=== PATIENT | female | born 1950 | race Caucasian/White ===

== ENCOUNTER → 2023-04-28 12:41 | Outpatient (BNVA) | payer MEDICARE, SELFPAY | PROVIDERS: PCP Family Medicine; Referring Provider Family Medicine; Visit Provider Student in an Organized Health Care Education/Training Program | DX: G47.34 Idiopathic sleep related nonobstructive alveolar hypoventilation (principal); J44.9 Chronic obstructive pulmonary disease, unspecified; Z79.51 Long term (current) use of inhaled steroids; F17.210 Nicotine dependence, cigarettes, uncomplicated | CPT/HCPCS: 94618; 99204 ==

== ENCOUNTER → 2023-08-03 12:47 | Outpatient (BNVA) | payer OTHER, SELFPAY | PROVIDERS: PCP Family Medicine; Referring Provider Family Medicine; Visit Provider Physician Assistant Surgical | DX: J44.9 Chronic obstructive pulmonary disease, unspecified (principal); G47.34 Idiopathic sleep related nonobstructive alveolar hypoventilation; F17.210 Nicotine dependence, cigarettes, uncomplicated | CPT/HCPCS: 99214 ==

== ENCOUNTER 2024-06-22 02:25 | Outpatient (CLI) | payer MEDICARE, SELFPAY ==
--- NOTE | 2024-06-22 08:53 | DI.MAMMO_ITS ---
Exam(s) MAMMO SCREENING EXAM: MAMMO SCREENING CLINICAL HISTORY: screening,z12.39 TECHNIQUE: Mammograms were interpreted according to the usual protocol including computer analysis w [employer] CAD system, tomosynthesis and C-view imaging. COMPARISON: 2017 and 2022 FINDINGS: The breasts are composed of mainly fatty density , Breast Density category A. No suspicious masses or suspicious microcalcifications are seen. No skin thickening or abnormal axillary lymph nodes are seen. There has been no significant change from prior exams. IMPRESSION: BI-RADS Category 1, Negative mammogram Yearly screening mammography is recommended. Breast Density - Category A, fatty density. A negative radiographic report should not delay biopsy if a dominant or clinically suspicious mass is present. Up to ten percent of cancers are not identified on mammography. A negative report may reinforce clinical impression. Adenosis and dense breasts may obscure an underlying neoplasm. False positive reports average 6 to 10%. Patient will receive a letter notifying them of these results.
== END 2024-06-22 02:45 ==
LOC: DI 02:25
PROVIDERS: PCP Nurse Practitioner Family; Visit Provider Nurse Practitioner Family
DX: Z12.31 Encounter for screening mammogram for malignant neoplasm of breast (principal); G25.81 Restless legs syndrome; L60.0 Ingrowing nail; L60.2 Onychogryphosis; M79.675 Pain in left toe(s); E11.9 Type 2 diabetes mellitus without complications; B35.1 Tinea unguium; L60.8 Other nail disorders
CPT/HCPCS: 11750; 77063; 77067; 99214

== ENCOUNTER 2024-06-22 03:16 | Outpatient (CLI) | payer MEDICARE, SELFPAY ==
[2024-06-22 08:18] LABS: HCT 39.9 % (36.0-46.0); MCHC 32.6 % (32.0-36.0); MCV 89 fL (80-95); MPV 8.9 fL (8.0-11.0); Platelet Count 357 10^3/uL (130-400); RBC 4.49 10^6/uL (3.93-5.22); RDW 14.5 % (11.7-14.6); RDW-SD 46.4 fL; WBC 11.56 10^3/uL (4.4-10.8)
[2024-06-22 08:48] LABS: ALT 13 U/L (14-59); AST 14 U/L (15-37); Albumin 3.3 g/dL (3.4-5.0); Alkaline Phosphatase 106 U/L (46-116); Anion Gap 5.4 mmol/L (3-11); BUN 25 mg/dL (7-18); CO2 36.6 mmol/L (21.0-32.0); CREATININE 1.2 mg/dL (0.55-1.02); Calcium 9.9 mg/dL (8.5-10.1); Calculated LDL 99 mg/dL (<100); Chloride 95 mmol/L (98-107); Cholesterol 181 mg/dL (<200); Estimated GFR 48.09 (mL/min/1.73m2); Ferritin 47 ng/mL (8-252); Glucose 108 mg/dL (74-106); HDL Cholesterol 55 mg/dL (40-60); Potassium 3.1 mmol/L (3.5-5.1); Sodium 137 mmol/L (136-145); Total Protein 7.7 g/dL (6.4-8.2); Triglyceride 135 mg/dL (<150)
== END 2024-06-22 03:17 | disposition home or self-care (01) ==
LOC: LBO 03:16
PROVIDERS: PCP Nurse Practitioner Family; Visit Provider Nurse Practitioner Family
DX: E11.9 Type 2 diabetes mellitus without complications (principal); R79.0 Abnormal level of blood mineral; G25.81 Restless legs syndrome
CPT/HCPCS: 36415; 80053; 80061; 85027; 82728

== ENCOUNTER 2024-07-07 19:53 | Emergency (ER) | payer MEDICARE, SELFPAY ==
[2024-07-07] VITALS (19 sets, daily range): BP systolic 97–116; BP diastolic 53–92; PULSE 85–102; RESP 15–28; TEMP 36.3; O2SAT 80–94
--- NOTE | 2024-07-07 20:00 | DI.CT_ITS ---
Exam(s) CT ABDOMEN PELVIS W EXAM: CT ABDOMEN PELVIS W CLINICAL HISTORY: left sided abdominal pain TECHNIQUE: Imaging Protocol: Axial computed tomography images with coronal and sagittal reformatted images were created and reviewed. CONTRAST MATERIAL: Intravenous: Omnipaque 350 Contrast volume:75 mL Oral: No COMPARISON: CT CT ABD/PELVIS W/ CONTR NO PO from 05/24/2024 FINDINGS: ABDOMEN: Lung Bases: No acute abnormality. Liver: Normal density. No measurable mass. There is a stable tiny cyst in the right lobe of the liver . No follow-up is recommended. Portal, Superior Mesenteric, and Splenic Veins: Unremarkable. Gallbladder and Biliary Tract: No radiodense calculus or dilation. Pancreas: Normal density, no abnormal calcifications or inflammatory process. Spleen: Normal. Adrenals: No masses seen. Kidneys: Normal size, contour and axis. No radiodense stones or obstructive uropathy. No masses seen. Abdominal Aorta: Abdominal portion non-dilated. Atherosclerotic calcification is present. Bowel: There are diverticula seen in the colon without evidence of acute diverticulitis. There is a normal appendix. There is a left-sided spigelian hernia containing a short segment of small bowel. The small bowel proximally is dilated with air-fluid levels. The distal small bowel is of normal vania iber. The findings are consistent with obstruction. There is no evidence of pneumatosis. The stoma ch is distended. Postsurgical changes are again seen in the stomach. Appendix is unremarkable. Peritoneal Cavity: No ascites, collection or mesenteric inflammatory response. No free air. Lymph Nodes: Within normal limits. Bones: Within normal limits for the patient's age. There is again seen anterior subluxation of L4 on L5 and L5 on S1. Soft Tissues: There is a small fat containing left inguinal hernia and small fat containing umbilical hernia. PELVIS: Bladder: Symmetric distention, no gross wall thickening. Reproductive Organs: The uterus is absent. Lymph Nodes: Within normal limits. Bones: Within normal limits for the patient's age. IMPRESSION: Left-sided spigelian hernia with an incarcerated small bowel loop and proximal small bowel obstructio n. No evidence of pneumoperitoneum or pneumatosis. RADIATION DOSE DELIVERED: 451.61mGy.cm Total DLP DATA REPOSITORY: All CT scans at this facility are submitted to the National Radiology Data Registry (NRDR) Dose Index Registry (DIR) with the [employer] [place] [employer] ([employer]). RADIATION OPTIMIZATION: All CT scans at this facility use at least one of these dose optimization te chniques: automated exposure control; mA and/or kV adjustment per patient size (includes targeted exa ms where dose is matched to clinical indication); or iterative reconstruction.
--- OUTSIDE RECORDS SUMMARY | 2024-07-07 20:02 | XMS_ITS | Continuity of Care Document ---
Author Organization [facility] Address [address] [place] [address] Care Team Providers Care Finished Goods Planner Name Role Phone Dilan Hernandez Primary Care Physician Encounter [facility] Date(s): 09/28/23 - 09/28/23 [facility] [address] [place] [address] Discharge Disposition: Home Allergies, Adverse Reactions, Alerts No Known Medication Allergies Assessment and Plan Future Appointments Future Scheduled Tests Laboratory* Thyroid Stimulating Hormone 08/26/23 * Drug Screen Urine 09/28/23 Immunizations Given and Recorded Vaccine Date Status Refusal Reason influenza, unspecified formulation 02/16/23 Record ed influenza, unspecified formulation 1 04/09/20 Mika rded influenza, unspecified formulation 2 03/24/19 Mika rded influenza, unspecified formulation 3 05/09/16 Mika rded pneumococcal 23-polyvalent vaccine 5 05/15/22 Mika rded pneumococcal 23-polyvalent vaccine 08/14/08 Record ed SARS-COV-2 (COVID-19) vaccine, unspecifi 6 03/18/22 Recorded influenza virus vaccine, live 04/30/21 Recorded influenza virus vaccine, live 03/16/18 Recorded influenza virus vaccine, live 05/25/15 Recorded SARS-CoV-2 (COVID-19) mRNA-1273 vaccine 09/17/20 R ecorded SARS-CoV-2 (COVID-19) mRNA-1273 vaccine 08/21/20 R ecorded tetanus-diphth toxoids (Td) adult/adol 10/18/18 Re corded pneumococcal 13-valent conjugate vaccine 04/19/18 Recorded influenza virus vaccine, inactivated 05/03/17 Mika rded influenza virus vaccine, inactivated 04/26/14 Mika rded influenza virus vaccine, inactivated 03/10/13 Mika rded influenza virus vaccine, inactivated 03/25/12 Mika rded influenza virus vaccine, inactivated 03/19/10 Mika rded influenza virus vaccine, inactivated 03/08/10 Mika rded influenza virus vaccine, inactivated 05/21/09 Mika rded influenza virus vaccine, inactivated 05/16/09 Mika rded influenza virus vaccine, inactivated 03/16/08 Mika rded influenza virus vaccine, inactivated 03/17/07 Mika rded zoster vaccine live 10/06/12 Recorded rubella virus vaccine 06/08/00 Recorded hepatitis B adult vaccine 06/08/00 Recorded measles/mumps/rubella virus vaccine 06/08/00 Recor ded varicella virus vaccine 06/08/00 Recorded Not Given Vaccine Date Status Refusal Reason influenza, unspecified formulation 4 01/29/22 Not Given Patient Refuses 1Result Comment: influenza, high-dose, quadrivalent VIS given: 04-09-2020 VIS published date: Inactivated Influenza 01/20/2019 Administered by NOEMÍ HERNANDEZ, [employer] Section Supervisor 04-09-2020 2Result Comment: influenza, trivalent, adjuvanted VIS given: 03-24-2019 VIS published date: Inactivated Influenza 01/20/2019 Administered by SOWMYA MCMILLAN, [employer] Section Supervisor 03-24-2019 3Result Comment: influenza, high dose seasonal Administered by: SULTANA 4Result Comment: William 5Result Comment: Moderna bivalent, 6+ months, blue cap 6Result Comment: influenza, high-dose, quadrivalent Patient Declined Last Modified by SOWMYA MCMILLAN, [employer] Section Supervisor 06-21-2020, 11:26 Medications Albuterol (Eqv-ProAir HFA) 90 mcg/inh inhalation aerosol 2 puffs, Inhale, every 4 hr, # 8.5 g, 6 Refill(s), Pharmacy: [facility], 155, cm, 05/04/23 10:37:00 EST, Height, 81.6, kg, 07/01/23 15:10:00 EST, Weight Dosing Start Date: 07/01/23 Status: Ordered apixaban 5 mg oral tablet 5 mg = 1 tab, Oral, BID, # 60 tab, 3 Refill(s), Pharmacy: [id number], 155, cm, 05/04/23 10:37:00 EST, Height, 81.6, kg, 07/01/23 15:10:00 EST, Weight Dosing Start Date: 07/13/23 Status: Ordered Breztri Aerosphere 160 mcg-9 mcg-4.8 mcg/inh inhalation aerosol 2 puffs, Inhale, BID, rinse mouth and throat after use, # 5.9 g, 0 Refill(s) Start Date: 09/07/23 Status: Ordered COPD J44.1 COPD J44.1, Please include tubing and mouthpiece, Supply, See instructions, # 1 EA, 0 Refill(s) Start Date: 12/15/22 Status: Ordered escitalopram 10 mg oral tablet 10 mg = 1 tab, Oral, Daily, TAKE 1 TABLET BY MOUTH ONCE DAILY, # 90 tab, 3 Refill(s), Pharmacy: [facility]156, 155, cm, 05/04/23 10:37:00 EST, Height, 81.6, kg, 07/01/23 15:10:00 EST, Weight Dosing Start Date: 07/01/23 Status: Ordered ferrous sulfate 325 mg (65 mg elemental iron) oral delayed release tablet 325 mg = 1 tab, Oral, Daily, # 90 tab, 0 Refill(s), Pharmacy: [place] [id number], 156, cm, 03/27/22 9:33:00 EDT, Height/Length Dosing, 68.04, kg, 03/27/22 9:33:00 EDT, Weight Dosing Start Date: 08/15/22 Status: Ordered ibuprofen 200 mg =, Oral, PRN as needed for pain, 0 Refill(s) Start Date: 07/01/23 Status: Ordered ipratropium-albuterol 0.5 mg-2.5 mg/3 mL inhalation solution See Instructions, USE 1 AMPULE IN NEBULIZER EVERY 4 HOURS NEEDED FOR SHORTNESS OF BREATH FOR WHEEZING, # 90 mL, 4 Refill(s), Pharmacy: [facility] 4156, 155, cm, 05/04/23 10:37:00 EST, Height, 81.51, kg, 07/23/23 10:33:00 EST, Weight Dosing Start Date: 08/03/23 Status: Ordered Medrol Dosepak 4 mg oral tablet 1 packets, Oral, Daily, as directed on package labeling, # 21 tab, 0 Refill(s), Pharmacy: [place] [id number], 153.3, cm, 09/17/23 12:47:00 EDT, Height, 81.65, kg, 09/17/23 12:54:00 EDT, Weight Dosing Start Date: 09/28/23 Stop Date: 10/04/23 Status: Ordered omeprazole 40 mg oral delayed release capsule 40 mg = 1 cap, Oral, Daily, # 90 cap, 3 Refill(s), Pharmacy: [facility], 155, cm, 12/04/22 20:52:00 EDT, Height/Length Dosing, 69.4, kg, 12/04/22 20:52:00 EDT, Weight Dosing Start Date: 01/29/23 Status: Ordered Oxygen Therapy Supply, See instructions, # 1 EA, 0 Refill(s) Start Date: 11/19/22 Status: Ordered pramipexole 1 mg oral tablet See Instructions, Take 2 tablets by mouth twice daily, # 120 tab, 6 Refill(s), Pharmacy: [place] [id number], 155, cm, 05/04/23 10:37:00 EST, Height, 78.97, kg, 05/14/23 10:34:00 EST, Weight Dosing Start Date: 05/29/23 Status: Ordered torsemide 10 mg oral tablet 10 mg = 1 tab, Oral, Daily, # 30 tab, 0 Refill(s), Pharmacy: [place] [address], 153.3, cm, 09/17/23 12:47:00 EDT, Height, 81.65, kg, 09/17/23 12:54:00 EDT, Weight Dosing Start Date: 09/17/23 Status: Ordered traMADol 50 mg oral tablet 100 mg = 2 tab, Oral, every 8 hr, PRN as needed for pain, # 168 tab, 0 Refill(s), Pharmacy: [place] [address], 154, cm, 08/21/23 11:26:00 EDT, Height, 82.7, kg, 08/27/23 8:05:00 EDT, Weight Dosing Start Date: 08/31/23 Status: Ordered Vitamin C 500 mg oral tablet 500 mg = 1 tab, Oral, Daily, # 90 tab, 0 Refill(s), Pharmacy: [facility], 156, cm, 03/27/22 9:33:00 EDT, Height/Length Dosing, 68.04, kg, 03/27/22 9:33:00 EDT, Weight Dosing Start Date: 08/15/22 Status: Ordered Problem List Condition Confirmation Course Effective Dates Status H ealth Status Informant Anxiety disorder Confirmed Active Chronic obstructive lung disease Confirmed Active Chronic pain disorder Confirmed Active Claustrophobia Confirmed Active Excessive daytime sleepiness Confirmed Active Degeneration of lumbar intervertebral disc 1 Confirmed 08/23/20 Active Diarrhea Confirmed 09/06/18 Active SOB (shortness of breath) on exertion Confirmed Active Gastroesophageal reflux disease Confirmed Active Right hip pain Confirmed Active 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 Hyponatremia Confirmed Active Insomnia Confirmed Active Low back pain Confirmed 10/02/20 Active Lumbar spondylosis 2 Confirmed 10/02/20 Active Lumbosacral radiculopathy Confirmed Active Mixed urinary incontinence Confirmed Active Nicotine dependence Confirmed Active Overweight Confirmed Active Peptic ulcer Confirmed Active Pyloric stenosis Confirmed 01/19/19 Active Restless legs Confirmed 03/05/20 Active Hypoxemia associated with sleep Confirmed Active Tobacco user Confirmed Active 1Outside Source Comment: Overview: Added automatically from request for surgery [id number] 2Outside Source Comment: Overview: Added automatically from request for surgery [id number] Procedures Procedure Date Related Diagnosis Body Site Status Vaginal total hysterectomy, A&P repair, uterosacral vag-vault suspension, prolapse 1 04/20/21 Completed Laparoscopic bypass gastroje junostomy 2 02/29/20 Completed EGD - Esophagogastroduodenoscopy 3 08/08/19 Completed Colonoscopy 4 04/12/19 Completed Pyloroplasty 5 03/22/10 Completed Right-Oophorectomy 6 06/07/79 Comp leted Ectopic w/ left salpingectomy 7 Completed Tubal ligation Completed 1A&P repair, uterosacral vag-vault suspension, prolapse [facility] 3gastritis, 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 01/03/15 right sided diverticulosis, polyp; 05/17/2009, 5 year call-back 5[facility] 6right, d/t cyst [id number] with Left salpingectomy Social History Social History Type Response Smoking Status Smoking tobacco use: Current everyday tobacco user;Never; Number used per day: 1.5 PPD; entered on: 06/15/23 Sex Female History and physical note * Event Display: History and Physical Update Authored Date: [id number] Patient Care team information Care Team Personnel Name: Dilan Hernandez MD Position: Physician Member Role: Informed Provider Address: Address: [address] Care Team Related Persons Name: LIAM QUIGLEY Address: [address] [address] Address: Home [address] [place] [phone] Address: Mailing [address] [place] [address] [phone] Name: GRACIELA COUCH Address: Home [address] [place] [phone]
--- OUTSIDE RECORDS SUMMARY | 2024-07-07 20:02 | XMS_ITS | Continuity of Care Document ---
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 COPD exacerbat ion Comment: Diagnosis: Shortness of breath Comment: Future Appointments Future Scheduled Tests Laboratory* Basic Metabolic Panel 09/29/22 * Hemoglobin A1c 09/29/22 Functional Status 12/04/22 Other exposure to Infectious Disease Non e Immunizations Given and Recorded Vaccine Date Status Refusal Reason pneumococcal 23-polyvalent vaccine 1 05/15/22 Mika rded pneumococcal 23-polyvalent vaccine 08/14/08 Record ed influenza virus vaccine, live 04/30/21 Recorded influenza virus vaccine, live 03/16/18 Recorded influenza virus vaccine, live 05/25/15 Recorded SARS-CoV-2 (COVID-19) mRNA-1273 vaccine 09/17/20 R ecorded SARS-CoV-2 (COVID-19) mRNA-1273 vaccine 08/21/20 R ecorded influenza, unspecified formulation 2 04/09/20 Mika rded influenza, unspecified formulation 3 03/24/19 Mika rded influenza, unspecified formulation 4 05/09/16 Mika rded tetanus-diphth toxoids (Td) adult/adol 10/18/18 Re corded [...] Date Status Refusal Reason influenza, unspecified formulation 5 01/29/22 Not Given Patient Refuses 1Result Comment: William 2Result Comment: influenza, high-dose, quadrivalent VIS given: 04-09-2020 VIS published date: Inactivated Influenza 01/20/2019 Administered by NOEMÍ HERNANDEZ Grab Setter 04-09-2020 3Result Comment: influenza, trivalent, adjuvanted VIS given: 03-24-2019 VIS published date: Inactivated Influenza 01/20/2019 Administered by SOWMYA MCMILLAN Grab Setter 03-24-2019 4Result Comment: influenza, high dose seasonal Administered by: SULTANA 5Result Comment: influenza, high-dose, quadrivalent Patient Declined Last Modified by SOWMYA MCMILLAN Grab Setter 06-21-2020, 11:26 Medications Albuterol (Eqv-ProAir HFA) 90 mcg/inh inhalation aerosol 2 puffs, Inhale, every 4 hr, # 8.5 g, 6 Refill(s), Pharmacy: [facility], 156, cm, 03/27/22 9:33:00 EDT, Height/Length Dosing, 68.04, kg, 03/27/22 9:33:00 EDT, Weight Dosing Start Date: 09/29/22 Status: Ordered Ativan 0.5 mg oral tablet See Instructions, take 30-60 minutes prior to procedure., # 1 tab, 0 Refill(s), Pharmacy: [facility], 156, cm, 03/27/22 9:33:00 EDT, Height/Length Dosing, 68.04, kg, 03/27/22 9:33:00 EDT, Weight Dosing Start Date: 09/29/22 Status: Ordered diazePAM 2 mg oral tablet See Instructions, Take one tablet 1 hr prior to procedure and 1 tablet right before procedure., # 2tab, 0 Refill(s), Pharmacy: [place] [address], 156, cm, 03/27/22 9:33:00 EDT, Height/Length Dosing, 68.04, kg, 03/27/22 9:33:00 EDT, Weight Dosing Start Date: 10/10/22 Status: Ordered doxycycline hyclate 100 mg oral capsule 100 mg = 1 cap, Oral, BID, X 7 days, # 14 cap, 0 Refill(s), 12/11/22 22:46:00 EDT, Pharmacy: [facility], 155, cm, 12/04/22 20:52:00 EDT, Height/Length Dosing, 69.4, kg, 12/04/22 20:52:00 EDT, Weight Dosing Start Date: 12/04/22 Stop Date: 12/11/22 Status: Ordered escitalopram 10 mg oral tablet 10 mg = 1 tab, Oral, Daily, TAKE 1 TABLET BY MOUTH ONCE DAILY, # 90 tab, 3 Refill(s), Pharmacy: [facility], 156, cm, 03/27/22 9:33:00 EDT, Height/Length Dosing, 68.04, kg, 03/27/22 9:33:00EDT, Weight Dosing Start Date: 05/12/22 Status: Ordered ferrous sulfate 325 mg (65 mg elemental iron) oral delayed release tablet 325 mg = 1 tab, Oral, Daily, # 90 tab, 0 Refill(s), Pharmacy: [facility], 156, cm, 03/27/22 9:33:00 EDT, Height/Length Dosing, 68.04, kg, 03/27/22 9:33:00 EDT, Weight Dosing Start Date: 08/15/22 Status: Ordered nystatin 100,000 units/mL oral suspension 400,000 units = 4 mL, Oral, QID, # 120 mL, 0 Refill(s), Pharmacy: [facility], 156, cm, 03/27/22 9:33:00 EDT, Height/Length Dosing, 68.04, kg, 03/27/22 9:33:00 EDT, Weight Dosing Start Date: 09/29/22 Stop Date: 10/06/22 Status: Ordered omeprazole 40 mg oral delayed release capsule 40 mg = 1 cap, Oral, Daily, 0 Refill(s) Start Date: 11/11/21 Status: Ordered Oxygen Therapy Supply, See instructions, # 1 EA, 0 Refill(s) Start Date: 11/19/22 Status: Ordered pramipexole 3 mg oral tablet, extended release 180 EA, TAKE 1 TABLET BY MOUTH TWICE DAILY, 0 Refill(s) Start Date: 07/10/22 Status: Ordered predniSONE 20 mg oral tablet 40 mg = 2 tab, Oral, Daily, # 8 tab, 0 Refill(s), Pharmacy: [facility], 155, cm, 12/04/22 20:52:00 EDT, Height/Length Dosing, 69.4, kg, 12/04/22 20:52:00 EDT, Weight Dosing Start Date: 12/04/22 Status: Ordered pregabalin 50 mg oral capsule 50 mg = 1 cap, Oral, TID, # 90 cap, 0 Refill(s) Start Date: 09/29/22 Status: Ordered Tessalon Perles 100 mg oral capsule 100 mg = 1 cap, Oral, TID, PRN as needed for cough, # 21 cap, 0 Refill(s), Pharmacy: [facility], 156, cm, 03/27/22 9:33:00 EDT, Height/Length Dosing, 68.04, kg, 03/27/22 9:33:00 EDT, Weight Dosing Start Date: 11/07/22 Stop Date: 11/14/22 Status: Ordered Trelegy Ellipta 100 mcg-62.5 mcg-25 mcg/inh inhalation powder 1 puffs, Inhale, Daily, at the same time every day, # 60 EA, 4 Refill(s), Pharmacy: [facility], 156, cm, 03/27/22 9:33:00 EDT, Height/Length Dosing, 68.04, kg, 03/27/22 9:33:00 EDT, WeightDosing Start Date: 10/13/22 Status: Ordered Trelegy Ellipta 100 mcg-62.5 mcg-25 mcg/inh inhalation powder INHALE 1 PUFF ONCE DAILY AT THE SAME TIME EACH DAY Start Date: 10/27/22 Status: Ordered Trelegy Ellipta 100 mcg-62.5 mcg-25 mcg/inh inhalation powder See Instructions, INHALE 1 PUFF ONCE DAILY AT THE SAME TIME EACH DAY, # 1 EA, 12 Refill(s) Start Date: 10/28/22 Status: Ordered Vitamin C 500 mg oral tablet 500 mg = 1 tab, Oral, Daily, # 90 tab, 0 Refill(s), Pharmacy: [facility], 156, cm, 03/27/22 9:33:00 EDT, Height/Length Dosing, 68.04, kg, 03/27/22 9:33:00 EDT, Weight Dosing Start Date: 08/15/22 Status: Ordered Mental Status 12/04/22 Eye Opening Response [place] Spontaneous ly Best Verbal Response Whit Oriented Best Motor Response Whit Obeys comman ds [place] Coma Score 15 Problem List Condition Confirmation Course Effective Dates Status H ealth Status Informant Anxiety disorder Confirmed Active Chronic obstructive lung disease Confirmed Active Claustrophobia Confirmed Active Excessive daytime sleepiness Confirmed Active Diarrhea Confirmed 09/06/18 Active Gastroesophageal reflux disease Confirmed Active Right hip pain Confirmed Active 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 Insomnia Confirmed Active Lumbosacral radiculopathy Confirmed Active Mixed urinary incontinence Confirmed Active Nicotine dependence Confirmed Active Overweight Confirmed Active Pyloric stenosis Confirmed 01/19/19 Active Restless legs Confirmed 03/05/20 Active Procedures Procedure Date Related Diagnosis Body Site [...] 5 year call-back 5Sisson 6right, d/t cyst with Left salpingectomy Vital Signs Most recent to oldest [Reference Range]: 1 2 Temperature Temporal Artery [36-38 Deg C ] 35.7 Deg C *LOW* (12/04/22 8:48 PM) Peripheral Pulse Rate [60-100 bpm] 89 bp m (12/04/22 10:59 PM) 81 bpm (12/04/22 8:48 PM) Respiratory Rate [12-24 br/min] 22 br/mi n (12/04/22 8:48 PM) Blood Pressure [90-140/60-90 mmHg] 154/8 7mmHg *HI* (12/04/22 10:59 PM) 108/54mmHg (12/04/22 8:48 PM) Weight Dosing 69.40 kg (12/04/22 8:52 PM) Weight Estimated 69.40 kg (12/04/22 8:48 PM) Height/Length Dosing 155.000 cm (12/04/22 8:52 PM) Height/Length Estimated 155.000 cm (12/04/22 8:48 PM) Social History Social History Type Response Smoking Status Smoking tobacco use: Current everyday tobacco user;Never; Number used per day: 1.5 PPD; entered on: 03/27/22 Sex Female Hospital Discharge Instructions Patient Education 12/04/2022 21:45:43 Chronic Obstructive Pulmonary Disease Exacerbation, [id number] Chronic Obstructive Pulmonary Disease Exacerbation Chronic obstructive pulmonary disease (COPD) is a long-term (chronic) lung problem. In COPD, the flow of air from the lungs is limited. COPD exacerbations are times that breathing gets worse and you need more than your normal treatment. Without treatment, they can be life-threatening. If they happen often, your lungs can become more damaged. What are the causes? Having infections that affect your airways and lungs. ??? Being exposed to: ??? Smoke. ??? Air pollution. ??? Chemical fumes. ??? Dust. ??? Things that can cause an allergic reaction (allergens). ??? Not taking your usual COPD medicines as told. ??? Having medical problems already, such as heart failure or infections not involving the lungs. In many cases, the cause is not known. What increases the risk? Smoking. ??? Being an older adult. ??? Having frequent prior COPD exacerbations. What are the signs or symptoms? Increased coughing. ??? Increased mucus from your lungs. ??? Increased wheezing. ??? Increased shortness of breath. ??? Fast breathing and finding it hard to breathe. ??? Chest tightness. ??? Less energy than usual. ??? Sleep disruption from symptoms. ??? Confusion. ??? Increased sleepiness. Often, these symptoms happen or get worse even with the use of medicines. How is this treated? Treatment for this condition depends on how bad it is and the cause of the symptoms. You may need to stay in the hospital for treatment. Treatment may include: ??? Taking medicines. ??? Using oxygen. ??? Being treated with different ways to clear your airway, such as using a mask to deliver oxygen. Follow these instructions at home: Medicines ??? Take mujm-ezw-mvboobj and prescription medicines only as told by your doctor. ??? Use all inhaled medicines the correct way. ??? If you were prescribed an antibiotic or steroid medicine, take it as told by your doctor. Do not stop taking it even if you start to feel better. Lifestyle ??? Do not smoke or use any products that contain nicotine or tobacco. If you need help quitting, ask your doctor. ??? Eat healthy foods. ??? Exercise regularly. ??? Get enough sleep. Most adults need 7 or more hours per night. ??? Avoid tobacco smoke and other things that can bother your lungs. ??? Several times a day, wash your hands with soap and water for at least 20 seconds. If you cannotuse soap and water, use hand looping inspector. This may help keep you from getting an infection. ??? During flu season, avoid areas that are crowded with people. General instructions ??? Drink enough fluid to keep your pee (urine) pale yellow. Do not do this if your doctor has toldyou not to. ??? Use a cool mist machine (vaporizer). ??? If you use oxygen or a machine that turns medicine into a mist (nebulizer), continue to use it as told. ??? Keep all follow-up visits. How is this prevented? Keep up with shots (vaccinations) as told by your doctor. Be sure to get a yearly flu (influenza) shot. ??? If you smoke, quit smoking. Smoking makes the problem worse. ??? Follow all instructions for rehabilitation. These are steps you can take to make your body workbetter. ??? Work with your doctor to develop and follow an action plan. This tells you what steps to take when you experience certain symptoms. Contact a doctor if: ??? Your COPD symptoms get worse than normal. Get help right away if: ??? You are short of breath and it gets worse, even when you are resting. ??? You have trouble talking. ??? You have chest pain. ??? You cough up blood. ??? You have a fever. ??? You keep vomiting. ??? You feel weak or you pass out (faint). ??? You feel confused. ??? You are not able to sleep because of your symptoms. ??? You have trouble doing daily activities. These symptoms may be an emergency. Get help right away. Call your local emergency services (911 int [place] ??? Do not wait to see if the symptoms will go away. ??? Do not drive yourself to the hospital. Summary ??? COPD exacerbations are times that breathing gets worse and you need more treatment than normal. ??? COPD exacerbations can be very serious and may cause your lungs to become more damaged. ??? Do not smoke. If you need help quitting, ask your doctor. ??? Stay up to date on your shots. Get a flu shot every year. This information is not intended to replace advice given to you by your health care provider. Make sure you discuss any questions you have with your health care provider. Document Revised: 04/17/2021 Document Reviewed: 04/02/2021 Elsevier Patient Education ?? 2021 [employer] Follow Up Care 12/04/2022 20:48:27 With:Dilan Hernandez MD Address: [facility] [address] [address]- When:1 to 2 weeks only if needed Physician Emergency department Note * Miguel Arauz MD: PERFORM Event Display: ED Note Physician Authored Date: [id number] AUBREE COUCH :1950 Age:72 years Sex:Female Visit Date:12/04/2022 Primary Care Physician: Dilan Hernandez MD Basic Information Time Seen: Miguel Arauz MD / 12/04/2022 21:22 Chief Complaint patient has had shortness of breath since beginning of september when she was admitted to hospital in [place] for involuntary shaking. history of COPD. uses albuterol inhaler and trilogy. also uses oxygen at night. History Of Present Illness: Patient reports several months of worsening shortness of breath. ??She has not seen anyone yet. ??She does have inhalers. ??She continues to smoke. ??No fever. ??She does have a lot of postnasal dripand bringing up??fairly clear sputum. Review of Systems: Chest pain or fever. ??No vomiting or diarrhea. Physical Exam Vitals & Measurements T:??35.7?C ??(Temporal Artery)?? HR:??81??(Peripheral)?? RR:??22?? BP:??108/54?? SpO2:??92%?? HT:??155.000??cm?? WT:??69.40??kg??(Estimated)?? O2 Therapy:??Room air?? Alert pleasant cooperative in no distress. ??Occasional wet cough. ??HEENT normocephalic atraumatic. ??Extraocular movements are intact no conjunctivitis. ??Nose clear. ??Oropharynx is clear. ??Neck is supple without lymphadenopathy. ??Trachea midline. ??Lung sounds are severely diminished throughout.?? No tachypnea or??accessory muscles in use. ??Heart is regular rate and rhythm. ??Abdomen soft nontender nondistended. ??No lower extremity edema. ??Neurologic exam is nonfocal. ??Skin is??warm and dry??slightly cyanotic in the face??versus??predominance of veins. Medical Decision Making: Chest??2 view as read by me shows some??atelectasis or scarring in the bases but no infiltrate??effusion??cardiomegaly or pneumothorax ?? We will treat her with doxycycline and short course of prednisone and [facility] ??She already has inhalers. ??Encouraged her to quit smoking. Procedure No Qualifying Data Assessment/Plan 1.??COPD exacerbation??J44.1 Ordered: doxycycline hyclate 100 mg oral capsule, 100 mg = 1 cap, Oral, BID, X 7 days, # 14 cap, 0 Refill(s), 12/11/22 22:46:00 EDT, Pharmacy: [facility], 155, cm, 12/04/22 20:52:00 EDT, Height/Length Dosing, 69.4, kg, 12/04/22 20:52:00 EDT, Weight Dosing predniSONE 20 mg oral tablet, 40 mg = 2 tab, Oral, Daily, # 8 tab, 0 Refill(s), Pharmacy: [facility], 155, cm, 12/04/22 20:52:00 EDT, Height/Length Dosing, 69.4, kg, 12/04/22 20:52:00 EDT,Weight Dosing ?? Orders: doxycycline monohydrate, 100 mg = 1 cap, Oral, Cap, Once, Antibiotic Indication Other (specify in order comments), First Dose: 12/04/22 22:45:00 EDT, Stop Date: 12/04/22 22:45:00 EDT, Physician Stop,STAT predniSONE, 40 mg = 2 tab, Oral, Tab, Once, First Dose: 12/04/22 22:45:00 EDT, Stop Date: 12/04/22 22:45:00 EDT, Physician Stop, STAT Discharge Patient, 12/04/22 22:45:00 EDT, Home Independently, Constant Indicator XR Chest 2 Views, 12/04/22 21:26:00 EDT, Stat, Reason: dyspnea, Transport Mode: Stretcher, Exam to be performed outside organization? Patient Education Chronic Obstructive Pulmonary Disease Exacerbation, [id number] Follow Up With When Contact Information Dilan Hernandez MD Within 1 to 2 weeks, only if needed [place] [id number]- Additional Instructions: Medication Reconciliation New Prescription doxycycline (doxycycline hyclate 100 mg oral capsule)1 Capsules Oral (given by mouth) 2 times a dayfor 7 Days. Refills: 0. ?? predniSONE (predniSONE 20 mg oral tablet)2 tab Oral (given by mouth) every day. Refills: 0. ?? Unchanged albuterol (Albuterol (Eqv-ProAir HFA) 90 mcg/inh inhalation aerosol)2 Puffs Inhale (breathe in) every 4 hours. Refills: 6. ?? ascorbic acid (Vitamin C 500 mg oral tablet)1 tab Oral (given by mouth) every day. Refills: 0. ?? benzonatate (Tessalon Perles 100 mg oral capsule)1 Capsules Oral (given by mouth) 3 times a day as needed as needed for cough for 7 Days. Refills: 0. ?? diazePAM (diazePAM 2 mg oral tablet)Take one tablet 1 hr prior to procedure and 1 tablet right before procedure.. Refills: 0. ?? Durable Medical Equipment for Prescription (Oxygen Therapy)See instructions. ?? escitalopram (escitalopram 10 mg oral tablet)1 tab Oral (given by mouth) every day. TAKE 1 TABLET BY MOUTH ONCE DAILY. Refills: 3. ?? ferrous sulfate (ferrous sulfate 325 mg (65 mg elemental iron) oral delayed release tablet)1 tab Oral (given by mouth) every day. Refills: 0. ?? fluticasone/umeclidinium/vilanterol (Trelegy Ellipta 100 mcg-62.5 mcg-25 mcg/inh inhalation powder)1 Puffs Inhale (breathe in) every day. at the same time every day. Refills: 4. ?? fluticasone/umeclidinium/vilanterol (Trelegy Ellipta 100 mcg-62.5 mcg-25 mcg/inh inhalation powder)INHALE 1 PUFF ONCE DAILY AT THE SAME TIME EACH DAY. Refills: 12. ?? fluticasone/umeclidinium/vilanterol (Trelegy Ellipta 100 mcg-62.5 mcg-25 mcg/inh inhalation powder)INHALE 1 PUFF ONCE DAILY AT THE SAME TIME EACH DAY. ?? LORazepam (Ativan 0.5 mg oral tablet)take 30-60 minutes prior to procedure.. Refills: 0. ?? nystatin (nystatin 100,000 units/mL oral suspension)4 Milliliters Oral (given by mouth) 4 times a day for 7 Days. Refills: 0. ?? omeprazole (omeprazole 40 mg oral delayed release capsule)1 Capsules Oral (given by mouth) every day. ?? pramipexole (pramipexole 3 mg oral tablet, extended release)180 EA, TAKE 1 TABLET BY MOUTH TWICE DAILY. ?? pregabalin (pregabalin 50 mg oral capsule)1 Capsules Oral (given by mouth) 3 times a day. Problem List/Past Medical History Ongoing Anxiety disorder Chronic obstructive lung disease Claustrophobia Diarrhea Excessive daytime sleepiness Gastroesophageal reflux disease History of pyloric channel ulcer Insomnia Lumbosacral radiculopathy Mixed urinary incontinence Nicotine dependence Overweight Pyloric stenosis Restless legs Right hip pain Historical Procedure/Surgical History ? ?Vaginal total hysterectomy, A&P repair, uterosacral vag-vault suspension, prolapse (04/21/2021)???Laparoscopic bypass gastrojejunostomy (02/29/2020)???EGD - Esophagogastroduodenoscopy (08/09/2019)???Colonoscopy (04/13/2019)???Pyloroplasty (03/22/2010)???Right-Oophorectomy (06/08/1979)???Ectopic w/ left salpingectomy???Tubal ligation Allergies No Known Medication Allergies Social History Alcohol Current, Daily- Comments: 1 Kahlua and milk/day Electronic Cigarette/Vaping Electronic Cigarette Use: Former use, quit more than 90 days ago. 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 Home/Environment Lives with Spouse. Nutrition/Health Caffeine intake amount: rarely. Sexual Other contraceptive use: [id number]. Substance Use Never Tobacco Current everyday tobacco user Tobacco Use:. 1.5 PPD per day. Never Smokeless Tobacco use:. Family History CA - Cancer of colon: Mother. CA - Cancer of kidney: Sister. Diabetes mellitus: Sister. Heart disease: Mother. Lung cancer: Father. Family Member(s): ?? FATHER, at age: Unknown. Cause of : Family Member(s): ?? MOTHER, at age: Unknown. Cause of : Electronically Signed on 12/04/22 10:48 PM Miguel Arauz MD Emergency department Discharge instructions * Miguel Arauz MD: PERFORM Event Display: ED Discharge Information Authored Date: [id number] KHOA AUBREE Arian :1950 Age:72 years Sex:Female Visit Date:12/04/2022 Primary Care Physician: Dilan Hernandez MD Discharge Instructions We would like to thank you for allowing us to assist you with your healthcare needs. The following includes patient education materials and information regarding your injury/illness. Diagnosis from Today's Visit COPD exacerbation Discharge Vitals Temperature??(Temporal Artery) 96.3 ??F (35.7 ??C) Heart Rate??(Peripheral) 81 Respiratory Rate?? 22 Blood Pressure?? 108/54?? Height?? 61.02 in (155.000 cm) Weight??(Estimated) 153.03 lb (69.40 kg) Allergies No Known Medication Allergies What to Do Next You Need to Schedule the Following Appointments Follow Up with??Dilan Hernandez MD When:??Within 1 to 2 weeks, only if needed Where: [facility] [address] [address]- Upcoming Scheduled Appointments Thursday 8:40 AM EDT ?? Thursday 10:00 AM EDT ?? Thursday 9:00 AM EDT ?? Thursday Feb. 8, 2024 11:00 AM EST ?? You were treated today on an emergency basis; it may be oliva to contact your primary care provider to notify them of your visit today. You may have been referred to your regular doctor or a specialist, please follow up as instructed. If your condition worsens or you can't get in to see the doctor, contact the Emergency Department. Medications What How Much When Why Instructions Next Dose New doxycycline (doxycycline hyclate 100 mg oral capsule) 1 Capsules Oral (given by mouth) 2 times a day COPD exacerbation Duration: 7 Days Pickup at [facility] New predniSONE (predniSONE 20 mg oral tablet) 2 tab Oral (given by mouth) Every day COPD exacerbation Pickup at [facility] Unchanged albuterol (Albuterol (Eqv-ProAir HFA) 90 mcg/ inh inhalation aerosol) 2 Puffs Inhale (breathe in) Every 4 hours COPD mixed type Unchanged ascorbic acid (Vitamin C 500 mg oral tablet) 1 tab Oral (given by mouth) Every day Unchanged benzonatate (Tessalon Perles 100 mg oral capsule) 1 Capsules Oral (given by mouth) 3 times a day as needed for as needed for cough Cough Duration: 7 Days Unchanged diazePAM (diazePAM 2 mg oral tablet) See instructions Claustrophobia Take one tablet 1 hr prior to procedure and 1 tablet right before procedure. ?? Unchanged Durable Medical Equipment for Prescription (Oxygen Therapy) See instructions Unchanged escitalopram (escitalopram 10 mg oral tablet) 1 tab Oral (given by mouth) Every day TAKE 1 TABLET BY MOUTH ONCE DAILY ?? Unchanged ferrous sulfate (ferrous sulfate 325 mg (65 mg elemental iron) oral delayed release tablet) 1 tab Oral (given by mouth) Every day Unchanged fluticasone/ umeclidinium/ vilanterol (Trelegy Ellipta 100 mcg-62.5 mcg-25 mcg/ inh inhalation powder) 1 Puffs Inhale (breathe in) Every day COPD mixed type at the same time every day ?? Unchanged fluticasone/ umeclidinium/ vilanterol (Trelegy Ellipta 100 mcg-62.5 mcg-25 mcg/ inh inhalation powder) See instructions INHALE 1 PUFF ONCE DAILY AT THE SAME TIME EACH DAY ?? Unchanged fluticasone/ umeclidinium/ vilanterol (Trelegy Ellipta 100 mcg-62.5 mcg-25 mcg/ inh inhalation powder) INHALE 1 PUFF ONCE DAILY AT THE SAME TIME EACH DAY ?? Unchanged LORazepam (Ativan 0.5 mg oral tablet) See instructions take 30-60 minutes prior to procedure. ?? Unchanged nystatin (nystatin 100,000 units/ mL oral suspension) 4 Milliliters Oral (given by mouth) 4 times a day Duration: 7 Days Unchanged omeprazole (omeprazole 40 mg oral delayed release capsule) 1 Capsules Oral (given by mouth) Every day Unchanged pramipexole (pramipexole 3 mg oral tablet, extended release) 180 EA, TAKE 1 TABLET BY MOUTH TWICE DAILY ?? Unchanged pregabalin (pregabalin 50 mg oral capsule) 1 Capsules Oral (given by mouth) 3 times a day Pharmacy Information [facility]: [address] [phone] Education Materials Chronic Obstructive Pulmonary Disease Exacerbation Chronic obstructive pulmonary disease (COPD) is a long-term (chronic) lung problem. In COPD, the flow of air from the lungs is limited. COPD exacerbations are times that breathing gets worse and you need more than your normal treatment. Without treatment, they can be life-threatening. If they happen often, your lungs can become more damaged. What are the causes? Having infections that affect your airways and lungs. ? Being exposed to: ? Smoke. ? Air pollution. ? Chemical fumes. ? Dust. ? Things that can cause an allergic reaction (allergens). ? Not taking your usual COPD medicines as told. ? Having medical problems already, such as heart failure or infections not involving the lungs. In many cases, the cause is not known. What increases the risk? Smoking. ? Being an older adult. ? Having frequent prior COPD exacerbations. What are the signs or symptoms? Increased coughing. ? Increased mucus from your lungs. ? Increased wheezing. ? Increased shortness of breath. ? Fast breathing and finding it hard to breathe. ? Chest tightness. ? Less energy than usual. ? Sleep disruption from symptoms. ? Confusion. ? Increased sleepiness. Often, these symptoms happen or get worse even with the use of medicines. How is this treated? Treatment for this condition depends on how bad it is and the cause of the symptoms. You may need to stay in the hospital for treatment. Treatment may include: ? Taking medicines. ? Using oxygen. ? Being treated with different ways to clear your airway, such as using a mask to deliver oxygen. Follow these instructions at home: Medicines ? Take covz-vgv-cfbwdey and prescription medicines only as told by your doctor. ? Use all inhaled medicines the correct way. ? If you were prescribed an antibiotic or steroid medicine, take it as told by your doctor. Do not stop taking it even if you start to feel better. Lifestyle ? Do not smoke or use any products that contain nicotine or tobacco. If you need help quitting, ask your doctor. ? Eat healthy foods. ? Exercise regularly. ? Get enough sleep. Most adults need 7 or more hours per night. ? Avoid tobacco smoke and other things that can bother your lungs. ? Several times a day, wash your hands with soap and water for at least 20 seconds. If you cannot usesoap and water, use hand looping inspector. This may help keep you from getting an infection. ? During flu season, avoid areas that are crowded with people. General instructions ? Drink enough fluid to keep your pee (urine) pale yellow. Do not do this if your doctor has told younot to. ? Use a cool mist machine (vaporizer). ? If you use oxygen or a machine that turns medicine into a mist (nebulizer), continue to use it as told. ? Keep all follow-up visits. How is this prevented? Keep up with shots (vaccinations) as told by your doctor. Be sure to get a yearly flu (influenza) shot. ? If you smoke, quit smoking. Smoking makes the problem worse. ? Follow all instructions for rehabilitation. These are steps you can take to make your body work better. ? Work with your doctor to develop and follow an action plan. This tells you what steps to take when you experience certain symptoms. Contact a doctor if: ? Your COPD symptoms get worse than normal. Get help right away if: ? You are short of breath and it gets worse, even when you are resting. ? You have trouble talking. ? You have chest pain. ? You cough up blood. ? You have a fever. ? You keep vomiting. ? You feel weak or you pass out (faint). ? You feel confused. ? You are not able to sleep because of your symptoms. ? You have trouble doing daily activities. These symptoms may be an emergency. Get help right away. Call your local emergency services (911 int [place] ? Do not wait to see if the symptoms will go away. ? Do not drive yourself to the hospital. Summary ? COPD exacerbations are times that breathing gets worse and you need more treatment than normal. ? COPD exacerbations can be very serious and may cause your lungs to become more damaged. ? Do not smoke. If you need help quitting, ask your doctor. ? Stay up to date on your shots. Get a flu shot every year. This information is not intended to replace advice given to you by your health care provider. Make sure you discuss any questions you have with your health care provider. Document Revised: 04/17/2021 Document Reviewed: 04/02/2021 [employer] Patient Education ?? 2021 [employer] Patient/Advice Clerk Signature Patient Name:AUBREE COUCH I have received this information and my questions have been answered. Patient/Advice Clerk Name: Patient/Advice Clerk Signature: Relationship to Patient: Witness Name/Signature: Date: Electronically Signed on: 12/04/2022 22:48 EDTSigned by:PMN History and physical note * Event Display: History and Physical Update Authored Date: [id number] Discharge summary * Robert White: PERFORM Event Display: Discharge Note Authored Date: [id number] * Robert White: PERFORM Event Display: Discharge Note Authored Date: [id number] Diagnosis: 1. COPD exacerbation Comment: Diagnosis: Shortness of breath Comment: Electronically Signed on 12/04/22 10:58 PM Robert White Patient Care team information Care Team Personnel Name: Dilan Hernandez MD Position: Physician Member Role: Informed Provider Address: Address: [address] [address]- [place] Name: Natalie Radford RN Position: Nurse Member Role: ED Nurse Name: Miguel Arauz MD Position: Physician Member Role: Admitting Physician Address: Address: [id number] [place] [address] Care Team Related Persons Name: LIAM QUIGLEY Address: [address], [address] Address: [address] [phone] Name: SONIA QUIGLEY Name: GRACIELA COUCH Address: [address] [phone]
--- OUTSIDE RECORDS SUMMARY | 2024-07-07 20:02 | XMS_ITS | Continuity of Care Document ---
Author Organization [facility] Address [address] [place] [address] Care Team Providers Care Foam Cutting Supervisor Name Role Phone Dilan Hernandez Primary Care Physician [phone] Encounter [facility] Date(s): 01/25/24 - 04/18/[address] [address] Discharge Disposition: Home or Self Care Attending Physician: Jaimee Cerda NP Admitting Physician: Jaimee Cerda NP Referring Physician: Jaimee Cerda METAL MINER BLASTING Allergies, Adverse Reactions, Alerts No Known Medication Allergies Assessment and Plan Future Appointments Future Scheduled Tests Laboratory* Basic Metabolic Panel 02/11/24 * Basic Metabolic Panel 02/17/24 * CBC w/ Diff 02/17/24 * Drug Screen Urine 09/28/23 Immunizations Given and Recorded Vaccine Date Status Refusal Reason influenza virus vaccine, inactivated 1 03/15/24 Re corded influenza virus vaccine, inactivated 05/03/17 Mika rded [...] influenza virus vaccine, inactivated 03/17/07 Mika rded SARS-CoV-2 (COVID-19) Moderna (cvx 312) 2 03/15/24 Recorded influenza, unspecified formulation 02/16/23 Record ed influenza, unspecified formulation 3 04/09/20 Mika rded influenza, unspecified formulation 4 03/24/19 Mika rded influenza, unspecified formulation 5 05/09/16 Mika rded pneumococcal 23-polyvalent vaccine 7 05/15/22 Mika rded pneumococcal 23-polyvalent vaccine 08/14/08 Record ed SARS-COV-2 (COVID-19) vaccine, unspecifi 8 03/18/22 Recorded influenza virus vaccine, live 04/30/21 Recorded influenza virus vaccine, live 03/16/18 Recorded influenza virus vaccine, live 05/25/15 Recorded SARS-CoV-2 (COVID-19) mRNA-1273 vaccine 09/17/20 R ecorded SARS-CoV-2 (COVID-19) mRNA-1273 vaccine 08/21/20 R ecorded tetanus-diphth toxoids (Td) adult/adol 10/18/18 Re corded pneumococcal 13-valent conjugate vaccine 04/19/18 Recorded zoster vaccine live 10/06/12 Recorded rubella virus vaccine 06/08/00 Recorded hepatitis B adult vaccine 06/08/00 Recorded measles/mumps/rubella virus vaccine 06/08/00 Recor ded varicella virus vaccine 06/08/00 Recorded Not Given Vaccine Date Status Refusal Reason influenza, unspecified formulation 6 01/29/22 Not Given Patient Refuses 1Result Comment: right arm,exp 12/05/2024, lot [id number] at [facility] 2Result Comment: left arm, exp 10/28/2024, lot [id number] at [facility] 3Result Comment: influenza, high-dose, quadrivalent VIS given: 04-09-2020 VIS published date: Inactivated Influenza 01/20/2019 Administered by NOEMÍ HERNANDEZ, Salvage Winder And Inspector 04-09-2020 4Result Comment: influenza, trivalent, adjuvanted VIS given: 03-24-2019 VIS published date: Inactivated Influenza 01/20/2019 Administered by SOWMYA MCMILLAN, Salvage Winder And Inspector 03-24-2019 5Result Comment: influenza, high dose seasonal Administered by: SULTANA 6Result Comment: William 7Result Comment: Moderna bivalent, 6+ months, blue cap 8Result Comment: influenza, high-dose, quadrivalent Patient Declined Last Modified by SOWMYA MCMILLAN, Salvage Winder And Inspector 06-21-2020, 11:26 Medications Albuterol (Eqv-ProAir HFA) 90 mcg/inh inhalation aerosol 2 puffs, Inhale, every 4 hr, # 18 g, 6 Refill(s), Pharmacy: [facility], 153.3, cm, 09/17/23 12:47:00 EDT, Height, 80.25, kg, 02/17/24 13:55:00 EDT, Weight Dosing Start Date: 02/17/24 Status: Ordered Breztri Aerosphere 160 mcg-9 mcg-4.8 mcg/inh inhalation aerosol 2 puffs, Inhale, BID, rinse mouth and throat after use, # 5.9 g, 0 Refill(s) Start Date: 09/07/23 Status: Ordered Breztri Aerosphere 160 mcg-9 mcg-4.8 mcg/inh inhalation aerosol 2 puffs, Inhale, BID, rinse mouth and throat after use, # 10.7 g, 6 Refill(s), Pharmacy: [facility], 153.3, cm, 09/17/23 12:47:00 EDT, Height, 80.25, kg, 02/17/24 13:55:00 EDT, Weight Dosing Start Date: 02/17/24 Status: Ordered cephalexin 250 mg oral capsule See Instructions, TAKE 1 CAPSULE BY MOUTH ONCE DAILY, # 90 cap, 0 Refill(s), Pharmacy: [facility], 153.3, cm, 09/17/23 12:47:00 EDT, Height, 81.5, kg, 12/17/23 9:09:00 EDT, Weight Dosing Start Date: 01/29/24 Status: Ordered COPD J44.1 COPD J44.1, Please include tubing and mouthpiece, Supply, See instructions, # 1 EA, 0 Refill(s) Start Date: 12/15/22 Status: Ordered escitalopram 10 mg oral tablet 10 mg = 1 tab, Oral, Daily, TAKE 1 TABLET BY MOUTH ONCE DAILY, # 90 tab, 3 Refill(s), Pharmacy: [place] [address], 155, cm, 05/04/23 10:37:00 EST, Height, 81.6, kg, 07/01/23 15:10:00 EST, Weight Dosing Start Date: 07/01/23 Status: Ordered ferrous sulfate 325 mg (65 mg elemental iron) oral delayed release tablet 325 mg = 1 tab, Oral, Daily, # 90 tab, 0 Refill(s), Pharmacy: [place] [address], 156, cm, 03/27/22 9:33:00 EDT, Height/Length Dosing, 68.04, kg, 03/27/22 9:33:00 EDT, Weight Dosing Start Date: 08/15/22 Status: Ordered ipratropium-albuterol 0.5 mg-2.5 mg/3 mL inhalation solution See Instructions, USE 1 AMPULE IN NEBULIZER EVERY 4 HOURS NEEDED FOR SHORTNESS OF BREATH FOR WHEEZING, # 360 EA, 4 Refill(s), Pharmacy: [place] [address], 153.3, cm, 09/17/23 12:47:00 EDT, Height, 81.5, kg, 12/17/23 9:09:00 EDT, Weight Dosing Start Date: 12/17/23 Status: Ordered omeprazole 40 mg oral delayed release capsule 40 mg = 1 cap, Oral, Daily, # 90 cap, 3 Refill(s), Pharmacy: [place] [address], 155, cm, 12/04/22 20:52:00 EDT, Height/Length Dosing, 69.4, kg, 12/04/22 20:52:00 EDT, Weight Dosing Start Date: 01/29/23 Status: Ordered ondansetron 8 mg oral tablet See Instructions, PRN nausea, 1 tab Oral every 6 hours as needed for nausea, # 56 tab, 0 Refill(s),Pharmacy: [place] [address], 153.3, cm, 09/17/23 12:47:00 EDT, Height, 81.65, kg, 09/17/23 12:54:00 EDT, Weight Dosing Start Date: 10/14/23 Status: Ordered Oxygen Therapy Supply, See instructions, # 1 EA, 0 Refill(s) Start Date: 11/19/22 Status: Ordered Ozempic (1 mg dose) 4 mg/3 mL subcutaneous solution 1 mg =, Subcutaneous, every week, # 9 mL, 3 Refill(s), Pharmacy: [facility], 153.3, cm, 09/17/23 12:47:00 EDT, Height, 80.25, kg, 02/17/24 13:55:00 EDT, Weight Dosing Start Date: 03/23/24 Status: Ordered potassium bicarbonate 20 mEq oral tablet, effervescent 20 mEq = 1 tab, Oral, BID, dissolve in water or juice, # 60 tab, 1 Refill(s), Pharmacy: [facility], 153.3, cm, 09/17/23 12:47:00 EDT, Height, 80.25, kg, 02/17/24 13:55:00 EDT, Weight Dosing Start Date: 02/17/24 Status: Ordered potassium chloride 20 mEq oral tablet, extended release 40 mEq = 2 tab, Oral, Daily, # 180 tab, 0 Refill(s), Pharmacy: [place] [id number], 153.3, cm, 09/17/23 12:47:00 EDT, Height, 81.9, kg, 02/01/24 13:10:00 EDT, Weight Dosing Start Date: 02/11/24 Stop Date: 05/11/24 Status: Ordered pramipexole 1 mg oral tablet See Instructions, Take 1 tablets by mouth QAM and two tablets QPM, # 90 tab, 6 Refill(s), Pharmacy:[facility], 153.3, cm, 09/17/23 12:47:00 EDT, Height, 80.25, kg, 02/17/24 13:55:00 EDT, Weight Dosing Start Date: 02/24/24 Status: Ordered torsemide 20 mg oral tablet 20 mg = 1 tab, Oral, Daily, # 90 tab, 1 Refill(s), Pharmacy: [facility], 153.3, cm, 09/17/23 12:47:00 EDT, Height, 80.25, kg, 02/17/24 13:55:00 EDT, Weight Dosing Start Date: 03/23/24 Status: Ordered Vitamin C 500 mg oral tablet 500 mg = 1 tab, Oral, Daily, # 90 tab, 0 Refill(s), Pharmacy: [facility], 156, cm, 03/27/22 9:33:00 EDT, [...] lumbar intervertebral disc 1 Confirmed 08/23/20 Active Diabetes Confirmed Active Diarrhea Confirmed 09/06/18 Active SOB (shortness of breath) on exertion Confirmed Active Gastroesophageal reflux disease Confirmed Active Right hip pain Confirmed Active 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 Hypokalemia Confirmed Active Hyponatremia Confirmed Active Insomnia Confirmed Active Low back pain Confirmed 10/02/20 Active Lumbar spondylosis 2 Confirmed 10/02/20 Active Lumbosacral radiculopathy Confirmed Active Mixed urinary incontinence Confirmed Active Nicotine dependence Confirmed Active Overweight Confirmed Active Peptic ulcer Confirmed Active Prediabetes Confirmed Active Pyloric stenosis Confirmed 01/19/19 Active Restless legs Confirmed 03/05/20 Active Hypoxemia associated with sleep Confirmed Active Tobacco user Confirmed Active 1Outside Source Comment: Overview: Added automatically from request for surgery [id number] 2Outside Source Comment: Overview: Added automatically from request for surgery [id number] Procedures Procedure Date Related Diagnosis Body Site [...] 5 year call-back 5Sisson 6right, d/t cyst 9534702/1983 with Left salpingectomy Social History Social History Type Response Smoking Status Smoking tobacco use: Current everyday tobacco user;Never; Number used per day: 1.5 PPD; entered on: 06/15/23 Sex Female Sex Representation Female (finding) History and physical note * Event Display: History and Physical Update Authored Date: [id number] Patient Care team information Care Team Personnel Name: Dilan Hernandez MD Position: Physician Member Role: Informed Provider Address: [address] Care Team Related Persons Name: LIAM QUIGLEY Name: GRACIELA COUCH Insurance Providers Guarantor name: AUBREE COUCH Health Plan Information #: 1 Payer: [employer] PPO Member Number: [id number] Policy Number: NA Health Plan Information #: 2 Payer: [employer] PPO Member Number: [id number] Policy Number: NA
--- OUTSIDE RECORDS SUMMARY | 2024-07-07 20:02 | XMS_ITS | Continuity of Care Document ---
Author Organization [facility] Address [address] [place] [address] Care Team Providers Care Ladle Watcher Name Role Phone Dilan Hernandez Primary Care Physician [phone] Encounter [facility] Date(s): 06/29/23 - 06/29/23 [facility] [address] [place] [address] Allergies, Adverse Reactions, Alerts No Known Medication Allergies Assessment and Plan Future Appointments Future Scheduled Tests Laboratory* Basic Metabolic Panel 09/29/22 * Hemoglobin A1c 09/29/22 Radiology* NM Myocardial SPECT Drug Stress Multi 06/17/23 Immunizations Given and Recorded Vaccine Date Status [...] Inactivated Influenza 01/20/2019 Administered by NOEMÍ HERNANDEZ, Table Games Shift Manager 04-09-2020 2Result Comment: influenza, trivalent, adjuvanted VIS given: 03-24-2019 VIS published date: Inactivated Influenza 01/20/2019 Administered by SOWMYA MCMILLAN, Table Games Shift Manager 03-24-2019 3Result Comment: influenza, high dose seasonal Administered by: SULTANA 4Result Comment: William 5Result Comment: influenza, high-dose, quadrivalent Patient Declined Last Modified by SOWMYA MCMILLAN, Table Games Shift Manager 06-21-2020, 11:26 Medications Albuterol (Eqv-ProAir HFA) 90 mcg/inh inhalation aerosol 2 puffs, Inhale, every 4 hr, # 8.5 g, 6 Refill(s), Pharmacy: [facility], 156, cm, 03/27/22 9:33:00 EDT, Height/Length Dosing, 68.04, kg, 03/27/22 9:33:00 EDT, Weight Dosing Start Date: 09/29/22 Status: Ordered apixaban 5 mg oral tablet 5 mg = 1 tab, Oral, BID, # 60 tab, 3 Refill(s), Pharmacy: [facility], 155, cm, 05/04/23 10:37:00 EST, Height, 80, kg, 06/18/23 15:33:00 EST, Weight Dosing Start Date: 06/18/23 Status: Ordered COPD J44.1 COPD J44.1, Please include tubing and mouthpiece, Supply, See instructions, # 1 EA, 0 Refill(s) Start Date: 12/15/22 Status: Ordered escitalopram 10 mg oral tablet 10 mg = 1 tab, Oral, Daily, TAKE 1 TABLET BY MOUTH ONCE DAILY, # 90 tab, 3 Refill(s), Pharmacy: [facility], 156, cm, 03/27/22 9:33:00 EDT, Height/Length Dosing, 68.04, kg, 03/27/22 9:33:00EDT, Weight Dosing Start Date: 05/12/22 Status: Ordered ferrous sulfate 325 mg (65 mg elemental iron) oral delayed release tablet 325 mg = 1 tab, Oral, Daily, # 90 tab, 0 Refill(s), Pharmacy: [place] [address], 156, cm, 03/27/22 9:33:00 EDT, Height/Length Dosing, 68.04, kg, 03/27/22 9:33:00 EDT, Weight Dosing Start Date: 08/15/22 Status: Ordered ipratropium-albuterol 0.5 mg-2.5 mg/3 mL inhalation solution See Instructions, USE 1 AMPULE IN NEBULIZER EVERY 4 HOURS NEEDED FOR SHORTNESS OF BREATH OR WHEEZING, # 90 mL, 4 Refill(s), Pharmacy: [place] [address], 154, cm, 04/03/23 18:11:00 EDT, Height/Length Dosing, 76.6, kg, 04/15/23 11:00:00 EST, Weight Dosing Start Date: 04/15/23 Status: Ordered Lyrica 25 mg oral capsule 25 mg = 1 cap, Oral, TID, # 90 cap, 3 Refill(s), Pharmacy: [place] [address], 155, cm, 05/04/2310:37:00 EST, Height, 78.97, kg, 05/14/23 10:34:00 EST, Weight Dosing Start Date: 05/14/23 Status: Ordered omeprazole 40 mg oral delayed release capsule 40 mg = 1 cap, Oral, Daily, # 90 cap, 3 Refill(s), Pharmacy: [place] [address], 155, cm, 12/04/22 20:52:00 EDT, Height/Length Dosing, 69.4, kg, 12/04/22 20:52:00 EDT, Weight Dosing Start Date: 01/29/23 Status: Ordered Oxygen Therapy Supply, See instructions, # 1 EA, 0 Refill(s) Start Date: 11/19/22 Status: Ordered Ozempic 2 mg/3 mL (0.25 mg or 0.5 mg dose) subcutaneous solution 0.25 mg =, Subcutaneous, every week, rotate injection sites, # 1 EA, 0 Refill(s), Pharmacy: [place] [address], 154, cm, 04/03/23 18:11:00 EDT, Height/Length Dosing, 76.35, kg, 04/23/23 14:48:00 EST, Weight Dosing Start Date: 04/27/23 Status: Ordered pramipexole 1 mg oral tablet See Instructions, Take 2 tablets by mouth twice daily, # 120 tab, 6 Refill(s), Pharmacy: [place] [address], 155, cm, 05/04/23 10:37:00 EST, Height, 78.97, kg, 05/14/23 10:34:00 EST, Weight Dosing Start Date: 05/29/23 Status: Ordered pramipexole 1 mg oral tablet See Instructions, 0 Refill(s) Start Date: 04/15/23 Status: Ordered traMADol 50 mg oral tablet 50 mg = 1 tab, Oral, every 4 hr, PRN as needed for pain, # 28 tab, 0 Refill(s), Pharmacy: [place] [address], 155, cm, 05/04/23 10:37:00 EST, Height, 80, kg, 06/18/23 15:33:00 EST, Weight Dosing Start Date: 06/18/23 Status: Ordered Trelegy Ellipta 100 mcg-62.5 mcg-25 mcg/inh inhalation powder See Instructions, INHALE 1 PUFF ONCE DAILY AT THE SAME TIME EACH DAY, # 60 EA, 4 Refill(s), Pharmacy: [place] [address], 155, cm, 12/04/22 20:52:00 EDT, Height/Length Dosing, 69.4, kg, 12/04/22 20:52:00 EDT, Weight Dosing Start Date: 03/17/23 Status: Ordered Vitamin C 500 mg oral tablet 500 mg = 1 tab, Oral, Daily, # 90 tab, 0 Refill(s), Pharmacy: [facility], 156, cm, 03/27/22 [...] ulcer Confirmed 01/19/19 Active Insomnia Confirmed Active Low back pain [...] Overview: Added automatically from request for surgery [id number] 2Outside Source Comment: Overview: Added automatically from request for surgery [id number] Procedures Procedure Date Related Diagnosis Body Site [...] 5 year call-back 5Sisson 6right, d/t cyst [id number]/1983 with Left salpingectomy Social History Social History Type Response Smoking Status Smoking tobacco use: Current everyday tobacco user;Never; Number used per day: 1.5 PPD; entered on: 06/15/23 Sex Female History and physical note * Event Display: History and Physical Update Authored Date: [id number] Patient Care team information Care Team Personnel Name: Dilan Hernandez MD Position: Physician Member Role: Informed Provider Address: Address: [address] Care Team Related Persons Name: LIAM QUIGLEY Address: [address] [address] Address: Home [address] [place] [phone] Address: Mailing [address] [place] [id number] Name: GRACIELA COUCH Address: [address] [id number]
--- OUTSIDE RECORDS SUMMARY | 2024-07-07 20:02 | XMS_ITS | Continuity of Care Document ---
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 Name Role Phone Dilan Hernandez Primary Care Physician [phone] Encounter [facility], 1928–[facility] [id number] Date(s): 11/07/22 - 11/07/22 [facility] [address] [place] [address] Encounter Diagnosis Chronic obstructive lung disease(Discharge Diagnosis) - 11/07/22 Discharge Disposition: Home or Self Care Attending Physician: Ramos Rubio Admitting Physician: Ramos Rubio Referring Physician: Ramos Rubio Allergies, Adverse Reactions, Alerts No Known Medication Allergies Assessment and Plan Future Appointments Future Scheduled Tests Laboratory* Cortisol [facility] 11/11/21 * Basic Metabolic Panel 09/29/22 * Hemoglobin A1c 09/29/22 Immunizations Given and Recorded Vaccine Date Status [...] Inactivated Influenza 01/20/2019 Administered by NOEMÍ HERNANDEZ, Paid Search Manager 04-09-2020 3Result Comment: influenza, trivalent, adjuvanted VIS given: 03-24-2019 VIS published date: Inactivated Influenza 01/20/2019 Administered by SOWMYA MCMILLAN, Paid Search Manager 03-24-2019 4Result Comment: influenza, high dose seasonal Administered by: SULTANA 5Result Comment: influenza, high-dose, quadrivalent Patient Declined Last Modified by SOWMYA MCMILLAN Paid Search Manager 06-21-2020, 11:26 Medications Albuterol (Eqv-ProAir HFA) 90 mcg/inh inhalation aerosol 2 puffs, Inhale, every 4 hr, # 8.5 g, 6 Refill(s), Pharmacy: [id number], 156, cm, 03/27/22 9:33:00 EDT, Height/Length Dosing, 68.04, kg, 03/27/22 9:33:00 EDT, Weight Dosing Start Date: 09/29/22 Status: Ordered Ativan 0.5 mg oral tablet See Instructions, take 30-60 minutes prior to procedure., # 1 tab, 0 Refill(s), Pharmacy: [place] [id number], 156, cm, 03/27/22 9:33:00 EDT, Height/Length Dosing, 68.04, kg, 03/27/22 9:33:00 EDT, Weight Dosing Start Date: 09/29/22 Status: Ordered diazePAM 2 mg oral tablet See Instructions, Take one tablet 1 hr prior to procedure and 1 tablet right before procedure., # 2tab, 0 Refill(s), Pharmacy: [place] [id number], 156, cm, 03/27/22 9:33:00 EDT, Height/Length Dosing, 68.04, kg, 03/27/22 9:33:00 EDT, Weight Dosing Start Date: 10/10/22 Status: Ordered escitalopram 10 mg oral tablet 10 mg = 1 tab, Oral, Daily, TAKE 1 TABLET BY MOUTH ONCE DAILY, # 90 tab, 3 Refill(s), Pharmacy: [place] [id number], 156, cm, 03/27/22 9:33:00 EDT, Height/Length Dosing, 68.04, kg, 03/27/22 9:33:00EDT, Weight Dosing Start Date: 05/12/22 Status: Ordered ferrous sulfate 325 mg (65 mg elemental iron) oral delayed release tablet 325 mg = 1 tab, Oral, Daily, # 90 tab, 0 Refill(s), Pharmacy: [id number], 156, cm, 03/27/22 9:33:00 EDT, Height/Length Dosing, 68.04, kg, 03/27/22 9:33:00 EDT, Weight Dosing Start Date: 08/15/22 Status: Ordered nystatin 100,000 units/mL oral suspension 400,000 units = 4 mL, Oral, QID, # 120 mL, 0 Refill(s), 11/14/22 10:40:00 EDT, Pharmacy: [id number], 156, cm, 03/27/22 9:33:00 EDT, Height/Length Dosing, 68.04, kg, 03/27/22 9:33:00 EDT, Weight Dosing Start Date: 11/07/22 Stop Date: 11/14/22 Status: Ordered nystatin 100,000 units/mL oral suspension 400,000 units = 4 mL, Oral, QID, # 120 mL, 0 Refill(s), Pharmacy: [id number], 156, cm, 03/27/22 9:33:00 EDT, Height/Length Dosing, 68.04, kg, 03/27/22 9:33:00 EDT, Weight Dosing Start Date: 09/29/22 Stop Date: 10/06/22 Status: Ordered omeprazole 40 mg oral delayed release capsule 40 mg = 1 cap, Oral, Daily, 0 Refill(s) Start Date: 11/11/21 Status: Ordered pramipexole 3 mg oral tablet, extended release 180 EA, TAKE 1 TABLET BY MOUTH TWICE DAILY, 0 Refill(s) Start Date: 07/10/22 Status: Ordered pregabalin 50 mg oral capsule 50 mg = 1 cap, Oral, TID, # 90 cap, 0 Refill(s) Start Date: 09/29/22 Status: Ordered Tessalon Perles 100 mg oral capsule 100 mg = 1 cap, Oral, TID, PRN as needed for cough, # 21 cap, 0 Refill(s), Pharmacy: [id number], 156, cm, 03/27/22 9:33:00 EDT, Height/Length Dosing, 68.04, kg, 03/27/22 9:33:00 EDT, Weight Dosing Start Date: 11/07/22 Stop Date: 11/14/22 Status: Ordered Trelegy Ellipta 100 mcg-62.5 mcg-25 mcg/inh inhalation powder 1 puffs, Inhale, Daily, at the same time every day, # 60 EA, 4 Refill(s), Pharmacy: [id number], 156, cm, 03/27/22 9:33:00 [...] Daily, # 90 tab, 0 Refill(s), Pharmacy: [id number], 156, cm, 03/27/22 9:33:00 [...] 5 year call-back 5[facility] 6right, d/t cyst 66978/1982 with Left salpingectomy Social History Social History Type Response Smoking Status Smoking tobacco use: Current everyday tobacco user;Never; Number used per day: 1.5 PPD; entered on: 03/27/22 Sex Female History and physical note * Event Display: History and Physical Update Authored Date: Patient Care team information Care Team Personnel Name: Dilan Hernandez MD Position: Physician Member Role: Primary Care Physician Address: Address: [place] [address]- Care Team Related Persons Name: LIAM QUIGLEY Address: [address] [address] Address: [address] [phone] Name: GRACIELA OCUCH Address: [address] [phone]
--- OUTSIDE RECORDS SUMMARY | 2024-07-07 20:02 | XMS_ITS | Continuity of Care Document ---
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 An overnight oximetry on 2 lpm showed significant improvement with no time spent with oxygen saturation <88%. She continues to use nocturnal 02 at 2 lpm and tolerates this well. She is reminded not to ever smoke or have an open flame near the 02. Actions: COMPLETED - [id number] Office/Outpatient Visit - Established Patient, Level 4 (30-39 min)., 09/07/23 10:16:00 EDT, Hypoxemia associated with sleep Restless legs Right hip pain FUTURE - Ferritin, Blood, Routine, 09/07/23, Once, Lab Collect, Hypoxemia associated with sleep Restless legs Right hip pain, Order for future visit FUTURE - Follow-Up Appointment Request YESSENIA, *Est. 09/06/24 +/- 28 days, Future Order, In [facility], [facility] ?? 2.??Restless legs??G25.81 When I first met her she had symptoms of restless legs most nights and often throughout the day. She also had them when driving. She was taking escitalopram which may cause or worsen RLS.??She was??taking a very high dose of Mirapex ER at 3 mg BID (10 am, 10 pm) for a few years. The maximum recommended dose of Mirapex for treatment of RLS is 0.75 mg per day. Higher doses may lead to augmentation. She??was previously instructed that caffeine and chocolate may worsen RLS symptoms and they may be improved by exercise.??I decreased her??pramipexole to??2 mg BID and she was doing pretty well with this last visit having only occasional evening symptoms. She was to further lower AM dose to 1 mg. Mallorie has been taking 1 mg or pramipexole about 50% of mornings but often still takes 2 mg when legs are bad. I encouraged her to still try just 1 mg when the legs are bad and if needed she can always add the second 1 mg if no significant improvement.?? She takes tramadol most evenings for pain which can also help with RLS.?? I suggested she discuss with Dr Felton coming off the escitalopram which comonly causes and worsens RLS. She has been taking iron 2 tabs daily so I ordered an updated ferritin level today. She does not tolerate vit C. Will stop iron once ferritin >75. Overall her symptoms have improved since I initially saw her. I will see her back in one year. She is asked to call our office for any questions or concerns. I provided greater than 30 minutes in the care of this patient, more than half the time was spent in [id number] counseling. ? Actions: COMPLETED - [id number] Office/Outpatient Visit - Established Patient, Level 4 (30-39 min)., 09/07/23 10:16:00 EDT, Hypoxemia associated with sleep Restless legs Right hip pain FUTURE - Ferritin, Blood, Routine, 09/07/23, Once, Lab Collect, Hypoxemia associated with sleep Restless legs Right hip pain, Order for future visit FUTURE - Follow-Up Appointment Request NCTY, *Est. 09/06/24 +/- 28 days, Future Order, In Approximately, [facility] ?? 3.??Right hip pain??M25.551 Actions: COMPLETED - [id number] Office/Outpatient Visit - Established Patient, Level 4 (30-39 min)., 09/07/23 10:16:00 EDT, Hypoxemia associated with sleep Restless legs Right hip pain FUTURE - Ferritin, Blood, Routine, 09/07/23, Once, Lab Collect, Hypoxemia associated with sleep Restless legs Right hip pain, Order for future visit FUTURE - Follow-Up Appointment Request NCTY, *Est. 09/06/24 +/- 28 days, Future Order, In Approximately, [facility] ?? Addendum by Jaimee Cerda PALM GATHERER on September 07, 2023 13:17:13 EDT 09/07/2023 ferritin 39, since she can't tolerate vit C tabs I suggested she have a glass of OJ with her iron to help with absorption. Future Appointments Future Scheduled Tests Laboratory* Thyroid Stimulating Hormone 08/26/23 Immunizations Given and Recorded Vaccine Date Status [...] Inactivated Influenza 01/20/2019 Administered by NOEMÍ HERNANDEZ, Telecom Coordinator 04-09-2020 2Result Comment: influenza, trivalent, adjuvanted VIS given: 03-24-2019 VIS published date: Inactivated Influenza 01/20/2019 Administered by SOWMYA MCMILLAN, Telecom Coordinator 03-24-2019 3Result Comment: influenza, high dose seasonal Administered by: SULTANA 4Result Comment: William 5Result Comment: Moderna bivalent, 6+ months, blue cap 6Result Comment: influenza, high-dose, quadrivalent Patient Declined Last Modified by SOWMYA MCMILLAN, Telecom Coordinator 06-21-2020, 11:26 Medications Albuterol (Eqv-ProAir HFA) 90 mcg/inh inhalation aerosol 2 puffs, Inhale, every 4 hr, # 8.5 g, 6 Refill(s), Pharmacy: [facility], 155, cm, 05/04/23 10:37:00 EST, Height, 81.6, kg, 07/01/23 15:10:00 EST, Weight Dosing Start Date: 07/01/23 Status: Ordered apixaban 5 mg oral tablet 5 mg = 1 tab, Oral, BID, # 60 tab, 3 Refill(s), Pharmacy: [facility], 155, cm, 05/04/23 10:37:00 EST, Height, 81.6, kg, 07/01/23 15:10:00 EST, Weight Dosing Start Date: 07/13/23 Status: Ordered azithromycin 250 mg oral tablet See Instructions, Oral, Daily, Take 2 tabs on day 1 and 1 tab on day 2-5, # 6 tab, 0 Refill(s), Pharmacy: [facility], 154, cm, 08/21/23 11:26:00 EDT, Height, 82.7, kg, 08/27/23 8:05:00 EDT, Weight Dosing Start Date: 08/27/23 Status: Ordered Breztri Aerosphere 160 mcg-9 mcg-4.8 mcg/inh inhalation aerosol 2 puffs, Inhale, BID, rinse mouth and throat after use, # 5.9 g, 0 Refill(s) Start Date: 09/07/23 Status: Ordered Breztri Aerosphere 160 mcg-9 mcg-4.8 mcg/inh inhalation aerosol 2 puffs, Inhale, BID, rinse mouth and throat after use, # 5.9 g, 0 Refill(s) Start Date: 08/27/23 Status: Ordered COPD J44.1 COPD J44.1, Please include tubing and mouthpiece, Supply, See instructions, # 1 EA, 0 Refill(s) Start Date: 12/15/22 Status: Ordered escitalopram 10 mg oral tablet 10 mg = 1 tab, Oral, Daily, TAKE 1 TABLET BY MOUTH ONCE DAILY, # 90 tab, 3 Refill(s), Pharmacy: [facility] 4156, 155, cm, 05/04/23 10:37:00 EST, Height, 81.6, kg, 07/01/23 15:10:00 EST, Weight Dosing Start Date: 07/01/23 Status: Ordered ferrous sulfate 325 mg (65 mg elemental iron) oral delayed release tablet 325 mg = 1 tab, Oral, Daily, # 90 tab, 0 Refill(s), Pharmacy: [facility], 156, cm, 03/27/22 9:33:00 EDT, Height/Length Dosing, [...] WHEEZING, # 90 mL, 4 Refill(s), Pharmacy: [facility], 155, cm, 05/04/23 10:37:00 EST, Height, 81.51, kg, 07/23/23 10:33:00 EST, Weight Dosing Start Date: 08/03/23 Status: Ordered omeprazole 40 mg oral delayed release capsule 40 mg = 1 cap, Oral, Daily, # 90 cap, 3 Refill(s), Pharmacy: [facility], 155, cm, 12/04/22 20:52:00 EDT, Height/Length Dosing, 69.4, kg, 12/04/22 20:52:00 EDT, Weight Dosing Start Date: 01/29/23 Status: Ordered Oxygen Therapy Supply, See instructions, # 1 EA, 0 Refill(s) Start Date: 11/19/22 Status: Ordered pramipexole 1 mg oral tablet See Instructions, Take 2 tablets by mouth twice daily, # 120 tab, 6 Refill(s), Pharmacy: [facility], 155, cm, 05/04/23 10:37:00 EST, Height, 78.97, kg, 05/14/23 10:34:00 EST, Weight Dosing Start Date: 05/29/23 Status: Ordered predniSONE 10 mg oral tablet See Instruction, Oral, Daily, 4 tabs daily x3 days, 3 tabs daily x3 days, 2 tabs daily x3 days, 1 tab daily x3 days, # 30 tab, 0 Refill(s), Pharmacy: [facility], 154, cm, 08/21/23 11:26:00EDT, Height, 82.7, kg, 08/27/23 8:05:00 EDT, Weight Dosing Start Date: 08/27/23 Status: Ordered traMADol 50 mg oral tablet 100 mg = 2 tab, Oral, every 8 hr, PRN as needed for pain, # 168 tab, 0 Refill(s), Pharmacy: [facility], 154, cm, 08/21/23 11:26:00 EDT, Height, 82.7, kg, 08/27/23 8:05:00 EDT, Weight Dosing Start Date: 08/31/23 Status: Ordered Vitamin C 500 mg oral tablet 500 mg = 1 tab, Oral, Daily, # 90 tab, 0 Refill(s), Pharmacy: [facility], 156, cm, 03/27/22 9:33:00 [...] Overview: Added automatically from request for surgery [id number] 2Outside Source Comment: Overview: Added automatically from request for surgery [id number] Procedures Procedure Date Related Diagnosis Body Site [...] Most recent to oldest [Reference Range]: 1 Peripheral Pulse Rate [60-100 bpm] 88 bp m (09/07/23 10:21 AM) Blood Pressure [90-140/60-90 mmHg] 121/6 9mmHg (09/07/23 10:21 AM) Mean Arterial Pressure, Cuff [65-140 mmH g] 86 mmHg (09/07/23 10:21 AM) Weight 80.74 kg (09/07/23 10:21 AM) Weight Measured (lbs) 178.001 lb (09/07/23 10:21 AM) Weight Dosing 80.740 kg (09/07/23 10:21 AM) Height 154 cm (09/07/23 10:21 AM) Height/Length Measured (inches) 60.63 in ch (09/07/23 10:21 AM) BSA Measured 1.86 m2 (09/07/23 10:21 AM) Body Mass Index 34.04 kg/m2 (09/07/23 10:21 AM) Social History Social History Type Response Smoking Status Smoking tobacco use: Current everyday tobacco user;Never; Number used per day: 1.5 PPD; entered on: 06/15/23 Sex Female History and physical note * Event Display: History and Physical Update Authored Date: [id number] Physician Outpatient Note * Jaimee Cerda PALM GATHERER: PERFORM Event Display: Office Clinic Note Physician Authored Date: [id number] MALLORIE COUCH :1950 Age:73 years Sex:Female Visit Date:09/07/2023 Primary Care Physician: Dilan Hernandez MD History of Present Illness Mallorie Couch has?? visit for RLS and hypoxemia follow-up. ?? Mallorie?? was seen by me on 02/13/2023. She has a medical history to include anxiety, GERD, pyloric stenosis, COPD, lumbosacral radiculopathy, urinary incontinence and RLS. ?? She noted symptoms of RLS (QHS and many days), mild snoring, excessive daytime sleepiness (ESS 20), nocturia??and??difficulty returning to sleep taking 2-3 hours most nights. ??Ferritin level on 08/15/22 was only 23 and she was advised to take her iron regularly (which she was not doing). ?? Polysomnogram was completed on??10/23/2022 (BMI 30.87). Sleep efficiency was 87%, AHI 0.8/hr, RDI 0.9/hr, REM AHI 2.1/hr, REM RDI 2.1/hr, supine AHI 2/hr, right lateral AHI 1/hr, left lateral AHI 0/hr, sp02 miguel 76%,??420 minutes were spent at a saturation <88%, arousal index 6/hr, PLMi 17.7/hr,PLM arousal index 3.3/hr. EKG showed NSR. I??ordered 02 at 2 lpm with sleep and an overnight oximetry which was completed on 12/02/2022 and nosignificant hypoxemia noted (sp02 miguel 88%). ?? Last visit she was using the 02 QHS at 2 lpm and taking??taking pramipexole 2 mg QAM and 2 mg QHS with occasional evening symptoms relieved by walking. She was to further lower AM dose to 1 mg. 02/13/23 ferritin 35, she was advised to increase the iron and vitamin C to BID ?? Mallorie says that off and on she has been using only 1 mg QAM. When her legs are bad she automatically takes 2 mg QAM. She is taking 2 mg 3-4 times a week. She takes the secind 2 mg between 8-10 pm.Overall she feels her RLS are betterthan with I first saw her.? She is taking two iron tabs daily, she doesn't take vit C because it makes her mouth sore. She tolerates the iron well.? She still uses the nocturnal 02 at 2 lpm for sleep.?? Physical Exam Vitals & Measurements HR:??88??(Peripheral)?? BP:??121/69?? SpO2:??94%?? HT:??154??cm?? WT:??80.74??kg?? BMI:??34.04?? BSA:??1.86?? GENERAL: answers questions appropriately, well groomed, obese HEAD: normocephalic and atraumatic. EYES: non icteric LUNGS: crackles RUSTY. Good air movement throughout. CARDIO: RRR without murmur, gallop or thrill. NEURO: alert and oriented, normal gait. PYSCH: normal mood and affect. CUTANEOUS: no overt lesions or rashes.?? Clinic Assessment/Plan 1.??Hypoxemia associated with sleep??G47.36 PSG did not reveal any sleep disordered breathing but there was significant hypoxemia with 420 minutes spent with sp02 less than 88%. An overnight oximetry on 2 lpm showed significant improvement with no time spent with oxygen saturation <88%. She continues to use nocturnal 02 at 2 lpm and tolerates this well. She is reminded not to ever smoke or have an open flame near the 02. Actions: COMPLETED - [id number] Office/Outpatient Visit - Established Patient, Level 4 (30-39 min)., 09/07/23 10:16:00 EDT, Hypoxemia associated with sleep Restless legs Right hip pain FUTURE - Ferritin, Blood, Routine, 09/07/23, Once, Lab Collect, Hypoxemia associated with sleep Restless legs Right hip pain, Order for future visit FUTURE - Follow-Up Appointment Request NCTY, *Est. 09/06/24 +/- 28 days, Future Order, In [facility] ?? 2.??Restless legs??G25.81 When I first met her she had symptoms of restless legs most nights and often throughout the day. She also had them when driving. She was taking escitalopram which may cause or worsen RLS.??She was??taking a very high dose of Mirapex ER at 3 mg BID (10 am, 10 pm) for a few years. The maximum recommended dose of Mirapex for treatment of RLS is 0.75 mg per day. Higher doses may lead to augmentation. She??was previously instructed that caffeine and chocolate may worsen RLS symptoms and they may be improved by exercise.??I decreased her??pramipexole to??2 mg BID and she was doing pretty well with this last visit having only occasional evening symptoms. She was to further lower AM dose to 1 mg. Mallorie has been taking 1 mg or pramipexole about 50% of mornings but often still takes 2 mg when legsare bad. I encouraged her to still try just 1 mg when the legs are bad and if needed she can always add the second 1 mg if no significant improvement.?? She takes tramadol most evenings for pain which can also help with RLS.?? I suggested she discuss with Dr Felton coming off the escitalopram which comonly causes and worsens RLS. She has been taking iron 2 tabs daily so I ordered an updated ferritin level today. She does not tolerate vit C. Will stop iron once ferritin >75. Overall her symptoms have improved since I initially saw her. I will see her back in one year. She is asked to call our office for any questions or concerns. I provided greater than 30 minutes in the care of this patient, more than half the time was spent in [id number] counseling. Actions: COMPLETED - Office/Outpatient Visit - Established Patient, Level 4 (30-39 min)., 09/07/23 10:16:00 EDT, Hypoxemia associated with sleep Restless legs Right hip pain FUTURE - Ferritin, Blood, Routine, 09/07/23, Once, Lab Collect, Hypoxemia associated with sleep Restless legs Right hip pain, Order for future visit FUTURE - Follow-Up Appointment Request NCTY, *Est. 09/06/24 +/- 28 days, Future Order, In [facility], [facility] ?? 3.??Right hip pain??M25.551 Actions: COMPLETED Office/Outpatient Visit - Established Patient, Level 4 (30-39 min)., 09/07/23 10:16:00 EDT, Hypoxemia associated with sleep Restless legs Right hip pain FUTURE - Ferritin, Blood, Routine, 09/07/23, Once, Lab Collect, Hypoxemia associated with sleep Restless legs Right hip pain, Order for future visit FUTURE - Follow-Up Appointment Request CODYY, *Est. 09/06/24 +/- 28 days, Future Order, In [facility], [facility] ?? Problem List/Past Medical History Ongoing Anxiety disorder Chronic obstructive lung disease Chronic pain disorder Claustrophobia Degeneration of lumbar intervertebral disc Diarrhea Excessive daytime sleepiness Gastroesophageal reflux disease History of pyloric channel ulcer Hyponatremia Hypoxemia associated with sleep Insomnia Low back pain Lumbar spondylosis Lumbosacral radiculopathy Mixed urinary incontinence Nicotine dependence Overweight Peptic ulcer Pyloric stenosis Restless legs Right hip pain SOB (shortness of breath) on exertion Tobacco user Historical Procedure/Surgical History ? ?Vaginal total hysterectomy, A&P repair, uterosacral vag-vault suspension, prolapse (04/21/2021)???Laparoscopic bypass gastrojejunostomy (02/29/2020)???EGD - Esophagogastroduodenoscopy (08/09/2019)???Colonoscopy (04/13/2019)???Pyloroplasty (03/22/2010)???Right-Oophorectomy (06/08/1979)???Ectopic w/ left salpingectomy???Tubal ligation Medications What How Much When Why Instructions Unchanged albuterol (Albuterol (Eqv-ProAir HFA) 90 mcg/ inh inhalation aerosol) 2 Puffs Inhale (breathe in) Every 4 hours COPD mixed type Contact prescribing physician if questions or concerns ?? Unchanged apixaban (apixaban 5 mg oral tablet) 1 tab Oral (given by mouth) 2 times a day Right pulmonary embolus Contact prescribing physician if questions or concerns ?? Unchanged ascorbic acid (Vitamin C 500 mg oral tablet) 1 tab Oral (given by mouth) Every day Contact prescribing physician if questions or concerns ?? Unchanged azithromycin (azithromycin 250 mg oral tablet) See instructions COPD exacerbation Take 2 tabs on day 1 and 1 tab on day 2-5 Contact prescribing physician if questions or concerns ?? Unchanged budesonide/ glycopyrrolate/ formoterol (Breztri Aerosphere 160 mcg-9 mcg-4.8 mcg/ inh inhalation aerosol) 2 Puffs Inhale (breathe in) 2 times a day rinse mouth and throat after use Contact prescribing physician if questions or concerns ?? Unchanged budesonide/ glycopyrrolate/ formoterol (Breztri Aerosphere 160 mcg-9 mcg-4.8 mcg/ inh inhalation aerosol) 2 Puffs Inhale (breathe in) 2 times a day rinse mouth and throat after use Contact prescribing physician if questions or concerns ?? Unchanged Durable Medical Equipment for Prescription (COPD J44.1) See instructions COPD exacerbation Please include tubing and mouthpiece Contact prescribing physician if questions or concerns ?? Unchanged Durable Medical Equipment for Prescription (Oxygen Therapy) See instructions Contact prescribing physician if questions or concerns ?? Unchanged escitalopram (escitalopram 10 mg oral tablet) 1 tab Oral (given by mouth) Every day TAKE 1 TABLET BY MOUTH ONCE DAILY Contact prescribing physician if questions or concerns ?? Unchanged ferrous sulfate (ferrous sulfate 325 mg (65 mg elemental iron) oral delayed release tablet) 1 tab Oral (given by mouth) Every day Contact prescribing physician if questions or concerns ?? Unchanged ibuprofen 200 Milligrams Oral (given by mouth) As needed for as needed for pain Contact prescribing physician if questions or concerns ?? Unchanged ipratropium-albuterol (ipratropium-albuterol 0.5 mg-2.5 mg/ 3 mL inhalation solution) Seeinstructions USE 1 AMPULE IN NEBULIZER EVERY 4 HOURS NEEDED FOR SHORTNESS OF BREATH FOR WHEEZING Contact prescribing physician if questions or concerns ?? Unchanged omeprazole (omeprazole 40 mg oral delayed release capsule) 1 Capsules Oral (given by mouth) Every day Contact prescribing physician if questions or concerns ?? Unchanged pramipexole (pramipexole 1 mg oral tablet) See instructions Take 2 tablets by mouth twice daily Contact prescribing physician if questions or concerns ?? Unchanged predniSONE (predniSONE 10 mg oral tablet) See Instruction Oral (given by mouth) Every day COPD exacerbation 4 tabs daily x3 days, 3 tabs daily x3 days, 2 tabs daily x3 days, 1 tab daily x3 days Contact prescribing physician if questions or concerns ?? Unchanged traMADol (traMADol 50 mg oral tablet) 2 tab Oral (given by mouth) Every 8 hours as needed for as needed for pain Contact prescribing physician if questions or concerns ?? Allergies No Known Medication Allergies Social History Alcohol Current, Daily- Comments: 1 Kahlua and milk/day Electronic Cigarette/Vaping Electronic Cigarette Use: Former use, quit more than 90 days ago. 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 Home/Environment Lives with Spouse. Nutrition/Health Caffeine intake amount: rarely. Sexual Other contraceptive use: [id number]. Substance Use Never Tobacco Current everyday tobacco user Tobacco Use:. 1.5 PPD per day. Never Smokeless Tobacco use:. Family History CA - Cancer of colon: Mother. CA - Cancer of kidney: Sister. Diabetes mellitus: Sister. Heart disease: Mother. Lung cancer: Father. Family Member(s): ?? FATHER, at age: Unknown. Cause of : Family Member(s): ?? MOTHER, at age: Unknown. Cause of : Immunizations Vaccine Date Status influenza, unspecified formulation 02/16/2023 Recorded pneumococcal 23-polyvalent vaccine 05/15/2022 Recorded Comments : William SARS-COV-2 (COVID-19) vaccine, unspecifi 03/18/2022 Recorded Comments : Moderna bivalent, 6+ months, blue cap influenza, unspecified formulation - Not Given Comments : Patient Refuses influenza, high-dose, quadrivalent Patient Declined Last Modified by SOWMYA MCMILLAN Telecom Coordinator ??06-21-2020, 11:26 influenza virus vaccine, live 04/30/2021 Recorded SARS-CoV-2 (COVID-19) mRNA-1273 vaccine 09/17/2020 Recorded SARS-CoV-2 (COVID-19) mRNA-1273 vaccine 08/21/2020 Recorded influenza, unspecified formulation 04/09/2020 Recorded Comments : influenza, high-dose, quadrivalent VIS given: 04-09-2020 VIS published date: Inactivated Influenza 01/20/2019 Administered by [facility] ??04-09-2020 influenza, unspecified formulation 03/24/2019 Recorded Comments : influenza, trivalent, adjuvanted VIS given: 03-24-2019 VIS published date: Inactivated Influenza 01/20/2019 Administered by [facility]OMPK[facility] ??03-24-2019 tetanus-diphth toxoids (Td) adult/adol 10/18/2018 Recorded pneumococcal 13-valent conjugate vaccine 04/19/2018 Recorded influenza virus vaccine, live 03/16/2018 Recorded influenza virus vaccine, inactivated 05/03/2017 Recorded influenza, unspecified formulation 05/09/2016 Recorded Comments : influenza, high dose seasonal Administered by: SULTANA influenza virus vaccine, live 05/25/2015 Recorded influenza virus vaccine, inactivated 04/26/2014 Recorded influenza virus vaccine, inactivated 03/10/2013 Recorded zoster vaccine live 10/06/2012 Recorded influenza virus vaccine, inactivated 03/25/2012 Recorded influenza virus vaccine, inactivated 03/19/2010 Recorded influenza virus vaccine, inactivated 03/08/2010 Recorded influenza virus vaccine, inactivated 05/21/2009 Recorded influenza virus vaccine, inactivated 05/16/2009 Recorded pneumococcal 23-polyvalent vaccine 08/14/2008 Recorded influenza virus vaccine, inactivated 03/16/2008 Recorded influenza virus vaccine, inactivated 03/17/2007 Recorded rubella virus vaccine Recorded hepatitis B adult vaccine Recorded measles/mumps/rubella virus vaccine Recorded varicella virus vaccine Recorded Electronically Signed on 09/07/23 10:45 AM Jaimee Cerda PALM GATHERER * Jaimee Cerda PALM GATHERER: PERFORM Event Display: Office Clinic Note Physician Authored Date: [id number] 09/07/2023 ferritin 39, since she can't tolerate vit C tabs I suggested she have a glass of OJ with her iron to help with absorption. Electronically Signed on 09/07/23 01:17 PM Jaimee Cerda PALM GATHERER Patient Care team information Care Team Personnel Name: Dilan Hernandez MD Position: Physician Member Role: Informed Provider Address: Address: [address] [address]- Care Team Related Persons Name: LIAM QUIGLEY Address: [address], [address] Address: [address] [id number] Address: Mailing [address] [place] [phone] Name: GRACIELA COUCH Address: Home [address] [place] [address], [phone]
--- OUTSIDE RECORDS SUMMARY | 2024-07-07 20:02 | XMS_ITS | Continuity of Care Document ---
Author Organization [facility] Address [address] [place] [address] Care Team Providers Care Heel Cover Splitter Name Role Phone Dilan Hernandez Primary Care Physician [phone] Encounter [facility] Date(s): 02/04/24 - 02/04/[address] [address] Discharge Disposition: Home or Self Care Attending Physician: Dilan Hernandez MD Admitting Physician: Dilan Hernandez MD Referring Physician: Dilan Hernandez MD Allergies, Adverse Reactions, Alerts No Known Medication Allergies Assessment and Plan Future Appointments Future Scheduled Tests Laboratory* Drug Screen Urine 09/28/23 Immunizations Given and [...] Inactivated Influenza 01/20/2019 Administered by NOEMÍ HERNANDEZ, Mica Splitter 04-09-2020 2Result Comment: influenza, trivalent, adjuvanted VIS given: 03-24-2019 VIS published date: Inactivated Influenza 01/20/2019 Administered by SOWMYA MCMILLAN, Mica Splitter 03-24-2019 3Result Comment: influenza, high dose seasonal Administered by: SULTANA 4Result Comment: William 5Result Comment: Moderna bivalent, 6+ months, blue cap 6Result Comment: influenza, high-dose, quadrivalent Patient Declined Last Modified by SOWMYA MCMILLAN Mica Splitter 06-21-2020, 11:26 Medications Albuterol (Eqv-ProAir HFA) 90 mcg/inh inhalation aerosol 2 puffs, Inhale, every 4 hr, # 8.5 g, 6 Refill(s), Pharmacy: [facility], 155, cm, 05/04/23 10:37:00 EST, Height, 81.6, kg, 07/01/23 15:10:00 EST, Weight Dosing Start Date: 07/01/23 Status: Ordered Ativan 0.5 mg oral tablet See Instructions, Take one tablet 30-60 min prior to procedure. DO NOT DRIVE TO AND FROM APPT., # 1tab, 0 Refill(s), Pharmacy: [facility], 153.3, cm, 09/17/23 12:47:00 EDT, Height, 81.5, kg, 12/17/23 9:09:00 EDT, Weight Dosing Start Date: 12/25/23 Status: Ordered Breztri Aerosphere 160 mcg-9 mcg-4.8 mcg/inh inhalation aerosol 2 puffs, Inhale, BID, rinse mouth and throat after use, # 5.9 g, 0 Refill(s) Start Date: 09/07/23 Status: Ordered cephalexin 250 mg oral capsule See Instructions, TAKE 1 CAPSULE BY MOUTH ONCE DAILY, # 90 cap, 0 Refill(s), Pharmacy: [facility], 153.3, cm, 09/17/23 12:47:00 EDT, [...] DAILY, # 90 tab, 3 Refill(s), Pharmacy: [facility], 155, cm, 05/04/23 10:37:00 EST, Height, 81.6, kg, 07/01/23 15:10:00 EST, Weight Dosing Start Date: 07/01/23 Status: Ordered ferrous sulfate 325 mg (65 mg elemental iron) oral delayed release tablet 325 mg = 1 tab, Oral, Daily, # 90 tab, 0 Refill(s), Pharmacy: [facility], 156, cm, 03/27/22 9:33:00 [...] WHEEZING, # 360 EA, 4 Refill(s), Pharmacy: [facility], 153.3, cm, 09/17/23 12:47:00 EDT, Height, 81.5, kg, 12/17/23 9:09:00 EDT, Weight Dosing Start Date: 12/17/23 Status: Ordered omeprazole 40 mg oral delayed release capsule 40 mg = 1 cap, Oral, Daily, # 90 cap, 3 Refill(s), Pharmacy: [facility], 155, cm, 12/04/22 20:52:00 EDT, Height/Length Dosing, 69.4, kg, 12/04/22 20:52:00 EDT, Weight Dosing Start Date: 01/29/23 Status: Ordered ondansetron 8 mg oral tablet See Instructions, PRN nausea, 1 tab Oral every 6 hours as needed for nausea, # 56 tab, 0 Refill(s),Pharmacy: [facility], 153.3, cm, 09/17/23 12:47:00 EDT, Height, 81.65, kg, 09/17/23 12:54:00 EDT, Weight Dosing Start Date: 10/14/23 Status: Ordered Oxygen Therapy Supply, See instructions, # 1 EA, 0 Refill(s) Start Date: 11/19/22 Status: Ordered pramipexole 1 mg oral tablet See Instructions, Take 2 tablets by mouth twice daily, # 120 tab, 6 Refill(s), Pharmacy: [id number], 155, cm, 05/04/23 10:37:00 EST, Height, 78.97, kg, 05/14/23 10:34:00 EST, Weight Dosing Start Date: 05/29/23 Status: Ordered semaglutide 0.5 mg/0.5 mL (0.5 mg dose) subcutaneous solution 0.5 mg =, Subcutaneous, every week, in the abdomen, thigh, or upper arm, # 2 mL, 1 Refill(s), Pharmacy: [facility], 153.3, cm, 09/17/23 12:47:00 EDT, Height, 81.9, kg, 02/01/24 13:10:00 EDT, Weight Dosing Start Date: 02/04/24 Stop Date: 03/31/24 Status: Ordered torsemide 10 mg oral tablet 10 mg = 1 tab, Oral, Daily, # 30 tab, 0 Refill(s), Pharmacy: [facility], 153.3, cm, 09/17/23 12:47:00 EDT, Height, 81.5, kg, 12/17/23 9:09:00 EDT, Weight Dosing Start Date: 01/12/24 Status: Ordered traMADol 50 mg oral tablet 100 mg = 2 tab, Oral, every 8 hr, PRN as needed for pain, # 168 tab, 0 Refill(s), Pharmacy: [facility] [address], 154, cm, 08/21/23 11:26:00 EDT, Height, 82.7, kg, 08/27/23 8:05:00 EDT, Weight Dosing Start Date: 08/31/23 Status: Ordered Vitamin C 500 mg oral tablet 500 mg = 1 tab, Oral, Daily, # 90 tab, 0 Refill(s), Pharmacy: [facility], 156, cm, 03/27/22 9:33:00 [...] Overview: Added automatically from request for surgery [id number] 2Outside Source Comment: Overview: Added automatically from request for surgery [id number] Procedures Procedure Date Related Diagnosis Body Site [...] 5 year call-back 5[facility] 6right, d/t cyst [id number] with Left salpingectomy Results Laboratory List Name Date Basic Metabolic Panel (BMP) 02/04/24 Thyroid Stimulating Hormone (TSH) 4 Most recent to oldest [Reference Range]: 1 BUN [7-18 mg/dL] 25 mg/dL *HI* (02/04/24 3:13 PM) Glucose Level [74-106 mg/dL] 137 mg/dL *HI* (02/04/24 3:13 PM) Potassium Level [3.5-5.1 mmol/L] 3.2 mmo l/L *LOW* (02/04/24 3:13 PM) Sodium Level [136-145 mmol/L] 139 mmol/L (02/04/24 3:13 PM) Calcium Level [8.5-10.1 mg/dL] 9.2 mg/dL (02/04/24 3:13 PM) CO2 [21-32 mmol/L] 32 mmol/L (02/04/24 3:13 PM) TSH [0.358-3.740 mcIntlUnit/mL] 3.016 mc IntlUnit/mL (02/04/24 3:13 PM) eGFR Non-AA [>=60] 40 *LOW* (02/04/24 3:13 PM) eGFR AA [>=60] 40 *LOW* (02/04/24 3:13 PM) Chloride Level [98-107 mmol/L] 98 mmol/L (02/04/24 3:13 PM) Creatinine Level [0.55-1.02 mg/dL] 1.40 mg/dL *HI* (02/04/24 3:13 PM) Social History Social History Type Response Smoking Status Smoking tobacco use: Current everyday tobacco user;Never; Number used per day: 1.5 PPD; entered on: 06/15/23 Sex Female Sex Representation Female (finding) History and physical note * Event Display: History and Physical Update Authored Date: [id number] Patient Care team information Care Team Personnel Name: Dilan Hernandez MD Position: Physician Member Role: Informed Provider Address: [address] Care Team Related Persons Name: LIAM QUIGLEY Name: GRACIELA COUCH Insurance Providers Guarantor name: AUBREE COUCH Health Plan Information #: 1 Payer: [employer] PPO Member Number: [id number] Policy Number: NA Health Plan Information #: 2 Payer: [employer] PPO Member Number: [id number] Policy Number: NA
--- OUTSIDE RECORDS SUMMARY | 2024-07-07 20:02 | XMS_ITS | Continuity of Care Document ---
Author Organization [facility] Address [address] [place] [address] Care Team Providers Care Senior Care Provider Name Role Phone Mickie Suero Primary Care Physicia n Encounter [facility] Date(s): 07/04/24 - 07/04/[address] [address] Discharge Disposition: Home or Self Care Attending Physician: Zita De La O MD Admitting Physician: Zita De La O MD Referring Physician: Zita De La O MD Encounter Type: Outpatient Allergies, Adverse Reactions, Alerts No Known Medication Allergies Substance Criticality Severity Reaction Reaction Severity Status pregabalin High criticality Moderate Ac tive Bactrim DS High criticality Moderate Joint pain A ctive Assessment and Plan Future Appointments Future Scheduled Tests Laboratory* Basic Metabolic Panel 02/17/24 Immunizations Given and Recorded Vaccine Date Status [...] SARS-COV-2 (COVID-19) vaccine, unspecifi 8 03/18/22 Recorded SARS-CoV-2 (COVID-19) mRNA-1273 vaccine 05/13/21 R ecorded SARS-CoV-2 (COVID-19) mRNA-1273 vaccine 09/17/20 R ecorded SARS-CoV-2 (COVID-19) mRNA-1273 vaccine 08/21/20 R ecorded influenza virus vaccine, live 04/30/21 Recorded influenza virus vaccine, live 03/16/18 Recorded influenza virus vaccine, live 05/25/15 Recorded tetanus-diphth toxoids (Td) adult/adol 10/18/18 Re corded pneumococcal 13-valent conjugate vaccine 04/19/18 Recorded zoster vaccine live 10/06/12 Recorded tetanus/diphth/pertuss (Tdap) adult/adol 03/24/07 Recorded rubella virus vaccine 06/08/00 Recorded hepatitis B adult vaccine 06/08/00 Recorded measles/mumps/rubella virus vaccine 06/08/00 Recor ded varicella virus vaccine 06/08/00 Recorded Not Given Vaccine Date Status Refusal Reason influenza, unspecified formulation 6 01/29/22 Not Given Patient Refuses 1Result Comment: right arm,exp 12/05/2024, lot [id number] at [facility] 2Result Comment: left arm, exp 10/28/2024, lot [id number] at [facility] 3Result Comment: influenza, high-dose, quadrivalent VIS given: 04-09-2020 VIS published date: Inactivated Influenza 01/20/2019 Administered by NOEMÍ HERNANDEZ, Knitting Machine Operator Automatic 04-09-2020 4Result Comment: influenza, trivalent, adjuvanted VIS given: 03-24-2019 VIS published date: Inactivated Influenza 01/20/2019 Administered by SOWMYA MCMILLAN, Knitting Machine Operator Automatic 03-24-2019 5Result Comment: influenza, high dose seasonal Administered by: SULTANA 6Result Comment: William 7Result Comment: Moderna bivalent, 6+ months, blue cap 8Result Comment: influenza, high-dose, quadrivalent Patient Declined Last Modified by SOWMYA MCMILLAN, Knitting Machine Operator Automatic 06-21-2020, 11:26 Medications Albuterol (Eqv-ProAir HFA) 90 mcg/inh inhalation aerosol 2 puffs, Inhale, every 4 hr, # 18 g, 6 Refill(s), Pharmacy: [facility], 153.3, cm, 09/17/23 12:47:00 EDT, Height, 80.25, kg, 02/17/24 13:55:00 EDT, Weight Dosing Start Date: 02/17/24 Status: Ordered Quantity: 18.0 Unit: g Repeat number: 7 Indication: Chronic obstructive pulmonary disease, unspecified Breztri Aerosphere 160 mcg-9 mcg-4.8 mcg/inh inhalation aerosol 2 puffs, Inhale, BID, rinse mouth and throat after use, # 10.7 g, 6 Refill(s), Pharmacy: [facility], 153.3, cm, 09/17/23 12:47:00 EDT, Height, 80.25, kg, 02/17/24 13:55:00 EDT, Weight Dosing Start Date: 02/17/24 Status: Ordered Quantity: 10.7 Unit: g Repeat number: 7 COPD J44.1 COPD J44.1, Please include tubing and mouthpiece, Supply, See instructions, # 1 EA, 0 Refill(s) Start Date: 12/15/22 Status: Ordered Quantity: 1.0 Unit: EA Repeat number: 1 Indication: Chronic obstructive pulmonary disease with (acute) exacerbation Diurex Water Capsules 50 mg =, Oral, Daily, 0 Refill(s) Start Date: 05/24/24 Status: Ordered Repeat number: 1 escitalopram 10 mg oral tablet 10 mg = 1 tab, Oral, Daily, TAKE 1 TABLET BY MOUTH ONCE DAILY, # 90 tab, 3 Refill(s), Pharmacy: [facility], 155, cm, 05/04/23 10:37:00 EST, Height, 81.6, kg, 07/01/23 15:10:00 EST, Weight Dosing Start Date: 07/01/23 Status: Ordered Quantity: 90.0 Unit: tab Repeat number: 4 ferrous sulfate 325 mg (65 mg elemental iron) oral delayed release tablet 325 mg = 1 tab, Oral, Daily, # 90 tab, 0 Refill(s), Pharmacy: [facility] [address], 156, cm, 03/27/22 9:33:00 EDT, Height/Length Dosing, 68.04, kg, 03/27/22 9:33:00 EDT, Weight Dosing Start Date: 08/15/22 Status: Ordered Quantity: 90.0 Unit: tab Repeat number: 1 ibuprofen 200 mg oral tablet 400 mg = 2 tab, Oral, every 4 hr, PRN as needed for pain, # 120 tab, 0 Refill(s) Start Date: 05/24/24 Status: Ordered Quantity: 120.0 Unit: tab Repeat number: 1 ipratropium-albuterol 0.5 mg-2.5 mg/3 mL inhalation solution See Instructions, USE 1 AMPULE IN NEBULIZER EVERY 4 HOURS NEEDED FOR SHORTNESS OF BREATH FOR WHEEZING, # 360 EA, 4 Refill(s), Pharmacy: [facility] [address], 153.3, cm, 09/17/23 12:47:00 EDT, Height, 81.5, kg, 12/17/23 9:09:00 EDT, Weight Dosing Start Date: 12/17/23 Status: Ordered Quantity: 360.0 Unit: EA Repeat number: 5 levoFLOXacin 750 mg oral tablet 750 mg = 1 tab, Oral, every 24 hr, # 5 tab, 0 Refill(s), Pharmacy: [facility] [address], 155, cm, 05/24/24 22:30:00 EST, Height, 70.95, kg, 05/24/24 22:31:00 EST, Weight Dosing Start Date: 05/26/24 Stop Date: 05/31/24 Status: Ordered Quantity: 5.0 Unit: tab Repeat number: 1 nicotine 21 mg/24 hr transdermal film, extended release 1 patches, Transdermal, Daily, apply to skin, # 30 patches, 1 Refill(s), Pharmacy: [facility], 153.3, cm, 09/17/23 12:47:00 EDT, Height, 74, kg, 04/25/24 14:11:00 EST, Weight Dosing Start Date: 04/25/24 Status: Ordered Quantity: 30.0 Unit: patches Repeat number: 2 Indication: Nausea nicotine 4 mg oral transmucosal gum 4 mg = 1 EA, Chewed, every 2 hr, PRN as needed for smoking cessation, # 160 EA, 1 Refill(s), Pharmacy: [facility]156, 153.3, cm, 09/17/23 12:47:00 EDT, Height, 74, kg, 04/25/24 14:11:00 EST, Weight Dosing Start Date: 04/25/24 Status: Ordered Quantity: 160.0 Unit: EA Repeat number: 2 Indication: Nausea omeprazole 40 mg oral delayed release capsule 40 mg = 1 cap, Oral, Daily, # 90 cap, 3 Refill(s), Pharmacy: [facility]156, 155, cm, 05/24/24 22:30:00 EST, Height, 70.95, kg, 05/24/24 22:31:00 EST, Weight Dosing Start Date: 05/27/24 Status: Ordered Quantity: 90.0 Unit: cap Repeat number: 4 ondansetron 8 mg oral tablet See Instructions, PRN nausea, 1 tab Oral every 6 hours as needed for nausea, # 56 tab, 1 Refill(s),Pharmacy: [facility], 153.3, cm, 09/17/23 12:47:00 EDT, Height, 74, kg, 04/25/24 14:11:00 EST, Weight Dosing Start Date: 04/25/24 Status: Ordered Quantity: 56.0 Unit: tab Repeat number: 2 Indication: Nausea Oxygen Therapy Supply, See instructions, # 1 EA, 0 Refill(s) Start Date: 11/19/22 Status: Ordered Quantity: 1.0 Unit: EA Repeat number: 1 Ozempic (1 mg dose) 4 mg/3 mL subcutaneous solution 1 mg =, Subcutaneous, every week, # 9 mL, 3 Refill(s), Pharmacy: [facility], 153.3, cm, 09/17/23 12:47:00 EDT, Height, 80.25, kg, 02/17/24 13:55:00 EDT, Weight Dosing Start Date: 03/23/24 Status: Ordered Quantity: 9.0 Unit: mL Repeat number: 4 Indication: Type 2 diabetes mellitus without complications potassium bicarbonate 20 mEq oral tablet, effervescent 20 mEq = 1 tab, Oral, BID, dissolve in water or juice, # 60 tab, 1 Refill(s), Pharmacy: [facility], 153.3, cm, 09/17/23 12:47:00 EDT, Height, 80.25, kg, 02/17/24 13:55:00 EDT, Weight Dosing Start Date: 02/17/24 Status: Ordered Quantity: 60.0 Unit: tab Repeat number: 2 pramipexole 1 mg oral tablet See Instructions, Take 1 tablets by mouth QAM and two tablets QPM, # 90 tab, 6 Refill(s), Pharmacy:[facility] [address], 153.3, cm, 09/17/23 12:47:00 EDT, Height, 80.25, kg, 02/17/24 13:55:00 EDT, Weight Dosing Start Date: 02/24/24 Status: Ordered Quantity: 90.0 Unit: tab Repeat number: 7 spironolactone 25 mg oral tablet 12.5 mg =, Oral, Daily, # 30 tab, 0 Refill(s) Start Date: 05/24/24 Status: Ordered Quantity: 30.0 Unit: tab Repeat number: 1 torsemide 20 mg oral tablet 40 mg = 2 tab, Oral, Daily, # 60 tab, 1 Refill(s), Pharmacy: [facility], 153.3, cm, 09/17/23 12:47:00 EDT, Height, 74, kg, 04/25/24 14:11:00 EST, Weight Dosing Start Date: 05/17/24 Status: Ordered Quantity: 60.0 Unit: tab Repeat number: 2 Vitamin C 500 mg oral tablet 500 mg = 1 tab, Oral, Daily, # 90 tab, 0 Refill(s), Pharmacy: [facility], 156, cm, 03/27/22 9:33:00 EDT, Height/Length Dosing, 68.04, kg, 03/27/22 9:33:00 EDT, Weight Dosing Start Date: 08/15/22 Status: Ordered Quantity: 90.0 Unit: tab Repeat number: 1 Vitamin D3 50 mcg (2000 intl units) oral tablet, chewable 50 mcg = 1 tab, Oral, Daily, # 30 EA, 0 Refill(s) Start Date: 06/14/24 Status: Ordered Quantity: 30.0 Unit: EA Repeat number: 1 Problem List Condition Confirmation Course Effective Dates Status H ealth Status Informant Anxiety disorder Confirmed Active Choreiform movements Confirmed 09/08/22 Active Chronic obstructive lung disease Confirmed Active Chronic pain disorder Confirmed Active Chronic UTI Confirmed Active Claustrophobia Confirmed Active Excessive daytime sleepiness Confirmed Active Daytime somnolence Confirmed 01/28/24 Active Degeneration of lumbar intervertebral disc 1 Confirmed 08/23/20 Active Diabetes Confirmed Active Diarrhea Confirmed 09/06/18 Active SOB (shortness of breath) on exertion Confirmed Active Gastroesophageal reflux disease Confirmed Active Right hip pain Confirmed Active 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 Unilateral hydronephrosis 2 Confirmed 09/11/22 Active Hypokalemia Confirmed Active Hyponatremia Confirmed Active Insomnia Confirmed Active Low back pain Confirmed 10/02/20 Active Lumbar spondylosis 3 Confirmed 10/02/20 Active Lumbosacral radiculopathy Confirmed Active Mixed urinary incontinence Confirmed Active Nicotine dependence Confirmed Active Overweight Confirmed Active Peptic ulcer Confirmed Active Prediabetes Confirmed Active Pyloric stenosis Confirmed 01/19/19 Active Restless legs Confirmed 03/05/20 Active Hypoxemia associated with sleep Confirmed Active Tobacco user Confirmed Active 1Outside Source Comment: Overview: Added automatically from request for surgery [id number] 2Right hydronephrosis 3Outside Source Comment: Overview: Added automatically from request for surgery [id number] Procedures Procedure Date Related Diagnosis Body Site Status Colonoscopy, flexible, proxi mal to splenic flexure; with removal of tumor(s), polyp(s), or other lesion(s) by snare technique 02/16/24 Completed Pulmonary function test 02/17/23 C ompleted Computed tomography (CT) of neck, thorax, abdomen and pelvis with contrast 09/08/22 Completed Lumbar puncture 1 09/07/22 Complet ed Transthoracic echocardiography 09/07/22 Completed Vaginal total hysterectomy, A&P repair, uterosacral vag-vault suspension, prolapse 2 04/20/21 Completed Laparoscopic bypass gastroje junostomy 3 02/29/20 Completed EGD - Esophagogastroduodenoscopy 4 08/08/19 Completed Colonoscopy 5 04/12/19 Completed Pyloroplasty 6 03/22/10 Completed Right-Oophorectomy 7 06/07/79 Comp leted Ectopic w/ left salpingectomy 8 Completed Tubal ligation Completed 1Obtained CSF due to choreiform movements. 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 01/03/15 right sided diverticulosis, polyp; 05/17/2009, 5 year call-back 6[facility] 7right, d/t cyst 07777/1982 with Left salpingectomy Social History Social History Type Response Tobacco Current everyday tob acco user Tobacco Use:. 1.5 packs per day per day. Sex Female Sex Representation Female (finding) Pulmonary function study * Dolores Treviño: PERFORM Event Display: Pulmonary Function Studies Authored Date: * Event Display: Pulmonary Function Studies Please click on link to view image. * Sabrina Hua MD: PERFORM Event Display: Pulmonary Function Studies Authored Date: Good patient effort 2020 ATS/ERS interpretation guidelines used Spirometry: Shows mild obstructive airways disease, no bronchodilator testing was carried out Lung volumes: Not carried out Diffusion capacity: Normal Airways resistance: Not measured Impression: Mild obstructive airways disease, no bronchodilator testing was carried out, coca mitten restriction cannot be assessed without total lung capacity measurement Clinical correlation recommended Electronically Signed on 07/04/2024 16:22 EST Sabrina Hua MD History and physical note * Event Display: History and Physical Update Authored Date: [id number] Patient Care team information Care Team Personnel Name: Mickie Suero MD Position: Physician Member Role: Primary Care Physician Address: [place] [id number] Telecom: Name: Dilan Hernandez MD Position: Physician Member Role: Informed Provider Address: [place] [id number] Telecom: Care Team Related Persons Name: LIAM QUIGLEY Name: GRACIELA COUCH Insurance Providers Guarantor name: AUBREE COUCH Health Plan Information #: 1 Payer: [employer] PPO Member Number: [id number] Policy Number: NA Group Number: NA Health Plan Information #: 2 Payer: [employer] PPO Member Number: [id number] Policy Number: NA Group Number: NA
--- OUTSIDE RECORDS SUMMARY | 2024-07-07 20:02 | XMS_ITS | Continuity of Care Document ---
Author Organization [facility] Address [address] [place] [address] Care Team Providers Care Calibration Laboratory Technician Name Role Phone Dilan Hernandez Primary Care Physician Encounter [facility] [id number] Date(s): 06/23/23 - 06/23/23 [facility] [address] [place] [address] Encounter Diagnosis Abnormal radiologic findings on diagnostic imaging of renal pelvis, ureter, or bladder(Discharge Diagnosis) - 06/23/23 Recurrent urinary tract infection(Discharge Diagnosis) - 06/23/23 Discharge Disposition: Home or Self Care Attending Physician: Jalen Luong MD Admitting Physician: Jalen Luong MD Referring Physician: Jalen Luong MD Allergies, Adverse Reactions, Alerts No Known [...] Inactivated Influenza 01/20/2019 Administered by NOEMÍ HERNANDEZ Lift Supervisor 04-09-2020 2Result Comment: influenza, trivalent, adjuvanted VIS given: 03-24-2019 VIS published date: Inactivated Influenza 01/20/2019 Administered by SOWMYA MCMILLAN Lift Supervisor 03-24-2019 3Result Comment: influenza, high dose seasonal Administered by: SULTANA 4Result Comment: William 5Result Comment: influenza, high-dose, quadrivalent Patient Declined Last Modified by SOWMYA MCMILLAN Lift Supervisor 06-21-2020, 11:26 Medications Albuterol (Eqv-ProAir HFA) 90 mcg/inh inhalation aerosol 2 puffs, Inhale, every 4 hr, # 8.5 g, 6 Refill(s), Pharmacy: [id number], 156, cm, 03/27/22 9:33:00 EDT, Height/Length Dosing, 68.04, kg, 03/27/22 9:33:00 EDT, Weight Dosing Start Date: 09/29/22 Status: Ordered apixaban 5 mg oral tablet 5 mg = 1 tab, Oral, BID, # 60 tab, 3 Refill(s), Pharmacy: [facility], 155, cm, 05/04/23 10:37:00 EST, Height, 80, [...] DAILY, # 90 tab, 3 Refill(s), Pharmacy: [place] [address], 156, cm, 03/27/22 9:33:00 EDT, Height/Length Dosing, 68.04, kg, 03/27/22 9:33:00EDT, Weight Dosing Start Date: 05/12/22 Status: Ordered ferrous sulfate 325 mg (65 mg elemental iron) oral delayed release tablet 325 mg = 1 tab, Oral, Daily, # 90 tab, 0 Refill(s), Pharmacy: [place] [address], 156, cm, 03/27/22 9:33:00 EDT, Height/Length Dosing, 68.04, kg, 03/27/22 9:33:00 EDT, Weight Dosing Start Date: 08/15/22 Status: Ordered ipratropium-albuterol 0.5 mg-2.5 mg/3 mL inhalation solution See Instructions, USE 1 AMPULE IN NEBULIZER EVERY 4 HOURS NEEDED FOR SHORTNESS OF BREATH OR WHEEZING, # 90 mL, 4 Refill(s), Pharmacy: [facility], 154, cm, 04/03/23 18:11:00 EDT, Height/Length Dosing, 76.6, kg, 04/15/23 11:00:00 EST, Weight Dosing Start Date: 04/15/23 Status: Ordered Lyrica 25 mg oral capsule 25 mg = 1 cap, Oral, TID, # 90 cap, 3 Refill(s), Pharmacy: [facility], 155, cm, 05/04/2310:37:00 EST, Height, 78.97, kg, 05/14/23 10:34:00 EST, Weight Dosing Start Date: 05/14/23 Status: Ordered omeprazole 40 mg oral delayed release capsule 40 mg = 1 cap, Oral, Daily, # 90 cap, 3 Refill(s), Pharmacy: [place] [address], 155, cm, 12/04/22 20:52:00 EDT, Height/Length Dosing, 69.4, kg, 12/04/22 20:52:00 EDT, Weight Dosing Start Date: 01/29/23 Status: Ordered Oxygen Therapy Supply, See instructions, # 1 EA, 0 Refill(s) Start Date: 11/19/22 Status: Ordered Ozempic 2 mg/3 mL (0.25 mg or 0.5 mg dose) subcutaneous solution 0.25 mg =, Subcutaneous, every week, rotate injection sites, # 1 EA, 0 Refill(s), Pharmacy: [place] [id number], 154, cm, 04/03/23 18:11:00 EDT, Height/Length Dosing, 76.35, kg, 04/23/23 14:48:00 EST, Weight Dosing Start Date: 04/27/23 Status: Ordered pramipexole 1 mg oral tablet See Instructions, Take 2 tablets by mouth twice daily, # 120 tab, 6 Refill(s), Pharmacy: [facility], 155, cm, 05/04/23 10:37:00 EST, Height, 78.97, kg, 05/14/23 10:34:00 EST, Weight Dosing Start Date: 05/29/23 Status: Ordered pramipexole 1 mg oral tablet See Instructions, 0 Refill(s) Start Date: 04/15/23 Status: Ordered traMADol 50 mg oral tablet 50 mg = 1 tab, Oral, every 4 hr, PRN as needed for pain, # 28 tab, 0 Refill(s), Pharmacy: [place] [address], 155, cm, 05/04/23 10:37:00 EST, Height, 80, kg, 06/18/23 15:33:00 EST, Weight Dosing Start Date: 06/18/23 Status: Ordered Trelegy Ellipta 100 mcg-62.5 mcg-25 mcg/inh inhalation powder See Instructions, INHALE 1 PUFF ONCE DAILY AT THE SAME TIME EACH DAY, # 60 EA, 4 Refill(s), Pharmacy: [facility], 155, cm, 12/04/22 20:52:00 EDT, Height/Length Dosing, 69.4, kg, 12/04/22 20:52:00 EDT, Weight Dosing Start Date: 03/17/23 Status: Ordered Vitamin C 500 mg oral tablet 500 mg = 1 tab, Oral, Daily, # 90 tab, 0 Refill(s), Pharmacy: [facility], 156, cm, 03/27/22 [...] Overview: Added automatically from request for surgery [id number] 2Outside Source Comment: Overview: Added automatically from request for surgery [id number] Procedures Procedure Date Related Diagnosis Body Site [...] 5 year call-back 5Sisson 6right, d/t cyst [id number] with Left salpingectomy Social History Social History Type Response Smoking Status Smoking tobacco use: Current everyday tobacco user;Never; Number used per day: 1.5 PPD; entered on: 06/15/23 Sex Female History and physical note * Event Display: History and Physical Update Authored Date: [id number] Patient Care team information Care Team Personnel Name: Dilan Hernandez MD Position: Physician Member Role: Informed Provider Address: Address: [address] Care Team Related Persons Name: LIAM QUIGLEY Address: [address] [address] Address: Home [address] [place] [phone] Address: Mailing [address] [place] [phone] Name: GRACIELA COUCH Address: Home [address] [place] [phone]
--- OUTSIDE RECORDS SUMMARY | 2024-07-07 20:02 | XMS_ITS | Continuity of Care Document ---
Author Organization [facility] Address [address] [place] [address] Care Team Providers Care Barrel Inspector Tight Name Role Phone Dilan Hernandez Primary Care Physician Encounter [facility] [id number] Date(s): 06/24/24 - 06/24/[address] [address] Encounter Diagnosis Low O2 saturation(Discharge Diagnosis) - 06/24/24 COPD exacerbation(Discharge Diagnosis) - 06/24/24 Hypokalemia(Discharge Diagnosis) - 06/24/24 Discharge Disposition: Home or Self Care Attending Physician: Gold White MD Admitting Physician: Gold White MD Referring Physician: Gold White MD Encounter Type: Emergency Allergies, Adverse Reactions, Alerts No Known Medication Allergies Substance Criticality Severity Reaction Reaction Severity Status pregabalin High criticality Moderate Ac tive Bactrim DS High criticality Moderate Joint pain A ctive Assessment and Plan Extracted from: Title:ED Provider Note Author:Gold White MD Date:06/25/24 Assessment/Plan 1.??Low O2 saturation??R79.81 Ordered: predniSONE 20 mg oral tablet, 40 mg = 2 tab, Oral, Daily, X 5 days, # 10 tab, 0 Refill(s), 06/29/24 22:48:00 EST, Pharmacy: [facility], 155, cm, 05/24/24 22:30:00 EST, Height, 71, kg, 06/24/24 21:15:00 EST, Weight Dosing Discharge Patient, 06/24/24 22:48:00 EST, Home Independently, Constant Indicator ?? 2.??COPD exacerbation??J44.1 Ordered: predniSONE 20 mg oral tablet, 40 mg = 2 tab, Oral, Daily, X 5 days, # 10 tab, 0 Refill(s), 06/29/24 22:48:00 EST, Pharmacy: [facility], 155, cm, 05/24/24 22:30:00 EST, Height, 71, kg, 06/24/24 21:15:00 EST, Weight Dosing Discharge Patient, 06/24/24 22:48:00 EST, Home Independently, Constant Indicator ?? 3.??Hypokalemia??E87.6 Ordered: predniSONE 20 mg oral tablet, 40 mg = 2 tab, Oral, Daily, X 5 days, # 10 tab, 0 Refill(s), 06/29/24 22:48:00 EST, Pharmacy: [id number], 155, cm, 05/24/24 22:30:00 EST, Height, 71, kg, 06/24/24 21:15:00 EST, Weight Dosing Discharge Patient, 06/24/24 22:48:00 EST, Home Independently, Constant Indicator ?? Patient Education Hypokalemia Chronic Obstructive Pulmonary Disease, Ggig-oq-[id number] Follow Up With When Contact Information Dilan Hernandez MD Within 1 to [address] [place] [address]- ?? Additional Instructions: Future Appointments Future Scheduled Tests Laboratory* Basic [...] Refuses 1Result Comment: right arm,exp 12/05/2024, lot [id number] at [facility] 2Result Comment: left arm, exp 10/28/2024, lot [id number] at [facility] 3Result Comment: influenza, high-dose, quadrivalent VIS given: 04-09-2020 VIS published date: Inactivated Influenza 01/20/2019 Administered by NOEMÍ HERNANDEZ, [employer] 04-09-2020 4Result Comment: influenza, trivalent, adjuvanted VIS given: 03-24-2019 VIS published date: Inactivated Influenza 01/20/2019 Administered by SOWMYA MCMILLAN, [employer] 03-24-2019 5Result Comment: influenza, high dose seasonal Administered by: SULTANA 6Result Comment: William 7Result Comment: Moderna bivalent, 6+ months, blue cap 8Result Comment: influenza, high-dose, quadrivalent Patient Declined Last Modified by SOWMYA MCMILLAN [employer] 06-21-2020, 11:26 Problem List Condition Confirmation Course Effective Dates [...] Overview: Added automatically from request for surgery [id number] 2Right hydronephrosis 3Outside Source Comment: Overview: Added automatically from request for surgery [id number] Procedures Procedure Date Related Diagnosis Body Site [...] sided diverticulosis, polyp; 05/17/2009[facility] [address] with [facility] Results Laboratory List Name Date Blood Gas Venous 06/24/24 CBC w/ Diff 06/24/24 Comprehensive Metabolic Panel 06/24/24 NT- Pro BNP 06/24/24 Troponin-I 06/24/24 Automated Diff 06/24/24 Most recent to oldest [Reference Range]: 1 WBC [5.0-10.0 x10^3/mcL] 13.7 x10^3/mcL *HI* (06/24/24 9:40 PM) RBC [4.1-5.3 x10^6/mcL] 4.4 x10^6/mcL (06/24/24 9:40 PM) Neutro Auto [40.0-75.0 %] 69.3 % (06/24/24 9:40 PM) Lymph Auto [20.0-50.0 %] 23.3 % (06/24/24 9:40 PM) Sumner Auto [2.0-15.0 %] 5.5 % (06/24/24 9:40 PM) Basophil Auto [0.0-1.0 %] 0.3 % (06/24/24 9:40 PM) BUN [7-18 mg/dL] 22 mg/dL *HI* (06/24/24 9:40 PM) Glucose Level [74-106 mg/dL] 116 mg/dL *HI* (06/24/24 9:40 PM) Potassium Level [3.5-5.1 mmol/L] 2.9 mmo l/L *LOW* (06/24/24 9:40 PM) MCV [80.0-96.0 fL] 88.4 fL (06/24/24 9:40 PM) CO2 Total Venous 42 mmol/L *NA* (06/24/24 9:40 PM) HCO3 Venous [22-30 mmol/L] 40 mmol/L *HI* (06/24/24 9:40 PM) AST [15-37 unit/L] 19 unit/L (06/24/24 9:40 PM) ALT [14-59 unit/L] 20 unit/L (06/24/24 9:40 PM) MCHC [31.0-35.0 g/dL] 33.6 g/dL (06/24/24 9:40 PM) Troponin-I [0.0-51.4 pg/mL] <5.0 pg/mL (06/24/24 9:40 PM) Sodium Level [136-145 mmol/L] 137 mmol/L (06/24/24 9:40 PM) Hct [37.0-47.0 %] 39.0 % (06/24/24 9:40 PM) Calcium Level [8.5-10.1 mg/dL] 9.6 mg/dL (06/24/24 9:40 PM) Albumin Level [3.4-5.0 g/dL] 3.4 g/dL (06/24/24 9:40 PM) Protein Total [6.4-8.2 g/dL] 7.6 g/dL (06/24/24 9:40 PM) MCH [26.0-32.0 pg] 29.7 pg (06/24/24 9:40 PM) Neutro Absolute 9.5 x10^3/mcL *NA* (06/24/24 9:40 PM) Bilirubin Total [0.2-1.0 mg/dL] 0.2 mg/d L (06/24/24 9:40 PM) Hgb [12.0-16.0 g/dL] 13.1 g/dL (06/24/24 9:40 PM) Alk Phos [46-146 unit/L] 103 unit/L (06/24/24 9:40 PM) pCO2 Dick [33.0-47.0 mmHg] 56.1 mmHg *HI* (06/24/24 9:40 PM) Platelets [130-450 x10^3/mcL] 363 x10^3/ mcL (06/24/24 9:40 PM) CO2 [21-32 mmol/L] 37 mmol/L *HI* (06/24/24 9:40 PM) pO2 Dick 30.3 mmHg *NA* (06/24/24 9:40 PM) pH Dick [7.32-7.43 pH unit(s)] 7.46 pH un it(s) *HI* (06/24/24 9:40 PM) O2 Sat Dick 58 % *NA* (06/24/24 9:40 PM) eGFR Non-AA [>=60] 52 *LOW* (06/24/24 9:40 PM) eGFR AA [>=60] 52 *LOW* (06/24/24 9:40 PM) Base Excess Venous 13.6 mmol/L *NA* (06/24/24 9:40 PM) NT-proBNP [0-125 pg/mL] 69 pg/mL (06/24/24 9:40 PM) Chloride Level [98-107 mmol/L] 91 mmol/L *LOW* (06/24/24 9:40 PM) RDW-CV [11.5-14.5 %] 14.6 % *HI* (06/24/24 9:40 PM) Imm Gran Auto [0.0-0.9 %] 0.4 % (06/24/24 9:40 PM) Creatinine Level [0.55-1.02 mg/dL] 1.12 mg/dL *HI* (06/24/24 9:40 PM) Eos, Auto [1.0-6.0 %] 1.2 % (06/24/24 9:40 PM) Vital Signs Most recent to oldest [Reference Range]: 1 2 Temperature Temporal Artery [36-38 Deg C ] 36 Deg C (06/24/24 9:12 PM) Heart Rate Monitored [60-100 bpm] 100 bp m (06/24/24 9:58 PM) 99 bpm (06/24/24 9:12 PM) Respiratory Rate [12-24 br/min] 27 br/mi n *HI* (06/24/24 9:12 PM) Blood Pressure [90-120/60-80 mmHg] 115/7 1mmHg (06/24/24 9:12 PM) Mean Arterial Pressure, Cuff [65-140 mmH g] 86 mmHg (06/24/24 9:12 PM) Weight 71 kg (06/24/24 9:12 PM) Weight Dosing 71.000 kg (06/24/24 9:12 PM) Social History Social History Type Response Tobacco Current everyday tob acco user Tobacco Use:. 1.5 packs per day per day. Sex Female Sex Representation Female (finding) Hospital Discharge Instructions Patient Education 06/24/2024 21:48:01 Hypokalemia Hypokalemia Hypokalemia means that the amount of potassium in the blood is lower than normal. Potassium is a mineral (electrolyte) that helps regulate the amount of fluid in the body. It also stimulates muscle tightening (contraction) and helps nerves work properly. Normally, most of the body's potassium is inside cells, and only a very small amount is in the blood. Because the amount in the blood is so small, minor changes to potassium levels in the blood can be life-threatening. What are the causes? This condition may be caused by: ??? Antibiotic medicine. ??? Diarrhea or vomiting. Taking too much of a medicine that helps you have a bowel movement (laxative) can cause diarrhea and lead to hypokalemia. ??? Chronic kidney disease (CKD). ??? Medicines that help the body get rid of excess fluid (diuretics). ??? Eating disorders, such as anorexia or bulimia. ??? Low magnesium levels in the body. ??? Sweating a lot. What are the signs or symptoms? Symptoms of this condition include: ??? Weakness. ??? Constipation. ??? Fatigue. ??? Muscle cramps. ??? Mental confusion. ??? Skipped heartbeats or irregular heartbeat (palpitations). ??? Tingling or numbness. How is this diagnosed? This condition is diagnosed with a blood test. How is this treated? This condition may be treated by: ??? Taking potassium supplements. ??? Adjusting the medicines that you take. ??? Eating more foods that contain a lot of potassium. If your potassium level is very low, you may need to get potassium through an IV and be monitored in the hospital. Follow these instructions at home: Eating and drinking ??? Eat a healthy diet. A healthy diet includes fresh fruits and vegetables, whole grains, healthy fats, and lean proteins. ??? If told, eat more foods that contain a lot of potassium. These include: ??? Nuts, such as peanuts and pistachios. ??? Seeds, such as sunflower seeds and pumpkin seeds. ??? Peas, lentils, and amado beans. ??? Whole grain and bran cereals and breads. ??? Fresh fruits and vegetables, such as apricots, avocado, bananas, cantaloupe, kiwi, oranges, tomatoes, asparagus, and potatoes. ??? Juices, such as orange, tomato, and prune. ??? Lean meats, including fish. ??? Milk and milk products, such as yogurt. General instructions ??? Take hura-jbc-uscjlpj and prescription medicines only as told by your health care provider. This includes vitamins, natural food products, and supplements. ??? Keep all follow-up visits. This is important. Contact a health care provider if: ??? You have weakness that gets worse. ??? You feel your heart pounding or racing. ??? You vomit. ??? You have diarrhea. ??? You have diabetes and you have trouble keeping your blood sugar in your target range. Get help right away if: ??? You have chest pain. ??? You have shortness of breath. ??? You have vomiting or diarrhea that lasts for more than 2 days. ??? You faint. These symptoms may be an emergency. Get help right away. Call 911. ??? Do not wait to see if the symptoms will go away. ??? Do not drive yourself to the hospital. Summary ??? Hypokalemia means that the amount of potassium in the blood is lower than normal. ??? This condition is diagnosed with a blood test. ??? Hypokalemia may be treated by taking potassium supplements, adjusting the medicines that you take, or eating more foods that are high in potassium. ??? If your potassium level is very low, you may need to get potassium through an IV and be monitored in the hospital. This information is not intended to replace advice given to you by your health care provider. Make sure you discuss any questions you have with your health care provider. Document Revised: 02/06/2022 Document Reviewed: 02/06/2022 [employer] Patient Education ?? 2022 [employer]. 06/24/2024 21:47:58 Chronic Obstructive Pulmonary Disease, Crfe-uy-Fovy Chronic Obstructive Pulmonary Disease Chronic obstructive pulmonary disease (COPD) is a long-term (chronic) lung problem. When you have COPD, it is hard for air to get in and out of your lungs. Usually the condition gets worse over time, and your lungs will never return to normal. There are things you can do to keep yourself as healthy as possible. What are the causes? Smoking. This is the most common cause. ??? Certain genes passed from parent to child (inherited). What increases the risk? Being exposed to secondhand smoke from cigarettes, pipes, or cigars. ??? Being exposed to chemicals and other irritants, such as fumes and dust in the work environment. ??? Having chronic lung conditions or infections. What are the signs or symptoms? Shortness of breath, especially during physical activity. ??? A long-term cough with a large amount of thick mucus. Sometimes, the cough may not have any mucus (dry cough). ??? Wheezing. ??? Breathing quickly. ??? Skin that looks vargas or blue, especially in the fingers, toes, or lips. ??? Feeling tired (fatigue). ??? Weight loss. ??? Chest tightness. ??? Having infections often. ??? Episodes when breathing symptoms become much worse (exacerbations). At the later stages of this disease, you may have swelling in the ankles, feet, or legs. How is this treated? Taking medicines. ??? Quitting smoking, if you smoke. ??? Rehabilitation. This includes steps to make your body work better. It may involve a team of specialists. ??? Doing exercises. ??? Making changes to your diet. ??? Using oxygen. ??? Lung surgery. ??? Lung transplant. ??? Comfort measures (palliative care). Follow these instructions at home: Medicines ??? Take dkez-kgw-qqfyull and prescription medicines only as told by your doctor. ??? Talk to your doctor before taking any cough or allergy medicines. You may need to avoid medicines that cause your lungs to be dry. Lifestyle ??? If you smoke, stop smoking. Smoking makes the problem worse. ??? Do not smoke or use any products that contain nicotine or tobacco. If you need help quitting, ask your doctor. ??? Avoid being around things that make your breathing worse. This may include smoke, chemicals, and fumes. ??? Stay active, but remember to rest as well. ??? Learn and use tips on how to manage stress and control your breathing. ??? Make sure you get enough sleep. Most adults need at least 7 hours of sleep every night. ??? Eat healthy foods. Eat smaller meals more often. Rest before meals. Controlled breathing Learn and use tips on how to control your breathing as told by your doctor. Try: ??? Breathing in (inhaling) through your nose for 1 second. Then, pucker your lips and breath out (exhale) through your lips for 2 seconds. ??? Putting one hand on your belly (abdomen). Breathe in slowly through your nose for 1 second. Your hand on your belly should move out. Pucker your lips and breathe out slowly through your lips. Your hand on your belly should move in as you breathe out. Controlled coughing Learn and use controlled coughing to clear mucus from your lungs. Follow these steps: 1. Lean your head a little forward. 2. Breathe in deeply. 3. Try to hold your breath for 3 seconds. 4. Keep your mouth slightly open while coughing 2 times. 5. Spit any mucus out into a tissue. 6. Rest and do the steps again 1 or 2 times as needed. General instructions ??? Make sure you get all the shots (vaccines) that your doctor recommends. Ask your doctor about aflu shot and a pneumonia shot. ??? Use oxygen therapy and pulmonary rehabilitation if told by your doctor. If you need home oxygentherapy, ask your doctor if you should buy a tool to measure your oxygen level (oximeter). ??? Make a COPD action plan with your doctor. This helps you to know what to do if you feel worse than usual. ??? Manage any other conditions you have as told by your doctor. ??? Avoid going outside when it is very hot, cold, or humid. ??? Avoid people who have a sickness you can catch (contagious). ??? Keep all follow-up visits. Contact a doctor if: ??? You cough up more mucus than usual. ??? There is a change in the color or thickness of the mucus. ??? It is harder to breathe than usual. ??? Your breathing is faster than usual. ??? You have trouble sleeping. ??? You need to use your medicines more often than usual. ??? You have trouble doing your normal activities such as getting dressed or walking around the house. Get help right away if: ??? You have shortness of breath while resting. ??? You have shortness of breath that stops you from: ??? Being able to talk. ??? Doing normal activities. ??? Your chest hurts for longer than 5 minutes. ??? Your skin color is more blue than usual. ??? Your pulse oximeter shows that you have low oxygen for longer than 5 minutes. ??? You have a fever. ??? You feel too tired to breathe normally. These symptoms may represent a serious problem that is an emergency. Do not wait to see if the symptoms will go away. Get medical help right away. Call your local emergency services (911 in the [place] Do not drive yourself to the hospital. Summary ??? Chronic obstructive pulmonary disease (COPD) is a long-term lung problem. ??? The way your lungs work will never return to normal. Usually the condition gets worse over time. There are things you can do to keep yourself as healthy as possible. ??? Take ttyr-opg-bfagorx and prescription medicines only as told by your doctor. ??? If you smoke, stop. Smoking makes the problem worse. This information is not intended to replace advice given to you by your health care provider. Make sure you discuss any questions you have with your health care provider. Document Revised: 04/02/2021 Document Reviewed: 04/02/2021 [employer] Patient Education ?? 2022 [employer] Follow Up Care 06/24/2024 21:09:05 With:Dilan Hernandez MD Address: [address] [place] [address]- When:1 to 2 weeks Physician Emergency department Note * Gold White MD: PERFORM Event Display: ED Note Physician Authored Date: [id number] AUBREE COUCH :1950 Age:74 years Sex:Female Visit Date:06/24/2024 Primary Care Physician: Dilan Hernandez MD Basic Information Time Seen: Gold White MD / 06/24/2024 21:10 Chief Complaint pt to ED with c/o low O2 st on room air in triage pt 84% denies any fever states she is very fatigued ??pt has hx COPD History Of Present Illness: 74-year-old female with a history of COPD who has home oxygen who still smokes 1-1/2 pack a day??presents because her pulse oximeter today would read in the mid 80s.?? She is has not had any shortness of breath per se but she states that when her oxygen is low she gets headaches at times which she did have. ??She has felt fatigued also.?? She has used her nebulizer this morning. ??She usually wears her oxygen at night and in the day on a as needed basis. ??No chest pain or fever or chills or productive cough or URI symptoms. ??No abdominal pain vomiting or diarrhea and no??new leg swelling. Review of Systems: Per HPI Physical Exam Vitals & Measurements T:??36?C ??(Temporal Artery)?? HR:??100??(Monitored)?? RR:??27?? BP:??115/71?? SpO2:??94%?? WT:??71??kg?? O2 Flow Rate:??3?? O2 Therapy:??Nasal cannula?? General:??alert,??no acute distress.Here on her usual supplemental oxygen she was satting in the mid 90s.?? Normal mentation no respiratory distress does not look septic. Skin:??warm,??dry. Head:??no??trauma,??normocephalic. Neck:??trachea??midline,??no??adenopathy,??no??tenderness. Eye:??normal??conjunctiva, sclera??clear. Cardiovascular:??regular??rate and rhythm,??normal??peripheral perfusion. Respiratory: lungs??CTA, respirations??non-labored.?? Perhaps slightly decreased breath sounds but did not hear any wheeze rales crackles or rhonchi's. Chest wall:??no??deformity. Gastrointestinal:??soft,??non distended,??no??tenderness,??no??guarding. Extremities:??no??deformity,??no??trauma.?? No signs of DVT Neurological:?LOC??appropriate for age,?, speech??normal. Psychiatric:??cooperative,?? Medical Decision Making: Medical Decision-Making: Clinical lab tests: ordered and reviewed -??Yes Tests in the radiology section of CPT??: ordered and reviewed -??Yes ? Review and summarize past medical records -??Yes ?? Independent visualization of images, tracings, or specimens? Yes ?? Differential diagnosis includes viral URI, COPD exacerbation,??do not think it is acute coronary syndrome no signs of CHF.?? No signs of bacterial??pneumonia.?? Her potassium is on the low side at 2.9 which she states she has a supplement at home that she has not been taking. ?? Here the patient is stable. ??She continues to smoke.?? I related the low potassium and she states that she has a supplement at home that she has not been taking but she will take it.?? Suspect her symptoms are due to COPD so we will put her on a short burst of prednisone. ??She has a nebulizer at home.?? She has oxygen at home.?? Smoking cessation would be helpful. ??Discharged in stable ?? Last 24 Hours?? Chemistry ? Event Name?? Event Result?? Date/Time?? Sodium Level 137 mmol/L 06/24/24 21:40:00 Potassium Level 2.9 mmol/L??Low 06/24/24 21:40:00 Chloride Level 91 mmol/L??Low 06/24/24 21:40:00 CO2 37 mmol/L??High 06/24/24 21:40:00 Alk Phos 103 unit/L 06/24/24 21:40:00 AST 19 unit/L 06/24/24 21:40:00 ALT 20 unit/L 06/24/24 21:40:00 BUN 22 mg/dL??High 06/24/24 21:40:00 Glucose Level 116 mg/dL??High 06/24/24 21:40:00 Creatinine Level 1.12 mg/dL??High 06/24/24 21:40:00 eGFR AA 52??Low 06/24/24 21:40:00 eGFR Non-AA 52??Low 06/24/24 21:40:00 Calcium Level 9.6 mg/dL 06/24/24 21:40:00 Protein Total 7.6 g/dL 06/24/24 21:40:00 Albumin Level 3.4 g/dL 06/24/24 21:40:00 Bilirubin Total 0.2 mg/dL 06/24/24 21:40:00 Troponin-I <5.0 06/24/24 21:40:00 NT-proBNP 69 pg/mL 06/24/24 21:40:00 ? Hematology ? Event Name?? Event Result?? Date/Time?? WBC 13.7 x10^3/mcL??High 06/24/24 21:40:00 RBC 4.4 x10^6/mcL 06/24/24 21:40:00 Hgb 13.1 g/dL 06/24/24 21:40:00 Hct 39 % 06/24/24 21:40:00 MCV 88.4 fL 06/24/24 21:40:00 MCH 29.7 pg 06/24/24 21:40:00 MCHC 33.6 g/dL 06/24/24 21:40:00 RDW-CV 14.6 %??High 06/24/24 21:40:00 Platelets 363 x10^3/mcL 06/24/24 21:40:00 Neutro Auto 69.3 % 06/24/24 21:40:00 Lymph Auto 23.3 % 06/24/24 21:40:00 Sumner Auto 5.5 % 06/24/24 21:40:00 Eos, Auto 1.2 % 06/24/24 21:40:00 Basophil Auto 0.3 % 06/24/24 21:40:00 Imm Gran Auto 0.4 % 06/24/24 21:40:00 Neutro Absolute 9.5 x10^3/mcL 06/24/24 21:40:00 ? Blood Gases ? Event Name?? Event Result?? Date/Time?? pH Dick 7.46 pH unit(s)??High 06/24/24 21:40:00 pCO2 Dick 56.1 mmHg??High 06/24/24 21:40:00 pO2 Dick 30.3 mmHg 06/24/24 21:40:00 HCO3 Venous 40 mmol/L??High 06/24/24 21:40:00 O2 Sat Dick 58 % 06/24/24 21:40:00 CO2 Total Venous 42 mmol/L 06/24/24 21:40:00 Base Excess Venous 13.6 mmol/L 06/24/24 21:40:00 ? URL This document has an image ?? XR Chest 1 View PROCEDURE INFORMATION:?? Exam: XR Chest?? Exam date and time: 06/24/2024 9:44 PM?? Age: 74 years old?? Clinical indication: Dyspnea? TECHNIQUE:?? Imaging protocol: Radiologic exam of the chest.?? Views: 1 view.? COMPARISON:?? CR XR CHEST 1 VW 05/24/2024 9:39 PM? FINDINGS:?? Lungs: Lungs are hyperaerated. No consolidation. No vascular?? congestion.?? Pleural spaces: Unremarkable. No pleural effusion. No pneumothorax.?? Heart/Mediastinum: Unremarkable. No cardiomegaly.?? Bones/joints: Moderate scoliosis.?? Soft tissues: Bands of atelectasis or scar tissue are noted in the?? lung bases.? IMPRESSION:?? Chronic lung disease. No acute cardiopulmonary abnormality.? Report signed by: Aravind Holley On 06/24/2024 ??23:31:09 [1] Procedure No Qualifying Data Assessment/Plan 1.??Low O2 saturation??R79.81 Ordered: predniSONE 20 mg oral tablet, 40 mg = 2 tab, Oral, Daily, X 5 days, # 10 tab, 0 Refill(s), 06/29/2521:48:00 EST, Pharmacy: [id number], 155, cm, 05/24/24 22:30:00 EST, Height, 71, kg, 06/24/24 21:15:00 EST, Weight Dosing Discharge Patient, 06/24/24 22:48:00 EST, Home Independently, Constant Indicator ?? 2.??COPD exacerbation??J44.1 Ordered: predniSONE 20 mg oral tablet, 40 mg = 2 tab, Oral, Daily, X 5 days, # 10 tab, 0 Refill(s), 06/29/2521:48:00 EST, Pharmacy: [facility], 155, cm, 05/24/24 22:30:00 EST, Height, 71, kg, 06/24/24 21:15:00 EST, Weight Dosing Discharge Patient, 06/24/24 22:48:00 EST, Home Independently, Constant Indicator ?? 3.??Hypokalemia??E87.6 Ordered: predniSONE 20 mg oral tablet, 40 mg = 2 tab, Oral, Daily, X 5 days, # 10 tab, 0 Refill(s), 06/29/2521:48:00 EST, Pharmacy: [facility], 155, cm, 05/24/24 22:30:00 EST, Height, 71, kg, 06/24/24 21:15:00 EST, Weight Dosing Discharge Patient, 06/24/24 22:48:00 EST, Home Independently, Constant Indicator ?? Patient Education Hypokalemia Chronic Obstructive Pulmonary Disease, Bhvi-cm-Ketu Follow Up With When Contact Information Dilan Hernandez MD Within 1 to [address] [place] [address]- Additional Instructions: Medication Reconciliation New Prescription predniSONE (predniSONE 20 mg oral tablet)2 tab Oral (given by mouth) every day for 5 Days. Refills:0. ?? Unchanged albuterol (Albuterol (Eqv-ProAir HFA) 90 mcg/inh inhalation aerosol)2 Puffs Inhale (breathe in) every 4 hours. Refills: 6. ?? ascorbic acid (Vitamin C 500 mg oral tablet)1 tab Oral (given by mouth) every day. Refills: 0. ?? budesonide/glycopyrrolate/formoterol (Breztri Aerosphere 160 mcg-9 mcg-4.8 mcg/inh inhalation aerosol)2 Puffs Inhale (breathe in) 2 times a day. rinse mouth and throat after use. Refills: 6. ?? cholecalciferol (Vitamin D3 50 mcg (2000 intl units) oral tablet, chewable)1 tab Oral (given by mouth) every day. ?? Durable Medical Equipment for Prescription (COPD J44.1)Please include tubing and mouthpiece. Refills: 0. ?? Durable Medical Equipment for Prescription (Oxygen Therapy)See instructions. ?? escitalopram (escitalopram 10 mg oral tablet)1 tab Oral (given by mouth) every day. TAKE 1 TABLET BY MOUTH ONCE DAILY. Refills: 3. ?? ferrous sulfate (ferrous sulfate 325 mg (65 mg elemental iron) oral delayed release tablet)1 tab Oral (given by mouth) every day. Refills: 0. ?? ibuprofen (ibuprofen 200 mg oral tablet)2 tab Oral (given by mouth) every 4 hours as needed as needed for pain. ?? ipratropium-albuterol (ipratropium-albuterol 0.5 mg-2.5 mg/3 mL inhalation solution)USE 1 AMPULE INNEBULIZER EVERY 4 HOURS NEEDED FOR SHORTNESS OF BREATH FOR WHEEZING. Refills: 4. ?? levoFLOXacin (levoFLOXacin 750 mg oral tablet)1 tab Oral (given by mouth) every 24 hours for 5 Days. Refills: 0. ?? nicotine (nicotine 21 mg/24 hr transdermal film, extended release)1 patch(es) Transdermal (apply onthe skin) every day. apply to skin. Refills: 1. ?? nicotine (nicotine 4 mg oral transmucosal gum)1 Each Chewed every 2 hours as needed as needed for smoking cessation. Refills: 1. ?? omeprazole (omeprazole 40 mg oral delayed release capsule)1 Capsules Oral (given by mouth) every day. Refills: 3. ?? ondansetron (ondansetron 8 mg oral tablet)1 tab Oral every 6 hours as needed for nausea; as needed nausea. Refills: 1. ?? pamabrom (Diurex Water Capsules)50 Milligrams Oral (given by mouth) every day. ?? potassium bicarbonate (potassium bicarbonate 20 mEq oral tablet, effervescent)1 tab Oral (given by mouth) 2 times a day. dissolve in water or juice. Refills: 1. ?? pramipexole (pramipexole 1 mg oral tablet)Take 1 tablets by mouth QAM and two tablets QPM. Refills:6. ?? semaglutide (Ozempic (1 mg dose) 4 mg/3 mL subcutaneous solution)1 Milligrams Subcutaneous (under the skin) every week. Refills: 3. ?? spironolactone (spironolactone 25 mg oral tablet)12.5 Milligrams Oral (given by mouth) every day. ?? torsemide (torsemide 20 mg oral tablet)2 tab Oral (given by mouth) every day. Refills: 1. Problem List/Past Medical History Ongoing Anxiety disorder Choreiform movements Chronic obstructive lung disease Chronic pain disorder Chronic UTI Claustrophobia Daytime somnolence Degeneration of lumbar intervertebral disc Diabetes Diarrhea Excessive daytime sleepiness Gastroesophageal reflux disease History of pyloric channel ulcer Hypokalemia Hyponatremia Hypoxemia associated with sleep Insomnia Low back pain Lumbar spondylosis Lumbosacral radiculopathy Mixed urinary incontinence Nicotine dependence Overweight Peptic ulcer Prediabetes Pyloric stenosis Restless legs Right hip pain SOB (shortness of breath) on exertion Tobacco user Unilateral hydronephrosis Historical Procedure/Surgical History ???Colonoscopy, flexible, proximal to splenic flexure; with removal of tumor(s), polyp(s), or otherlesion(s) by snare technique (02/16/2024)???Pulmonary function test (02/18/2023)???Computed tomography (CT) of neck, thorax, abdomen and pelvis with contrast (09/09/2022)???Lumbar puncture (09/08/2022)? ?Transthoracic echocardiography (09/08/2022)? ?Vaginal total hysterectomy, A&P repair, uterosacral vag-vault suspension, prolapse (04/21/2021)???Laparoscopic bypass gastrojejunostomy (02/29/2020)???EGD - Esophagogastroduodenoscopy (08/09/2019)???Colonoscopy (04/13/2019)???Pyloroplasty (03/22/2010)???Right-Oophorectomy (06/08/1979)???Ectopic w/ left salpingectomy???Tubal ligation Medication Administration Given predniSONE, 40 mg, Oral Allergies Bactrim DS??(Joint pain) pregabalin No Known Medication Allergies Social History Alcohol Current, Beer- Comments: 1 Kahlua and milk/day Electronic Cigarette/Vaping Electronic Cigarette Use: Former use, quit more than 90 days ago. 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 Home/Environment Lives with Spouse. Nutrition/Health Caffeine intake amount: rarely. Sexual Sexual orientation: Straight or heterosexual. Other contraceptive use: [id number]. What is your current gender identity? (Check all that apply) Identifies as female. Substance Use Never Tobacco Current everyday tobacco user Tobacco Use:. 1.5 packs per day per day. Family History CA - Cancer of colon: Mother. CA - Cancer of kidney: Sister. Diabetes mellitus: Sister. Heart disease: Mother. Lung cancer: Father. Family Member(s): ?? FATHER, at age: Unknown. Cause of : Family Member(s): ?? MOTHER, at age: Unknown. Cause of : Diagnostic Results Diagnostic Study Interpretation: Chest x-ray shows no acute findings.?? Per radiologist??there is signs of chronic lung disease. Lab Results CBC and Differential?? LATEST RESULTS?? HISTORICAL RESULTS?? WBC?? 06/24/24 21:40?? 13.7 ??High?? 05/25/24?? 20.1 ??High?? RBC?? 06/24/24 21:40?? 4.4?? 05/25/24?? 4.2?? Hgb?? 06/24/24 21:40?? 13.1?? 05/25/24?? 12.2?? Hct?? 06/24/24 21:40?? 39.0?? 05/25/24?? 36.6 ??Low?? MCV?? 06/24/24 21:40?? 88.4?? 05/25/24?? 87.8?? MCH?? 06/24/24 21:40?? 29.7?? 05/25/24?? 29.3?? MCHC?? 06/24/24 21:40?? 33.6?? 05/25/24?? 33.3?? RDW-CV?? 06/24/24 21:40?? 14.6 ??High?? 05/25/24?? 14.4?? Platelets?? 06/24/24 21:40?? 363?? 05/25/24?? 345?? Neutro Auto?? 06/24/24 21:40?? 69.3?? 04/25/24?? 70.1?? Lymph Auto?? 06/24/24 21:40?? 23.3?? 04/25/24?? 22.6?? Sumner Auto?? 06/24/24 21:40?? 5.5?? 04/25/24?? 5.3?? Eos, Auto?? 06/24/24 21:40?? 1.2?? 04/25/24?? 1.2?? Basophil Auto?? 06/24/24 21:40?? 0.3?? 04/25/24?? 0.3?? Imm Gran Auto?? 06/24/24 21:40?? 0.4?? 04/25/24?? 0.5?? Neutro Absolute?? 06/24/24 21:40?? 9.5?? 04/25/24?? 10.2? Blood Gases?? LATEST RESULTS?? HISTORICAL RESULTS?? pH Dick?? 06/24/24 21:40?? 7.46 ??High?? 08/21/23?? 7.38?? pCO2 Dick?? 06/24/24 21:40?? 56.1 ??High?? 08/21/23?? 47?? pO2 Dick?? 06/24/24 21:40?? 30.3? HCO3 Venous?? 06/24/24 21:40?? 40 ??High?? 08/21/23?? 28?? O2 Sat Dick?? 06/24/24 21:40?? 58? CO2 Total Venous?? 06/24/24 21:40?? 42?? 08/21/23?? 38?? Base Excess Venous?? 06/24/24 21:40?? 13.6?? 08/21/23?? 1.9? Routine Chemistry?? LATEST RESULTS?? HISTORICAL RESULTS?? Sodium Level?? 06/24/24 21:40?? 137?? 05/25/24?? 133 ??Low?? Potassium Level?? 06/24/24 21:40?? 2.9 ??Low?? 05/25/24?? 3.4 ??Low?? Chloride Level?? 06/24/24 21:40?? 91 ??Low?? 05/25/24?? 96 ??Low?? CO2?? 06/24/24 21:40?? 37 ??High?? 05/25/24?? 31?? Alk Phos?? 06/24/24 21:40?? 103?? 05/24/24?? 114?? AST?? 06/24/24 21:40?? 19?? 05/24/24?? 18?? ALT?? 06/24/24 21:40?? 20?? 05/24/24?? 23?? BUN?? 06/24/24 21:40?? 22 ??High?? 05/25/24?? 16?? Glucose Level?? 06/24/24 21:40?? 116 ??High?? 05/25/24?? 112 ??High?? Creatinine Level?? 06/24/24 21:40?? 1.12 ??High?? 05/25/24?? 0.95?? eGFR AA?? 06/24/24 21:40?? 52 ??Low?? 05/25/24?? 64?? eGFR Non-AA?? 06/24/24 21:40?? 52 ??Low?? 05/25/24?? 64?? Calcium Level?? 06/24/24 21:40?? 9.6?? 05/25/24?? 8.7?? Protein Total?? 06/24/24 21:40?? 7.6?? 05/24/24?? 7.7?? Albumin Level?? 06/24/24 21:40?? 3.4?? 05/24/24?? 3.3 ??Low?? Bilirubin Total?? 06/24/24 21:40?? 0.2?? 05/24/24?? 0.4? Cardiac Isoenzymes?? LATEST RESULTS?? HISTORICAL RESULTS?? Troponin-I?? 06/24/24 21:40?? <5.0?? 01/03/24?? 8.2?? NT-proBNP?? 06/24/24 21:40?? 69?? 01/03/24?? 52? [1]??XR Chest 1 View; DomainUser, Generated 06/24/2024 21:44 EST Electronically Signed on 06/25/2024 01:04 EST Gold White MD Emergency department Discharge instructions * Gold White MD: PERFORM Event Display: ED Discharge Information Authored Date: [id number] AUBREE COUCH :1950 Age:74 years Sex:Female Visit Date:06/24/2024 Primary Care Physician: Dilan Hernandez MD Discharge Instructions We would like to thank you for allowing us to assist you with your healthcare needs. The following includes patient education materials and information regarding your injury/illness. Diagnosis from Today's Visit Low O2 saturation COPD exacerbation Hypokalemia Discharge Vitals Temperature??(Temporal Artery) 96.8 ??F (36 ??C) Heart Rate??(Monitored) 100 Respiratory Rate?? 27 Blood Pressure?? 115/71?? SpO2?? 94% Weight?? 156.56 lb (71 kg) Allergies Bactrim DS??(Joint pain) pregabalin No Known Medication Allergies What to Do Next Instructions from Your Care Team A prescription for prednisone was sent to your pharmacy. ??Make sure to take your potassium supplement as directed. ??Follow-up with your doctor in the next couple week for recheck on potassium You Need to Schedule the Following Appointments Follow Up with??Dilan Hernandez MD When:??Within 1 to 2 weeks Where: [address] [place] [address]- Upcoming Scheduled Appointments 2024 10:00 AM EST ?? With: Dilan Hernandez MD Where: [address] [address] Status: Confirmed Thursday 8:30 AM EDT ?? With: Jaimee Cerda NP Where: [facility] [address] [place] [address] Status: Confirmed 2024 1:00 PM EDT ?? With: Dilan Hernandez MD Where: [address] [address] Status: Confirmed You were treated today on an emergency [...] Much When Why Instructions Next Dose New predniSONE (predniSONE 20 mg oral tablet) 2 tab Oral (given by mouth) Every day Low O2 saturation COPD exacerbation Hypokalemia Duration: 5 Days Pickup at [id number] Unchanged albuterol (Albuterol (Eqv-ProAir HFA) 90 mcg/ inh inhalation aerosol) 2 Puffs Inhale (breathe in) Every 4 hours COPD mixed type Unchanged ascorbic acid (Vitamin C 500 mg oral tablet) 1 tab Oral (given by mouth) Every day Unchanged budesonide/ glycopyrrolate/ formoterol (Breztri Aerosphere 160 mcg-9 mcg-4.8 mcg/ inh inhalation aerosol) 2 Puffs Inhale (breathe in) 2 times a day rinse mouth and throat after use ?? Unchanged cholecalciferol (Vitamin D3 50 mcg (2000 intl units) oral tablet, chewable) 1 tab Oral (given by mouth) Every day Unchanged Durable Medical Equipment for Prescription (COPD J44.1) See instructions COPD exacerbation Please include tubing and mouthpiece ?? Unchanged Durable Medical Equipment for Prescription (Oxygen Therapy) See instructions Unchanged escitalopram (escitalopram 10 mg oral tablet) 1 tab Oral (given by mouth) Every day TAKE 1 TABLET BY MOUTH ONCE DAILY ?? Unchanged ferrous sulfate (ferrous sulfate 325 mg (65 mg elemental iron) oral delayed release tablet) 1 tab Oral (given by mouth) Every day Unchanged ibuprofen (ibuprofen 200 mg oral tablet) 2 tab Oral (given by mouth) Every 4 hours as needed for as needed for pain Unchanged ipratropium-albuterol (ipratropium-albuterol 0.5 mg-2.5 mg/ 3 mL inhalation solution) Seeinstructions USE 1 AMPULE IN NEBULIZER EVERY 4 HOURS NEEDED FOR SHORTNESS OF BREATH FOR WHEEZING ?? Unchanged levoFLOXacin (levoFLOXacin 750 mg oral tablet) 1 tab Oral (given by mouth) Every 24 hours Duration: 5 Days Unchanged nicotine (nicotine 21 mg/ 24 hr transdermal film, extended release) 1 patch(es) Transdermal (apply on the skin) Every day Nausea apply to skin ?? Unchanged nicotine (nicotine 4 mg oral transmucosal gum) 1 Each Chewed Every 2 hours as needed for as needed for smoking cessation Nausea Unchanged omeprazole (omeprazole 40 mg oral delayed release capsule) 1 Capsules Oral (given by mouth) Every day Unchanged ondansetron (ondansetron 8 mg oral tablet) See instructions Nausea 1 tab Oral every 6 hours as needed for nausea, As needed for nausea ?? Unchanged pamabrom (Diurex Water Capsules) 50 Milligrams Oral (given by mouth) Every day Unchanged potassium bicarbonate (potassium bicarbonate 20 mEq oral tablet, effervescent) 1 tab Oral (given by mouth) 2 times a day dissolve in water or juice ?? Unchanged pramipexole (pramipexole 1 mg oral tablet) See instructions Take 1 tablets by mouth QAM and two tablets QPM ?? Unchanged semaglutide (Ozempic (1 mg dose) 4 mg/ 3 mL subcutaneous solution) 1 Milligrams Subcutaneous (under the skin) Every week Diabetes Unchanged spironolactone (spironolactone 25 mg oral tablet) 12.5 Milligrams Oral (given by mouth) Every day Unchanged torsemide (torsemide 20 mg oral tablet) 2 tab Oral (given by mouth) Every day Pharmacy Information [id number]: [address] [place] [address] [phone] Education Materials Hypokalemia Hypokalemia means that the amount of potassium in the blood is lower than normal. Potassium is a mineral (electrolyte) that helps regulate the amount of fluid in the body. It also stimulates muscle tightening (contraction) and helps nerves work properly. Normally, most of the body's potassium is inside cells, and only a very small amount is in the blood. Because the amount in the blood is so small, minor changes to potassium levels in the blood can be life-threatening. What are the causes? This condition may be caused by: ? Antibiotic medicine. ? Diarrhea or vomiting. Taking too much of a medicine that helps you have a bowel movement (laxative)can cause diarrhea and lead to hypokalemia. ? Chronic kidney disease (CKD). ? Medicines that help the body get rid of excess fluid (diuretics). ? Eating disorders, such as anorexia or bulimia. ? Low magnesium levels in the body. ? Sweating a lot. What are the signs or symptoms? Symptoms of this condition include: ? Weakness. ? Constipation. ? Fatigue. ? Muscle cramps. ? Mental confusion. ? Skipped heartbeats or irregular heartbeat (palpitations). ? Tingling or numbness. How is this diagnosed? This condition is diagnosed with a blood test. How is this treated? This condition may be treated by: ? Taking potassium supplements. ? Adjusting the medicines that you take. ? Eating more foods that contain a lot of potassium. If your potassium level is very low, you may need to get potassium through an IV and be monitored in the hospital. Follow these instructions at home: Eating and drinking ? Eat a healthy diet. A healthy diet includes fresh fruits and vegetables, whole grains, healthy fats, and lean proteins. ? If told, eat more foods that contain a lot of potassium. These include: ? Nuts, such as peanuts and pistachios. ? Seeds, such as sunflower seeds and pumpkin seeds. ? Peas, lentils, and amado beans. ? Whole grain and bran cereals and breads. ? Fresh fruits and vegetables, such as apricots, avocado, bananas, cantaloupe, kiwi, oranges, tomatoes, asparagus, and potatoes. ? Juices, such as orange, tomato, and prune. ? Lean meats, including fish. ? Milk and milk products, such as yogurt. General instructions ? Take bcve-xlj-fluxqff and prescription medicines only as told by your health care provider. This includes vitamins, natural food products, and supplements. ? Keep all follow-up visits. This is important. Contact a health care provider if: ? You have weakness that gets worse. ? You feel your heart pounding or racing. ? You vomit. ? You have diarrhea. ? You have diabetes and you have trouble keeping your blood sugar in your target range. Get help right away if: ? You have chest pain. ? You have shortness of breath. ? You have vomiting or diarrhea that lasts for more than 2 days. ? You faint. These symptoms may be an emergency. Get help right away. Call 911. ? Do not wait to see if the symptoms will go away. ? Do not drive yourself to the hospital. Summary ? Hypokalemia means that the amount of potassium in the blood is lower than normal. ? This condition is diagnosed with a blood test. ? Hypokalemia may be treated by taking potassium supplements, adjusting the medicines that you take, or eating more foods that are high in potassium. ? If your potassium level is very low, you may need to get potassium through an IV and be monitored in the hospital. This information is not intended to replace advice given to you by your health care provider. Make sure you discuss any questions you have with your health care provider. Document Revised: 02/06/2022 Document Reviewed: 02/06/2022 [employer] Patient Education ?? 2022 [employer] Chronic Obstructive Pulmonary Disease Chronic obstructive pulmonary disease (COPD) is a long-term (chronic) lung problem. When you have COPD, it is hard for air to get in and out of your lungs. Usually the condition gets worse over time, and your lungs will never return to normal. There are things you can do to keep yourself as healthy as possible. What are the causes? Smoking. This is the most common cause. ? Certain genes passed from parent to child (inherited). What increases the risk? Being exposed to secondhand smoke from cigarettes, pipes, or cigars. ? Being exposed to chemicals and other irritants, such as fumes and dust in the work environment. ? Having chronic lung conditions or infections. What are the signs or symptoms? Shortness of breath, especially during physical activity. ? A long-term cough with a large amount of thick mucus. Sometimes, the cough may not have any mucus (dry cough). ? Wheezing. ? Breathing quickly. ? Skin that looks vargas or blue, especially in the fingers, toes, or lips. ? Feeling tired (fatigue). ? Weight loss. ? Chest tightness. ? Having infections often. ? Episodes when breathing symptoms become much worse (exacerbations). At the later stages of this disease, you may have swelling in the ankles, feet, or legs. How is this treated? Taking medicines. ? Quitting smoking, if you smoke. ? Rehabilitation. This includes steps to make your body work better. It may involve a team of specialists. ? Doing exercises. ? Making changes to your diet. ? Using oxygen. ? Lung surgery. ? Lung transplant. ? Comfort measures (palliative care). Follow these instructions at home: Medicines ? Take bsbq-bat-udqtbyy and prescription medicines only as told by your doctor. ? Talk to your doctor before taking any cough or allergy medicines. You may need to avoid medicines that cause your lungs to be dry. Lifestyle ? If you smoke, stop smoking. Smoking makes the problem worse. ? Do not smoke or use any products that contain nicotine or tobacco. If you need help quitting, ask your doctor. ? Avoid being around things that make your breathing worse. This may include smoke, chemicals, and fumes. ? Stay active, but remember to rest as well. ? Learn and use tips on how to manage stress and control your breathing. ? Make sure you get enough sleep. Most adults need at least 7 hours of sleep every night. ? Eat healthy foods. Eat smaller meals more often. Rest before meals. Controlled breathing Learn and use tips on how to control your breathing as told by your doctor. Try: ? Breathing in (inhaling) through your nose for 1 second. Then, pucker your lips and breath out (exhale) through your lips for 2 seconds. ? Putting one hand on your belly (abdomen). Breathe in slowly through your nose for 1 second. Your hand on your belly should move out. Pucker your lips and breathe out slowly through your lips. Your hand on your belly should move in as you breathe out. Controlled coughing Learn and use controlled coughing to clear mucus from your lungs. Follow these steps: 1.?? Lean your head a little forward. 2.?? Breathe in deeply. 3.?? Try to hold your breath for 3 seconds. 4.?? Keep your mouth slightly open while coughing 2 times. 5.?? Spit any mucus out into a tissue. 6.?? Rest and do the steps again 1 or 2 times as needed. General instructions ? Make sure you get all the shots (vaccines) that your doctor recommends. Ask your doctor about a flushot and a pneumonia shot. ? Use oxygen therapy and pulmonary rehabilitation if told by your doctor. If you need home oxygen therapy, ask your doctor if you should buy a tool to measure your oxygen level (oximeter). ? Make a COPD action plan with your doctor. This helps you to know what to do if you feel worse than usual. ? Manage any other conditions you have as told by your doctor. ? Avoid going outside when it is very hot, cold, or humid. ? Avoid people who have a sickness you can catch (contagious). ? Keep all follow-up visits. Contact a doctor if: ? You cough up more mucus than usual. ? There is a change in the color or thickness of the mucus. ? It is harder to breathe than usual. ? Your breathing is faster than usual. ? You have trouble sleeping. ? You need to use your medicines more often than usual. ? You have trouble doing your normal activities such as getting dressed or walking around the house. Get help right away if: ? You have shortness of breath while resting. ? You have shortness of breath that stops you from: ? Being able to talk. ? Doing normal activities. ? Your chest hurts for longer than 5 minutes. ? Your skin color is more blue than usual. ? Your pulse oximeter shows that you have low oxygen for longer than 5 minutes. ? You have a fever. ? You feel too tired to breathe normally. These symptoms may represent a serious problem that is an emergency. Do not wait to see if the symptoms will go away. Get medical help right away. Call your local emergency services (911 in the [place] Do not drive yourself to the hospital. Summary ? Chronic obstructive pulmonary disease (COPD) is a long-term lung problem. ? The way your lungs work will never return to normal. Usually the condition gets worse over time. There are things you can do to keep yourself as healthy as possible. ? Take jxuy-sil-pzgagmr and prescription medicines only as told by your doctor. ? If you smoke, stop. Smoking makes the problem worse. This information is not intended to replace advice given to you by your health care provider. Make sure you discuss any questions you have with your health care provider. Document Revised: 04/02/2021 Document Reviewed: 04/02/2021 [employer] Patient Education ?? 2022 [employer]. Tests Performed Lab Test Name Test Result Date/Time WBC 13.7 x10^3/mcL 06/24/2024 21:40 EST RBC 4.4 x10^6/mcL 06/24/2024 21:40 EST Hgb 13.1 g/dL 06/24/2024 21:40 EST Hct 39.0 % 06/24/2024 21:40 EST MCV 88.4 fL 06/24/2024 21:40 EST MCH 29.7 pg 06/24/2024 21:40 EST MCHC 33.6 g/dL 06/24/2024 21:40 EST RDW-CV 14.6 % 06/24/2024 21:40 EST Platelets 363 x10^3/mcL 06/24/2024 21:40 EST Neutro Auto 69.3 % 06/24/2024 21:40 EST Lymph Auto 23.3 % 06/24/2024 21:40 EST Sumner Auto 5.5 % 06/24/2024 21:40 EST Eos, Auto 1.2 % 06/24/2024 21:40 EST Basophil Auto 0.3 % 06/24/2024 21:40 EST Imm Gran Auto 0.4 % 06/24/2024 21:40 EST Neutro Absolute 9.5 x10^3/mcL 06/24/2024 21:40 EST pH Dick 7.46 pH unit(s) 06/24/2024 21:40 EST pCO2 Dick 56.1 mmHg 06/24/2024 21:40 EST pO2 Dick 30.3 mmHg 06/24/2024 21:40 EST HCO3 Venous 40 mmol/L 06/24/2024 21:40 EST O2 Sat Dick 58 % 06/24/2024 21:40 EST CO2 Total Venous 42 mmol/L 06/24/2024 21:40 EST Base Excess Venous 13.6 mmol/L 06/24/2024 21:40 EST Sodium Level 137 mmol/L 06/24/2024 21:40 EST Potassium Level 2.9 mmol/L 06/24/2024 21:40 EST Chloride Level 91 mmol/L 06/24/2024 21:40 EST CO2 37 mmol/L 06/24/2024 21:40 EST Alk Phos 103 unit/L 06/24/2024 21:40 EST AST 19 unit/L 06/24/2024 21:40 EST ALT 20 unit/L 06/24/2024 21:40 EST BUN 22 mg/dL 06/24/2024 21:40 EST Glucose Level 116 mg/dL 06/24/2024 21:40 EST Creatinine Level 1.12 mg/dL 06/24/2024 21:40 EST eGFR AA 52 06/24/2024 21:40 EST eGFR Non-AA 52 06/24/2024 21:40 EST Calcium Level 9.6 mg/dL 06/24/2024 21:40 EST Protein Total 7.6 g/dL 06/24/2024 21:40 EST Albumin Level 3.4 g/dL 06/24/2024 21:40 EST Bilirubin Total 0.2 mg/dL 06/24/2024 21:40 EST Troponin-I <5.0 pg/mL 06/24/2024 21:40 EST NT-proBNP 69 pg/mL 06/24/2024 21:40 EST Patient/Clinical Engineer Signature Patient Name:AUBREE COUCH I have received this information and my questions have been answered. Patient/Clinical Engineer Name: Patient/Clinical Engineer Signature: Relationship to Patient: Witness Name/Signature: Date: Electronically Signed on: 06/24/2024 22:49 ESTSigned by:MRB Emergency department Note * Yola Altman M: PERFORM Event Display: ED Notes Authored Date: [id number] History and physical note * Event Display: History and Physical Update Authored Date: [id number] Patient Care team information Care Team Personnel Name: Dilan Hernandez MD Position: Physician Member Role: Primary Care Physician Address: [address] [address] [address] [place] [employer]: Care Team Related Persons Name: LIAM QUIGLEY Name: GRACIELA COUCH Insurance Providers Guarantor name: AUBREE COUCH Health Plan Information #: 1 Payer: [employer] PPO Member Number: [id number] Policy Number: NA Group Number: NA Health Plan Information #: 2 Payer: [employer] [employer]ANT[employer] PPO Member Number: [id number] Policy Number: NA Group Number: NA Health Plan Information #: 3 Payer: [employer] RE[employer]VANTAGE PPO Member Number: NA Policy Number: NA Group Number: NA
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
--- OUTSIDE RECORDS SUMMARY | 2024-07-07 20:02 | XMS_ITS | Continuity of Care Document ---
Author Organization [facility] Address [address] [place] [address] Care Team Providers Care Rug Inspector Name Role Phone Dilan Hernandez Primary Care Physician Encounter [facility] [id number] Date(s): 10/22/22 - 10/22/22 [facility] [address] [place] [address] Encounter Diagnosis Neurogenic claudication(Discharge Diagnosis) - 10/22/22 Discharge Disposition: Home or Self Care Attending [...] Inactivated Influenza 01/20/2019 Administered by NOEMÍ HERNANDEZ, Roller Setter 04-09-2020 3Result Comment: influenza, trivalent, adjuvanted VIS given: 03-24-2019 VIS published date: Inactivated Influenza 01/20/2019 Administered by SOWMYA MCMILLAN, Roller Setter 03-24-2019 4Result Comment: influenza, high dose seasonal Administered by: SULTANA 5Result Comment: influenza, high-dose, quadrivalent Patient Declined Last Modified by SOWMYA MCMILLAN Roller Setter 06-21-2020, 11:26 Medications Albuterol (Eqv-ProAir HFA) 90 mcg/inh inhalation aerosol 2 puffs, Inhale, every 4 hr, # 8.5 g, 6 Refill(s), Pharmacy: [facility], 156, cm, 03/27/22 9:33:00 EDT, Height/Length Dosing, 68.04, kg, 03/27/22 9:33:00 EDT, Weight Dosing Start Date: 09/29/22 Status: Ordered Ativan 0.5 mg oral tablet See Instructions, take 30-60 minutes prior to procedure., # 1 tab, 0 Refill(s), Pharmacy: [facility], 156, cm, 03/27/22 9:33:00 EDT, Height/Length Dosing, 68.04, kg, 03/27/22 9:33:00 EDT, Weight Dosing Start Date: 09/29/22 Status: Ordered diazePAM 2 mg oral tablet See Instructions, Take one tablet 1 hr prior to procedure and 1 tablet right before procedure., # 2tab, 0 Refill(s), Pharmacy: [id number], 156, cm, 03/27/22 9:33:00 EDT, Height/Length Dosing, 68.04, kg, 03/27/22 9:33:00 EDT, Weight Dosing Start Date: 10/10/22 Status: Ordered escitalopram 10 mg oral tablet 10 mg = 1 tab, Oral, Daily, TAKE 1 TABLET BY MOUTH ONCE DAILY, # 90 tab, 3 Refill(s), Pharmacy: [facility] [address], 156, cm, 03/27/22 9:33:00 EDT, Height/Length Dosing, 68.04, kg, 03/27/22 9:33:00EDT, Weight Dosing Start Date: 05/12/22 Status: Ordered ferrous sulfate 325 mg (65 mg elemental iron) oral delayed release tablet 325 mg = 1 tab, Oral, Daily, # 90 tab, 0 Refill(s), Pharmacy: [id number], 156, cm, 03/27/22 9:33:00 EDT, Height/Length Dosing, 68.04, kg, 03/27/22 9:33:00 EDT, Weight Dosing Start Date: 08/15/22 Status: Ordered nystatin 100,000 units/mL oral suspension 400,000 units = 4 mL, Oral, QID, # 120 mL, 0 Refill(s), Pharmacy: [facility], 156, cm, 03/27/22 9:33:00 EDT, Height/Length [...] 0 Refill(s) Start Date: 09/29/22 Status: Ordered Trelegy Ellipta 100 mcg-62.5 mcg-25 mcg/inh inhalation powder 1 puffs, Inhale, Daily, at the same time every day, # 60 EA, 4 Refill(s), Pharmacy: [facility], 156, cm, 03/27/22 9:33:00 EDT, Height/Length Dosing, 68.04, kg, 03/27/22 9:33:00 EDT, WeightDosing Start Date: 10/13/22 Status: Ordered Vitamin C 500 mg oral tablet 500 mg = 1 tab, Oral, Daily, # 90 tab, 0 Refill(s), Pharmacy: [facility], 156, cm, 03/27/22 9:33:00 [...] 5 year call-back 5Sisson 6right, d/t cyst [id number]/1983 with Left salpingectomy Social History Social History Type Response Smoking Status Smoking tobacco use: Current everyday tobacco user;Never; Number used per day: 1.5 PPD; entered on: 03/27/22 Sex Female History and physical note * Event Display: History and Physical Update Authored Date: [id number] Patient Care team information Care Team Personnel Name: Dilan Hernandez MD Position: Physician Member Role: Primary Care Physician Address: Address: [address] Care Team Related Persons Name: LIAM QUIGLEY Address: [address] [address] Address: Home [address] [place] [phone] Name: GRACIELA COUCH Address: Home [address] [phone]
--- OUTSIDE RECORDS SUMMARY | 2024-07-07 20:02 | XMS_ITS | Continuity of Care Document ---
Author Organization [facility] Address [address] [place] [address] Care Team Providers Care Trapper Animal Name Role Phone Dilan Hernandez Primary Care Physician [phone] Encounter [facility] [id number] Date(s): 06/15/23 - 06/15/[address] [address] Encounter Diagnosis Right pulmonary embolus(Discharge Diagnosis) - 06/15/23 Discharge Disposition: Home or Self Care Attending Physician: Sabiha Hugo MD Admitting Physician: Sabiha Hugo MD Allergies, Adverse Reactions, Alerts No Known Medication Allergies Assessment and Plan Extracted from: Title:Clinical Document Author:Robert White Date:06/15/23 Diagnosis: 1. Right pulmonar y embolus Comment: Diagnosis: Shortness of breath Comment: Future Appointments Future Scheduled Tests Laboratory* Basic Metabolic Panel 09/29/22 * Hemoglobin A1c 09/29/22 Radiology* NM Myocardial Rest Stress 2 Day Protocol 06/05/23 * CT Urogram 05/14/23 Immunizations Given and Recorded Vaccine Date Status [...] Inactivated Influenza 01/20/2019 Administered by NOEMÍ HERNANDEZ, Cargo Mate 04-09-2020 2Result Comment: influenza, trivalent, adjuvanted VIS given: 03-24-2019 VIS published date: Inactivated Influenza 01/20/2019 Administered by SOWMYA MCMILLAN, Cargo Mate 03-24-2019 3Result Comment: influenza, high dose seasonal Administered by: SULTANA 4Result Comment: William 5Result Comment: influenza, high-dose, quadrivalent Patient Declined Last Modified by SOWMYA MCMILLAN Cargo Mate 06-21-2020, 11:26 Medications Albuterol (Eqv-ProAir HFA) 90 mcg/inh inhalation aerosol 2 puffs, Inhale, every 4 hr, # 8.5 g, 6 Refill(s), Pharmacy: [facility], 156, cm, 03/27/22 9:33:00 EDT, Height/Length Dosing, 68.04, kg, 03/27/22 9:33:00 EDT, Weight Dosing Start Date: 09/29/22 Status: Ordered apixaban 5 mg oral tablet See Instructions, Take 10mg by mouth twice daily for 7 days, then take 5mg by mouth twice daily, # 70 tab, 0 Refill(s), Pharmacy: [facility], 155, cm, 05/04/23 10:37:00 EST, Height, 78.97,kg, 05/14/23 10:34:00 EST, Weight Dosing Start Date: 06/15/23 Status: Ordered COPD J44.1 COPD J44.1, Please include tubing and mouthpiece, Supply, See instructions, # 1 EA, 0 Refill(s) Start Date: 12/15/22 Status: Ordered escitalopram 10 mg oral tablet 10 mg = 1 tab, Oral, Daily, TAKE 1 TABLET BY MOUTH ONCE DAILY, # 90 tab, 3 Refill(s), Pharmacy: [facility], 156, cm, 03/27/22 9:33:00 EDT, Height/Length Dosing, 68.04, kg, 03/27/22 9:33:00EDT, Weight Dosing Start Date: 05/12/22 Status: Ordered ferrous sulfate 325 mg (65 mg elemental iron) oral delayed release tablet 325 mg = 1 tab, Oral, Daily, # 90 tab, 0 Refill(s), Pharmacy: [facility], 156, cm, 03/27/22 9:33:00 EDT, Height/Length Dosing, 68.04, kg, 03/27/22 9:33:00 EDT, Weight Dosing Start Date: 08/15/22 Status: Ordered ipratropium-albuterol 0.5 mg-2.5 mg/3 mL inhalation solution See Instructions, USE 1 AMPULE IN NEBULIZER EVERY 4 HOURS NEEDED FOR SHORTNESS OF BREATH OR WHEEZING, # 90 mL, 4 Refill(s), Pharmacy: [facility], 154, cm, 04/03/23 18:11:00 EDT, Height/Length Dosing, 76.6, kg, 04/15/23 11:00:00 EST, Weight Dosing Start Date: 04/15/23 Status: Ordered Lyrica 25 mg oral capsule 25 mg = 1 cap, Oral, TID, # 90 cap, 3 Refill(s), Pharmacy: [place] [address], 155, cm, 05/04/2310:37:00 EST, Height, 78.97, kg, 05/14/23 10:34:00 EST, Weight Dosing Start Date: 05/14/23 Status: Ordered omeprazole 40 mg oral delayed release capsule 40 mg = 1 cap, Oral, Daily, # 90 cap, 3 Refill(s), Pharmacy: [place] [address], 155, cm, 12/04/22 20:52:00 EDT, Height/Length Dosing, 69.4, kg, 12/04/22 20:52:00 EDT, Weight Dosing Start Date: 01/29/23 Status: Ordered Oxygen Therapy Supply, See instructions, # 1 EA, 0 Refill(s) Start Date: 11/19/22 Status: Ordered Ozempic 2 mg/3 mL (0.25 mg or 0.5 mg dose) subcutaneous solution 0.25 mg =, Subcutaneous, every week, rotate injection sites, # 1 EA, 0 Refill(s), Pharmacy: [place] [address], 154, cm, 04/03/23 18:11:00 EDT, Height/Length Dosing, 76.35, kg, 04/23/23 14:48:00 EST, Weight Dosing Start Date: 04/27/23 Status: Ordered pramipexole 1 mg oral tablet See Instructions, Take 2 tablets by mouth twice daily, # 120 tab, 6 Refill(s), Pharmacy: [place] [id number], 155, cm, 05/04/23 10:37:00 EST, Height, 78.97, kg, 05/14/23 10:34:00 EST, Weight Dosing Start Date: 05/29/23 Status: Ordered pramipexole 1 mg oral tablet See Instructions, 0 Refill(s) Start Date: 04/15/23 Status: Ordered Trelegy Ellipta 100 mcg-62.5 mcg-25 mcg/inh inhalation powder See Instructions, INHALE 1 PUFF ONCE DAILY AT THE SAME TIME EACH DAY, # 60 EA, 4 Refill(s), Pharmacy: [facility], 155, cm, 12/04/22 20:52:00 EDT, Height/Length Dosing, 69.4, kg, 12/04/22 20:52:00 EDT, Weight Dosing Start Date: 03/17/23 Status: Ordered Vitamin C 500 mg oral tablet 500 mg = 1 tab, Oral, Daily, # 90 tab, 0 Refill(s), Pharmacy: [facility], 156, cm, 03/27/22 9:33:00 [...] Confirmed 08/23/20 Active Diarrhea Confirmed 09/06/18 Active Gastroesophageal reflux [...] Overview: Added automatically from request for surgery [id number] 2Outside Source Comment: Overview: Added automatically from request for surgery [id number] Procedures Procedure Date Related Diagnosis Body Site [...] 5Sisson 6right, d/t cyst with Left salpingectomy Results Laboratory List Name Date CBC w/ Diff 06/15/23 Comprehensive Metabolic Panel 06/15/23 NT- Pro BNP 06/15/23 Troponin-I 06/15/23 SARS-CoV-2 (COVID-19)/Flu/RSV (GeneXpert ) 06/15/23 Automated Diff 06/15/23 Most recent to oldest [Reference Range]: 1 WBC [5.0-10.0 x10^3/mcL] 10.4 x10^3/mcL *HI* (06/15/23 1:45 PM) RBC [4.1-5.3 x10^6/mcL] 4.4 x10^6/mcL (06/15/23 1:45 PM) Neutro Auto [40.0-75.0 %] 65.1 % (06/15/23 1:45 PM) Lymph Auto [20.0-50.0 %] 25.2 % (06/15/23 1:45 PM) Navarro Auto [2.0-15.0 %] 6.1 % (06/15/23 1:45 PM) Basophil Auto [0.0-1.0 %] 0.7 % (06/15/23 1:45 PM) BUN [7-18 mg/dL] 21 mg/dL *HI* (06/15/23 1:45 PM) Glucose Level [74-106 mg/dL] 112 mg/dL *HI* (06/15/23 1:45 PM) Potassium Level [3.5-5.1 mmol/L] 4.6 mmo l/L (06/15/23 1:45 PM) MCV [80.0-96.0 fL] 90.8 fL (06/15/23 1:45 PM) AST [15-37 unit/L] 29 unit/L (06/15/23 1:45 PM) ALT [14-59 unit/L] 30 unit/L (06/15/23 1:45 PM) MCHC [31.0-35.0 g/dL] 33.7 g/dL (06/15/23 1:45 PM) Troponin-I [0.0-51.4 pg/mL] 5.1 pg/mL (06/15/23 1:45 PM) Sodium Level [136-145 mmol/L] 134 mmol/L *LOW* (06/15/23 1:45 PM) Hct [37.0-47.0 %] 40.4 % (06/15/23 1:45 PM) Calcium Level [8.5-10.1 mg/dL] 9.5 mg/dL (06/15/23 1:45 PM) Albumin Level [3.4-5.0 g/dL] 3.5 g/dL (06/15/23 1:45 PM) Protein Total [6.4-8.2 g/dL] 7.1 g/dL (06/15/23 1:45 PM) MCH [26.0-32.0 pg] 30.6 pg (06/15/23 1:45 PM) Neutro Absolute 6.8 x10^3/mcL *NA* (06/15/23 1:45 PM) Bilirubin Total [0.2-1.0 mg/dL] 0.2 mg/d L (06/15/23 1:45 PM) Hgb [12.0-16.0 g/dL] 13.6 g/dL (06/15/23 1:45 PM) Alk Phos [46-146 unit/L] 94 unit/L (06/15/23 1:45 PM) Platelets [130-450 x10^3/mcL] 327 x10^3/ mcL (06/15/23 1:45 PM) CO2 [21-32 mmol/L] 29 mmol/L (06/15/23 1:45 PM) eGFR Non-AA [>=60] 79 (06/15/23 1:45 PM) eGFR AA [>=60] 79 (06/15/23 1:45 PM) NT-proBNP [0-125 pg/mL] 90 pg/mL (06/15/23 1:45 PM) Chloride Level [98-107 mmol/L] 98 mmol/L (06/15/23 1:45 PM) RDW-CV [11.5-14.5 %] 13.3 % (06/15/23 1:45 PM) Imm Gran Auto [0.0-0.9 %] 0.4 % (06/15/23 1:45 PM) Creatinine Level [0.55-1.02 mg/dL] 0.80 mg/dL (06/15/23 1:45 PM) Employed in healthcare? Unknown *NA* (06/15/23 1:42 PM) Symptomatic as defined by CDC? Unknown *NA* (06/15/23 1:42 PM) Hospitalized due to COVID-19? Unknown *NA* (06/15/23 1:42 PM) In ICU? Unknown *NA* (06/15/23 1:42 PM) Group care resident? Unknown *NA* (06/15/23 1:42 PM) status? Unknown *NA* (06/15/23 1:42 PM) SARS-CoV-2(Covid19)PCR(GXpert COVFLURSV) [Negative] Negative (06/15/23 1:42 PM) Flu A (GXpert COVFLURSV) [Negative] Nega tive (06/15/23 1:42 PM) RSV (GXpert COVFLURSV) [Negative] Negati ve (06/15/23 1:42 PM) Flu B (GXpert COVFLURSV) [Negative] Nega tive (06/15/23 1:42 PM) Eos, Auto [1.0-6.0 %] 2.5 % (06/15/23 1:45 PM) Vital Signs Most recent to oldest [Reference Range]: 1 2 3 Temperature Temporal Artery [36-38 Deg C] 36.2 Deg C (06/15/23 1:21 PM) 36.0 Deg C (06/15/23 11:51 AM) Peripheral Pulse Rate [60-100 bpm] 73 bpm (06/15/23 1:21 PM) 93 bpm (06/15/23 11:51 AM) Heart Rate Monitored [60-100 bpm] 77 bpm (06/15/23 3:16 PM) Respiratory Rate [12-24 br/min] 18 br/min (06/15/23 3:16 PM) 20 br/min (06/15/23 1:21 PM) 24 br/min (06/15/23 11:51 AM) Blood Pressure [90-140/60-90 mmHg] 131/73mmHg (06/15/23 1:21 PM) 123/75mmHg (06/15/23 11:51 AM) Mean Arterial Pressure, Cuff [70-110 mmHg] 91 mmHg (06/15/23 11:51 AM) Weight Estimated 76.20 kg (06/15/23 11:51 AM) Body Mass Index Estimated 31.74 kg/m2 (06/15/23 11:51 AM) Height/Length Estimated 154.94 cm (06/15/23 11:51 AM) Social History Social History Type Response Smoking Status Smoking tobacco use: Current everyday tobacco user;Never; Number used per day: 1.5 PPD; entered on: 06/15/23 Sex Female Hospital Discharge Instructions Patient Education 06/15/2023 15:30:34 Pulmonary Embolism Pulmonary Embolism A pulmonary embolism (PE) is a sudden blockage or decrease of blood flow in one or both lungs that happens when a clot travels into the arteries of the lung (pulmonary arteries). Most blockages come from a blood clot that forms in the vein of a leg or arm (deep vein thrombosis, DVT) and travels to the lungs. A clot is blood that has thickened into a gel or solid. PE is a dangerous and life-threatening condition that needs to be treated right away. What are the causes? This condition is usually caused by a blood clot that forms in a vein and moves to the lungs. In rare cases, it may be caused by air, fat, part of a tumor, or other tissue that moves through the veins and into the lungs. What increases the risk? The following factors may make you more likely to develop this condition: ??? Experiencing a traumatic injury, such as breaking a hip or leg. ??? Having: ??? A spinal cord injury. ??? Major surgery, especially hip or knee replacement, or surgery on parts of the nervous system oron the abdomen. ??? A stroke. ??? A blood-clotting disease. ??? Long-term (chronic) lung or heart disease. ??? Cancer, especially if you are being treated with chemotherapy. ??? A central venous catheter. ??? Taking medicines that contain estrogen. These include control pills and hormone replacement therapy. ??? Being: ??? . ??? In the period of time after your baby is delivered (). ??? Older than age 60. ??? Overweight. ??? A smoker, especially if you have other risks. ??? Not very active (sedentary), not being able to move at all, or spending long periods sitting, such as travel over 6 hours. You are also at a greater risk if you have a leg in a cast or splint. What are the signs or symptoms? Symptoms of this condition usually start suddenly and include: ??? Shortness of breath during activity or at rest. ??? Coughing, coughing up blood, or coughing up bloody mucus. ??? Chest pain, back pain, or shoulder blade pain that gets worse with deep breaths. ??? Rapid or irregular heartbeat. ??? Feeling light-headed or dizzy, or fainting. ??? Feeling anxious. ??? Pain and swelling in a leg. This is a symptom of DVT, which can lead to PE. How is this diagnosed? This condition may be diagnosed based on your medical history, a physical exam, and tests. Tests may include: ??? Blood tests. ??? An ECG (electrocardiogram) of the heart. ??? A CT pulmonary angiogram. This test checks blood flow in and around your lungs. ??? A ventilation???perfusion scan, also called a lung VQ scan. This test measures air flow and blood flow to the lungs. ??? An ultrasound to check for a DVT. How is this treated? Treatment for this condition depends on many factors, such as the cause of your PE, your risk for bleeding or developing more clots, and other medical conditions you may have. Treatment aims to stop blood clots from forming or growing larger. In some cases, treatment may be aimed at breaking apart or removing the blood clot. Treatment may include: ??? Medicines, such as: ??? Blood thinning medicines, also called anticoagulants, to stop clots from forming and growing. ??? Medicines that break apart clots (fibrinolytics). ??? Procedures, such as: ??? Using a flexible tube to remove a blood clot (embolectomy) or to deliver medicine to destroy it(catheter-directed thrombolysis). ??? Surgery to remove the clot (surgical embolectomy). This is rare. You may need a combination of immediate, long-term, and extended treatments. Your treatment may continue for several months (maintenance therapy) or longer depending on your medical conditions. You and your health care provider will work together to choose the treatment program that is best for you. Follow these instructions at home: Medicines ??? Take uctx-lqb-qubhjpc and prescription medicines only as told by your health care provider. ??? If you are taking blood thinners: ??? Talk with your health care provider before you take any medicines that contain aspirin or NSAIDs, such as ibuprofen. These medicines increase your risk for dangerous bleeding. ??? Take your medicine exactly as told, at the same time every day. ??? Avoid activities that could cause injury or bruising, and follow instructions about how to prevent falls. ??? Wear a medical alert bracelet or carry a card that lists what medicines you take. ??? Understand what foods and drugs interact with any medicines that you are taking. General instructions ??? Ask your health care provider when you may return to your normal activities. Avoid sitting or lying for a long time without moving. ??? Maintain a healthy weight. Ask your health care provider what weight is healthy for you. ??? Do not use any products that contain nicotine or tobacco. These products include cigarettes, chewing tobacco, and vaping devices, such as e-cigarettes. If you need help quitting, ask your health care provider. ??? Talk with your health care provider about any travel plans. It is important to make sure that you are still able to take your medicine while traveling. ??? Keep all follow-up visits. This is important. Where to find more information ??? [employer]: www.lung.org ??? Centers for Disease Control and Prevention: www.cdc.gov Contact a health care provider if: ??? You missed a dose of your blood thinner medicine. ??? You have a fever. Get help right away if: ??? You have: ??? New or increased pain, swelling, warmth, or redness in an arm or leg. ??? Shortness of breath that gets worse during activity or at rest. ??? Worsening chest pain. ??? A rapid or irregular heartbeat. ??? A severe headache. ??? Vision changes. ??? A serious fall or accident, or you hit your head. ??? Blood in your vomit, stool, or urine. ??? A cut that will not stop bleeding. ??? You cough up blood. ??? You feel light-headed or dizzy, and that feeling does not go away. ??? You cannot move your arms or legs. ??? You are confused or have memory loss. These symptoms may represent a serious problem that is an emergency. Do not wait to see if the symptoms will go away. Get medical help right away. Call your local emergency services (911 in the [place] Do not drive yourself to the hospital. Summary ??? A pulmonary embolism (PE) is a serious and potentially life-threatening condition. It happens when a blood clot from one part of the body travels to the arteries of the lung, causing a sudden blockage or decrease of blood flow to the lungs. This may result in shortness of breath, chest pain, dizziness, and fainting. ??? Treatments for this condition usually include medicines to thin your blood (anticoagulants) or medicines to break apart blood clots. ??? If you are given blood thinners, take your medicine exactly as told by your health care provider, at the same time every day. This is important. ??? Understand what foods and drugs interact with any medicines that you are taking. ??? If you have signs of PE or DVT, call your local emergency services (911 in the [place] This information is not intended to replace advice given to you by your health care provider. Make sure you discuss any questions you have with your health care provider. Document Revised: 04/26/2021 Document Reviewed: 04/26/2021 [facility] Patient Education ?? 2022 [employer] Follow Up Care 06/15/2023 11:51:51 With:Dilan Hernandez MD Address: [address] [address] When:1 week Emergency department Discharge instructions * Dawson Horner MD: PERFORM Event Display: ED Discharge Information Authored Date: [id number] AUBREE COUCH :1950 Age:73 years Sex:Female Visit Date:06/15/2023 Primary Care Physician: Dilan Hernandez MD Discharge Instructions We would like to thank you for allowing us to assist you with your healthcare needs. The following includes patient education materials and information regarding your injury/illness. Diagnosis from Today's Visit Right pulmonary embolus Discharge Vitals Temperature??(Temporal Artery) 97.2 ??F (36.2 ??C) Heart Rate??(Monitored) 77 Respiratory Rate?? 18 Blood Pressure?? 131/73?? Height?? 61.00 in (154.94 cm) Weight??(Estimated) 168.02 lb (76.20 kg) BMI?? 31.74 Allergies No Known Medication Allergies What to Do Next Instructions from Your Care Team The CT scan showed a small blood clot in your lungs on the right side which is likely at least to some degree contributing to your breathing issues. ??We are going to start you on a blood thinner called Eliquis/apixaban to treat this. ??We are also going to put in an echocardiogram to??evaluate your heart function and an ultrasound of your legs??to see if there is a blood clot here. ??These results will be sent to Dr. Hernandez and he can review them with you to determine if you need any furthertreatment and how long you will need to be on the blood thinner for.?? Please return to the emergency department if you have any new or concerning symptoms including any worsening trouble breathing, chest pain, any signs of bleeding including dark or tarry stools, or if you have any other concerns. You Need to Schedule the Following Appointments Follow Up with??Dilan Hernandez MD When:??Within 1 week Where: [facility] [address] [address] Upcoming Scheduled Appointments 2023 11:00 AM EST ?? With: Dilan Hernandez MD Where: [facility] [address] [address] Status: Confirmed Thursday 8:30 AM EST ?? With: Jaimee Cerda NP Where: [facility] [address] [place] [address] Status: Confirmed You were treated today [...] Much When Why Instructions Next Dose New apixaban (apixaban 5 mg oral tablet) See instructions Right pulmonary embolus Take 10mg by mouth twice daily for 7 days, then take 5mg by mouth twice daily ?? Pickup at [facility] Unchanged albuterol (Albuterol (Eqv-ProAir HFA) 90 mcg/ [...] THE SAME TIME EACH DAY ?? Unchanged ipratropium-albuterol (ipratropium-albuterol 0.5 mg-2.5 mg/ 3 mL inhalation solution) Seeinstructions USE 1 AMPULE IN NEBULIZER EVERY 4 HOURS NEEDED FOR SHORTNESS OF BREATH OR WHEEZING ?? Unchanged omeprazole (omeprazole 40 mg oral delayed release capsule) 1 Capsules Oral (given by mouth) Every day Unchanged pramipexole (pramipexole 1 mg oral tablet) See instructions Unchanged pramipexole (pramipexole 1 mg oral tablet) See instructions Take 2 tablets by mouth twice daily ?? Unchanged pregabalin (Lyrica 25 mg oral capsule) 1 Capsules Oral (given by mouth) 3 times a day Unchanged semaglutide (Ozempic 2 mg/ 3 mL (0.25 mg or 0.5 mg dose) subcutaneous solution) 0.25 Milligrams Subcutaneous (under the skin) Every week Obesity rotate injection sites ?? Pharmacy Information [facility] 4156: [address] [place] [address] [phone] Education Materials Pulmonary Embolism A pulmonary embolism (PE) is a sudden blockage or decrease of blood flow in one or both lungs that happens when a clot travels into the arteries of the lung (pulmonary arteries). Most blockages come from a blood clot that forms in the vein of a leg or arm (deep vein thrombosis, DVT) and travels to the lungs. A clot is blood that has thickened into a gel or solid. PE is a dangerous and life-threatening condition that needs to be treated right away. What are the causes? This condition is usually caused by a blood clot that forms in a vein and moves to the lungs. In rare cases, it may be caused by air, fat, part of a tumor, or other tissue that moves through the veins and into the lungs. What increases the risk? The following factors may make you more likely to develop this condition: ? Experiencing a traumatic injury, such as breaking a hip or leg. ? Having: ? A spinal cord injury. ? Major surgery, especially hip or knee replacement, or surgery on parts of the nervous system or on the abdomen. ? A stroke. ? A blood-clotting disease. ? Long-term (chronic) lung or heart disease. ? Cancer, especially if you are being treated with chemotherapy. ? A central venous catheter. ? Taking medicines that contain estrogen. These include control pills and hormone replacement therapy. ? Being: ? . ? In the period of time after your baby is delivered (). ? Older than age 60. ? Overweight. ? A smoker, especially if you have other risks. ? Not very active (sedentary), not being able to move at all, or spending long periods sitting, such as travel over 6 hours. You are also at a greater risk if you have a leg in a cast or splint. What are the signs or symptoms? Symptoms of this condition usually start suddenly and include: ? Shortness of breath during activity or at rest. ? Coughing, coughing up blood, or coughing up bloody mucus. ? Chest pain, back pain, or shoulder blade pain that gets worse with deep breaths. ? Rapid or irregular heartbeat. ? Feeling light-headed or dizzy, or fainting. ? Feeling anxious. ? Pain and swelling in a leg. This is a symptom of DVT, which can lead to PE. How is this diagnosed? This condition may be diagnosed based on your medical history, a physical exam, and tests. Tests may include: ? Blood tests. ? An ECG (electrocardiogram) of the heart. ? A CT pulmonary angiogram. This test checks blood flow in and around your lungs. ? A ventilation???perfusion scan, also called a lung VQ scan. This test measures air flow and blood flow to the lungs. ? An ultrasound to check for a DVT. How is this treated? Treatment for this condition depends on many factors, such as the cause of your PE, your risk for bleeding or developing more clots, and other medical conditions you may have. Treatment aims to stop blood clots from forming or growing larger. In some cases, treatment may be aimed at breaking apart or removing the blood clot. Treatment may include: ? Medicines, such as: ? Blood thinning medicines, also called anticoagulants, to stop clots from forming and growing. ? Medicines that break apart clots (fibrinolytics). ? Procedures, such as: ? Using a flexible tube to remove a blood clot (embolectomy) or to deliver medicine to destroy it (catheter-directed thrombolysis). ? Surgery to remove the clot (surgical embolectomy). This is rare. You may need a combination of immediate, long-term, and extended treatments. Your treatment may continue for several months (maintenance therapy) or longer depending on your medical conditions. You and your health care provider will work together to choose the treatment program that is best for you. Follow these instructions at home: Medicines ? Take exsc-god-kqmofkf and prescription medicines only as told by your health care provider. ? If you are taking blood thinners: ? Talk with your health care provider before you take any medicines that contain aspirin or NSAIDs, such as ibuprofen. These medicines increase your risk for dangerous bleeding. ? Take your medicine exactly as told, at the same time every day. ? Avoid activities that could cause injury or bruising, and follow instructions about how to prevent falls. ? Wear a medical alert bracelet or carry a card that lists what medicines you take. ? Understand what foods and drugs interact with any medicines that you are taking. General instructions ? Ask your health care provider when you may return to your normal activities. Avoid sitting or lyingfor a long time without moving. ? Maintain a healthy weight. Ask your health care provider what weight is healthy for you. ? Do not use any products that contain nicotine or tobacco. These products include cigarettes, chewing tobacco, and vaping devices, such as e-cigarettes. If you need help quitting, ask your health careprovider. ? Talk with your health care provider about any travel plans. It is important to make sure that you are still able to take your medicine while traveling. ? Keep all follow-up visits. This is important. Where to find more information ? [employer]: www.lung.org ? Centers for Disease Control and Prevention: www.cdc.gov Contact a health care provider if: ? You missed a dose of your blood thinner medicine. ? You have a fever. Get help right away if: ? You have: ? New or increased pain, swelling, warmth, or redness in an arm or leg. ? Shortness of breath that gets worse during activity or at rest. ? Worsening chest pain. ? A rapid or irregular heartbeat. ? A severe headache. ? Vision changes. ? A serious fall or accident, or you hit your head. ? Blood in your vomit, stool, or urine. ? A cut that will not stop bleeding. ? You cough up blood. ? You feel light-headed or dizzy, and that feeling does not go away. ? You cannot move your arms or legs. ? You are confused or have memory loss. These symptoms may represent a serious problem that is an emergency. Do not wait to see if the symptoms will go away. Get medical help right away. Call your local emergency services (911 in the [place] Do not drive yourself to the hospital. Summary ? A pulmonary embolism (PE) is a serious and potentially life-threatening condition. It happens when a blood clot from one part of the body travels to the arteries of the lung, causing a sudden blockage or decrease of blood flow to the lungs. This may result in shortness of breath, chest pain, dizziness, and fainting. ? Treatments for this condition usually include medicines to thin your blood (anticoagulants) or medicines to break apart blood clots. ? If you are given blood thinners, take your medicine exactly as told by your health care provider, at the same time every day. This is important. ? Understand what foods and drugs interact with any medicines that you are taking. ? If you have signs of PE or DVT, call your local emergency services (911 in the [place] This information is not intended to replace advice given to you by your health care provider. Make sure you discuss any questions you have with your health care provider. Document Revised: 04/26/2021 Document Reviewed: 04/26/2021 [employer] Patient Education ?? 2022 [employer] Tests Performed Medications and Immunizations Administered Given albuterol, 2.5 mg, Nebulized Inhalation ipratropium-albuterol 0.5 mg-2.5 mg/3 mL inhalation solution, 3 mL, Inhale Lab Test Name Test Result Date/Time WBC 10.4 x10^3/mcL 06/15/2023 13:45 EST RBC 4.4 x10^6/mcL 06/15/2023 13:45 EST Hgb 13.6 g/dL 06/15/2023 13:45 EST Hct 40.4 % 06/15/2023 13:45 EST MCV 90.8 fL 06/15/2023 13:45 EST MCH 30.6 pg 06/15/2023 13:45 EST MCHC 33.7 g/dL 06/15/2023 13:45 EST RDW-CV 13.3 % 06/15/2023 13:45 EST Platelets 327 x10^3/mcL 06/15/2023 13:45 EST Neutro Auto 65.1 % 06/15/2023 13:45 EST Lymph Auto 25.2 % 06/15/2023 13:45 EST Navarro Auto 6.1 % 06/15/2023 13:45 EST Eos, Auto 2.5 % 06/15/2023 13:45 EST Basophil Auto 0.7 % 06/15/2023 13:45 EST Imm Gran Auto 0.4 % 06/15/2023 13:45 EST Neutro Absolute 6.8 x10^3/mcL 06/15/2023 13:45 EST Sodium Level 134 mmol/L 06/15/2023 13:45 EST Potassium Level 4.6 mmol/L 06/15/2023 13:45 EST Chloride Level 98 mmol/L 06/15/2023 13:45 EST CO2 29 mmol/L 06/15/2023 13:45 EST Alk Phos 94 unit/L 06/15/2023 13:45 EST AST 29 unit/L 06/15/2023 13:45 EST ALT 30 unit/L 06/15/2023 13:45 EST BUN 21 mg/dL 06/15/2023 13:45 EST Glucose Level 112 mg/dL 06/15/2023 13:45 EST Creatinine Level 0.80 mg/dL 06/15/2023 13:45 EST eGFR AA 79 06/15/2023 13:45 EST eGFR Non-AA 79 06/15/2023 13:45 EST Calcium Level 9.5 mg/dL 06/15/2023 13:45 EST Protein Total 7.1 g/dL 06/15/2023 13:45 EST Albumin Level 3.5 g/dL 06/15/2023 13:45 EST Bilirubin Total 0.2 mg/dL 06/15/2023 13:45 EST Troponin-I 5.1 pg/mL 06/15/2023 13:45 EST NT-proBNP 90 pg/mL 06/15/2023 13:45 EST 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 Unknown 06/15/2023 13:42 EST Hospitalized due to COVID-19? Unknown 06/15/2023 13:42 EST In ICU? Unknown 06/15/2023 13:42 EST Group care resident? Unknown 06/15/2023 13:42 EST status? Unknown 06/15/2023 13:42 EST SARS-CoV-2(Covid19)PCR(GXpert COVFLURSV) NEGATIVE 06/15/2023 13:42 EST Flu A (GXpert COVFLURSV) NEGATIVE 06/15/2023 13:42 EST Flu B (GXpert COVFLURSV) Neg-GeneXPert 06/15/2023 13:42 EST RSV (GXpert COVFLURSV) Neg-GeneXPert 06/15/2023 13:42 EST Patient/Extracorporeal Circulation Specialist Signature Patient Name:AUBREE COUCH Arian I have received this information and my questions have been answered. Patient/Extracorporeal Circulation Specialist Name: Patient/Extracorporeal Circulation Specialist Signature: Relationship to Patient: Witness Name/Signature: Date: Electronically Signed on: 06/15/2023 16:52 ESTSigned by:ELLI Emergency department Note * Robert White: PERFORM Event Display: ED Notes Authored Date: * Robert White: PERFORM Event Display: ED Notes Authored Date: History and physical note * Event Display: History and Physical Update Authored Date: Discharge summary * Robert White: PERFORM Event Display: Discharge Note Authored Date: * Robert White: PERFORM Event Display: Discharge Note Authored Date: Diagnosis: 1. Right pulmonary embolus Comment: Diagnosis: Shortness of breath Comment: Electronically Signed on 06/15/23 05:36 PM Robert White Patient Care team information Care Team Personnel Name: Dilan Hernandez MD Position: Physician Member Role: Informed Provider Address: Address: [address] Name: Magalie Dyson Position: Nurse Member Role: ED Nurse Name: Dawson Horner MD Position: Physician Member Role: ED Physician Address: Address: [address] [place] [address] [place] [address] [place] Care Team Related Persons Name: LIAM QUIGLEY Address: Alternate [address] [place] [id number] Address: Home [address] [place] [phone] Address: Mailing [address] [place] [phone] Name: LIAM QUIGLEY Address: Alternate [address] [place] [phone] Address: Home [address] [facility] [place], [id number] Address: Mailing [address] [place] [phone] Name: GRACIELA COUCH Address: Home [address] [facility] [id number]
--- OUTSIDE RECORDS SUMMARY | 2024-07-07 20:03 | XMS_ITS | Continuity of Care Document ---
Author Organization [facility] Address [address] [place] [address] Care Team Providers Care Integration Architect Name Role Phone Dilan Hernandez Primary Care Physician Encounter [facility] [id number] Date(s): 03/31/23 - 03/31/23 [facility] [address] [place] [address] Encounter Diagnosis Chronic obstructive lung disease(Discharge Diagnosis) - 03/31/23 Discharge Disposition: Home or Self Care Attending [...] Inactivated Influenza 01/20/2019 Administered by NOEMÍ HERNANDEZ, Public Health Engineer 04-09-2020 2Result Comment: influenza, trivalent, adjuvanted VIS given: 03-24-2019 VIS published date: Inactivated Influenza 01/20/2019 Administered by SOWMYA MCMILLAN, Public Health Engineer 03-24-2019 3Result Comment: influenza, high dose seasonal Administered by: SULTANA 4Result Comment: William 5Result Comment: influenza, high-dose, quadrivalent Patient Declined Last Modified by SOWMYA MCMILLAN, Public Health Engineer 06-21-2020, 11:26 Medications Albuterol (Eqv-ProAir HFA) 90 mcg/inh inhalation aerosol 2 puffs, Inhale, every 4 hr, # 8.5 g, 6 Refill(s), Pharmacy: [facility], 156, cm, 03/27/22 9:33:00 EDT, Height/Length Dosing, 68.04, kg, 03/27/22 9:33:00 EDT, Weight Dosing Start Date: 09/29/22 Status: Ordered Ativan 0.5 mg oral tablet See Instructions, take 30-60 minutes prior to procedure., # 1 tab, 0 Refill(s), Pharmacy: [facility], 156, cm, 03/27/22 9:33:00 EDT, Height/Length Dosing, 68.04, kg, 03/27/22 9:33:00 EDT, Weight Dosing Start Date: 09/29/22 Status: Ordered COPD J44.1 COPD J44.1, Please include tubing and mouthpiece, Supply, See instructions, # 1 EA, 0 Refill(s) Start Date: 12/15/22 Status: Ordered diazePAM 2 mg oral tablet See Instructions, Take one tablet 1 hr prior to procedure and 1 tablet right before procedure., # 2tab, 0 Refill(s), Pharmacy: [facility]156, 156, cm, 03/27/22 9:33:00 EDT, Height/Length Dosing, 68.04, kg, 03/27/22 9:33:00 EDT, Weight Dosing Start Date: 10/10/22 Status: Ordered escitalopram 10 mg oral tablet 10 mg = 1 tab, Oral, Daily, TAKE 1 TABLET BY MOUTH ONCE DAILY, # 90 tab, 3 Refill(s), Pharmacy: [facility] 4156, 156, cm, 03/27/22 9:33:00 EDT, Height/Length Dosing, 68.04, kg, 03/27/22 9:33:00EDT, Weight Dosing Start Date: 05/12/22 Status: Ordered ferrous sulfate 325 mg (65 mg elemental iron) oral delayed release tablet 325 mg = 1 tab, Oral, Daily, # 90 tab, 0 Refill(s), Pharmacy: [facility], 156, cm, 03/27/22 9:33:00 EDT, Height/Length Dosing, 68.04, kg, 03/27/22 9:33:00 EDT, Weight Dosing Start Date: 08/15/22 Status: Ordered ipratropium-albuterol 0.5 mg-2.5 mg/3 mL inhalation solution 3 mL, NEB, every 4 hr, PRN as needed for shortness of breath or wheezing, COPD J44.1, # 180 mL, 3 Refill(s), Pharmacy: [facility], 155, cm, 12/04/22 20:52:00 EDT, Height/Length Dosing, 69.4, kg, 12/04/22 20:52:00 EDT, Weight Dosing Start Date: 03/05/23 Status: Ordered omeprazole 40 mg oral delayed release capsule 40 mg = 1 cap, Oral, Daily, # 90 cap, 3 Refill(s), Pharmacy: [facility], 155, cm, 12/04/22 20:52:00 EDT, Height/Length Dosing, 69.4, kg, 12/04/22 20:52:00 EDT, Weight Dosing Start Date: 01/29/23 Status: Ordered Oxygen Therapy Supply, See instructions, # 1 EA, 0 Refill(s) Start Date: 11/19/22 Status: Ordered pramipexole 3 mg oral tablet, extended release 180 EA, TAKE 1 TABLET BY MOUTH TWICE DAILY, 0 Refill(s) Start Date: 07/10/22 Status: Ordered predniSONE 10 mg oral tablet See Instructions, Tapered dose 31-20-21-20-00-27-28-79-38-20-10-10, # 42 EA, 0 Refill(s), Pharmacy:[facility], 155, cm, 12/04/22 20:52:00 EDT, Height/Length Dosing, 69.4, kg, 12/04/22 20:52:00 EDT, Weight Dosing Start Date: 01/12/23 Status: Ordered Trelegy Ellipta 100 mcg-62.5 mcg-25 mcg/inh inhalation powder See Instructions, INHALE 1 PUFF ONCE DAILY AT THE SAME TIME EACH DAY, # 60 EA, 4 Refill(s), Pharmacy: [facility], 155, cm, 12/04/22 20:52:00 EDT, Height/Length Dosing, 69.4, kg, 12/04/22 20:52:00 EDT, Weight Dosing Start Date: 03/17/23 Status: Ordered Vitamin C 500 mg oral tablet 500 mg = 1 tab, Oral, Daily, # 90 tab, 0 Refill(s), Pharmacy: [facility], 156, cm, 03/27/22 9:33:00 [...] Overview: Added automatically from request for surgery [id number] 2Outside Source Comment: Overview: Added automatically from request for surgery [id number] Procedures Procedure Date Related Diagnosis Body Site [...] 5 year call-back 5[facility] 6right, d/t cyst [id number]/1983 with Left salpingectomy Social History Social History Type Response Smoking Status Smoking tobacco use: Current everyday tobacco user;Never; Number used per day: 1.5 PPD; entered on: 03/27/22 Sex Female History and physical note * Event Display: History and Physical Update Authored Date: [id number] Patient Care team information Care Team Personnel Name: Dilan Hernandez MD Position: Physician Member Role: Informed Provider Address: Address: [id number] [place] [address] Care Team Related Persons Name: LIAM QUIGLEY Address: [address] [address] Address: [address] [phone] Name: LIAM QUIGLEY Address: [address] [phone] Name: GRACIELA COUCH Address: [address] [phone]
--- OUTSIDE RECORDS SUMMARY | 2024-07-07 20:03 | XMS_ITS | Continuity of Care Document ---
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 2.??COPD exacerbation??J44.1 Ordered: predniSONE 20 mg oral tablet, 40 mg = 2 tab, Oral, Daily, X 5 days, # 10 tab, 0 Refill(s), 06/29/24 22:48:00 EST, Pharmacy: [facility], 155, cm, 05/24/24 22:30:00 EST, Height, 71, kg, 06/24/24 21:15:00 EST, Weight Dosing Discharge Patient, 06/24/24 22:48:00 EST, Home Independently, Constant Indicator ?? 3.??Hypokalemia??E87.6 Ordered: predniSONE 20 mg oral tablet, 40 mg = 2 tab, Oral, Daily, X 5 days, # 10 tab, 0 Refill(s), 06/29/24 22:48:00 EST, Pharmacy: [facility], 155, cm, 05/24/24 22:30:00 EST, Height, 71, kg, 06/24/24 21:15:00 EST, Weight Dosing Discharge Patient, 06/24/24 22:48:00 EST, Home Independently, Constant Indicator ?? Patient Education Hypokalemia Chronic Obstructive Pulmonary Disease, Kazg-jp-Sfcc Follow Up With When Contact Information Dilan Hernandez MD Within 1 to [address] [place] [address]- ?? Additional Instructions: Future Appointments Future [...] Refuses 1Result Comment: right arm,exp 12/05/2024, lot [id number] at [facility] 2Result Comment: left arm, exp 10/28/2024, lot [id number] at [facility] 3Result Comment: influenza, high-dose, quadrivalent VIS given: 04-09-2020 VIS published date: Inactivated Influenza 01/20/2019 Administered by NOEMÍ HERNANDEZ, Drafter Marine 04-09-2020 4Result Comment: influenza, trivalent, adjuvanted VIS given: 03-24-2019 VIS published date: Inactivated Influenza 01/20/2019 Administered by SOWMYA MCMILLAN, Drafter Marine 03-24-2019 5Result Comment: influenza, high dose seasonal Administered by: SULTANA 6Result Comment: William 7Result Comment: Moderna bivalent, 6+ months, blue cap 8Result Comment: influenza, high-dose, quadrivalent Patient Declined Last Modified by SOWMYA MCMILLAN Drafter Marine 06-21-2020, 11:26 Problem List Condition Confirmation Course [...] Overview: Added automatically from request for surgery [id number] 2Right hydronephrosis 3Outside Source Comment: Overview: Added automatically from request for surgery [id number] Procedures Procedure Date Related Diagnosis Body Site [...] sided diverticulosis, polyp; 05/17/2009, [facility] 57[address]/1982 with Left salpingectomy Results Laboratory List Name [...] [20.0-50.0 %] 23.3 % (06/24/24 9:40 PM) Slope Auto [2.0-15.0 %] 5.5 % (06/24/24 9:40 [...] such as yogurt. General instructions ??? Take aiis-bxc-tprngfe and prescription medicines only as told by [...] provider. Document Revised: 02/06/2022 Document Reviewed: 02/06/2022 [employer] Patient Education ?? 2022 [employer]. 06/24/2024 21:47:58 Chronic Obstructive Pulmonary Disease, Hqgr-lg-Rcio Chronic Obstructive Pulmonary Disease Chronic obstructive pulmonary [...] these instructions at home: Medicines ??? Take wlhr-fcz-dzajgvx and prescription medicines only as told by [...] yourself as healthy as possible. ??? Take zhgg-tyo-qfiguex and prescription medicines only as told by your doctor. ??? If you smoke, stop. Smoking makes the problem worse. This information is not intended to replace advice given to you by your health care provider. Make sure you discuss any questions you have with your health care provider. Document Revised: 04/02/2021 Document Reviewed: 04/02/2021 Elsevier Patient Education ?? 2022 [employer] Follow Up Care 06/24/2024 21:09:05 With:Dilan Hernandez MD Address: [address] [place] [address]- When:1 to 2 weeks Physician Emergency department Note * Gold White MD: PERFORM Event Display: ED Note Physician Authored Date: [id number] AUBREE COUCH :1950 Age:74 years Sex:Female Visit [...] 21:40:00 Lymph Auto 23.3 % 06/24/24 21:40:00 Slope Auto 5.5 % 06/24/24 21:40:00 Eos, Auto [...] 10 tab, 0 Refill(s), 06/29/2521:48:00 EST, Pharmacy: [facility], 155, cm, 05/24/24 22:30:00 EST, Height, 71, kg, 06/24/24 21:15:00 EST, Weight Dosing Discharge Patient, 06/24/24 22:48:00 EST, Home Independently, Constant Indicator ?? 2.??COPD exacerbation??J44.1 Ordered: predniSONE 20 mg oral tablet, 40 mg = 2 tab, Oral, Daily, X 5 days, # 10 tab, 0 Refill(s), 06/29/2521:48:00 EST, Pharmacy: [facility], 155, cm, 05/24/24 22:30:00 EST, Height, 71, kg, 06/24/24 21:15:00 EST, Weight Dosing Discharge Patient, 06/24/24 22:48:00 EST, Home Independently, Constant Indicator ?? 3.??Hypokalemia??E87.6 Ordered: predniSONE 20 mg oral tablet, 40 mg = 2 tab, Oral, Daily, X 5 days, # 10 tab, 0 Refill(s), 06/29/2521:48:00 EST, Pharmacy: [facility], 155, cm, 05/24/24 22:30:00 EST, Height, 71, kg, 06/24/24 21:15:00 EST, Weight Dosing Discharge Patient, 06/24/24 22:48:00 EST, Home Independently, Constant Indicator ?? Patient Education Hypokalemia Chronic Obstructive Pulmonary Disease, Thux-us-Hgrw Follow Up With When Contact Information Dilan Hernandez MD Within 1 to [address] [place] [address]- Additional Instructions: Medication Reconciliation New Prescription [...] quit more than 90 days ago. 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 Home/Environment Lives with Spouse. Nutrition/Health Caffeine intake amount: rarely. Sexual Sexual orientation: Straight or heterosexual. Other contraceptive use: Wycepjcvpfyv-04-83-2012. What is your current gender identity? (Check [...] Lymph Auto?? 06/24/24 21:40?? 23.3?? 04/25/24?? 22.6?? Slope Auto?? 06/24/24 21:40?? 5.5?? 04/25/24?? 5.3?? Eos, [...] Event Display: ED Discharge Information Authored Date: [id number] AUBREE COUCH :1950 Age:74 years Sex:Female Visit [...] MD When:??Within 1 to 2 weeks Where: [address] [place] [address]- Upcoming Scheduled Appointments 2024 10:00 AM EST ?? With: Dilan Hernandez MD Where: [address] [address] Status: Confirmed Thursday 8:30 AM EDT ?? With: Jaimee Cerda NP Where: [facility] [address] [place] [address] Status: Confirmed 2024 1:00 PM EDT ?? With: Dilan Hernandez MD Where: [address] [address] Status: Confirmed You were treated [...] exacerbation Hypokalemia Duration: 5 Days Pickup at [facility] 8281 Unchanged albuterol (Albuterol (Eqv-ProAir HFA) 90 mcg/ [...] (given by mouth) Every day Pharmacy Information [facility] 4156: [address] [place] [address] [phone] Education Materials Hypokalemia Hypokalemia means that the [...] such as yogurt. General instructions ? Take eiqi-tlc-ojtdljk and prescription medicines only as told by [...] provider. Document Revised: 02/06/2022 Document Reviewed: 02/06/2022 [employer] Patient Education ?? 2022 [employer] Chronic Obstructive Pulmonary Disease Chronic obstructive [...] these instructions at home: Medicines ? Take yhbx-lxg-lnznxbq and prescription medicines only as told by [...] yourself as healthy as possible. ? Take swry-abj-ckrjobw and prescription medicines only as told by your doctor. ? If you smoke, stop. Smoking makes the problem worse. This information is not intended to replace advice given to you by your health care provider. Make sure you discuss any questions you have with your health care provider. Document Revised: 04/02/2021 Document Reviewed: 04/02/2021 Elsevier Patient Education ?? 2022 [employer]. Tests Performed Lab Test Name Test Result [...] Lymph Auto 23.3 % 06/24/2024 21:40 EST Slope Auto 5.5 % 06/24/2024 21:40 EST Eos, [...] EST NT-proBNP 69 pg/mL 06/24/2024 21:40 EST Patient/Pivot Maker Signature Patient Name:AUBREE COUCH I have received this information and my questions have been answered. Patient/Pivot Maker Name: Patient/Pivot Maker Signature: Relationship to Patient: Witness Name/Signature: Date: Electronically Signed on: 06/24/2024 22:49 ESTSigned by:MRB Emergency department Note * Yola Altman M: PERFORM Event Display: ED Notes Authored Date: [id number] History and physical note * Event Display: History and Physical Update Authored Date: [id number] Patient Care team information Care Team Personnel Name: Dilan Hernandez MD Position: Physician Member Role: Primary Care Physician Address: [address] [address]- [place] Telecom: Care Team Related Persons Name: LIAM QUIGLEY Name: GRACIELA COUCH Insurance Providers Guarantor name: AUBREE COUCH Health Plan Information #: 1 Payer: [employer] PPO Member Number: [id number] Policy Number: NA Group Number: NA Health Plan Information #: 2 Payer: [employer] PPO Member Number: [id number] Policy Number: NA Group Number: NA Health Plan Information #: 3 Payer: [employer]VANT[employer] PPO Member Number: NA Policy Number: NA Group Number: NA
--- OUTSIDE RECORDS SUMMARY | 2024-07-07 20:03 | XMS_ITS | Continuity of Care Document ---
Author Organization [facility] Address [address] [place] [address] Care Team Providers Care Blind Eyeletter Name Role Phone Dilan Hernandez Primary Care Physician Encounter [facility] Date(s): 08/07/22 - 08/07/22 [facility] [address] [place] [address] Encounter Diagnosis Screening due(Discharge Diagnosis) - 08/07/22 Discharge Disposition: Home or Self Care Attending Physician: Dilan Hernandez MD Admitting Physician: Dilan Hernandez MD Referring Physician: Dilan Hernandez MD Allergies, Adverse Reactions, Alerts No Known Medication Allergies Assessment and Plan Future Appointments Future Scheduled Tests Laboratory* Cortisol [facility] 11/11/21 Immunizations Given and Recorded Vaccine Date Status [...] Mika rded influenza virus vaccine, inactivated 03/25/12 Imka rded influenza virus vaccine, inactivated 03/19/10 Mika [...] Inactivated Influenza 01/20/2019 Administered by NOEMÍ HERNANDEZ, Drop Clipper 04-09-2020 3Result Comment: influenza, trivalent, adjuvanted VIS given: 03-24-2019 VIS published date: Inactivated Influenza 01/20/2019 Administered by SOWMYA MCMILLAN, Drop Clipper 03-24-2019 4Result Comment: influenza, high dose seasonal Administered by: SULTANA 5Result Comment: influenza, high-dose, quadrivalent Patient Declined Last Modified by SOWMYA MCMILLAN [facility] 06-21-2020, 11:26 Medications Albuterol (Eqv-ProAir HFA) 90 mcg/inh inhalation aerosol 2 puffs, Inhale, every 4 hr, # 8.5 g, 6 Refill(s), Pharmacy: [facility] Start Date: 03/26/22 Status: Ordered CeleBREX 200 mg oral capsule 200 mg = 1 cap, Oral, Daily, for pain, # 30 cap, 2 Refill(s), Pharmacy: [facility], 156,cm, 03/27/22 9:33:00 EDT, Height/Length Dosing, 68.04, kg, 03/27/22 9:33:00 EDT, Weight Dosing Start Date: 07/16/22 Status: Ordered Cepacol Extra Strength Sore Throat and Cough Mixed Hassan 7.5 mg-5 mg oral lozenge 1 lozenges, Oral, every 4 hr, PRN as needed for cough, # 18 EA, 0 Refill(s), Pharmacy: [facility], 156, cm, 03/27/22 9:33:00 EDT, Height/Length Dosing, 68.04, kg, 03/27/22 9:33:00 EDT, Weight Dosing Start Date: 04/08/22 Status: Ordered escitalopram 10 mg oral tablet 10 mg = 1 tab, Oral, Daily, TAKE 1 TABLET BY MOUTH ONCE DAILY, # 90 tab, 3 Refill(s), Pharmacy: [place] [address], 156, cm, 03/27/22 9:33:00 EDT, Height/Length Dosing, [...] hr, # 28 tab, 0 Refill(s), Pharmacy: [place] [address], 156, cm,03/27/22 9:33:00 EDT, Height/Length Dosing, 68.04, [...] day, # 60 EA, 6 Refill(s), Pharmacy: [facility] Start Date: 03/26/22 Status: Ordered Trelegy Ellipta 100 mcg-62.5 mcg-25 mcg/inh inhalation powder 1 puffs, Inhale, Daily, at the same time every day, 0 Refill(s) Start Date: 11/11/21 Status: Ordered Problem List Condition Confirmation Course Effective Dates Status H ealth Status Informant Anxiety disorder Confirmed Active Chronic obstructive lung disease Confirmed Active Diarrhea Confirmed 09/06/18 Active Gastroesophageal reflux disease Confirmed Active 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 Lumbosacral radiculopathy Confirmed Active Mixed urinary [...] 5 year call-back 5Sisson 6right, d/t cyst 1230002/1983 with Left salpingectomy Social History Social History Type Response Smoking Status Smoking tobacco use: Current everyday tobacco user;Never; Number used per day: 1.5 PPD; entered on: 03/27/22 Sex Female History and physical note * Event Display: History and Physical Update Authored Date: [id number] Patient Care team information Care Team Personnel Name: Graciela Yoon NP Position: Physician Member Role: Nurse Practitioner Address: Address: [address] [place] [phone] Name: Dilan Hernandez MD Position: Physician Member Role: Primary Care Physician Address: Address: [address] [address]- [place] Care Team Related Persons Name: LIAM QUIGLEY Address: [address], [address] Address: Home [address] [place] [phone] Name: GRACIELA COUCH Address: Home [address] [place] [phone]
--- OUTSIDE RECORDS SUMMARY | 2024-07-07 20:03 | XMS_ITS | Continuity of Care Document ---
Author Organization [facility] Address [address] [place] [address] Care Team Providers Care Buzzsaw Operator Helper Name Role Phone Dilan Hernandez Primary Care Physician Encounter [facility] Date(s): 12/28/23 - 12/28/[address] [address] Encounter Diagnosis Lumbosacral radiculopathy(Discharge Diagnosis) - 12/28/23 Discharge Disposition: Home or Self Care Attending [...] date: Inactivated Influenza 01/20/2019 Administered by NOEMÍ HERNNADEZ, Pusher Operator 04-09-2020 2Result Comment: influenza, trivalent, adjuvanted VIS given: 03-24-2019 VIS published date: Inactivated Influenza 01/20/2019 Administered by SOWMYA MCMILLAN, Pusher Operator 03-24-2019 3Result Comment: influenza, high dose seasonal Administered by: SULTANA 4Result Comment: William 5Result Comment: Moderna bivalent, 6+ months, blue cap 6Result Comment: influenza, high-dose, quadrivalent Patient Declined Last Modified by SOWMYA MCMILLAN Pusher Operator 06-21-2020, 11:26 Medications Albuterol (Eqv-ProAir HFA) 90 mcg/inh inhalation aerosol 2 puffs, Inhale, every 4 hr, # 8.5 g, 6 Refill(s), Pharmacy: [facility], 155, cm, 05/04/23 10:37:00 EST, Height, 81.6, kg, 07/01/23 15:10:00 EST, Weight Dosing Start Date: 07/01/23 Status: Ordered Ativan 0.5 mg oral tablet See Instructions, Take one tablet 30-60 min prior to procedure. DO NOT DRIVE TO AND FROM APPT., # 1tab, 0 Refill(s), Pharmacy: [facility], 153.3, cm, 09/17/23 12:47:00 [...] DAILY, # 90 tab, 3 Refill(s), Pharmacy: [facility], 155, cm, 05/04/23 10:37:00 EST, Height, 81.6, kg, 07/01/23 15:10:00 EST, Weight Dosing Start Date: 07/01/23 Status: Ordered ferrous sulfate 325 mg (65 mg elemental iron) oral delayed release tablet 325 mg = 1 tab, Oral, Daily, # 90 tab, 0 Refill(s), Pharmacy: [facility], 156, cm, 03/27/22 9:33:00 [...] WHEEZING, # 360 EA, 4 Refill(s), Pharmacy: [place] [address], 153.3, cm, 09/17/23 12:47:00 EDT, Height, 81.5, kg, 12/17/23 9:09:00 EDT, Weight Dosing Start Date: 12/17/23 Status: Ordered omeprazole 40 mg oral delayed release capsule 40 mg = 1 cap, Oral, Daily, # 90 cap, 3 Refill(s), Pharmacy: [place] [address], 155, cm, 12/04/22 20:52:00 EDT, Height/Length Dosing, 69.4, kg, 12/04/22 20:52:00 EDT, Weight Dosing Start Date: 01/29/23 Status: Ordered ondansetron 8 mg oral tablet See Instructions, PRN nausea, 1 tab Oral every 6 hours as needed for nausea, # 56 tab, 0 Refill(s),Pharmacy: [place] [address], 153.3, cm, 09/17/23 12:47:00 EDT, Height, 81.65, kg, 09/17/23 12:54:00 EDT, Weight Dosing Start Date: 10/14/23 Status: Ordered Oxygen Therapy Supply, See instructions, # 1 EA, 0 Refill(s) Start Date: 11/19/22 Status: Ordered pramipexole 1 mg oral tablet See Instructions, Take 2 tablets by mouth twice daily, # 120 tab, 6 Refill(s), Pharmacy: [place] [address], 155, cm, 05/04/23 10:37:00 EST, Height, 78.97, kg, 05/14/23 10:34:00 EST, Weight Dosing Start Date: 05/29/23 Status: Ordered predniSONE 10 mg oral tablet See Instructions, 4-7-3-0-0-0-3-3-2-2-1-1, # 42 tab, 0 Refill(s), Pharmacy: [place] [id number], 153.3, cm, 09/17/23 12:47:00 EDT, Height, 81.5, kg, 12/17/23 9:09:00 EDT, Weight Dosing Start Date: 12/17/23 Status: Ordered torsemide 10 mg oral tablet 10 mg = 1 tab, Oral, Daily, # 30 tab, 0 Refill(s), Pharmacy: [facility], 153.3, cm, 09/17/23 12:47:00 EDT, Height, 81.65, kg, 09/17/23 12:54:00 EDT, Weight Dosing Start Date: 09/17/23 Status: Ordered traMADol 50 mg oral tablet 100 mg = 2 tab, Oral, every 8 hr, PRN as needed for pain, # 168 tab, 0 Refill(s), Pharmacy: [facility], 154, cm, 08/21/23 11:26:00 EDT, Height, 82.7, kg, 08/27/23 8:05:00 EDT, Weight Dosing Start Date: 08/31/23 Status: Ordered Vitamin C 500 mg oral tablet 500 mg = 1 tab, Oral, Daily, # 90 tab, 0 Refill(s), Pharmacy: [facility], 156, cm, 03/27/22 9:33:00 EDT, Height/Length Dosing, 68.04, kg, 03/27/22 9:33:00 EDT, Weight Dosing Start Date: 08/15/22 Status: Ordered Wegovy (0.25 mg dose) subcutaneous solution 0.25 mg =, Subcutaneous, every week, in the abdomen, thigh, or upper arm, # 2 mL, 0 Refill(s), Pharmacy: [facility], 153.3, cm, 09/17/23 12:47:00 EDT, Height, 81.65, kg, 09/17/23 12:54:00 EDT, Weight Dosing Start Date: 11/09/23 Stop Date: 12/07/23 Status: Ordered Problem List Condition Confirmation Course [...] Overview: Added automatically from request for surgery [id number] 2Outside Source Comment: Overview: Added automatically from request for surgery [id number] Procedures Procedure Date Related Diagnosis Body Site [...] 5 year call-back 5Sisson 6right, d/t cyst 21464 with Left salpingectomy Social History Social History Type Response Smoking Status Smoking tobacco use: Current everyday tobacco user;Never; Number used per day: 1.5 PPD; entered on: 06/15/23 Sex Female History and physical note * Event Display: History and Physical Update Authored Date: [id number] Patient Care team information Care Team Personnel Name: Dilan Hernandez MD Position: Physician Member Role: Informed Provider Address: Address: [id number] [place] [address] Care Team Related Persons Name: LIAM QUIGLEY Address: [place] [phone] Address: Home [address] [place] [phone] Address: Mailing [address] [place] [phone] Name: GRACIELA COUCH Address: Home [address] [place] [phone]
--- OUTSIDE RECORDS SUMMARY | 2024-07-07 20:03 | XMS_ITS | Continuity of Care Document ---
Author Organization [facility] Address [address] [place] [address] Care Team Providers Care Data Entry Clerk Name Role Phone Dilan Hernandez Primary Care Physician Encounter [facility] [id number] Date(s): 01/03/24 - 01/03/24 [facility] [address] [place] [address] Encounter Diagnosis COPD exacerbation(Discharge Diagnosis) - 01/03/24 Discharge Disposition: Home or Self Care Attending Physician: Sabiha Hugo MD Admitting Physician: Sabiha Hugo MD Allergies, Adverse Reactions, Alerts No Known Medication Allergies Assessment and Plan Extracted from: Title:ED Provider Note Author:Teodoro Hugo MD Date:01/03/24 Assessment/Plan 1.??COPD exacerbation??J44.1 ??A DuoNeb and??Tessalon Perles 200 mg are given here in the emergency department. ??Chest x-ray here is reassuring no consolidation.?? Patient is already on a steroid??taper she would not like to add??any length to her steroid taper. ??Patient would like to continue with nebulizer treatments at home.?? A prescription for Tessalon Perles was sent to the pharmacy. ??If patient worsens will return to the emergency department or see primary care provider. Ordered: Tessalon Perles 100 mg oral capsule, 200 mg = 2 cap, Oral, TID, PRN as needed for cough, X 5 days, # 30 cap, 1 Refill(s), 01/13/24 10:31:00 EDT, Pharmacy: [id number], 153.3, cm, 09/17/23 12:47:00 EDT, Height, 81.5, kg, 12/17/23 9:09:00 EDT, Weight Dosing ?? Patient Education Chronic Obstructive Pulmonary Disease Follow Up With When Contact Information Follow up with primary care provider Within 1 to 2 weeks Additional Instructions: Future Appointments Future Scheduled Tests Laboratory* Thyroid [...] Inactivated Influenza 01/20/2019 Administered by NOEMÍ HERNANDEZ, Spreader Operator Automatic 04-09-2020 2Result Comment: influenza, trivalent, adjuvanted VIS given: 03-24-2019 VIS published date: Inactivated Influenza 01/20/2019 Administered by SOWMYA MCMILLAN, Spreader Operator [employer] 03-24-2019 3Result Comment: influenza, high dose seasonal Administered by: SULTANA 4Result Comment: William 5Result Comment: Moderna bivalent, 6+ months, blue cap 6Result Comment: influenza, high-dose, quadrivalent Patient Declined Last Modified by SOWMYA MCMILLAN, [facility] 06-21-2020, 11:26 Medications Albuterol (Eqv-ProAir HFA) 90 mcg/inh inhalation aerosol 2 puffs, Inhale, every 4 hr, # 8.5 g, 6 Refill(s), Pharmacy: [id number], 155, cm, 05/04/23 10:37:00 EST, Height, 81.6, kg, 07/01/23 15:10:00 EST, Weight Dosing Start Date: 07/01/23 Status: Ordered Ativan 0.5 mg oral tablet See Instructions, Take one tablet 30-60 min prior to procedure. DO NOT DRIVE TO AND FROM APPT., # 1tab, 0 Refill(s), Pharmacy: [facility], 153.3, cm, 09/17/23 12:47:00 [...] DAILY, # 90 tab, 3 Refill(s), Pharmacy: [place] [id number], 155, cm, 05/04/23 10:37:00 EST, Height, 81.6, kg, 07/01/23 15:10:00 EST, Weight Dosing Start Date: 07/01/23 Status: Ordered ferrous sulfate 325 mg (65 mg elemental iron) oral delayed release tablet 325 mg = 1 tab, Oral, Daily, # 90 tab, 0 Refill(s), Pharmacy: [place] [id number], 156, cm, 03/27/22 9:33:00 EDT, Height/Length Dosing, [...] WHEEZING, # 360 EA, 4 Refill(s), Pharmacy: [place] [id number], 153.3, cm, 09/17/23 12:47:00 EDT, Height, 81.5, kg, 12/17/23 9:09:00 EDT, Weight Dosing Start Date: 12/17/23 Status: Ordered omeprazole 40 mg oral delayed release capsule 40 mg = 1 cap, Oral, Daily, # 90 cap, 3 Refill(s), Pharmacy: [id number], 155, cm, 12/04/22 20:52:00 EDT, Height/Length Dosing, 69.4, kg, 12/04/22 20:52:00 EDT, Weight Dosing Start Date: 01/29/23 Status: Ordered ondansetron 8 mg oral tablet See Instructions, PRN nausea, 1 tab Oral every 6 hours as needed for nausea, # 56 tab, 0 Refill(s),Pharmacy: [place] [address], 153.3, cm, 09/17/23 12:47:00 EDT, Height, 81.65, kg, 09/17/23 12:54:00 EDT, Weight Dosing Start Date: 10/14/23 Status: Ordered Oxygen Therapy Supply, See instructions, # 1 EA, 0 Refill(s) Start Date: 11/19/22 Status: Ordered pramipexole 1 mg oral tablet See Instructions, Take 2 tablets by mouth twice daily, # 120 tab, 6 Refill(s), Pharmacy: [facility], 155, cm, 05/04/23 10:37:00 EST, Height, 78.97, kg, 05/14/23 10:34:00 EST, Weight Dosing Start Date: 05/29/23 Status: Ordered predniSONE 10 mg oral tablet See Instructions, 7-4-3-2-2-3-3-3-2-2-1-1, # 42 tab, 0 Refill(s), Pharmacy: [facility], 153.3, cm, 09/17/23 12:47:00 EDT, Height, 81.5, kg, 12/17/23 9:09:00 EDT, Weight Dosing Start Date: 12/17/23 Status: Ordered Tessalon Perles 100 mg oral capsule 200 mg = 2 cap, Oral, TID, PRN as needed for cough, X 5 days, # 30 cap, 1 Refill(s), 01/13/24 9:31:00AM CDT, Pharmacy: [facility], 153.3, cm, 09/17/23 12:47:00 EDT, Height, 81.5, kg, 12/17/23 9:09:00 EDT, Weight Dosing Start Date: 01/03/24 Stop Date: 01/13/24 Status: Ordered torsemide 10 mg oral tablet 10 mg = 1 tab, Oral, Daily, # 30 tab, 0 Refill(s), Pharmacy: [facility], 153.3, cm, 09/17/23 12:47:00 EDT, Height, 81.65, kg, 09/17/23 12:54:00 EDT, Weight Dosing Start Date: 09/17/23 Status: Ordered traMADol 50 mg oral tablet 100 mg = 2 tab, Oral, every 8 hr, PRN as needed for pain, # 168 tab, 0 Refill(s), Pharmacy: [facility], 154, cm, 08/21/23 11:26:00 EDT, Height, 82.7, kg, 08/27/23 8:05:00 EDT, Weight Dosing Start Date: 08/31/23 Status: Ordered Vitamin C 500 mg oral tablet 500 mg = 1 tab, Oral, Daily, # 90 tab, 0 Refill(s), Pharmacy: [facility], 156, cm, 03/27/22 9:33:00 EDT, Height/Length Dosing, 68.04, kg, 03/27/22 9:33:00 EDT, Weight Dosing Start Date: 08/15/22 Status: Ordered Wegovy (0.25 mg dose) subcutaneous solution 0.25 mg =, Subcutaneous, every week, in the abdomen, thigh, or upper arm, # 2 mL, 0 Refill(s), Pharmacy: [facility], 153.3, cm, 09/17/23 12:47:00 [...] Overview: Added automatically from request for surgery [id number] 2Outside Source Comment: Overview: Added automatically from request for surgery [id number] Procedures Procedure Date Related Diagnosis Body Site [...] Left salpingectomy Results Laboratory List Name Date Automated Diff 01/03/24 Basic Metabolic Panel (BMP) 01/03/24 CBC w/ Diff 01/03/24 NT- Pro BNP 01/03/24 SARS-CoV-2 (COVID-19)/Flu/RSV (GeneXpert ) 01/03/24 Strep A (ID NOW) 01/03/24 Troponin-I 01/03/24 Most recent to oldest [Reference Range]: 1 WBC [5.0-10.0 x10^3/mcL] 12.6 x10^3/mcL *HI* (01/03/24 9:00 AM) RBC [4.1-5.3 x10^6/mcL] 4.4 x10^6/mcL (01/03/24 9:00 AM) Neutro Auto [40.0-75.0 %] 66.7 % (01/03/24 9:00 AM) Lymph Auto [20.0-50.0 %] 25.3 % (01/03/24 9:00 AM) Sterling Auto [2.0-15.0 %] 5.4 % (01/03/24 9:00 AM) Basophil Auto [0.0-1.0 %] 0.3 % (01/03/24 9:00 AM) BUN [7-18 mg/dL] 22 mg/dL *HI* (01/03/24 9:00 AM) Glucose Level [74-106 mg/dL] 131 mg/dL *HI* (01/03/24:00 AM) Potassium Level [3.5-5.1 mmol/L] 3.9 mmo l/L (01/03/24 9:00 AM) MCV [80.0-96.0 fL] 89.2 fL (01/03/24:00 AM) MCHC [31.0-35.0 g/dL] 33.1 g/dL (01/03/24 9:00 AM) Troponin-I [0.0-51.4 pg/mL] 8.2 pg/mL (01/03/24:00 AM) Sodium Level [136-145 mmol/L] 138 mmol/L (01/03/24 9:00 AM) Hct [37.0-47.0 %] 39.6 % (01/03/24 9:00 AM) Calcium Level [8.5-10.1 mg/dL] 8.7 mg/dL (01/03/24 9:00 AM) MCH [26.0-32.0 pg] 29.5 pg (01/03/24 9:00 AM) Neutro Absolute 8.4 x10^3/mcL *NA* (01/03/24 9:00 AM) Hgb [12.0-16.0 g/dL] 13.1 g/dL (01/03/24 9:00 AM) Platelets [130-450 x10^3/mcL] 286 x10^3/ mcL (01/03/24 9:00 AM) CO2 [21-32 mmol/L] 29 mmol/L (01/03/24 9:00 AM) eGFR Non-AA [>=60] 65 (01/03/24 9:00 AM) eGFR AA [>=60] 65 (01/03/24 9:00 AM) NT-proBNP [0-125 pg/mL] 52 pg/mL (01/03/24 9:00 AM) Chloride Level [98-107 mmol/L] 100 mmol/ L (01/03/24 9:00 AM) RDW-CV [11.5-14.5 %] 15.9 % *HI* (01/03/24 9:00 AM) Imm Gran Auto [0.0-0.9 %] 0.9 % (01/03/24 9:00 AM) Slide Review Not Indicated (01/03/24 9:00 AM) Strep A -IDNOW [Not Detected] Not Detect ed (01/03/24 9:00 AM) Creatinine Level [0.55-1.02 mg/dL] 0.94 mg/dL (01/03/24 9:00 AM) Employed in healthcare? Unknown *NA* (01/03/24 9:00 AM) Symptomatic as defined by CDC? Unknown *NA* (01/03/24 9:00 AM) Hospitalized due to COVID-19? Unknown *NA* (01/03/24 9:00 AM) In ICU? Unknown *NA* (01/03/24 9:00 AM) Group care resident? Unknown *NA* (01/03/24 9:00 AM) status? Unknown *NA* (01/03/24 9:00 AM) SARS-CoV-2(Covid19)PCR(GXpert COVFLURSV) [Negative] Negative (01/03/24 9:00 AM) Flu A (GXpert COVFLURSV) [Negative] Nega tive (01/03/24 9:00 AM) RSV (GXpert COVFLURSV) [Negative] Negati ve (01/03/24 9:00 AM) Flu B (GXpert COVFLURSV) [Negative] Nega tive (01/03/24 9:00 AM) Eos, Auto [1.0-6.0 %] 1.4 % (01/03/24 9:00 AM) Vital Signs Most recent to oldest [Reference Range]: 1 2 Temperature Temporal Artery [36-38 Deg C ] 36.0 Deg C (01/03/24 8:46 AM) Heart Rate Monitored [60-100 bpm] 80 bpm (01/03/24 10:39 AM) 100 bpm (01/03/24 8:46 AM) Respiratory Rate [12-24 br/min] 22 br/mi n (01/03/24 10:39 AM) 25 br/min *HI* (01/03/24 8:46 AM) Blood Pressure [90-140/60-90 mmHg] 144/8 1mmHg *HI* (01/03/24 10:39 AM) 143/73mmHg *HI* (01/03/24 8:46 AM) Mean Arterial Pressure, Cuff [65-140 mmH g] 96 mmHg (01/03/24 8:46 AM) Weight Estimated 81.65 kg (01/03/24 8:46 AM) Body Mass Index Estimated 34.01 kg/m2 (01/03/24 8:46 AM) Height/Length Estimated 154.94 cm (01/03/24 8:46 AM) Social History Social History Type Response Smoking Status Smoking tobacco use: Current everyday tobacco user;Never; Number used per day: 1.5 PPD; entered on: 06/15/23 Sex Female Hospital Discharge Instructions Patient Education 01/03/2024 09:30:49 Chronic Obstructive Pulmonary Disease Chronic Obstructive Pulmonary Disease Chronic obstructive pulmonary disease (COPD) is a long-term (chronic) condition that affects the lungs. COPD is a general term that can be used to describe many different lung problems that cause lung inflammation and limit airflow, including chronic bronchitis and emphysema. If you have COPD, your lung function will probably never return to normal. In most cases, it gets worse over time. However, there are steps you can take to slow the progression of the disease and improve your quality of life. What are the causes? This condition may be caused by: ??? Smoking. This is the most common cause. ??? Certain genes passed down through families. What increases the risk? The following factors may make you more likely to develop this condition: ??? Being exposed to secondhand smoke from cigarettes, pipes, or cigars. ??? Being exposed to chemicals and other irritants, such as fumes and dust in the work environment. ??? Having chronic lung conditions or infections. What are the signs or symptoms? Symptoms of this condition include: ??? Shortness of breath, especially during physical activity. ??? Chronic cough with a large amount of thick mucus. Sometimes, the cough may not have any mucus (dry cough). ??? Wheezing and rapid breathing. ??? Cruz or bluish discoloration (cyanosis) of the skin, especially in the fingers, toes, or lips. ??? Feeling tired (fatigue). ??? Weight loss. ??? Chest tightness. ??? Frequent infections. ??? Episodes when breathing symptoms become much worse (exacerbations). At the later stages of this disease, you may have swelling in the ankles, feet, or legs. How is this diagnosed? This condition is diagnosed based on: ??? Your medical history. ??? A physical exam. You may also have tests, including: ??? Lung (pulmonary) function tests. This may include a spirometry test, which measures your ability to exhale properly. ??? Chest X-ray. ??? CT scan. ??? Blood tests. How is this treated? This condition may be treated with: ??? Medicines. These may include inhaled rescue medicines to treat acute exacerbations as well as medicines that you take long-term (maintenance medicines) to prevent flare-ups of COPD. ??? Bronchodilators help treat COPD by dilating the airways to allow increased airflow and make your breathing more comfortable. ??? Steroids can reduce airway inflammation and help prevent exacerbations. ??? Smoking cessation. If you smoke, your health care provider may ask you to quit, and may also recommend therapy or replacement products to help you quit. ??? Pulmonary rehabilitation. This may involve working with a team of health care providers and specialists, such as respiratory, occupational, and physical therapists. ??? Exercise and physical activity. These are beneficial for nearly all people with COPD. ??? Nutrition therapy to gain weight, if you are underweight. ??? Oxygen. Supplemental oxygen therapy is only helpful if you have a low oxygen level in your blood (hypoxemia). ??? Lung surgery or transplant. ??? Palliative care. This is to help people with COPD feel comfortable when treatment is no longer working. Follow these instructions at home: Medicines ??? Take jnhx-nal-iljxusi and prescription medicines only as told by your health care provider. This includes inhaled medicines and pills. ??? Talk to your health care provider before taking any cough or allergy medicines. You may need toavoid certain medicines that dry out your airways. Lifestyle ??? If you smoke, the most important thing that you can do is to stop smoking. Continuing to smoke will cause the disease to progress faster. ??? Do not use any products that contain nicotine or tobacco. These products include cigarettes, chewing tobacco, and vaping devices, such as e-cigarettes. If you need help quitting, ask your health care provider. ??? Avoid exposure to things that irritate your lungs, such as smoke, chemicals, and fumes. ??? Stay active, but balance activity with periods of rest. Exercise and physical activity will help you maintain your ability to do things you want to do. ??? Learn and use relaxation techniques to manage stress and to control your breathing. ??? Get the right amount of sleep and get quality sleep. Most adults need 7 or more hours per night. ??? Eat healthy foods. Eating smaller, more frequent meals and resting before meals may help you maintain your strength. Controlled breathing Learn and use controlled breathing techniques as directed by your health care provider. Controlled breathing techniques include: ??? Pursed lip breathing. Start by breathing in (inhaling) through your nose for 1 second. Then, purse your lips as if you were going to whistle and breathe out (exhale) through the pursed lips for 2seconds. ??? Diaphragmatic breathing. Start by putting one hand on your abdomen just above your waist. Inhale slowly through your nose. The hand on your abdomen should move out. Then purse your lips and exhale slowly. You should be able to feel the hand on your abdomen moving in as you exhale. Controlled coughing Learn and use controlled coughing to clear mucus from your lungs. Controlled coughing is a series of short, progressive coughs. The steps of controlled coughing are: 1. Lean your head slightly forward. 2. Breathe in deeply using diaphragmatic breathing. 3. Try to hold your breath for 3 seconds. 4. Keep your mouth slightly open while coughing twice. 5. Spit any mucus out into a tissue. 6. Rest and repeat the steps once or twice as needed. General instructions ??? Make sure you receive all the vaccines that your health care provider recommends, especially the pneumococcal and influenza vaccines. Preventing infection and hospitalization is very important when you have COPD. ??? Drink enough fluid to keep your urine pale yellow, unless you have a medical condition that requires fluid restriction. ??? Use oxygen therapy and pulmonary rehabilitation if told by your health care provider. If you require home oxygen therapy, ask your health care provider whether you should purchase a pulse oximeter to measure your oxygen level at home. ??? Work with your health care provider to develop a COPD action plan. This will help you know whatsteps to take if your condition gets worse. ??? Keep other chronic health conditions under control as told by your health care provider. ??? Avoid extreme temperature and humidity changes. ??? Avoid contact with people who have an illness that spreads from person to person (is contagious), such as viral infections or pneumonia. ??? Keep all follow-up visits. This is important. Contact a health care provider if: ??? You are coughing up more mucus than usual. ??? There is a change in the color or thickness of your mucus. ??? Your breathing is more labored than usual. ??? Your breathing is faster than usual. ??? You have difficulty sleeping. ??? You need to use your rescue medicines or inhalers more often than expected. ??? You have trouble doing routine activities such as getting dressed or walking around the house. Get help right away if: ??? You have shortness of breath while you are resting. ??? You have shortness of breath that prevents you from: ??? Being able to talk. ??? Performing your usual physical activities. ??? You have chest pain lasting longer than 5 minutes. ??? Your skin color is more blue (cyanotic) than usual. ??? You measure low oxygen saturations for longer than 5 minutes with a pulse oximeter. ??? You have a fever. ??? You [...] pulmonary disease (COPD) is a long-term (chronic) condition that affects the lungs. ??? Your lung function will probably never return to normal. In most cases, it gets worse over time. However, there are steps you can take to slow the progression of the disease and improve your quality of life. ??? Treatment for COPD may include taking medicines, quitting smoking, pulmonary rehabilitation, and changes to diet and exercise. As the disease progresses, you may need oxygen therapy, a lung transplant, or palliative care. ??? To help manage your condition, do not smoke, avoid exposure to things that irritate your lungs,stay up to date on all vaccines, and follow your health care provider's instructions for taking medicines. This information is not intended to replace advice given to you by your health care provider. Make sure you discuss any questions you have with your health care provider. Document Revised: 04/02/2021 Document Reviewed: 04/02/2021 [employer] Patient Education ?? 2022 [employer]. Follow Up Care 01/03/2024 08:45:09 With:Follow up with primary care provider Address: When:1 to 2 weeks Respiratory therapy Hospital Progress note * Kacie Dutta RCP: PERFORM Event Display: Respiratory Therapy Progress Note Authored Date: [id number] ??AUBREE COUCH 73 Years MEASURED Body Mass Index: 34.74 kg/m2 (09/17/23 12:47:00) BSA Measured: 1.86 m2 (09/17/23 12:47:00) Height: 153.3 cm (09/17/23 12:47:00) Weight: 81.5 kg (12/17/23 08:56:00) DOSING Height/Length Dosin cm (04/03/23 18:11:16) Weight Dosin.5 kg (12/17/23 08:56:00) Respiratory Shift Summary Breath Sounds: Diminished pre tx/end exp wheeze post tx Shift Treatments: Duoneb x1 Shift Events: Pt a/o comes to the ED today for SOB especially on exertion. Per pt she took her Breztri, Pro air, and half an albuterol tx this AM. Pt recently on prednisone and almost finished her taper. No fevers that she knows of and no other significant illness other than the last few days of increasing SOB. Duoneb administered w/ improvement in aeration. Exp wheezing noted post tx. WCTM. Electronically Signed on 01/03/2024 09:07 EDT Kacie Dutta [facility] Physician Emergency department Note * Sabiha Hugo MD: PERFORM Event Display: ED Note Physician Authored Date: [id number] AUBREE COUCH :1950 Age:73 years Sex:Female Visit Date:01/03/2024 Primary Care Physician: Dilan Hernandez MD Basic Information Time Seen: Sabiha Hugo MD / 01/03/2024 08:54 Chief Complaint pt states that she is hvaing a hard time breathing, SOB for a couple of days. sore throat, weakness, feeling unwell. ??no other cold like symptoms. has COPD, using nebs. History Of Present Illness: Patient reports??she has not felt well over the last few days??to try to get into her primary care office in a??told her they did not have a spot??to be able to see her. ??Patient has had a sore throat.?? Patient has had a cough??and shortness of breath??she coughs up some sputum but??swallows it does not know the color. ??Patient has COPD she usually is on 3 L??nasal cannula??at nighttime and asneeded.?? Patient smokes a pack and a half a day.?? No ear pain no nasal discharge??no chest pain no abdominal pain no nausea no vomiting no new??extremity??edema Review of Systems: see hpi for ros Physical Exam Vitals & Measurements T:??36.0?C ??(Temporal Artery)?? HR:??80??(Monitored)?? RR:??22?? BP:??144/81?? SpO2:??94%?? HT:??154.94??cm?? WT:??81.65??kg??(Estimated)?? BMI:??34.01?? O2 Flow Rate:??3?? O2 Therapy:??Room air?? General: Alert and oriented, well nourished,?No??acute distress Eye: PER?Normal??conjunctiva,??No??scleral icterus HENT: Normocephalic,??nontraumatic??Normal hearing??positive erythema posterior pharynx Lungs: Clear to auscultation after neb except upper lung goncalves slight expiratory wheeze,?Non-labored?? respiration Heart:?Normal?? rate,?Regular??rhythm,?No??murmur,?No??gallop,?No??edema Chest: wall excursion wnl no abnormal movements no obvious deformities Abdomen: Soft, non-tender, non-distended,?Normal?? bowel sounds,?No??masses Musculoskeletal:?Normal?? range of motion and strength,?No??tenderness,?No??swelling Skin: Skin is warm, dry and pink,?No??rashes,?No??lesions Neurologic: Awake, alert and oriented X4 Psychiatric: Cooperative, appropriate mood and affect Medical Decision Making: For MDM please see under assessment and plan Procedure No Qualifying Data Assessment/Plan 1.??COPD exacerbation??J44.1 ??A DuoNeb and??Tessalon Perles 200 mg are given here in the emergency department. ??Chest x-ray here is reassuring no consolidation.?? Patient is already on a steroid??taper she would not like to add??any length to her steroid taper. ??Patient would like to continue with nebulizer treatments at home.?? A prescription for Tessalon Perles was sent to the pharmacy. ??If patient worsens will return to the emergency department or see primary care provider. Ordered: Tessalon Perles 100 mg oral capsule, 200 mg = 2 cap, Oral, TID, PRN as needed for cough, X 5 days, # 30 cap, 1 Refill(s), 01/13/24 10:31:00 EDT, Pharmacy: [id number], 153.3, cm, 09/17/23 12:47:00 EDT, Height, 81.5, kg, 12/17/23 9:09:00 EDT, Weight Dosing ?? Patient Education Chronic Obstructive Pulmonary Disease Follow Up With When Contact Information Follow up with primary care provider Within 1 to 2 weeks Additional Instructions: Medication Reconciliation New Prescription benzonatate (Tessalon Perles 100 mg oral capsule)2 Capsules Oral (given by mouth) 3 times a day as needed as needed for cough for 5 Days. Refills: 1. ?? Unchanged albuterol (Albuterol (Eqv-ProAir HFA) 90 mcg/inh inhalation aerosol)2 Puffs Inhale (breathe in) every 4 hours. Refills: 6. ?? ascorbic acid (Vitamin C 500 mg oral tablet)1 tab Oral (given by mouth) every day. Refills: 0. ?? budesonide/glycopyrrolate/formoterol (Breztri Aerosphere 160 mcg-9 mcg-4.8 mcg/inh inhalation aerosol)2 Puffs Inhale (breathe in) 2 times a day. rinse mouth and throat after use. ?? Durable Medical Equipment for Prescription (COPD [...] by mouth) every day. Refills: 0. ?? [id number] Milligrams Oral (given by mouth) as needed as needed for pain. ?? ipratropium-albuterol (ipratropium-albuterol 0.5 mg-2.5 mg/3 mL inhalation solution)USE 1 AMPULE INNEBULIZER EVERY 4 HOURS NEEDED FOR SHORTNESS OF BREATH FOR WHEEZING. Refills: 4. ?? LORazepam (Ativan 0.5 mg oral tablet)Take one tablet 30-60 min prior to procedure. DO NOT DRIVE TO AND FROM APPT.. Refills: 0. ?? omeprazole (omeprazole 40 mg oral delayed release capsule)1 Capsules Oral (given by mouth) every day. Refills: 3. ?? ondansetron (ondansetron 8 mg oral tablet)1 tab Oral every 6 hours as needed for nausea; as needed nausea. Refills: 0. ?? pramipexole (pramipexole 1 mg oral tablet)Take 2 tablets by mouth twice daily. Refills: 6. ?? predniSONE (predniSONE 10 mg oral tablet)9-2-5-0-0-7-3-3-2-2-1-1. Refills: 0. ?? semaglutide (Wegovy (0.25 mg dose) subcutaneous solution)0.25 Milligrams Subcutaneous (under the skin) every week for 4 weeks. in the abdomen, thigh, or upper arm. Refills: 0. ?? torsemide (torsemide 10 mg oral tablet)1 tab Oral (given by mouth) every day. Refills: 0. ?? traMADol (traMADol 50 mg oral tablet)2 tab Oral (given by mouth) every 8 hours as needed as needed for pain. Refills: 0. Problem List/Past Medical History Ongoing Anxiety disorder [...] w/ left salpingectomy???Tubal ligation Medication Administration Given benzonatate, 200 mg, Oral. For: COPD exacerbation ipratropium-albuterol 0.5 mg-2.5 mg/3 mL inhalation solution, 3 mL, Inhale Allergies No Known Medication Allergies Social History Alcohol Current, Daily- Comments: 1 Kahlua and milk/day Electronic Cigarette/Vaping Electronic Cigarette Use: Former use, quit more than 90 days ago. 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 Home/Environment Lives with Spouse. Nutrition/Health Caffeine intake amount: rarely. Sexual Sexual orientation: Straight or heterosexual. Other contraceptive use: [id number]. What is your current gender identity? (Check [...] MOTHER, at age: Unknown. Cause of : Lab Results CBC and Differential?? LATEST RESULTS?? HISTORICAL RESULTS?? WBC?? 01/03/24 09:00?? 12.6 ??High?? 11/20/23?? 11.4 ??High?? RBC?? 01/03/24 09:00?? 4.4?? 11/20/23?? 4.2?? Hgb?? 01/03/24 09:00?? 13.1?? 11/20/23?? 12.3?? Hct?? 01/03/24 09:00?? 39.6?? 11/20/23?? 37.8?? MCV?? 01/03/24 09:00?? 89.2?? 11/20/23?? 90.6?? MCH?? 01/03/24 09:00?? 29.5?? 11/20/23?? 29.5?? MCHC?? 01/03/24 09:00?? 33.1?? 11/20/23?? 32.5?? RDW-CV?? 01/03/24 09:00?? 15.9 ??High?? 11/20/23?? 14.8 ??High?? Platelets?? 01/03/24 09:00?? 286?? 11/20/23?? 288?? Neutro Auto?? 01/03/24 09:00?? 66.7?? 11/20/23?? 68.2?? Lymph Auto?? 01/03/24 09:00?? 25.3?? 11/20/23?? 22.8?? Sterling Auto?? 01/03/24 09:00?? 5.4?? 11/20/23?? 5.9?? Eos, Auto?? 01/03/24 09:00?? 1.4?? 11/20/23?? 2.3?? Basophil Auto?? 01/03/24 09:00?? 0.3?? 11/20/23?? 0.4?? Imm Gran Auto?? 01/03/24 09:00?? 0.9?? 11/20/23?? 0.4?? Neutro Absolute?? 01/03/24 09:00?? 8.4?? 11/20/23?? 7.8?? Slide Review?? 01/03/24 09:00?? Not Indicated? Routine Chemistry?? LATEST RESULTS?? HISTORICAL RESULTS?? Sodium Level?? 01/03/24 09:00?? 138?? 11/20/23?? 140?? Potassium Level?? 01/03/24 09:00?? 3.9?? 11/20/23?? 4.2?? Chloride Level?? 01/03/24 09:00?? 100?? 11/20/23?? 102?? CO2?? 01/03/24 09:00?? 29?? 11/20/23?? 29?? BUN?? 01/03/24 09:00?? 22 ??High?? 11/20/23?? 18?? Glucose Level?? 01/03/24 09:00?? 131 ??High?? 11/20/23?? 131 ??High?? Creatinine Level?? 01/03/24 09:00?? 0.94?? 11/20/23?? 0.77?? eGFR AA?? 01/03/24 09:00?? 65?? 11/20/23?? 82?? eGFR Non-AA?? 01/03/24 09:00?? 65?? 11/20/23?? 82?? Calcium Level?? 01/03/24 09:00?? 8.7?? 06/14/24?? 9.4? Cardiac Isoenzymes?? LATEST RESULTS?? HISTORICAL RESULTS?? Troponin-I?? 01/03/24 09:00?? 8.2?? 11/20/23?? 6.2?? NT-proBNP?? 01/03/24 09:00?? 52?? 10/30/23?? 64? Infectious Disease?? LATEST RESULTS?? HISTORICAL RESULTS?? Strep A -IDNOW?? 01/03/24 09:00?? Not Detected? 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 01/03/24 09:00?? Unknown?? 08/21/23?? Unknown?? Symptomatic as defined by CDC??? 01/03/24 09:00?? Unknown?? 08/21/23?? Unknown?? Hospitalized due to COVID-19??? 01/03/24 09:00?? Unknown?? 08/21/23?? Unknown?? In ICU??? 01/03/24 09:00?? Unknown?? 08/21/23?? Unknown?? Group care resident??? 01/03/24 09:00?? Unknown?? 08/21/23?? Unknown?? status??? 01/03/24 09:00?? Unknown?? 08/21/23?? Unknown?? SARS-CoV-2(Covid19)PCR(GXpert COVFLURSV)?? 01/03/24 09:00?? Negative?? 08/21/23?? Negative?? Flu A (GXpert COVFLURSV)?? 01/03/24 09:00?? Negative?? 08/21/23?? Negative?? Flu B (GXpert COVFLURSV)?? 01/03/24 09:00?? Negative?? 08/21/23?? Negative?? RSV (GXpert COVFLURSV)?? 01/03/24 09:00?? Negative?? 08/21/23?? Negative? Electronically Signed on 01/03/2024 16:50 EDT Sabiha Hugo MD Emergency department Discharge instructions * Sabiha Hugo MD: PERFORM Event Display: ED Discharge Information Authored Date: [id number] UABREE COUCH :1950 Age:73 years Sex:Female Visit Date:01/03/2024 Primary Care Physician: Dilan Hernandez MD Discharge Instructions We would like to thank you for allowing us to assist you with your healthcare needs. The following includes patient education materials and information regarding your injury/illness. Diagnosis from Today's Visit COPD exacerbation Discharge Vitals Temperature??(Temporal Artery) 96.8 ??F (36.0 ??C) Heart Rate??(Monitored) 100 Respiratory Rate?? 25 Blood Pressure?? 143/73?? SpO2?? 93% Height?? 61.00 in (154.94 cm) Weight??(Estimated) 180.04 lb (81.65 kg) BMI?? 34.01 Allergies No Known Medication Allergies What to Do Next Instructions from Your Care Team Try Tessalon Perles (benzonatate) up to 200 mg 3 times a day??as needed for cough. ??Return to the emergency department if needed. ??Try nicotine gum. You Need to Schedule the Following Appointments Follow Up with??Follow up with primary care provider When:??Within 1 to 2 weeks Upcoming Scheduled Appointments 2023 10:40 AM EDT ?? With: Dilan Hernandez MD Where: [facility] [address] [address] Status: Confirmed Thursday 8:30 AM EDT ?? With: Jaimee Cerda CHIEF ADMINISTRATIVE OFFICER Where: [facility] [address] [place] [address] [place] [address] Status: Confirmed 2024 1:00 PM EDT ?? With: Dilan Hernandez MD Where: [address] [address] Status: Confirmed You were treated [...] Much When Why Instructions Next Dose New benzonatate (Tessalon Perles 100 mg oral capsule) 2 Capsules Oral (given by mouth) 3 times a day as needed for as needed for cough COPD exacerbation Duration: 5 Days Refills: 1 Pickup at [id number] Unchanged albuterol (Albuterol (Eqv-ProAir HFA) 90 mcg/ [...] mouth and throat after use ?? Unchanged Durable Medical Equipment for Prescription [...] (given by mouth) Every day Unchanged ibuprofen 200 Milligrams Oral (given by mouth) As needed for as needed for pain Unchanged ipratropium-albuterol (ipratropium-albuterol 0.5 mg-2.5 mg/ 3 mL inhalation solution) Seeinstructions USE 1 AMPULE IN NEBULIZER EVERY 4 HOURS NEEDED FOR SHORTNESS OF BREATH FOR WHEEZING ?? Unchanged LORazepam (Ativan 0.5 mg oral tablet) See instructions Claustrophobia Take one tablet 30-60 min prior to procedure. DO NOT DRIVE TO AND FROM APPT. ?? Unchanged omeprazole (omeprazole 40 mg oral delayed release capsule) 1 Capsules Oral (given by mouth) Every day Unchanged ondansetron (ondansetron 8 mg oral tablet) See instructions Nausea 1 tab Oral every 6 hours as needed for nausea, As needed for nausea ?? Unchanged pramipexole (pramipexole 1 mg oral tablet) See instructions Take 2 tablets by mouth twice daily ?? Unchanged predniSONE (predniSONE 10 mg oral tablet) See instructions 6-0-4-6-8-4-3-3-2-2-1-1 ?? Unchanged semaglutide (Wegovy (0.25 mg dose) subcutaneous solution) 0.25 Milligrams Subcutaneous (under the skin) Every week Prediabetes Overweight Duration: 4 weeks in the abdomen, thigh, or upper arm ?? Unchanged torsemide (torsemide 10 mg oral tablet) 1 tab Oral (given by mouth) Every day Unchanged traMADol (traMADol 50 mg oral tablet) 2 tab Oral (given by mouth) Every 8 hours as needed for as needed for pain Pharmacy Information [facility] 4156: [address] [phone] Education Materials Chronic Obstructive Pulmonary Disease Chronic obstructive pulmonary disease (COPD) is a long-term (chronic) condition that affects the lungs. COPD is a general term that can be used to describe many different lung problems that cause lung inflammation and limit airflow, including chronic bronchitis and emphysema. If you have COPD, your lung function will probably never return to normal. In most cases, it gets worse over time. However, there are steps you can take to slow the progression of the disease and improve your quality of life. What are the causes? This condition may be caused by: ? Smoking. This is the most common cause. ? Certain genes passed down through families. What increases the risk? The following factors may make you more likely to develop this condition: ? Being exposed to secondhand smoke from cigarettes, pipes, or cigars. ? Being exposed to chemicals and other irritants, such as fumes and dust in the work environment. ? Having chronic lung conditions or infections. What are the signs or symptoms? Symptoms of this condition include: ? Shortness of breath, especially during physical activity. ? Chronic cough with a large amount of thick mucus. Sometimes, the cough may not have any mucus (dry cough). ? Wheezing and rapid breathing. ? Cruz or bluish discoloration (cyanosis) of the skin, especially in the fingers, toes, or lips. ? Feeling tired (fatigue). ? Weight loss. ? Chest tightness. ? Frequent infections. ? Episodes when breathing symptoms become much worse (exacerbations). At the later stages of this disease, you may have swelling in the ankles, feet, or legs. How is this diagnosed? This condition is diagnosed based on: ? Your medical history. ? A physical exam. You may also have tests, including: ? Lung (pulmonary) function tests. This may include a spirometry test, which measures your ability toexhale properly. ? Chest X-ray. ? CT scan. ? Blood tests. How is this treated? This condition may be treated with: ? Medicines. These may include inhaled rescue medicines to treat acute exacerbations as well as medicines that you take long-term (maintenance medicines) to prevent flare-ups of COPD. ? Bronchodilators help treat COPD by dilating the airways to allow increased airflow and make your breathing more comfortable. ? Steroids can reduce airway inflammation and help prevent exacerbations. ? Smoking cessation. If you smoke, your health care provider may ask you to quit, and may also recommend therapy or replacement products to help you quit. ? Pulmonary rehabilitation. This may involve working with a team of health care providers and specialists, such as respiratory, occupational, and physical therapists. ? Exercise and physical activity. These are beneficial for nearly all people with COPD. ? Nutrition therapy to gain weight, if you are underweight. ? Oxygen. Supplemental oxygen therapy is only helpful if you have a low oxygen level in your blood (hypoxemia). ? Lung surgery or transplant. ? Palliative care. This is to help people with COPD feel comfortable when treatment is no longer working. Follow these instructions at home: Medicines ? Take dqss-oec-bdetldp and prescription medicines only as told by your health care provider. This includes inhaled medicines and pills. ? Talk to your health care provider before taking any cough or allergy medicines. You may need to avoid certain medicines that dry out your airways. Lifestyle ? If you smoke, the most important thing that you can do is to stop smoking. Continuing to smoke willcause the disease to progress faster. ? Do not use any products that contain nicotine or tobacco. These products include cigarettes, chewing tobacco, and vaping devices, such as e-cigarettes. If you need help quitting, ask your health careprovider. ? Avoid exposure to things that irritate your lungs, such as smoke, chemicals, and fumes. ? Stay active, but balance activity with periods of rest. Exercise and physical activity will help you maintain your ability to do things you want to do. ? Learn and use relaxation techniques to manage stress and to control your breathing. ? Get the right amount of sleep and get quality sleep. Most adults need 7 or more hours per night. ? Eat healthy foods. Eating smaller, more frequent meals and resting before meals may help you maintain your strength. Controlled breathing Learn and use controlled breathing techniques as directed by your health care provider. Controlled breathing techniques include: ? Pursed lip breathing. Start by breathing in (inhaling) through your nose for 1 second. Then, purse your lips as if you were going to whistle and breathe out (exhale) through the pursed lips for 2 seconds. ? Diaphragmatic breathing. Start by putting one hand on your abdomen just above your waist. Inhale slowly through your nose. The hand on your abdomen should move out. Then purse your lips and exhale slowly. You should be able to feel the hand on your abdomen moving in as you exhale. Controlled coughing Learn and use controlled coughing to clear mucus from your lungs. Controlled coughing is a series of short, progressive coughs. The steps of controlled coughing are: 1.?? Lean your head slightly forward. 2.?? Breathe in deeply using diaphragmatic breathing. 3.?? Try to hold your breath for 3 seconds. 4.?? Keep your mouth slightly open while coughing twice. 5.?? Spit any mucus out into a tissue. 6.?? Rest and repeat the steps once or twice as needed. General instructions ? Make sure you receive all the vaccines that your health care provider recommends, especially the pneumococcal and influenza vaccines. Preventing infection and hospitalization is very important when you have COPD. ? Drink enough fluid to keep your urine pale yellow, unless you have a medical condition that requires fluid restriction. ? Use oxygen therapy and pulmonary rehabilitation if told by your health care provider. If you require home oxygen therapy, ask your health care provider whether you should purchase a pulse oximeter tomeasure your oxygen level at home. ? Work with your health care provider to develop a COPD action plan. This will help you know what steps to take if your condition gets worse. ? Keep other chronic health conditions under control as told by your health care provider. ? Avoid extreme temperature and humidity changes. ? Avoid contact with people who have an illness that spreads from person to person (is contagious), such as viral infections or pneumonia. ? Keep all follow-up visits. This is important. Contact a health care provider if: ? You are coughing up more mucus than usual. ? There is a change in the color or thickness of your mucus. ? Your breathing is more labored than usual. ? Your breathing is faster than usual. ? You have difficulty sleeping. ? You need to use your rescue medicines or inhalers more often than expected. ? You have trouble doing routine activities such as getting dressed or walking around the house. Get help right away if: ? You have shortness of breath while you are resting. ? You have shortness of breath that prevents you from: ? Being able to talk. ? Performing your usual physical activities. ? You have chest pain lasting longer than 5 minutes. ? Your skin color is more blue (cyanotic) than usual. ? You measure low oxygen saturations for longer than 5 minutes with a pulse oximeter. ? You have a fever. ? You [...] pulmonary disease (COPD) is a long-term (chronic) condition that affects the lungs. ? Your lung function will probably never return to normal. In most cases, it gets worse over time. However, there are steps you can take to slow the progression of the disease and improve your quality of life. ? Treatment for COPD may include taking medicines, quitting smoking, pulmonary rehabilitation, and changes to diet and exercise. As the disease progresses, you may need oxygen therapy, a lung transplant, or palliative care. ? To help manage your condition, do not smoke, avoid exposure to things that irritate your lungs, stay up to date on all vaccines, and follow your health care provider's instructions for taking medicines. This information is not intended to replace advice given to you by your health care provider. Make sure you discuss any questions you have with your health care provider. Document Revised: 04/02/2021 Document Reviewed: 04/02/2021 [employer] Patient Education ?? 2022 [employer] Tests Performed Medications and Immunizations Administered Given ipratropium-albuterol 0.5 mg-2.5 mg/3 mL inhalation solution, 3 mL, Inhale Lab Test Name Test Result Date/Time WBC 12.6 x10^3/mcL 01/03/2024 09:00 EDT RBC 4.4 x10^6/mcL 01/03/2024 09:00 EDT Hgb 13.1 g/dL 01/03/2024 09:00 EDT Hct 39.6 % 01/03/2024 09:00 EDT MCV 89.2 fL 01/03/2024 09:00 EDT MCH 29.5 pg 01/03/2024 09:00 EDT MCHC 33.1 g/dL 01/03/2024 09:00 EDT RDW-CV 15.9 % 01/03/2024 09:00 EDT Platelets 286 x10^3/mcL 01/03/2024 09:00 EDT Neutro Auto 66.7 % 01/03/2024 09:00 EDT Lymph Auto 25.3 % 01/03/2024 09:00 EDT Sterling Auto 5.4 % 01/03/2024 09:00 EDT Eos, Auto 1.4 % 01/03/2024 09:00 EDT Basophil Auto 0.3 % 01/03/2024 09:00 EDT Imm Gran Auto 0.9 % 01/03/2024 09:00 EDT Neutro Absolute 8.4 x10^3/mcL 01/03/2024 09:00 EDT Slide Review Not Indicated 01/03/2024 09:00 EDT Sodium Level 138 mmol/L 01/03/2024 09:00 EDT Potassium Level 3.9 mmol/L 01/03/2024 09:00 EDT Chloride Level 100 mmol/L 01/03/2024 09:00 EDT CO2 29 mmol/L 01/03/2024 09:00 EDT BUN 22 mg/dL 01/03/2024 09:00 EDT Glucose Level 131 mg/dL 01/03/2024 09:00 EDT Creatinine Level 0.94 mg/dL 01/03/2024 09:00 EDT eGFR AA 65 01/03/2024 09:00 EDT eGFR Non-AA 65 01/03/2024 09:00 EDT Calcium Level 8.7 mg/dL 01/03/2024 09:00 EDT Troponin-I 8.2 pg/mL 01/03/2024 09:00 EDT NT-proBNP 52 pg/mL 01/03/2024 09:00 EDT Strep A -IDNOW Not Detected 01/03/2024 09:00 EDT Employed in healthcare? Unknown 01/03/2024 09:00 EDT Symptomatic as defined by CDC? Unknown 01/03/2024 09:00 EDT Hospitalized due to COVID-19? Unknown 01/03/2024 09:00 EDT In ICU? Unknown 01/03/2024 09:00 EDT Group care resident? Unknown 01/03/2024 09:00 EDT status? Unknown 01/03/2024 09:00 EDT SARS-CoV-2(Covid19)PCR(GXpert COVFLURSV) NEGATIVE 01/03/2024 09:00 EDT Flu A (GXpert COVFLURSV) NEGATIVE 01/03/2024 09:00 EDT Flu B (GXpert COVFLURSV) Neg-GeneXPert 01/03/2024 09:00 EDT RSV (GXpert COVFLURSV) Neg-GeneXPert 01/03/2024 09:00 EDT Patient/Salesperson Meats Signature Patient Name:AUBREE COUCH I have received this information and my questions have been answered. Patient/Salesperson Meats Name: Patient/Salesperson Meats Signature: Relationship to Patient: Witness Name/Signature: Date: Electronically Signed on: 01/03/2024 10:33 EDTSigned by:AMS History and physical note * Event Display: History and Physical Update Authored Date: [id number] Patient Care team information Care Team Personnel Name: Dilan Hernandez MD Position: Physician Member Role: Informed Provider Address: Address: [address] [address] Care Team Related Persons Name: LIAM QUIGLEY Name: GRACIELA COUCH Address: [address] [id number]
--- OUTSIDE RECORDS SUMMARY | 2024-07-07 20:03 | XMS_ITS | Continuity of Care Document ---
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 Allergies, Adverse Reactions, Alerts No Known Medication [...] Inactivated Influenza 01/20/2019 Administered by NOEMÍ HERNANDEZ, Er Physician 04-09-2020 3Result Comment: influenza, trivalent, adjuvanted VIS given: 03-24-2019 VIS published date: Inactivated Influenza 01/20/2019 Administered by SOWMYA MCMILLAN, [facility] 03-24-2019 4Result Comment: influenza, high dose seasonal Administered by: SULTANA 5Result Comment: influenza, high-dose, quadrivalent Patient Declined Last Modified by SOWMYA MCMILLAN [facility] 06-21-2020, 11:26 Medications Albuterol (Eqv-ProAir HFA) 90 mcg/inh inhalation aerosol 2 puffs, Inhale, every 4 hr, # 8.5 g, 6 Refill(s), Pharmacy: [id number] Start Date: 03/26/22 Status: Ordered CeleBREX 200 mg oral capsule 200 mg = 1 cap, Oral, Daily, for pain, # 30 cap, 2 Refill(s), Pharmacy: [id number], 156,cm, 03/27/22 9:33:00 EDT, Height/Length Dosing, 68.04, kg, 03/27/22 9:33:00 EDT, Weight Dosing Start Date: 07/16/22 Status: Ordered Cepacol Extra Strength Sore Throat and Cough Mixed Hassan 7.5 mg-5 mg oral lozenge 1 lozenges, Oral, every 4 hr, PRN as needed for cough, # 18 EA, 0 Refill(s), Pharmacy: [facility] [...] 0 Refill(s) Start Date: 11/11/21 Status: Ordered ferrous sulfate 325 mg (65 mg elemental iron) oral delayed release tablet 325 mg = 1 tab, Oral, Daily, # 90 tab, 0 Refill(s), Pharmacy: [facility], 156, cm, 03/27/22 9:33:00 EDT, Height/Length Dosing, 68.04, kg, 03/27/22 9:33:00 EDT, Weight Dosing Start Date: 08/15/22 Status: Ordered Mucinex 600 mg oral tablet, extended release 600 mg = 1 tab, Oral, every 12 hr, # 28 tab, 0 Refill(s), Pharmacy: [id number], 156, cm,03/27/22 9:33:00 EDT, Height/Length Dosing, 68.04, kg, 03/27/22 9:33:00 EDT, Weight Dosing Start Date: 04/08/22 Stop Date: 04/22/22 Status: Ordered omeprazole 40 mg oral delayed release capsule 40 mg = 1 cap, Oral, Daily, 0 Refill(s) Start Date: 11/11/21 Status: Ordered pramipexole 1 mg oral tablet See Instructions, 2 tab Oral BID, # 120 tab, 2 Refill(s), Pharmacy: [facility], 156, cm,03/27/22 9:33:00 EDT, Height/Length Dosing, [...] day, # 60 EA, 6 Refill(s), Pharmacy: [id number] Start Date: 03/26/22 Status: Ordered Trelegy Ellipta 100 mcg-62.5 mcg-25 mcg/inh inhalation powder 1 puffs, Inhale, Daily, at the same time every day, 0 Refill(s) Start Date: 11/11/21 Status: Ordered Vitamin C 500 mg oral [...] 5 year call-back 5Sisson 6right, d/t cyst [id number] with Left salpingectomy Results Laboratory List Name Date Ferritin 08/15/22 Most recent to oldest [Reference Range]: 1 Ferritin Level [8-252 ng/mL] 23 ng/mL (08/15/22 9:30 AM) Social History Social History Type Response Smoking Status Smoking tobacco use: Current everyday tobacco user;Never; Number used per day: 1.5 PPD; entered on: 03/27/22 Sex Female History and physical note * Event Display: History and Physical Update Authored Date: [id number] Patient Care team information Care Team Personnel Name: Dilan Hernandez MD Position: Physician Member Role: Primary Care Physician Address: Address: [address] [address]- Care Team Related Persons Name: LIAM QUIGLEY Address: [address] [address] Address: Home [address] [place] [phone] Name: GRACIELA COUCH Address: Home [address] [facility] [id number]
--- OUTSIDE RECORDS SUMMARY | 2024-07-07 20:03 | XMS_ITS | Continuity of Care Document ---
Author Organization [facility] Address [address] [place] [address] Care Team Providers Care Starch Cooker Name Role Phone Dilan Hernandez Primary Care Physician [phone] [facility]counter [facility] Date(s): 07/24/23 - 07/24/23 [facility] [address] [place] [address] Discharge Disposition: Home Allergies, Adverse Reactions, Alerts No Known Medication Allergies Assessment and Plan Future Appointments Future Scheduled Tests Laboratory* Basic Metabolic Panel 09/29/22 Radiology* CT Abdomen and Pelvis w/ Contrast 07/24/23 Immunizations Given and Recorded Vaccine Date Status [...] Inactivated Influenza 01/20/2019 Administered by NOEMÍ HERNANDEZ, Shop Service Technician 04-09-2020 2Result Comment: influenza, trivalent, adjuvanted VIS given: 03-24-2019 VIS published date: Inactivated Influenza 01/20/2019 Administered by SOWMYA MCMILLAN, Shop Service Technician 03-24-2019 3Result Comment: influenza, high dose seasonal Administered by: SULTANA 4Result Comment: William 5Result Comment: Moderna bivalent, 6+ months, blue cap 6Result Comment: influenza, high-dose, quadrivalent Patient Declined Last Modified by SOWMYA MCMILLAN Shop Service Technician 06-21-2020, 11:26 Medications Albuterol (Eqv-ProAir HFA) 90 mcg/inh inhalation aerosol 2 puffs, Inhale, every 4 hr, # 8.5 g, 6 Refill(s), Pharmacy: [facility], 155, cm, 05/04/23 10:37:00 EST, Height, 81.6, kg, 07/01/23 15:10:00 EST, Weight Dosing Start Date: 07/01/23 Status: Ordered amoxicillin 500 mg oral capsule 500 mg = 1 cap, Oral, TID, # 21 cap, 0 Refill(s), Pharmacy: [place] [facility] [address], 155, cm, 05/04/23 10:37:00 EST, Height, 81.51, kg, 07/23/23 10:33:00 EST, Weight Dosing Start Date: 07/23/23 Stop Date: 07/30/23 Status: Ordered apixaban 5 mg oral tablet 5 mg = 1 tab, Oral, BID, # 60 tab, 3 Refill(s), Pharmacy: [facility] [address], 155, cm, 05/04/23 10:37:00 EST, Height, 81.6, kg, 07/01/23 15:10:00 EST, Weight Dosing Start Date: 07/13/23 Status: Ordered cephalexin 250 mg oral capsule 250 mg = 1 cap, Oral, Daily, 0 Refill(s) Start Date: 07/01/23 Status: Ordered COPD J44.1 COPD J44.1, Please include tubing and mouthpiece, Supply, See instructions, # 1 EA, 0 Refill(s) Start Date: 12/15/22 Status: Ordered escitalopram 10 mg oral tablet 10 mg = 1 tab, Oral, Daily, TAKE 1 TABLET BY MOUTH ONCE DAILY, # 90 tab, 3 Refill(s), Pharmacy: [facility] [address], 155, cm, 05/04/23 10:37:00 EST, Height, 81.6, kg, 07/01/23 15:10:00 EST, Weight Dosing Start Date: 07/01/23 Status: Ordered ferrous sulfate 325 mg (65 mg elemental iron) oral delayed release tablet 325 mg = 1 tab, Oral, Daily, # 90 tab, 0 Refill(s), Pharmacy: [id number], 156, cm, 03/27/22 9:33:00 EDT, Height/Length Dosing, [...] WHEEZING, # 90 mL, 4 Refill(s), Pharmacy: [facility] [address], 154, cm, 04/03/23 18:11:00 EDT, Height/Length Dosing, 76.6, kg, 04/15/23 11:00:00 EST, Weight Dosing Start Date: 04/15/23 Status: Ordered omeprazole 40 mg oral delayed release capsule 40 mg = 1 cap, Oral, Daily, # 90 cap, 3 Refill(s), Pharmacy: [facility] [address], 155, cm, 12/04/22 20:52:00 EDT, Height/Length Dosing, 69.4, kg, 12/04/22 20:52:00 EDT, Weight Dosing Start Date: 01/29/23 Status: Ordered Oxygen Therapy Supply, See instructions, # 1 EA, 0 Refill(s) Start Date: 11/19/22 Status: Ordered pramipexole 1 mg oral tablet See Instructions, Take 2 tablets by mouth twice daily, # 120 tab, 6 Refill(s), Pharmacy: [facility] [address], 155, cm, 05/04/23 10:37:00 EST, Height, 78.97, kg, 05/14/23 10:34:00 EST, Weight Dosing Start Date: 05/29/23 Status: Ordered traMADol 50 mg oral tablet 50 mg = 1 tab, Oral, every 4 hr, PRN as needed for pain, # 28 tab, 0 Refill(s), Pharmacy: [facility] [address], 155, cm, 05/04/23 10:37:00 EST, Height, 81.6, kg, 07/01/23 15:10:00 EST, Weight Dosing Start Date: 07/13/23 Status: Ordered Trelegy Ellipta 100 mcg-62.5 mcg-25 mcg/inh inhalation powder See Instructions, INHALE 1 PUFF ONCE DAILY AT THE SAME TIME EACH DAY, # 60 EA, 4 Refill(s), Pharmacy: [facility] [address], 155, cm, 12/04/22 20:52:00 EDT, Height/Length Dosing, 69.4, kg, 12/04/22 20:52:00 EDT, Weight Dosing Start Date: 03/17/23 Status: Ordered Vitamin C 500 mg oral tablet 500 mg = 1 tab, Oral, Daily, # 90 tab, 0 Refill(s), Pharmacy: [facility], 156, cm, 03/27/22 9:33:00 EDT, [...] Overview: Added automatically from request for surgery [id number] 2Outside Source Comment: Overview: Added automatically from request for surgery [id number] Procedures Procedure Date Related Diagnosis Body Site [...] 5 year call-back 5Sisson 6right, d/t cyst [id number]/1983 with Left salpingectomy Social History Social History Type Response Smoking Status Smoking tobacco use: Current everyday tobacco user;Never; Number used per day: 1.5 PPD; entered on: 06/15/23 Sex Female History and physical note * Event Display: History and Physical Update Authored Date: [id number] Patient Care team information Care Team Personnel Name: Dilan Hernandez MD Position: Physician Member Role: Informed Provider Address: Address: [place] [address]- Care Team Related Persons Name: LIAM QUIGLEY Address: [address] [address] Address: Home [address] [place] [phone] Address: Mailing [address] [place] [phone] Name: GRACIELA COUCH Address: Home [address] [place] [address] [phone]
--- OUTSIDE RECORDS SUMMARY | 2024-07-07 20:03 | XMS_ITS | Continuity of Care Document ---
Author Organization [facility] Address [address] [place] [address] Care Team Providers Care Nat Instructor Name Role Phone Dilan Hernandez Primary Care Physician [phone] Encounter [facility] [id number] Date(s): 08/24/23 - 08/24/23 [facility] [address] [place] [address] Discharge Disposition: Home or Self Care Attending Physician: Shannon Adkins MD Admitting Physician: Shannon Adkins MD Referring Physician: Shannon Adkins MD Allergies, Adverse Reactions, Alerts No Known Medication Allergies Assessment and Plan Future Appointments Immunizations Given and Recorded Vaccine Date Status [...] Inactivated Influenza 01/20/2019 Administered by NOEMÍ HERNANDEZ, Manual Lathe Machinist 04-09-2020 2Result Comment: influenza, trivalent, adjuvanted VIS given: 03-24-2019 VIS published date: Inactivated Influenza 01/20/2019 Administered by SOWMYA MCMILLAN, Manual Lathe Machinist 03-24-2019 3Result Comment: influenza, high dose seasonal Administered by: SULTANA 4Result Comment: William 5Result Comment: Moderna bivalent, 6+ months, blue cap 6Result Comment: influenza, high-dose, quadrivalent Patient Declined Last Modified by SOWMYA MCMILLAN, Manual Lathe Machinist 06-21-2020, 11:26 Medications Albuterol (Eqv-ProAir HFA) 90 mcg/inh inhalation aerosol 2 puffs, Inhale, every 4 hr, # 8.5 g, 6 Refill(s), Pharmacy: [facility], 155, cm, 05/04/23 10:37:00 EST, Height, 81.6, kg, 07/01/23 15:10:00 EST, Weight Dosing Start Date: 07/01/23 Status: Ordered amoxicillin 500 mg oral capsule 500 mg = 1 cap, Oral, TID, # 21 cap, 0 Refill(s), Pharmacy: [facility], 155, cm, 05/04/23 10:37:00 EST, Height, 81.51, kg, 07/23/23 10:33:00 EST, Weight Dosing Start Date: 07/23/23 Stop Date: 07/30/23 Status: Ordered apixaban 5 mg oral tablet 5 mg = 1 tab, Oral, BID, # 60 tab, 3 Refill(s), Pharmacy: [facility] [id number], 155, cm, 05/04/23 10:37:00 EST, Height, 81.6, kg, 07/01/23 15:10:00 EST, Weight Dosing Start Date: 07/13/23 Status: Ordered cephalexin 250 mg oral capsule 250 mg = 1 cap, Oral, Daily, 0 Refill(s) Start Date: 07/01/23 Status: Ordered COPD J44.1 COPD J44.1, Please include tubing and mouthpiece, Supply, See instructions, # 1 EA, 0 Refill(s) Start Date: 12/15/22 Status: Ordered doxycycline hyclate 100 mg oral capsule 100 mg = 1 cap, Oral, BID, X 7 days, # 14 cap, 0 Refill(s), 08/28/23 2:07:00 PM CDT, Pharmacy: [facility] [address], 154, cm, 08/21/23 11:26:00 EDT, Height, 81.51, kg, 07/23/23 10:33:00 EST, Weight Dosing Start Date: 08/21/23 Stop Date: 08/28/23 Status: Ordered escitalopram 10 mg oral tablet 10 mg = 1 tab, Oral, Daily, TAKE 1 TABLET BY MOUTH ONCE DAILY, # 90 tab, 3 Refill(s), Pharmacy: [facility]156, 155, cm, 05/04/23 10:37:00 EST, Height, 81.6, kg, 07/01/23 15:10:00 EST, Weight Dosing Start Date: 07/01/23 Status: Ordered ferrous sulfate 325 mg (65 mg elemental iron) oral delayed release tablet 325 mg = 1 tab, Oral, Daily, # 90 tab, 0 Refill(s), Pharmacy: [facility], 156, cm, 03/27/22 9:33:00 EDT, Height/Length [...] WHEEZING, # 90 mL, 4 Refill(s), Pharmacy: [facility], 155, cm, 05/04/23 10:37:00 EST, Height, 81.51, kg, 07/23/23 10:33:00 EST, Weight Dosing Start Date: 08/03/23 Status: Ordered ipratropium-albuterol 0.5 mg-2.5 mg/3 mL inhalation solution 3 mL, Nebulized Inhalation, QID, # 60 EA, 0 Refill(s), 09/01/23 2:08:00 PM CDT, Pharmacy: [facility], 154, cm, 08/21/23 11:26:00 EDT, Height, 81.51, kg, 07/23/23 10:33:00 EST, Weight Dosing Start Date: 08/21/23 Stop Date: 09/01/23 Status: Ordered omeprazole 40 mg oral delayed release capsule 40 mg = 1 cap, Oral, Daily, # 90 cap, 3 Refill(s), Pharmacy: [facility], 155, cm, 12/04/22 20:52:00 EDT, Height/Length Dosing, 69.4, kg, 12/04/22 20:52:00 EDT, Weight Dosing Start Date: 01/29/23 Status: Ordered Oxygen Therapy Supply, See instructions, # 1 EA, 0 Refill(s) Start Date: 11/19/22 Status: Ordered pramipexole 1 mg oral tablet See Instructions, Take 2 tablets by mouth twice daily, # 120 tab, 6 Refill(s), Pharmacy: [facility], 155, cm, 05/04/23 10:37:00 EST, Height, 78.97, kg, 05/14/23 10:34:00 EST, Weight Dosing Start Date: 05/29/23 Status: Ordered predniSONE 20 mg oral tablet 40 mg = 2 tab, Oral, Daily, X 5 days, # 10 tab, 0 Refill(s), 08/26/23 2:08:00 PM CDT, Pharmacy: [facility], 154, cm, 08/21/23 11:26:00 EDT, Height, 81.51, kg, 07/23/23 10:33:00 EST, Weight Dosing Start Date: 08/21/23 Stop Date: 08/26/23 Status: Ordered traMADol 50 mg oral tablet 50 mg = 1 tab, Oral, every 4 hr, PRN as needed for pain, # 28 tab, 0 Refill(s), Pharmacy: [facility], 155, cm, 05/04/23 10:37:00 EST, Height, 81.6, kg, 07/01/23 15:10:00 EST, Weight Dosing Start Date: 07/13/23 Status: Ordered Trelegy Ellipta 100 mcg-62.5 mcg-25 mcg/inh inhalation powder See Instructions, INHALE 1 PUFF ONCE DAILY AT THE SAME TIME EACH DAY, # 60 EA, 4 Refill(s), Pharmacy: [facility], 155, cm, 12/04/22 20:52:00 EDT, Height/Length Dosing, 69.4, kg, 12/04/22 20:52:00 EDT, Weight Dosing Start Date: 03/17/23 Status: Ordered Vitamin C 500 mg oral tablet 500 mg = 1 tab, Oral, Daily, # 90 tab, 0 Refill(s), Pharmacy: [facility], 156, cm, 03/27/22 9:33:00 EDT, Height/Length Dosing, [...] Overview: Added automatically from request for surgery [id number] 2Outside Source Comment: Overview: Added automatically from request for surgery [id number] Procedures Procedure Date Related Diagnosis Body Site [...] 5 year call-back 5Sisson 6right, d/t cyst [id number]/1983 with Left salpingectomy Results Laboratory List Name Date Basic Metabolic Panel (BMP) 08/24/23 Most recent to oldest [Reference Range]: 1 BUN [7-18 mg/dL] 16 mg/dL (08/24/23 9:57 AM) Glucose Level [74-106 mg/dL] 120 mg/dL *HI* (08/24/23 9:57 AM) Potassium Level [3.5-5.1 mmol/L] 3.9 mmo l/L (08/24/23 9:57 AM) Sodium Level [136-145 mmol/L] 135 mmol/L *LOW* (08/24/23 9:57 AM) Calcium Level [8.5-10.1 mg/dL] 8.9 mg/dL (08/24/23 9:57 AM) CO2 [21-32 mmol/L] 28 mmol/L (08/24/23 9:57 AM) eGFR Non-AA [>=60] 73 (08/24/23 9:57 AM) eGFR AA [>=60] 73 (08/24/23 9:57 AM) Chloride Level [98-107 mmol/L] 99 mmol/L (08/24/23 9:57 AM) Creatinine Level [0.55-1.02 mg/dL] 0.85 mg/dL (08/24/23 9:57 AM) Social History Social History Type Response Smoking Status Smoking tobacco use: Current everyday tobacco user;Never; Number used per day: 1.5 PPD; entered on: 06/15/23 Sex Female History and physical note * Event Display: History and Physical Update Authored Date: [id number] Patient Care team information Care Team Personnel Name: Dilan Hernandez MD Position: Physician Member Role: Informed Provider Address: Address: [address] Care Team Related Persons Name: LIAM QUIGLEY Address: [address] [address] Address: Home [address] [place] [phone] Address: Mailing [address] [place] [phone] Name: GRACIELA COUCH Address: Home [address] [place] [address] [phone]
--- OUTSIDE RECORDS SUMMARY | 2024-07-07 20:03 | XMS_ITS | Continuity of Care Document ---
Author Organization [facility] Address [address] [place] [address] Care Team Providers Care Operating Room Tech Name Role Phone Dilan Hernandez Primary Care Physician [facility]counter [facility] Date(s): 07/23/23 - 07/23/23 [facility] [address] [place] [address] Discharge Disposition: Home Allergies, Adverse Reactions, Alerts No Known Medication Allergies Assessment and Plan Future Appointments Future Scheduled Tests Laboratory* HCV RNA Detect Quant [facility] 07/23/23 * Basic Metabolic Panel 09/29/22 * CBC w/ Diff 07/23/23 * Comprehensive Metabolic Panel 07/23/23 * Thyroid Stimulating Hormone 07/23/23 * Hemoglobin A1c 09/29/22 Radiology* CT Abdomen and Pelvis w/ [...] Inactivated Influenza 01/20/2019 Administered by NOEMÍ HERNANDEZ, Circuit Design Engineer 04-09-2020 2Result Comment: influenza, trivalent, adjuvanted VIS given: 03-24-2019 VIS published date: Inactivated Influenza 01/20/2019 Administered by SOWMYA MCMILLAN, Circuit Design Engineer 03-24-2019 3Result Comment: influenza, high dose seasonal Administered by: SULTANA 4Result Comment: William 5Result Comment: Moderna bivalent, 6+ months, blue cap 6Result Comment: influenza, high-dose, quadrivalent Patient Declined Last Modified by SOWMYA MCMILLAN Circuit Design Engineer 06-21-2020, 11:26 Medications Albuterol (Eqv-ProAir HFA) 90 mcg/inh inhalation aerosol 2 puffs, Inhale, every 4 hr, # 8.5 g, 6 Refill(s), Pharmacy: [facility], 155, cm, 05/04/23 10:37:00 EST, Height, 81.6, kg, 07/01/23 15:10:00 EST, Weight Dosing Start Date: 07/01/23 Status: Ordered amoxicillin 500 mg oral capsule 500 mg = 1 cap, Oral, TID, # 21 cap, 0 Refill(s), Pharmacy: [facility], 155, cm, 05/04/23 10:37:00 EST, Height, 81.51, kg, 07/23/23 10:33:00 EST, Weight Dosing Start Date: 07/23/23 Stop Date: 07/30/23 Status: Ordered apixaban 5 mg oral tablet 5 mg = 1 tab, Oral, BID, # 60 tab, 3 Refill(s), Pharmacy: [facility]156, 155, cm, 05/04/23 10:37:00 EST, Height, [...] tab, 3 Refill(s), Pharmacy: [facility]156, 155, cm, 05/04/23 10:37:00 EST, Height, 81.6, kg, 07/01/23 15:10:00 EST, Weight Dosing Start Date: 07/01/23 Status: Ordered ferrous sulfate 325 mg (65 mg elemental iron) oral delayed release tablet 325 mg = 1 tab, Oral, Daily, # 90 tab, 0 Refill(s), Pharmacy: [facility], 156, cm, 03/27/22 9:33:00 EDT, [...] WHEEZING, # 90 mL, 4 Refill(s), Pharmacy: [facility] [address], 154, cm, 04/03/23 18:11:00 EDT, Height/Length Dosing, 76.6, kg, 04/15/23 11:00:00 EST, Weight Dosing Start Date: 04/15/23 Status: Ordered omeprazole 40 mg oral delayed release capsule 40 mg = 1 cap, Oral, Daily, # 90 cap, 3 Refill(s), Pharmacy: [facility] [place] [address], 155, cm, 12/04/22 20:52:00 EDT, Height/Length Dosing, 69.4, kg, 12/04/22 20:52:00 EDT, Weight Dosing Start Date: 01/29/23 Status: Ordered Oxygen Therapy Supply, See instructions, # 1 EA, 0 Refill(s) Start Date: 11/19/22 Status: Ordered pramipexole 1 mg oral tablet See Instructions, Take 2 tablets by mouth twice daily, # 120 tab, 6 Refill(s), Pharmacy: [facility] [address], 155, cm, 05/04/23 10:37:00 EST, Height, 78.97, kg, 05/14/23 10:34:00 EST, Weight Dosing Start Date: 05/29/23 Status: Ordered traMADol 50 mg oral tablet 50 mg = 1 tab, Oral, every 4 hr, PRN as needed for pain, # 28 tab, 0 Refill(s), Pharmacy: [facility] [address], 155, cm, 05/04/23 10:37:00 EST, Height, 81.6, kg, 07/01/23 15:10:00 EST, Weight Dosing Start Date: 07/13/23 Status: Ordered Trelegy Ellipta 100 mcg-62.5 mcg-25 mcg/inh inhalation powder See Instructions, INHALE 1 PUFF ONCE DAILY AT THE SAME TIME EACH DAY, # 60 EA, 4 Refill(s), Pharmacy: [facility] [address], 155, cm, 12/04/22 20:52:00 EDT, Height/Length Dosing, 69.4, kg, 12/04/22 20:52:00 EDT, Weight Dosing Start Date: 03/17/23 Status: Ordered Vitamin C 500 mg oral tablet 500 mg = 1 tab, Oral, Daily, # 90 tab, 0 Refill(s), Pharmacy: [facility], 156, cm, 03/27/22 9:33:00 EDT, [...] Overview: Added automatically from request for surgery [id number] 2Outside Source Comment: Overview: Added automatically from request for surgery [id number] Procedures Procedure Date Related Diagnosis Body Site [...] 5 year call-back 5Sisson 6right, d/t cyst 05342/1982 with Left salpingectomy Social History Social History Type Response Smoking Status Smoking tobacco use: Current everyday tobacco user;Never; Number used per day: 1.5 PPD; entered on: 06/15/23 Sex Female History and physical note * Event Display: History and Physical Update Authored Date: [id number] Patient Care team information Care Team Personnel Name: Dilan Hernandez MD Position: Physician Member Role: Informed Provider Address: Address: [address] Care Team Related Persons Name: LIAM QUIGLEY Address: [address] [address] Address: Home [address] [place] [phone] Address: Mailing [address] [place] [address] [phone] Name: GRACIELA COUCH Address: [address] [phone]
--- OUTSIDE RECORDS SUMMARY | 2024-07-07 20:03 | XMS_ITS | Continuity of Care Document ---
Author Organization [facility] Address [address] [place] [address] Care Team Providers Care Research Lab Assistant Name Role Phone Dilan Hernandez Primary Care Physician [phone] Encounter [facility] Date(s): 07/14/22 - 07/14/22 [facility] [address] [place] [address] Discharge Disposition: Home or Self Care Attending Physician: Dilan Hernanedz MD Admitting Physician: Dilan Hernandez MD Referring Physician: Dilan Hernandez MD Allergies, Adverse Reactions, Alerts No Known Medication Allergies Assessment and Plan Future Appointments Future Scheduled Tests Laboratory* Cortisol [facility] 11/11/21 Radiology* MG Mammo Screening Bilateral w/ Dav 07/14/22 Immunizations Given and Recorded Vaccine Date Status [...] Inactivated Influenza 01/20/2019 Administered by NOEMÍ HERNANDEZ, Prop And Effects Designer 04-09-2020 3Result Comment: influenza, trivalent, adjuvanted VIS given: 03-24-2019 VIS published date: Inactivated Influenza 01/20/2019 Administered by SOWMYA MCMILLAN, Prop And Effects Designer 03-24-2019 4Result Comment: influenza, high dose seasonal Administered by: SULTANA 5Result Comment: influenza, high-dose, quadrivalent Patient Declined Last Modified by SOWMYA MCMILLAN Prop And Effects Designer 06-21-2020, 11:26 Medications Albuterol (Eqv-ProAir HFA) 90 mcg/inh inhalation aerosol 2 puffs, Inhale, every 4 hr, # 8.5 g, 6 Refill(s), Pharmacy: [facility] Start Date: 03/26/22 Status: Ordered CeleBREX 200 mg oral capsule 200 mg = 1 cap, Oral, Daily, for pain, # 30 cap, 1 Refill(s), Pharmacy: [facility], 156,cm, 03/27/22 9:33:00 EDT, Height/Length Dosing, 68.04, kg, 03/27/22 9:33:00 EDT, Weight Dosing Start Date: 04/09/22 Status: Ordered Cepacol Extra Strength Sore Throat and Cough Mixed Hassan 7.5 mg-5 mg oral lozenge 1 lozenges, Oral, every 4 hr, PRN as needed for cough, # 18 EA, 0 Refill(s), Pharmacy: [facility], 156, cm, 03/27/22 9:33:00 EDT, Height/Length Dosing, 68.04, kg, 03/27/22 9:33:00 EDT, Weight Dosing Start Date: 04/08/22 Status: Ordered escitalopram 10 mg oral tablet 10 mg = 1 tab, Oral, Daily, TAKE 1 TABLET BY MOUTH ONCE DAILY, # 90 tab, 3 Refill(s), Pharmacy: [facility] [address], 156, cm, 03/27/22 9:33:00 EDT, Height/Length Dosing, [...] hr, # 28 tab, 0 Refill(s), Pharmacy: [facility] [address], 156, cm,03/27/22 9:33:00 EDT, Height/Length Dosing, 68.04, [...] day, # 60 EA, 6 Refill(s), Pharmacy: [facility] [address] Start Date: 03/26/22 Status: Ordered Trelegy Ellipta [...] 5 year call-back 5Sisson 6right, d/t cyst [id number]/1983 with Left salpingectomy Results Laboratory List Name Date Lipid Panel 07/14/22 Most recent to oldest [Reference Range]: 1 Cholesterol Total [50-200 mg/dL] 163 mg/ dL (07/14/22 11:21 AM) LDL [0-130 mg/dL] 78 mg/dL (07/14/22 11:21 AM) HDL [40-60 mg/dL] 76 mg/dL *HI* (07/14/22 11:21 AM) Triglycerides [0-150 mg/dL] 43 mg/dL (07/14/22 11:21 AM) Social History Social History Type Response Smoking Status Smoking tobacco use: Current everyday tobacco user;Never; Number used per day: 1.5 PPD; entered on: 03/27/22 Sex Female Patient Care team information Personnel Name: Dilan Hernandez MD Address: Address: [address]
--- OUTSIDE RECORDS SUMMARY | 2024-07-07 20:03 | XMS_ITS | Continuity of Care Document ---
Author Organization [facility] Address [address] [place] [address] Care Team Providers Care Clam Shucker Name Role Phone Dilan Hernandez Primary Care Physician Encounter [facility] Date(s): 05/14/23 - 05/14/23 [facility] [address] [place] [address] Discharge Disposition: Home Allergies, Adverse Reactions, Alerts No Known Medication Allergies Assessment and Plan Future Appointments Future Scheduled Tests Laboratory* Basic Metabolic Panel 09/29/22 * Hemoglobin A1c 09/29/22 Radiology* CT Urogram 05/14/23 Immunizations Given and Recorded [...] Inactivated Influenza 01/20/2019 Administered by NOEMÍ HERNANDEZ, Trim Attacher 04-09-2020 2Result Comment: influenza, trivalent, adjuvanted VIS given: 03-24-2019 VIS published date: Inactivated Influenza 01/20/2019 Administered by SOWMYA MCMILLAN, Trim Attacher 03-24-2019 3Result Comment: influenza, high dose seasonal Administered by: SULTANA 4Result Comment: William 5Result Comment: influenza, high-dose, quadrivalent Patient Declined Last Modified by SOWMYA MCMILLAN, [facility] 06-21-2020, 11:26 Medications Albuterol (Eqv-ProAir HFA) 90 mcg/inh inhalation aerosol 2 puffs, Inhale, every 4 hr, # 8.5 g, 6 Refill(s), Pharmacy: [id number], 156, cm, 03/27/22 9:33:00 [...] DAILY, # 90 tab, 3 Refill(s), Pharmacy: [place] [address], 156, cm, 03/27/22 9:33:00 EDT, Height/Length Dosing, 68.04, kg, 03/27/22 9:33:00EDT, Weight Dosing Start Date: 05/12/22 Status: Ordered ferrous sulfate 325 mg (65 mg elemental iron) oral delayed release tablet 325 mg = 1 tab, Oral, Daily, # 90 tab, 0 Refill(s), Pharmacy: [place] [address], 156, cm, 03/27/22 9:33:00 EDT, Height/Length Dosing, 68.04, kg, 03/27/22 9:33:00 EDT, Weight Dosing Start Date: 08/15/22 Status: Ordered ipratropium-albuterol 0.5 mg-2.5 mg/3 mL inhalation solution See Instructions, USE 1 AMPULE IN NEBULIZER EVERY 4 HOURS NEEDED FOR SHORTNESS OF BREATH OR WHEEZING, # 90 mL, 4 Refill(s), Pharmacy: [place] [address], 154, cm, 04/03/23 18:11:00 EDT, Height/Length Dosing, 76.6, kg, 04/15/23 11:00:00 EST, Weight Dosing Start Date: 04/15/23 Status: Ordered Lyrica 25 mg oral capsule 25 mg = 1 cap, Oral, TID, # 90 cap, 3 Refill(s), Pharmacy: [place] [address], 155, cm, 05/04/2310:37:00 EST, Height, 78.97, kg, 05/14/23 10:34:00 EST, Weight Dosing Start Date: 05/14/23 Status: Ordered omeprazole 40 mg oral delayed release capsule 40 mg = 1 cap, Oral, Daily, # 90 cap, 3 Refill(s), Pharmacy: [place] [address], 155, cm, 12/04/22 20:52:00 EDT, Height/Length Dosing, 69.4, kg, 12/04/22 20:52:00 EDT, Weight Dosing Start Date: 01/29/23 Status: Ordered Oxygen Therapy Supply, See instructions, # 1 EA, 0 Refill(s) Start Date: 11/19/22 Status: Ordered Ozempic 2 mg/3 mL (0.25 mg or 0.5 mg dose) subcutaneous solution 0.25 mg =, Subcutaneous, every week, rotate injection sites, # 1 EA, 0 Refill(s), Pharmacy: [place] [id number], 154, cm, 04/03/23 18:11:00 EDT, Height/Length Dosing, 76.35, kg, 04/23/23 14:48:00 EST, Weight Dosing Start Date: 04/27/23 Status: Ordered pramipexole 1 mg oral tablet See Instructions, 0 Refill(s) Start Date: 04/15/23 Status: Ordered pramipexole 1 mg oral tablet See Instructions, Take 2 tablets by mouth twice daily, # 120 tab, 0 Refill(s), Pharmacy: [facility], 154, cm, 04/03/23 18:11:00 EDT, Height/Length Dosing, 76.35, kg, 04/23/23 14:48:00 EST,Weight Dosing Start Date: 04/27/23 Status: Ordered Trelegy Ellipta 100 mcg-62.5 mcg-25 mcg/inh inhalation powder See Instructions, INHALE 1 PUFF ONCE DAILY AT THE SAME TIME EACH DAY, # 60 EA, 4 Refill(s), Pharmacy: [facility], 155, cm, 12/04/22 20:52:00 EDT, Height/Length Dosing, 69.4, kg, 12/04/22 20:52:00 EDT, Weight Dosing Start Date: 03/17/23 Status: Ordered Vitamin C 500 mg oral tablet 500 mg = 1 tab, Oral, Daily, # 90 tab, 0 Refill(s), Pharmacy: [facility], 156, cm, 03/27/22 9:33:00 [...] Overview: Added automatically from request for surgery [id number] 2Outside Source Comment: Overview: Added automatically from request for surgery [id number] Procedures Procedure Date Related Diagnosis Body Site [...] 5 year call-back 5Sisson 6right, d/t cyst [id number] with Left salpingectomy Social History Social History Type Response Smoking Status Smoking tobacco use: Current everyday tobacco user;Never; Number used per day: 1.5 PPD; entered on: 04/02/23 Sex Female History and physical note * Event Display: History and Physical Update Authored Date: [id number] Patient Care team information Care Team Personnel Name: Dilan Hernandez MD Position: Physician Member Role: Informed Provider Address: Address: [address] [address]- Care Team Related Persons Name: LIAM QUIGLEY Address: [address], [address] Address: Home [address] [place] [phone] Name: LIAM QUIGLEY Address: Home [address] [place] [phone] Name: GRACIELA COUCH Address: Home [address] [place] [phone]
--- OUTSIDE RECORDS SUMMARY | 2024-07-07 20:03 | XMS_ITS | Continuity of Care Document ---
Author Organization [facility] Address [address] [place] [address] Care Team Providers Care Brick Shader Name Role Phone Dilan Hernandez Primary Care Physician Encounter [facility] Date(s): 06/16/23 - 06/16/23 [facility] [address] [place] [address] Discharge Disposition: Home Allergies, Adverse Reactions, Alerts [...] Inactivated Influenza 01/20/2019 Administered by NOEMÍ HERNANDEZ, Keyseating Machine Set Up Operator 04-09-2020 2Result Comment: influenza, trivalent, adjuvanted VIS given: 03-24-2019 VIS published date: Inactivated Influenza 01/20/2019 Administered by SOWMYA MCMILLAN, [facility] 03-24-2019 3Result Comment: influenza, high dose seasonal Administered by: SULTANA 4Result Comment: William 5Result Comment: influenza, high-dose, quadrivalent Patient Declined Last Modified by SOWMYA MCMILLAN [facility] 06-21-2020, 11:26 Medications Albuterol (Eqv-ProAir [...] daily, # 70 tab, 0 Refill(s), Pharmacy: [facility], 155, cm, 05/04/23 10:37:00 EST, Height, 78.97,kg, [...] 90 tab, 3 Refill(s), Pharmacy: [place] [address], 156, cm, 03/27/22 9:33:00 EDT, Height/Length Dosing, 68.04, kg, 03/27/22 9:33:00EDT, Weight Dosing Start Date: 05/12/22 Status: Ordered ferrous sulfate 325 mg (65 mg elemental iron) oral delayed release tablet 325 mg = 1 tab, Oral, Daily, # 90 tab, 0 Refill(s), Pharmacy: [place] [address], 156, cm, 03/27/22 9:33:00 EDT, Height/Length Dosing, 68.04, kg, 03/27/22 9:33:00 EDT, Weight Dosing Start Date: 08/15/22 Status: Ordered ipratropium-albuterol 0.5 mg-2.5 mg/3 mL inhalation solution See Instructions, USE 1 AMPULE IN NEBULIZER EVERY 4 HOURS NEEDED FOR SHORTNESS OF BREATH OR WHEEZING, # 90 mL, 4 Refill(s), Pharmacy: [facility], 154, cm, 04/03/23 18:11:00 EDT, Height/Length Dosing, 76.6, kg, 04/15/23 11:00:00 EST, Weight Dosing Start Date: 04/15/23 Status: Ordered Lyrica 25 mg oral capsule 25 mg = 1 cap, Oral, TID, # 90 cap, 3 Refill(s), Pharmacy: [facility]156, 155, cm, 05/04/2310:37:00 EST, Height, 78.97, [...] 1 EA, 0 Refill(s), Pharmacy: [place] [address], 154, cm, 04/03/23 18:11:00 EDT, Height/Length Dosing, 76.35, kg, 04/23/23 14:48:00 EST, Weight Dosing Start Date: 04/27/23 Status: Ordered pramipexole 1 mg oral tablet See Instructions, Take 2 tablets by mouth twice daily, # 120 tab, 6 Refill(s), Pharmacy: [place] [address], 155, cm, 05/04/23 10:37:00 EST, Height, 78.97, [...] Overview: Added automatically from request for surgery [id number] 2Outside Source Comment: Overview: Added automatically from request for surgery [id number] Procedures Procedure Date Related Diagnosis Body Site [...] 5 year call-back 5Sisson 6right, d/t cyst 31499 with Left salpingectomy Social History Social History Type Response Smoking Status Smoking tobacco use: Current everyday tobacco user;Never; Number used per day: 1.5 PPD; entered on: 06/15/23 Sex Female History and physical note * Event Display: History and Physical Update Authored Date: [id number] Patient Care team information Care Team Personnel Name: Dilan Hernandez MD Position: Physician Member Role: Informed Provider Address: Address: [address] Care Team Related Persons Name: LIAM QUIGLEY Address: [address] [address] Address: Home [address] [place] [phone] Address: Mailing [address] [place] [phone] Name: GRACIELA COUCH Address: [address] [phone]
--- OUTSIDE RECORDS SUMMARY | 2024-07-07 20:03 | XMS_ITS | Continuity of Care Document ---
Author Organization [facility] Address [address] [place] [address] Care Team Providers Care Title Closer Name Role Phone Dilan Hernandez Primary Care Physician [phone] Encounter [facility] [id number] Date(s): 10/30/23 - 10/30/23 [facility] [address] [place] [address] Encounter Diagnosis COPD with exacerbation(Discharge Diagnosis) - 10/30/23 Hypoxia(Discharge Diagnosis) - 10/30/23 Thrush(Discharge Diagnosis) - 10/30/23 Discharge Disposition: Home or Self Care Attending Physician: Yumiko Ghosh MD Admitting Physician: Yumiko Ghosh MD Allergies, Adverse Reactions, Alerts No Known Medication Allergies Assessment and Plan Extracted from: Title:Clinical Document Author:Cheryl Patel te:10/30/23 Diagnosis: 1. COPD with exac erbation Comment: Diagnosis: 2. Hypoxia Comment: Diagnosis: 3. Thrush Comment: Diagnosis: SOB - Shortness of breath Comment: Extracted from: Title:ED Provider Note Author:Teodoro Hugo MD Date:10/30/23 Assessment/Plan 1.??COPD with exacerbation??J44.1 ??Will try the prednisone taper for??6 tabs 4 tabs 3 tabs 2 tabs??each for 3 days.?? As patient without any??fever or chills and this may be more environmental would not start her on antibiotics at this point. ??Patient is aware if she worsens to return to the emergency department or see primary care provider. Ordered: predniSONE 10 mg oral tablet, See Instruction, Oral, Daily, 6 tabs daily x3 days, 4 tabs daily x3 days, 3 tabs daily x3 days, 2 tab daily x3 days, # 45 tab, 0 Refill(s), Pharmacy: [facility], 153.3, cm, 09/17/23 12:47:00 EDT, Height, 81.65, kg, 09/17/23 12:54:00 EDT, We... Discharge Patient, 10/30/23 12:33:00 EDT, Home Independently, Constant Indicator ?? 2.??Hypoxia??R09.02 ??Respiratory therapy did a walk test and found that patient needed 3 L??at rest as well as 3 L at sleep.?? Will try to arrange for her to have this. Ordered: predniSONE 10 mg oral tablet, See Instruction, Oral, Daily, 6 tabs daily x3 days, 4 tabs daily x3 days, 3 tabs daily x3 days, 2 tab daily x3 days, # 45 tab, 0 Refill(s), Pharmacy: [facility], 153.3, cm, 09/17/23 12:47:00 EDT, Height, 81.65, kg, 09/17/23 12:54:00 EDT, We... Discharge Patient, 10/30/23 12:33:00 EDT, Home Independently, Constant Indicator ?? 3.??Thrush??B37.0 ??Patient with erythema posterior pharynx consistent with slight thrush we will place patient on nystatin swish and swallow or swish and spit??4 times a day for the next 7 days.?? Prescription is sent to the pharmacy. ?? Orders: nystatin 100,000 units/mL oral suspension, 500,000 units = 5 mL, Oral, QID, X 7 days, # 140 mL, 0 Refill(s), 11/06/23 10:47:00 EDT, Pharmacy: [facility], 153.3, cm, 09/17/23 12:47:00 EDT, Height, 81.65, kg, 09/17/23 12:54:00 EDT, Weight Dosing CV EKG ED, 10/30/23 10:45:00 EDT, Stat, Reason: Chest Pain, Stop date and time 10/30/23 10:45:00 EDT, ORD_SET_REQ_DT_RANGE, [facility] Internal Person Id Patient Education Chronic Obstructive Pulmonary Disease Exacerbation Follow Up With When Contact Information Follow up with primary care provider Within 1 to 2 weeks Additional Instructions: Future Appointments Future Scheduled Tests Laboratory* Thyroid Stimulating Hormone 08/26/23 * Drug Screen Urine 09/28/23 Functional Status 10/30/23 Other exposure to Infectious Disease Non e [...] Mika rded influenza virus vaccine, inactivated 03/08/10 Miak rded influenza virus vaccine, inactivated 05/21/09 Mika [...] Inactivated Influenza 01/20/2019 Administered by NOEMÍ HERNANDEZ, Feeder Switchboard Operator 04-09-2020 2Result Comment: influenza, trivalent, adjuvanted VIS given: 03-24-2019 VIS published date: Inactivated Influenza 01/20/2019 Administered by SOWMYA MCMILLAN, Feeder Switchboard Operator 03-24-2019 3Result Comment: influenza, high dose seasonal Administered by: SULTANA 4Result Comment: William 5Result Comment: Moderna bivalent, 6+ months, blue cap 6Result Comment: influenza, high-dose, quadrivalent Patient Declined Last Modified by SOWMYA MCMILLAN, Feeder Switchboard Operator 06-21-2020, 11:26 Medications Albuterol (Eqv-ProAir HFA) 90 mcg/inh inhalation aerosol 2 puffs, Inhale, every 4 hr, # 8.5 g, 6 Refill(s), Pharmacy: [facility], 155, cm, 05/04/23 10:37:00 EST, Height, 81.6, kg, 07/01/23 15:10:00 EST, Weight Dosing Start Date: 07/01/23 Status: Ordered apixaban 5 mg oral tablet 5 mg = 1 tab, Oral, BID, # 60 tab, 3 Refill(s), Pharmacy: [facility], 155, cm, 05/04/23 10:37:00 [...] DAILY, # 90 tab, 3 Refill(s), Pharmacy: [place] [address], 155, cm, 05/04/23 10:37:00 EST, Height, 81.6, kg, 07/01/23 15:10:00 EST, Weight Dosing Start Date: 07/01/23 Status: Ordered ferrous sulfate 325 mg (65 mg elemental iron) oral delayed release tablet 325 mg = 1 tab, Oral, Daily, # 90 tab, 0 Refill(s), Pharmacy: [place] [address], 156, cm, 03/27/22 9:33:00 EDT, Height/Length Dosing, [...] WHEEZING, # 90 mL, 4 Refill(s), Pharmacy: [place] [address], 155, cm, 05/04/23 10:37:00 EST, Height, 81.51, kg, 07/23/23 10:33:00 EST, Weight Dosing Start Date: 08/03/23 Status: Ordered Medrol Dosepak 4 mg oral tablet 1 packets, Oral, Daily, as directed on package labeling, # 21 tab, 0 Refill(s), Pharmacy: [place] [address], 153.3, cm, 09/17/23 12:47:00 EDT, Height, 81.65, kg, 09/17/23 12:54:00 EDT, Weight Dosing Start Date: 09/28/23 Stop Date: 10/04/23 Status: Ordered nystatin 100,000 units/mL oral suspension 500,000 units = 5 mL, Oral, QID, X 7 days, # 140 mL, 0 Refill(s), 11/06/23 9:47:00 AM CDT, Pharmacy:[facility], 153.3, cm, 09/17/23 12:47:00 EDT, Height, 81.65, kg, 09/17/23 12:54:00 EDT, Weight Dosing Start Date: 10/30/23 Stop Date: 11/06/23 Status: Ordered omeprazole 40 mg oral delayed release capsule 40 mg = 1 cap, Oral, Daily, # 90 cap, 3 Refill(s), Pharmacy: [facility], 155, cm, 12/04/22 20:52:00 EDT, Height/Length Dosing, 69.4, kg, 12/04/22 20:52:00 EDT, Weight Dosing Start Date: 01/29/23 Status: Ordered ondansetron 8 mg oral tablet See Instructions, PRN nausea, 1 tab Oral every 6 hours as needed for nausea, # 56 tab, 0 Refill(s),Pharmacy: [facility], 153.3, cm, 09/17/23 12:47:00 EDT, Height, 81.65, kg, 09/17/23 12:54:00 EDT, Weight Dosing Start Date: 10/14/23 Status: Ordered Oxygen Therapy Supply, See instructions, # 1 EA, 0 Refill(s) Start Date: 11/19/22 Status: Ordered Ozempic 2 mg/3 mL (0.25 mg or 0.5 mg dose) subcutaneous solution 0.25 mg =, Subcutaneous, every week, rotate injection sites, # 3 mL, 0 Refill(s), Pharmacy: [place] [address], 153.3, cm, 09/17/23 12:47:00 EDT, Height, 81.65, kg, 09/17/23 12:54:00 EDT, Weight Dosing Start Date: 10/21/23 Status: Ordered pramipexole 1 mg oral tablet See Instructions, Take 2 tablets by mouth twice daily, # 120 tab, 6 Refill(s), Pharmacy: [facility], 155, cm, 05/04/23 10:37:00 EST, Height, 78.97, kg, 05/14/23 10:34:00 EST, Weight Dosing Start Date: 05/29/23 Status: Ordered predniSONE 10 mg oral tablet See Instruction, Oral, Daily, 6 tabs daily x3 days, 4 tabs daily x3 days, 3 tabs daily x3 days, 2 tab daily x3 days, # 45 tab, 0 Refill(s), Pharmacy: [facility], 153.3, cm, 09/17/23 12:47:00 EDT, Height, 81.65, kg, 09/17/23 12:54:00 EDT, Weight Dosing Start Date: 10/30/23 Status: Ordered torsemide 10 mg oral tablet 10 mg = 1 tab, Oral, Daily, # 30 tab, 0 Refill(s), Pharmacy: [facility], 153.3, cm, 09/17/23 12:47:00 EDT, Height, 81.65, kg, 09/17/23 12:54:00 EDT, Weight Dosing Start Date: 09/17/23 Status: Ordered traMADol 50 mg oral tablet 100 mg = 2 tab, Oral, every 8 hr, PRN as needed for pain, # 168 tab, 0 Refill(s), Pharmacy: [place] [address], 154, cm, 08/21/23 11:26:00 EDT, Height, 82.7, kg, 08/27/23 8:05:00 EDT, Weight Dosing Start Date: 08/31/23 Status: Ordered Vitamin C 500 mg oral tablet 500 mg = 1 tab, Oral, Daily, # 90 tab, 0 Refill(s), Pharmacy: [facility], 156, cm, 03/27/22 [...] Overview: Added automatically from request for surgery [id number] 2Outside Source Comment: Overview: Added automatically from request for surgery [id number] Procedures Procedure Date Related Diagnosis Body Site [...] 5 year call-back 5Sisson 6right, d/t cyst [id number] with Left salpingectomy Results Laboratory List Name Date CBC w/ Diff 10/30/23 Comprehensive Metabolic Panel (CMP) 10/29 NT- Pro BNP 10/30/23 Troponin-I 10/30/23 Automated Diff 10/30/23 Most recent to oldest [Reference Range]: 1 WBC [5.0-10.0 x10^3/mcL] 9.1 x10^3/mcL (10/30/23 10:53 AM) RBC [4.1-5.3 x10^6/mcL] 4.2 x10^6/mcL (10/30/23 10:53 AM) Neutro Auto [40.0-75.0 %] 74.4 % (10/30/23 10:53 AM) Lymph Auto [20.0-50.0 %] 17.5 % *LOW* (10/30/23 10:53 AM) [place] Auto [2.0-15.0 %] 5.0 % (10/30/23 10:53 AM) Basophil Auto [0.0-1.0 %] 0.2 % (10/30/23 10:53 AM) BUN [7-18 mg/dL] 15 mg/dL (10/30/23 10:53 AM) Glucose Level [74-106 mg/dL] 121 mg/dL *HI* (10/30/23 10:53 AM) Potassium Level [3.5-5.1 mmol/L] 4.0 mmo l/L (10/30/23 10:53 AM) MCV [80.0-96.0 fL] 92.0 fL (10/30/23 10:53 AM) AST [15-37 unit/L] 21 unit/L (10/30/23 10:53 AM) ALT [14-59 unit/L] 31 unit/L (10/30/23 10:53 AM) MCHC [31.0-35.0 g/dL] 32.3 g/dL (10/30/23 10:53 AM) Troponin-I [0.0-51.4 pg/mL] <5.0 pg/mL (10/30/23 10:53 AM) Sodium Level [136-145 mmol/L] 138 mmol/L (10/30/23 10:53 AM) Hct [37.0-47.0 %] 39.0 % (10/30/23 10:53 AM) Calcium Level [8.5-10.1 mg/dL] 8.9 mg/dL (10/30/23 10:53 AM) Albumin Level [3.4-5.0 g/dL] 3.2 g/dL *LOW* (10/30/23 10:53 AM) Protein Total [6.4-8.2 g/dL] 6.9 g/dL (10/30/23 10:53 AM) MCH [26.0-32.0 pg] 29.7 pg (10/30/23 10:53 AM) Neutro Absolute 6.8 x10^3/mcL *NA* (10/30/23 10:53 AM) Bilirubin Total [0.2-1.0 mg/dL] 0.3 mg/d L (10/30/23 10:53 AM) Hgb [12.0-16.0 g/dL] 12.6 g/dL (10/30/23 10:53 AM) Alk Phos [46-146 unit/L] 112 unit/L (10/30/23 10:53 AM) Platelets [130-450 x10^3/mcL] 327 x10^3/ mcL (10/30/23 10:53 AM) CO2 [21-32 mmol/L] 28 mmol/L (10/30/23 10:53 AM) eGFR Non-AA [>=60] 72 (10/30/23 10:53 AM) eGFR AA [>=60] 72 (10/30/23 10:53 AM) NT-proBNP [0-125 pg/mL] 64 pg/mL (10/30/23 10:53 AM) Chloride Level [98-107 mmol/L] 104 mmol/ L (10/30/23 10:53 AM) RDW-CV [11.5-14.5 %] 14.8 % *HI* (10/30/23 10:53 AM) Imm Gran Auto [0.0-0.9 %] 0.3 % (10/30/23 10:53 AM) Creatinine Level [0.55-1.02 mg/dL] 0.86 mg/dL (10/30/23 10:53 AM) Eos, Auto [1.0-6.0 %] 2.6 % (10/30/23 10:53 AM) Vital Signs Most recent to oldest [Reference Range]: 1 2 Temperature Temporal Artery [36-38 Deg C ] 35.8 Deg C *LOW* (10/30/23 9:56 AM) Peripheral Pulse Rate [60-100 bpm] 82 bp m (10/30/23 12:47 PM) Heart Rate Monitored [60-100 bpm] 83 bpm (10/30/23 9:56 AM) Respiratory Rate [12-24 br/min] 20 br/mi n (10/30/23 12:47 PM) 16 br/min (10/30/23 9:56 AM) Blood Pressure [90-140/60-90 mmHg] 125/6 8mmHg (10/30/23 9:56 AM) Mean Arterial Pressure, Cuff [65-140 mmH g] 87 mmHg (10/30/23 9:56 AM) Weight Estimated 80.29 kg (10/30/23 9:56 AM) Body Mass Index Estimated 34.16 kg/m2 (10/30/23 9:56 AM) Height/Length Estimated 153.3 cm (10/30/23 9:56 AM) Social History Social History Type Response Smoking Status Smoking tobacco use: Current everyday tobacco user;Never; Number used per day: 1.5 PPD; entered on: 06/15/23 Sex Female Hospital Discharge Instructions Patient Education 10/30/2023 11:35:09 Chronic Obstructive Pulmonary Disease Exacerbation Chronic Obstructive Pulmonary Disease Exacerbation Chronic obstructive pulmonary disease (COPD) is a long-term (chronic) condition that affects the lungs. COPD is a general term that can be used to describe many different lung problems that cause lung inflammation and limit airflow, including chronic bronchitis and emphysema. COPD exacerbations areepisodes when breathing symptoms flare up, become much worse, and require extra treatment. COPD exacerbations are usually caused by infections. Without treatment, COPD exacerbations can be severe and even life threatening. Frequent COPD exacerbations can cause further damage to the lungs. What are the causes? This condition may be caused by: ??? Respiratory infections, including viral and bacterial infections. ??? Exposure to smoke. ??? Exposure to air pollution, chemical fumes, or dust. ??? Things that can cause an allergic reaction (allergens). ??? Not taking your usual COPD medicines as directed. ??? Underlying medical problems, such as congestive heart failure or infections not involving the lungs. In many cases, the cause of this condition is not known. What increases the risk? The following factors may make you more likely to develop this condition: ??? Smoking cigarettes. ??? Being an older adult. ??? Having frequent prior COPD exacerbations. What are the signs or symptoms? Symptoms of this condition include: ??? Increased coughing. ??? Increased production of mucus from your lungs. ??? Increased wheezing and shortness of breath. ??? Rapid or labored breathing. ??? Chest tightness. ??? Less energy than usual. ??? Sleep disruption from symptoms. ??? Confusion ??? Increased sleepiness. Often, these symptoms happen or get worse even with the use of medicines. How is this diagnosed? This condition is diagnosed based on: ??? Your medical history. ??? A physical exam. You may also have tests, including: ??? A chest X-ray. ??? Blood tests. ??? Lung (pulmonary) function tests. How is this treated? Treatment for this condition depends on the severity and cause of the symptoms. You may need to be admitted to a hospital for treatment. Some of the treatments commonly used to treat COPD exacerbations are: ??? Antibiotic medicines. These may be used for severe exacerbations caused by a lung infection, such as pneumonia. ??? Bronchodilators. These are inhaled medicines that expand the air passages and allow increased airflow. They may make your breathing more comfortable. ??? Steroid medicines. These act to reduce inflammation in the airways. They may be given with an inhaler, taken by mouth, or given through an IV tube inserted into one of your veins. ??? Supplemental oxygen therapy. ??? Airway clearing techniques, such as noninvasive ventilation (NIV) and positive expiratory pressure (PEP). These provide respiratory support through a mask or other noninvasive device. An example of this would be using a continuous positive airway pressure (CPAP) machine to improve delivery of oxygen into your lungs. Follow these instructions at home: Medicines ??? Take [id number] and prescription medicines only as told by your health care provider. ??? It is important to use correct technique with inhaled medicines. ??? If you were prescribed an antibiotic medicine or oral steroid, take it as told by your health care provider. Do not stop taking the medicine even if you start to feel better. Lifestyle ??? Do not use any products that contain nicotine or tobacco. These products include cigarettes, chewing tobacco, and vaping devices, such as e-cigarettes. If you need help quitting, ask your health care provider. ??? Eat a healthy diet. ??? Exercise regularly. ??? Get enough sleep. Most adults need 7 or more hours per night. ??? Avoid exposure to all substances that irritate the airway, especially tobacco smoke. ??? Regularly wash your hands with soap and water for at least 20 seconds. If soap and water are not available, use hand table saw operator. This may help prevent you from getting infections. ??? During flu season, avoid enclosed spaces that are crowded with people. General instructions ??? Drink enough fluid to keep your urine pale yellow, unless you have a medical condition that requires fluid restriction. ??? Use a cool mist vaporizer. This humidifies the air and makes it easier for you to clear your chest when you cough. ??? If you have a home nebulizer and oxygen, continue to use them as told by your health care provider. ??? Keep all follow-up visits. This is important. How is this prevented? Stay up-to-date on pneumococcal and flu (influenza) vaccines. A flu shot is recommended every year to help prevent exacerbations. ??? Quitting smoking is very important in preventing COPD from getting worse and in preventing exacerbations from happening as often. ??? Follow all instructions for pulmonary rehabilitation after a recent exacerbation. This can helpprevent future exacerbations. ??? Work with your health care provider to develop and follow an action plan. This tells you what steps to take when you experience certain symptoms. Contact a health care provider if: ??? You have a worsening of your regular COPD symptoms. Get help right away if: ??? You have worsening shortness of breath, even when resting. ??? You have trouble talking. ??? You have severe chest pain. ??? You cough up blood. ??? You have a fever. ??? You have weakness, vomit repeatedly, or faint. ??? You feel confused. ??? You are not able to sleep because of your symptoms. ??? You have trouble doing daily activities. These symptoms may represent a serious problem that is an emergency. Do not wait to see if the symptoms will go away. Get medical help right away. Call your local emergency services (911 in the [place] Do not drive yourself to the hospital. Summary ??? COPD exacerbations are episodes when breathing symptoms become much worse and require extra treatment above your normal treatment. ??? Exacerbations can be severe and even life threatening. Frequent COPD exacerbations can cause further damage to your lungs. ??? COPD exacerbations are usually triggered by infections such as the flu, colds, and even pneumonia. ??? Treatment for this condition depends on the severity and cause of the symptoms. You may need debbie admitted to a hospital for treatment. ??? Quitting smoking is very important to prevent COPD from getting worse and to prevent exacerbations from happening as often. This information is not intended to replace advice given to you by your health care provider. Make sure you discuss any questions you have with your health care provider. Document Revised: 04/02/2021 Document Reviewed: 04/02/2021 [employer] Patient Education ?? 2022 [email or web address]. Follow Up Care 10/30/2023 09:50:34 With:Follow up with primary care provider Address: When:1 to 2 weeks manager resource Note * Miladys Nguyễn: PERFORM Event Display: Case Management Note Authored Date: [id number] Pt sent in from PCP office for a walk test for 02. She has a concentrator at home for qhs. Walk test completed. New order for 3L continuous given to pt. Portable 02 tank provided by [employer]. [employer] are d/c home with tank. RX and walk test sent to [employer] via [facility]. Teaching of new tank provided to pt by myself. Pt confirms she understands and was d/c home. She isaware if there is any copay that [employer] will contact her. Physician Emergency department Note * Sabiha Hugo MD: PERFORM Event Display: ED Note Physician Authored Date: [id number] AUBREE COUCH :1950 Age:73 years Sex:Female Visit Date:10/30/2023 Primary Care Physician: Dilan Hernandez MD Basic Information Time Seen: Sabiha Hugo MD / 10/30/2023 10:29 Chief Complaint pt states that since this morning has been SOB, has COPD. pt states that her pulse ox stated 78 this morning, SOB with any excertion. no CP. History Of Present Illness: Patient reports that she has been short of breath??over the last 3 weeks that has come and gone??she says it has been??slightly worse over the last 3 days.?? Patient has COPD she smokes she has no interest in quitting smoking she??states she plans to cut back.?? No ear nose or throat pain. ??Patient reports she supposed to wear her oxygen at nighttime??she has home oxygen for this she did not have her home oxygen on this morning??when she checked her O2??and it was said 78%.?? Patient reports??she does not have sleep apnea but cannot say what it is that she has that makes her oxygen go down at night??she stated she was tired??when I walked in the exam room??O2 sat was 87% and quickly recover ed??when she??woke.?? No fevers no chills no ear nose or throat pain??patient reports that her throat does get sore when she does not??rinse well??after??her inhaler??patient denies any chest pain she does state that she has some swelling of her ankles??and usually has some sock line edema however no socks on??currently.?? Patient reports her lungs??are not good she sees a mortgage consultant in [facility]??she wants to be as active as she can. ??Patient reports her primary care office is arranging for a walk test??to see if she can qualify for a more portable oxygen source??when she is walking around. Review of Systems: see hpi for ros Physical Exam Vitals & Measurements T:??35.8?C ??(Temporal Artery)?? HR:??83??(Monitored)?? RR:??16?? BP:??125/68?? SpO2:??93%?? HT:??153.3??cm?? WT:??80.29??kg??(Estimated)?? BMI:??34.16?? O2 Flow Rate:??3?? O2 Therapy:??Nasal cannula?? General: Alert and oriented, well nourished,?No??acute distress Eye: PER?Normal??conjunctiva,??No??scleral icterus HENT: Normocephalic,??nontraumatic??Normal hearing??positive erythema slight posterior pharynx??appears like slight yeast??type??infection??nose swollen??erythematous turbinates??consistent with smoking Lungs: Clear to auscultation??except for??wheezing right base,?Non-labored?? respiration Heart:?Normal?? rate,?Regular??rhythm,?No??murmur,?No??gallop,?No??edema Chest: wall excursion wnl no abnormal movements no obvious deformities Musculoskeletal:?Normal?? range of motion and strength,?No??tenderness,??positive??trace??swelling Skin: Skin is warm, dry and pink,?No??rashes,?No??lesions Neurologic: Awake, alert and oriented X4 Psychiatric: Cooperative, appropriate mood and affect Medical Decision Making: For MDM please see under assessment and plan Procedure No Qualifying Data Assessment/Plan 1.??COPD with exacerbation??J44.1 ??Will try the prednisone taper for??6 tabs 4 tabs 3 tabs 2 tabs??each for 3 days.?? As patient without any??fever or chills and this may be more environmental would not start her on antibiotics at this point. ??Patient is aware if she worsens to return to the emergency department or see primary care provider. Ordered: predniSONE 10 mg oral tablet, See Instruction, Oral, Daily, 6 tabs daily x3 days, 4 tabs daily x3 days, 3 tabs daily x3 days, 2 tab daily x3 days, # 45 tab, 0 Refill(s), Pharmacy: [facility], 153.3, cm, 09/17/23 12:47:00 EDT, Height, 81.65, kg, 09/17/23 12:54:00 EDT, We... Discharge Patient, 10/30/23 12:33:00 EDT, Home Independently, Constant Indicator ?? 2.??Hypoxia??R09.02 ??Respiratory therapy did a walk test and found that patient needed 3 L??at rest as well as 3 L at sleep.?? Will try to arrange for her to have this. Ordered: predniSONE 10 mg oral tablet, See Instruction, Oral, Daily, 6 tabs daily x3 days, 4 tabs daily x3 days, 3 tabs daily x3 days, 2 tab daily x3 days, # 45 tab, 0 Refill(s), Pharmacy: [facility], 153.3, cm, 09/17/23 12:47:00 EDT, Height, 81.65, kg, 09/17/23 12:54:00 EDT, We... Discharge Patient, 10/30/23 12:33:00 EDT, Home Independently, Constant Indicator ?? 3.??Thrush??B37.0 ??Patient with erythema posterior pharynx consistent with slight thrush we will place patient on nystatin swish and swallow or swish and spit??4 times a day for the next 7 days.?? Prescription is sent to the pharmacy. ?? Orders: nystatin 100,000 units/mL oral suspension, 500,000 units = 5 mL, Oral, QID, X 7 days, # 140 mL, 0 Refill(s), 11/06/23 10:47:00 EDT, Pharmacy: [facility], 153.3, cm, 09/17/23 12:47:00 EDT, Height, 81.65, kg, 09/17/23 12:54:00 EDT, Weight Dosing CV EKG ED, 10/30/23 10:45:00 EDT, Stat, Reason: Chest Pain, Stop date and time 10/30/23 10:45:00 EDT, ORD_SET_REQ_DT_RANGE, [facility] Internal Person Id Patient Education Chronic Obstructive Pulmonary Disease Exacerbation Follow Up With When Contact Information Follow up with primary care provider Within 1 to 2 weeks Additional Instructions: Medication Reconciliation New Prescription nystatin (nystatin 100,000 units/mL oral suspension)5 Milliliters Oral (given by mouth) 4 times a day for 7 Days. Refills: 0. ?? predniSONE (predniSONE 10 mg oral tablet)See Instruction Oral (given by mouth) every day. 6 tabs daily x3 days, 4 tabs daily x3 days, 3 tabs daily x3 days, 2 tab daily x3 days. Refills: 0. ?? Unchanged albuterol (Albuterol (Eqv-ProAir HFA) 90 mcg/inh inhalation aerosol)2 Puffs Inhale (breathe in) every 4 hours. Refills: 6. ?? apixaban (apixaban 5 mg oral tablet)1 tab Oral (given by mouth) 2 times a day. Refills: 3. ?? ascorbic acid (Vitamin C 500 mg [...] by mouth) every day. Refills: 0. ?? [id number] Milligrams Oral (given by mouth) as needed as needed for pain. ?? ipratropium-albuterol (ipratropium-albuterol 0.5 mg-2.5 mg/3 mL inhalation solution)USE 1 AMPULE INNEBULIZER EVERY 4 HOURS NEEDED FOR SHORTNESS OF BREATH FOR WHEEZING. Refills: 4. ?? methylPREDNISolone (Medrol Dosepak 4 mg oral tablet)1 packets Oral (given by mouth) every day for 6Days. as directed on package labeling. Refills: 0. ?? omeprazole (omeprazole 40 mg oral delayed release capsule)1 Capsules Oral (given by mouth) every day. Refills: 3. ?? ondansetron (ondansetron 8 mg oral tablet)1 tab Oral every 6 hours as needed for nausea; as needed nausea. Refills: 0. ?? pramipexole (pramipexole 1 mg oral tablet)Take 2 tablets by mouth twice daily. Refills: 6. ?? semaglutide (Ozempic 2 mg/3 mL (0.25 mg or 0.5 mg dose) subcutaneous solution)0.25 Milligrams Subcutaneous (under the skin) every week. rotate injection sites. Refills: 0. ?? torsemide (torsemide 10 mg [...] quit more than 90 days ago. 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 Home/Environment Lives with Spouse. Nutrition/Health Caffeine intake amount: rarely. Sexual Other contraceptive use: [id number]. Substance Use Never Tobacco Current everyday tobacco [...] and Differential?? LATEST RESULTS?? HISTORICAL RESULTS?? WBC?? 10/30/23 10:53?? 9.1?? 08/21/23?? 11.0 ??High?? RBC?? 10/30/23 10:53?? 4.2?? 08/21/23?? 4.2?? Hgb?? 10/30/23 10:53?? 12.6?? 08/21/23?? 12.6?? Hct?? 10/30/23 10:53?? 39.0?? 08/21/23?? 37.6?? MCV?? 10/30/23 10:53?? 92.0?? 08/21/23?? 90.0?? MCH?? 10/30/23 10:53?? 29.7?? 08/21/23?? 30.1?? MCHC?? 10/30/23 10:53?? 32.3?? 08/21/23?? 33.5?? RDW-CV?? 10/30/23 10:53?? 14.8 ??High?? 08/21/23?? 13.3?? Platelets?? 10/30/23 10:53?? 327?? 08/21/23?? 372?? Neutro Auto?? 10/30/23 10:53?? 74.4?? 08/21/23?? 66.3?? Lymph Auto?? 10/30/23 10:53?? 17.5 ??Low?? 08/21/23?? 24.4?? [place] Auto?? 10/30/23 10:53?? 5.0?? 08/21/23?? 5.9?? Eos, Auto?? 10/30/23 10:53?? 2.6?? 08/21/23?? 2.2?? Basophil Auto?? 10/30/23 10:53?? 0.2?? 08/21/23?? 0.5?? Imm Gran Auto?? 10/30/23 10:53?? 0.3?? 08/21/23?? 0.7?? Neutro Absolute?? 10/30/23 10:53?? 6.8?? 08/21/23?? 7.3? Routine Chemistry?? LATEST RESULTS?? HISTORICAL RESULTS?? Sodium Level?? 10/30/23 10:53?? 138?? 09/07/23?? 136?? Potassium Level?? 10/30/23 10:53?? 4.0?? 09/07/23?? 4.1?? Chloride Level?? 10/30/23 10:53?? 104?? 09/07/23?? 98?? CO2?? 10/30/23 10:53?? 28?? 09/07/23?? 30?? Alk Phos?? 10/30/23 10:53?? 112?? 08/21/23?? 111?? AST?? 10/30/23 10:53?? 21?? 08/21/23?? 18?? ALT?? 10/30/23 10:53?? 31?? 08/21/23?? 26?? BUN?? 10/30/23 10:53?? 15?? 09/07/23?? 21 ??High?? Glucose Level?? 10/30/23 10:53?? 121 ??High?? 09/07/23?? 115 ??High?? Creatinine Level?? 10/30/23 10:53?? 0.86?? 09/07/23?? 0.71?? eGFR AA?? 10/30/23 10:53?? 72?? 09/07/23?? 91?? eGFR Non-AA?? 10/30/23 10:53?? 72?? 09/07/23?? 91?? Calcium Level?? 10/30/23 10:53?? 8.9?? 09/07/23?? 8.9?? Protein Total?? 10/30/23 10:53?? 6.9?? 08/21/23?? 7.2?? Albumin Level?? 10/30/23 10:53?? 3.2 ??Low?? 08/21/23?? 3.5?? Bilirubin Total?? 10/30/23 10:53?? 0.3?? 08/21/23?? 0.2? Cardiac Isoenzymes?? LATEST RESULTS?? HISTORICAL RESULTS?? Troponin-I?? 10/30/23 10:53?? <5.0?? 08/21/23?? <5.0?? NT-proBNP?? 10/30/23 10:53?? 64?? 08/21/23?? 83? Electronically Signed on 10/30/2023 12:38 EDT Sabiha Hugo MD Emergency department Discharge instructions * Sabiha Hugo MD: PERFORM Event Display: ED Discharge Information Authored Date: [id number] AUBREE COUCH :1950 Age:73 years Sex:Female Visit Date:10/30/2023 Primary Care Physician: Dilan Hernandez MD Discharge Instructions We would like to thank you for allowing us to assist you with your healthcare needs. The following includes patient education materials and information regarding your injury/illness. Diagnosis from Today's Visit COPD with exacerbation Hypoxia Thrush Discharge Vitals Temperature??(Temporal Artery) 96.4 ??F (35.8 ??C) Heart Rate??(Monitored) 83 Respiratory Rate?? 16 Blood Pressure?? 125/68?? SpO2?? 93% Height?? 60.35 in (153.3 cm) Weight??(Estimated) 177.04 lb (80.29 kg) BMI?? 34.16 Allergies No Known Medication Allergies What to Do Next Instructions from Your Care Team Take prednisone??60 mg for 3 days followed by 40 mg for 3 days followed by 30 mg for 3 days followed by 20 mg for 3 days.?? If you worsen return to the emergency department.?? Wear your oxygen all the time except if you are smoking.?? Try the nystatin swish and swallow or swish and spit??4 times a day for the next week and see if this will help make your mouth feel better. You Need to Schedule the Following Appointments Follow Up with??Follow up with primary care provider When:??Within 1 to 2 weeks Upcoming Scheduled Appointments Thursday 8:30 AM EDT ?? Where: [address] [address] Status: Confirmed 2023 9:20 AM EDT ?? With: Dilan Hernandez MD Where: [facility] [address] [address] Status: Confirmed Thursday 8:30 AM EDT ?? With: Jaimee Cerda MISSION ASSESSMENT SPECIALIST Where: [facility] [address] [place] [address] [place] [address] Status: Confirmed 2024 1:00 PM EDT ?? With: Dilan Hernandez MD Where: [facility] [address] [address] Status: Confirmed You were treated [...] Much When Why Instructions Next Dose New nystatin (nystatin 100,000 units/ mL oral suspension) 5 Milliliters Oral (given by mouth) 4 times a day Duration: 7 Days Pickup at [facility] 1728 New predniSONE (predniSONE 10 mg oral tablet) See Instruction Oral (given by mouth) Every day COPD with exacerbation Hypoxia 6 tabs daily x3 days, 4 tabs daily x3 days, 3 tabs daily x3 days, 2 tab daily x3 days ?? Pickup at [facility] 415 Unchanged albuterol (Albuterol (Eqv-ProAir HFA) 90 mcg/ inh inhalation aerosol) 2 Puffs Inhale (breathe in) Every 4 hours COPD mixed type Unchanged apixaban (apixaban 5 mg oral tablet) 1 tab Oral (given by mouth) 2 times a day Right pulmonary embolus Unchanged ascorbic acid (Vitamin C 500 mg [...] SHORTNESS OF BREATH FOR WHEEZING ?? Unchanged methylPREDNISolone (Medrol Dosepak 4 mg oral tablet) 1 packets Oral (given by mouth) Every day Chronic obstructive lung disease Duration: 6 Days as directed on package labeling ?? Unchanged omeprazole (omeprazole 40 mg oral delayed release capsule) 1 Capsules Oral (given by mouth) Every day Unchanged ondansetron (ondansetron 8 mg oral tablet) See instructions Nausea 1 tab Oral every 6 hours as needed for nausea, As needed for nausea ?? Unchanged pramipexole (pramipexole 1 mg oral tablet) See instructions Take 2 tablets by mouth twice daily ?? Unchanged semaglutide (Ozempic 2 mg/ 3 mL (0.25 mg or 0.5 mg dose) subcutaneous solution) 0.25 Milligrams Subcutaneous (under the skin) Every week Prediabetes rotate injection sites ?? Unchanged torsemide (torsemide 10 mg oral tablet) 1 tab Oral (given by mouth) Every day Unchanged traMADol (traMADol 50 mg oral tablet) 2 tab Oral (given by mouth) Every 8 hours as needed for as needed for pain Pharmacy Information [facility]: [address] [place] [address] [phone] Education Materials Chronic Obstructive Pulmonary Disease Exacerbation Chronic obstructive pulmonary disease (COPD) is a long-term (chronic) condition that affects the lungs. COPD is a general term that can be used to describe many different lung problems that cause lung inflammation and limit airflow, including chronic bronchitis and emphysema. COPD exacerbations areepisodes when breathing symptoms flare up, become much worse, and require extra treatment. COPD exacerbations are usually caused by infections. Without treatment, COPD exacerbations can be severe and even life threatening. Frequent COPD exacerbations can cause further damage to the lungs. What are the causes? This condition may be caused by: ? Respiratory infections, including viral and bacterial infections. ? Exposure to smoke. ? Exposure to air pollution, chemical fumes, or dust. ? Things that can cause an allergic reaction (allergens). ? Not taking your usual COPD medicines as directed. ? Underlying medical problems, such as congestive heart failure or infections not involving the lungs. In many cases, the cause of this condition is not known. What increases the risk? The following factors may make you more likely to develop this condition: ? Smoking cigarettes. ? Being an older adult. ? Having frequent prior COPD exacerbations. What are the signs or symptoms? Symptoms of this condition include: ? Increased coughing. ? Increased production of mucus from your lungs. ? Increased wheezing and shortness of breath. ? Rapid or labored breathing. ? Chest tightness. ? Less energy than usual. ? Sleep disruption from symptoms. ? Confusion ? Increased sleepiness. Often, these symptoms happen or get worse even with the use of medicines. How is this diagnosed? This condition is diagnosed based on: ? Your medical history. ? A physical exam. You may also have tests, including: ? A chest X-ray. ? Blood tests. ? Lung (pulmonary) function tests. How is this treated? Treatment for this condition depends on the severity and cause of the symptoms. You may need to be admitted to a hospital for treatment. Some of the treatments commonly used to treat COPD exacerbations are: ? Antibiotic medicines. These may be used for severe exacerbations caused by a lung infection, such as pneumonia. ? Bronchodilators. These are inhaled medicines that expand the air passages and allow increased airflow. They may make your breathing more comfortable. ? Steroid medicines. These act to reduce inflammation in the airways. They may be given with an inhaler, taken by mouth, or given through an IV tube inserted into one of your veins. ? Supplemental oxygen therapy. ? Airway clearing techniques, such as noninvasive ventilation (NIV) and positive expiratory pressure (PEP). These provide respiratory support through a mask or other noninvasive device. An example of this would be using a continuous positive airway pressure (CPAP) machine to improve delivery of oxygen into your lungs. Follow these instructions at home: Medicines ? Take [id number] and prescription medicines only as told by your health care provider. ? It is important to use correct technique with inhaled medicines. ? If you were prescribed an antibiotic medicine or oral steroid, take it as told by your health care provider. Do not stop taking the medicine even if you start to feel better. Lifestyle ? Do not use any products that contain nicotine or tobacco. These products include cigarettes, chewing tobacco, and vaping devices, such as e-cigarettes. If you need help quitting, ask your health careprovider. ? Eat a healthy diet. ? Exercise regularly. ? Get enough sleep. Most adults need 7 or more hours per night. ? Avoid exposure to all substances that irritate the airway, especially tobacco smoke. ? Regularly wash your hands with soap and water for at least 20 seconds. If soap and water are not available, use hand table saw operator. This may help prevent you from getting infections. ? During flu season, avoid enclosed spaces that are crowded with people. General instructions ? Drink enough fluid to keep your urine pale yellow, unless you have a medical condition that requires fluid restriction. ? Use a cool mist vaporizer. This humidifies the air and makes it easier for you to clear your chest when you cough. ? If you have a home nebulizer and oxygen, continue to use them as told by your health care provider. ? Keep all follow-up visits. This is important. How is this prevented? Stay up-to-date on pneumococcal and flu (influenza) vaccines. A flu shot is recommended every year to help prevent exacerbations. ? Quitting smoking is very important in preventing COPD from getting worse and in preventing exacerbations from happening as often. ? Follow all instructions for pulmonary rehabilitation after a recent exacerbation. This can help prevent future exacerbations. ? Work with your health care provider to develop and follow an action plan. This tells you what stepsto take when you experience certain symptoms. Contact a health care provider if: ? You have a worsening of your regular COPD symptoms. Get help right away if: ? You have worsening shortness of breath, even when resting. ? You have trouble talking. ? You have severe chest pain. ? You cough up blood. ? You have a fever. ? You have weakness, vomit repeatedly, or faint. ? You feel confused. ? You are not able to sleep because of your symptoms. ? You have trouble doing daily activities. These symptoms may represent a serious problem that is an emergency. Do not wait to see if the symptoms will go away. Get medical help right away. Call your local emergency services (911 in the [place] Do not drive yourself to the hospital. Summary ? COPD exacerbations are episodes when breathing symptoms become much worse and require extra treatment above your normal treatment. ? Exacerbations can be severe and even life threatening. Frequent COPD exacerbations can cause further damage to your lungs. ? COPD exacerbations are usually triggered by infections such as the flu, colds, and even pneumonia. ? Treatment for this condition depends on the severity and cause of the symptoms. You may need to be admitted to a hospital for treatment. ? Quitting smoking is very important to prevent COPD from getting worse and to prevent exacerbations from happening as often. This information is not intended to replace advice given to you by your health care provider. Make sure you discuss any questions you have with your health care provider. Document Revised: 04/02/2021 Document Reviewed: 04/02/2021 [employer] Patient Education ?? 2022 [employer] Tests Performed Lab Test Name Test Result Date/Time WBC 9.1 x10^3/mcL 10/30/2023 10:53 EDT RBC 4.2 x10^6/mcL 10/30/2023 10:53 EDT Hgb 12.6 g/dL 10/30/2023 10:53 EDT Hct 39.0 % 10/30/2023 10:53 EDT MCV 92.0 fL 10/30/2023 10:53 EDT MCH 29.7 pg 10/30/2023 10:53 EDT MCHC 32.3 g/dL 10/30/2023 10:53 EDT RDW-CV 14.8 % 10/30/2023 10:53 EDT Platelets 327 x10^3/mcL 10/30/2023 10:53 EDT Neutro Auto 74.4 % 10/30/2023 10:53 EDT Lymph Auto 17.5 % 10/30/2023 10:53 EDT [place]ach Auto 5.0 % 10/30/2023 10:53 EDT Eos, Auto 2.6 % 10/30/2023 10:53 EDT Basophil Auto 0.2 % 10/30/2023 10:53 EDT Imm Gran Auto 0.3 % 10/30/2023 10:53 EDT Neutro Absolute 6.8 x10^3/mcL 10/30/2023 10:53 EDT Sodium Level 138 mmol/L 10/30/2023 10:53 EDT Potassium Level 4.0 mmol/L 10/30/2023 10:53 EDT Chloride Level 104 mmol/L 10/30/2023 10:53 EDT CO2 28 mmol/L 10/30/2023 10:53 EDT Alk Phos 112 unit/L 10/30/2023 10:53 EDT AST 21 unit/L 10/30/2023 10:53 EDT ALT 31 unit/L 10/30/2023 10:53 EDT BUN 15 mg/dL 10/30/2023 10:53 EDT Glucose Level 121 mg/dL 10/30/2023 10:53 EDT Creatinine Level 0.86 mg/dL 10/30/2023 10:53 EDT eGFR AA 72 10/30/2023 10:53 EDT eGFR Non-AA 72 10/30/2023 10:53 EDT Calcium Level 8.9 mg/dL 10/30/2023 10:53 EDT Protein Total 6.9 g/dL 10/30/2023 10:53 EDT Albumin Level 3.2 g/dL 10/30/2023 10:53 EDT Bilirubin Total 0.3 mg/dL 10/30/2023 10:53 EDT Troponin-I <5.0 pg/mL 10/30/2023 10:53 EDT NT-proBNP 64 pg/mL 10/30/2023 10:53 EDT Patient/Postal Delivery Officer Signature Patient Name:AUBREE COUCH I have received this information and my questions have been answered. Patient/Postal Delivery Officer Name: Patient/Postal Delivery Officer Signature: Relationship to Patient: Witness Name/Signature: Date: Electronically Signed on: 10/30/2023 12:36 EDTSigned by:[facility] Emergency department Note * Cheryl Patel: PERFORM Event Display: ED Notes Authored Date: [id number] History and physical note * Event Display: History and Physical Update Authored Date: [id number] Discharge summary * Cheryl Patel: PERFORM Event Display: Discharge Note Authored Date: * Cheryl Patel: PERFORM Event Display: Discharge Note Authored Date: Diagnosis: 1. COPD with exacerbation Comment: Diagnosis: 2. Hypoxia Comment: Diagnosis: 3. Thrush Comment: Diagnosis: SOB - Shortness of breath Comment: Electronically Signed on 10/30/2023 12:53 EDT Cheryl Patel Patient Care team information Care Team Personnel Name: Dilan Hernandez MD Position: Physician Member Role: Informed Provider Address: Address: [id number] [place] [address] Care Team Related Persons Name: LIAM QUIGLEY Address: [address] [address] Address: Home [address] [place] [phone] Address: Mailing [address] [place] [phone] Name: GRACIELA COUCH Address: [address] [phone]
--- OUTSIDE RECORDS SUMMARY | 2024-07-07 20:03 | XMS_ITS | Continuity of Care Document ---
Author Organization [facility] Address [address] [place] [address] Care Team Providers Care Motor Vehicle Or Caravan Salesperson Name Role Phone Dilan Hernandez Primary Care Physician [phone] Encounter [facility] [id number] Date(s): 07/31/23 - 07/31/23 [facility] [address] [place] [address] Encounter Diagnosis Chronic pain disorder(Discharge Diagnosis) - 07/31/23 Chronic obstructive lung disease(Discharge Diagnosis) - 07/31/23 Abdominal swelling(Discharge Diagnosis) - 07/31/23 Discharge Disposition: Home or Self Care Attending Physician: Dilan Hernandez MD Admitting Physician: Dilan Hernandez MD Referring Physician: Dilan Hernandez MD Allergies, Adverse Reactions, Alerts No Known Medication Allergies Assessment and Plan Future Appointments Future Scheduled Tests Laboratory* Basic Metabolic Panel 09/29/22 Immunizations Given and Recorded Vaccine Date [...] Inactivated Influenza 01/20/2019 Administered by NOEMÍ HERNANDEZ, Legal Librarian 04-09-2020 2Result Comment: influenza, trivalent, adjuvanted VIS given: 03-24-2019 VIS published date: Inactivated Influenza 01/20/2019 Administered by SOWMYA MCMILLAN, Legal Librarian 03-24-2019 3Result Comment: influenza, high dose seasonal Administered by: SULTANA 4Result Comment: [place] 5Result Comment: Moderna bivalent, 6+ months, blue cap 6Result Comment: influenza, high-dose, quadrivalent Patient Declined Last Modified by SOWMYA MCMILLAN Legal Librarian 06-21-2020, 11:26 Medications Albuterol (Eqv-ProAir HFA) 90 mcg/inh inhalation aerosol 2 puffs, Inhale, every 4 hr, # 8.5 g, 6 Refill(s), Pharmacy: [facility], 155, cm, 05/04/23 10:37:00 EST, Height, 81.6, kg, 07/01/23 15:10:00 EST, Weight Dosing Start Date: 07/01/23 Status: Ordered amoxicillin 500 mg oral capsule 500 mg = 1 cap, Oral, TID, # 21 cap, 0 Refill(s), Pharmacy: [place] [address], 155, cm, 05/04/23 10:37:00 EST, Height, 81.51, kg, 07/23/23 10:33:00 EST, Weight Dosing Start Date: 07/23/23 Stop Date: 07/30/23 Status: Ordered apixaban 5 mg oral tablet 5 mg = 1 tab, Oral, BID, # 60 tab, 3 Refill(s), Pharmacy: [place] [address], 155, cm, 05/04/23 10:37:00 EST, Height, 81.6, [...] DAILY, # 90 tab, 3 Refill(s), Pharmacy: [place] [address], 155, cm, 05/04/23 10:37:00 EST, Height, 81.6, kg, 07/01/23 15:10:00 EST, Weight Dosing Start Date: 07/01/23 Status: Ordered ferrous sulfate 325 mg (65 mg elemental iron) oral delayed release tablet 325 mg = 1 tab, Oral, Daily, # 90 tab, 0 Refill(s), Pharmacy: [place] [address], 156, cm, 03/27/22 9:33:00 EDT, Height/Length Dosing, [...] WHEEZING, # 90 mL, 4 Refill(s), Pharmacy: [place] [address], 154, cm, 04/03/23 18:11:00 EDT, Height/Length Dosing, 76.6, kg, 04/15/23 11:00:00 EST, Weight Dosing Start Date: 04/15/23 Status: Ordered omeprazole 40 mg oral delayed release capsule 40 mg = 1 cap, Oral, Daily, # 90 cap, 3 Refill(s), Pharmacy: [place] [facility] [address], 155, cm, 12/04/22 20:52:00 EDT, Height/Length Dosing, 69.4, kg, 12/04/22 20:52:00 EDT, Weight Dosing Start Date: 01/29/23 Status: Ordered Oxygen Therapy Supply, See instructions, # 1 EA, 0 Refill(s) Start Date: 11/19/22 Status: Ordered pramipexole 1 mg oral tablet See Instructions, Take 2 tablets by mouth twice daily, # 120 tab, 6 Refill(s), Pharmacy: [place] [address], 155, cm, 05/04/23 10:37:00 EST, Height, 78.97, kg, 05/14/23 10:34:00 EST, Weight Dosing Start Date: 05/29/23 Status: Ordered traMADol 50 mg oral tablet 50 mg = 1 tab, Oral, every 4 hr, PRN as needed for pain, # 28 tab, 0 Refill(s), Pharmacy: [place] [address], 155, cm, 05/04/23 10:37:00 EST, Height, 81.6, kg, 07/01/23 15:10:00 EST, Weight Dosing Start Date: 07/13/23 Status: Ordered Trelegy Ellipta 100 mcg-62.5 mcg-25 mcg/inh inhalation powder See Instructions, INHALE 1 PUFF ONCE DAILY AT THE SAME TIME EACH DAY, # 60 EA, 4 Refill(s), Pharmacy: [place] [address], 155, cm, 12/04/22 20:52:00 EDT, Height/Length Dosing, 69.4, kg, 12/04/22 20:52:00 EDT, Weight Dosing Start Date: 03/17/23 Status: Ordered Vitamin C 500 mg oral tablet 500 mg = 1 tab, Oral, Daily, # 90 tab, 0 Refill(s), Pharmacy: [facility], 156, cm, 03/27/22 9:33:00 [...] Overview: Added automatically from request for surgery [id number] 2Outside Source Comment: Overview: Added automatically from request for surgery [id number] Procedures Procedure Date Related Diagnosis Body Site [...] 5 year call-back 5Sisson 6right, d/t cyst [id number] with Left salpingectomy Social History Social History Type Response Smoking Status Smoking tobacco use: Current everyday tobacco user;Never; Number used per day: 1.5 PPD; entered on: 06/15/23 Sex Female History and physical note * Event Display: History and Physical Update Authored Date: [id number] Patient Care team information Care Team Personnel Name: Dilan Hernandez MD Position: Physician Member Role: Informed Provider Address: Address: [id number] [place] [address] Care Team Related Persons Name: LIAM QUIGLEY Address: [address] [address] Address: Home [address] [place] [phone] Address: Mailing [address] [place] [phone] Name: GRACIELA COUCH Address: Home [address] [place] [phone]
--- OUTSIDE RECORDS SUMMARY | 2024-07-07 20:03 | XMS_ITS | Continuity of Care Document ---
Author Organization [facility] Address [address] [place] [address] Care Team Providers Care Public Accountant Name Role Phone Dilan Hernandez Primary Care Physician [phone] Encounter [facility]3] [id number] Date(s): 02/13/23 - 02/13/23 [facility] [address] [place] [address] Encounter Diagnosis Restless legs(Discharge Diagnosis) - 02/11/23 Hypoxemia associated with sleep(Discharge Diagnosis) - 02/11/23 Right knee pain(Discharge Diagnosis) - 02/13/23 Discharge Disposition: Home or Self Care Attending Physician: Jaimee Cerda UNDERWATER TRAPPER Allergies, Adverse Reactions, Alerts No Known Medication [...] Inactivated Influenza 01/20/2019 Administered by NOEMÍ HERNANDEZ, Recovery Auditor 04-09-2020 3Result Comment: influenza, trivalent, adjuvanted VIS given: 03-24-2019 VIS published date: Inactivated Influenza 01/20/2019 Administered by SOWMYA MCMILLAN, Recovery Auditor 03-24-2019 4Result Comment: influenza, high dose seasonal Administered by: SULTANA 5Result Comment: influenza, high-dose, quadrivalent Patient Declined Last Modified by SOWMYA MCMILLAN Recovery Auditor 06-21-2020, 11:26 Medications Albuterol (Eqv-ProAir HFA) 90 mcg/inh inhalation aerosol 2 puffs, Inhale, every 4 hr, # 8.5 g, 6 Refill(s), Pharmacy: [facility], 156, cm, 03/27/22 9:33:00 EDT, Height/Length Dosing, 68.04, kg, 03/27/22 9:33:00 EDT, Weight Dosing Start Date: 09/29/22 Status: Ordered Ativan 0.5 mg oral tablet See Instructions, take 30-60 minutes prior to procedure., # 1 tab, 0 Refill(s), Pharmacy: [facility], 156, cm, 03/27/22 9:33:00 [...] before procedure., # 2tab, 0 Refill(s), Pharmacy: [facility], 156, cm, 03/27/22 9:33:00 EDT, Height/Length Dosing, 68.04, kg, 03/27/22 9:33:00 EDT, Weight Dosing Start Date: 10/10/22 Status: Ordered escitalopram 10 mg oral tablet 10 mg = 1 tab, Oral, Daily, TAKE 1 TABLET BY MOUTH ONCE DAILY, # 90 tab, 3 Refill(s), Pharmacy: [facility], 156, cm, 03/27/22 9:33:00 EDT, Height/Length Dosing, 68.04, kg, 03/27/22 9:33:00EDT, Weight Dosing Start Date: 05/12/22 Status: Ordered ferrous sulfate 325 mg (65 mg elemental iron) oral delayed release tablet 325 mg = 1 tab, Oral, Daily, # 90 tab, 0 Refill(s), Pharmacy: [facility], 156, cm, 03/27/22 9:33:00 EDT, Height/Length Dosing, 68.04, kg, 03/27/22 9:33:00 EDT, Weight Dosing Start Date: 08/15/22 Status: Ordered ipratropium-albuterol 0.5 mg-2.5 mg/3 mL inhalation solution 3 mL, NEB, every 4 hr, PRN as needed for shortness of breath or wheezing, COPD J44.1, # 90 mL, 3 Refill(s), Pharmacy: [facility], 155, cm, 12/04/22 20:52:00 EDT, Height/Length Dosing, 69.4, kg, 12/04/22 20:52:00 EDT, Weight Dosing Start Date: 12/15/22 Status: Ordered omeprazole 40 mg oral delayed release capsule 40 mg = 1 cap, Oral, Daily, # 90 cap, 3 Refill(s), Pharmacy: [facility], 155, cm, 12/04/22 20:52:00 [...] mg oral tablet See Instructions, Tapered dose 31-16-07-69-35-79-51-84-09-20-10-10, # 42 EA, 0 Refill(s), Pharmacy:[facility], 155, cm, 12/04/22 20:52:00 [...] # 90 tab, 0 Refill(s), Pharmacy: [facility], 156, cm, 03/27/22 9:33:00 [...] Overview: Added automatically from request for surgery [id number] 2Outside Source Comment: Overview: Added automatically from request for surgery [id number] Procedures Procedure Date Related Diagnosis Body Site [...] Range]: 1 Peripheral Pulse Rate [60-100 bpm] 72 bp m (02/13/23 8:42 AM) Blood Pressure [90-140/60-90 mmHg] 133/6 6mmHg (02/13/23 8:42 AM) Weight 71.67 kg (02/13/23 8:42 AM) Weight Measured (lbs) 158.005 lb (02/13/23 8:42 AM) Height 154 cm (02/13/23 8:42 AM) Height/Length Measured (inches) 60.63 in ch (02/13/23 8:42 AM) BSA Measured 1.75 m2 (02/13/23 8:42 AM) Body Mass Index 30.22 kg/m2 (02/13/23 8:42 AM) Social History Social History Type Response Smoking Status Smoking tobacco use: Current everyday tobacco user;Never; Number used per day: 1.5 PPD; entered on: 03/27/22 Sex Female History and physical note * Event Display: History and Physical Update Authored Date: [id number] Physician Outpatient Note * Jaimee Cerda UNDERWATER TRAPPER: PERFORM, MODIFY Event Display: Office Clinic Note Physician Authored Date: [id number] KHOAMALLORIE :1950 Age:72 years Sex:Female Visit Date:02/13/2023 Primary Care Physician: Dilan Hernandez MD History of Present Illness Mallorie Couch has?? visit for RLS and hypoxemia follow-up. ?? Mallorie?? was seen by me on 11/07/2022. She has a medical history to include anxiety, GERD, pyloric stenosis, COPD, lumbosacral radiculopathy, urinary incontinence and RLS. ?? She noted symptoms of RLS (QHS and many days), mild snoring, excessive daytime sleepiness (ESS 20),nocturia??and??difficulty returning to sleep taking 2-3 hours most nights. She was changed from Mirapex ER 3mg to pramipexole 1 mg take 2 tabs BID with plan to decrease dose over time and add gabapentin if needed. Ferritin level on 08/15/22 was only 23 and she was advised totake her iron regularly (which she was not doing). ?? Polysomnogram was completed on??10/23/2022 (BMI 30.87) and I reviewed the results with??her in detail today. Sleep efficiency was 87%, AHI 0.8/hr, RDI 0.9/hr, REM AHI 2.1/hr, REM RDI 2.1/hr, supine AHI 2/hr, right lateral AHI 1/hr, left lateral AHI 0/hr, sp02 miguel 76%,??420 minutes were spent at a saturation <88%, arousal index 6/hr, PLMi 17.7/hr, PLM arousal index 3.3/hr. EKG showed NSR. ?? Last visit she had cut back to taking the Mirapex ER 3 mg only once a day and was planning to pick up driver the pramipexole 2mg tablets when she ran out so she could wean down. I ordered 02 at 2 lpm with sleep and an overnight oximetry which was completed on 12/02/2022 and no significant hypoxemia noted (sp02 miguel 88%). ?? Mallorie tells me that she has PFT's scheduled next week but no appointment yet with pulmonology. She leaves in a week for a month long RV trip. She is using the 02 QHS at 2 lpm. She is tolerating this well. She says she still has fragmented sleep but she did feel that she was sleeping deeper whenshe first started using it. She is taking pramipexole 2 mg QAM and 2 mg QHS. She says that things are pretty good. She tends tohave symptoms that start in the early evening but not every night. They tend to get better when shemoves around and after she takes the medication. She is not aware of leg movements waking her up but rarely it will prevent her from falling asleep easily. Physical Exam Vitals & Measurements HR:??72??(Peripheral)?? BP:??133/66?? SpO2:??96%?? HT:??154??cm?? WT:??71.67??kg?? BMI:??30.22?? BSA:??1.75?? GENERAL: answers questions appropriately, well groomed, over weight. HEAD: normocephalic and atraumatic. EYES: non icteric LUNGS: rhonchi deni lower lobes. Good air movement throughout. Cough CARDIO: RRR without murmur, gallop or thrill. NEURO: alert and oriented, normal gait. PYSCH: normal mood and affect. CUTANEOUS: no overt lesions or rashes.?? Clinic Assessment/Plan 1.??Restless legs??G25.81 She has symptoms of restless legs most nights and often throughout the day. She also has them when driving. She is taking escitalopram which may cause or worsen RLS.??Last visit she was??taking a very high dose of Mirapex ER at 3 mg BID (10 am, 10 pm) for a few years. The maximum recommended dose of Mirapex for treatment of RLS is 0.75 mg per day. Higher doses may lead to augmentation. She had symptoms every night and all day long some days. This is consistent with augmentation as they have gotten worse over time. She??was previously instructed that caffeine and chocolate may worsen RLS symptoms and they may be improved by exercise.??Last visit I changed her from Mirapex ER 3 mg to pramipexole??2 mg BID with the plan??I will slowly try to wean down on this. She has been taking 2 m gBID and overall feels her symptoms have improved. She now only has symptoms in the evenings and not every night. They get better with walking around and after she takes her PM dose of pramipexole. I have instructed her to takeonly 1 mg of pramipexole QAM and continue with 2 mg in the evening. Her ferritin level on 08/15/2022 was only 23 and she has been taking her iron daily. She is tolerating this well and taking it with vitamin C. I have ordered an updated ferritin level today with plan to stop is >75. I will see her back in six months. She is asked to call our office for any sleep related questions or concerns. I provided greater than 30 minutes in the care of this patient, more than half the time was spent in [id number] counseling. ?? ADDENDUM 02/13/23 ferritin 35, she was advised to increase the iron and vitamin C to BID Actions: COMPLETED - 06382 Office/Outpatient Visit - Established Patient, Level 4 (30-39 min)., 02/13/23 8:39:00 EDT, Restless legs Hypoxemia associated with sleep Right knee pain FUTURE - Ferritin, Blood, Routine, 02/13/23, Once, Lab Collect, Restless legs Hypoxemia associated with sleep Right knee pain, Order for future visit FUTURE - Follow-Up Appointment Request [facility], *Est. 08/14/23 +/- 28 days, Future Order, In [facility] [place] [facility] ?? 2.??Hypoxemia associated with sleep??G47.36 PSG did not reveal any sleep disordered breathing but there was significant hypoxemia with 420 minutes spent with sp02 less than 88%.??Last visit??I??ordered 02 at 2 lpm with sleep and??an overnight oximetry on 2 lpm. The follow-up oximetry showed significant improvement with no time spent with oxygen saturation <88%. She has been using this QHS and tolerates it well. She initially felt she slept more deeply with 02 but still has some fragmented sleep. She will be going on a month long RV trip and is taking the 02 with her. She has an appointment pending with pulmonology. Actions: COMPLETED - [id number] Office/Outpatient Visit - Established Patient, Level 4 (30-39 min)., 02/13/23 8:39:00 EDT, Restless legs Hypoxemia associated with sleep Right knee pain FUTURE - Ferritin, Blood, Routine, 02/13/23, Once, Lab Collect, Restless legs Hypoxemia associated with sleep Right knee pain, Order for future visit FUTURE - Follow-Up Appointment Request [facility], *Est. 08/14/23 +/- 28 days, Future Order, In [facility] ?? 3.??Right knee pain??M25.561 Actions: COMPLETED - [id number] Office/Outpatient Visit - Established Patient, Level 4 (30-39 min)., 02/13/23 8:39:00 EDT, Restless legs Hypoxemia associated with sleep Right knee pain FUTURE - Ferritin, Blood, Routine, 02/13/23, Once, Lab Collect, Restless legs Hypoxemia associated with sleep Right knee pain, Order for future visit FUTURE - Follow-Up Appointment Request [facility], *Est. 08/14/23 +/- 28 days, Future Order, In [facility] ?? Problem List/Past Medical History Ongoing Anxiety disorder Chronic obstructive lung disease Claustrophobia Degeneration of lumbar intervertebral disc Diarrhea Excessive daytime sleepiness Gastroesophageal reflux disease History of pyloric channel ulcer Hypoxemia associated with sleep Insomnia Low back pain Lumbar spondylosis Lumbosacral radiculopathy Mixed urinary incontinence Nicotine dependence Overweight Peptic ulcer Pyloric stenosis Restless legs Right hip pain Tobacco user Historical Procedure/Surgical History ? ?Vaginal [...] physician if questions or concerns ?? Unchanged diazePAM (diazePAM 2 mg oral tablet) See instructions Claustrophobia Take one tablet 1 hr prior to procedure and 1 tablet right before procedure. Contact prescribing physician if questions or concerns [...] physician if questions or concerns ?? Unchanged fluticasone/ umeclidinium/ vilanterol (Trelegy Ellipta 100 mcg-62.5 mcg-25 mcg/ inh inhalation powder) See instructions INHALE 1 PUFF ONCE DAILY AT THE SAME TIME EACH DAY Contact prescribing physician if questions or concerns ?? Unchanged ipratropium-albuterol (ipratropium-albuterol 0.5 mg-2.5 mg/ 3 mL inhalation solution) 3 Milliliters Nebulized inhalation (inhale using nebulizer) Every 4 hours as needed for as needed for shortness of breath or wheezing COPD exacerbation COPD J44.1 Contact prescribing physician if questions or concerns ?? Unchanged LORazepam (Ativan 0.5 mg oral tablet) See instructions take 30-60 minutes prior to procedure. Contact prescribing physician if questions or concerns ?? Unchanged omeprazole (omeprazole 40 mg oral delayed release capsule) 1 Capsules Oral (given by mouth) Every day Contact prescribing physician if questions or concerns ?? Unchanged pramipexole (pramipexole 3 mg oral tablet, extended release) 180 EA, TAKE 1 TABLET BY MOUTH TWICE DAILY Contact prescribing physician if questions or concerns ?? Unchanged predniSONE (predniSONE 10 mg oral tablet) See instructions Chronic obstructive lung disease Tapered dose 00-64-23-64-52-32-69-56-36-20-10-10 Contact prescribing physician if questions or concerns ?? Allergies No Known Medication Allergies Social History Alcohol Current, Daily- Comments: 1 Kahlua and milk/day Electronic Cigarette/Vaping Electronic Cigarette Use: Former use, quit more than 90 days ago. 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 Home/Environment Lives with Spouse. Nutrition/Health Caffeine intake amount: rarely. Sexual Other contraceptive use: [id number]. Substance Use Never Tobacco Current everyday tobacco [...] Patient Declined Last Modified by SOWMYA MCMILLAN, Recovery Auditor ??06-21-2020, 11:26 influenza virus vaccine, live 04/30/2021 Recorded SARS-CoV-2 (COVID-19) mRNA-1273 vaccine 09/17/2020 Recorded SARS-CoV-2 (COVID-19) mRNA-1273 vaccine 08/21/2020 Recorded influenza, unspecified formulation 04/09/2020 Recorded Comments : influenza, high-dose, quadrivalent VIS given: 04-09-2020 VIS published date: Inactivated Influenza 01/20/2019 Administered by NOEMÍ HERNANDEZ, Recovery Auditor ??04-09-2020 influenza, unspecified formulation 03/24/2019 Recorded Comments : influenza, trivalent, adjuvanted VIS given: 03-24-2019 VIS published date: Inactivated Influenza 01/20/2019 Administered by SOWMYA MCMILLAN, Recovery Auditor ??03-24-2019 tetanus-diphth toxoids (Td) adult/adol 10/18/2018 Recorded [...] varicella virus vaccine Recorded Electronically Signed on 02/13/23 09:05 AM Jaimee Cerda UNDERWATER TRAPPER Electronically Signed on 02/13/23 10:40 AM Jaimee Cerda UNDERWATER TRAPPER Patient Care team information Care Team Personnel Name: Dilan Hernandez MD Position: Physician Member Role: Informed Provider Address: Address: [address] [address] Care Team Related Persons Name: LIAM QUIGLEY Address: [address], [address] Address: Home [address] [place] [phone] Name: LIAM QUIGLEY Address: [address] [phone] Name: GRACIELA COUCH Address: Home [address] [place] [phone]
--- OUTSIDE RECORDS SUMMARY | 2024-07-07 20:03 | XMS_ITS | Continuity of Care Document ---
Author Organization [facility] Address [address] [place] [address] Care Team Providers Care .Net Programmer Name Role Phone Dilan Hernandez Primary Care Physician [facility] [id number] Date(s): 07/06/23 - 07/06/[address] [address] Encounter Diagnosis SOB (shortness of breath) on exertion(Discharge Diagnosis) - 07/06/23 Discharge Disposition: Home or Self Care Attending [...] published date: Inactivated Influenza 01/20/2019 Administered by ONEMÍ HERNANDEZ, Animal Tech 04-09-2020 2Result Comment: influenza, trivalent, adjuvanted VIS given: 03-24-2019 VIS published date: Inactivated Influenza 01/20/2019 Administered by SOWMYA MCMILLAN, Animal Tech 03-24-2019 3Result Comment: influenza, high dose seasonal Administered by: SULTANA 4Result Comment: William 5Result Comment: influenza, high-dose, quadrivalent Patient Declined Last Modified by SOWMYA MCMILLAN Animal Tech 06-21-2020, 11:26 Medications Albuterol (Eqv-ProAir HFA) 90 mcg/inh inhalation aerosol 2 puffs, Inhale, every 4 hr, # 8.5 g, 6 Refill(s), Pharmacy: [facility], 155, cm, 05/04/23 10:37:00 EST, Height, 81.6, kg, 07/01/23 15:10:00 EST, Weight Dosing Start Date: 07/01/23 Status: Ordered apixaban 5 mg oral tablet 5 mg = 1 tab, Oral, BID, # 60 tab, 3 Refill(s), Pharmacy: [facility], 155, cm, 05/04/23 10:37:00 EST, Height, 80, kg, 06/18/23 15:33:00 EST, Weight Dosing Start Date: 06/18/23 Status: Ordered cephalexin 250 mg oral capsule [...] DAILY, # 90 tab, 3 Refill(s), Pharmacy: [facility], 155, cm, 05/04/23 10:37:00 EST, Height, 81.6, kg, 07/01/23 15:10:00 EST, Weight Dosing Start Date: 07/01/23 Status: Ordered ferrous sulfate 325 mg (65 mg elemental iron) oral delayed release tablet 325 mg = 1 tab, Oral, Daily, # 90 tab, 0 Refill(s), Pharmacy: [facility], 156, cm, 03/27/22 9:33:00 [...] WHEEZING, # 90 mL, 4 Refill(s), Pharmacy: [facility], 154, cm, 04/03/23 18:11:00 EDT, Height/Length Dosing, 76.6, kg, 04/15/23 11:00:00 EST, Weight Dosing Start Date: 04/15/23 Status: Ordered Lyrica 25 mg oral capsule 25 mg = 1 cap, Oral, TID, # 90 cap, 3 Refill(s), Pharmacy: [place] [address], 155, cm, 05/04/2310:37:00 EST, Height, 78.97, kg, 05/14/23 10:34:00 EST, Weight Dosing Start Date: 05/14/23 Status: Ordered omeprazole 40 mg oral delayed release capsule 40 mg = 1 cap, Oral, Daily, # 90 cap, 3 Refill(s), Pharmacy: [place] [address], 155, cm, 12/04/22 20:52:00 EDT, Height/Length Dosing, 69.4, kg, 12/04/22 20:52:00 EDT, Weight Dosing Start Date: 01/29/23 Status: Ordered Oxygen Therapy Supply, See instructions, # 1 EA, 0 Refill(s) Start Date: 11/19/22 Status: Ordered Ozempic 2 mg/3 mL (0.25 mg or 0.5 mg dose) subcutaneous solution 0.25 mg =, Subcutaneous, every week, rotate injection sites, # 1 EA, 0 Refill(s), Pharmacy: [place] [address], 154, cm, 04/03/23 18:11:00 EDT, Height/Length Dosing, 76.35, kg, 04/23/23 14:48:00 EST, Weight Dosing Start Date: 04/27/23 Status: Ordered pramipexole 1 mg oral tablet See Instructions, Take 2 tablets by mouth twice daily, # 120 tab, 6 Refill(s), Pharmacy: [place] [address], 155, cm, 05/04/23 10:37:00 EST, Height, 78.97, kg, 05/14/23 10:34:00 EST, Weight Dosing Start Date: 05/29/23 Status: Ordered pramipexole 1 mg oral tablet See Instructions, 0 Refill(s) Start Date: 04/15/23 Status: Ordered traMADol 50 mg oral tablet 50 mg = 1 tab, Oral, every 4 hr, PRN as needed for pain, # 28 tab, 0 Refill(s), Pharmacy: [place] [address], 155, cm, 05/04/23 10:37:00 EST, Height, 80, kg, 06/18/23 15:33:00 EST, Weight Dosing Start Date: 06/18/23 Status: Ordered Trelegy Ellipta 100 mcg-62.5 mcg-25 mcg/inh inhalation powder See Instructions, INHALE 1 PUFF ONCE DAILY AT THE SAME TIME EACH DAY, # 60 EA, 4 Refill(s), Pharmacy: [facility], 155, cm, 12/04/22 20:52:00 EDT, Height/Length Dosing, 69.4, kg, 12/04/22 20:52:00 EDT, Weight Dosing Start Date: 03/17/23 Status: Ordered Vitamin C 500 mg oral tablet 500 mg = 1 tab, Oral, Daily, # 90 tab, 0 Refill(s), Pharmacy: [facility], 156, cm, 03/27/22 9:33:00 EDT, [...] Overview: Added automatically from request for surgery [id number] 2Outside Source Comment: Overview: Added automatically from request for surgery [id number] Procedures Procedure Date Related Diagnosis Body Site [...] 5 year call-back 5Sisson 6right, d/t cyst [id number] with Left salpingectomy Social History Social History Type Response Smoking Status Smoking tobacco use: Current everyday tobacco user;Never; Number used per day: 1.5 PPD; entered on: 06/15/23 Sex Female History and physical note * Event Display: History and Physical Update Authored Date: [id number] Patient Care team information Care Team Personnel Name: Dilan Hernandez MD Position: Physician Member Role: Informed Provider Address: Address: [address] Care Team Related Persons Name: LIAM QUIGLEY Address: [address] [address] Address: Home [address] [place] [phone] Address: Mailing [address] [place] [phone] Name: GRACIELA COUCH Address: Home [address] [place] [phone]
--- OUTSIDE RECORDS SUMMARY | 2024-07-07 20:03 | XMS_ITS | Continuity of Care Document ---
Author Organization [facility] Address [address] [place] [address] Care Team Providers Care Furniture Sales Associate Name Role Phone Dilan Hernandez Primary Care Physician Encounter [facility] Date(s): 02/10/24 - 02/10/[address] [address] Discharge Disposition: Home or Self Care Attending [...] Inactivated Influenza 01/20/2019 Administered by NOEMÍ HERNANDEZ, [employer] 04-09-2020 2Result Comment: influenza, trivalent, adjuvanted VIS given: 03-24-2019 VIS published date: Inactivated Influenza 01/20/2019 Administered by SOWMYA MCMILLAN, [employer] 03-24-2019 3Result Comment: influenza, high dose seasonal Administered by: SULTANA 4Result Comment: William 5Result Comment: Moderna bivalent, 6+ months, blue cap 6Result Comment: influenza, high-dose, quadrivalent Patient Declined Last Modified by SOWMYA MCMILLAN [employer] 06-21-2020, 11:26 Medications Albuterol (Eqv-ProAir HFA) 90 mcg/inh inhalation aerosol 2 puffs, Inhale, every 4 hr, # 8.5 g, 6 Refill(s), Pharmacy: [facility], 155, cm, 05/04/23 10:37:00 EST, Height, 81.6, kg, 07/01/23 15:10:00 EST, Weight Dosing Start Date: 07/01/23 Status: Ordered Ativan 0.5 mg oral tablet See Instructions, Take one tablet 30-60 min prior to procedure. DO NOT DRIVE TO AND FROM APPT., # 1tab, 0 Refill(s), Pharmacy: [facility], 153.3, cm, 09/17/23 12:47:00 EDT, [...] DAILY, # 90 cap, 0 Refill(s), Pharmacy: [facility], 153.3, cm, 09/17/23 12:47:00 EDT, [...] DAILY, # 90 tab, 3 Refill(s), Pharmacy: [facility], 155, cm, 05/04/23 10:37:00 EST, Height, 81.6, kg, 07/01/23 15:10:00 EST, Weight Dosing Start Date: 07/01/23 Status: Ordered ferrous sulfate 325 mg (65 mg elemental iron) oral delayed release tablet 325 mg = 1 tab, Oral, Daily, # 90 tab, 0 Refill(s), Pharmacy: [facility], 156, cm, 03/27/22 9:33:00 EDT, [...] WHEEZING, # 360 EA, 4 Refill(s), Pharmacy: [facility], 153.3, cm, 09/17/23 12:47:00 EDT, Height, 81.5, kg, 12/17/23 9:09:00 EDT, Weight Dosing Start Date: 12/17/23 Status: Ordered omeprazole 40 mg oral delayed release capsule 40 mg = 1 cap, Oral, Daily, # 90 cap, 3 Refill(s), Pharmacy: [facility], 155, cm, 12/04/22 20:52:00 EDT, Height/Length Dosing, 69.4, kg, 12/04/22 20:52:00 EDT, Weight Dosing Start Date: 01/29/23 Status: Ordered ondansetron 8 mg oral tablet See Instructions, PRN nausea, 1 tab Oral every 6 hours as needed for nausea, # 56 tab, 0 Refill(s),Pharmacy: [facility], 153.3, cm, 09/17/23 12:47:00 EDT, Height, 81.65, kg, 09/17/23 12:54:00 EDT, Weight Dosing Start Date: 10/14/23 Status: Ordered Oxygen Therapy Supply, See instructions, # 1 EA, 0 Refill(s) Start Date: 11/19/22 Status: Ordered Ozempic 2 mg/3 mL (0.25 mg or 0.5 mg dose) subcutaneous solution 0.5 mg =, Subcutaneous, every week, rotate injection sites, # 1 EA, 2 Refill(s), Pharmacy: [facility], 153.3, cm, 09/17/23 12:47:00 EDT, Height, 81.9, kg, 02/01/24 13:10:00 EDT, Weight Dosing Start Date: 02/10/24 Status: Ordered potassium chloride 20 mEq oral tablet, extended release 20 mEq = 1 tab, Oral, Daily, # 30 tab, 0 Refill(s), Pharmacy: [facility] 4156, 153.3, cm, 09/17/23 12:47:00 EDT, Height, 81.9, kg, 02/01/24 13:10:00 EDT, Weight Dosing Start Date: 02/05/24 Status: Ordered pramipexole 1 mg oral tablet See Instructions, Take 2 tablets by mouth twice daily, # 120 tab, 6 Refill(s), Pharmacy: [place] [address], 155, cm, 05/04/23 10:37:00 EST, Height, 78.97, kg, 05/14/23 10:34:00 EST, Weight Dosing Start Date: 05/29/23 Status: Ordered semaglutide 0.5 mg/0.5 mL (0.5 mg dose) subcutaneous solution 0.5 mg =, Subcutaneous, every week, in the abdomen, thigh, or upper arm, # 2 mL, 1 Refill(s), Pharmacy: [place] [address], 153.3, cm, 09/17/23 12:47:00 EDT, Height, 81.9, kg, 02/01/24 13:10:00 EDT, Weight Dosing Start Date: 02/04/24 Stop Date: 03/31/24 Status: Ordered torsemide 10 mg oral tablet 10 mg = 1 tab, Oral, Daily, # 30 tab, 0 Refill(s), Pharmacy: [facility], 153.3, cm, 09/17/23 12:47:00 EDT, Height, 81.5, kg, 12/17/23 9:09:00 EDT, Weight Dosing Start Date: 01/12/24 Status: Ordered traMADol 50 mg oral tablet 100 mg = 2 tab, Oral, every 8 hr, PRN as needed for pain, # 168 tab, 0 Refill(s), Pharmacy: [place] [address], 154, cm, 08/21/23 11:26:00 EDT, Height, 82.7, kg, 08/27/23 8:05:00 EDT, Weight Dosing Start Date: 08/31/23 Status: Ordered Vitamin C 500 mg oral tablet 500 mg = 1 tab, Oral, Daily, # 90 tab, 0 Refill(s), Pharmacy: [facility], 156, cm, 03/27/22 9:33:00 EDT, [...] Overview: Added automatically from request for surgery [id number] 2Outside Source Comment: Overview: Added automatically from request for surgery [id number] Procedures Procedure Date Related Diagnosis Body Site [...] 5 year call-back 5[place] 6right, d/t cyst [id number] with Left salpingectomy Results Laboratory List Name Date Basic Metabolic Panel (BMP) 02/10/24 Most recent to oldest [Reference Range]: 1 BUN [7-18 mg/dL] 22 mg/dL *HI* (02/10/24 9:23 AM) Glucose Level [74-106 mg/dL] 122 mg/dL *HI* (02/10/24 9:23 AM) Potassium Level [3.5-5.1 mmol/L] 3.1 mmo l/L *LOW* (02/10/24 9:23 AM) Sodium Level [136-145 mmol/L] 140 mmol/L (02/10/24 9:23 AM) Calcium Level [8.5-10.1 mg/dL] 9.3 mg/dL (02/10/24 9:23 AM) CO2 [21-32 mmol/L] 34 mmol/L *HI* (02/10/24 9:23 AM) eGFR Non-AA [>=60] 54 *LOW* (02/10/24 9:23 AM) eGFR AA [>=60] 54 *LOW* (02/10/24 9:23 AM) Chloride Level [98-107 mmol/L] 99 mmol/L (02/10/24 9:23 AM) Creatinine Level [0.55-1.02 mg/dL] 1.09 mg/dL *HI* (02/10/24 9:23 AM) Social History Social History Type Response Smoking Status Smoking tobacco use: Current everyday tobacco user;Never; Number used per day: 1.5 PPD; entered on: 06/15/23 Sex Female Sex Representation Female (finding) History and physical note * Event Display: History and Physical Update Authored Date: [id number] Patient Care team information Care Team Personnel Name: Dilan Hernandez MD Position: Physician Member Role: Informed Provider Address: [address] [address]- Care Team Related Persons Name: LIAM QUIGLEY Name: GRACIELA COUCH Insurance Providers Guarantor name: AUBREE COUCH Health Plan Information #: 1 Payer: [employer] PPO Member Number: [id number] Policy Number: NA Health Plan Information #: 2 Payer: [employer] PPO Member Number: [id number] Policy Number: NA
--- OUTSIDE RECORDS SUMMARY | 2024-07-07 20:04 | XMS_ITS | Continuity of Care Document ---
Author Organization [facility] Address [address] [place] [address] Care Team Providers Care Paramedical Aide Name Role Phone Mickie Suero Primary Care Physicia n Encounter [facility] [id number] Date(s): 07/06/24 - 07/06/[address] [address] Discharge Disposition: Home or Self Care Attending Physician: Mickie Suero MD Admitting Physician: Mickie Suero MD Referring Physician: Mickie Suero MD Encounter Type: Outpatient Allergies, Adverse Reactions, Alerts No Known Medication Allergies Substance Criticality Severity Reaction Reaction Severity Status pregabalin High criticality Moderate Ac tive Bactrim DS High criticality Moderate Joint pain A ctive Assessment and Plan Future Appointments Future Scheduled Tests Laboratory* Thyroid Stimulating Hormone 07/06/24 * Urinalysis with Micro if Indicated and Culture if Indicated 07/06/24 Immunizations Given and Recorded Vaccine Date Status Refusal Reason RSV vaccine preF3, recombinant 07/04/24 Recorded influenza virus vaccine, inactivated 1 03/15/24 Re [...] Refuses 1Result Comment: right arm,exp 12/05/2024, lot [id number] at [facility] 2Result Comment: left arm, exp 10/28/2024, lot [id number] at [facility] 3Result Comment: influenza, high-dose, quadrivalent VIS given: 04-09-2020 VIS published date: Inactivated Influenza 01/20/2019 Administered by NOEMÍ HERNANDEZ, [place] 04-09-2020 4Result Comment: influenza, trivalent, adjuvanted VIS given: 03-24-2019 VIS published date: Inactivated Influenza 01/20/2019 Administered by SOWMYA MCMILLAN, [place] 03-24-2019 5Result Comment: influenza, high dose seasonal Administered by: SULTANA 6Result Comment: William 7Result Comment: Moderna bivalent, 6+ months, blue cap 8Result Comment: influenza, high-dose, quadrivalent Patient Declined Last Modified by SOWMYA MCMILLAN, [facility] 06-21-2020, 11:26 Medications Albuterol (Eqv-ProAir HFA) 90 mcg/inh inhalation aerosol 2 puffs, Inhale, every 4 hr, # 18 g, 6 Refill(s), Pharmacy: [facility], 153.3, cm, 09/17/23 12:47:00 EDT, Height, 80.25, kg, 02/17/24 13:55:00 EDT, Weight Dosing Start Date: 02/17/24 Status: Ordered Quantity: 18.0 Unit: g Repeat number: 7 Indication: Chronic obstructive pulmonary disease, unspecified Breztri Aerosphere 160 mcg-9 mcg-4.8 mcg/inh inhalation aerosol 2 puffs, Inhale, BID, rinse mouth and throat after use, # 10.7 g, 6 Refill(s), Pharmacy: [facility], 153.3, cm, 09/17/23 [...] DAILY, # 90 tab, 3 Refill(s), Pharmacy: [facility], 155, cm, 05/04/23 10:37:00 EST, Height, 81.6, kg, 07/01/23 15:10:00 EST, Weight Dosing Start Date: 07/01/23 Status: Ordered Quantity: 90.0 Unit: tab Repeat number: 4 ferrous sulfate 325 mg (65 mg elemental iron) oral delayed release tablet 325 mg = 1 tab, Oral, Daily, # 90 tab, 0 Refill(s), Pharmacy: [facility], 156, cm, 03/27/22 [...] WHEEZING, # 360 EA, 4 Refill(s), Pharmacy: [facility], 153.3, cm, 09/17/23 12:47:00 EDT, Height, 81.5, kg, 12/17/23 9:09:00 EDT, Weight Dosing Start Date: 12/17/23 Status: Ordered Quantity: 360.0 Unit: EA Repeat number: 5 nicotine 21 mg/24 hr transdermal film, extended release 1 patches, Transdermal, Daily, apply to skin, # 30 patches, 1 Refill(s), Pharmacy: [id number], 153.3, cm, 09/17/23 12:47:00 EDT, Height, 74, kg, 04/25/24 14:11:00 EST, Weight Dosing Start Date: 04/25/24 Status: Ordered Quantity: 30.0 Unit: patches Repeat number: 2 Indication: Nausea nicotine 4 mg oral transmucosal gum 4 mg = 1 EA, Chewed, every 2 hr, PRN as needed for smoking cessation, # 160 EA, 1 Refill(s), Pharmacy: [facility], 153.3, cm, 09/17/23 12:47:00 EDT, Height, 74, kg, 04/25/24 14:11:00 EST, Weight Dosing Start Date: 04/25/24 Status: Ordered Quantity: 160.0 Unit: EA Repeat number: 2 Indication: Nausea omeprazole 40 mg oral delayed release capsule 40 mg = 1 cap, Oral, Daily, # 90 cap, 3 Refill(s), Pharmacy: [place] [address], 155, cm, 05/24/24 22:30:00 EST, Height, 70.95, kg, 05/24/24 22:31:00 EST, Weight Dosing Start Date: 05/27/24 Status: Ordered Quantity: 90.0 Unit: cap Repeat number: 4 ondansetron 8 mg oral tablet See Instructions, PRN nausea, 1 tab Oral every 6 hours as needed for nausea, # 56 tab, 1 Refill(s),Pharmacy: [facility], 153.3, cm, 09/17/23 12:47:00 EDT, Height, 74, kg, 04/25/24 14:11:00 EST, Weight Dosing Start Date: 04/25/24 Status: Ordered Quantity: 56.0 Unit: tab Repeat number: 2 Indication: Nausea Oxygen Therapy Supply, See instructions, # 1 EA, 0 Refill(s) Start Date: 11/19/22 Status: Ordered Quantity: 1.0 Unit: EA Repeat number: 1 potassium bicarbonate 20 mEq oral tablet, effervescent 20 mEq = 1 tab, Oral, BID, dissolve in water or juice, # 60 tab, 1 Refill(s), Pharmacy: [facility], 153.3, cm, 09/17/23 12:47:00 EDT, Height, 80.25, kg, 02/17/24 13:55:00 EDT, Weight Dosing Start Date: 02/17/24 Status: Ordered Quantity: 60.0 Unit: tab Repeat number: 2 pramipexole 1 mg oral tablet See Instructions, Take 1 tablets by mouth QAM and two tablets QPM, # 90 tab, 6 Refill(s), Pharmacy:[facility], 153.3, cm, 09/17/23 12:47:00 EDT, Height, 80.25, kg, 02/17/24 13:55:00 EDT, Weight Dosing Start Date: 02/24/24 Status: Ordered Quantity: 90.0 Unit: tab Repeat number: 7 semaglutide 1.7 mg/0.75 mL (1.7 mg dose) subcutaneous solution 1.7 mg =, Subcutaneous, every week, in the abdomen, thigh, or upper arm, # 3 mL, 0 Refill(s), Pharmacy: [facility], 148.6, cm, 07/06/24 8:16:00 EST, Height, 67.75, kg, 07/06/24 8:27:00 EST, Weight Dosing Start Date: 07/06/24 Stop Date: 08/03/24 Status: Ordered Quantity: 3.0 Unit: mL Repeat number: 1 spironolactone 25 mg oral tablet 25 mg = 1 tab, Oral, Daily, # 90 tab, 0 Refill(s), Pharmacy: [place] [address], 148.6, cm, 07/06/24 8:16:00 EST, Height, 67.75, kg, 07/06/24 8:27:00 EST, Weight Dosing Start Date: 07/06/24 Stop Date: 10/04/24 Status: Ordered Quantity: 90.0 Unit: tab Repeat number: 1 torsemide 20 mg oral tablet 40 mg = 2 tab, Oral, Daily, # 60 tab, 1 Refill(s), Pharmacy: [facility], 153.3, cm, 09/17/23 12:47:00 EDT, Height, 74, kg, 04/25/24 14:11:00 EST, Weight Dosing Start Date: 05/17/24 Status: Ordered Quantity: 60.0 Unit: tab Repeat number: 2 Vitamin C 500 mg oral tablet 500 mg = 1 tab, Oral, Daily, # 90 tab, 0 Refill(s), Pharmacy: [facility], 156, cm, 03/27/22 9:33:00 EDT, Height/Length [...] Confirmed Active Gastroesophageal reflux disease Confirmed Active (HFpEF) heart failure with preserved ejection fraction Confirmed Active Right hip pain Confirmed Active 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 Unilateral hydronephrosis 2 Confirmed 09/11/22 Active Hypokalemia Confirmed Active Hyponatremia Confirmed Active Insomnia Confirmed Active Low back pain Confirmed 10/02/20 Active Lumbar spondylosis 3 Confirmed 10/02/20 Active Lumbosacral radiculopathy Confirmed Active Mixed urinary incontinence Confirmed Active Nicotine dependence Confirmed Active Class 1 obesity Confirmed Active Peptic ulcer Confirmed Active Prediabetes Confirmed Active Pyloric stenosis Confirmed 01/19/19 Active Recurrent UTI (urinary tract infection) Confirmed Active Restless legs Confirmed 03/05/20 Active Hypoxemia associated with sleep Confirmed Active Tobacco user Confirmed Active 1Outside Source Comment: Overview: Added automatically from request for surgery [id number] 2Right hydronephrosis 3Outside Source Comment: Overview: Added automatically from request for surgery [id number] Procedures Procedure Date Related Diagnosis Body Site [...] sided diverticulosis, polyp; 05/17/2009, 5 year call-back 6[place] 7right, d/t cyst [id number] with Left salpingectomy Results Laboratory List Name Date Basic Metabolic Panel (BMP) 07/06/24 Most recent to oldest [Reference Range]: 1 BUN [7-18 mg/dL] 19 mg/dL *HI* (07/06/24 9:02 AM) Glucose Level [74-106 mg/dL] 118 mg/dL *HI* (07/06/24 9:02 AM) Potassium Level [3.5-5.1 mmol/L] 3.5 mmo l/L (07/06/24 9:02 AM) Sodium Level [136-145 mmol/L] 135 mmol/L *LOW* (07/06/24 9:02 AM) Calcium Level [8.5-10.1 mg/dL] 9.5 mg/dL (07/06/24 9:02 AM) CO2 [21-32 mmol/L] 38 mmol/L *HI* (07/06/24 9:02 AM) eGFR Non-AA [>=60] 52 *LOW* (07/06/24 9:02 AM) eGFR AA [>=60] 52 *LOW* (07/06/24 9:02 AM) Chloride Level [98-107 mmol/L] 95 mmol/L *LOW* (07/06/24 9:02 AM) Creatinine Level [0.55-1.02 mg/dL] 1.12 mg/dL *HI* (07/06/24 9:02 AM) Social History Social History Type Response Tobacco Current everyday tob acco user Tobacco Use:. 1.5 packs per day per day. Sex Female Sex Representation Female (finding) History and physical note * Event Display: History and Physical Update Authored Date: [id number] Patient Care team information Care Team Personnel Name: Mickie Suero MD Position: Physician Member Role: Informed Provider Address: [address] [place] [address]- [place] Telecom: Care Team Related Persons Name: LIAM QUIGLEY Name: GRACIELA COUCH Insurance Providers Guarantor name: AUBREE COUCH Health Plan Information #: 1 Payer: [employer] PPO Member Number: [id number] Policy Number: NA Group Number: NA Health Plan Information #: 2 Payer: [employer] PPO Member Number: [id number] Policy Number: NA Group Number: NA
--- OUTSIDE RECORDS SUMMARY | 2024-07-07 20:04 | XMS_ITS | Continuity of Care Document ---
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 Role Phone Dilan Hernandez Primary Care Physician [phone] Encounter [facility] [id number] Date(s): 03/27/22 - 03/27/[address] [address] Encounter Diagnosis Bronchitis(Discharge Diagnosis) - 03/27/22 Bronchitis, not specified as acute or chronic(Final) - Discharge Disposition: Home or Self Care Attending Physician: Panda Waldron MD Admitting Physician: Panda Waldron MD Allergies, Adverse Reactions, Alerts No Known Medication Allergies Assessment and Plan Future Appointments Future Scheduled Tests Laboratory* Cortisol [facility] 11/11/21 Functional Status 03/27/22 Family Member Travel History No recent t ravel Recent Travel History No recent travel Other exposure to Infectious Disease Non e Immunizations Given and Recorded Vaccine Date Status Refusal Reason influenza virus vaccine, live 04/30/21 Recorded influenza virus vaccine, live 03/16/18 Recorded influenza virus vaccine, live 05/25/15 Recorded SARS-CoV-2 (COVID-19) mRNA-1273 vaccine 09/17/20 R ecorded SARS-CoV-2 (COVID-19) mRNA-1273 vaccine 08/21/20 R ecorded influenza, unspecified formulation 1 04/09/20 Mika rded influenza, unspecified formulation 2 03/24/19 Mika rded influenza, unspecified formulation 3 05/09/16 Mika rded tetanus-diphth toxoids (Td) adult/adol [...] Mika rded zoster vaccine live 10/06/12 Recorded pneumococcal 23-polyvalent vaccine 08/14/08 Record ed rubella virus vaccine 06/08/00 Recorded hepatitis B adult vaccine 06/08/00 Recorded measles/mumps/rubella virus vaccine 06/08/00 Recor ded varicella virus vaccine 06/08/00 Recorded Not Given Vaccine Date Status Refusal Reason influenza, unspecified formulation 4 01/29/22 Not Given Patient Refuses 1Result Comment: influenza, high-dose, quadrivalent VIS given: 04-09-2020 VIS published date: Inactivated Influenza 01/20/2019 Administered by NOEMÍ HERNANDEZ, Case Preparer And Liner 04-09-2020 2Result Comment: influenza, trivalent, adjuvanted VIS given: 03-24-2019 VIS published date: Inactivated Influenza 01/20/2019 Administered by SOWMYA MCMILLAN, Case Preparer And Liner 03-24-2019 3Result Comment: influenza, high dose seasonal Administered by: SULTANA 4Result Comment: influenza, high-dose, quadrivalent Patient Declined Last Modified by SOWMYA MCMILLAN Case Preparer And Liner 06-21-2020, 11:26 Medications Albuterol (Eqv-ProAir HFA) 90 mcg/inh inhalation aerosol 2 puffs, Inhale, every 4 hr, # 8.5 g, 6 Refill(s), Pharmacy: [id number] Start Date: 03/26/22 Status: Ordered Albuterol (Eqv-ProAir HFA) 90 mcg/inh inhalation aerosol 2 puffs, Inhale, every 4 hr, PRN other (see comment), NEEDED Start Date: 11/11/21 Status: Ordered azithromycin 250 mg oral tablet See Instruction, Oral, Daily, take 2 tabs on day 1 and 1 tabs on day 2-5, # 6 tab, 0 Refill(s), Pharmacy: [id number], 156, cm, 03/27/22 9:33:00 EDT, Height/Length Dosing, 68.04, kg, 03/27/22 9:33:00 EDT, Weight Dosing Start Date: 03/27/22 Status: Ordered ferrous gluconate 324 mg (38 mg elemental iron) oral tablet 324 mg = 1 tab, Oral, Daily, 0 Refill(s) Start Date: 11/11/21 Status: Ordered omeprazole 40 mg oral delayed release capsule 40 mg = 1 cap, Oral, Daily, 0 Refill(s) Start Date: 11/11/21 Status: Ordered Trelegy Ellipta 100 mcg-62.5 mcg-25 mcg/inh inhalation powder 1 puffs, Inhale, Daily, at the same time every day, # 60 EA, 6 Refill(s), Pharmacy: [id number] Start Date: 03/26/22 Status: [...] 5 year call-back 5Sisson 6right, d/t cyst 71996/1982 with Left salpingectomy Vital Signs Most recent to oldest [Reference Range]: 1 2 Temperature Temporal Artery [36-38 Deg C ] 35.8 Deg C *LOW* (03/27/22 9:31 AM) Peripheral Pulse Rate [60-100 bpm] 73 bp m (03/27/22 10:30 AM) 76 bpm (03/27/22 9:31 AM) Respiratory Rate [12-24 br/min] 22 br/mi n (03/27/22 10:30 AM) 20 br/min (03/27/22 9:31 AM) Blood Pressure [90-140/60-90 mmHg] 121/6 1mmHg (03/27/22 10:30 AM) 107/64mmHg (03/27/22 9:31 AM) Mean Arterial Pressure, Cuff [65-140 mmH g] 81 mmHg (03/27/22 10:30 AM) Weight Dosing 68.04 kg (03/27/22 9:33 AM) Weight Estimated 68.04 kg (03/27/22 9:31 AM) Height/Length Dosing 156.000 cm (03/27/22 9:33 AM) Height/Length Estimated 156.000 cm (03/27/22 9:31 AM) Social History Social History Type Response Smoking Status Smoking tobacco use: Current everyday tobacco user;Never; Number used per day: 1.5 PPD; entered on: 03/27/22 Sex Female Hospital Discharge Instructions Patient Education 03/27/2022 09:51:05 Acute Bronchitis, Adult Acute Bronchitis, Adult Acute bronchitis is sudden or acute swelling of the air tubes (bronchi) in the lungs. Acute bronchitis causes these tubes to fill with mucus, which can make it hard to breathe. It can also cause coughing or wheezing. In adults, acute bronchitis usually goes away within 2 weeks. A cough caused by bronchitis may lastup to 3 weeks. Smoking, allergies, and asthma can make the condition worse. What are the causes? This condition can be caused by germs and by substances that irritate the lungs, including: ??? Cold and flu viruses. The most common cause of this condition is the virus that causes the common cold. ??? Bacteria. ??? Substances that irritate the lungs, including: ??? Smoke from cigarettes and other forms of tobacco. ??? Dust and pollen. ??? Fumes from chemical products, gases, or burned fuel. ??? Other materials that pollute indoor or outdoor air. ??? Close contact with someone who has acute bronchitis. What increases the risk? The following factors may make you more likely to develop this condition: ??? A weak body's defense system, also called the immune system. ??? A condition that affects your lungs and breathing, such as asthma. What are the signs or symptoms? Common symptoms of this condition include: ??? Lung and breathing problems, such as: ??? Coughing. This may bring up clear, yellow, or green mucus from your lungs (sputum). ??? Wheezing. ??? Having too much mucus in your lungs (chest congestion). ??? Having shortness of breath. ??? A fever. ??? Chills. ??? Aches and pains, including: ??? Tightness in your chest and other body aches. ??? A sore throat. How is this diagnosed? This condition is usually diagnosed based on: ??? Your symptoms and medical history. ??? A physical exam. You may also have other tests, including tests to rule out other conditions, such as pneumonia. These tests include: ??? A test of lung function. ??? Test of a mucus sample to look for the presence of bacteria. ??? Tests to check the oxygen level in your blood. ??? Blood tests. ??? Chest X-ray. How is this treated? Most cases of acute bronchitis clear up over time without treatment. Your health care provider may recommend: ??? Drinking more fluids. This can thin your mucus, which may improve your breathing. ??? Using a device that gets medicine into your lungs (inhaler) to help improve breathing and control coughing. ??? Using a vaporizer or a humidifier. These are machines that add water to the air to help you breathe better. ??? Taking a medicine for a fever. ??? Taking a medicine that thins mucus and clears congestion (expectorant). ??? Taking a medicine that prevents or stops coughing (cough suppressant). Follow these instructions at home: Activity ??? Get plenty of rest. ??? Return to your normal activities as told by your health care provider. Ask your health care provider what activities are safe for you. Lifestyle ??? Drink enough fluid to keep your urine pale yellow. ??? Do not drink alcohol. ??? Do not use any products that contain nicotine or tobacco, such as cigarettes, e-cigarettes, andchewing tobacco. If you need help quitting, ask your health care provider. Be aware that: ??? Your bronchitis will get worse if you smoke or breathe in other people's smoke (secondhand smoke). ??? Your lungs will heal faster if you quit smoking. General instructions ??? Take lroj-nvl-jvklnwf and prescription medicines only as told by your health care provider. ??? Use an inhaler, vaporizer, or humidifier as told by your health care provider. ??? If you have a sore throat, gargle with a salt-water mixture 3???4 times a day or as needed. To make a salt-water mixture, completely dissolve ?1 tsp (3???6 g) of salt in 1 cup (237 mL) of warm water. ??? Take two teaspoons of honey at bedtime to lessen coughing at night. ??? Keep all follow-up visits as told by your health care provider. This is important. How is this prevented? To lower your risk of getting this condition again: ??? Wash your hands often with soap and water. If soap and water are not available, use hand rn cvicu. ??? Avoid contact with people who have cold symptoms. ??? Try not to touch your mouth, nose, or eyes with your hands. ??? Avoid places where there are fumes from chemicals. Breathing these fumes will make your condition worse. ??? Get the flu shot every year. Contact a health care provider if: ??? Your symptoms do not improve after 2 weeks of treatment. ??? You vomit more than once or twice. ??? You have symptoms of dehydration such as: ??? Dark urine. ??? Dry skin or eyes. ??? Increased thirst. ??? Headaches. ??? Confusion. ??? Muscle cramps. Get help right away if you: ??? Cough up blood. ??? Feel pain in your chest. ??? Have severe shortness of breath. ??? Faint or keep feeling like you are going to faint. ??? Have a severe headache. ??? Have fever or chills that get worse. These symptoms may represent a serious problem that is an emergency. Do not wait to see if the symptoms will go away. Get medical help right away. Call your local emergency services (911 in the [place] Do not drive yourself to the hospital. Summary ??? Acute bronchitis is sudden (acute) inflammation of the air tubes (bronchi) between the windpipeand the lungs. In adults, acute bronchitis usually goes away within 2 weeks, although coughing may last 3 weeks or longer. ??? Take mdpl-dvu-rauukcj and prescription medicines only as told by your health care provider. ??? Drink enough fluid to keep your urine pale yellow. ??? Contact a health care provider if your symptoms do not improve after 2 weeks of treatment. ??? Get help right away if you cough up blood, faint, or have chest pain or shortness of breath. This information is not intended to replace advice given to you by your health care provider. Make sure you discuss any questions you have with your health care provider. Document Revised: 04/24/2021 Document Reviewed: 12/16/2019 [employer] Patient Education ?? 2021 [employer]. Follow Up Care 03/27/2022 09:31:49 With:Follow up with primary care provider Address: When:1 to 2 days Comments:You been seen in the emergency department and no emergent medical condition has been identified. ??It is recommended that you follow-up with your primary care provider within the next??48 hours. ??Ifyour condition worsens or you are unable to??arrange for appropriate follow-up please??reach out tothe emergency department by phone or return to the emergency department for repeat evaluation. Patient Care team information Personnel Name: Dilan Hernandez MD Address: Address: [address] [address]- [place]
--- OUTSIDE RECORDS SUMMARY | 2024-07-07 20:04 | XMS_ITS | Continuity of Care Document ---
Author Organization [facility] Address [address] [place] [address] Care Team Providers Care Pega Developer Name Role Phone Dilan Hernandez Primary Care Physician [phone] Encounter [facility] Date(s): 04/02/23 - 04/02/[address] [address] Encounter Diagnosis Pyelonephritis(Discharge Diagnosis) - 04/02/23 Discharge Disposition: Home or Self Care Attending Physician: Yumiko Ghosh MD Admitting Physician: Yumiko Ghosh MD Allergies, Adverse Reactions, Alerts No Known Medication Allergies Assessment and Plan Future Appointments Diagnostic Tests Pending * Blood Culture 04/02/23 * Blood Culture 04/02/23 * Urine Culture 04/02/23 Future Scheduled Tests Laboratory* Basic Metabolic Panel 09/29/22 * Hemoglobin A1c 09/29/22 Functional Status 04/02/23 Family Member Travel History No recent t [...] Inactivated Influenza 01/20/2019 Administered by NOEMÍ HERNANDEZ Thread Inspector 04-09-2020 2Result Comment: influenza, trivalent, adjuvanted VIS given: 03-24-2019 VIS published date: Inactivated Influenza 01/20/2019 Administered by SOWMYA MCMILLAN Thread Inspector 03-24-2019 3Result Comment: influenza, high dose seasonal Administered by: SULTANA 4Result Comment: William 5Result Comment: influenza, high-dose, quadrivalent Patient Declined Last Modified by SOWMYA MCMILLAN Thread Inspector 06-21-2020, 11:26 Medications Albuterol (Eqv-ProAir HFA) 90 mcg/inh inhalation aerosol 2 puffs, Inhale, every 4 hr, # 8.5 g, 6 Refill(s), Pharmacy: [facility], 156, cm, 03/27/22 9:33:00 EDT, Height/Length Dosing, 68.04, kg, 03/27/22 9:33:00 EDT, Weight Dosing Start Date: 09/29/22 Status: Ordered Ativan 0.5 mg oral tablet See Instructions, take 30-60 minutes prior to procedure., # 1 tab, 0 Refill(s), Pharmacy: [facility], 156, cm, 03/27/22 9:33:00 EDT, Height/Length Dosing, 68.04, kg, 03/27/22 9:33:00 EDT, Weight Dosing Start Date: 09/29/22 Status: Ordered Cipro 500 mg oral tablet 500 mg = 1 tab, Oral, every 12 hr, X 7 days, # 14 tab, 0 Refill(s), 04/09/23 12:51:00 PM CDT, Pharmacy: [facility], 152, cm, 04/02/23 10:46:00 EDT, Height/Length Dosing, 72.57, kg, 04/02/2310:46:00 EDT, Weight Dosing Start Date: 04/02/23 Stop Date: 04/09/23 Status: Ordered COPD J44.1 COPD J44.1, Please include tubing and mouthpiece, Supply, See instructions, # 1 EA, 0 Refill(s) Start Date: 12/15/22 Status: Ordered escitalopram 10 mg oral tablet 10 mg = 1 tab, Oral, Daily, TAKE 1 TABLET BY MOUTH ONCE DAILY, # 90 tab, 3 Refill(s), Pharmacy: [facility], 156, cm, 03/27/22 9:33:00 EDT, Height/Length Dosing, 68.04, kg, 03/27/22 9:33:00EDT, Weight Dosing Start Date: 05/12/22 Status: Ordered ferrous sulfate 325 mg (65 mg elemental iron) oral delayed release tablet 325 mg = 1 tab, Oral, Daily, # 90 tab, 0 Refill(s), Pharmacy: [facility], 156, cm, 03/27/22 9:33:00 EDT, Height/Length Dosing, 68.04, kg, 03/27/22 9:33:00 EDT, Weight Dosing Start Date: 08/15/22 Status: Ordered ipratropium-albuterol 0.5 mg-2.5 mg/3 mL inhalation solution 3 mL, NEB, every 4 hr, PRN as needed for shortness of breath or wheezing, COPD J44.1, # 180 mL, 3 Refill(s), Pharmacy: [facility], 155, cm, 12/04/22 20:52:00 EDT, Height/Length Dosing, 69.4, kg, 12/04/22 20:52:00 EDT, Weight Dosing Start Date: 03/05/23 Status: Ordered omeprazole 40 mg oral delayed release capsule 40 mg = 1 cap, Oral, Daily, # 90 cap, 3 Refill(s), Pharmacy: [facility], 155, cm, 12/04/22 20:52:00 [...] DAY, # 60 EA, 4 Refill(s), Pharmacy: [facility], 155, cm, 12/04/22 20:52:00 EDT, Height/Length Dosing, 69.4, kg, 12/04/22 20:52:00 EDT, Weight Dosing Start Date: 03/17/23 Status: Ordered Vitamin C 500 mg oral tablet 500 mg = 1 tab, Oral, Daily, # 90 tab, 0 Refill(s), Pharmacy: [facility], 156, cm, 03/27/22 9:33:00 [...] Overview: Added automatically from request for surgery [id number] 2Outside Source Comment: Overview: Added automatically from request for surgery [id number] Procedures Procedure Date Related Diagnosis Body Site [...] 5 year call-back 5Sisson 6right, d/t cyst [id number] with Left salpingectomy Results Laboratory List Name Date Urinalysis Microscopic 04/02/23 Urinalysis with Micro if Indicated and C ulture if Indicated 04/02/23 CBC w/ Diff 04/02/23 Comprehensive Metabolic Panel (CMP) 03/09 11/28 Procalcitonin 04/02/23 SARS-CoV-2 (COVID-19)/Flu/RSV ([facility] ) (COVID-19/Flu/RSV ([facility]Xpert)) 04/02/23 Automated Diff 04/02/23 Most recent to oldest [Reference Range]: 1 WBC [5.0-10.0 x10^3/mcL] 13.5 x10^3/mcL *HI* (04/02/23 11:31 AM) RBC [4.1-5.3 x10^6/mcL] 4.0 x10^6/mcL *LOW* (04/02/23 11:31 AM) Neutro Auto [40.0-75.0 %] 68.3 % (04/02/23 11: AM) Lymph Auto [20.0-50.0 %] 20.5 % (04/02/23 11: AM) [place] Auto [2.0-15.0 %] 9.2 % (04/02/23 11: AM) Basophil Auto [0.0-1.0 %] 0.4 % (04/02/23 11:31 AM) BUN [7-18 mg/dL] 19 mg/dL *HI* (04/02/23 11:31 AM) UA Color Yellow (04/02/23 12:19 PM) UA WBC [0-3] 10-25 *ABN* (04/02/23 12:19 PM) Glucose Level [74-106 mg/dL] 119 mg/dL *HI* (04/02/23 11:31 AM) Potassium Level [3.5-5.1 mmol/L] 3.6 mmo l/L (04/02/23 11:31 AM) MCV [80.0-96.0 fL] 91.3 fL (04/02/23 11:31 AM) UA Urobilinogen Normal (04/02/23 12:19 PM) UA Bili [Negative] Negative (04/02/23 12: PM) UA Ketones Negative (04/02/23 12:19 PM) AST [15-37 unit/L] 20 unit/L (04/02/23 11:31 AM) ALT [14-59 unit/L] 29 unit/L (04/02/23 11:31 AM) MCHC [31.0-35.0 g/dL] 34.3 g/dL (04/02/23 11: AM) Sodium Level [136-145 mmol/L] 132 mmol/L *LOW* (04/02/23 AM) UA RBC [0-2] 3-5 (04/02/23: PM) UA Leuk Est 1+ *ABN* (04/02/23 PM) UA Nitrite Positive *ABN* (04/02/23 PM) UA Glucose [Negative] Negative (04/02/23 PM) Hct [37.0-47.0 %] 36.7 % *LOW* (04/02/23 AM) UA Bacteria Moderate /HPF *ABN* (04/02/23 PM) Calcium Level [8.5-10.1 mg/dL] 8.9 mg/dL (04/02/23 AM) Albumin Level [3.4-5.0 g/dL] 3.2 g/dL *LOW* (04/02/23 AM) Protein Total [6.4-8.2 g/dL] 6.7 g/dL (04/02/23: AM) UA Protein 2+ *ABN* (04/02/23: PM) MCH [26.0-32.0 pg] 31.3 pg (04/02/23 AM) Neutro Absolute 9.2 x10^3/mcL *NA* (04/02/23: AM) Bilirubin Total [0.2-1.0 mg/dL] 0.3 mg/d L (04/02/23: AM) Hgb [12.0-16.0 g/dL] 12.6 g/dL (04/02/23: AM) Alk Phos [46-146 unit/L] 82 unit/L (04/02/23 AM) UA Blood 2+ *ABN* (04/02/23 PM) UA Mucous None Seen /HPF (04/02/23 12: PM) UA Spec Grav 1.020 *NA* (04/02/23: PM) Platelets [130-450 x10^3/mcL] 279 x10^3/ mcL (04/02/23 11:31 AM) CO2 [21-32 mmol/L] 26 mmol/L (04/02/23 11:31 AM) UA Squam Epithelial [None Seen] Few *ABN* (04/02/23 12:19 PM) UA pH 5.5 *NA* (04/02/23 12:19 PM) eGFR Non-AA [>=60] 69 (04/02/23 11:31 AM) eGFR AA [>=60] 69 (04/02/23 11:31 AM) UA Appear Cloudy *ABN* (04/02/23 12:19 PM) Chloride Level [98-107 mmol/L] 98 mmol/L (04/02/23 11:31 AM) Procalcitonin [0.00-0.50 ng/mL] 0.81 ng/ mL *HI* (04/02/23 11:31 AM) RDW-CV [11.5-14.5 %] 13.3 % (04/02/23 11: AM) Imm Gran Auto [0.0-0.9 %] 0.6 % (04/02/23 11:31 AM) UA Culture Ind?. Indicated (04/02/23 12:19 PM) Creatinine Level [0.55-1.02 mg/dL] 0.89 mg/dL (04/02/23 11:31 AM) SARS-CoV-2(Covid19)PCR([facility] COVFLURSV) [Negative] Negative (04/02/23 11:31 AM) Flu A ([facility] COVFLURSV) [Negative] Nega tive (04/02/23 11:31 AM) RSV ([facility] COVFLURSV) [Negative] Negati ve (04/02/23 11:31 AM) Flu B ([facility]pert COVFLURSV) [Negative] Nega tive (04/02/23 11:31 AM) Eos, Auto [1.0-6.0 %] 1.0 % (04/02/23 11:31 AM) Vital Signs Most recent to oldest [Reference Range]: 1 2 3 Temperature Temporal Artery [36-38 Deg C] 36.3 Deg C (04/02/23 10:41 AM) Peripheral Pulse Rate [60-100 bpm] 71 bpm (04/02/23 1:50 PM) 91 bpm (04/02/23 1:34 PM) 67 bpm (04/02/23 1:02 PM) Heart Rate Monitored [60-100 bpm] 86 bpm (04/02/23 12:50 PM) Respiratory Rate [12-24 br/min] 22 br/min (04/02/23 1:50 PM) 21 br/min (04/02/23 1:34 PM) 22 br/min (04/02/23 1:02 PM) Blood Pressure [90-140/60-90 mmHg] 143/60mmHg *HI* (04/02/23 1:50 PM) 127/80mmHg (04/02/23 1:34 PM) 125/57mmHg (04/02/23 1:02 PM) Mean Arterial Pressure, Cuff [65-140 mmHg] 80 mmHg (04/02/23 1:02 PM) 80 mmHg (04/02/23 11:42 AM) 74 mmHg (04/02/23 10:41 AM) Weight Dosing 72.57 kg (04/02/23 10:46 AM) Weight Estimated 72.57 kg (04/02/23 10:41 AM) Height/Length Dosing 152.000 cm (04/02/23 10:46 AM) Height/Length Estimated 152.000 cm (04/02/23 10:41 AM) Social History Social History Type Response Smoking Status Smoking tobacco use: Current everyday tobacco user;Never; Number used per day: 1.5 PPD; entered on: 04/02/23 Sex Female Hospital Discharge Instructions Patient Education 04/02/2023 12:48:00 Pyelonephritis, Adult Pyelonephritis, Adult Pyelonephritis is an infection that occurs in the kidney. The kidneys are the organs that filter a person's blood and move waste out of the bloodstream and into the urine. Urine passes from the kidneys, through tubes called ureters, and into the bladder. There are two main types of pyelonephritis: ??? Infections that come on quickly without any warning (acute pyelonephritis). ??? Infections that last for a long period of time (chronic pyelonephritis). In most cases, the infection clears up with treatment and does not cause further problems. More severe infections or chronic infections can sometimes spread to the bloodstream or lead to other problems with the kidneys. What are the causes? This condition is usually caused by: ??? Bacteria traveling from the bladder up to the kidney. This may occur after having a bladder infection (cystitis) or urinary tract infection (UTI). ??? Bladder infections caused from bacteria traveling from the bloodstream to the kidney. What increases the risk? This condition is more likely to develop in: ??? women. ??? Older people. ??? People who have any of these conditions: ??? Diabetes. ??? Inflammation of the prostate gland (prostatitis), in males. ??? Kidney stones or bladder stones. ??? Other abnormalities of the kidney or ureter. ??? Cancer. ??? People who have a catheter placed in the bladder. ??? People who are sexually active. ??? Women who use spermicides. ??? People who have had a prior UTI. What are the signs or symptoms? Symptoms of this condition include: ??? Frequent urination. ??? Strong or persistent urge to urinate. ??? Burning or stinging when urinating. ??? Abdominal pain. ??? Back pain. ??? Pain in the side or flank area. ??? Fever or chills. ??? Blood in the urine, or dark urine. ??? Nausea or vomiting. How is this diagnosed? This condition may be diagnosed based on: ??? Your medical history and a physical exam. ??? Urine tests. ??? Blood tests. You may also have imaging tests of the kidneys, such as an ultrasound or CT scan. How is this treated? Treatment for this condition may depend on the severity of the infection. ??? If the infection is mild and is found early, you may be treated with antibiotic medicines takenby mouth (orally). You will need to drink fluids to remain hydrated. ??? If the infection is more severe, you may need to stay in the hospital and receive antibiotics given directly into a vein through an IV. You may also need to receive fluids through an IV if you are not able to remain hydrated. After your hospital stay, you may need to take oral antibiotics for aperiod of time. Other treatments may be required, depending on the cause of the infection. Follow these instructions at home: Medicines ??? Take your antibiotic medicine as told by your health care provider. Do not stop taking the antibiotic even if you start to feel better. ??? Take ilmt-zry-yhbsant and prescription medicines only as told by your health care provider. General instructions ??? Drink enough fluid to keep your urine pale yellow. ??? Avoid caffeine, tea, and carbonated beverages. They tend to irritate the bladder. ??? Urinate often. Avoid holding in urine for long periods of time. ??? Urinate before and after sex. ??? After a bowel movement, women should cleanse from front to back. Use each tissue only once. ??? Keep all follow-up visits as told by your health care provider. This is important. Contact a health care provider if: ??? Your symptoms do not get better after 2 days of treatment. ??? Your symptoms get worse. ??? You have a fever. Get help right away if you: ??? Are unable to take your antibiotics or fluids. ??? Have shaking chills. ??? Vomit. ??? Have severe flank or back pain. ??? Have extreme weakness or fainting. Summary ??? Pyelonephritis is a urinary tract infection (UTI) that occurs in the kidney. ??? Treatment for this condition may depend on the severity of the infection. ??? Take your antibiotic medicine as told by your health care provider. Do not stop taking the antibiotic even if you start to feel better. ??? Drink enough fluid to keep your urine pale yellow. ??? Keep all follow-up visits as told by your health care provider. This is important. This information is not intended to replace advice given to you by your health care provider. Make sure you discuss any questions you have with your health care provider. Document Revised: 01/02/2022 Document Reviewed: 01/02/2022 [employer] Patient Education ?? 2022 [employer]. Follow Up Care 04/02/2023 10:41:33 With:Primary Care Physician Address: When:1 to 2 weeks only if needed Physician Emergency department Note * Yumiko Ghosh MD: PERFORM Event Display: ED Note Physician Authored Date: [id number] AUBREE COUCH :1950 Age:73 years Sex:Female Visit Date:04/02/2023 Primary Care Physician: Dilan Hernandez MD Basic Information Time Seen: Yumiko Ghosh MD / 04/02/2023 10:55 Chief Complaint I had a spell last night where I was really cold for about an hour, and SOB my pulse ox was 79%. Iwas shaking so bad. PT states I was in the ICU the first week of september but I don't know why. PT denies CP , but states SOB. COVID - this week History Of Present Illness: Patient w/ h/o copd, anxiety, gerd, insomnia, peptic ulcer, tobacco dependence,??presents to the EDafter an episode of chills yesterday. Pt reports several months of stable shortness of breath sincejerrell was d/gaudencio from a hospital in [facility] 6 months ago (says spent 4 days in the ICU, not sure of the diagnosis, went home with new medication Lyrica that she is not taking). She does have inhalers. ??She continues to smoke.??She says yesterday around 4:30pm she had some chills and shaking for about an hour. This has resolved but this morning she??noted her saturation was 79%. ??No fever.?Cough is at baseline. No n/v/c/d. Pt is here because she says in September when she went to the hospital her initial symptoms were also chills. Physical Exam Vitals & Measurements T:??36.3?C ??(Temporal Artery)?? HR:??71??(Peripheral)?? RR:??22?? BP:??143/60?? SpO2:??94%?? HT:??152.000??cm?? WT:??72.57??kg??(Estimated)?? O2 Therapy:??Room air?? General: A&Ox3, Calm, no apparent distress, well developed, pleasant and cooperative ?? HEENT: Head ATNC. Eyes: MELISSA. Extraocular Mobility: intact and symmetrical. Conjunctiva: non-injected, anicteric, no discharge. Oral Cavity: moist. Neck: no masses, no crepitus. Lymph Nodes: no cervical lymphadenopathy? Respiratory: CTA bilaterally, no wheezing, no rales/crackles? CV: RRR, normal S1, normal S2, no murmurs, rubs or gallops ?? Abdomen : soft, non-tender, non-distended, no rebound or guarding, no hepatosplenomegaly ?? Extremities: no le swelling, warm and well-perfused, no cyanosis, capillary refill <2 seconds? Skin: no rash, no lesions, no bruising? Neuro: normal tone, normal strength in all 4 extremities, sensation intact?? Medical Decision Making: Patient w/ h/o copd, anxiety, gerd, insomnia, peptic ulcer, tobacco dependence,??presents to the EDafter an episode of chills yesterday, resolved, but noted saturation of 79% at home this morning. Patient is well nontoxic-appearing with reassuring vital signs,??she is??speaking in full sentences,??alert and oriented x3, currently satting 93% on room air.?? Her blood pressure is soft??but she is afebrile??with no immediate concern for sepsis clinically. Her blood pressure during her last ED visit on 12/04 was similarly low at 104/55. Chart review shows admission at [facility] in the setting of fever and severe choreiformmovements. Pt initially given Haldol, Ativan, and placed on Precedex for these movements, CT and LPunremarkable. ID recommended discontinuing Abx which had been started. CT showed mottled enhancement of the left mid to upper kidney w/ edema or partial infarct. Cultures negative. Pt seen by urologyand cleared for d/c. Placed on Lyrica for possible neuropathy. ?? She does not have any choreiform movements at this time. She is afebrile. She is satting 93% on ra.There is mild wheezing heard on lung exam. ?? Plan: labs, UA, CXR, nebs, monitor and r/a Labs with mild leukocytosis,??mild hyponatremia.?? Renal function is at baseline.?? Chest x-ray with no acute findings, changes??consistent with chronic bronchitis. UA??with evident infection In light of leukocytosis,??infected urine??and reported chills yesterday, this is concerning for pyelonephritis The patient's respiratory status was monitored throughout??and there is no??clear evidence of COPD exacerbation??or pneumonia today She was given??1 g of ceftriaxone IV??and will go home??with a 7-day course of Cipro Discharge instructions and return precautions discussed, all questions answered. Procedure No Qualifying Data Assessment/Plan 1.??Pyelonephritis??N12 Ordered: Cipro 500 mg oral tablet, 500 mg = 1 tab, Oral, every 12 hr, X 7 days, # 14 tab, 0 Refill(s), 04/09/23 13:51:00 EDT, Pharmacy: [id number], 152, cm, 04/02/23 10:46:00 EDT, Height/Length Dosing, 72.57, kg, 04/02/23 10:46:00 EDT, Weight Dosing Discharge Patient, 04/02/23 13:51:00 EDT, Constant Indicator ?? Orders: Blood Culture, Blood, Stat collect, ST - Stat, 04/02/23 12:50:00 EDT, Once, Nurse collect, Print Label Blood Culture, Blood, Stat collect, ST - Stat, 04/02/23 12:50:00 EDT, Once, Nurse collect, Print Label Urine Culture, Urine, Stat collect, ST - Stat, 04/02/23 12:19:00 EDT, Once, Nurse collect, Collected, 04/02/23 12:19:00 EDT, Print Label, [id number] Patient Education Pyelonephritis, Adult Follow Up With When Contact Information Primary Care Physician Within 1 to 2 weeks, only if needed Additional Instructions: Medication Reconciliation New Prescription ciprofloxacin (Cipro 500 mg oral tablet)1 tab Oral (given by mouth) every 12 hours for 7 Days. Refills: 0. ?? Unchanged albuterol (Albuterol (Eqv-ProAir HFA) 90 mcg/inh inhalation aerosol)2 Puffs Inhale (breathe in) every 4 hours. Refills: 6. ?? ascorbic acid (Vitamin C 500 mg oral tablet)1 tab Oral (given by mouth) every day. Refills: 0. ?? Durable Medical Equipment for Prescription (COPD [...] AT THE SAME TIME EACH DAY. Refills: 4. ?? ipratropium-albuterol (ipratropium-albuterol 0.5 mg-2.5 mg/3 mL inhalation solution)3 [place] Nebulized inhalation (inhale using nebulizer) every 4 hours as needed as needed for shortness of breath or wheezing. COPD J44.1. Refills: 3. ?? LORazepam (Ativan 0.5 mg oral tablet)take 30-60 minutes prior to procedure.. Refills: 0. ?? omeprazole (omeprazole 40 mg oral delayed release capsule)1 Capsules Oral (given by mouth) every day. Refills: 3. ?? pramipexole (pramipexole 3 mg oral tablet, extended release)180 EA, TAKE 1 TABLET BY MOUTH TWICE DAILY. Problem List/Past Medical History Ongoing Anxiety disorder [...] w/ left salpingectomy???Tubal ligation Medication Administration Given cefTRIAXone, IV Piggyback ipratropium-albuterol 0.5 mg-2.5 mg/3 mL inhalation solution, 1 mL, Inhale Allergies No Known Medication Allergies Social History Alcohol Current, Daily- Comments: 1 Kahlua and milk/day Electronic Cigarette/Vaping Electronic Cigarette Use: Former use, quit more than 90 days ago. 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 Home/Environment Lives with Spouse. Nutrition/Health Caffeine intake amount: rarely. Sexual Other contraceptive use: [id number]. Substance Use Never Tobacco Current everyday tobacco [...] Lab Results CBC and Differential?? LATEST RESULTS?? WBC?? 04/02/23 11:31?? 13.5 ??High?? RBC?? 04/02/23 11:31?? 4.0 ??Low?? Hgb?? 04/02/23 11:31?? 12.6?? Hct?? 04/02/23 11:31?? 36.7 ??Low?? MCV?? 04/02/23 11:31?? 91.3?? MCH?? 04/02/23 11:31?? 31.3?? MCHC?? 04/02/23 11:31?? 34.3?? RDW-CV?? 04/02/23 11:31?? 13.3?? Platelets?? 04/02/23 11:31?? 279?? Neutro Auto?? 04/02/23 11:31?? 68.3?? Lymph Auto?? 04/02/23 11:31?? 20.5?? [place] Auto?? 04/02/23 11:31?? 9.2?? Eos, Auto?? 04/02/23 11:31?? 1.0?? Basophil Auto?? 04/02/23 11:31?? 0.4?? Imm Gran Auto?? 04/02/23 11:31?? 0.6?? Neutro Absolute?? 04/02/23 11:31?? 9.2? Routine Chemistry?? LATEST RESULTS?? Sodium Level?? 04/02/23 11:31?? 132 ??Low?? Potassium Level?? 04/02/23 11:31?? 3.6?? Chloride Level?? 04/02/23 11:31?? 98?? CO2?? 04/02/23 11:31?? 26?? Alk Phos?? 04/02/23 11:31?? 82?? AST?? 04/02/23 11:31?? 20?? ALT?? 04/02/23 11:31?? 29?? BUN?? 04/02/23 11:31?? 19 ??High?? Glucose Level?? 04/02/23 11:31?? 119 ??High?? Creatinine Level?? 04/02/23 11:31?? 0.89?? eGFR AA?? 04/02/23 11:31?? 69?? eGFR Non-AA?? 04/02/23 11:31?? 69?? Calcium Level?? 04/02/23 11:31?? 8.9?? Protein Total?? 04/02/23 11:31?? 6.7?? Albumin Level?? 04/02/23 11:31?? 3.2 ??Low?? Bilirubin Total?? 04/02/23 11:31?? 0.3? Endocrinology?? LATEST RESULTS?? Procalcitonin?? 04/02/23 11:31?? 0.81 ??High? UA Macroscopic?? LATEST RESULTS?? UA Color?? 04/02/23 12:19?? Yellow?? UA Appear?? 04/02/23 12:19?? Cloudy Abnormal?? UA Glucose?? 04/02/23 12:19?? Negative?? UA Bili?? 04/02/23 12:19?? Negative?? UA Ketones?? 04/02/23 12:19?? Negative?? UA Spec Grav?? 04/02/23 12:19?? 1.020?? UA Blood?? 04/02/23 12:19?? 2+ Abnormal?? UA pH?? 04/02/23 12:19?? 5.5?? UA Protein?? 04/02/23 12:19?? 2+ Abnormal?? UA Urobilinogen?? 04/02/23 12:19?? Normal?? UA Nitrite?? 04/02/23 12:19?? Positive Abnormal?? UA Leuk Est?? 04/02/23 12:19?? 1+ Abnormal?? UA Culture Ind?.?? 04/02/23 12:19?? Indicated? UA Microscopic?? LATEST RESULTS?? UA WBC?? 04/02/23 12:19?? 10-25 Abnormal?? UA RBC?? 04/02/23 12:19?? 3-5?? UA Squam Epithelial?? 04/02/23 12:19?? Few Abnormal?? UA Mucous?? 04/02/23 12:19?? None Seen?? UA Bacteria?? 04/02/23 12:19?? Moderate Abnormal? Infectious Disease?? LATEST RESULTS?? SARS-CoV-2(Covid19)PCR([facility] COVFLURSV)?? 04/02/23 11:31?? Negative?? Flu A ([facility] COVFLURSV)?? 04/02/23 11:31?? Negative?? Flu B ([facility] COVFLURSV)?? 04/02/23 11:31?? Negative?? RSV ([facility] COVFLURSV)?? 04/02/23 11:31?? Negative? Electronically Signed on 04/02/23 01:59 PM Yumiko Ghosh MD Emergency department Discharge instructions * Yumiko Ghosh MD: PERFORM Event Display: ED Discharge Information Authored Date: [id number] AUBREE COUCH :1950 Age:73 years Sex:Female Visit Date:04/02/2023 Primary Care Physician: Dilan Hernandez MD Discharge Instructions We would like to thank you for allowing us to assist you with your healthcare needs. The following includes patient education materials and information regarding your injury/illness. Diagnosis from Today's Visit Pyelonephritis Discharge Vitals Temperature??(Temporal Artery) 97.3 ??F (36.3 ??C) Heart Rate??(Peripheral) 71 Respiratory Rate?? 22 Blood Pressure?? 143/60?? Height?? 59.84 in (152.000 cm) Weight??(Estimated) 160.02 lb (72.57 kg) Allergies No Known Medication Allergies What to Do Next Instructions from Your Care Team Please take ciprofloxacin antibiotics twice a day for the next 7 days.?? Drink plenty of fluids.?? Take Tylenol for fevers, aches or pains or if you develop chills??without fever.?? The correct dosage for Tylenol??is 650 mg every 8 hours.?? If you continue to have chills, please take ibuprofen 400 mg every 8 hours in addition.?? Use your COPD medications as prescribed??including your inhalers??several times a day. ??If your symptoms persist??without any improvement??or if you develop worsening symptoms??in the next 24 hours, please return to the emergency department.?? Otherwise follow-up with your primary care doctor for reevaluation in 1 to 2 weeks as needed. You Need to Schedule the Following Appointments Follow Up with??Primary Care Physician When:??Within 1 to 2 weeks, only if needed Upcoming Scheduled Appointments 2022 10:20 AM EST ?? With: Dilan Hernandez MD Where: [facility] [address] [address] Status: Confirmed 2023 11:00 AM EST ?? With: Dilan Hernandez MD Where: [facility] [address] [address] Status: Confirmed Thursday 8:30 AM EST ?? With: Jaimee Cerda CIPHER EXPERT Where: [facility] [address] [place] [address] Status: Confirmed You were treated today [...] Much When Why Instructions Next Dose New ciprofloxacin (Cipro 500 mg oral tablet) 1 tab Oral (given by mouth) Every 12 hours Pyelonephritis Duration: 7 Days Pickup at [facility]100 Unchanged albuterol (Albuterol (Eqv-ProAir HFA) 90 mcg/ [...] breath or wheezing COPD exacerbation COPD J44.1 ?? Unchanged LORazepam (Ativan 0.5 mg oral tablet) See instructions take 30-60 minutes prior to procedure. ?? Unchanged omeprazole (omeprazole 40 mg oral delayed release capsule) 1 Capsules Oral (given by mouth) Every day Unchanged pramipexole (pramipexole 3 mg oral tablet, extended release) 180 EA, TAKE 1 TABLET BY MOUTH TWICE DAILY ?? Pharmacy Information [facility] 4156: [address] [place] [address] [phone] Education Materials Pyelonephritis, Adult Pyelonephritis is an infection that occurs in the kidney. The kidneys are the organs that filter a person's blood and move waste out of the bloodstream and into the urine. Urine passes from the kidneys, through tubes called ureters, and into the bladder. There are two main types of pyelonephritis: ? Infections that come on quickly without any warning (acute pyelonephritis). ? Infections that last for a long period of time (chronic pyelonephritis). In most cases, the infection clears up with treatment and does not cause further problems. More severe infections or chronic infections can sometimes spread to the bloodstream or lead to other problems with the kidneys. What are the causes? This condition is usually caused by: ? Bacteria traveling from the bladder up to the kidney. This may occur after having a bladder infection (cystitis) or urinary tract infection (UTI). ? Bladder infections caused from bacteria traveling from the bloodstream to the kidney. What increases the risk? This condition is more likely to develop in: ? women. ? Older people. ? People who have any of these conditions: ? Diabetes. ? Inflammation of the prostate gland (prostatitis), in males. ? Kidney stones or bladder stones. ? Other abnormalities of the kidney or ureter. ? Cancer. ? People who have a catheter placed in the bladder. ? People who are sexually active. ? Women who use spermicides. ? People who have had a prior UTI. What are the signs or symptoms? Symptoms of this condition include: ? Frequent urination. ? Strong or persistent urge to urinate. ? Burning or stinging when urinating. ? Abdominal pain. ? Back pain. ? Pain in the side or flank area. ? Fever or chills. ? Blood in the urine, or dark urine. ? Nausea or vomiting. How is this diagnosed? This condition may be diagnosed based on: ? Your medical history and a physical exam. ? Urine tests. ? Blood tests. You may also have imaging tests of the kidneys, such as an ultrasound or CT scan. How is this treated? Treatment for this condition may depend on the severity of the infection. ? If the infection is mild and is found early, you may be treated with antibiotic medicines taken by mouth (orally). You will need to drink fluids to remain hydrated. ? If the infection is more severe, you may need to stay in the hospital and receive antibiotics givendirectly into a vein through an IV. You may also need to receive fluids through an IV if you are not able to remain hydrated. After your hospital stay, you may need to take oral antibiotics for a period of time. Other treatments may be required, depending on the cause of the infection. Follow these instructions at home: Medicines ? Take your antibiotic medicine as told by your health care provider. Do not stop taking the antibiotic even if you start to feel better. ? Take [id number] and prescription medicines only as told by your health care provider. General instructions ? Drink enough fluid to keep your urine pale yellow. ? Avoid caffeine, tea, and carbonated beverages. They tend to irritate the bladder. ? Urinate often. Avoid holding in urine for long periods of time. ? Urinate before and after sex. ? After a bowel movement, women should cleanse from front to back. Use each tissue only once. ? Keep all follow-up visits as told by your health care provider. This is important. Contact a health care provider if: ? Your symptoms do not get better after 2 days of treatment. ? Your symptoms get worse. ? You have a fever. Get help right away if you: ? Are unable to take your antibiotics or fluids. ? Have shaking chills. ? Vomit. ? Have severe flank or back pain. ? Have extreme weakness or fainting. Summary ? Pyelonephritis is a urinary tract infection (UTI) that occurs in the kidney. ? Treatment for this condition may depend on the severity of the infection. ? Take your antibiotic medicine as told by your health care provider. Do not stop taking the antibiotic even if you start to feel better. ? Drink enough fluid to keep your urine pale yellow. ? Keep all follow-up visits as told by your health care provider. This is important. This information is not intended to replace advice given to you by your health care provider. Make sure you discuss any questions you have with your health care provider. Document Revised: 01/02/2022 Document Reviewed: 01/02/2022 Elsevier Patient Education ?? 2022 [employer] Tests Performed Medications and Immunizations Administered Given cefTRIAXone, IV Piggyback ipratropium-albuterol 0.5 mg-2.5 mg/3 mL inhalation solution, 1 mL, Inhale Lab Test Name Test Result Date/Time WBC 13.5 x10^3/mcL 04/02/2023 11:31 EDT RBC 4.0 x10^6/mcL 04/02/2023 11:31 EDT Hgb 12.6 g/dL 04/02/2023 11:31 EDT Hct 36.7 % 04/02/2023 11:31 EDT MCV 91.3 fL 04/02/2023 11:31 EDT MCH 31.3 pg 04/02/2023 11:31 EDT MCHC 34.3 g/dL 04/02/2023 11:31 EDT RDW-CV 13.3 % 04/02/2023 11:31 EDT Platelets 279 x10^3/mcL 04/02/2023 11:31 EDT Neutro Auto 68.3 % 04/02/2023 11:31 EDT Lymph Auto 20.5 % 04/02/2023 11:31 EDT [place] Auto 9.2 % 04/02/2023 11:31 EDT Eos, Auto 1.0 % 04/02/2023 11:31 EDT Basophil Auto 0.4 % 04/02/2023 11:31 EDT Imm Gran Auto 0.6 % 04/02/2023 11:31 EDT Neutro Absolute 9.2 x10^3/mcL 04/02/2023 11:31 EDT Sodium Level 132 mmol/L 04/02/2023 11:31 EDT Potassium Level 3.6 mmol/L 04/02/2023 11:31 EDT Chloride Level 98 mmol/L 04/02/2023 11:31 EDT CO2 26 mmol/L 04/02/2023 11:31 EDT Alk Phos 82 unit/L 04/02/2023 11:31 EDT AST 20 unit/L 04/02/2023 11:31 EDT ALT 29 unit/L 04/02/2023 11:31 EDT BUN 19 mg/dL 04/02/2023 11:31 EDT Glucose Level 119 mg/dL 04/02/2023 11:31 EDT Creatinine Level 0.89 mg/dL 04/02/2023 11:31 EDT eGFR AA 69 04/02/2023 11:31 EDT eGFR Non-AA 69 04/02/2023 11:31 EDT Calcium Level 8.9 mg/dL 04/02/2023 11:31 EDT Protein Total 6.7 g/dL 04/02/2023 11:31 EDT Albumin Level 3.2 g/dL 04/02/2023 11:31 EDT Bilirubin Total 0.3 mg/dL 04/02/2023 11:31 EDT Procalcitonin 0.81 ng/mL 04/02/2023 11:31 EDT UA Color YELLOW. 04/02/2023 12:19 EDT UA Appear CLOUDY. 04/02/2023 12:19 EDT UA Glucose NEGATIVE 04/02/2023 12:19 EDT UA Bili NEGATIVE 04/02/2023 12:19 EDT UA Ketones NEGATIVE 04/02/2023 12:19 EDT UA Spec Grav 1.020 04/02/2023 12:19 EDT UA Blood 2+ 04/02/2023 12:19 EDT UA pH 5.5 04/02/2023 12:19 EDT UA Protein 2+ 04/02/2023 12:19 EDT UA Urobilinogen 0.2 Uro 04/02/2023 12:19 EDT UA Nitrite POSITIVE 04/02/2023 12:19 EDT UA Leuk Est 1+ 04/02/2023 12:19 EDT UA Culture Ind?. Indicated 04/02/2023 12:19 EDT UA WBC 10-25 04/02/2023 12:19 EDT UA RBC 3-5 04/02/2023 12:19 EDT UA Squam Epithelial Few 04/02/2023 12:19 EDT UA Mucous None Seen 04/02/2023 12:19 EDT UA Bacteria Moderate 04/02/2023 12:19 EDT SARS-CoV-2(Covid19)PCR(GXpert COVFLURSV) NEGATIVE 04/02/2023 11:31 EDT Flu A (GXpert COVFLURSV) NEGATIVE 04/02/2023 11:31 EDT Flu B (GXpert COVFLURSV) Neg-GeneXPert 04/02/2023 11:31 EDT RSV (GXpert COVFLURSV) Neg-GeneXPert 04/02/2023 11:31 EDT Patient/Hand Tile Maker Signature Patient Name:AUBREE COUCH I have received this information and my questions have been answered. Patient/Hand Tile Maker Name: Patient/Hand Tile Maker Signature: Relationship to Patient: Witness Name/Signature: Date: Electronically Signed on: 04/02/2023 13:54 EDTSigned by:DINO Emergency department Note * Yola Altman: PERFORM Event Display: ED Notes Authored Date: [id number] History and physical note * Event Display: History and Physical Update Authored Date: [id number] Patient Care team information Care Team Personnel Name: Dilan Hernandez MD Position: Physician Member Role: Informed Provider Address: Address: [facility] [address] Name: Yumiko Ghosh MD Position: Physician Member Role: Admitting Physician Address: Address: [address] [place] [address] Name: Raquel Jones RN Position: Nurse Member Role: ED Nurse Care Team Related Persons Name: LIAM QUIGLEY Address: [address] [address] Address: Home [address] [place] [phone] Name: LIAM QUIGLEY Address: Home [address] [place] [address] [phone] Name: GRACIELA COUCH Address: [address] [phone]
--- OUTSIDE RECORDS SUMMARY | 2024-07-07 20:04 | XMS_ITS | Continuity of Care Document ---
Author Organization [facility] Address [address] [place] [address] Care Team Providers Care Fluorescent Lighting Model Maker Name Role Phone Dilan Hernandez Primary Care Physician Encounter [facility] Date(s): 07/24/23 - 07/24/[address] [address] Discharge Disposition: Home or Self Care Attending Physician: Dilan Hernandez MD Admitting Physician: Dilan Hernandez MD Referring Physician: Dilan Hernandez MD Allergies, Adverse Reactions, Alerts No Known Medication Allergies Assessment and Plan Future Appointments Diagnostic Tests Pending * HCV RNA Detect Quant [facility] 07/24/23 Future Scheduled Tests Laboratory* Basic Metabolic Panel [...] Inactivated Influenza 01/20/2019 Administered by NOEMÍ HERNANDEZ, Paper And Pulp Mill Operator 04-09-2020 2Result Comment: influenza, trivalent, adjuvanted VIS given: 03-24-2019 VIS published date: Inactivated Influenza 01/20/2019 Administered by SOWMYA MCMILLAN, [employer] Pul[employer] Mill Operator 03-24-2019 3Result Comment: influenza, high dose seasonal Administered by: SULTANA 4Result Comment: William 5Result Comment: Moderna bivalent, 6+ months, blue cap 6Result Comment: influenza, high-dose, quadrivalent Patient Declined Last Modified by SOWMYA MCMILLAN [employer] Pul[employer] Mill Operator 06-21-2020, 11:26 Medications Albuterol (Eqv-ProAir HFA) 90 mcg/inh inhalation aerosol 2 puffs, Inhale, every 4 hr, # 8.5 g, 6 Refill(s), Pharmacy: [facility], 155, cm, 05/04/23 10:37:00 EST, Height, 81.6, kg, 07/01/23 15:10:00 EST, Weight Dosing Start Date: 07/01/23 Status: Ordered amoxicillin 500 mg oral capsule 500 mg = 1 cap, Oral, TID, # 21 cap, 0 Refill(s), Pharmacy: [place] [id number], 155, cm, 05/04/23 10:37:00 EST, Height, 81.51, kg, 07/23/23 10:33:00 EST, Weight Dosing Start Date: 07/23/23 Stop Date: 07/30/23 Status: Ordered apixaban 5 mg oral tablet 5 mg = 1 tab, Oral, BID, # 60 tab, 3 Refill(s), Pharmacy: [place] [address], 155, cm, 05/04/23 10:37:00 EST, Height, 81.6, [...] DAILY, # 90 tab, 3 Refill(s), Pharmacy: [place] [facility] [address], 155, cm, 05/04/23 10:37:00 EST, Height, 81.6, kg, 07/01/23 15:10:00 EST, Weight Dosing Start Date: 07/01/23 Status: Ordered ferrous sulfate 325 mg (65 mg elemental iron) oral delayed release tablet 325 mg = 1 tab, Oral, Daily, # 90 tab, 0 Refill(s), Pharmacy: [place] [address], 156, cm, 03/27/22 9:33:00 EDT, Height/Length Dosing, [...] WHEEZING, # 90 mL, 4 Refill(s), Pharmacy: [place] [facility] [address], 154, cm, 04/03/23 18:11:00 EDT, Height/Length Dosing, 76.6, kg, 04/15/23 11:00:00 EST, Weight Dosing Start Date: 04/15/23 Status: Ordered omeprazole 40 mg oral delayed release capsule 40 mg = 1 cap, Oral, Daily, # 90 cap, 3 Refill(s), Pharmacy: [place] [address], 155, cm, 12/04/22 20:52:00 EDT, Height/Length Dosing, 69.4, kg, 12/04/22 20:52:00 EDT, Weight Dosing Start Date: 01/29/23 Status: Ordered Oxygen Therapy Supply, See instructions, # 1 EA, 0 Refill(s) Start Date: 11/19/22 Status: Ordered pramipexole 1 mg oral tablet See Instructions, Take 2 tablets by mouth twice daily, # 120 tab, 6 Refill(s), Pharmacy: [place] [facility] [address], 155, cm, 05/04/23 10:37:00 EST, Height, 78.97, kg, 05/14/23 10:34:00 EST, Weight Dosing Start Date: 05/29/23 Status: Ordered traMADol 50 mg oral tablet 50 mg = 1 tab, Oral, every 4 hr, PRN as needed for pain, # 28 tab, 0 Refill(s), Pharmacy: [place] [facility] [address], 155, cm, 05/04/23 10:37:00 EST, Height, 81.6, kg, 07/01/23 15:10:00 EST, Weight Dosing Start Date: 07/13/23 Status: Ordered Trelegy Ellipta 100 mcg-62.5 mcg-25 mcg/inh inhalation powder See Instructions, INHALE 1 PUFF ONCE DAILY AT THE SAME TIME EACH DAY, # 60 EA, 4 Refill(s), Pharmacy: [place] [facility] [address], 155, cm, 12/04/22 20:52:00 EDT, Height/Length Dosing, 69.4, kg, 12/04/22 20:52:00 EDT, Weight Dosing Start Date: 03/17/23 Status: Ordered Vitamin C 500 mg oral tablet 500 mg = 1 tab, Oral, Daily, # 90 tab, 0 Refill(s), Pharmacy: [facility], 156, cm, 03/27/22 9:33:00 [...] Overview: Added automatically from request for surgery [id number] 2Outside Source Comment: Overview: Added automatically from request for surgery [id number] Procedures Procedure Date Related Diagnosis Body Site [...] 5 year call-back 5Sisson 6right, d/t cyst 48661/1982 with Left salpingectomy Results Laboratory List Name Date Automated Diff 07/24/23 CBC w/ Diff 07/24/23 Comprehensive Metabolic Panel (CMP) 07/24 Hemoglobin A1c 07/24/23 Thyroid Stimulating Hormone (TSH) 4 Most recent to oldest [Reference Range]: 1 WBC [5.0-10.0 x10^3/mcL] 7.1 x10^3/mcL (07/24/23 1:25 PM) RBC [4.1-5.3 x10^6/mcL] 4.2 x10^6/mcL (07/24/23 1:25 PM) Neutro Auto [40.0-75.0 %] 55.3 % (07/24/23 1:25 PM) Lymph Auto [20.0-50.0 %] 31.5 % (07/24/23 1:25 PM) [place] Auto [2.0-15.0 %] 9.1 % (07/24/23 1:25 PM) Basophil Auto [0.0-1.0 %] 0.6 % (07/24/23 1:25 PM) BUN [7-18 mg/dL] 14 mg/dL (07/24/23 1:25 PM) Glucose Level [74-106 mg/dL] 119 mg/dL *HI* (07/24/23 1:25 PM) Potassium Level [3.5-5.1 mmol/L] 3.8 mmo l/L (07/24/23 1:25 PM) MCV [80.0-96.0 fL] 91.0 fL (07/24/23 1:25 PM) AST [15-37 unit/L] 17 unit/L (07/24/23 1:25 PM) ALT [14-59 unit/L] 24 unit/L (07/24/23 1:25 PM) MCHC [31.0-35.0 g/dL] 33.4 g/dL (07/24/23 1:25 PM) Sodium Level [136-145 mmol/L] 136 mmol/L (07/24/23 1:25 PM) Hct [37.0-47.0 %] 38.3 % (07/24/23 1:25 PM) Calcium Level [8.5-10.1 mg/dL] 9.2 mg/dL (07/24/23 1:25 PM) Albumin Level [3.4-5.0 g/dL] 3.5 g/dL (07/24/23 1:25 PM) Protein Total [6.4-8.2 g/dL] 7.2 g/dL (07/24/23 1:25 PM) MCH [26.0-32.0 pg] 30.4 pg (07/24/23 1:25 PM) Neutro Absolute 4.0 x10^3/mcL *NA* (07/24/23 1:25 PM) Bilirubin Total [0.2-1.0 mg/dL] 0.2 mg/d L (07/24/23 1:25 PM) Hgb [12.0-16.0 g/dL] 12.8 g/dL (07/24/23 1:25 PM) Alk Phos [46-146 unit/L] 110 unit/L (07/24/23 1:25 PM) Platelets [130-450 x10^3/mcL] 324 x10^3/ mcL (07/24/23 1:25 PM) CO2 [21-32 mmol/L] 32 mmol/L (07/24/23 1:25 PM) TSH [0.358-3.740 mcIntlUnit/mL] 1.779 mc IntlUnit/mL (07/24/23 1:25 PM) eGFR Non-AA [>=60] 79 (07/24/23 1:25 PM) eGFR AA [>=60] 79 (07/24/23 1:25 PM) Hemoglobin A1c [4.0-5.6 %] 6.2 % 1 *HI* (07/24/23 1:25 PM) Chloride Level [98-107 mmol/L] 99 mmol/L (07/24/23 1:25 PM) RDW-CV [11.5-14.5 %] 13.7 % (07/24/23 1:25 PM) Imm Gran Auto [0.0-0.9 %] 0.3 % (07/24/23 1:25 PM) Creatinine Level [0.55-1.02 mg/dL] 0.80 mg/dL (07/24/23 1:25 PM) Eos, Auto [1.0-6.0 %] 3.2 % (07/24/23 1:25 PM) 1Interpretive Data: New test method effective 07-07-23. Establishment of new HA1c baseline is recommended. The following A1c interpretive data reflect the 2017 [place] Diabetes Association (ADA) guidelinesand will be reported with each A1c result: Normal: <5.7% Prediabetes: 5.7 - 6.4% Diagnostic for diabetes (if confirmed): ???6.5% Social History Social History Type Response Smoking Status Smoking tobacco use: Current everyday tobacco user;Never; Number used per day: 1.5 PPD; entered on: 06/15/23 Sex Female History and physical note * Event Display: History and Physical Update Authored Date: [id number] Patient Care team information Care Team Personnel Name: Dilan Hernandez MD Position: Physician Member Role: Informed Provider Address: Address: [id number] [place] [address] Care Team Related Persons Name: LIAM QUIGLEY Address: [address] [address] Address: Home [address] [place] [phone] Address: Mailing [address] [place] [phone] Name: GRACIELA COUCH Address: Home [address] [place] [phone]
--- OUTSIDE RECORDS SUMMARY | 2024-07-07 20:04 | XMS_ITS | Continuity of Care Document ---
Author Organization [facility] Address [address] [place] [address] Care Team Providers Care Pot Annealer Name Role Phone Dilan Hernandez Primary Care Physician Encounter [facility] [id number] Date(s): 06/18/23 - 06/18/23 [facility] [address] [place] [address] Discharge Disposition: Home Allergies, Adverse Reactions, Alerts No Known Medication Allergies Assessment and Plan Future Appointments Future Scheduled Tests Laboratory* Basic Metabolic Panel 09/29/22 * Hemoglobin A1c 09/29/22 Radiology* NM Myocardial SPECT Drug Stress Multi 06/17/23 * CT Urogram 05/14/23 Immunizations Given and [...] Inactivated Influenza 01/20/2019 Administered by NOEMÍ HERNANDEZ, Head Swamper 04-09-2020 2Result Comment: influenza, trivalent, adjuvanted VIS given: 03-24-2019 VIS published date: Inactivated Influenza 01/20/2019 Administered by SOWMYA MCMILLAN, Head Swamper 03-24-2019 3Result Comment: influenza, high dose seasonal Administered by: SULTANA 4Result Comment: William 5Result Comment: influenza, high-dose, quadrivalent Patient Declined Last Modified by SOWMYA MCMILLAN, [facility] 06-21-2020, 11:26 Medications Albuterol (Eqv-ProAir HFA) 90 mcg/inh inhalation aerosol 2 puffs, Inhale, every 4 hr, # 8.5 g, 6 Refill(s), Pharmacy: [facility], 156, cm, 03/27/22 9:33:00 EDT, Height/Length Dosing, 68.04, kg, 03/27/22 9:33:00 EDT, Weight Dosing Start Date: 09/29/22 Status: Ordered apixaban 5 mg oral tablet 5 mg = 1 tab, Oral, BID, # 60 tab, 3 Refill(s), Pharmacy: [facility], 155, cm, 05/04/23 [...] DAILY, # 90 tab, 3 Refill(s), Pharmacy: [facility], 156, cm, 03/27/22 9:33:00 EDT, Height/Length Dosing, 68.04, kg, 03/27/22 9:33:00EDT, Weight Dosing Start Date: 05/12/22 Status: Ordered ferrous sulfate 325 mg (65 mg elemental iron) oral delayed release tablet 325 mg = 1 tab, Oral, Daily, # 90 tab, 0 Refill(s), Pharmacy: [facility], 156, cm, 03/27/22 9:33:00 EDT, Height/Length Dosing, 68.04, kg, 03/27/22 9:33:00 EDT, Weight Dosing Start Date: 08/15/22 Status: Ordered ipratropium-albuterol 0.5 mg-2.5 mg/3 mL inhalation solution See Instructions, USE 1 AMPULE IN NEBULIZER EVERY 4 HOURS NEEDED FOR SHORTNESS OF BREATH OR WHEEZING, # 90 mL, 4 Refill(s), Pharmacy: [facility], 154, cm, 04/03/23 18:11:00 EDT, Height/Length Dosing, 76.6, kg, 04/15/23 11:00:00 EST, Weight Dosing Start Date: 04/15/23 Status: Ordered Lyrica 25 mg oral capsule 25 mg = 1 cap, Oral, TID, # 90 cap, 3 Refill(s), Pharmacy: [facility], 155, cm, 05/04/2310:37:00 EST, Height, 78.97, kg, 05/14/23 10:34:00 EST, Weight Dosing Start Date: 05/14/23 Status: Ordered omeprazole 40 mg oral delayed release capsule 40 mg = 1 cap, Oral, Daily, # 90 cap, 3 Refill(s), Pharmacy: [facility], 155, cm, 12/04/22 [...] sites, # 1 EA, 0 Refill(s), Pharmacy: [place] [address], 154, cm, 04/03/23 18:11:00 EDT, Height/Length Dosing, 76.35, kg, 04/23/23 14:48:00 EST, Weight Dosing Start Date: 04/27/23 Status: Ordered pramipexole 1 mg oral tablet See Instructions, Take 2 tablets by mouth twice daily, # 120 tab, 6 Refill(s), Pharmacy: [place] [address], 155, cm, 05/04/23 10:37:00 EST, Height, 78.97, kg, 05/14/23 10:34:00 EST, Weight Dosing Start Date: 05/29/23 Status: Ordered pramipexole 1 mg oral tablet See Instructions, 0 Refill(s) Start Date: 04/15/23 Status: Ordered traMADol 50 mg oral tablet 50 mg = 1 tab, Oral, every 4 hr, PRN as needed for pain, # 28 tab, 0 Refill(s), Pharmacy: [facility] [id number], 155, cm, 05/04/23 10:37:00 EST, Height, 80, kg, 06/18/23 15:33:00 EST, Weight Dosing Start Date: 06/18/23 Status: Ordered Trelegy Ellipta 100 mcg-62.5 mcg-25 mcg/inh inhalation powder See Instructions, INHALE 1 PUFF ONCE DAILY AT THE SAME TIME EACH DAY, # 60 EA, 4 Refill(s), Pharmacy: [facility], 155, cm, 12/04/22 20:52:00 EDT, Height/Length Dosing, 69.4, kg, 12/04/22 20:52:00 EDT, Weight Dosing Start Date: 03/17/23 Status: Ordered Vitamin C 500 mg oral tablet 500 mg = 1 tab, Oral, Daily, # 90 tab, 0 Refill(s), Pharmacy: [facility], 156, cm, 03/27/22 [...] Overview: Added automatically from request for surgery [id number] 2Outside Source Comment: Overview: Added automatically from request for surgery [id number] Procedures Procedure Date Related Diagnosis Body Site [...] 5 year call-back 5Sisson 6right, d/t cyst 25514/1982 with Left salpingectomy Social History Social History Type Response Smoking Status Smoking tobacco use: Current everyday tobacco user;Never; Number used per day: 1.5 PPD; entered on: 06/15/23 Sex Female History and physical note * Event Display: History and Physical Update Authored Date: [id number] Patient Care team information Care Team Personnel Name: Dilan Hernandez MD Position: Physician Member Role: Informed Provider Address: Address: [address] Care Team Related Persons Name: LIAM QUIGLEY Address: [address] [address] Address: Home [address] [place] [phone] Address: Mailing [address] [place] [phone] Name: GRACIELA COUCH Address: [address] [phone]
--- OUTSIDE RECORDS SUMMARY | 2024-07-07 20:04 | XMS_ITS | Continuity of Care Document ---
Author Organization [facility] Address [address] [place] [address] Care Team Providers Care Development Administrator Name Role Phone Dilan Hernandez Primary Care Physician Encounter [facility] [id number] Date(s): 06/30/23 - 06/30/[address] [address] Discharge Disposition: Home or Self Care Attending Physician: Sabiha Hugo MD Admitting Physician: Sabiha Hugo MD Referring Physician: Sabiha Hugo MD Allergies, Adverse Reactions, [...] Inactivated Influenza 01/20/2019 Administered by NOEMÍ HERNANDEZ, Field Application Engineer 04-09-2020 2Result Comment: influenza, trivalent, adjuvanted VIS given: 03-24-2019 VIS published date: Inactivated Influenza 01/20/2019 Administered by SOWMYA MCMILLAN, Field Application Engineer 03-24-2019 3Result Comment: influenza, high dose seasonal Administered by: SULTANA 4Result Comment: William 5Result Comment: influenza, high-dose, quadrivalent Patient Declined Last Modified by SOWMYA MCMILLAN, Field Application Engineer 06-21-2020, 11:26 Medications Albuterol (Eqv-ProAir HFA) 90 mcg/inh inhalation aerosol 2 puffs, Inhale, every 4 hr, # 8.5 g, 6 Refill(s), Pharmacy: [facility], 156, cm, 03/27/22 9:33:00 EDT, Height/Length Dosing, 68.04, kg, 03/27/22 9:33:00 EDT, Weight Dosing Start Date: 09/29/22 Status: Ordered apixaban 5 mg oral tablet 5 mg = 1 tab, Oral, BID, # 60 tab, 3 Refill(s), Pharmacy: [facility] 415, 155, cm, 05/04/23 10:37:00 [...] DAILY, # 90 tab, 3 Refill(s), Pharmacy: [place] [address], 156, cm, 03/27/22 9:33:00 EDT, Height/Length Dosing, 68.04, kg, 03/27/22 9:33:00EDT, Weight Dosing Start Date: 05/12/22 Status: Ordered ferrous sulfate 325 mg (65 mg elemental iron) oral delayed release tablet 325 mg = 1 tab, Oral, Daily, # 90 tab, 0 Refill(s), Pharmacy: [place] [address], 156, cm, 03/27/22 9:33:00 EDT, Height/Length Dosing, 68.04, kg, 03/27/22 9:33:00 EDT, Weight Dosing Start Date: 08/15/22 Status: Ordered ipratropium-albuterol 0.5 mg-2.5 mg/3 mL inhalation solution See Instructions, USE 1 AMPULE IN NEBULIZER EVERY 4 HOURS NEEDED FOR SHORTNESS OF BREATH OR WHEEZING, # 90 mL, 4 Refill(s), Pharmacy: [facility], 154, cm, 04/03/23 18:11:00 EDT, Height/Length Dosing, 76.6, kg, 04/15/23 11:00:00 EST, Weight Dosing Start Date: 04/15/23 Status: Ordered Lyrica 25 mg oral capsule 25 mg = 1 cap, Oral, TID, # 90 cap, 3 Refill(s), Pharmacy: [facility]156, 155, cm, 05/04/2310:37:00 EST, Height, 78.97, kg, 05/14/23 10:34:00 EST, Weight Dosing Start Date: 05/14/23 Status: Ordered omeprazole 40 mg oral delayed release capsule 40 mg = 1 cap, Oral, Daily, # 90 cap, 3 Refill(s), Pharmacy: [facility], 155, cm, 12/04/22 20:52:00 [...] sites, # 1 EA, 0 Refill(s), Pharmacy: [place] [address], 154, cm, 04/03/23 18:11:00 EDT, Height/Length Dosing, 76.35, kg, 04/23/23 14:48:00 EST, Weight Dosing Start Date: 04/27/23 Status: Ordered pramipexole 1 mg oral tablet See Instructions, Take 2 tablets by mouth twice daily, # 120 tab, 6 Refill(s), Pharmacy: [facility], 155, cm, 05/04/23 10:37:00 EST, Height, 78.97, kg, 05/14/23 10:34:00 EST, Weight Dosing Start Date: 05/29/23 Status: Ordered pramipexole 1 mg oral tablet See Instructions, 0 Refill(s) Start Date: 04/15/23 Status: Ordered traMADol 50 mg oral tablet 50 mg = 1 tab, Oral, every 4 hr, PRN as needed for pain, # 28 tab, 0 Refill(s), Pharmacy: [facility]156, 155, cm, 05/04/23 10:37:00 EST, Height, 80, kg, 06/18/23 15:33:00 EST, Weight Dosing Start Date: 06/18/23 Status: Ordered Trelegy Ellipta 100 mcg-62.5 mcg-25 mcg/inh inhalation powder See Instructions, INHALE 1 PUFF ONCE DAILY AT THE SAME TIME EACH DAY, # 60 EA, 4 Refill(s), Pharmacy: [facility]156, 155, cm, 12/04/22 20:52:00 EDT, Height/Length Dosing, 69.4, kg, 12/04/22 20:52:00 EDT, Weight Dosing Start Date: 03/17/23 Status: Ordered Vitamin C 500 mg oral tablet 500 mg = 1 tab, Oral, Daily, # 90 tab, 0 Refill(s), Pharmacy: [facility], 156, cm, 03/27/22 [...] Overview: Added automatically from request for surgery [id number] 2Outside Source Comment: Overview: Added automatically from request for surgery [id number] Procedures Procedure Date Related Diagnosis Body Site [...] 5 year call-back 5Sisson 6right, d/t cyst [id number] with Left salpingectomy Social History Social History Type Response Smoking Status Smoking tobacco use: Current everyday tobacco user;Never; Number used per day: 1.5 PPD; entered on: 06/15/23 Sex Female History and physical note * Event Display: History and Physical Update Authored Date: [id number] Patient Care team information Care Team Personnel Name: Dilan Hernandez MD Position: Physician Member Role: Informed Provider Address: Address: [address] Care Team Related Persons Name: LIAM QUIGLEY Address: [address] [address] Address: Home [address] [place] [id number] Address: Mailing [address] [place] [phone] Name: GRACIELA COUCH Address: [address] [phone]
--- OUTSIDE RECORDS SUMMARY | 2024-07-07 20:04 | XMS_ITS | Continuity of Care Document ---
Author Organization [facility] Address [address] [place] [address] Care Team Providers Care Dried Yeast Supervisor Name Role Phone Dilan Hernandez Primary Care Physician [phone] Encounter [facility] Date(s): 10/26/23 - 12/03/[address] [address] Discharge Disposition: Home or Self Care Attending Physician: Dilan Hernandez MD Admitting Physician: Dilan Hernandez MD Referring Physician: Dilan Hernandez MD Allergies, Adverse Reactions, Alerts No Known Medication Allergies Assessment and Plan Future Appointments Future Scheduled Tests Laboratory* Thyroid Stimulating Hormone 08/26/23 * Drug Screen Urine 09/28/23 Radiology* MRI Spine Lumbar w/o Contrast 11/23/23 Immunizations Given and Recorded Vaccine Date Status [...] Inactivated Influenza 01/20/2019 Administered by NOEMÍ HERNANDEZ, Terrazzo Mechanic Helper 04-09-2020 2Result Comment: influenza, trivalent, adjuvanted VIS given: 03-24-2019 VIS published date: Inactivated Influenza 01/20/2019 Administered by SOWMYA MCMILLAN, Terrazzo Mechanic Helper 03-24-2019 3Result Comment: influenza, high dose seasonal Administered by: SULTANA 4Result Comment: William 5Result Comment: Moderna bivalent, 6+ months, blue cap 6Result Comment: influenza, high-dose, quadrivalent Patient Declined Last Modified by SOWMYA MCMILLAN, Terrazzo Mechanic Helper 06-21-2020, 11:26 Medications Albuterol (Eqv-ProAir HFA) 90 mcg/inh inhalation aerosol 2 puffs, Inhale, every 4 hr, # 8.5 g, 6 Refill(s), Pharmacy: [facility]156, 155, cm, 05/04/23 10:37:00 EST, Height, 81.6, kg, 07/01/23 15:10:00 EST, Weight Dosing Start Date: 07/01/23 Status: Ordered apixaban 5 mg oral tablet 5 mg = 1 tab, Oral, BID, # 60 tab, 3 Refill(s), Pharmacy: [facility] 4156, 155, cm, 05/04/23 10:37:00 EST, [...] DAILY, # 90 tab, 3 Refill(s), Pharmacy: [place] [address], 155, cm, 05/04/23 10:37:00 EST, Height, 81.6, kg, 07/01/23 15:10:00 EST, Weight Dosing Start Date: 07/01/23 Status: Ordered ferrous sulfate 325 mg (65 mg elemental iron) oral delayed release tablet 325 mg = 1 tab, Oral, Daily, # 90 tab, 0 Refill(s), Pharmacy: [facility], 156, cm, 03/27/22 9:33:00 EDT, [...] WHEEZING, # 90 mL, 4 Refill(s), Pharmacy: [facility] 415, 153.3, cm, 09/17/23 12:47:00 EDT, Height, 81.65, kg, 09/17/23 12:54:00 EDT, Weight Dosing Start Date: 12/02/23 Status: Ordered Medrol Dosepak 4 mg oral tablet 1 packets, Oral, Daily, as directed on package labeling, # 21 tab, 0 Refill(s), Pharmacy: [facility]156, 153.3, cm, 09/17/23 12:47:00 EDT, Height, 81.65, kg, 09/17/23 12:54:00 EDT, Weight Dosing Start Date: 09/28/23 Stop Date: 10/04/23 Status: Ordered omeprazole 40 mg oral delayed release capsule 40 mg = 1 cap, Oral, Daily, # 90 cap, 3 Refill(s), Pharmacy: [facility] 415, 155, cm, 12/04/22 20:52:00 EDT, Height/Length Dosing, 69.4, kg, 12/04/22 20:52:00 EDT, Weight Dosing Start Date: 01/29/23 Status: Ordered ondansetron 8 mg oral tablet See Instructions, PRN nausea, 1 tab Oral every 6 hours as needed for nausea, # 56 tab, 0 Refill(s),Pharmacy: [facility] 4156, 153.3, cm, 09/17/23 12:47:00 EDT, Height, 81.65, kg, 09/17/23 12:54:00 EDT, Weight Dosing Start Date: 10/14/23 Status: Ordered Oxygen Therapy Supply, See instructions, # 1 EA, 0 Refill(s) Start Date: 11/19/22 Status: Ordered pramipexole 1 mg oral tablet See Instructions, Take 2 tablets by mouth twice daily, # 120 tab, 6 Refill(s), Pharmacy: [facility]156, 155, cm, 05/04/23 10:37:00 EST, Height, 78.97, kg, 05/14/23 10:34:00 EST, Weight Dosing Start Date: 05/29/23 Status: Ordered predniSONE 10 mg oral tablet See Instruction, Oral, Daily, 6 tabs daily x3 days, 4 tabs daily x3 days, 3 tabs daily x3 days, 2 tab daily x3 days, # 45 tab, 0 Refill(s), Pharmacy: [facility] 4156, 153.3, cm, 09/17/23 12:47:00 EDT, Height, 81.65, kg, 09/17/23 12:54:00 EDT, Weight Dosing Start Date: 10/30/23 Status: Ordered torsemide 10 mg oral tablet 10 mg = 1 tab, Oral, Daily, # 30 tab, 0 Refill(s), Pharmacy: [facility] 4156, 153.3, cm, 09/17/23 12:47:00 EDT, Height, 81.65, kg, 09/17/23 12:54:00 EDT, Weight Dosing Start Date: 09/17/23 Status: Ordered traMADol 50 mg oral tablet 100 mg = 2 tab, Oral, every 8 hr, PRN as needed for pain, # 168 tab, 0 Refill(s), Pharmacy: [place] [address], 154, cm, 08/21/23 11:26:00 EDT, Height, 82.7, kg, 08/27/23 8:05:00 EDT, Weight Dosing Start Date: 08/31/23 Status: Ordered Vitamin C 500 mg oral tablet 500 mg = 1 tab, Oral, Daily, # 90 tab, 0 Refill(s), Pharmacy: [place] [facility]146, 156, cm, 03/27/22 9:33:00 EDT, Height/Length Dosing, 68.04, kg, 03/27/22 9:33:00 EDT, Weight Dosing Start Date: 08/15/22 Status: Ordered Wegovy (0.25 mg dose) subcutaneous solution 0.25 mg =, Subcutaneous, every week, in the abdomen, thigh, or upper arm, # 2 mL, 0 Refill(s), Pharmacy: [facility]156, 153.3, cm, 09/17/23 [...] Overview: Added automatically from request for surgery [id number] 2Outside Source Comment: Overview: Added automatically from request for surgery [id number] Procedures Procedure Date Related Diagnosis Body Site [...] 5 year call-back 5Sisson 6right, d/t cyst 43169 with Left salpingectomy Social History Social History Type Response Smoking Status Smoking tobacco use: Current everyday tobacco user;Never; Number used per day: 1.5 PPD; entered on: 1/8/24 Sex Female History and physical note * Event Display: History and Physical Update Authored Date: [id number] Patient Care team information Care Team Personnel Name: Dilan Hernandez MD Position: Physician Member Role: Informed Provider Address: Address: [id number] [place] [address] Care Team Related Persons Name: LIAM QUIGLEY Address: [address] [address] Address: [address] [phone] Address: Mailing [address] [place] [phone] Name: GRACIELA COUCH Address: [address] [phone]
--- OUTSIDE RECORDS SUMMARY | 2024-07-07 20:04 | XMS_ITS | Continuity of Care Document ---
Author Organization [facility] Address [address] [place] [address] Care Team Providers Care Yeast Culture Developer Name Role Phone Dilan Hernandez Primary Care Physician [phone] Encounter [facility] [id number] Date(s): 05/20/23 - 05/20/23 [facility] [address] [place] [address] Discharge Disposition: Home or Self Care Attending [...] Inactivated Influenza 01/20/2019 Administered by NOEMÍ HERNANDEZ, Transit Operator 04-09-2020 2Result Comment: influenza, trivalent, adjuvanted VIS given: 03-24-2019 VIS published date: Inactivated Influenza 01/20/2019 Administered by SOWMYA MCMILLAN, Transit Operator 03-24-2019 3Result Comment: influenza, high dose seasonal Administered by: SULTANA 4Result Comment: William 5Result Comment: influenza, high-dose, quadrivalent Patient Declined Last Modified by SOWMYA MCMILLAN Transit Operator 06-21-2020, 11:26 Medications Albuterol (Eqv-ProAir HFA) 90 mcg/inh inhalation aerosol 2 puffs, Inhale, every 4 hr, # 8.5 g, 6 Refill(s), Pharmacy: [facility]156, 156, cm, 03/27/22 [...] DAILY, # 90 tab, 3 Refill(s), Pharmacy: [facility] 415, 156, cm, 03/27/22 9:33:00 EDT, Height/Length Dosing, 68.04, kg, 03/27/22 9:33:00EDT, Weight Dosing Start Date: 05/12/22 Status: Ordered ferrous sulfate 325 mg (65 mg elemental iron) oral delayed release tablet 325 mg = 1 tab, Oral, Daily, # 90 tab, 0 Refill(s), Pharmacy: [place] [address], 156, cm, 03/27/22 9:33:00 EDT, Height/Length Dosing, 68.04, kg, 03/27/22 9:33:00 EDT, Weight Dosing Start Date: 08/15/22 Status: Ordered ipratropium-albuterol 0.5 mg-2.5 mg/3 mL inhalation solution See Instructions, USE 1 AMPULE IN NEBULIZER EVERY 4 HOURS NEEDED FOR SHORTNESS OF BREATH OR WHEEZING, # 90 mL, 4 Refill(s), Pharmacy: [place] [address], 154, cm, 04/03/23 18:11:00 EDT, Height/Length Dosing, 76.6, kg, 04/15/23 11:00:00 EST, Weight Dosing Start Date: 04/15/23 Status: Ordered Lyrica 25 mg oral capsule 25 mg = 1 cap, Oral, TID, # 90 cap, 3 Refill(s), Pharmacy: [facility], 155, cm, 05/04/2310:37:00 EST, Height, 78.97, kg, 05/14/23 10:34:00 EST, Weight Dosing Start Date: 05/14/23 Status: Ordered omeprazole 40 mg oral delayed release capsule 40 mg = 1 cap, Oral, Daily, # 90 cap, 3 Refill(s), Pharmacy: [facility], 155, cm, 12/04/22 20:52:00 EDT, Height/Length Dosing, 69.4, kg, 12/04/22 20:52:00 EDT, Weight Dosing Start Date: 01/29/23 Status: Ordered Oxygen Therapy Supply, See instructions, # 1 EA, 0 Refill(s) Start Date: 11/19/22 Status: Ordered Ozempic 2 mg/3 mL (0.25 mg or 0.5 mg dose) subcutaneous solution 0.25 mg =, Subcutaneous, every week, rotate injection sites, # 1 EA, 0 Refill(s), Pharmacy: [place] [address], 154, cm, 04/03/23 18:11:00 EDT, Height/Length Dosing, 76.35, kg, 04/23/23 14:48:00 EST, Weight Dosing Start Date: 04/27/23 Status: Ordered pramipexole 1 mg oral tablet See Instructions, 0 Refill(s) Start Date: 04/15/23 Status: Ordered pramipexole 1 mg oral tablet See Instructions, Take 2 tablets by mouth twice daily, # 120 tab, 0 Refill(s), Pharmacy: [place] [address], 154, cm, 04/03/23 18:11:00 EDT, Height/Length Dosing, 76.35, kg, 04/23/23 14:48:00 EST,Weight Dosing Start Date: 04/27/23 Status: Ordered Trelegy Ellipta 100 mcg-62.5 mcg-25 mcg/inh inhalation powder See Instructions, INHALE 1 PUFF ONCE DAILY AT THE SAME TIME EACH DAY, # 60 EA, 4 Refill(s), Pharmacy: [place] [address], 155, cm, 12/04/22 20:52:00 EDT, Height/Length Dosing, 69.4, kg, 12/04/22 20:52:00 EDT, Weight Dosing Start Date: 03/17/23 Status: Ordered Vitamin C 500 mg oral tablet 500 mg = 1 tab, Oral, Daily, # 90 tab, 0 Refill(s), Pharmacy: [facility] 415, 156, cm, 03/27/22 [...] Overview: Added automatically from request for surgery [id number] 2Outside Source Comment: Overview: Added automatically from request for surgery [id number] Procedures Procedure Date Related Diagnosis Body Site [...] 5 year call-back 5Sisson 6right, d/t cyst [id number]/1983 with Left salpingectomy Social History Social History Type Response Smoking Status Smoking tobacco use: Current everyday tobacco user;Never; Number used per day: 1.5 PPD; entered on: 04/02/23 Sex Female History and physical note * Event Display: History and Physical Update Authored Date: [id number] Patient Care team information Care Team Personnel Name: Dilan Hernandez MD Position: Physician Member Role: Informed Provider Address: Address: [address] [address] Care Team Related Persons Name: LIAM QUIGLEY Address: Alternate [address] [place] [address], [address] Address: Home [address] [place], [place] [phone] Address: Mailing [address] [place] [phone] Name: LIAM QUIGLEY Address: Alternate [address] [place] [address], [address] Address: Home [address] [place] [phone] Address: Mailing [address] [place] [phone] Name: GRACIELA COUCH Address: Home [address] [place] [phone]
--- OUTSIDE RECORDS SUMMARY | 2024-07-07 20:04 | XMS_ITS | Continuity of Care Document ---
Author Organization [facility] Address [address] [place] [address] Care Team Providers Care Tetryl Wringer Operator Name Role Phone Dilan Hernandez Primary Care Physician [facility] 09/28[facility]23 - 09/28/23 [facility] [address] [place] [address] Discharge Disposition: Home Allergies, Adverse Reactions, Alerts [...] Inactivated Influenza 01/20/2019 Administered by NOEMÍ HERNANDEZ, Container Coordinator 04-09-2020 2Result Comment: influenza, trivalent, adjuvanted VIS given: 03-24-2019 VIS published date: Inactivated Influenza 01/20/2019 Administered by SOWMYA MCMILLAN, Container Coordinator 03-24-2019 3Result Comment: influenza, high dose seasonal Administered by: SULTANA 4Result Comment: William 5Result Comment: Moderna bivalent, 6+ months, blue cap 6Result Comment: influenza, high-dose, quadrivalent Patient Declined Last Modified by SOWMYA MCMILLAN, Container Coordinator 06-21-2020, 11:26 Medications Albuterol (Eqv-ProAir HFA) 90 mcg/inh inhalation aerosol 2 puffs, Inhale, every 4 hr, # 8.5 g, 6 Refill(s), Pharmacy: [facility], 155, cm, 05/04/23 10:37:00 EST, Height, 81.6, kg, 07/01/23 15:10:00 EST, Weight Dosing Start Date: 07/01/23 Status: Ordered apixaban 5 mg oral tablet 5 mg = 1 tab, Oral, BID, # 60 tab, 3 Refill(s), Pharmacy: [facility] 4156, 155, cm, 05/04/23 [...] DAILY, # 90 tab, 3 Refill(s), Pharmacy: [facility] 4156, 155, cm, 05/04/23 10:37:00 EST, Height, 81.6, kg, 07/01/23 15:10:00 EST, Weight Dosing Start Date: 07/01/23 Status: Ordered ferrous sulfate 325 mg (65 mg elemental iron) oral delayed release tablet 325 mg = 1 tab, Oral, Daily, # 90 tab, 0 Refill(s), Pharmacy: [place] [address], 156, cm, 03/27/22 9:33:00 EDT, Height/Length Dosing, [...] WHEEZING, # 90 mL, 4 Refill(s), Pharmacy: [facility] 4156, 155, cm, 05/04/23 10:37:00 EST, Height, 81.51, kg, 07/23/23 10:33:00 EST, Weight Dosing Start Date: 08/03/23 Status: Ordered Medrol Dosepak 4 mg oral tablet 1 packets, Oral, Daily, as directed on package labeling, # 21 tab, 0 Refill(s), Pharmacy: [place] [address], 153.3, cm, 09/17/23 12:47:00 EDT, Height, 81.65, kg, 09/17/23 12:54:00 EDT, Weight Dosing Start Date: 09/28/23 Stop Date: 10/04/23 Status: Ordered omeprazole 40 mg oral delayed release capsule 40 mg = 1 cap, Oral, Daily, # 90 cap, 3 Refill(s), Pharmacy: [facility], 155, cm, 12/04/22 20:52:00 EDT, Height/Length Dosing, 69.4, kg, 12/04/22 20:52:00 EDT, Weight Dosing Start Date: 01/29/23 Status: Ordered Oxygen Therapy Supply, See instructions, # 1 EA, 0 Refill(s) Start Date: 11/19/22 Status: Ordered pramipexole 1 mg oral tablet See Instructions, Take 2 tablets by mouth twice daily, # 120 tab, 6 Refill(s), Pharmacy: [place] [address], 155, cm, 05/04/23 10:37:00 EST, Height, 78.97, kg, 05/14/23 10:34:00 EST, Weight Dosing Start Date: 05/29/23 Status: Ordered torsemide 10 mg oral tablet 10 mg = 1 tab, Oral, Daily, # 30 tab, 0 Refill(s), Pharmacy: [place] [address], 153.3, cm, 09/17/23 12:47:00 EDT, Height, 81.65, kg, 09/17/23 12:54:00 EDT, Weight Dosing Start Date: 09/17/23 Status: Ordered traMADol 50 mg oral tablet 100 mg = 2 tab, Oral, every 8 hr, PRN as needed for pain, # 168 tab, 0 Refill(s), Pharmacy: [place] [address], 154, cm, 08/21/23 11:26:00 EDT, Height, 82.7, kg, 08/27/23 8:05:00 EDT, Weight Dosing Start Date: 08/31/23 Status: Ordered Vitamin C 500 mg oral tablet 500 mg = 1 tab, Oral, Daily, # 90 tab, 0 Refill(s), Pharmacy: [facility], 156, cm, 03/27/22 [...] Overview: Added automatically from request for surgery [id number] 2Outside Source Comment: Overview: Added automatically from request for surgery [id number] Procedures Procedure Date Related Diagnosis Body Site [...] 5 year call-back 5Sisson 6right, d/t cyst [id number]/1983 with Left salpingectomy Social History Social History Type Response Smoking Status Smoking tobacco use: Current everyday tobacco user;Never; Number used per day: 1.5 PPD; entered on: 06/15/23 Sex Female History and physical note * Event Display: History and Physical Update Authored Date: [id number] Patient Care team information Care Team Personnel Name: Dilan Hernandez MD Position: Physician Member Role: Informed Provider Address: Address: [address] Care Team Related Persons Name: LIAM QUIGLEY Address: [address] [address] Address: Home [address] [place] [phone] Address: Mailing [address] [place] [phone] Name: GRACIELA COUCH Address: Home [address] [place] [phone]
--- OUTSIDE RECORDS SUMMARY | 2024-07-07 20:04 | XMS_ITS | Continuity of Care Document ---
Author Organization [facility] Address [address] [place] [address] Care Team Providers Care Mining Technician Name Role Phone Dilan Hernandez Primary Care Physician [phone] Encounter [facility] Date(s): 05/24/24 - 05/25/[address] [id number] Encounter Diagnosis Left lower quadrant pain(Final) - Constipation, unspecified(Final) - Urinary tract infection, site not specified(Final) - Elevated white blood cell count, unspecified(Final) - Anxiety disorder, unspecified(Final) - Type 2 diabetes mellitus without complications(Final) - Low back pain, unspecified(Final) - Nicotine dependence, unspecified, uncomplicated(Final) - UTI (urinary tract infection)(Discharge Diagnosis) - 05/24/24 Leukocytosis(Discharge Diagnosis) - 05/24/24 Abdominal pain(Discharge Diagnosis) - 05/24/24 Anxiety disorder(Discharge Diagnosis) - 05/25/24 Chronic obstructive lung disease(Discharge Diagnosis) - 05/25/24 Degeneration of lumbar intervertebral disc(Discharge Diagnosis) - 05/25/24 Diabetes(Discharge Diagnosis) - 05/25/24 Low back pain(Discharge Diagnosis) - 05/25/24 Tobacco user(Discharge Diagnosis) - 05/25/24 Nicotine dependence(Discharge Diagnosis) - 05/25/24 Chronic obstructive pulmonary disease, unspecified(Final) - Discharge Disposition: Home or Self Care Attending Physician: Wilfredo Chavez DO Admitting Physician: Sandra Hung Referring Physician: Martin Chan MD Encounter Type: Observation Allergies, Adverse Reactions, Alerts No Known Medication Allergies Assessment and Plan Extracted from: Title:Discharge Note Author:Wilfredo Chavez Gracie s DO Date:05/25/24 Discharge Plan 1.??UTI (urinary tract infection)??N39.0 2.??Leukocytosis??D72.829 3.??Abdominal pain??R10.9 5.??Anxiety disorder??F41.9 6.??Chronic obstructive lung disease??J44.9 7.??Degeneration of lumbar intervertebral disc??M51.360 8.??Diabetes??E11.9 9.??Low back pain??M54.50 10.??Tobacco user??Z72.0 11.??Nicotine dependence??F17.200 Orders: Albuterol (Eqv-ProAir HFA) 90 mcg/inh inhalation aerosol, 2 inh, Inhale, Aerosol, every 4 hr RT, PRN shortness of breath, First Dose: 05/25/24 12:46:00 EST albuterol, 2.5 mg = 3 mL, Inhale, Soln, every 4 hr RT, PRN wheezing, First Dose: 05/25/24 7:12:00 EST levoFLOXacin, 750 mg = 150 mL, IV Piggyback, Soln-IV, every 24 hr, Antibiotic Indication Pneumonia, Administer over: 1.5 hr, First Dose: 05/25/24 13:00:00 EST, Routine, 100 mL/hr levoFLOXacin 750 mg oral tablet, 750 mg = 1 tab, Oral, every 24 hr, # 5 tab, 0 Refill(s), Pharmacy: [facility], 155, cm, 05/24/24 22:30:00 EST, Height, 70.95, kg, 05/24/24 22:31:00 EST, Weight Dosing Follow Up With When Contact Information Dilan Hernandez MD Within [address] [place] [address]- Additional Instructions: Extracted from: Title:H & P Author:Sandra Hung D ate:05/24/24 1.??UTI (urinary tract infec tion)??N39.0 Urine + blood + nitrites CT suggesting there is air in the bladder wall? Treated with Zosyn - will continue BC pending UC pending ? Ordered: PSO Place in Observation, Observation, Observation, Scott Wilfredo Sonny DO, 05/24/24 21:52:00 EST, 05/24/24 21:52:00 EST, 05/24/24 21:52:00 EST, 1 midnight or less ?? 2.??Leukocytosis??D72.829 Zosyn started in ED will continue?? Trend BC pending Oral fluids ? Ordered: PSO Place in Observation, Observation, Observation, Wilfredo Chavez DO, 05/24/24 21:52:00 EST, 05/24/24 21:52:00 EST, 05/24/24 21:52:00 EST, 1 midnight or less ?? 3.??Abdominal pain??R10.9 Resolved at time of admission Tylenol for pain/fever?? Patient reports no pain during admission interview.? Ordered: PSO Place in Observation, Observation, Observation, Wilfredo Chavez DO, 05/24/24 21:52:00 EST, 05/24/24 21:52:00 EST, 05/24/24 21:52:00 EST, 1 midnight or less ?? 5.??Anxiety disorder??F41.9 ??Chronic Continue home meds ?? 6.??Chronic obstructive lung disease??J44.9 Chronic Continue home meds and??home O2? 7.??Degeneration of lumbar intervertebral disc??M51.360 assess for pain. tylenol??prn ?? 8.??Diabetes??E11.9 Hold metformin SS insulin? 9.??Low back pain??M54.50 Chronic - usually takes ibuprofen - offered Aleve ? 10.??Tobacco user??Z72.0 ?? 11.??Nicotine dependence??F17.200 Patch ?? Orders: acetaminophen, 650 mg = 2 tab, Oral, Tab, every 6 hr, PRN pain, mild, First Dose: 05/24/24 22:11:00 EST, Routine bisacodyl, 10 mg = 1 supp, Rectal, Supp, Daily, PRN constipation, First Dose: 05/24/24 22:11:00 EST, Routine escitalopram, 10 mg = 1 tab, Oral, Tab, Daily, First Dose: 05/25/24 9:00:00 EST, Routine ferrous sulfate, 325 mg = 1 tab, Oral, Tab, Daily, First Dose: 05/25/24 9:00:00 EST, Routine GlucaGen, 1 mg = 1 EA, Intramuscular, Kit, As Directed, PRN low blood sugar, First Dose: 05/24/24 22:11:00 EST, Routine Dextrose 50% intravenous solution, 12.5 g 25 mL, IV Push, Soln-IV, As Directed, PRN low blood sugar, First Dose: 05/24/24 22:11:00 EST, Routine glucose 40% oral gel, 30 g = 75 mL, Oral, Gel, As Directed, PRN low blood sugar, First Dose: 05/24/24 22:11:00 EST, Routine glucose 40% oral gel, 15 g = 37.5 mL, Oral, Gel, As Directed, PRN low blood sugar, First Dose: 05/24/24 22:11:00 EST, Routine Dextrose 50% intravenous solution, 25 g 50 mL, IV Push, Soln-IV, As Directed, PRN low blood sugar, First Dose: 05/24/24 22:11:00 EST, Routine insulin lispro (HumaLog) correction- sensitive, Sensitive Scale, Subcutaneous, Soln, QID(ACHS), First Dose: 05/25/24 7:30:00 EST, Routine lidocaine 1% injectable solution, 1 mg 0.1 mL, Intradermal, Soln, As Directed, PRN other (see comment), First Dose: 05/24/24 22:11:00 EST, Routine morphine, 2 mg = 1 mL, IV Push, Soln-IV, every 2 hr, PRN pain, severe, First Dose: 05/24/24 22:11:00 EST, Routine Narcan, 0.4 mg = 1 mL, IV Push, Soln, Once, PRN Opioid Overdose, First Dose: 05/24/24 22:11:00 EST, Physician Stop, Routine nicotine 21 mg/24 hr Transderm ER Film, 21 mg 1 patches, Transdermal, Film, every 24 hr, First Dose: 05/25/24 1:21:00 EST, Routine Nicotine Patch Removal, 1 EA, Transdermal, Misc, every 24 hr, First Dose: 05/26/24 1:21:00 EST, Routine ondansetron, 4 mg = 2 mL, IV Push, Soln, every 6 hr, PRN nausea/vomiting, First Dose: 05/24/24 22:11:00 EST, Routine pantoprazole, 40 mg = 1 EA, IV Push, Powder-Inj, Daily, First Dose: 05/25/24 6:00:00 EST, Routine piperacillin-tazobactam + Sodium Chloride 0.9% 100 mL, 3.375 g = 1 EA, IV Piggyback, Powder-Inj, every 8 hr, Antibiotic Indication Abdominal, other, Administer over: 4 hr, First Dose: 05/25/24 5:00:00 EST, Routine, 25 mL/hr polyethylene glycol 3350, 17 g = 1 packets, Oral, Powder-Recon, BID, First Dose: 05/25/24 9:00:00 EST, Routine pramipexole, 2 mg = 2 tab, Oral, Tab, every night at bedtime, First Dose: 05/25/24 1:30:00 EST pramipexole, 1 mg = 1 tab, Oral, Tab, every morning, First Dose: 05/25/24 8:00:00 EST senna, 17.2 mg = 2 tab, Oral, Tab, BID, First Dose: 05/25/24 9:00:00 EST, Routine Normal Saline Flush, 10 mL, IV Push, Soln, every 12 hr (bhupinder), First Dose: 05/25/24 9:00:00 EST, Routine Sodium Chloride 0.9% 1,000 mL, Total Volume (mL): 1,000, 1,000 mL, Soln-IV, IV, 30 mL/hr, Start Date: 05/24/24 22:11:00 EST, 74 kg, Populate Charting Weight From Order spironolactone, 12.5 mg = 0.5 tab, Oral, Tab, Daily, First Dose: 05/25/24 9:00:00 EST, Routine torsemide, 40 mg = 2 tab, Oral, Tab, Daily, First Dose: 05/25/24 1:25:00 EST, Routine traMADol, 50 mg = 1 tab, Oral, Tab, every 4 hr, PRN pain, moderate, First Dose: 05/24/24 22:11:00 EST, Routine Ambulate as Tolerated, 05/24/24 22:11:00 EST, PRN Basic Metabolic Panel, Blood, Routine, 05/24/24 22:11:00 EST, every morning, for 3 days, Lab Collect CBC w/ Diff, Blood, Routine, 05/24/24 22:11:00 EST, every morning, for 3 days, Lab Collect Consult to Pharmacy, 05/24/24 22:11:00 EST, Medication History Consult, PCU General Admission Orders NCTY Diet Order, 05/24/24 22:11:00 EST, Clear Liquids Intake and Output, 05/24/24 22:11:00 EST, Constant Indicator, every 8 hrs, 05/24/24 22:11:00 EST Magnesium Level, Blood, Routine, 05/24/24 22:11:00 EST, every morning, for 3 days, Lab Collect Notify Provider of Vital Signs, 05/24/24 22:11:00 EST, SpO2 < 92% on 2L O2 NC, T > 101.5, HR > 100, HR < 50, SBP greater than 160, SBP less than 90, DBP greater than 90, DBP less than 50, Resp Rate greater than 30, Resp Rate less than 8, Constant Indicator Nursing Task, 05/24/24 22:11:00 EST, Constant order Nursing Task, 05/24/24 22:11:00 EST, Constant order Oxygen Therapy, SpO2 goal 90% or greater, PRN, Sandra Hung Resuscitation Status, 05/24/24 22:11:00 EST, Full Code Urine Culture, Urine, Clean Catch, Routine collect, RT - Routine, 05/25/24 1:05:00 EST, Once, Nurse collect Vital Signs, 05/24/24 22:11:00 EST, Constant order, every 4 hrs Weight, 05/24/24 22:11:00 EST, every morning Extracted from: Title:Clinical Document Author:Miguel Arauz MD Date:05/24/24 I took over care of the enedina ent around 9 PM waiting for the results of the CT scan. The scan came back and the radiologist call me to discuss. He sees air that may be inside the bladder and inside or adjacent to the bladder wall. They thought perhaps a pneumocystitis may be present. Patient's white count is elevated and she came with abdominal pain. However her urinalysis looks fairly benign so seems less likely however with the free air were does not belong will treat her with Zosyn and admit her for IV antibiotics and repeat evaluation. She may need repeat imaging and may need to discuss this with urology at a tertiary care center or one of her surgeons in the morning. Diagnosis: Free air in the abdomen, abdominal pain, leukocytosis Plan admit for IV antibiotics. 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, Health and wellness, Hobbies/Play/Sports, Home management, Housework, Laundry, Meal preparation, Personal ADL Current Home Treatments Nebulizer treatm ents, Oxygen therapy Home Equipment Powered mobility dev ice, Shower chair Special Services and Community Resources None Number of Stairs Outside 4 05/24/24 Family Member Travel History No recent t [...] 02/16/23 Record ed influenza, unspecified formulation 3 11/2/20 Mika rded influenza, unspecified formulation 4 03/24/19 [...] Refuses 1Result Comment: right arm,exp 12/05/2024, lot [id number] at [facility] 2Result Comment: left arm, exp 10/28/2024, lot [id number] at [facility] 3Result Comment: influenza, high-dose, quadrivalent VIS given: 04-09-2020 VIS published date: Inactivated Influenza 01/20/2019 Administered by NOEMÍ HERNANDEZ, Pharmaceutical Service Representative 04-09-2020 4Result Comment: influenza, trivalent, adjuvanted VIS given: 03-24-2019 VIS published date: Inactivated Influenza 01/20/2019 Administered by SOWMYA MCMILLAN, Pharmaceutical Service Representative 03-24-2019 5Result Comment: influenza, high dose seasonal Administered by: SULTANA 6Result Comment: William 7Result Comment: Moderna bivalent, 6+ months, blue cap 8Result Comment: influenza, high-dose, quadrivalent Patient Declined Last Modified by SOWMYA MCMILLAN, Pharmaceutical Service Representative 06-21-2020, 11:26 Medications Albuterol (Eqv-ProAir HFA) 90 mcg/inh inhalation aerosol 2 puffs, Inhale, every 4 hr, # 18 g, 6 Refill(s), Pharmacy: [facility], 153.3, cm, 09/17/23 12:47:00 EDT, Height, 80.25, kg, 02/17/24 13:55:00 EDT, Weight Dosing Start Date: 02/17/24 Status: Ordered Quantity: 18.0 Unit: g Repeat number: 7 Indication: Chronic obstructive pulmonary disease, unspecified Breztri Aerosphere 160 mcg-9 mcg-4.8 mcg/inh inhalation aerosol 2 puffs, Inhale, BID, rinse mouth and throat after use, # 10.7 g, 6 Refill(s), Pharmacy: [facility], 153.3, cm, 09/17/23 12:47:00 EDT, Height, 80.25, kg, 02/17/24 13:55:00 EDT, Weight Dosing Start Date: 02/17/24 Status: Ordered Quantity: 10.7 Unit: g Repeat number: 7 cephalexin 250 mg oral capsule See Instructions, TAKE 1 CAPSULE BY MOUTH ONCE DAILY, # 90 cap, 0 Refill(s), Pharmacy: [facility], 153.3, cm, 09/17/23 12:47:00 EDT, Height, 74, kg, 04/25/24 14:11:00 EST, Weight Dosing Start Date: 05/17/24 Status: Ordered Quantity: 90.0 Unit: cap Repeat number: 1 COPD J44.1 COPD J44.1, Please include tubing [...] # 90 tab, 3 Refill(s), Pharmacy: [facility], 155, cm, 05/04/23 10:37:00 EST, Height, 81.6, kg, 07/01/23 15:10:00 EST, Weight Dosing Start Date: 07/01/23 Status: Ordered Quantity: 90.0 Unit: tab Repeat number: 4 ferrous sulfate 325 mg (65 mg elemental iron) oral delayed release tablet 325 mg = 1 tab, Oral, Daily, # 90 tab, 0 Refill(s), Pharmacy: [facility], 156, cm, 03/27/22 [...] WHEEZING, # 360 EA, 4 Refill(s), Pharmacy: [facility], 153.3, cm, 09/17/23 12:47:00 EDT, Height, 81.5, kg, 12/17/23 9:09:00 EDT, Weight Dosing Start Date: 12/17/23 Status: Ordered Quantity: 360.0 Unit: EA Repeat number: 5 levoFLOXacin 750 mg oral tablet 750 mg = 1 tab, Oral, every 24 hr, # 5 tab, 0 Refill(s), Pharmacy: [facility], 155, cm, 05/24/24 22:30:00 EST, Height, 70.95, kg, 05/24/24 22:31:00 EST, Weight Dosing Start Date: 05/26/24 Stop Date: 05/31/24 Status: Ordered Quantity: 5.0 Unit: tab Repeat number: 1 nicotine 21 mg/24 hr transdermal film, extended release 1 patches, Transdermal, Daily, apply to skin, # 30 patches, 1 Refill(s), Pharmacy: [id number], 153.3, cm, 09/17/23 12:47:00 EDT, Height, 74, kg, 04/25/24 14:11:00 EST, Weight Dosing Start Date: 04/25/24 Status: Ordered Quantity: 30.0 Unit: patches Repeat number: 2 Indication: Nausea nicotine 4 mg oral transmucosal gum 4 mg = 1 EA, Chewed, every 2 hr, PRN as needed for smoking cessation, # 160 EA, 1 Refill(s), Pharmacy: [facility], 153.3, cm, 09/17/23 12:47:00 EDT, Height, 74, kg, 04/25/24 14:11:00 EST, Weight Dosing Start Date: 04/25/24 Status: Ordered Quantity: 160.0 Unit: EA Repeat number: 2 Indication: Nausea omeprazole 40 mg oral delayed release capsule 40 mg = 1 cap, Oral, Daily, # 90 cap, 3 Refill(s), Pharmacy: [facility], 155, cm, 12/04/22 20:52:00 EDT, Height/Length Dosing, 69.4, kg, 12/04/22 20:52:00 EDT, Weight Dosing Start Date: 01/29/23 Status: Ordered Quantity: 90.0 Unit: cap Repeat number: 4 ondansetron 8 mg oral tablet See Instructions, PRN nausea, 1 tab Oral every 6 hours as needed for nausea, # 56 tab, 1 Refill(s),Pharmacy: [facility], 153.3, cm, 09/17/23 12:47:00 [...] week, # 9 mL, 3 Refill(s), Pharmacy: [facility], 153.3, cm, 09/17/23 12:47:00 EDT, Height, 80.25, kg, 02/17/24 13:55:00 EDT, Weight Dosing Start Date: 03/23/24 Status: Ordered Quantity: 9.0 Unit: mL Repeat number: 4 Indication: Type 2 diabetes mellitus without complications potassium bicarbonate 20 mEq oral tablet, effervescent 20 mEq = 1 tab, Oral, BID, dissolve in water or juice, # 60 tab, 1 Refill(s), Pharmacy: [id number], 153.3, cm, 09/17/23 12:47:00 EDT, Height, 80.25, kg, 02/17/24 13:55:00 EDT, Weight Dosing Start Date: 02/17/24 Status: Ordered Quantity: 60.0 Unit: tab Repeat number: 2 pramipexole 1 mg oral tablet See Instructions, Take 1 tablets by mouth QAM and two tablets QPM, # 90 tab, 6 Refill(s), Pharmacy:[id number], 153.3, cm, 09/17/23 12:47:00 EDT, Height, 80.25, [...] Daily, # 60 tab, 1 Refill(s), Pharmacy: [facility], 153.3, cm, 09/17/23 12:47:00 EDT, Height, 74, kg, 04/25/24 14:11:00 EST, Weight Dosing Start Date: 05/17/24 Status: Ordered Quantity: 60.0 Unit: tab Repeat number: 2 Vitamin C 500 mg oral tablet 500 mg = 1 tab, Oral, Daily, # 90 tab, 0 Refill(s), Pharmacy: [facility] [address], 156, cm, 03/27/22 9:33:00 EDT, Height/Length Dosing, 68.04, kg, 03/27/22 9:33:00 EDT, Weight Dosing Start Date: 08/15/22 Status: Ordered Quantity: 90.0 Unit: tab Repeat number: 1 Mental Status 05/24/24 Eye Opening Response Whit Spontaneous ly Best Verbal Response [place] Oriented Best Motor Response Whit Obeys comman ds Whit Coma Score 15 Problem List Condition Confirmation [...] Overview: Added automatically from request for surgery [id number] 2Outside Source Comment: Overview: Added automatically from request for surgery [id number] Procedures Procedure Date Related Diagnosis Body Site [...] 5 year call-back 5Sisson 6right, d/t cyst [id number] with Left salpingectomy Results Laboratory List Name Date Glucose POCT 05/25/24 Glucose POCT 05/25/24 .Manual Differential (NCTY) 05/25/24 Basic Metabolic Panel 05/25/24 C-Reactive Protein (CRP) 05/25/24 CBC w/ Diff 05/25/24 Magnesium Level 05/25/24 Lactic Acid 05/24/24 SARS-CoV-2 (COVID-19) RNA (ID Now) 05/24 Urinalysis Microscopic 05/24/24 Urinalysis with Micro if Indicated and C ulture if Indicated 05/24/24 CBC w/ Diff 05/24/24 Comprehensive Metabolic Panel (CMP) 05/08 12/29 Lipase Level 05/24/24 .Manual Differential (NCTY) 05/24/24 Most recent to oldest [Reference Range]: 1 2 Estimated Creatinine Clearance 59.95 mL/ min 1 (05/25/24 7:28 AM) 55.84 mL/min 2 (05/24/24 10:31 PM) WBC [5.0-10.0 x10^3/mcL] 20.1 x10^3/mcL *HI* (05/25/24 6:50 AM) 22.1 x10^3/mcL *HI* (05/24/24 6:00 PM) RBC [4.1-5.3 x10^6/mcL] 4.2 x10^6/mcL (05/25/24 6:50 AM) 4.4 x10^6/mcL (05/24/24 6:00 PM) Segs Man [40-75 %] 72 % (05/25/24 6:50 AM) 82 % *HI* (05/24/24 6:00 PM) Lymph Man [20-50 %] 15 % *LOW* (05/25/24 6:50 AM) 10 % *LOW* (05/24/24 6:00 PM) [place] Man [2-15 %] 7 % (05/25/24 6:50 AM) 7 % (05/24/24 6:00 PM) Eos Man [1-6 %] 2 % (05/25/24 6:50 AM) 1 % (05/24/24 6:00 PM) BUN [7-18 mg/dL] 16 mg/dL (05/25/24 6:50 AM) 16 mg/dL (05/24/24 6:00 PM) Glucose POC [74-106 mg/dL] 101 mg/dL (05/25/24 11:25 AM) 155 mg/dL *HI* (05/25/24 8:21 AM) UA Color Yellow (05/24/24 8:00 PM) UA WBC [0-3] 3-5 (05/24/24 8:00 PM) Glucose Level [74-106 mg/dL] 112 mg/dL *HI* (05/25/24 6:50 AM) 111 mg/dL *HI* (05/24/24 6:00 PM) Lymph, Atyp Man 4 % *NA* (05/25/24 6:50 AM) Potassium Level [3.5-5.1 mmol/L] 3.4 mmo l/L *LOW* (05/25/24 6:50 AM) 3.2 mmol/L *LOW* (05/24/24 6:00 PM) MCV [80.0-96.0 fL] 87.8 fL (05/25/24 6:50 AM) 86.3 fL (05/24/24 6:00 PM) UA Urobilinogen Normal (05/24/24 8:00 PM) RBC Morph Normal (05/25/24 6:50 AM) Normal (05/24/24 6:00 PM) UA Bili [Negative] Negative (05/24/24 8:00 PM) CRP [<=10.0 mg/L] 178.3 mg/L *HI* (05/25/24 6:50 AM) UA Ketones Negative (05/24/24 8:00 PM) AST [15-37 unit/L] 18 unit/L (05/24/24 6:00 PM) ALT [14-59 unit/L] 23 unit/L (05/24/24 6:00 PM) MCHC [31.0-35.0 g/dL] 33.3 g/dL (05/25/24 6:50 AM) 33.8 g/dL (05/24/24 6:00 PM) Sodium Level [136-145 mmol/L] 133 mmol/L *LOW* (05/25/24 6:50 AM) 134 mmol/L *LOW* (05/24/24 6:00 PM) UA RBC [0-2] 0-2 (05/24/24 8:00 PM) UA Leuk Est Negative (05/24/24 8:00 PM) UA Nitrite Positive *ABN* (05/24/24 8:00 PM) UA Glucose [Negative] Negative (05/24/24 8:00 PM) Hct [37.0-47.0 %] 36.6 % *LOW* (05/25/24 6:50 AM) 37.9 % (05/24/24 6:00 PM) UA Bacteria Rare /HPF (05/24/24 8:00 PM) Lipase Level [16-77 unit/L] 15 unit/L 3 *LOW* (05/24/24 6:00 PM) Calcium Level [8.5-10.1 mg/dL] 8.7 mg/dL (05/25/24 6:50 AM) 9.2 mg/dL (05/24/24 6:00 PM) Albumin Level [3.4-5.0 g/dL] 3.3 g/dL *LOW* (05/24/24 6:00 PM) Protein Total [6.4-8.2 g/dL] 7.7 g/dL (05/24/24 6:00 PM) UA Protein Negative (05/24/24 8:00 PM) MCH [26.0-32.0 pg] 29.3 pg (05/25/24 6:50 AM) 29.2 pg (05/24/24 6:00 PM) Magnesium Level [1.8-2.4 mg/dL] 2.1 mg/d L (05/25/24 6:50 AM) Bilirubin Total [0.2-1.0 mg/dL] 0.4 mg/d L (05/24/24 6:00 PM) Hgb [12.0-16.0 g/dL] 12.2 g/dL (05/25/24 6:50 AM) 12.8 g/dL (05/24/24 6:00 PM) Alk Phos [46-146 unit/L] 114 unit/L (05/24/24 6:00 PM) UA Blood Trace *ABN* (05/24/24 8:00 PM) UA Mucous None Seen /HPF (05/24/24 8:00 PM) Band Man [0-5 %] 0 % (05/25/24 6:50 AM) 0 % (05/24/24 6:00 PM) UA Spec Grav <=1.005 *NA* (05/24/24 8:00 PM) Platelets [130-450 x10^3/mcL] 345 x10^3/ mcL (05/25/24 6:50 AM) 376 x10^3/mcL (05/24/24 6:00 PM) CO2 [21-32 mmol/L] 31 mmol/L (05/25/24 6:50 AM) 34 mmol/L *HI* (05/24/24 6:00 PM) Lactic Acid Lvl [0.7-2.0 mmol/L] <0.8 mm ol/L *LOW* (05/24/24 9:34 PM) UA Squam Epithelial [None Seen] Rare (05/24/24 8:00 PM) UA pH 7.5 *NA* (05/24/24 8:00 PM) eGFR Non-AA [>=60] 64 (05/25/24 6:50 AM) 58 *LOW* (05/24/24 6:00 PM) eGFR AA [>=60] 64 (05/25/24 6:50 AM) 58 *LOW* (05/24/24 6:00 PM) UA Appear Clear (05/24/24 8:00 PM) Chloride Level [98-107 mmol/L] 96 mmol/L *LOW* (05/25/24 6:50 AM) 94 mmol/L *LOW* (05/24/24 6:00 PM) RDW-CV [11.5-14.5 %] 14.4 % (05/25/24 6:50 AM) 14.3 % (05/24/24 6:00 PM) Plt Giant Rare (05/25/24 6:50 AM) Slide Review Man Diff (05/25/24 6:50 AM) Man Diff (05/24/24 6:00 PM) UA Culture Ind?. Not Indicated (05/24/24 8:00 PM) Abs Neut Man 14.5 x10^3/mcL *NA* (05/25/24 6:50 AM) 18.1 x10^3/mcL *NA* (05/24/24 6:00 PM) Creatinine Level [0.55-1.02 mg/dL] 0.95 mg/dL (05/25/24 6:50 AM) 1.02 mg/dL (05/24/24 6:00 PM) SARS-CoV-2 (COVID-19) RNA (I D Now) [Not Detected] Not Detected (05/24/24 9:14 PM) Plt Estimation [Adequate] Adequate (05/25/24 6:50 AM) Adequate (05/24/24 6:00 PM) Baso Man [0-1 %] 0 % (05/25/24 6:50 AM) 0 % (05/24/24 6:00 PM) 1Result Comment: Calculated using method: Cockroft-Gault (Actual Weight) 2Result Comment: Calculated using method: Cockroft-Gault (Actual Weight) 3Interpretive Data: Effective 03/27/22, [facility] has switched to a revised Lipase test.Note new ReferenceRange. Orders for Microbiology Reports Name Date Urine Culture 05/24/24 Microbiology Reports TEST:Urine Culture STATUS:Order in Progress BODY SITE: SOURCE:Urine, Catheterized COLLECTED DATE/TIME:05/24/24 8:00 PM PRELIMINARY REPORT >100,000 cfu/ml Klebsiella (Enterobacter) aerogenes Susceptibility to follow. Vital Signs Most recent to oldest [Reference Range]: 1 2 3 Temperature Temporal Artery [36-38 Deg C] 36.4 Deg C (05/25/24 11:28 AM) 36.2 Deg C (05/25/24 3:53 AM) 36.5 Deg C (05/24/24 11:46 PM) Peripheral Pulse Rate [60-100 bpm] 74 bpm (05/25/24 11:28 AM) 66 bpm (05/25/24 3:53 AM) 88 bpm (05/25/24 12:00 AM) Heart Rate Monitored [60-100 bpm] 74 bpm (05/25/24 12:43 PM) 76 bpm (05/25/24 7:17 AM) Respiratory Rate [12-24 br/min] 18 br/min (05/25/24 12:43 PM) 18 br/min (05/25/24 11:28 AM) 20 br/min (05/25/24 7:24 AM) Blood Pressure [90-120/60-80 mmHg] 94/71mmHg (05/25/24 11:28 AM) 110/63mmHg (05/25/24 3:53 AM) 113/65mmHg (05/24/24 11:46 PM) Mean Arterial Pressure, Cuff [65-140 mmHg] 88 mmHg (05/24/24 3:03 PM) Mean Arterial Pressure Cuff 79 mmHg (05/25/24 11:28 AM) 78 mmHg (05/25/24 3:53 AM) 80 mmHg (05/24/24 11:46 PM) Weight 71 kg (05/25/24 7:24 AM) 70.95 kg (05/24/24 10:30 PM) Weight Dosing 70.950 kg (05/24/24 10:30 PM) Weight Estimated 71.21 kg (05/24/24 3:03 PM) Height 155 cm (05/24/24 10:30 PM) BSA Measured 1.75 m2 (05/24/24 10:30 PM) BSA Estimated 0 m2 (05/24/24 10:30 PM) Body Mass Index 29.53 kg/m2 (05/24/24 10:30 PM) Body Mass Index Estimated 28.55 kg/m2 (05/24/24 3:03 PM) Height/Length Estimated 157.94 cm (05/24/24 3:03 PM) Social History Social History Type Response Smoking Status Smoking tobacco use: Current everyday tobacco user;Never; Number used per day: 1.5 PPD; entered on: 06/15/23 Sex Female Sex Representation Female (finding) Hospital Discharge Instructions Patient Education 05/25/2024 11:38:45 Antibiotic Medicine, Adult Antibiotic Medicine, Adult Antibiotic medicines are used to treat infections caused by bacteria. These medicines do not work for illnesses caused by viruses. Antibiotics work by killing the bacteria that are making you sick, but they can also have serious side effects. Antibiotics must be used safely and only when needed. When do I need to take antibiotics? You may need antibiotics for: ??? A urinary tract infection (UTI). ??? Strep throat. ??? Bacterial sinus infection. ??? Meningitis. ??? Serious lung infections. Your health care provider may start you on antibiotics while you are waiting for test results. Tests may include a culture of the throat, urine, blood, or mucus. Your health care provider may change or stop your antibiotic depending on your test results. When are antibiotics not needed? You do not need antibiotics for most common illnesses. These illnesses may be caused by a virus, not by bacteria. You do not need antibiotics for: ??? The common cold. ??? The flu (influenza). ??? Sore throat. ??? Discolored mucus. ??? Bronchitis. Antibiotics are not always needed for all infections caused by bacteria. Many of these infections clear up on their own. Do not take antibiotics when they are not needed. How long should I take my antibiotic? You must take the entire amount prescribed to you. Take your antibiotics as told by your health care provider. Do not stop taking your antibiotics even if you start to feel better. If you stop takingthem too soon: ??? You may feel sick again. ??? Your infection may get harder to treat. Each course of antibiotics needs a different length of time to work. The length of time may vary from a few days to a few weeks. What if I miss a dose? Try not to miss any doses of medicine. If you miss a dose, call your health care provider or pharmacist for help. Sometimes, it is okay to take the missed dose as soon as possible. Do not take doubleor extra doses. What are the risks of taking antibiotics? Antibiotics can cause: ??? Allergic reactions. ??? Nausea. ??? Yeast infections. ??? Liver problems. Antibiotics can also cause an infection called Clostridioides difficile (C. difficile or C. diff), which causes severe diarrhea. This infection happens when the antibiotics kill the healthy bacteria in your intestines. This allows C. diff to grow. C. diff needs to be treated right away. Let your health care provider know if: ??? You have diarrhea while taking an antibiotic. ??? You have diarrhea after you stop taking an antibiotic. C. diff infection can start weeks after stopping the antibiotic. Taking an antibiotic also puts you at risk for getting sick in the future with bacteria that do notrespond to medicine (antibiotic-resistant infection). Antibiotics can cause bacteria to change so that if the antibiotic is taken again, the medicine cannot kill the bacteria. These infections can bemore serious because they are hard, or sometimes impossible, to treat. Do antibiotics affect control? control pills may not work while you are taking antibiotics. If you are taking control pills: ??? Keep taking them as usual. ??? Use a second form of control, such as a condom, to avoid unwanted . Do this for as long as told by your health care provider. What else should I know about taking antibiotics? Take antibiotics exactly as told. ??? Take the correct amount of medicine at the same time each day. ??? Ask your health care provider: ??? How long to wait between doses. ??? If you should take your antibiotic with food or water. ??? If you should avoid certain foods, drinks, or medicines while taking your antibiotics. ??? If you need to watch for any side effects. ??? Use only the antibiotics prescribed to you by your health care provider. Do not use antibioticsprescribed for someone else. ??? Drink a large glass of water when taking your antibiotics unless told otherwise. Drink enough fluid to keep your urine pale yellow. ??? Ask your pharmacist for a dosage syringe, cup, or spoon that correctly measures your antibiotics. ??? Ask your pharmacist or health care provider how to safely get rid of leftover medicine. Follow these instructions at home: ??? Take your antibiotics as told by your health care provider. Do not stop taking your antibioticseven if you start to feel better. ??? Return to your normal activities as told by your health care provider. Ask your health care provider what activities are safe for you. Contact a health care provider if: ??? Your symptoms get worse. ??? You have new joint pain or muscle aches that begin after starting your antibiotic. ??? You have side effects from your antibiotic, such as: ??? Stomach pain. ??? Diarrhea. ??? Nausea. ??? White patches in your mouth or throat. Get help right away if: ??? You have signs of a severe allergic reaction to antibiotics. If you have any of these signs, stop taking the antibiotic right away. Signs may include: ??? Raised, itchy, red bumps on your skin (hives). ??? Skin rash. ??? Trouble breathing. ??? High-pitched whistling sounds when you breathe, most often when you breathe out (wheezing). ??? Swelling anywhere on your body. ??? Feeling dizzy. ??? Vomiting. ??? You have signs of liver problems, such as: ??? Dark or blood-colored urine. ??? Yellow color to your skin. ??? Bruising or bleeding easily. ??? You have severe diarrhea, bloody diarrhea, or stomach cramps. ??? You have a severe headache. These symptoms may be an emergency. Get help right away. Call 911. ??? Do not wait to see if the symptoms will go away. ??? Do not drive yourself to the hospital. This information is not intended to replace advice given to you by your health care provider. Make sure you discuss any questions you have with your health care provider. Document Revised: 12/23/2022 Document Reviewed: 12/23/2022 [employer] Patient Education ?? 2022 [employer] Follow Up Care 05/24/2024 15:00:00 With:Dilan Hernandez MD Address: [address] [place] [address]- When:1 month Pharmacology Note * Dwayne Richard: PERFORM Event Display: Pharmacy Note Authored Date: [id number] TelePharmacy Home Medication List Update for Medication Reconciliation ??? Person Interviewed: patient ??? Quality of Interview/accuracy of medication list: good ??? Sources used to compile medication list: ???[facility] medication list ???SureScripts ?? PCP/Specialist list ?? Retail pharmacy ?? Patient list ?? MAR ?? Other ??? Changes made to home medication list: o Additions: ??? Ibuprofen ??? Diurex OTC ??? Spironolactone o Deletions: ??? Nicotine gum and patch ??? Duplicate Breztri ??? Vit C o Changes: ??? Click or tap here to enter text. ??? Additional Notes: o Recently filled Azithromycin and Metformin are not being taken. Metformin pt reports she should be on but is having insurance issues. o Pt has not have evening medications yet today ??? Recommended changes: o Click or tap here to enter text. The home medication list is now updated to the best of my knowledge and is ready to be reconciled by the provider. Please contact the TelePharmacy Medication Reconciliation Pharmacist at for any questions. Discharge instructions * Bel Davis RN: PERFORM Event Display: Discharge Instructions Authored Date: [id number] AUBREE COUCH :1950 Age:74 years Sex:Female Visit Date:05/24/2024 Primary Care Physician: Dilan Hernandez MD Hospital Discharge Instructions We would like to thank you for allowing us to assist you with your healthcare needs. The following includes patient education materials and information regarding your injury/illness. Your Next Steps Discharge Orders Discharge Activity Restrictions, No Restrictions Discharge Diet Instruction, Regular home diet Scheduled Future Appointments Thursday 1:20 PM EST ?? With: Dilan Hernandez MD Where: [address] [address] Status: Confirmed The Following Equipment Has Been Ordered for You Home Equipment, Anticipated - Nebulizer, Oxygen, Pulse oximeter Medications What How Much When Why Instructions Next Dose New levoFLOXacin (levoFLOXacin 750 mg oral tablet) 1 tab Oral (given by mouth) Every 24 hours Duration: 5 Days Pickup at [facility] [id number] 05/26 2pm Changed budesonide/ glycopyrrolate/ formoterol (Breztri Aerosphere 160 mcg-9 mcg-4.8 mcg/ inh inhalation aerosol) 2 Puffs Inhale (breathe in) 2 times a day rinse mouth and throat after use ?? resume Unchanged albuterol (Albuterol (Eqv-ProAir HFA) 90 mcg/ inh inhalation aerosol) 2 Puffs Inhale (breathe in) Every 4 hours COPD mixed type resume Unchanged ascorbic acid (Vitamin C 500 mg oral tablet) 1 tab Oral (given by mouth) Every day resume Unchanged cephalexin (cephalexin 250 mg oral capsule) See instructions TAKE 1 CAPSULE BY MOUTH ONCE DAILY ?? resume Unchanged escitalopram (escitalopram 10 mg oral tablet) 1 tab Oral (given by mouth) Every day TAKE 1 TABLET BY MOUTH ONCE DAILY ?? 05/26 AM Unchanged ferrous sulfate (ferrous sulfate 325 mg (65 mg elemental iron) oral delayed release tablet) 1 tab Oral (given by mouth) Every day 05/26 AM Unchanged ibuprofen (ibuprofen 200 mg oral tablet) 2 tab Oral (given by mouth) Every 4 hours as needed for as needed for pain resume Unchanged ipratropium-albuterol (ipratropium-albuterol 0.5 mg-2.5 mg/ 3 mL inhalation solution) Seeinstructions USE 1 AMPULE IN NEBULIZER EVERY 4 HOURS NEEDED FOR SHORTNESS OF BREATH FOR WHEEZING ?? resume Unchanged nicotine (nicotine 21 mg/ 24 hr transdermal film, extended release) 1 patch(es) Transdermal (apply on the skin) Every day Nausea apply to skin ?? 05/26 AM Unchanged nicotine (nicotine 4 mg oral transmucosal gum) 1 Each Chewed Every 2 hours as needed for as needed for smoking cessation Nausea resume Unchanged omeprazole (omeprazole 40 mg oral delayed release capsule) 1 Capsules Oral (given by mouth) Every day 05/26 AM Unchanged ondansetron (ondansetron 8 mg oral tablet) See instructions Nausea 1 tab Oral every 6 hours as needed for nausea, As needed for nausea ?? resume Unchanged pamabrom (Diurex Water Capsules) 50 Milligrams Oral (given by mouth) Every day resume Unchanged potassium bicarbonate (potassium bicarbonate 20 mEq oral tablet, effervescent) 1 tab Oral (given by mouth) 2 times a day dissolve in water or juice ?? resume Unchanged pramipexole (pramipexole 1 mg oral tablet) See instructions Take 1 tablets by mouth QAM and two tablets QPM ?? 05/25 PM Unchanged semaglutide (Ozempic (1 mg dose) 4 mg/ 3 mL subcutaneous solution) 1 Milligrams Subcutaneous (under the skin) Every week Diabetes resume Unchanged spironolactone (spironolactone 25 mg oral tablet) 12.5 Milligrams Oral (given by mouth) Every day 05/26 AM Unchanged torsemide (torsemide 20 mg oral tablet) 2 tab Oral (given by mouth) Every day 05/26 AM Pharmacy Information [id number]: [address] [place] [address] [phone] Your Summary Your Care Team Admitting Physician - Sandra Hung Attending Physician - Wilfredo Chavez DO Primary Care Physician - Dilan Hernandez MD Referring Physician - Martin Chan MD Your Diagnosis UTI (urinary tract infection) Leukocytosis Abdominal pain Anxiety disorder Chronic obstructive lung disease Degeneration of lumbar intervertebral disc Diabetes Low back pain Tobacco user Nicotine dependence Discharge Vitals Temperature??(Temporal Artery) 97.5 ??F (36.4 ??C) Heart Rate??(Monitored) 74 Respiratory Rate?? 18 Blood Pressure?? 94/71?? SpO2?? 93% Height?? 61.02 in (155 cm) Weight?? 156.56 lb (71 kg) BMI?? 29.53 Allergies No Known Medication Allergies Patient/Academic Dean Signature Patient Name:AUBREE COUCH I have received this information and my questions have been answered. Patient/Academic Dean Name: Patient/Academic Dean Signature: Relationship to Patient: Witness Name/Signature: Date: Electronically Signed on: 05/25/2024 13:53 ESTSigned by:DANILO ict project manager Note * Bel Davis RN: PERFORM Event Display: Case Management Note Authored Date: [id number] Discharge instructions given to patient. Patient verbalized understanding. 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 Information sheet given on new medication to include indications for use and potential side effects. Patient aware of next doses for all home medications. Written and verbal educated given on antibiotic use. Patient educated on signs and symptoms to report to health care provider and those requiring immediate medical attention. Patient aware of scheduled followup appt with PCP. All questions answered. Patient transported to waiting vehicle via w/c. All belongings sent home with patient. Respiratory therapy Hospital Progress note * Ananya ColmenaresP: PERFORM Event Display: Respiratory Therapy Progress Note Authored Date: [id number] ??AUBREE COUCH A74 year old MEASURED Body Mass Index: 29.53 kg/m2 (05/24/24 22:30:00) BSA Measured: 1.75 m2 (05/24/24 22:30:00) Height: 155 cm (05/24/24 22:30:00) Weight: 70.95 kg (05/24/24 22:30:00) DOSING Height/Length Dosin cm (04/03/23 18:11:16) Weight Dosin.95 kg (05/24/24 22:30:00) Respiratory Shift Summary Breath Sounds: Diminished, Expiratory wheezes with fine crackles at the bases L>R. Shift Treatments: Albuterol Neb Q4 PRN Shift Events: Patient's room smelled like cigarettes. When staff asked her if she was smoking, she said I was smoking in the bathroom, I haven't smoked since 8:30 this morning, I just took a couple of drags. RN took her pack of cigarettes and brought it in the med room. Also patient requested to be on Oxygen at 3 lpm nc 98%. She said she uses 3 lpm at nocturnal at home. Patient went back to sleep with no signs of acute distress or SOB. Will continue to monitor. Respiratory Goals/Plan of Care: ABG???s: Inital _??Settings: End of Shift _Settings: Respirtory Treatment or Medication Changes: Respiratory Protocol??Aerosol Therapy Assessment and Scoring Home Medication Routine: Lung History (2) Current smoker greater than 1 pack/day with greater than 15 pack year history and/or diagnosed lung disease Breath Sounds (2) Intermittent wheezes or moderately diminished or crackles greater than 1/3 up back Respiratory Rate (0) Less than or equal to 18 Modified Julee Scale or Observed Dyspnea (0) None Oxygen Therapy (2) 3-6 L/m or equivalent Home Respiratory Medications (1) Rescue MDI less than or equal to 1 time per day Inhaler Use Assessment ? Clinically Stable? Yes? Can take a slow deep breath on command? Yes? Can perform a 3 second breath hold? Yes Respiratory total Score: 7 Respiratory Guidelines 5-9 pts - QID scheduled??and Q4 PRN for SOB Electronically Signed on 05/25/2024 00:32 EST Ananya Colmenares RCP Physician Emergency department Note * Harpal LEMUS, Miguel Gaston MD: PERFORM Event Display: ED Note Physician Authored Date: [id number] I took over care of the patient around 9 PM waiting for the results of the CT scan. The scan came back and the radiologist call me to discuss. He sees air that may be inside the bladder and inside oradjacent to the bladder wall. They thought perhaps a pneumocystitis may be present. Patient's whitecount is elevated and she came with abdominal pain. However her urinalysis looks fairly benign so seems less likely however with the free air were does not belong will treat her with Zosyn and admit her for IV antibiotics and repeat evaluation. She may need repeat imaging and may need to discuss this with urology at a tertiary care center or one of her surgeons in the morning. Diagnosis: Free air in the abdomen, abdominal pain, leukocytosis Plan admit for IV antibiotics. Electronically Signed on 05/24/2024 22:08 EST Harpal OKMiguel Poole MD History and physical note * Eleazar [facility]: PERFORM, MODIFY Event Display: History and Physical Authored Date: [id number] AUBREE COUCH :1950 Age:74 years Sex:Female Visit Date:05/24/2024 Primary Care Physician: Dilan Hernandez MD Chief Complaint complicated UTI History of Present Illness The patient is a 74 -year-old female who presented to the [facility] ED for evaluation of??left lower abdominal pain and significant constipation, reporting no bowel movement for five days despite attempting azuh-xwx-[id number] remedies. She denies fever, chills, or vomiting but notes a single episode of nausea.?? Patient reports 5 days with no BM.?? She states she has taken bowel meds, including oral, rectal and an enema and feels she does not have relief.? A CT scan was obtained, and the radiologist reported concerning findings of air within or adjacent to the bladder wall, raising suspicion for emphysematous cystitis or another source of intra-abdominal free air. The patient???s white blood cell count was elevated, consistent with an inflammatory orinfectious process. However, her urinalysis appeared unremarkable, making a urinary tract source less likely. ?? Labs in the ED:??WBC 22.1,??segs 82,??sodium 04/27/1934, potassium 3.2, chloride 94,??CO2 34, alk phos 114,??glucose 111, creatinine 1.02,??calcium 9.2??albumin 3.3,??hemoglobin A1c??6.3 on April 25, 2024, lipase 15, lactic??acid less than 0.8, urine??trace blood??positive nitrites otherwise??normal.?? BC and UC pending. ?? Given the concerning finding of free air, she was started on empiric IV antibiotics (piperacillin-tazobactam) and placed on observation status on the medical floor??for further evaluation and management. The plan includes serial imaging, possible urology consultation for suspected bladder involvement, and consideration of surgical evaluation, particularly if the patient???s condition deterioratesor further diagnostics suggest a perforated viscus. ?? Patient is a full code.?? Review of Systems Constitutional:?No??fevers,?No??chills,?No??sweats Eye:?No??recent visual problems ENT:?No??ear pain,?No??nasal congestion,?No??sore throat Respiratory:?No??shortness of breath,?No??cough; uses oxygen prn, mostly at night Cardiovascular:?No??Chest pain,?No??palpitations,?No??syncope Gastrointestinal:?Positive fornausea,?No??vomiting,?No??diarrhea; reports constipation for5 d.?? Genitourinary:?No??hematuria?? Adolph/Lymph:?No??bruising tendency,?No??swollen lymph glands Endocrine:?No??excessive thirst,??No??excessive hunger Musculoskeletal:??Positive for??back pain,??No??neck pain,??No??joint pain,??No??muscle pain,??No??decreased range of motion Integumentary:?No??rash,?No??pruritus,?No??abrasions Neurologic:??Alert & oriented X 4 Psychiatric:?Positive for??anxiety,?No??depression Physical Exam Vitals & Measurements T:??36.5?C ??(Temporal Artery)?? TMIN:??36.3?C ??(Temporal Artery)?? TMAX:??36.7?C ??(Temporal Artery)?? HR:??88??(Peripheral)?? RR:??18?? BP:??113/65?? SpO2:??98%?? HT:??155??cm?? WT:??70.95??kg?? BMI:??29.53?? Pain Score:??3?? O2 Flow Rate:??3?? O2 Therapy:??Nasal cannula?? BSA:??1.75?? Vital signs and nursing notes reviewed ?? CONSTITUTIONAL: _well appearing, older than stated age,??in no acute distress, nasal cannula in place SKIN: _Warm, dry, and intact without rash EYES: _extraocular movements are grossly intact, clear conjunctiva HENT: _Normocephalic, atraumatic, moist mucus membranes NECK: _no obvious swelling, normal range of motion PULMONARY: _normal chest rise and fall, no respiratory distress or stridor, no wheezes, lungs clear CARDIOVASCULAR: _regular rate, distal extremities are warm and well perfused GASTROINTESTINAL: _nondistended, soft, bowel sounds present x 4 GENITOURINARY: _deferred NEUROLOGIC: _normal speech, moves all extremities with equal strength and coordination MUSCULOSKELETAL: _no gross deformities, atraumatic PSYCHIATRIC: _normal mood and affect ? Assessment/Plan 1.??UTI (urinary tract infection)??N39.0 Urine + blood + nitrites CT suggesting there is air in the bladder wall? Treated with Zosyn - will continue BC pending UC pending ?? Ordered: PSO Place in Observation, Observation, Observation, Wilfredo Chavez DO, 05/24/24 21:52:00 EST, 05/24/24 21:52:00 EST, 05/24/24 21:52:00 EST, 1 midnight or less ?? 2.??Leukocytosis??D72.829 Zosyn started in ED will continue?? Trend BC pending Oral fluids Ordered: PSO Place in Observation, Observation, Observation, Wilfredo Chavez DO, 05/24/24 21:52:00 EST, 05/24/24 21:52:00 EST, 05/24/24 21:52:00 EST, 1 midnight or less ?? 3.??Abdominal pain??R10.9 Resolved at time of admission Tylenol for pain/fever?? Patient reports no pain during admission interview.?? Ordered: PSO Place in Observation, Observation, Observation, ScottWilfredo DO, 05/24/24 21:52:00 EST, 05/24/24 21:52:00 EST, 05/24/24 21:52:00 EST, 1 midnight or less ?? 5.??Anxiety disorder??F41.9 ??Chronic Continue home meds ?? 6.??Chronic obstructive lung disease??J44.9 Chronic Continue home meds and??home O2? 7.??Degeneration of lumbar intervertebral disc??M51.360 assess for pain. tylenol??prn ?? 8.??Diabetes??E11.9 Hold metformin SS insulin? 9.??Low back pain??M54.50 Chronic - usually takes ibuprofen - offered Aleve ? 10.??Tobacco user??Z72.0 ?? 11.??Nicotine dependence??F17.200 Patch ?? Orders: acetaminophen, 650 mg = 2 tab, Oral, Tab, every 6 hr, PRN pain, mild, First Dose: 05/24/24 22:11:00EST, Routine bisacodyl, 10 mg = 1 supp, Rectal, Supp, Daily, PRN constipation, First Dose: 05/24/24 22:11:00 EST, Routine escitalopram, 10 mg = 1 tab, Oral, Tab, Daily, First Dose: 05/25/24 9:00:00 EST, Routine ferrous sulfate, 325 mg = 1 tab, Oral, Tab, Daily, First Dose: 05/25/24 9:00:00 EST, Routine GlucaGen, 1 mg = 1 EA, Intramuscular, Kit, As Directed, PRN low blood sugar, First Dose: 05/24/24 22:11:00 EST, Routine Dextrose 50% intravenous solution, 12.5 g 25 mL, IV Push, Soln-IV, As Directed, PRN low blood sugar, First Dose: 05/24/24 22:11:00 EST, Routine glucose 40% oral gel, 30 g = 75 mL, Oral, Gel, As Directed, PRN low blood sugar, First Dose: 05/24/24 22:11:00 EST, Routine glucose 40% oral gel, 15 g = 37.5 mL, Oral, Gel, As Directed, PRN low blood sugar, First Dose: 05/24/24 22:11:00 EST, Routine Dextrose 50% intravenous solution, 25 g 50 mL, IV Push, Soln-IV, As Directed, PRN low blood sugar, First Dose: 05/24/24 22:11:00 EST, Routine insulin lispro (HumaLog) correction- sensitive, Sensitive Scale, Subcutaneous, Soln, QID(ACHS), First Dose: 05/25/24 7:30:00 EST, Routine lidocaine 1% injectable solution, 1 mg 0.1 mL, Intradermal, Soln, As Directed, PRN other (see comment), First Dose: 05/24/24 22:11:00 EST, Routine morphine, 2 mg = 1 mL, IV Push, Soln-IV, every 2 hr, PRN pain, severe, First Dose: 05/24/24 22:11:00 EST, Routine Narcan, 0.4 mg = 1 mL, IV Push, Soln, Once, PRN Opioid Overdose, First Dose: 05/24/24 22:11:00 EST,Physician Stop, Routine nicotine 21 mg/24 hr Transderm ER Film, 21 mg 1 patches, Transdermal, Film, every 24 hr, First Dose: 05/25/24 1:21:00 EST, Routine Nicotine Patch Removal, 1 EA, Transdermal, Misc, every 24 hr, First Dose: 05/26/24 1:21:00 EST, Routine ondansetron, 4 mg = 2 mL, IV Push, Soln, every 6 hr, PRN nausea/vomiting, First Dose: 05/24/24 22:11:00 EST, Routine pantoprazole, 40 mg = 1 EA, IV Push, Powder-Inj, Daily, First Dose: 05/25/24 6:00:00 EST, Routine piperacillin-tazobactam + Sodium Chloride 0.9% 100 mL, 3.375 g = 1 EA, IV Piggyback, Powder-Inj, every 8 hr, Antibiotic Indication Abdominal, other, Administer over: 4 hr, First Dose: 05/25/24 5:00:00 EST, Routine, 25 mL/hr polyethylene glycol 3350, 17 g = 1 packets, Oral, Powder-Recon, BID, First Dose: 05/25/24 9:00:00 EST, Routine pramipexole, 2 mg = 2 tab, Oral, Tab, every night at bedtime, First Dose: 05/25/24 1:30:00 EST pramipexole, 1 mg = 1 tab, Oral, Tab, every morning, First Dose: 05/25/24 8:00:00 EST senna, 17.2 mg = 2 tab, Oral, Tab, BID, First Dose: 05/25/24 9:00:00 EST, Routine Normal Saline Flush, 10 mL, IV Push, Soln, every 12 hr (bhupinder), First Dose: 05/25/24 9:00:00 EST, Routine Sodium Chloride 0.9% 1,000 mL, Total Volume (mL): 1,000, 1,000 mL, Soln-IV, IV, 30 mL/hr, Start Date: 05/24/24 22:11:00 EST, 74 kg, Populate Charting Weight From Order spironolactone, 12.5 mg = 0.5 tab, Oral, Tab, Daily, First Dose: 05/25/24 9:00:00 EST, Routine torsemide, 40 mg = 2 tab, Oral, Tab, Daily, First Dose: 05/25/24 1:25:00 EST, Routine traMADol, 50 mg = 1 tab, Oral, Tab, every 4 hr, PRN pain, moderate, First Dose: 05/24/24 22:11:00 EST, Routine Ambulate as Tolerated, 05/24/24 22:11:00 EST, PRN Basic Metabolic Panel, Blood, Routine, 05/24/24 22:11:00 EST, every morning, for 3 days, Lab Collect CBC w/ Diff, Blood, Routine, 05/24/24 22:11:00 EST, every morning, for 3 days, Lab Collect Consult to Pharmacy, 05/24/24 22:11:00 EST, Medication History Consult, PCU General Admission Orders [facility] Diet Order, 05/24/24 22:11:00 EST, Clear Liquids Intake and Output, 05/24/24 22:11:00 EST, Constant Indicator, every 8 hrs, 05/24/24 22:11:00 EST Magnesium Level, Blood, Routine, 05/24/24 22:11:00 EST, every morning, for 3 days, Lab Collect Notify Provider of Vital Signs, 05/24/24 22:11:00 EST, SpO2 < 92% on 2L O2 NC, T > 101.5, HR > 100, HR < 50, SBP greater than 160, SBP less than 90, DBP greater than 90, DBP less than 50,Resp Rate greater than 30, Resp Rate less than 8, Constant Indicator Nursing Task, 05/24/24 22:11:00 EST, Constant order Nursing Task, 05/24/24 22:11:00 EST, Constant order Oxygen Therapy, SpO2 goal 90% or greater, PRN, Eleazar ALVAREZSandraP-C Resuscitation Status, 05/24/24 22:11:00 EST, Full Code Urine Culture, Urine, Clean Catch, Routine collect, RT - Routine, 05/25/24 1:05:00 EST, Once, Nursecollect Vital Signs, 05/24/24 22:11:00 EST, Constant order, every 4 hrs Weight, 05/24/24 22:11:00 EST, every morning Problem List/Past Medical History Ongoing Anxiety disorder Chronic obstructive lung disease Chronic pain disorder Claustrophobia Degeneration of lumbar intervertebral disc Diabetes Diarrhea [...] (03/22/2010)???Right-Oophorectomy (06/08/1979)???Ectopic w/ left salpingectomy???Tubal ligation Medications Inpatient acetaminophen, 650 mg= 2 tab, Oral, every 6 hr, PRN bisacodyl, 10 mg= 1 supp, Rectal, Daily, PRN Dextrose 50% intravenous solution, 12.5 g= 25 mL, IV Push, As Directed, PRN Dextrose 50% intravenous solution, 25 g= 50 mL, IV Push, As Directed, PRN escitalopram, 10 mg= 1 tab, Oral, Daily ferrous sulfate, 325 mg= 1 tab, Oral, Daily GlucaGen, 1 mg= 1 EA, Intramuscular, As Directed, PRN glucose 40% oral gel, 15 g= 37.5 mL, Oral, As Directed, PRN glucose 40% oral gel, 30 g= 75 mL, Oral, As Directed, PRN insulin lispro (HumaLog) correction- sensitive, Sensitive Scale, Subcutaneous, QID(ACHS) lidocaine 1% injectable solution, 1 mg= 0.1 mL, Intradermal, As Directed, PRN morphine, 2 mg= 1 mL, IV Push, every 2 hr, PRN Narcan, 0.4 mg= 1 mL, IV Push, Once, PRN nicotine 21 mg/24 hr Transderm ER Film, 21 mg= 1 patches, Transdermal, every 24 hr Nicotine Patch Removal, 1 EA, Transdermal, every 24 hr Normal Saline Flush, 10 mL, IV Push, every 12 hr (bhupinder) ondansetron, 4 mg= 2 mL, IV Push, every 6 hr, PRN pantoprazole, 40 mg= 1 EA, IV Push, Daily piperacillin-tazobactam + Sodium Chloride 0.9% 100 mL polyethylene glycol 3350, 17 g= 1 packets, Oral, BID pramipexole, 1 mg= 1 tab, Oral, every morning pramipexole, 2 mg= 2 tab, Oral, every night at bedtime senna, 17.2 mg= 2 tab, Oral, BID Sodium Chloride 0.9% 1,000 mL, 1000 mL, IV spironolactone, 12.5 mg= 0.5 tab, Oral, Daily torsemide, 40 mg= 2 tab, Oral, Daily traMADol, 50 mg= 1 tab, Oral, every 4 hr, PRN Home Albuterol (Eqv-ProAir HFA) 90 mcg/inh inhalation aerosol, 2 puffs, Inhale, every 4 hr, 6 refills Breztri Aerosphere 160 mcg-9 mcg-4.8 mcg/inh inhalation aerosol, 2 puffs, Inhale, BID, 6 refills cephalexin 250 mg oral capsule, See Instructions COPD J44.1, See instructions Diurex Water Capsules, 50 mg, Oral, Daily escitalopram 10 mg oral tablet, 10 mg= 1 tab, Oral, Daily, 3 refills ferrous sulfate 325 mg (65 mg elemental iron) oral delayed release tablet, 325 mg= 1 tab, Oral, Daily ibuprofen 200 mg oral tablet, 400 mg= 2 tab, Oral, every 4 hr, PRN ipratropium-albuterol 0.5 mg-2.5 mg/3 mL inhalation solution, See Instructions, 4 refills nicotine 21 mg/24 hr transdermal film, extended release, 1 patches, Transdermal, Daily, 1 refills nicotine 4 mg oral transmucosal gum, 4 mg= 1 EA, Chewed, every 2 hr, PRN, 1 refills omeprazole 40 mg oral delayed release capsule, 40 mg= 1 cap, Oral, Daily, 3 refills ondansetron 8 mg oral tablet, See Instructions, PRN, 1 refills Oxygen Therapy, See instructions Ozempic (1 mg dose) 4 mg/3 mL subcutaneous solution, 1 mg, Subcutaneous, every week, 3 refills potassium bicarbonate 20 mEq oral tablet, effervescent, 20 mEq= 1 tab, Oral, BID, 1 refills pramipexole 1 mg oral tablet, See Instructions, 6 refills spironolactone 25 mg oral tablet, 12.5 mg, Oral, Daily torsemide 20 mg oral tablet, 40 mg= 2 tab, Oral, Daily, 1 refills Vitamin C 500 mg oral tablet, 500 mg= 1 tab, Oral, Daily Allergies No Known Medication Allergies Social History Alcohol Current, Daily- Comments: 1 Kahlua and milk/day Electronic Cigarette/Vaping Electronic Cigarette Use: Former use, quit more than 90 days ago. 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 Home/Environment Lives with Spouse. Nutrition/Health Caffeine intake amount: rarely. Sexual Sexual orientation: Straight or heterosexual. Other contraceptive use: [id number]. What is your current gender identity? (Check [...] Cause of : Immunizations Vaccine Date Status influenza virus vaccine, inactivated 03/15/2024 Recorded Comments : right arm,exp 12/05/2024, lot [id number] at [facility] SARS-CoV-2 (COVID-19) Moderna (cvx 312) 03/15/2024 Recorded Comments : left arm, exp 10/28/2024, lot [id number] ??at [facility] influenza, unspecified formulation 02/16/2023 Recorded pneumococcal 23-polyvalent vaccine 05/15/2022 Recorded Comments : [facility] SARS-COV-2 (COVID-19) vaccine, unspecifi 03/18/2022 Recorded Comments : Moderna bivalent, 6+ months, blue cap influenza, unspecified formulation - Not Given Comments : Patient Refuses influenza, high-dose, quadrivalent Patient Declined Last Modified by SOWMYA MCMILLAN, Pharmaceutical Service Representative ??06-21-2020, 11:26 influenza virus vaccine, live 04/30/2021 Recorded SARS-CoV-2 (COVID-19) mRNA-1273 vaccine 09/17/2020 Recorded SARS-CoV-2 (COVID-19) mRNA-1273 vaccine 08/21/2020 Recorded influenza, unspecified formulation 04/09/2020 Recorded Comments : influenza, high-dose, quadrivalent VIS given: 04-09-2020 VIS published date: Inactivated Influenza 01/20/2019 Administered by NOEMÍ HERNANDEZ Pharmaceutical Service Representative ??04-09-2020 influenza, unspecified formulation 03/24/2019 Recorded Comments : influenza, trivalent, adjuvanted VIS given: 03-24-2019 VIS published date: Inactivated Influenza 01/20/2019 Administered by SOWMYA MCMILLAN Pharmaceutical Service Representative ??03-24-2019 tetanus-diphth toxoids (Td) adult/adol 10/18/2018 Recorded [...] virus vaccine Recorded varicella virus vaccine Recorded Lab Results Test Name Test Result Date/Time WBC 22.1 x10^3/mcL 05/24/2024 18:00 EST RBC 4.4 x10^6/mcL 05/24/2024 18:00 EST Hgb 12.8 g/dL 05/24/2024 18:00 EST Hct 37.9 % 05/24/2024 18:00 EST MCV 86.3 fL 05/24/2024 18:00 EST MCH 29.2 pg 05/24/2024 18:00 EST MCHC 33.8 g/dL 05/24/2024 18:00 EST RDW-CV 14.3 % 05/24/2024 18:00 EST Platelets 376 x10^3/mcL 05/24/2024 18:00 EST Segs Man 82 % 05/24/2024 18:00 EST Lymph Man 10 % 05/24/2024 18:00 EST [place] Man 7 % 05/24/2024 18:00 EST Eos Man 1 % 05/24/2024 18:00 EST Baso Man 0 % 05/24/2024 18:00 EST Band Man 0 % 05/24/2024 18:00 EST Abs Neut Man 18.1 x10^3/mcL 05/24/2024 18:00 EST RBC Morph Normal 05/24/2024 18:00 EST Plt Estimation Adequate 05/24/2024 18:00 EST Slide Review Man Diff 05/24/2024 18:00 EST Sodium Level 134 mmol/L 05/24/2024 18:00 EST Potassium Level 3.2 mmol/L 05/24/2024 18:00 EST Chloride Level 94 mmol/L 05/24/2024 18:00 EST CO2 34 mmol/L 05/24/2024 18:00 EST Alk Phos 114 unit/L 05/24/2024 18:00 EST AST 18 unit/L 05/24/2024 18:00 EST ALT 23 unit/L 05/24/2024 18:00 EST BUN 16 mg/dL 05/24/2024 18:00 EST Glucose Level 111 mg/dL 05/24/2024 18:00 EST Creatinine Level 1.02 mg/dL 05/24/2024 18:00 EST eGFR AA 58 05/24/2024 18:00 EST eGFR Non-AA 58 05/24/2024 18:00 EST Calcium Level 9.2 mg/dL 05/24/2024 18:00 EST Protein Total 7.7 g/dL 05/24/2024 18:00 EST Albumin Level 3.3 g/dL 05/24/2024 18:00 EST Bilirubin Total 0.4 mg/dL 05/24/2024 18:00 EST Lactic Acid Lvl <0.8 mmol/L 05/24/2024 21:34 EST Lipase Level 15 unit/L 05/24/2024 18:00 EST Estimated Creatinine Clearance 55.84 mL/min 05/24/2024 22:31 EST UA Color YELLOW. 05/24/2024 20:00 EST UA Appear CLEAR. 05/24/2024 20:00 EST UA Glucose NEGATIVE 05/24/2024 20:00 EST UA Bili NEGATIVE 05/24/2024 20:00 EST UA Ketones NEGATIVE 05/24/2024 20:00 EST UA Spec Grav <=1.005 05/24/2024 20:00 EST UA Blood TRACE. 05/24/2024 20:00 EST UA pH 7.5 05/24/2024 20:00 EST UA Protein NEGATIVE 05/24/2024 20:00 EST UA Urobilinogen 0.2 Uro 05/24/2024 20:00 EST UA Nitrite POSITIVE 05/24/2024 20:00 EST UA Leuk Est NEGATIVE 05/24/2024 20:00 EST UA Culture Ind?. Not Indicated 05/24/2024 20:00 EST UA WBC 3-5 05/24/2024 20:00 EST UA RBC 0-2 05/24/2024 20:00 EST UA Squam Epithelial Rare 05/24/2024 20:00 EST UA Mucous None Seen 05/24/2024 20:00 EST UA Bacteria Rare 05/24/2024 20:00 EST SARS-CoV-2 (COVID-19) RNA (ID Now) Not Detected 05/24/2024 21:14 EST Diagnostic Results ?? XR Chest 1 View PROCEDURE INFORMATION:?? Exam: XR Chest?? Exam date and time: 05/24/2024 9:39 PM?? Age: 74 years old?? Clinical indication: Dyspnea? TECHNIQUE:?? Imaging protocol: Radiologic exam of the chest.?? Views: 1 view.? COMPARISON:?? CR XR CHEST 2VW (D) 01/03/2024 10:03 AM, concurrent CT examination of?? abdomen and pelvis? FINDINGS:?? Lungs: Focal parenchymal infiltrate and atelectasis in lower left?? lung.?? Pleural spaces: Unremarkable. No pleural effusion. No pneumothorax.?? Heart/Mediastinum: Unremarkable. No cardiomegaly.?? Bones/joints: Degenerative changes.? IMPRESSION:?? Focal parenchymal infiltrate and atelectasis in lower left lung.?? Report signed by: Sonny Pringle On 05/24/2024 ??22:22:37 ?? CT Abdomen and Pelvis w/ Contrast No PO PROCEDURE INFORMATION:?? Exam: CT Abdomen And Pelvis With Contrast?? Exam date and time: 05/24/2024 7:04 PM?? Age: 74 years old?? Clinical indication: Lower abdominal pain constipation? TECHNIQUE:?? Imaging protocol: Computed tomography of the abdomen and pelvis with?? contrast.?? Radiation optimization: All CT scans at this facility use at least?? one of these dose optimization techniques: automated exposure?? control; mA and/or kV adjustment per patient size (includes targeted?? exams where dose is matched to clinical indication); or iterative?? reconstruction.?? Contrast material: OMNI 350; Contrast volume: 90 ml; Contrast route:?? INTRAVENOUS (IV); ? COMPARISON:?? CT ABD/PELVIS W/ CONTRAST 07/31/2023 10:55 AM? FINDINGS:?? Lungs: New focal parenchymal consolidation and subsegmental?? atelectasis in left lung base.? Liver: Liver normal in size. Too small to characterize hypoenhancing?? area or lesion in right hepatic lobe.?? Gallbladder and biliary ducts: Gallbladder is minimally distended?? without wall thickening or calcified gallstones. No biliary ductal?? dilatation.?? Pancreas: Pancreas appears normal. No ductal dilatation.?? Spleen: No splenomegaly.?? Adrenal glands: Normal adrenal glands.?? Kidneys and ureters: Normal. No hydronephrosis.?? Stomach and bowel: Stomach incompletely distended, limiting?? evaluation. Prior gastrojejunostomy. No dilated segments of small?? bowel or colonic dilatation. There are a few colonic diverticula.?? Appendix: Normal appendix.? Intraperitoneal space: No ascites. Minute gas bubble is demonstrated?? in right hemipelvis, .?? Vasculature: Unremarkable. No abdominal aortic aneurysm.?? Lymph nodes: Unremarkable. No enlarged lymph nodes.?? Urinary bladder: There are multiple minute gas bubbles peripherally?? within lumen or in bladder wall?? Reproductive: Prior hysterectomy.?? Bones/joints: The spine demonstrates mild degenerative changes at?? multiple levels. L4 is anteriorly subluxed approximately 5 and L5,?? anteriorly subluxed approximately 6 mm with respect to vertebral body?? below, appearance unchanged.?? Soft tissues: There is an uncomplicated fat-containing umbilical?? hernia. Small fat containing left inguinal and spigelian hernias.? IMPRESSION:?? 1. ?? Multiple minute gas bubbles peripherally within lumen or in?? urinary bladder wall. If within the wall, findings are consistent?? with the presence of emphysematous cystitis.?? 2. ?? Minute gas bubble along right pelvic sidewall appears to be?? adjacent to but not within bladder lumen or wall, possibly due to?? micro perforation through bladder wall.?? 3. ?? New focal parenchymal consolidation and subsegmental atelectasis?? in left lung base.?? 4. ?? Colonic diverticula.?? 5. ?? The gallbladder is distended but otherwise normal. Gallbladder?? distention is a nonspecific finding and can be related to patient?? fasting state. Correlate clinically.? THIS REPORT CONTAINS FINDINGS THAT MAY BE CRITICAL TO PATIENT CARE.?? The findings were verbally communicated via telephone conference with?? Dr. Rowan, 05/24/2024 9:01 PM EST.?? The findings were acknowledged and understood. ??Reportedly, there is?? a history of Diabetes. ??Patient has an elevated white blood cell?? count. ?? Report signed by: Sonny Pringle On 05/24/2024 ??21:04:26 ?? Electronically Signed on 05/25/2024 02:39 EST Eleazar NCSandra Poole MULTI CARE TECHNICIAN-C Electronically Signed on 05/25/2024 07:05 EST Eleazar Sandra LEMUS-C Reviewed by: Wilfredo Chavez DO * Event Display: History and Physical Update Authored Date: [id number] Discharge summary * Wilfredo Chavez DO: PERFORM Event Display: Discharge Summary Authored Date: [id number] AUBREE COUCH :1950 Age:74 years Sex:Female Visit Date:05/24/2024 Primary Care Physician: Dilan Hernandez MD Hospital Course Discharge Summary ?? Date of admission:??05/24/2024 ?? Date of discharge:??05/25/2024 ?? Discharge diagnoses:??Possible urinary tract??infection with??cystitis; possible pneumonia ?? Consultations:??None ?? Operations/procedures:CT abdomen pelvis with IV contrast on 05/24/2024 which revealed multiple minute gas bubbles peripherally within the lumen or in the urinary bladder wall, minute gas bubble alongthe right pelvic sidewall possibly indicating microperforation, new focal parenchymal consolidationand segmental atelectasis in the right left lung, ?? Microbiology: ?? Code Status: ?? Summary of presentation and course: ?? 74-year-old woman with COPD, ongoing smoking??of 1 pack/day,??diabetes type 2, nocturnal and as needed supplemental oxygen use, fluctuating dyspnea, low back pain, chronic constipation (for which shehas seen gastroenterology), recurrent UTIs for which she takes??prophylactic??cephalexin,??pyloric stenosis,??kidney stone,HFpEF,depression, and??GERD who presented with complaints of constipation. ?? She does have a history of this and has been seen by gastroenterology at [facility]. ?? CT scan was done in the emergency department and raised the possibility of emphysematous cystitis with possible microperforation. Base of left lung appears to demonstrate??infection as well. ?? Urinalysis did not show clear evidence of infection although it was nitrite positive.?? Culture wasordered and is pending.? She does have??an elevated white cell count??although this has been somewhat chronically elevated, likely as a result of her smoking.?? It has come down from 22,000?? to 20,000 this morning.?? Again,??she may have a pneumonia??and/or??a urinary tract infection. ?? She was started on Zosyn in the emergency department and this was continued. ?? This morning she is feeling much better.?? She was found smoking in the hospital room bathroom.?? In a likely related decision, she is unwilling to stay here for another night. ?? We have not identified a bacterium but as she is feeling better and is unwilling to stay, we will send her home after a dose of levofloxacin. ?? She has been on cephalexin and so we will transition to levofloxacin with the idea that she may have developed a bacterium resistant to first generation cephalosporins. ?? Otherwise her clinical picture did not reveal change.?? She does use oxygen as needed and at night. ?? She does continue to smoke and has been followed by pulmonology. ?? I did review the CT scan this morning with Dr. Lopez who notes the most common cause of this emphysematous cystitis would be infection, though there are cryptogenic causes.?? Her last CT scan did not reveal an abnormal bladder. ?? She reports that she has seen urology in the past for a similar event in which [facility]. It sounds like this was related to a kidney abnormality.?? Her bladder has something of an unusual appearance with a forward projection over the pelvis in addition to the wall emphysema. ?? As she is having no abdominal pain any longer, and is unwilling to stay, we will send her home to complete an antibiotic course. ?? I will follow-up on the urine culture and let her know if a change needs to be made. ?? She sees Dr. Hernandez in the clinic and will follow-up with him to determine whether her urology appointment would be indicated if the culture does not reveal the cause of her cystitis. ?? For her constipation,she is encouraged to be more aggressive with??MiraLAX which she can get??[id number].?? CT scan did not reveal??substantial constipation but there is??stool throughout the colon.?? She is not having an urge to defecate??as she did when she came in. ?? Disposition: Discharged to home today under her own recognizance.?? I would have preferred her to stay another night but she is unwilling, and as she is here under observation status, we will discharge her to complete an antibiotic course. ?? Greater than 30 minutes was spent on the day of discharge in coordinating care and arranging outpatient follow-up.?? Physical Exam Vitals & Measurements T:??36.4?C ??(Temporal Artery)?? TMIN:??36.2?C ??(Temporal Artery)?? TMAX:??36.7?C ??(Temporal Artery)?? HR:??74??(Monitored)?? RR:??18?? BP:??94/71?? SpO2:??93%?? HT:??155??cm?? WT:??71??kg?? BMI:??29.53?? Pain Score:??0?? O2 Flow Rate:??3?? O2 Therapy:??Room air?? BSA:??1.75?? Procedure/Surgical History ? ?Vaginal total hysterectomy, A&P repair, uterosacral vag-vault suspension, prolapse (04/21/2021)???Laparoscopic bypass gastrojejunostomy (02/29/2020)???EGD - Esophagogastroduodenoscopy (08/09/2019)???Colonoscopy (04/13/2019)???Pyloroplasty (03/22/2010)???Right-Oophorectomy (06/08/1979)???Ectopic w/ left salpingectomy???Tubal ligation Social History Alcohol Current, Daily- Comments: 1 Kahlua and milk/day Electronic Cigarette/Vaping Electronic Cigarette Use: Former use, quit more than 90 days ago. 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 Home/Environment Lives with Spouse. Nutrition/Health Caffeine intake amount: rarely. Sexual Sexual orientation: Straight or heterosexual. Other contraceptive use: [id number]. What is your current gender identity? (Check all that apply) Identifies as female. Substance Use Never Tobacco Current everyday tobacco user Tobacco Use:. 1.5 PPD per day. Never Smokeless Tobacco use:. Discharge Plan 1.??UTI (urinary tract infection)??N39.0 2.??Leukocytosis??D72.829 3.??Abdominal pain??R10.9 5.??Anxiety disorder??F41.9 6.??Chronic obstructive lung disease??J44.9 7.??Degeneration of lumbar intervertebral disc??M51.360 8.??Diabetes??E11.9 9.??Low back pain??M54.50 10.??Tobacco user??Z72.0 11.??Nicotine dependence??F17.200 Orders: Albuterol (Eqv-ProAir HFA) 90 mcg/inh inhalation aerosol, 2 inh, Inhale, Aerosol, every 4 hr RT, PRN shortness of breath, First Dose: 05/25/24 12:46:00 EST albuterol, 2.5 mg = 3 mL, Inhale, Soln, every 4 hr RT, PRN wheezing, First Dose: 05/25/24 7:12:00 EST levoFLOXacin, 750 mg = 150 mL, IV Piggyback, Soln-IV, every 24 hr, Antibiotic Indication Pneumonia,Administer over: 1.5 hr, First Dose: 05/25/24 13:00:00 EST, Routine, 100 mL/hr levoFLOXacin 750 mg oral tablet, 750 mg = 1 tab, Oral, every 24 hr, # 5 tab, 0 Refill(s), Pharmacy:[id number], 155, cm, 05/24/24 22:30:00 EST, Height, 70.95, kg, 05/24/24 22:31:00 EST, Weight Dosing All Diagnoses This Visit UTI (urinary tract infection) Leukocytosis Abdominal pain Anxiety disorder Chronic obstructive lung disease Degeneration of lumbar intervertebral disc Diabetes Low back pain Tobacco user Nicotine dependence Patient Education Antibiotic Medicine, Adult Follow Up With When Contact Information Dilan Hernandez MD Within [address] [place] [address]- Additional Instructions: Medication Reconciliation New Prescription levoFLOXacin (levoFLOXacin 750 mg oral tablet)1 tab Oral (given by mouth) every 24 hours for 5 Days. Refills: 0. ?? Changed budesonide/glycopyrrolate/formoterol (Breztri Aerosphere 160 mcg-9 mcg-4.8 mcg/inh inhalation aerosol)2 Puffs Inhale (breathe in) 2 times a day. rinse mouth and throat after use. Refills: 6. ?? Unchanged albuterol (Albuterol (Eqv-ProAir HFA) 90 mcg/inh inhalation aerosol)2 Puffs Inhale (breathe in) every 4 hours. Refills: 6. ?? ascorbic acid (Vitamin C 500 mg oral tablet)1 tab Oral (given by mouth) every day. Refills: 0. ?? cephalexin (cephalexin 250 mg oral capsule)TAKE 1 CAPSULE BY MOUTH ONCE DAILY. Refills: 0. ?? Durable Medical Equipment for [...] OF BREATH FOR WHEEZING. Refills: 4. ?? nicotine (nicotine 21 mg/24 hr transdermal [...] (given by mouth) every day. Refills: 1. Electronically Signed on 05/25/2024 12:50 EST Wilfredo Chavez DO Patient Care team information Care Team Personnel Name: Dilan Hernandez MD Position: Physician Member Role: Informed Provider Address: [address] [place] [address]- Telecom: Care Team Related Persons Name: LIAM QUIGLEY Name: GRACIELA COUCH Insurance Providers Guarantor name: AUBREE COUCH Health Plan Information #: 1 Payer: [employer] PPO Member Number: [id number] Policy Number: NA Group Number: NA Health Plan Information #: 2 Payer: [employer] PPO Member Number: [id number] Policy Number: NA Group Number: NA
--- OUTSIDE RECORDS SUMMARY | 2024-07-07 20:04 | XMS_ITS | Continuity of Care Document ---
Author Organization [facility] Address [address] [place] [address] Care Team Providers Care Plasma Processing Centrifuge Operator Name Role Phone Dilan Hernandez Primary Care Physician Encounter [facility] Date(s): 09/07/23 - 09/07/23 [facility] [address] [place] [address] Discharge Disposition: Home or Self Care Attending Physician: Jaimee Cerda NP Admitting Physician: Jaimee Cerda NP Referring Physician: Dilan Hernandez MD Allergies, Adverse [...] Inactivated Influenza 01/20/2019 Administered by NOEMÍ HERNANDEZ, Casing Running Machine Tender 04-09-2020 2Result Comment: influenza, trivalent, adjuvanted VIS given: 03-24-2019 VIS published date: Inactivated Influenza 01/20/2019 Administered by SOWMYA MCMILLAN, Casing Running Machine Tender 03-24-2019 3Result Comment: influenza, high dose seasonal Administered by: SULTANA 4Result Comment: William 5Result Comment: Moderna bivalent, 6+ months, blue cap 6Result Comment: influenza, high-dose, quadrivalent Patient Declined Last Modified by SOWMYA MCMILLAN, Casing Running Machine Tender 06-21-2020, 11:26 Medications Albuterol (Eqv-ProAir HFA) 90 mcg/inh inhalation aerosol 2 puffs, Inhale, every 4 hr, # 8.5 g, 6 Refill(s), Pharmacy: [facility], 155, cm, 05/04/23 10:37:00 EST, Height, 81.6, kg, 07/01/23 15:10:00 EST, Weight Dosing Start Date: 07/01/23 Status: Ordered apixaban 5 mg oral tablet 5 mg = 1 tab, Oral, BID, # 60 tab, 3 Refill(s), Pharmacy: [facility], 155, cm, 05/04/23 10:37:00 EST, Height, 81.6, kg, 07/01/23 15:10:00 EST, Weight Dosing Start Date: 07/13/23 Status: Ordered azithromycin 250 mg oral tablet See Instructions, Oral, Daily, Take 2 tabs on day 1 and 1 tab on day 2-5, # 6 tab, 0 Refill(s), Pharmacy: [facility], 154, cm, 08/21/23 11:26:00 EDT, [...] DAILY, # 90 tab, 3 Refill(s), Pharmacy: [facility], 155, cm, 05/04/23 10:37:00 EST, Height, 81.6, kg, 07/01/23 15:10:00 EST, Weight Dosing Start Date: 07/01/23 Status: Ordered ferrous sulfate 325 mg (65 mg elemental iron) oral delayed release tablet 325 mg = 1 tab, Oral, Daily, # 90 tab, 0 Refill(s), Pharmacy: [facility], 156, cm, 03/27/22 [...] WHEEZING, # 90 mL, 4 Refill(s), Pharmacy: [facility], 155, cm, 05/04/23 10:37:00 EST, Height, 81.51, kg, 07/23/23 10:33:00 EST, Weight Dosing Start Date: 08/03/23 Status: Ordered omeprazole 40 mg oral delayed release capsule 40 mg = 1 cap, Oral, Daily, # 90 cap, 3 Refill(s), Pharmacy: [facility], 155, cm, 12/04/22 20:52:00 EDT, Height/Length Dosing, 69.4, kg, 12/04/22 20:52:00 EDT, Weight Dosing Start Date: 01/29/23 Status: Ordered Oxygen Therapy Supply, See instructions, # 1 EA, 0 Refill(s) Start Date: 11/19/22 Status: Ordered pramipexole 1 mg oral tablet See Instructions, Take 2 tablets by mouth twice daily, # 120 tab, 6 Refill(s), Pharmacy: [facility], 155, cm, 05/04/23 10:37:00 EST, Height, 78.97, kg, 05/14/23 10:34:00 EST, Weight Dosing Start Date: 05/29/23 Status: Ordered predniSONE 10 mg oral tablet See Instruction, Oral, Daily, 4 tabs daily x3 days, 3 tabs daily x3 days, 2 tabs daily x3 days, 1 tab daily x3 days, # 30 tab, 0 Refill(s), Pharmacy: [facility], 154, cm, 08/21/23 11:26:00EDT, Height, 82.7, kg, 08/27/23 8:05:00 EDT, Weight Dosing Start Date: 08/27/23 Status: Ordered traMADol 50 mg oral tablet 100 mg = 2 tab, Oral, every 8 hr, PRN as needed for pain, # 168 tab, 0 Refill(s), Pharmacy: [facility]156, 154, cm, 08/21/23 11:26:00 EDT, Height, 82.7, kg, 08/27/23 8:05:00 EDT, Weight Dosing Start Date: 08/31/23 Status: Ordered Vitamin C 500 mg oral tablet 500 mg = 1 tab, Oral, Daily, # 90 tab, 0 Refill(s), Pharmacy: [facility], 156, cm, 03/27/22 [...] Overview: Added automatically from request for surgery [id number] 2Outside Source Comment: Overview: Added automatically from request for surgery [id number] Procedures Procedure Date Related Diagnosis Body Site [...] 5 year call-back 5Sisson 6right, d/t cyst [id number] with Left salpingectomy Results Laboratory List Name Date Sodium Level Urine 09/07/23 Basic Metabolic Panel (BMP) 09/07/23 Ferritin 09/07/23 TSH w/ Rflx to Free T4 09/07/23 Most recent to oldest [Reference Range]: 1 BUN [7-18 mg/dL] 21 mg/dL *HI* (09/07/23 10:53 AM) Glucose Level [74-106 mg/dL] 115 mg/dL *HI* (09/07/23 10:53 AM) Potassium Level [3.5-5.1 mmol/L] 4.1 mmo l/L (09/07/23 10:53 AM) Sodium Level [136-145 mmol/L] 136 mmol/L (09/07/23 10:53 AM) Calcium Level [8.5-10.1 mg/dL] 8.9 mg/dL (09/07/23 10:53 AM) Ferritin Level [8-252 ng/mL] 39 ng/mL (09/07/23 10:53 AM) CO2 [21-32 mmol/L] 30 mmol/L (09/07/23 10:53 AM) TSH [0.358-3.740 mcIntlUnit/mL] 1.511 mc IntlUnit/mL (09/07/23 10:53 AM) eGFR Non-AA [>=60] 91 (09/07/23 10:53 AM) eGFR AA [>=60] 91 (09/07/23 10:53 AM) Chloride Level [98-107 mmol/L] 98 mmol/L (09/07/23 10:53 AM) Creatinine Level [0.55-1.02 mg/dL] 0.71 mg/dL (09/07/23 10:53 AM) U Sodium 122 mmol/L *NA* (09/07/23 12:00 PM) Social History Social History Type Response Smoking Status Smoking tobacco use: Current everyday tobacco user;Never; Number used per day: 1.5 PPD; entered on: 06/15/23 Sex Female History and physical note * Event Display: History and Physical Update Authored Date: [id number] Patient Care team information Care Team Personnel Name: Dilan Hernandez MD Position: Physician Member Role: Informed Provider Address: Address: [id number] [place] [address] Care Team Related Persons Name: LIAM QUIGLEY Address: [address] [address] Address: Home [address] [place] [phone] Address: Mailing [address] [place] [phone] Name: GRACIELA COUCH Address: Home [address] [place] [phone]
--- OUTSIDE RECORDS SUMMARY | 2024-07-07 20:04 | XMS_ITS | Continuity of Care Document ---
Author Organization [facility] Address [address] [place] [address] Care Team Providers Care Enterprise Engineer Name Role Phone Dilan Hernandez Primary Care Physician Encounter [facility] [id number] Date(s): 08/12/23 - 08/12/23 [facility] [address] [place] [address] Discharge Disposition: Home Allergies, Adverse Reactions, Alerts [...] Inactivated Influenza 01/20/2019 Administered by NOEMÍ HERNANDEZ, Supervisor Wool Shearing 04-09-2020 2Result Comment: influenza, trivalent, adjuvanted VIS given: 03-24-2019 VIS published date: Inactivated Influenza 01/20/2019 Administered by SOWMYA MCMILLAN, Supervisor Wool Shearing 03-24-2019 3Result Comment: influenza, high dose seasonal Administered by: SULTANA 4Result Comment: William 5Result Comment: Moderna bivalent, 6+ months, blue cap 6Result Comment: influenza, high-dose, quadrivalent Patient Declined Last Modified by SOWMYA MCMILLAN, [facility] 06-21-2020, 11:26 Medications Albuterol (Eqv-ProAir HFA) 90 mcg/inh inhalation aerosol 2 puffs, Inhale, every 4 hr, # 8.5 g, 6 Refill(s), Pharmacy: [facility], 155, cm, 05/04/23 10:37:00 EST, Height, 81.6, kg, 07/01/23 15:10:00 EST, Weight Dosing Start Date: 07/01/23 Status: Ordered amoxicillin 500 mg oral capsule 500 mg = 1 cap, Oral, TID, # 21 cap, 0 Refill(s), Pharmacy: [facility], 155, cm, 05/04/23 10:37:00 EST, Height, 81.51, kg, 07/23/23 10:33:00 EST, Weight Dosing Start Date: 07/23/23 Stop Date: 07/30/23 Status: Ordered apixaban 5 mg oral tablet 5 mg = 1 tab, Oral, BID, # 60 tab, 3 Refill(s), Pharmacy: [facility] 4156, 155, cm, 05/04/23 10:37:00 EST, [...] DAILY, # 90 tab, 3 Refill(s), Pharmacy: [facility] 4156, 155, cm, 05/04/23 10:37:00 EST, Height, 81.6, kg, 07/01/23 15:10:00 EST, Weight Dosing Start Date: 07/01/23 Status: Ordered ferrous sulfate 325 mg (65 mg elemental iron) oral delayed release tablet 325 mg = 1 tab, Oral, Daily, # 90 tab, 0 Refill(s), Pharmacy: [facility], 156, cm, 03/27/22 9:33:00 EDT, Height/Length [...] 90 mL, 4 Refill(s), Pharmacy: [facility] [facility] [id number], 155, cm, 05/04/23 10:37:00 EST, Height, 81.51, kg, 07/23/23 10:33:00 EST, Weight Dosing Start Date: 08/03/23 Status: Ordered omeprazole 40 mg oral delayed release capsule 40 mg = 1 cap, Oral, Daily, # 90 cap, 3 Refill(s), Pharmacy: [facility] [address], 155, cm, 12/04/22 20:52:00 EDT, Height/Length Dosing, 69.4, kg, 12/04/22 20:52:00 EDT, Weight Dosing Start Date: 01/29/23 Status: Ordered Oxygen Therapy Supply, See instructions, # 1 EA, 0 Refill(s) Start Date: 11/19/22 Status: Ordered pramipexole 1 mg oral tablet See Instructions, Take 2 tablets by mouth twice daily, # 120 tab, 6 Refill(s), Pharmacy: [facility] [address], 155, cm, 05/04/23 10:37:00 EST, Height, 78.97, kg, 05/14/23 10:34:00 EST, Weight Dosing Start Date: 05/29/23 Status: Ordered traMADol 50 mg oral tablet 50 mg = 1 tab, Oral, every 4 hr, PRN as needed for pain, # 28 tab, 0 Refill(s), Pharmacy: [facility] [address], 155, cm, 05/04/23 10:37:00 EST, Height, 81.6, kg, 07/01/23 15:10:00 EST, Weight Dosing Start Date: 07/13/23 Status: Ordered Trelegy Ellipta 100 mcg-62.5 mcg-25 mcg/inh inhalation powder See Instructions, INHALE 1 PUFF ONCE DAILY AT THE SAME TIME EACH DAY, # 60 EA, 4 Refill(s), Pharmacy: [facility] [address], 155, cm, 12/04/22 20:52:00 EDT, Height/Length Dosing, 69.4, kg, 12/04/22 20:52:00 EDT, Weight Dosing Start Date: 03/17/23 Status: Ordered Vitamin C 500 mg oral tablet 500 mg = 1 tab, Oral, Daily, # 90 tab, 0 Refill(s), Pharmacy: [facility], 156, cm, 03/27/22 9:33:00 EDT, [...] Overview: Added automatically from request for surgery [id number] 2Outside Source Comment: Overview: Added automatically from request for surgery [id number] Procedures Procedure Date Related Diagnosis Body Site [...] 5 year call-back 5Sisson 6right, d/t cyst 76788/1982 with Left salpingectomy Social History Social History Type Response Smoking Status Smoking tobacco use: Current everyday tobacco user;Never; Number used per day: 1.5 PPD; entered on: 06/15/23 Sex Female History and physical note * Event Display: History and Physical Update Authored Date: [id number] Patient Care team information Care Team Personnel Name: Dilan Hernandez MD Position: Physician Member Role: Informed Provider Address: Address: [address] Care Team Related Persons Name: LIAM QUIGLEY Address: [address] [address] Address: [address] [id number] Address: Mailing [address] [place] [phone] Name: GRACIELA COUCH Address: [address] [phone]
--- OUTSIDE RECORDS SUMMARY | 2024-07-07 20:04 | XMS_ITS | Continuity of Care Document ---
Author Organization [facility] Address [address] [place] [address] Care Team Providers Care Administrative Assistant Office Manager Name Role Phone Dilan Hernandez Primary Care Physician [phone] Encounter [facility] Date(s): 06/05/23 - 06/05/23 [facility] [address] [place] [address] Discharge Disposition: Home Allergies, Adverse Reactions, Alerts [...] Inactivated Influenza 01/20/2019 Administered by NOEMÍ HERNANDEZ, Banking Manager 04-09-2020 2Result Comment: influenza, trivalent, adjuvanted VIS given: 03-24-2019 VIS published date: Inactivated Influenza 01/20/2019 Administered by SOWMYA MCMILLAN, Banking Manager 03-24-2019 3Result Comment: influenza, high dose seasonal Administered by: SULTANA 4Result Comment: William 5Result Comment: influenza, high-dose, quadrivalent Patient Declined Last Modified by SOWMYA MCMILLAN, [facility] 06-21-2020, 11:26 Medications Albuterol (Eqv-ProAir HFA) 90 mcg/inh inhalation aerosol 2 puffs, Inhale, every 4 hr, # 8.5 g, 6 Refill(s), Pharmacy: [facility], 156, cm, 03/27/22 [...] DAILY, # 90 tab, 3 Refill(s), Pharmacy: [facility] [facility] [address], 156, cm, 03/27/22 9:33:00 EDT, Height/Length Dosing, 68.04, kg, 03/27/22 9:33:00EDT, Weight Dosing Start Date: 05/12/22 Status: Ordered ferrous sulfate 325 mg (65 mg elemental iron) oral delayed release tablet 325 mg = 1 tab, Oral, Daily, # 90 tab, 0 Refill(s), Pharmacy: [facility] [facility] [address], 156, cm, 03/27/22 9:33:00 EDT, Height/Length Dosing, 68.04, kg, 03/27/22 9:33:00 EDT, Weight Dosing Start Date: 08/15/22 Status: Ordered ipratropium-albuterol 0.5 mg-2.5 mg/3 mL inhalation solution See Instructions, USE 1 AMPULE IN NEBULIZER EVERY 4 HOURS NEEDED FOR SHORTNESS OF BREATH OR WHEEZING, # 90 mL, 4 Refill(s), Pharmacy: [facility] [facility] [address], 154, cm, 04/03/23 18:11:00 EDT, Height/Length Dosing, 76.6, kg, 04/15/23 11:00:00 EST, Weight Dosing Start Date: 04/15/23 Status: Ordered Lyrica 25 mg oral capsule 25 mg = 1 cap, Oral, TID, # 90 cap, 3 Refill(s), Pharmacy: [facility] [address], 155, cm, 05/04/2310:37:00 EST, Height, 78.97, kg, 05/14/23 10:34:00 EST, Weight Dosing Start Date: 05/14/23 Status: Ordered omeprazole 40 mg oral delayed release capsule 40 mg = 1 cap, Oral, Daily, # 90 cap, 3 Refill(s), Pharmacy: [facility] [id number], 155, cm, 12/04/22 20:52:00 EDT, Height/Length Dosing, 69.4, kg, 12/04/22 20:52:00 EDT, Weight Dosing Start Date: 01/29/23 Status: Ordered Oxygen Therapy Supply, See instructions, # 1 EA, 0 Refill(s) Start Date: 11/19/22 Status: Ordered Ozempic 2 mg/3 mL (0.25 mg or 0.5 mg dose) subcutaneous solution 0.25 mg =, Subcutaneous, every week, rotate injection sites, # 1 EA, 0 Refill(s), Pharmacy: [facility] [address], 154, cm, 04/03/23 18:11:00 EDT, Height/Length Dosing, 76.35, kg, 04/23/23 14:48:00 EST, Weight Dosing Start Date: 04/27/23 Status: Ordered pramipexole 1 mg oral tablet See Instructions, Take 2 tablets by mouth twice daily, # 120 tab, 6 Refill(s), Pharmacy: [facility] [address], 155, cm, 05/04/23 10:37:00 EST, Height, 78.97, kg, 05/14/23 10:34:00 EST, Weight Dosing Start Date: 05/29/23 Status: Ordered pramipexole 1 mg oral tablet See Instructions, 0 Refill(s) Start Date: 04/15/23 Status: Ordered Trelegy Ellipta 100 mcg-62.5 mcg-25 mcg/inh inhalation powder See Instructions, INHALE 1 PUFF ONCE DAILY AT THE SAME TIME EACH DAY, # 60 EA, 4 Refill(s), Pharmacy: [facility] [facility] [address], 155, cm, 12/04/22 20:52:00 EDT, Height/Length Dosing, 69.4, kg, 12/04/22 20:52:00 EDT, Weight Dosing Start Date: 03/17/23 Status: Ordered Vitamin C 500 mg oral tablet 500 mg = 1 tab, Oral, Daily, # 90 tab, 0 Refill(s), Pharmacy: [facility], 156, [...] Overview: Added automatically from request for surgery [id number] 2Outside Source Comment: Overview: Added automatically from request for surgery [id number] Procedures Procedure Date Related Diagnosis Body Site [...] 5 year call-back 5Sisson 6right, d/t cyst [id number]/1983 with Left salpingectomy Social History Social History Type Response Smoking Status Smoking tobacco use: Current everyday tobacco user;Never; Number used per day: 1.5 PPD; entered on: 04/02/23 Sex Female History and physical note * Event Display: History and Physical Update Authored Date: [id number] Patient Care team information Care Team Personnel Name: Lippmann, Juan MD Position: Physician Member Role: Informed Provider Address: Address: [address] [address]- Care Team Related Persons Name: LIAM QUIGLEY Address: [address], [address] Address: Home [address] [place] [phone] Address: Mailing [address] [place] [phone] Name: GRACIELA COUCH Address: Home [address] [place] [phone]
--- OUTSIDE RECORDS SUMMARY | 2024-07-07 20:05 | XMS_ITS | Continuity of Care Document ---
Author Organization [facility] Address [address] [place] [address] Care Team Providers Care Mercerizer Name Role Phone Dilan Hernandez Primary Care Physician [phone] [facility]13[facility] [address] [place] [address] Discharge Disposition: Home or Self Care Attending Physician: Jaimee Cerda NP Admitting Physician: Jaimee Cerda NP Referring Physician: Jaimee Cerda CARDIOVASCULAR SURGEON Allergies, Adverse Reactions, Alerts No Known Medication [...] Inactivated Influenza 01/20/2019 Administered by NOEMÍ HERNANDEZ, Staff Educator 04-09-2020 3Result Comment: influenza, trivalent, adjuvanted VIS given: 03-24-2019 VIS published date: Inactivated Influenza 01/20/2019 Administered by SOWMYA MCMILLAN, [facility] 03-24-2019 4Result Comment: influenza, high dose seasonal Administered by: SULTANA 5Result Comment: influenza, high-dose, quadrivalent Patient Declined Last Modified by SOWMYA MCMILLAN [facility] 06-21-2020, 11:26 Medications Albuterol (Eqv-ProAir HFA) 90 mcg/inh inhalation aerosol 2 puffs, Inhale, every 4 hr, # 8.5 g, 6 Refill(s), Pharmacy: [facility], 156, cm, 03/27/22 9:33:00 EDT, Height/Length Dosing, 68.04, kg, 03/27/22 9:33:00 EDT, Weight Dosing Start Date: 09/29/22 Status: Ordered Ativan 0.5 mg oral tablet See Instructions, take 30-60 minutes prior to procedure., # 1 tab, 0 Refill(s), Pharmacy: [facility], 156, cm, 10/20/22 9:33:00 EDT, Height/Length Dosing, 68.04, kg, 03/27/22 [...] before procedure., # 2tab, 0 Refill(s), Pharmacy: [facility], 156, cm, 03/27/22 9:33:00 EDT, Height/Length Dosing, 68.04, kg, 03/27/22 9:33:00 EDT, Weight Dosing Start Date: 10/10/22 Status: Ordered escitalopram 10 mg oral tablet 10 mg = 1 tab, Oral, Daily, TAKE 1 TABLET BY MOUTH ONCE DAILY, # 90 tab, 3 Refill(s), Pharmacy: [facility], 156, cm, 03/27/22 9:33:00 EDT, Height/Length Dosing, 68.04, kg, 03/27/22 9:33:00EDT, Weight Dosing Start Date: 05/12/22 Status: Ordered ferrous sulfate 325 mg (65 mg elemental iron) oral delayed release tablet 325 mg = 1 tab, Oral, Daily, # 90 tab, 0 Refill(s), Pharmacy: [facility], 156, cm, 03/27/22 9:33:00 EDT, Height/Length Dosing, 68.04, kg, 03/27/22 9:33:00 EDT, Weight Dosing Start Date: 08/15/22 Status: Ordered ipratropium-albuterol 0.5 mg-2.5 mg/3 mL inhalation solution 3 mL, NEB, every 4 hr, PRN as needed for shortness of breath or wheezing, COPD J44.1, # 90 mL, 3 Refill(s), Pharmacy: [facility], 155, cm, 12/04/22 20:52:00 EDT, Height/Length Dosing, 69.4, kg, 12/04/22 20:52:00 EDT, Weight Dosing Start Date: 12/15/22 Status: Ordered omeprazole 40 mg oral delayed release capsule 40 mg = 1 cap, Oral, Daily, # 90 cap, 3 Refill(s), Pharmacy: [facility], 155, cm, 12/04/22 20:52:00 [...] mg oral tablet See Instructions, Tapered dose 62-80-86-65-03-98-29-55-02-20-10-10, # 42 EA, 0 Refill(s), Pharmacy:[facility], 155, cm, 12/04/22 20:52:00 [...] Daily, # 90 tab, 0 Refill(s), Pharmacy: [facility], 156, cm, 03/27/22 9:33:00 [...] Overview: Added automatically from request for surgery [id number] 2Outside Source Comment: Overview: Added automatically from request for surgery [id number] Procedures Procedure Date Related Diagnosis Body Site [...] salpingectomy Results Laboratory List Name Date Ferritin 02/13/23 Most recent to oldest [Reference Range]: 1 Ferritin Level [8-252 ng/mL] 35 ng/mL (02/13/23 9:09 AM) Social History Social History Type Response Smoking Status Smoking tobacco use: Current everyday tobacco user;Never; Number used per day: 1.5 PPD; entered on: 03/27/22 Sex Female History and physical note * Event Display: History and Physical Update Authored Date: [id number] Patient Care team information Care Team Personnel Name: Dilan Hernandez MD Position: Physician Member Role: Informed Provider Address: Address: [address] [address] Care Team Related Persons Name: LIAM QUIGLEY Address: [address], [address] Address: [address] [phone] Name: LIAM QUIGLEY Address: [address] [phone] Name: GRACIELA COUCH Address: Home [address] [facility] [phone]
--- OUTSIDE RECORDS SUMMARY | 2024-07-07 20:05 | XMS_ITS | Continuity of Care Document ---
Author Organization [facility] Address [address] [place] [address] Care Team Providers Care Paid Search Specialist Name Role Phone Dilan Hernandez Primary Care Physician Encounter [facility] Date(s): 04/03/23 - 04/03/23 [facility] [address] [place] [address] Discharge Disposition: Left Without Being Seen Attending Physician: Yumiko Ghosh MD Admitting Physician: Yumiko Ghosh MD Allergies, Adverse Reactions, Alerts No Known Medication Allergies Assessment and Plan Future Appointments Future Scheduled Tests Laboratory* Basic Metabolic Panel 09/29/22 * Hemoglobin A1c 09/29/22 Functional Status 04/03/23 Family Member Travel History No recent t [...] Inactivated Influenza 01/20/2019 Administered by NOEMÍ HERNANDEZ, Governor Assembler Hydraulic 04-09-2020 2Result Comment: influenza, trivalent, adjuvanted VIS given: 03-24-2019 VIS published date: Inactivated Influenza 01/20/2019 Administered by SOWMYA MCMILLAN, Governor Assembler Hydraulic 03-24-2019 3Result Comment: influenza, high dose seasonal Administered by: SULTANA 4Result Comment: William 5Result Comment: influenza, high-dose, quadrivalent Patient Declined Last Modified by SOWMYA MCMILLAN Governor Assembler Hydraulic 06-21-2020, 11:26 Medications Albuterol (Eqv-ProAir HFA) 90 mcg/inh inhalation aerosol 2 puffs, Inhale, every 4 hr, # 8.5 g, 6 Refill(s), Pharmacy: [facility], 156, cm, 03/27/22 9:33:00 EDT, Height/Length Dosing, 68.04, kg, 03/27/22 9:33:00 EDT, Weight Dosing Start Date: 09/29/22 Status: Ordered Ativan 0.5 mg oral tablet See Instructions, take 30-60 minutes prior to procedure., # 1 tab, 0 Refill(s), Pharmacy: [facility], 156, cm, 03/27/22 9:33:00 EDT, Height/Length Dosing, 68.04, kg, 03/27/22 9:33:00 EDT, Weight Dosing Start Date: 09/29/22 Status: Ordered Cipro 500 mg oral tablet 500 mg = 1 tab, Oral, every 12 hr, X 7 days, # 14 tab, 0 Refill(s), 04/09/23 12:51:00 PM CDT, Pharmacy: [facility], 152, cm, 04/02/23 10:46:00 [...] # 90 tab, 3 Refill(s), Pharmacy: [facility], 156, cm, 03/27/22 9:33:00 EDT, Height/Length Dosing, 68.04, kg, 03/27/22 9:33:00EDT, Weight Dosing Start Date: 05/12/22 Status: Ordered ferrous sulfate 325 mg (65 mg elemental iron) oral delayed release tablet 325 mg = 1 tab, Oral, Daily, # 90 tab, 0 Refill(s), Pharmacy: [facility], 156, cm, 03/27/22 9:33:00 EDT, Height/Length Dosing, 68.04, kg, 03/27/22 9:33:00 EDT, Weight Dosing Start Date: 08/15/22 Status: Ordered ipratropium-albuterol 0.5 mg-2.5 mg/3 mL inhalation solution 3 mL, NEB, every 4 hr, PRN as needed for shortness of breath or wheezing, COPD J44.1, # 180 mL, 3 Refill(s), Pharmacy: [facility], 155, cm, 12/04/22 20:52:00 EDT, Height/Length Dosing, 69.4, kg, 12/04/22 20:52:00 EDT, Weight Dosing Start Date: 03/05/23 Status: Ordered omeprazole 40 mg oral delayed release capsule 40 mg = 1 cap, Oral, Daily, # 90 cap, 3 Refill(s), Pharmacy: [facility], 155, cm, 12/04/22 20:52:00 [...] DAY, # 60 EA, 4 Refill(s), Pharmacy: [facility], 155, cm, 12/04/22 20:52:00 EDT, Height/Length Dosing, 69.4, kg, 12/04/22 20:52:00 EDT, Weight Dosing Start Date: 03/17/23 Status: Ordered Vitamin C 500 mg oral tablet 500 mg = 1 tab, Oral, Daily, # 90 tab, 0 Refill(s), Pharmacy: [facility], 156, cm, 03/27/22 9:33:00 [...] Overview: Added automatically from request for surgery [id number] 2Outside Source Comment: Overview: Added automatically from request for surgery [id number] Procedures Procedure Date Related Diagnosis Body Site [...] Most recent to oldest [Reference Range]: 1 Temperature Temporal Artery [36-38 Deg C ] 36.7 Deg C (04/03/23 2:50 PM) Peripheral Pulse Rate [60-100 bpm] 108 b pm *HI* (04/03/23 2:50 PM) Blood Pressure [90-140/60-90 mmHg] 122/7 5mmHg (04/03/23 2:50 PM) Mean Arterial Pressure, Cuff [65-140 mmH g] 91 mmHg (04/03/23 2:50 PM) Weight Dosing 72.57 kg (04/03/23 2:59 PM) Weight Estimated 72.57 kg (04/03/23 2:50 PM) Height/Length Dosing 152.000 cm (04/03/23 2:59 PM) Height/Length Estimated 152.000 cm (04/03/23 2:50 PM) Social History Social History Type Response Smoking Status Smoking tobacco use: Current everyday tobacco user;Never; Number used per day: 1.5 PPD; entered on: 04/02/23 Sex Female History and physical note * Event Display: History and Physical Update Authored Date: [id number] Patient Care team information Care Team Personnel Name: Dilan Hernandez MD Position: Physician Member Role: Informed Provider Address: Address: [address] Care Team Related Persons Name: LIAM QUIGLEY Address: [address] [address] Address: Home [address] [place] [id number] Name: LIAM QUIGLEY Address: [address] [phone] Name: GRACIELA COUCH Address: [address] [phone]
--- OUTSIDE RECORDS SUMMARY | 2024-07-07 20:05 | XMS_ITS | Continuity of Care Document ---
Author Organization [facility] Address [address] [place] [address] Care Team Providers Care Manager Unit Name Role Phone Dilan Hernandez Primary Care Physician Encounter [facility] [id number] Date(s): 10/23/22 - 10/23/[address] [address] Discharge Disposition: Home or Self Care Attending Physician: Jaimee Cerda NP Admitting Physician: Jaimee Cerda NP Referring Physician: Jaimee Cerda CASING WRINGER OPERATOR Allergies, Adverse Reactions, Alerts No Known [...] Inactivated Influenza 01/20/2019 Administered by NOEMÍ HERNANDEZ, Sketch Artist 04-09-2020 3Result Comment: influenza, trivalent, adjuvanted VIS given: 03-24-2019 VIS published date: Inactivated Influenza 01/20/2019 Administered by SOWMYA MCMILLAN, Sketch Artist 03-24-2019 4Result Comment: influenza, high dose seasonal Administered by: SULTANA 5Result Comment: influenza, high-dose, quadrivalent Patient Declined Last Modified by SOWMYA MCMILLAN Sketch Artist 06-21-2020, 11:26 Medications Albuterol (Eqv-ProAir HFA) 90 mcg/inh inhalation aerosol 2 puffs, Inhale, every 4 hr, # 8.5 g, 6 Refill(s), Pharmacy: [facility], 156, cm, 03/27/22 9:33:00 EDT, Height/Length Dosing, 68.04, kg, 03/27/22 9:33:00 EDT, Weight Dosing Start Date: 09/29/22 Status: Ordered Ativan 0.5 mg oral tablet See Instructions, take 30-60 minutes prior to procedure., # 1 tab, 0 Refill(s), Pharmacy: [facility], 156, cm, 03/27/22 9:33:00 EDT, Height/Length Dosing, 68.04, kg, 03/27/22 9:33:00 EDT, Weight Dosing Start Date: 09/29/22 Status: Ordered diazePAM 2 mg oral tablet See Instructions, Take one tablet 1 hr prior to procedure and 1 tablet right before procedure., # 2tab, 0 Refill(s), Pharmacy: [id number], 156, cm, 03/27/22 9:33:00 EDT, Height/Length Dosing, 68.04, kg, 03/27/22 9:33:00 EDT, Weight Dosing Start Date: 10/10/22 Status: Ordered escitalopram 10 mg oral tablet 10 mg = 1 tab, Oral, Daily, TAKE 1 TABLET BY MOUTH ONCE DAILY, # 90 tab, 3 Refill(s), Pharmacy: [facility] [address], 156, cm, 03/27/22 9:33:00 EDT, Height/Length Dosing, 68.04, kg, 03/27/22 9:33:00EDT, Weight Dosing Start Date: 05/12/22 Status: Ordered ferrous sulfate 325 mg (65 mg elemental iron) oral delayed release tablet 325 mg = 1 tab, Oral, Daily, # 90 tab, 0 Refill(s), Pharmacy: [facility] 254456, 156, cm, 03/27/22 9:33:00 EDT, Height/Length Dosing, 68.04, kg, 03/27/22 9:33:00 EDT, Weight Dosing Start Date: 08/15/22 Status: Ordered nystatin 100,000 units/mL oral suspension 400,000 units = 4 mL, Oral, QID, # 120 mL, 0 Refill(s), Pharmacy: [facility]156, 156, cm, 03/27/22 9:33:00 EDT, Height/Length [...] day, # 60 EA, 4 Refill(s), Pharmacy: [facility], 156, cm, 03/27/22 9:33:00 EDT, Height/Length Dosing, 68.04, kg, 03/27/22 9:33:00 EDT, WeightDosing Start Date: 10/13/22 Status: Ordered Vitamin C 500 mg oral tablet 500 mg = 1 tab, Oral, Daily, # 90 tab, 0 Refill(s), Pharmacy: [facility], 156, cm, 03/27/22 [...] 5 year call-back 5Sisson 6right, d/t cyst [id number] with Left salpingectomy Social History Social History Type Response Smoking Status Smoking tobacco use: Current everyday tobacco user;Never; Number used per day: 1.5 PPD; entered on: 03/27/22 Sex Female History and physical note * Event Display: History and Physical Update Authored Date: [id number] Patient Care team information Care Team Personnel Name: Dilan Hernandez MD Position: Physician Member Role: Primary Care Physician Address: Address: [address] [address]- Care Team Related Persons Name: LIAM QUIGLEY Address: Alternate [address] [place] [id number] Address: Home [address] [place] [phone] Name: GRACIELA COUCH Address: Home [address] [place] [phone]
--- OUTSIDE RECORDS SUMMARY | 2024-07-07 20:05 | XMS_ITS | Continuity of Care Document ---
Author Organization [facility] Address [address] [place] [address] Care Team Providers Care Crop Duster Name Role Phone Dilan Hernandez Primary Care Physician [phone] Encounter [facility] Date(s): 04/25/24 - 04/25/[address] [address] Discharge Disposition: Home or Self Care Attending Physician: Dilan Hernandez MD Admitting Physician: Dilan Henrandez MD Referring Physician: Dilan Hernandez MD Allergies, Adverse Reactions, Alerts No Known Medication Allergies Assessment and Plan Future Appointments Future Scheduled Tests Laboratory* Basic Metabolic Panel 02/11/24 * Basic Metabolic Panel 02/17/24 * Drug Screen Urine 09/28/23 Immunizations [...] Refuses 1Result Comment: right arm,exp 12/05/2024, lot [id number] at [facility] 2Result Comment: left arm, exp 10/28/2024, lot [id number] at [facility] 3Result Comment: influenza, high-dose, quadrivalent VIS given: 04-09-2020 VIS published date: Inactivated Influenza 01/20/2019 Administered by NOEMÍ HERNANDEZ, Supervisor Soakers 04-09-2020 4Result Comment: influenza, trivalent, adjuvanted VIS given: 03-24-2019 VIS published date: Inactivated Influenza 01/20/2019 Administered by SOWMYA MCMILLAN, Supervisor Soakers 03-24-2019 5Result Comment: influenza, high dose seasonal Administered by: SULTANA 6Result Comment: William 7Result Comment: Moderna bivalent, 6+ months, blue cap 8Result Comment: influenza, high-dose, quadrivalent Patient Declined Last Modified by SOWMYA MCMILLAN, Supervisor Soakers 06-21-2020, 11:26 Medications Albuterol (Eqv-ProAir HFA) 90 mcg/inh inhalation aerosol 2 puffs, Inhale, every 4 hr, # 18 g, 6 Refill(s), Pharmacy: [facility], 153.3, cm, 09/17/23 [...] use, # 10.7 g, 6 Refill(s), Pharmacy: [facility], 153.3, cm, 09/17/23 12:47:00 EDT, Height, 80.25, kg, 02/17/24 13:55:00 EDT, Weight Dosing Start Date: 02/17/24 Status: Ordered cephalexin 250 mg oral capsule See Instructions, TAKE 1 CAPSULE BY MOUTH ONCE DAILY, # 90 cap, 0 Refill(s), Pharmacy: [facility], 153.3, cm, 09/17/23 [...] WHEEZING, # 360 EA, 4 Refill(s), Pharmacy: [facility], 153.3, cm, 09/17/23 12:47:00 EDT, Height, 81.5, kg, 12/17/23 9:09:00 EDT, Weight Dosing Start Date: 12/17/23 Status: Ordered nicotine 21 mg/24 hr transdermal film, extended release 1 patches, Transdermal, Daily, apply to skin, # 30 patches, 1 Refill(s), Pharmacy: [facility], 153.3, cm, 09/17/23 12:47:00 EDT, Height, 74, kg, 04/25/24 14:11:00 EST, Weight Dosing Start Date: 04/25/24 Status: Ordered nicotine 4 mg oral transmucosal gum 4 mg = 1 EA, Chewed, every 2 hr, PRN as needed for smoking cessation, # 160 EA, 1 Refill(s), Pharmacy: [facility], 153.3, cm, 09/17/23 12:47:00 EDT, Height, 74, kg, 04/25/24 14:11:00 EST, Weight Dosing Start Date: 04/25/24 Status: Ordered omeprazole 40 mg oral delayed release capsule 40 mg = 1 cap, Oral, Daily, # 90 cap, 3 Refill(s), Pharmacy: [facility], 155, cm, 12/04/22 20:52:00 EDT, Height/Length Dosing, 69.4, kg, 12/04/22 20:52:00 EDT, Weight Dosing Start Date: 01/29/23 Status: Ordered ondansetron 8 mg oral tablet See Instructions, PRN nausea, 1 tab Oral every 6 hours as needed for nausea, # 56 tab, 1 Refill(s),Pharmacy: [facility], 153.3, cm, 09/17/23 12:47:00 EDT, Height, 74, kg, 04/25/24 14:11:00 EST, Weight Dosing Start Date: 04/25/24 Status: Ordered Oxygen Therapy Supply, See instructions, # 1 EA, 0 Refill(s) Start Date: 11/19/22 Status: Ordered Ozempic (1 mg dose) 4 mg/3 mL subcutaneous solution 1 mg =, Subcutaneous, every week, # 9 mL, 3 Refill(s), Pharmacy: [facility], 153.3, cm, 09/17/23 12:47:00 EDT, Height, 80.25, kg, 02/17/24 13:55:00 EDT, Weight Dosing Start Date: 03/23/24 Status: Ordered potassium bicarbonate 20 mEq oral tablet, effervescent 20 mEq = 1 tab, Oral, BID, dissolve in water or juice, # 60 tab, 1 Refill(s), Pharmacy: [facility] [address], 153.3, cm, 09/17/23 12:47:00 EDT, Height, 80.25, kg, 02/17/24 13:55:00 EDT, Weight Dosing Start Date: 02/17/24 Status: Ordered pramipexole 1 mg oral tablet See Instructions, Take 1 tablets by mouth QAM and two tablets QPM, # 90 tab, 6 Refill(s), Pharmacy:[facility]156, 153.3, cm, 09/17/23 12:47:00 EDT, Height, 80.25, kg, 02/17/24 13:55:00 EDT, Weight Dosing Start Date: 02/24/24 Status: Ordered torsemide 20 mg oral tablet 20 mg = 1 tab, Oral, Daily, # 90 tab, 1 Refill(s), Pharmacy: [facility], 153.3, cm, 09/17/23 12:47:00 EDT, [...] Overview: Added automatically from request for surgery [id number] 2Outside Source Comment: Overview: Added automatically from request for surgery [id number] Procedures Procedure Date Related Diagnosis Body Site [...] 5 year call-back 5Sisson 6right, d/t cyst [id number]/1983 with Left salpingectomy Results Laboratory List Name Date Automated Diff 04/25/24 Basic Metabolic Panel (BMP) 04/25/24 CBC w/ Diff 04/25/24 Hemoglobin A1c 04/25/24 Most recent to oldest [Reference Range]: 1 WBC [5.0-10.0 x10^3/mcL] 14.6 x10^3/mcL *HI* (04/25/24 3:14 PM) RBC [4.1-5.3 x10^6/mcL] 4.6 x10^6/mcL (04/25/24 3:14 PM) Neutro Auto [40.0-75.0 %] 70.1 % (04/25/24 3:14 PM) Lymph Auto [20.0-50.0 %] 22.6 % (04/25/24 3:14 PM) Elliott Auto [2.0-15.0 %] 5.3 % (04/25/24 3:14 PM) Basophil Auto [0.0-1.0 %] 0.3 % (04/25/24 3:14 PM) BUN [7-18 mg/dL] 19 mg/dL *HI* (04/25/24 3:14 PM) Glucose Level [74-106 mg/dL] 121 mg/dL *HI* (04/25/24 3:14 PM) Potassium Level [3.5-5.1 mmol/L] 3.4 mmo l/L *LOW* (04/25/24 3:14 PM) MCV [80.0-96.0 fL] 89.0 fL (04/25/24 3:14 PM) MCHC [31.0-35.0 g/dL] 32.3 g/dL (04/25/24 3:14 PM) Sodium Level [136-145 mmol/L] 138 mmol/L (04/25/24 3:14 PM) Hct [37.0-47.0 %] 40.6 % (04/25/24 3:14 PM) Calcium Level [8.5-10.1 mg/dL] 8.9 mg/dL (04/25/24 3:14 PM) MCH [26.0-32.0 pg] 28.7 pg (04/25/24 3:14 PM) Neutro Absolute 10.2 x10^3/mcL *NA* (04/25/24 3:14 PM) Hgb [12.0-16.0 g/dL] 13.1 g/dL (04/25/24 3:14 PM) Platelets [130-450 x10^3/mcL] 428 x10^3/ mcL (04/25/24 3:14 PM) CO2 [21-32 mmol/L] 32 mmol/L (04/25/24 3:14 PM) eGFR Non-AA [>=60] 43 *LOW* (04/25/24 3:14 PM) eGFR AA [>=60] 43 *LOW* (04/25/24 3:14 PM) Hemoglobin A1c [4.0-5.6 %] 6.3 % 1 *HI* (04/25/24 3:14 PM) Chloride Level [98-107 mmol/L] 97 mmol/L *LOW* (04/25/24 3:14 PM) RDW-CV [11.5-14.5 %] 15.3 % *HI* (04/25/24 3:14 PM) Imm Gran Auto [0.0-0.9 %] 0.5 % (04/25/24 3:14 PM) Slide Review Not Indicated (04/25/24 3:14 PM) Creatinine Level [0.55-1.02 mg/dL] 1.33 mg/dL *HI* (04/25/24 3:14 PM) Eos, Auto [1.0-6.0 %] 1.2 % (04/25/24 3:14 PM) 1Interpretive Data: New test method effective 07-07-23. Establishment of new HA1c baseline is recommended. The following A1c interpretive data reflect the 2017 [place] [employer] (ADA) guidelinesand will be reported [...] Display: History and Physical Update Authored Date: [id number] Patient Care team information Care Team Personnel Name: Dilan Hernandez MD Position: Physician Member Role: Informed Provider Address: [address] Care Team Related Persons Name: LIAM QUIGLEY Name: GRACIELA COUCH Insurance Providers Guarantor name: AUBREE COUCH Health Plan Information #: 1 Payer: [employer] PPO Member Number: [id number] Policy Number: NA Health Plan Information #: 2 Payer: [employer] PPO Member Number: [id number] Policy Number: NA
--- OUTSIDE RECORDS SUMMARY | 2024-07-07 20:05 | XMS_ITS | Continuity of Care Document ---
Author Organization [facility] Address [address] [place] [address] Care Team Providers Care Nursing Unit Manager Name Role Phone Dilan Hernandez Primary Care Physician Encounter [facility] [id number] Date(s): 11/07/22 - 11/07/22 [facility] [address] [place] [address] Encounter Diagnosis Chronic obstructive lung disease(Discharge Diagnosis) - 11/06/22 Restless legs(Discharge Diagnosis) - 11/06/22 Discharge Disposition: Home or Self Care Attending Physician: Jaimee Cerda SUPERVISOR [employer] Allergies, Adverse Reactions, Alerts No Known Medication Allergies Assessment and Plan Future Appointments Future Scheduled Tests Laboratory* Cortisol [facility] 11/11/21 * Basic Metabolic Panel 09/29/22 * Hemoglobin A1c 09/29/22 Functional Status 11/07/22 Other exposure to Infectious Disease Non e [...] Inactivated Influenza 01/20/2019 Administered by NOEMÍ HERNANDEZ, Insemination Worker 04-09-2020 3Result Comment: influenza, trivalent, adjuvanted VIS given: 03-24-2019 VIS published date: Inactivated Influenza 01/20/2019 Administered by SOWMYA MCMILLAN, Insemination Worker 03-24-2019 4Result Comment: influenza, high dose seasonal Administered by: SULTANA 5Result Comment: influenza, high-dose, quadrivalent Patient Declined Last Modified by SOWMYA MCMILLAN Insemination Worker 06-21-2020, 11:26 Medications Albuterol (Eqv-ProAir HFA) 90 mcg/inh inhalation aerosol 2 puffs, Inhale, every 4 hr, # 8.5 g, 6 Refill(s), Pharmacy: [id number], 156, cm, 03/27/22 9:33:00 EDT, Height/Length Dosing, 68.04, kg, 03/27/22 9:33:00 EDT, Weight Dosing Start Date: 09/29/22 Status: Ordered Ativan 0.5 mg oral tablet See Instructions, take 30-60 minutes prior to procedure., # 1 tab, 0 Refill(s), Pharmacy: [place] [id number], 156, cm, 03/27/22 9:33:00 EDT, Height/Length Dosing, 68.04, kg, 03/27/22 9:33:00 EDT, Weight Dosing Start Date: 09/29/22 Status: Ordered diazePAM 2 mg oral tablet See Instructions, Take one tablet 1 hr prior to procedure and 1 tablet right before procedure., # 2tab, 0 Refill(s), Pharmacy: [place] [address], 156, cm, 03/27/22 9:33:00 EDT, Height/Length Dosing, 68.04, kg, 03/27/22 9:33:00 EDT, Weight Dosing Start Date: 10/10/22 Status: Ordered escitalopram 10 mg oral tablet 10 mg = 1 tab, Oral, Daily, TAKE 1 TABLET BY MOUTH ONCE DAILY, # 90 tab, 3 Refill(s), Pharmacy: [place] [facility] [address], 156, cm, 03/27/22 9:33:00 EDT, Height/Length Dosing, 68.04, kg, 03/27/22 9:33:00EDT, Weight Dosing Start Date: 05/12/22 Status: Ordered ferrous sulfate 325 mg (65 mg elemental iron) oral delayed release tablet 325 mg = 1 tab, Oral, Daily, # 90 tab, 0 Refill(s), Pharmacy: [id number], 156, cm, 03/27/22 9:33:00 EDT, Height/Length Dosing, 68.04, kg, 03/27/22 9:33:00 EDT, Weight Dosing Start Date: 08/15/22 Status: Ordered nystatin 100,000 units/mL oral suspension 400,000 units = 4 mL, Oral, QID, # 120 mL, 0 Refill(s), 11/14/22 10:40:00 EDT, Pharmacy: [facility], 156, cm, 03/27/22 9:33:00 EDT, Height/Length Dosing, 68.04, kg, 03/27/22 9:33:00 EDT, Weight Dosing Start Date: 11/07/22 Stop Date: 11/14/22 Status: Ordered nystatin 100,000 units/mL oral suspension 400,000 units = 4 mL, Oral, QID, # 120 mL, 0 Refill(s), Pharmacy: [id number], 156, cm, 03/27/22 9:33:00 EDT, [...] cough, # 21 cap, 0 Refill(s), Pharmacy: [facility], 156, cm, 03/27/22 9:33:00 EDT, Height/Length Dosing, 68.04, kg, 03/27/22 9:33:00 EDT, Weight Dosing Start Date: 11/07/22 Stop Date: 11/14/22 Status: Ordered Trelegy Ellipta 100 mcg-62.5 mcg-25 mcg/inh inhalation powder 1 puffs, Inhale, Daily, at the same time every day, # 60 EA, 4 Refill(s), Pharmacy: [facility], 156, cm, 03/27/22 9:33:00 EDT, [...] Daily, # 90 tab, 0 Refill(s), Pharmacy: [facility], 156, cm, 03/27/22 9:33:00 EDT, [...] 5 year call-back 5Sisson 6right, d/t cyst 59635/1982 with Left salpingectomy Vital Signs Most recent to oldest [Reference Range]: 1 Peripheral Pulse Rate [60-100 bpm] 68 bp m (11/07/22 9:00 AM) Blood Pressure [90-140/60-90 mmHg] 116/6 4mmHg (11/07/22 9:00 AM) Weight 69.85 kg (11/07/22 9:00 AM) Weight Measured (lbs) 153.993 lb (11/07/22 9:00 AM) Height 154.94 cm (11/07/22 9:00 AM) Height/Length Measured (inches) 61 inch (11/07/22 9:00 AM) BSA Measured 1.73 m2 (11/07/22 9:00 AM) Body Mass Index 29.1 kg/m2 (11/07/22 9:00 AM) Social History Social History Type Response Smoking Status Smoking tobacco use: Current everyday tobacco user;Never; Number used per day: 1.5 PPD; entered on: 03/27/22 Sex Female History and physical note * Event Display: History and Physical Update Authored Date: [id number] Physician Outpatient Note * Jaimee Cerda [employer]: PERFORM Event Display: Office Clinic Note Physician Authored Date: [id number] KHOAMALLORIE :1950 Age:72 years Sex:Female Visit Date:11/07/2022 Primary Care Physician: Dilan Hernandez MD History of Present Illness Mallorie Couch has?? visit for RLS follow-up and PSG results. ?? Mallorie?? was seen by me on 08/08/2022. She has a medical history to include anxiety, GERD, pyloric stenosis, COPD, lumbosacral radiculopathy, urinary incontinence and RLS. ?? She noted symptoms of RLS (QHS and many days), mild snoring, excessive daytime sleepiness (ESS 20), nocturia??and??difficulty returning to sleep taking 23 hours most nights. She was changed from [...] arousal index 3.3/hr. EKG showed NSR. ?? She says that she is still taking the Mirapex ER 3 mg but has cut back to only once a day. She takes this around mid morning to late afternoon. She feels it sometimes makes them worse so she has to get up ans move around. She is now taking the iron regularly. ?? She says things went well the night of the study and she liked our techs. Her sleep was not much different than a typical night at home. ?? She is scheduled to see her PCP today. She was hospitalized in early September in [place] with full body involuntary movements. She had to be sedated to have a spinal tap. She says for three days she doesn't remember anything even though she was reportedly alert and talking to people. They reportedly never came up with a diagnosis despite having multiple different tests and scans. Since that time she has been feeling more short of breath on exertion but this is not persistent it comes and goes. Physical Exam Vitals & Measurements HR:??68??(Peripheral)?? BP:??116/64?? SpO2:??93%?? HT:??154.94??cm?? WT:??69.85??kg?? BMI:??29.1?? BSA:??1.73?? GENERAL: answers questions appropriately, well groomed, over weight. HEAD: normocephalic and atraumatic. EYES: non icteric LUNGS: scattered expiratory wheezes. Diminished air movement throughout. CARDIO: RRR without murmur, gallop or thrill. NEURO: alert and oriented, normal gait. PYSCH: normal mood and affect. CUTANEOUS: no overt lesions or rashes.?? Clinic Assessment/Plan 1.??Chronic obstructive lung disease??J44.9 Recent PSG did not reveal any sleep disordered breathing but there was significant hypoxemia with 420 minutes spent with sp02 less than 88%. I am ordering 02 at 2 lpm with sleep. I have requested an overnight oximetry on 2 lpm. She is made aware that the 02 is flammable and never to smoke or have an open flame near the oxygen. I also suggested she has a pulmonary consultation given her worsening CROWLEY and she is agreeable and wants to be referred to [facility]. I provided greater than 30 minutes in the care of this patient, more than half the time was spent in [id number] counseling. 2.??Restless legs??G25.81 She has symptoms of restless legs [...] they have gotten worse over time. She??was instructed that caffeine and chocolate may worsen RLS symptoms and they may be improved byexercise.??Last visit I changed her from Mirapex ER 3 mg to pramipexole 2 mg BID with the plan??I will slowly try to wean down on this. Her ferritin level on 08/15/2022 was only 23 and she was encouraged to take her iron daily which shehad not been doing. She says that she is still taking the Mirapex ER 3 mg but has cut back to only once a day. She takes this around mid morning to late afternoon. She feels it sometimes makes them worse so she has to get up ans move around. She is now taking the iron regularly. 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 She will have a three month follow-up/ CC: Neurosurgery at [facility] Problem List/Past Medical History Ongoing Anxiety disorder [...] Oral (given by mouth) Every day Unchanged diazePAM (diazePAM 2 mg oral tablet) See instructions Claustrophobia Take one tablet 1 hr prior to procedure and 1 tablet right before procedure. ?? Unchanged escitalopram (escitalopram 10 mg oral [...] (given by mouth) 3 times a day Allergies No Known Medication Allergies Social History Alcohol Current, Daily- Comments: 1 Kahlua and milk/day Electronic Cigarette/Vaping Electronic Cigarette Use: Former use, quit more than 90 days ago. 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 Home/Environment Lives with Spouse. Nutrition/Health Caffeine intake amount: rarely. Sexual Other contraceptive use: [id number]. Substance Use Never Tobacco Current everyday tobacco [...] Patient Declined Last Modified by SOWMYA MCMILLAN Insemination Worker ??06-21-2020, 11:26 influenza virus vaccine, live 04/30/2021 Recorded SARS-CoV-2 (COVID-19) mRNA-1273 vaccine 09/17/2020 Recorded SARS-CoV-2 (COVID-19) mRNA-1273 vaccine 08/21/2020 Recorded influenza, unspecified formulation 04/09/2020 Recorded Comments : influenza, high-dose, quadrivalent VIS given: 04-09-2020 VIS published date: Inactivated Influenza 01/20/2019 Administered by NOEMÍ HERNANDEZ, Insemination Worker ??04-09-2020 influenza, unspecified formulation 03/24/2019 Recorded Comments : influenza, trivalent, adjuvanted VIS given: 03-24-2019 VIS published date: Inactivated Influenza 01/20/2019 Administered by SOWMYA MCMILLAN, Insemination Worker ??03-24-2019 tetanus-diphth toxoids (Td) adult/adol 10/18/2018 Recorded [...] varicella virus vaccine Recorded Electronically Signed on 11/07/22 09:29 AM Jaimee Cerda NP Patient Care team information Care Team Personnel Name: Dilan Hernandez MD Position: Physician Member Role: Primary Care Physician Address: Address: [address] [address]- Care Team Related Persons Name: LIAM QUIGLEY Address: [address], [address] Address: [address] [phone] Name: GRACIELA COUCH Address: [address] [phone]
--- OUTSIDE RECORDS SUMMARY | 2024-07-07 20:05 | XMS_ITS | Continuity of Care Document ---
Author Organization [facility] Address [address] [place] [address] Care Team Providers Care Special Police Name Role Phone Dilan Hernandez Primary Care Physician Encounter [facility] [id number] Date(s): 03/12/22 - 03/12/22 [facility] [address] [place] [address] Encounter Diagnosis Knee pain, right(Discharge Diagnosis) - 03/12/22 Discharge Disposition: Home or Self Care Attending Physician: Prashanth Hernandez ADMIRALTY LAWYER Admitting Physician: Prashanth Hernandez NP Referring Physician: Prashanth Hernandez ADMIRALTY LAWYER Allergies, Adverse Reactions, Alerts No Known Medication [...] Inactivated Influenza 01/20/2019 Administered by NOEMÍ HERNANDEZ, Devops Consultant 04-09-2020 2Result Comment: influenza, trivalent, adjuvanted VIS given: 03-24-2019 VIS published date: Inactivated Influenza 01/20/2019 Administered by SOWMYA MCMILLAN, Devops Consultant 03-24-2019 3Result Comment: influenza, high dose seasonal Administered by: SULTANA 4Result Comment: influenza, high-dose, quadrivalent Patient Declined Last Modified by SOWMYA MCMILLAN, [facility] 06-21-2020, 11:26 Medications Albuterol (Eqv-ProAir HFA) 90 mcg/inh inhalation aerosol 2 puffs, Inhale, every 4 hr, PRN other (see comment), NEEDED Start Date: 11/11/21 Status: Ordered ferrous gluconate 324 mg (38 [...] 5 year call-back 5Sisson 6right, d/t cyst 86014 with Left salpingectomy Social History Social History Type Response Smoking Status Smoking tobacco use: Current everyday tobacco user;Never; Number used per day: 1 PPD; entered on: 11/11/21 Sex Female Patient Care team information Personnel Name: Dilan Hernandez MD Address: Address: [place] [id number]
--- OUTSIDE RECORDS SUMMARY | 2024-07-07 20:05 | XMS_ITS | Continuity of Care Document ---
Author Organization [facility] Address [address] [place] [address] Care Team Providers Care Instructional Designer Name Role Phone Dilan Hernandez Primary Care Physician Encounter [facility] Date(s): 04/03/23 - 04/03/23 [facility] [address] [place] [address] Discharge Disposition: Left Without Being Seen Allergies, Adverse Reactions, Alerts No Known Medication [...] Inactivated Influenza 01/20/2019 Administered by NOEMÍ HERNANDEZ, Ocean Export Coordinator 04-09-2020 2Result Comment: influenza, trivalent, adjuvanted VIS given: 03-24-2019 VIS published date: Inactivated Influenza 01/20/2019 Administered by SOWMYA MCMILLAN, Ocean Export Coordinator 03-24-2019 3Result Comment: influenza, high dose seasonal Administered by: SULTANA 4Result Comment: William 5Result Comment: influenza, high-dose, quadrivalent Patient Declined Last Modified by SOWMYA MCMILLAN Ocean Export Coordinator 06-21-2020, 11:26 Medications Albuterol (Eqv-ProAir HFA) [...] procedure., # 1 tab, 0 Refill(s), Pharmacy: [facility], 156, cm, 03/27/22 9:33:00 EDT, Height/Length Dosing, 68.04, kg, 03/27/22 9:33:00 EDT, Weight Dosing Start Date: 09/29/22 Status: Ordered Cipro 500 mg oral tablet 500 mg = 1 tab, Oral, every 12 hr, X 7 days, # 14 tab, 0 Refill(s), 04/09/23 12:51:00 PM CDT, Pharmacy: [facility], 152, cm, 04/02/23 10:46:00 EDT, Height/Length [...] # 90 tab, 3 Refill(s), Pharmacy: [facility], 156, cm, 03/27/22 9:33:00 EDT, [...] J44.1, # 180 mL, 3 Refill(s), Pharmacy: [facility], 155, cm, 12/04/22 20:52:00 EDT, Height/Length Dosing, 69.4, kg, 12/04/22 20:52:00 EDT, Weight Dosing Start Date: 03/05/23 Status: Ordered omeprazole 40 mg oral delayed release capsule 40 mg = 1 cap, Oral, Daily, # 90 cap, 3 Refill(s), Pharmacy: [facility], 155, cm, 12/04/22 20:52:00 [...] DAY, # 60 EA, 4 Refill(s), Pharmacy: [facility], 155, cm, 12/04/22 20:52:00 [...] Overview: Added automatically from request for surgery [id number] 2Outside Source Comment: Overview: Added automatically from request for surgery [id number] Procedures Procedure Date Related Diagnosis Body Site [...] 5 year call-back 5Sisson 6right, d/t cyst [id number] with Left salpingectomy Vital Signs Most recent to oldest [Reference Range]: 1 Temperature Temporal Artery [36-38 Deg C ] 35.2 Deg C *LOW* (04/03/23 6:00 PM) Peripheral Pulse Rate [60-100 bpm] 96 bp m (04/03/23 6:00 PM) Respiratory Rate [12-24 br/min] 18 br/mi n (04/03/23 6:00 PM) Blood Pressure [90-140/60-90 mmHg] 103/6 5mmHg (04/03/23 6:00 PM) Mean Arterial Pressure, Cuff [65-140 mmH g] 78 mmHg (10/27/23 6:00 PM) Weight Dosing 71.67 kg (04/03/23 6:11 PM) Weight Estimated 71.67 kg (04/03/23 6:00 PM) Height/Length Dosing 154.000 cm (04/03/23 6:11 PM) Height/Length Estimated 154.000 cm (04/03/23 6:00 PM) Social History Social History Type Response Smoking Status Smoking tobacco use: Current everyday tobacco user;Never; Number used per day: 1.5 PPD; entered on: 04/02/23 Sex Female History and physical note * Event Display: History and Physical Update Authored Date: Patient Care team information Care Team Personnel Name: Dilan Hernandez MD Position: Physician Member Role: Informed Provider Address: Address: [address] Care Team Related Persons Name: LIAM QUIGLEY Address: [address] [address] Address: Home [address] [place] [phone] Name: LIAM QUIGLEY Address: Home [address] [place] [phone] Name: GRACIELA COUCH Address: [address] [phone]
--- OUTSIDE RECORDS SUMMARY | 2024-07-07 20:05 | XMS_ITS | Continuity of Care Document ---
Author Organization [facility] Address [address] [place] [address] Care Team Providers Care Pump Servicer Name Role Phone Dilan Hernandez Primary Care Physician [phone] Encounter [facility] Date(s): 06/13/24 - 06/13/[address] [address] Discharge Disposition: Home or Self Care Attending Physician: Dilan Hernandez MD Admitting Physician: Dilan Hernandez MD Referring Physician: Dilan Hernandez MD Encounter Type: Outpatient Allergies, Adverse Reactions, [...] Refuses 1Result Comment: right arm,exp 12/05/2024, lot [id number] at [facility] 2Result Comment: left arm, exp 10/28/2024, lot [id number] at [facility] 3Result Comment: influenza, high-dose, quadrivalent VIS given: 04-09-2020 VIS published date: Inactivated Influenza 01/20/2019 Administered by NOEMÍ HERNANDEZ, Legal Officer 04-09-2020 4Result Comment: influenza, trivalent, adjuvanted VIS given: 03-24-2019 VIS published date: Inactivated Influenza 01/20/2019 Administered by SOWMYA MCMILLAN, Legal Officer 03-24-2019 5Result Comment: influenza, high dose seasonal Administered by: SULTANA 6Result Comment: William 7Result Comment: Moderna bivalent, 6+ months, blue cap 8Result Comment: influenza, high-dose, quadrivalent Patient Declined Last Modified by SOWMYA MCMILLAN, Legal Officer 06-21-2020, 11:26 Medications Albuterol (Eqv-ProAir HFA) 90 mcg/inh inhalation aerosol 2 puffs, Inhale, every 4 hr, # 18 g, 6 Refill(s), Pharmacy: [facility], 153.3, cm, 09/17/23 12:47:00 EDT, Height, 80.25, kg, 02/17/24 13:55:00 EDT, Weight Dosing Start Date: 02/17/24 Status: Ordered Quantity: 18.0 Unit: g Repeat number: 7 Indication: Chronic obstructive pulmonary disease, unspecified Bactrim 400 mg-80 mg oral tablet 0.5 tab, Oral, Daily, # 45 tab, 1 Refill(s), Pharmacy: [facility], 155, cm, 05/24/24 22:30:00 EST, Height, 70.95, kg, 05/24/24 22:31:00 EST, Weight Dosing Start Date: 05/27/24 Stop Date: 11/23/24 Status: Ordered Quantity: 45.0 Unit: tab Repeat number: 2 Indication: Urinary tract infection, site not specified Bactrim DS 800 mg-160 mg oral tablet 1 tab, Oral, every 12 hr, # 14 tab, 0 Refill(s), Pharmacy: [facility], 155, cm, 05/24/2422:30:00 EST, Height, 70.95, kg, 05/24/24 22:31:00 EST, Weight Dosing Start Date: 05/28/24 Stop Date: 06/04/24 Status: Ordered Quantity: 14.0 Unit: tab Repeat number: 1 Breztri Aerosphere 160 mcg-9 mcg-4.8 mcg/inh inhalation aerosol 2 puffs, Inhale, BID, rinse mouth and throat after use, # 10.7 g, 6 Refill(s), Pharmacy: [facility], 153.3, cm, 09/17/23 12:47:00 [...] 90 tab, 3 Refill(s), Pharmacy: [facility], 155, cm, 05/04/23 10:37:00 EST, Height, 81.6, kg, 07/01/23 15:10:00 EST, Weight Dosing Start Date: 07/01/23 Status: Ordered Quantity: 90.0 Unit: tab Repeat number: 4 ferrous sulfate 325 mg (65 mg elemental iron) oral delayed release tablet 325 mg = 1 tab, Oral, Daily, # 90 tab, 0 Refill(s), Pharmacy: [facility], 156, cm, 03/27/22 9:33:00 [...] WHEEZING, # 360 EA, 4 Refill(s), Pharmacy: [facility], 153.3, cm, 09/17/23 12:47:00 EDT, Height, 81.5, kg, 12/17/23 9:09:00 EDT, Weight Dosing Start Date: 12/17/23 Status: Ordered Quantity: 360.0 Unit: EA Repeat number: 5 levoFLOXacin 750 mg oral tablet 750 mg = 1 tab, Oral, every 24 hr, # 5 tab, 0 Refill(s), Pharmacy: [facility], 155, cm, 05/24/24 22:30:00 EST, Height, 70.95, kg, 05/24/24 22:31:00 EST, Weight Dosing Start Date: 05/26/24 Stop Date: 05/31/24 Status: Ordered Quantity: 5.0 Unit: tab Repeat number: 1 nicotine 21 mg/24 hr transdermal film, extended release 1 patches, Transdermal, Daily, apply to skin, # 30 patches, 1 Refill(s), Pharmacy: [facility], 153.3, cm, 09/17/23 12:47:00 EDT, Height, 74, kg, 04/25/24 14:11:00 EST, Weight Dosing Start Date: 04/25/24 Status: Ordered Quantity: 30.0 Unit: patches Repeat number: 2 Indication: Nausea nicotine 4 mg oral transmucosal gum 4 mg = 1 EA, Chewed, every 2 hr, PRN as needed for smoking cessation, # 160 EA, 1 Refill(s), Pharmacy: [facility], 153.3, cm, 09/17/23 12:47:00 EDT, Height, 74, kg, 04/25/24 14:11:00 EST, Weight Dosing Start Date: 04/25/24 Status: Ordered Quantity: 160.0 Unit: EA Repeat number: 2 Indication: Nausea omeprazole 40 mg oral delayed release capsule 40 mg = 1 cap, Oral, Daily, # 90 cap, 3 Refill(s), Pharmacy: [facility], 155, cm, 05/24/24 22:30:00 EST, Height, 70.95, kg, 05/24/24 22:31:00 EST, Weight Dosing Start Date: 05/27/24 Status: Ordered Quantity: 90.0 Unit: cap Repeat number: 4 ondansetron 8 mg oral tablet See Instructions, PRN nausea, 1 tab Oral every 6 hours as needed for nausea, # 56 tab, 1 Refill(s),Pharmacy: [facility], 153.3, cm, 09/17/23 12:47:00 EDT, [...] week, # 9 mL, 3 Refill(s), Pharmacy: [facility], 153.3, cm, 09/17/23 12:47:00 EDT, Height, 80.25, kg, 02/17/24 13:55:00 EDT, Weight Dosing Start Date: 03/23/24 Status: Ordered Quantity: 9.0 Unit: mL Repeat number: 4 Indication: Type 2 diabetes mellitus without complications potassium bicarbonate 20 mEq oral tablet, effervescent 20 mEq = 1 tab, Oral, BID, dissolve in water or juice, # 60 tab, 1 Refill(s), Pharmacy: [id number], 153.3, cm, 09/17/23 12:47:00 EDT, Height, 80.25, kg, 02/17/24 13:55:00 EDT, Weight Dosing Start Date: 02/17/24 Status: Ordered Quantity: 60.0 Unit: tab Repeat number: 2 pramipexole 1 mg oral tablet See Instructions, Take 1 tablets by mouth QAM and two tablets QPM, # 90 tab, 6 Refill(s), Pharmacy:[id number], 153.3, cm, 09/17/23 12:47:00 EDT, Height, 80.25, [...] Daily, # 60 tab, 1 Refill(s), Pharmacy: [facility], 153.3, cm, 09/17/23 12:47:00 EDT, Height, 74, kg, 04/25/24 14:11:00 EST, Weight Dosing Start Date: 05/17/24 Status: Ordered Quantity: 60.0 Unit: tab Repeat number: 2 Vitamin C 500 mg oral tablet 500 mg = 1 tab, Oral, Daily, # 90 tab, 0 Refill(s), Pharmacy: [facility], 156, cm, 03/27/22 9:33:00 EDT, Height/Length Dosing, 68.04, kg, 03/27/22 9:33:00 EDT, Weight Dosing Start Date: 08/15/22 Status: Ordered Quantity: 90.0 Unit: tab Repeat number: 1 Problem List Condition Confirmation [...] Overview: Added automatically from request for surgery [id number] 2Outside Source Comment: Overview: Added automatically from request for surgery [id number] Procedures Procedure Date Related Diagnosis Body Site Status Vaginal total hysterectomy, A&P repair, uterosacral vag-vault suspension, prolapse 1 04/20/21 Completed Laparoscopic bypass gastroje junostomy 2 02/29/20 Completed EGD - Esophagogastroduodenoscopy 3 08/08/19 Completed Colonoscopy 4 11/5/19 Completed Pyloroplasty 5 03/22/10 Completed Right-Oophorectomy 6 [...] Left salpingectomy Results Laboratory List Name Date Drug Screen Urine 06/13/24 Urinalysis Microscopic 06/13/24 Most recent to oldest [Reference Range]: 1 U Amph Scrn [Negative] Negative 1 (06/13/24 11:31 AM) UA WBC [0-3] 0-3 (06/13/24 11:31 AM) U Benzodia Scrn [Negative] Negative (06/13/24 11:31 AM) UA RBC [0-2] 0-2 (06/13/24 11:31 AM) UA Bacteria None Seen /HPF (06/13/24 11:31 AM) U Cocaine Scrn [Negative] Negative (06/13/24 11:31 AM) UA Mucous None Seen /HPF (06/13/24 11:31 AM) U Martha Scrn [Negative] Negative (06/13/24 11:31 AM) UA Squam Epithelial [None Seen] Few *ABN* (06/13/24 11:31 AM) U Opiate Scrn [Negative] Negative (06/13/24 11:31 AM) U Oxy Scrn [Negative] Negative (06/13/24 11:31 AM) U PCP Scrn [Negative] Negative (06/13/24 11:31 AM) U THC Scr [Negative] Negative (06/13/24 11:31 AM) U Methadone Scr [Negative] Negative (06/13/24 11:31 AM) UA Culture Ind?. Not Applicable (06/13/24 11:31 AM) U Buprenorph Scr [Negative] Negative (06/13/24 11:31 AM) U mAMP Scr [Negative] Negative (06/13/24 11:31 AM) U TCA Scr [Negative] Negative (06/13/24 11:31 AM) 1Interpretive Data: These are unconfirmed screening results, to be used only for medical (i.e. treatment) purposes. These screening results must not be used for non-medical purposes (e.g. employment or legal testing). New method started 12/12/10 Test Name Reference Range (Cut-off) THC Neg (50 ng/mL) PCP Neg (25 ng/mL) CYNTHIA Neg (150 ng/mL) MET Neg (500 ng/mL OPI Neg (100 ng/mL) AMP Neg (500 ng/mL BZO Neg (150 ng/mL) TCA Neg (300 ng/mL) MTD Neg (200 ng/mL) BAR Neg (200 ng/mL) OXY Neg (100 ng/mL) PPX Neg (300 ng/mL) BUP Neg (10 ng/mL) Social History Social History Type Response Smoking Status Smoking tobacco use: Current everyday tobacco user;Never; Number used per day: 1.5 PPD; entered on: 06/15/23 Sex Female Sex Representation Female (finding) History and physical note * Event Display: History and Physical Update Authored Date: Patient Care team information Care Team Personnel Name: Dilan Hernandez MD Position: Physician Member Role: Informed Provider Address: [address] Telecom: Care Team Related Persons Name: LIAM QUIGLEY Name: GRACIELA COUCH Insurance Providers Guarantor name: AUBREE COUCH Health Plan Information #: 1 Payer: [employer] PPO Member Number: [id number] Policy Number: NA Group Number: NA Health Plan Information #: 2 Payer: [employer] PPO Member Number: [id number] Policy Number: NA Group Number: NA
--- OUTSIDE RECORDS SUMMARY | 2024-07-07 20:05 | XMS_ITS | Continuity of Care Document ---
Author Organization [facility] Address [address] [place] [address] Care Team Providers Care Round Kiln Drawer Name Role Phone Dilan Hernandez Primary Care Physician [phone] Encounter [facility] [id number] Date(s): 01/07/24 - 01/07/[address] [address] Discharge Disposition: Home or Self Care Attending Physician: Diaen Flor PA-C Admitting Physician: Diane Flor PA-C Referring Physician: Diane Flor PA-C Allergies, Adverse Reactions, Alerts No Known Medication [...] 09/17/20 R ecorded SARS-CoV-2 (COVID-19) mRNA-1273 vaccine 3/16/21 R ecorded tetanus-diphth toxoids (Td) adult/adol 10/18/18 [...] Inactivated Influenza 01/20/2019 Administered by NOEMÍ HERNANDEZ, Inhalation Therapy Aides Teacher 04-09-2020 2Result Comment: influenza, trivalent, adjuvanted VIS given: 03-24-2019 VIS published date: Inactivated Influenza 01/20/2019 Administered by SOWMYA MCMILLAN, Inhalation Therapy Aides Teacher 03-24-2019 3Result Comment: influenza, high dose seasonal Administered by: SULTANA 4Result Comment: William 5Result Comment: Moderna bivalent, 6+ months, blue cap 6Result Comment: influenza, high-dose, quadrivalent Patient Declined Last Modified by SOWMYA MCMILLAN, Inhalation Therapy Aides Teacher 06-21-2020, 11:26 Medications Albuterol (Eqv-ProAir HFA) 90 mcg/inh inhalation aerosol 2 puffs, Inhale, every 4 hr, # 8.5 g, 6 Refill(s), Pharmacy: [facility], 155, cm, 05/04/23 10:37:00 EST, Height, 81.6, kg, 07/01/23 15:10:00 EST, Weight Dosing Start Date: 07/01/23 Status: Ordered Ativan 0.5 mg oral tablet See Instructions, Take one tablet 30-60 min prior to procedure. DO NOT DRIVE TO AND FROM APPT., # 1tab, 0 Refill(s), Pharmacy: [facility], 153.3, cm, 09/17/23 [...] DAILY, # 90 tab, 3 Refill(s), Pharmacy: [facility], 155, cm, 05/04/23 10:37:00 EST, Height, 81.6, kg, 07/01/23 15:10:00 EST, Weight Dosing Start Date: 07/01/23 Status: Ordered ferrous sulfate 325 mg (65 mg elemental iron) oral delayed release tablet 325 mg = 1 tab, Oral, Daily, # 90 tab, 0 Refill(s), Pharmacy: [facility], 156, cm, 03/27/22 [...] WHEEZING, # 360 EA, 4 Refill(s), Pharmacy: [facility], 153.3, cm, 09/17/23 12:47:00 EDT, Height, 81.5, kg, 12/17/23 9:09:00 EDT, Weight Dosing Start Date: 12/17/23 Status: Ordered omeprazole 40 mg oral delayed release capsule 40 mg = 1 cap, Oral, Daily, # 90 cap, 3 Refill(s), Pharmacy: [facility] [address], 155, cm, 12/04/22 20:52:00 EDT, Height/Length Dosing, 69.4, kg, 12/04/22 20:52:00 EDT, Weight Dosing Start Date: 01/29/23 Status: Ordered ondansetron 8 mg oral tablet See Instructions, PRN nausea, 1 tab Oral every 6 hours as needed for nausea, # 56 tab, 0 Refill(s),Pharmacy: [facility] [address], 153.3, cm, 09/17/23 12:47:00 EDT, Height, 81.65, kg, 09/17/23 12:54:00 EDT, Weight Dosing Start Date: 10/14/23 Status: Ordered Oxygen Therapy Supply, See instructions, # 1 EA, 0 Refill(s) Start Date: 11/19/22 Status: Ordered pramipexole 1 mg oral tablet See Instructions, Take 2 tablets by mouth twice daily, # 120 tab, 6 Refill(s), Pharmacy: [facility] [address], 155, cm, 05/04/23 10:37:00 EST, Height, 78.97, kg, 05/14/23 10:34:00 EST, Weight Dosing Start Date: 05/29/23 Status: Ordered predniSONE 10 mg oral tablet See Instructions, 9-1-1-1-9-6-3-3-2-2-1-1, # 42 tab, 0 Refill(s), Pharmacy: [id number], 153.3, cm, 09/17/23 12:47:00 EDT, Height, 81.5, kg, 12/17/23 9:09:00 EDT, Weight Dosing Start Date: 12/17/23 Status: Ordered Tessalon Perles 100 mg oral capsule 200 mg = 2 cap, Oral, TID, PRN as needed for cough, X 5 days, # 30 cap, 1 Refill(s), 01/13/24 9:31:00AM CDT, Pharmacy: [facility], 153.3, cm, 09/17/23 12:47:00 EDT, Height, 81.5, kg, 12/17/23 9:09:00 EDT, Weight Dosing Start Date: 01/03/24 Stop Date: 01/13/24 Status: Ordered torsemide 10 mg oral tablet 10 mg = 1 tab, Oral, Daily, # 30 tab, 0 Refill(s), Pharmacy: [facility], 153.3, cm, 09/17/23 12:47:00 EDT, Height, 81.65, kg, 09/17/23 12:54:00 EDT, Weight Dosing Start Date: 09/17/23 Status: Ordered traMADol 50 mg oral tablet 100 mg = 2 tab, Oral, every 8 hr, PRN as needed for pain, # 168 tab, 0 Refill(s), Pharmacy: [facility] [address], 154, cm, 08/21/23 11:26:00 EDT, Height, 82.7, kg, 08/27/23 8:05:00 EDT, Weight Dosing Start Date: 08/31/23 Status: Ordered Vitamin C 500 mg oral tablet 500 mg = 1 tab, Oral, Daily, # 90 tab, 0 Refill(s), Pharmacy: [facility] [address], 156, cm, 03/27/22 9:33:00 EDT, Height/Length Dosing, 68.04, kg, 03/27/22 9:33:00 EDT, Weight Dosing Start Date: 08/15/22 Status: Ordered Wegovy (0.25 mg dose) subcutaneous solution 0.25 mg =, Subcutaneous, every week, in the abdomen, thigh, or upper arm, # 2 mL, 0 Refill(s), Pharmacy: [facility] 4156, 153.3, cm, 09/17/23 12:47:00 EDT, Height, [...] Overview: Added automatically from request for surgery [id number] 2Outside Source Comment: Overview: Added automatically from request for surgery [id number] Procedures Procedure Date Related Diagnosis Body Site [...] 5 year call-back 5Sisson 6right, d/t cyst [id number] with Left salpingectomy Results Orders for Microbiology Reports Name Date Throat Culture 01/07/24 Microbiology Reports TEST:Throat Culture STATUS:Order in Progress BODY SITE: SOURCE:Throat COLLECTED DATE/TIME:01/07/24 3:30 PM PRELIMINARY REPORT Normal Linda at 24 hours Social History Social History Type Response Smoking Status Smoking tobacco use: Current everyday tobacco user;Never; Number used per day: 1.5 PPD; entered on: 06/15/23 Sex Female History and physical note * Event Display: History and Physical Update Authored Date: [id number] Patient Care team information Care Team Personnel Name: Dilan Hernandez MD Position: Physician Member Role: Informed Provider Address: Address: [address] Care Team Related Persons Name: LIAM QUIGLEY Name: GRACIELA COUCH Address: Home [address] [place] [phone]
--- OUTSIDE RECORDS SUMMARY | 2024-07-07 20:05 | XMS_ITS | Continuity of Care Document ---
Author Organization [facility] Address [address] [place] [address] Care Team Providers Care Economic Analyst Name Role Phone Dilan Hernandez Primary Care Physician Encounter [facility] [id number] Date(s): 08/21/23 - 08/21/23 [facility] [address] [place] [address] Encounter Diagnosis COPD exacerbation(Discharge Diagnosis) - 08/21/23 Discharge Disposition: Home or Self Care Attending Physician: Sabiha Hugo MD Admitting Physician: Sabiha Hugo MD Allergies, Adverse Reactions, Alerts No Known Medication Allergies Assessment and Plan Extracted from: Title:Clinical Document Author:Cheryl Patel te:08/21/23 Diagnosis: 1. COPD exacerbat ion Comment: Diagnosis: SOB - Shortness of breath Comment: Extracted from: Title:ED Provider Note Author:Martin Chan MD Date:08/21/23 Assessment/Plan 1.??COPD exacerbation??J44.1 Ordered: doxycycline hyclate 100 mg oral capsule, 100 mg = 1 cap, Oral, BID, X 7 days, # 14 cap, 0 Refill(s), 08/28/23 15:07:00 EDT, Pharmacy: [facility], 154, cm, 08/21/23 11:26:00 EDT, Height, 81.51, kg, 07/23/23 10:33:00 EST, Weight Dosing ipratropium-albuterol 0.5 mg-2.5 mg/3 mL inhalation solution, 3 mL, Nebulized Inhalation, QID, # 60 EA, 0 Refill(s), 09/01/23 15:08:00 EDT, Pharmacy: [facility], 154, cm, 08/21/23 11:26:00 EDT, Height, 81.51, kg, 07/23/23 10:33:00 EST, Weight Dosing predniSONE 20 mg oral tablet, 40 mg = 2 tab, Oral, Daily, X 5 days, # 10 tab, 0 Refill(s), 08/26/23 15:08:00 EDT, Pharmacy: [facility], 154, cm, 08/21/23 11:26:00 EDT, Height, 81.51, kg, 07/23/23 10:33:00 EST, Weight Dosing Discharge Patient, 08/21/23 15:07:00 EDT, Home Independently, Constant Indicator ED Visit Follow Up [facility], Orders for future visit, 08/21/23 15:09:00 EDT 1 week follow-up for dyspnea, COPD, COPD exacerbation ?? Patient Education Chronic Obstructive Pulmonary Disease Exacerbation Follow Up With When Contact Information Dilan Hernandez MD Within [address] [address]- ?? Additional Instructions: Future Appointments Future [...] Inactivated Influenza 01/20/2019 Administered by NOEMÍ HERNANDEZ, Lens Hardener 04-09-2020 2Result Comment: influenza, trivalent, adjuvanted VIS given: 03-24-2019 VIS published date: Inactivated Influenza 01/20/2019 Administered by SOWMYA MCMILLAN, Lens Hardener 03-24-2019 3Result Comment: influenza, high dose seasonal Administered by: SULTANA 4Result Comment: William 5Result Comment: Moderna bivalent, 6+ months, blue cap 6Result Comment: influenza, high-dose, quadrivalent Patient Declined Last Modified by SOWMYA MCMILLAN, Lens Hardener 06-21-2020, 11:26 Medications Albuterol (Eqv-ProAir HFA) 90 mcg/inh inhalation aerosol 2 puffs, Inhale, every 4 hr, # 8.5 g, 6 Refill(s), Pharmacy: [facility], 155, cm, 05/04/23 10:37:00 EST, Height, 81.6, kg, 07/01/23 15:10:00 EST, Weight Dosing Start Date: 07/01/23 Status: Ordered amoxicillin 500 mg oral capsule 500 mg = 1 cap, Oral, TID, # 21 cap, 0 Refill(s), Pharmacy: [facility], 155, cm, 05/04/23 10:37:00 EST, Height, 81.51, kg, 07/23/23 10:33:00 EST, Weight Dosing Start Date: 07/23/23 Stop Date: 07/30/23 Status: Ordered apixaban 5 mg oral tablet 5 mg = 1 tab, Oral, BID, # 60 tab, 3 Refill(s), Pharmacy: [facility], 155, cm, 05/04/23 10:37:00 EST, [...] 0 Refill(s), 08/28/23 2:07:00 PM CDT, Pharmacy: [facility], 154, cm, 08/21/23 11:26:00 EDT, Height, 81.51, kg, 07/23/23 10:33:00 EST, Weight Dosing Start Date: 08/21/23 Stop Date: 08/28/23 Status: Ordered escitalopram 10 mg oral tablet 10 mg = 1 tab, Oral, Daily, TAKE 1 TABLET BY MOUTH ONCE DAILY, # 90 tab, 3 Refill(s), Pharmacy: [facility], 155, cm, 05/04/23 10:37:00 EST, Height, 81.6, kg, 07/01/23 15:10:00 EST, Weight Dosing Start Date: 07/01/23 Status: Ordered ferrous sulfate 325 mg (65 mg elemental iron) oral delayed release tablet 325 mg = 1 tab, Oral, Daily, # 90 tab, 0 Refill(s), Pharmacy: [facility], 156, cm, 03/27/22 9:33:00 EDT, [...] WHEEZING, # 90 mL, 4 Refill(s), Pharmacy: [place] [address], 155, cm, 05/04/23 10:37:00 EST, Height, 81.51, kg, 07/23/23 10:33:00 EST, Weight Dosing Start Date: 08/03/23 Status: Ordered ipratropium-albuterol 0.5 mg-2.5 mg/3 mL inhalation solution 3 mL, Nebulized Inhalation, QID, # 60 EA, 0 Refill(s), 09/01/23 2:08:00 PM CDT, Pharmacy: [place] [address], 154, cm, 08/21/23 11:26:00 EDT, Height, 81.51, kg, 07/23/23 10:33:00 EST, Weight Dosing Start Date: 08/21/23 Stop Date: 09/01/23 Status: Ordered omeprazole 40 mg oral delayed release capsule 40 mg = 1 cap, Oral, Daily, # 90 cap, 3 Refill(s), Pharmacy: [facility], 155, cm, 12/04/22 20:52:00 EDT, Height/Length Dosing, 69.4, kg, 12/04/22 20:52:00 EDT, Weight Dosing Start Date: 01/29/23 Status: Ordered Oxygen Therapy Supply, See instructions, # 1 EA, 0 Refill(s) Start Date: 11/19/22 Status: Ordered pramipexole 1 mg oral tablet See Instructions, Take 2 tablets by mouth twice daily, # 120 tab, 6 Refill(s), Pharmacy: [place] [id number], 155, cm, 05/04/23 10:37:00 EST, Height, 78.97, kg, 05/14/23 10:34:00 EST, Weight Dosing Start Date: 05/29/23 Status: Ordered predniSONE 20 mg oral tablet 40 mg = 2 tab, Oral, Daily, X 5 days, # 10 tab, 0 Refill(s), 08/26/23 2:08:00 PM CDT, Pharmacy: [facility], 154, cm, 08/21/23 11:26:00 EDT, Height, 81.51, kg, 07/23/23 10:33:00 EST, Weight Dosing Start Date: 08/21/23 Stop Date: 08/26/23 Status: Ordered traMADol 50 mg oral tablet 50 mg = 1 tab, Oral, every 4 hr, PRN as needed for pain, # 28 tab, 0 Refill(s), Pharmacy: [facility], 155, cm, 05/04/23 10:37:00 EST, Height, 81.6, kg, 07/01/23 15:10:00 EST, Weight Dosing Start Date: 07/13/23 Status: Ordered Trelegy Ellipta 100 mcg-62.5 mcg-25 mcg/inh inhalation powder See Instructions, INHALE 1 PUFF ONCE DAILY AT THE SAME TIME EACH DAY, # 60 EA, 4 Refill(s), Pharmacy: [facility], 155, cm, 12/04/22 20:52:00 EDT, Height/Length Dosing, 69.4, kg, 12/04/22 20:52:00 EDT, Weight Dosing Start Date: 03/17/23 Status: Ordered Vitamin C 500 mg oral tablet 500 mg = 1 tab, Oral, Daily, # 90 tab, 0 Refill(s), Pharmacy: [facility], 156, cm, 03/27/22 [...] Overview: Added automatically from request for surgery [id number] 2Outside Source Comment: Overview: Added automatically from request for surgery [id number] Procedures Procedure Date Related Diagnosis Body Site [...] 5 year call-back 5Sisson 6right, d/t cyst [id number] with Left salpingectomy Results Laboratory List Name Date Blood Gas Venous 08/21/23 NT- Pro BNP 08/21/23 Troponin-I 08/21/23 CBC w/ Diff 08/21/23 Comprehensive Metabolic Panel (CMP) 08/20 SARS-CoV-2 (COVID-19)/Flu/RSV (GeneXpert ) (COVID-19/Flu/RSV (GeneXpert)) 08/21/23 Urinalysis Microscopic 08/21/23 Urinalysis with Micro if Indicated and C ulture if Indicated 08/21/23 Automated Diff 08/21/23 Most recent to oldest [Reference Range]: 1 WBC [5.0-10.0 x10^3/mcL] 11.0 x10^3/mcL *HI* (08/21/23 1:18 PM) RBC [4.1-5.3 x10^6/mcL] 4.2 x10^6/mcL (08/21/23 1:18 PM) Neutro Auto [40.0-75.0 %] 66.3 % (08/21/23 1:18 PM) Lymph Auto [20.0-50.0 %] 24.4 % (08/21/23 1:18 PM) Wirt Auto [2.0-15.0 %] 5.9 % (08/21/23 1:18 PM) Basophil Auto [0.0-1.0 %] 0.5 % (08/21/23 1:18 PM) BUN [7-18 mg/dL] 13 mg/dL (08/21/23 1:18 PM) UA Color Yellow (08/21/23 12:56 PM) UA WBC [0-3] 0-3 (08/21/23 12:56 PM) Glucose Level [74-106 mg/dL] 108 mg/dL *HI* (08/21/23 1:18 PM) Potassium Level [3.5-5.1 mmol/L] 3.9 mmo l/L (08/21/23 1:18 PM) MCV [80.0-96.0 fL] 90.0 fL (08/21/23 1:18 PM) UA Urobilinogen Normal (08/21/23 12:56 PM) UA Bili [Negative] Negative (08/21/23 12:56 PM) CO2 Total Venous 38 mmol/L *NA* (08/21/23 1:22 PM) UA Ketones Negative (08/21/23 12:56 PM) HCO3 Venous [22-30 mmol/L] 28 mmol/L (08/21/23 1:22 PM) AST [15-37 unit/L] 18 unit/L (08/21/23 1:18 PM) ALT [14-59 unit/L] 26 unit/L (08/21/23 1:18 PM) MCHC [31.0-35.0 g/dL] 33.5 g/dL (08/21/23 1:18 PM) Troponin-I [0.0-51.4 pg/mL] <5.0 pg/mL (08/21/23 1:22 PM) Sodium Level [136-145 mmol/L] 135 mmol/L *LOW* (08/21/23 1:18 PM) UA RBC [0-2] 3-5 (08/21/23 12:56 PM) UA Leuk Est Negative (08/21/23 12:56 PM) UA Nitrite Negative (08/21/23 12:56 PM) UA Glucose [Negative] Negative (08/21/23 12:56 PM) Hct [37.0-47.0 %] 37.6 % (08/21/23 1:18 PM) UA Bacteria Rare /HPF (08/21/23 12:56 PM) Calcium Level [8.5-10.1 mg/dL] 9.1 mg/dL (08/21/23 1:18 PM) Albumin Level [3.4-5.0 g/dL] 3.5 g/dL (08/21/23 1:18 PM) Protein Total [6.4-8.2 g/dL] 7.2 g/dL (08/21/23 1:18 PM) UA Protein Negative (08/21/23 12:56 PM) MCH [26.0-32.0 pg] 30.1 pg (08/21/23 1:18 PM) Neutro Absolute 7.3 x10^3/mcL *NA* (08/21/23 1:18 PM) Bilirubin Total [0.2-1.0 mg/dL] 0.2 mg/d L (08/21/23 1:18 PM) Hgb [12.0-16.0 g/dL] 12.6 g/dL (08/21/23 1:18 PM) Alk Phos [46-146 unit/L] 111 unit/L (08/21/23 1:18 PM) UA Blood Trace *ABN* (08/21/23 12:56 PM) pCO2 Dick [33-47 mmHg] 47 mmHg (08/21/23 1:22 PM) UA Mucous Rare /HPF *ABN* (08/21/23 12:56 PM) UA Spec Grav 1.020 *NA* (08/21/23 12:56 PM) Platelets [130-450 x10^3/mcL] 372 x10^3/ mcL (08/21/23 1:18 PM) CO2 [21-32 mmol/L] 27 mmol/L (08/21/23 1:18 PM) UA Squam Epithelial [None Seen] Few *ABN* (08/21/23 12:56 PM) UA pH 6.0 *NA* (08/21/23 12:56 PM) pH Dick [7.32-7.43 pH unit(s)] 7.38 pH un it(s) (08/21/23 1:22 PM) eGFR Non-AA [>=60] 74 (08/21/23 1:18 PM) eGFR AA [>=60] 74 (08/21/23 1:18 PM) Base Excess Venous 1.9 mmol/L *NA* (08/21/23 1:22 PM) UA Appear Clear (08/21/23 12:56 PM) NT-proBNP [0-125 pg/mL] 83 pg/mL (08/21/23 1:22 PM) Chloride Level [98-107 mmol/L] 100 mmol/ L (08/21/23 1:18 PM) RDW-CV [11.5-14.5 %] 13.3 % (08/21/23 1:18 PM) Imm Gran Auto [0.0-0.9 %] 0.7 % (08/21/23 1:18 PM) NRBC Auto 0.0 % *NA* (08/21/23 1:18 PM) UA Culture Ind?. Not Indicated (08/21/23 12:56 PM) Creatinine Level [0.55-1.02 mg/dL] 0.84 mg/dL (08/21/23 1:18 PM) Employed in healthcare? Unknown *NA* (08/21/23 12:56 PM) Symptomatic as defined by CDC? Unknown *NA* (08/21/23 12:56 PM) Hospitalized due to COVID-19? Unknown *NA* (08/21/23 12:56 PM) In ICU? Unknown *NA* (08/21/23 12:56 PM) Group care resident? Unknown *NA* (08/21/23 12:56 PM) status? Unknown *NA* (08/21/23 12:56 PM) SARS-CoV-2(Covid19)PCR(GXpert COVFLURSV) [Negative] Negative (08/21/23 12:56 PM) Flu A ([facility]Xpert COVFLURSV) [Negative] Nega tive (08/21/23 12:56 PM) RSV (GXpert COVFLURSV) [Negative] Negati ve (08/21/23 12:56 PM) Flu B (GXpert COVFLURSV) [Negative] Nega tive (08/21/23 12:56 PM) Eos, Auto [1.0-6.0 %] 2.2 % (08/21/23 1:18 PM) Vital Signs Most recent to oldest [Reference Range]: 1 2 3 Temperature Temporal Artery [36-38 Deg C] 36.4 Deg C (08/21/23 11:25 AM) Heart Rate Monitored [60-100 bpm] 82 bpm (08/21/23 2:38 PM) 78 bpm (08/21/23 1:20 PM) 76 bpm (08/21/23 11:25 AM) Respiratory Rate [12-24 br/min] 20 br/min (08/21/23 2:38 PM) 22 br/min (08/21/23 1:20 PM) 24 br/min (08/21/23 11:25 AM) Blood Pressure [90-140/60-90 mmHg] 124/69mmHg (08/21/23 2:38 PM) 124/72mmHg (08/21/23 1:20 PM) 124/64mmHg (08/21/23 11:25 AM) Mean Arterial Pressure, Cuff [65-140 mmHg] 87 mmHg (08/21/23 2:38 PM) 89 mmHg (08/21/23 1:20 PM) 84 mmHg (08/21/23 11:25 AM) Weight Estimated 81 kg (08/21/23 11:25 AM) Height 154 cm (08/21/23 11:25 AM) Social History Social History Type Response Smoking Status Smoking tobacco use: Current everyday tobacco user;Never; Number used per day: 1.5 PPD; entered on: 06/15/23 Sex Female Hospital Discharge Instructions Patient Education 08/21/2023 14:10:21 Chronic Obstructive Pulmonary Disease Exacerbation Chronic Obstructive [...] these instructions at home: Medicines ??? Take [id number] and prescription medicines only as told by [...] and water are not available, use hand public records officer. This may help prevent you from getting [...] Reviewed: 04/02/2021 Elsevier Patient Education ?? 2022 [employer] Follow Up Care 08/21/2023 11:25:09 With:Dilan Hernandez MD Address: [place] [id number]- When:1 week Physician Emergency department Note * Martin Chan MD: PERFORM Event Display: ED Note Physician Authored Date: [id number] AUBREE COUCH :1950 Age:73 years Sex:Female Visit Date:08/21/2023 Primary Care Physician: Dilan Hernandez MD Basic Information Time Seen: Martin Chan MD / 08/21/2023 12:18 Chief Complaint hx of copd. ??sob x 2-3 weeks. ??c/o cold symptoms. ??productive cough, nasal drainage used inhalers and nebs ??this morning gets temporary relief History Of Present Illness: 73-year-old female past medical history COPD, chronic pain,??restless legs, reflux presents with??shortness of breath. ??Has been gradually worsening over the last 1 to 2 weeks along with sputum production and a cough. ??She is here with??a friend and she states that she has been a bit more confused recently and her overall energy reserves are on the lower side. ??She has been treated??for a blood clot recently and has been on Eliquis for 3 1 send compliant. ??No new leg swelling above her baseline leg swelling,??no chest pain,??no recent congestion or fevers??or abdominal pain or vomiting. Review of Systems: Dyspnea Physical Exam Vitals & Measurements T:??36.4?C ??(Temporal Artery)?? HR:??82??(Monitored)?? RR:??20?? BP:??124/69?? SpO2:??96%?? HT:??154??cm?? WT:??81??kg??(Estimated)?? Pain Score:??0?? O2 Therapy:??Room air?? General: Alert and oriented, well nourished,?No??acute distress Eye: PERRL, EOMI,?Normal?conjunctiva HENT: Normocephalic Lungs: Clear to auscultation and percussion,?Non-labored?? respiration Heart:?Normal? rate,?Regular??rhythm Abdomen: Soft, non-tender, non-distended Psychiatric: Cooperative, appropriate mood and affect Medical Decision Makin-year-old female medical history as above presents with dyspnea. ??36.4, 124/64, 76, 24, 96% on room air. ??Clear to auscultation bilaterally no acute respiratory distress.?? Her EKG shows a sinus rhythm rate 71 normal axis and intervals no ST segment elevations or depressions.?? No leukocytosis.?? Other labs unremarkable including troponin and BNP.?? UA unremarkable,??this was checked based off of??patient request as she states she has frequent UTIs and gets sick from them quite readily.?? Flu COVID RSV negative. ??Chest x-ray unremarkable.?? She declined any DuoNebs here in the ED. ??She was given Solu- Medrol.?? Overall clinical presentation is mostly consistent with COPD exacerbation with dyspnea and sputum production. ??She was given DuoNeb refills for home, doxycycline, and prednisone.?? 1 week follow-up with primary care. ??Discharged home condition return precautions ED. Procedure No Qualifying Data Assessment/Plan 1.??COPD exacerbation??J44.1 Ordered: doxycycline hyclate 100 mg oral capsule, 100 mg = 1 cap, Oral, BID, X 7 days, # 14 cap, 0 Refill(s), 08/28/23 15:07:00 EDT, Pharmacy: [facility], 154, cm, 08/21/23 11:26:00 EDT, Height, 81.51, kg, 07/23/23 10:33:00 EST, Weight Dosing ipratropium-albuterol 0.5 mg-2.5 mg/3 mL inhalation solution, 3 mL, Nebulized Inhalation, QID, # 60EA, 0 Refill(s), 09/01/23 15:08:00 EDT, Pharmacy: [facility], 154, cm, 08/21/23 11:26:00EDT, Height, 81.51, kg, 07/23/23 10:33:00 EST, Weight Dosing predniSONE 20 mg oral tablet, 40 mg = 2 tab, Oral, Daily, X 5 days, # 10 tab, 0 Refill(s), 08/25/2414:08:00 EDT, Pharmacy: [facility], 154, cm, 08/21/23 11:26:00 EDT, Height, 81.51, kg, 07/23/23 10:33:00 EST, Weight Dosing Discharge Patient, 08/21/23 15:07:00 EDT, Home Independently, Constant Indicator ED Visit Follow Up [place] [facility], Orders for future visit, 08/21/23 15:09:00 EDT 1 week follow-up for dyspnea, COPD, COPD exacerbation ?? Patient Education Chronic Obstructive Pulmonary Disease Exacerbation Follow Up With When Contact Information Dilan Hernandez MD Within 1 week [place] [id number]- Additional Instructions: Medication Reconciliation New Prescription doxycycline (doxycycline hyclate 100 mg oral capsule)1 Capsules Oral (given by mouth) 2 times a dayfor 7 Days. Refills: 0. ?? predniSONE (predniSONE 20 mg oral tablet)2 tab Oral (given by mouth) every day for 5 Days. Refills:0. ?? Changed ipratropium-albuterol (ipratropium-albuterol 0.5 mg-2.5 mg/3 mL inhalation solution)3 Milliliters Nebulized inhalation (inhale using nebulizer) 4 times a day. Refills: 0. ?? ipratropium-albuterol (ipratropium-albuterol 0.5 mg-2.5 mg/3 mL inhalation solution)USE 1 AMPULE INNEBULIZER EVERY 4 HOURS NEEDED FOR SHORTNESS OF BREATH FOR WHEEZING. Refills: 4. ?? Unchanged albuterol (Albuterol (Eqv-ProAir HFA) 90 mcg/inh inhalation aerosol)2 Puffs Inhale (breathe in) every 4 hours. Refills: 6. ?? amoxicillin (amoxicillin 500 mg oral capsule)1 Capsules Oral (given by mouth) 3 times a day for 7 Days. Refills: 0. ?? apixaban (apixaban 5 mg oral tablet)1 tab Oral (given by mouth) 2 times a day. Refills: 3. ?? ascorbic acid (Vitamin C 500 mg oral tablet)1 tab Oral (given by mouth) every day. Refills: 0. ?? cephalexin (cephalexin 250 mg oral capsule)1 Capsules Oral (given by mouth) every [...] SAME TIME EACH DAY. Refills: 4. ?? [id number] Milligrams Oral (given by mouth) as needed as needed for pain. ?? omeprazole (omeprazole 40 mg oral delayed release capsule)1 Capsules Oral (given by mouth) every day. Refills: 3. ?? pramipexole (pramipexole 1 mg oral tablet)Take 2 tablets by mouth twice daily. Refills: 6. ?? traMADol (traMADol 50 mg oral tablet)1 tab Oral (given by mouth) every 4 [...] w/ left salpingectomy???Tubal ligation Medication Administration Given methylPREDNISolone, 125 mg, IV Push Allergies No Known Medication Allergies Social History Alcohol Current, Daily- Comments: 1 Kahlua and milk/day Electronic Cigarette/Vaping Electronic Cigarette Use: Former use, quit more than 90 days ago. 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 Home/Environment Lives with Spouse. Nutrition/Health Caffeine intake amount: rarely. Sexual Other contraceptive use: [id number]. Substance Use Never Tobacco Current everyday tobacco user Tobacco Use:. 1.5 PPD per day. Never Smokeless Tobacco use:. Family History CA - Cancer of colon: Mother. CA - Cancer of kidney: Sister. Diabetes mellitus: Sister. Heart disease: Mother. Lung cancer: Father. Family Member(s): ?? FATHER, at age: Unknown. Cause of : Family Member(s): ?? MOTHER, at age: Unknown. Cause of : Referral Orders ED Visit Follow Up [facility], Orders for future visit, 08/21/23 15:09:00 EDT 1 week follow-up for dyspnea, COPD, COPD exacerbation Lab Results CBC and Differential?? LATEST RESULTS?? HISTORICAL RESULTS?? WBC?? 08/21/23 13:18?? 11.0 ??High?? 07/24/23?? 7.1?? RBC?? 08/21/23 13:18?? 4.2?? 07/24/23?? 4.2?? Hgb?? 08/21/23 13:18?? 12.6?? 07/24/23?? 12.8?? Hct?? 08/21/23 13:18?? 37.6?? 07/24/23?? 38.3?? MCV?? 08/21/23 13:18?? 90.0?? 07/24/23?? 91.0?? MCH?? 08/21/23 13:18?? 30.1?? 07/24/23?? 30.4?? MCHC?? 08/21/23 13:18?? 33.5?? 07/24/23?? 33.4?? RDW-CV?? 08/21/23 13:18?? 13.3?? 07/24/23?? 13.7?? Platelets?? 08/21/23 13:18?? 372?? 07/24/23?? 324?? Neutro Auto?? 08/21/23 13:18?? 66.3?? 07/24/23?? 55.3?? Lymph Auto?? 08/21/23 13:18?? 24.4?? 07/24/23?? 31.5?? Wirt Auto?? 08/21/23 13:18?? 5.9?? 07/24/23?? 9.1?? Eos, Auto?? 08/21/23 13:18?? 2.2?? 07/24/23?? 3.2?? Basophil Auto?? 08/21/23 13:18?? 0.5?? 07/24/23?? 0.6?? Imm Gran Auto?? 08/21/23 13:18?? 0.7?? 07/24/23?? 0.3?? NRBC Auto?? 08/21/23 13:18?? 0.0? Neutro Absolute?? 08/21/23 13:18?? 7.3?? 07/24/23?? 4.0? Blood Gases?? LATEST RESULTS?? pH Dick?? 08/21/23 13:22?? 7.38?? pCO2 Dick?? 08/21/23 13:22?? 47?? HCO3 Venous?? 08/21/23 13:22?? 28?? CO2 Total Venous?? 08/21/23 13:22?? 38?? Base Excess Venous?? 08/21/23 13:22?? 1.9? Routine Chemistry?? LATEST RESULTS?? HISTORICAL RESULTS?? Sodium Level?? 08/21/23 13:18?? 135 ??Low?? 07/24/23?? 136?? Potassium Level?? 08/21/23 13:18?? 3.9?? 07/24/23?? 3.8?? Chloride Level?? 08/21/23 13:18?? 100?? 07/24/23?? 99?? CO2?? 08/21/23 13:18?? 27?? 07/24/23?? 32?? Alk Phos?? 08/21/23 13:18?? 111?? 07/24/23?? 110?? AST?? 08/21/23 13:18?? 18?? 07/24/23?? 17?? ALT?? 08/21/23 13:18?? 26?? 07/24/23?? 24?? BUN?? 08/21/23 13:18?? 13?? 07/24/23?? 14?? Glucose Level?? 08/21/23 13:18?? 108 ??High?? 07/24/23?? 119 ??High?? Creatinine Level?? 08/21/23 13:18?? 0.84?? 07/24/23?? 0.80?? eGFR AA?? 08/21/23 13:18?? 74?? 07/24/23?? 79?? eGFR Non-AA?? 08/21/23 13:18?? 74?? 07/24/23?? 79?? Calcium Level?? 08/21/23 13:18?? 9.1?? 07/24/23?? 9.2?? Protein Total?? 08/21/23 13:18?? 7.2?? 07/24/23?? 7.2?? Albumin Level?? 08/21/23 13:18?? 3.5?? 07/24/23?? 3.5?? Bilirubin Total?? 08/21/23 13:18?? 0.2?? 07/24/23?? 0.2? Cardiac Isoenzymes?? LATEST RESULTS?? HISTORICAL RESULTS?? Troponin-I?? 08/21/23 13:22?? <5.0?? 06/15/23?? 5.1?? NT-proBNP?? 08/21/23 13:22?? 83?? 06/15/23?? 90? UA Macroscopic?? LATEST RESULTS?? HISTORICAL RESULTS?? UA Color?? 08/21/23 12:56?? Yellow?? 04/02/23?? Yellow?? UA Appear?? 08/21/23 12:56?? Clear?? 04/02/23?? Cloudy Abnormal?? UA Glucose?? 08/21/23 12:56?? Negative?? 04/02/23?? Negative?? UA Bili?? 08/21/23 12:56?? Negative?? 04/02/23?? Negative?? UA Ketones?? 08/21/23 12:56?? Negative?? 04/02/23?? Negative?? UA Spec Grav?? 08/21/23 12:56?? 1.020?? 04/02/23?? 1.020?? UA Blood?? 08/21/23 12:56?? Trace Abnormal?? 04/02/23?? 2+ Abnormal?? UA pH?? 08/21/23 12:56?? 6.0?? 04/02/23?? 5.5?? UA Protein?? 08/21/23 12:56?? Negative?? 04/02/23?? 2+ Abnormal?? UA Urobilinogen?? 08/21/23 12:56?? Normal?? 04/02/23?? Normal?? UA Nitrite?? 08/21/23 12:56?? Negative?? 04/02/23?? Positive Abnormal?? UA Leuk Est?? 08/21/23 12:56?? Negative?? 04/02/23?? 1+ Abnormal?? UA Culture Ind?.?? 08/21/23 12:56?? Not Indicated?? 04/02/23?? Indicated? UA Microscopic?? LATEST RESULTS?? HISTORICAL RESULTS?? UA WBC?? 08/21/23 12:56?? 0-3?? 04/02/23?? 10-25 Abnormal?? UA RBC?? 08/21/23 12:56?? 3-5?? 04/02/23?? 3-5?? UA Squam Epithelial?? 08/21/23 12:56?? Few Abnormal?? 04/02/23?? Few Abnormal?? UA Mucous?? 08/21/23 12:56?? Rare Abnormal?? 04/02/23?? None Seen?? UA Bacteria?? 08/21/23 12:56?? Rare?? 04/02/23?? Moderate Abnormal? Infectious Disease?? LATEST RESULTS?? HISTORICAL RESULTS?? 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 08/21/23 12:56?? Unknown?? 06/15/23?? Unknown?? Symptomatic as defined by CDC??? 08/21/23 12:56?? Unknown?? 06/15/23?? Unknown?? Hospitalized due to COVID-19??? 08/21/23 12:56?? Unknown?? 06/15/23?? Unknown?? In ICU??? 08/21/23 12:56?? Unknown?? 06/15/23?? Unknown?? Group care resident??? 08/21/23 12:56?? Unknown?? 06/15/23?? Unknown?? status??? 08/21/23 12:56?? Unknown?? 06/15/23?? Unknown?? SARS-CoV-2(Covid19)PCR([facility])?? 08/21/23 12:56?? Negative?? 06/15/23?? Negative?? Flu A ([facility])?? 08/21/23 12:56?? Negative?? 06/15/23?? Negative?? Flu B ([facility])?? 08/21/23 12:56?? Negative?? 06/15/23?? Negative?? RSV ([facility])?? 08/21/23 12:56?? Negative?? 06/15/23?? Negative? Electronically Signed on 08/21/23 03:10 PM Martin Chan MD Emergency department Discharge instructions * Martin Chan MD: PERFORM Event Display: ED Discharge Information Authored Date: [id number] AUBREE COUCH :1950 Age:73 years Sex:Female Visit Date:08/21/2023 Primary Care Physician: Dilan Hernandez MD Discharge Instructions We would like to thank you for allowing us to assist you with your healthcare needs. The following includes patient education materials and information regarding your injury/illness. Diagnosis from Today's Visit COPD exacerbation Discharge Vitals Temperature??(Temporal Artery) 97.5 ??F (36.4 ??C) Heart Rate??(Monitored) 82 Respiratory Rate?? 20 Blood Pressure?? 124/69?? SpO2?? 96% Height?? 60.63 in (154 cm) Weight??(Estimated) 178.61 lb (81 kg) Allergies No Known Medication Allergies What to Do Next Instructions from Your Care Team You are seen in the emergency department today for shortness of breath. ??Your cardiac testing and EKG??were normal. ??Your labs are reassuring. ??Your chest x-ray was normal.?? You may be experiencing a COPD exacerbation.?? Please come back to the ER with any worsening symptoms, otherwise you can take your prescription for??DuoNebs, prednisone, and doxycycline and??pick them up at [facility]. ??Youcan follow-up with your primary care physician within 1 week. You Need to Schedule the Following Appointments Follow Up with??Dilan Hernandez MD When:??Within 1 week Where: [facility] [address] [address] Upcoming Scheduled Appointments Thursday 10:30 AM EDT ?? With: Jaimee Cerda PAPER CONE MAKER Where: [facility] [address] [place] [address] Status: Confirmed 2023 12:40 PM EDT ?? With: Dilan Hernandez MD Where: [facility] [address] [address] Status: Confirmed You were treated [...] COPD exacerbation Duration: 7 Days Pickup at [place] [address] New predniSONE (predniSONE 20 mg oral tablet) 2 tab Oral (given by mouth) Every day COPD exacerbation Duration: 5 Days Pickup at [place] [address] Changed ipratropium-albuterol (ipratropium-albuterol 0.5 mg-2.5 mg/ 3 mL inhalation solution) 3 Milliliters Nebulized inhalation (inhale using nebulizer) 4 times a day COPD exacerbation Pickup at [place] [address] Changed ipratropium-albuterol (ipratropium-albuterol 0.5 mg-2.5 mg/ 3 mL inhalation solution) See instructions USE 1 AMPULE IN NEBULIZER EVERY 4 HOURS NEEDED FOR SHORTNESS OF BREATH FOR WHEEZING ?? Unchanged albuterol (Albuterol (Eqv-ProAir HFA) 90 mcg/ inh inhalation aerosol) 2 Puffs Inhale (breathe in) Every 4 hours COPD mixed type Unchanged amoxicillin (amoxicillin 500 mg oral capsule) 1 Capsules Oral (given by mouth) 3 times a day Chronic obstructive lung disease Chronic pain disorder Abdominal swelling Duration: 7 Days Unchanged apixaban (apixaban 5 mg oral tablet) 1 tab Oral (given by mouth) 2 times a day Right pulmonary embolus Unchanged ascorbic acid (Vitamin C 500 mg oral tablet) 1 tab Oral (given by mouth) Every day Unchanged cephalexin (cephalexin 250 mg oral capsule) 1 Capsules Oral (given [...] THE SAME TIME EACH DAY ?? Unchanged ibuprofen 200 Milligrams Oral (given by mouth) As needed for as needed for pain Unchanged omeprazole (omeprazole 40 mg oral delayed release capsule) 1 Capsules Oral (given by mouth) Every day Unchanged pramipexole (pramipexole 1 mg oral tablet) See instructions Take 2 tablets by mouth twice daily ?? Unchanged traMADol (traMADol 50 mg oral tablet) 1 tab Oral (given by mouth) Every 4 hours as needed for as needed for pain Pharmacy Information [facility]: [address] [place] [address] [phone] Education Materials Chronic Obstructive Pulmonary Disease Exacerbation [...] these instructions at home: Medicines ? Take awrx-ibl-ywywsys and prescription medicines only as told by [...] and water are not available, use hand public records officer. This may help prevent you from getting [...] Reviewed: 04/02/2021 Elsevier Patient Education ?? 2022 [employer] Tests Performed Medications and Immunizations Administered Given methylPREDNISolone, 125 mg, IV Push Lab Test Name Test Result Date/Time WBC 11.0 x10^3/mcL 08/21/2023 13:18 EDT RBC 4.2 x10^6/mcL 08/21/2023 13:18 EDT Hgb 12.6 g/dL 08/21/2023 13:18 EDT Hct 37.6 % 08/21/2023 13:18 EDT MCV 90.0 fL 08/21/2023 13:18 EDT MCH 30.1 pg 08/21/2023 13:18 EDT MCHC 33.5 g/dL 08/21/2023 13:18 EDT RDW-CV 13.3 % 08/21/2023 13:18 EDT Platelets 372 x10^3/mcL 08/21/2023 13:18 EDT Neutro Auto 66.3 % 08/21/2023 13:18 EDT Lymph Auto 24.4 % 08/21/2023 13:18 EDT Wirt Auto 5.9 % 08/21/2023 13:18 EDT Eos, Auto 2.2 % 08/21/2023 13:18 EDT Basophil Auto 0.5 % 08/21/2023 13:18 EDT Imm Gran Auto 0.7 % 08/21/2023 13:18 EDT NRBC Auto 0.0 % 08/21/2023 13:18 EDT Neutro Absolute 7.3 x10^3/mcL 08/21/2023 13:18 EDT pH Dick 7.38 pH unit(s) 08/21/2023 13:22 EDT pCO2 Dick 47 mmHg 08/21/2023 13:22 EDT HCO3 Venous 28 mmol/L 08/21/2023 13:22 EDT CO2 Total Venous 38 mmol/L 08/21/2023 13:22 EDT Base Excess Venous 1.9 mmol/L 08/21/2023 13:22 EDT Sodium Level 135 mmol/L 08/21/2023 13:18 EDT Potassium Level 3.9 mmol/L 08/21/2023 13:18 EDT Chloride Level 100 mmol/L 08/21/2023 13:18 EDT CO2 27 mmol/L 08/21/2023 13:18 EDT Alk Phos 111 unit/L 08/21/2023 13:18 EDT AST 18 unit/L 08/21/2023 13:18 EDT ALT 26 unit/L 08/21/2023 13:18 EDT BUN 13 mg/dL 08/21/2023 13:18 EDT Glucose Level 108 mg/dL 08/21/2023 13:18 EDT Creatinine Level 0.84 mg/dL 08/21/2023 13:18 EDT eGFR AA 74 08/21/2023 13:18 EDT eGFR Non-AA 74 08/21/2023 13:18 EDT Calcium Level 9.1 mg/dL 08/21/2023 13:18 EDT Protein Total 7.2 g/dL 08/21/2023 13:18 EDT Albumin Level 3.5 g/dL 08/21/2023 13:18 EDT Bilirubin Total 0.2 mg/dL 08/21/2023 13:18 EDT Troponin-I <5.0 pg/mL 08/21/2023 13:22 EDT NT-proBNP 83 pg/mL 08/21/2023 13:22 EDT UA Color YELLOW. 08/21/2023 12:56 EDT UA Appear CLEAR. 08/21/2023 12:56 EDT UA Glucose NEGATIVE 08/21/2023 12:56 EDT UA Bili NEGATIVE 08/21/2023 12:56 EDT UA Ketones NEGATIVE 08/21/2023 12:56 EDT UA Spec Grav 1.020 08/21/2023 12:56 EDT UA Blood TRACE. 08/21/2023 12:56 EDT UA pH 6.0 08/21/2023 12:56 EDT UA Protein NEGATIVE 08/21/2023 12:56 EDT UA Urobilinogen 0.2 Uro 08/21/2023 12:56 EDT UA Nitrite NEGATIVE 08/21/2023 12:56 EDT UA Leuk Est NEGATIVE 08/21/2023 12:56 EDT UA Culture Ind?. Not Indicated 08/21/2023 12:56 EDT UA WBC 0-3 08/21/2023 12:56 EDT UA RBC 3-5 08/21/2023 12:56 EDT UA Squam Epithelial Few 08/21/2023 12:56 EDT UA Mucous Rare 08/21/2023 12:56 EDT UA Bacteria Rare 08/21/2023 12:56 EDT Employed in healthcare? Unknown 08/21/2023 12:56 EDT Symptomatic as defined by CDC? Unknown 08/21/2023 12:56 EDT Hospitalized due to COVID-19? Unknown 08/21/2023 12:56 EDT In ICU? Unknown 08/21/2023 12:56 EDT Group care resident? Unknown 08/21/2023 12:56 EDT status? Unknown 08/21/2023 12:56 EDT SARS-CoV-2(Covid19)PCR(GXpert COVFLURSV) NEGATIVE 08/21/2023 12:56 EDT Flu A (GXpert COVFLURSV) NEGATIVE 08/21/2023 12:56 EDT Flu B (GXpert COVFLURSV) Neg-GeneXPert 08/21/2023 12:56 EDT RSV (GXpert COVFLURSV) Neg-GeneXPert 08/21/2023 12:56 EDT Patient/Lacquer Spray Booth Operator Signature Patient Name:AUBREE COUCH I have received this information and my questions have been answered. Patient/Lacquer Spray Booth Operator Name: Patient/Lacquer Spray Booth Operator Signature: Relationship to Patient: Witness Name/Signature: Date: Electronically Signed on: 08/21/2023 15:10 EDTSigned by:[facility] History and physical note * Event Display: History and Physical Update Authored Date: [id number] Discharge summary * Cheryl Patel: PERFORM Event Display: Discharge Note Authored Date: [id number] * Cheryl Patel: PERFORM Event Display: Discharge Note Authored Date: [id number] Diagnosis: 1. COPD exacerbation Comment: Diagnosis: SOB - Shortness of breath Comment: Electronically Signed on 08/21/23 03:22 PM Cheryl Patel Patient Care team information Care Team Personnel Name: Dilan Hernandez MD Position: Physician Member Role: Informed Provider Address: Address: [address] [address] Care Team Related Persons Name: LIAM QUIGLEY Address: [address], [address] Address: Home [address] [place] [address], [place] [id number] Address: Mailing [address] [place] [phone] Name: GRACIELA COUCH Address: Home [address] [place] [phone]
--- OUTSIDE RECORDS SUMMARY | 2024-07-07 20:05 | XMS_ITS | Continuity of Care Document ---
Author Organization [facility] Address [address] [place] [address] Care Team Providers Care Surveyor Chain Helper Name Role Phone Dilan Hernandez Primary Care Physician Encounter [facility] [id number] Date(s): 05/04/23 - 05/04/23 [facility] [address] [place] [address] Discharge Disposition: Home or Self Care Attending Physician: Jalen Luong MD Admitting Physician: Jalen Luong MD Referring Physician: Jalen Luong MD Allergies, Adverse Reactions, Alerts No Known Medication Allergies Assessment and Plan Future Appointments Diagnostic Tests Pending * Urine Culture 05/04/23 Future Scheduled Tests Laboratory* Basic Metabolic Panel [...] Inactivated Influenza 01/20/2019 Administered by NOEMÍ HERNANDEZ, Diversity Specialist 04-09-2020 2Result Comment: influenza, trivalent, adjuvanted VIS given: 03-24-2019 VIS published date: Inactivated Influenza 01/20/2019 Administered by SOWMYA MCMILLAN, Diversity Specialist 03-24-2019 3Result Comment: influenza, high dose seasonal Administered by: SULTANA 4Result Comment: William 5Result Comment: influenza, high-dose, quadrivalent Patient Declined Last Modified by SOWMYA MCMILLAN Diversity Specialist 06-21-2020, 11:26 Medications Albuterol (Eqv-ProAir HFA) 90 mcg/inh inhalation aerosol 2 puffs, Inhale, every 4 hr, # 8.5 g, 6 Refill(s), Pharmacy: [facility], 156, cm, 03/27/22 9:33:00 EDT, Height/Length Dosing, 68.04, kg, 03/27/22 9:33:00 EDT, Weight Dosing Start Date: 09/29/22 Status: Ordered cephalexin 250 mg oral capsule 250 mg = 1 cap, Oral, Daily, # 90 cap, 1 Refill(s), Pharmacy: [place] [address], 155, cm, 05/04/23 10:37:00 EST, Height, 78.74, kg, 05/04/23 10:38:00 EST, Weight Dosing Start Date: 05/04/23 Stop Date: 10/31/23 Status: Ordered clotrimazole 1% topical cream 1 juanjo, Topical, BID, # 24 g, 0 Refill(s), Pharmacy: [place] [address], 154, cm, 04/03/23 18:11:00 EDT, Height/Length Dosing, 76.6, kg, 04/15/23 11:00:00 EST, Weight Dosing Start Date: 04/15/23 Status: Ordered COPD J44.1 COPD J44.1, Please include tubing and mouthpiece, Supply, See instructions, # 1 EA, 0 Refill(s) Start Date: 12/15/22 Status: Ordered escitalopram 10 mg oral tablet 10 mg = 1 tab, Oral, Daily, TAKE 1 TABLET BY MOUTH ONCE DAILY, # 90 tab, 3 Refill(s), Pharmacy: [place] [address], 156, cm, 03/27/22 9:33:00 EDT, Height/Length Dosing, 68.04, kg, 03/27/22 9:33:00EDT, Weight Dosing Start Date: 05/12/22 Status: Ordered ferrous sulfate 325 mg (65 mg elemental iron) oral delayed release tablet 325 mg = 1 tab, Oral, Daily, # 90 tab, 0 Refill(s), Pharmacy: [place] [address], 156, cm, 03/27/22 9:33:00 EDT, Height/Length Dosing, 68.04, kg, 03/27/22 9:33:00 EDT, Weight Dosing Start Date: 08/15/22 Status: Ordered ipratropium-albuterol 0.5 mg-2.5 mg/3 mL inhalation solution See Instructions, USE 1 AMPULE IN NEBULIZER EVERY 4 HOURS NEEDED FOR SHORTNESS OF BREATH OR WHEEZING, # 90 mL, 4 Refill(s), Pharmacy: [place] [id number], 154, cm, 04/03/23 18:11:00 EDT, Height/Length Dosing, 76.6, kg, 04/15/23 11:00:00 EST, Weight Dosing Start Date: 04/15/23 Status: Ordered omeprazole 40 mg oral delayed release capsule 40 mg = 1 cap, Oral, Daily, # 90 cap, 3 Refill(s), Pharmacy: [facility], 155, cm, 12/04/22 20:52:00 [...] sites, # 1 EA, 0 Refill(s), Pharmacy: [place] [address], 154, cm, 04/03/23 18:11:00 EDT, Height/Length Dosing, 76.35, kg, 04/23/23 14:48:00 EST, Weight Dosing Start Date: 04/27/23 Status: Ordered pramipexole 1 mg oral tablet See Instructions, 0 Refill(s) Start Date: 04/15/23 Status: Ordered pramipexole 1 mg oral tablet See Instructions, Take 2 tablets by mouth twice daily, # 120 tab, 0 Refill(s), Pharmacy: [facility], 154, cm, 04/03/23 18:11:00 EDT, Height/Length Dosing, 76.35, kg, 04/23/23 14:48:00 EST,Weight Dosing Start Date: 04/27/23 Status: Ordered Trelegy Ellipta 100 mcg-62.5 mcg-25 mcg/inh inhalation powder See Instructions, INHALE 1 PUFF ONCE DAILY AT THE SAME TIME EACH DAY, # 60 EA, 4 Refill(s), Pharmacy: [facility], 155, cm, 12/04/22 20:52:00 EDT, Height/Length Dosing, 69.4, kg, 12/04/22 20:52:00 EDT, Weight Dosing Start Date: 03/17/23 Status: Ordered triamcinolone 0.1% topical cream 1 juanjo, Topical, BID, # 60 g, 0 Refill(s), Pharmacy: [facility], 154, cm, 04/03/23 18:11:00 EDT, Height/Length Dosing, 76.6, kg, 04/15/23 11:00:00 EST, Weight Dosing Start Date: 04/15/23 Stop Date: 04/22/23 Status: Ordered Vitamin C 500 mg oral tablet 500 mg = 1 tab, Oral, Daily, # 90 tab, 0 Refill(s), Pharmacy: [facility], 156, cm, 03/27/22 9:33:00 [...] Overview: Added automatically from request for surgery [id number] 2Outside Source Comment: Overview: Added automatically from request for surgery [id number] Procedures Procedure Date Related Diagnosis Body Site [...] 5 year call-back 5Sisson 6right, d/t cyst 2515702/1983 with Left salpingectomy Social History Social History Type Response Smoking Status Smoking tobacco use: Current everyday tobacco user;Never; Number used per day: 1.5 PPD; entered on: 04/02/23 Sex Female History and physical note * Event Display: History and Physical Update Authored Date: [id number] Patient Care team information Care Team Personnel Name: Dilan Hernandez MD Position: Physician Member Role: Informed Provider Address: Address: [address] Care Team Related Persons Name: LIAM QUIGLEY Address: Alternate [address] [place] [id number] Address: Home [address] [place] [phone] Name: LIAM QUIGLEY Address: Home [address] [place] [phone] Name: GRACIELA COUCH Address: [address] [phone]
--- OUTSIDE RECORDS SUMMARY | 2024-07-07 20:05 | XMS_ITS | Continuity of Care Document ---
Author Organization [facility] Address [address] [place] [address] Care Team Providers Care Routing Clerk Name Role Phone Dilan Hernandez Primary Care Physician [phone] [facility]counter [facility] Date(s): 06/19/23 - 06/19/[address] [facility] [address] [place] [address] Discharge Disposition: Home or Self Care Attending [...] Inactivated Influenza 01/20/2019 Administered by NOEMÍ HERNANDEZ, Sales Hunter 04-09-2020 2Result Comment: influenza, trivalent, adjuvanted VIS given: 03-24-2019 VIS published date: Inactivated Influenza 01/20/2019 Administered by SOWMYA MCMILLAN, Sales Hunter 03-24-2019 3Result Comment: influenza, high dose seasonal Administered by: SULTANA 4Result Comment: William 5Result Comment: influenza, high-dose, quadrivalent Patient Declined Last Modified by SOWMYA MCMILLAN Sales Hunter 06-21-2020, 11:26 Medications Albuterol (Eqv-ProAir HFA) 90 mcg/inh inhalation aerosol 2 puffs, Inhale, every 4 hr, # 8.5 g, 6 Refill(s), Pharmacy: [facility], 156, cm, 03/27/22 9:33:00 EDT, Height/Length Dosing, 68.04, kg, 03/27/22 9:33:00 EDT, Weight Dosing Start Date: 09/29/22 Status: Ordered apixaban 5 mg oral tablet 5 mg = 1 tab, Oral, BID, # 60 tab, 3 Refill(s), Pharmacy: [facility], 155, cm, 05/04/23 [...] 90 tab, 3 Refill(s), Pharmacy: [place] [address], 156, cm, 03/27/22 9:33:00 EDT, Height/Length Dosing, 68.04, kg, 03/27/22 9:33:00EDT, Weight Dosing Start Date: 05/12/22 Status: Ordered ferrous sulfate 325 mg (65 mg elemental iron) oral delayed release tablet 325 mg = 1 tab, Oral, Daily, # 90 tab, 0 Refill(s), Pharmacy: [facility], 156, cm, 03/27/22 9:33:00 EDT, Height/Length Dosing, 68.04, kg, 03/27/22 9:33:00 EDT, Weight Dosing Start Date: 08/15/22 Status: Ordered ipratropium-albuterol 0.5 mg-2.5 mg/3 mL inhalation solution See Instructions, USE 1 AMPULE IN NEBULIZER EVERY 4 HOURS NEEDED FOR SHORTNESS OF BREATH OR WHEEZING, # 90 mL, 4 Refill(s), Pharmacy: [facility], 154, cm, 04/03/23 18:11:00 EDT, Height/Length Dosing, 76.6, kg, 04/15/23 11:00:00 EST, Weight Dosing Start Date: 04/15/23 Status: Ordered Lyrica 25 mg oral capsule 25 mg = 1 cap, Oral, TID, # 90 cap, 3 Refill(s), Pharmacy: [facility], 155, cm, 05/04/2310:37:00 EST, Height, 78.97, kg, 05/14/23 10:34:00 EST, Weight Dosing Start Date: 05/14/23 Status: Ordered omeprazole 40 mg oral delayed release capsule 40 mg = 1 cap, Oral, Daily, # 90 cap, 3 Refill(s), Pharmacy: [facility], 155, cm, 12/04/22 [...] sites, # 1 EA, 0 Refill(s), Pharmacy: [place] [address], 154, cm, 04/03/23 18:11:00 EDT, Height/Length Dosing, 76.35, kg, 04/23/23 14:48:00 EST, Weight Dosing Start Date: 04/27/23 Status: Ordered pramipexole 1 mg oral tablet See Instructions, Take 2 tablets by mouth twice daily, # 120 tab, 6 Refill(s), Pharmacy: [facility], 155, cm, 05/04/23 10:37:00 EST, Height, 78.97, kg, 05/14/23 10:34:00 EST, Weight Dosing Start Date: 05/29/23 Status: Ordered pramipexole 1 mg oral tablet See Instructions, 0 Refill(s) Start Date: 04/15/23 Status: Ordered traMADol 50 mg oral tablet 50 mg = 1 tab, Oral, every 4 hr, PRN as needed for pain, # 28 tab, 0 Refill(s), Pharmacy: [facility], 155, cm, 05/04/23 10:37:00 EST, Height, 80, kg, 06/18/23 15:33:00 EST, Weight Dosing Start Date: 06/18/23 Status: Ordered Trelegy Ellipta 100 mcg-62.5 mcg-25 mcg/inh inhalation powder See Instructions, INHALE 1 PUFF ONCE DAILY AT THE SAME TIME EACH DAY, # 60 EA, 4 Refill(s), Pharmacy: [facility], 155, cm, 12/04/22 20:52:00 EDT, Height/Length Dosing, 69.4, kg, 12/04/22 20:52:00 EDT, Weight Dosing Start Date: 03/17/23 Status: Ordered Vitamin C 500 mg oral tablet 500 mg = 1 tab, Oral, Daily, # 90 tab, 0 Refill(s), Pharmacy: [facility], 156, cm, 03/27/22 [...] Overview: Added automatically from request for surgery [id number] 2Outside Source Comment: Overview: Added automatically from request for surgery [id number] Procedures Procedure Date Related Diagnosis Body Site [...] 5 year call-back 5Sisson 6right, d/t cyst [id number]/1983 with Left salpingectomy Results Laboratory List Name Date Drug Screen Urine (Drug Screen Urine w/ Opiate Conf) 06/19/23 Most recent to oldest [Reference Range]: 1 U Amph Scrn [Negative] Negative 1 (06/19/23 10:46 AM) U Benzodia Scrn [Negative] Negative (06/19/23 10:46 AM) U Cocaine Scrn [Negative] Negative (06/19/23 10:46 AM) U Martha Scrn [Negative] Negative (06/19/23 10:46 AM) U Opiate Scrn [Negative] Negative (06/19/23 10:46 AM) U Oxy Scrn [Negative] Negative (06/19/23 10:46 AM) U PCP Scrn [Negative] Negative (06/19/23 10:46 AM) U THC Scr [Negative] Negative (06/19/23 10:46 AM) U Methadone Scr [Negative] Negative (06/19/23 10:46 AM) U Buprenorph Scr [Negative] Negative (06/19/23 10:46 AM) U mAMP Scr [Negative] Negative (06/19/23 10:46 AM) U TCA Scr [Negative] Negative (06/19/23 10:46 AM) 1Interpretive Data: These are unconfirmed screening [...] Display: History and Physical Update Authored Date: [id number] Patient Care team information Care Team Personnel Name: Dilan Hernandez MD Position: Physician Member Role: Informed Provider Address: Address: [address] Care Team Related Persons Name: LIAM QUIGLEY Address: [address] [address] Address: Home [address] [place] [phone] Address: Mailing [address] [place] [phone] Name: GRACIELA COUCH Address: Home [address] [place] [phone]
--- OUTSIDE RECORDS SUMMARY | 2024-07-07 20:05 | XMS_ITS | Continuity of Care Document ---
Author Organization [facility] Address [address] [place] [address] Care Team Providers Care Court Bailiff Name Role Phone Dilan Hernandez Primary Care Physician Encounter [facility] Date(s): 07/01/23 - 07/01/23 [facility] [address] [place] [address] Discharge Disposition: Home Allergies, Adverse Reactions, Alerts [...] Influenza 01/20/2019 Administered by NOEMÍ HERNANDEZ, Oil Dispatcher 04-09-2020 2Result Comment: influenza, trivalent, adjuvanted VIS given: 03-24-2019 VIS published date: Inactivated Influenza 01/20/2019 Administered by SOWMYA MCMILLAN, Oil Dispatcher 03-24-2019 3Result Comment: influenza, high dose seasonal Administered by: SULTANA 4Result Comment: William 5Result Comment: influenza, high-dose, quadrivalent Patient Declined Last Modified by SOWMYA MCMILLAN, Oil Dispatcher 06-21-2020, 11:26 Medications Albuterol (Eqv-ProAir HFA) 90 mcg/inh inhalation aerosol 2 puffs, Inhale, every 4 hr, # 8.5 g, 6 Refill(s), Pharmacy: [facility], 155, cm, 05/04/23 10:37:00 EST, Height, 81.6, kg, 07/01/23 15:10:00 EST, Weight Dosing Start Date: 07/01/23 Status: Ordered apixaban 5 mg oral tablet 5 mg = 1 tab, Oral, BID, # 60 tab, 3 Refill(s), Pharmacy: [facility], 155, cm, 05/04/23 10:37:00 EST, [...] # 90 tab, 3 Refill(s), Pharmacy: [facility], 155, cm, 05/04/23 10:37:00 EST, Height, 81.6, kg, 07/01/23 15:10:00 EST, Weight Dosing Start Date: 07/01/23 Status: Ordered ferrous sulfate 325 mg (65 mg elemental iron) oral delayed release tablet 325 mg = 1 tab, Oral, Daily, # 90 tab, 0 Refill(s), Pharmacy: [facility], 156, cm, 03/27/22 9:33:00 [...] WHEEZING, # 90 mL, 4 Refill(s), Pharmacy: [facility], 154, cm, 04/03/23 18:11:00 EDT, Height/Length Dosing, 76.6, kg, 04/15/23 11:00:00 EST, Weight Dosing Start Date: 04/15/23 Status: Ordered Lyrica 25 mg oral capsule 25 mg = 1 cap, Oral, TID, # 90 cap, 3 Refill(s), Pharmacy: [facility], 155, cm, 05/04/2310:37:00 EST, Height, 78.97, kg, 05/14/23 10:34:00 EST, Weight Dosing Start Date: 05/14/23 Status: Ordered omeprazole 40 mg oral delayed release capsule 40 mg = 1 cap, Oral, Daily, # 90 cap, 3 Refill(s), Pharmacy: [facility], 155, cm, 12/04/22 20:52:00 [...] sites, # 1 EA, 0 Refill(s), Pharmacy: [place] [address], 154, cm, 04/03/23 18:11:00 EDT, Height/Length Dosing, 76.35, kg, 04/23/23 14:48:00 EST, Weight Dosing Start Date: 04/27/23 Status: Ordered pramipexole 1 mg oral tablet See Instructions, Take 2 tablets by mouth twice daily, # 120 tab, 6 Refill(s), Pharmacy: [facility], 155, cm, 05/04/23 10:37:00 EST, Height, 78.97, kg, 05/14/23 10:34:00 EST, Weight Dosing Start Date: 05/29/23 Status: Ordered pramipexole 1 mg oral tablet See Instructions, 0 Refill(s) Start Date: 04/15/23 Status: Ordered traMADol 50 mg oral tablet 50 mg = 1 tab, Oral, every 4 hr, PRN as needed for pain, # 28 tab, 0 Refill(s), Pharmacy: [place] [address], 155, cm, 05/04/23 10:37:00 EST, Height, 80, kg, 06/18/23 15:33:00 EST, Weight Dosing Start Date: 06/18/23 Status: Ordered Trelegy Ellipta 100 mcg-62.5 mcg-25 mcg/inh inhalation powder See Instructions, INHALE 1 PUFF ONCE DAILY AT THE SAME TIME EACH DAY, # 60 EA, 4 Refill(s), Pharmacy: [facility], 155, cm, 12/04/22 20:52:00 EDT, Height/Length Dosing, 69.4, kg, 12/04/22 20:52:00 EDT, Weight Dosing Start Date: 03/17/23 Status: Ordered Vitamin C 500 mg oral tablet 500 mg = 1 tab, Oral, Daily, # 90 tab, 0 Refill(s), Pharmacy: [facility], 156, cm, 03/27/22 9:33:00 EDT, [...] Overview: Added automatically from request for surgery [id number] 2Outside Source Comment: Overview: Added automatically from request for surgery [id number] Procedures Procedure Date Related Diagnosis Body Site [...] 5Sisson 6right, d/t cyst with Left salpingectomy Social History Social History Type Response Smoking Status Smoking tobacco use: Current everyday tobacco user;Never; Number used per day: 1.5 PPD; entered on: 06/15/23 Sex Female History and physical note * Event Display: History and Physical Update Authored Date: [id number] Patient Care team information Care Team Personnel Name: Dilan Hernandez MD Position: Physician Member Role: Informed Provider Address: Address: [address] Care Team Related Persons Name: LIAM QUIGLEY Address: [address] [address] Address: Home [address] [place] [phone] Address: Mailing [address] [place] [phone] Name: GRACIELA COUCH Address[address] [phone]
--- OUTSIDE RECORDS SUMMARY | 2024-07-07 20:05 | XMS_ITS | Continuity of Care Document ---
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 Estate Associate Attorney Name Role Phone Dilan Hernandez Primary Care Physician Encounter [facility] Date(s): 06/16/23 - 06/16/23 [facility] [address] [place] [address] Discharge Disposition: Home or Self Care Attending Physician: Dawson Horner MD Admitting Physician: Dawson Horner MD Referring Physician: Dawson Horner MD Allergies, Adverse Reactions, Alerts No Known [...] Inactivated Influenza 01/20/2019 Administered by NOEMÍ HERNANDEZ, Medical Billing Manager 04-09-2020 2Result Comment: influenza, trivalent, adjuvanted VIS given: 03-24-2019 VIS published date: Inactivated Influenza 01/20/2019 Administered by SOWMYA MCMILLAN, Medical Billing Manager 03-24-2019 3Result Comment: influenza, high dose seasonal Administered by: SULTANA 4Result Comment: William 5Result Comment: influenza, high-dose, quadrivalent Patient Declined Last Modified by SOWMYA MCMILLAN, Medical Billing Manager 06-21-2020, 11:26 Medications Albuterol (Eqv-ProAir HFA) 90 mcg/inh inhalation aerosol 2 puffs, Inhale, every 4 hr, # 8.5 g, 6 Refill(s), Pharmacy: [id number], 156, cm, 03/27/22 9:33:00 EDT, Height/Length Dosing, 68.04, kg, 03/27/22 9:33:00 EDT, Weight Dosing Start Date: 09/29/22 Status: Ordered apixaban 5 mg oral tablet See Instructions, Take 10mg by mouth twice daily for 7 days, then take 5mg by mouth twice daily, # 70 tab, 0 Refill(s), Pharmacy: [place] [id number], 155, cm, 05/04/23 10:37:00 EST, Height, 78.97,kg, [...] DAILY, # 90 tab, 3 Refill(s), Pharmacy: [place] [facility] [id number], 156, cm, 03/27/22 9:33:00 EDT, Height/Length Dosing, 68.04, kg, 03/27/22 9:33:00EDT, Weight Dosing Start Date: 05/12/22 Status: Ordered ferrous sulfate 325 mg (65 mg elemental iron) oral delayed release tablet 325 mg = 1 tab, Oral, Daily, # 90 tab, 0 Refill(s), Pharmacy: [place] [address], 156, cm, 03/27/22 9:33:00 EDT, Height/Length Dosing, 68.04, kg, 03/27/22 9:33:00 EDT, Weight Dosing Start Date: 08/15/22 Status: Ordered ipratropium-albuterol 0.5 mg-2.5 mg/3 mL inhalation solution See Instructions, USE 1 AMPULE IN NEBULIZER EVERY 4 HOURS NEEDED FOR SHORTNESS OF BREATH OR WHEEZING, # 90 mL, 4 Refill(s), Pharmacy: [facility], 154, cm, 04/03/23 18:11:00 EDT, Height/Length Dosing, 76.6, kg, 04/15/23 11:00:00 EST, Weight Dosing Start Date: 04/15/23 Status: Ordered Lyrica 25 mg oral capsule 25 mg = 1 cap, Oral, TID, # 90 cap, 3 Refill(s), Pharmacy: [place] [id number], 155, cm, 05/04/2310:37:00 EST, Height, 78.97, kg, 05/14/23 10:34:00 EST, Weight Dosing Start Date: 05/14/23 Status: Ordered omeprazole 40 mg oral delayed release capsule 40 mg = 1 cap, Oral, Daily, # 90 cap, 3 Refill(s), Pharmacy: [id number], 155, cm, 12/04/22 20:52:00 EDT, Height/Length Dosing, 69.4, kg, 12/04/22 20:52:00 EDT, Weight Dosing Start Date: 01/29/23 Status: Ordered Oxygen Therapy Supply, See instructions, # 1 EA, 0 Refill(s) Start Date: 11/19/22 Status: Ordered Ozempic 2 mg/3 mL (0.25 mg or 0.5 mg dose) subcutaneous solution 0.25 mg =, Subcutaneous, every week, rotate injection sites, # 1 EA, 0 Refill(s), Pharmacy: [place] [id number], 154, cm, 04/03/23 18:11:00 EDT, Height/Length Dosing, 76.35, kg, 04/23/23 14:48:00 EST, Weight Dosing Start Date: 04/27/23 Status: Ordered pramipexole 1 mg oral tablet See Instructions, Take 2 tablets by mouth twice daily, # 120 tab, 6 Refill(s), Pharmacy: [facility], 155, cm, 05/04/23 10:37:00 EST, Height, 78.97, kg, 05/14/23 10:34:00 EST, Weight Dosing Start Date: 05/29/23 Status: Ordered pramipexole 1 mg oral tablet See Instructions, 0 Refill(s) Start Date: 04/15/23 Status: Ordered Trelegy Ellipta 100 mcg-62.5 mcg-25 mcg/inh inhalation powder See Instructions, INHALE 1 PUFF ONCE DAILY AT THE SAME TIME EACH DAY, # 60 EA, 4 Refill(s), Pharmacy: [facility], 155, cm, 12/04/22 20:52:00 EDT, Height/Length Dosing, 69.4, kg, 12/04/22 20:52:00 EDT, Weight Dosing Start Date: 03/17/23 Status: Ordered Vitamin C 500 mg oral tablet 500 mg = 1 tab, Oral, Daily, # 90 tab, 0 Refill(s), Pharmacy: [id number], 156, cm, 03/27/22 [...] Overview: Added automatically from request for surgery [id number] 2Outside Source Comment: Overview: Added automatically from request for surgery [id number] Procedures Procedure Date Related Diagnosis Body Site [...] 5 year call-back 5Sisson 6right, d/t cyst [id number] with Left salpingectomy Social History Social History Type Response Smoking Status Smoking tobacco use: Current everyday tobacco user;Never; Number used per day: 1.5 PPD; entered on: 06/15/23 Sex Female History and physical note * Event Display: History and Physical Update Authored Date: [id number] Patient Care team information Care Team Personnel Name: Dilan Hernandez MD Position: Physician Member Role: Informed Provider Address: Address: [address] Care Team Related Persons Name: LIAM QUIGLEY Address: [address] [address] Address: Home [address] [place] [phone] Address: Mailing [address] [place] [phone] Name: GRACIELA COUCH Address: [address] [phone]
--- OUTSIDE RECORDS SUMMARY | 2024-07-07 20:05 | XMS_ITS | Continuity of Care Document ---
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 Name Role Phone Dilan Hernandez Primary Care Physician Encounter [facility] [id number] Date(s): 11/20/23 - 11/21/23 [facility] [address] [place] [address] Discharge Disposition: Home or Self Care Attending Physician: Jalen Quijano MD Admitting Physician: Jalen Quijano MD Allergies, Adverse Reactions, Alerts No Known [...] Inactivated Influenza 01/20/2019 Administered by NOEMÍ HERNANDEZ, Wool Batting Worker 04-09-2020 2Result Comment: influenza, trivalent, adjuvanted VIS given: 03-24-2019 VIS published date: Inactivated Influenza 01/20/2019 Administered by SOWMYA MCMILLAN, Wool Batting Worker 03-24-2019 3Result Comment: influenza, high dose seasonal Administered by: SULTANA 4Result Comment: William 5Result Comment: Moderna bivalent, 6+ months, blue cap 6Result Comment: influenza, high-dose, quadrivalent Patient Declined Last Modified by SOWMYA MCMILLAN, Wool Batting Worker 06-21-2020, 11:26 Medications Albuterol (Eqv-ProAir HFA) 90 mcg/inh inhalation aerosol 2 puffs, Inhale, every 4 hr, # 8.5 g, 6 Refill(s), Pharmacy: [facility] [id number], 155, cm, 05/04/23 10:37:00 EST, Height, 81.6, kg, 07/01/23 15:10:00 EST, Weight Dosing Start Date: 07/01/23 Status: Ordered apixaban 5 mg oral tablet 5 mg = 1 tab, Oral, BID, # 60 tab, 3 Refill(s), Pharmacy: [facility] 4156, 155, cm, 05/04/23 10:37:00 EST, Height, 81.6, kg, 07/01/23 15:10:00 EST, Weight Dosing Start Date: 07/13/23 Status: Ordered azithromycin 250 mg oral tablet 250 mg = 1 tab, Oral, Daily, X 4 days, # 4 tab, 0 Refill(s), 11/24/23 11:00:00 PM CDT, Pharmacy: [facility] 415, 153.3, cm, 09/17/23 12:47:00 EDT, Height, 81.65, kg, 09/17/23 12:54:00 EDT, Weight Dosing Start Date: 11/21/23 Stop Date: 11/25/23 Status: Ordered Breztri Aerosphere 160 mcg-9 mcg-4.8 [...] DAILY, # 90 tab, 3 Refill(s), Pharmacy: [facility] 4156, 155, cm, 05/04/23 10:37:00 EST, Height, 81.6, kg, 07/01/23 15:10:00 EST, Weight Dosing Start Date: 07/01/23 Status: Ordered ferrous sulfate 325 mg (65 mg elemental iron) oral delayed release tablet 325 mg = 1 tab, Oral, Daily, # 90 tab, 0 Refill(s), Pharmacy: [facility] 4156, 156, cm, 03/27/22 9:33:00 [...] WHEEZING, # 90 mL, 4 Refill(s), Pharmacy: [place] [id number], 155, cm, 05/04/23 10:37:00 EST, Height, 81.51, kg, 07/23/23 10:33:00 EST, Weight Dosing Start Date: 08/03/23 Status: Ordered Medrol Dosepak 4 mg oral tablet 1 packets, Oral, Daily, as directed on package labeling, # 21 tab, 0 Refill(s), Pharmacy: [place] [id number], 153.3, cm, 09/17/23 12:47:00 EDT, Height, 81.65, kg, 09/17/23 12:54:00 EDT, Weight Dosing Start Date: 09/28/23 Stop Date: 10/04/23 Status: Ordered omeprazole 40 mg oral delayed release capsule 40 mg = 1 cap, Oral, Daily, # 90 cap, 3 Refill(s), Pharmacy: [place] [id number], 155, cm, 12/04/22 20:52:00 EDT, Height/Length Dosing, 69.4, kg, 12/04/22 20:52:00 EDT, Weight Dosing Start Date: 01/29/23 Status: Ordered ondansetron 8 mg oral tablet See Instructions, PRN nausea, 1 tab Oral every 6 hours as needed for nausea, # 56 tab, 0 Refill(s),Pharmacy: [place] [id number], 153.3, cm, 09/17/23 12:47:00 EDT, Height, 81.65, kg, 09/17/23 12:54:00 EDT, Weight Dosing Start Date: 10/14/23 Status: Ordered Oxygen Therapy Supply, See instructions, # 1 EA, 0 Refill(s) Start Date: 11/19/22 Status: Ordered pramipexole 1 mg oral tablet See Instructions, Take 2 tablets by mouth twice daily, # 120 tab, 6 Refill(s), Pharmacy: [place] [id number], 155, cm, 05/04/23 10:37:00 EST, Height, 78.97, kg, 05/14/23 10:34:00 EST, Weight Dosing Start Date: 05/29/23 Status: Ordered predniSONE 10 mg oral tablet See Instruction, Oral, Daily, 6 tabs daily x3 days, 4 tabs daily x3 days, 3 tabs daily x3 days, 2 tab daily x3 days, # 45 tab, 0 Refill(s), Pharmacy: [facility]156, 153.3, cm, 09/17/23 12:47:00 EDT, Height, 81.65, kg, 09/17/23 12:54:00 EDT, Weight Dosing Start Date: 10/30/23 Status: Ordered predniSONE 20 mg oral tablet 40 mg = 2 tab, Oral, Daily, X 4 days, # 8 tab, 0 Refill(s), 11/24/23 11:00:00 PM CDT, Pharmacy: [facility], 153.3, cm, 09/17/23 12:47:00 EDT, Height, 81.65, kg, 09/17/23 12:54:00 EDT, Weight Dosing Start Date: 11/21/23 Stop Date: 11/25/23 Status: Ordered torsemide 10 mg oral tablet 10 mg = 1 tab, Oral, Daily, # 30 tab, 0 Refill(s), Pharmacy: [facility] 415, 153.3, cm, 09/17/23 12:47:00 EDT, Height, 81.65, kg, 09/17/23 12:54:00 EDT, Weight Dosing Start Date: 09/17/23 Status: Ordered traMADol 50 mg oral tablet 100 mg = 2 tab, Oral, every 8 hr, PRN as needed for pain, # 168 tab, 0 Refill(s), [facility], 154, cm, 08/21/23 11:26:00 EDT, Height, 82.7, kg, 08/27/23 8:05:00 EDT, Weight Dosing Start Date: 08/31/23 Status: Ordered Vitamin C 500 mg oral tablet 500 mg = 1 tab, Oral, Daily, # 90 tab, 0 Refill(s), Pharmacy: [facility] 4156, 156, cm, 03/27/22 9:33:00 EDT, Height/Length Dosing, 68.04, kg, 03/27/22 9:33:00 EDT, Weight Dosing Start Date: 08/15/22 Status: Ordered Wegovy (0.25 mg dose) subcutaneous solution 0.25 mg =, Subcutaneous, every week, in the abdomen, thigh, or upper arm, # 2 mL, 0 Refill(s), Pharmacy: [facility]156, 153.3, cm, 09/17/23 12:47:00 [...] Overview: Added automatically from request for surgery [id number] 2Outside Source Comment: Overview: Added automatically from request for surgery [id number] Procedures Procedure Date Related Diagnosis Body Site [...] 5 year call-back 5Sisson 6right, d/t cyst [id number] with Left salpingectomy Results Laboratory List Name Date Basic Metabolic Panel (BMP) 11/20/23 CBC w/ Diff 11/20/23 Troponin-I 11/20/23 Automated Diff 11/20/23 Most recent to oldest [Reference Range]: 1 WBC [5.0-10.0 x10^3/mcL] 11.4 x10^3/mcL *HI* (11/20/23 11:16 PM) RBC [4.1-5.3 x10^6/mcL] 4.2 x10^6/mcL (11/20/23 11:16 PM) Neutro Auto [40.0-75.0 %] 68.2 % (11/20/23 11:16 PM) Lymph Auto [20.0-50.0 %] 22.8 % (11/20/23 11:16 PM) Carter Auto [2.0-15.0 %] 5.9 % (11/20/23 11:16 PM) Basophil Auto [0.0-1.0 %] 0.4 % (11/20/23 11:16 PM) BUN [7-18 mg/dL] 18 mg/dL (11/20/23 11:16 PM) Glucose Level [74-106 mg/dL] 131 mg/dL *HI* (11/20/23 11:16 PM) Potassium Level [3.5-5.1 mmol/L] 4.2 mmo l/L (11/20/23 11:16 PM) MCV [80.0-96.0 fL] 90.6 fL (11/20/23 11:16 PM) MCHC [31.0-35.0 g/dL] 32.5 g/dL (11/20/23 11:16 PM) Troponin-I [0.0-51.4 pg/mL] 6.2 pg/mL (11/20/23 11:16 PM) Sodium Level [136-145 mmol/L] 140 mmol/L (11/20/23 11:16 PM) Hct [37.0-47.0 %] 37.8 % (11/20/23:16 PM) Calcium Level [8.5-10.1 mg/dL] 9.4 mg/dL (11/20/23 11:16 PM) MCH [26.0-32.0 pg] 29.5 pg (11/20/23:16 PM) Neutro Absolute 7.8 x10^3/mcL *NA* (11/20/23:16 PM) Hgb [12.0-16.0 g/dL] 12.3 g/dL (11/20/23:16 PM) Platelets [130-450 x10^3/mcL] 288 x10^3/ mcL (11/20/23 11:16 PM) CO2 [21-32 mmol/L] 29 mmol/L (11/20/23:16 PM) eGFR Non-AA [>=60] 82 (11/20/23 11:16 PM) eGFR AA [>=60] 82 (11/20/23 11:16 PM) Chloride Level [98-107 mmol/L] 102 mmol/ L (11/20/23:16 PM) RDW-CV [11.5-14.5 %] 14.8 % *HI* (11/20/23 11:16 PM) Imm Gran Auto [0.0-0.9 %] 0.4 % (11/20/23 11:16 PM) Creatinine Level [0.55-1.02 mg/dL] 0.77 mg/dL (11/20/23 11:16 PM) Eos, Auto [1.0-6.0 %] 2.3 % (11/20/23 11:16 PM) Vital Signs Most recent to oldest [Reference Range]: 1 2 3 Temperature Temporal Artery [36-38 Deg C] 35.8 Deg C *LOW* (11/20/23 10:36 PM) Peripheral Pulse Rate [60-100 bpm] 101 bpm *HI* (11/20/23 11:43 PM) 89 bpm (11/20/23 11:39 PM) 92 bpm (11/20/23 10:36 PM) Respiratory Rate [12-24 br/min] 22 br/min (11/20/23 11:39 PM) 26 br/min *HI* (11/20/23 10:36 PM) Blood Pressure [90-140/60-90 mmHg] 122/73mmHg (11/20/23 11:43 PM) 152/78mmHg *HI* (11/20/23 10:36 PM) Mean Arterial Pressure, Cuff [65-140 mmHg] 89 mmHg (11/20/23 11:43 PM) 103 mmHg (11/20/23 10:36 PM) Weight Estimated 75.75 kg (11/20/23 10:36 PM) Body Mass Index Estimated 31.53 kg/m2 (11/20/23 10:36 PM) Height/Length Estimated 155 cm (11/20/23 10:36 PM) Social History Social History Type Response Smoking Status Smoking tobacco use: Current everyday tobacco user;Never; Number used per day: 1.5 PPD; entered on: 06/15/23 Sex Female Physician Emergency department Note * Jalen Quijano MD: PERFORM Event Display: ED Note Physician Authored Date: [id number] AUBREE COUCH :1950 Age:73 years Sex:Female Visit Date:11/20/2023 Primary Care Physician: Dilan Hernandez MD HPI 73-year-old female with history of COPD, anxiety disorder, chronic pain, claustrophobia, nicotine dependence, obesity, and possible prior PE presents for evaluation of 2-3 days of shortness of breathrefractory to her nebulizer and inhaler. No recent fever, significant productive cough, or other discernible relevant abnormalities. Patient reports that she uses the diuretic intermittently as it interferes with her daily life. ?? M/S/F/SocHx notable for: please see HPI; remainder reviewed with patient and in chart.? ROS: Negative constitutional, eye, cardiovascular, pulmonary, GI, , MSK, skin, neurologic, psychiatric, endocrine unless noted in the HPI. ?? Exam HR 92, RR 26, BP 152/78, T 35.8??C, SaO2 90% on room air. Gen: Pleasant, non-toxic appearing, not in extremis. HEENT: NC, AT, PEERL, EOMI, trachea midline. Resp: Diffuse expiratory wheezing throughout all lung goncalves, minimal increased work of breathing. Card: RRR with no M/R/G, no crackles in lung bases, no pedal edema, no JVD appreciated.?? GI: Non-tender to palpation throughout all quadrants, no rebound or guarding. Vascular: both cans of equal size nontender to palpation bilaterally. MSK: No chest wall TTP. No visible deformities, strength and tone WNL. Skin: Normal color with no visible lesions. Neuro:??alert and oriented?3, no facial asymmetry, vision and hearing WNL. Psych: mild to moderately anxious mood and affect, otherwise appropriate.? Labs?? WBC 11.4, Hb 12.3, sodium 140, potassium 4.2, troponin 6.2? Imaging EKG: SR at 76 bpm, no VA segment depressions, no new ST segment changes, new LBBB, or T-wave changes that would suggest acute ischemia.? CXR:?? 1.??Mild left basilar scarring.?? 2.??No infiltrates or edema.?? 3.??No pleural effusion.?? 4.??Normal heart size.?? 5.??Degenerative thoracic spine ?? MDM Previous chart, nursing note, and vitals reviewed.?? A:??73-year-old female with history of COPD, anxiety disorder, chronic pain, claustrophobia, nicotine dependence, obesity, and possible prior PE presents for evaluation of 2-3 days of shortness of breath refractory to her nebulizer and inhaler. ?? DDx: COPD exacerbation, pneumonia, bronchitis, pneumothorax, anxiety, PE, CHF exacerbation, pleuraleffusion, pericardial effusion, ACS. ?? Evaluation:?? * COPD exacerbation - known history along with today's presentation (increased WOB with wheezing throughout all lung goncalves) most consistent with COPD exacerbation. * Pneumonia - as the CXR is without focal infiltrate and the patient is afebrile and without significant sputum production, doubt pneumonia. * Bronchitis - doubt given the lack of productive cough or systemic symptoms. * Pneumothorax - no evidence by CXR. * Anxiety - patient clinically without evidence of appreciable anxiety on exam. * PE - low clinical suspicion given history and alternate diagnosis, further risk stratification (e.g.) Well's not indicated. * CHF - no evidence by CXR, auscultation, or physical exam. * Pleural effusion - CXR without evidence of effusions. * Pericardial effusion - doubt pericardial effusion given an alternate diagnosis, the lack of cardiomegaly on CXR and normal heart sounds. * ACS - doubt ACS given a non-ischemic EKG and a negative troponin greater than six hours from maximal symptom onset. ?? ED Course: Given 1 DuoNeb and 10 mg dexamethasone. Patient leukocytosis, 500 mg azithromycin given an abundance of caution. ?? Disposition: discharge with PCP follow-up recommended. Patient prescribed 40 mg prednisone QD for 4days and 250 mg azithromycin QD for 4 days. ?? Impression: COPD exacerbation. Electronically Signed on 11/20/2023 23:59 EDT Jalen Quijano MD Emergency department Discharge instructions * Jalen Quijano MD: PERFORM Event Display: ED Discharge Information Authored Date: [id number] AUBREE COUCH :1950 Age:73 years Sex:Female Visit Date:11/20/2023 Primary Care Physician: Dilan Hernandez MD Discharge Instructions We would like to thank you for allowing us to assist you with your healthcare needs. The following includes patient education materials and information regarding your injury/illness. ?? You were seen at the [facility] Emergency Department for evaluation of??a COPD exacerbation.??Please read and follow all of the instructions below. ?? Please follow up with your primary care physician??within 24 to 48 hours for repeat evaluation and further care. When calling for follow-up care, please make the office aware that this follow-up is from your recent emergency room visit.? Your care today was limited to identifying and treating emergent medical problems only. Many peoplehave subtle differences in their test results that require follow up with their outpatient physician(s) to correctly determine if this represents a normal variation or concerning abnormality with respect to your specific health.??The care given to you today was limited to identifying and treating emergent medical problems - you need to request a copy of all of your medical records from today's visit and follow up with your outpatient physician(s) to review both today's visit and your overall health. If you have any new symptoms or if you are at all concerned about your health please return immediately to the emergency department. ?? Prescriptions: If you are uninsured or have financial difficulties with filling your prescription(s), you may consider using a free pharmacy discount service such as [employer] ([employer]) or [employer] ([employer]). These services allow you to search for a medication on your phone (or computer) and obtain a coupon that usually has a significant discount from the list lopez at a pharmacy. Your physician does not have a financial relationship with either of these services. You may also wish to speak with your physician to determine if lower cost prescriptions are possible. ?? COPD exacerbation.?? COPD exacerbations occur when a virus, bacteria, or pollution worsens your underlying chronic obstructive pulmonary disease. This is treated with anti- inflammatories (prednisone), bronchodilators (albuterol), and antibiotics.?Take the medications as prescribed. ?Please return to the emergency department if you develop worsening shortness of breath, fevers,chills, chest pain, or are otherwise concerned about your health. ?If you have diabetes will need to check your blood glucose more frequently because the steroidswill increase your blood sugar. ?Please read the drug information below regarding the medications were prescribed. ?? To reduce the recurrence of COPD exacerbations you should do the following: * If you are smoker, stop smoking.?? * You should also receive a yearly influenza vaccine and a pneumococcal pneumonia vaccine every 5 years. ? Azithromycin: This is an antibiotic that will help reduce the amount of bacteria in your lungs, it will also reduce the amount of inflammation in your lungs. ?? AZITHROMYCIN SIDE EFFECTS: ?Stomach upset, diarrhea/loose stools, nausea, vomiting, or abdominal pain may occur. If any of these effects persist or worsen, tell your doctor or pharmacist promptly. ?Tell your doctor right away if any of these unlikely but serious side effects occur: hearing changes (such as decreased hearing, deafness), eye problems (such as drooping eyelids, blurred vision), difficulty speaking/swallowing, muscle weakness, signs of liver problems (such as unusual tiredness, persistent nausea/vomiting, severe stomach/abdominal pain, yellowing eyes/skin, dark urine). ?Get medical help right away if any of these rare but serious side effects occur: fast/irregularheartbeat, severe dizziness, fainting. ?This medication may rarely cause a severe intestinal condition (Clostridium difficile-associated diarrhea) due to a resistant bacteria. This condition may occur during treatment or weeks to months after treatment has stopped. Do not use anti-diarrhea products or narcotic pain medications if youhave any of the following symptoms because these products may make them worse. Tell your doctor right away if you develop: persistent diarrhea, abdominal or stomach pain/cramping, blood/mucus in yourstool. ?Use of this medication for prolonged or repeated periods may result in oral thrush or a new yeast infection. Contact your doctor if you notice white patches in your mouth, a change in vaginal discharge, or other new symptoms. ?A very serious allergic reaction to this drug is rare. However, get medical help right away if you notice any symptoms of a serious allergic reaction, including: rash, itching/swelling (especially of the face/tongue/throat), severe dizziness, trouble breathing. ?An allergic reaction to this medication may return even if you stop the drug. If you have an allergic reaction, continue to watch for any of the above symptoms for several days after your last dose. ?This is not a complete list of possible side effects. If you notice other effects not listed above, contact your doctor or pharmacist. ?Azithromycin may cause a condition that affects the heart rhythm (QT prolongation). QT prolongation can rarely cause serious (rarely fatal) fast/irregular heartbeat and other symptoms (such as severe dizziness, fainting) that need medical attention right away. ?The risk of QT prolongation may be increased if you have certain medical conditions or are taking other drugs that may cause QT prolongation. Before using azithromycin, tell your doctor or pharmacist of all the drugs you take and if you have any of the following conditions: certain heart problems (heart failure, slow heartbeat, QT prolongation in the EKG), family history of certain heart problems (QT prolongation in the EKG, sudden cardiac ). ?Low levels of potassium or magnesium in the blood may also increase your risk of QT prolongation. This risk may increase if you use certain drugs (such as diuretics/water pills) or if you have conditions such as severe sweating, diarrhea, or vomiting. Talk to your doctor about using azithromycin safely. ?Many drugs besides azithromycin may affect the heart rhythm (QT prolongation), including amiodarone, disopyramide, dofetilide, dronedarone, ibutilide, pimozide, procainamide, quinidine, sotalol, among others. ?This drug passes into breast milk. Consult your doctor before breast-feeding. ?Although most antibiotics are unlikely to affect hormonal control such as pills, patch, or ring, a few antibiotics (such as rifampin, rifabutin) can decrease their effectiveness. This couldresult in . If you use hormonal control, ask your doctor or pharmacist for more details. ?? Prednisone: ?Many people experience no side effects, while others may experience nausea, loss of appetite, or difficulty sleeping. ?If you have diabetes, check your blood glucose more frequently as this will likely increase your blood glucose. ?Take this medication by mouth, with food or milk to prevent stomach upset, as directed by your doctor. You may mix the medication in juice or applesauce before taking it. If you are prescribed only one dose per day, take it in the morning before 9 A.M. ?? PREDNISONE SIDE EFFECTS: ?Nausea, vomiting, loss of appetite, heartburn, trouble sleeping, increased sweating, or acne may occur. If any of these effects persist or worsen, tell your doctor or pharmacist promptly. ?Tell your doctor right away if any of these unlikely but serious side effects occur: muscle pain/cramps, irregular heartbeat, weakness, swelling hands/ankles/feet, unusual weight gain, signs of infection (such as fever, persistent sore throat), vision problems (such as blurred vision), vomit that looks like coffee grounds, black/bloody stools, severe stomach/abdominal pain, mental/mood changes (such as depression, mood swings, agitation), slow wound healing, thinning skin, bone pain, menstrual period changes, puffy face, seizures, easy bruising/bleeding. ?This medication may rarely make your blood sugar level rise, which can cause or worsen diabetes. Tell your doctor right away if you develop symptoms of high blood sugar, such as increased thirst and urination. If you already have diabetes, be sure to check your blood sugars regularly. Your doctor may need to adjust your diabetes medication, exercise program, or diet. ?A very serious allergic reaction to this product is rare. However, get medical help right away if you notice any symptoms of a serious allergic reaction, including: rash, itching/swelling (especially of the face/tongue/throat), severe dizziness, trouble breathing. ?This is not a complete list of possible side effects. If you notice other effects not listed above, contact your doctor or pharmacist. ?Before using this medication, tell your doctor or pharmacist your medical history, especially of: current/past infections (such as fungal infections, tuberculosis, herpes), heart problems (such as heart failure, recent heart attack), high blood pressure, thyroid problems, kidney disease, liver disease, stomach/intestinal problems (such as ulcer, diverticulitis), bone loss (osteoporosis), mental/mood disorders (such as psychosis, anxiety, depression), eye diseases (such as cataracts, glaucoma), diabetes, mineral imbalance (such as low level of potassium/calcium in the blood), seizures, blood clots, bleeding problems. ?This medicine may cause stomach bleeding. Daily use of alcohol while using this medicine may increase your risk for stomach bleeding. Limit alcoholic beverages. Consult your doctor or pharmacist for more information. ?During , this medication should be used only when clearly needed. It may rarely harm an unborn baby. Discuss the risks and benefits with your doctor. Infants born to mothers who have been using this medication for an extended period of time may have hormone problems. Tell your doctor right away if you notice symptoms such as persistent nausea/vomiting, severe diarrhea, or weakness inyour . ?This medication passes into breast milk but is unlikely to harm a nursing . Consult your doctor before breast-feeding. ?? Albuterol (Brand Name: Salbutamol) ?This drug is used to open the airways in lung diseases where spasm may cause breathing problems. ?Please use this medication as prescribed. Please call your doctor if you are needing to use if more frequently than prescribed. ?Use your inhaler with a spacer every time. ?This medication may make you feel jittery and have a faster heart rate.?If you have diabetes, please check your blood glucose more frequently as it may be higher.? ALBUTEROL WARNING/CAUTION: Even though it may be rare, some people may have very bad and sometimes deadly side effects when taking a drug. Tell your doctor or get medical help right away if you have any of the following signs or symptoms that may be related to a very bad side effect: ?Signs of an allergic reaction, like rash; hives; itching; red, swollen, blistered, or peeling skin with or without fever; wheezing; tightness in the chest or throat; trouble breathing or talking;unusual hoarseness; or swelling of the mouth, face, lips, tongue, or throat. ?Signs of low potassium levels like muscle pain or weakness, muscle cramps, or a heartbeat that does not feel normal. ?If you are not able to get the breathing attack under control. Get help right away. ?Chest pain or pressure or a fast heartbeat. ?Very nervous and excitable. ?Very bad headache. ?Very bad dizziness or passing out. ?This drug may sometimes cause very bad breathing problems. This may be life- threatening. When this happens with a puffer (inhaler) or with liquid for breathing in, most of the time it happens right after a dose and after the first use of a new canister or vial of this drug. If you have trouble breathing, breathing that is worse, wheezing, or coughing, get medical help right away. ?? ALBUTEROL WARNING/CAUTION: Even though it may be rare, some people may have very bad and sometimes deadly side effects when taking a drug. Tell your doctor or get medical help right away if you have any of the following signs or symptoms that may be related to a very bad side effect: ?Signs of an allergic reaction, like rash; hives; itching; red, swollen, blistered, or peeling skin with or without fever; wheezing; tightness in the chest or throat; trouble breathing or talking;unusual hoarseness; or swelling of the mouth, face, lips, tongue, or throat. ?Signs of low potassium levels like muscle pain or weakness, muscle cramps, or a heartbeat that does not feel normal. ?If you are not able to get the breathing attack under control. Get help right away. ?Chest pain or pressure or a fast heartbeat. ?This drug may sometimes cause very bad breathing problems. This may be life- threatening. When this happens with a puffer (inhaler) or with liquid for breathing in, most of the time it happens right after a dose and after the first use of a new canister or vial of this drug. If you have trouble breathing, breathing that is worse, wheezing, or coughing, get medical help right away. ?Pain when passing urine. ?Trouble passing urine. A very bad skin reaction (Dillon-Shun syndrome/toxic epidermal necrolysis) may happen. It can cause very bad health problems that may not go away, and sometimes . Get medical help right awayif you have signs like red, swollen, blistered, or peeling skin (with or without fever); red or irritated eyes; or sores in your mouth, throat, nose, or eyes. ?? Discharge Vitals Temperature??(Temporal Artery) 96.4 ??F (35.8 ??C) Heart Rate??(Peripheral) 101 Respiratory Rate?? 22 Blood Pressure?? 122/73?? SpO2?? 92% Height?? 61.02 in (155 cm) Weight??(Estimated) 167.03 lb (75.75 kg) BMI?? 31.53 Allergies No Known Medication Allergies What to Do Next Upcoming Scheduled Appointments 2023 9:20 AM EDT ?? With: Dilan Hernandez MD Where: [address] [address] Status: Confirmed Thursday 8:30 AM EDT ?? With: Jaimee Cerda NP Where: [facility] [address] [place] [address] Status: Confirmed 2024 1:00 PM EDT ?? With: Dilan Hernandez MD Where: [facility] [address] [address] Status: Confirmed You were treated [...] How Much When Why Instructions Next Dose Unchanged albuterol (Albuterol (Eqv-ProAir HFA) 90 mcg/ [...] days, 2 tab daily x3 days ?? Unchanged semaglutide (Wegovy (0.25 mg dose) [...] as needed for as needed for pain Tests Performed Medications and Immunizations Administered Given dexamethasone, 10 mg, Oral DuoNeb, 3 mL, Inhale Lab Test Name Test Result Date/Time WBC 11.4 x10^3/mcL 11/20/2023 23:16 EDT RBC 4.2 x10^6/mcL 11/20/2023 23:16 EDT Hgb 12.3 g/dL 11/20/2023 23:16 EDT Hct 37.8 % 11/20/2023 23:16 EDT MCV 90.6 fL 11/20/2023 23:16 EDT MCH 29.5 pg 11/20/2023 23:16 EDT MCHC 32.5 g/dL 11/20/2023 23:16 EDT RDW-CV 14.8 % 11/20/2023 23:16 EDT Platelets 288 x10^3/mcL 11/20/2023 23:16 EDT Neutro Auto 68.2 % 11/20/2023 23:16 EDT Lymph Auto 22.8 % 11/20/2023 23:16 EDT Carter Auto 5.9 % 11/20/2023 23:16 EDT Eos, Auto 2.3 % 11/20/2023 23:16 EDT Basophil Auto 0.4 % 11/20/2023 23:16 EDT Imm Gran Auto 0.4 % 11/20/2023 23:16 EDT Neutro Absolute 7.8 x10^3/mcL 11/20/2023 23:16 EDT Sodium Level 140 mmol/L 11/20/2023 23:16 EDT Potassium Level 4.2 mmol/L 11/20/2023 23:16 EDT Chloride Level 102 mmol/L 11/20/2023 23:16 EDT CO2 29 mmol/L 11/20/2023 23:16 EDT BUN 18 mg/dL 11/20/2023 23:16 EDT Glucose Level 131 mg/dL 11/20/2023 23:16 EDT Creatinine Level 0.77 mg/dL 11/20/2023 23:16 EDT eGFR AA 82 11/20/2023 23:16 EDT eGFR Non-AA 82 11/20/2023 23:16 EDT Calcium Level 9.4 mg/dL 11/20/2023 23:16 EDT Troponin-I 6.2 pg/mL 11/20/2023 23:16 EDT Patient/Steel Grinder Signature Patient Name:AUBREE COUCH I have received this information and my questions have been answered. Patient/Steel Grinder Name: Patient/Steel Grinder Signature: Relationship to Patient: Witness Name/Signature: Date: Electronically Signed on: 11/21/2023 00:00 EDTSigned by:GINNA History and physical note * Event Display: History and Physical Update Authored Date: [id number] Patient Care team information Care Team Personnel Name: Dilan Hernandez MD Position: Physician Member Role: Informed Provider Address: Address: [address] [address]- Care Team Related Persons Name: LIAM QUIGLEY Address: [address], [address] Address: Home [address] [place], [place] [id number] Address: Mailing [address] [place] [phone] Name: GRACIELA COUCH Address: Home [address] [place] [phone]
--- OUTSIDE RECORDS SUMMARY | 2024-07-07 20:06 | XMS_ITS | Encounter Summary ---
Author Organization [facility] [place] [address] Care Team Providers Care Fleece Tier Name Role Phone Dilan Hernandez MD Primary Care Provider Reason for Visit * Auth/Cert (Routine) Specialty Diagnoses / Procedures Referred By Albert castaneda Referred To Contact Diagnoses Bloating Encounter for colorectal cancer screening EGD: bloating [place]: colorectal screening Procedures PRO UPPER GI ENDOSCOPY, DIAGNOSTIC PRO COLONOSCOPY, DIAGNOSTIC PRO UPPER GI ENDOSCOPY, BIOPSY PRO UP GI ENDOSCOPY, REMV TUMOR, SNARE PRO COLONOSCOPY, BIOPSY PRO COLONOSCOPY, REMV LESN, SNARE PRO ANES, COMBINED UPPER OR LOWER ENDOSCOPY EGD, UPPER GI ENDOSCOPY (WRVU 2.09) COLONOSCOPY, DIAGNOSTIC (WRVU 3.26) Sai Grimaldo MD [facility] [place] [address] [facility] Referral ID Status Reason Start Date Expiration Date Visits Re quested Visits Authorized [id number] 1 1 Encounter Details Date Type Department Care Team (Late st Contact Info) Description 02/16/2024 7:40 AM EDT Anesthesia [place] [id number] Gary Johnston MD [facility] ANESTHESIOLOGY DEPT [place], [place] [id number] Anesthesia Record Procedure Summary Procedure Name Responsible Anesthesiologist Anesthesia Start Time Anesthesia Stop Time EGD, UPPER GI ENDOSCOPY (WRVU 2.09) (Trunk) Gary Johnston MD 02/16/24 0740 02/16/24 0847 Events Date Time Event Comment 02/16/2024 0734 0740 AN Verify 0740 Start 0740 An Start Data 0745 An Induction 0746 Anesthesia Ready 0843 an stop data 0847 Recovery or ICU Handoff Siobhan ent care was transferred to the destination unit staff after review of the patient's medical history, current anesthetic/surgical status and plan, according to the Provider Handoff Checklist. 0847 Stop Meds Name Total lidocaine IV 60 mg propofoL 490 mg dexmedeTOMIDine 4 mcg/mL 12 mcg lactated ringers infusion 500 mL * Agents Name O2 Auxiliary Flowmeter 1 * Blood No blood administrations on file. Lines, Drains, and Airways Type Details Placement Removal PIV 02/16/24; 07; 20 g auge; median cubital vein (antecubital fossa), right; Sally GOODE; tolerated well; 02/16/24; 0902/16/24 07 by Twyla Carrasco RN 02/16/24918 by Michel Horner RN documented in this encounter Social History Tobacco Use Types Packs/Day Years Used Date Smoking Tobacco: Every Day Cigarettes Smokeless Tobacco: Never Alcohol Use Standard Drinks/Week Comments Yes 7 (1 standard drink = 0.6 oz pur e alcohol) 1 drink a day DH IPV Inpatient Questions Answer Date Recorded Does Anyone Try to Keep You From Having Contact with Others or Doing Things Outside Your Home? no 02/08/2024 Feels Threatened by Someone no 07/2023 Feels Unsafe at Home or Work/School no 02/08/2024 Physical Signs of Abuse Present no 02/08/2024 Sex and Gender Information Value Date Recorded Sex Assigned at Not on file Gender Identity Not on file Sexual Orientation Straight 09/21/2020 3: 34 PM EDT documented as of this encounter OR Notes * Anesthesia Postprocedure Evaluation - Gary Johnston MD - 02/16/2024 9:21 AM EDT Department of Anesthesiology Post-procedure Note Patient: Mallorie Burgess Procedure Summary Date: 02/16/24 Room / Location: [facility] 5 / [facility] Anesthesia Start: 739 Anesthesia Stop: 846 Procedures: EGD, UPPER GI ENDOSCOPY (WRVU 2.09) (Trunk) COLONOSCOPY, POLYPECTOMY, REMOVAL LESION BY SNARE (WRVU 4.57) (Trunk) Diagnosis: Bloating Encounter for colorectal cancer screening (EGD: bloating [place]: colorectal screening) Surgeons: Sai Grimaldo MD Responsible Provider: Gary Johnston MD Anesthesia Type: MAC ASA Status: 3 All Anesthesia Providers: Anesthesiologist: Gary Johnston MD FUEL CELL BATTERY TECHNICIAN: Merritt Lozoya CRNA Vitals Value Taken Time BP 112/86 02/16/24 0912 Temp Pulse Resp 14 02/16/24 0900 SpO2 96 % 02/16/24 0916 Pain Level 0 02/16/24 09 Vitals shown include unfiled device data. Patient Location: PACU/[facility] Level of Consciousness: Awake and Alert Pain Management: Satisfactory Analgesia PONV: None Cardiovascular Status: Hemodynamically Stable and At Baseline Respiratory Status: Supplemental O2 (NC or FM) and At Baseline Postoperative Fluid Status: Intravascular EUvolemia Possible Anesthetic Complications: NONE apparent at time of evaluation Final Primary Anesthesia Type: MAC (The anesthetic type performed was the same as planned.) Comments: * Anesthesia Preprocedure Evaluation - Gary Johnston MD - 02/16/2024 7:32 AM EDT Pre-Anesthesia Evaluation for: Mallorie Burgess a 73 y.o. female. Procedure(s): EGD, UPPER GI ENDOSCOPY (WRVU 2.09) COLONOSCOPY, DIAGNOSTIC (WRVU 3.26) Patient Active Problem List Diagnosis Date Noted ??? Anxiety disorder 01/28/2024 ??? Chronic pain disorder 01/28/2024 ??? Claustrophobia 01/28/2024 ??? Excessive daytime sleepiness 01/28/2024 ??? Hyponatremia 01/28/2024 ??? Hypoxemia associated with sleep 01/28/2024 ??? Insomnia 01/28/2024 ??? Lumbosacral radiculopathy 01/28/2024 ??? Overweight 01/28/2024 ??? Peptic ulcer disease 01/28/2024 ??? Right hip pain 01/28/2024 ??? SOB (shortness of breath) on exertion 01/28/2024 ??? Tobacco abuse 01/28/2024 ??? COPD (chronic obstructive pulmonary disease) 12/07/2023 ??? Gastroesophageal reflux disease 12/07/2023 ??? Mixed stress and urge urinary incontinence 12/07/2023 ??? Nicotine dependence 12/07/2023 ??? Prediabetes 12/07/2023 ??? Low back pain, non-specific 10/02/2020 ??? Spondylosis of lumbar region without myelopathy or radiculopathy 10/02/2020 ??? DDD (degenerative disc disease), lumbar 08/23/2020 ??? Restless legs 03/05/2020 ??? Gastric outlet obstruction 07/28/2019 ??? History of pyloric channel ulcer 01/19/2019 ??? Pyloric stenosis 01/19/2019 ??? Diarrhea 09/06/2018 Past Medical History: Diagnosis Date ??? COPD (chronic obstructive pulmonary disease) ??? Pre-diabetes Past Surgical History: Procedure Laterality Date ??? COLON SURGERY bladder and colon ??? ECTOPIC SURGERY ??? OVARIAN CYST SURGERY ??? TUBAL LIGATION Social History Tobacco Use ??? Smoking status: Every Day Current packs/day: 1.50 Types: Cigarettes ??? Smokeless tobacco: Never Substance Use Topics ??? Alcohol use: Yes Alcohol/week: 7.0 standard drinks of alcohol Types: 7 Shots of liquor per week Comment: 1 drink a day Social History Substance and Sexual Activity Drug Use Not Currently No Known Allergies Medications: MAR and/or home medications have been reviewed. Physical Exam: Preprocedure Vitals Current as of 02/16/24 0732 BP: 107/69 Pulse: 83 Resp: 16 SpO2: 96 Temp: 36.6 ??C (97.8 ??F) Height: 154.9 cm (5' 1) (02/16/24) Weight: 80.5 kg (177 lb 6.4 oz) (02/16/24) BMI: 33.52 IBW: 47.8 kg (105 lb 4.8 oz) Last edited 02/16/24 0719 by EP Currently displaying vitals information from multiple entries within 180 minutes of most recent vitals. Airway Assessment: Mallampati: II TM distance: >3 FB Neck ROM: full Cardiovascular Assessment: Rate: normal Pulmonary Assessment: unlabored breathing Dental Assessment: (+) edentulous Misc Assessment: IV access: Peripheral line Last Filed Perioperative Cognitive Screening Value Time User 4AT TOTAL Score: 0 02/08/2024 8:10 PM Marge Phipps RN Anesthesia Plan: ASA 3 MAC, with a(n) intravenous induction 73 y/o woman with a PMH of COPD on 3 lpm NC, CHF, DM2, obesity here for EGD colo. S/p gastric bypass for GOO. On ozempi. NPO with no solids for >36 hours. Plan for MAC. Discussed possibility of aspiration given ozempic and gastric surgery. Patient electsto proceed. Region - Other Informed Consent: Anesthetic plan and risks discussed with patient and spouse. Plan discussed with FUEL CELL BATTERY TECHNICIAN and attending. Anesthesia Screening documented in this encounter Plan of Treatment Upcoming Encounters Date Type Department Care Team (Late st Contact Info) Description 07/12/2024 8:00 AM [facility] Hospital Encounter XRay at [address] [place] [address] [place] [address] Scheduled Procedures Name Priority Associated Diagnoses Date/Ti me INJECTION, FACET JOINT, W\FLUORO, LUMBAR, 2ND LEVEL (WRVU 1) Spondylosis of lumbar region without myelopathy or radiculopathy INJECTION, FACET JOINT, W\FLUORO, LUMBAR, SINGLE (WRVU 1.52) Spondylosis of lumbar region without myelopathy or radiculopathy documented as of this encounter Visit Diagnoses Not on filedocumented in this encounter Administered Medications Inactive Administered Medications - up to 3 most recent administrations Medication Order MAR Action Action Date Dose Rate Site dexmedeTOMIDine (Precedex) (4 mcg/mL) bolus injection (Anesthsia) Intravenous, PRN, Starting on Thu02/16/24 at 0745, Until Thu02/16/24 at 0851, Anesthesia Intra-op, Routine Given 02/16/2024 7:45 AM EDT 12 mcg lactated ringers infusion 100 mL/hr, Intravenous, CONTINUOUS, Starting on Thu02/16/24 at 0730, Until Thu02/16/24 at 0920, Endoscopy (Day of Procedure) Restarted 02/16/2024 7:40 AM EDT New Bag 02/16/2024 7:26 AM EDT 100 mL/hr 100 mL/hr lidocaine (pf) (Xylocaine) (20 mg/mL) 2% injection syringe Intravenous, PRN, Starting on Thu02/16/24 at 0746, Until Thu02/16/24 at 0851, Anesthesia Intra-op, Routine Given 02/16/2024 7:46 AM EDT 60 mg propofoL (Diprivan) 10 mg/mL bolus injection (Anesthesia) Intravenous, PRN, Starting on Thu02/16/24 at 0746, Until Thu02/16/24 at 0851, Anesthesia Intra-op Given 02/16/2024 8:31 AM EDT 50 mg Given 02/16/2024 8:24 AM EDT 50 mg Given 02/16/2024 8:17 AM EDT 50 mg documented in this encounter Care Teams Fleece Tier Relationship Specialty Start Date End Date Dilan Hernandez MD [address] [place] [address] [place] [address] PCP - General 04/30/10 documented as of this encounter
--- OUTSIDE RECORDS SUMMARY | 2024-07-07 20:06 | XMS_ITS | Encounter Summary ---
Author [facility] [place] [address] Care Team Providers Care Gas Specialist Name Role Phone Dilan Hernandez MD Primary Care Provider [phone] Reason for Visit * Reason Onset Date Comments Pre Procedure Call 06/27/2024 Encounter Details Date Type Department Care Team (Late st Contact Info) Description 06/27/2024 Telephone [facility] [place] [phone] Lelia Corona, RN Pre Procedure Call Social History Tobacco Use Types Packs/Day Years Used Date Smoking Tobacco: Every Day Cigarettes Smokeless Tobacco: Never Alcohol Use Standard Drinks/Week Comments Yes 7 (1 standard drink = 0.6 oz pur e alcohol) 1 drink a day [facility] Inpatient Questions Answer Date Recorded Does Anyone [...] PM EDT documented as of this encounter Miscellaneous Notes * Telephone Encounter - Lelia Corona, RN - 06/27/2024 12:27 PM ESTSummary: needs clearance letter from PCP Outgoing call to Mallorie to confirm that she needs to have a clearance letter sent by prescriber of recent antibiotics for UTI in order for us to proceed with scheduling. Informed patient that we require at least 14 days free from infection or from taking antibiotics before procedure. Patient statesjerrell is no longer taking other antibiotics (other than her usual maintenance ones for chronic UTI). Patient states she does not have any symptoms at this time, and recent urinalysis labwork sent by PCP from 06/14/24 shows negative results (see media). Patient verbalized understanding. Fax number given for clearance letter via [facility]. documented in this encounter Plan of Treatment Upcoming Encounters Date Type Department Care Team (Late st Contact Info) Description 07/12/2024 8:00 AM EST Hospital Encounter XRay at [address] [place] [address] [place] [address] Scheduled Procedures Name Priority Associated Diagnoses Date/Ti me INJECTION, FACET JOINT, W\FLUORO, LUMBAR, 2ND LEVEL (WRVU 1) Spondylosis of lumbar region without myelopathy or radiculopathy INJECTION, FACET JOINT, W\FLUORO, LUMBAR, SINGLE (WRVU 1.52) Spondylosis of lumbar region without myelopathy or radiculopathy documented as of this encounter Visit Diagnoses Not on filedocumented in this encounter Care Teams Gas Specialist Relationship Specialty Start Date End Date Dilan Hernandez MD [address] [place] [address] [place] [phone] PCP - General 04/30/10 documented as of this encounter
--- OUTSIDE RECORDS SUMMARY | 2024-07-07 20:06 | XMS_ITS | Encounter Summary ---
Author Organization [facility] Address [facility] [place] [address] Care Team Providers Care General Farmworker Name Role Phone Dilan Hernandez MD Primary Care Provider [phone] Encounter Details Date Type Department Care Team (Latest Contact Info) Description 03/28/2024 Travel Social History Tobacco Use Types Packs/Day Years Used Date Smoking Tobacco: Every Day Cigarettes Smokeless Tobacco: Never Alcohol Use Standard Drinks/Week Comments Yes 7 (1 standard drink = 0.6 oz pur e alcohol) 1 drink a day IPV Inpatient Questions Answer Date Recorded Does [...] PM EDT documented as of this encounter Plan of Treatment Upcoming Encounters Date Type Department Care Team (Late st Contact Info) Description 07/12/2024 8:00 AM [facility] Hospital Encounter XRay at [address] [place] [address] Eliane Peterson APRN [facility] [place] [address] Scheduled Procedures Name Priority Associated Diagnoses Date/Ti me INJECTION, FACET JOINT, W\FLUORO, LUMBAR, 2ND LEVEL (WRVU 1) Spondylosis of lumbar region without myelopathy or radiculopathy INJECTION, FACET JOINT, W\FLUORO, LUMBAR, SINGLE (WRVU 1.52) Spondylosis of lumbar region without myelopathy or radiculopathy documented as of this encounter Visit Diagnoses Not on filedocumented in this encounter Care Teams General Farmworker Relationship Specialty Start Date End Date Dilan Hernandez MD [address] [place] [address] [place] [phone] PCP - General 04/30/10 documented as of this encounter
--- OUTSIDE RECORDS SUMMARY | 2024-07-07 20:06 | XMS_ITS | Encounter Summary ---
[place] [address] Care Team Providers Care Commission Associate Name Role Phone Dilan Hernandez MD Primary Care Provider [phone] Reason for Referral * Consultation (Urgent) - Closed Specialty Diagnoses / Procedures Referred By Contrao t Referred To Contact Pulmonology Diagnoses Chronic obstructive pulmonary disease, unspecified COPD type Dilan Hernandez MD [address] [place] [address] [place] [address] [facility] Pulmonology [address] [place] [phone] Referral ID Status Reason Start Date Expiration Date V isits Requested Visits Authorized [id number] Closed Consult, Test & Treat PCP Updated and/or Approved 10/16/2023 04/15/2024 6 6 Encounter Details Date Type Department Care Team (Latest Contact Info) Description 03/07/2024 Transcribe Orders eDH Incoming Referrals [phone] Dilan Hernandez MD [address] [place] [address] [place] [phone] Chronic obstructive pulmonary disease, unspecified COPD type Social History Tobacco Use Types Packs/Day Years [...] Contact Info) Description 07/12/2024 8:00 AM [facility] Hospital Encounter XRay at [address] [place] [address] [place] [address] Scheduled Procedures Name Priority Associated Diagnoses Date/Ti me INJECTION, FACET JOINT, W\FLUORO, LUMBAR, 2ND LEVEL (WRVU 1) Spondylosis of lumbar region without myelopathy or radiculopathy INJECTION, FACET JOINT, W\FLUORO, LUMBAR, SINGLE (WRVU 1.52) Spondylosis of lumbar region without myelopathy or radiculopathy Scheduled Referrals Name Type Priority Associated Diagnoses Orde r Schedule Referral to Pulmonology Outpatient Referral Urgent Chronic obstructive pulmonary disease, unspecified COPD type Ordered: 03/07/2024 documented as of this encounter Visit Diagnoses Diagnosis Chronic obstructive pulmonary disease, unspecified COPD type documented in this encounter Care Teams Commission Associate Relationship Specialty Start Date End Date Dilan Hernandez MD [address] [place] [address] [place] [phone] PCP - General 04/30/10 documented as of this encounter
--- OUTSIDE RECORDS SUMMARY | 2024-07-07 20:06 | XMS_ITS | Encounter Summary ---
Author Organization [facility] [place] [address] Care Team Providers Care Sales Operations Coordinator Name Role Phone Dilan Hernandez MD Primary Care Provider [phone] Reason for Visit * Auth/Cert (Routine) Specialty Diagnoses / Procedures Referred By Albert castaneda Referred To Contact Diagnoses Bloating Encounter for colorectal cancer screening EGD: bloating [place]: colorectal screening Procedures PRO UPPER GI ENDOSCOPY, DIAGNOSTIC PRO COLONOSCOPY, DIAGNOSTIC PRO UPPER GI ENDOSCOPY, BIOPSY PRO UP GI ENDOSCOPY, REMV TUMOR, SNARE PRO COLONOSCOPY, BIOPSY PRO COLONOSCOPY, REMV LESN, SNARE PRO ANES, COMBINED UPPER OR LOWER ENDOSCOPY EGD, UPPER GI ENDOSCOPY (WRVU 2.09) COLONOSCOPY, DIAGNOSTIC (WRVU 3.26) Sai Grimaldo MD [facility] [place] [address] [place] Referral ID Status Reason Start Date Expiration Date Visits Re quested Visits Authorized [id number] 1 1 Encounter Details Date Type Department Care Team (Late st Contact Info) Description 02/16/2024 6:31 AM EDT - 02/16/2024 9:26 AM EDT Hospital En[place] [address] Sai Grimaldo MD [facility] [place] [address] Encounter for colorectal cancer screening Discharge Disposition: Home Social History Tobacco Use Types Packs/Day Years [...] PM EDT documented as of this encounter Last Filed Vital Signs Vital Sign Reading Time Taken Comments Blood Pressure 107/69 02/16/2024 7:19 AM EDT Pulse 83 02/16/2024 7:15 AM EDT Temperature 36.6 ??C (97.8 ??F) 02/16/2024 7:15 AM ED T Respiratory Rate 14 02/16/2024 9:00 AM EDT Oxygen Saturation 96% 02/16/2024 7:15 AM EDT Inhaled Oxygen Concentration - - Weight 80.5 kg (177 lb 6.4 oz) 02/16/2024 7:15 A M EDT Height 154.9 cm (5' 1) 02/16/2024 7:15 AM EDT Body Mass Index 33.52 02/16/2024 7:15 AM EDT documented in this encounter Discharge Instructions * Discharge Instructions* Michel Horner RN - 02/16/2024 8:50 AM EDT Upper GI Endoscopy: What to Expect at Home Your Recovery You will be able to go home after your doctor or nurse checks to make sure you are not having any problems. You may have to stay overnight if you had treatment during the test. You may have a sore throat fora day or two after the test. This care sheet gives you a general idea about what to expect after the test. How can you care for yourself at home? Activity Rest when you feel tired. You can do your normal activities when it feels okay to do so. Diet Follow your doctor's directions for eating. Unless your doctor has told you not to, drink plenty of fluids. This helps to replace the fluids that were lost during the prep. Do not drink alcohol. Medicines Your doctor will tell you if and when you can restart your medicines. He or she will also give you instructions about taking any new medicines. If you take blood thinners, such as warfarin (Coumadin), clopidogrel (Plavix), or aspirin, be sure to talk to your doctor. He or she will tell you if and when to start taking those medicines again. Make sure that you understand exactly what your doctor wants you to do. If polyps were removed or a biopsy was done during the test, your doctor may tell you not to take aspirin or other anti-inflammatory medicines for a few days. These include ibuprofen (Advil, Motrin) and naproxen (Aleve). If you have a sore throat the day after the procedure, use an xtov-tvh-ikourao spray to numb your throat. Sucking on throat lozenges and gargling with warm salt water may also help relieve your symptoms. Other instructions For your safety, do not drive or operate machinery until the medicine wears off and you can think clearly. Your doctor may tell you not to drive or operate machinery until the day after your test. Do not sign legal documents or make major decisions until the medicine wears off and you can think clearly. The anesthesia can make it hard for you to fully understand what you are agreeing to. Additional Information for Sedation Patients For patients who received sedation: You may have received medications before and/or during your procedure which effects your judgement and reaction time. Do not drive, operate machinery, drink alcoholic beverages or make important decisions for 24 hours. Be careful on stairs as you may be unsteady on your feet. You may eat a regular diet as tolerated. Do not smoke if you are alone. IV site: Slight redness or tenderness is normal, you can use a warm compress if you would like. If tenderness and/or redness increase or if foul drainage occurs, please contact your Doctor. Please call [phone] before 8pm Mon-Fri with problems, questions or concerns. If you call after 8pm or on weekends, call the Hospital at [phone] and ask to speak to the Geriatrics Physician television news photographer and the motor vehicle operator road supervisor will contact that person for you. When should you call for help? Call 911 anytime you think you may need emergency care. For example, call if: You passed out (lost consciousness). You pass maroon or bloody stools. You have trouble breathing. Call your doctor now or seek immediate medical care if: You have pain that does not get better after you take pain medicine. You are sick to your stomach or cannot drink fluids. You have new or worse belly pain. You have blood in your stools. You have a fever. You cannot pass stools or gas. Watch closely for changes in your health, and be sure to contact your doctor if you have any problems. Where can you learn more? [facility] View your After Visit Summary and more online at [email or web address] If you would like to provide feedback about your hospital experience, please call the Office of Patient and Family Relations at . If you have received this After Visit Summary in error, please immediately return it in person to the department, or notify the [facility] Privacy Office by calling toll free at between the hours of 8AM and 5PM to arrange for our retrieval of the documents at no cost to you. Content Version: 12.2 ?? 2333-4516 [employer]. Care instructions adapted under license by [email or web address]. If you have questions about a medical condition or this instruction, always ask your healthcare professional. [employer] disclaims any warranty or liability for your use of this information. Colonoscopy: What to Expect at Home Your Recovery Your doctor will talk to you about when you will need your next colonoscopy. Your doctor can help you decide how often you need to be checked. This will depend on the results of your test and your risk for colorectal cancer. After the test, you may be bloated or have gas pains. You may need to pass gas. If a biopsy was done or a polyp was removed, you may have streaks of blood in your stool (feces) for a few days. Problems such as heavy rectal bleeding may not occur until several weeks after the test. This isn't common. But it can happen after polyps are removed. This care sheet gives you a general idea about how long it will take for you to recover. But each person recovers at a different pace. Follow the steps below to get better as quickly as possible. How can you care for yourself at home? Activity Rest when you feel tired. You can do your normal activities when it feels okay to do so. Diet Follow your doctor's directions for eating. Unless your doctor has told you not to, drink plenty of fluids. This helps to replace the fluids that were lost during the colon prep. Do not drink alcohol. Medicines Your doctor will tell you if and when you can restart your medicines. He or she will also give you instructions about taking any new medicines. If you take blood thinners, such as warfarin (Coumadin), clopidogrel (Plavix), or aspirin, be sure to talk to your doctor. He or she will tell you if and when to start taking those medicines again. Make sure that you understand exactly what your doctor wants you to do. If polyps were removed or a biopsy was done during the test, your doctor may tell you not to take aspirin or other anti-inflammatory medicines for a few days. These include ibuprofen (Advil, Motrin) and naproxen (Aleve). Other instructions For your safety, do not drive or operate machinery until the medicine wears off and you can think clearly. Your doctor may tell you not to drive or operate machinery until the day after your test. Do not sign legal documents or make major decisions until the medicine wears off and you can think clearly. The anesthesia can make it hard for you to fully understand what you are agreeing to. Additional Information for Sedation Patients For patients who received sedation: You may have received medications before and/or during your procedure which effects your judgement and reaction time. Do not drive, operate machinery, drink alcoholic beverages or make important decisions for 24 hours. Be careful on stairs as you may be unsteady on your feet. You may eat a regular diet as tolerated. Do not smoke if you are alone. IV site: Slight redness or tenderness is normal, you can use a warm compress if you would like. If tenderness and/or redness increase or if foul drainage occurs, please contact your Doctor. Please call [phone] before 8pm Mon-Fri with problems, questions or concerns. If you call after 8pm or on weekends, call the Hospital at [phone] and ask to speak to the Geriatrics Physician television news photographer and the motor vehicle operator road supervisor will contact that person for you. When should you call for help? Call 911 anytime you think you may need emergency care. For example, call if: You passed out (lost consciousness). You pass maroon or bloody stools. You have trouble breathing. Call your doctor now or seek immediate medical care if: You have pain that does not get better after you take pain medicine. You are sick to your stomach or cannot drink fluids. You have new or worse belly pain. You have blood in your stools. You have a fever. You cannot pass stools or gas. Watch closely for changes in your health, and be sure to contact your doctor if you have any problems. Where can you learn more? [facility] View your After Visit Summary and more online at [email or web address] If you would like to provide feedback about your hospital experience, please call the Office of Patient and Family Relations at . If you have received this After Visit Summary in error, please immediately return it in person to the department, or notify the [facility] Privacy Office by calling toll free at between the hours of 8AM and 5PM to arrange for our retrieval of the documents at no cost to you. Content Version: 12.2 ?? [phone] [employer]. Care instructions adapted under license by [facility]. If you have questions about a medical condition or this instruction, always ask your healthcare professional. [employer] disclaims any warranty or liability for your use of this information. documented in this encounter Medications at Time of Discharge Medication Sig Dispensed Refills Start Date End Date metFORMIN (Glucophage) 500 mg tablet Take 500 mg by mouth 2 times daily (with meals). 01/19/2024 spironolactone (Aldactone) 25 mg tablet Take 0.5 tablets by mouth daily. 01/19/2024 Ozempic 0.25 mg or 0.5 mg (2 mg/3 mL) Pen Injector Inject 0.25 mg subcutaneously once a week. Now 1.0 mg 04/27/2023 budesonide-glycopyrro late-formoterol (Breztri Aerosphere) 160-9-4.8 mcg/actuation inhaler (HFA) 2 puffs, Inhale, BID, rinse mouth and throat after use, # 5.9 g, 0 Refill(s) 09/07/2023 cephALEXin (Keflex) 250 mg capsule Take 1 capsule by mouth Daily at Noon. 09/19/2023 ferrous sulfate 324 mg (65 mg iron) Tablet, Delayed Release (E.C.) Take 324 mg by mouth every other day. escitalopram (Lexapro) 10 mg Tablet Take 10 mg by mouth daily. PROAIR HFA 90 mcg/actuation HFA Aerosol Inhaler INHALE TWO PUFFS BY MOUTH EVERY 4 HOURS NEEDED 04/02/2019 pramipexole (MIRAPEX) 1 mg Tablet Take 1.5 mg by mouth 2 times daily. 2 mg in morning and two at night per patient traMADoL (Ultram) 50 mg tablet Take 50 mg by mouth every 6 hours as needed for Pain. Takes once a day 04/07/2024 celecoxib (CeleBREX) 200 mg Capsule daily. 09/25/2020 04/07/2024 UNABLE TO FIND 3 times daily. Med Name: *Restivin for Restless Leg Syndrome* 04/07/2024 MAGNESIUM ORAL Take by mouth daily. *[place] Liquid form* 04/07/2024 omeprazole (PriLOSEC) 20 mg Capsule, Delayed Release(E.C.) Take 40 mg by mouth daily. 03/30/2024 documented as of this encounter Progress Notes * Mekhi Joseph RN - 02/02/2024 10:59 AM EDT Unable to contact patient to discuss her upcoming EGD and colonoscopy scheduled for 02/16/2024. Leftmessage asking her to contact the General Ambulatory RN. Past Medical History: Cardiac History Diabetic History No QUINCY COPD/severe asthma Yes Any concerns with the ability to lie flat with or without breathing difficulty Home Oxygen Psychological Co-morbidities COPD, GERD, Hypoxia w/sleep, DDD lumbar Current height and weight 5' 1 180 lbs. BMI > 40 [] IV Drug Abuse Alcohol drinks/week: Recommend IVCS or Anesthesia: Anesthesia Review med instructions for procedure Anesthesia education If the patient is unable to self-consent, plan of action: Name of the person who can consent Phone number if person not present on the day of the procedure documented in this encounter H&P Notes * Sai Grimaldo MD - 02/16/2024 7:28 AM EDT Patient Name: Mallorie Burgess Patient Age: 73 y.o. Birthdate: 1950 Admit date: 02/16/2024 Attending Physician: Sai Grimaldo MD Gastroenterology & Hepatology Pre-Procedure History and Physical Planned Procedure: EGD: Colonoscopy: Indication: bloating, abdominal pain Screening colonoscopy Patient Active Problem List Diagnosis Code DDD (degenerative disc disease), lumbar M51.36 Low back pain, non-specific M54.50 Spondylosis of lumbar region without myelopathy or radiculopathy M47.816 COPD (chronic obstructive pulmonary disease) J44.9 Gastric outlet obstruction K31.1 Gastroesophageal reflux disease K21.9 Mixed stress and urge urinary incontinence N39.46 Nicotine dependence F17.200 Prediabetes R73.03 Anxiety disorder F41.9 Chronic pain disorder G89.4 Claustrophobia F40.240 Diarrhea R19.7 Excessive daytime sleepiness G47.19 History of pyloric channel ulcer Z87.19 Hyponatremia E87.1 Hypoxemia associated with sleep G47.36 Insomnia G47.00 Lumbosacral radiculopathy M54.17 Overweight E66.3 Peptic ulcer disease K27.9 Pyloric stenosis K31.1 Restless legs G25.81 Right hip pain M25.551 SOB (shortness of breath) on exertion R06.02 Tobacco abuse Z72.0 Medications: Reviewed in EDH No Known Allergies Social History/Family History: Reviewed in EDH. No changes Exam: Patient Vitals for the past 24 hrs: Temp Pulse Resp BP SpO2 O2 Flow Rate (L/min) O2 Device 02/16/24 0715 36.6 ??C (97.8 ??F) 83 16 -- 96 % 3 L/min NC 02/16/2419 -- -- -- 107/69 -- -- -- GEN: NAD, AAOX3 HEENT: NC/AT dryMM, anicteric Chest: CTAB Heart: RRR, nl s1, s2 Abdomen: normal bowel sounds, soft, non tender Assessment and Plan: Proceed with EGD: Colonoscopy: ASA Grade: ASA 3 - Patient with moderate systemic disease with functional limitations Mallampati: II (soft palate, uvula, fauces visible) Sedation plan: MAC Risks and benefits of the procedure were discussed with the patient. Risks discussed including bleeding, infection, reaction to anesthesia, perforation or other intraabdominal trauma, pancreatitis (if applicable), missing a cancer (if applicable) and/or other unforseen complication. Informed Consent signed by patient (or title insurance sales representative). documented in this encounter Plan of Treatment Upcoming Encounters Date Type Department Care Team (Late st Contact Info) Description 07/12/2024 8:00 AM [facility] Hospital Encounter XRay at [address] [place] [address] Eliane Peterson APRN [facility] [place] [address] Scheduled Procedures Name Priority Associated Diagnoses Date/Ti me INJECTION, FACET JOINT, W\FLUORO, LUMBAR, 2ND LEVEL (WRVU 1) Spondylosis of lumbar region without myelopathy or radiculopathy INJECTION, FACET JOINT, W\FLUORO, LUMBAR, SINGLE (WRVU 1.52) Spondylosis of lumbar region without myelopathy or radiculopathy documented as of this encounter Procedures Procedure Name Priority Date/Time Associated Diagnosis Comments SURGICAL PATHOLOGY Routine 02/16/2024 8: 20 AM EDT Encounter for colorectal cancer screening Colonoscopy, Remv Lesn, Snare ([id number]) 02/16/2024 7:40 AM EDT Bloating Encounter for colorectal cancer screening Upper GI Endoscopy, Diagnostic ([id number]) 02/16/2024 7:40 AM EDT Bloating Encounter for colorectal cancer screening UPPER GI ENDOSCOPY Routine 02/16/2024 7: 22 AM EDT COLONOSCOPY Routine 02/16/2024 7:21 AM EDT documented in this encounter Results * Surgical Pathology (02/16/2024 8:20 AM EDT) Case Report Surgical Pathology Report ? Case: [id number] ? Authorizing Provider: ??Sai Girmaldo MD ?? Collected: ? 02/16/2024 0820 ? Ordering [place]: ? [place] [facility] [place]: ?02/16/2024 1020 ? Pathologist: ? Kaushal Gonzalez MD ? Specimens: ?? A) - Colon, Ascending, polyps ascending colon < 5 mm, 10 mm ? B) - Colon, Rectum, polyps rectum x 2 ? C) - Colon, Sigmoid, polyps sigmoid colon x 2 ? 02/19/2024 1:03 PM EDT [facility] Final Diagnosis A. Colon, Ascending, polyps ascending colon < 5 mm, 10 mm Polypectomy/Polype ctomies: Tubular adenoma(s) (multiple fragments). B. Colon, Rectum, polyps rectum x 2 Polypectomy/Polype ctomies: Hyperplastic polyps. C. Colon, Sigmoid, polyps sigmoid colon x 2 Polypectomy/Polype ctomies: Hyperplastic polyps. CR-PX 02/19/2024 1:03 PM EDT [facility] Clinical Information A. Colon, Ascending, polyps ascending colon < 5 mm, 10 mm Polyp Encounter for colorectal cancer screening [Z12.11, Z12.12] B. Colon, Rectum, polyps rectum x 2 Polyp Encounter for colorectal cancer screening [Z12.11, Z12.12] C. Colon, Sigmoid, polyps sigmoid colon x 2 Polyp Encounter for colorectal cancer screening [Z12.11, Z12.12] 02/19/2024 1:03 PM EDT [facility] Gross Description A. Colon, Ascending, polyps ascending colon < 5 mm, 10 mm. A - Labeled/Fixative: Colon, ascending, polyps, formalin. Quantity/Size: Multiple, ranging from 0.4 to 1.2 cm greatest dimension. Tissue Description: Soft, katz-pink, fragmented tissues. Sections/Processin g: Submitted in toto in 7 cassettes as follows: A1-A2: 1 polyp, inked and serially sectioned A3: 2 polyps, differentially inked; 1 trisected, the other bisected A4: 1 polyp, inked black and serially sectioned A5: 2 polyps, differentially inked; 1 quadrisected the other intact A6: Differentially inked and kept intact A7: Remaining fragments B. Colon, Rectum, polyps rectum x 2. B - Labeled/Fixative: Colon, rectum, polyps x 2, formalin. Quantity/Size: Three, ranging from 0.3 to 0.9 cm. Tissue Description: Soft, katz tissues. Sections/Processin g: Entirely submitted in 2 cassettes as follows: B1: 1 polyp, inked blue and serially sectioned B2: 2 polyps, differentially inked; 1 inked blue and bisected, the other inked black and Intact cmk C. Colon, Sigmoid, polyps sigmoid colon x 2. C - Labeled/Fixative: Polyp sigmoid colon x 2, formalin. Quantity/Size: Two, 0.9 x 0.6 x 0.5 cm and 0.6 x 0.4 x 0.4 cm. Tissue Description: Soft, katz-pink polypoid tissues. Sections/Processin g: Entirely submitted in 2 cassettes as follows: C1: 1 polyp, inked and quadrisected C2: 1 polyp, inked and bisected cmk 02/19/2024 1:03 PM EDT [facility] Result Note Routine 02/19/2024 1:03 PM EDT [facility] Tissue ASCENDING COLON STRUCTURE / Unknown 02/16/2024 8:20 AM EDT 02/16/2024 10:20 AM EDT Comment:Pre-op diagnosis: EGD: bloating [place]: colorectal screening Tissue specimen (specimen) COLON AND RECTUM, CS / Unknown 02/16/2024 8:37 AM EDT 02/16/2024 10:21 AM EDT Comment:Pre-op diagnosis: EGD: bloating [place]: colorectal screening Tissue specimen (specimen) SIGMOID COLON STRUCTURE / Unknown 02/16/2024 8:41 AM EDT 02/16/2024 10:21 AM EDT Comment:Pre-op diagnosis: EGD: bloating [place]: colorectal screening Sai Grimaldo MD PATHOLOGY/CYTOLOG Y ORDERABLES [facility] [place] [address] * UPPER GI ENDOSCOPY (02/16/2024 7:22 AM EDT) UPPER GI ENDOSCOPY [facility] Endoscopy Procedure Date: 02/16/2024 7:22 AM ? Patient Name: Mallorie Burgess ? N: [id number] ? Date of : 1950 ? Age: 73 ? Order #: [id number] ? Instrument Name: [id number] ? Procedure: ? Upper GI endoscopy Indications: ? Abdominal bloating Providers: ? Sai Grimaldo MD, [place] R. ? RUPA Wade, Gavi Pang MD: ?Dilan Hernandez MD Requesting Provider: ?? Eliane Peterson Medicines: ? Monitored Anesthesia Care Complications: ? No immediate complications. Procedure: ? Pre-Anesthesia Assessment: ? - Prior to the procedure, a History ? and Physical was performed, and ? patient medications and allergies ? were reviewed. The patient's ? tolerance of previous anesthesia ? was also reviewed. The risks and ? benefits of the procedure and the ? sedation options and risks were ? discussed with the patient. All ? questions were answered, and ? informed consent was obtained. ? Prior Anticoagulants: The patient ? has taken no anticoagulant or ? antiplatelet agents. ASA Grade ? Assessment: III - A patient with ? severe systemic disease. After ? reviewing the risks and benefits, ? the patient was deemed in ? satisfactory condition to undergo ? the procedure. ? The procedure, indications, ? benefits, risks and alternatives ? were explained to the patient. ? Specifically discussed were ? potential complications including, ? but not limited to, bleeding, ? perforation, infection, missing a ? cancer, and adverse medication ? reactions. The Endoscope was ? introduced through the mouth, and ? advanced to the afferent and ? efferent jejunal loops The upper GI ? endoscopy was accomplished without ? difficulty. The patient tolerated ? the procedure well. ? Findings: ? The examined esophagus was normal. ? The Z-line was regular and was found 36 cm from the ? incisors. ? A small (2cm) sliding hiatal hernia was found. The ? hiatal narrowing was 38 cm from the incisors. ? Evidence of a patent Billroth II gastrojejunostomy ? was found. The distal stomach/antrum and pylorus ? remains. The pyloric channel is severely stenosed and ? cannot be traversed. ? The gastrojejunal anastomosis was characterized by ? healthy appearing mucosa. This was traversed. The ? efferent limb was examined. The afferent limb was ? examined. The duodenal bulb and pylorus were ? visualized retrograde. ? Moderate Sedation: ? See Anesthesia Documentation Impression: ?- Normal esophagus. ? - Z-line regular, 36 cm from the ? incisors. ? - Small sliding hiatal hernia. ? - Patent Billroth II ? gastrojejunostomy was found, ? characterized by healthy appearing ? mucosa. ? - The distal stomach/antrum and ? pylorus remains. The pyloric ? channel is severely stenosed and ? cannot be traversed. ? - No specimens collected. Recommendation: ?- Follow an antireflux regimen. ? - Recommend small meals and ? avoiding eating before lying down. ? Attending Participation: ? I personally performed the entire procedure. ? Dr. Eldon Grimaldo _ Sai Grimaldo MD 02/16/2024 8:50:36 AM Number of Addenda: 0 Note Initiated On: 02/16/2024 7:22 AM PROVATION 02/16/2024 7:22 AM EDT Dilan Hernandez MD GENERAL SURGICAL ORD ERABLES PROVATION * COLONOSCOPY (02/16/2024 7:21 AM EDT) COLONOSCOPY [facility] Endoscopy Procedure Date: 02/16/2024 7:21 AM ? Patient Name: Mallorie Burgess ? Date of : 1950 ? Age: 73 ? Order #: [id number] ? Instrument Name: [id number] ? Procedure: ? Colonoscopy Indications: ? Screening for colorectal malignant ? neoplasm Patient Profile: ? This is a 73 year old female. Providers: ? Sai Grimaldo MD, Indio Garcia ? RUPA Wade, Gavi Phan Referring MD: ?Dilan Hernandez MD Requesting Provider: ?? Eliane Peterson Medicines: ? Monitored Anesthesia Care Complications: ? No immediate complications. Procedure: ? Pre-Anesthesia Assessment: ? - Prior to the procedure, a History ? and Physical was performed, and ? patient medications and allergies ? were reviewed. The patient's ? tolerance of previous anesthesia ? was also reviewed. The risks and ? benefits of the procedure and the ? sedation options and risks were ? discussed with the patient. All ? questions were answered, and ? informed consent was obtained. ? Prior Anticoagulants: The patient ? has taken no anticoagulant or ? antiplatelet agents. ASA Grade ? Assessment: III - A patient with ? severe systemic disease. After ? reviewing the risks and benefits, ? the patient was deemed in ? satisfactory condition to undergo ? the procedure. ? The procedure, indications, ? benefits, risks and alternatives ? were explained to the patient. ? Specifically discussed were ? potential complications including, ? but not limited to, bleeding, ? perforation, infection, missing a ? cancer, and adverse medication ? reactions. The patient was placed ? in the left lateral decubitus ? position, and a digital rectal exam ? was performed. The Colonoscope was ? inserted in the anus and under ? direct visualization, advanced to ? the terminal ileum, with ? identification of the appendiceal ? orifice and IC valve. Careful ? inspection was made as the ? colonoscope was withdrawn. The ? colonoscopy was performed without ? difficulty. The patient tolerated ? the procedure well. The quality of ? the bowel preparation was evaluated ? using the BBPS (Cloud Direct Bowel ? Preparation Scale) with scores of: ? Right Colon = 2 (minor amount of ? residual staining, small fragments ? of stool and/or opaque liquid, but ? mucosa seen well), Transverse Colon ? = 3 (entire mucosa seen well with ? no residual staining, small ? fragments of stool or opaque ? liquid) and Left Colon = 2 (minor ? amount of residual staining, small ? fragments of stool and/or opaque ? liquid, but mucosa seen well). The ? total BBPS score equals 7. The ? quality of the bowel preparation ? was excellent. The terminal ileum, ? ileocecal valve, appendiceal ? orifice, and rectum were ? photographed. Scope withdrawal time ? was 14 minutes. ? Findings: ? Hemorrhoids were found on perianal exam and ? retroflexion. ? Scattered diverticula were found in the sigmoid ? colon, descending colon and ascending colon. ? The terminal ileum appeared normal. ? A 3 mm polyp was found in the ascending colon. The ? polyp was sessile. The polyp was removed with a cold ? snare. Resection and retrieval were complete. ? A 14 mm polyp was found in the ascending colon. The ? polyp was sessile. The polyp was removed with a cold ? snare. Resection and retrieval were complete. ? A 9 mm polyp was found in the sigmoid colon. The ? polyp was sessile. The polyp was removed with a cold ? snare. Resection and retrieval were complete. ? A 5 mm polyp was found in the sigmoid colon. The ? polyp was semi-sessile. The polyp was removed with a ? cold snare. Resection and retrieval were complete. ? Two sessile polyps were found in the rectum. The ? polyps were 4 to 5 mm in size. These polyps were ? removed with a cold snare. Resection and retrieval ? were complete. ? No additional abnormalities were found on ? retroflexion. ? Moderate Sedation: ? See Anesthesia Documentation Impression: ?- Hemorrhoids found on perianal ? exam. ? - Diverticulosis in the sigmoid ? colon, in the descending colon and ? in the ascending colon. ? - The examined portion of the ileum ? was normal. ? - One 3 mm polyp in the ascending ? colon, removed with a cold snare. ? Resected and retrieved. ? - One 14 mm polyp in the ascending ? colon, removed with a cold snare. ? Resected and retrieved. ? - One 9 mm polyp in the sigmoid ? colon, removed with a cold snare. ? Resected and retrieved. ? - One 5 mm polyp in the sigmoid ? colon, removed with a cold snare. ? Resected and retrieved. ? - Two 4 to 5 mm polyps in the ? rectum, removed with a cold snare. ? Resected and retrieved. Recommendation: ?- Consider a repeat colonoscopy in ? 3 years for surveillance. ? Attending Participation: ? I personally performed the entire procedure. ? Dr. Eldon Grimaldo ___ Sai Grimaldo MD 02/16/2024 8:46:03 AM Number of Addenda: 0 Note Initiated On: 02/16/2024 7:21 AM PROVATION 02/16/2024 7:21 AM EDT Dilan Hernandez MD GENERAL SURGICAL ORD ERABLES PROVATION documented in this encounter Visit Diagnoses Diagnosis Encounter for colorectal cancer screening Special screening for malignant neoplasms, colon documented in this encounter Administered Medications Inactive Administered Medications - up to 3 most recent administrations Medication Order MAR Action Action Date Dose Rate Site lactated ringers infusion 100 mL/hr, Intravenous, CONTINUOUS, Starting on Thu02/16/24 at 0730, Until Thu02/16/24 at 0920, Endoscopy (Day of Procedure) Restarted 02/16/2024 7:40 AM EDT New Bag 02/16/2024 7:26 AM EDT 100 mL/hr 100 mL/hr documented in this encounter Active and Recently Administered Medications Times are shown in EDT. Continuous Medication Order 02/14/2024 02/15/2024 02/16/2024 lactated ringers infusion (CANCELED) 100 mL/hr, Intravenous, CONTINUOUS, Starting on Thu02/16/24 at 0730, Until Thu02/16/24 at 0920, Endoscopy (Day of Procedure) 0726 (New Bag - Prov ider: Twyla Carrasco RN)0739 (Paused - Provider: Merritt Lozoya CRNA - Comment: Switch to gravity)0740 (Restarted - Provider: Merritt Lozoya CRNA)0839 (Stopped - Provider: Merritt Lozoya CRNA) documented in this encounter Care Teams Sales Operations Coordinator Relationship Specialty Start Date End Date Dilan Hernandez MD [address] [place] [address] [place] [phone] PCP - General 04/30/10 documented as of this encounter
--- OUTSIDE RECORDS SUMMARY | 2024-07-07 20:06 | XMS_ITS | Encounter Summary ---
Author Organization Formerly [facility], [facility]–1983 Address [facility] [place] [address] Care Team Providers Care Leave Specialist Name Role Phone Dilan Hernandez MD Primary Care Provider [phone] Encounter Details Date Type Department Care Team (Latest Contact Info) Description 03/30/2024 Travel Social History Tobacco Use Types Packs/Day [...] st Contact Info) Description 07/12/2024 8:00 AM [facility] Hospital Encounter XRay at [address] [place] [address] Eliane Peterson APRN [facility] [place] [address] Scheduled Procedures Name Priority Associated Diagnoses Date/Ti me INJECTION, FACET JOINT, W\FLUORO, LUMBAR, 2ND LEVEL (WRVU 1) Spondylosis of lumbar region without myelopathy or radiculopathy INJECTION, FACET JOINT, W\FLUORO, LUMBAR, SINGLE (WRVU 1.52) Spondylosis of lumbar region without myelopathy or radiculopathy documented as of this encounter Visit Diagnoses Not on filedocumented in this encounter Care Teams Leave Specialist Relationship Specialty Start Date End Date Dilan Hernandez MD [address] [place] [address] [place] [phone] PCP - General 04/30/10 documented as of this encounter
--- OUTSIDE RECORDS SUMMARY | 2024-07-07 20:06 | XMS_ITS | Encounter Summary ---
Author Organization [facility] [place] [address] Care Team Providers Care Flash Designer Name Role Phone Dilan Hernandez MD Primary Care Provider [phone] Reason for Referral * Consultation (Routine) - Closed Specialty Diagnoses / Procedures Referred By Contac t Referred To Contact Cardiology Diagnoses Heart failure, unspecified HF chronicity, unspecified heart failure type S/P D/C - HFpEF EF 65%. PMH COPD, active tobacco use, GERD, anxiety, hyponatremia, pud. Dilan Hernandez MD [address] [place] [address] [place] [address] [facility] [address] [place] [phone] Referral ID Status Reason Start Date Expiration Date V isits Requested Visits Authorized [id number] Closed Consult, Test & Treat 02/15/2024 02/14/2025 1 1 Encounter Details Date Type Department Care Team (Latest Contact Info) Description 02/15/2024 Transcribe Orders eDH Incoming Referrals [phone] Dilan Hernandez MD [address] [place] [address] [place] [address] Heart failure, unspecified HF chronicity, unspecified heart failure type Social History Tobacco Use Types Packs/Day Years Used Date Smoking Tobacco: Every Day Cigarettes Smokeless Tobacco: Never Alcohol Use Standard Drinks/Week Comments Yes 1 (1 standard drink = 0.6 oz pur e alcohol) 1 drink a day [facility] Inpatient Questions Answer Date Recorded Does Anyone [...] st Contact Info) Description 07/12/2024 8:00 AM [facility] Hospital Encounter XRay at [address] [place] [address] [place] [address] Scheduled Procedures Name Priority Associated Diagnoses Date/Ti me INJECTION, FACET JOINT, W\FLUORO, LUMBAR, 2ND LEVEL (WRVU 1) Spondylosis of lumbar region without myelopathy or radiculopathy INJECTION, FACET JOINT, W\FLUORO, LUMBAR, SINGLE (WRVU 1.52) Spondylosis of lumbar region without myelopathy or radiculopathy Scheduled Referrals Name Type Priority Associated Diagnoses Orde r Schedule Referral to Cardiology Outpatient Referral Routine Heart failure, unspecified HF chronicity, unspecified heart failure type Ordered: 02/15/2024 documented as of this encounter Visit Diagnoses Diagnosis Heart failure, unspecified HF chronicity, unspecified heart failure type documented in this encounter Care Teams Flash Designer Relationship Specialty Start Date End Date Dilan Hernandez MD [address] [place] [address] [place] [address] PCP - General 04/30/10 documented as of this encounter
--- OUTSIDE RECORDS SUMMARY | 2024-07-07 20:06 | XMS_ITS | Encounter Summary ---
Author Organization Formerly [facility] [place] [address] Care Team Providers Care Farm Appraiser Name Role Phone Dilan Hernandez MD Primary Care Provider [phone] Reason for Visit * Consultation (Urgent) - Closed Specialty Diagnoses / Procedures Referred By Albert castaneda Referred To Contact Pulmonology Diagnoses Chronic obstructive pulmonary disease, unspecified COPD type Dilan Hernandez MD [address] [place] [phone] [facility] [address] [place] [phone] Referral ID Status Reason Start Date Expiration Date V isits Requested Visits Authorized [id number] Closed Consult, Test & Treat PCP Updated and/or Approved 10/16/2023 04/15/2024 6 6 Encounter Details Date Type Department Care Team (Late st Contact Info) Description 03/30/2024 10:00 AM EDT Office [place] [address] Zita He MD [facility] [place] [address] Chronic obstructive pulmonary disease, unspecified COPD type; Supplemental oxygen dependent; Cigarette nicotine dependence without complication Social History Tobacco Use Types Packs/Day Years Used Date Smoking Tobacco: Every Day Cigarettes Smokeless Tobacco: Never Alcohol Use Standard Drinks/Week Comments Yes 7 (1 standard drink = 0.6 oz pur e alcohol) 1 drink a day [facility] Inpatient Questions Answer Date Recorded [...] Sign Reading Time Taken Comments Blood Pressure 109/68 03/30/2024 10:16 AM EDT Pulse 85 03/30/2024 10:16 AM EDT Temperature 36.1 ??C (96.9 ??F) 03/30/2024 10:16 AM E DT Respiratory Rate 16 03/30/2024 10:16 AM EDT Oxygen Saturation 91% 03/30/2024 10:16 AM EDT Inhaled Oxygen Concentration - - Weight 76 kg (167 lb 8.8 oz) 03/30/2024 10:16 AM EDT Height 148.3 cm (4' 10.39) 03/30/2024 10:16 AM EDT Body Mass Index 34.56 03/30/2024 10:16 AM EDT documented in this encounter Patient Instructions * Patient Instructions* Zita He MD - 03/30/2024 10:00 AM EDT Start the azithromycin pill - take it on Thursday, Thursday and Thursday. Over the next few months think about whether this decreases the amount of mucous in your lungs, your cough or wheezing or shortness of breath. Continue your breztri inhaler. Continue the prednisone every day. We need to check your heart rhythm with an EKG in a few weeks. I am ordering this to be scheduled on Apr 13 when you are back at [facility]. documented in this encounter Progress Notes * Zita He MD - 03/30/2024 10:00 AM EDT Images from the original note were not included. [facility] Section of Pulmonary and Critical Care Medicine Outpatient Consultation Date of Encounter: 03/30/2024 Reason for Evaluation: Ms. Mallorie Burgess returns to the pulmonary clinic for follow-up of COPD. I independently interviewed the patient, have examined the patient and have reviewed available records. Dear Dilan Hernandez MD, As you know, Mallorie Burgess is a 74 y.o. female with COPD, tobacco use, previously evaluated in pulmonary clinic by my colleague in December 2023. At that time she was on breztri inhaler, albuterol PRN, and on supplemental oxygen at night and as-needed during the day, and she was started on chronic prednisone at [address] mg daily. OSH chest CT imaging was requested (not previously available), and PFTs were planned with f/u visit. Ms. Burgess reports that she has been dealing with fluctuating dyspnea for the past 1.5 years, and isreally hoping this can get better. She notes that some days she has only a little shortness of breath described as getting winded with significant exertion (like moving furniture.) On a worse day shegets winded walking down a hallway in her house and has to stop activity and use supplemental oxygen for dyspnea, has very limited activity those days. She measures her oxygen sometimes when short ofbreath and the lowest she has measured is 88% on room air even when short of breath, more commonly she's 92- 96. She uses [place] O2 3-4L during the day when short of breath, and 3L consistently at night when sleeping. She notes chest congestion and sputum production got better after initiation of diuresis for volumeoverload. She still has some sputum production, described as clear, small volume, never hemoptysis.She uses a flutter valve daily to help clear the sputum. She has wheezing sometimes, more often when she feels mucous in her chest, or when smoking cigarettes. She denies chest pain other than when she has heartburn (and that responds to tums.) She denies cough other than when clearing sputum. She feels the breztri is very helpful, has significantly reduced her wheezing and improved her shortness of breath. Takes consistently, no side effects if she rinses afterwards. Using albuterol 2-4 times most days, and it does help. She uses duonebs also 3-4 times some days. She is still taking prednisone 10 mg every day, not sure if it's helped to be on it chronically. Has needed prednisone burst dosing twice in past 4 months after starting the prednisone daily. She was hospitalized for volume overload and orthopnea in January, discharged on torsemide which ivan is still helping. She is working with her PCP on additional titration. Spring/fall allergies can trigger more wheezing and cough. She is using nicotine patches now and finds they are helpful, she is smoking less than before, still around a pack a day. She is using the 14 mcg patches. She has a dog. No bird exposure. She denies any additional inhalational exposures. She previously worked at [employer], and in [employer]. Now retired. Her mom had COPD, and her dad had lung cancer (diagnosed around age 81; former smoker, had occupational risk for lung cancer.) Current Medications at Start of Encounter: Outpatient Medications Prior to Visit Medication Sig Dispense Refill torsemide (Demadex) 20 mg tablet daily. metFORMIN (Glucophage) 500 mg tablet Take 500 mg by mouth 2 times daily (with meals). spironolactone (Aldactone) 25 mg tablet Take 0.5 tablets by mouth Daily at Noon. Ozempic 0.25 mg or 0.5 mg (2 mg/3 mL) Pen Injector Inject 0.25 mg subcutaneously. ofxbsuxond-glkfyjgexpmafp-bwrvjwukgz (Breztri Aerosphere) 160-9-4.8 mcg/actuation inhaler (HFA) 2 puffs, Inhale, BID, rinse mouth and throat after use, # 5.9 g, 0 Refill(s) traMADoL (Ultram) 50 mg tablet Take 50 mg by mouth every 6 hours as needed for Pain. Takes once a day cephALEXin (Keflex) 250 mg capsule Take 1 capsule by mouth Daily at Noon. celecoxib (CeleBREX) 200 mg Capsule daily. UNABLE TO FIND 3 times daily. Med Name: *Restivin for Restless Leg Syndrome* MAGNESIUM ORAL Take by mouth daily. *[place] Liquid form* omeprazole (PriLOSEC) 20 mg Capsule, Delayed Release(E.C.) Take 40 mg by mouth daily. ferrous sulfate 324 mg (65 mg iron) Tablet, Delayed Release (E.C.) Take 324 mg by mouth every otherday. escitalopram (Lexapro) 10 mg Tablet Take 10 mg by mouth Daily. PROAIR HFA 90 mcg/actuation HFA Aerosol Inhaler INHALE TWO PUFFS BY MOUTH EVERY 4 HOURS NEEDED pramipexole (MIRAPEX) 1 mg Tablet Take 1.5 mg by mouth 2 times daily. No facility-administered medications prior to visit. Review of Systems: A focused ROS was completed and was positive as noted in HPI, and otherwise negative. Physical Examination: BP 109/68 Pulse 85 Temp 36.1 ??C (96.9 ??F) (Temporal) Resp 16 Ht 148.3 cm (4' 10.39) Wt76 kg (167 lb 8.8 oz) SpO2 91% BMI 34.56 kg/m?? NAD, alert, conversational and comfortable, MMM, neck supple, RRR without murmur, normal WOB, breath sounds a little diminished but no focal crackles or wheezing, no significant edema, easily ambulatory Pulmonary Function Test Results: Date FVC FEV1 Ratio TLC RV RV/TLC ERV DLCO 6MWT 03/30/2024 1.66 L (73% pred) 0.95 L (54% pred) 57 50% pred I personally reviewed flow-volume loops and other tests. Results are most consistent with moderately severe airflow obstruction, moderately impaired diffusing capacity. Labs, Microbiology and Imaging: I personally reviewed relevant laboratory, microbiologic and radiology results which were significant for: CXR 02/08/2024: hyperexpanded, elevated left hemidiaphragm CTA chest 01/27/2024: negative for PE; there is emphysema Immunization History: Flu: COVID-19: has had primary series and some boosters Pneumonia: Impression and Recommendations: Mallorie Burgess is a 74 y/o woman with COPD, ongoing tobacco use, nocturnal supplemental oxygen requirement, with fluctuating dyspnea, multiple recent acute respiratory flares requiring prednisone anddaily chest congestion consistent with GOLD stage C COPD. She is currently on chronic low dose prednisone, unclear how much benefit she is deriving from this, though bronchodilators have provided significant benefit. For uncontrolled COPD I recommend a trial of chronic azithromycin for anti- inflammatory effect. We will try this now, with Qtc check in a few weeks. If she has a significant improvement with azithromycin we will likely try stopping the prednisone as she has not perceived significant benefit from this therapy. We discussed the extent to which ongoing cigarette smoking may be contributing to her respiratory symptoms, and I counseled her on additional medication management for cessation. She is considering cutting down further, and should use a higher intensity patch (the 21 mcg patch) to help with this. She I currently using supplemental oxygen at night (as prescribed) and PRN during the day for dyspnea. We can reassess need for oxygen in the future after we optimize her respiratory status. Summary Recommendations: - continue breztri 2 puffs twice daily - start trial of chronic azithromycin 500 mg three times weekly --- EKG ordered to be done in a couple weeks to f/u Qtc on azithromycin - continue prednisone 10 mg daily while assessing impact of azithromycin - continue albuterol MDI PRN, duonebs PRN - continue nocturnal oxygen at this time, on 3LPM, will plan to reassess once optimized - ashley/DLCO with next visit Follow-up with in-office visit in 3 months Thank you for involving me in Ms. Burgess's care. Please feel free to contact me with any further questions or concerns. I personally spent 30 minutes of this encounter with the patient discussing their pulmonary diseaseand treatment recommendations as outlined in my assessment and plan above. This visit involved a total of 40 minutes of clinical time on day of visit. I provided medical care services that are part of ongoing care for the patient's serious/complex condition. Zita He MD [facility] [phone] Dept: [phone] Loc: [phone] documented in this encounter Plan of Treatment Upcoming Encounters Date Type Department Care Team (Late st Contact Info) Description 07/12/2024 8:00 AM EST Hospital Encounter XRay at [address] [place] [phone] [place] [address] Scheduled Orders Name Type Priority Associated Diagnoses Orde r Schedule EKG 12 Lead ECG Routine Chronic obstructive pulmonary disease, unspecified COPD type Expected: 04/13/2024, Expires: 10/13/2024 Common Pulmonary Function Test PFT Routine Chronic obstructive pulmonary disease, unspecified COPD type Expected: 06/30/2024, Expires: 12/30/2024 Scheduled Procedures Name Priority Associated Diagnoses Date/Ti me INJECTION, FACET JOINT, W\FLUORO, LUMBAR, 2ND LEVEL (WRVU 1) Spondylosis of lumbar region without myelopathy or radiculopathy INJECTION, FACET JOINT, W\FLUORO, LUMBAR, SINGLE (WRVU 1.52) Spondylosis of lumbar region without myelopathy or radiculopathy documented as of this encounter Visit Diagnoses Diagnosis Chronic obstructive pulmonary disease, unspecified COPD type Supplemental oxygen dependent Dependence on supplemental oxygen Cigarette nicotine dependence without complication Tobacco use disorder documented in this encounter Care Teams Farm Appraiser Relationship Specialty Start Date End Date Dilan Hernandez MD [address] [place] [address] [place] [address] PCP - General 04/30/10 documented as of this encounter
--- OUTSIDE RECORDS SUMMARY | 2024-07-07 20:06 | XMS_ITS | Encounter Summary ---
Author Organization [facility] [place] [address] Care Team Providers Care Cook Helper Juice Name Role Phone Dilan Hernandez MD Primary Care Provider [phone] Reason for Referral * Consultation (Routine) - Closed Specialty Diagnoses / Procedures Referred By Contac t Referred To Contact [facility] Sp[facility] Center Diagnoses Spinal stenosis of lumbar region with neurogenic claudication Empowered Relief - Tabatha Ruelas KILN DRAWER [facility] [place] [address] [facility] [place] [address] Referral ID Status Reason Start Date Expiration Date V isits Requested Visits Authorized [id number] Closed Consult, Test & Treat 02/19/2024 02/18/2025 1 1 * Physical Therapy (Routine) - Authorized Specialty Diagnoses / Procedures Referred By Contac t Referred To Contact Physical Therapy Diagnoses Spinal stenosis of lumbar region with neurogenic claudication Tabatha Fernández APRN [facility] [place] [address] Unknown None Referral ID Status Reason Start Date Expiration Date Visits Requested Visits Authorized [id number] Authorized Evaluate and Treat Non [facility] 02/19/2024 08/17/2024 12 12 Reason for Visit * Reason Comments Follow-up Center lower back pa in * Consultation (Routine) - Authorized Specialty Diagnoses / Procedures Referred By Albert castaneda Referred To Contact Pain and Spine Center Diagnoses Low back pain, unspecified back pain laterality, unspecified chronicity, unspecified whether sciatica present lumbar stenosis/ [place] hip pain/ MRI 12/28/23 in [employer] [employer] Dilan Hernandez MD [address] [place] [address] [place] [address] [facility] [place] [address] Referral ID Status Reason Start Date Expiration Date Visits Requested Visits Authorized [id number] Authorized Consult, Test & Treat PCP Updated and/or Approved 10/16/2023 10/15/2024 6 6 Encounter Details Date Type Department Care Team (Late st Contact Info) Description 02/19/2024 1:00 PM EDT Office Visit [facility] [place] [phone] Tabatha Fernández APRN [facility] [place] [address] Spinal stenosis of lumbar region with neurogenic claudication (Primary Dx) Social History Tobacco Use Types Packs/Day Years Used Date Smoking Tobacco: Every Day Cigarettes Smokeless Tobacco: Never Alcohol Use Standard Drinks/Week Comments Yes 7 (1 standard drink = 0.6 oz pur e alcohol) 1 drink a day [facility] Inpatient Questions Answer Date [...] Sign Reading Time Taken Comments Blood Pressure 124/70 02/19/2024 12:52 PM EDT Pulse 89 02/19/2024 12:52 PM EDT Temperature - - Respiratory Rate - - Oxygen Saturation 93% 02/19/2024 12:52 PM EDT Inhaled Oxygen Concentration - - Weight 79.4 kg (175 lb) 02/19/2024 12:52 PM EDT Height 154.9 cm (5' 1) 02/19/2024 12:52 PM EDT Body Mass Index 33.07 02/19/2024 12:52 PM EDT documented in this encounter Patient Instructions * Patient Instructions* Tabatha Fernández, KILN DRAWER - 02/19/2024 1:00 PM EDT I have ordered the following injection plan for you: [x] Lumbar Epidural Steroid Injection - Interlaminar L5-S1 Can I eat and/or drink prior to my procedure? You are not required to fast for this procedure. Labwork [x] You do not require any lab work for your procedure. As a reminder, you will need to hold the following medications: No Multi-vitamins and all other supplements - hold for 7 days prior to your injection Scheduling: Our scheduling team will work on prior authorization from your insurance provider and will call youfor scheduling. If you have questions about scheduling your injection, please call the scheduling team at . Please call the office [phone] and ask to speak with a nurse if any of the following occurs within 14 days prior to your injection/procedure: [x]You have begun taking steroids or antibiotics [x]You have had any changes in your health status or medications [x]You have started taking a blood thinner Referring Mallorie to Empowered Relief Because Mallorie is experiencing pain that negatively impacts the quality of Their life, Empowered Relief is a 2.5 hour single-session evidence and skill-based class developed to help equip patients with the tools they need to help reduce pain. It is likely that Mallorie would benefit from this intervention. Empowered Relief is intended to increase Mallorie's ability to manage pain, decrease emotional distress, and complement response to medical procedures. Symptom management can be enhanced through mindfulness and relaxation training. Participation in the program will provide them with better strategiesfor coping with any remaining pain through a self-management approach. Overall, this active treatment approach should help Mallorie resume valued activities, better manage pain, and improve quality of life. During the class, Mallorie will learn the following skills: 1. How pain is processed in the brain and how to best manage it. 2. How to use a guided relaxation exercise to reduce the pain and stress response. Mallorie came awayfrom the class with a binaural audiofile with a guided relaxation exercise on it. Mallorie was encouraged to practice this relaxation exercise daily for at least 2 months (can taper to less frequently afterwards). 3. How to counteract their unhelpful pain thoughts, which can worsen pain, by practicing positive or neutral thought reframing. 4. How to develop and utilize a list of self-soothing actions which can be used to interrupt negative pain thoughts and the pain response. documented in this encounter Progress Notes * Tabatha Fernández APRN - 02/19/2024 1:00 PM EDT Images from the original note were not included. [facility] [place] [address] Phone: PAIN MANAGEMENT FOLLOW UP NOTE DATE OF VISIT 02/19/2024 Patient Mallorie Burgess 1950 REFERRING PROVIDER Dilan Hernandez MD [address] [place] [address] [place] [address] PRIMARY CARE PROVIDER Dilan Hernandez MD CHIEF COMPLAINT: Mallorie Burgess is a 73 y.o.female with Back pain, who is seen in consultation at the request of Dilan Hernandez MD [address] [place] [address] [place] [address]. for evaluation, recommendations, and management.The history is obtained from the patient, and I have reviewed medical records provided by the referring physician and located in the electronic medical record to fill in gaps in the patient's recollection of events, treatments and outcomes. Goal of visit: to discuss ? 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 She was in her usual state of health until February 29, 2020 when she had gastric surgery for about 45 minutes to an hour. Since then she has had increasing back pain. She has a history of herniated disc several years ago that responded well to a cervical epidural steroid injection. Since the she has noticed that the pain is in the center of her back and radiates out to either side the bad ache without sharp pains better if she keeps moving worse as it stops. She has been seeing her chiropractor but it has not really been helpful. She had an x-ray which she wants to review today. She has some numbness in the anterior posterior thighs. She also notices that sometimeswhen she is up walking she feels as if her legs are weak and will give out. She is hoping to have asteroid injection which she was found helpful in the past. The patient also notices that she laterally shifts to the right without thinking about it. Interval history updated 10/02/2020: The patient is here for follow-up. She schedule a [id number] follow-up visit we needed to do a physical exam. She previously has had back and upper thigh pain. She had an epidural steroid injectionwhich helped her back pain for about 2 days plus the evening of the procedure and while her thigh pain remains somewhat improved, her back pain is increasing again. She would like to be able to be very physically active she works and helps her daughter with some cleaning and would like to maintain her ability to do this. She has seen Ms. Barba for some exercises and has gotten some of those exercises but has been advised to keep as active as possible and walk despite the fact that she may havepain although she has not yet done this she does agree with the sentiment. She is here today to seeif there is anything else we might offer her. We are also going to review her MRI [id number] although we did look at it together online Updated interval history 12/13/2020: The patient is doing a telehealth visit with me. There is no physical exam associated with this and the patient understands this is a billable visit. She discusses that she had about 30 to 40% relief relief of her symptoms following the last injection and no more than that. She did have the radiofrequency lesioning procedures. She previously has had an epidural steroid injection but it was midline and not in the foramen. She is having mostly back pain but alsoreports significant anterior thigh pain with ambulation alleviated by sitting. She is wondering if she should see a surgeon. We discussed whether her back pain is the worst to her legs. She says the back pain is the worst but she feels that they are all tied together as she does not experience themseparately. Updated interval history 02/19/24: Mallorie Burgess presents today for follow up. She has back pain along with pain in her buttocks. She has not done PT. This pain has been present for 6-7 years. She is not aware of any inciting factors. 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 Since then, she has not had any recent interventions aside from her lumbar MBB from 11/2020 and anESI in 2020. Pain level is 8-9/10 with standing and walking, 2/10 with sitting. She notes some heaviness in her legs, and she generally is able to walk about a few yards. With this distance, she starts to develop lower back pain. She rests for about 2-3 minutes with relief, and she is more or less able to walk that distance again. Pain is worse with lifting. She has not taken any medications for other than cephalexin 250 mg daily for her chronic recurrent UTI. She took a course of oral prednisone for the past 4 days. Mallorie visited with an orthopedics surgeon in [place] who was not comfortable with proceeding with surgical intervention. 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 Re-staining and redoing kitchen, redid hardwood floors - CURRENT THERAPIES: PT exercises chiropractor Ibuprofen occasional , not supposed to PAST THERAPIES: tylenol PT HNP, had injections, helpful REVIEW OF SYSTEMS: Constitutional: denies fever, chills, cough, signs of infection,+ weight gain, nofatigue HEENT: Denies headaches, blurry/limited vision, photophobia, difficulty hearing, Cardiac:denies chest pain or pressure, lower extremity edema Lungs:SOB on exertion related to COPD GI: denies constipation or diarrhea, black tarry stool, loss of control; : denies frequency, urgency, hesitation, or incontinence Neuro: denies dizziness, numbness, seizures, tremors Muscle skeletal: denies use of ambulatory aide, falls, legs feels weak when walking, tends to lean to the right Skin: denies open sores or rashes Psychological/Mood: Ok Sleep: interrupted RELEVANT SOCIAL HISTORY: Lives with: Smokin.5ppd for 50 years Alcohol: present and past: no Illegal/prescription drug misuse past/present:no MEDICATIONS [facility] Prescription Monitoring Program was checked and no concerns were identified. Medications 02/19/24 1256 Medication Sig Taking? torsemide (Demadex) 20 mg tablet daily. Yes metFORMIN (Glucophage) 500 mg tablet Take 500 mg by mouth 2 times daily (with meals). Yes spironolactone (Aldactone) 25 mg tablet Take 0.5 tablets by mouth Daily at Noon. Yes Ozempic 0.25 mg or 0.5 mg (2 mg/3 mL) Pen Injector Inject 0.25 mg subcutaneously. Yes wcaiuovavh-vcqbqlnnokptxe-ibbwfdogzu (Breztri Aerosphere) 160-9-4.8 mcg/actuation inhaler (HFA) 2 puffs, Inhale, BID, rinse mouth and throat after use, # 5.9 g, 0 Refill(s) Yes cephALEXin (Keflex) 250 mg capsule Take 1 capsule by mouth Daily at Noon. Yes omeprazole (PriLOSEC) 20 mg Capsule, Delayed Release(E.C.) Take 40 mg by mouth daily. Yes ferrous sulfate 324 mg (65 mg iron) Tablet, Delayed Release (E.C.) Take 324 mg by mouth every otherday. Yes escitalopram (Lexapro) 10 mg Tablet Take 10 mg by mouth Daily. Yes PROAIR HFA 90 mcg/actuation HFA Aerosol Inhaler INHALE TWO PUFFS BY MOUTH EVERY 4 HOURS NEEDED Yes pramipexole (MIRAPEX) 1 mg Tablet Take 1.5 mg by mouth 2 times daily. Yes traMADoL (Ultram) 50 mg tablet Take 50 mg by mouth every 6 hours as needed for Pain. Takes once a day celecoxib (CeleBREX) 200 mg Capsule daily. UNABLE TO FIND 3 times daily. Med Name: *Restivin for Restless Leg Syndrome* MAGNESIUM ORAL Take by mouth daily. *Pachuta Liquid form* ADVERSE DRUG REACTIONS Allergies as of 02/19/2024 (No Known Allergies) MEDICAL HISTORY Past Medical History: Diagnosis Date COPD (chronic obstructive pulmonary disease) Pre-diabetes SURGICAL HISTORY Past Surgical History: Procedure Laterality Date COLON SURGERY bladder and colon ECTOPIC SURGERY OVARIAN CYST SURGERY PRO COLONOSCOPY, REMV LESN, SNARE N/A 02/16/2024 COLONOSCOPY, POLYPECTOMY, REMOVAL LESION BY SNARE (WRVU 4.57) [facility] END[facility] PRO UPPER GI ENDOSCOPY, DIAGNOSTIC N/A 02/16/2024 EGD, UPPER GI ENDOSCOPY (WRVU 2.09) performed by Sai Grimaldo MD at [facility] ENDOSCOPY TUBAL LIGATION FAMILY HISTORY No family history on file. Comments about ORT in relation to this patient: Opioid Risk Category: low risk 0-3 PHYSICAL EXAMINATION Wt & BMI By Encounter Date Flowsheet Row Office Visit from 02/19/2024 in [facility] at [facility] Admission (Discharged) from 02/16/2024 in Gastroenterology at [facility] Weight 79.4 kg (175 lb) 1 02/19/2024 1252 80.5 kg (177 lb 6.4 oz) 1 02/16/2024 0715 BMI 33.06 1 02/19/2024 1252 33.52 1 02/16/2024 0715 The patient walks with a and can walk on heels and toes. She has normal strength and sensation and reflexes. She has a positive Kemps maneuver bilaterally. Appearance/ Behavior Well groomed, good eye contact, relaxed, cooperative, normal speech, no acute distress, no involuntary movements Lungs Respirations unlabored Cardiovascular Bilateral lower extremities warm and dry Skin No rash, asymmetric hair loss, bruises, scars, swelling Musculoskeletal Inspection/Palpation/ Range of Motion/Facet Loading maneuvers Gait: Stooped posture; nonantalgic gait; No assistive device Heel: intact Toe: intact Tandem: intact Inspection: good alignment, no excessive curvature, shoulder and hip levels equal bilaterally; no skin breakdown ROM: intact Palpation: Lumbar spine, facet tenderness IG bursa: nontender GT bursa: nontender SI Joints: SIJ provocative tests: negative Kemps maneuver: negative SLR: negative Neuro Motor Strength Segment Muscle Action Bilateral Results C5 Detoid Shoulder abduction 5/5 C5 Biceps Elbow flexion 5/5 C6 Extensor carpi radialis Wrist extension 5/5 C7 Triceps Elbow extension 5/5 C8, T1 Hand intrinsics Grasp 5/5 L2-5, S 1 Gluteus medius Hip Adduction 5/5 L4-5, S1 Gluteus medius Hip Abduction 5/5 L2 Iliopsoas Hip flexion 5/5 L3 Quadriceps Knee extension 5/5 L4 Tibialis anterior Ankle Dorsiflexion 5/5 L5 Extensor hallucis Great toe extension 5/5 S1 Gastrocnemius Ankle Plantar flexion 5/5 Reflexes: Segment Tendon Bilateral C5 Biceps 2+ C6 Brachioradialis 2+ C7 Triceps 2+ Upper Coombs Neg L3-4 Patella 2+ S1 Ankle Absent Lower Babinski Down going Clonus Neg Sensory Exam: No sensory deficits noted in cervical, thoracic, lumbar dermatomes ASSESSMENT Mallorie Burgess is a 73 y.o. female who presents today for follow up for lumbar spinal stenosis. 1. Spinal stenosis of lumbar region with neurogenic claudication Referral to Physical Therapy SURGICAL CASE REQUEST: INJECTION, EPIDURAL, LUMBAR OR SACRAL (CAUDAL), [facility] Referral to Active Pain Care Services Plan: Plan/Recommendations: We reviewed etiology, predisposing factor(s), natural course, imaging results as well as treatment options including medications, physical therapy/exercise, therapeutic injections, and surgery. The risks, consequences, alternatives, and benefits of various treatment options were discussed with the patient in great detail. We have discussed and recommended the following: - Medications: No new prescription at this time. Patient will continue current medications. - Imaging: No new imaging is indicated at this time. - Physical therapy/modalities/DME: Patient would benefit from Physical Therapy and a referral was provided for the patient. Referral sent for aquatic therapy - Interventional/Surgical procedures: Patient will return to the clinic for Midline Lumbar Epidural Steroid Injection - Interlaminar L5-S1. Risks and benefits were discussed. The patient is willing to proceed. JUSTIFICATION OF MEDICAL NECESSITY Patient's pain has been present for >3 months and is an average of >6/10 on 0-10 scale and/orpain interferes with ADLs, sleep, mobility and function. Conservative management includes: - Physical Therapy: No PT recently; referred to physical therapy - Continues clinician directed home exercise program including exercises learned in PT. - Previous diagnostic LESI at L5-S1 on 11/21/2020 with minimal response - Referrals: No additional referrals at this time. - Pain psychologist: Schedule appointment with Pain Psychologist/APCS to address issues of relaxation, behavioral change, coping style, and other factors important to improvement, and consideration of biofeedback, CBT, and coping strategies. Referral placed for Empowered Relief Program. When the psychologist arrives. - Activity: Continue activity as tolerated. - Education: Cauda equina and associated symptoms, including motor weakness, bowel/bladder dysfunction, and perineal numbness were discussed. The patient was instructed to report to the Emergency department, if these symptoms occur. - Follow-up: Telehealth vs. In office pending degree of improvement s/p PER Mallorie Don Jenifer had the opportunity to ask questions and indicated that all questions were answered to her satisfaction. Tabatha Fernández MS DEPUTY SHERIFF CUSTODY-BC, JEFF Nurse Practitioner [facility] Catrina Corea, have performed the documentation for this encounter in the presence ofand acting as a scribe for Tabatha Fernández APRN. documented in this encounter Plan of Treatment Upcoming Encounters Date Type Department Care Team (Late st Contact Info) Description 07/12/2024 8:00 AM EST Hospital Encounter XRay at [address] [place] [address] Eliane Peterson APRN [facility] [place] [id number] Scheduled Procedures Name Priority Associated Diagnoses Date/Ti me INJECTION, FACET JOINT, W\FLUORO, LUMBAR, 2ND LEVEL (WRVU 1) Spondylosis of lumbar region without myelopathy or radiculopathy INJECTION, FACET JOINT, W\FLUORO, LUMBAR, SINGLE (WRVU 1.52) Spondylosis of lumbar region without myelopathy or radiculopathy Scheduled Referrals Name Type Priority Associated Diagnoses Orde r Schedule Referral to Physical Therapy Outpatient Referral Routine Spinal stenosis of lumbar region with neurogenic claudication Ordered: 02/19/2024 Amb Referral to Active Pain Care Services Outpatient Referral Routine Spinal stenosis of lumbar region with neurogenic claudication Ordered: 02/19/2024 documented as of this encounter Visit Diagnoses Diagnosis Spinal stenosis of lumbar region with neurogenic claudication- Primary Spinal stenosis, lumbar region, with neurogenic claudication documented in this encounter Care Teams Cook Helper Juice Relationship Specialty Start Date End Date Dilan Hernandez MD [address] [place] [address] [place] [phone] PCP - General 04/30/10 documented as of this encounter
--- OUTSIDE RECORDS SUMMARY | 2024-07-07 20:06 | XMS_ITS | Encounter Summary ---
Author Organization [facility] [place] [address] Care Team Providers Care Tug Captain Name Role Phone Dilan Hernandez MD Primary Care Provider [phone] Encounter Details Date Type Department Care Team (Late st Contact Info) Description 02/22/2024 Telephone Pain and Spine Center at [facility] [place] [address] Gary Swift Social History Tobacco Use Types Packs/Day Years Used Date Smoking Tobacco: Every Day Cigarettes Smokeless Tobacco: Never Alcohol Use Standard Drinks/Week Comments Yes 7 (1 standard drink = 0.6 oz pur e alcohol) 1 drink a day [facility] Inpatient Questions Answer Date Recorded Does [...] 8:00 AM EST Hospital Encounter XRay at [address] [place] [address] [place] [address] Scheduled Procedures Name Priority Associated Diagnoses Date/Ti me INJECTION, FACET JOINT, W\FLUORO, LUMBAR, 2ND LEVEL (WRVU 1) Spondylosis of lumbar region without myelopathy or radiculopathy INJECTION, FACET JOINT, W\FLUORO, LUMBAR, SINGLE (WRVU 1.52) Spondylosis of lumbar region without myelopathy or radiculopathy documented as of this encounter Visit Diagnoses Not on filedocumented in this encounter Care Teams Tug Captain Relationship Specialty Start Date End Date Dilan Hernandez MD [address] [place] [address] [place] [phone] PCP - General 04/30/10 documented as of this encounter
--- OUTSIDE RECORDS SUMMARY | 2024-07-07 20:06 | XMS_ITS | Encounter Summary ---
Author Organization [facility] [place] [address] Care Team Providers Care Learning And Development Assistant Name Role Phone Dilan Hernandez MD Primary Care Provider [phone] Reason for Visit * Auth/Cert (Routine) Specialty Diagnoses / Procedures Referred By Albert castaneda Referred To Contact Diagnoses Bloating Encounter for colorectal cancer screening EGD: bloating [place]: colorectal screening Procedures PRO UPPER GI ENDOSCOPY, DIAGNOSTIC PRO COLONOSCOPY, DIAGNOSTIC PRO UPPER GI ENDOSCOPY, BIOPSY PRO UP GI ENDOSCOPY, REMV TUMOR, SNARE PRO COLONOSCOPY, BIOPSY PRO COLONOSCOPY, REMV LESN, SNARE PRO ANES, COMBINED UPPER OR LOWER ENDOSCOPY EGD, UPPER GI ENDOSCOPY (WRVU 2.09) COLONOSCOPY, DIAGNOSTIC (WRVU 3.26) Sai Grimaldo MD [facility] [place] [address] [facility] Referral ID Status Reason Start Date Expiration Date Visits Re quested Visits Authorized [id number] 1 1 Encounter Details Date Type Department Care Team (Late st Contact Info) Description 02/16/2024 7:30 AM EDT - 02/16/2024 8:30 AM EDT [place] [address] Sai Grimaldo MD [facility] [place] [address] EGD, [facility] Social History Tobacco Use Types Packs/Day Years [...] 02/16/2024 7:15 AM ED T Respiratory Rate 16 02/16/2024 7:15 AM EDT Oxygen Saturation 96% 02/16/2024 7:15 [...] the day after the procedure, use an kzus-btt-ymdofbm spray to numb your throat. Sucking on [...] occurs, please contact your Doctor. Please call [phone] before 8pm Mon-Fri with problems, questions or concerns. If you call after 8pm or on weekends, call the Hospital at [phone] and ask to speak to the Surveillance Officer rn interventional and the portable feed mill operator will contact that person for you. When [...] any problems. Where can you learn more? [facility] View your After Visit Summary and more online at [email or web address] If you would like to provide feedback about your hospital experience, please call the Office of Patient and Family Relations at . If you have received this After Visit Summary in error, please immediately return it in person to the department, or notify the [facility] Privacy Office by calling toll free at between the hours of 8AM and 5PM to arrange for our retrieval of the documents at no cost to you. Content Version: 12.2 ?? [id number] [employer]. Care instructions adapted under license by [facility]. If you have questions about a medical condition or this instruction, always ask your healthcare professional. [employer] disclaims any warranty or liability for your [...] occurs, please contact your Doctor. Please call [phone] before 8pm Mon-Fri with problems, questions or concerns. If you call after 8pm or on weekends, call the Hospital at [phone] and ask to speak to the Surveillance Officer rn interventional and the portable feed mill operator will contact that person for you. When [...] any problems. Where can you learn more? [facility] View your After Visit Summary and more online at [email or web address] If you would like to provide feedback about your hospital experience, please call the Office of Patient and Family Relations at . If you have received this After Visit Summary in error, please immediately return it in person to the department, or notify the [facility] Privacy Office by calling toll free at between the hours of 8AM and 5PM to arrange for our retrieval of the documents at no cost to you. Content Version: 12.2 ?? [id number] [employer]. Care instructions adapted under license by [facility]. If you have questions about a medical condition or this instruction, always ask your healthcare professional. [employer] disclaims any warranty or liability for your [...] 04/07/2024 MAGNESIUM ORAL Take by mouth daily. *[place] Liquid form* 04/07/2024 omeprazole (PriLOSEC) 20 mg [...] 16 -- 96 % 3 L/min NC 02/16/24 0719 -- -- -- 107/69 -- -- -- [...] complication. Informed Consent signed by patient (or sales representative metals). documented in this encounter Plan of Treatment Upcoming Encounters Date Type Department Care Team (Late st Contact Info) Description 07/12/2024 8:00 AM [facility] Hospital Encounter XRay at [address] [place] [address] [place] [address] Scheduled Procedures Name Priority Associated Diagnoses Date/Ti [...] colorectal cancer screening Colonoscopy, Remv Lesn, Snare ([id number]) 02/16/2024 7:40 AM EDT Bloating Encounter for colorectal cancer screening Upper GI Endoscopy, Diagnostic ([id number]) 02/16/2024 7:40 AM EDT Bloating Encounter for colorectal cancer screening UPPER GI ENDOSCOPY Routine 02/16/2024 7: 22 AM EDT COLONOSCOPY Routine 02/16/2024 7:21 AM EDT documented in this encounter Results * Surgical Pathology (02/16/2024 8:20 AM EDT) Case Report Surgical Pathology Report ? Case: [id number] ? Authorizing Provider: ??Sai Grimaldo MD ?? Collected: ? 02/16/2024 0820 ? Ordering Location: ? Gastroenterology at [facility] ?? Received: ?02/16/2024 1020 ? Pathologist: ? Kaushal Gonzalez MD ? Specimens: ?? A) - Colon, Ascending, polyps ascending colon < 5 mm, 10 mm ? B) - Colon, Rectum, polyps rectum x 2 ? C) - Colon, Sigmoid, polyps sigmoid colon x 2 ? 02/19/2024 1:03 PM EDT [facility] Final Diagnosis A. Colon, Ascending, polyps ascending colon < 5 mm, 10 mm Polypectomy/Polype ctomies: Tubular adenoma(s) (multiple fragments). B. Colon, Rectum, polyps rectum x 2 Polypectomy/Polype ctomies: Hyperplastic polyps. C. Colon, Sigmoid, polyps sigmoid colon x 2 Polypectomy/Polype ctomies: Hyperplastic polyps. CR-PX 02/19/2024 1:03 PM EDT [facility] Clinical Information A. Colon, Ascending, polyps ascending colon < 5 mm, 10 mm Polyp Encounter for colorectal cancer screening [Z12.11, Z12.12] B. Colon, Rectum, polyps rectum x 2 Polyp Encounter for colorectal cancer screening [Z12.11, Z12.12] C. Colon, Sigmoid, polyps sigmoid colon x 2 Polyp Encounter for colorectal cancer screening [Z12.11, Z12.12] 02/19/2024 1:03 PM EDT [facility] Gross Description A. Colon, [...] and bisected cmk 02/19/2024 1:03 PM EDT [facility] Result Note Routine 02/19/2024 1:03 PM EDT [facility] Tissue ASCENDING COLON STRUCTURE / Unknown 02/16/2024 8:20 AM EDT 02/16/2024 10:20 AM EDT Comment:Pre-op diagnosis: EGD: bloating [place]: colorectal screening Tissue specimen (specimen) COLON AND RECTUM, CS / Unknown 02/16/2024 8:37 AM EDT 02/16/2024 10:21 AM EDT Comment:Pre-op diagnosis: EGD: bloating [place]: colorectal screening Tissue specimen (specimen) SIGMOID COLON STRUCTURE / Unknown 02/16/2024 8:41 AM EDT 02/16/2024 10:21 AM EDT Comment:Pre-op diagnosis: EGD: bloating [place]: colorectal screening Sai Grimaldo MD PATHOLOGY/CYTOLOG Y ORDERABLES [facility] [place] [address] * UPPER GI ENDOSCOPY (02/16/2024 7:22 AM EDT) UPPER GI ENDOSCOPY [facility] Endoscopy Procedure Date: 02/16/2024 7:22 AM ? Patient Name: Mallorie Burgess ? N: [id number] ? Date of : 1950 ? Age: 73 ? Order #: [id number] ? Instrument Name: [id number] ? Procedure: ? Upper GI endoscopy Indications: [...] * COLONOSCOPY (02/16/2024 7:21 AM EDT) COLONOSCOPY [facility] Endoscopy Procedure Date: 02/16/2024 7:21 AM ? Patient Name: Mallorie Burgess ? Date of : 1950 ? Age: 73 ? Order #: [id number] ? Instrument Name: [id number] ? Procedure: ? Colonoscopy Indications: ? Screening for colorectal malignant ? neoplasm Patient Profile: ? This is a 73 year old female. Providers: ? Sai Grimaldo MD, [place] R. ? RUPA Wade, Gavi Phan Referring MD: [...] preparation was evaluated ? using the BBPS ([place] Bowel ? Preparation Scale) with scores of: [...] screening Special screening for malignant neoplasms, colon Bloating Flatulence, eructation, and gas pain Encounter for colorectal cancer screening Special screening [...] CRNA) documented in this encounter Care Teams Learning And Development Assistant Relationship Specialty Start Date End Date Dilan Hernandez MD [address] [place] [address] [place] [phone] PCP - General 04/30/10 documented as of this encounter
--- OUTSIDE RECORDS SUMMARY | 2024-07-07 20:06 | XMS_ITS | Encounter Summary ---
Author Organization [facility] Address [facility] [place] [address] Care Team Providers Care Cook Fast Food Name Role Phone Dilan Hernandez MD Primary Care Provider [phone] Encounter Details Date Type Department Care Team (Latest Contact Info) Description 02/19/2024 Travel Social History Tobacco Use Types Packs/Day [...] st Contact Info) Description 07/12/2024 8:00 AM [facility] Hospital Encounter XRay at [address] [place] [address] Eliane Peterson APRN [facility] [place] [address] Scheduled Procedures Name Priority Associated Diagnoses Date/Ti me INJECTION, FACET JOINT, W\FLUORO, LUMBAR, 2ND LEVEL (WRVU 1) Spondylosis of lumbar region without myelopathy or radiculopathy INJECTION, FACET JOINT, W\FLUORO, LUMBAR, SINGLE (WRVU 1.52) Spondylosis of lumbar region without myelopathy or radiculopathy documented as of this encounter Visit Diagnoses Not on filedocumented in this encounter Care Teams Cook Fast Food Relationship Specialty Start Date End Date Dilan Hernandez MD [address] [place] [address] [place] [phone] PCP - General 04/30/10 documented as of this encounter
--- OUTSIDE RECORDS SUMMARY | 2024-07-07 20:06 | XMS_ITS | Encounter Summary ---
Author Organization [facility] Address [facility] [place] [address] Care Team Providers Care Unpaid Intern Name Role Phone Dilan Hernandez MD Primary Care Provider [phone] Encounter Details Date Type Department Care Team (Latest Contact Info) Description 05/09/2024 Travel Social History Tobacco Use Types Packs/Day [...] st Contact Info) Description 07/12/2024 8:00 AM [facility] Hospital Encounter XRay at [address] [place] [address] Eliane Peterson APRN [facility] [place] [address] Scheduled Procedures Name Priority Associated Diagnoses Date/Ti me INJECTION, FACET JOINT, W\FLUORO, LUMBAR, 2ND LEVEL (WRVU 1) Spondylosis of lumbar region without myelopathy or radiculopathy INJECTION, FACET JOINT, W\FLUORO, LUMBAR, SINGLE (WRVU 1.52) Spondylosis of lumbar region without myelopathy or radiculopathy documented as of this encounter Visit Diagnoses Not on filedocumented in this encounter Care Teams Unpaid Intern Relationship Specialty Start Date End Date Dilan Hernandez MD [address] [place] [address] [place] [phone] PCP - General 04/30/10 documented as of this encounter
--- OUTSIDE RECORDS SUMMARY | 2024-07-07 20:06 | XMS_ITS | Encounter Summary ---
Author Organization [facility] [place] [address] Care Team Providers Care Land Planner Name Role Phone Dilan Hernandez MD Primary Care Provider [phone] Reason for Visit * Auth/Cert (Routine) Specialty Diagnoses / Procedures Referred By Contac t Referred To Contact Diagnoses Spinal stenosis of lumbar region with neurogenic claudication lumbar stenosis Procedures PRO INJECTION DX/THER SBST INTRLMNR LMBR/SAC W/IMG GDN INJECTION, EPIDURAL, LUMBAR OR SACRAL (CAUDAL), WITH IMAGING GUIDANCE (WRVU 1.8) Danyel Rodriguez MD [facility] [place] [address] [facility] Referral ID Status Reason Start Date Expiration Date Visits Re quested Visits Authorized [id number] 1 1 Encounter Details Date Type Department Care Team (Late st Contact Info) Description 04/11/2024 4:00 PM EST Ancillary [place] [address] Danyel Rodriguez MD [facility] [place] [address] Social History Tobacco Use Types Packs/Day Years [...] 8:00 AM EST Hospital Encounter XRay at [address] [place] [address] [place] [address] Scheduled Procedures Name Priority Associated Diagnoses Date/Ti me INJECTION, FACET JOINT, W\FLUORO, LUMBAR, 2ND LEVEL (WRVU 1) Spondylosis of lumbar region without myelopathy or radiculopathy INJECTION, FACET JOINT, W\FLUORO, LUMBAR, SINGLE (WRVU 1.52) Spondylosis of lumbar region without myelopathy or radiculopathy documented as of this encounter Procedures Procedure Name Priority Date/Time Associated Diagnosis Comments FILM LIBRARY STORAGE ONLY PAIN CLINIC C ARM Routine 04/11/2024 3:57 PM EST documented in this encounter Results * Film Library- Storage Only pain Clinic C-Arm (04/11/2024 3:57 PM EST) Narrative [facility] - 04/11/2024 3:57 PM EST See PACS for result report. Danyel Rodriguez MD IMG FILM LIBRARY ORD ERABLES [facility] [place] documented in this encounter Visit Diagnoses Not on filedocumented in this encounter Care Teams Land Planner Relationship Specialty Start Date End Date Dilan Hernandez MD [address] [place] [address] [place] [phone] PCP - General 04/30/10 documented as of this encounter
--- OUTSIDE RECORDS SUMMARY | 2024-07-07 20:06 | XMS_ITS | Encounter Summary ---
Author Organization [facility] Address [facility] [place] [address] Care Team Providers Care System Support Administrator Name Role Phone Dilan Hernandez MD Primary Care Provider [phone] Encounter Details Date Type Department Care Team (Latest Contact Info) Description 06/27/2024 2:01 PM EST - 06/27/2024 11:59 PM EST Hospital [place] [address] Chronic obstructive pulmonary disease, unspecified COPD type Discharge Disposition: Home Social History Tobacco Use Types Packs/Day Years Used Date Smoking Tobacco: Every Day Cigarettes Smokeless Tobacco: Never Alcohol Use Standard Drinks/Week Comments Yes 7 (1 standard drink = 0.6 oz pur e alcohol) 1 drink a day [facility] Inpatient Questions Answer Date Recorded Does Anyone [...] PM EDT documented as of this encounter Medications at Time of Discharge Medication Sig Dispensed Refills Start Date End Date ondansetron (Zofran) 8 mg tablet Take 8 mg by mouth every 6 hours as needed for Nausea. ibuprofen (Advil) 200 mg tablet Take 400 mg by mouth. 05/24/2024 nicotine (Nicoderm CQ) 21 mg/24 hr Patch 24 hrIndications:Cigarett e nicotine dependence without complication Change 1 patch on the skin daily. 28 patch 11 06/27/2024 ipratropium-albuteroL (Duoneb) 0.5 mg-3 mg(2.5 mg base)/3 mL Solution for Nebulization USE 1 AMPULE IN NEBULIZER EVERY 4 HOURS NEEDED FOR SHORTNESS OF BREATH FOR WHEEZING omeprazole (PriLOSEC) [address] capsule Take 40 mg by mouth daily. torsemide (Demadex) 10 mg tablet Take 2 tablets by mouth daily. 03/01/2024 metFORMIN (Glucophage) 500 mg tablet Take 500 mg by mouth 2 times daily (with meals). 01/19/2024 spironolactone (Aldactone) 25 mg tablet Take 0.5 tablets by mouth daily. 01/19/2024 Ozempic 0.25 mg or 0.5 mg (2 mg/3 mL) Pen Injector Inject 0.25 mg subcutaneously once a week. Now 1.0 mg 04/27/2023 budesonide-glycopyrrol ate-formoterol (Breztri Aerosphere) 160-9-4.8 mcg/actuation inhaler (HFA) 2 [...] morning and two at night per patient documented as of this encounter Progress Notes * Yamile Hackett, RT - 06/27/2024 2:55 PM EST Mallorie Burgess noted ED visit at [facility] on 06/24/24 for AE COPD and hypokalemia. She is currently on Prednisone 40 mg per day ( day 3 of 5) and has resume her K+ supplement. She notes increased productive cough She denies fever, chills. SPo2 on room air at rest: 95%. She is utilizing O2 at 3 -3 1/2 lpm prn during the day when she is short of breath and at night forsleep. she continues to smoke 1 1/[address] He, plan to hold spirometry and DLCO today secondary to Mallorie not at baseline respiratory status. documented in this encounter Plan of Treatment Upcoming Encounters Date Type Department Care Team (Late st Contact Info) Description 07/12/2024 8:00 AM EST Hospital Encounter XRay at [address] [place] [address] Eliane Peterson, [place] [address] Scheduled Orders Name Type Priority Associated Diagnoses Orde r Schedule Common Pulmonary Function Test PFT Routine Chronic obstructive pulmonary disease, unspecified COPD type 1 Occurrences starting 06/27/2024 until 06/27/2024 Scheduled Procedures Name Priority Associated Diagnoses Date/Ti me INJECTION, FACET JOINT, W\FLUORO, LUMBAR, 2ND LEVEL (WRVU 1) Spondylosis of lumbar region without myelopathy or radiculopathy INJECTION, FACET JOINT, W\FLUORO, LUMBAR, SINGLE (WRVU 1.52) Spondylosis of lumbar region without myelopathy or radiculopathy documented as of this encounter Visit Diagnoses Diagnosis Chronic obstructive pulmonary disease, unspecified COPD type documented in this encounter Care Teams System Support Administrator Relationship Specialty Start Date End Date Dilan Hernandez MD [address] [place] [address] BR[place] Beltran [phone] PCP - General 04/30/10 documented as of this encounter
--- OUTSIDE RECORDS SUMMARY | 2024-07-07 20:06 | XMS_ITS | Encounter Summary ---
Author Organization [facility] Address [facility] [place] [address] Care Team Providers Care Biofuels Production Manager Name Role Phone Dilan Hernandez MD Primary Care Provider [phone] Reason for Visit * Reason Comments Medication Refill Encounter Details Date Type Department Care Team (Late st Contact Info) Description 03/31/2024 Refill [place] [address] Jessica Brito MD [facility] [place] [address] Social History Tobacco Use Types Packs/Day Years Used Date Smoking Tobacco: Every Day Cigarettes Smokeless Tobacco: Never Alcohol Use Standard Drinks/Week Comments Yes 7 (1 standard drink = 0.6 oz pur e alcohol) 1 drink a day [facility] Inpatient Questions Answer Date Recorded Does [...] encounter Miscellaneous Notes * Telephone Encounter - Christina Jeffries CCMA - 03/31/2024 11:50 AM EDT Prescription Renewal Request Name: Mallorie Burgess : 1950 Prescription(s) Requested: Requested Prescriptions Refused Prescriptions Disp Refills metFORMIN (Glucophage) 500 mg tablet [Pharmacy Med Name: metFORMIN HCl 500 MG Oral Tablet] 60 tablet 0 Sig: TAKE 1 TABLET BY MOUTH TWICE DAILY WITH MEALS Refused By: CHRISTINA JEFFRIES Reason for Refusal: Refill not appropriate Status of request: Refused No Known Allergies AUTUMN Aleman 03/31/24 11:51 AM documented in this encounter Plan of Treatment Upcoming Encounters Date Type Department Care Team (Late st Contact Info) Description 07/12/2024 8:00 AM [facility] Encounter XRay at [address] [place] [address] [place] [address] Scheduled Procedures Name Priority Associated Diagnoses Date/Ti me INJECTION, FACET JOINT, W\FLUORO, LUMBAR, 2ND LEVEL (WRVU 1) Spondylosis of lumbar region without myelopathy or radiculopathy INJECTION, FACET JOINT, W\FLUORO, LUMBAR, SINGLE (WRVU 1.52) Spondylosis of lumbar region without myelopathy or radiculopathy documented as of this encounter Visit Diagnoses Not on filedocumented in this encounter Care Teams Biofuels Production Manager Relationship Specialty Start Date End Date Dilan Hernandez MD [address] [place] [address] [place] [address] PCP - General 04/30/10 documented as of this encounter
--- OUTSIDE RECORDS SUMMARY | 2024-07-07 20:06 | XMS_ITS | Encounter Summary ---
Author Organization [facility] [place] [address] Care Team Providers Care Frit Maker Name Role Phone Dilan Hernandez MD Primary Care Provider Reason for Visit * Reason Onset Date Comments Pre Procedure Call 07/06/2024 Encounter Details Date Type Department Care Team (Late st Contact Info) Description 07/06/2024 Telephone [facility] [place] [phone] Lelia Corona, RN Pre Procedure Call Social History Tobacco Use Types Packs/Day Years Used Date Smoking Tobacco: Every Day Cigarettes Smokeless Tobacco: Never Alcohol Use Standard Drinks/Week Comments Yes 7 (1 standard drink = 0.6 oz pur e alcohol) 1 drink a day [facility] Inpatient Questions Answer Date Recorded [...] Miscellaneous Notes * Telephone Encounter - Lelia Corona RN - 07/06/2024 9:01 AM ESTSummary: request for clearance letter from PCP Reached out to patient's PCP office to request a clearance letter be sent for pain clinic to proceed with scheduling LMBB after recent bout of UTI and antibiotics. This caller stated we received recent lab results by fax on 06/14/24 with negative results but that we need a statement in writing that the patient is healthy to go ahead with procedure at this time. Implementation Advisor verbalized understanding, relaying message to PCP. Gave pain clinic fax number and direct line for call back. documented in this encounter Plan of Treatment Upcoming Encounters Date Type Department Care Team (Late st Contact Info) Description 07/12/2024 8:00 AM EST Hospital Encounter XRay at [address] [place] [address] [place] [address] Scheduled Procedures Name Priority Associated Diagnoses Date/Ti me INJECTION, FACET JOINT, W\FLUORO, LUMBAR, 2ND LEVEL (WRVU 1) Spondylosis of lumbar region without myelopathy or radiculopathy INJECTION, FACET JOINT, W\FLUORO, LUMBAR, SINGLE (WRVU 1.52) Spondylosis of lumbar region without myelopathy or radiculopathy documented as of this encounter Visit Diagnoses Not on filedocumented in this encounter Care Teams Frit Maker Relationship Specialty Start Date End Date Dilan Hernandez MD [address] [place] [address] [place] [phone] PCP - General 04/30/10 documented as of this encounter
--- OUTSIDE RECORDS SUMMARY | 2024-07-07 20:06 | XMS_ITS | Encounter Summary ---
Author Organization [facility] [place] [address] Care Team Providers Care Director Sterile Processing Name Role Phone Dilan Hernandez MD Primary Care Provider [phone] Reason for Visit * Auth/Cert (Routine) Specialty Diagnoses / Procedures Referred By Contac t Referred To Contact Diagnoses Spinal stenosis of lumbar region with neurogenic claudication lumbar stenosis Procedures PRO INJECTION DX/THER SBST INTRLMNR LMBR/SAC W/IMG GDN INJECTION, EPIDURAL, LUMBAR OR SACRAL (CAUDAL), WITH IMAGING GUIDANCE (WRVU 1.8) Danyel Rodriguez MD [facility] [place] [address] [facility] Referral ID Status Reason Start Date Expiration Date Visits Re quested Visits Authorized [id number] 1 1 Encounter Details Date Type Department Care Team (Late st Contact Info) Description 04/11/2024 4:00 PM EST - 04/11/2024 4:30 PM [place] [id number] Danyel Rodriguez MD [facility] [place] [address] INJECTION, EPIDURAL, LUMBAR OR SACRAL (CAUDAL), WITH IMAGING GUIDANCE (WRVU 1.8) Social History Tobacco Use Types Packs/Day Years [...] Sign Reading Time Taken Comments Blood Pressure 110/64 04/11/2024 3:21 PM EST Pulse 92 04/11/2024 3:21 PM EST Temperature - - Respiratory Rate - - Oxygen Saturation 97% 04/11/2024 3:40 PM EST Inhaled Oxygen Concentration - - Weight - - Height - - Body Mass Index - - documented in this encounter Medications at Time of Discharge Medication Sig Dispensed Refills Start Date End Date ipratropium-albuteroL (Duoneb) 0.5 mg-3 mg(2.5 mg base)/3 [...] morning and two at night per patient azithromycin (Zithromax) 500 mg tabletIndications:Chr onic obstructive pulmonary disease, unspecified COPD type Take 1 tablet by mouth three times a week (Mon, Weds, Fri). 39 tablet 1 03/30/2024 05/10/2024 documented as of this encounter H&P Notes * Berna Slaughter DO - 04/08/2024 9:44 AM EDT Patient Name: Mallorie Burgess Patient Age: 74 y.o. Birthdate: 1950 Admit date: 04/11/2024 Attending Physician: Danyel Rodriguez MD [facility] PREPROCEDURE HISTORY AND PHYSICAL HPI: Mallorie Burgess is a 74 y.o. female who presents today for: Procedure: Midline Lumbar Epidural Steroid Injection - Interlaminar L5-S1 The history is obtained from the patient, and I have reviewed medical records provided by the referring physician, located in the electronic medical record to fill in gaps in the patient's recollection of events, treatments and outcomes. ROS: Patient denies recent fever, chills, infection, wounds, hospitalizations, ED visits, use of antibiotics. Pertinent positives and negatives otherwise noted in the HPI. I have reviewed the patient's past medical history, past surgical history, list of medications, allergies, family history and social history as documented in the electronic medical record. Physical Examination: BP 110/64 (Patient Position: Sitting) Pulse 92 SpO2 92% Pain Ratin/10 Please see previous evaluation performed on 02/19/2024, by Tabatha Fernández APRN No pertinent changes are noted from previous assessment. Pulmonary/Chest: Effort normal. Skin: Skin is warm and dry. No rash noted. Not diaphoretic. Radiologic Data: Relevant imaging was reviewed today. New Imaging: None Labs: No labs required Assessment and Plan: Present on Admission: Spondylosis of lumbar region without myelopathy or radiculopathy Please see previous evaluation performed on 02/19/2024, by Tabatha Fernández APRN, for justification ofmedical necessity for planned Midline Lumbar Epidural Steroid Injection - Interlaminar L5-S1. Addressed all questions and concerns. Nursing intake/checklist reviewed. Medications holds confirmed. Risks and benefits discussed with patient. No contraindications to the procedure at this time, will proceed. Berna Slaughter DO Fellow [facility]ician [facility] [place] [address] / documented in this encounter Miscellaneous Notes * Op Note - Danyel Rodriguez MD - 04/11/2024 3:37 PM EST Pain Management Operative Note Patient Name: Mallorie Burgess : [id number] MR#: [id number] Case Date: 04/11/2024 Surgeon: Surgeons and Role: * Danyel Rodriguez MD - Primary * Mekhi Martin MD - Resident - Assisting Present on Admission: Spondylosis of lumbar region without myelopathy or radiculopathy Postoperative diagnosis: Same Procedure(s) (LRB): INJECTION, EPIDURAL, LUMBAR OR SACRAL (CAUDAL), WITH IMAGING GUIDANCE (WRVU 1.8) (Midline) LUMBAR INTERLAMINAR EPIDURAL STERIOID INJECTION PROCEDURE NOTE - L5-S1 Ms. Mallorie Burgess has been referred to the Pain Management Center for a lumbar epidural steroid injection by No referring provider defined for this encounter.. The patient complains of low back pain with pain radiating down the bilateral leg. Ms. Burgess was greeted by the nurse who verified patients name and . The patient was then taken to the fluoroscopy suite. Ms. Burgess was interviewed and the medical record reviewed. There were no medical, pharmacologic, radiographic, or other structural contraindications to attempting fluoroscopically guided lumbar epidural steroid injection. Risks and potential side effects, as well as potential benefits of the procedure were reviewed with Ms. Burgess. Her voiced concerns were addressed. After I was assured that informed consent was obtained, the patient consent form was signed. Standard time-out procedure was performed. Ms. Burgess was placed in the prone position on the fluoroscopy table and automated blood pressure cuff and pulse oximeter applied. The skin entry point for entering/approaching the L5-S1 epidural space for the lumbar epidural steroid injection was marked. Following thorough chlorhexidine preparationof the skin and draping and 1% lidocaine infiltration of the skin entry point and subcutaneous tissues, an 18 gauge Touhy needle was placed and advanced under fluoroscopic guidance and with loss of resistance technique into the L5-S1 epidural space. Needle tip placement and depth were aided and confirmed by fluoroscopy. There was no paresthesia or return of blood or CSF through the needle. 1 cc'sof Omnipaque 240 was injected with clear epidural spread confirmed with fluoroscopy. Methylprednisolone 80 mg (1 ml) with Lidocaine 1% (2 ml) was injected slowly. This was followed by 1 cc of Lidocaine to flush the steroid out of the needle. There was not any unusual discomfort expressed by Ms. Burgess. Ms. Burgess's vital signs were stable throughout the procedure and were as recorded in nursing records. PLAN: Follow up with Ms. Tabatha Fernández APRN in 3-4 weeks. Post procedure instruction was given as documented in nursing documentation and having met discharge criteria, she was discharged from the Pain Management Center. The procedure was performed by Dr. Martin under my supervision. I was the attending physician supervising the fellow in the above care and I was present with the fellow for the entire procedure. Danyel Rodriguez MD Attending Physician [facility] [place] [address] / CC: Dilan Hernandez MD [address] [place] [address] [place] [address] documented in this encounter Plan of Treatment Upcoming Encounters Date Type Department Care Team (Late st Contact Info) Description 07/12/2024 8:00 AM EST Hospital Encounter XRay at [address] [place] [address] Eliane Peterson APRN [facility] [place] [address] Scheduled Procedures Name Priority Associated Diagnoses Date/Ti me INJECTION, FACET JOINT, W\FLUORO, LUMBAR, 2ND LEVEL (WRVU 1) Spondylosis of lumbar region without myelopathy or radiculopathy INJECTION, FACET JOINT, W\FLUORO, LUMBAR, SINGLE (WRVU 1.52) Spondylosis of lumbar region without myelopathy or radiculopathy documented as of this encounter Procedures Procedure Name Priority Date/Time Associated Diagnosis Comments Injection Dx/Ther Sbst Intrlmnr Lmbr/Sac W/Img Gdn ([id number]) 04/11/2024 3:31 PM EST Spinal stenosis of lumbar region with neurogenic claudication INJECTION, EPIDURAL, LUMBAR OR SACRAL (CAUDAL), WITH IMAGING GUIDANCE Routine 04/11/2024 3:10 PM EST Spinal stenosis of lumbar region with neurogenic claudication documented in this encounter Visit Diagnoses Diagnosis Spondylosis of lumbar region without myelopathy or radiculopathy- Primary Lumbosacral spondylosis without myelopathy Spinal stenosis of lumbar region with neurogenic claudication Spinal stenosis, lumbar region, with neurogenic claudication Spinal stenosis of lumbar region with neurogenic claudication Spinal stenosis, lumbar region, with neurogenic claudication documented in this encounter Administered Medications Inactive Administered Medications - up to 3 most recent administrations Medication Order MAR Action Action Date Dose Rate Site iohexoL (Omnipaque) (240 mg/mL) solution PRN, Starting on Thu04/11/24 at 1517, Until Thu04/11/24 at 1757, Intra-Operative (Intra-Procedure), Routine Given 04/11/2024 3:17 PM EST 1 mL methylPREDNISolone acetate (DEPO-Medrol) (80 mg/mL) injection PRN, Starting on Thu04/11/24 at 1517, Until Thu04/11/24 at 1757, Intra-Operative (Intra-Procedure), Routine Given 04/11/2024 3:17 PM EST 80 mg documented in this encounter Active and Recently Administered Medications Due to Daylight Saving Time, this section may contain times in both EDT and EST. PRN Medication Order 04/09/2024 04/10/2024 04/11/2024 iohexoL (Omnipaque) (240 mg/mL) solution (CANCELED) PRN, Starting on Thu04/11/24 at 1517, Until Thu04/11/24 at 1757, Intra-Operative (Intra-Procedure), Routine 1517 (Given - Provid er: Mekhi Martin MD) methylPREDNISolone acetate (DEPO-Medrol) (80 mg/mL) injection (CANCELED) PRN, Starting on Thu04/11/24 at 1517, Until Thu04/11/24 at 1757, Intra-Operative (Intra-Procedure), Routine 1517 (Given - Provid er: Mekhi Martin MD) documented in this encounter Care Teams Director Sterile Processing Relationship Specialty Start Date End Date Dilan Hernandez MD [address] [place] [address] [place] [id number] PCP - General 04/30/10 documented as of this encounter
--- OUTSIDE RECORDS SUMMARY | 2024-07-07 20:06 | XMS_ITS | Encounter Summary ---
Author Organization [facility] Address [facility] [place] [address] Care Team Providers Care Toll Transmission Worker Name Role Phone Dilan Hernandez MD Primary Care Provider [phone] Encounter Details Date Type Department Care Team (Latest Contact Info) Description 02/12/2024 Travel Social History Tobacco Use Types Packs/Day [...] st Contact Info) Description 07/12/2024 8:00 AM [facility] Hospital Encounter XRay at [address] [place] [address] Eliane Peterson APRN [facility] [place] [address] Scheduled Procedures Name Priority Associated Diagnoses Date/Ti me INJECTION, FACET JOINT, W\FLUORO, LUMBAR, 2ND LEVEL (WRVU 1) Spondylosis of lumbar region without myelopathy or radiculopathy INJECTION, FACET JOINT, W\FLUORO, LUMBAR, SINGLE (WRVU 1.52) Spondylosis of lumbar region without myelopathy or radiculopathy documented as of this encounter Visit Diagnoses Not on filedocumented in this encounter Care Teams Toll Transmission Worker Relationship Specialty Start Date End Date Dilan Hernandez MD [address] [place] [address] [place] [phone] PCP - General 04/30/10 documented as of this encounter
--- OUTSIDE RECORDS SUMMARY | 2024-07-07 20:06 | XMS_ITS | Clinical Summary ---
Author Organization [facility] Address [facility] [place] [address] Care Team Providers Care On Site Property Manager Name Role Phone Dilan Hernandez MD Primary Care Provider [phone] Allergies Active Allergy Reactions Criticality Noted Date Comments Pregabalin High 06/27/2024 Sulfamethoxazole-Trimethopr im High 06/27/2024 Other Reaction(s): Joint pain Medications Medication Sig Dispensed Refills Start Date End Date Status pramipexole (MIRAPEX) 1 mg Tablet Take 1.5 mg by mouth 2 times daily. 2 mg in morning and two at night per patient Active PROAIR HFA 90 mcg/actuation HFA Aerosol Inhaler INHALE TWO PUFFS BY MOUTH EVERY 4 HOURS NEEDED 04/02/2019 Active ferrous sulfate 324 mg (65 mg iron) Tablet, Delayed Release (E.C.) Take 324 mg by mouth every other day. Active escitalopram (Lexapro) 10 mg Tablet Take 10 mg by mouth daily. Active budesonide-glycopyr rolate-formoterol (Breztri Aerosphere) 160-9-4.8 mcg/actuation inhaler (HFA) 2 puffs, Inhale, BID, rinse mouth and throat after use, # 5.9 g, 0 Refill(s) 09/07/2023 Active cephALEXin (Keflex) 250 mg capsule Take 1 capsule by mouth Daily at Noon. 09/19/2023 Active Ozempic 0.25 mg or 0.5 mg (2 mg/3 mL) Pen Injector Inject 0.25 mg subcutaneously once a week. Now 1.0 mg 04/27/2023 Active metFORMIN (Glucophage) 500 mg tablet Take 500 mg by mouth 2 times daily (with meals). 01/19/2024 Active spironolactone (Aldactone) 25 mg tablet Take 0.5 tablets by mouth daily. 01/19/2024 Active ipratropium-albuter oL (Duoneb) 0.5 mg-3 mg(2.5 mg base)/3 mL Solution for Nebulization USE 1 AMPULE IN NEBULIZER EVERY 4 HOURS NEEDED FOR SHORTNESS OF BREATH FOR WHEEZING Active omeprazole (PriLOSEC) [address] capsule Take 40 mg by mouth daily. Active torsemide (Demadex) 10 mg tablet Take 2 tablets by mouth daily. 03/01/2024 Active ondansetron (Zofran) 8 mg tablet Take 8 mg by mouth every 6 hours as needed for Nausea. Active ibuprofen (Advil) 200 mg tablet Take 400 mg by mouth. 05/24/2024 Active nicotine (Nicoderm CQ) 21 mg/24 hr Patch 24 hrIndications:Cigar ette nicotine dependence without complication Change 1 patch on the skin daily. 28 patch 11 06/27/2024 Active Active Problems Problem Noted Date Diagnosed Date Anxiety disorder 01/28/2024 Chronic pain disorder 01/28/2024 Claustrophobia 01/28/2024 Excessive daytime sleepiness 01/28/2024 Hyponatremia 01/28/2024 Hypoxemia associated with sleep 01/28/2024 Insomnia 01/28/2024 Lumbosacral radiculopathy 01/28/2024 Overweight 01/28/2024 Peptic ulcer disease 01/28/2024 Right hip pain 01/28/2024 SOB (shortness of breath) on exertion 01/28/2024 Tobacco abuse 01/28/2024 COPD (chronic obstructive pulmonary disease) 06/2023 Gastroesophageal reflux disease 12/07/2023 Mixed stress and urge urinary incontinence 12/06 Nicotine dependence 12/07/2023 Prediabetes 12/07/2023 Low back pain, non-specific 10/02/2020 Spondylosis of lumbar region without myelopathy or radiculopathy 10/02/2020 Overview (10/02/2020): Added automatically from request for surgery [id number] DDD (degenerative disc disease), lumbar 08/24/19 21 Overview (08/23/2020): Added automatically from request for surgery [id number] Restless legs 03/05/2020 Gastric outlet obstruction 07/28/2019 Overview (12/07/2023): Documented by EGD 12/2014 for [facility]. History of pyloric channel ulcer 01/19/2019 Pyloric stenosis 01/19/2019 Diarrhea 09/06/2018 Encounters Date Type Department Care Team Description 07/06/2024 Telephone [facility] [place] [phone] Lelia Corona, RN Pre Procedure Call 06/29/2024 [place] [address] Steff Castro 06/27/2024 3:00 PM EST Office [place] [address] Zita He MD Chronic obstructive pulmonary disease, unspecified COPD type; Cigarette nicotine dependence without complication; Supplemental oxygen dependent 06/27/2024 2:01 PM EST - 06/27/2024 11:59 PM EST Hospital En[place] [address] Chronic obstructive pulmonary disease, unspecified COPD type Discharge Disposition: Home 06/27/2024 Travel 06/27/2024 Telephone [facility] [place] [address] Lelia Corona, RUPA Pre Procedure Call 06/10/2024 Telephone [facility] [place] [address] Tania Flores, AUTUMN 05/10/2024 8:30 AM EST TH Visit (TeleHealth) [facility] [place] [phone] Tabatha Fernández, JEFF Spondylosis of lumbar region without myelopathy or radiculopathy (Primary Dx) 05/09/2024 Travel 04/11/2024 4:00 PM EST Ancillary Procedure [place] [address] Danyel Rodriguez MD 04/11/2024 4:00 PM EST - 04/11/2024 4:30 PM EST Surgery [place] [phone] Danyel Rodriguez MD INJECTION, EPIDURAL, LUMBAR OR SACRAL (CAUDAL), WITH IMAGING GUIDANCE (WRVU 1.8) 04/11/2024 3:07 PM EST - 04/11/2024 3:56 PM EST Hospital Encounter Pain [place] [address] Danyel Rodriguez MD Spinal stenosis of lumbar region with neurogenic claudication Discharge Disposition: Home 04/11/2024 Travel from Last 3 Months Social History Tobacco Use Types Packs/Day Years Used Date Smoking Tobacco: Every Day Cigarettes Smokeless Tobacco: Never Tobacco Cessation:Ready to Q uit: Not Asked; Counseling Given: Not Answered Alcohol Use Standard Drinks/Week Comments Yes 7 [...] Orientation Straight 09/21/2020 3: 34 PM EDT Last Filed Vital Signs Vital Sign Reading Time Taken Comments Blood Pressure 108/72 06/27/2024 2:52 PM EST Pulse 75 06/27/2024 2:52 PM EST Temperature 35.9 ??C (96.7 ??F) 06/27/2024 2:52 PM ES T Respiratory Rate 16 06/27/2024 2:52 PM EST Oxygen Saturation 92% 06/27/2024 2:52 PM EST Inhaled Oxygen Concentration - - Weight 56.2 kg (123 lb 14.4 oz) 06/27/2024 2:52 PM EST Height 148.6 cm (4' 10.5) 06/27/2024 2:52 PM ES T Body Mass Index 25.45 06/27/2024 2:52 PM EST Plan of Treatment Upcoming Encounters Date Type Department Care Team (Late st Contact Info) Description 07/12/2024 8:00 AM EST Hospital Encounter XRay at [address] [place] [place] [address] [place] [address] Scheduled Procedures Name Priority Associated Diagnoses Date/Ti me INJECTION, FACET JOINT, W\FLUORO, LUMBAR, 2ND LEVEL (WRVU 1) Spondylosis of lumbar region without myelopathy or radiculopathy INJECTION, FACET JOINT, W\FLUORO, LUMBAR, SINGLE (WRVU 1.52) Spondylosis of lumbar region without myelopathy or radiculopathy Health Maintenance Due Date Last Done Comments CT Colonography 1950 FIT DNA 1950 FIT 1950 Sigmoidoscopy 1950 Hepatitis C Screening 02/24/1970 Lipid Screening 02/24/1970 Pneumoccocal Vaccine: 50+ (1 of 2 - PCV) 02/24/1971 Tetanus/Diphtheria/Pertussis Vaccines (1 - Tdap) 02/24/1971 Breast Cancer Share Decision Needed 1992 Breast Cancer screening 1992 Zoster vaccine (1 of 2) 02/24/2002 Advance Directive 02/24/2007 RSV Vaccine (1 - Risk 60-74 years 1-dose series) 2012 Bone Density Scan 02/24/2017 Influenza (Flu) vaccine (1 o f 1 - Influenza standard series) 02/07/2024 Pre-DM monitoring (HgbA1C or FBG) 02/07/2025 02/08/2024, 01/26/2024, 01/19/2024, Additional history exists Colonoscopy 02/15/2027 02/16/2024, 02/16/2024 Colorectal Cancer Screening 02/15/2027 Sigmoidoscopy (10 year) with FIT yearly 02/15/2034 02/16/2024, 02/16/2024 Diabetes Screening (HgbA1C o r Glucose) Discontinued 02/08/2024, 01/26/2024, 01/19/2024, Additional history exists Covid-19 Vaccine Completed 03/15/2024, 04/2022, 05/13/2021, Additional history exists Procedures Procedure Name Priority Date/Time Associated Diagnosis Comments PFT SCAN 07/04/2024 12:00 AM EST LAB SCAN 06/14/2024 12:00 AM EST FILM LIBRARY STORAGE ONLY PAIN CLINIC C ARM Routine 04/11/2024 3:57 PM EST Injection Dx/Ther Sbst Intrlmnr Lmbr/Sac W/Img Gdn ([id number]) 04/11/2024 3:31 PM EST Spinal stenosis of lumbar region with neurogenic claudication INJECTION, EPIDURAL, LUMBAR OR SACRAL (CAUDAL), WITH IMAGING GUIDANCE Routine 04/11/2024 3:10 PM EST Spinal stenosis of lumbar region with neurogenic claudication COLONOSCOPY Routine 02/16/2024 7:21 AM EDT BASIC METABOLIC PANEL STAT 02/08/2024 3:32 PM EDT from Last 3 Months or Most Recently Relevant to Health Maintenance Results * Scan Doc: PFT (07/04/2024 12:00 AM EST) Narrative 07/04/2024 12:00 AM EST Ordered by an unspecified provider. Scanning Provider MEDIA MGR SCAN EXT O RDR/RSLT * Scan Doc: Lab (06/14/2024 12:00 AM EST) Narrative 06/14/2024 12:00 AM EST Ordered by an unspecified provider. Scanning Provider MEDIA MGR SCAN EXT O RDR/RSLT * Film Library- Storage Only pain Clinic C-Arm (04/11/2024 3:57 PM EST) Narrative RICARDO - 04/11/2024 3:57 PM EST See PACS for result report. Danyel Rodriguez MD IMG FILM LIBRARY ORD ERABLES [place] * COLONOSCOPY (02/16/2024 7:21 AM EDT) [facility] COLONOSCOPY [facility] Endoscopy Procedure Date: 02/16/2024 7:21 AM ? Patient Name: Mallorie Burgess ? N: [id number] ? Date of : 1950 ? Age: 73 ? Order #: [id number] ? Instrument Name: [id number] ? Procedure: ? Colonoscopy Indications: ? Screening for colorectal malignant ? neoplasm Patient Profile: ? This is a 73 year old female. Providers: ? Sai Grimaldo MD, [place] R. ? RUPA Wade, Gavi Phan Referring : ?Dilan Hernandez MD Requesting Provider: ?? Eliane [...] preparation was evaluated ? using the BBPS (Zamora Bowel ? Preparation Scale) with scores of: [...] MD GENERAL SURGICAL ORD ERABLES [place] * (ABNORMAL) Basic Metabolic Panel (02/08/2024 3:32 PM EDT) Glucose 170 65 - 199 mg/dL 02/08/2024 4:44 PM EDT [facility] Comment:Glucose Concentratio n >=200 mg/dL plus symptoms is consistent with Diabetes Mellitus. Blood Urea Nitrogen 21(H) 8 - 18 mg/dL 02/08/2024 4:44 PM T [facility] Creatinine 1.08 0.70 - 1.20 mg/dL 02/08/2024 4:44 PM T [facility] Sodium 139 135 - 145 mMol/L 02/08/2024 4:44 PM [facility] Potassium 02/08/2024 4:44 PM [facility] Comment:Unable to report due to hemolysis Chloride 95(L) 98 - 107 mMol/L 02/08/2024 4:44 PM [facility] Carbon Dioxide 28 22 - 31 mMol/L 02/08/2024 4:44 PM [facility] Anion Gap 16(H) 5 - 15 mMol/L 02/08/2024 4:44 PM [facility] Calcium 9.1 8.5 - 10.5 mg/dL 02/08/2024 4:44 PM [facility] Est Glomerular Filtration Rate - Female 55 mL/min/1. 73 m?? 02/08/2024 4:44 PM [facility] Comment: This patient's estimated GFR was calculated using the 2020 CKD-EPI equation. The estimated GFR can vary from the measured GFR by up to 30% in the absence of rapidly changing kidney function. Assessment of the estimated GFR is not appropriate when creatinine concentrations are rapidly changing. For clinical situations in which a more precise estimate of GFR is necessary, consider alternative methods of GFR estimation such as a 24-hour urine creatinine clearance. Assignment of CKD stage 1 - 5 for patients with an eGFR near the transition point between stages may be based on clinical assessment of muscle mass and symptoms in addition to eGFR. Link: eGFR Calculator [employer] Blood VENOUS BLOOD SPECIMEN / Unknown Venipuncture / Unknown 02/08/2024 3:32 PM EDT 02/08/2024 3:44 PM EDT Gary Lee MD CHEMISTRY ORDERABLES [facility] [place] [address] from Last 3 Months or Most Recently Relevant to Health Maintenance Advance Directives * Attempt Cardiopulmonary Resuscitation - Inpatient (Latest Code Status on File) Date Activated Date Inactivated Comments 01/16/2024 1:30 AM 01/19/2024 3:12 PM Question Answer Comments Code Status decision made by: Patient Content of discussion: code status Care Teams On Site Property Manager Relationship Specialty Start Date End Date Dilan Hernandez MD [address] [place] [address] [place] [address] PCP - General 04/30/10
--- OUTSIDE RECORDS SUMMARY | 2024-07-07 20:06 | XMS_ITS | Encounter Summary ---
Author Organization [facility] Address [facility] [place] [address] Care Team Providers Care Assistant Manager Trainee Name Role Phone Dilan Hernandez MD Primary Care Provider [phone] Encounter Details Date Type Department Care Team (Latest Contact Info) Description 06/27/2024 Travel Social History Tobacco Use Types Packs/Day [...] 8:00 AM EST Hospital Encounter XRay at [address] [place] [address] Eliane Peterson APRN [facility] [place] [address] Scheduled Procedures Name Priority Associated Diagnoses Date/Ti me INJECTION, FACET JOINT, W\FLUORO, LUMBAR, 2ND LEVEL (WRVU 1) Spondylosis of lumbar region without myelopathy or radiculopathy INJECTION, FACET JOINT, W\FLUORO, LUMBAR, SINGLE (WRVU 1.52) Spondylosis of lumbar region without myelopathy or radiculopathy documented as of this encounter Visit Diagnoses Not on filedocumented in this encounter Care Teams Assistant Manager Trainee Relationship Specialty Start Date End Date Dilan Hernandez MD [address] [place] [address] [place] [id number] PCP - General 04/30/10 documented as of this encounter
--- OUTSIDE RECORDS SUMMARY | 2024-07-07 20:06 | XMS_ITS | Encounter Summary ---
[place] [address] Care Team Providers Care Pest Control Service Technician Name Role Phone Dilan Hernandez MD Primary Care Provider [phone] Reason for Visit * Diagnostic Test (Routine) - Closed Specialty Diagnoses / Procedures Referred By Albert castaneda Referred To Contact Gastroenterology Diagnoses Altered bowel function ARM for constipation Procedures High Definition Anal Manometry PRG ANORECTAL MANOMETRY PRG RECTAL SESATION TONE & COMPLIANCE TEST Eliane Peterson, [place] [address] [facility] [address] [place] [address] Referral ID Status Reason Start Date Expiration Date V isits Requested Visits Authorized [id number] Closed Consult, Test & Treat 12/16/2023 12/15/2024 1 1 Encounter Details Date Type Department Care Team (Latest Contact Info) Description 02/19/2024 3:00 PM EDT Procedure [place] [address] Altered bowel function Social History Tobacco Use Types Packs/Day Years Used Date Smoking Tobacco: Every Day Cigarettes Smokeless Tobacco: Never Alcohol Use Standard Drinks/Week Comments Yes 7 (1 standard drink = 0.6 oz pur e alcohol) 1 drink a day [facility] Inpatient Questions Answer Date Recorded [...] PM EDT documented as of this encounter Progress Notes * Magalie Escudero RN - 02/19/2024 3:00 PM EDT A description of the anal manometry procedure was provided to the patient. All questions were answered and the patient verbalized understanding. After performing a digital rectal exam, the HRAM probe was placed in the rectum without difficulty and the procedure was performed. After removal of the probe, an anorectal balloon expulsion catheterwas placed in the rectum for continuation of the study. Patient is able to expel balloon in 10 seconds while in sitting position. The patient tolerated the procedure well. Sensation 60 cc Urge 110 cc Discomfort 170 cc * Aravind Patel MD - 02/19/2024 3:00 PM EDT Re: Mallorie Burgess Reg No:[id number] : 1950 Date of Service: 02/19/2024 ANORECTAL MANOMETRY w/BALLOON EXPULSION Referring provider:Eliane Peterson Dear: Dr. Peterson We had the pleasure of performing a high resolution anorectal manometry on your patient in the GI Motility Laboratory at [facility]. CLINICAL HISTORY AND INDICATION As you know, she is a 73 y.o. female with complaints of constipation RESULTS Resting sphincter pressure (NL Value: Males 70-100, Females 70-90) : 76 mmHg Max squeeze pressure (NL Value: Males 240-300, Females 160-200) : 181 mmHg Squeeze duration: good (sustaining at least 50% of the difference between maximum squeeze and resting pressures for 10 to 20 seconds). Rectoanal inhibitory reflex: present at 60 ccs balloon distention Response to coughing: normal (cough elicits a pressure greater than or equal to double the resting pressure). No dyssynergia evident on push maneuvers. Rectal Sensation: Threshold (NL Value: 30-70): 60mL Urgency (NL Value: 80-130): 110mL Maximum tolerated (NL Value: 130-200): 170mL Balloon expulsion test: 10 seconds in seated position IMPRESSION No overall evidence of dyssynergic defecation on anorectal manometry or balloon expulsion test. Resting anal sphincter pressure reflecting internal sphincter function was normal. Maximum squeeze pressures reflecting external sphincter function were normal. Rectal sensation was normal. Aravind Patel MD, FRCPC Section of Gastroenterology and Hepatology Formerly [facility] [place] [address] V: [phone] F: [phone] CC/EC: Dilan Hernandez MD [address] [place] [address] [place] [phone] documented in this encounter Plan of Treatment Upcoming Encounters Date Type Department Care Team (Late st Contact Info) Description 07/12/2024 8:00 AM EST Hospital Encounter XRay at [address] [place] [address] [place] [address] Scheduled Procedures Name Priority Associated Diagnoses Date/Ti me INJECTION, FACET JOINT, W\FLUORO, LUMBAR, 2ND LEVEL (WRVU 1) Spondylosis of lumbar region without myelopathy or radiculopathy INJECTION, FACET JOINT, W\FLUORO, LUMBAR, SINGLE (WRVU 1.52) Spondylosis of lumbar region without myelopathy or radiculopathy documented as of this encounter Visit Diagnoses Diagnosis Altered bowel function Other symptoms involving digestive system documented in this encounter Care Teams Pest Control Service Technician Relationship Specialty Start Date End Date Dilan Hernandez MD [address] [place] [address] BRYCE Beltran [phone] PCP - General 04/30/10 documented as of this encounter
--- OUTSIDE RECORDS SUMMARY | 2024-07-07 20:06 | XMS_ITS | Encounter Summary ---
Author Organization [facility] [place] [address] Care Team Providers Care Mix Chemist Name Role Phone Dilan Hernandez MD Primary Care Provider [phone] Encounter Details Date Type Department Care Team (Late st Contact Info) Description 06/10/2024 Telephone [facility] [place] [address] Tania Flores, AUTUMN Social History Tobacco Use Types Packs/Day Years Used Date Smoking Tobacco: Every Day Cigarettes Smokeless Tobacco: Never Alcohol Use Standard Drinks/Week Comments Yes 7 (1 standard drink = 0.6 oz pur e alcohol) 1 drink a day [facility] Inpatient Questions Answer Date Recorded Does [...] encounter Miscellaneous Notes * Telephone Encounter - Tania Flores CCMA - 06/10/2024 9:32 AM EST I called pt to R/S her upcoming jun 17, procedure Lumbar MBB- to PM appt as requested by dept- Pt procedure is rescheduled for 3pm - however in this call pt does note she has had recent uti, where she just finished her large dose of abx, and now takes a 1/2 40mg bactrim daily Appt rs is resolved- Just want to verify w Clinical if this changes anything re: her being able to complete procedure for this date I spoke to RN Ariane- per Ariane procedure need to be canceled and pt needs to obtain clearance from her prescriber for recent uti ABX - at which point ---- Per Ariane proc CX- I called pt no answer, lvm letting her know we did need to cx procedure and to please reach out to prescriber for recent uti to discuss procedure clearance- (14days after last dose of abx repeat urine, if clear we can reschedule) along w my direct line if pt has further questions- jmk documented in this encounter Plan of Treatment Upcoming Encounters Date Type Department Care Team (Late st Contact Info) Description 07/12/2024 8:00 AM EST Hospital Encounter XRay at [address] [place] [address] Eliane Peterson, [place] [address] Scheduled Procedures Name Priority Associated Diagnoses Date/Ti me INJECTION, FACET JOINT, W\FLUORO, LUMBAR, 2ND LEVEL (WRVU 1) Spondylosis of lumbar region without myelopathy or radiculopathy INJECTION, FACET JOINT, W\FLUORO, LUMBAR, SINGLE (WRVU 1.52) Spondylosis of lumbar region without myelopathy or radiculopathy documented as of this encounter Visit Diagnoses Not on filedocumented in this encounter Care Teams Mix Chemist Relationship Specialty Start Date End Date Dilan Hernandez MD [address] [place] [address] [place] [address] PCP - General 04/30/10 documented as of this encounter
--- OUTSIDE RECORDS SUMMARY | 2024-07-07 20:06 | XMS_ITS | Encounter Summary ---
Author Organization [facility] [place] [address] Care Team Providers Care Pipe Chipper Name Role Phone Dilan Hernandez MD Primary Care Provider [phone] Encounter Details Date Type Department Care Team (Latest Contact Info) Description 05/10/2024 8:30 AM EST TH Visit (TeleHealth) [place] [address] Tabatha Fernández, SHANK STITCHER [facility] [place] [place] [address] Spondylosis of lumbar region without myelopathy or radiculopathy (Primary Dx) Social History Tobacco Use Types Packs/Day Years Used Date Smoking Tobacco: Every Day Cigarettes Smokeless Tobacco: Never Alcohol Use Standard Drinks/Week Comments Yes 7 (1 standard drink = 0.6 oz pur e alcohol) 1 drink a day [facility] Inpatient Questions Answer Date Recorded [...] PM EDT documented as of this encounter Patient Instructions * Patient Instructions* Tabatha Fernández, JEFF - 05/10/2024 8:30 AM EST I have ordered the following injection plan for you: Medial Branch Blocks with Radiofrequency Ablation (RFA) - as a reminder, this process involves 2 test injection appointments (medical branch blocks) prior to the RFA Can I eat and/or drink prior to my procedure? You are not required to fast for this procedure. Labwork You do not require any lab work for your procedure. As a reminder, you will need to hold the following medications prior to your procedure. If you are required to hold a blood thinner we will need to obtain clearance from your prescribing provider prior to scheduling the procedure. You do not need to hold any of the medications that are currently prescribed. Will I need a freight delivery driver? You do not require a freight delivery driver for this procedure Scheduling: Our scheduling team will work on prior authorization from your insurance provider and will call youfor scheduling. If you have questions about scheduling your injection, please call the scheduling team at . Please call the office [phone] and ask to speak with a nurse if any of the following occurs within 14 days prior to your injection/procedure: [x]You have begun taking steroids or antibiotics [x]You have had any changes in your health status or medications [x]You have started taking a blood thinner I have ordered the following injection plan for you: documented in this encounter Progress Notes * Tabatha Fernández APRN - 05/10/2024 8:30 AM EST [facility] - Follow Up Note [facility] Telemedicine Visit Verbal consent: The concept of ???Telemedicine?? has been described to the patient. Patient has been informed of the anticipated benefits and possible risks. Patient understands the information provided regarding telemedicine, has had the opportunity to ask questions about this information, and all questions havebeen answered to patient???s satisfaction. Patient consents for the use of telemedicine in his/her medical care and authorizes the transmission of any relevant medical information to providers and their staff involved in patient???s medical or mental health care. Verbal consent obtained by myself or auxiliary staff: Yes Patient Location: Home Provider Location: Office Date of visit: 05/10/24 : 1950 CC: No chief complaint on file. HPI: Mallorie Burgess is a 74 y.o. year old female who presents to the pain clinic today for follow up in regards to her recent LESI with Dr. Rodriguez on 04/11/24. Patient notes that the injection didn't help her back pain or leg pain. Patient reports she had new pain going down the anterior aspect of her thighs for a while, which has resolved. Patient reports she gets foot cramps that have become more frequent. Patient states that the back pain starts in the medial aspect of her lower back and radiates to her legs from there. she was last seen on 02/19/24. she underwent an LESI. she has had 0% improvement of her symptoms after the injection. PRIOR INTERVENTIONS: Currently the patient's pain is described as involving the low back and BLE area. Today, the patient rates the pain a 8/10 and ranges from a 8 to 10 ; describes the pain as constant. Patient notes the pain is better when she uses voltaren gel. The pain does radiate down her legs bilaterally. Overall the pain affects activities of daily living to include: walking, standing. The patient continues with PT/home exercise. PMH/PSH: Patient Active Problem List Diagnosis Code DDD (degenerative disc disease), lumbar M51.369 Low back pain, non-specific M54.50 Spondylosis of [...] breath) on exertion R06.02 Tobacco abuse Z72.0 Past Medical History: Diagnosis Date COPD (chronic obstructive pulmonary disease) Pre-diabetes Past Surgical History: Procedure Laterality Date COLON SURGERY bladder and colon ECTOPIC SURGERY OVARIAN CYST SURGERY PRO COLONOSCOPY, REMV LESN, SNARE N/A 02/16/2024 COLONOSCOPY, POLYPECTOMY, REMOVAL LESION BY SNARE (WRVU 4.57) performed by [facility] ENDOSCOPY PRO INJECTION DX/THER SBST INTRLMNR LMBR/SAC W/IMG GDN Midline 04/11/2024 INJECTION, EPIDURAL, LUMBAR OR SACRAL (CAUDAL), WITH IMAGING GUIDANCE (WRVU 1.8) performed by Danyel Rodriguez MD at [facility] PAIN MGMT MSO PRO UPPER GI ENDOSCOPY, DIAGNOSTIC N/A 02/16/2024 EGD, UPPER GI ENDOSCOPY (WRVU 2.09) performed by Sai Grimaldo MD at [facility] ENDOSCOPY TUBAL LIGATION FAMILY HISTORY: No family history on file. SOCIAL HISTORY: Social History Socioeconomic History Marital status: Spouse name: Not on file Number of children: Not on file Years of education: Not on file Highest education level: Not on file Occupational History Not on file Tobacco Use Smoking status: Every Day Current packs/day: 1.50 Types: Cigarettes Smokeless tobacco: Never Vaping Use Vaping status: Never Used Substance and Sexual Activity Alcohol use: Yes Alcohol/week: 7.0 standard drinks of alcohol Types: 7 Shots of liquor per week Comment: 1 drink a day Drug use: Not Currently Sexual activity: Not on file Other Topics Concern Not on file Social History Narrative Not on file Social Determinants of Health Financial Resource Strain: Not on file Food Insecurity: Not on file Transportation Needs: Not on file Physical Activity: Not on file Intimate Partner Violence: Not At Risk (02/08/2024) IPV Inpatient Questions Prevent Contact with Others: no Feels Threatened by Someone: no Feels Unsafe at Home: no Physical Signs of Abuse Present: no Housing Stability: Not on file MEDICATIONS: Current Outpatient Medications: ipratropium-albuteroL (Duoneb) 0.5 mg-3 mg(2.5 mg base)/3 mL Solution for Nebulization, USE 1 AMPULE IN NEBULIZER EVERY 4 HOURS NEEDED FOR SHORTNESS OF BREATH FOR WHEEZING, Disp: , Rfl: omeprazole (PriLOSEC) [address] capsule, Take 40 mg by mouth daily., Disp: , Rfl: torsemide (Demadex) 10 mg tablet, Take 1 tablet by mouth Daily at Noon., Disp: , Rfl: azithromycin (Zithromax) 500 mg tablet, Take 1 tablet by mouth three times a week (Mon, Weds, Fri)., Disp: 39 tablet, Rfl: 1 metFORMIN (Glucophage) 500 mg tablet, Take 500 mg by mouth 2 times daily (with meals)., Disp: , Rfl: spironolactone (Aldactone) 25 mg tablet, Take 0.5 tablets by mouth daily., Disp: , Rfl: Ozempic 0.25 mg or 0.5 mg (2 mg/3 mL) Pen Injector, Inject 0.25 mg subcutaneously once a week., Disp: , Rfl: szapjphxom-qjreypwluovbjt-iapvgxvbio (Breztri Aerosphere) 160-9-4.8 mcg/actuation inhaler (HFA), 2 puffs, Inhale, BID, rinse mouth and throat after use, # 5.9 g, 0 Refill(s), Disp: , Rfl: cephALEXin (Keflex) 250 mg capsule, Take 1 capsule by mouth Daily at Noon., Disp: , Rfl: ferrous sulfate 324 mg (65 mg iron) Tablet, Delayed Release (E.C.), Take 324 mg by mouth every other day., Disp: , Rfl: escitalopram (Lexapro) 10 mg Tablet, Take 10 mg by mouth daily., Disp: , Rfl: PROAIR HFA 90 mcg/actuation HFA Aerosol Inhaler, INHALE TWO PUFFS BY MOUTH EVERY 4 HOURS NEEDED,Disp: , Rfl: pramipexole (MIRAPEX) 1 mg Tablet, Take 1.5 mg by mouth 2 times daily., Disp: , Rfl: ALLERGIES: No Known Allergies ROS: Review of Systems Patient reports the following as relevant issues in their health lately: pain in the lumbar spine and pain in the BLE PHYSICAL EXAM: There were no vitals taken for this visit. ( Telehealth) Physical Exam Physical exam not performed today given the nature of the telehealth visit. TESTS / IMAGING: MRI - Cervical: No results found. Thoracic : No results found. Lumbar : No results found. Other: No results found. DIAGNOSIS: Spinal stenosis of lumbar region with neurogenic claudication ASSESSMENT: Mallorie Burgess is a 73 y.o. female who presents today for follow up for a follow-up on her recent LESI with Dr. Rodriguez on 04/11/24. Patient reports 0% improvement. I have discussed a potential LMBB that would be better suited to relieve her pain. The patient agrees to the procedure. PLAN: Plan/Recommendations: We reviewed etiology, predisposing factor(s), natural [...] indicated at this time. - Physical therapy/modalities/DME: Advised patient to continue home exercise program. - Interventional/Surgical procedures: Patient will return to the clinic for bilateral Lumbar Medial Branch Block - DIAGNOSTIC - L3, L4, and L5 DRDoreen Risks and benefits were discussed. The patient is willing to proceed. Justification of Medical Necessity MBB/RFA: Facet generated pain is located bilaterally. There is a radicular component or neurogenic claudication present that has been addressed, and is stable through maximization of conservative treatment via injection.. There has not been improvement in pain or performance of ADLs after at least 6 weeks of conservative treatment within the last 6 months as indicated in detail in the body of today's visit note. First Diagnostic MBB via Fluoroscopic guidance as indicated in the plan is recommended based on a lack of positive response to consistent, compliant conservative treatment for 6 weeks within the last6 months. Procedure: Lumbar Medial Branch Block - DIAGNOSTIC - L3, L4, and L5 Laterality: Bilateral Contrast Required? Yes Pertinent Medical History - h/o Thrombocytopenia/bleeding tendency/platelet dysfunction: no - h/o Liver disease/abnormal liver function: no - h/o Chronic kidney disease (CKD)/abnormal kidney function: no - Patient on dialysis? no - Is patient a diabetic?Yes Hemoglobin A1C? 5.1 ? Reports was done at [facility] Risk Stratification - Low Is patient taking an anticoagulant? No Is patient taking any NSAIDs/Nutritional Supplements? Yes, patient does not need to hold occasionalibuprofen Is patient taking Aspirin? No Is patient taking Antibiotics? Maintenance cephelexin for chronic UTI Has patient been on greater than 40mg of steroid 14 days or longer or has patient had a steroid injection within the last two weeks? No Does patient have allergies to contrast/local anesthetic/steroid? No Labs? N/A Imaging? In Chart Does patient need IV? no Does patient need sedation? no Does patient need NPO guidelines? no Special Instructions - Playback Operator NOT Required Follow up post procedure - (For Sequential Injections ONLY (i.e. MBBs, Genicular NB)) Pain RN to Call Patient to Obtain Pain Relief/Scores - Referrals: No additional referrals at this time. - Activity: Continue activity as tolerated. - Follow-up: Patient will follow up with me 3-4 weeks after her nerve block to update me on her pain improvement and determine whether to follow through with the 2nd diagnostic nerve block. Tabatha Fernández, MS, ENGLISH INSTRUCTOR-BC, SHANK STITCHER Nurse practitioner Pain management [facility] Francesco Corea, have performed the documentation for this encounter in the presence of and acting as a scribe for Tabatha Fernández APRN. documented in this encounter Plan of Treatment Upcoming Encounters Date Type Department Care Team (Late st Contact Info) Description 07/12/2024 8:00 AM EST Hospital Encounter XRay at [address] [place] [address] [place] [address] Scheduled Orders Name Type Priority Associated Diagnoses Orde r Schedule SURGICAL CASE REQUEST: INJECTION, FACET JOINT, W\FLUORO, LUMBAR, 2ND LEVEL (WRVU 1), INJECTION, FACET JOINT, W\FLUORO, LUMBAR, SINGLE (WRVU 1.52) Procedures Routine Spondylosis of lumbar region without myelopathy or radiculopathy Ordered: 05/10/2024 Scheduled Procedures Name Priority Associated Diagnoses Date/Ti me INJECTION, FACET JOINT, W\FLUORO, LUMBAR, 2ND LEVEL (WRVU 1) Spondylosis of lumbar region without myelopathy or radiculopathy INJECTION, FACET JOINT, W\FLUORO, LUMBAR, SINGLE (WRVU 1.52) Spondylosis of lumbar region without myelopathy or radiculopathy documented as of this encounter Visit Diagnoses Diagnosis Spondylosis of lumbar region without myelopathy or radiculopathy- Primary Lumbosacral spondylosis without myelopathy documented in this encounter Care Teams Pipe Chipper Relationship Specialty Start Date End Date Dilan Hernandez MD [address] [place] [address] [place] [phone] PCP - General 04/30/10 documented as of this encounter
--- OUTSIDE RECORDS SUMMARY | 2024-07-07 20:06 | XMS_ITS | Continuity of Care Document ---
Author Organization [facility] Address [address] [place] [id number] Care Team Providers Care Mail Courier Name Role Phone NOT IN DICTIONARY Primary Care Physician Unavail able Encounter [facility] [id number] Date(s): 09/07/22 - 09/11/[address] [id number] Encounter Diagnosis Encephalopathy(Discharge Diagnosis) - 09/08/22 Choreiform movements(Discharge Diagnosis) - 09/08/22 Fever(Discharge Diagnosis) - 09/08/22 Acute kidney injury(Discharge Diagnosis) - 09/08/22 Restless legs syndrome(Discharge Diagnosis) - 09/08/22 Depression(Discharge Diagnosis) - 09/08/22 Discharge Disposition: 01 Home Attending Physician: JD ANDRE MD Attending Physician: OSCAR MESA MD Attending Physician: KOJO MONREAL MD Admitting Physician: KOJO MONREAL MD Allergies, Adverse Reactions, Alerts No Known Allergies Assessment and Plan Extracted from: Title:Discharge Summary Note Author:JD ANDRE MD Date:09/11/22 Restless legs syndrome Depression COPD Extracted from: Title:History and Physical Note Author:KOJO RICHARD MD Date:09/08/22 Patient is a 72-year-old fem johann with history of restless legs syndrome and depression, who presents to the ER with 2 - 3 days of fever and chills and worsening of involuntary body movements.?? She also notes having not taken her medications, including Lexapro and pramipexole, for a few days.?? She first noted chills 3 days ago, and then noted a fever yesterday.?? She denies any cough or URI symptoms.?? She denies nausea, vomiting, abdominal pain or diarrhea.?? Upon arrival to the ER, she was febrile and tachycardic.?? She was noted to have choreiform type movements of all 4 limbs, and was notably restless, frequently jumping up from the stretcher to move around.?? She stated that these movements were involuntary.?? She also seemed somewhat confused at times.?? Laboratory workup revealed leukocytosis and acute renal failure.?? Imaging studies were unremarkable.?? A lumbar puncture was done, the results of which are still pending.?? She was empirically placed on Ceftriaxone, Vancomycin and Acyclovir.?? Even after multiple doses of benzodiazepines, she was still having choreiform type movements, so she was placed on a Precedex drip.?? She is being admitted to Critical Care. Extracted from: Title:ECC Dictation Author:GOGO PAN DO ate:09/08/22 Impression and Plan 72-year-old female presents for evaluation of what appears to be choreiform movements, fever. Vital signs reveal fever, tachycardia. We will administer antipyretics begin infectious work-up. Plan for CT head. Diagnostic Tests Pending * DNASE-B Ab - Ref Lab 09/07/22 Medications Albuterol (Eqv-ProAir HFA) 90 mcg/inh inhalation aerosol 2 PUFF, Inhale, [id number], PRN as needed for wheezing Start Date: 09/07/22 Status: Ordered ascorbic acid 500 mg oral tablet 500 MG = 1 TAB, PO, QDay Start Date: 09/07/22 Status: Ordered cholecalciferol 2000 intl units oral tablet 50 MCG = 1 TAB, PO, QDay Start Date: 09/07/22 Status: Ordered escitalopram 10 mg oral tablet 10 MG = 1 TAB, PO, QDay Start Date: 09/07/22 Status: Ordered ferrous sulfate 325 mg (65 mg elemental iron) oral tablet 325 MG = 1 TAB, PO, QDay Start Date: 09/07/22 Status: Ordered Lyrica 50 mg oral capsule 50 MG = 1 CAP, PO, TID, # 90 CAP, 0 Refill(s), Pharmacy: [facility], 165, cm, 09/08/22 6:58:00 EDT, Height/Length Measured Start Date: 09/11/22 Status: Ordered pramipexole 3 mg oral tablet, extended release 3 MG = 1 TAB, PO, QDay Start Date: 09/07/22 Status: Ordered Trelegy Ellipta inhalation powder = 1 PUFF, Inhale, QDay Start Date: 09/07/22 Status: Ordered Problem List Condition Effective Dates Status Health Status Inform ant Depression(Confirmed) Active Restless legs syndrome(Confirmed) Active Diagnosis Diagnosis Type Effective Dates Health Status Clinical Service Informant Encephalopathy Discharge Diagnosis 09/08/22 Choreiform movements Discharge Diagnosis 09/08/22 Restless legs syndrome Discharge Diagnosis 09/08/22 Depression Discharge Diagnosis 09/08/22 Fever Discharge Diagnosis 09/08/22 Acute kidney injury Discharge Diagnosis 09/08/22 Procedures Procedure Date Related Diagnosis Body Site Status Collection of venous blood b y venipuncture 09/10/22 Completed Collection of venous blood b y venipuncture 09/09/22 Completed Collection of venous blood b y venipuncture 09/09/22 Completed Collection of venous blood b y venipuncture 09/09/22 Completed Collection of venous blood b y venipuncture 09/09/22 Completed Collection of venous blood b y venipuncture 09/09/22 Completed Collection of venous blood b y venipuncture 09/09/22 Completed Collection of venous blood b y venipuncture 09/09/22 Completed Arterial puncture, withdrawa l of blood for diagnosis 09/08/22 Completed Collection of venous blood b y venipuncture 09/08/22 Completed Collection of venous blood b y venipuncture 09/08/22 Completed Collection of venous blood b y venipuncture 09/08/22 Completed Collection of venous blood b y venipuncture 09/08/22 Completed Collection of venous blood b y venipuncture 09/08/22 Completed Collection of venous blood b y venipuncture 09/08/22 Completed Collection of venous blood b y venipuncture 09/08/22 Completed Collection of venous blood b y venipuncture 09/07/22 Completed Collection of venous blood b y venipuncture 09/07/22 Completed Results Orders for Microbiology Reports Name Date Urine Culture 09/09/22 Blood Culture 09/07/22 Blood Culture 09/07/22 Microbiology Reports TEST:Urine Culture STATUS:Auth (Verified) BODY SITE: SOURCE:Urine - Clean Voided Specimen COLLECTED DATE/TIME:09/09/22 3:05 PM FINAL REPORT No Growth After 1 Day of Incubation. TEST:Blood Culture STATUS:Order in Progress BODY SITE: SOURCE:Blood-Peripheral COLLECTED DATE/TIME:09/07/22 11:06 PM PRELIMINARY REPORT The Specimen is being Monitored by the [employer] Blood Culture Instrument. Further Reports will be Issued in the Event of a Positive Signal, OR Upon Completion of the 5 Day Incubation Period. TEST:Blood Culture STATUS:Order in Progress BODY SITE: SOURCE:Blood-Peripheral COLLECTED DATE/TIME:09/07/22 10:59 PM PRELIMINARY REPORT The Specimen is being Monitored by the [employer] Blood Culture Instrument. Further Reports will be Issued in the Event of a Positive Signal, OR Upon Completion of the 5 Day Incubation Period. Radiology Reports * Exam Date Time Procedure Performing Provider Status 09/09/22 1:[address] ABD/Pelvis w/ IV Contrast Jes Nunes (Reported) Notes: (CT ABD/Pelvis w/ IV Contrast) Reason For Exam: fuo CT READ PROVIDED HISTORY: fuo ADD'L HISTORY: - TECHNIQUE: Following IV contrast administration, CT imaging was performed of the CHEST ABDOMEN AND PELVIS. Axial and coronal reconstructed images were provided by the technologist. COMPARISON: No previous FINDINGS: MEDIASTINUM/HALEIGH: Thyroid grossly normal. Scattered nonenlarged lymph nodes. No lymphadenopathy. LUNGS/PLEURA: Minimal bibasilar and biapical subsegmental atelectasis. No acute pulmonary infiltrates. No pneumothorax or effusion. AORTA: Normal in contour. PULM. ARTERIES: Normal contours. HEART: No cardiomegaly. Trace effusion. Scattered coronary calcifications evident. CHEST WALL: No axillary or supraclavicular adenopathy. LIVER: Homogeneous without mass. GALLBLADDER: No evidence of acute biliary obstruction. ADRENALS: Normal in contour. PANCREAS: No gross mass or inflammation. SPLEEN: Grossly homogeneous. Small accessory spleen left upper quadrant. KIDNEYS: Mottled enhancement of the upper LEFT kidney with delayed nephrogram of the upper pole. Minimal lower pole enhancement patterns normal. Possible nonobstructing RIGHT lower pole calyceal calculus measuring about 9 mm. Mild RIGHT hydroureteronephrosis with RIGHT ureter mildly dilated down tothe bladder. There are bilateral phleboliths but no definite ureteral calculus. VASCULAR: Scattered calcific plaque visible in the wall of the aorta without aneurysm. STOMACH/BOWEL: No segmental bowel edema or dilatation. RETROPERITONEUM: Scattered nonenlarged lymph nodes; no adenopathy. REPRODUCTIVE: Uterus and adnexa appear surgically absent. BLADDER: Trace air within the lumen; no mass lesions or inflammatory changes. There is linear soft tissue stranding toward the umbilicus could represent remnant of urachus. BONES: Throughout the lower thoracic and lumbar spine there appears to the diffusely sclerotic pattern in a nonfocal distribution suggestive of metabolic etiologies such as renal osteodystrophy or calcium metabolism disorder; no aggressive bony lesions identified. The heights of the vertebral bodies are maintained. No active erosions. OTHER: No ascites. IMPRESSION: Mottled enhancement pattern of the LEFT mid to upper kidney consistent with edema or partial infarct; differential includes hilar nephritis, embolization secondary to endocarditis. Right mild hydroureteronephrosis without identifiable source; differential includes obstruction secondary to nonradiopaque calculus, mass lesion of distal bladder or ureter. Consider repeat study with hematuria protocol to allow for delayed opacification of the collecting systems. Probable nonobstructing RIGHT intrarenal calculus. Trace air within the lumen of the urinary bladder; differential includes fistulization to skin or bowel, possible patent urachal remnant, recent urinary catheterization. No active inflammatory changeof the bladder. Diffusely sclerotic pattern of the thoracolumbar spine with a coarse diffuse distribution suggesting metabolic bone disease such as renal osteodystrophy. Marrow neoplasm cannot be excluded. Recommendcorrelation with blood counts and metabolic parameters. Additional incidental and/or chronic findings as described above. This CT exam was performed using one or more of the following dose reduction techniques: Automated exposure control, adjustment of the mA and/or kV according to patient size, and/or use of iterative reconstruction technique. This report was partially generated using voice recognition software, which may result in incorrectwords, misspellings, and punctuation errors that were not noted during review before finalization. FINAL REPORT Dictated By: CATHIE HERNANDEZ MD Electronically Signed By: CATHIE HERNANDEZ MD Signed Date/Time: 09/09/22 14:17:31 * Exam Date Time Procedure Performing Provider Status 09/09/22 1:[address] Chest with Contrast Delicia Nunes; Nisha (Reported) Notes: (CT Chest with Contrast) Reason For Exam: fuo CT READ PROVIDED HISTORY: fuo ADD'L HISTORY: - TECHNIQUE: Following IV contrast administration, CT imaging was performed of the CHEST ABDOMEN AND PELVIS. Axial and coronal reconstructed images were provided by the technologist. COMPARISON: No previous FINDINGS: MEDIASTINUM/HALEIGH: Thyroid grossly normal. Scattered nonenlarged lymph nodes. No lymphadenopathy. LUNGS/PLEURA: Minimal bibasilar and biapical subsegmental atelectasis. No acute pulmonary infiltrates. No pneumothorax or effusion. AORTA: Normal in contour. PULM. ARTERIES: Normal contours. HEART: No cardiomegaly. Trace effusion. Scattered coronary calcifications evident. CHEST WALL: No axillary or supraclavicular adenopathy. LIVER: Homogeneous without mass. GALLBLADDER: No evidence of acute biliary obstruction. ADRENALS: Normal in contour. PANCREAS: No gross mass or inflammation. SPLEEN: Grossly homogeneous. Small accessory spleen left upper quadrant. KIDNEYS: Mottled enhancement of the upper LEFT kidney with delayed nephrogram of the upper pole. Minimal lower pole enhancement patterns normal. Possible nonobstructing RIGHT lower pole calyceal calculus measuring about 9 mm. Mild RIGHT hydroureteronephrosis with RIGHT ureter mildly dilated down tothe bladder. There are bilateral phleboliths but no definite ureteral calculus. VASCULAR: Scattered calcific plaque visible in the wall of the aorta without aneurysm. STOMACH/BOWEL: No segmental bowel edema or dilatation. RETROPERITONEUM: Scattered nonenlarged lymph nodes; no adenopathy. REPRODUCTIVE: Uterus and adnexa appear surgically absent. BLADDER: Trace air within the lumen; no mass lesions or inflammatory changes. There is linear soft tissue stranding toward the umbilicus could represent remnant of urachus. BONES: Throughout the lower thoracic and lumbar spine there appears to the diffusely sclerotic pattern in a nonfocal distribution suggestive of metabolic etiologies such as renal osteodystrophy or calcium metabolism disorder; no aggressive bony lesions identified. The heights of the vertebral bodies are maintained. No active erosions. OTHER: No ascites. IMPRESSION: Mottled enhancement pattern of the LEFT mid to upper kidney consistent with edema or partial infarct; differential includes hilar nephritis, embolization secondary to endocarditis. Right mild hydroureteronephrosis without identifiable source; differential includes obstruction secondary to nonradiopaque calculus, mass lesion of distal bladder or ureter. Consider repeat study with hematuria protocol to allow for delayed opacification of the collecting systems. Probable nonobstructing RIGHT intrarenal calculus. Trace air within the lumen of the urinary bladder; differential includes fistulization to skin or bowel, possible patent urachal remnant, recent urinary catheterization. No active inflammatory changeof the bladder. Diffusely sclerotic pattern of the thoracolumbar spine with a coarse diffuse distribution suggesting metabolic bone disease such as renal osteodystrophy. Marrow neoplasm cannot be excluded. Recommendcorrelation with blood counts and metabolic parameters. Additional incidental and/or chronic findings as described above. This CT exam was performed using one or more of the following dose reduction techniques: Automated exposure control, adjustment of the mA and/or kV according to patient size, and/or use of iterative reconstruction technique. This report was partially generated using voice recognition software, which may result in incorrectwords, misspellings, and punctuation errors that were not noted during review before finalization. FINAL REPORT Dictated By: CATHIE HERNANDEZ MD Electronically Signed By: CATHIE HERNANDEZ MD Signed Date/Time: 09/09/22 14:17:31 * Exam Date Time Procedure Performing Provider Status 09/07/22 11:[address] Head Manasa Robison; Nisha (Reported) Notes: (CT Head) Reason For Exam: Headache, choreiform movements, sudden onset CT READ HISTORY SUBMITTED: Headache, choreiform movements, sudden onset ADD'L HISTORY: - TECHNIQUE: NONCONTRAST computerized axial tomography was performed of the HEAD. Axial, sagittal, and coronal reconstructed images were provided by the technologist. COMPARISON: No Previous FINDINGS: CEREBRUM/CEREBELLUM: No acute intra-axial or extra-axial fluid collections identified. No acute parenchymal edema or hemorrhage identified. Mild diffuse decrease of white matter attenuation consistent with microvascular changes. VENTRICLES: Normal size and contour. Basilar cisterns are preserved. CALVARIUM: No depressed fracture or surgical change. SINUSES: Paranasal sinuses and temporal bone sinuses are clear. SCALP: No focal lesions or acute edema. IMPRESSION: Probable chronic microvascular changes of the hemispheric white matter. No acute intracranial pathology identified on CT examination. Cranial MRI should be strongly considered as a more sensitive test to detect acute intracranial pathology such as ischemia or edema if medically appropriate. [facility] Code: NH1 - Concur with preliminary report issue by [facility] . This CT exam was performed using one or more of the following dose reduction techniques: Automated exposure control, adjustment of the mA and/or kV according to patient size, and/or use of iterative reconstruction technique. This report was partially generated using voice recognition software, which may result in incorrectwords, misspellings, and punctuation errors that were not noted during review before finalization. FINAL REPORT Dictated By: CATHIE HERNANDEZ MD Electronically Signed By: CATHIE HERNANDEZ MD Signed Date/Time: 09/08/22 06:17:37 * Exam Date Time Procedure Performing Provider Status 09/07/22 8:17 PM Chest One View Sujey Sanders; Nisha ( Reported) Notes: (Chest One View) Reason For Exam: Chest Pain DX READ HISTORY: Chest Pain COMPARISON: None VIEWS: Chest radiograph-one view. FINDINGS: Lines/Tubes/Devices: None. Lungs: No pneumothorax. No discrete focal consolidation. No overt edema. No appreciable pleural effusion. Cardiomediastinal Silhouette: Appropriate in size Osseous: Degenerative changes of AC joints. IMPRESSION: No acute cardiopulmonary process. FINAL REPORT Dictated By: LEXI RAMSAY DO Electronically Signed By: LEXI RAMSAY DO Signed Date/Time: 09/07/22 20:24:17 Vital Signs Most recent to oldest [Reference Range]: 1 Temperature Axillary [35.2-36.7 DegC] 35 .7 DegC (09/08/22 7:22 AM) Temperature Oral [35.8-37.3 DegC] 36.5 D egC (09/11/22 7:18 AM) Peripheral Pulse Rate [60-100 bpm] 59 bp m *LOW* (09/11/22 7:18 AM) Respiratory Rate [14-20 br/min] 16 br/mi n (09/10/22 10:29 PM) Blood Pressure [90-140/60-90 mmHg] 149/7 9mmHg *HI* (09/11/22 7:18 AM) Height inches 65 in (09/08/22 6:58 AM) Weight Measured 72.8 KG (09/10/22 8:38 AM) Dosing Weight 70.6 KG (09/08/22 2:30 AM) Body Mass Index Measured 26.74 (09/10/22 8:39 AM) Social History Social History Type Response Smoking Status Current every day sm oker Sex Female Surgical Consultation * TIMI KUHN MD: PERFORM Event Display: Surgical Consultation Authored Date: [id number] Demographics Name:AUBREE COUCH Date of :1950 Chief Complaint pt reports she forgot to take her lexapro for 2 days, today was going somewhere and started having chills and twitching Reason for Consult right hydronephrosis, right nonobstructing nephrolithiasis, left possible partial renal malperfusion Physical Exam Vitals & Measurements T:??36.5?C (Oral)?? TMIN:??36.5?C (Oral)?? TMAX:??36.7?C (Oral)?? HR:??59(Peripheral)??RR:??16?? BP:??149/79?? SpO2:??94%?? PHYSICAL EXAMINATION: GENERAL: The patient is alert and oriented, well-developed, well-nourished, well-groomed?? 72year(s) old?? Female, appearing stated age and in no acute distress.?? EYES: Sclerae, conjunctivae and lids clear.?? HEENT: Head is normocephalic with normal hair distribution.?? No evidence of trauma. External ears and nose unremarkable.. SKIN: visible skin w/o lesions, not pale, no discoloration, normal?? turgor and temperature.?? No ulcerations or rashes noted. PSYCH: as can be seen during conversation judgment and insight, mood and affect are within normal limits.?? abdomen soft, no tenderness, norebound tenderness, no signs of acute disease, tongue normal, non-coated tongue. Costovertebal angle bilaterally?? nontender to palpation.?? Diagnostic Results ?? I reviewed lab results I reviewed previous medical reports I reviewed CT report and CT images. Assessment/Plan 1.??Encephalopathy 2.??Fever 3.??Choreiform movements 4.??Acute kidney injury ??The right hydronephrosis might be a chronic dilatation of unknown origin, possibly status post stone passed immediately before the CT scan, but she never had any back or flank pain, so any contribution of the right hydronephrosis to her recent infectious episode is very unlikely, however no further measures necessary immediately. The process on the left kidney might be a renal branch artery malperfusion, possibly but without any matching symptoms very unlikely due to a renal branch artery embolus. Probably that also is an oldsituation, also here no further measures are necessary immediately. I recommend to perform a NM scan with Lasix to prove 1. possible right ureteral obstruction what would warrant further diagnostic tests (retrograde ureterogram / ureteroscopy), and 2. left upper polemalperfusion. In order to let the right ureteral urothelium unswell, that way??resolving possibly the hydronephrosis, I recommend to proceed with NM scan not earlier than in 3 days. ?? In any case no procedure needs to be done inpatient. Therefore she may be discharged, recommend to see urologist at her place.?? 5.??Restless legs syndrome 6.??Depression CC/PCP/Referring Provider NOT IN DICTIONARY ?? Problem List/Past Medical History Ongoing Depression Restless legs syndrome Historical No qualifying data Medications Inpatient No active inpatient medications Home Albuterol (Eqv-ProAir HFA) 90 mcg/inh inhalation aerosol, 2 PUFF, Inhale, [id number], PRN ascorbic acid 500 mg oral tablet, 500 MG= 1 TAB, PO, QDay,?Still taking, OTC cholecalciferol 2000 intl units oral tablet, 50 MCG= 1 TAB, PO, QDay,?Still taking, OTC escitalopram 10 mg oral tablet, 10 MG= 1 TAB, PO, QDay,?Still taking, not as prescribed: misseddose the last few days ferrous sulfate 325 mg (65 mg elemental iron) oral tablet, 325 MG= 1 TAB, PO, QDay,?Still taking, OTC Lyrica 50 mg oral capsule, 50 MG= 1 CAP, PO, TID pramipexole 3 mg oral tablet, extended release, 3 MG= 1 TAB, PO, QDay,?Still taking, not as prescribed: prescribed 1 tab BID Trelegy Ellipta inhalation powder, 1 PUFF, Inhale, QDay Allergies NKA Social History Smoking Status Current every day smoker Electronically Signed by: TIMI KUHN MD 09/11/2022 05:16 PM * TIMI KUHN MD: PERFORM Event Display: Surgical Consultation Authored Date: [id number] The right hydronephrosis might be a chronic dilatation of unknown origin, possibly status post stone passed immediately before the CT scan, but she never had any back or flank pain, so any contribution of the right hydronephrosis to her recent infectious episode is very unlikely, however no furthermeasures necessary immediately. The process on the left kidney might be a renal branch artery malperfusion, possibly but without any matching symptoms very unlikely duec to a renal branch artery embolus. Probably that also is an old situation, also here no further measures are necessary immediately. I recommend to perform a NM scan with lasix to prove 1. possible right ureteral obstruction what would warrant further diagnostic tests (retrograde ureterogram / ureteroscopy), and 2. left upper polemalperfusion. In any case no procedure needs to be done inpatient. Therefore she may be discharged, recommend to see urologist at her place. Electronically Signed by: TIMI KUHN MD 09/11/2022 11:05 AM * TIMI KUHN MD: PERFORM Event Display: Surgical Consultation Authored Date: [id number] The right lower calyceal nonobstructing stone may be kept under surveillance, no measures necessaryimmediately. Electronically Signed by: TIMI KUHN MD 09/11/2022 11:06 AM * SUKI JAMES MD: MODIFY Event Display: Infectious Disease Consultation Authored Date: [id number] PATIENT NAME: AUBREE COUCH DATE OF : 1950 DATE OF SERVICE: 09/08/2022 INFECTIOUS DISEASE CONSULTATION REFERRING PHYSICIAN: Jd Andre MD REASON FOR CONSULTATION: Febrile illness associated with choreiform movements versus myoclonic. HISTORY OF PRESENT ILLNESS: The patient is a 72-year-old female who is relatively healthy except for having restless leg syndrome and depression. She is on pramipexole and reportedly had been taking a supratherapeutic dose of it for her restless legs. She was en route to [facility] for a girl's trip, but arrived at a friend's house and was found to be confused and with uncontrollable choreiform movements. She was aware of the movements and they were bothersome to her. There are no reports of her having any flu-like illness or febrile illness coming into the trip that she had planned. According to her friend, she was not complaining of headache, neck ache, GI, pulmonary or symptoms. On admission, she was febrile to 38.5 and hemodynamically stable. Her white count was 15.7 with a CRP of 12.25. A 1-view chest x-ray was unremarkable. A head CT showed probable chronic microvascular changes, but no acute changes. She had a lumbar puncture, which required sedation, which was unremarkable with a glucose of 83, protein 22 and 10 WBCs, 54% of which were polys. Her urinalysis was unremarkable. Her 22 respiratory panel was unremarkable. Blood cultures were obtained, and the patient was started on ceftriaxone and acyclovir. Overnight, she was afebrile and she has had no further choreiform or myoclonic movements as she is sedated on Precedex. I am asked to help out with further management. REVIEW OF SYSTEMS: Unable to be obtained from the patient as she is currently sedated. PAST MEDICAL HISTORY: 1. Restless leg syndrome. 2. Depression. CURRENT MEDICATIONS: Include: 1. Ceftriaxone 2 g IV every 12. 2. Acyclovir 575 mg IV every 8 hours. 3. Acetaminophen. 4. Ferrous sulfate. 5. Pramipexole. 6. Albuterol 7. Fluticasone/vilanterol 8. Ipratropium. 9. Lorazepam. 10. Precedex. ALLERGIES: No known drug allergies. SOCIAL HISTORY: The patient is . She smokes at least 2 packs of cigarettes a day. [place] She drinks 1 Kahlua milk a day. FAMILY HISTORY: Reviewed and noncontributory. VACCINATION STATUS: She is COVID vaccinated. PHYSICAL EXAMINATION: GENERAL: Reveals a sedated, elderly female with friends at the bedside. VITAL SIGNS: Temperature is 36.3, pulse is 45, blood pressure is 119/75, respirations 21, O2 sat 98% on 4 L. HEENT: There is no scleral icterus. No conjunctival injection. Pupils are normal reactive. Sinuses nontender. Oropharynx: No lip lesions noted. I could not get a good look in her mouth for thrush. NECK: Completely supple. LUNGS: Clear to auscultation anteriorly. CARDIOVASCULAR: Bradycardic, without murmur noted. ABDOMEN: Scaphoid, quiet bowel sounds, soft. No grimace with palpation. EXTREMITIES: No cyanosis, clubbing, edema or endovascular stigmata. SKIN: No rash noted. LABORATORY DATA: Blood cultures x2 sets are no growth to date. CSF culture was negative. MRSA swab of the nares was negative. A 22 respiratory panel by PCR was negative. White count 15.7, hematocrit 38.2, platelets 246,000. CRP 12.25. BUN 24.9, creatinine 0.96, estimated GFR 57. Electrolytes and LFTs are normal. Lactic acid was 1.1. Urinalysis: Small blood, trace leukocytes, 3-5 rbc's. CSF glucose 83. Protein CSF 22. CSF RBC count 300. CSF WBC count 10 with 54% segs, 33% lymphs, 13% monocytes. RADIOGRAPHIC DATA: Please see above for radiographic data. IMPRESSION: This 72-year-old fairly healthy female with exception of tobacco abuse and restless leg syndrome presents with a febrile illness associated with abnormal choreiform versus myoclonic movements. I suspect this may be drug related and may be related to the pramipexole as she was taking supratherapeutic doses. There is no evidence of meningitis or encephalitis by CSF analysis and she has a completelysupple neck. I will discontinue ceftriaxone and acyclovir today. Of course, acute rheumatic fever can cause choreiform movements and will check group A strep antibodies to include ASO titer and DNaseB titer. I will also order an echocardiogram in this regard to see if there is any valvular abnormal ities to support this. Apart from that, I did not see any obvious evidence of bacterial infection. She does have elevated inflammatory parameters, but these are of unclear significance. I will check a procalcitonin and a sed rate. For now, favor cautious observation off antimicrobials unless new data arises to suggest acute bacterial infection. Thank you very much for this consult. Signing Physician: Suki James M.D. ID/pm Doc: [id number] Job: [id number] Electronically Signed by: SUKI JAMES MD 09/09/2022 09:03 AM * CATHIE RANDHAWA MD: PERFORM, MODIFY Event Display: Neurology Consultation Authored Date: Demographics Name:AUBREE COUCH Date of :1950 Primary Care M.D: NOT IN DICTIONARY Chief Complaint pt reports she forgot to take her lexapro for 2 days, today was going somewhere and started having chills and twitching Reason for Consultation abnormal movements History of Present Illness 72 year old woman with RLS who developed abnormal movements around 09/06/22 and presented for evaluation to the ER which included normal NCHCT and normal CSF studies with CRP 12.? She was on her wayto [place] for a girls trip but was acting confused at her friends house when she arrived to pick her up.?? She was described as feeling cold and getting in an out of the bath trying to get warm but also came into the living room naked and acting strangely from her baseline.?? The movements were described as fast jerking movements of the arms, legs, and face which sounds like myoclonus but also some writhing movements of the spine which is not myoclonus but which could be behavioral.?? She was started on precedex overnight to suppress the movements which are now gone.?? Her sister states that her abdomen is normally not this enlarged Review of Systems Pertinent positive as above. All other systems reviewed and negative Physical Exam Vitals & Measurements T:??35.7?C (Axillary)?? TMIN:??35.7?C (Axillary)?? TMAX:??38.5?C (Oral)?? HR:??50(Peripheral)?? HR:??50(Apical)?? RR:??20?? BP:??122/92?? SpO2:??97%?? HT:??165??cm?? WT:??70.6??KG?? Body Mass Index Measured: 25.93 (09/08/22) Gen: NAD CV: no bruits, pulses present, skin normal temperature, no edema,heart rate regular MS: drowsy, fluent speech with dry mouth related thick speech but normal phonation, able to follow commands CN: Vf full, EOMI, PERRLA, face/tongue/palate/sensation/shoulder shrug symmetric, facial sensation symmetric, hearing intact bilaterally, Motor: symmetric movements Sensory: intact to soft touch and temp but loss of vibration in the feet with 5 sec at the ankle DTR: normal tone, no pathological reflexes, diffusely areflexic coordination/cerebellar: no dysmetria BG: no abnormal movements Gait:??deferred ?? Assessment/Plan 1.??Encephalopathy 2.??Fever 3.??Choreiform movements currently absent. sounds like myoclonus.?? suspect likely infection or other systemic problem with enlarged abdomen and CRP 12 with normal CSF.?? will send neuropathy work up which is unlikely to be related to her current condition. If is possible also that her pramipexole dose was too high and shehad choreiform movements from that as her last dose was prior to admission and the movements have resolved.?? normal dosing for RLS pramipexole is??0.5mg qhs and for parkinsons 4.5mg ER daily.?? would restart her on a lower dose 1.5mg daily 4.??Acute kidney injury 5.??Restless legs syndrome 6.??Depression Problem List/Past Medical History Ongoing Depression Restless legs syndrome Historical No qualifying data Medications Inpatient Acetaminophen, 650 MG= 2 TAB, PO, [id number], PRN acyclovir Aerochamber (Optichamber), 1 DEV= 1 EA, Inhale, As Directed, PRN Ativan, 0.5 MG= 0.25 ML, IV Push, [id number], PRN cefTRIAXone, 2 GM= 100 ML, IV Piggyback, [id number] Dexmedetomidine 400 MCG [0.4 mcg/kg/hr] + Premix NS 100 ML ferrous sulfate, 325 MG= 1 TAB, PO, QDay fluticasone-vilanterol, 1 INH, Inhale, QDay ipratropium, 0.5 MG= 2.5 ML, Via Neb, Four times a day - resp lidocaine 1% injectable, 2 MG= 0.2 ML, Intradermal, Four times a day, PRN LMX 4, 1 APPL, Topically, Four times a day, PRN pneumococcal 20-valent conjugate vaccine, 0.5 ML, INTRAMUSCULAR, As Directed pramipexole, 3 MG= 2 TAB, PO, QDay Sodium Chloride 0.9% 1,000 ML, 1000 ML, IV(Cont.) sodium chloride bacteriostatic 0.9% injectable, 0.2 ML, Intradermal, Four times a day, PRN Ventolin HFA 90 mcg/inh inhalation aerosol, 180 MCG= 2 PUFF, Inhale, [id number], PRN Home Albuterol (Eqv-ProAir HFA) 90 mcg/inh inhalation aerosol, 2 PUFF, Inhale, [id number], PRN ascorbic acid 500 mg oral tablet, 500 MG= 1 TAB, PO, QDay,?Still taking, OTC celecoxib 200 mg oral capsule, 200 MG= 1 CAP, PO, QDay, PRN,?Not taking cholecalciferol 2000 intl units oral tablet, 50 MCG= 1 TAB, PO, QDay,?Still taking, OTC escitalopram 10 mg oral tablet, 10 MG= 1 TAB, PO, QDay,?Still taking, not as prescribed: misseddose the last few days ferrous sulfate 325 mg (65 mg elemental iron) oral tablet, 325 MG= 1 TAB, PO, QDay,?Still taking, OTC ibuprofen 200 mg oral tablet, 800 MG= 4 TAB, PO, QDay,?Still taking, OTC pramipexole 3 mg oral tablet, extended release, 3 MG= 1 TAB, PO, QDay,?Still taking, not as prescribed: prescribed 1 tab BID Trelegy Ellipta inhalation powder, 1 PUFF, Inhale, QDay Allergies NKA Social History Smoking Status Current every day smoker Lab Results Oncology Labs Glucose-Blood:??165 mg/dL??High Blood Urea Nitrogen:??24.9 mg/dL??High Creatinine-Blood:??0.96 mg/dL??High Sodium Blood:??135 mmol/L??Low Potassium-Blood: 3.8 mmol/L Chloride Blood: 99 mmol/L Total CO2 Blood: 25 mmol/L Anion Gap: 11 mEq/L Calcium Blood: 9.1 mg/dL AST: 22 U/L Alkaline Phosphatase: 90 U/L Protein Total-Blood: 6.9 g/dl Albumin-Blood: 4.2 g/dl Bilirubin Total: 0.17 mg/dL ALT: 20 U/L Lactic Acid: 1.1 mmol/L C-Reactive Protein:??12.25 mg/dL??High pH-AB.39 pCO2: 38 mmHg pO2:??62 mmHg??Low HCO3: 22 O2 Sat: 92 % Glucose-CSF:??83 mg/dL??High Protein Total-CSF: 22 mg/dL Type of Fluid: Cerebral Spinal Fluid Color-Cell Count: See comments Polys:??54 %??High Lymphocytes:??33 %??Low Monocytes:??13 %??Low WBC:??15.7 x10 3 /uL??High RBC: 4.25 x10 6 /uL HGB: 12.9 g/dl HCT: 38.2 % MCV: 89.9 fL PLT: 246 x10 3 /uL Neut:??75.8 %??High ANC:??11.9 x10 3 /uL??High Lymph:??15.3 %??Low Mobile: 8.2 % Eos: 0.1 % Baso: 0.2 % nRBC: 0 % Specific [place]:??1.006??Low pH-Urine: 6.5 Glucose: NEGATIVE Bilirubin: NEGATIVE Ketones: NEGATIVE Blood: Small Abnormal Protein: NEGATIVE Urobilinogen: 0.2 mg/dL Nitrite: NEGATIVE Leukocytes: Trace Abnormal WBC - Urine: 3-5 RBC - ??Urine: 3-5 Abnormal Bacteria: None Seen Hyaline Casts: None Seen Electronically Signed by: CATHIE RANDHAWA MD 09/08/2022 11:54 AM * DEREK STYLES MD, I: PERFORM, MODIFY, MODIFY Event Display: 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 She is sedated and hx is obtained from the chart. ?? She self presented to ED yesterday with complaints of abnormal arm/leg movements that are describedas choreiform. She had self discontinued lexapro abd mirapex??for several, at least >48 hours, ??prior to symptom onset. No altered mentation is documented on initial presentation. 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 In the ED, she was given Haldol (wo significant effect), ativan (with partial effect) and finally precedex in attempt to control symptoms. ?? She had an LP performed in ED for concerns of meningitis/encephalitis.?She was empirically started on an abx regimen to cover meningitis and HSV encephalitis. No steroids. Hemodynamics have been stable. Oxygenation have been stable. ?? Since being on precedex, abnormal arm/leg movements have subsided, but she is extremely sedated this AM despite her precedex being weaned to half it's previous dose. Unable to answer any questionsfor me and essentially did not rouse with physical exam even. Review of Systems Unable to obtain secondary encephalopathy/depressed mental status. Physical Exam Vitals & Measurements T:??36.3?C (Oral)?? TMIN:??35.7?C (Axillary)?? TMAX:??38.5?C (Oral)?? HR:??62(Peripheral)?? HR:??62(Apical)?? RR:??22?? BP:??117/63?? SpO2:??100%?? HT:??165??cm?? WT:??70.6??KG?? Body Mass Index Measured: 25.93 (09/08/22) ?? This visit (24 hour periods starting at 00:00 EDT)? 09/08/22 *?? 09/07/22?? 09/06/22?? Total Summary?Intake ML?? 1,604.1?? 1.25?? --?Output ML?? 1,152?? --?? --?Fluid Balance ?? 452.1?? 1.25?? --?? Intake (8)?Dextrose 5% in Water, acyclovir ML?? 111.6?? --?? --?Oral Intake ML?? --?? --?? --?Sodium Chloride 0.9% 1,000 ML ML?? 765?? --?? --?ceftriaxone ML?? 100?? --?? --?dexmedetomidine 400 MCG [0.4 mcg/kg/hr] + Premix NS 100 ML ML?? 227?? --?? --?ketorolac ML?? --?? 1?? --?lorazepam ML?? 0.5?? 0.25?? --?vancomycin ML?? 400?? --?? --?Total?? 1,604.1?? 1.25?? --?? Output (3)?Urethral Latex-free indwelling/continuous 16 Fr ML?? 400?? --?? --?Urine Catheter ML?? 750?? --?? --?Urine Voided ML?? 2?? --?? --?Total?? 1,152?? --?? --?? Counts (4)?Oral Intake ML?? --?? --?? --?Urinary Catheter Output: ML?? 400?? --?? --?Urine Catheter ML?? 750?? --?? --?Urine Voided ML?? 2?? --?? --? * This column has not completed the indicated time period.?? WDWN elderly female. Nad, no abnormal arm/leg movements. RASS -3/-4 ?? heent: nc/at per anicteric oropharpynx moist no jvd. neck is supple, no jvd cor s1 s2 lungs- deni bs no wheezing, rhonchi crackles, overall decreased. abd soft nt nd +bs Ext: warm +pulses no edema. no clonus. neck is supple.??grimaces to sternal rub otherwise flaccid. Assessment 72 who presented to the ED yesterday after??having??onset of??abnormal arm and leg movements. ??This was in the setting of her having stopped taking Mirapex and Lexapro for several days. ??She also had subjective chills and fever. ??Highest temperature documented here is 38.5.?? An LP performed in the ED is relatively benign looking.?? He has received multiple sedative medicine including Haldol, Ativan and ultimately Precedex which resulted in an ICU admission.?? With the Precedex her symptoms are controlled but she was on relatively high overdoses overnight and is now extremely sedated. ??She is no longer having??the abnormal movements.?? Her hemodynamics have overall been stable throughout all of this. ??Her oxygenation has been stable as well. ??No seizure activity reported. ?? Current ICU issues #Arm/leg jerking, uncertain etiology #Currently, acute encephalopathy secondary IV Precedex #Presentation not convincing for meningitis/encephalitis #Low-grade fevers in ED, ?secondary muscle activity #COPD wo evidence of exacerbation #ho restless leg syndrome and depression ?? Plan ?? #Respiratory???she appears compensated.?? We will use O2 as needed.?? If she does not wake up quickly she can start using nebulizers instead of the metered- dose inhaler because she is currently too sedated to use that. #ID???her LP is??benign appearing.?History is atypical for encephalitis or meningitis.?? Her exam does not support those as well but honestly it is difficult to do an accurate evaluation with how sedated she is. ??For now??we will discontinue vancomycin, continue??ceftriaxone and acyclovir untilshe can be assessed of Precedex sedation. She is due to be seen by ID as well. #Cardiovascular-Stable hemodynamics. No s/s of chf. cont to monitor. #Heme-no s/s of bleeding. Daily cbc. #Metabolic-renal function appears to be intact. ??Follow electrolytes and correct as needed.?? Sugars overall appear controlled. #Alimentary???currently she is too sedated to eat. ??Will reevaluate??once hopefully mentation improves off of Precedex. #Neuro-currently the patient is over sedated with Precedex.?? We will continue to wean it and avoidother sedatives for now.?Her neurological exam is is does not support??meningitis. ??She will need to be reevaluated once she is more alert. ??The presenting symptoms though again do not appear debbie consistent with meningitis and would be atypical for??encephalitis. ??Mentation is documented as clear and normal??when she initially presented to the emergency room prior to sedatives being used.?? That would be unusual in this circumstance.?? There may be some relation to her having stopped??the??Mirapex??and??Lexapro. ??She is pending neurologic evaluation??and will follow-up on their opinion. ??No clear seizure activity has been described and without??neurology's involvement I would not use empiric antiepileptic treatment at this point. ? Patient's clinical condition plan for care was discussed with ICU care team. This is a level 5 consultation. Problem List/Past Medical History Ongoing Depression Restless legs syndrome Historical No qualifying data Medications Inpatient Acetaminophen, 650 MG= 2 TAB, PO, [id number], PRN Aerochamber (Optichamber), 1 DEV= 1 EA, Inhale, As Directed, PRN Ativan, 0.5 MG= 0.25 ML, IV Push, [id number], PRN Dexmedetomidine 400 MCG [0.4 mcg/kg/hr] + Premix NS 100 ML ferrous sulfate, 325 MG= 1 TAB, PO, QDay fluticasone-vilanterol, 1 INH, Inhale, QDay ipratropium, 0.5 MG= 2.5 ML, Via Neb, Four times a day - resp, PRN lidocaine 1% injectable, 2 MG= 0.2 ML, Intradermal, Four times a day, PRN LMX 4, 1 APPL, Topically, Four times a day, PRN pneumococcal 20-valent conjugate vaccine, 0.5 ML, INTRAMUSCULAR, As Directed pramipexole, 3 MG= 2 TAB, PO, QDay Sodium Chloride 0.9% 1,000 ML, 1000 ML, IV(Cont.) sodium chloride bacteriostatic 0.9% injectable, 0.2 ML, Intradermal, Four times a day, PRN Ventolin HFA 90 mcg/inh inhalation aerosol, 180 MCG= 2 PUFF, Inhale, [id number], PRN Home Albuterol (Eqv-ProAir HFA) 90 mcg/inh inhalation aerosol, 2 PUFF, Inhale, [id number], PRN ascorbic acid 500 mg oral tablet, 500 MG= 1 TAB, PO, QDay,?Still taking, OTC celecoxib 200 mg oral capsule, 200 MG= 1 CAP, PO, QDay, PRN,?Not taking cholecalciferol 2000 intl units oral tablet, 50 MCG= 1 TAB, PO, QDay,?Still taking, OTC escitalopram 10 mg oral tablet, 10 MG= 1 TAB, PO, QDay,?Still taking, not as prescribed: misseddose the last few days ferrous sulfate 325 mg (65 mg elemental iron) oral tablet, 325 MG= 1 TAB, PO, QDay,?Still taking, OTC ibuprofen 200 mg oral tablet, 800 MG= 4 TAB, PO, QDay,?Still taking, OTC pramipexole 3 mg oral tablet, extended release, 3 MG= 1 TAB, PO, QDay,?Still taking, not as prescribed: prescribed 1 tab BID Trelegy Ellipta inhalation powder, 1 PUFF, Inhale, QDay Allergies NKA Social History Smoking Status Current every day smoker Family History nc Lab Results Glucose-Blood:??165 mg/dL??High Hemoglobin A1C:??6.5 %??High Blood Urea Nitrogen:??24.9 mg/dL??High Creatinine-Blood:??0.96 mg/dL??High eGFR Result : >60.00 eGFR Result Non-:??57.46 mL/min/1.73m?Low Sodium Blood:??135 mmol/L??Low Potassium-Blood: 3.8 mmol/L Chloride Blood: 99 mmol/L Total CO2 Blood: 25 mmol/L Anion Gap: 11 mEq/L Calcium Blood: 9.1 mg/dL AST: 22 U/L Alkaline Phosphatase: 90 U/L Protein Total-Blood: 6.9 g/dl Albumin-Blood: 4.2 g/dl Bilirubin Total: 0.17 mg/dL ALT: 20 U/L Lactic Acid: 1.1 mmol/L Procalcitonin:??0.27 ng/mL??High C-Reactive Protein:??12.25 mg/dL??High Vitamin B12: 1231 pg/mL pH-AB.39 pCO2: 38 mmHg pO2:??62 mmHg??Low HCO3: 22 BE: -[address]:??17??Low TCO2: 24 O2 Sat: 92 % Ventilation: 2L NC Pat Temp: 37 Patient Activity Level: Resting Glucose-CSF:??83 mg/dL??High Protein Total-CSF: 22 mg/dL Type of Fluid: Cerebral Spinal Fluid Tube #: 3 Vol: 4.1 ML Color-Cell Count: See comments Clarity: See comments RBC #: <0.003 WBC/Other #: <0.010 Polys:??54 %??High Lymphocytes:??33 %??Low Monocytes:??13 %??Low Xanthochromia: Not Present WBC:??15.7 x10 3 /uL??High RBC: 4.25 x10 6 /uL HGB: 12.9 g/dl HCT: 38.2 % MCV: 89.9 fL MCH: 30.4 pg MCHC: 33.8 g/dl RDW- SD: 47 fL MPV: 9 fL PLT: 246 x10 3 /uL Neut:??75.8 %??High ANC:??11.9 x10 3 /uL??High Lymph:??15.3 %??Low A.4 x10 3 /uL Mobile: 8.2 % Eos: 0.1 % Baso: 0.2 % nRBC: 0 % Immature Granulocytes: 0.4 % Immature Grans Abs: 0.1 x10 3 /uL Specific [place]:??1.006??Low pH-Urine: 6.5 Glucose: NEGATIVE Bilirubin: NEGATIVE Ketones: NEGATIVE Blood: Small Abnormal Protein: NEGATIVE Urobilinogen: 0.2 mg/dL Nitrite: NEGATIVE Leukocytes: Trace Abnormal Epithelial Cells: Occasional WBC - Urine: 3-5 RBC - ??Urine: 3-5 Abnormal Bacteria: None Seen Hyaline Casts: None Seen Influenza A by PCR: NEGATIVE Influenza B by PCR: NEGATIVE MRSA Nares by PCR: MRSA NOT DETECT GNXPRT CoVID 19 GFH: NEGATIVE Adenovirus PCR: NOT DETECTED Coronavirus HKU1: NOT DETECTED Coronavirus NL63: NOT DETECTED Coronavirus 229E: NOT DETECTED Coronavirus OC43: NOT DETECTED Human Metapneumovirus: NOT DETECTED Human Rhinovirus/Enterovirus: NOT DETECTED Influenza A: NOT DETECTED Influenza A/H1: NOT DETECTED Influenza A/H1-2009: NOT DETECTED Influenza A/H3: NOT DETECTED Influenza B: NOT DETECTED Parainfluenza 1: NOT DETECTED Parainfluenza 2: NOT DETECTED Parainfluenza 3: NOT DETECTED Parainfluenza 4: NOT DETECTED Respiratory Syncytial Virus: NOT DETECTED Bordetella parapertussis: NOT DETECTED Bordetella pertussis: NOT DETECTED Chlamydophila pneumoniae: NOT DETECTED SARS-CoV-2: NOT DETECTED Mycoplasma pneumoniae: NOT DETECTED RSV by PCR: NEGATIVE Strep A PCR: Not Detected Diagnostics CT Head ?? 09/08/22 06:17:37 IMPRESSION: Probable chronic microvascular changes of the hemispheric white matter. No acute intracranial pathology identified on CT examination. ?? Cranial MRI should be strongly considered as a more sensitive test to detect acute intracranial pathology such as ischemia or edema if medically appropriate. ?? [facility] Code: NH1 - Concur with preliminary report issue by [facility] . ?? This CT exam was performed using one or more of the following dose reduction techniques: Automated exposure control, adjustment of the mA and/or kV according to patient size, and/or use of iterative reconstruction technique. This report was partially generated using voice recognition software, which may result in incorrectwords, misspellings, and punctuation errors that were not noted during review before finalization. ?? Signed By: CATHIE HERNANDEZ MD ?? [facility] ?? 09/07/22 20:24:17 IMPRESSION: No acute cardiopulmonary process. ?? Signed By: LEXI RAMSAY DO ? Electronically Signed by: DEREK STYLES MD, I 09/08/2022 05:03 PM Discharge summary * THAI KEYES, JD Don: PERFORM Event Display: Discharge Summary Authored Date: [id number] Demographics Name:AUBREE COUCH Date of :1950 Dates of Hospitalization Admitted:09/08/22 01:29:41 Discharged: 09/11/2022 Chief Complaint pt reports she forgot to take her lexapro for 2 days, today was going somewhere and started having chills and twitching Condition on Admission: Serious: Vital signs may be unstable and not within acceptable limits. Patient is acutely ill. Clinical indicators are questionable. Principal Discharge Diagnosis Fever unknown origin Choreiform movements of unclear etiology Secondary Discharge Diagnosis Restless legs syndrome Depression COPD Presentation Patient is a 72-year-old female??with a history of restless leg syndrome??and COPD who presents??with??chills, fever and involuntary body movements.?? Patient said she developed fever??with chills 2 days ago.?? This morning??she developed involuntary choreiform movements of all her limbs.?? She denied??purulent cough, chest pain, shortness of breath,??abdominal pain, nausea, vomiting or diarrhea.? ? She came to [facility] emergency room where??she was febrile with a temperature of 38.5??C.?? Her physical exam was unremarkable except for??observed choreiform movements of all??4 limbs??and confusion.?? Her glucose was 165. ??BUN was 24.9. ??White blood cell count??15.7. ??COVID-19 testing was negative.?? Chest x-ray was clear.?? CT scan of the head had no acute findings. Hospital Course Patient was admitted to the ICU.?? She was initially started on Precedex??for??involuntary movements as well as IV acyclovir,??ceftriaxone and vancomycin.?? She had a lumbar puncture which was not consistent with??meningitis.?? She was seen by infectious disease and neurology.?? Antibiotics were discontinued.?? She underwent an echocardiogram on 09/08/2022 which was normal.?? Patient was started onLyrica for presumed neuropathy.?? A CT scan of the chest, abdomen and pelvis was performed which showed mottled enhancement??of the left mid to upper kidney consistent with edema or??partial infarct.?? Patient had no further choreiform movements and was??transferred out of the ICU.?? She remained afebrile. ??Cultures were negative.?? Urology was consulted for abnormal appearing kidney on CT scanning.?? On 09/11/2022 she remained afebrile for over 48 hours.?? She was asymptomatic.?? She will be dis charged home after seen by urology. Concluding Assessment Vitals & Measurements T:??36.5?C (Oral)?? TMIN:??36.5?C (Oral)?? TMAX:??36.7?C (Oral)?? HR:??59(Peripheral)??RR:??16?? BP:??149/79?? SpO2:??94%?? General: well appearing, no acute distress Respiratory: normal chest wall expansion, CTA B, no r/r/w, no rubs Cardiovascular: RRR, no m/r/g, Normal S1 and S2 Abdomen: Soft, non-tender, non-distended, normal bowel sounds in all quadrants, no hepatosplenomegaly, no tympany Integumentary: warm, dry, and pink, with no rash, purpura, or petechia Neurological: 2+ patellar reflexes, Cranial Nerves II-XII grossly intact, no tics, normal sensationto pressure and light touch Consultants Infectious disease Neurology Urology Procedures Lumbar puncture Condition Upon Discharge: Good: Vital signs are stable and within??acceptable limits. Patient is conscious and comfortable. Clinical indicators are excellent. Primary Care Provider NOT IN DICTIONARY Discharge Medications What How Much When Instructions New pregabalin (Lyrica 50 mg oral capsule) 1 cap Oral THREE TIMES A DAY Pickup at [facility] Unchanged albuterol (Albuterol (Eqv-ProAir HFA) 90 mcg/ inh inhalation aerosol) 2 puff(s) Inhalation Every 4 Hours as needed for as needed for wheezing Unchanged ascorbic acid (ascorbic acid 500 mg oral tablet) 1 Tablet Oral Once Daily Unchanged cholecalciferol (cholecalciferol 2000 intl units oral tablet) 1 Tablet Oral Once Daily Unchanged escitalopram (escitalopram 10 mg oral tablet) 1 Tablet Oral Once Daily Unchanged ferrous sulfate (ferrous sulfate 325 mg (65 mg elemental iron) oral tablet) 1 Tablet Oral Once Daily Unchanged fluticasone/ umeclidinium/ vilanterol (Trelegy Ellipta inhalation powder) 1 puff(s) Inhalation Once Daily Unchanged pramipexole (pramipexole 3 mg oral tablet, extended release) 1 Tablet Oral Once Daily Pharmacy Information [facility]: [address] [place] [address] [address] [place], [place] [id number] ?? What How Much When Comments Stop Taking celecoxib (celecoxib 200 mg oral capsule) 1 cap Oral Once Daily as needed for Moderate pain (4-6) Stop Taking IBUPROFEN (ibuprofen 200 mg oral tablet) 4 Tablet Oral Once Daily Discharge Instructions Patient is being discharged home??on??a regular diet with activity as tolerated. Instructions for continuing care to all relevant caregivers She will follow-up with her primary care provider in 1 to 2 weeks. Time Spent _ minutes were spent in discharge day management, coordination of care and counseling. 34 CC: NOT IN DICTIONARY Electronically Signed by: JD ANDRE MD 09/11/2022 09:18 AM Hospitalist Progress Note * JD ANDRE MD: PERFORM Event Display: Hospitalist Progress Note Authored Date: [id number] Demographics Name:AUBREE COUCH Date of :1950 Chief Complaint pt reports she forgot to take her lexapro for 2 days, today was going somewhere and started having chills and twitching Assessment/Plan Fever of unknown origin-resolved Involuntary choreiform movements??of unclear etiology COPD Restless leg syndrome Depression Discussion Discharge home. Subjective Patient continues to feel well. She has no complaints. She has been afebrile for 48 hours. She wants to go home. Objective Vitals & Measurements T:??36.5?C (Oral)?? TMIN:??36.5?C (Oral)?? TMAX:??36.7?C (Oral)?? HR:??59(Peripheral)??RR:??16?? BP:??149/79?? SpO2:??94%?? Body Mass Index Measured: 26.74 (09/10/22) Physical Exam General: no acute distress Respiratory: normal chest wall expansion, CTA B, no r/r/w, no rubs Cardiovascular: RRR, no m/r/g, Normal S1 and S2 Abdomen: Soft, non-tender, non-distended, normal bowel sounds in all quadrants, no hepatosplenomegaly, no tympany Integumentary: warm, dry, and pink, with no rash, purpura, or petechia Neurological: 2+ patellar reflexes, Cranial Nerves II-XII grossly intact, no tics, normal sensationto pressure and light touch Lab Results no data available Medications Inpatient Acetaminophen, 650 MG= 2 TAB, PO, [id number], PRN Aerochamber (Optichamber), 1 DEV= 1 EA, Inhale, As Directed, PRN Aerochamber (Optichamber), 1 DEV= 1 EA, Inhale, As Directed Ativan, 0.5 MG= 0.25 ML, IV Push, [id number], PRN ferrous sulfate, 325 MG= 1 TAB, PO, QDay fluticasone-vilanterol, 1 INH, Inhale, QDay ipratropium, 0.5 MG= 2.5 ML, Via Neb, Four times a day - resp, PRN lidocaine 1% injectable, 2 MG= 0.2 ML, Intradermal, Four times a day, PRN LMX 4, 1 APPL, Topically, Four times a day, PRN Lyrica, 50 MG= 1 CAP, PO, TID nicotine 21 mg/24 hr transdermal film, extended release, 21 MG= 1 PATCH, Transdermal, * QDay omeprazole delayed release, 40 MG= 2 CAP, PO, QDay PATCH REMOVAL, NICOTINE, Transdermal, Bedtime pneumococcal 20-valent conjugate vaccine, 0.5 ML, INTRAMUSCULAR, As Directed pramipexole, 3 MG= 2 TAB, PO, QDay sodium chloride bacteriostatic 0.9% injectable, 0.2 ML, Intradermal, Four times a day, PRN Ventolin HFA 90 mcg/inh inhalation aerosol, 180 MCG= 2 PUFF, Inhale, [id number], PRN Primary Care Provider NOT IN DICTIONARY Electronically Signed by: JD ANDRE MD 09/11/2022 09:03 AM * JD ANDRE MD: PERFORM Event Display: Hospitalist Progress Note Authored Date: [id number] Demographics Name:AUBREE COUCH Date of :1950 Chief Complaint pt reports she forgot to take her lexapro for 2 days, today was going somewhere and started having chills and twitching Assessment/Plan Fever of unknown origin Involuntary choreiform movements??of unclear etiology COPD Restless leg syndrome Depression Discussion Continue to observe off antibiotics. If patient remains afebrile for another 24 hours will discharge home tomorrow. Subjective Patient is lying flat in bed. She is fully awake, alert and lucid. She has no complaints. CT scan of the chest, abdomen and pelvis results noted. ID follow-up appreciated. CSF growing??gram-positive cocci in clusters suspect contaminant. Objective Vitals & Measurements T:??36.9?C (Oral)?? TMIN:??36.6?C (Oral)?? TMAX:??36.9?C (Oral)?? HR:??71(Peripheral)??RR:??16?? BP:??126/76?? SpO2:??95%?? WT:??72.8??KG?? Body Mass Index Measured: 26.74 (09/10/22) Physical Exam General:?? no acute distress Respiratory: normal chest wall expansion, CTA B, no r/r/w, no rubs Cardiovascular: RRR, no m/r/g, Normal S1 and S2 Abdomen: Soft, non-tender, non-distended, normal bowel sounds in all quadrants, no hepatosplenomegaly, no tympany Integumentary: warm, dry, and pink, with no rash, purpura, or petechia Neurological: 2+ patellar reflexes, Cranial Nerves II-XII grossly intact, no tics, normal sensationto pressure and light touch Lab Results Glucose-Blood:??132 mg/dL??High Blood Urea Nitrogen: 13.7 mg/dL Creatinine-Blood: 0.78 mg/dL eGFR Result : >60.00 eGFR Result Non-: >60.00 Sodium Blood: 143 mmol/L Potassium-Blood: 3.7 mmol/L Chloride Blood: 107 mmol/L Total CO2 Blood: 26 mmol/L Anion Gap: 10 mEq/L Calcium Blood: 8.7 mg/dL AST: 24 U/L Alkaline Phosphatase: 88 U/L Protein Total-Blood:??5.8 g/dl??Low Albumin-Blood: 3.5 g/dl Bilirubin Total: <0.15 ALT: 25 U/L C-Reactive Protein:??12.07 mg/dL??High WBC: 10.2 x10 3 /uL RBC: 3.99 x10 6 /uL HGB:??11.8 g/dl??Low HCT: 36.3 % MCV: 91 fL MCH: 29.6 pg MCHC: 32.5 g/dl RDW- SD: 47.7 fL MPV: 9.4 fL PLT: 266 x10 3 /uL Medications Inpatient Acetaminophen, 650 MG= 2 TAB, PO, [id number], PRN Aerochamber (Optichamber), 1 DEV= 1 EA, Inhale, As Directed, PRN Ativan, 0.5 MG= 0.25 ML, IV Push, [id number], PRN ferrous sulfate, 325 MG= 1 TAB, PO, QDay fluticasone-vilanterol, 1 INH, Inhale, QDay ipratropium, 0.5 MG= 2.5 ML, Via Neb, Four times a day - resp, PRN lidocaine 1% injectable, 2 MG= 0.2 ML, Intradermal, Four times a day, PRN LMX 4, 1 APPL, Topically, Four times a day, PRN Lyrica, 50 MG= 1 CAP, PO, TID nicotine 21 mg/24 hr transdermal film, extended release, 21 MG= 1 PATCH, Transdermal, * QDay PATCH REMOVAL, NICOTINE, Transdermal, Bedtime pneumococcal 20-valent conjugate vaccine, 0.5 ML, INTRAMUSCULAR, As Directed pramipexole, 3 MG= 2 TAB, PO, QDay sodium chloride bacteriostatic 0.9% injectable, 0.2 ML, Intradermal, Four times a day, PRN Ventolin HFA 90 mcg/inh inhalation aerosol, 180 MCG= 2 PUFF, Inhale, [id number], PRN Primary Care Provider NOT IN DICTIONARY Electronically Signed by: THAI KEYES, JD Don 09/10/2022 10:49 AM * ERIKA KEYES, SUKI Bethea: PERFORM Event Display: Infectious Disease Progress Note Authored Date: Demographics Name:AUBREE COUCH Date of :1950 Subjective Pt afebrile for 24 hours. She denies any further abnormal movements. She denies urinary symptoms. She is much less lethargic. She is eating more. No diarrhea. She has chronic low back pain, no flank pain. Objective Vitals & Measurements T:??36.9?C (Oral)?? TMIN:??36.6?C (Oral)?? TMAX:??36.9?C (Oral)?? HR:??71(Peripheral)??RR:??16?? BP:??126/76?? SpO2:??95%?? WT:??72.8??KG?? Body Mass Index Measured: 26.74 (09/10/22) Physical Exam Oropharynx: no thrush noted Lungs : Clear to auscultation Cardiac exam: Regular rate rate and rhythm Abdominal exam: Positive bowel sounds soft nontender?? Back: NO CVAT Extremity exam:??No??edema Skin: No rash Lab Results Glucose-Blood:??132 mg/dL??High Blood Urea Nitrogen: 13.7 mg/dL Creatinine-Blood: 0.78 mg/dL eGFR Result : >60.00 eGFR Result Non-: >60.00 Sodium Blood: 143 mmol/L Potassium-Blood: 3.7 mmol/L Chloride Blood: 107 mmol/L Total CO2 Blood: 26 mmol/L Anion Gap: 10 mEq/L Calcium Blood: 8.7 mg/dL ?? AST: 24 U/L Alkaline Phosphatase: 88 U/L Protein Total-Blood:??5.8 g/dl??Low Albumin-Blood: 3.5 g/dl Bilirubin Total: <0.15 ALT: 25 U/L ?? C-Reactive Protein:??12.07 mg/dL??High WBC: 10.2 x10 3 /uL RBC: 3.99 x10 6 /uL HGB:??11.8 g/dl??Low HCT: 36.3 % MCV: 91 fL MCH: 29.6 pg MCHC: 32.5 g/dl RDW- SD: 47.7 fL MPV: 9.4 fL PLT: 266 x10 3 /uL ?? Specific [place]:??1.04??High pH-Urine: 6.0 Glucose: NEGATIVE Bilirubin: NEGATIVE Ketones: NEGATIVE Blood: Trace Abnormal Protein: NEGATIVE Urobilinogen: 0.2 mg/dL Nitrite: NEGATIVE Leukocytes: NEGATIVE Epithelial Cells: Occasional WBC - Urine: 3-5 RBC - ??Urine: 6-10 Abnormal Bacteria: None Seen Hyaline Casts: None Seen Diagnostic Results ??CT ABD/Pelvis w/ IV Contrast: Mottled enhancement pattern of the LEFT mid to upper kidney consistent with edema or partial infarct; differential includes hilar nephritis, embolization secondary to endocarditis. ?? Right mild hydroureteronephrosis without identifiable source; differential includes obstruction secondary to nonradiopaque calculus, mass lesion of distal bladder or ureter. Consider repeat study with hematuria protocol to allow for delayed opacification of the collecting systems. Probable nonobstructing RIGHT intrarenal calculus. ?? Impression: ? #Febrile illness associated with abnormal choreiform or myoclonic movements; no further movements and??afebrile 24 hours. ? Possible drug reaction. ? Significance of CT scan is unclear, pt denies symptoms. Renal infarct possible, but Echo negative. # Lethargy; likely still related to sedation she received in ICU. # Restless leg syndrome # Tobacco abuse ?? Recommendations: Consider Urology consult. Continue to hold on abx; if spikes again will start Levaquin for possible pyelonephritis.?? [1]??Progress Note; ERIKA KEYES, SUKI Bethea 09/09/2022 09:44 EDT * SYDNEE KEYES, CATHIE T: PERFORM Event Display: Neurology Progress Note Authored Date: Demographics Name:AUBREE COUCH Date of :1950 Subjective states she didn't forget to take or take too much of her pramipexole just the lexapro had mild hyperthermia without tachycardia back to baseline now describes her abnormal movements as myoclonus but RLS as classic RLS Review of Systems as above othewise negative Objective Vitals & Measurements T:??36.6?C (Oral)?? TMIN:??36.6?C (Oral)?? TMAX:??39.2?C (Oral)?? HR:??78(Peripheral)??RR:??20?? BP:??119/72?? SpO2:??95%?? WT:??70.9??KG?? Body Mass Index Measured: 26.04 (09/09/22) Physical Exam Gen: NAD CV: no bruits, pulses present, skin normal temperature, no edema,heart rate regular MS: aox3, recent and remote memory intact,??normal attention span and concentration, fund of knowledge normal,?speech is fluent, repetition intact, comprehension intact CN: Vf full, , EOMI, PERRLA, face/tongue/palate/sensation/shoulder shrug symmetric, facial sensation symmetric, hearing intact bilaterally, Motor: symmetric Sensory: los of vibration distally DTR: normal tone, no pathological reflexes, normal bulk/tone 5 sec vib at the ankle coordination/cerebellar: no dysmetria BG: no abnormal movements Gait:??deferrred ? Assessment/Plan 1.??Encephalopathy 2.??Fever 3.??Choreiform movements ??suspect AMS related medication mismanagement either withdrawal or overdose.?? possibly SSRI withdrawal from lexapro. no further work up 4.??Acute kidney injury 5.??Restless legs syndrome ??suspect secondary to diabetic neuropathy.?? will add lyrica 50mg to her pramipexole to see if there is benefit ?? 6.??Depression Orders: pregabalin, 50 MG = 1 CAP, form= CAP, PO, TID, NOW, 09/09/22 18:04:00 EDT, 7 Days, Stop date 09/16/22 18:03:00 EDT C-Reactive Protein, Blood, In Am (lab), Collection Date/Time 09/10/22 5:30:00 EDT, ONCE CBC, Blood, In Am (lab), Collection Date/Time 09/10/22 5:30:00 EDT, ONCE Comprehensive Metabolic Panel, Blood, In Am (lab), Collection Date/Time 09/10/22 5:30:00 EDT, ONCE Urine Culture, Urine - Clean Voided Specimen, Routine collect, Collection Date/Time 09/09/22 14:34:00 EDT, Nurse Collect Patient Prep: Radiology, 09/09/22 9:52:37 EDT, ONCE Transfer Patient, 09/08/22 21:32:00 EDT, Medical Floor Electronically Signed by: CATHIE RANDHAWA MD 09/09/2022 06:09 PM * SUKI JAMES MD: PERFORM, MODIFY Event Display: Infectious Disease Progress Note Authored Date: [id number] Demographics Name:AUBREE COUCH Date of :1950 Subjective Pt is lethargic but much ore awake than yesterday. Febrile to max 39.2. No cough or diarrhea. No headache. She states she has had no further abnormal movements. Objective Vitals & Measurements T:??36.8?C (Oral)?? TMIN:??36.3?C (Oral)?? TMAX:??39.2?C (Oral)?? HR:??88(Peripheral)??RR:??18?? BP:??109/64?? SpO2:??95%?? Body Mass Index Measured: 25.93 (09/08/22) Physical Exam Oropharynx: no thrush noted Lungs : Clear to auscultation Cardiac exam: Regular rate rate and rhythm Abdominal exam: Positive bowel sounds soft nontender; distended Extremity exam:??No??edema Skin; no rash Lab Results Glucose-Blood:??157 mg/dL??High Hemoglobin A1C:??6.5 %??High Blood Urea Nitrogen: 18.6 mg/dL Creatinine-Blood: 0.84 mg/dL eGFR Result : >60.00 eGFR Result Non-: >60.00 ?? Sodium Blood: 140 mmol/L Potassium-Blood: 3.6 mmol/L Chloride Blood: 107 mmol/L Total CO2 Blood: 24 mmol/L Anion Gap: 9 mEq/L Calcium Blood:??8.2 mg/dL??Low ?? AST: 25 U/L Alkaline Phosphatase: 83 U/L Protein Total-Blood:??5.7 g/dl??Low Albumin-Blood: 3.5 g/dl Bilirubin Total: <0.15 ALT: 23 U/L ?? Procalcitonin:??0.27 ng/mL??High ?? Vitamin B12: 1231 pg/mL ?? WBC:??11.3 x10 3 /uL??High RBC: 3.9 x10 6 /uL HGB:??11.7 g/dl??Low HCT:??35.5 %??Low MCV: 91 fL MCH: 30 pg MCHC: 33 g/dl RDW- SD: 47.3 fL MPV: 9.3 fL PLT: 238 x10 3 /uL Neut: 67.9 % ANC: 7.7 x10 3 /uL Lymph: 20.7 % A.3 x10 3 /uL Mobile: 10 % Eos: 0.6 % Baso: 0.4 % nRBC: 0 % Immature Granulocytes: 0.4 % Immature Grans Abs: 0 x10 3 /uL ?? Sed Rate:??39 mm/hr??High ?? ASO, DNASE B pending ?? Blood and CSF cultures: No growth to date Diagnostic Results Echo without valvular abnormalities ?? Impression: #Febrile illness associated with abnormal choreiform or myoclonic movements ? Possible drug reaction; possible underlying infection given elevated procalcitonin. # Lethargy; likely still related to sedation she received in ICU. # Restless leg syndrome # Tobacco abuse ?? Recommendations: Chest/Abd/pelvis CT today. Check EKG to look for IN prolongation. MRI brain a consideration if lethargy does not improve or movements return. Hold on antimicrobials for now. * THAI KEYES, JD Don: PERFORM Event Display: Hospitalist Progress Note Authored Date: [id number] Demographics Name:AUBREE COUCH Date of :1950 Chief Complaint pt reports she forgot to take her lexapro for 2 days, today was going somewhere and started having chills and twitching Assessment/Plan Fever of unknown origin Involuntary choreiform movements??of unclear etiology COPD Restless leg syndrome Depression Discussion As patient still with fever this morning would advocate for??further observation??as an inpatient. Ambulate today. Follow-up??CSF and blood culture results. Discontinue IV fluids. If patient wants to leave she will have to sign out AGAINST MEDICAL ADVICE. Subjective Patient is lying flat in bed. She is awake, alert and lucid. She reports no further choreiform movements. She complains of usual restless legs. She had??low-grade fever this morning. She is adamant about going home. Infectious disease??and neurology evaluations yesterday appreciated. Antibiotics discontinued. Objective Vitals & Measurements T:??36.8?C (Oral)?? TMIN:??36.3?C (Oral)?? TMAX:??39.2?C (Oral)?? HR:??88(Peripheral)??RR:??18?? BP:??109/64?? SpO2:??95%?? Body Mass Index Measured: 25.93 (09/08/22) Physical Exam General:?? no acute distress Respiratory: normal chest wall expansion, CTA B, no r/r/w, no rubs Cardiovascular: RRR, no m/r/g, Normal S1 and S2 Abdomen: Soft, non-tender, non-distended, normal bowel sounds in all quadrants, no hepatosplenomegaly, no tympany Integumentary: warm, dry, and pink, with no rash, purpura, or petechia Neurological: 2+ patellar reflexes, Cranial Nerves II-XII grossly intact, no tics, normal sensationto pressure and light touch Lab Results Glucose-Blood:??157 mg/dL??High Blood Urea Nitrogen: 18.6 mg/dL Creatinine-Blood: 0.84 mg/dL eGFR Result : >60.00 eGFR Result Non-: >60.00 Sodium Blood: 140 mmol/L Potassium-Blood: 3.6 mmol/L Chloride Blood: 107 mmol/L Total CO2 Blood: 24 mmol/L Anion Gap: 9 mEq/L Calcium Blood:??8.2 mg/dL??Low AST: 25 U/L Alkaline Phosphatase: 83 U/L Protein Total-Blood:??5.7 g/dl??Low Albumin-Blood: 3.5 g/dl Bilirubin Total: <0.15 ALT: 23 U/L WBC:??11.3 x10 3 /uL??High RBC: 3.9 x10 6 /uL HGB:??11.7 g/dl??Low HCT:??35.5 %??Low MCV: 91 fL MCH: 30 pg MCHC: 33 g/dl RDW- SD: 47.3 fL MPV: 9.3 fL PLT: 238 x10 3 /uL Neut: 67.9 % ANC: 7.7 x10 3 /uL Lymph: 20.7 % A.3 x10 3 /uL Mobile: 10 % Eos: 0.6 % Baso: 0.4 % nRBC: 0 % Immature Granulocytes: 0.4 % Immature Grans Abs: 0 x10 3 /uL Medications Inpatient Acetaminophen, 650 MG= 2 TAB, PO, [id number], PRN Aerochamber (Optichamber), 1 DEV= 1 EA, Inhale, As Directed, PRN Ativan, 0.5 MG= 0.25 ML, IV Push, [id number], PRN Dexmedetomidine 400 MCG [0.4 mcg/kg/hr] + Premix NS 100 ML ferrous sulfate, 325 MG= 1 TAB, PO, QDay fluticasone-vilanterol, 1 INH, Inhale, QDay ipratropium, 0.5 MG= 2.5 ML, Via Neb, Four times a day - resp, PRN lidocaine 1% injectable, 2 MG= 0.2 ML, Intradermal, Four times a day, PRN LMX 4, 1 APPL, Topically, Four times a day, PRN pneumococcal 20-valent conjugate vaccine, 0.5 ML, INTRAMUSCULAR, As Directed pramipexole, 3 MG= 2 TAB, PO, QDay Sodium Chloride 0.9% 1,000 ML, 1000 ML, IV(Cont.) sodium chloride bacteriostatic 0.9% injectable, 0.2 ML, Intradermal, Four times a day, PRN Ventolin HFA 90 mcg/inh inhalation aerosol, 180 MCG= 2 PUFF, Inhale, [id number], PRN Primary Care Provider NOT IN DICTIONARY Electronically Signed by: JD ANDRE MD 09/09/2022 09:08 AM * JD ANDRE MD: PERFORM Event Display: Hospitalist Progress Note Authored Date: [id number] Demographics Name:AUBREE COUCH Date of :1950 Chief Complaint pt reports she forgot to take her lexapro for 2 days, today was going somewhere and started having chills and twitching Assessment/Plan Fever of unknown origin Involuntary choreiform movements??of unclear etiology COPD Restless leg syndrome Depression Discussion Continue Precedex drip for now. Continue IV fluids. Follow-up??blood, CSF and urine culture results. Continue??IV acyclovir, vancomycin and ceftriaxone. Infectious disease evaluation. Neurology evaluation. 32 minutes spent on critical care time. Subjective Patient is lying flat in bed with nasal O2 in place. She is on 4 L/min. She is presently sedated on a Precedex drip. Nursing??reports??patient had??uncontrolled??choreiform movements throughout the night.?? She received??0.5 mg of IV Ativan x2, 5 mg of Zyprexa and 1 mg of Cogentin prior to Precedex drip. Lumbar puncture results noted??and??not consistent with meningitis. Objective Vitals & Measurements T:??35.7?C (Axillary)?? TMIN:??35.7?C (Axillary)?? TMAX:??38.5?C (Oral)?? HR:??51(Peripheral)?? HR:??53(Apical)?? RR:??20?? BP:??124/79?? SpO2:??98%?? HT:??165??cm?? WT:??70.6??KG?? Body Mass Index Measured: 25.93 (09/08/22) Physical Exam General: no acute distress Respiratory: normal chest wall expansion, CTA B, no r/r/w, no rubs Cardiovascular: RRR, no m/r/g, Normal S1 and S2 Abdomen: Soft, non-tender, non-distended, normal bowel sounds in all quadrants, no hepatosplenomegaly, no tympany Integumentary: warm, dry, and pink, with no rash, purpura, or petechia Neurological: Sedated Lab Results Glucose-Blood:??165 mg/dL??High Blood Urea Nitrogen:??24.9 mg/dL??High Creatinine-Blood:??0.96 mg/dL??High eGFR Result : >60.00 eGFR Result Non-:??57.46 mL/min/1.73m?Low Sodium Blood:??135 mmol/L??Low Potassium-Blood: 3.8 mmol/L Chloride Blood: 99 mmol/L Total CO2 Blood: 25 mmol/L Anion Gap: 11 mEq/L Calcium Blood: 9.1 mg/dL AST: 22 U/L Alkaline Phosphatase: 90 U/L Protein Total-Blood: 6.9 g/dl Albumin-Blood: 4.2 g/dl Bilirubin Total: 0.17 mg/dL ALT: 20 U/L Lactic Acid: 1.1 mmol/L C-Reactive Protein:??12.25 mg/dL??High pH-AB.39 pCO2: 38 mmHg pO2:??62 mmHg??Low HCO3: 22 BE: -[address]:??17??Low TCO2: 24 O2 Sat: 92 % Ventilation: 2L NC Pat Temp: 37 Patient Activity Level: Resting Glucose-CSF:??83 mg/dL??High Protein Total-CSF: 22 mg/dL Type of Fluid: Cerebral Spinal Fluid Tube #: 3 Vol: 4.1 ML Color-Cell Count: See comments Clarity: See comments RBC #: <0.003 WBC/Other #: <0.010 Polys:??54 %??High Lymphocytes:??33 %??Low Monocytes:??13 %??Low Xanthochromia: Not Present WBC:??15.7 x10 3 /uL??High RBC: 4.25 x10 6 /uL HGB: 12.9 g/dl HCT: 38.2 % MCV: 89.9 fL MCH: 30.4 pg MCHC: 33.8 g/dl RDW- SD: 47 fL MPV: 9 fL PLT: 246 x10 3 /uL Neut:??75.8 %??High ANC:??11.9 x10 3 /uL??High Lymph:??15.3 %??Low A.4 x10 3 /uL Mobile: 8.2 % Eos: 0.1 % Baso: 0.2 % nRBC: 0 % Immature Granulocytes: 0.4 % Immature Grans Abs: 0.1 x10 3 /uL Specific [place]:??1.006??Low pH-Urine: 6.5 Glucose: NEGATIVE Bilirubin: NEGATIVE Ketones: NEGATIVE Blood: Small Abnormal Protein: NEGATIVE Urobilinogen: 0.2 mg/dL Nitrite: NEGATIVE Leukocytes: Trace Abnormal Epithelial Cells: Occasional WBC - Urine: 3-5 RBC - ??Urine: 3-5 Abnormal Bacteria: None Seen Hyaline Casts: None Seen Influenza A by PCR: NEGATIVE Influenza B by PCR: NEGATIVE CoVID 19 GFH: NEGATIVE Adenovirus PCR: NOT DETECTED Coronavirus HKU1: NOT DETECTED Coronavirus NL63: NOT DETECTED Coronavirus 229E: NOT DETECTED Coronavirus OC43: NOT DETECTED Human Metapneumovirus: NOT DETECTED Human Rhinovirus/Enterovirus: NOT DETECTED Influenza A: NOT DETECTED Influenza A/H1: NOT DETECTED Influenza A/H1-2009: NOT DETECTED Influenza A/H3: NOT DETECTED Influenza B: NOT DETECTED Parainfluenza 1: NOT DETECTED Parainfluenza 2: NOT DETECTED Parainfluenza 3: NOT DETECTED Parainfluenza 4: NOT DETECTED Respiratory Syncytial Virus: NOT DETECTED Bordetella parapertussis: NOT DETECTED Bordetella pertussis: NOT DETECTED Chlamydophila pneumoniae: NOT DETECTED SARS-CoV-2: NOT DETECTED Mycoplasma pneumoniae: NOT DETECTED RSV by PCR: NEGATIVE Strep A PCR: Not Detected Medications Inpatient Acetaminophen, 650 MG= 2 TAB, PO, [id number], PRN acyclovir Aerochamber (Optichamber), 1 DEV= 1 EA, Inhale, As Directed, PRN Ativan, 0.5 MG= 0.25 ML, IV Push, [id number], PRN cefTRIAXone, 2 GM= 100 ML, IV Piggyback, [id number] Dexmedetomidine 400 MCG [0.4 mcg/kg/hr] + Premix NS 100 ML ferrous sulfate, 325 MG= 1 TAB, PO, QDay fluticasone-vilanterol, 1 INH, Inhale, QDay ipratropium, 0.5 MG= 2.5 ML, Via Neb, Four times a day - resp lidocaine 1% injectable, 2 MG= 0.2 ML, Intradermal, Four times a day, PRN LMX 4, 1 APPL, Topically, Four times a day, PRN pneumococcal 20-valent conjugate vaccine, 0.5 ML, INTRAMUSCULAR, As Directed pramipexole, 3 MG= 2 TAB, PO, QDay Sodium Chloride 0.9% 1,000 ML, 1000 ML, IV(Cont.) sodium chloride bacteriostatic 0.9% injectable, 0.2 ML, Intradermal, Four times a day, PRN Vancomycin IV ADULT Dosing Per Pharmacy Protocol, 1 EA, N/A, As Directed Ventolin HFA 90 mcg/inh inhalation aerosol, 180 MCG= 2 PUFF, Inhale, [id number], PRN Primary Care Provider NOT IN DICTIONARY Electronically Signed by: JD ANDRE MD 09/08/2022 08:02 AM History and Physical * JOCELIN KEYES, KOJO Gaston: MODIFY, MODIFY, PERFORM, MODIFY Event Display: History and Physical Authored Date: [id number] Patient Demographics Name:AUBREE COUCH Address: [address] [place] [address] Sex:FEMALE Date of :1950 Emergency Contact:GRACIELA COUCH PCP NOT IN DICTIONARY Chief Complaint pt reports she forgot to take her lexapro for 2 days, today was going somewhere and started having chills and twitching History of Present Illness Patient is a 72-year-old female with history of restless legs syndrome and depression, who presentsto the ER with 2 - 3 days of fever and chills and worsening of involuntary body movements.?? She also notes having not taken her medications, including Lexapro and pramipexole, for a few days.?? She first noted chills 3 days ago, and then noted a fever yesterday.?? She denies any cough or URI symptoms.?? She denies nausea, vomiting, abdominal pain or diarrhea.?? Upon arrival to the ER, she was febrile and tachycardic.?? She was noted to have choreiform type movements of all 4 limbs, and was notably restless, frequently jumping up from the stretcher to move around.?? She stated that these movements were involuntary.?? She also seemed somewhat confused at times.?? Laboratory workup revealed leukocytosis and acute renal failure.?? Imaging studies were unremarkable.?? A lumbar puncture was done, the results of which are still pending.?? She was empirically placed on Ceftriaxone, Vancomycin and Acyclovir.?? Even after multiple doses of benzodiazepines, she was still having choreiform type movements, so she was placed on a Precedex drip.?? She is being admitted to Critical Care. Review of Systems Constitutional: Positive for fever and chills. Eye: No recent visual problem, No icterus, No discharge, No double vision. Ear/Nose/Mouth/Throat: No decreased hearing, No ear pain, No nasal congestion, No sore throat. Respiratory: No shortness of breath, No cough, No sputum production, No hemoptysis, No wheezing, Nocyanosis. Cardiovascular: No chest pain, No palpitations, No bradycardia, No tachycardia, No peripheral edema, No syncope. Gastrointestinal: No nausea, No vomiting, No diarrhea, No constipation, No heartburn, No abdominal pain. Genitourinary: No dysuria, No hematuria, No change in urine stream, No urethral discharge, No lesions. Hematology/Lymphatics: No bruising tendency, No bleeding tendency, No petechiae, No swollen lymph glands. Endocrine: No excessive thirst, No polyuria, No cold intolerance, No heat intolerance, No excessivehunger. Immunologic: Not immunocompromised, No recurrent fevers, No recurrent infections. Musculoskeletal: No back pain, No neck pain, No joint pain, No muscle pain, No claudication, No decreased range of motion, No trauma. Integumentary: No rash, No pruritus, No abrasions. Neurologic: Positive for intermittent confusion and involuntary movements of limbs Psychiatric: No anxiety, No depression, No freddy.. Physical Exam Vitals & Measurements T:??36.5?C (Oral)?? TMIN:??36.3?C (Oral)?? TMAX:??38.5?C (Oral)?? HR:??72(Peripheral)??HR:??72(Apical)?? RR:??23?? BP:??110/70?? SpO2:??93%?? HT:??154.94??cm?? WT:??70.6??KG?? WT:??70.6??KG?? General: No acute distress HEENT: Atraumatic, PERRL, moist mucosa, normal pharynx, normal tonsils and adenoids, normal tongue,no fluid in sinuses Neck: Trachea midline, no carotid bruit, no masses Respiratory: Normal chest wall expansion, CTA B/L, no r/r/w, Cardiovascular: RRR, no m/r/g, Normal S1 and S2 Abdomen: Soft, non-tender, non-distended, normal bowel sounds in all quadrants, no hepatosplenomegaly, no tympany Genitourinary: No inguinal hernia, normal external genitalia Rectal: Deferred Musculoskeletal: Choreiform type movements noted.?? No muscle rigidity Integumentary: Warm, dry, and pink, with no rash, purpura, or petechia Heme/Lymph: No lymphadenopathy, no bruises Neurological: Choreiform type movments Psychiatric: Confused Condition on Admission: Serious: Vital signs may be unstable and not within acceptable limits. Patient is acutely ill. Clinical indicators are questionable. Patient Status: Inpatient: Patient requires medically necessary hospital level of care that is expected to last 2 or more midnights Disposition: Estimated 2 to 3 days Assessment/Plan 1.??Encephalopathy -Likely infectious vs. toxic metabolic vs. other etiology -Lumbar puncture done, with CSF results pending -Empirically started on IV Rocephin, Vancomycin and Acyclovir for suspected meningitis -Blood cultures pending -Placed on Precedex drip -Prn benzodiazepines ?? 2.??Fever -Likely due to infectious etiology vs. mild rhabdomyolysis from chorea -Empirically started on IV antibiotics -CSF studies and blood cultures pending ?? 3.??Choreiform movements -Patient take pramipexole for RLS, and these movements may be a progression of her movement disorder -At age 72, it is much less likely to be the onset of [place]'s disease or similar -NOT a known side effect of Lexapro -Consult Neurology ?? 4.??Acute kidney injury -Likely due to dehydration -IV fluids ?? 5.??Restless legs syndrome -Resume pramipexole ?? 6.??Depression -Hold Lexapro for now due to neurologic symptoms ?? CC/PCP/Referring Provider NOT IN DICTIONARY ?? Problem List/Past Medical History Ongoing Depression Restless legs syndrome Historical No qualifying data Home Medications Home Albuterol (Eqv-ProAir HFA) 90 mcg/inh inhalation aerosol, 2 PUFF, Inhale, [id number], PRN ascorbic acid 500 mg oral tablet, 500 MG= 1 TAB, PO, QDay,?Still taking, OTC celecoxib 200 mg oral capsule, 200 MG= 1 CAP, PO, QDay, PRN,?Not taking cholecalciferol 2000 intl units oral tablet, 50 MCG= 1 TAB, PO, QDay,?Still taking, OTC escitalopram 10 mg oral tablet, 10 MG= 1 TAB, PO, QDay,?Still taking, not as prescribed: misseddose the last few days ferrous sulfate 325 mg (65 mg elemental iron) oral tablet, 325 MG= 1 TAB, PO, QDay,?Still taking, OTC ibuprofen 200 mg oral tablet, 800 MG= 4 TAB, PO, QDay,?Still taking, OTC pramipexole 3 mg oral tablet, extended release, 3 MG= 1 TAB, PO, QDay,?Still taking, not as prescribed: prescribed 1 tab BID Trelegy Ellipta inhalation powder, 1 PUFF, Inhale, QDay Allergies NKA Social History Smoking Status Current every day smoker Lab Results Glucose-Blood:??165 mg/dL??High Blood Urea Nitrogen:??24.9 mg/dL??High Creatinine-Blood:??0.96 mg/dL??High eGFR Result : >60.00 eGFR Result Non-:??57.46 mL/min/1.73m?Low Sodium Blood:??135 mmol/L??Low Potassium-Blood: 3.8 mmol/L Chloride Blood: 99 mmol/L Total CO2 Blood: 25 mmol/L Anion Gap: 11 mEq/L Calcium Blood: 9.1 mg/dL AST: 22 U/L Alkaline Phosphatase: 90 U/L Protein Total-Blood: 6.9 g/dl Albumin-Blood: 4.2 g/dl Bilirubin Total: 0.17 mg/dL ALT: 20 U/L Lactic Acid: 1.1 mmol/L C-Reactive Protein:??12.25 mg/dL??High pH-AB.39 pCO2: 38 mmHg pO2:??62 mmHg??Low HCO3: 22 BE: -[address]:??17??Low TCO2: 24 O2 Sat: 92 % Ventilation: 2L NC Pat Temp: 37 Patient Activity Level: Resting Glucose-CSF:??83 mg/dL??High Protein Total-CSF: 22 mg/dL Type of Fluid: Cerebral Spinal Fluid Tube #: 3 Vol: 4.1 ML Color-Cell Count: See comments Clarity: See comments RBC #: <0.003 WBC/Other #: <0.010 Polys:??54 %??High Lymphocytes:??33 %??Low Monocytes:??13 %??Low Xanthochromia: Not Present WBC:??15.7 x10 3 /uL??High RBC: 4.25 x10 6 /uL HGB: 12.9 g/dl HCT: 38.2 % MCV: 89.9 fL MCH: 30.4 pg MCHC: 33.8 g/dl RDW- SD: 47 fL MPV: 9 fL PLT: 246 x10 3 /uL Neut:??75.8 %??High ANC:??11.9 x10 3 /uL??High Lymph:??15.3 %??Low A.4 x10 3 /uL Mobile: 8.2 % Eos: 0.1 % Baso: 0.2 % nRBC: 0 % Immature Granulocytes: 0.4 % Immature Grans Abs: 0.1 x10 3 /uL Influenza A by PCR: NEGATIVE Influenza B by PCR: NEGATIVE CoVID 19 GFH: NEGATIVE Adenovirus PCR: NOT DETECTED Coronavirus HKU1: NOT DETECTED Coronavirus NL63: NOT DETECTED Coronavirus 229E: NOT DETECTED Coronavirus OC43: NOT DETECTED Human Metapneumovirus: NOT DETECTED Human Rhinovirus/Enterovirus: NOT DETECTED Influenza A: NOT DETECTED Influenza A/H1: NOT DETECTED Influenza A/H1-2009: NOT DETECTED Influenza A/H3: NOT DETECTED Influenza B: NOT DETECTED Parainfluenza 1: NOT DETECTED Parainfluenza 2: NOT DETECTED Parainfluenza 3: NOT DETECTED Parainfluenza 4: NOT DETECTED Respiratory Syncytial Virus: NOT DETECTED Bordetella parapertussis: NOT DETECTED Bordetella pertussis: NOT DETECTED Chlamydophila pneumoniae: NOT DETECTED SARS-CoV-2: NOT DETECTED Mycoplasma pneumoniae: NOT DETECTED RSV by PCR: NEGATIVE Strep A PCR: Not Detected Resuscitation Status no order found DVT Prophylaxis SCDs Electronically Signed by: KOJO MONREAL MD 09/08/2022 07:25 AM ED Note-Physician * GOGO PNA DO: PERFORM, MODIFY, SIGN, VERIFY Event Display: ED Note-Physician Authored Date: Patient: AUBREE COUCH Age: 72 years Sex: FEMALE : 1950 Author: GOGO PAN DO Attachments: None Basic Information Time seen: 09/07/22 21:47:34. Pt Identification: ID bracelet was verified for correct name and .. Mode of Arrival: Wheelchair . PCP: NOT IN DICTIONARY. History of Present Illness Chief Complaint: Involuntary movement, fever, chills. HPI: This is a 72-year-old female with a past medical history of COPD, restless leg syndrome who presents for evaluation of involuntary movement, chills. The patient states that she has not felt wellfor the last few days. She describes feeling chills over the last 2 to 3 days. She states that 3 days ago she developed involuntary movements. She appears quite restless. She intermittently moves herarms and legs and stands up from the hospital bed. She states that she is unable to control these movements. She states that she was unable to get any sleep last night because she could not stop moving. Her friend brought her to the emergency department today. She was noted to have a fever. The patient states that she has had some sinus congestion and mild cough but no other symptoms. No abdominal pain. No dysuria.. Past Medical/ Family/ Social History Medical history: Respiratory: Chronic obstructive pulmonary disease. Surgical history: Reviewed as documented in chart. Social history: Reviewed as documented in chart, Tobacco history Current every day smoker , Alcoholhistory No . Medications: escitalopram 10 mg oral tablet(escitalopram) QDay PO 1 TAB 10 MG Albuterol (Eqv-ProAir HFA) 90 mcg/inh inhalation aerosol(albuterol) [id number] Inhale 2 PUFF Trelegy Ellipta inhalation powder(fluticasone/umeclidinium/vilanterol) QDay Inhale 1 PUFF pramipexole 3 mg oral tablet, extended release(pramipexole) BID PO 1 TAB 3 MG celecoxib 200 mg oral capsule(celecoxib) QDay PO 1 CAP 200 MG ferrous sulfate 325 mg (65 mg elemental iron) oral tablet(ferrous sulfate) QDay PO 1 TAB 325 MG cholecalciferol 2000 intl units oral tablet(cholecalciferol) QDay PO 1 TAB 50 MCG ascorbic acid 500 mg oral tablet(ascorbic acid) QDay PO 1 TAB 500 MG ibuprofen 200 mg oral tablet(IBUPROFEN) QDay PO 4 TAB 800 MG. External Notes: Reviewed. Physical Examination Vital signsT:38.5 P:119 AP: RR:22 SB:110 DB:67 . Exam:Gen Appearance: Restless, involuntary appearing movement of the limbs, torso. HEENT: Normocephalic atraumatic, PERRL, EOMI NECK: supple CV: nl S1/S2, no r/m Lungs: CTA b/l, equal chest rise Abd: soft; non distended, non tender Ext: no edema or asymmetry MSK: no gross deformity, full range of motion of all joints Skin: warm, dry, no rash, laceration or abrasion Neuro: A&Ox3, CN2-12 intact, 5/5 strength in the bilateral upper and lower extremities. Psych: Appropriate. Impression and Plan 72-year-old female presents for evaluation of what appears to be choreiform movements, fever. Vital signs reveal fever, tachycardia. We will administer antipyretics begin infectious work-up. Plan for CT head. Medical Decision Making Results Labs Glucose-Blood: 165 mg/dL High Blood Urea Nitrogen: 24.9 mg/dL High Creatinine-Blood: 0.96 mg/dL High eGFR Result : >60.00 eGFR Result Non-: 57.46 mL/min/1.73m?? Low Sodium Blood: 135 mmol/L Low Potassium-Blood: 3.8 mmol/L Chloride Blood: 99 mmol/L Total CO2 Blood: 25 mmol/L Anion Gap: 11 mEq/L Calcium Blood: 9.1 mg/dL AST: 22 U/L Alkaline Phosphatase: 90 U/L Protein Total-Blood: 6.9 g/dl Albumin-Blood: 4.2 g/dl Bilirubin Total: 0.17 mg/dL ALT: 20 U/L Lactic Acid: 1.1 mmol/L C-Reactive Protein: 12.25 mg/dL High WBC: 15.7 x10 3 /uL High RBC: 4.25 x10 6 /uL HGB: 12.9 g/dl HCT: 38.2 % MCV: 89.9 fL MCH: 30.4 pg MCHC: 33.8 g/dl RDW- SD: 47 fL MPV: 9 fL PLT: 246 x10 3 /uL Neut: 75.8 % High ANC: 11.9 x10 3 /uL High Lymph: 15.3 % Low A.4 x10 3 /uL Mobile: 8.2 % Eos: 0.1 % Baso: 0.2 % nRBC: 0 % Immature Granulocytes: 0.4 % Immature Grans Abs: 0.1 x10 3 /uL Influenza A by PCR: NEGATIVE Influenza B by PCR: NEGATIVE CoVID 19 GFH: NEGATIVE Adenovirus PCR: NOT DETECTED Coronavirus HKU1: NOT DETECTED Coronavirus NL63: NOT DETECTED Coronavirus 229E: NOT DETECTED Coronavirus OC43: NOT DETECTED Human Metapneumovirus: NOT DETECTED Human Rhinovirus/Enterovirus: NOT DETECTED Influenza A: NOT DETECTED Influenza A/H1: NOT DETECTED Influenza A/H1-2009: NOT DETECTED Influenza A/H3: NOT DETECTED Influenza B: NOT DETECTED Parainfluenza 1: NOT DETECTED Parainfluenza 2: NOT DETECTED Parainfluenza 3: NOT DETECTED Parainfluenza 4: NOT DETECTED Respiratory Syncytial Virus: NOT DETECTED Bordetella parapertussis: NOT DETECTED Bordetella pertussis: NOT DETECTED Chlamydophila pneumoniae: NOT DETECTED SARS-CoV-2: NOT DETECTED Mycoplasma pneumoniae: NOT DETECTED RSV by PCR: NEGATIVE Strep A PCR: Not Detected Imaging: Independently visualized by me and preliminary interpretation by [facility]: CT head: No acute intracranial abnormality Imaging Chest One View (09/08 2023): no acute cardiopulmonary process Reassessment CBC reveals leukocytosis. CMP is unremarkable. CRP is elevated. Lactic acid within normal limits. Respiratory viral panel is negative. Chest x-ray shows no acute process. The patient has what appears to be involuntary choreiform movements on exam. She endorses a recent illness. CT head was obtained which shows no acute intracranial process. I discussed results with the patient at the bedside. The etiology of her symptoms is unclear. I have recommended lumbar puncture to obtain CSF as I do have concern for possible infectious etiology of the patient's neurologic symptoms, fever. She is agreeable to lumbar puncture. We discussed the risks and benefits of this procedure. Patient was given a dose of Versed prior to initial LP attempt. Unfortunately she was unable to remain still despite this. I discussed doing the procedure under procedural sedation with the patient. She verbally consented to this. Propofol sedation was performed in conjunction with my colleague Dr. Reyna. CSF was obtained. The patient tolerated sedation well. Patient continues to be restless with what appears to be involuntary movements. CSF studies are pending. The patient was treated with ceftriaxone, vancomycin and acyclovir given concern for possible encephalitis or meningitis. The patient was placed on Precedex for sedation. She will require admission to the intensive care unit for further work-up. She is agreeable to admission. I discussed admission with the hospitalist. Diagnosis Choreiform movements Febrile illness Leukocytosis COPD Condition: Critical Admit ICU/CCU Critical care note Total time: 105 minutes, Critical care included time spent at bedside, review of studies, discussion with family/consultants and documentation but excluded any separately billable procedures.. Disclaimer This note was partially generated using voice recognition system, and there may be some incorrect words, spellings, and punctuation that were not noted in checking the note before saving. Procedure Lumbar puncture note indication: Meningitis. Informed consent: Obtained. [place] protocol: Time out occured prior to procedure. location: L4/L5 Interspace. patient position: Left lateral side. preparation: Betadine x3, Sterile drape applied. local anesthesia: 1% lidocaine, 5 cc. spinal needle size: 22 gauge x 3.5. opening pressure: Not measured. spinal fluid return: Initially pink but became clear in later tubes. Closing pressure: Not measured. procedure tolerated: Well. post procedure motor and sensation: Normal. Complications: None. Procedural sedation Indication:: To provide the patient comfort during painful procedure.. Informed Consent:: The risks and benefits of the procedure were explained and the patient verbalized understanding and wished to proceed with procedure.. Procedural Sedation Anesthesia: Propofol: 120 mg. Procedure Note: Procedural sedation for LP. Propofol given. Procedure successful. Electronically Signed by: GOGO PAN DO 09/08/2022 02:14 AM * KASI GUILLEN: PERFORM KASI GUILLEN: PERFORM, SIGN KASI GUILLEN: SIGN, VERIFY Event Display: ED Note-Physician Authored Date: [id number] Patient: AUBREE COUCH Age: 72 years Sex: FEMALE : 1950 Author: KASI GUILLEN Attachments: None Free Text Patient briefly evaluated in triage 72-year-old female patient maintained on Lexapro presenting with concerns that she has started to have involuntary twitching of her body. She realized she had forgotten to take her dose last 2 days but took it this evening upon this realization. Reports feeling chilled but denies any other associated symptoms. No new medications. Brief physical exam: Female patient seated in a wheelchair with dyskinesias, notably of the extremities, torso, neck. Neurologically intact otherwise, able to carry on a conversation. Breathing is normal with equal chest rise. We will offer Cogentin for what seems to be extrapyramidal symptoms. Triaged to the main ED Electronically Signed by: KASI GUILLEN 09/07/2022 08:07 PM Electronically Signed by: ELEANOR MCGINNIS DO 09/11/2022 07:24 AM Note * CATHIE HERNANDEZ MD: PERFORM, VERIFY, VERIFY Event Display: CT Read Authored Date: [id number] PROVIDED HISTORY: fuo ADD'L HISTORY: - TECHNIQUE: Following IV contrast administration, CT imaging was performed of the CHEST ABDOMEN AND PELVIS. Axial and coronal reconstructed images were provided by the technologist. COMPARISON: No previous FINDINGS: MEDIASTINUM/HALEIGH: Thyroid grossly normal. Scattered nonenlarged lymph nodes. No lymphadenopathy. LUNGS/PLEURA: Minimal bibasilar and biapical subsegmental atelectasis. No acute pulmonary infiltrates. No pneumothorax or effusion. AORTA: Normal in contour. PULM. ARTERIES: Normal contours. HEART: No cardiomegaly. Trace effusion. Scattered coronary calcifications evident. CHEST WALL: No axillary or supraclavicular adenopathy. LIVER: Homogeneous without mass. GALLBLADDER: No evidence of acute biliary obstruction. ADRENALS: Normal in contour. PANCREAS: No gross mass or inflammation. SPLEEN: Grossly homogeneous. Small accessory spleen left upper quadrant. KIDNEYS: Mottled enhancement of the upper LEFT kidney with delayed nephrogram of the upper pole. Minimal lower pole enhancement patterns normal. Possible nonobstructing RIGHT lower pole calyceal calculus measuring about 9 mm. Mild RIGHT hydroureteronephrosis with RIGHT ureter mildly dilated down tothe bladder. There are bilateral phleboliths but no definite ureteral calculus. VASCULAR: Scattered calcific plaque visible in the wall of the aorta without aneurysm. STOMACH/BOWEL: No segmental bowel edema or dilatation. RETROPERITONEUM: Scattered nonenlarged lymph nodes; no adenopathy. REPRODUCTIVE: Uterus and adnexa appear surgically absent. BLADDER: Trace air within the lumen; no mass lesions or inflammatory changes. There is linear soft tissue stranding toward the umbilicus could represent remnant of urachus. BONES: Throughout the lower thoracic and lumbar spine there appears to the diffusely sclerotic pattern in a nonfocal distribution suggestive of metabolic etiologies such as renal osteodystrophy or calcium metabolism disorder; no aggressive bony lesions identified. The heights of the vertebral bodies are maintained. No active erosions. OTHER: No ascites. IMPRESSION: Mottled enhancement pattern of the LEFT mid to upper kidney consistent with edema or partial infarct; differential includes hilar nephritis, embolization secondary to endocarditis. Right mild hydroureteronephrosis without identifiable source; differential includes obstruction secondary to nonradiopaque calculus, mass lesion of distal bladder or ureter. Consider repeat study with hematuria protocol to allow for delayed opacification of the collecting systems. Probable nonobstructing RIGHT intrarenal calculus. Trace air within the lumen of the urinary bladder; differential includes fistulization to skin or bowel, possible patent urachal remnant, recent urinary catheterization. No active inflammatory changeof the bladder. Diffusely sclerotic pattern of the thoracolumbar spine with a coarse diffuse distribution suggesting metabolic bone disease such as renal osteodystrophy. Marrow neoplasm cannot be excluded. Recommendcorrelation with blood counts and metabolic parameters. Additional incidental and/or chronic findings as described above. This CT exam was performed using one or more of the following dose reduction techniques: Automated exposure control, adjustment of the mA and/or kV according to patient size, and/or use of iterative reconstruction technique. This report was partially generated using voice recognition software, which may result in incorrectwords, misspellings, and punctuation errors that were not noted during review before finalization. FINAL REPORT Dictated By: CATHIE HERNANDEZ MD Electronically Signed By: CATHIE HERNANDEZ MD Signed Date/Time: 09/09/22 14:17:31 * CATHIE HERNANDEZ MD: PERFORM, VERIFY, VERIFY Event Display: CT Read Authored Date: [id number] PROVIDED HISTORY: bonny LEWIS HISTORY: - TECHNIQUE: Following IV contrast administration, CT imaging was performed of the CHEST ABDOMEN AND PELVIS. Axial and coronal reconstructed images were provided by the technologist. COMPARISON: No previous FINDINGS: MEDIASTINUM/HALEIGH: Thyroid grossly normal. Scattered nonenlarged lymph nodes. No lymphadenopathy. LUNGS/PLEURA: Minimal bibasilar and biapical subsegmental atelectasis. No acute pulmonary infiltrates. No pneumothorax or effusion. AORTA: Normal in contour. PULM. ARTERIES: Normal contours. HEART: No cardiomegaly. Trace effusion. Scattered coronary calcifications evident. CHEST WALL: No axillary or supraclavicular adenopathy. LIVER: Homogeneous without mass. GALLBLADDER: No evidence of acute biliary obstruction. ADRENALS: Normal in contour. PANCREAS: No gross mass or inflammation. SPLEEN: Grossly homogeneous. Small accessory spleen left upper quadrant. KIDNEYS: Mottled enhancement of the upper LEFT kidney with delayed nephrogram of the upper pole. Minimal lower pole enhancement patterns normal. Possible nonobstructing RIGHT lower pole calyceal calculus measuring about 9 mm. Mild RIGHT hydroureteronephrosis with RIGHT ureter mildly dilated down tothe bladder. There are bilateral phleboliths but no definite ureteral calculus. VASCULAR: Scattered calcific plaque visible in the wall of the aorta without aneurysm. STOMACH/BOWEL: No segmental bowel edema or dilatation. RETROPERITONEUM: Scattered nonenlarged lymph nodes; no adenopathy. REPRODUCTIVE: Uterus and adnexa appear surgically absent. BLADDER: Trace air within the lumen; no mass lesions or inflammatory changes. There is linear soft tissue stranding toward the umbilicus could represent remnant of urachus. BONES: Throughout the lower thoracic and lumbar spine there appears to the diffusely sclerotic pattern in a nonfocal distribution suggestive of metabolic etiologies such as renal osteodystrophy or calcium metabolism disorder; no aggressive bony lesions identified. The heights of the vertebral bodies are maintained. No active erosions. OTHER: No ascites. IMPRESSION: Mottled enhancement pattern of the LEFT mid to upper kidney consistent with edema or partial infarct; differential includes hilar nephritis, embolization secondary to endocarditis. Right mild hydroureteronephrosis without identifiable source; differential includes obstruction secondary to nonradiopaque calculus, mass lesion of distal bladder or ureter. Consider repeat study with hematuria protocol to allow for delayed opacification of the collecting systems. Probable nonobstructing RIGHT intrarenal calculus. Trace air within the lumen of the urinary bladder; differential includes fistulization to skin or bowel, possible patent urachal remnant, recent urinary catheterization. No active inflammatory changeof the bladder. Diffusely sclerotic pattern of the thoracolumbar spine with a coarse diffuse distribution suggesting metabolic bone disease such as renal osteodystrophy. Marrow neoplasm cannot be excluded. Recommendcorrelation with blood counts and metabolic parameters. Additional incidental and/or chronic findings as described above. This CT exam was performed using one or more of the following dose reduction techniques: Automated exposure control, adjustment of the mA and/or kV according to patient size, and/or use of iterative reconstruction technique. This report was partially generated using voice recognition software, which may result in incorrectwords, misspellings, and punctuation errors that were not noted during review before finalization. FINAL REPORT Dictated By: CATHIE HERNANDEZ MD Electronically Signed By: CATHIE HERNANDEZ MD Signed Date/Time: 09/09/22 14:17:31 * CATHIE HERNANDEZ MD: PERFORM, VERIFY, VERIFY Event Display: CT Read Authored Date: [id number] HISTORY SUBMITTED: Headache, choreiform movements, sudden onset ADD'L HISTORY: - TECHNIQUE: NONCONTRAST computerized axial tomography was performed of the HEAD. Axial, sagittal, and coronal reconstructed images were provided by the technologist. COMPARISON: No Previous FINDINGS: CEREBRUM/CEREBELLUM: No acute intra-axial or extra-axial fluid collections identified. No acute parenchymal edema or hemorrhage identified. Mild diffuse decrease of white matter attenuation consistent with microvascular changes. VENTRICLES: Normal size and contour. Basilar cisterns are preserved. CALVARIUM: No depressed fracture or surgical change. SINUSES: Paranasal sinuses and temporal bone sinuses are clear. SCALP: No focal lesions or acute edema. IMPRESSION: Probable chronic microvascular changes of the hemispheric white matter. No acute intracranial pathology identified on CT examination. Cranial MRI should be strongly considered as a more sensitive test to detect acute intracranial pathology such as ischemia or edema if medically appropriate. [facility] Code: NH1 - Concur with preliminary report issue by [facility] . This CT exam was performed using one or more of the following dose reduction techniques: Automated exposure control, adjustment of the mA and/or kV according to patient size, and/or use of iterative reconstruction technique. This report was partially generated using voice recognition software, which may result in incorrectwords, misspellings, and punctuation errors that were not noted during review before finalization. FINAL REPORT Dictated By: CATHIE HERNANDEZ MD Electronically Signed By: CATHIE HERNANDEZ MD Signed Date/Time: 09/08/22 06:17:37 * Cathie Cuenca PERFORM ROBSTAD MD, KARL A: VERIFY Event Display: Clinical Information Authored Date: Specimen Source: CSF Specimen as Received: If slides, number of slides: If gross material, volume and description: Approximately 1 ml pink clear fluid question fixative, specimen added to NGYN Vial Patient History: Chorea and fever Note: ThinPrep examined. * Cathie Cuenca: SUSAN SHERIDAN MD, KARL A: VERIFY Event Display: Interpretive Diagnosis Authored Date: Negative For Malignancy Embroidery Operator: BOB Date Screened: 09/08/2022 Electronically signed and reviewed by: KELLI JERNIGAN MD * Cathie Cuenca A: TRANSCRIBE, PERFORM KELLI JERNIGAN MD A: VERIFY Event Display: NG Interpretive Adequacy Authored Date: SATISFACTORY * LEXI RAMSAY DO: PERFORM, VERIFY, VERIFY Event Display: DX Read Authored Date: HISTORY: Chest Pain COMPARISON: None VIEWS: Chest radiograph-one view. FINDINGS: Lines/Tubes/Devices: None. Lungs: No pneumothorax. No discrete focal consolidation. No overt edema. No appreciable pleural effusion. Cardiomediastinal Silhouette: Appropriate in size Osseous: Degenerative changes of AC joints. IMPRESSION: No acute cardiopulmonary process. FINAL REPORT Dictated By: LEXI RAMSAY DO Electronically Signed By: LEXI RAMSAY DO Signed Date/Time: 09/07/22 20:24:17 Care Team Care Team Personnel Name: [id number] -NOT IN DICTIONARY, Member Role: Primary Care Physician Name: Jaz Padilla RN Position: RN - ED Member Role: RN - Emergency Care Name: GOGO PAN DO Position: Physician - ED Member Role: Emergency Physician Address: [facility] [place] [place] [address]- Care Team Related Persons Name: GRACIELA COUCH [address] [address]
--- OUTSIDE RECORDS SUMMARY | 2024-07-07 20:06 | XMS_ITS | Encounter Summary ---
Author Organization [facility] Address [facility] [place] [address] [address] Team Prov[address] Care [address] Openings Inspector Name Role Phone Dilan Hernandez MD Primary Care Provider [phone] Reason for Visit * Reason Onset Date Comments Follow-up 02/18/2024 4 week call post hosp discharge for CHF/COPD Encounter Details Date Type Department Care Team (Late st Contact Info) Description 02/18/2024 [place] [phone] Suki Zaidi, SOFTWARE CONFIGURATION SPECIALIST Follow-up (4 week call post hosp discharge for CHF/COPD) Social History Tobacco Use Types Packs/Day Years [...] Sign Reading Time Taken Comments Blood Pressure - - Pulse - - Temperature - - Respiratory Rate - - Oxygen Saturation - - Inhaled Oxygen Concentration - - Weight 79.4 kg (175 lb) 02/19/2024 3:00 PM EDT Height - - Body Mass Index 33.07 02/19/2024 12:52 PM EDT documented in this encounter Miscellaneous Notes * Telephone Encounter - Suki Zaidi CMA - 02/19/2024 11:36 AM EDT Post-Discharge Heart Failure Phone Note Interview status: Complete Date of hospital discharge: 02/16/24 LOS: 4 days First home scale weight was 179.6 ls, one day after discharge and patient was adherent with torsemide 20 mg daily. They agreed to logging daily weights and reminded of instructions - If you are within safety range (+/- 3 pounds) of your GOAL WEIGHT then continue your torsemide 20 mg / one time per day. If your weight is above (>3lbs) the safety range of your GOAL WEIGHT, then DOUBLE your dose to torsemide 40mg / one time per day. You can go back to your original dose if you get back to your GOAL WEIGHT. Conversely, if your weight goes down below the safety range of your GOAL WEIGHT, then skip your dose of torsemide that day. You can go back to your original dose if you get back to your GOAL WEIGHT, in the coming weeks or until PCP adjusts target weight/instructions. On my call today today, 01/21/24, 48 hours post hospital discharge, patient states they are feeling better. Weight todayis 180 lb. Mallorie reports no new or worsening symptoms. Patient states they are planning to establish care with another provider. Patient wants to know if she should be taking lisinopril 20 mg daily a nd atorvastatin 40 mg daily (prescribed by her PCP). Mallorie also asked about a cardiology appointment. I let patient know I would relay these questions to the hospitalist Dr. Brito. On my call today, 01/29/24, one week post hospital discharge for CHF/COPD, patient reported they arefeeling worse, having had to go to the ED two days ago. Mallorie reports now having a UTI and pain related to her cough, around her chest. She reports her SOB is inconsistently, some days improved and some days worse. Patient is noticing some lower extremity edema as well. I went over the diuretic instructions with the patient. Mallorie has a PCP follow up on Thursday. She is aware that there is now a cardiology referral. On my call today, 02/19/24, four weeks post hospital discharge for CHF/COPD patient reports feeling the same. Mallorie reports having good and bad days and using the oxygen more. She reports having slightly worse fatigue and SOB with exertion. Also, Mallorie reports slightly more lower extremity edema. She states she thinks she is still holding on to fluid. Patient's weight is consistent with past weeks. PCP has increased patient's diuretic dose to torsemide 40 mg daily and she will see provider again this coming week. Was the patient admitted either primarily for acute decompensated heart failure or with CHF complicating their stay? Yes What type of CHF does the patient have? HFpEF Symptoms: Ask the patient: How are you doing now compared to your last day in the hospital? Same I am going to read to you a list of symptoms. Please let me know if you have experienced any of these problems worse than usual since we last spoke with you? - Fatigue: No - Shortness of breath at rest: NO - Exertional shortness of breath: Yes - Lower extremity edema: Yes - Abdominal distention: No If the patient endorses any of the above symptoms, ask the patient: Since we last spoke, have you spoken with a provider about your symptoms? Yes Did they make any changes in your diuretics? Yes Have you done those things? Yes, torsemide 40 mg daily Read original heart failure instructions. Weights: Weight at discharge: Wt Readings from Last 1 Encounters: 02/19/24 79.4 kg (175 lb) Do you have access to a scale? Yes Do you know when and how to weigh yourself? Yes Have you been weighing and do you have a place you can record your weights? Yes What was your highest weight since discharge or last call: 178 lb Lowest home weight (enter w/ calculator): 175 lb First home weight (lb)? 179.6 lb Current weight (lb)? 175 lb Do you have torsemide accessible to you? Yes Are you taking it according to these instructions? Yes Do you have contact information for your PCP or [place] Clerk or Home Health Agency? Yes Please say yes or no to indicate whether you acknowledge the following: - Do you know when your PCP and/or cardiology follow up appointment(s) are? Yes - Do you have transportation to and from that appointment? Yes - Did this encounter lead to a message or call to the provider? Yes If yes, to who? PCP Type of message sent: Message Expected time of next check in: No more calls * Telephone Encounter - Suki Zaidi CMA - 02/18/2024 11:57 AM EDT Tried calling patient. No answer. Will try calling again tomorrow. * Telephone Encounter - Suki Zaidi CMA - 02/18/2024 10:52 AM EDT LM for patient. Will try calling again later. documented in this encounter Plan of Treatment Upcoming Encounters Date Type Department Care Team (Late st Contact Info) Description 07/12/2024 8:[address] [facility] Hospital Encounter XRay at [address] [place] [address] [place] [address] Scheduled Procedures Name Priority Associated Diagnoses Date/Ti me INJECTION, FACET JOINT, W\FLUORO, LUMBAR, 2ND LEVEL (WRVU 1) Spondylosis of lumbar region without myelopathy or radiculopathy INJECTION, FACET JOINT, W\FLUORO, LUMBAR, SINGLE (WRVU 1.52) Spondylosis of lumbar region without myelopathy or radiculopathy documented as of this encounter Visit Diagnoses Not on filedocumented in this encounter Care Teams Street Openings Inspector Relationship Specialty Start Date End Date Dilan Hernandez MD [address] [place] [address] [place] [address] PCP - General 04/30/10 documented as of this encounter
--- OUTSIDE RECORDS SUMMARY | 2024-07-07 20:06 | XMS_ITS | Encounter Summary ---
Author Organization [facility] [address] Care Team Providers Care Link Trainer Maintenance Man Name Role Phone Dilan Hernandez MD Primary Care Provider [phone] Reason for Visit * Auth/Cert (Routine) Specialty Diagnoses / Procedures Referred By Contac t Referred To Contact Diagnoses Spinal stenosis of lumbar region with neurogenic claudication lumbar stenosis Procedures PRO INJECTION DX/THER SBST INTRLMNR LMBR/SAC W/IMG GDN INJECTION, EPIDURAL, LUMBAR OR SACRAL (CAUDAL), WITH IMAGING GUIDANCE (WRVU 1.8) Danyel Rodriguez MD [facility] [place] [address] [facility] Referral ID Status Reason Start Date Expiration Date Visits Re quested Visits Authorized [id number] 1 1 Encounter Details Date Type Department Care Team (Latest Contact Info) Description 04/11/2024 3:07 PM EST - 04/11/2024 3:56 PM [facility] Hospital Encounter [place] [address] Danyel Rodriguez MD [facility] [place] [address] Spinal stenosis of lumbar region with neurogenic claudication Discharge Disposition: Home Social History Tobacco Use [...] date: 04/11/2024 Attending Physician: Danyel Rodriguez MD [facility] PREPROCEDURE HISTORY AND [...] Fellow Physician [facility] [place] [address] / documented in this encounter Miscellaneous Notes * Op Note - Danyel Rodriguez MD - 04/11/2024 3:37 PM EST Pain Management Operative Note Patient Name: Mallorie Burgess : [id number] MR#: [id number] Case Date: 04/11/2024 Surgeon: Surgeons and Role: [...] Attending Physician [facility] [place] [address] / CC: Dilan Hernandez MD [address] [place] [address] [place] [address] documented in this encounter Plan of Treatment Upcoming Encounters Date Type Department Care Team (Late st Contact Info) Description 07/12/2024 8:00 AM EST Hospital Encounter XRay at [address] [place] [address] Eliane Peterson APRN [facility] [place] [address] Scheduled Procedures Name Priority Associated Diagnoses Date/Ti me INJECTION, FACET JOINT, W\FLUORO, LUMBAR, 2ND LEVEL (WRVU 1) Spondylosis of lumbar region without myelopathy or radiculopathy INJECTION, FACET JOINT, W\FLUORO, LUMBAR, SINGLE (WRVU 1.52) Spondylosis of lumbar region without myelopathy or radiculopathy documented as of this encounter Procedures Procedure Name Priority Date/Time Associated Diagnosis Comments Injection Dx/Ther Sbst Intrlmnr Lmbr/Sac W/Img Gdn (28916) 04/11/2024 3:31 PM EST Spinal stenosis of [...] with neurogenic claudication documented in this encounter Active and Recently [...] MD) documented in this encounter Care Teams Link Trainer Maintenance Man Relationship Specialty Start Date End Date Dilan Hernandez MD [address] [place] [address] [place] [phone] PCP - General 04/30/10 documented as of this encounter
--- OUTSIDE RECORDS SUMMARY | 2024-07-07 20:06 | XMS_ITS | Encounter Summary ---
Author Organization [facility] Address [facility] [place] [address] Care Team Providers Care Clinical Appeals Auditor Name Role Phone Dilan Hernandez MD Primary Care Provider [phone] Encounter Details Date Type Department Care Team (Latest Contact Info) Description 04/11/2024 Travel Social History Tobacco Use Types Packs/Day [...] st Contact Info) Description 07/12/2024 8:00 AM [facility] Hospital Encounter XRay at [address] [place] [address] [address]N [facility] [place] [address] Scheduled Procedures Name Priority Associated Diagnoses Date/Ti me INJECTION, FACET JOINT, W\FLUORO, LUMBAR, 2ND LEVEL (WRVU 1) Spondylosis of lumbar region without myelopathy or radiculopathy INJECTION, FACET JOINT, W\FLUORO, LUMBAR, SINGLE (WRVU 1.52) Spondylosis of lumbar region without myelopathy or radiculopathy documented as of this encounter Visit Diagnoses Not on filedocumented in this encounter Care Teams Clinical Appeals Auditor Relationship Specialty Start Date End Date Dilan Hernandez MD [address] [place] [address] [place] [phone] PCP - General 04/30/10 documented as of this encounter
--- OUTSIDE RECORDS SUMMARY | 2024-07-07 20:06 | XMS_ITS | Encounter Summary ---
Author Organization [facility] [place] [address] Care Team Providers Care Test Carrier Name Role Phone Dilan Hernandez MD Primary Care Provider [phone] Encounter Details Date Type Department Care Team (Latest Contact Info) Description 03/30/2024 9:27 AM EDT - 03/30/2024 11:59 PM EDT Hospital En[place] [address] Chronic obstructive pulmonary disease, unspecified COPD type Discharge Disposition: Home Social History Tobacco Use Types Packs/Day Years Used Date Smoking Tobacco: Every Day Cigarettes Smokeless Tobacco: Never Alcohol Use Standard Drinks/Week Comments Yes 7 (1 standard drink = 0.6 oz pur e alcohol) 1 drink a day [facility] Inpatient Questions Answer Date [...] Weds, Fri). 39 tablet 1 03/30/2024 05/10/2024 traMADoL (Ultram) 50 mg tablet Take 50 mg by mouth every 6 hours as needed for Pain. Takes once a day 04/07/2024 celecoxib (CeleBREX) 200 mg Capsule daily. 09/25/2020 04/07/2024 UNABLE TO FIND 3 times daily. Med Name: *Restivin for Restless Leg Syndrome* 10/31/202 4 MAGNESIUM ORAL Take by mouth daily. *[place] Liquid form* 04/07/2024 documented as of this encounter Plan of Treatment Upcoming Encounters Date Type Department Care Team (Late st Contact Info) Description 07/12/2024 8:00 AM [facility] Hospital Encounter XRay at [address] [place] [address] Eliane Peterson APRN [facility] [place] [address] Scheduled Procedures Name Priority Associated Diagnoses Date/Ti me INJECTION, FACET JOINT, W\FLUORO, LUMBAR, 2ND LEVEL (WRVU 1) Spondylosis of lumbar region without myelopathy or radiculopathy INJECTION, FACET JOINT, W\FLUORO, LUMBAR, SINGLE (WRVU 1.52) Spondylosis of lumbar region without myelopathy or radiculopathy documented as of this encounter Procedures Procedure Name Priority Date/Time Associated Diagnosis Comments COMMON PULMONARY FUNCTION TEST Routine 03/30/2024 9:40 AM EDT Chronic obstructive pulmonary disease, unspecified COPD type documented in this encounter Results * Common Pulmonary Function Test (03/30/2024 9:40 AM EDT) FVC Actual Pre-BD 1.66 L COMPAS PFT FVC Pre-BD % of Predicted 73 % COMPAS PFT FVC Predicted 2.26 L COMPAS PFT FVC Lower Limits of Normal 1.64 L COMPAS PFT FVC Pre-BD Z-Score -1.58 COMPAS PFT FEV1 Actual Pre-BD 0.95 L COMPAS PFT FEV1 Pre-BD % of Predicted 54 % COMPAS PFT FEV1 Predicted 1.77 L COMPAS PFT FEV1 Lower Limits of Normal 1.28 L COMPAS PFT FEV1 Pre-BD Z-Score -2.7 COMPAS PFT FEV1 / FVC Actual Pre-BD 57 % COMPAS PFT FEV1/FVC Pre-BD Z-Score -2.49 COMPAS PFT PKJ62-44 Actual Pre-BD 0.36 % COMPAS PFT UKV07-88 Predicted 1.58 % COMPAS PFT APG59-51 Pre-BD % of Predicted 23 % COMPAS PFT [id number] Pre-BD Z-Score -2.66 COMPAS PFT DLCO Hb Actual Pre-BD 8.09 mL/min/mmHg COMPAS PFT DLCO Hb Pre-BD % of Predicted 50 % COMPAS PFT DLCO Hb Predicted 16.24 mL/min/mmHg COMPAS PFT DLCO Hb Pre-BD Z-Score -3.79 COMPAS PFT DLCO [facility] ACT PRE-BD 8.20 mL/min/mmHg COMPAS PFT DLCO [facility] PRE-BD % of PRED 50 % COMPAS PFT DLCO [facility] Predicted 16.24 mL/min/mmHg COMPAS PFT DLCO [facility] PRE-BD Z-SCORE -3.73 COMPAS PFT Narrative COMPAS PFT - 03/30/2024 9:40 AM EDT FINDINGS: FEV1 and FEV1/VC are reduced, FVC is normal. Diffusion capacity not adjusted for hemoglobin is reduced. IMPRESSION: Spirometry demonstrates moderately severe (FEV1 50 to 59%) obstruction. Moderate reduction in diffusing capacity (DLCO 40 to 60%). Obstruction combined with a reduced diffusion capacity suggests emphysema. Procedure Note Zita He MD - 03/30/2024 FINDINGS: FEV1 and FEV1/VC are reduced, FVC is normal. Diffusion capacitynot adjusted for hemoglobin is reduced. IMPRESSION: Spirometry demonstrates moderately severe (FEV1 50 to 59%)obstruction. Moderate reduction in diffusing capacity (DLCO 40 to 60%). Obstruction combinedwith a reduced diffusion capacity suggests emphysema. Yo Brunson Jr., MD PFT ORDERABLES COMPAS PFT documented in this encounter Visit Diagnoses Diagnosis Chronic obstructive pulmonary disease, unspecified COPD type documented in this encounter Care Teams Test Carrier Relationship Specialty Start Date End Date Dilan Hernandez MD [address] [place] [address] [place] [address] PCP - General 04/30/10 documented as of this encounter
--- OUTSIDE RECORDS SUMMARY | 2024-07-07 20:06 | XMS_ITS | Encounter Summary ---
Author Organization [facility] [place] [address] Care Team Providers Care Pullman Car Repairer Name Role Phone Dilan Hernandez MD Primary Care Provider [phone] Encounter Details Date Type Department Care Team (Late st Contact Info) Description 06/29/2024 Telephone Pulmonology at [facility] [place] [address] Steff Castro Social History Tobacco Use Types Packs/Day Years Used Date Smoking Tobacco: Every Day Cigarettes Smokeless Tobacco: Never Alcohol Use Standard Drinks/Week Comments Yes 7 (1 standard drink = 0.6 oz pur e alcohol) 1 drink a day [facility] Inpatient Questions Answer Date Recorded Does Anyone [...] st Contact Info) Description 07/12/2024 8:00 AM [facility] Hospital Encounter XRay at [address] [place] [address] [place] [address] Scheduled Procedures Name Priority Associated Diagnoses Date/Ti me INJECTION, FACET JOINT, W\FLUORO, LUMBAR, 2ND LEVEL (WRVU 1) Spondylosis of lumbar region without myelopathy or radiculopathy INJECTION, FACET JOINT, W\FLUORO, LUMBAR, SINGLE (WRVU 1.52) Spondylosis of lumbar region without myelopathy or radiculopathy documented as of this encounter Visit Diagnoses Not on filedocumented in this encounter Care Teams Pullman Car Repairer Relationship Specialty Start Date End Date Dilan Hernandez MD [address] [place] [address] [place] [phone] PCP - General 04/30/10 documented as of this encounter
--- OUTSIDE RECORDS SUMMARY | 2024-07-07 20:06 | XMS_ITS | Encounter Summary ---
Author Organization [facility] [place] [address] Care Team Providers Care Edge Trimmer Mechanic Name Role Phone Dilan Hernandez MD Primary Care Provider [phone] Encounter Details Date Type Department Care Team (Late st Contact Info) Description 03/16/2024 Telephone Pulmonology at [facility] [place] [address] Steff Castro Social History Tobacco Use Types Packs/Day Years Used Date Smoking Tobacco: Every Day Cigarettes Smokeless Tobacco: Never Alcohol Use Standard Drinks/Week Comments Yes 7 (1 standard drink = 0.6 oz pur e alcohol) 1 drink a day [facility] Inpatient Questions Answer Date Recorded Does Anyone [...] st Contact Info) Description 07/12/2024 8:00 AM [facility] Hospital Encounter XRay at [address] [place] [address] [place] [address] Scheduled Procedures Name Priority Associated Diagnoses Date/Ti me INJECTION, FACET JOINT, W\FLUORO, LUMBAR, 2ND LEVEL (WRVU 1) Spondylosis of lumbar region without myelopathy or radiculopathy INJECTION, FACET JOINT, W\FLUORO, LUMBAR, SINGLE (WRVU 1.52) Spondylosis of lumbar region without myelopathy or radiculopathy documented as of this encounter Visit Diagnoses Not on filedocumented in this encounter Care Teams Edge Trimmer Mechanic Relationship Specialty Start Date End Date Dilan Hernandez MD [address] [place] [address] [place] [phone] PCP - General 04/30/10 documented as of this encounter
--- OUTSIDE RECORDS SUMMARY | 2024-07-07 20:06 | XMS_ITS | Encounter Summary ---
[facility] Organization [facility] Address [facility] [place] [address] Care Team Providers Care Mold Construction Supervisor Name Role Phone Dilan Hernandez MD Primary Care Provider [phone] Encounter Details Date Type Department Care Team (Late st Contact Info) Description 06/27/2024 3:00 PM EST Office [place] [address] Zita He MD [facility] [place] [address] Chronic obstructive pulmonary disease, unspecified COPD type; Cigarette nicotine dependence without complication; Supplemental oxygen dependent Social History Tobacco Use Types Packs/Day Years Used Date Smoking Tobacco: Every Day Cigarettes Smokeless Tobacco: Never Alcohol Use Standard Drinks/Week Comments Yes 7 (1 standard drink = 0.6 oz pur e alcohol) 1 drink a day [facility] Inpatient Questions Answer Date Recorded Does [...] Mass Index 25.45 06/27/2024 2:52 PM EST documented in this encounter Patient Instructions * Patient Instructions* Zita He MD - 06/27/2024 3:00 PM EST For your COPD I'd recommend we restart the azithromycin Dvcfza-Cnrtfmiyu-Ouypdu. Let me know when you are ready to do this. documented in this encounter Progress Notes * Zita He MD - 06/27/2024 3:00 PM EST Images from the original note were not included. [facility] Section of Pulmonary and Critical Care Medicine Outpatient Consultation Date of Encounter: 06/27/2024 Reason for Evaluation: Ms. Mallorie Burgess returns to the pulmonary clinic for follow-up of COPD. I independently interviewed the patient, have examined the patient and have reviewed available records. Dear Dilan Hernandez MD, As you know, Mallorie Burgess is a 74 y.o. female with COPD, nocturnal oxygen dependence, tobacco use, previously evaluated in pulmonary clinic March 2024. At her last visit I recommended a trial of anti-inflammatory azithromycin, and planned to continue the low dose (10 mg) daily prednisone she was on, and continued her breztri inhaler. She reports she was seen in the ED a couple days ago due to fatigue and low saturations (low 80s athome), diagnosed with a COPD exacerbation and hypokalemia, and started again on a prednisone burst.She feels she is more open and is clearing her chest congestion well now on prednisone. She repots her breathing overall is much better this year, she is now able to do some gardening, wash her truck, and get around better. She has lost about 45 lbs intentionally, and thinks this is helping her breathing. She is taking torsemide which helps keep her fluid down. She tells me she is not taking the azithromycin, can't remember why she stopped it or whether it was helping after her last visit. She stopped taking the prednisone daily, again not sure when she stopped it. She is still using oxygen at night, 3 or 3.5 depending on how she feels, consistent with this. She uses her portable oxygen concentrator occasionally at home, but it sounds like she is mostly using it when her Sp2 is already > 90, with uncertain benefit. Has only had low saturations recently this past week. She is on keflex daily for UTI ppx. She stopped using the nicotine patches. Is smoking 1.5 ppd, thinking about cutting down some. As you will recall regarding her COPD: Spring/fall allergies can trigger more wheezing and cough. She has had issues with volume overload in the past, responds to torsemide. She has a dog. She denies any additional inhalational exposures. 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 Current Medications at Start of Encounter: Outpatient Medications Prior to Visit Medication Sig Dispense Refill ondansetron (Zofran) 8 mg tablet Take 8 mg by mouth every 6 hours as needed for Nausea. ibuprofen (Advil) 200 mg tablet Take 400 mg by mouth. ipratropium-albuteroL (Duoneb) 0.5 mg-3 mg(2.5 mg base)/3 mL Solution for Nebulization USE 1 AMPULEIN NEBULIZER EVERY 4 HOURS NEEDED FOR SHORTNESS OF BREATH FOR WHEEZING omeprazole (PriLOSEC) [address] capsule Take 40 mg by mouth daily. torsemide (Demadex) 10 mg tablet Take 2 tablets by mouth daily. spironolactone (Aldactone) 25 mg tablet Take 0.5 tablets by mouth daily. Ozempic 0.25 mg or 0.5 mg (2 mg/3 mL) Pen Injector Inject 0.25 mg subcutaneously once a week. Now 1.0 mg plhpkvrvms-ujssybvynmqckl-arvjhtjspy (Breztri Aerosphere) 160-9-4.8 mcg/actuation inhaler (HFA) 2 puffs, Inhale, BID, rinse mouth and throat after use, # 5.9 g, 0 Refill(s) cephALEXin (Keflex) 250 mg capsule Take 1 capsule by mouth Daily at Noon. ferrous sulfate 324 mg (65 mg iron) [...] morning and two at night per patient metFORMIN (Glucophage) 500 mg tablet Take 500 mg by mouth 2 times daily (with meals). No facility-administered medications prior to visit. Review of Systems: A focused ROS was completed and was positive as noted in HPI, and otherwise negative. Physical Examination: BP 108/72 Pulse 75 Temp 35.9 ??C (96.7 ??F) (Temporal) Resp 16 Ht 148.6 cm (4' 10.5) Wt 56.2 kg (123 lb 14.4 oz) SpO2 92% BMI 25.45 kg/m?? NAD, conversational, MMM, neck supple RRR, no murmur, normal WOB at rest, decreased air movement but not tight, slight exp wheeze, no edema, she is ambulatory Pulmonary Function Test Results: Date FVC FEV1 Ratio TLC RV RV/TLC ERV DLCO 6MWT 03/30/2024 1.66 L (73% pred) 0.95 L (54% pred) 57 50% pred I personally reviewed flow-volume loops and other tests. Results are most consistent with moderately severe airflow obstruction, moderately impaired diffusing capacity. PFTs 06/2024 - deferred due to acute illness Labs, Microbiology and Imaging: I personally reviewed relevant laboratory, microbiologic and radiology results which were significant for: CXR 02/08/2024: hyperexpanded, elevated left hemidiaphragm CTA chest 01/27/2024: negative for PE; there is emphysema Immunization History: Flu: has had 2023 flu vaccine COVID-19: has had primary series and some boosters Pneumonia: believes she had locally in 2023 Impression and Recommendations: Mallorie Burgess is a 74 y/o woman with COPD, ongoing tobacco use, nocturnal hypoxia on home nocturnal oxygen,with ongoing chronic dyspnea and multiple COPD exacerbations requiring prednisone over the past year, consistent with GOLD stage C COPD. Symptoms have improved with triple inhaled therapy (currently breztri) and intermittent prednisone bursts for acute exacerbations, but we have yet to determine which adjunctive therapies might provide the most benefit for her respiratory health. She remains on triple therapy with breztri. She can't remember whether a trial of chronic azithromycin for anti-inflammatory effect helped in the fall, but she is open to retrying this later this year (after she completes some surgery evaluation). If effective I am hopeful it will reduce the frequency of her respiratory exacerbations. She is no longer on chronic low dose prednisone, and it isn't clear how much benefit that provided.We may revisit this option down the road if she continues to have very frequent flares. COPD action plan includes prednisone 40 mg daily x 5 days, consider azithromycin burst x 5 days if not yet taking chronically. We again discussed the extent to which ongoing cigarette smoking may be contributing to her respiratory symptoms, and she is interested in cutting down. She is open to MAT and should use a higher intensity patch (the 21 mcg patch) for this. She I currently using supplemental oxygen at night (as prescribed) and PRN during the day for dyspnea. We can reassess need for oxygen in the future after we optimize her respiratory status. Given she is recovering from an exacerbation we will hold off on oxygen assessment today. We are hoping to assess baseline lung function with repeat spirometry and diffusing capacity, and will try to do this in a couple weeks at [facility] near her home since it was deferred today for acute illness. We discussed lung cancer screening in general terms and she will think about this. She has a chest CT with decent visualization of lungs in January 2024, and I'd recommend screening next in January 2025. She thinks she has done screening before though we do not have these records. Summary Recommendations: - complete current prednisone burst - continue breztri 2 puffs twice daily - can restart trial of chronic azithromycin 500 mg three times weekly when she is ready; she shouldlet us know - continue albuterol MDI PRN, duonebs PRN - COPD action plan: Prednisone 40 x 5 days, addition of azithromycin burst if not on chronic azithromycin at time of flare - tobacco cessation advised, nicotine 21 mcg patch rx sent - continue nocturnal oxygen at this time, on 3LPM, will plan to reassess once optimized - lung cancer screening CT due January 2025 if she chooses to do this testing - ashley/DLCO ordered to be done at [facility] in 2+ weeks Follow-up with in-office visit in 6 months Thank you for involving me in Ms. Burgess's care. Please feel free to contact me with any further questions or concerns. MDM 4 I provided medical care services that are part of ongoing care for the patient's serious/complex condition. This visit included 3 minutes of tobacco cessation counseling. Zita He MD [facility] PULMONOLOGY AT [facility] [address] Dept: [phone] Loc: [phone] documented in this encounter Plan of Treatment Upcoming Encounters Date Type Department Care Team (Late st Contact Info) Description 07/12/2024 8:00 AM EST Hospital Encounter XRay at [address] [place] [address] [place] [address] Scheduled Orders Name Type Priority Associated Diagnoses Orde r Schedule Common Pulmonary Function Test PFT Routine Chronic obstructive pulmonary disease, unspecified COPD type Expected: 07/11/2024, Expires: 01/10/2025 Scheduled Procedures Name Priority Associated Diagnoses Date/Ti me INJECTION, FACET JOINT, W\FLUORO, LUMBAR, 2ND LEVEL (WRVU 1) Spondylosis of lumbar region without myelopathy or radiculopathy INJECTION, FACET JOINT, W\FLUORO, LUMBAR, SINGLE (WRVU 1.52) Spondylosis of lumbar region without myelopathy or radiculopathy documented as of this encounter Visit Diagnoses Diagnosis Chronic obstructive pulmonary disease, unspecified COPD type Cigarette nicotine dependence without complication Tobacco use disorder Supplemental oxygen dependent Dependence on supplemental oxygen documented in this encounter Care Teams Mold Construction Supervisor Relationship Specialty Start Date End Date Lippmann, Dilan, MD [address] [place] [address] [place] [phone] PCP - General 04/30/10 documented as of this encounter
--- OUTSIDE RECORDS SUMMARY | 2024-07-07 20:06 | XMS_ITS | Encounter Summary ---
Author Organization [facility] [place] [address] Care Team Providers Care Electric Relay Tester Name Role Phone Dilan Hernandez MD Primary Care Provider [phone] Encounter Details Date Type Department Care Team (Late st Contact Info) Description 03/09/2024 Telephone [facility] [place] [address] None None Social History Tobacco Use Types Packs/Day Years Used Date Smoking Tobacco: Every Day Cigarettes Smokeless Tobacco: Never Alcohol Use Standard Drinks/Week Comments Yes 7 (1 standard drink = 0.6 oz pur e alcohol) 1 drink a day [facility] Inpatient Questions Answer Date Recorded Does [...] encounter Miscellaneous Notes * Telephone Encounter - Becky Blake - 03/09/2024 11:45 AM EDT CLINIC PHONE COVERAGE: Reason for Call: Returning a Call PCP: Dilan Hernandez MD / Treating provider: Tyler Message: Gwendolyn called and stated they are returning a call from the department to schedule a lumbarepidural steroid injection. Please call to assist. Did display card writer attempt to reach out to the clinic?: Yes Caller Name (If other than patient): Mallorie Burgess Relationship to Patient (if other than self): Patient Callback number: [phone] Best time you are available: Any Route Per Clinic Coverage Page documented in this encounter Plan of Treatment Upcoming Encounters Date Type Department Care Team (Late st Contact Info) Description 07/12/2024 8:00 AM [facility] Encounter XRay at [address] [place] [address] [place] [address] Scheduled Procedures Name Priority Associated Diagnoses Date/Ti me INJECTION, FACET JOINT, W\FLUORO, LUMBAR, 2ND LEVEL (WRVU 1) Spondylosis of lumbar region without myelopathy or radiculopathy INJECTION, FACET JOINT, W\FLUORO, LUMBAR, SINGLE (WRVU 1.52) Spondylosis of lumbar region without myelopathy or radiculopathy documented as of this encounter Visit Diagnoses Not on filedocumented in this encounter Care Teams Electric Relay Tester Relationship Specialty Start Date End Date Dilan Hernandez MD [address] [place] [address] [place] [address] PCP - General 04/30/10 documented as of this encounter
--- OUTSIDE RECORDS SUMMARY | 2024-07-07 20:06 | XMS_ITS | Encounter Summary ---
Author Organization [facility] Address [facility] [place] [address] Care Team Providers Care Corporate Buyer Name Role Phone Dilan Hernandez MD Primary Care Provider [phone] Encounter Details Date Type Department Care Team (Latest Contact Info) Description 02/08/2024 Travel Social History Tobacco Use Types Packs/Day [...] st Contact Info) Description 07/12/2024 8:00 AM [facility] Hospital Encounter XRay at [address] [place] [address] Eliane Peterson APRN [facility] [place] [address] Scheduled Procedures Name Priority Associated Diagnoses Date/Ti me INJECTION, FACET JOINT, W\FLUORO, LUMBAR, 2ND LEVEL (WRVU 1) Spondylosis of lumbar region without myelopathy or radiculopathy INJECTION, FACET JOINT, W\FLUORO, LUMBAR, SINGLE (WRVU 1.52) Spondylosis of lumbar region without myelopathy or radiculopathy documented as of this encounter Visit Diagnoses Not on filedocumented in this encounter Care Teams Corporate Buyer Relationship Specialty Start Date End Date Dilan Hernandez MD [address] [place] [address] [place] [id number] PCP - General 04/30/10 documented as of this encounter
--- OUTSIDE RECORDS SUMMARY | 2024-07-07 20:07 | XMS_ITS | Encounter Summary ---
[facility] [place] [address] Care Team Providers Care Schedule Planning Manager Name Role Phone Dilan Hernandez MD Primary Care Provider Encounter Details Date Type Department Care Team (Late st Contact Info) Description 12/29/2023 [place] [phone] Suki Olvera Social History Tobacco Use Types Packs/Day Years Used Date Smoking Tobacco: Every Day Cigarettes Smokeless Tobacco: Never Alcohol Use Standard Drinks/Week Comments Yes 1 (1 standard drink = 0.6 oz pur e alcohol) 1 drink a day Sex and Gender Information Value Date Recorded Sex Assigned at Not on file Gender Identity Not on file Sexual Orientation Straight 09/21/2020 3: 34 PM EDT documented as of this encounter Miscellaneous Notes * Telephone Encounter - Suki Olvera - 12/29/2023 8:59 AM EDT Mallorie Burgess [id number] Diagnosis/Indication: bloating and screening Please review patient chart to confirm if previous Endoscopy procedure was performed within system. If yes, take note of Anesthesia type used. If previous procedure found, and with MAC/propofol Anesthesia support was used, schedule this procedure with Anesthesia and skip the Anesthesia portion of questions. If not performed within system, not performed at all, or performed with IVCS, ask Anesthesia questions. SCHEDULING QUESTIONS (ask all patient these questions) Have you ever had a/an Upper Endoscopy & Colonoscopy before? Unknown If yes, did you have any problems with the procedure (such as waking up during the procedure, pain or difficulties afterwards, etc.)? No What type of sedation was used: None (ASK ONLY FOR COLONOSCOPY PROCEDURES) Are you aware, or have you ever been told that you had a poor prep or failed prep with a previous colonoscopy? No If yes, assign the Extended MiraLAX Prep (ASK ONLY FOR COLONOSCOPY PROCEDURES) Do you have an ongoing history of constipation? (E.g., hard stools, >2 days without a bowel movement, straining or difficulty passing stool) No If yes, assign the Extended MiraLAX Prep Do you take any blood thinners or have you been diagnosed with a bleeding disorder that increases your risk of bleeding with procedures? No Do you have a Pacemaker or Defibrillator device? If yes, send pool message to Cardiology with patient information and date or procedure. No Do you have diabetes? If yes, call PCP/managing provider to discuss use of prep and any questions or concerns related to. No If yes, assign the Extended MiraLAX Prep Do you take any iron supplements or vitamins that contain iron? Yes IRON Do you have a preference regarding the gender of your provider? No ANESTHESIA QUESTIONS (YES to any question, please book with Anesthesia support) Have you ever been diagnosed with Pulmonary Hypertension and/or Congential Heart Disease? No Have you been diagnosed with A-Fib (atrial fibrillation) that is NOT being well controled with medications? No Have you ever had an allergic or adverse reaction to Fentanyl or Versed? No Have you had a problem with sedation or anesthesia? (Waking up during procedure, extreme confusion after, etc.) No Do you have a diagnosis of Obstructive Sleep Apnea that requires the use of a c- pap machine? No Do you use an oxygen tank at home? Yes at night Do you use a rescue inhaler more than twice per day? (COPD, severe asthma) Yes Do you experience breathing problems when you lay flat for a period of time? No Do you regularly take prescription opioid pain medications on a daily basis? (Includes oxycodone, Percocet, Suboxone, methadone, etc.) Yes tramadol If yes, assign the Extended MiraLAX Prep SCHEDULING CONFIRMATIONS: Please note any and all parts of your conversation with the patient here. We offer all new patients an opportunity to have an appointment with one of our associate care providers to learn more about your upcoming procedure, ask questions and get answers. These appointmentsare offered via telehealth. Would you be interested in scheduling this appointment? (Only ask if NEW referral patient; skip this question if [facility] provider ordered the procedure.) No Is there any other information or concerns you would like to us to share with your care team in relation to your upcoming scheduled procedure? No You must have a responsible democrat who will drive you to your procedure, stay on campus for the entire duration of your procedure, and drive you home from your procedure. Who will likely be your driver material handler for the procedure? *Please Verify the height and weight, and adjust if height and/or weight have changed* Estimated body mass index is 34.07 kg/m?? as calculated from the following: Height as of 12/16/23: 154.9 cm (5' 1). Weight as of 12/16/23: 81.8 kg (180 lb 4.8 oz). Age:73 y.o. documented in this encounter Plan of Treatment Upcoming Encounters Date Type Department Care Team (Late st Contact Info) Description 07/12/2024 8:00 AM [facility] Hospital Encounter XRay at [address] [place] [address] [place] [address] Scheduled Procedures Name Priority Associated Diagnoses Date/Ti me INJECTION, FACET JOINT, W\FLUORO, LUMBAR, 2ND LEVEL (WRVU 1) Spondylosis of lumbar region without myelopathy or radiculopathy INJECTION, FACET JOINT, W\FLUORO, LUMBAR, SINGLE (WRVU 1.52) Spondylosis of lumbar region without myelopathy or radiculopathy documented as of this encounter Visit Diagnoses Not on filedocumented in this encounter Care Teams Schedule Planning Manager Relationship Specialty Start Date End Date Dilan Hernandez MD [address] [place] [address] [place] [phone] PCP - General 04/30/10 documented as of this encounter
--- OUTSIDE RECORDS SUMMARY | 2024-07-07 20:07 | XMS_ITS | Encounter Summary ---
Author Organization [facility] [place] [address] Care Team Providers Care Optical Glass Wet Inspector Name Role Phone Dilan Hernandez MD Primary Care Provider [phone] Reason for Visit * Reason Onset Date Comments Other 01/11/2024 Increased SOB Encounter Details Date Type Department Care Team (Late st Contact Info) Description 01/11/2024 Telephone [place] [address] Tania Winn RN Other (Increased SOB ) Social History Tobacco Use Types Packs/Day Years [...] Miscellaneous Notes * Telephone Encounter - Tania Winn RN - 01/11/2024 3:02 PM EDT I have called Pt in regards to c/o potential COPD exacerbation. Pt explains over the past ~couple days they have experienced the following s/s: Increased non productive cough Increased mucous production, thicker than normal (this is baseline for pt) Mucous presents as clear in color, normally clear at baseline Increased chest constriction, SOB and increased wheezing Increased oxygen demands, currently using ~3-4L continuous flow during the daytime, normally uses ~2L only at HS at baseline Current oxygen saturation ~92% while on 2L O2 at rest, HR ~98 Confirms she may have increased swelling in bilateral calves, hasn't taken her torsemide in ~3-4 days, she states she was instructed to only take when needed Still smoking, smoked about 12-15 cigarettes today so far Pt does not think she has any infection needing ABX at this time Pt is no longer taking prednisone 10 mg QD, she has elected to stop taking a maintenance dose stating I dont like taking prednisone and I dont want to be on it everyday Pt denies any recent COVID exposure, fever/chills/sweats, chest pain, n/v/d, n/t in LE I have revived with Pt in detail their pulmonary medications as follows: Increase Duoneb used to four to six times daily, , practice freire coughing after nebulized treatments and use Use Duoneb before maintenance medications Breztri-2 puffs BID Practice daily weight for fluid overload protocol Take torsemide now and everyday moving forward Come up with a plan for smoking cessation, pt states Ill think about it I have reviewed Pts sick plan as follows: Prednisone 40 mg x5D (pt clearly instructed to take full dose at the same time and not to break up throughout the day) Uses [facility] in [facility] I have instructed the Pt seek ED, local urgent medical care, or PCP for further evaluation if signsand symptoms worsen. Pt has given verbal consent to the plan of care moving forward. Tania Winn RN Department of Pulmonary 5C, [facility] / Pager: [phone] * Telephone Encounter - Tania Winn RN - 01/11/2024 2:23 PM EDT Copied from CRM #[id number]. Topic: Specialty Dept CRMs - Triage >> Jan 11, 2024 9:17 AM Faye Simon wrote: Triage Message Specialist: Boy Relationship (if other than patient-full name): self Symptom: Shortness of Breath no dizziness or lightheaded Has patient experienced symptom before yes If patient has experienced symptom before, when was the last time this occurred unsure Is patient currently having symptom yes When did symptom begin unknown Additional Comments: looking to be seen this week or if she should go to the ER- provider switch has been requested documented in this encounter Plan of Treatment Upcoming Encounters Date Type Department Care Team (Late st Contact Info) Description 07/12/2024 8:00 AM [facility] Hospital Encounter XRay at [address] [place] [address] [place] [address] Scheduled Procedures Name Priority Associated Diagnoses Date/Ti me INJECTION, FACET JOINT, W\FLUORO, LUMBAR, 2ND LEVEL (WRVU 1) Spondylosis of lumbar region without myelopathy or radiculopathy INJECTION, FACET JOINT, W\FLUORO, LUMBAR, SINGLE (WRVU 1.52) Spondylosis of lumbar region without myelopathy or radiculopathy documented as of this encounter Visit Diagnoses Not on filedocumented in this encounter Care Teams Optical Glass Wet Inspector Relationship Specialty Start Date End Date Dilan Hernandez MD [address] [place] [address] [place] [address] PCP - General 04/30/10 documented as of this encounter
--- OUTSIDE RECORDS SUMMARY | 2024-07-07 20:07 | XMS_ITS | Encounter Summary ---
Author Organization [facility] [place] [address] Care Team Providers Care Emu Farmer Name Role Phone Dilan Hernandez MD Primary Care Provider [phone] Encounter Details Date Type Department Care Team (Late st Contact Info) Description 01/12/2024 Notes Only Pulmonology at [facility] [place] [address] Tania Winn RN Social History Tobacco Use Types Packs/Day Years [...] as of this encounter Progress Notes * Tania Winn RN - 01/12/2024 12:29 PM EDT I have called [facility] and obtained the following: Chest CT from 08/2023 CXR from 01/03/2024 Transthoracic ECHO from ~2023 (this will be available for review in the ISCV per Cardiology) Final written reports may either be with images or will be scanned into the MEDIA tab Tania Winn RN Department of Pulmonary 5C, [facility] / Pager: [phone] documented in this encounter Plan of Treatment Upcoming Encounters Date Type Department Care Team (Late st Contact Info) Description 07/12/2024 8:00 AM [facility] Hospital Encounter XRay at [address] [place] [address] [place] [address] Scheduled Procedures Name Priority Associated Diagnoses Date/Ti me INJECTION, FACET JOINT, W\FLUORO, LUMBAR, 2ND LEVEL (WRVU 1) Spondylosis of lumbar region without myelopathy or radiculopathy INJECTION, FACET JOINT, W\FLUORO, LUMBAR, SINGLE (WRVU 1.52) Spondylosis of lumbar region without myelopathy or radiculopathy documented as of this encounter Visit Diagnoses Not on filedocumented in this encounter Care Teams Emu Farmer Relationship Specialty Start Date End Date Dilan Hernandez MD [address] [place] [address] [place] [address] PCP - General 04/30/10 documented as of this encounter
--- OUTSIDE RECORDS SUMMARY | 2024-07-07 20:07 | XMS_ITS | Encounter Summary ---
Author Organization [facility] [place] [address] Care Team Providers Care Physician Recruiter Name Role Phone Dilan Hernandez MD Primary Care Provider [phone] Encounter Details Date Type Department Care Team (Late Contact Info) Description 01/03/2024 Interpretation Only Radiology Library at [facility] [place] [address] Nino Ayala MD [address] [place] [address] [place] [address] Social History Tobacco Use Types Packs/Day Years [...] Encounters Date Type Department Care Team (Late Contact Info) Description 07/12/2024 8:00 AM EST Hospital Encounter XRay at [address] [place] [address] Eliane Peterson APRN [facility] [place] [address] Scheduled Procedures Name Priority Associated Diagnoses Date/Ti me INJECTION, FACET JOINT, W\FLUORO, LUMBAR, 2ND LEVEL (WRVU 1) Spondylosis of lumbar region without myelopathy or radiculopathy INJECTION, FACET JOINT, W\FLUORO, LUMBAR, SINGLE (WRVU 1.52) Spondylosis of lumbar region without myelopathy or radiculopathy documented as of this encounter Procedures Procedure Name Priority Date/Time Associated Diagnosis Comments FILM LIBRARY STORAGE ONLY DX CHEST Routine 01/03/2024 12:00 AM EDT documented in this encounter Results * Film Library- Storage Only DX Chest (01/03/2024 12:00 AM EDT) 01/12/2024 12:2 3 PM EDT Narrative [facility] - 01/12/2024 12:23 PM EDT This exam is auto-finalizing. It's purpose is for storage only. Nino Ayala MD IMG FILM LIBRARY ORD ERABLES [place], [place] documented in this encounter Visit Diagnoses Not on filedocumented in this encounter Care Teams Physician Recruiter Relationship Specialty Start Date End Date Dilan Hernandez MD [address] [place] [address] [place] [address] PCP - General 04/30/10 documented as of this encounter
--- OUTSIDE RECORDS SUMMARY | 2024-07-07 20:07 | XMS_ITS | Encounter Summary ---
Author Organization [facility] [place] [address] Care Team Providers Care Outside Medical Sales Representative Name Role Phone Dilan Hernandez MD Primary Care Provider [phone] Encounter Details Date Type Department Care Team (Late st Contact Info) Description 12/30/2023 [place] [address] Kimberly Dimas RN Social History Tobacco Use Types Packs/Day [...] encounter Miscellaneous Notes * Telephone Encounter - Kimberly Dimas RN - 12/30/2023 4:58 PM EDT Received call from [employer] image library notifying us that pt did not have any images from them. ALIA Mullins, RN Pulmonary 5C Clinic Pager: [phone] * Telephone Encounter - Kimberly Dimas RN - 12/30/2023 3:51 PM EDT Copied from CRM #[id number]. Topic: Specialty Dept CRMs - Generic Call >> Dec 29, 2023 9:49 AM Jessenia Poole wrote: Specialist: Relationship (if other than patient-full name): Patient Reason for Call: Patient would like to know if has reviewed her results and would like to know what the next steps are. Please call to advise. Faxed requests to [facility] and [facility] to request for prior PFTs, CXR, chest CT, echo and blood work for thepast 3-5 years. Requested that the records be faxed to [phone] and images be pushed in our system. Will call pt to notify her we are awaiting records. ALIA Mullins, RN Pulmonary 5C Clinic Pager: [phone] documented in this encounter Plan of Treatment Upcoming Encounters Date Type Department Care Team (Late st Contact Info) Description 07/12/2024 8:00 AM [facility] Hospital Encounter XRay at [address] [place] [address] Eliane Peterson, [place] [address] Scheduled Procedures Name Priority Associated Diagnoses Date/Ti me INJECTION, FACET JOINT, W\FLUORO, LUMBAR, 2ND LEVEL (WRVU 1) Spondylosis of lumbar region without myelopathy or radiculopathy INJECTION, FACET JOINT, W\FLUORO, LUMBAR, SINGLE (WRVU 1.52) Spondylosis of lumbar region without myelopathy or radiculopathy documented as of this encounter Visit Diagnoses Not on filedocumented in this encounter Care Teams Outside Medical Sales Representative Relationship Specialty Start Date End Date Dilan Hernandez MD [address] [place] [address] [place] [address] PCP - General 04/30/10 documented as of this encounter
--- OUTSIDE RECORDS SUMMARY | 2024-07-07 20:07 | XMS_ITS | Encounter Summary ---
Author Organization [facility] [place] [address] Care Team Providers Care Bartacker Name Role Phone Dilan Hernandez MD Primary Care Provider [phone] Encounter Details Date Type Department Care Team (Late st Contact Info) Description 01/03/2024 Ancillary Procedure Radiology Library at [facility] [address] Nino Ayala MD [address] [place] [address] [place] [address] Social History Tobacco Use Types Packs/Day Years [...] 8:00 AM EST Hospital Encounter XRay at [address] [place] [address] Eliane Peterson APRN [facility] [place] [address] Scheduled Procedures Name Priority Associated Diagnoses Date/Ti [...] EDT) 01/12/2024 12:2 3 PM EDT Narrative [facility] - 01/12/2024 12:23 PM EDT This exam is auto-finalizing. It's purpose is for storage only. Nino Ayala MD IMG FILM LIBRARY ORD ERABLES [place], [place] documented in this encounter Visit Diagnoses Not on filedocumented in this encounter Care Teams Bartacker Relationship Specialty Start Date End Date Dilan Hernandez MD [address] [place] [address] [place] [address] PCP - General 04/30/10 documented as of this encounter
--- OUTSIDE RECORDS SUMMARY | 2024-07-07 20:07 | XMS_ITS | Encounter Summary ---
Author Organization [facility] Address [facility] [place] [address] Care Team Providers Care Leasing Property Manager Name Role Phone Dilan Hernandez MD Primary Care Provider [phone] Reason for Visit * Reason Onset Date Comments Follow-up 02/04/[address] [facility] hosp discharge for CHF Encounter Details Date Type Department Care Team (Late st Contact Info) Description 02/04/2024 [place] [phone] Suki Zaidi CMA Follow-up (Two week call post hosp discharge for CHF) Social History Tobacco Use Types Packs/Day Years Used Date Smoking Tobacco: Every Day Cigarettes Smokeless Tobacco: Never Alcohol Use Standard Drinks/Week Comments Yes 1 (1 standard drink = 0.6 oz pur e alcohol) 1 drink a day [facility] IP[facility] Inpatient Questions Answer Date Recorded Does Anyone Try to Keep You From Having Contact with Others or Doing Things Outside Your Home? no 01/26/2024 Feels Threatened by Someone no 01/07 Feels Unsafe at Home or Work/School no 01/26/2024 Physical Signs of Abuse Present no 01/26/2024 Sex and Gender Information Value Date Recorded Sex Assigned at Not on file Gender Identity Not on file Sexual Orientation Straight 09/21/2020 3: 34 PM EDT documented as of this encounter Miscellaneous Notes * Telephone Encounter - Suki Zaidi CMA - 02/05/2024 10:49 AM EDT Unable to reach patient after several attempts. * Telephone Encounter - Suki Zaidi CMA - 02/04/2024 12:00 PM EDT Called patient, no answer. Will try again later. * Telephone Encounter - Suki Zaidi CMA - 02/04/2024 10:48 AM EDT LM for patient. Will try calling again later. documented in this encounter Plan of Treatment Upcoming Encounters Date Type Department Care Team (Late st Contact Info) Description 07/12/2024 8:00 AM [facility] Hospital Encounter XRay at [address] [place] [address] [place] [address] Scheduled Procedures Name Priority Associated Diagnoses Date/Ti me INJECTION, FACET JOINT, W\FLUORO, LUMBAR, 2ND LEVEL (WRVU 1) Spondylosis of lumbar region without myelopathy or radiculopathy INJECTION, FACET JOINT, W\FLUORO, LUMBAR, SINGLE (WRVU 1.52) Spondylosis of lumbar region without myelopathy or radiculopathy documented as of this encounter Visit Diagnoses Not on filedocumented in this encounter Care Teams Leasing Property Manager Relationship Specialty Start Date End Date Dilan Hernandez MD [address] [place] [address] [place] [phone] PCP - General 04/30/10 documented as of this encounter
--- OUTSIDE RECORDS SUMMARY | 2024-07-07 20:07 | XMS_ITS | Encounter Summary ---
Author Organization [facility] Address [facility] [place] [address] Care Team Providers Care Airplane Patrol Pilot Name Role Phone Dilan Hernandez MD Primary Care Provider [phone] Encounter Details Date Type Department Care Team (Late st Contact Info) Description 01/25/2024 Orders Only Hospitalist at [facility] [place] [address] Jessica Brito MD [facility] [place] [address] Social History Tobacco Use Types Packs/Day Years Used Date Smoking Tobacco: Every Day Cigarettes Smokeless Tobacco: Never Alcohol Use Standard Drinks/Week Comments Yes 1 (1 standard drink = 0.6 oz pur e alcohol) 1 drink a day [facility] Inpatient Questions Answer Date Recorded [...] 8:00 AM EST Hospital Encounter XRay at [address] [place] [address] Eliane Peterson, [place] [address] Scheduled Procedures Name Priority Associated Diagnoses Date/Ti me INJECTION, FACET JOINT, W\FLUORO, LUMBAR, 2ND LEVEL (WRVU 1) Spondylosis of lumbar region without myelopathy or radiculopathy INJECTION, FACET JOINT, W\FLUORO, LUMBAR, SINGLE (WRVU 1.52) Spondylosis of lumbar region without myelopathy or radiculopathy documented as of this encounter Visit Diagnoses Not on filedocumented in this encounter Care Teams Airplane Patrol Pilot Relationship Specialty Start Date End Date Dilan Hernandez MD [address] [place] [address] [place] [address] PCP - General 04/30/10 documented as of this encounter
--- OUTSIDE RECORDS SUMMARY | 2024-07-07 20:07 | XMS_ITS | Encounter Summary ---
Author Organization [facility] [place] [address] Care Team Providers Care Telephoner Name Role Phone Dilan Hernandez MD Primary Care Provider [phone] Encounter Details Date Type Department Care Team (Late st Contact Info) Description 01/14/2024 Telephone [place] [phone] Leticia Lomeli, RN Social History Tobacco Use Types Packs/Day Years Used Date Smoking Tobacco: Every Day Cigarettes Smokeless Tobacco: Never Alcohol Use Standard Drinks/Week Comments Yes 1 (1 standard drink = 0.6 oz pur e alcohol) 1 drink a day [facility] Inpatient Questions Answer Date Recorded Does Anyone Try to Keep You From Having Contact with Others or Doing Things Outside Your Home? no 01/15/2024 Feels Threatened by Someone no 02/2024 Feels Unsafe at Home or Work/School no 01/15/2024 Physical Signs of Abuse Present no 01/15/2024 Sex and Gender Information Value Date Recorded Sex Assigned at Not on file Gender Identity Not on file Sexual Orientation Straight 09/21/2020 3: 34 PM EDT documented as of this encounter Miscellaneous Notes * Telephone Encounter - Leticia Lomeli RN - 01/14/2024 12:11 PM EDT I spoke with Dr. He directly. She has not seen this patient yet and Dr. rBunson is away this week. Based on her chart review, she feels this needs to be addressed by patient's PCP or if patient's PCP cannot see her, then she should be evaluated in the ED. It sounds like her symptoms are a result of fluid overload and not necessarily stemming from a pulmonary issue. I have explained this to patient and patient verbalized understanding. She has a call into her PCP but if they cannot see her shewill go to the ED. Patient will call back with any additional concerns. * Telephone Encounter - Leticia Lomeli RN - 01/14/2024 8:42 AM EDT Copied from [facility] #[id number]. Topic: Specialty Dept CRMs - Triage >> Jan 14, 2024 8:22 AM Noy Kumari wrote: Triage Message Specialist: Zita He MD Relationship (if other than patient-full name): Mallorie Burgess Symptom: Continued water retention, shortness of breath, stomach bloating Has patient experienced symptom before yes If patient has experienced symptom before, when was the last time this occurred ongoing Is patient currently having symptom yes When did symptom begin ongoing Additional Comments: Patient states furosemide has helped however she is down a couple of pounds inthe evening and back up 3-4 pounds in the morning. Her stomach is bloated as if she were 9 months , heart rate goes up to 100 and has shortness of breath when just trying to put clothes on. Returned call to patient. Patient states she has been struggling for a while but feels things are gradually getting worse. Patient reports calling our clinic a few days ago (see 01/10 encounter) regarding similar symptoms but has not seen any improvement since then. Patient states she is now taking her Torsemide 10mg once daily. She felt that this was helping yesterday but today she feels like her s ymptoms are worse again. The torsemide is prescribed by her PCP. She reports feeling very bloated and feels her HR is higher then normal. She notes her SpO2 to be anywhere form 93-96% and her HR to be in the low 100's. She states that she is only supposed to wear oxygen at night but has been havingto wear 3L the majority of the time. She notes SOB even while talking on the phone. She denies chest pain. She reports swelling in her ankles and legs which is why she was originally prescribed the torsemide. Patient is currently taking prednisone 40mg x5 days. I have sent an urgent message to Dr. He for review. I have advised patient to go to the ED if hersymptoms continue to worsen. I have also advised patient to contact her PCP and clinical data coordinator regarding these concerns. documented in this encounter Plan of Treatment Upcoming Encounters Date Type Department Care Team (Late st Contact Info) Description 07/12/2024 8:00 AM [facility] Hospital Encounter XRay at [address] [place] [address] [place] [address] Scheduled Procedures Name Priority Associated Diagnoses Date/Ti me INJECTION, FACET JOINT, W\FLUORO, LUMBAR, 2ND LEVEL (WRVU 1) Spondylosis of lumbar region without myelopathy or radiculopathy INJECTION, FACET JOINT, W\FLUORO, LUMBAR, SINGLE (WRVU 1.52) Spondylosis of lumbar region without myelopathy or radiculopathy documented as of this encounter Visit Diagnoses Not on filedocumented in this encounter Care Teams Telephoner Relationship Specialty Start Date End Date Dilan Hernandez MD [address] [place] [address] [place] [phone] PCP - General 04/30/10 documented as of this encounter
--- OUTSIDE RECORDS SUMMARY | 2024-07-07 20:07 | XMS_ITS | Encounter Summary ---
Author Organization [facility] [place] [address] Care Team Providers Care Credit Administrator Name Role Phone Dilan Hernandez MD Primary Care Provider [phone] Reason for Visit * Reason Comments Chest Pain Encounter Details Date Type Department Care Team (Late st Contact Info) Description 01/27/2024 12:33 AM EDT - 01/27/2024 5:31 AM EDT [place] [id number] Urinary tract infection without hematuria, site unspecified Discharge Disposition: Home Social History Tobacco Use [...] Sign Reading Time Taken Comments Blood Pressure 128/88 01/27/2024 4:00 AM EDT Pulse 98 01/27/2024 4:00 AM EDT Temperature 37 ??C (98.6 ??F) 01/27/2024 4:00 AM EDT Respiratory Rate 20 01/27/2024 4:00 AM EDT Oxygen Saturation 92% 01/27/2024 4:00 AM EDT Inhaled Oxygen Concentration - - Weight - - Height - - Body Mass Index - - documented in this encounter Discharge Instructions * Discharge Instructions* Migdalia Block APRN - 01/27/2024 5:16 AM EDT You were evaluated in the emergency department for intermittent chest tightness, shortness of breath and fatigue. Overall your workup is reassuring with no signs or symptoms concerning for an acute cardiac or pulmonary cause for your symptoms. Your blood work did show an elevated white count and a urinalysis is significant for a urinary tract infection. Given your elevated white count as well as new symptoms and no previous urinalysis to compare to I do recommend treating you for urinary tract infection. Please take the course of antibiotics as directed and keep your currently scheduled PCP appointment for Thursday. Please make sure you stay well-hydrated and get plenty of rest. Please returnthe emergency department for any new or worsening symptoms. * Attachments The following attachments cannot be sent through Care Everywhere. * UTI (Urinary Tract Infection): Female (Surinamese) documented in this encounter Medications at Time [...] once a week. Now 1.0 mg 04/27/2023 budesonide-glycopyrr olate-formoterol (Breztri Aerosphere) 160-9-4.8 mcg/actuation inhaler (HFA) 2 [...] morning and two at night per patient sulfamethoxazole-tri methoprim DS (Bactrim DS) 800-160 mg tablet Take 1 tablet by mouth 2 times daily for 7 days. 14 tablet 01/28/2024 02/04/2024 sulfamethoxazole-tri methoprim DS (Bactrim DS) 800-160 mg tablet Take 1 tablet by mouth 2 times daily for 7 days. 14 tablet 01/28/2024 01/28/2024 nitrofurantoin (Macrobid) 100 mg capsule Take 1 capsule by mouth 2 times daily. 20 tablet 01/27/2024 01/28/2024 traMADoL (Ultram) 50 mg tablet Take 50 mg by mouth every 6 hours as needed for Pain. Takes once a day 04/07/2024 predniSONE (Deltasone) 10 mg tabletIndications:Ch ronic obstructive pulmonary disease, unspecified COPD type Take 1 tablet by mouth daily. 30 tablet 3 12/07/2023 02/08/2024 celecoxib (CeleBREX) 200 mg Capsule daily. 09/25/2020 04/07/2024 UNABLE TO FIND 3 times daily. Med Name: *Restivin for Restless Leg Syndrome* MAGNESIUM ORAL Take by mouth daily. *[place] Liquid form* 04/07/2024 omeprazole (PriLOSEC) 20 mg Capsule, Delayed Release(E.C.) Take 40 mg by mouth daily. 03/30/2024 documented as of this encounter ED Notes * Nataliia Robles RN - 01/27/2024 5:24 AM EDT Discharged in improved and stable condition. Cannula removed, procedure tolerated, and completenesschecked. AVS given. Encouraged to ask questions and seek clarifications. Reviewed doctor's advise with the the pt. Reiterated follow-up to ED if symptoms persist or worsen. * Sameera Cruz RN - 01/27/2024 2:19 AM EDT IV team paged - pt requires ultrasound IV. Paged per provider request. RN x2 unable to obtain * Migdalia Block APRN - 01/27/2024 12:51 AM EDT Images from the original note were not included. ED Provider Note HPI: Mallorie Burgess is a 73 y.o. female with history of COPD, active tobacco use, GERD, anxiety, hyponatremia, pud who presents to the Emergency Department for evaluation of shortness of breath, and increased chest pain with exertion that has been progressively worsening since 01/20/2024. Patient states that she also is experiencing lower extremity weakness. Patient denies any lower extremity pain or swelling. Patient states that she had a recent hospitalization for a severe COPD exacerbation and wastold that she has stiff heart syndrome and is concerned that she may have been overdoing it and that she stressed her heart out too much. Patient denies any fevers, chills, nausea, vomiting, diarrhea. Patient states that she is having increased difficulty breathing and feels as though there is aband around my chest this is worse with coughing which patient states is her baseline cough with no increased production of sputum. Patient states that she also has mid abdominal pain that radiates upward however feels different than her baseline GERD. Patient says she has some lightheadedness butdenies any dizziness. Patient denies any symptoms. Patient denies any other associated or constitutional symptoms. Patient is any aggravating or relieving factors. ROS: as per HPI Vitals: ED Triage Vitals [01/26/244] BP: 127/72 Heart Rate: 95 Resp: 20 Temp: 36.4 ??C (97.5 ??F) Temp src: Tympanic SpO2: 92 % O2 Device: RA O2 Flow Rate (L/min): n/a Physical Exam: Physical Exam Vitals and nursing note reviewed. Constitutional: General: She is not in acute distress. Appearance: She is obese. She is not toxic-appearing. HENT: Head: Normocephalic and atraumatic. Mouth/Throat: Mouth: Mucous membranes are moist. Cardiovascular: Rate and Rhythm: Normal rate and regular rhythm. Pulses: Normal pulses. Heart sounds: Normal heart sounds. Pulmonary: Effort: No respiratory distress. Breath sounds: No stridor. Wheezing present. No rhonchi or rales. Chest: Chest wall: No tenderness. Abdominal: Palpations: Abdomen is soft. Musculoskeletal: General: Normal range of motion. Cervical back: Normal range of motion. Skin: General: Skin is warm and dry. Neurological: Mental Status: She is oriented to person, place, and time. Psychiatric: Mood and Affect: Mood normal. Behavior: Behavior normal. Thought Content: Thought content normal. Judgment: Judgment normal. Differential Diagnosis of Presenting Problem: COPD exacerbation, infectious process, viral syndrome, ACS ED Course: I have reviewed labs and imaging, images and available reports, and they are significant for: Patient's laboratory values are significant for WBC of 17.53 with left shift, BUN 27, alk phos 113,UA significant for UTI. COVID-negative, lactate 2.2, troponins flat 05/21/2013. BNP 62. EKG negative for ACS CTA chest for PE shows no pulmonary embolism or acute thoracic process. I reviewed the EKG tracing: Rhythm: NSR Rate: 90 Relevant findings: No acute ST or T wave abnormalities, normal intervals, when compared with previous tracing on 01/15/2024 PACs are no longer present otherwise unchanged Recent Results (from the past 72 hour(s)) EKG 12 Lead Result Value Ref Range Ventricular rate 90 BPM Atrial Rate 90 BPM P-R Interval 148 ms QRS Duration 84 ms Q-T Interval 352 ms QTC Calculated (Bezet) 430 ms Calculated P [place] 51 degrees Calculated R [place] 43 degrees Calculated T [place] 54 degrees INTERPRETATION Normal sinus rhythm Cannot rule out Anterior infarct , age undetermined Abnormal ECG When compared with ECG of 15-JAN-2024 12:21, Premature atrial complexes are no longer Present Basic Metabolic Panel Result Value Ref Range Glucose 133 65 - 199 mg/dL Blood Urea Nitrogen 27 (H) 8 - 18 mg/dL Creatinine 0.99 0.70 - 1.20 mg/dL Sodium 139 135 - 145 mMol/L Potassium 4.2 3.5 - 5.0 mMol/L Chloride 98 98 - 107 mMol/L Carbon Dioxide 28 22 - 31 mMol/L Anion Gap 13 5 - 15 mMol/L Calcium 9.7 8.5 - 10.5 mg/dL Est Glomerular Filtration Rate - Female 61 mL/min/1.73 m?? CBC (with Diff) Result Value Ref Range White Blood Cell 17.53 (H) 4.00 - 9.50 x10(3)/mcL Red Blood Cell 4.24 4.00 - 5.21 x10(6)/mcL Hemoglobin 12.3 11.7 - 15.5 g/dL Hematocrit 37.9 35.7 - 45.8 % Mean Cell Volume 89.4 82.6 - 94.4 fL Mean Cell Hemoglobin 29.0 27.1 - 32.0 pg Mean Cell Hemoglobin Concentration 32.5 31.7 - 35.0 g/dL Platelet 391 (H) 145 - 357 x10(3)/mcL Mean Platelet Volume 8.8 7.6 - 12.9 fL RDW Standard Deviation 50.4 (H) 37.0 - 46.0 fL RDW coefficient of variation 15.3 (H) 11.5 - 14.1 % NRBC% auto 0.0 % NRBC Absolute 0.00 0.00 - 0.00 x10(3)/mcL Neutrophil % 78.4 % Neutrophil Absolute 13.74 (H) 1.70 - 6.10 x10(3)/mcL Lymph % 15.8 % Lymph Absolute 2.77 0.90 - 3.20 x10(3)/mcL Monocyte % 3.9 % Monocyte Absolute 0.68 0.30 - 0.90 x10(3)/mcL Eos % 0.3 % Eos Absolute 0.06 0.00 - 0.40 x10(3)/mcL Basophil % 0.3 % Baso Absolute 0.06 0.00 - 0.10 x10(3)/mcL Immature Gran % 1.3 % Immature Gran Absolute 0.22 (H) 0.00 - 0.04 x10(3)/mcL Troponin-T, High Sensitivity Result Value Ref Range Troponin-T, High Sensitivity Initial 12 <=14 ng/L pro-Brain Natriuretic Peptide Result Value Ref Range NT-proBNP 62 <=124 pg/mL Hepatic Function Panel Result Value Ref Range Albumin 4.2 3.2 - 5.2 g/dL Aspartate Aminotransferase 18 <=30 unit/L Alanine Aminotransferase 18 0 - 30 unit/L Alkaline Phosphatase 113 (H) 35 - 105 unit/L Bilirubin, Total <0.2 <=1.3 mg/dL Bilirubin, Direct <0.2 0.0 - 0.3 mg/dL Protein, Total 6.9 6.1 - 8.0 g/dL XR Chest One View Result Value Ref Range WORKSTATION ID [id number] Troponin-T, High Sensitivity 1 Hour Result Value Ref Range Troponin-T, High Sensitivity 14 <=14 ng/L Troponin-T, HS 1 hr delta COVID-19 PCR Specimen: Nasopharynx; Swab Result Value Ref Range SARS-CoV-2 RNA (Rapid) Not Detected Not Detected Blood culture Specimen: Blood, Venous Result Value Ref Range Blood Culture No Growth at 18-24 hrs. Blood culture Specimen: Blood, Venous Result Value Ref Range Blood Culture No Growth at 18-24 hrs. Lactate Whole Blood POC Result Value Ref Range Lactate, Whole Blood 2.2 0.5 - 2.2 mmol/L Troponin-T, Bob Sensitivity 3 Hour Result Value Ref Range Troponin-T, High Sensitivity 13 <=14 ng/L Troponin-T, HS 3 hr delta 1 ng/L Urinalysis with reflex Culture Specimen: Urine, Clean Catch Result Value Ref Range Glucose, Urine Dipstick Negative Negative Protein, Urine Dipstick Negative Negative Bilirubin, Urine Dipstick Negative Negative Urobilinogen, Urine Dipstick Normal Normal, 0.2 mg/dL, 1.0 mg/dL pH, Urine (dipstick) 6.5 5.0 - 8.0 Blood, Urine Dipstick Negative Negative Ketone, Urine Dipstick Negative Negative Nitrite, Urine Dipstick Positive (A) Negative Leukocytes, Urine Dipstick Small (A) Negative Specific [place] Urine Automated 1.021 1.005 - 1.030 Appearance, Urine Dipstick Clear Clear Color, Urine Dipstick Yellow Yellow, Dark Yellow Urinalysis Microscopic with Reflex to Culture Specimen: Urine, Clean Catch Result Value Ref Range Bacteria, Urine Many (A) None /HPF RBC, Urine 1 0 - 4 /HPF WBC, Urine 20 (H) 0 - 5 /HPF Squamous Epithelial Cells, Urine 1 0 - 5 /HPF Hyaline Casts, Urine 0 0 - 2 /LPF CT Angiogram Chest for Pulmonary Embolus w Contrast Result Value Ref Range WORKSTATION ID [id number] CT Angiogram Chest for Pulmonary Embolus w Contrast Final Result * No pulmonary embolism or acute thoracic process identified. * Early emphysematous changes. 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 Thank you for letting us participate in the care of this patient. If you are a health care provider and have any questions regarding this report, please contact the number below. For patients who have questions please contact the health home care scheduler that requested your imaging first. Electronically signed by: Isreal Salcedo MD, [facility] ([phone]), at 01/27/2024 4:04 AM XR Chest One View Final Result Similar subtle diffuse coarsening of interstitial markings which may reflect edema or inflammation. Thank you for letting us participate in the care of this patient. If you are a health care provider and have any questions regarding this report, please contact the number below. For patients who have questions please contact the health home care scheduler that requested your imaging first. Electronically signed by: Isreal Salcedo MD, [facility] ([phone]), at 01/26/2024 10:13 PM Assessment and Plan: 73 y.o. female with with history of COPD, active tobacco use, GERD, anxiety, hyponatremia, pud who presents to the Emergency Department for evaluation of shortness of breath, and increased chest painwith exertion that has been progressively worsening since 01/20/2024. On exam, patient appears pale and very anxious and tachypnea however is satting well on room air with overall stable vital signs and afebrile. Patient has diffuse inspiratory and expiratory wheezing with no rhonchi or rales. Regular heart rate and rhythm with no murmurs rubs or gallops. Patient's laboratory values are significant for WBC of 17.53 with left shift, BUN 27, alk phos 113,UA significant for UTI. COVID-negative, lactate 2.2, troponins flat 05/21/13. BNP 62. EKG negative for ACS CTA chest for PE shows no pulmonary embolism or acute thoracic process. TTE from 01/17/2024: Interpretation Summary Left ventricle is of normal size. Wall thickness is mildly increased. The left ventricular ejection fraction is 65% by Ny's biplane. There are no segmental wall motion abnormalities. The right ventricle is of normal size. Right ventricular systolic function is normal. Pulmonary artery hypertension could not be assessed due to inadequate tricuspid regurgitation jet. CTA rules out PE and acute infectious process. EKG and flat troponins make ACS unlikely. Characterization of patient's chest discomfort is more consistent with a pleuritis versus costochondritis patient endorses that it is worse with coughing and certain positions. Patient is still an active tobacco user and counseled patient on the importance of tobacco cessation especially given that she is having worsening COPD requiring hospitalizations. Results reviewed with patient and indicated that we will treat for urinary tract infection and give IV fluids with follow-up with her PCP. Patient statesthat she takes a daily 250 mg of Keflex as a prevention for UTI and is not having any urinary symptoms. Do not have a old UA in the system for comparison to see if this is patient's baseline. Recommended to patient that given her elevated white count and unwell feeling believe that treating possible urinary tract infection would be appropriate to which patient is agreeable. Patient is not tachycardic has stable blood pressures and has remained afebrile throughout her course. On reevaluation, samantha rollins is observed resting much more comfortably with less anxiety and is no longer tachypneic. Patient continues to have mild expiratory expiratory wheezing which I suspect is patient's baseline. Offered patient CDU admission for DuoNebs, steroids and evaluation which patient has declined. Patient states that after fluids and reassuring workup she does feel improved and states that she was just concerned about her heart. Will discharge patient home on a 5-day course of Macrobid. Patient was advised to follow-up with her PCP and to return for any new or worsening symptoms. Patient understood plan and is agreeable there to. Patient discharged home. Did this case involve critical care? No The visit findings, diagnosis, and care plan were discussed with the patient. The diagnosis and care plans discussions were outlined in the discharge instructions. The patient expressed understanding of the details of the visit, the return precautions and that she should return to the ER at any time for worsening symptoms, new symptoms, or other concerns. she agrees with thefollow- up plan. Disclaimer: Parts of this note has been produced using voice recognition software and may inherently contain errors in fountain vending mechanic. Some sounds may be transcribed incorrectly by the voice recognition software and therefore the reader is urged to use caution when interpreting this document. Migdalia Block APRN 01/28/24 0445 documented in this encounter Plan of Treatment Upcoming Encounters Date Type Department Care Team (Late st Contact Info) Description 07/12/2024 8:00 AM [facility] Hospital Encounter XRay at [address] [place] [place] [address] [place] [address] Scheduled Procedures Name Priority Associated Diagnoses Date/Ti me INJECTION, FACET JOINT, W\FLUORO, LUMBAR, 2ND LEVEL (WRVU 1) Spondylosis of lumbar region without myelopathy or radiculopathy INJECTION, FACET JOINT, W\FLUORO, LUMBAR, SINGLE (WRVU 1.52) Spondylosis of lumbar region without myelopathy or radiculopathy documented as of this encounter Procedures Procedure Name Priority Date/Time Associated Diagnosis Comments CT CHEST PULMONARY EMBOLISM W CONTRAST STAT 01/27/2024 3:46 AM EDT URINALYSIS MICROSCOPIC WITH REFLEX TO CULTURE STAT 01/27/2024 3:34 AM EDT URINALYSIS WITH REFLEX CULTURE STAT 01/27/2024 3:34 AM EDT URINE CULTURE STAT 01/27/2024 3:34 AM EDT TROPONIN-T, HIGH SENSITIVITY 3 HOUR PERFORMABLE STAT 01/27/2024 3:32 AM EDT LACTATE, WHOLE BLOOD POC Routine 01/27/2024 3:10 AM EDT BLOOD CULTURE STAT 01/27/2024 3:06 AM EDT BLOOD CULTURE STAT 01/27/2024 2:53 AM EDT TROPONIN-T, HIGH SENSITIVITY 1 HOUR PERFORMABLE STAT 01/27/2024 1:35 AM EDT RAPID COVID-19 PCR ([facility]) STAT 01/27/2024 1:35 AM EDT XR CHEST ONE VIEW STAT 01/26/2024 10: 02 PM EDT TROPONIN-T, HIGH SENSITIVITY INITIAL PERFORMABLE STAT 01/26/2024 9:49 PM EDT TROPONIN - SERIES STAT 01/26/2024 9:4 9 PM EDT CBC (WITH DIFF) STAT 01/26/2024 9:49 PM EDT PRO-BRAIN NATRIURETIC PEPTIDE STAT Add-On 01/26/2024 9:49 PM EDT HEPATIC FUNCTION PANEL STAT Add-On 01/26/2024 9:49 PM EDT BASIC METABOLIC PANEL STAT 01/26/2024 9:49 PM EDT EKG 12-LEAD STAT 01/26/2024 9:38 PM EDT documented in this encounter Results * CT Angiogram Chest for Pulmonary Embolus w Contrast (01/27/2024 3:46 AM EDT) StudyApps Signature WORKSTATION ID [id number] RAD Anatomical Region Laterality Modality Chest Computed Tomogra phy Impressions 01/27/2024 4:04 AM EDT * ??No pulmonary embolism or acute thoracic process identified. * ??Early emphysematous changes. 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 Thank you for letting us participate in the care of this patient. ??If you are a health care provider and have any questions regarding this report, please contact the number below. ??For patients who have questions please contact the health home care scheduler that requested your imaging first. ? Electronically signed by: Isreal Salcedo MD, [facility] ([phone]), at 01/27/2024 4:04 AM Narrative 01/27/2024 4:04 AM EDT EXAMINATION: CTA CHEST PULMONARY EMBOLISM W CONTRAST CLINICAL HISTORY: sob, cx pain, hx of PE TECHNIQUE: 3 mm thick axial contiguous sections were obtained through the chest via helical acquisition after the intravenous administration of contrast, 54 mL of Omnipaque 350. Thin-section reconstructions as well as coronal and sagittal MIP reformatted images were generated to aid in evaluation. COMPARISON: Chest x-ray 01/26/2024 CT chest 08/24/2023. FINDINGS: Pulmonary arteries: No pulmonary arterial filling defects. Mixing of contrast in the left main pulmonary artery. Other cardiovascular structures: Normal cardiac size. No pericardial effusion. Coronary artery calcifications. Normal course and caliber of the thoracic aorta. Atherosclerotic calcifications in aorta and its branches. Retropharyngeal course of bilateral common carotid arteries. Pulmonary parenchyma: Linear atelectasis/scarring in right upper lobe and left lower lobe. Early emphysematous changes in the lung apices. Airways: No significant findings. Pleura: No pleural effusion or pneumothorax. Lymph nodes: No lymphadenopathy. Other mediastinal structures: No significant findings. Upper abdomen: A few colonic diverticuli without acute inflammatory changes. Skeletal structures: Diffusely decreased mineralization. Mild degenerative changes in the spine. S-shaped curvature of the thoracolumbar spine. Procedure Note Lydia Salcedo MD - 01/27/2024 EXAMINATION: CTA CHEST PULMONARY EMBOLISM W CONTRAST CLINICAL HISTORY: sob, cx pain, hx of PE TECHNIQUE: 3 mm thick axial contiguous sections were obtained through thechest via helical acquisition after the intravenous administration of contrast,54 mL of Omnipaque 350. Thin-section reconstructions as well as coronal andsagittal MIP reformatted images were generated to aid in evaluation. COMPARISON: Chest x-ray 01/26/2024 CT chest 08/24/2023. FINDINGS: Pulmonary arteries: No pulmonary arterial filling defects. Mixing ofcontrast in the left main pulmonary artery. Other cardiovascular structures: Normal cardiac size. No pericardialeffusion. Coronary artery calcifications. Normal course and caliber of the thoracicaorta. Atherosclerotic calcifications in aorta and its branches. Retropharyngealcourse of bilateral common carotid arteries. Pulmonary parenchyma: Linear atelectasis/scarring in right upper lobe andleft lower lobe. Early emphysematous changes in the lung apices. Airways: No significant findings. Pleura: No pleural effusion or pneumothorax. Lymph nodes: No lymphadenopathy. Other mediastinal structures: No significant findings. Upper abdomen: A few colonic diverticuli without acute inflammatorychanges. Skeletal structures: Diffusely decreased mineralization. Milddegenerative changes in the spine. S-shaped curvature of the thoracolumbar spine. IMPRESSION * No pulmonary embolism or acute thoracic process identified. * Early emphysematous changes. * Retropharyngeal course of bilateral common carotid arteries, ananatomic variant which may be relevant if patient undergoes intubation. Thank you for letting us participate in the care of this patient. If youare a health care provider and have any questions regarding this report,please contact the number below. For patients who have questions please contactthe health home care scheduler that requested your imaging first. Migdalia Block APRN [facility] ORDERABLES * (ABNORMAL) Urine culture (01/27/2024 3:34 AM EDT) Urine Culture Greater than 100,000 cfu/ml Klebsiella aerogenes (Enterobacter aerogenes)(A) VITEK 2 METHOD 01/29/2024 8:26 AM EDT [facility] Urine URINE SPECIMEN OBTAINED BY CLEAN CATCH PROCEDURE / Unknown Non Blood Collection / Unknown 01/27/2024 3:34 AM EDT 01/27/2024 3:37 AM EDT Narrative Organism Antibiotic Method Susceptibility Klebsiella aerogenes (Enterobacter aerogenes) Cefazolin (Systemic) VITEK 2 METHOD Resistant Klebsiella aerogenes (Enterobacter aerogenes) Cefepime VITEK 2 METHOD 0.5 ug/ml: Susceptible Klebsiella aerogenes (Enterobacter aerogenes) Ceftriaxone VITEK 2 METHOD >=64.0 ug/ml: Resistant Comment:This organis m may develop resistance during therapy with 3rd generation cephalosporins (e.g. ceftri, ceftaz), particularly with prolonged durations, due to production of inducible AmpC beta-lactamase. Klebsiella aerogenes (Enterobacter aerogenes) Ciprofloxacin VITEK 2 METHOD <=0.06 ug/ml: Susceptible Klebsiella aerogenes (Enterobacter aerogenes) Ertapenem VITEK 2 METHOD 1.0 ug/ml: Intermediate Klebsiella aerogenes (Enterobacter aerogenes) Gentamicin VITEK 2 METHOD <=1.0 ug/ml: Susceptible Klebsiella aerogenes (Enterobacter aerogenes) Levofloxacin VITEK 2 METHOD <=0.12 ug/ml: Susceptible Klebsiella aerogenes (Enterobacter aerogenes) Meropenem VITEK 2 METHOD <=0.25 ug/ml: Susceptible Klebsiella aerogenes (Enterobacter aerogenes) Nitrofurantoin VITEK 2 METHOD 64.0 ug/ml: Intermediate Klebsiella aerogenes (Enterobacter aerogenes) Piperacillin/Tazobactam VITEK 2 METHOD >=128.0 ug/ml: Resistant Klebsiella aerogenes (Enterobacter aerogenes) Trimethoprim/Sulfa VITEK 2 METHOD <=20.0 ug/ml: Susceptible Migdalia Block APRN MICROBIOLOGY - GE NERAL ORDERABLES [facility] [place] [address] * (ABNORMAL) Urinalysis Microscopic with Reflex to Culture (01/27/2024 3:34 AM EDT) Bacteria, Urine Many(A) None /HPF 3:47 AM EDT [facility] RBC, Urine 1 0 - 4 /HPF 01/27/2024 3:47 AM EDT [facility] WBC, Urine 20(H) 0 - 5 /HPF 01/27/2024 3:47 AM EDT [facility] Squamous Epithelial Cells, Urine 1 0 - 5 /HPF 01/27/2024 3:47 AM EDT [facility] Hyaline Casts, Urine 0 0 - 2 /LPF 01/27/2024 3:47 AM EDT [facility] Urine URINE SPECIMEN OBTAINED BY CLEAN CATCH PROCEDURE / Unknown Non Blood Collection / Unknown 01/27/2024 3:34 AM EDT 01/27/2024 3:37 AM EDT Migdalia Block TUNE UP MECHANIC URINE ORDERABLES [facility] [place] [address] * (ABNORMAL) Urinalysis with reflex Culture (01/27/2024 3:34 AM EDT) Glucose, Urine Dipstick Negative Negative 01/27/2024 3:47 AM EDT [facility] Protein, Urine Dipstick Negative Negative 01/27/2024 3:47 AM EDT [facility] Bilirubin, Urine Dipstick Negative Negative 01/27/2024 3:47 AM EDT [facility] Comment:Clinical correlation required for positive Urine Bilirubin results as false positive may occur with some drugs and drug related products. If a false positive is suspected a serum total bilirubin should be considered if clinically indicated. Urobilinogen, Urine Dipstick Normal Normal, 0.2 mg/dL, 1.0 mg/dL 01/27/2024 3:47 AM EDT [facility] pH, Urine (dipstick) 6.5 5.0 - 8.0 01/27/2024 3:47 AM EDT [facility] Blood, Urine Dipstick Negative Negative 01/27/2024 3:47 AM EDT [facility] Ketone, Urine Dipstick Negative Negative 01/27/2024 3:47 AM EDT [facility] Nitrite, Urine Dipstick Positive(A) Negative 01/27/2024 3:47 AM EDT [facility] Leukocytes, Urine Dipstick Small(A) Negative 01/27/2024 3:47 AM EDT [facility] Specific [place] Urine Automated 1.021 1.005 - 1.030 01/27/2024 3:47 AM EDT [facility] Appearance, Urine Dipstick Clear Clear 01/27/2024 3:47 AM EDT [facility] Color, Urine Dipstick Yellow Yellow, Dark Yellow 01/27/2024 3:47 AM EDT [facility] Urine URINE SPECIMEN OBTAINED BY CLEAN CATCH PROCEDURE / Unknown Non Blood Collection / Unknown 01/27/2024 3:34 AM EDT 01/27/2024 3:37 AM EDT Migdalia Block APRN URINE ORDERABLES [facility] [place] [id number] * Troponin-T, Bob Sensitivity 3 Hour (01/27/2024 3:32 AM EDT) Pathologist [facility] Troponin-T, High Sensitivity 13 <=14 ng/L 01/27/2024 4:02 AM EDT [facility] Comment: This patient's troponin T concentration was determined using the Jennifer 5th Generation troponin T assay. According to the fourth universal definition of myocardial infarction, the term acute myocardial infarction should be used when there is acute myocardial injury with clinical evidence of acute myocardial ischemia and with detection of a rise and/or fall of cardiac troponin values with at least one value above the 99th percentile and at least one of the following: - Symptoms of myocardial ischemia; - New ischemic ECG changes; - Development of pathological Q waves; - Imaging evidence of new loss of viable myocardium or new regional wall motion ?? abnormality in a pattern consistent with an ischemic etiology; - Identification of a coronary thrombus by angiography or autopsy (not for type 2 or 3 ?? MIs) Serial measurement of troponin and the change in troponin concentration over time (delta) is crucial for the diagnosis of acute myocardial infarction. Guidance on the interpretation of the new 5th Generation Troponin T values and the delta troponin value can be found in the [facility] Test Catalog Troponin - https://one-.testcatalog.org/catalogs/565/files/05049 Reference: Fourth [place] Definition of Myocardial Infarction. Journal of the [place] [employer] 2018;72:1370-9197 Troponin-T, HS 3 hr delta 1 ng/L 01/27/2024 4:02 AM EDT [facility] Comment:The 3 hour Troponin T delta value is the absolute difference between the Troponin T concentrations of the initial and subsequent sample collected between 2 h: 45 min and 6 h following the initial collection Blood VENOUS BLOOD SPECIMEN / Unknown IP Care Team Draw / Unknown 01/27/2024 3:32 AM EDT 01/27/2024 3:36 AM EDT Evita Bryan MD CHEMISTRY ORDERABLE S [facility] [place] [address] * Lactate Whole Blood POC (01/27/2024 3:10 AM EDT) Lactate, Whole Blood 2.2 0.5 - 2.2 mmol/L 01/27/2024 3:11 AM EDT [facility] Blood VENOUS BLOOD SPECIMEN / Unknown 01/27/2024 3:10 AM EDT 01/27/2024 3:11 AM EDT Unknown POINT OF CARE TEST O RDERABLES [facility] [place] [address] * Blood culture (01/27/2024 3:06 AM EDT) Blood Culture No growth at 120 hours 02/01/2024 4:01 AM EDT [facility] Blood VENOUS BLOOD SPECIMEN / Unknown Venipuncture / Unknown 01/27/2024 3:06 AM EDT 01/27/2024 3:16 AM EDT Migdalia Block APRN MICROBIOLOGY - BL OOD ORDERABLES [facility] [place] [address] * Blood culture (01/27/2024 2:53 AM EDT) [facility] Blood Culture No growth at 120 hours 02/01/2024 4:01 AM EDT [facility] Blood VENOUS BLOOD SPECIMEN / Unknown Venipuncture / Unknown 01/27/2024 2:53 AM EDT 01/27/2024 3:16 AM EDT Migdalai Block APRN MICROBIOLOGY - BL OOD ORDERABLES Performing Organization Address City/[facility]/ZIP Co de Phone Number [facility] [place] [address] * COVID-19 PCR (01/27/2024 1:35 AM EDT) [facility] SARS-CoV-2 RNA (Rapid) Not Detected Not Detected 01/27/2024 2:46 AM EDT [facility] Swab SPECIMEN FROM NASOPHARYNGEAL STRUCTURE / Unknown 01/27/2024 1:35 AM EDT 01/27/2024 1:43 AM EDT Migdalia Block APRN MICROBIOLOGY - GE NERAL ORDERABLES Performing Organization Address City/[facility]/ZIP Co de Phone Number [facility] [place] [address] * Troponin-T, High Sensitivity 1 Hour (01/27/2024 1:35 AM EDT) [facility] Troponin-T, High Sensitivity 14 <=14 ng/L 01/27/2024 2:14 AM EDT [facility] Comment: This patient's troponin T concentration was determined using the Jennifer 5th Generation troponin T assay. According to the fourth universal definition of myocardial infarction, the term acute myocardial infarction should be used when there is acute myocardial injury with clinical evidence of acute myocardial ischemia and with detection of a rise and/or fall of cardiac troponin values with at least one value above the 99th percentile and at least one of the following: - Symptoms of myocardial ischemia; - New ischemic ECG changes; - Development of pathological Q waves; - Imaging evidence of new loss of viable myocardium or new regional wall motion ?? abnormality in a pattern consistent with an ischemic etiology; - Identification of a coronary thrombus by angiography or autopsy (not for type 2 or 3 ?? MIs) Serial measurement of troponin and the change in troponin concentration over time (delta) is crucial for the diagnosis of acute myocardial infarction. Guidance on the interpretation of the new 5th Generation Troponin T values and the delta troponin value can be found in the [facility] Test Catalog Troponin - [email or web address] [email or web address].[email or web address]/catalogs/565/files/12121 Reference: Fourth [place] Definition of Myocardial Infarction. Journal of the [place] [employer] 2018;72:6911-4836 Troponin-T, HS 1 hr delta 01/27/2024 2:14 AM EDT [facility] Comment:Delta troponin value not calculated, sample collected outside of delta calculation time limit. Blood VENOUS BLOOD SPECIMEN / Unknown Venipuncture / Unknown 01/27/2024 1:35 AM EDT 01/27/2024 1:43 AM EDT Evita Bryan MD CHEMISTRY ORDERABLE S [facility] [place] [address] * XR Chest One View (01/26/2024 10:02 PM EDT) WORKSTATION ID [id number] RAD Anatomical Region Laterality Modality Chest N/A Digital Radiogra phy Impressions 01/26/2024 10:13 PM EDT Similar subtle diffuse coarsening of interstitial markings which may reflect edema or inflammation. Thank you for letting us participate in the care of this patient. ??If you are a health care provider and have any questions regarding this report, please contact the number below. ??For patients who have questions please contact the health home care scheduler that requested your imaging first. ? Electronically signed by: Isreal Salcedo MD, [facility] ([phone]), at 01/26/2024 10:13 PM Narrative 01/26/2024 10:13 PM EDT EXAMINATION: XR CHEST ONE VIEW CLINICAL HISTORY: Chest Pain TECHNIQUE: 1 view of the chest . One image. COMPARISON: Chest x-ray 01/15/2024. FINDINGS: Left basilar linear atelectasis/scarring, unchanged. Right basilar linear atelectasis. Similar subtle diffuse coarsening of interstitial markings. No pulmonary consolidation, pleural effusion or pneumothorax. Normal trachea, mainstem bronchi, cardiomediastinal silhouette, and joe. Unchanged osseous structures. Normal upper abdomen. Procedure Note Lydia Salcedo MD - 01/26/2024 EXAMINATION: XR CHEST ONE VIEW CLINICAL HISTORY: Chest Pain TECHNIQUE: 1 view of the chest . One image. COMPARISON: Chest x-ray 01/15/2024. FINDINGS: Left basilar linear atelectasis/scarring, unchanged. Right basilarlinear atelectasis. Similar subtle diffuse coarsening of interstitial markings.No pulmonary consolidation, pleural effusion or pneumothorax. Normaltrachea, mainstem bronchi, cardiomediastinal silhouette, and joe. Unchangedosseous structures. Normal upper abdomen. IMPRESSION Similar subtle diffuse coarsening of interstitial markings which mayreflect edema or inflammation. Thank you for letting us participate in the care of this patient. If youare a health care provider and have any questions regarding this report,please contact the number below. For patients who have questions please contactthe health home care scheduler that requested your imaging first. Evita Bryan MD IMG DX ORDERABLES * (ABNORMAL) Hepatic Function Panel (01/26/2024 9:49 PM EDT) Pathologist [facility] Albumin 4.2 3.2 - 5.2 g/dL 01/27/2024 1:15 AM EDT [facility] Aspartate Aminotransferase 18 <=30 unit/L 01/27/2024 1:15 AM EDT [facility] Alanine Aminotransferase 18 0 - 30 unit/L 01/27/2024 1:15 AM EDT [facility] Alkaline Phosphatase 113(H) 35 - 105 unit/L 01/27/2024 1:15 AM EDT [facility] Bilirubin, Total <0.2 <=1.3 mg/dL 01/27/2024 1:15 AM EDT [facility] Bilirubin, Direct <0.2 0.0 - 0.3 mg/dL 01/27/2024 1:15 AM EDT [facility] Protein, Total 6.9 6.1 - 8.0 g/dL 01/27/2024 1:15 AM EDT [facility] Blood VENOUS BLOOD SPECIMEN / Unknown Venipuncture / Unknown 01/26/2024 9:49 PM EDT 01/26/2024 9:53 PM EDT Migdalia Block TUNE UP MECHANIC CHEMISTRY ORDERAB LES [facility] [place] [address] * pro-Brain Natriuretic Peptide (01/26/2024 9:49 PM EDT) NT-proBNP 62 <=124 pg/mL 01/27/2024 1:15 AM EDT [facility] Blood VENOUS BLOOD SPECIMEN / Unknown Venipuncture / Unknown 01/26/2024 9:49 PM EDT 01/26/2024 9:53 PM EDT Migdalia Block APRN CHEMISTRY ORDERAB LES [facility] [place] [address] * Troponin-T, High Sensitivity (01/26/2024 9:49 PM EDT) Troponin-T, High Sensitivity Initial 12 <=14 ng/L 01/26/2024 10:51 PM EDT [facility] Comment: This patient's troponin T concentration was determined using the Jennifer 5th Generation troponin T assay. The 99th percentile for Troponin T for this test is 14 ng/L for females, and 22 ng/L for males. According to the fourth universal definition of myocardial infarction, the term acute myocardial infarction should be used when there is acute myocardial injury with clinical evidence of acute myocardial ischemia and with detection of a rise and/or fall of cardiac troponin values with at least one value above the 99th percentile and at least one of the following: - Symptoms of myocardial ischemia; - New ischemic ECG changes; - Development of pathological Q waves; - Imaging evidence of new loss of viable myocardium or new regional wall motion ?? abnormality in a pattern consistent with an ischemic etiology; - Identification of a coronary thrombus by angiography or autopsy (not for type 2 or 3 ?? MIs) Serial measurement of troponin and the change in troponin concentration over time (delta) is crucial for the diagnosis of acute myocardial infarction. Guidance on the interpretation of the new 5th Generation Troponin T values and the delta troponin value can be found in the [facility] Test Catalog Troponin - https://[facility]-.testcatalog.org/catalogs/565/files/39964 Reference: Fourth [place] Definition of Myocardial Infarction. Journal of the [place] [employer] 2018;72:5736-9443 Blood VENOUS BLOOD SPECIMEN / Unknown Venipuncture / Unknown 01/26/2024 9:49 PM EDT 01/26/2024 9:53 PM EDT Evita Bryan MD CHEMISTRY ORDERABLE S [facility] [place] [address] * (ABNORMAL) CBC (with Diff) (01/26/2024 9:49 PM EDT) White Blood Cell 17.53(H) 4.00 - 9.50 x10(3)/mc L 01/26/2024 10:00 PM EDT [facility] Red Blood Cell 4.24 4.00 - 5.21 x10(6)/mc L 01/26/2024 10:00 PM EDT [facility] Hemoglobin 12.3 11.7 - 15.5 g/dL 01/26/2024 10:00 PM EDT [facility] Hematocrit 37.9 35.7 - 45.8 % 01/26/2024 10:00 PM EDT [facility] Mean Cell Volume 89.4 82.6 - 94.4 fL 01/26/2024 10:00 PM EDT [facility] Mean Cell Hemoglobin 29.0 27.1 - 32.0 pg 01/26/2024 10:00 PM EDT [facility] Mean Cell Hemoglobin Concentration 32.5 31.7 - 35.0 g/dL 01/26/2024 10:00 PM EDT [facility] Platelet 391(H) 145 - 357 x10(3)/mc L 01/26/2024 10:00 PM EDT [facility] Mean Platelet Volume 8.8 7.6 - 12.9 fL 01/26/2024 10:00 PM EDT [facility] RDW Standard Deviation 50.4(H) 37.0 - 46.0 fL 01/26/2024 10:00 PM EDT [facility] RDW coefficient of variation 15.3(H) 11.5 - 14.1 % 01/26/2024 10:00 PM EDT [facility] NRBC% auto 0.0 % 01/26/2024 10:00 PM EDT [facility] NRBC Absolute 0.00 0.00 - 0.00 x10(3)/mc L 01/26/2024 10:00 PM EDT [facility] Neutrophil % 78.4 % [facility] Neutrophil Absolute (ANC) - Automated 13.74(H) 1.70 - 6.10 x10(3)/mc L 01/26/2024 10:00 PM EDT [facility] Lymph % 15.8 % 01/26/2024 10:00 PM EDT [facility] Lymph Absolute 2.77 0.90 - 3.20 x10(3)/mc L 01/26/2024 10:00 PM EDT [facility] Monocyte % 3.9 % 01/26/2024 10:00 PM EDT [facility] Monocyte Absolute 0.68 0.30 - 0.90 x10(3)/mc L 01/26/2024 10:00 [facility] Eos % 0.3 % 01/26/2024 10:00 PM [facility] Eos Absolute 0.06 0.00 - 0.40 x10(3)/mc L 01/26/2024 10:00 [facility] Basophil % 0.3 % 01/26/2024 10:00 PM T [facility] Baso Absolute 0.06 0.00 - 0.10 x10(3)/mc L 01/26/2024 10:00 PM EDT [facility] Immature Gran % 1.3 % 10:[address] [facility] Immature Gran Absolute 0.22(H) 0.00 - 0.04 x10(3)/mc L 01/26/2024 10:[address] [facility] Blood VENOUS BLOOD SPECIMEN / Unknown Venipuncture / Unknown 01/26/2024 9:49 PM EDT 01/26/2024 9:53 PM EDT Evita Bryan MD HEMATOLOGY ORDERABL ES [facility] [place] [address] * (ABNORMAL) Basic Metabolic Panel (01/26/2024 9:49 PM EDT) Glucose 133 65 - 199 mg/dL 01/26/2024 10:51 PM EDT [facility] Comment:Glucose Concentratio n >=200 mg/dL plus symptoms is consistent with Diabetes Mellitus. Blood Urea Nitrogen 27(H) 8 - 18 mg/dL 01/26/2024 10:51 PM EDT [facility] Creatinine 0.99 0.70 - 1.20 mg/dL 01/26/2024 10:51 PM [facility] Sodium 139 135 - 145 mMol/L 01/26/2024 10:51 PM [facility] Potassium 4.2 3.5 - 5.0 mMol/L 01/26/2024 10:51 PM EDT [facility] Chloride 98 98 - 107 mMol/L 01/26/2024 10:51 PM [facility] Carbon Dioxide 28 22 - 31 mMol/L 01/26/2024 10:[address] [facility] Anion Gap 13 5 - 15 mMol/L 01/26/2024 10:51 PM [facility] Calcium 9.7 8.5 - 10.5 mg/dL 01/26/2024 10:51 PM [facility] Est Glomerular Filtration Rate - Female 61 mL/min/1. 73 m?? 01/26/2024 10:51 PM [facility] Comment: This patient's estimated GFR [...] BLOOD SPECIMEN / Unknown Venipuncture / Unknown 01/26/2024 9:49 PM EDT 01/26/2024 9:53 PM EDT Evita Bryan MD CHEMISTRY ORDERABLE S [facility] [place] [address] * EKG 12 Lead (01/26/2024 9:38 PM EDT) Ventricular rate 90 BPM MUSE SYSTEM Atrial Rate 90 BPM MUSE SYSTEM P-R Interval 148 ms MUSE SYSTEM QRS Duration 84 ms MUSE SYSTEM Q-T Interval 352 ms MUSE SYSTEM QTC Calculated (Bezet) 430 ms MUSE SYSTEM Calculated P [place] 51 degrees MUSE SYSTEM Calculated R [place] 43 degrees MUSE SYSTEM Calculated T [place] 54 degrees MUSE SYSTEM INTERPRETATION Normal sinus rhythm Abnormal ECG When compared with ECG of 15-JAN-2024 12:21, Premature atrial complexes are no longer Present I personally reviewed the tracing and edited the fellows interpretation Confirmed by fellow MD Ozzy, Endy ([id number]) on 01/27/2024 6:06:40 PM Confirmed by MD Shemar, Chandrakant Hager ([id number]) on 01/30/2024 9:26:37 AM MUSE SYSTEM 01/26/2024 9:38 PM EDT 01/30/2024 9:26 AM EDT Evita Bryan MD ECG ORDERABLES Performing Organization Address City/[facility]/ZIP Co de Phone Number MUSE SYSTEM documented in this encounter Visit Diagnoses Diagnosis Urinary tract infection without hematuria, site unspecified documented in this encounter Administered Medications Inactive Administered Medications - up to 3 most recent administrations Medication Order MAR Action Action Date Dose Rate Site iohexoL (Omnipaque) (350 mg/mL) solution 0-200 mL 0-200 mL, Intravenous, ONCE PRN, 1 dose, Starting on Thu01/27/24 at 0340, Until Thu01/27/24 at 0346, Per Protocol, Warning Vesicant/Irritant Medication , Radiology Contrast, Routine Given 01/27/2024 3:46 AM EDT 54 mLs sodium chloride 0.9% 500 mL IV bolus Intravenous, ONCE, 1 dose, On Thu01/27/24 at 0045 New Bag 01/27/2024 4:15 AM EDT 999 mL/hr documented in this encounter Active and Recently Administered Medications Times are shown in EDT. Scheduled Medication Order 01/25/2024 01/26/2024 01/27/2024 sodium chloride 0.9% 500 mL IV bolus (COMPLETED) Intravenous, ONCE, 1 dose, On Thu01/27/24 at 0045 0415 (New Bag - Prov ider: Yaima Taylor RN)[id number] (Stopped - Provider: Nataliia Robles RN) PRN Medication Order 01/25/2024 01/26/2024 01/27/2024 iohexoL (Omnipaque) (350 mg/mL) solution 0-200 mL (COMPLETED) 0-200 mL, Intravenous, ONCE PRN, 1 dose, Starting on Thu01/27/24 at 0340, Until Thu01/27/24 at 0346, Per Protocol, Warning Vesicant/Irritant Medication , Radiology Contrast, Routine 0346 (Given - Provid er: Eliane Crespo) documented in this encounter Additional Health Concerns Infection Onset Date Last Indicated Resolved Time Rule Out COVID-19 01/27/2024 01/27/2024 01/27/2024 2:46 AM EDT documented as of this encounter Care Teams Credit Administrator Relationship Specialty Start Date End Date Dilan Hernandez MD [address] [place] [address] [place] [id number] PCP - General 04/30/10 documented as of this encounter
--- OUTSIDE RECORDS SUMMARY | 2024-07-07 20:07 | XMS_ITS | Encounter Summary ---
Author Organization [facility] [place] [address] Care Team Providers Care Retail Warehouse Associate Name Role Phone Dilan Hernandez MD Primary Care Provider [phone] Reason for Visit * Reason Comments Shortness of Breath * Auth/Cert (Routine) Specialty Diagnoses / Procedures Referred By Albert castaneda Referred To Contact Diagnoses Orthopnea COPD exacerbation Procedures ER IPI Admit Lalo Moore, [place] [address] [facility] Referral ID Status Reason Start Date Expiration Date Visits Re quested Visits Authorized [id number] 1 1 Encounter Details Date Type Department Care Team (Latest Contact Info) Description 01/15/2024 11:17 AM EDT - 01/19/2024 1:07 PM EDT Hospital Encounter Hematology Special Care Unit Level 1 [place] [address] Ulises Perez MD [facility] [place] [address] Carlos Cruz MD [address], [place] [address] Jessica Brito MD [facility] GENERAL [place] [address] Orthopnea; Acute hypoxic respiratory failure Discharge Disposition: Home Social History Tobacco Use Types Packs/Day Years Used Date Smoking Tobacco: Every Day Cigarettes Smokeless Tobacco: Never Tobacco Cessation:Ready to Q uit: Not Asked; Counseling Given: Not Answered Alcohol Use Standard Drinks/Week Comments Yes 1 [...] Sign Reading Time Taken Comments Blood Pressure 116/76 01/19/2024 8:01 AM EDT Pulse 102 01/17/2024 11:38 AM EDT Temperature 36.7 ??C (98.1 ??F) 01/19/2024 8:01 AM ED T Respiratory Rate 20 01/19/2024 8:01 AM EDT Oxygen Saturation 91% 01/19/2024 8:01 AM EDT Inhaled Oxygen Concentration - - Weight 79.8 kg (175 lb 14.8 oz) 01/19/2024 3:04 AM EDT Height 132.1 cm (4' 4) 01/16/2024 2:11 PM EDT Body Mass Index 45.74 01/16/2024 2:11 PM EDT documented in this encounter Discharge Summaries * Jessica Brito MD - 01/19/2024 1:07 PM EDT Images from the original note were not included. Discharge Summary Patient Name: Mallorie Burgess Patient Age: 73 y.o. Language: South African Race: White Ethnicity: Not nor Admit date: 01/15/2024 Discharge date and time: 01/19/2024 5:30 PM Attending Physician: No att. providers found Discharge Physician: Jessica Brito MD 73y.o. F presenting with several months of progressive CROWLEY, orthopnea, and weight gain which was unresponsive to multiple rounds of prednisone for presumed COPD exacerbation. Treated for acute heart failure exacerbation. Follow-up Recommendations for Providers: New diagnosis of heart failure with preserved ejection fraction, acute exacerbation: - discharged with torsemide 20mg QD (extra 20mg QD for wt gain >3lbs) - started on spironolactone 12.5mg QD - SGLT-2 inhibitor was not started d/t history of UTI's - BB deferred d/t COPD history - consider ARB for BP if indicated as an outpatient - recommend outpatient sleep study; per chart review, appears that Mallorie was evaluated by sleep medicine but never underwent a sleep study. T2DM (HgbA1c 7%): - started Metformin 500mg bid, please up-titrate - encouraged to re-start home semaglutide COPD: - follows with [facility] Pulmonology (Dr. 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 Issues afterhours and on weekends will be handled by the Hospitalist staff on-call. Discharge Diagnoses (Hospital Problems) and Secondary Diagnoses (Chronic Problems): Active Hospital Problems Diagnosis COPD exacerbation Resolved Hospital Problems No resolved problems to display. There are no active non-hospital problems to display for this patient. Operations/Major Procedures: None History of Presentation (Per H&P 01/16/2024): 73-year-old female with a past medical history notable for COPD who presents to the ED with shortness of breath. Patient states that she has been mildly short of breath for over a year but has become increasingly worsening over the last couple of weeks. She does have a history of smoking for approximately 55 years stating she smokes about a pack a day. She has seen pulmonology as an outpatient and was recently restarted on her torsemide. Patient states that she was previously on torsemide 10 mg daily but stopped about a month ago. Patient was also recently started on prednisone 20 mg daily. Patient reports that she has having increased dyspnea on exertion as well as orthopnea. Patient states that she does use home oxygen at night but has been using it throughout the day recently. She denies chest pain, abdominal pain, or recent fever. Hospital Course: #Acute heart failure exacerbation, HFpEF #Acute on chronic hypoxic respiratory failure, improved #COPD without acute exacerbation Patient's increased oxygen requirement, shortness of breath on exertion, and orthopnea initially attributed to COPD exacerbation. However, given that pt had received multiple recent courses of outpatient tx for COPD exacerbation without improvement and had increased cough or sputum production, nor fevers or chills c/w CAP or other URI, alternative ddx were considered. D-dimer was wnl (age adjusted) and risk for PE was low. Her CXR and reported weight gain indicated fluid overload. She had previously been prescribed torsemide as an outpatient but was not taking this medication. An echocardiogram in June 2022 revealedan EF of 65% with preserved global systolic function and no signs of valvular disease. Repeat echo this admission was unchanged from 06/2022; did show LV wall thickening, unable to evaluate PASP. Clinically she improved dramatically with IV diuresis and her day time O2 requirement resolved. Uses chronic O2 2-3L NC overnight which remained stable. Overall clinical picture most consistent with HFpEF: dyspnea on exertion, orthopnea, wt gain, increased O2 requirement, and volume overload on exam & by imaging/CXR. Began diuresis with a goal of 1.5L net output per day. Last dose of IV Lasixwas on 01/18. Patient was discharged on Torsemide 20MG QD with additional 20MG prn for weight gain. Began GDMT management with low-dose spironolactone. Holding SGLT2 in the setting of a history of UTI's and BB in the setting of COPD. PFTs in 02/2023 were largely within normal limits (FEV/FVC of 0.8). Continued her home Duo nebs, Symbicort, Spiriva, and supplemental O2 2L. She presented to hospital on chronic prednisone of 10MG. Given improvement in respiratory symptoms with diuresis, tapered to 5MG on discharge. #Type 2 Diabetes Mallorie was found to have a HA1c of 7.0. She previously took Semagluttide but reports stopping this medication once she was started on chronic prednisone (early December by Dr. Brunson at [facility]). Began Metformin upon discharge. #Restless leg syndrome Continued home Mirapex. #Tobacco use Started patient on Nicotine 14mg/24hr patch during hospital stay. Strongly recommended tobacco cessation; patient is in the pre-contemplative phase. #GERD #Pyloric stenosis s/p pyloroplasty, EGD, Laparoscopic bypass gastrojejunostomy Continued home Pantoprazole 40 mg. Patient endorsed abdominal swelling which was notable on exam. She is followed closely by Gastroenterology and will undergo an endoscopy in February. She also has a scheduled H2 breath test to rule of SIBO. #Anxiety Continued home Lexapro 10mg qd. #Back pain Continued home lidocaine 5% patch and Bengay cream. Vital Signs at Discharge: BP: 116/76, Heart Rate: (!) 102, Temp: 36.7 ??C (98.1 ??F), Resp: 20, BMI (Calculated): 46.2 Height: 132.1 cm (4' 4) (01/16/24 1411) Weight: 79.8 kg (175 lb 14.8 oz) (01/19/24 0304) Functional and Cognitive Status: Independent Important Studies and Lab Data: Labs: Recent Labs 01/19/24 0410 01/18/24 0438 01/17/24 0423 WBC 14.38* 12.88* 13.72* HGB 13.6 13.0 13.3 PLATELET 382* 383* 376* Recent Labs 01/19/24 0410 01/18/24 1706 01/18/24 0438 NA 132* 134* 136 K 3.8 4.3 3.4* CL 92* 93* 94* CO2 28 27 30 BUN 25* 25* 26* CREATININE 0.85 0.96 0.91 Recent Labs 01/19/24 0410 01/18/24 1706 01/18/24 0438 CALCIUM 9.9 10.0 9.6 Recent Labs 01/15/24 1337 01/15/24 1232 AST 28 -- ALT 25 -- ALKPHOS 117* -- BILITOT -- <0.2 Last 3 HgbA1C Recent Labs 01/18/24 0438 HA1C 7.0* No results for input(s): TROPONINT, CK in the last 168 hours. No results for input(s): PHART, UUH8YTJ, PO2ART, JIY1NGM in the last 168 hours. TTE 01/17/2024: Interpretation Summary Left ventricle is of normal size. Wall thickness is mildly increased. The left ventricular ejection fraction is 65% by Ny's biplane. There are no segmental wall motion abnormalities. The right ventricle is of normal size. Right ventricular systolic function is normal. Pulmonary artery hypertension could not be assessed due to inadequate tricuspid regurgitation jet. No hemodynamiclly significant valvular disease noted on this study. See report for additional findings. No comparison study is available. Results for orders placed or performed during the hospital encounter of 01/15/24 XR Chest PA & Lateral (Generic) (Exam End: 01/15/2024 12:38 PM) Result Value WORKSTATION ID [id number] Impression Mild congestive heart failure / fluid overload. Thank you for letting us participate in the care of this patient. If you are a health care provider and have any questions regarding this report, please contact the number below. For patients who have questions please contact the health personal care aide that requested your imaging first. Electronically signed by: Brandon Goldberg DO, [facility] ([phone]), at 01/15/2024 12:[address] Chest (08/24/23) PFTs Mild airflow limitation, low DLCO. Echo: 06/30/23 Pending Studies and Lab Data: None Discharge Conditions/Prognosis: Upon day of discharge, Mallorie was hemodynamically stable and endorsing improvement in her dyspnea on exertion, resolution of orthopnea. Discharge to: Home without services Updated Allergies/ADRs: No Known Allergies Immunizations Given this Hospitalization: Immunization History Administered Date(s) Administered Moderna Covid-19 Monovalent 12Yr+ (Chemistry Specialist 100mcg) 12/12/2020 Discharge Medications: Your Medications New Medications Dose Details metFORMIN 500 mg tablet Commonly known as: Glucophage Take 1 tablet by mouth 2 times daily (with meals). 500 mg Quantity: 60 tablet Refills: 1 nicotine 14 mg/24 hr Patch 24 hr Commonly known as: Nicoderm CQ Change 1 patch on the skin daily. 1 patch Quantity: 28 patch Refills: 1 spironolactone 25 mg tablet Commonly known as: Aldactone Take 0.5 tablets by mouth daily. Start taking on: January 20, 2024 12.5 mg Quantity: 60 tablet Refills: 1 Continued medications with new dosing Dose Details predniSONE 10 mg tablet Commonly known as: Deltasone Take 0.5 tablets by mouth daily. What changed: how much to take 5 mg Refills: 0 torsemide 20 mg tablet Commonly known as: Demadex Take 1 tablet by mouth daily. Take 20 mg each morning. If you gain more than 3lbs in 24H or more than 5lbs in one week, take 40mg for one day and then resume your normal dosing. Call your doctor if your weight continues to rise despite diuretics. What changed: medication strength how much to take additional instructions 20 mg Quantity: 60 tablet Refills: 1 Continued medications, unchanged Dose Details albuteroL 90 mcg/actuation inhaler (HFA) Inhale 2 puffs into the lungs every 4 hours as needed for Wheezing. Use with Spacer 2 puff Refills: 0 Breztri Aerosphere 160-9-4.8 mcg/actuation inhaler (HFA) Inhale 2 puffs into the lungs 2 times daily. Generic drug: ayjisokefu-cvtgeaeycbflia-rjpojsrdys 2 puff Refills: 0 cephALEXin 250 mg capsule Commonly known as: Keflex Take 250 mg by mouth daily. 250 mg Refills: 0 escitalopram 10 mg tablet Commonly known as: Lexapro Take 10 mg by mouth daily. 10 mg Refills: 0 ferrous sulfate 324 mg (65 mg iron) DR tablet Commonly known as: FeroSul Take 324 mg by mouth daily. 324 mg Refills: 0 ipratropium-albuteroL 0.5 mg-3 mg(2.5 mg base)/3 mL Solution for Nebulization Commonly known as: Duoneb Take 3 mLs by nebulization every 6 hours as needed (SOB, cough). 3 mL Refills: [address] capsule Commonly known as: PriLOSEC Take 40 mg by mouth daily. 40 mg Refills: 0 pramipexole 1 mg tablet Commonly known as: Mirapex Take 1.5 mg by mouth 2 times daily as needed (restless legs). 1.5 mg Refills: 0 Smoking Status at Discharge: Social History Tobacco Use Smoking Status Every Day Current packs/day: 1.50 Types: Cigarettes Smokeless Tobacco Never Instructions Given to Patient at Discharge: Patient Instructions Instructions on Discharge to Home Why you were hospitalized - You presented to the Emergency room with shortness of breath on exertion, increased need for oxygen, and with increased fluid in your legs and abdomen. You were admitted to the hospital for intravenous diuresis to remove excess fluid which we suspect is caused by mild heart failure with preserved ejection fraction. It is very important that you take your torsemide as prescribed, as you can experience increased fluid retention if you do not take the medication. You also need to track your weight every day, firstthing in the morning after you wake up and pee but before you eat or drink anything. Please see specific instructions included below -- the dose of torsemide you take each day will depend on your weight. If you are gaining weight consistently despite taking your diuretic medications, you should call your PCP's office for more instructions. We have also prescribed spironolactone, a diuretic shown to have great impact on patients with acute heart failure with preserved ejection fraction. This medication also lowers blood pressure and will regulate your potassium level. You were found to have an elevated A1c this admission consistent with a diagnosis of type 2 diabetes. We have started you on a medication called metformin which will help to control your blood sugars. Continue all your previous COPD treatments. We have reduced your prednisone from 10 to 5mg daily. Please check in with your inspector publications at [facility] if you have worsening respiratory symptoms. We strongly suggest that you quit smoking or cut back on the number of cigarettes you smoke and have prescribed you nicotine patches to assist. I strongly recommend that you have an outpatient sleep study to rule out obstructive sleep apnea. Obstructive sleep apnea when present can worsen heart failure and COPD. Call your doctor or seek medical attention if you develop the following - chest pain, shortness of breath, feeling dizzy upon standing, passing out, diarrhea, constipation lasting longer than 2 days,fevers (temperature over 100.3), chills, abdominal pain, vomiting, difficulty or discomfort when urinating, bloody or black bowel movements, or any other acute or concerning symptom. Activity level - No restrictions Diet - No change in previous diet Driving - As before hospitalization Shower/Bath - Permitted Wound Care - None Home Oxygen therapy - as before hospitalization Your Discharge Medication List Your Medications New Medications Dose Details metFORMIN 500 mg tablet Commonly known as: Glucophage Take 1 tablet by mouth 2 times daily (with meals). 500 mg Quantity: 60 tablet Refills: 1 nicotine 14 mg/24 hr Patch 24 hr Commonly known as: Nicoderm CQ Change 1 patch on the skin daily. 1 patch Quantity: 28 patch Refills: 1 spironolactone 25 mg tablet Commonly known as: Aldactone Take 0.5 tablets by mouth daily. Start taking on: January 20, 2024 12.5 mg Quantity: 60 tablet Refills: 1 Continued medications with new dosing Dose Details predniSONE 10 mg tablet Commonly known as: Deltasone Take 0.5 tablets by mouth daily. What changed: how much to take 5 mg Refills: 0 torsemide 20 mg tablet Commonly known as: Demadex Take 1 tablet by mouth daily. Take 20 mg each morning. If you gain more than 3lbs in 24H or more than 5lbs in one week, take 40mg for one day and then resume your normal dosing. Call your doctor if your weight continues to rise despite diuretics. What changed: medication strength how much to take additional instructions 20 mg Quantity: 60 tablet Refills: 1 Continued medications, unchanged Dose Details albuteroL 90 mcg/actuation inhaler (HFA) Inhale 2 puffs into the lungs every 4 hours as needed for Wheezing. Use with Spacer 2 puff Refills: 0 Breztri Aerosphere 160-9-4.8 mcg/actuation inhaler (HFA) Inhale 2 puffs into the lungs 2 times daily. Generic drug: okhrtvbhor-ovlareiuknwnco-stimmlodpf 2 puff Refills: 0 cephALEXin 250 mg capsule Commonly known as: Keflex Take 250 mg by mouth daily. 250 mg Refills: 0 escitalopram 10 mg tablet Commonly known as: Lexapro Take 10 mg by mouth daily. 10 mg Refills: 0 ferrous sulfate 324 mg (65 mg iron) DR tablet Commonly known as: FeroSul Take 324 mg by mouth daily. 324 mg Refills: 0 ipratropium-albuteroL 0.5 mg-3 mg(2.5 mg base)/3 mL Solution for Nebulization Commonly known as: Duoneb Take 3 mLs by nebulization every 6 hours as needed (SOB, cough). 3 mL Refills: [address] capsule Commonly known as: PriLOSEC Take 40 mg by mouth daily. 40 mg Refills: 0 pramipexole 1 mg tablet Commonly known as: Mirapex Take 1.5 mg by mouth 2 times daily as needed (restless legs). 1.5 mg Refills: 0 Follow-up: You are planning to call and make a PCP appointment with a new provider in [place], [place]. We would encourage you to do this LOGAN. We will also make you an appointment with your current PCP as a back-up, because it is very important for you to be seen and to have labs checked in the next 1-2 weeks with these new medications. If you are able to be seen by your new PCP's office at [place] within the next 2 weeks, you can cancel this appointment. Our medical payment poster will call Dr. Hernandez's office this morning and schedule this for you, please reach out to his office if you have not heard back from them by Sunday 01/21. You have follow up appointments with Pulmonology 04/11/2024 and an Endoscopy procedure with Gastroenterology 02/16/2024. Your Inpatient Medical Team at [facility] Name(s) of your inpatient provider(s): Jessica Brito MD Your Primary Care Provider: Dilan Hernandez MD [phone] For questions regarding this document or issues relating to this hospitalization on the Medical Service, please contact your inpatient physician through the [facility] Print Cutter . Issues afterhours and on weekends will be handled by the Hospitalist staff on-call. General Instructions HEART FAILURE ACTION PLAN For people who had congestive heart failure during hospitalization and need measures to reduce riskof recurrence. Not intended for people with advanced cirrhosis, ESRD, or major difficulty obtainingaccurate standing scale weights. Please weigh yourself first thing when you get home. Let us know if you do not have a scale that works. This will be your GOAL WEIGHT for the next 4 weeks. You may need to adjust your medication to stay within the safety range of 3 pounds above or below your GOAL WEIGHT. You GOAL WEIGHT is your weight without extra fluid on board. That is why you need to check your weight in the morning after using the bathroom, and before you eat or drink anything. Check your weight around the same time every day (Example: every morning at 7am). Each time you weigh yourself, write it down in the table below, or on a calendar. It is important to keep a written log of your weights. Also write down your DOSE of torsemide that you will take that day. This is your water pill. Doctors also call this a diuretic. Date Weight (Pounds=lbs) Dose (Milligrams=mg) Diuretics (water pills) help keep you at your goal weight. They work by getting rid of the extra fluid that builds up in your body. Sometimes you will need to take more diuretic medication if you have too much fluid. When you have too much fluid, your weight is higher, and you may notice your feet swelling, trouble breathing, or lying down flat. Other times you might need to take less diuretic medication, or not take it for a day or so, if youare losing too much fluid. When you are dehydrated your weight is lower. You may feel weak, dizzy or unwell. That is why weighing yourself every day is VERY important! If you are having difficulty with weights, not feeling well, or major symptoms please call your primary care provider right away. Some heartsymptoms include fatigue, shortness of breath, swelling in legs or abdomen. If you are within safety range (+/- [...] you get back to your GOAL WEIGHT. It will take a little time to get used to these instructions but our medical assistants will call you several times over the next 4 weeks to check in on how you are doing. Please let your primary care office know if you have to change your diuretic dose. If you ever get into the situation where these diuretic changes are not enough, then your primary care provider may make further adjustments or even refer you to [facility]'s IV diuresis clinic. Your outside doctors can also help advise you if your GOAL WEIGHT should change in a month. You may need to call 911 if you develop severe, suddenly worsening symptoms. SALT (Sodium or Na) If a person eats or drinks foods with a lot of salt (also called sodium) it can make them keep morefluid in their bodies. This makes your heart work harder, increase your blood pressure and increases your weight. Please try to eat and drink less than 2 grams (equals 2000 milligrams) of salt or sodium each day. To do this, you will need to read food and drink labels and add up all the salt/sodium. As your hospital or primary care doctor if you want help with this. They can send you to see a meat lugger (a person trained to help you with meal planning and healthy food choices) that can make mealplanning much easier. LIST OF COMMON HIGH SALT FOODS: Smoked, cured, salted or canned meat, fish or poultry including vela, cold cuts, ham, frankfurters, sausage, sardines, and anchovies. Frozen breaded meats and dinners, such as burritos and pizza. Canned entrees, such as ravioli, spam and chili. Salted nuts. Many salad dressings Beans canned with salt added. Discharge References/Attachments None documented in this encounter Discharge Instructions * Discharge Instructions* Jessica Brito MD - 01/18/2024 4:52 PM EDT HEART FAILURE ACTION PLAN For people who had congestive heart failure during hospitalization and need measures to reduce riskof recurrence. Not intended for people with advanced cirrhosis, ESRD, or major difficulty obtainingaccurate standing scale weights. Please weigh yourself first thing when you get home. Let us know if you do not have a scale that works. This will be your GOAL WEIGHT for the next 4 weeks. You may need to adjust your medication to stay within the safety range of 3 pounds above or below your GOAL WEIGHT. You GOAL WEIGHT is your weight without extra fluid on board. That is why you need to check your weight in the morning after using the bathroom, and before you eat or drink anything. Check your weight around the same time every day (Example: every morning at 7am). Each time you weigh yourself, write it down in the table below, or on a calendar. It is important to keep a written log of your weights. Also write down your DOSE of torsemide that you will take that day. This is your water pill. Doctors also call this a diuretic. Date Weight (Pounds=lbs) Dose (Milligrams=mg) Diuretics (water pills) help keep you at your goal weight. They work by getting rid of the extra fluid that builds up in your body. Sometimes you will need to take more diuretic medication if you have too much fluid. When you have too much fluid, your weight is higher, and you may notice your feet swelling, trouble breathing, or lying down flat. Other times you might need to take less diuretic medication, or not take it for a day or so, if youare losing too much fluid. When you are dehydrated your weight is lower. You may feel weak, dizzy or unwell. That is why weighing yourself every day is VERY important! If you are having difficulty with weights, not feeling well, or major symptoms please call your primary care provider right away. Some heartsymptoms include fatigue, shortness of breath, swelling in legs or abdomen. If you are within safety range (+/- [...] you get back to your GOAL WEIGHT. It will take a little time to get used to these instructions but our medical assistants will call you several times over the next 4 weeks to check in on how you are doing. Please let your primary care office know if you have to change your diuretic dose. If you ever get into the situation where these diuretic changes are not enough, then your primary care provider may make further adjustments or even refer you to [facility]'s IV diuresis clinic. Your outside doctors can also help advise you if your GOAL WEIGHT should change in a month. You may need to call 911 if you develop severe, suddenly worsening symptoms. SALT (Sodium or Na) If a person eats or drinks foods with a lot of salt (also called sodium) it can make them keep morefluid in their bodies. This makes your heart work harder, increase your blood pressure and increases your weight. Please try to eat and drink less than 2 grams (equals 2000 milligrams) of salt or sodium each day. To do this, you will need to read food and drink labels and add up all the salt/sodium. As your hospital or primary care doctor if you want help with this. They can send you to see a meat lugger (a person trained to help you with meal planning and healthy food choices) that can make mealplanning much easier. LIST OF COMMON HIGH SALT FOODS: Smoked, cured, salted or canned meat, fish or poultry including vela, cold cuts, ham, frankfurters, sausage, sardines, and anchovies. Frozen breaded meats and dinners, such as burritos and pizza. Canned entrees, such as ravioli, spam and chili. Salted nuts. Many salad dressings Beans canned with salt added. * Patient Instructions* Jessica Brito MD - 01/18/2024 4:44 PM EDT Instructions on Discharge to Home Why you were hospitalized - You presented to the Emergency room with shortness of breath on exertion, increased need for oxygen, and with increased fluid in your legs and abdomen. You were admitted to the hospital for intravenous diuresis to remove excess fluid which we suspect is caused by mild heart failure with preserved ejection fraction. It is very important that you take your torsemide as prescribed, as you can experience increased fluid retention if you do not take the medication. You also need to track your weight every day, firstthing in the morning after you wake up and pee but before you eat or drink anything. Please see specific instructions included below -- the dose of torsemide you take each day will depend on your weight. If you are gaining weight consistently despite taking your diuretic medications, you should call your PCP's office for more instructions. We have also prescribed spironolactone, a diuretic shown to have great impact on patients with acute heart failure with preserved ejection fraction. This medication also lowers blood pressure and will regulate your potassium level. You were found to have an elevated A1c this admission consistent with a diagnosis of type 2 diabetes. We have started you on a medication called metformin which will help to control your blood sugars. Continue all your previous COPD treatments. We have reduced your prednisone from 10 to 5mg daily. Please check in with your inspector publications at [facility] if you have worsening respiratory symptoms. We strongly suggest that you quit smoking or cut back on the number of cigarettes you smoke and have prescribed you nicotine patches to assist. I strongly recommend that you have an outpatient sleep study to rule out obstructive sleep apnea. Obstructive sleep apnea when present can worsen heart failure and COPD. Call your doctor or seek medical attention if you develop the following - chest pain, shortness of breath, feeling dizzy upon standing, passing out, diarrhea, constipation lasting longer than 2 days,fevers (temperature over 100.3), chills, abdominal pain, vomiting, difficulty or discomfort when urinating, bloody or black bowel movements, or any other acute or concerning symptom. Activity level - No restrictions Diet - No change in previous diet Driving - As before hospitalization Shower/Bath - Permitted Wound Care - None Home Oxygen therapy - as before hospitalization Your Discharge Medication List Your Medications New Medications Dose Details metFORMIN 500 mg tablet Commonly known as: Glucophage Take 1 tablet by mouth 2 times daily (with meals). 500 mg Quantity: 60 tablet Refills: 1 nicotine 14 mg/24 hr Patch 24 hr Commonly known as: Nicoderm CQ Change 1 patch on the skin daily. 1 patch Quantity: 28 patch Refills: 1 spironolactone 25 mg tablet Commonly known as: Aldactone Take 0.5 tablets by mouth daily. Start taking on: January 20, 2024 12.5 mg Quantity: 60 tablet Refills: 1 Continued medications with new dosing Dose Details predniSONE 10 mg tablet Commonly known as: Deltasone Take 0.5 tablets by mouth daily. What changed: how much to take 5 mg Refills: 0 torsemide 20 mg tablet Commonly known as: Demadex Take 1 tablet by mouth daily. Take 20 mg each morning. If you gain more than 3lbs in 24H or more than 5lbs in one week, take 40mg for one day and then resume your normal dosing. Call your doctor if your weight continues to rise despite diuretics. What changed: medication strength how much to take additional instructions 20 mg Quantity: 60 tablet Refills: 1 Continued medications, unchanged Dose Details albuteroL 90 mcg/actuation inhaler (HFA) Inhale 2 puffs into the lungs every 4 hours as needed for Wheezing. Use with Spacer 2 puff Refills: 0 Breztri Aerosphere 160-9-4.8 mcg/actuation inhaler (HFA) Inhale 2 puffs into the lungs 2 times daily. Generic drug: iegtbiulnf-mcfoktwhsmevgj-zkhaqdfgny 2 puff Refills: 0 cephALEXin 250 mg capsule Commonly known as: Keflex Take 250 mg by mouth daily. 250 mg Refills: 0 escitalopram 10 mg tablet Commonly known as: Lexapro Take 10 mg by mouth daily. 10 mg Refills: 0 ferrous sulfate 324 mg (65 mg iron) DR tablet Commonly known as: FeroSul Take 324 mg by mouth daily. 324 mg Refills: 0 ipratropium-albuteroL 0.5 mg-3 mg(2.5 mg base)/3 mL Solution for Nebulization Commonly known as: Duoneb Take 3 mLs by nebulization every 6 hours as needed (SOB, cough). 3 mL Refills: [address] capsule Commonly known as: PriLOSEC Take 40 mg by mouth daily. 40 mg Refills: 0 pramipexole 1 mg tablet Commonly known as: Mirapex Take 1.5 mg by mouth 2 times daily as needed (restless legs). 1.5 mg Refills: 0 Follow-up: You are planning to call and make a PCP appointment with a new provider in [place], [place]. We would encourage you to do this LOGAN. We will also make you an appointment with your current PCP as a back-up, because it is very important for you to be seen and to have labs checked in the next 1-2 weeks with these new medications. If you are able to be seen by your new PCP's office at [place] within the next 2 weeks, you can cancel this appointment. Our medical payment poster will call Dr. Hernandez's office this morning and schedule this for you, please reach out to his office if you have not heard back from them by Sunday 01/21. You have follow up appointments with Pulmonology 04/11/2024 and an Endoscopy procedure with Gastroenterology 02/16/2024. Your Inpatient Medical Team at [facility] Name(s) of your inpatient provider(s): Jessica Brito MD Your Primary Care Provider: Dilan Hernandez MD [phone] For questions regarding this document or issues relating to this hospitalization on the Medical Service, please contact your inpatient physician through the [facility] Print Cutter . Issues afterhours and on weekends will be handled by the Hospitalist staff on-call. documented in this encounter Medications at Time [...] Syndrome* MAGNESIUM ORAL Take by mouth daily. *[facility] Liquid form* 04/07/2024 omeprazole (PriLOSEC) 20 mg Capsule, Delayed Release(E.C.) Take 40 mg by mouth daily. 03/30/2024 documented as of this encounter Progress Notes * Stephani Lomas RN - 01/19/2024 1:01 PM EDT VS stable, pt very pleasant, alert and oriented x4, reports ongoing pain in right shoulder, tylenol, virginia-brooks cream, lidoderm patch given with adequate relief. Pt has been up and ambulating around room and unit, tolerating activity well. Pt with good PO intake, voiding, compliant with I&O measuring. Pt medically ready for discharge to home. AVS reviewed with patient, discussed new medications,follow-up appointments. No questions/concerns verbalized at this time. Pt left facility via wheelchair, accompanied by staff for transport to home with her sister. * Jessica Brito MD - 01/19/2024 11:29 AM EDT Hospital Medicine - Attending Day of Discharge Documentation Discharge diagnosis Active Hospital Problems Diagnosis COPD exacerbation Resolved Hospital Problems No resolved problems to display. Determined that there was not truly a COPD exacerbation, more likely this was an acute diastolic heart failure exacerbation. Secondary Issues There are no active non-hospital problems to display for this patient. I have personally seen and examined the patient and they are ready for discharge. I spent >30 minutes (Day of Discharge Code 14874) involved in the final examination of the patient, discussion of the hospital stay, instructions for continuing care to all relevant caregivers, and preparation of discharge records, prescriptions and referral forms. Plans Discharge to home Follow-up scheduled with PCP and Pulmonology Please see the Discharge Summary for complete details of any medication changes and additional plans. * Jessica Brito MD - 01/18/2024 9:32 AM EDT Images from the original note were not included. Hospital Medicine Attending Daily Progress Note Admit Date: 01/15/2024 ( Hospital Day 2 days ) Active Hospital Problems Diagnosis COPD exacerbation Resolved Hospital Problems No resolved problems to display. ASSESSMENT: 73F presenting with several months of progressive CROWLEY, orthopnea, and weight gain which was unresponsive to multiple rounds of prednisone for presumed COPD exacerbation. Treating for acute heart failure exacerbation. Net negative 1.2L over the last day s/p 80mg IV lasix x2. Weight 176# from 177#. Breathing continues to improve: no more orthopnea and no SOB at rest. Will ask her to walk today to evaluate CROWLEY. TTE showing EF 65% with some increased wall thickness, normal RV function, unable to measure PA htn. Never had a sleep study but was previously recommended to have one. Today 01/17 will redose with IV lasix 120mg this morning. Goal net negative 1.5L today & planning for conversion to oral diuretics and possibly discharge tomorrow. Continues on inhaler and neb regimen with ASSOCIATE PASTOR prednisone dose of 10mg qd. PLAN: #acute heart failure exacerbation - preserved EF on TTE from June 2023 - repeat TTE as below, largely unchanged - continue IV diuresis prn for goal net negative 1.5L daily - replete K >4, Mg >1 #chronic COPD without acute exacerbation - per last available PFTs from Feb 2023, her (FEV1)/ forced vital capacity (FVC) ratio was actually 0.82 and her FEV1 was 61% predicted - no s/sx or radiographic findings to suggest PNA or URI - per pulm consultation, recommendation to remain on 10mg prednisone qd until follow-up - continue duonebs Q4H, Symbicort, and Spiriva #GERD - home ppi #History of frequent UTIs - at home on daily cephalexin 250 mg daily #Anxiety/Depression - lexipro 10 mg daily Diet Regular diet Discharge planning Planning for tomorrow 01/18 PT/OT/Speech N/a Lines/Access PIV Johnson catheter No DVT/GI Prophylaxis Lovenox Vital/lab/FS frequency Vitals Q6H, Labs Qdaily Code status Attempt Cardiopulmonary Resuscitation - Inpatient Family updated at bedside PCP Dilan May MD [phone] Attestation IPI Certification I certify that I am a [facility] credentialed attending provider with admitting privileges and that the patient meets or has met medical necessity to require an inpatient IPI level of care meeting a minimumof two midnights or is on the [facility] inpatient only procedure list (status C) due to: monitoring of fluid status given an inability to regulate fluid balance and the need for administration or restriction of fluids Team (29/12 Coverage) #[id number] Jessica Brito MD 01/18/2024 Subjective/24hr events: - Pt seen and examined at bedside - Breathing dramatically better today, using the aerobika and bringing up small amounts sputum - orthopnea resolved, ADL easier and less limited by dyspnea, less wheezing, comfortable on RA at rest - Tolerating diet ROS: Patient denies fevers, chills, nausea/vomiting, diarrhea/constipation, cp, dysuria. Vitals: Last value Range last 24 hrs Temperature Temp: 36.7 ??C (98.1 ??F) Temp: [36.4 ??C (97.5 ??F)-37 ??C (98.6 ??F)] Heart Rate Heart Rate: (!) 102 Heart Rate: [102] Blood Pressure BP: 111/72 BP: (109-126)/(57-83) Respiratory Rate Resp: 21 Resp: [21-28] SpO2 SpO2: 92 % SpO2: [88 %-96 %] Intake/Output Summary (Last 24 hours) at 01/18/2024 0932 Last data filed at 01/18/2024 0541 Gross per 24 hour Intake 1100 ml Output 2600 ml Net -1500 ml EXAM GEN: Lying in bed comfortably, NAD, on RA, breathing comfortably, speaking in full sentences HEENT: Anicteric, no conjunctival pallor, EOMI, PERRL CVS: Distant heart sounds, RRR, S1+S2+, no m/r/g CHEST: no wheezing on exam today, normal WOB on RA ABD: Soft, ND/NT, BS+divya NEURO: AAO*3, no focal deficits. PSYCH: Normal mood and affect EXT: No edema, rigidity, tremors SKIN: No rash or open wounds LABS: Reviewed in eDH. Remarkable for the following: Recent Labs 01/18/2443701/17/2442201/15/24 1232 WBC 12.88* 13.72* 13.79* HGB 13.0 13.3 12.5 HCT 39.9 41.5 38.5 PLATELET 383* 376* 353 Recent Labs 01/18/2443701/17/24 0423 01/15/24 1337 01/15/24 1232 NA 136 137 -- 135 K 3.4* 3.6 3.9 -- CL 94* 94* -- 99 CO2 30 35* -- 25 BUN 26* 24* -- 26* CREATININE 0.91 0.89 -- 0.77 GLUCOSE 162 144 -- 171 CALCIUM 9.6 9.9 -- 9.3 Recent Labs 01/15/24 1337 01/15/24 1232 AST 28 -- ALT 25 -- ALKPHOS 117* -- BILITOT -- <0.2 MICRO: No results for input(s): URINECULTURE in the last 720 hours. No results for input(s): BLOODCX in the last 720 hours. Microbiology Results (Last 30 days) No results found for the last 720 hours. STUDIES: Results for orders placed or performed during the hospital encounter of 01/15/24 XR Chest PA & Lateral (Generic) (Exam End: 01/15/2024 12:38 PM) Result Value WORKSTATION ID [id number] Impression Mild congestive heart failure / fluid overload. Thank you for letting us participate in the care of this patient. If you are a health care provider and have any questions regarding this report, please contact the number below. For patients who have questions please contact the health personal care aide that requested your imaging first. Electronically signed by: Brandon Goldberg DO, [facility] ([phone]), at 01/15/2024 12:[address] Chest (08/24/23) PFTs Mild airflow limitation, low DLCO. Echo: 06/30/23 Medications: Scheduled Meds: sodium chloride 0.9 % (flush) 5 mL Intravenous BID enoxaparin 40 mg Subcutaneous Nightly ipratropium-albuteroL 3 mL Nebulization Q4H pantoprazole EC 40 mg Oral Daily escitalopram 10 mg Oral Daily tiotropium 2 puff Inhalation Daily budesonide-formoteroL 2 Inhalation Inhalation BID predniSONE 10 mg Oral Daily nicotine 1 patch Transdermal Daily And Patch Verification 1 patch Transdermal BID lidocaine 1 patch Transdermal Q24H cephALEXin 250 mg Oral Daily pramipexole 1.5 mg Oral BID Continuous Infusions: PRN Meds:.guaiFENesin ER, sodium chloride 0.9 % (flush), lidocaine, melatonin, polyethylene glycoL (MIRALAX) oral powder AND bisacodyL AND bisacodyl EC AND lactulose AND lactulose AND magnesium citrate AND Tap water enema, acetaminophen, ondansetron ODT OR ondansetron, nicotine polacrilex * Jessica Brito MD - 01/18/2024 6:20 AM EDT Inpatient Medicine Progress Note -- Educational use only Patient ID: Mallorie Burgess is a 73 y.o. female with a PMH notable for COPD, GERD, lumbar spondylosis,radiculopathy, pyloric stenosis (s/p pyloroplasty), excessive daytime sleepiness, prediabetes (on semaglutide), possible prior PE (s/p 3 months of eliquis) who presents with 3 month history of increased oxygen requirement, dyspnea on exertion, and orthopnea. Receiving treatment in the setting of suspected acute heart failure exacerbation. Scheduled Meds: sodium chloride 0.9 % (flush) 5 mL Intravenous BID enoxaparin 40 mg Subcutaneous Nightly ipratropium-albuteroL 3 mL Nebulization Q4H pantoprazole EC 40 mg Oral Daily escitalopram 10 mg Oral Daily tiotropium 2 puff Inhalation Daily budesonide-formoteroL 2 Inhalation Inhalation BID predniSONE 10 mg Oral Daily nicotine 1 patch Transdermal Daily And Patch Verification 1 patch Transdermal BID lidocaine 1 patch Transdermal Q24H cephALEXin 250 mg Oral Daily pramipexole 1.5 mg Oral BID Continuous Infusions: PRN Meds:.guaiFENesin ER, sodium chloride 0.9 % (flush), lidocaine, melatonin, polyethylene glycoL (MIRALAX) oral powder AND bisacodyL AND bisacodyl EC AND lactulose AND lactulose AND magnesium citrate AND Tap water enema, acetaminophen, ondansetron ODT OR ondansetron, nicotine polacrilex No current outpatient medications Interval Events/Subjective: Overnight/Nursing: - naeon This AM: - breathing drastically improved since yesterday - denies cp, n/v Physical Exam: Last value Range last 24 hrs Temperature Temp: 36.7 ??C (98.1 ??F) Temp: [36.4 ??C (97.5 ??F)-37 ??C (98.6 ??F)] Heart Rate Heart Rate: (!) 102 Heart Rate: [102] 81-105 Blood Pressure BP: 111/72 BP: (109-126)/(57-83) Respiratory Rate Resp: 21 Resp: [21-28] SpO2 SpO2: 92 % on RA SpO2: [88 %-96 %] Intake/Output Summary (Last 24 hours) at 01/18/2024 0906 Last data filed at 01/18/2024 0541 Gross per 24 hour Intake 1100 ml Output 2600 ml Net -1500 ml Weight 01/15 & 11: 177 Weight 01/17: 176 - nursing notes and vitals reviewed Constitutional: NAD HEENT: PERRL, EOMI, no oral lesions, JVP non-elevated, no stridor, trachea is midline Respiratory: increased work of breathing, improving expiratory wheezing, expiratory airflow delay, no crackles/rhonchi CV: normal rate and irregular rhythm, no murmurs/rubs/gallops GI: distended, soft, NT, BS+, no HSM Ext: peripheral pulses 2+ bilaterally, no peripheral edema Neuro: A+O x3, no focal deficits Skin/Lines: warm/dry, no rashes Labs: Last 3 wbc, hgb, hct plt Recent Labs 01/18/2443701/17/2442201/15/24 1232 WBC 12.88* 13.72* 13.79* HGB 13.0 13.3 12.5 HCT 39.9 41.5 38.5 PLATELET 383* 376* 353 Last 3 Lytes Recent Labs 01/18/2443701/17/2442201/15/24133601/15/24 1232 NA 136 137 -- 135 K 3.4* 3.6 3.9 -- CL 94* 94* -- 99 CO2 30 35* -- 25 BUN 26* 24* -- 26* CREATININE 0.91 0.89 -- 0.77 Last 3 LFTs Recent Labs 01/15/24133601/15/24 1232 AST 28 -- ALT 25 -- ALKPHOS 117* -- BILITOT -- <0.2 Last Ca, Mg, Phos Recent Labs 01/18/24 0438 CALCIUM 9.6 Last 3 Coags No results for input(s): PT, INR, PTT in the last 168 hours. Last 3 ProBNP, Trop, CK Recent Labs 01/15/24200401/15/24 1232 PROBNP 65 70 Troponin: Component Ref Range & Units 1 d ago Troponin-T, High Sensitivity <=14 ng/L 15 High Last 3 TFT No results for input(s): TSH in the last 7068 hours. Invalid input(s): T4, FT4 Last 3 Lipids No results for input(s): CHLPL, HDL, LDLCHOL, LDLDIRECT, TRIG in the last 7068 hours. Last 3 HgbA1C No results for input(s): HA1C in the last 7068 hours. Last CRP, SEDRATENo results for input(s): CRP, SEDRATE in the last 7068 hours. Component Ref Range & Units 1 d ago D-Dimer 0 - 500 FEU ng/ml 562 High Microbiology: Microbiology Results (last 7 days) No results found for the last 168 hours. Pertinent radiology/diagnostic studies: TTE 01/17/2024: Interpretation Summary Left ventricle is of normal size. Wall thickness is mildly increased. The left ventricular ejection fraction is 65% by Ny's biplane. There are no segmental wall motion abnormalities. The right ventricle is of normal size. Right ventricular systolic function is normal. Pulmonary artery hypertension could not be assessed due to inadequate tricuspid regurgitation jet. No hemodynamiclly significant valvular disease noted on this study. Venous blood gas 01/15: pH: 7.41 PCO2: 47 PO2: 57 CXR 01/15/2024: FINDINGS: There is a curvilinear band of scarring at the left lung base laterally. There is prominent interstitial markings with associated cephalization of pulmonary vasculature. There is no pleural effusion or pneumothorax. The trachea is midline. Hilar structures are within normal limits. The cardia mediastinal contours are within normal limits. The cardiac silhouette is at the upper limits of normal for size. Visualized structures within the superior abdomen inferior neck are within normal limits. There is a convex right scoliosis of the thoracolumbar spine with endplate sclerosis and osteophyte formation. IMPRESSION Mild congestive heart failure / fluid overload. EKG 01/15/2024: Sinus rhythm with Premature atrial complexes QTC 420 TTE 06/30/2023: Preserved global systolic function. Ejection fraction 65%. No valvular disease. PFTs 02/2023: FVC: 74 FEV: 61 FEV/FVC: 82 Assessment: Patient's increased oxygen requirement, shortness of breath on exertion, and orthopnea indicate fluid overload, with at the present time, an unknown etiology. Her exam is notable for bilateral wheezing in the setting of COPD. CXR impression was notable for mild congestive heart failure / fluid overload. An echocardiogram in June revealed an EF of 65% with preserved global systolic function andno signs of valvular disease. She has no cardiac history or symptoms of ACS. EKG revealed sinus irregular rhythm and no ST depressions/elevations. However, she does have predisposing risk factors to CHF 2/2 CAD, such as obesity and prediabetes. Her exam did not reveal lower extremity edema/S3 gallop (however performed after patient received diuretics and had significant UOP), her proBNP levels were within normal limits, and CXR did not reveal cardiomegaly. Her electrolytes did not reveal hyponatremia. However, given a recurrent pattern of fluid overload and need for diuretics, a repeat echocar diogram is warranted. Will continue management with Lasix and order TTE. Unlikely that she is experiencing a COPD exacerbation, given normal ABG, lack of spO2 <88 despite supple O2, lethargy/confusion, or increased use of accessory muscles of respiration. PFTs in 02/2023 were largely within normal limits (FEV/FVC of 0.8), therefore repeat PFTs are indicated in the setting of this progressive decline. In the absence of fever, chills, increased sputum production, or aradiographic findings suggesting pneumonia, URI, or bronchiectasis. D-dimer was within normal limits, therefore, low concern for a PE that is responsible for her new symptoms. Patient also endorsed a one-year history of abdominal distention. The increase in abdominal girth is remarkable on exam, but non-tender and no HSM or jaundice are apparent. Her LFTs are within normallimits. Low concern for ascites. She was recently seen by [facility] for this complaint, who recommended H breath test to rule out SIBO and an EGD to assess for possible structural abnormalities (given her history of pyloroplasty). Endorses GERD that is well-controlled with PPI. 01/18/2024: TTE unchanged from 06/2022. Clinical picture is likely CHF with preserved EF, given dypsnea on exertion, increased O2 requirement, and volume overload. Further confirmed by radiographic findings suggesting CHF. Symptoms are improving with diuretics. Secondary to diuresis, patient has yet to experience an CHRYSTAL or contraction given a Cr increase less than 0.3 or a prerenal ration of BUN/Cr. Will continue diuresis with an increase of 120MG of Lasix. Repleating K+ with an 80mg tablet givenlevel of 3.4 this AM, and the increased dose of Lasix. Will follow-up with afternoon labs. Will perform a walk test today with nursing to assess for symptom management and 02 requirement. Plan: #Acute heart failure exacerbation - 120MG lasix today - f/u BMP 2pm labs - replete K >4, Mg >1 #COPD without acute exacerbation - Duonebs q4h - symbicort and spiriva - supplemental O2 2L - continue home prednisone 10mg #Restless leg syndrome - continue home Mirapex #Tobacco use - Nicotine 14mg/24hr patch #GERD #Pyloric stenosis - Pantoprazole 40 mg - s/p pyloroplasty, EGD, Laparoscopic bypass gastrojejunostomy #Anxiety - Lexapro 10mg qd #Back pain - lidocaine 5% path #Routine DVT ppx: lovenox GI ppx: protonix Diet: Regular Dispo: pending clinical course Code Status: Attempt Cardiopulmonary Resuscitation - Inpatient PCP: Dilan May MD at [phone] [facility] Medical Student Pager # [phone] * Zainab Parker RN - 01/18/2024 6:08 AM EDT Patient Summary Reason for admission: COPD exacerbation, acute heart failure exacerbation. Relevant PMH: COPD, GERD, lumbar spondylosis, radiculopathy, pyloric stenosis (s/p pyloroplasty), excessive daytime sleepiness, prediabetes (on semaglutide), possible prior PE (s/p 3 months of eliquis) Significant 24 hour events: 01/16 PM: A&OX4. VSS on RA. Afebrile. Denies chest pain, SOB, nausea, vomiting. 3L NC applied while sleeping. Q4hr duoneb continued. Pt complained of R shoulder pain. Prn tylenol given. pt wantedBengay cream. MD notified, no intervention. Chemo plan & supportive medication: N/A Baseline Weight: 80.6kg AM weight: Weight: 80 kg (176 lb 5.9 oz) (01/18/24 0541) Action List Vibratory PEP w/nebs and PRN ID bracelet ( incorrect) Discharge Plan: D/C today? 01/17 * Jessica Brito MD - 01/17/2024 7:41 AM EDT Images from the original note were not included. Hospital Medicine Attending Daily Progress Note Admit Date: 01/15/2024 ( Hospital Day 1 day ) Active Hospital Problems Diagnosis COPD exacerbation Resolved Hospital Problems No resolved problems to display. ASSESSMENT: 73F presenting with several months of progressive CROWLEY, orthopnea, and weight gain which was unresponsive to multiple rounds of prednisone for presumed COPD exacerbation. Treating for acute heart failure exacerbation. Net negative 1.5L over the last day with mild bump in CO2 but stable Cr, standing wt unchanged. Nowon RA at rest, still requiring home 3L NC with sleep. TTE pending. Continues on inhaler and neb regimen with [employer] prednisone dose of 10mg qd. Breathing feels better overall, less CROWLEY and able to lay flat. Planning for another 24-48H of diuresis and then anticipate she will be able to discharge home. PLAN: #acute heart failure exacerbation - preserved EF on TTE from June 2023 - repeat TTE pending - continue IV diuresis prn for goal net negative 1.5L daily - replete K >4, Mg >1 #chronic COPD without acute exacerbation - per last available PFTs from Feb 2023, her (FEV1)/ forced vital capacity (FVC) ratio was actually 0.82 and her FEV1 was 61% predicted - no s/sx or radiographic findings to suggest PNA or URI - per pulm consultation, recommendation to remain on 10mg prednisone qd until follow-up - continue duonebs Q4H, Symbicort, and Spiriva #GERD - home ppi #History of frequent UTIs - at home on daily cephalexin 250 mg daily #Anxiety/Depression - lexipro 10 mg daily Diet Regular diet Discharge planning TBD pending ongoing diuresis - potentially 24-48H PT/OT/Speech N/a Lines/Access PIV Johnson catheter No DVT/GI Prophylaxis Lovenox Vital/lab/FS frequency Vitals Q6H, Labs Qdaily Code status Attempt Cardiopulmonary Resuscitation - Inpatient Family updated at bedside PCP Dilan May MD [phone] Attestation IPI Certification I certify that I am a [facility] credentialed attending provider with admitting privileges and that the patient meets or has met medical necessity to require an inpatient IPI level of care meeting a minimumof two midnights or is on the [facility] inpatient only procedure list (status C) due to: monitoring of fluid status given an inability to regulate fluid balance and the need for administration or restriction of fluids Team (29/12 Coverage) #[id number] Jessica Brito MD 01/17/2024 Subjective/24hr events: - Pt seen and examined at bedside - Reports her head feels slightly fuzzy today but improved from earlier this morning, requesting her home mucinex - CROWLEY and orthopnea improved, less wheezing, comfortable on RA at rest - Tolerating diet ROS: Patient denies fevers, chills, nausea/vomiting, diarrhea/constipation, cp, dysuria. Vitals: Last value Range last 24 hrs Temperature Temp: 36.8 ??C (98.2 ??F) Temp: [36.6 ??C (97.9 ??F)-36.8 ??C (98.2 ??F)] Heart Rate Heart Rate: 72 Heart Rate: [72-94] Blood Pressure BP: 138/81 BP: (110-138)/(64-81) Respiratory Rate Resp: 23 Resp: [17-23] SpO2 SpO2: (!) 89 % SpO2: [89 %-96 %] Intake/Output Summary (Last 24 hours) at 01/17/2024 0741 Last data filed at 01/17/2024 0740 Gross per 24 hour Intake 360 ml Output 1825 ml Net -1465 ml EXAM GEN: Lying in bed comfortably, NAD, on RA, breathing comfortably, speaking in full sentences HEENT: Anicteric, no conjunctival pallor, EOMI, PERRL CVS: Distant heart sounds, RRR, S1+S2+, no m/r/g CHEST: diffuse expiratory wheezing bilaterally in all lung goncalves but improved from yesterday ABD: Soft, ND/NT, BS+divya NEURO: AAO*3, no focal deficits. PSYCH: Normal mood and affect EXT: No edema, rigidity, tremors SKIN: No rash or open wounds LABS: Reviewed in eDH. Remarkable for the following: Recent Labs 01/17/2442201/15/24 1232 WBC 13.72* 13.79* HGB 13.3 12.5 HCT 41.5 38.5 PLATELET 376* 353 Recent Labs 01/17/2442201/15/24133601/15/24 1232 NA 137 -- 135 K 3.6 3.9 -- CL 94* -- 99 CO2 35* -- 25 BUN 24* -- 26* CREATININE 0.89 -- 0.77 GLUCOSE 144 -- 171 CALCIUM 9.9 -- 9.3 Recent Labs 01/15/24133601/15/24 1232 AST 28 -- ALT 25 -- ALKPHOS 117* -- BILITOT -- <0.2 MICRO: No results for input(s): URINECULTURE in the last 720 hours. No results for input(s): BLOODCX in the last 720 hours. Microbiology Results (Last 30 days) No results found for the last 720 hours. STUDIES: Results for orders placed or performed during the hospital encounter of 01/15/24 XR Chest PA & Lateral (Generic) (Exam End: 01/15/2024 12:38 PM) Result Value WORKSTATION ID [id number] Impression Mild congestive heart failure / fluid overload. Thank you for letting us participate in the care of this patient. If you are a health care provider and have any questions regarding this report, please contact the number below. For patients who have questions please contact the health personal care aide that requested your imaging first. Electronically signed by: Brandon Goldberg DO, [facility] ([phone]), at 01/15/2024 12:[address] Chest (08/24/23) PFTs Mild airflow limitation, low DLCO. Echo: 06/30/23 Medications: Scheduled Meds: sodium chloride 0.9 % (flush) 5 mL Intravenous BID enoxaparin 40 mg Subcutaneous Nightly ipratropium-albuteroL 3 mL Nebulization Q4H pantoprazole EC 40 mg Oral Daily escitalopram 10 mg Oral Daily tiotropium 2 puff Inhalation Daily budesonide-formoteroL 2 Inhalation Inhalation BID predniSONE 10 mg Oral Daily nicotine 1 patch Transdermal Daily And Patch Verification 1 patch Transdermal BID lidocaine 1 patch Transdermal Q24H cephALEXin 250 mg Oral Daily pramipexole 1.5 mg Oral BID Continuous Infusions: PRN Meds:.sodium chloride 0.9 % (flush), lidocaine, melatonin, polyethylene glycoL (MIRALAX) oral powder AND bisacodyL AND bisacodyl EC AND lactulose AND lactulose AND magnesium citrate AND Tap water enema, acetaminophen, ondansetron ODT OR ondansetron, nicotine polacrilex * Mariella Oconnor RN - 01/16/2024 6:44 PM EDT Illness Severity [x] Stable [] Watcher [] Unstable Patient Summary Reason for admission: Shortness of breath over several weeks Relevant PMH: COPD, GERD, lumbar spondylosis, radiculopathy, pyloric stenosis (s/p pyloroplasty), excessive daytime sleepiness, prediabetes (on semaglutide), possible prior PE (s/p 3 months of eliquis) Significant 24 hour events: 8/10 AM: Pt arrived from ED admitted for SOB. VSS on 3L NC. Pt reported to this RN that she had a fall in the ED but did not tell anyone, notified. Pt noted to have small skin breakdown on right elbow but no pain from fall. Reports no head strike. Pt refused bed alarm after education on importance. Q4 nebulizer's given with good effect. Pt ambulating to the bathroom IND. CROWLEY improved after IV lasix. Second dose of IV lasix given this evening. Lidocaine patch placed in between shoulder blade with good effect. Pt resting between nursing care. Action List Q4 nebs documented in this encounter H&P Notes * Laol Moore DO - 01/16/2024 12:55 AM EDT Images from the original note were not included. Hospital Medicine Admission History & Physical Bed: ED19/ED-19A Admit Date: 01/15/2024 11:17 AM ID: Mallorie Burgess is a 73 y.o. female with has a past medical history of COPD (chronic obstructive pulmonary disease) and Pre-diabetes. who presents to [facility] for Patient presents with: Shortness of Breath . HPI: 73-year-old female with a past medical history notable for COPD who presents to the ED with shortness of breath. Patient states that she has been mildly short of breath for over a year but has becomeincreasingly worsening over the last couple of weeks. She does have a history of smoking for approximately 55 years stating she smokes about a pack a day. She has seen pulmonology as an outpatient and was recently restarted on her torsemide. Patient states that she was previously on torsemide 10 mgdaily but stopped about a month ago. Patient was also recently started on prednisone 20 mg daily. Patient reports that she has having increased dyspnea on exertion as well as orthopnea. Patient states that she does use home oxygen at night but has been using it throughout the day recently. She denies chest pain, abdominal pain, or recent fever. No current facility-administered medications on file prior to encounter. No current outpatient medications on file prior to encounter. Past Medical History: No past medical history on file. Past Surgical History: No past surgical history on file. Family History: No family history on file. Social history: Social History Socioeconomic History Marital status: Spouse name: Not on file Number of children: Not on file Years of education: Not on file Highest education level: Not on file Occupational History Not on file Tobacco Use Smoking status: Not on file Smokeless tobacco: Not on file Substance and Sexual Activity Alcohol use: Not on file Drug use: Not on file Sexual activity: Not on file Other Topics Concern Not on file Social History Narrative Not on file Social Determinants of Health Financial Resource Strain: Not on file Food Insecurity: Not on file Transportation Needs: Not on file Physical Activity: Not on file Intimate Partner Violence: Not At Risk (01/15/2024) [facility] Inpatient Questions Prevent Contact with Others: no Feels Threatened by Someone: no Feels Unsafe at Home: no Physical Signs of Abuse Present: no Housing Stability: Not on file Meds: Continuous Infusions: Scheduled Meds: PRN Meds:.nicotine polacrilex Vital Signs: Last value Range last 24 hrs Temperature Temp: 35.6 ??C (96.1 ??F) Temp: [35.6 ??C (96.1 ??F)] Heart Rate Heart Rate: (!) 105 Heart Rate: [70-106] Blood Pressure BP: (!) 115/103 BP: (104-157)/(62-103) Respiratory Rate Resp: (!) 32 Resp: [13-38] SpO2 SpO2: 94 % SpO2: [90 %-97 %] Patient Vitals for the past 168 hrs: Weight 01/15/24 1052 81.6 kg (180 lb) Admit wt: 81.65 kg Weight change: I/O: No intake or output data in the 24 hours ending 01/16/24 0055 Physical Exam: Gen: in bed in NAD; alert, oriented, conversant HEENT: anicteric, EOMI intact, head atraumatic/normocephalic CV: RRR, no murmurs/rubs/gallops Resp: CTAB, expiratory wheeze throughout, normal work of breathing Abd: normal bowel sounds, soft, non-tender to palpation, no rebound or guarding Ext: 2+ distal pulses, no pedal edema Neuro: no focal deficits noted, moves all extremities spontaneously Skin: no rashes, lesions, or ulcerations noted Labs Recent Labs 01/15/24 1232 WBC 13.79* HGB 12.5 HCT 38.5 PLATELET 353 Recent Labs 01/15/24133601/15/24 1232 NA -- 135 CL -- 99 CO2 -- 25 K 3.9 -- CALCIUM -- 9.3 BUN -- 26* CREATININE -- 0.77 Recent Labs 01/15/24133601/15/24 1232 AST 28 -- ALT 25 -- ALKPHOS 117* -- BILITOT -- <0.2 No results for input(s): INR, PT, PTT in the last 168 hours. Recent Labs 01/15/24200401/15/24 1232 PROBNP 65 70 No results for input(s): POCGLU in the last 168 hours. Micro Microbiology Results (Last 30 days) No results found for the last 720 hours. Imaging/Studies: Results for orders placed or performed during the hospital encounter of 01/15/24 XR Chest PA & Lateral (Generic) (Exam End: 01/15/2024 12:38 PM) Result Value WORKSTATION ID [id number] Impression Mild congestive heart failure / fluid overload. Thank you for letting us participate in the care of this patient. If you are a health care provider and have any questions regarding this report, please contact the number below. For patients who have questions please contact the health personal care aide that requested your imaging first. Electronically signed by: Brandon Goldberg DO, [facility] ([phone]), at 01/15/2024 12:49 PM Assessment & Plan: Mallorie Burgess is a 73 y.o. female with a significant past medical history of COPD who presents to the ED with acute shortness of breath at rest and with exertion. She was recently restarted on her home dose of torsemide after being off it for about a month. Patient was also recently started on prednisone patient could also benefit from a reevaluation of supplemental oxygen. Patient might need oxygen supplementation throughout the day and not just at night. Patient has an extensive smoking history and was advised of smoking cessation. # COPD exacerbation -Status post Lasix in ED -Continue Lasix 40 mg daily -DuoNebs every 4 as needed -Could benefit from supplemental oxygen throughout the day -ProAir at home -Breztri at home -symbicort and spiriva -Prednisone 40 mg daily -advised smoking cessation - pt states recent PFT as outpatient -Consider pulmonology consult #Hx of Gerd -Protonix 40 mg daily # History of frequent UTIs -At home on daily cephalexin 250 mg daily #Anxiety/Depression - lexipro 10 mg daily #Routine --DVT ppx: lovenox --GI ppx: protonix --Diet No diet orders on file --Dispo: medical floors --Code status: No Order Lalo Moore DO 01/16/24 12:55 AM documented in this encounter ED Notes * Vivek Colorado RN - 01/16/2024 9:51 AM EDT Pts charts marked for merge, new orange wrist band with accurate and MRN placed on pt R wrist. * Vivek Colorado RN - 01/16/2024 7:29 AM EDT Pt ambulated to restroom and back to bed, pt gait unsteady breathing labored, pt O2 sat 87% once back in bed, pt instructed to take deep breaths with oxygen on and O2 sat returned back to 93% * Vivek Colorado RN - 01/16/2024 7:17 AM EDT Report received from Azael GOODE * Azael Donohue RN - 01/16/2024 5:12 AM EDT Pt resting in hospital stretcher, call cobb within reach. * Azael Donohue RN - 01/16/2024 1:00 AM EDT Pt refusing blood pressure monitoring at this time * Azael Donohue RN - 01/16/2024 12:42 AM EDT Pt resting in hospital bed, equal and unlabored respirations, WPD, NAD noted on exam at this time. Call cobb within reach. * Azael Donohue RN - 01/15/2024 9:42 PM EDT Pt got out of bed to move around and desatted to 86% on RA, Pt sat back down in bed and sats came back up to 94%, Reports shortness of breath with exertion that has been going on for months. * Ulises Perez MD - 01/15/2024 12:22 PM EDT ED Resident and Attending Note: Patient: Mallorie Burgess Age (): 73 y.o. (1950) SUBJECTIVE HPI: Mallorie Burgess is a 73 y.o. female with a PMH notable for COPD who presented to the ED for shortness of breath. The patient presents for acutely worsening shortness of breath over the last several weeks that has been present for at least a year and a half. She notes she has COPD at baseline and has been smoking for approximately 55 years at at least a pack a day. She says she has been seen at an outside hospital where she was started on Lasix 20 mg 3 days ago and then 10 mg for the previous 2 days. She notes that she urinates excessively but feels as if she gains the weight back in the morning.She denies any pedal edema. She endorses orthopnea, dyspnea on exertion, falling asleep midsentence. She uses home O2 normally just at night but has been using it three quarters of the day. She denies chest pain, syncope, cough, fever/chills. History was obtained from patient at bedside. ROS as per HPI. Past Medical and Surgical Histories, Social History, Medications, Allergies were reviewed in the chart. Pt was seen under the supervision of an attending physician. OBJECTIVE Vital Signs: ED Triage Vitals BP: 104/73 [01/15/24 1053] Heart Rate: 95 [01/15/24 1052] Resp: 16 [01/15/24 105] Temp: 35.6 ??C (96.1 ??F) [01/15/24 105] Temp src: Temporal [01/15/241051] SpO2: 94 % [01/15/241051] O2 Device: RA [01/15/241051] O2 Flow Rate (L/min): n/a Physical Exam Vitals reviewed. Constitutional: General: She is not in acute distress. HENT: Head: Normocephalic and atraumatic. Right Ear: External ear normal. Left Ear: External ear normal. Nose: Nose normal. Mouth/Throat: Pharynx: Oropharynx is clear. Eyes: Conjunctiva/sclera: Conjunctivae normal. Cardiovascular: Rate and Rhythm: Normal rate and regular rhythm. Pulses: Normal pulses. Heart sounds: Normal heart sounds. No murmur heard. Pulmonary: Effort: Pulmonary effort is normal. No respiratory distress. Breath sounds: Normal breath sounds. Abdominal: General: Abdomen is flat. There is distension. Palpations: Abdomen is soft. Tenderness: There is no abdominal tenderness. There is no guarding or rebound. Hernia: No hernia is present. Musculoskeletal: General: Normal range of motion. Cervical back: Normal range of motion. Right lower leg: No edema. Left lower leg: No edema. Skin: General: Skin is warm and dry. Capillary Refill: Capillary refill takes less than 2 seconds. Coloration: Skin is not jaundiced or pale. Findings: No bruising or erythema. Neurological: Mental Status: She is alert and oriented to person, place, and time. Sensory: No sensory deficit. Motor: No weakness. Psychiatric: Behavior: Behavior normal. I reviewed the EKG tracing: Rhythm: Normal sinus rhythm at a rate of 84 bpm with PACs, no signs of ischemia Last 3 wbc, hgb, hct plt Recent Labs 01/15/24 1232 WBC 13.79* HGB 12.5 HCT 38.5 PLATELET 353 Last 3 Lytes Recent Labs 01/15/24 1232 NA 135 CL 99 CO2 25 BUN 26* CREATININE 0.77 Last 3 LFTs Recent Labs 01/15/24 1232 BILITOT <0.2 Last 3 ProBNP, Trop, CK Recent Labs 01/15/24 1232 PROBNP 70 Last D-Dimer Recent Labs 01/15/24 1337 DDIMER 562* I have reviewed imaging, which is significant for: XR Chest PA & Lateral (Generic) Final Result Mild congestive heart failure / fluid overload. Thank you for letting us participate in the care of this patient. If you are a health care provider and have any questions regarding this report, please contact the number below. For patients who have questions please contact the health personal care aide that requested your imaging first. Chest One View (Results Pending) I performed the following procedure(s): None ASSESSMENT & PLAN MDM: ED Course as of 01/15/24 1658 ThuJan 15, 2024 1245 XR Chest PA & Lateral (Generic) Vascular congestion Mallorie Burgess was evaluated for dyspnea on exertion. The patient has had increasing dyspnea on exertion for several weeks but grossly over a year. She notes she has had slight improvement with Lasix started 3 days ago (20 mg 3 days ago, 10 mg for 2 days). She has no pedal edema and uses oxygen approximately 3 cords the day when previously it was just overnight. She has notable weight gain over thepast year and she states she predominantly holds in her belly not in her extremities. She denies abdominal tenderness, changes in bowel bladder habits, head pain, vision changes. She has not been illor injured recently. On exam she has what appears to be a fluid-filled abdomen but no pedal edema. She has a leukocytosis to 13.8. Her proBNP is 70. She has a negative age- adjusted D-dimer. I believe given her chest x-ray, history and previous response to Lasix this is likely a volume overload issue. She was given 20 mg Lasix. This is does not necessitate her admission to hospital medicine. She requires reevaluation after Lasix. DIAGNOSIS: No diagnosis found. PLAN: The patient was signed out at end of shift pending troponin series and response to Lasix. If she had good response to Lasix improvement of her symptoms she may be able to be discharged home. Evita Spears D.O. Emergency Medicine Resident, PGY-2 01/15/24 4:58 PM Evita Spears DO Resident 01/15/24 2727 ED ATTENDING ADDENDUM: The patient was seen in conjunction with Dr. Spears, the resident physician. I have independently performed the heller portions of the history and physical exam. I have reviewed all diagnostic studies personally including labs, imaging studies and EKG's. I have reviewed the patient's chart where indicated. I have also reviewed/obtained the allergies, medication, past medical history, and social history as documented in other parts of the chart. I have discussed the details of the case with the resident and agree with the all heller portions of the H&P and plan as described in the resident note above. She has a negative age-adjusted D-dimer. Signed out at the end of my shift to the oncoming ED attending. Ulises Perez MD 02/06/24 1057 documented in this encounter Miscellaneous Notes * Plan of Care - Stephani Lomas RN - 01/19/2024 1:00 PM EDT Problem: Adult Inpatient Plan of Care Goal: Plan of Care Review Outcome: Outcome (s) achieved Goal: Patient-Specific Goal (Individualized) Outcome: Outcome (s) achieved Goal: Absence of Hospital-Acquired Illness or Injury Outcome: Outcome (s) achieved Goal: Optimal Comfort and Wellbeing Outcome: Outcome (s) achieved Goal: Readiness for Transition of Care Outcome: Outcome (s) achieved Problem: Fall Injury Risk Goal: Absence of Fall and Fall-Related Injury Outcome: Outcome (s) achieved Problem: Pain Acute Goal: Acceptable Pain Control and Functional Ability Outcome: Outcome (s) achieved * Plan of Care - Mrita Dejesus RN - 01/19/2024 2:40 AM EDT OUTCOME EVALUATION NOTE: OUTCOME SUMMARY: This song writer cared for pt from [id number]. Pt denies CP, nausea, dizziness, or n/t. CROWLEY noted. PRN tylenol provided for R shoulder pain with good effect. No acute events this shift. See doc flowsheet for full pt assessment. Call cobb within reach. Bed alarm refused. VSS. No further needs at this time. Report given to RUPA Lamb. PLAN MOVING FORWARD: Monitor labs, monitor respiratory status, dibernardoe, d/c planning INDIVIDUALIZED FALL PREVENTION INTERVENTIONS: Patient-specific fall risk factors per assessment: [current deficits]: Hospital environment, lines/devices, generalized weakness Assistance [level of assistance required for transfers and ambulation]: Ind Supervision [direct monitoring required during toileting and ADLs]: Ind Surveillance [continuous indirect monitoring]: Masimo, hourly rounding Patient-specific fall prevention interventions for sensory deficits provided, if applicable: [X] N/A * Plan of Care - Ana Ridley RN - 01/18/2024 6:53 PM EDT OUTCOME EVALUATION NOTE: OUTCOME SUMMARY: A&Ox4 and VSS on RA. Received 1x IV lasix and 2x KCL. Patient continues with R shoulder pain and Bengay was ordered and applied. She ambulated the vallejo with no issues. Some urine occurences were unable to be measured d/t shared room and removal of urine hat. PLAN MOVING FORWARD: Vibratory PEP w/nebs and PRN ID bracelet ( incorrect) merge pending q4h nebs Diuresis Problem: Adult Inpatient Plan of Care Goal: Plan of Care Review Outcome: Ongoing (Interventions Implemented as Appropriate) Goal: Patient-Specific Goal (Individualized) Outcome: Ongoing (Interventions Implemented as Appropriate) Goal: Absence of Hospital-Acquired Illness or Injury Outcome: Ongoing (Interventions Implemented as Appropriate) Goal: Optimal Comfort and Wellbeing Outcome: Ongoing (Interventions Implemented as Appropriate) Goal: Readiness for Transition of Care Outcome: Ongoing (Interventions Implemented as Appropriate) Problem: Fall Injury Risk Goal: Absence of Fall and Fall-Related Injury Outcome: Ongoing (Interventions Implemented as Appropriate) Problem: Pain Acute Goal: Acceptable Pain Control and Functional Ability Outcome: Ongoing (Interventions Implemented as Appropriate) CARE PLAN GOAL OUTCOME EVALUATION: ongoing * Plan of Care - Maribel Gallego RN - 01/17/2024 6:14 PM EDT OUTCOME EVALUATION NOTE: OUTCOME SUMMARY: A/Ox4, VSS on RA. Goal for saturations 88% and greater. Independent in room, continues on diureses with IV lasix. Strict output per epic. VAS paged to eval PIV on left FA, painful and slightly puffy.PIV removed and new IV placed to right FA. Continues on neb treatments. RT paged for vibratory PEP,in this afternoon for education and providing device to use. TTE completed at bedside this afternoon. Lasix 80mg IV given x2 this shift. Potassium given this AM in applesauce. Patient moved to room 119A this evening PLAN MOVING FORWARD: Q4 nebs Diurese Monitor electrolytes Strict I/O Vibratory PEP w/nebs and PRN INDIVIDUALIZED FALL PREVENTION INTERVENTIONS: Patient-specific fall risk factors per assessment: [current deficits]: diuresis, COPD, oxygen use, activity intolerace Assistance [level of assistance required for transfers and ambulation]: independent Supervision [direct monitoring required during toileting and ADLs]: independent Surveillance [continuous indirect monitoring]: frequent rounding, call light within reach, continuous masimo Patient-specific fall prevention interventions for sensory deficits provided, if applicable: [X] N/A CARE PLAN GOAL OUTCOME EVALUATION: Problem: Adult Inpatient Plan of Care Goal: Plan of Care Review Outcome: Ongoing (Interventions Implemented as Appropriate) Flowsheets (Taken 01/17/20241812) Outcome Summary: reviewed plan of care with patient at bedside. Plan of Care Reviewed With: patient Progress: no change Goal: Optimal Comfort and Wellbeing Outcome: Ongoing (Interventions Implemented as Appropriate) Note: Independent in room Intervention: Monitor Pain and Promote Comfort Note: Lidocaine patch applied to right shoulder blade Intervention: Provide Person-Centered Care Flowsheets (Taken 01/17/2024814) Trust Relationship/Rapport: care explained choices provided Problem: Fall Injury Risk Goal: Absence of Fall and Fall-Related Injury Outcome: Ongoing (Interventions Implemented as Appropriate) Note: Independent in room. Refused bed alarm Intervention: Identify and Manage Contributors Flowsheets Taken 01/17/20241812 Self-Care Promotion: BADL personal objects within reach Taken 01/17/2024 0815 Medication Review/Management: medications reviewed Intervention: Promote Injury-Free Environment Flowsheets (Taken 01/17/2024 0815) Safety Promotion/Fall Prevention: clutter free environment maintained fall prevention program maintained lighting adjusted nonskid shoes/slippers when out of bed room organization consistent safety round/check completed * Consult Note - Shelley Albarado RN - 01/17/2024 8:54 AM EDTSummary: Left Forearm Infiltrate of lasix Images from the original note were not included. Infiltration/Extravasation Scale Instructions: Strikeout non-applicable grades, highlight the grade which applies to this patient byBOLD lettering and COLOR RED 2. Skin blanched Edema 1 to 6 inches (2.5 to 15 cm) in any direction Or 6 -25% of limb affected Specific details of infiltration/extravasation Medication infiltrated Lasix/NS Measurement in cm of length and width of affected area---Affected extremity L: 5.5cm, W: 4.5cm Measurement of Circumference in cm of Infiltrated area of affected extremity C: 24cm Medicated treatment given per policy/ order No treatment required Plan for continued monitoring of infiltration/extravasation Name of MD contacted Jessica Brito MD via secure chat (Mandatory photo for infiltrations/ extravasations scoring a stage 2 or greater, but recommended for stage 1)( include measuring tape and identifier in the photo) ETL BI DEVELOPER CARING FOR THIS PATIENT WILL CONTINUE TO MONITOR AND WILL ASSUME CARE, VASCULAR ACCESS WILL NOT FOLLOW THIS EVENT AT THE SIGNING OF THIS NOTE. * Plan of Care - Florian Hawk RN - 01/16/2024 9:43 PM EDT Problem: Adult Inpatient Plan of Care Goal: Plan of Care Review Outcome: Ongoing (Interventions Implemented as Appropriate) Goal: Patient-Specific Goal (Individualized) Outcome: Ongoing (Interventions Implemented as Appropriate) Goal: Absence of Hospital-Acquired Illness or Injury Outcome: Ongoing (Interventions Implemented as Appropriate) Goal: Optimal Comfort and Wellbeing Outcome: Ongoing (Interventions Implemented as Appropriate) Goal: Readiness for Transition of Care Outcome: Ongoing (Interventions Implemented as Appropriate) Problem: Fall Injury Risk Goal: Absence of Fall and Fall-Related Injury Outcome: Ongoing (Interventions Implemented as Appropriate) Problem: Pain Acute Goal: Acceptable Pain Control and Functional Ability Outcome: Ongoing (Interventions Implemented as Appropriate) * Patient Refusal of Care - Florian Hawk RN - 01/16/2024 7:38 PM EDT Patient refusing to have bed alarm active. The reason pt gave for this refusal was I don't want iton. Nursing actions taken during this shift to address patient???s refusal included Education about importance of care Plan to address patient???s refusal include Nursing leadership notified documented in this encounter Plan of Treatment Upcoming Encounters Date Type Department Care Team (Late st Contact Info) Description 07/12/2024 8:00 AM [facility] Hospital Encounter XRay at [address] [place] [address] [place] [address] Scheduled Procedures Name Priority Associated Diagnoses Date/Ti me INJECTION, FACET JOINT, W\FLUORO, LUMBAR, 2ND LEVEL (WRVU 1) Spondylosis of lumbar region without myelopathy or radiculopathy INJECTION, FACET JOINT, W\FLUORO, LUMBAR, SINGLE (WRVU 1.52) Spondylosis of lumbar region without myelopathy or radiculopathy documented as of this encounter Procedures Procedure Name Priority Date/Time Associated Diagnosis Comments CBC (WITH DIFF) Routine 01/19/2024 4:10 AM EDT BASIC METABOLIC PANEL Routine 01/19/2024 4:10 AM EDT BASIC METABOLIC PANEL Routine 01/18/2024 5:06 PM EDT CBC (WITH DIFF) Routine 01/18/2024 4:38 AM EDT HEMOGLOBIN A1C Add-On 01/18/2024 4:38 AM EDT BASIC METABOLIC PANEL Routine 01/18/2024 4:38 AM EDT ECHO COMPLETE Routine 01/17/2024 2:01 PM EDT Orthopnea CBC (WITH DIFF) Routine 01/17/2024 4:23 AM EDT BASIC METABOLIC PANEL Routine 01/17/2024 4:23 AM EDT TROPONIN - SINGLE STAT 01/15/2024 8:0 5 PM EDT PRO-BRAIN NATRIURETIC PEPTIDE STAT Add-On 01/15/2024 8:05 PM EDT TROPONIN-T, HIGH SENSITIVITY 1 HOUR PERFORMABLE STAT 01/15/2024 1:37 PM EDT D-DIMER, QUANTITATIVE STAT 01/15/2024 1:37 PM EDT ALANINE AMINOTRANSFERASE STAT Add-On 01/15/2024 1:37 PM EDT ASPARTATE AMINOTRANSFERASE STAT Add-On 01/15/2024 1:37 PM EDT POTASSIUM STAT Add-On 01/15/2024 1:37 PM EDT ALKALINE PHOSPHATASE STAT Add-On 01/15/2024 1:37 PM EDT BLOOD GAS VENOUS POC Routine 01/15/2024 1:00 PM EDT XR CHEST PA AND LATERAL STAT 01/15/20 12:38 PM EDT TROPONIN - SERIES STAT 01/15/2024 12: 32 PM EDT CBC (WITH DIFF) STAT 01/15/2024 12:32 PM EDT PRO-BRAIN NATRIURETIC PEPTIDE STAT 01/15/2024 12:32 PM EDT COMPREHENSIVE METABOLIC PANEL STAT 01/15/2024 12:32 PM EDT EKG 12-LEAD STAT 01/15/2024 12:21 PM EDT documented in this encounter Results * (ABNORMAL) CBC (with Diff) (01/19/2024 4:10 AM EDT) [facility] White Blood Cell 14.38(H) 4.00 - 9.50 x10(3)/mc L 01/19/2024 4:46 AM [facility] Red Blood Cell 4.65 4.00 - 5.21 x10(6)/mc L 01/19/2024 4:46 AM [facility] Hemoglobin 13.6 11.7 - 15.5 g/dL 01/19/2024 4:46 AM [facility] Hematocrit 42.0 35.7 - 45.8 % 01/19/2024 4:46 AM [facility] Mean Cell Volume 90.3 82.6 - 94.4 fL 01/19/2024 4:46 AM [facility] Mean Cell Hemoglobin 29.2 27.1 - 32.0 pg 01/19/2024 4:46 AM [facility] Mean Cell Hemoglobin Concentration 32.4 31.7 - 35.0 g/dL 01/19/2024 4:46 AM [facility] Platelet 382(H) 145 - 357 x10(3)/mc L 01/19/2024 4:46 AM [facility] Mean Platelet Volume 9.1 7.6 - 12.9 fL 01/19/2024 4:46 AM [facility] RDW Standard Deviation 49.5(H) 37.0 - 46.0 fL 01/19/2024 4:46 AM [facility] RDW coefficient of variation 15.0(H) 11.5 - 14.1 % 01/19/2024 4:46 AM [facility] NRBC% auto 0.0 % 01/19/2024 4:46 AM [facility] NRBC Absolute 0.00 0.00 - 0.00 x10(3)/mc L 01/19/2024 4:46 AM [facility] Neutrophil % 62.0 % 01/19/2024 4:46 AM EDT [facility] Neutrophil Absolute (ANC) - Automated 8.91(H) 1.70 - 6.10 x10(3)/mc L 01/19/2024 4:46 AM EDT [facility] Lymph % 29.1 % 01/19/2024 4:46 AM EDT [facility] Lymph Absolute 4.19(H) 0.90 - 3.20 x10(3)/mc L 01/19/2024 4:46 AM EDT [facility] Monocyte % 6.3 % 01/19/2024 4:46 AM EDT [facility] Monocyte Absolute 0.90 0.30 - 0.90 x10(3)/mc L 01/19/2024 4:46 AM EDT [facility] Eos % 1.1 % 01/19/2024 4:46 AM EDT [facility] Eos Absolute 0.16 0.00 - 0.40 x10(3)/mc L 01/19/2024 4:46 AM EDT [facility] Basophil % 0.3 % 01/19/2024 4:46 AM EDT [facility] Baso Absolute 0.05 0.00 - 0.10 x10(3)/mc L 01/19/2024 4:46 AM EDT [facility] Immature Gran % 1.2 % 4:46 AM EDT [facility] Immature Gran Absolute 0.17(H) 0.00 - 0.04 x10(3)/mc L 01/19/2024 4:46 AM EDT [facility] Blood VENOUS BLOOD SPECIMEN / Unknown IP Care Team Draw / Unknown 01/19/2024 4:10 AM EDT 01/19/2024 4:40 AM EDT Lalo Moore DO HEMATOLOGY ORDERAB LES [facility] [place] [address] * (ABNORMAL) Basic Metabolic Panel (01/19/2024 4:10 AM ED) Glucose 175 65 - 199 mg/dL 01/19/2024 5:09 AM [facility] Comment:Glucose Concentratio n >=200 mg/dL plus symptoms is consistent with Diabetes Mellitus. Blood Urea Nitrogen 25(H) 8 - 18 mg/dL 01/19/2024 5:09 AM [facility] Creatinine 0.85 0.70 - 1.20 mg/dL 01/19/2024 5:09 AM [facility] Sodium 132(L) 135 - 145 mMol/L 01/19/2024 5:09 AM [facility] Potassium 3.8 3.5 - 5.0 mMol/L 01/19/2024 5:09 AM [facility] Chloride 92(L) 98 - 107 mMol/L 01/19/2024 5:09 AM [facility] Carbon Dioxide 28 22 - 31 mMol/L 01/19/2024 5:09 AM [facility] Anion Gap 12 5 - 15 mMol/L 01/19/2024 5:09 AM [facility] Calcium 9.9 8.5 - 10.5 mg/dL 01/19/2024 5:09 AM [facility] Est Glomerular Filtration Rate - Female 73 mL/min/1. 73 m?? 01/19/2024 5:09 AM [facility] Comment: This patient's estimated GFR was [...] Foundation Blood VENOUS BLOOD SPECIMEN / Unknown IP Care Team Draw / Unknown 01/19/2024 4:10 AM EDT 01/19/2024 4:41 AM EDT Lalo Moore DO CHEMISTRY ORDERABL ES [facility] [place] [address] * (ABNORMAL) Basic Metabolic Panel (01/18/2024 5:06 PM EDT) Glucose 258(H) 65 - 199 mg/dL 01/18/2024 5:55 PM EDT [facility] Comment:Glucose Concentratio n >=200 mg/dL plus symptoms is consistent with Diabetes Mellitus. Blood Urea Nitrogen 25(H) 8 - 18 mg/dL 01/18/2024 5:55 PM EDT [facility] Creatinine 0.96 0.70 - 1.20 mg/dL 01/18/2024 5:55 PM EDT [facility] Sodium 134(L) 135 - 145 mMol/L 01/18/2024 5:55 PM EDT [facility] Potassium 4.3 3.5 - 5.0 mMol/L 01/18/2024 5:55 PM EDT [facility] Chloride 93(L) 98 - 107 mMol/L 01/18/2024 5:55 PM EDT [facility] Carbon Dioxide 27 22 - 31 mMol/L 01/18/2024 5:55 PM EDT [facility] Anion Gap 14 5 - 15 mMol/L 01/18/2024 5:55 PM EDT [facility] Calcium 10.0 8.5 - 10.5 mg/dL 01/18/2024 5:55 PM EDT [facility] Est Glomerular Filtration Rate - Female 63 mL/min/1. 73 m?? 01/18/2024 5:55 PM EDT [facility] Comment: This patient's estimated GFR [...] Foundation Blood VENOUS BLOOD SPECIMEN / Unknown IP Care Team Draw / Unknown 01/18/2024 5:06 PM EDT 01/18/2024 5:12 PM EDT Jessica Brito MD CHEMISTRY ORDERABLES [facility] [place] [address] * (ABNORMAL) Hemoglobin A1c (01/18/2024 4:38 AM EDT) [facility] Hemoglobin A1c 7.0(H) 4.3 - 5.6 % 01/18/2024 11:23 AM EDT [facility] Comment: Per ADA guidelines, without clear symptoms of hyperglycemia or a random plasma glucose >199 mg/dL, a single abnormal A1c measurement cannot be used to diagnose diabetes mellitus. The diagnosis must be confirmed by either 1) a concurrent abnormal fasting plasma glucose or impaired response to oral glucose tolerance testing, or 2) an additional abnormal A1c, impaired fasting plasma glucose, or impaired response to oral glucose tolerance testing on a different day. A1c results obtained on patients with altered red blood cell turnover may not be field service representative of glycemic control. Reference Interval: 4.3 - 5.6% 5.7 - 6.4%: Consistent with prediabetes >=6.5%: Consistent with diagnosis of diabetes mellitus Estimated Average Glucose 01/18/2024 11:23 AM EDT [facility] Comment:Not Calculated. Blood VENOUS BLOOD SPECIMEN / Unknown IP Care Team Draw / Unknown 01/18/2024 4:38 AM EDT 01/18/2024 5:17 AM EDT Narrative [facility] - 01/18/2024 11:23 AM EDT Estimated average glucose (eAG) is calculated from the equation described in: Florian ELDER, Kunal J, Julee R, et al. ??Translating the A1C assay into estimated average glucose values. ??Diabetes Care 2008:31(8):3915-1254. Additional resources are available on the ADA website (diabetes.org). Jessica Brito MD CHEMISTRY ORDERABLES [facility] [place] [address] * (ABNORMAL) CBC (with Diff) (01/18/2024 4:38 AM EDT) White Blood Cell 12.88(H) 4.00 - 9.50 x10(3)/mc L 01/18/2024 5:27 AM EDT [facility] Red Blood Cell 4.44 4.00 - 5.21 x10(6)/mc L 01/18/2024 5:27 AM EDT [facility] Hemoglobin 13.0 11.7 - 15.5 g/dL 01/18/2024 5:27 AM EDT [facility] Hematocrit 39.9 35.7 - 45.8 % 01/18/2024 5:27 AM EDT [facility] Mean Cell Volume 89.9 82.6 - 94.4 fL 01/18/2024 5:27 AM EDT [facility] Mean Cell Hemoglobin 29.3 27.1 - 32.0 pg 01/18/2024 5:27 AM EDT [facility] Mean Cell Hemoglobin Concentration 32.6 31.7 - 35.0 g/dL 01/18/2024 5:27 AM EDT [facility] Platelet 383(H) 145 - 357 x10(3)/mc L 01/18/2024 5:27 AM EDT [facility] Mean Platelet Volume 9.0 7.6 - 12.9 fL 01/18/2024 5:27 AM EDT [facility] RDW Standard Deviation 48.7(H) 37.0 - 46.0 fL 01/18/2024 5:27 AM [facility] RDW coefficient of variation 14.7(H) 11.5 - 14.1 % 01/18/2024 5:27 AM [facility] NRBC% auto 0.0 % 01/18/2024 5:27 AM [facility] NRBC Absolute 0.00 0.00 - 0.00 x10(3)/mc L 01/18/2024 5:27 AM [facility] Neutrophil % 62.2 % 01/18/2024 5:27 AM [facility] Neutrophil Absolute (ANC) - Automated 8.01(H) 1.70 - 6.10 x10(3)/mc L 01/18/2024 5:27 AM [facility] Lymph % 28.9 % 01/18/2024 5:27 AM [facility] Lymph Absolute 3.72(H) 0.90 - 3.20 x10(3)/mc L 01/18/2024 5:27 AM [facility] Monocyte % 6.1 % 01/18/2024 5:27 AM [facility] Monocyte Absolute 0.79 0.30 - 0.90 x10(3)/mc L 01/18/2024 5:27 AM [facility] Eos % 1.2 % 01/18/2024 5:27 AM [facility] Eos Absolute 0.16 0.00 - 0.40 x10(3)/mc L 01/18/2024 5:27 AM [facility] Basophil % 0.4 % 01/18/2024 5:27 AM [facility] Baso Absolute 0.05 0.00 - 0.10 x10(3)/mc L 01/18/2024 5:27 AM [facility] Immature Gran % 1.2 % 08/12/202 4 5:27 AM EDT [facility] Immature Gran Absolute 0.15(H) 0.00 - 0.04 x10(3)/mc L 01/18/2024 5:27 AM EDT [facility] Blood VENOUS BLOOD SPECIMEN / Unknown IP Care Team Draw / Unknown 01/18/2024 4:38 AM EDT 01/18/2024 5:17 AM EDT Lalo Moore DO HEMATOLOGY ORDERAB LES [facility] [address] [place] [address] * (ABNORMAL) Basic Metabolic Panel (01/18/2024 4:38 AM EDT) Glucose 162 65 - 199 mg/dL 01/18/2024 5:46 AM EDT [facility] Comment:Glucose Concentratio n >=200 mg/dL plus symptoms is consistent with Diabetes Mellitus. Blood Urea Nitrogen 26(H) 8 - 18 mg/dL 01/18/2024 5:46 AM EDT [facility] Creatinine 0.91 0.70 - 1.20 mg/dL 01/18/2024 5:46 AM EDT [facility] Sodium 136 135 - 145 mMol/L [facility]/18[facility]24 [facility] Potassium 3.4(L) 3.5 - 5.0 mMol/L 01/18/2024 5:46 AM EDT [facility] Chloride 94(L) 98 - 107 mMol/L 01/18/2024 5:46 AM [facility] Carbon Dioxide 30 22 - 31 mMol/L 01/18/2024 5:[facility] Anion Gap 12 5 - 15 mMol/L 01/18/2024 5:46 [facility] Calcium 9.6 8.5 - 10.5 mg/dL 01/18/2024 5:46 [facility] Est Glomerular Filtration Rate - Female 67 mL/min/1. 73 m?? 01/18/2024 5:46 AM EDT [facility] Comment: This patient's estimated GFR [...] Foundation Blood VENOUS BLOOD SPECIMEN / Unknown IP Care Team Draw / Unknown 01/18/2024 4:38 AM EDT 01/18/2024 5:17 AM EDT Lalo Moore DO CHEMISTRY ORDERABL ES [facility] [place] [address] * ECHO COMPLETE (01/17/2024 2:01 PM EDT) EF 65 HEARTLAB SYSTEM Anatomical Region Laterality Modality Cardiac Other 01/17/2024 1:12 PM EDT Narrative 01/17/2024 2:07 PM EDT ? Version 2 [address] [place] [address] ? Echocardiogram Report Name: MALLORIE BURGESS ? Study Date: 01/17/2024 01:12 PMBP: 109/72 mmHg ? Patient Location: L1WD 0101 A : 1950 ? Height: 132 cm ? Account: [id number] Age: 73 yrs ? Weight: 80 kg Gender: Female ?BSA: 1.6 m2 Ordering Physician: JESSICA BRITO Referring Physician: UNKNOWN Performed By: Indu Patel RDCS Reason For Study: Orthopnea Exam Location: [facility]. Interpretation Summary Left ventricle is of normal size. Wall thickness is mildly increased. The left ventricular ejection fraction is 65% by Ny's biplane. There are no segmental wall motion abnormalities. The right ventricle is of normal size. Right ventricular systolic function is normal. Pulmonary artery hypertension could not be assessed due to inadequate tricuspid regurgitation jet. No hemodynamiclly significant valvular disease noted on this study. See report for additional findings. No comparison study is available. Procedure Complete-[id number]. Satisfactory quality. Left Ventricle Left ventricle is of normal size. Wall thickness is mildly increased. There is no left ventricular outflow tract obstruction. There is no ventricular septal defect. Left ventricular systolic function is normal. The left ventricular ejection fraction is 65% by Ny's biplane. There are no segmental wall motion abnormalities. Right Ventricle The right ventricle is of normal size. Right ventricular systolic function is normal. Left Atrium The left atrium is normal. No abnormality of the interatrial septum is identified. Right Atrium The right atrium is normal. Aortic Valve The aortic valve is tricuspid. The aortic valve is mildly thickened. There is no aortic stenosis. There is no aortic regurgitation. Mitral Valve The mitral valve is structurally normal. There is no mitral stenosis. There is trace mitral regurgitation. Tricuspid Valve The tricuspid valve is structurally normal. There is trace tricuspid regurgitation. Pulmonic Valve The pulmonic valve appears to be structurally normal. There is no pulmonic valve regurgitation. Great Arteries The diameter at the level of the sinuses of Valsalva is 3.3 cm. The maximum diameter of the proximal ascending aorta is 3.5 cm. The pulmonary artery is not well visualized. Venous Inferior vena cava is normal in size. Inferior vena cava collapse greater than 50% with respiration. Pericardium/Pleural There is a trivial pericardial effusion. Hemodynamics Pulmonary artery hypertension could not be assessed due to inadequate tricuspid regurgitation jet. The estimated right atrial pressure is 3mmHg. Left ventricular filling pressure is normal. Ejection Fraction ?2D Measurements ? Volumes EF(MOD-bp): 64.6 % ?IVSd: 1.4 cm ? LAV(MOD- bp) Indexed: ?LVIDd: 3.4 cm ?LVIDs: 3.0 cm ?21.3 ml/m2 ?LVPWd: 1.2 cm ?RA A4Cs_phl: 12.5 cm2 ? EDV(MOD-bp) Indexed: ?RWT: 0.71 {ratio} ?LV mass(C)d: 154.7 grams ? 37.7 ml/m2 ?LV mass(C)dI: 96.8 grams/m2 ?ESV(MOD- bp) Indexed: ?Ao root diam: 3.3 cm ? 13.4 ml/m2 ?Ao root diam index: 2.1 ?SV(LVOT): 58.1 ml ?asc Aorta Diam: 3.5 cm ?LVOT diam: 1.9 cm ?SI(LVOT): 36.3 ml/m2 ?TAPSE_phl: 2.1 cm Doppler LV V1 VTI: 19.8 cm Ao V2 VTI: 23.0 cm Ao Max: 148.8 cm/sec Ao valve max: 8.9 mmHg Ao valve mean: 4.8 mmHg MV E max edu: 66.7 cm/sec MV A max edu: 94.4 cm/sec MV E/A: 0.71 MV dec time: 0.17 sec Lat Peak E' Edu: 10.1 cm/sec E/e' (lat): 6.6 Med Peak E' Edu: 11.2 cm/sec E/e' (med): 6.0 E/e' Average: 6.3 GALINDO(I,D): 2.5 cm2 Dimensionless index Aov: 0.86 I ?WMSI = 1.00 ? % Normal = 100 ?Segments ??Size X - Cannot ?2 - ?4 - ?1-2 ? small Interpret ?1 - Normal ?? Hypokinetic 3 - Akinetic Dyskinetic ?? 3-5 ? moderate 5 - ? 6-14 ?large Aneurysmal ?15-16 ?? diffuse Procedure Note Moshe Escobar MD - 01/26/2024 Version 2 [address] [place] [id number] Echocardiogram Report Name: KHOA MALLORIE Arian Study Date: 401:12 PMBP: 109/72 mmHg Patient Location: [address] : 1950 Height: 132 cm Account: [id number] Age: 73 yrs Weight: 80 kg Gender: Female BSA: 1.6 m2 Ordering Physician: JESSICA BRITO Referring Physician: UNKNOWN Performed By: Indu Patel RDCS Reason For Study: Orthopnea Exam Location: [facility]. Interpretation Summary Left ventricle is of normal size. Wall thickness is mildly increased. Theleft ventricular ejection fraction is 65% by Ny's biplane. There are nosegmental wall motion abnormalities. The right ventricle is of normal size. Right ventricular systolic functionis normal. Pulmonary artery hypertension could not be assessed due toinadequate tricuspid regurgitation jet. No hemodynamiclly significant valvular disease noted on this study. See report for additional findings. No comparison study is available. Procedure Complete-[id number]. Satisfactory quality. Left Ventricle Left ventricle is of normal size. Wall thickness is mildly increased.There is no left ventricular outflow tract obstruction. There is no ventricular septaldefect. Left ventricular systolic function is normal. The left ventricularejection fraction is 65% by Ny's biplane. There are no segmental wall motion abnormalities. Right Ventricle The right ventricle is of normal size. Right ventricular systolic functionis normal. Left Atrium The left atrium is normal. No abnormality of the interatrial septum isidentified. Right Atrium The right atrium is normal. Aortic Valve The aortic valve is tricuspid. The aortic valve is mildly thickened. Thereis no aortic stenosis. There is no aortic regurgitation. Mitral Valve The mitral valve is structurally normal. There is no mitral stenosis.There is trace mitral regurgitation. Tricuspid Valve The tricuspid valve is structurally normal. There is trace tricuspid regurgitation. Pulmonic Valve The pulmonic valve appears to be structurally normal. There is no pulmonicvalve regurgitation. Great Arteries The diameter at the level of the sinuses of Valsalva is 3.3 cm. Themaximum diameter of the proximal ascending aorta is 3.5 cm. The pulmonary arteryis not well visualized. Venous Inferior vena cava is normal in size. Inferior vena cava collapse greaterthan 50% with respiration. Pericardium/Pleural There is a trivial pericardial effusion. Hemodynamics Pulmonary artery hypertension could not be assessed due to inadequatetricuspid regurgitation jet. The estimated right atrial pressure is 3mmHg. Leftventricular filling pressure is normal. Ejection Fraction 2D Measurements Volumes EF(MOD-bp): 64.6 % IVSd: 1.4 cm LAV(MOD-bp)Indexed: LVIDd: 3.4 cm LVIDs: 3.0 cm 21.3 ml/m2 LVPWd: 1.2 cm RA A4Cs_phl: 12.5cm2 EDV(MOD-bp)Indexed: RWT: 0.71 {ratio} LV mass(C)d: 154.7 grams 37.7 ml/m2 LV mass(C)dI: 96.8 grams/m2 ESV(MOD-bp)Indexed: Ao root diam: 3.3 cm 13.4 ml/m2 Ao root diam index: 2.1 SV(LVOT): 58.1ml asc Aorta Diam: 3.5 cm LVOT diam: 1.9 cm SI(LVOT): 36.3ml/m2 TAPSE_phl: 2.1 cm Doppler LV V1 VTI: 19.8 cm Ao V2 VTI: 23.0 cm Ao Max: 148.8 cm/sec Ao valve max: 8.9 mmHg Ao valve mean: 4.8 mmHg MV E max edu: 66.7 cm/sec MV A max edu: 94.4 cm/sec MV E/A: 0.71 MV dec time: 0.17 sec Lat Peak E' Edu: 10.1 cm/sec E/e' (lat): 6.6 Med Peak E' Edu: 11.2 cm/sec E/e' (med): 6.0 E/e' Average: 6.3 GALINDO(I,D): 2.5 cm2 Dimensionless index Aov: 0.86 I WMSI = 1.00 % Normal = 100 SegmentsSize X - Cannot 2 - 4 - 1-2small Interpret 1 - Normal Hypokinetic 3 - Akinetic Dyskinetic 3-5moderate 5 - 6-14large Aneurysmal 15-16diffuse Jessica A Daryl MD ECHO ORDERABLES * (ABNORMAL) CBC (with Diff) (01/17/2024 4:23 AM EDT) White Blood Cell 13.72(H) 4.00 - 9.50 x10(3)/mc L 01/17/2024 4:39 AM [facility] Red Blood Cell 4.54 4.00 - 5.21 x10(6)/mc L 01/17/2024 4:39 AM [facility] Hemoglobin 13.3 11.7 - 15.5 g/dL 01/17/2024 4:39 AM [facility] Hematocrit 41.5 35.7 - 45.8 % 01/17/2024 4:39 AM [facility] Mean Cell Volume 91.4 82.6 - 94.4 fL 01/17/2024 4:39 AM [facility] Mean Cell Hemoglobin 29.3 27.1 - 32.0 pg 01/17/2024 4:39 AM [facility] Mean Cell Hemoglobin Concentration 32.0 31.7 - 35.0 g/dL 01/17/2024 4:39 AM [facility] Platelet 376(H) 145 - 357 x10(3)/mc L 01/17/2024 4:39 AM [facility] Mean Platelet Volume 8.8 7.6 - 12.9 fL 01/17/2024 4:39 AM [facility] RDW Standard Deviation 50.1(H) 37.0 - 46.0 fL 01/17/2024 4:39 AM [facility] RDW coefficient of variation 14.9(H) 11.5 - 14.1 % 01/17/2024 4:39 AM [facility] NRBC% auto 0.0 % 01/17/2024 4:39 AM [facility] NRBC Absolute 0.00 0.00 - 0.00 x10(3)/mc L 01/17/2024 4:39 AM EDT [facility] Neutrophil % 68.1 % 01/17/2024 4:39 AM EDT [facility] Neutrophil Absolute (ANC) - Automated 9.35(H) 1.70 - 6.10 x10(3)/mc L 01/17/2024 4:39 AM EDT [facility] Lymph % 24.9 % 01/17/2024 4:39 AM EDT [facility] Lymph Absolute 3.42(H) 0.90 - 3.20 x10(3)/mc L 01/17/2024 4:39 AM EDT [facility] Monocyte % 5.4 % 01/17/2024 4:39 AM EDT [facility] Monocyte Absolute 0.74 0.30 - 0.90 x10(3)/mc L 01/17/2024 4:39 AM EDT [facility] Eos % 0.7 % 01/17/2024 4:39 AM EDT [facility] Eos Absolute 0.09 0.00 - 0.40 x10(3)/mc L 01/17/2024 4:39 AM EDT [facility] Basophil % 0.2 % 01/17/2024 4:39 AM EDT [facility] Baso Absolute 0.03 0.00 - 0.10 x10(3)/mc L 01/17/2024 4:39 AM EDT [facility] Immature Gran % 0.7 % 4:39 AM EDT [facility] Immature Gran Absolute 0.09(H) 0.00 - 0.04 x10(3)/mc L 01/17/2024 4:39 AM EDT [facility] Blood VENOUS BLOOD SPECIMEN / Unknown IP Care Team Draw / Unknown 01/17/2024 4:23 AM EDT 01/17/2024 4:29 AM EDT Lalo Moore DO HEMATOLOGY ORDERAB LES [facility] [place] [address] * (ABNORMAL) Basic Metabolic Panel (01/17/2024 4:23 AM EDT) Glucose 144 65 - 199 mg/dL 01/17/2024 5:00 AM EDT [facility] Comment:Glucose Concentratio n >=200 mg/dL plus symptoms is consistent with Diabetes Mellitus. Blood Urea Nitrogen 24(H) 8 - 18 mg/dL 01/17/2024 5:00 AM EDT [facility] Creatinine 0.89 0.70 - 1.20 mg/dL 01/17/2024 5:00 AM [facility] Sodium 137 135 - 145 mMol/L 01/17/2024 5:00 AM [facility] Potassium 3.6 3.5 - 5.0 mMol/L 01/17/2024 5:00 AM [facility] Chloride 94(L) 98 - 107 mMol/L 01/17/2024 5:00 AM [facility] Carbon Dioxide 35(H) 22 - 31 mMol/L 01/17/2024 5:00 AM [facility] Anion Gap 8 5 - 15 mMol/L 01/17/2024 5:00 AM [facility] Calcium 9.9 8.5 - 10.5 mg/dL 01/17/2024 5:00 AM [facility] Est Glomerular Filtration Rate - Female 69 mL/min/1. 73 m?? 01/17/2024 5:00 AM [facility] Comment: This patient's estimated GFR was [...] Foundation Blood VENOUS BLOOD SPECIMEN / Unknown IP Care Team Draw / Unknown 01/17/2024 4:23 AM EDT 01/17/2024 4:29 AM EDT Lalo Moore DO CHEMISTRY ORDERABL ES [facility] [place] [address] * pro-Brain Natriuretic Peptide (01/15/2024 8:05 PM EDT) NT-proBNP 65 <=124 pg/mL 01/15/2024 10:41 PM EDT [facility] Blood VENOUS BLOOD SPECIMEN / Unknown IP Care Team Draw / Unknown 01/15/2024 8:05 PM EDT 01/15/2024 8:21 PM EDT Carlos Cruz MD CHEMISTRY ORDERABLES Performing Organization Address City/[facility]/ZIP Co de Phone Number [facility] [place] [address] * Troponin - Single (01/15/2024 8:05 PM EDT) Troponin-T, High Sensitivity 10 <=14 ng/L 01/15/2024 8:53 PM EDT [facility] Comment: This patient's troponin T [...] troponin value can be found in the [facility] Laboratory Test Catalog Troponin - https://one-.testcatalog.org/catalogs/565/files/06746 Reference: Fourth [place] Definition of Myocardial Infarction. Journal of the [place] [employer] 2018;72:4751-1001 Blood VENOUS BLOOD SPECIMEN / Unknown IP Care Team Draw / Unknown 01/15/2024 8:05 PM EDT 01/15/2024 8:21 PM EDT Carlos Cruz MD CHEMISTRY ORDERABLES Performing Organization Address [facility] Co de Phone Number [facility] [place] [address] * Alanine Aminotransferase (01/15/2024 1:37 PM EDT) Alanine Aminotransferase 25 0 - 30 unit/L 01/15/2024 6:33 PM EDT [facility] Blood VENOUS BLOOD SPECIMEN / Unknown IP Care Team Draw / Unknown 01/15/2024 1:37 PM EDT 01/15/2024 1:49 PM EDT Ulises Perez MD CHEMISTRY ORDERABLES Performing Organization Address [facility]/ZIP Co de Phone Number [facility] [place] [address] * Aspartate Aminotransferase (01/15/2024 1:37 PM EDT) Aspartate Aminotransferase 28 <=30 unit/L 01/15/2024 6:34 PM EDT [facility] Blood VENOUS BLOOD SPECIMEN / Unknown IP Care Team Draw / Unknown 01/15/2024 1:37 PM EDT 01/15/2024 1:49 PM EDT Ulises Perez MD CHEMISTRY ORDERABLES Performing Organization Address City/[facility]/ZIP Co de Phone Number [facility] [place] [address] * (ABNORMAL) Alkaline Phosphatase (01/15/2024 1:37 PM EDT) Pathologist [facility] Alkaline Phosphatase 117(H) 35 - 105 unit/L 01/15/2024 6:31 PM EDT [facility] Blood VENOUS BLOOD SPECIMEN / Unknown IP Care Team Draw / Unknown 01/15/2024 1:37 PM EDT 01/15/2024 1:49 PM EDT Ulises Perez MD CHEMISTRY ORDERABLES [facility] [place] [address] * Potassium (01/15/2024 1:37 PM EDT) [facility] Potassium 3.9 3.5 - 5.0 mMol/L 01/15/2024 6:25 PM EDT [facility] Blood VENOUS BLOOD SPECIMEN / Unknown IP Care Team Draw / Unknown 01/15/2024 1:37 PM EDT 01/15/2024 1:49 PM EDT Ulises Perez MD CHEMISTRY ORDERABLES [facility] [place] [address] * (ABNORMAL) Troponin-T, High Sensitivity 1 Hour (01/15/2024 1:37 PM EDT) [facility] Troponin-T, High Sensitivity 15(H) <=14 ng/L 01/15/2024 3:41 PM EDT [facility] Comment: This patient's troponin T [...] troponin value can be found in the [facility] Test Catalog Troponin - https://one-.testcatalog.org/catalogs/565/files/20520 Reference: Fourth [place] Definition of Myocardial Infarction. Journal of the [place] [employer] 2018;72:8708-9379 Troponin-T, HS 1 hr delta 01/15/2024 3:41 PM EDT [facility] Comment:Delta troponin value not calculated, sample collected outside of delta calculation time limit. Blood VENOUS BLOOD SPECIMEN / Unknown IP Care Team Draw / Unknown 01/15/2024 1:37 PM EDT 01/15/2024 1:49 PM EDT Ulises Perez MD CHEMISTRY ORDERABLES [facility] [place] [address] * (ABNORMAL) D-Dimer, Quantitative (01/15/2024 1:37 PM EDT) D-Dimer 562(H) 0 - 500 FEU ng/ml 01/15/2024 2:01 PM EDT [facility] Comment: The D-Dimer assay is used to aid in the diagnosis of deep vein thrombosis and pulmonary embolism. A normal D-Dimer result (less than 500 FEU ng/mL) has a negative predictive value of approximately 95% for the exclusion of acute PE and DVT when there is a low to moderate pretest probability. Blood VENOUS BLOOD SPECIMEN / Unknown IP Care Team Draw / Unknown 01/15/2024 1:37 PM EDT 01/15/2024 1:49 PM EDT Ulises Perez MD HEMATOLOGY ORDERABLE S [facility] [place] [address] * (ABNORMAL) Blood Gas, Venous POC (01/15/2024 1:00 PM EDT) pH, Venous 7.41 7.32 - 7.42 01/15/2024 1:01 PM EDT [facility] PCO2, Venous 47 38 - 58 mmHg 01/15/2024 1:01 PM EDT [facility] PO2, Venous 57 16 - 65 mmHg 01/15/2024 1:01 PM EDT [facility] Bicarbonate, Venous 29.4 22 - 31 mmol/L 01/15/2024 1:01 PM EDT [facility] Base Excess, Venous 4.9(H) 1.9 - 4.5 mmol/L 01/15/2024 1:01 PM EDT [facility] Hemoglobin, Venous 13.6 11.7 - 15.5 g/dL 01/15/2024 1:01 PM EDT [facility] Oxyhemoglobin, Venous 86.8 % 01/15/2024 1:01 PM EDT [facility] Carboxyhemoglobin , Venous 3.5 % 01/15/2024 1:01 PM EDT [facility] Comment: Nonsmokers: 0.5-1.5% COHB ?? Smokers: Variable ??but usually less than 10% ?? Toxic: 20-30% COHB ?? Lethal: Greater than 60% COHB Methemoglobin, Venous 0.2 <=1.5 % 01/15/2024 1:01 PM EDT [facility] Sodium, Venous 138 135 - 145 mmol/L 01/15/2024 1:01 PM EDT [facility] Potassium, Venous 5.1(H) 3.5 - 5.0 mmol/L 01/15/2024 1:01 PM EDT [facility] Chloride, Venous 99 98 - 107 mmol/L 01/15/2024 1:01 PM EDT [facility] Glucose, Venous 164 65 - 199 mg/dL 01/15/2024 1:01 PM EDT [facility] Comment:Glucose Concentratio n >=200 mg/dL plus symptoms is consistent with Diabetes Mellitus. Lactate, Venous 1.9 0.5 - 2.2 mmol/L 01/15/2024 1:01 PM EDT [facility] Ionized Calcium, Venous 1.13(L) 1.15 - 1.33 mmol/L 01/15/2024 1:01 PM EDT [facility] Blood VENOUS BLOOD SPECIMEN / Unknown 01/15/2024 1:00 PM EDT 01/15/2024 1:01 PM EDT Ulises Perez MD POINT OF CARE TEST O RDERABLES [facility] [place] [address] * XR Chest PA & Lateral (Generic) (01/15/2024 12:38 PM EDT) [employer] WORKSTATION ID [id number] RAD Anatomical Region Laterality Modality Chest N/A Digital Radiogra phy Impressions 01/15/2024 12:49 PM EDT Mild congestive heart failure / fluid overload. Thank you for letting us participate in the care of this patient. ??If you are a health care provider and have any questions regarding this report, please contact the number below. ??For patients who have questions please contact the health personal care aide that requested your imaging first. ? Narrative 01/15/2024 12:49 PM EDT EXAMINATION: XR CHEST PA AND LATERAL (GENERIC) CLINICAL HISTORY: 74-year-old female with shortness of breath. TECHNIQUE: PA and lateral views of the chest COMPARISON: There is no similar prior examination provided for comparison. FINDINGS: There is a curvilinear band of scarring at the left lung base laterally. ??There is prominent interstitial markings with associated cephalization of pulmonary vasculature. ??There is no pleural effusion or pneumothorax. The trachea is midline. ??Hilar structures are within normal limits. The cardia mediastinal contours are within normal limits. ??The cardiac silhouette is at the upper limits of normal for size. Visualized structures within the superior abdomen inferior neck are within normal limits. There is a convex right scoliosis of the thoracolumbar spine with endplate sclerosis and osteophyte formation. Procedure Note Brandon Goldberg DO - 01/25/2024 EXAMINATION: XR CHEST PA AND LATERAL (GENERIC) CLINICAL HISTORY: 74-year-old female with shortness of breath. TECHNIQUE: PA and lateral views of the chest COMPARISON: There is no similar prior examination provided forcomparison. FINDINGS: There is a curvilinear band of scarring at the left lung base laterally.There is prominent interstitial markings with associated cephalization ofpulmonary vasculature. There is no pleural effusion or pneumothorax. The trachea is midline. Hilar structures are within normal limits. The cardia mediastinal contours are within normal limits. The cardiac silhouette is at the upper limits of normal for size. Visualized structures within the superior abdomen inferior neck arewithin normal limits. There is a convex right scoliosis of the thoracolumbar spine withendplate sclerosis and osteophyte formation. IMPRESSION Mild congestive heart failure / fluid overload. Thank you for letting us participate in the care of this patient. If youare a health care provider and have any questions regarding this report,please contact the number below. For patients who have questions please contactthe health personal care aide that requested your imaging first. Ulises Perez MD IMG DX ORDERABLES * pro-Brain Natriuretic Peptide (01/15/2024 12:32 PM EDT) NT-proBNP 70 <=124 pg/mL 01/15/2024 2:50 PM EDT [facility] Blood VENOUS BLOOD SPECIMEN / Unknown Venipuncture / Unknown 01/15/2024 12:32 PM EDT 01/15/2024 12:52 PM EDT Ulises Perez MD CHEMISTRY ORDERABLES [facility] [place] [address] * (ABNORMAL) Comprehensive metabolic panel (01/15/2024 12:32 PM EDT) Glucose 171 65 - 199 mg/dL 01/15/2024 2:50 PM EDT [facility] Comment:Glucose Concentratio n >=200 mg/dL plus symptoms is consistent with Diabetes Mellitus. Blood Urea Nitrogen 26(H) 8 - 18 mg/dL 01/15/2024 2:50 PM EDT [facility] Creatinine 0.77 0.70 - 1.20 mg/dL 01/15/2024 2:50 PM EDT [facility] Sodium 135 135 - 145 mMol/L 01/15/2024 2:50 PM EDT [facility] Potassium 01/15/2024 2:50 PM EDT [facility] Comment:Unable to report due to hemolysis. Chloride 99 98 - 107 mMol/L 01/15/2024 2:50 PM EDT [facility] Carbon Dioxide 25 22 - 31 mMol/L 01/15/2024 2:50 PM EDT [facility] Anion Gap 11 5 - 15 mMol/L 01/15/2024 2:50 PM EDT [facility] Calcium 9.3 8.5 - 10.5 mg/dL 01/15/2024 2:50 PM EDT [facility] Protein, Total 7.5 6.1 - 8.0 g/dL 01/15/2024 2:50 PM EDT [facility] Albumin 3.8 3.2 - 5.2 g/dL 01/15/2024 2:50 PM EDT [facility] Aspartate Aminotransferase 01/15/2024 2:50 PM EDT [facility] Comment:Unable to report due to hemolysis. Alanine Aminotransferase 01/15/2024 2:50 PM EDT [facility] Comment:Unable to report due to hemolysis. Alkaline Phosphatase 02/2024 2:50 PM EDT [facility] Comment:Unable to report due to hemolysis. Bilirubin, Total <0.2 <=1.3 mg/dL 01/15/2024 2:50 PM EDT [facility] Est Glomerular Filtration Rate - Female 82 mL/min/1. 73 m?? 01/15/2024 2:50 PM EDT [facility] Comment: This patient's estimated GFR [...] BLOOD SPECIMEN / Unknown Venipuncture / Unknown 01/15/2024 12:32 PM EDT 01/15/2024 12:52 PM EDT Ulises Perez MD CHEMISTRY ORDERABLES [facility] [place] [address] * (ABNORMAL) CBC (with Diff) (01/15/2024 12:32 PM EDT) White Blood Cell 13.79(H) 4.00 - 9.50 x10(3)/mc L 01/15/2024 1:15 PM [facility] Red Blood Cell 4.26 4.00 - 5.21 x10(6)/mc L 01/15/2024 1:15 PM [facility] Hemoglobin 12.5 11.7 - 15.5 g/dL 01/15/2024 1:15 PM [facility] Hematocrit 38.5 35.7 - 45.8 % 01/15/2024 1:15 PM [facility] Mean Cell Volume 90.4 82.6 - 94.4 fL 01/15/2024 1:15 PM [facility] Mean Cell Hemoglobin 29.3 27.1 - 32.0 pg 01/15/2024 1:15 PM [facility] Mean Cell Hemoglobin Concentration 32.5 31.7 - 35.0 g/dL 01/15/2024 1:15 PM [facility] Platelet 353 145 - 357 x10(3)/mc L 01/15/2024 1:15 PM [facility] Mean Platelet Volume 9.3 7.6 - 12.9 fL 01/15/2024 1:15 PM [facility] RDW Standard Deviation 51.2(H) 37.0 - 46.0 fL 01/15/2024 1:15 PM [facility] RDW coefficient of variation 15.6(H) 11.5 - 14.1 % 01/15/2024 1:15 PM [facility] NRBC% auto 0.0 % 01/15/2024 1:15 PM [facility] NRBC Absolute 0.00 0.00 - 0.00 x10(3)/mc L 01/15/2024 1:15 PM [facility] Neutrophil % 87.8 % 01/15/2024 1:15 PM [facility] Neutrophil Absolute (ANC) - Automated 12.10(H) 1.70 - 6.10 x10(3)/mc L 01/15/2024 1:15 PM EDT [facility] Lymph % 9.4 % 01/15/2024 1:15 PM EDT [facility] Lymph Absolute 1.30 0.90 - 3.20 x10(3)/mc L 01/15/2024 1:15 PM EDT [facility] Monocyte % 1.7 % 01/15/2024 1:15 PM EDT [facility] Monocyte Absolute 0.24(L) 0.30 - 0.90 x10(3)/mc L 01/15/2024 1:15 PM EDT [facility] Eos % 0.1 % 01/15/2024 1:15 PM EDT [facility] Eos Absolute 0.02 0.00 - 0.40 x10(3)/mc L 01/15/2024 1:15 PM EDT [facility] Basophil % 0.3 % 01/15/2024 1:15 PM EDT [facility] Baso Absolute 0.04 0.00 - 0.10 x10(3)/mc L 01/15/2024 1:15 PM EDT [facility] Immature Gran % 0.7 % 1:15 PM EDT [facility] Immature Gran Absolute 0.09(H) 0.00 - 0.04 x10(3)/mc L 01/15/2024 1:15 PM EDT [facility] Blood VENOUS BLOOD SPECIMEN / Unknown Venipuncture / Unknown 01/15/2024 12:32 PM EDT 01/15/2024 12:52 PM EDT Ulises Perez MD HEMATOLOGY ORDERABLE S [facility] [place] [address] * EKG 12 Lead (01/15/2024 12:21 PM EDT) INTERPRETATION ?[facility] ? The clinical documentation you are accessing DOES NOT BELONG TO THIS PATIENT. ? This information remains in the medical record as an audit trail. ? For questions or disclosure of this information, contact the recreational aide Records. ? At [facility] please call [phone]. ? For [facility], please contact the appropriate HIS Director Of Strategic Alliances. ? MUSE SYSTEM 01/15/2024 12:2 1 PM EDT 01/21/2024 1:25 PM EDT Ulises Perez MD ECG ORDERABLES MUSE SYSTEM documented in this encounter Visit Diagnoses Diagnosis Orthopnea Acute hypoxic respiratory failure documented in this encounter Admitting Diagnoses Diagnosis COPD exacerbation Obstructive chronic bronchitis with exacerbation documented in this encounter Administered Medications Inactive Administered Medications - up to 3 most recent administrations Medication Order MAR Action Action Date Dose Rate Site acetaminophen (Tylenol) tablet 650 mg 650 mg, Oral, EVERY 6 HOURS PRN, Starting on 01/16/24 at 0216, Until 01/19/24 at 1507, Pain, Fever, Administer for pain or temperature greater than or equal to 38.2 degrees Celsius. Maximum daily dose of acetaminophen from all sources not to exceed 4,000 mg. When ordered for pain, acetaminophen should be given even when other ordered pain medications are indicated., Routine Given 01/19/2024 8:16 AM EDT 650 mg Given 01/19/2024 1:21 AM EDT 650 mg Given 01/18/2024 5:38 AM EDT 650 mg budesonide-formoteroL (Symbicort) 160-4.5 mcg/actuation inhaler 2 Inhalation 2 .Inhalation , Inhalation, 2 TIMES DAILY, First dose on Thu01/16/24 at 0230, Until Discontinued, Prime inhaler before first use or if has not been used for more than 5 days. Shake well prior to each use. Rinse mouth with water (spit out without swallowing) after each use., Routine Given 01/19/2024 8:19 AM EDT 2 .I nhalation Given 01/18/2024 8:17 PM EDT 2 .Inhalation Given 01/18/2024 9:12 AM EDT 2 .Inhalation camphor-methyl salicyl-menthoL (Bengay Ultra Strength) 4-30-10 % cream Topical (Top), 2 TIMES DAILY, First dose on Thu01/18/24 at 1045, Until Discontinued, Application Site: R Shoulder Given 01/19/2024 8:17 AM EDT Given 01/18/2024 8:17 PM EDT Given 01/18/2024 11:20 AM EDT cephALEXin (Keflex) capsule 250 mg 250 mg, Oral, DAILY, First dose on 01/16/24 at 1500, Until Discontinued, Routine, Indication for (Active or Suspected): Urinary Tract/Pyelonephritis / chronic suppression Given 01/19/2024 8:16 AM EDT 2 50 mg Given 01/18/2024 9:12 AM EDT 250 mg Given 01/17/2024 8:09 AM EDT 250 mg enoxaparin (Lovenox) (40 mg/0.4 mL) subcutaneous injection 40 mg 40 mg, Subcutaneous, NIGHTLY, First dose on Thu01/16/24 at 2100, Until Discontinued, Routine Given 01/18/2024 8:16 PM EDT 40 mg Given 01/17/2024 8:20 PM EDT 40 mg Given 01/16/2024 8:06 PM EDT 40 mg escitalopram (Lexapro) tablet 10 mg 10 mg, Oral, DAILY, First dose on 01/16/24 at 0900, Until Discontinued, Routine Given 01/19/2024 8:15 AM EDT 10 mg Given 01/18/2024 8:40 AM EDT 10 mg Given 01/17/2024 8:09 AM EDT 10 mg furosemide (Lasix) (10 mg/mL) injection 120 mg 120 mg, Intravenous, ONCE, 1 dose, On 01/18/24 at 1015 Given 01/18/2024 10:11 AM EDT 120 mg furosemide (Lasix) (10 mg/mL) injection 20 mg 20 mg, Intravenous, ONCE, 1 dose, On Thu01/15/24 at 1510 Given 01/15/2024 3:14 PM EDT 20 mg furosemide (Lasix) (10 mg/mL) injection 20 mg 20 mg, Intravenous, ONCE, 1 dose, On Thu01/15/24 at 2210 Given 01/15/2024 10:04 PM EDT 20 mg furosemide (Lasix) (10 mg/mL) injection 40 mg 40 mg, Intravenous, DAILY, First dose on Thu01/16/24 at 0900, Until Discontinued Given 01/16/2024 10:45 AM EDT 40 mg furosemide (Lasix) (10 mg/mL) injection 80 mg 80 mg, Intravenous, ONCE, 1 dose, On Thu01/16/24 at 1800 Given 01/16/2024 6:17 PM EDT 80 mg furosemide (Lasix) (10 mg/mL) injection 80 mg 80 mg, Intravenous, ONCE, 1 dose, On Thu01/17/24 at 0815 Given 01/17/2024 8:10 AM EDT 80 mg furosemide (Lasix) (10 mg/mL) injection 80 mg 80 mg, Intravenous, ONCE, 1 dose, On Thu01/17/24 at 1515 Given 01/17/2024 3:13 PM EDT 80 mg guaiFENesin ER (Mucinex) tablet 600 mg 600 mg, Oral, EVERY 12 HOURS PRN, Starting on Thu01/17/24 at 0819, Until Thu01/19/24 at 1507, for congestion, DO NOT CRUSH OR OPEN, Routine Given 01/18/2024 8:44 AM EDT 600 mg Given 01/17/2024 9:37 AM EDT 600 mg ipratropium-albuteroL (Duoneb) 0.5 mg-3 mg(2.5 mg base)/3 mL nebulizer solution 3 mL 3 mL, Nebulization, ONCE, 1 dose, On Thu01/15/24 at 1900, STAT Given 01/15/2024 7:00 PM EDT 3 mLs ipratropium-albuteroL (Duoneb) 0.5 mg-3 mg(2.5 mg base)/3 mL nebulizer solution 3 mL 3 mL, Nebulization, EVERY 4 HOURS, First dose on 01/16/24 at 0155, Until Discontinued, Routine Given 01/19/2024 8:19 AM EDT 3 mLs Given 01/19/2024 3:06 AM EDT 3 mLs Given 01/18/2024 11:42 PM EDT 3 mLs lidocaine (Lidoderm) 5% patch 1 patch 1 patch, Transdermal, Administer over 12 Hours, EVERY 24 HOURS, First dose on 01/16/24 at 1300, Until Discontinued, Apply patch(es) for 12 hours, and then remove for 12 hours., Routine Patch Applied 01/19/2024 8:17 AM EDT 1 patch 04- Shoulder (Right) Patch Applied 01/18/2024 8:39 AM EDT 1 patch 04- Shoulder (Right) Patch Applied 01/17/2024 3:13 PM EDT 1 patch 04- Shoulder (Right) nicotine (Nicoderm CQ) 14 mg/24 hr patch 14 mg 14 mg (1 patch), Transdermal, Administer over 24 Hours, DAILY, First dose on 01/16/24 at 1300, Until Discontinued, Apply new patch to clean, dry, hair-free skin on the upper body or upper outer arm; each patch should be applied to a different site., Routine Patch Applied 01/19/2024 8:18 AM EDT 14 mg 10- Arm Upper (Right) Patch Applied 01/18/2024 8:38 AM EDT 14 mg 09- Arm Upper (Left) Patch Applied 01/17/2024 8:09 AM EDT 14 mg 10- Arm Upper (Right) nicotine polacrilex (Nicorette) gum 2 mg 2 mg, Buccal, EVERY 2 HOURS PRN, Starting on Thu01/15/24 at 1819, Until Thu01/19/24 at 1507, Smoking cessation, Chew gum slowly. Do not swallow. Maximum of 48 mg/day., Routine Given 01/16/2024 12:48 AM EDT 2 m g Given 01/15/2024 6:24 PM EDT 2 mg pantoprazole EC (Protonix) tablet 40 mg 40 mg, Oral, DAILY, First dose on 01/16/24 at 0900, Until Discontinued, DO NOT CRUSH OR OPEN, Routine Given 01/19/2024 8:15 AM EDT 40 mg Given 01/18/2024 8:40 AM EDT 40 mg Given 01/17/2024 8:09 AM EDT 40 mg potassium chloride ER (Klor-Con M) crystal tablet 40 mEq 40 mEq, Oral, ONCE, 1 dose, On Thu01/17/24 at 0815, potassium chloride ER particle/crystal tablets (Klor-Con M) may be broken in half and each half swallowed separately. Tablets can be dissolved in ~4 ounces of water; allow ~2 minutes to dissolve, stir well and drink immediately. Do not crush, chew, or suck on tablet., Routine Given 01/17/2024 8:09 AM EDT 40 mEq potassium chloride ER (Klor-Con M) crystal tablet 40 mEq 40 mEq, Oral, EVERY 4 HOURS, 2 doses, First dose on Thu01/18/24 at 1015, Last dose on Thu01/18/24 at 1415, potassium chloride ER particle/crystal tablets (Klor-Con M) may be broken in half and each half swallowed separately. Tablets can be dissolved in ~4 ounces of water; allow ~2 minutes to dissolve, stir well and drink immediately. Do not crush, chew, or suck on tablet., Routine Given 01/18/2024 1:30 PM EDT 40 mEq Given 01/18/2024 10:11 AM EDT 40 mEq pramipexole (Mirapex) tablet 1.5 mg 1.5 mg, Oral, 2 TIMES DAILY, First dose on 01/16/24 at 2100, Until Discontinued, Routine Given 01/19/2024 8:15 AM EDT 1.5 mg Given 01/18/2024 8:17 PM EDT 1.5 mg Given 01/18/2024 8:39 AM EDT 1.5 mg predniSONE (Deltasone) tablet 10 mg 10 mg, Oral, DAILY, First dose on 01/16/24 at 1005, Until Discontinued, Routine Given 01/18/2024 8:40 AM EDT 10 mg Given 01/17/2024 8:09 AM EDT 10 mg Given 01/16/2024 1:58 PM EDT 10 mg predniSONE (Deltasone) tablet 5 mg 5 mg, Oral, DAILY, First dose (after last modification) on Thu01/19/24 at 0900, Until Discontinued, Routine Given 01/19/2024 8:15 AM EDT 5 mg sodium chloride (Toad Hop) 0.65 % nasal spray 1 spray 1 spray, Each Nare, 2 TIMES DAILY PRN, Starting on Thu01/18/24 at 1600, Until Thu01/19/24 at 1507, Congestion, Routine Given 01/18/2024 6:48 PM EDT 1 spray sodium chloride 0.9 % (flush) (BD PosiFlush Normal Saline 0.9) flush 5 mL 5 mL, Intravenous, 2 TIMES DAILY, First dose on Thu01/16/24 at 0235, Until Discontinued, Routine Given 01/19/2024 8:18 AM EDT 5 mLs Given 01/18/2024 8:18 PM EDT 5 mLs Given 01/18/2024 8:40 AM EDT 5 mLs spironolactone (Aldactone) tablet 12.5 mg 12.5 mg, Oral, DAILY, First dose on Thu01/18/24 at 1630, Until Discontinued, DO NOT SPLIT, CRUSH OR OPEN, Routine Given 01/19/2024 8:15 AM EDT 12.5 mg Given 01/18/2024 5:14 PM EDT 12.5 mg tiotropium (Spiriva Respimat) 2.5 mcg/actuation inhaler 2 puff 2 puff, Inhalation, DAILY, First dose on Thu01/16/24 at 0900, Until Discontinued, Must be primed prior to first administration, Routine Given 01/19/2024 8:16 AM EDT 2 puffs Given 01/18/2024 9:12 AM EDT 2 puffs Given 01/17/2024 8:08 AM EDT 2 puffs documented in this encounter Active and Recently Administered Medications Times are shown in EDT. Scheduled Medication Order 01/17/2024 01/18/2024 01/19/2024 budesonide-formoteroL (Symbicort) 160-4.5 mcg/actuation inhaler 2 Inhalation (CANCELED) 2 .Inhalation , Inhalation, 2 TIMES DAILY, First dose on Thu01/16/24 at 0230, Until Discontinued, Prime inhaler before first use or if has not been used for more than 5 days. Shake well prior to each use. Rinse mouth with water (spit out without swallowing) after each use., Routine 08 (Given - Provider: Maribel Gallego RN)2024 (Given - Provider: Zainab Parker RN) 911 (Given - Provider: Ana Ridley, RUPA)2017 (Given - Provider: Mirta Dejesus RN) 08 (Given - Provider: Stephani Lomas, RUPA) camphor-methyl salicyl-menthoL (Bengay Ultra Strength) 4-30-10 % cream (CANCELED) Topical (Top), 2 TIMES DAILY, First dose on Thu01/18/24 at 1045, Until Discontinued, Application Site: R [facility] 1120 (Given - Provider: Ana Ridley, RUPA)2016 (Given - Provider: Mirta Dejesus, RUPA) 816 (Given - Provider: Stephani Lomas, RUPA) cephALEXin (Keflex) capsule 250 mg (CANCELED) 250 mg, Oral, DAILY, First dose on 01/16/24 at 1500, Until Discontinued, Routine, Indication for (Active or Suspected): Urinary Tract/Pyelonephritis / chronic suppression 08 (Given - Provider: Maribel Gallego RN) 911 (Given - Provider: Ana Ridley, RUPA) 0816 (Given - Provider: Stephani Lomas, RUPA) enoxaparin (Lovenox) (40 mg/0.4 mL) subcutaneous injection 40 mg (CANCELED) 40 mg, Subcutaneous, NIGHTLY, First dose on Thu01/16/24 at 2100, Until Discontinued, Routine 2019 (Given - Provider: Zainab Parker RN) 2016 (Given - Provider: Mirta Dejesus RN) escitalopram (Lexapro) tablet 10 mg (CANCELED) 10 mg, Oral, DAILY, First dose on 01/16/24 at 0900, Until Discontinued, Routine 08 (Given - Provider: Maribel Gallego RN) 0840 (Given - Provider: Ana Ridley RN) 0815 (Given - Provider: Stephani Lomas RN) furosemide (Lasix) (10 mg/mL) injection 120 mg (COMPLETED) 120 mg, Intravenous, ONCE, 1 dose, On 01/18/24 at 1015 1011 (Given - Provider: Ana Ridley RN) furosemide (Lasix) (10 mg/mL) injection 80 mg (COMPLETED) 80 mg, Intravenous, ONCE, 1 dose, On 01/17/24 at 0815 0810 (Given - Provider: Maribel Gallego RN) furosemide (Lasix) (10 mg/mL) injection 80 mg (COMPLETED) 80 mg, Intravenous, ONCE, 1 dose, On 01/17/24 at 1515 1513 (Given - Provider: Maribel Gallego RN) ipratropium-albuteroL (Duoneb) 0.5 mg-3 mg(2.5 mg base)/3 mL nebulizer solution 3 mL (CANCELED) 3 mL, Nebulization, EVERY 4 HOURS, First dose on 01/16/24 at 0155, Until Discontinued, Routine 0124 (Given - Provider: Florian Hawk RN)0555 (Not Given - Provider: Florian Hawk RN - Reason: Patient/family refused)0947 (Given - Provider: Maribel Gallego RN)1513 (Given - Provider: Maribel Gallego RN)1807 (Given - Provider: Maribel Gallego RN)1999 (Not Given - Provider: Zainab Parker RN - Reason: See comment - Comment: given at 18mm)2315 (Given - Provider: Zainab Parker RN) 0315 (Given - Provider: Zainab Parker RN)0839 (Given - Provider: Ana Ridley RN)1210 (Given - Provider: Ana Ridley, RUPA)1600 (Not Given - Provider: Ana Ridley RN - Reason: Patient/family refused)2016 (Given - Provider: Mirta Dejesus RN)2342 (Given - Provider: Mirta Dejesus RN) 0306 (Given - Provider: Zainab Parker RN)0819 (Given - Provider: Stephani Lomas, RN)1200 (Not Given - Provider: Stephani Lomas, RN - Reason: Patient/family refused) lidocaine (Lidoderm) 5% patch 1 patch (CANCELED) 1 patch, Transdermal, Administer over 12 Hours, EVERY 24 HOURS, First dose on 01/16/24 at 1300, Until Discontinued, Apply patch(es) for 12 hours, and then remove for 12 hours., Routine 0158 (Patch Removed - Provider: Florian Hawk, RN)1513 (Patch Applied - Provider: Maribel Gallego RN) 0313 (Patch Removed - Provider: Zainab Parker RN)0839 (Patch Applied - Provider: Ana Ridley, RUPA)2039 (Patch Removed - Provider: Mirta Dejesus RN) 0817 (Patch Applied - Provider: Stephani Lomas, RN)1307 (Due: Patch Removed - Provider: Automatic Discharge Provider - Comment: Time automatically adjusted from order being discontinued) nicotine (Nicoderm CQ) 14 mg/24 hr patch 14 mg (CANCELED)(Linked Group 1) 14 mg (1 patch), Transdermal, Administer over 24 Hours, DAILY, First dose on 01/16/24 at 1300, Until Discontinued, Apply new patch to clean, dry, hair-free skin on the upper body or upper outer arm; each patch should be applied to a different site., Routine 0809 (Patch Applied - Provider: Maribel Gallego RN) 0837 (Patch Removed - Provider: Ana Ridley RN - Comment: no patch seen)0838 (Patch Applied - Provider: Ana Ridley RN) 0818 (Patch Applied - Provider: Stephani Lomas, RUPA)1307 (Due: Patch Removed - Provider: Automatic Discharge Provider - Comment: Time automatically adjusted from order being discontinued) pantoprazole EC (Protonix) tablet 40 mg (CANCELED) 40 mg, Oral, DAILY, First dose on 01/16/24 at 0900, Until Discontinued, DO NOT CRUSH OR OPEN, Routine 0809 (Given - Provider: Maribel Gallego RN) 0840 (Given - Provider: Ana Ridley RN) 0815 (Given - Provider: Stephani Lomas, RUPA) potassium chloride ER (Klor-Con M) crystal tablet 40 mEq (COMPLETED) 40 mEq, Oral, ONCE, 1 dose, On 01/17/24 at 0815, potassium chloride ER particle/crystal tablets (Klor-Con M) may be broken in half and each half swallowed separately. Tablets can be dissolved in ~4 ounces of water; allow ~2 minutes to dissolve, stir well and drink immediately. Do not crush, chew, or suck on tablet., Routine 0809 (Given - Provider: Maribel Gallego RN) potassium chloride ER (Klor-Con M) crystal tablet 40 mEq (COMPLETED) 40 mEq, Oral, EVERY 4 HOURS, 2 doses, First dose on Thu01/18/24 at 1015, Last dose on Thu01/18/24 at 1415, potassium chloride ER particle/crystal tablets (Klor-Con M) may be broken in half and each half swallowed separately. Tablets can be dissolved in ~4 ounces of water; allow ~2 minutes to dissolve, stir well and drink immediately. Do not crush, chew, or suck on tablet., Routine 1011 (Given - Provider: Ana Ridley RN)1330 (Given - Provider: Ana Ridley RN) pramipexole (Mirapex) tablet 1.5 mg (CANCELED) 1.5 mg, Oral, 2 TIMES DAILY, First dose on Thu01/16/24 at 2100, Until Discontinued, Routine 0809 (Given - Provider: Maribel Gallego RN)2019 (Given - Provider: Zainab Parker RN) 0839 (Given - Provider: Ana Ridley RN)2017 (Given - Provider: Mirta Dejesus RN) 0815 (Given - Provider: Stephani Lomas, RUPA) predniSONE (Deltasone) tablet 10 mg (CANCELED) 10 mg, Oral, DAILY, First dose on Thu01/16/24 at 1005, Until Discontinued, Routine 0809 (Given - Provider: Maribel Gallego RN) 0840 (Given - Provider: Ana Ridley RN) predniSONE (Deltasone) tablet 5 mg (CANCELED) 5 mg, Oral, DAILY, First dose (after last modification) on Thu01/19/24 at 0900, Until Discontinued, Routine 0815 (Given - Provid er: Stephani Lomas RN) sodium chloride 0.9 % (flush) (BD PosiFlush Normal Saline 0.9) flush 5 mL (CANCELED) 5 mL, Intravenous, 2 TIMES DAILY, First dose on Thu01/16/24 at 0235, Until Discontinued, Routine 0815 (Given - Provider: Maribel Gallego, RN)2020 (Given - Provider: Zainab Parker, RUPA) 08 (Given - Provider: Ana Ridley, RN)2017 (Given - Provider: Mirta Dejesus, RUPA) 0818 (Given - Provider: Stephani Lomas, RN) spironolactone (Aldactone) tablet 12.5 mg (CANCELED) 12.5 mg, Oral, DAILY, First dose on Thu01/18/24 at 1630, Until Discontinued, DO NOT SPLIT, CRUSH OR OPEN, Routine 1713 (Given - Provider: Ana Ridley, RUPA) 0815 (Given - Provider: Stephani Lomas, RN) tiotropium (Spiriva Respimat) 2.5 mcg/actuation inhaler 2 puff (CANCELED) 2 puff, Inhalation, DAILY, First dose on Thu01/16/24 at 0900, Until Discontinued, Must be primed prior to first administration, Routine 0808 (Given - Provider: Maribel Gallego, RN) 0912 (Given - Provider: Ana Ridley, RN) 0816 (Given - Provider: Stephani Lomas, RN) PRN Medication Order 01/17/2024 01/18/2024 01/19/2024 acetaminophen (Tylenol) tablet 650 mg (CANCELED) 650 mg, Oral, EVERY 6 HOURS PRN, Starting on Thu01/16/24 at 0216, Until Thu01/19/24 at 1507, Pain, Fever, Administer for pain or temperature greater than or equal to 38.2 degrees Celsius. Maximum daily dose of acetaminophen from all sources not to exceed 4,000 mg. When ordered for pain, acetaminophen should be given even when other ordered pain medications are indicated., Routine 0538 (Given - Provider: Zainab Parker RN) 012 (Given - Provider: Mirta Dejesus, RUPA)0816 (Given - Provider: Stephani Lomas, RUPA) guaiFENesin ER (Mucinex) tablet 600 mg (CANCELED) 600 mg, Oral, EVERY 12 HOURS PRN, Starting on Thu01/17/24 at 0819, Until Thu01/19/24 at 1507, for congestion, DO NOT CRUSH OR OPEN, Routine 0937 (Given - Provider: Maribel Gallego RN) 0844 (Given - Provider: Ana Ridley, RUPA) sodium chloride (Toad Hop) 0.65 % nasal spray 1 spray (CANCELED) 1 spray, Each Nare, 2 TIMES DAILY PRN, Starting on Thu01/18/24 at 1600, Until Thu01/19/24 at 1507, Congestion, Routine 1848 (Given - Provider: Ana Ridley, RUPA) Linked Groups Order Group 1: nicotine (Nicoderm CQ) 14 mg/24 hr patch 14 mg (CANCELED)Jump to med 14 mg (1 patch), Transdermal, Administer over 24 Hours, DAILY, First dose on Thu01/16/24 at 1300, Until Discontinued, Apply new patch to clean, dry, hair-free skin on the upper body or upper outer arm; each patch should be applied to a different site., Routine And nicotine (Nicoderm CQ) 14 mg/24 hr patch Patch Verification (CANCELED) Transdermal, 2 TIMES DAILY, First dose on Thu01/17/24 at 0030, Until Discontinued, Verify nicotine 14 mg/24 hr patch. documented in this encounter Care Teams Retail Warehouse Associate Relationship Specialty Start Date End Date Dilan Hernandez MD [address] [place] [address] [place] [address] PCP - General 04/30/10 documented as of this encounter
--- OUTSIDE RECORDS SUMMARY | 2024-07-07 20:07 | XMS_ITS | Encounter Summary ---
[place] [address] Care Team Providers Care Machine Castings Plasterer Name Role Phone Dilan Hernandez MD Primary Care Provider [phone] Encounter Details Date Type Department Care Team (Late st Contact Info) Description 02/01/2024 Telephone [place] [id number] Danielle Hernandez, RN Social History Tobacco Use Types Packs/Day [...] encounter Miscellaneous Notes * Telephone Encounter - Danielle Hernandez RN - 02/01/2024 10:47 AM EDTSummary: Geriatric Emergency Medicine: Recent ED visit follow-up call. The following message below was left for the patient. Alpesh. This message is for Mallorie Burgess. This is a courtesy call from the [facility] ([facility] Emergency Department's (ED) Geriatric Emergency Medicine (GEM) Resource RN. PLEASE follow all instructions that were provided to you when you were discharged from the Emergency. The instructions are within the After Visit Summary (AVS). PLEASE follow-up w/ your Primary Care Provider: Dr. Felton @ [phone] PLEASE take the medication that was prescribed for you Bactrim, an antibiotic, should be taken completely as ordered even if you begin to feel better before you've completed the entire numbers of pills. If you are having a medical emergency, hang up and dial 911. Thank you for choosing [facility] for your care. documented in this encounter Plan of Treatment Upcoming Encounters Date Type Department Care Team (Late st Contact Info) Description 07/12/2024 8:00 AM [facility] Hospital Encounter XRay at [address] [place] [address] Eliane Peterson, [place] [address] Scheduled Procedures Name Priority Associated Diagnoses Date/Ti me INJECTION, FACET JOINT, W\FLUORO, LUMBAR, 2ND LEVEL (WRVU 1) Spondylosis of lumbar region without myelopathy or radiculopathy INJECTION, FACET JOINT, W\FLUORO, LUMBAR, SINGLE (WRVU 1.52) Spondylosis of lumbar region without myelopathy or radiculopathy documented as of this encounter Visit Diagnoses Not on filedocumented in this encounter Care Teams Machine Castings Plasterer Relationship Specialty Start Date End Date Dilan Hernandez MD [address] [place] [address] Dr [place], [place] [id number] PCP - General 04/30/10 documented as of this encounter
--- OUTSIDE RECORDS SUMMARY | 2024-07-07 20:07 | XMS_ITS | Encounter Summary ---
Author Organization [facility] [place] [address] Care Team Providers Care Parts Delivery Driver Name Role Phone Dilan Hernandez MD Primary Care Provider [phone] Encounter Details Date Type Department Care Team (Late st Contact Info) Description 01/22/2024 Telephone [facility] [place] [address] Unknown None Social History Tobacco Use Types Packs/Day Years Used Date Smoking Tobacco: Every Day Cigarettes Smokeless Tobacco: Never Alcohol Use Standard Drinks/Week Comments Yes 1 (1 standard drink = 0.6 oz pur e alcohol) 1 drink a day [facility] Inpatient Questions Answer Date Recorded [...] encounter Miscellaneous Notes * Telephone Encounter - Maddy Tay - 01/22/2024 1:36 PM EDT Clinic Coverage - Reason for Call: Establish Care Referral in eDH?: Yes Reason for referral: Low back pain, unspecified back pain laterality, unspecified chronicity, unspecified whether sciatica present MRI was done on 7/22/24 and in the chart new referral was put in on 01/11/24. She is hoping to coordinate the appointment on either 02/16/24 after her Endoscopy and Colonoscopy or on 04/21/24 after her PFT and Pulmonary appointment. Advised Caller may take 5-7 Business day to review referral: Yes DO NOT SEND FOR SYMPTOMS, REFER PATIENT TO REFERRING PROVIDER! Caller Name (If other than patient): Mallorie Relationship to Patient (if other than self): Patient Callback number: [phone] Best time you are available: Any Route Per Clinic Coverage Page documented in this encounter Plan of Treatment Upcoming Encounters Date Type Department Care Team (Late st Contact Info) Description 07/12/2024 8:00 AM [facility] Encounter XRay at [address] [place] [address] [place] [address] Scheduled Procedures Name Priority Associated Diagnoses Date/Ti me INJECTION, FACET JOINT, W\FLUORO, LUMBAR, 2ND LEVEL (WRVU 1) Spondylosis of lumbar region without myelopathy or radiculopathy INJECTION, FACET JOINT, W\FLUORO, LUMBAR, SINGLE (WRVU 1.52) Spondylosis of lumbar region without myelopathy or radiculopathy documented as of this encounter Visit Diagnoses Not on filedocumented in this encounter Additional Health Concerns Infection Onset Date Last Indicated Resolved Time Rule Out COVID-19 01/27/2024 01/27/2024 01/27/2024 2:46 AM EDT documented as of this encounter Care Teams Parts Delivery Driver Relationship Specialty Start Date End Date Dilan Hernandez MD [address] [place] [address] [place] [address] PCP - General 04/30/10 documented as of this encounter
--- OUTSIDE RECORDS SUMMARY | 2024-07-07 20:07 | XMS_ITS | Encounter Summary ---
Author Organization [facility] [place] [address] Care Team Providers Care Shrimp Pond Laborer Name Role Phone Dilan Hernandez MD Primary Care Provider [phone] Encounter Details Date Type Department Care Team (Late st Contact Info) Description 01/26/2024 Telephone [facility] [place] [address] Antonia Lauren Social History Tobacco Use Types Packs/Day Years Used Date Smoking Tobacco: Every Day Cigarettes Smokeless Tobacco: Never Alcohol Use Standard Drinks/Week Comments Yes 1 (1 standard drink = 0.6 oz pur e alcohol) 1 drink a day [facility] In[facility] Questions Answer Date Recorded Does [...] encounter Miscellaneous Notes * Telephone Encounter - Antonia Lauren - 01/26/2024 8:26 AM EDT Outgoing call to Mallorie to schedule appt from referral review. m to call back [phone] documented in this encounter Plan of Treatment Upcoming Encounters Date Type Department Care Team (Late st Contact Info) Description 07/12/2024 8:00 AM EST Hospital Encounter XRay at [address] [place] [address] [place] [address] Scheduled Procedures Name Priority Associated Diagnoses Date/Ti me INJECTION, FACET JOINT, W\FLUORO, LUMBAR, 2ND LEVEL (WRVU 1) Spondylosis of lumbar region without myelopathy or radiculopathy INJECTION, FACET JOINT, W\FLUORO, LUMBAR, SINGLE (WRVU 1.52) Spondylosis of lumbar region without myelopathy or radiculopathy documented as of this encounter Visit Diagnoses Not on filedocumented in this encounter Care Teams Shrimp Pond Laborer Relationship Specialty Start Date End Date Dilan Hernandez MD [address] [place] [address] [place] [address] PCP - General 04/30/10 documented as of this encounter
--- OUTSIDE RECORDS SUMMARY | 2024-07-07 20:07 | XMS_ITS | Encounter Summary ---
Author Organization [facility] Address [facility] [place] [address] Care Team Providers Care Playground Equipment Erector Name Role Phone Dilan Hernandez MD Primary Care Provider Encounter Details Date Type Department Care Team (Latest Contact Info) Description 01/27/2024 Travel Social History Tobacco Use Types Packs/Day [...] st Contact Info) Description 07/12/2024 8:00 AM [facility] Hospital Encounter XRay at [address] [place] [address] Eliane Peterson APRN [facility] [place] [address] Scheduled Procedures Name Priority Associated Diagnoses Date/Ti [...] documented as of this encounter Care Teams Playground Equipment Erector Relationship Specialty Start Date End Date Dilan Hernnadez MD [address] [place] [address] [place] [phone] PCP - General 04/30/10 documented as of this encounter
--- OUTSIDE RECORDS SUMMARY | 2024-07-07 20:07 | XMS_ITS | Encounter Summary ---
Author Organization [facility] [place] [address] Care Team Providers Care Swimmer Name Role Phone Dilan Hernandez MD Primary Care Provider [phone] Reason for Referral * Consultation (Routine) - Canceled Specialty Diagnoses / Procedures Referred By Contrao t Referred To Contact Cardiology Diagnoses Acute heart failure with preserved ejection fraction S/P D/C - HFpEF EF 65%. PMH COPD, active tobacco use, GERD, anxiety, hyponatremia, pud. Jessica Brito MD [facility] [place] [address] [facility] [address] [place] [phone] Referral ID Status Reason Start Date Expiration Date V isits Requested Visits Authorized [id number] Canceled Consult, Test & Treat 01/25/2024 01/24/2025 12 12 Encounter Details Date Type Department Care Team (Late st Contact Info) Description 01/25/2024 [place] [address] Jessica Brito MD [facility] [place] [address] Acute heart failure with preserved ejection fraction Social History Tobacco Use Types Packs/Day Years [...] st Contact Info) Description 07/12/2024 8:00 AM [facility] Hospital Encounter XRay at [address] [place] [address] Eliane [place] [address] Scheduled Procedures Name Priority Associated Diagnoses Date/Ti me INJECTION, FACET JOINT, W\FLUORO, LUMBAR, 2ND LEVEL (WRVU 1) Spondylosis of lumbar region without myelopathy or radiculopathy INJECTION, FACET JOINT, W\FLUORO, LUMBAR, SINGLE (WRVU 1.52) Spondylosis of lumbar region without myelopathy or radiculopathy Scheduled Referrals Name Type Priority Associated Diagnoses Order Schedule Referral to Cardiology Outpatient Referral Routine Acute heart failure with preserved ejection fraction Ordered: 01/25/2024 documented as of this encounter Visit Diagnoses Diagnosis Acute heart failure with preserved ejection fraction documented in this encounter Care Teams Swimmer Relationship Specialty Start Date End Date Dilan Hernandez MD [address] [place] [address] BRY[place] Beltran [phone] PCP - General 04/30/10 documented as of this encounter
--- OUTSIDE RECORDS SUMMARY | 2024-07-07 20:07 | XMS_ITS | Encounter Summary ---
Author Organization [facility] Address [facility] [place] [address] Care Team Providers Care Size Maker Name Role Phone Dilan Hernandez MD Primary Care Provider [phone] Reason for Visit * Reason Onset Date Comments Follow-up 01/28/20[address] [facility] hosp discharge for CHF Encounter Details Date Type Department Care Team (Late st Contact Info) Description 01/28/2024 [place] [phone] Suki Zaidi, HEALTH TECH Follow-up (One week call post hosp discharge for CHF) [...] - Inhaled Oxygen Concentration - - Weight 81 kg (178 lb 9.6 oz) 01/29/2024 3:00 PM EDT Height - - Body Mass Index 46.44 01/16/2024 2:11 PM EDT documented in this encounter Miscellaneous Notes * Telephone Encounter - Suki Zaidi, HEALTH TECH - 01/29/2024 10:27 AM EDT Post-Discharge Heart Failure Phone Note Interview status: Complete Date of hospital discharge: 01/27/24 LOS: 4 days First home scale weight [...] that there is now a cardiology referral. Was the patient admitted either primarily for acute decompensated heart failure or with CHF complicating their stay? Yes What type of CHF does the patient have? HFpEF Symptoms: Ask the patient: How are you doing now compared to your last day in the hospital? Worse Patient went to the ED andhad a UTI, along with pain around chest related to cough I am going to read to you a list of symptoms. Please let me know if you have experienced any of these problems worse than usual since we last spoke with you? - Fatigue: No - Shortness of breath at rest: Yes - Exertional shortness of breath: Yes - Lower extremity edema: Yes - Abdominal distention: No If the patient endorses any of the above symptoms, ask the patient: Since we last spoke, have you spoken with a provider about your symptoms? No Read original heart failure instructions. If you are within safety range (+/- [...] you get back to your GOAL WEIGHT. Weights: Weight at discharge: Wt Readings from Last 1 Encounters: 01/19/24 79.8 kg (175 lb 14.8 oz) Do you have access to a scale? Yes If no, contact health care / medical job titles or designated office of CHF regional merchandising manager below. Do you know when and how to weigh yourself? Yes If no, reiterate same time mornings before food, after voiding. Have you been weighing and do you have a place you can record your weights? Yes What was your highest weight since discharge or last call: 182 lb Lowest home weight (enter w/ calculator): 178 lb First home weight (lb)? 179.6 lb Current weight (lb)? 178.6 Do you have torsemide accessible to you? Yes Are you taking it according to these instructions? Yes Do you have contact information for your PCP or Senior Clinician or Home Health Agency? Yes Please say [...] Message Expected time of next check in: 1 week * Telephone Encounter - Suki Zaidi CMA - 01/28/2024 9:26 AM EDT LM for patient. Will try calling again later. documented in this encounter Plan of Treatment Upcoming Encounters Date Type Department Care Team (Late st Contact Info) Description 07/12/2024 8:00 AM [facility] Hospital Encounter XRay at [address] [place] [address] [place] [address] Scheduled Procedures Name Priority Associated Diagnoses Date/Ti me INJECTION, FACET JOINT, W\FLUORO, LUMBAR, 2ND LEVEL (WRVU 1) Spondylosis of lumbar region without myelopathy or radiculopathy INJECTION, FACET JOINT, W\FLUORO, LUMBAR, SINGLE (WRVU 1.52) Spondylosis of lumbar region without myelopathy or radiculopathy documented as of this encounter Visit Diagnoses Not on filedocumented in this encounter Care Teams Size Maker Relationship Specialty Start Date End Date Dilan Hernandez MD [address] [place] [address] BRY[place] Beltran [phone] PCP - General 04/30/10 documented as of this encounter
--- OUTSIDE RECORDS SUMMARY | 2024-07-07 20:07 | XMS_ITS | Encounter Summary ---
Author Organization [facility] Address [facility] [place] [address] Care Team Providers Care Unbundler Name Role Phone Dilan Hernandez MD Primary Care Provider [phone] Encounter Details Date Type Department Care Team (Latest Contact Info) Description 01/15/2024 Travel Social History Tobacco Use Types Packs/Day [...] st Contact Info) Description 07/12/2024 8:00 AM [facility] Hospital Encounter XRay at [address] [place] [address] Eliane Peterson APRN [facility] [place] [address] Scheduled Procedures Name Priority Associated Diagnoses Date/Ti me INJECTION, FACET JOINT, W\FLUORO, LUMBAR, 2ND LEVEL (WRVU 1) Spondylosis of lumbar region without myelopathy or radiculopathy INJECTION, FACET JOINT, W\FLUORO, LUMBAR, SINGLE (WRVU 1.52) Spondylosis of lumbar region without myelopathy or radiculopathy documented as of this encounter Visit Diagnoses Not on filedocumented in this encounter Care Teams Unbundler Relationship Specialty Start Date End Date Dilan Hernandez MD [address] [place] [address] [place] [phone] PCP - General 04/30/10 documented as of this encounter
--- OUTSIDE RECORDS SUMMARY | 2024-07-07 20:07 | XMS_ITS | Encounter Summary ---
Author Organization [facility] [place] [address] Care Team Providers Care Political Research Scientist Name Role Phone Dilan Hernandez MD Primary Care Provider [phone] Encounter Details Date Type Department Care Team (Late st Contact Info) Description 12/29/2023 Telephone [facility] [place] [address] Antonia Lauren Social History Tobacco Use Types [...] * Telephone Encounter - Antonia Lauren - 12/29/2023 9:39 AM EDT Pt called stated she had an MRI done on 12/28/23 @ [facility] & will get a new referral since her one in October was deied due to no Imaging. Advised pt once we get a new referral it will needto be reviewed & then someone will call her to schedule when ready documented in this encounter Plan of Treatment Upcoming Encounters Date Type Department Care Team (Late st Contact Info) Description 07/12/2024 8:00 AM [facility] Hospital Encounter XRay at [address] [place] [address] [place] [address] Scheduled Procedures Name Priority Associated Diagnoses Date/Ti me INJECTION, FACET JOINT, W\FLUORO, LUMBAR, 2ND LEVEL (WRVU 1) Spondylosis of lumbar region without myelopathy or radiculopathy INJECTION, FACET JOINT, W\FLUORO, LUMBAR, SINGLE (WRVU 1.52) Spondylosis of lumbar region without myelopathy or radiculopathy documented as of this encounter Visit Diagnoses Not on filedocumented in this encounter Care Teams Political Research Scientist Relationship Specialty Start Date End Date Dilan Hernandez MD [address] [place] [address] [place] [phone] PCP - General 04/30/10 documented as of this encounter
--- OUTSIDE RECORDS SUMMARY | 2024-07-07 20:07 | XMS_ITS | Encounter Summary ---
Author Organization [facility] [place] [address] Care Team Providers Care Substation Electrician Supervisor Name Role Phone Dilan Hernandez MD Primary Care Provider [phone] Reason for Visit * Reason Onset Date Comments Medication Refill 01/11/2024 Encounter Details Date Type Department Care Team (Late st Contact Info) Description 01/11/2024 [place] [address] Baljinder Belcher MD [facility] [place] [address] Chronic obstructive pulmonary disease, unspecified COPD type (Primary Dx) Social History Tobacco Use Types [...] 8:00 AM EST Hospital Encounter XRay at [address] [place] [address] Eliane Peterson APRN [facility] [place] [address] Scheduled Procedures Name Priority Associated Diagnoses Date/Ti me INJECTION, FACET JOINT, W\FLUORO, LUMBAR, 2ND LEVEL (WRVU 1) Spondylosis of lumbar region without myelopathy or radiculopathy INJECTION, FACET JOINT, W\FLUORO, LUMBAR, SINGLE (WRVU 1.52) Spondylosis of lumbar region without myelopathy or radiculopathy documented as of this encounter Visit Diagnoses Diagnosis Chronic obstructive pulmonary disease, unspecified COPD type- Primary documented in this encounter Care Teams Substation Electrician Supervisor Relationship Specialty Start Date End Date Dilan Hernandez MD [address] [place] [address] [place] [phone] PCP - General 04/30/10 documented as of this encounter
--- OUTSIDE RECORDS SUMMARY | 2024-07-07 20:07 | XMS_ITS | Encounter Summary ---
Author Organization [facility] Address [facility] [place] [address] Care Team Providers Care District Court Reporter Name Role Phone Dilan Hernandez MD Primary Care Provider [phone] Reason for Visit * Reason Onset Date Comments Follow-up 01/21/2024 48 hour call pos t hosp discharge for CHF/COPD Encounter Details Date Type Department Care Team (Late st Contact Info) Description 01/21/2024 [place] [phone] Suki Zaidi CMA Follow-up (48 hour call post hosp discharge for CHF/COPD) Social [...] Telephone Encounter - Suki Zaidi CMA - 01/21/2024 11:42 AM EDT Post-Discharge Heart Failure Phone Note Interview status: Complete Date of hospital discharge: 11/21/20 LOS: 4 days First home scale weight [...] these questions to the hospitalist Dr. Brito. Was the patient admitted either primarily for acute decompensated heart failure or with CHF complicating their stay? Yes What type of CHF does the patient have? HFpEF Symptoms: Ask the patient: How are you doing now compared to your last day in the hospital? Better I am going to read to you a list of symptoms. Please let me know if you have experienced any of these problems worse than usual since we last spoke with you? - Fatigue: No - Shortness of breath at rest: No - Exertional shortness of breath: No - Lower extremity edema: No - Abdominal distention: No If the patient endorses any of the above symptoms, ask the patient: Read original heart failure instructions. If you [...] discharge: Wt Readings from Last 1 Encounters: 12/16/23 81.8 kg (180 lb 4.8 oz) Do you have access to a scale? Yes Do you know when and how to weigh yourself? Yes Have you been weighing and do you have a place you can record your weights? Yes What was your highest weight since discharge or last call: 180 lb Lowest home weight (enter w/ calculator): 179.6 lb First home weight (lb)? 179.6 lb Current weight (lb)? 180 lb Do you have torsemide accessible to you? Yes Are you taking it according to these instructions? Yes Do you have contact information for your PCP or Certified Physician'S Assistant or Home Health Agency? Yes Please say yes or no to indicate whether you acknowledge the following: - Do you know when your PCP and/or cardiology follow up appointment(s) are? Yes - Do you have transportation to and from that appointment? Yes - Did this encounter lead to a message or call to the provider? Yes If yes, to who? PCP Hospitalist Type of message sent: Message Expected time of next check in: 1 week documented in this encounter Plan of Treatment Upcoming Encounters Date Type Department Care Team (Late st Contact Info) Description 07/12/2024 8:00 AM EST Hospital Encounter XRay at [address] [place] [address] Eliane Peterson APRN [facility] [place] [address] Scheduled Procedures Name Priority Associated Diagnoses Date/Ti me INJECTION, FACET JOINT, W\FLUORO, LUMBAR, 2ND LEVEL (WRVU 1) Spondylosis of lumbar region without myelopathy or radiculopathy INJECTION, FACET JOINT, W\FLUORO, LUMBAR, SINGLE (WRVU 1.52) Spondylosis of lumbar region without myelopathy or radiculopathy documented as of this encounter Visit Diagnoses Not on filedocumented in this encounter Care Teams District Court Reporter Relationship Specialty Start Date End Date Dilan Hernandez MD [address] [place] [address] [place] [phone] PCP - General 04/30/10 documented as of this encounter
--- OUTSIDE RECORDS SUMMARY | 2024-07-07 20:07 | XMS_ITS | Encounter Summary ---
Author Organization [facility] [address] Care Team Providers Care Endocrinology Nurse Name Role Phone Dilan Hernandez MD Primary Care Provider [phone] Encounter Details Date Type Department Care Team (Late st Contact Info) Description 01/25/2024 Telephone [place] [address] Antonia Lauren Social History Tobacco Use Types Packs/Day Years Used Date Smoking Tobacco: Every Day Cigarettes Smokeless Tobacco: Never Alcohol Use Standard Drinks/Week Comments Yes 1 (1 standard drink = 0.6 oz pur e alcohol) 1 drink a day [facility] Inpatient Questions Answer Date Recorded Does Anyone [...] * Telephone Encounter - Antonia Lauren - 01/25/2024 3:20 PM EDT Mallorie called looking to establish care , She has referral that needs reviewed - MRI was done on 12/28/23 and new referral was put in on 01/11/24. She is hoping to coordinate the appointment on either 02/16/24 after her Endoscopy and Colonoscopy or on 04/21/24 after her PFT and Pulmonary appt. Sent referral for review to Adriel documented in this encounter Plan of Treatment Upcoming Encounters Date Type Department Care Team (Late st Contact Info) Description 07/12/2024 8:00 AM [facility] Hospital Encounter XRay at [address] [place] [address] Eliane Peterson, [place] [address] Scheduled Procedures Name Priority Associated Diagnoses Date/Ti me INJECTION, FACET JOINT, W\FLUORO, LUMBAR, 2ND LEVEL (WRVU 1) Spondylosis of lumbar region without myelopathy or radiculopathy INJECTION, FACET JOINT, W\FLUORO, LUMBAR, SINGLE (WRVU 1.52) Spondylosis of lumbar region without myelopathy or radiculopathy documented as of this encounter Visit Diagnoses Not on filedocumented in this encounter Care Teams Endocrinology Nurse Relationship Specialty Start Date End Date Dilan Hernandez MD [address] [place] [address] [place] [phone] PCP - General 04/30/10 documented as of this encounter
--- OUTSIDE RECORDS SUMMARY | 2024-07-07 20:07 | XMS_ITS | Encounter Summary ---
Author Organization [facility] [place] [address] Care Team Providers Care Product Development Coordinator Name Role Phone Dilan Hernandez MD Primary Care Provider [phone] Reason for Visit * Reason Comments Shortness of Breath Edema Encounter Details Date Type Department Care Team (Late st Contact Info) Description 02/08/2024 3:22 PM EDT - 02/08/2024 8:20 PM EDT [place] [address] Juliet Linares MD [facility] [address] [place] [address] Chronic obstructive pulmonary disease, unspecified COPD type [...] Sign Reading Time Taken Comments Blood Pressure 139/84 02/08/2024 8:11 PM EDT Pulse 94 02/08/2024 8:00 PM EDT Temperature 36.4 ??C (97.5 ??F) 02/08/2024 8:11 PM ED T Respiratory Rate 22 02/08/2024 8:11 PM EDT Oxygen Saturation 93% 02/08/2024 8:11 PM EDT Inhaled Oxygen Concentration - - Weight 81 kg (178 lb 9.2 oz) 02/08/2024 8:11 PM EDT Height 132.1 cm (4' 4) 02/08/2024 8:11 PM EDT Body Mass Index 46.43 02/08/2024 8:11 PM EDT documented in this encounter Discharge Instructions * Discharge Instructions* Juliet Linares MD - 02/08/2024 7:04 PM EDT Your symptoms are likely due to to your COPD. Your labs and a chest x-ray did not show any evidenceof pneumonia. It would be beneficial to follow-up with your regular doctor regarding your weight gain. Take the medications as prescribed. You should follow-up with your regular doctor as soon as possible. Return to the emergency department if you develop worsening shortness of breath, chest pain, u ncontrollable nausea, vomiting, or your condition worsens in any way. * Attachments The following attachments cannot be sent through Care Everywhere. * COPD (Haitian) documented in this encounter Medications at Time [...] morning and two at night per patient predniSONE (Deltasone) 20 mg tablet Take 2 tablets by mouth daily for 4 days. 8 tablet 02/08/2024 02/12/2024 traMADoL (Ultram) 50 mg tablet Take 50 mg by mouth every 6 hours as needed for Pain. Takes once a day 04/07/2024 celecoxib (CeleBREX) 200 mg Capsule daily. 09/25/2020 04/07/2024 UNABLE TO FIND 3 times daily. Med Name: *Restivin for Restless Leg Syndrome* 04/07/2024 MAGNESIUM ORAL Take by mouth daily. *Star Liquid form* 04/07/2024 omeprazole (PriLOSEC) 20 mg Capsule, Delayed Release(E.C.) Take 40 mg by mouth daily. 03/30/2024 documented as of this encounter ED Notes * Marge Phipps RN - 02/08/2024 7:57 PM EDT Pt SpO2 at rest on room air: 83% On 3L at rest: 93% On 3L ambulatory 87% * Breann Resendez RN - 02/08/2024 7:05 PM EDT Report To Marge GOODE. * Breann Resendez RN - 02/08/2024 5:00 PM EDT Pt w/ persistent shallow labored breaths w/ O2 3L via NC. * Juliet Linares MD - 02/08/2024 4:53 PM EDT ED Attending Note HPI: Mallorie Burgess is a 73 y.o. female who presents to the Emergency Department for evaluation of shortness of breath. Has a history of COPD and HFpEF with an EF of 65%, on 3 L of home O2 as needed, particularly at night, who presents to the ED for evaluation of 2 days of progressive shortness of breath and dyspnea on exertion. She was admitted here January 14 to for COPD exacerbation at that time was diagnosed with HFpEF. She was started on torsemide. She states that in the hospital torsemide seemed to help because it was IV but the oral formulation has not seemed to make much of a difference. She has had progressive shortness of breath over the last several days and intermittent twinges of chest discomfort lasting seconds at a time. She denies any fevers or chills. No nausea or vomiting, change in bowel or bladder function. She has had no sick contacts. Eloisa Cristina presented to emergency department on 25 January for shortness of breath and was subsequently discharged home. She is not currently on prednisone. She states that she feels like a lot of her discomfort is due to her abdomen. She says she has had weight gain of unclear etiology for quite some time and feels like this is makingit difficult for her to breathe. No significant weight international exchange coordinator the last several days. She denies a prior history of [place]. Her symptoms are worse with ambulation. No other associated symptoms. No other particular aggravating relieving features. ROS as per HPI Vitals: ED Triage Vitals BP: 116/42 [02/08/24 1507] Heart Rate: 93 [02/08/24 1507] Resp: 18 [02/08/24 1507] Temp: 36.4 ??C (97.5 ??F) [02/08/24 1507] Temp src: Tympanic [02/08/24 1507] SpO2: (!) 89 % [02/08/24 1507] O2 Device: RA [02/08/24 1507] O2 Flow Rate (L/min): 3 L/min [02/08/24 1510] Physical Exam Vitals and nursing note reviewed. HENT: Mouth/Throat: Mouth: Mucous membranes are moist. Eyes: Extraocular Movements: Extraocular movements intact. Cardiovascular: Rate and Rhythm: Normal rate and regular rhythm. Pulmonary: Breath sounds: No rhonchi. Comments: Decreased breath sounds throughout with faint expiratory wheezes. Chest: Chest wall: No tenderness. Abdominal: Palpations: Abdomen is soft. Tenderness: There is no abdominal tenderness. There is no guarding. Musculoskeletal: General: Normal range of motion. Comments: Trace bilateral lower extremity ankle edema. Skin: General: Skin is warm and dry. Capillary Refill: Capillary refill takes less than 2 seconds. Neurological: General: No focal deficit present. Mental Status: She is alert. Psychiatric: Mood and Affect: Mood normal. Behavior: Behavior normal. Thought Content: Thought content normal. Judgment: Judgment normal. ED Course: I have reviewed labs and imaging, images and available reports, and they are significant for: EKG reviewed by me shows normal sinus rhythm with a ventricular rate of 94. No acute ischemia. No significant change from prior. XR Chest PA & Lateral (Generic) Final Result 1. Sequela of COPD/emphysema. 2. No acute cardiopulmonary process. Thank you for letting us participate in the care of this patient. If you are a health care provider and have any questions regarding this report, please contact the number below. For patients who have questions please contact the health director of home care hospice that requested your imaging first. Assessment and Plan: 73 y.o. female with dyspnea on exertion and shortness of breath in the context of known COPD and HFpEF. No infectious symptoms. She does have some abdominal distention which she states has been ongoing for some time. Do not suspect acute ascites. Her abdomen is nontender. Plan will be labs, chest x-ray, nebs, reassessment. Low suspicion for ACS, or PE. Labs overall reassuring. Chest x-ray also negative for infiltrate. Feeling better after nebs in theED. Anticipate if her troponin series is negative and she passes an ambulation trial, she be treated as an outpatient with prednisone and follow-up. Did this case involve critical care? No [...] concerns. she agrees with thefollow- up plan. 8:10 PM Patient feeling better. Pt SpO2 at rest on room air: 83% On 3L at rest: 93% On 3L ambulatory 87% . She is feeling better than when she arrived. I offered admission but she would prefer to try and go home as she is feeling better and had minimal discomfort with ambulation. She has oxygen at home andin the truck. She has received steroids which I anticipate will continue to work. She has albuterolat home. She has not endorsed any changes in her sputum so I do not feel that antibiotics are indicated. Plan will be to continue the treatment as a COPD exacerbation with strict return precautions. Juliet Linares MD 02/08/242010 * Juliet Linares MD - 02/08/2024 4:15 PM EDT ED Medical Student Note HPI: Mallorie Burgess is a 73 y.o. female with history of HFpEF and COPD who presents to the Emergency Department for evaluation of 2-3 days of increased shortness of breath. She was admitted here from 01/14-01/18 for shortness of breath and was diangosed with COPD exacerbation with new onset HFpEF with an echo on 01/16 showing EF of 65%. She was discharged with Torsemide. She was feeling well since her discharge, however did present to this ED on 01/25 for some shortness of breath. She was not in respiratory distress at that time and was satting well on room air, so she was discharged home with outpatient follow up. She states her shortness of breath has returned and feels similar to her prior admission. She is having dyspnea with any exertion including standing and ambulating, and adds that she is having unrelated twinges of chest tightness. She takes Breztri and albuterol for COPD, and uses 3LO2NC at night and with exertion. She smokes 1.5 ppd. She denies fevers, chills, nausea, vomiting, abdominal pain, LE edema. History obtained from patient ROS as per HPi Vitals: ED Triage Vitals BP: 116/42 [02/08/24 1507] Heart Rate: 93 [02/08/24 1507] Resp: 18 [02/08/24 1507] Temp: 36.4 ??C (97.5 ??F) [02/08/24 1507] Temp src: Tympanic [02/08/24 1507] SpO2: (!) 89 % [02/08/24 1507] O2 Device: RA [02/08/24 150] O2 Flow Rate (L/min): 3 L/min [02/08/24 1510] Physical Exam Constitutional: Appearance: Normal appearance. HENT: Head: Normocephalic and atraumatic. Eyes: Conjunctiva/sclera: Conjunctivae normal. Cardiovascular: Rate and Rhythm: Normal rate and regular rhythm. Heart sounds: No murmur heard. No gallop. Pulmonary: Effort: Pulmonary effort is normal. No respiratory distress. Breath sounds: No stridor. Wheezing present. No rhonchi. Comments: No respiratory distress, occasionally gasps for a deep breath. No cyanosis, purse lip breathing, or tripoding. Bilateral expiratory wheezes. Abdominal: General: Abdomen is flat. Tenderness: There is no abdominal tenderness. There is no guarding. Skin: General: Skin is warm and dry. Neurological: Mental Status: She is alert. Psychiatric: Mood and Affect: Mood normal. Behavior: Behavior normal. ED Course: I have reviewed labs and imaging, images and available reports, and they are significant for: EKG rate is 94, sinus rhythm with no acute ST changes. Labs are significant for WBC 12.17. VBG pCO2 is 58 and bicarb is 34.7, pH 7.4. Otherwise, labs are largely unremarkable. CXR is similar to prior, no focal infiltrates or other acute abnormalities noted. Bedside thoracic ultrasound is significant for bilateral lung sliding and bilateral A-lines, negative for B lines. Cardiac views are negative for pericardial effusion or wall motion abnormalities. XR Chest PA & Lateral (Generic) Final Result 1. Sequela of COPD/emphysema. 2. No acute cardiopulmonary process. Thank you for letting us participate in the care of this patient. If you are a health care provider and have any questions regarding this report, please contact the number below. For patients who have questions please contact the health director of home care hospice that requested your imaging first. Course as of 02/08/242008Feb 08, 2024 1655 XR Chest PA & Lateral (Generic) Assessment and Plan: 73 y.o. female with history of COPD and CHF presenting with 3 days of progressive shortness of breath with diffuse expiratory wheezes and oxygen saturation of 89% on room air. Oxygen sat improves to 94% on 3L NC. Differentials include most likely COPD exacerbation vs. CHF, also include PE, ACS, pneumonia. We will order EKG to rule out ACS, basic labs with VBG, CXR. Labs and CXR are negative for infectious or congestive process, overall her workup and presentationare consistent with a COPD exacerbation. She has had an albuterol and 3x duonebs in the ED, her lungs are more clear and she is feeling less short of breath. Her resting O2 saturation on 3L O2 is 94%, drops to 87% with ambulation. Had discussion with patient and presented the option to keep her overnight for observation and more nebulizers, however patient would prefer to go home. She has oxygen at home, as well as in the car for her drive home. She has been prescribed a course of prednisone and understands discharge instructions, need for follow up, and return precautions. All questions answe red. The visit findings, diagnosis, and care plan were discussed with the patient. The diagnosis and care plans discussions were outlined in the discharge instructions. The patient expressed understanding of the details of the visit, the return precautions and that she should return to the ER at any time for worsening symptoms, new symptoms, or other concerns. she agrees with thefollow- up plan. I supervised this medical student in the care of this patient. Medical decision making is my own. Ireviewed all diagnostic studies and performed my own history and physical. Please see my own full documentation detailing the care of this patient, medical decision-making and disposition. Juliet Linares MD 02/09/24 1237 * Breann Resendez RN - 02/08/2024 3:22 PM EDT Pt to ED21 via w/c. CCM applied. EKG at bedside. * Compa Trejo PA - 02/08/2024 3:05 PM EDT 73 y/o F presents to the ED with shortness of breath. Says she was admitted here on 01/14 until 01/18 for a COPD exacerbation. She is short of breath mostly with exertion now and feels similar to when she was admitted last month. She does have home 02 at home which she has been using. No chest pain orfevers. No abdominal pain or vomiting. Labs ordered. Placed on 3 liters of 02 in triage. No respiratory distress. Labs and EKG ordered. Compa Trejo PA 02/08/24 1511 documented in this encounter Plan of Treatment Upcoming Encounters Date Type Department Care Team (Late st Contact Info) Description 07/12/2024 8:00 AM EST Hospital Encounter XRay at [address] [place] [id number] Eliane Peterson APRN [facility] [place] [id number] Scheduled Procedures Name Priority Associated Diagnoses Date/Ti me INJECTION, FACET JOINT, W\FLUORO, LUMBAR, 2ND LEVEL (WRVU 1) Spondylosis of lumbar region without myelopathy or radiculopathy INJECTION, FACET JOINT, W\FLUORO, LUMBAR, SINGLE (WRVU 1.52) Spondylosis of lumbar region without myelopathy or radiculopathy documented as of this encounter Procedures Procedure Name Priority Date/Time Associated Diagnosis Comments TROPONIN-T, HIGH SENSITIVITY 1 HOUR PERFORMABLE STAT 02/08/2024 6:12 PM EDT TROPONIN-T, HIGH SENSITIVITY INITIAL PERFORMABLE STAT 02/08/2024 4:57 PM EDT TROPONIN - SERIES STAT 02/08/2024 4:5 7 PM EDT XR CHEST PA AND LATERAL STAT 02/08/2024 4:01 PM EDT BLOOD GAS VENOUS POC Routine 02/08/2024 3:42 PM EDT GOLD TUBE HOLD STAT 02/08/2024 3:36 PM EDT BLUE TUBE HOLD STAT 02/08/2024 3:36 PM EDT CBC (WITH DIFF) STAT 02/08/2024 3:32 PM EDT BASIC METABOLIC PANEL STAT 02/08/2024 3:32 PM EDT EKG 12-LEAD STAT 02/08/2024 3:31 PM EDT documented in this encounter Results * (ABNORMAL) Troponin-T, High Sensitivity 1 Hour (02/08/2024 6:12 PM EDT) Pathologist [facility] Troponin-T, High Sensitivity 16(H) <=14 ng/L 02/08/2024 6:51 PM EDT [facility] Comment: [...] troponin value can be found in the [facility] Laboratory Test Catalog Troponin - [email or web address]/[email or web address] Reference: Fourth [place] Definition of Myocardial Infarction. Journal of the [place] [employer] 2018;72:1997-5326 Troponin-T, HS 1 hr delta 1 ng/L 02/08/2024 6:51 PM EDT [facility] Comment:The 1 hour Troponin T delta value is the absolute difference between the Troponin T concentrations of the initial and subsequent sample collected between 45 - 120 minutes following the initial collection. Blood VENOUS BLOOD SPECIMEN / Unknown IP Care Team Draw / Unknown 02/08/2024 6:12 PM EDT 02/08/2024 6:20 PM EDT Gary Lee MD CHEMISTRY ORDERABLES [facility] [place] [address] * (ABNORMAL) Troponin-T, High Sensitivity (02/08/2024 4:57 PM EDT) Troponin-T, High Sensitivity Initial 15(H) <=14 ng/L 02/08/2024 5:34 PM EDT [facility] Comment: [...] troponin value can be found in the [facility] Laboratory Test Catalog Troponin - [email or web address]/catalogs/565/files/22421 Reference: Fourth [place] Definition of Myocardial Infarction. Journal of the [place] College [employer]iology 2018;72:9716-7649 Blood VENOUS BLOOD SPECIMEN / Unknown IP Care Team Draw / Unknown 02/08/2024 4:57 PM EDT 02/08/2024 5:04 PM EDT Gary Lee MD CHEMISTRY ORDERABLES [facility] [place] [address] * XR Chest PA & Lateral (Generic) (02/08/2024 4:01 PM EDT) [employer] WORKSTATION ID [id number] RAD Anatomical Region Laterality Modality Chest N/A Digital Radiogra phy Impressions 02/08/2024 4:35 PM EDT 1. ??Sequela of COPD/emphysema. 2. ??No acute cardiopulmonary process. Thank you for letting us participate in the care of this patient. ??If you are a health care provider and have any questions regarding this report, please contact the number below. ??For patients who have questions please contact the health director of home care hospice that requested your imaging first. ? Narrative 02/08/2024 4:35 PM EDT EXAMINATION: XR CHEST PA AND LATERAL (GENERIC) CLINICAL HISTORY: shortness of breath TECHNIQUE: PA and lateral views of the chest, 2 images COMPARISON: Chest radiograph 01/26/2024. CT chest 01/27/2024. FINDINGS: EKG leads are present. Coarse appearance of the lung parenchyma and hyperexpansion concordant with underlying COPD/emphysema as seen on prior CT. Unchanged elevation of the left hemidiaphragm. No new airspace opacity to suggest pneumonia. No pulmonary vascular congestion. No pneumothorax. No pleural effusions. Normal size of the cardiomediastinal silhouette and joe. Dextroconvex curvature of the thoracic spine. No acute osseous findings. Procedure Note Chandrakant Moss MD - 02/08/2024 EXAMINATION: XR CHEST PA AND LATERAL (GENERIC) CLINICAL HISTORY: shortness of breath TECHNIQUE: PA and lateral views of the chest, 2 images COMPARISON: Chest radiograph 01/26/2024. CT chest 01/27/2024. FINDINGS: EKG leads are present. Coarse appearance of the lung parenchyma and hyperexpansion concordantwith underlying COPD/emphysema as seen on prior CT. Unchanged elevation of the left hemidiaphragm. No new airspace opacityto suggest pneumonia. No pulmonary vascular congestion. No pneumothorax. Nopleural effusions. Normal size of the cardiomediastinal silhouette and joe. Dextroconvex curvature of the thoracic spine. No acute osseous findings. IMPRESSION 1. Sequela of COPD/emphysema. 2. No acute cardiopulmonary process. Thank you for letting us participate in the care of this patient. If youare a health care provider and have any questions regarding this report,please contact the number below. For patients who have questions please contactthe health director of home care hospice that requested your imaging first. Gary Lee MD IMG DX ORDERABLES * (ABNORMAL) Blood Gas, Venous POC (02/08/2024 3:42 PM EDT) pH, Venous 7.40 7.32 - 7.42 02/08/2024 3:44 PM EDT [facility] PCO2, Venous 58 38 - 58 mmHg 02/08/2024 3:44 PM EDT [facility] PO2, Venous 24 16 - 65 mmHg 02/08/2024 3:44 PM EDT [facility] Bicarbonate, Venous 34.7(H) 22 - 31 mmol/L 02/08/2024 3:44 PM EDT [facility] Base Excess, Venous 9.8(H) 1.9 - 4.5 mmol/L 02/08/2024 3:44 PM EDT [facility] Hemoglobin, Venous 13.6 11.7 - 15.5 g/dL 02/08/2024 3:44 PM EDT [facility] Oxyhemoglobin, Venous 39.5 % 02/08/2024 3:44 PM EDT [facility] Carboxyhemoglobin , Venous 5.1 % 02/08/2024 3:44 PM EDT [facility] Comment: Nonsmokers: 0.5-1.5% COHB ?? Smokers: Variable ??but usually less than 10% ?? Toxic: 20-30% COHB ?? Lethal: Greater than 60% COHB Methemoglobin, Venous 0.3 <=1.5 % 02/08/2024 3:44 PM EDT [facility] Sodium, Venous 138 135 - 145 mmol/L 02/08/2024 3:44 PM EDT [facility] Potassium, Venous 4.2 3.5 - 5.0 mmol/L 02/08/2024 3:44 PM EDT [facility] Chloride, Venous 96(L) 98 - 107 mmol/L 02/08/2024 3:44 PM EDT [facility] Glucose, Venous 171 65 - 199 mg/dL 02/08/2024 3:44 PM EDT [facility] Comment:Glucose Concentratio n >=200 mg/dL plus symptoms is consistent with Diabetes Mellitus. Lactate, Venous 2.3(H) 0.5 - 2.2 mmol/L 02/08/2024 3:44 PM EDT [facility] Ionized Calcium, Venous 1.05(L) 1.15 - 1.33 mmol/L 02/08/2024 3:44 PM EDT [facility] Blood VENOUS BLOOD SPECIMEN / Unknown 02/08/2024 3:42 PM EDT 02/08/2024 3:44 PM EDT Juliet Linares MD POINT OF CARE TEST ORDERABLES [facility] [place] [address] * Gold Tube HOLD (02/08/2024 3:36 PM EDT) Gold Hold Hold for Add-on 02/08/2024 5:01 PM EDT [facility] Blood VENOUS BLOOD SPECIMEN / Unknown Venipuncture / Unknown 02/08/2024 3:36 PM EDT 02/08/2024 3:44 PM EDT Juliet Linares MD CHEMISTRY ORDERABLE S [facility] [place] [address] * Blue Tube HOLD (02/08/2024 3:36 PM EDT) Blue Hold Hold for Add-on 02/08/2024 5:01 PM EDT [facility] Blood VENOUS BLOOD SPECIMEN / Unknown Venipuncture / Unknown 02/08/2024 3:36 PM EDT 02/08/2024 3:44 PM EDT Juliet Linares MD HEMATOLOGY ORDERABL ES [facility] [place] [address] * (ABNORMAL) Basic Metabolic Panel (02/08/2024 3:32 PM EDT) Glucose 170 65 - 199 mg/dL 02/08/2024 4:44 PM EDT [facility] Comment:Glucose Concentratio n >=200 mg/dL plus symptoms is consistent with Diabetes Mellitus. Blood Urea Nitrogen 21(H) 8 - 18 mg/dL 02/08/2024 4:44 PM EDT [facility] Creatinine 1.08 0.70 - 1.20 mg/dL 02/08/2024 4:44 PM EDT [facility] Sodium 139 135 - 145 mMol/L 02/08/2024 4:44 PM EDT [facility] Potassium 02/08/2024 4:44 PM EDT [facility] Comment:Unable to report due to hemolysis Chloride 95(L) 98 - 107 mMol/L 02/08/2024 4:44 PM EDT [facility] Carbon Dioxide 28 22 - 31 mMol/L 02/08/2024 4:44 PM EDT [facility] Anion Gap 16(H) 5 - 15 mMol/L 02/08/2024 4:44 PM EDT [facility] Calcium 9.1 8.5 - 10.5 mg/dL 02/08/2024 4:44 PM EDT [facility] Est Glomerular Filtration Rate - Female 55 mL/min/1. 73 m?? 02/08/2024 4:44 PM EDT [facility] Comment: [...] PM EDT Gary Lee MD CHEMISTRY ORDERABLES [facility] [place] [address] * (ABNORMAL) CBC (with Diff) (02/08/2024 3:32 PM EDT) White Blood Cell 12.17(H) 4.00 - 9.50 x10(3)/mc L 02/08/2024 3:48 PM EDT [facility] Red Blood Cell 4.10 4.00 - 5.21 x10(6)/mc L 02/08/2024 3:48 PM EDT [facility] Hemoglobin 12.2 11.7 - 15.5 g/dL 02/08/2024 3:48 PM EDT [facility] Hematocrit 36.5 35.7 - 45.8 % 02/08/2024 3:48 PM EDT [facility] Mean Cell Volume 89.0 82.6 - 94.4 fL 02/08/2024 3:48 PM EDT [facility] Mean Cell Hemoglobin 29.8 27.1 - 32.0 pg 02/08/2024 3:48 PM EDT [facility] Mean Cell Hemoglobin Concentration 33.4 31.7 - 35.0 g/dL 02/08/2024 3:48 PM EDT [facility] Platelet 375(H) 145 - 357 x10(3)/mc L 02/08/2024 3:48 PM EDT [facility] Mean Platelet Volume 9.3 7.6 - 12.9 fL 02/08/2024 3:48 PM [facility] RDW Standard Deviation 48.0(H) 37.0 - 46.0 fL 02/08/2024 3:48 PM [facility] RDW coefficient of variation 14.7(H) 11.5 - 14.1 % 02/08/2024 3:48 PM [facility] NRBC% auto 0.0 % 02/08/2024 3:48 PM [facility] NRBC Absolute 0.00 0.00 - 0.00 x10(3)/mc L 02/08/2024 3:48 PM [facility] Neutrophil % 70.8 % 02/08/2024 3:48 PM [facility] Neutrophil Absolute (ANC) - Automated 8.62(H) 1.70 - 6.10 x10(3)/mc L 02/08/2024 3:48 PM [facility] Lymph % 20.7 % 02/08/2024 3:48 PM [facility] Lymph Absolute 2.52 0.90 - 3.20 x10(3)/mc L 02/08/2024 3:48 PM [facility] Monocyte % 5.6 % 02/08/2024 3:48 PM [facility] Monocyte Absolute 0.68 0.30 - 0.90 x10(3)/mc L 02/08/2024 3:48 PM [facility] Eos % 2.0 % 02/08/2024 3:48 PM [facility] Eos Absolute 0.24 0.00 - 0.40 x10(3)/mc L 02/08/2024 3:48 PM [facility] Basophil % 0.4 % 02/08/2024 3:48 PM [facility] Baso Absolute 0.05 0.00 - 0.10 x10(3)/mc L 02/08/2024 3:48 PM EDT [facility] Immature Gran % 0.5 % 3:48 PM EDT [facility] Immature Gran Absolute 0.06(H) 0.00 - 0.04 x10(3)/mc L 02/08/2024 3:48 PM EDT [facility] Blood VENOUS BLOOD SPECIMEN / Unknown Venipuncture / Unknown 02/08/2024 3:32 PM EDT 02/08/2024 3:44 PM EDT Gary Lee MD HEMATOLOGY ORDERABLE S Performing Organization Address City/[facility] Co de Phone Number [facility] [place] [address] * EKG 12 Lead (02/08/2024 3:31 PM EDT) Ventricular rate 94 BPM MUSE SYSTEM Atrial Rate 94 BPM MUSE SYSTEM P-R Interval 160 ms MUSE SYSTEM QRS Duration 84 ms MUSE SYSTEM Q-T Interval 362 ms MUSE SYSTEM QTC Calculated (Bezet) 452 ms MUSE SYSTEM Calculated P [place] 45 degrees MUSE SYSTEM Calculated R [place] 54 degrees MUSE SYSTEM Calculated T [place] 67 degrees MUSE SYSTEM INTERPRETATION Normal sinus rhythm Normal ECG When compared with ECG of 26-JAN-2024 21:38, Nonspecific T wave abnormality now evident in Lateral leads Confirmed by MD Megan, Carlos ([id number]) on 02/09/2024 8:20:27 AM MUSE SYSTEM 02/08/2024 3:31 PM EDT 02/09/2024 8:20 AM EDT Gary Lee MD ECG ORDERABLES Performing Organization Address City/[facility] Co de Phone Number MUSE SYSTEM documented in this encounter Visit Diagnoses Diagnosis Chronic obstructive pulmonary disease, unspecified COPD type documented in this encounter Administered Medications Inactive Administered Medications - up to 3 most recent administrations Medication Order MAR Action Action Date Dose Rate Site albuteroL (Proventil, Ventolin) (2.5 mg/3 mL) (0.083 %) nebulizer solution 5 mg 5 mg, Nebulization, ONCE, 1 dose, On Thu02/08/24 at 1645, STAT Given 02/08/2024 4:51 PM EDT 5 mg ipratropium-albuteroL (Duoneb) 0.5 mg-3 mg(2.5 mg base)/3 mL nebulizer solution 3 mL 3 mL, Nebulization, EVERY 15 MIN, 3 doses, First dose on Thu02/08/24 at 1730, Last dose on Thu02/08/24 at 1800, STAT Given 02/08/2024 6:11 PM EDT 3 mLs Given 02/08/2024 5:55 PM EDT 3 mLs Given 02/08/2024 5:34 PM EDT 3 mLs predniSONE (Deltasone) tablet 40 mg 40 mg, Oral, ONCE, 1 dose, On Thu02/08/24 at 1750, STAT Given 02/08/2024 5:55 PM EDT 40 mg documented in this encounter Active and Recently Administered Medications Times are shown in EDT. Scheduled Medication Order 02/06/2024 02/07/2024 02/08/2024 albuteroL (Proventil, Ventolin) (2.5 mg/3 mL) (0.083 %) nebulizer solution 5 mg (COMPLETED) 5 mg, Nebulization, ONCE, 1 dose, On Thu02/08/24 at 1645, STAT 1651 (Given - Provid er: Breann Resendez RN) ipratropium-albuteroL (Duoneb) 0.5 mg-3 mg(2.5 mg base)/3 mL nebulizer solution 3 mL (COMPLETED) 3 mL, Nebulization, EVERY 15 MIN, 3 doses, First dose on Thu02/08/24 at 1730, Last dose on Thu02/08/24 at 1800, STAT 1734 (Given - Provid er: Breann Resendze RN)1755 (Given - Provider: Breann Resendez RN)1811 (Given - Provider: Breann Resendez RN) predniSONE (Deltasone) tablet 40 mg (COMPLETED) 40 mg, Oral, ONCE, 1 dose, On Thu02/08/24 at 1750, STAT 1755 (Given - Provid er: Breann Resendez RN) documented in this encounter Care Teams Product Development Coordinator Relationship Specialty Start Date End Date Dilan Hernandez MD [address] [place] [address] [place] [address] PCP - General 04/30/10 documented as of this encounter
--- OUTSIDE RECORDS SUMMARY | 2024-07-07 20:07 | XMS_ITS | Encounter Summary ---
Author Organization [facility] [place] [address] Care Team Providers Care Director Of Outpatient Services Name Role Phone Dilan Hernandez MD Primary Care Provider [phone] Encounter Details Date Type Department Care Team (Late st Contact Info) Description 01/12/2024 Telephone Non-Invasive Cardiology Lab [facility] [place] [phone] Kasey Renae Social History Tobacco Use Types Packs/Day Years [...] encounter Miscellaneous Notes * Telephone Encounter - Kasey Renae - 01/12/2024 1:09 PM EDT 06/30/23 Echo images from [facility] received and uploaded to [facility] documented in this encounter Plan of Treatment Upcoming Encounters Date Type Department Care Team (Late st Contact Info) Description 07/12/2024 8:00 AM EST Hospital Encounter XRay at [address] [place] [phone] [place] [address] Scheduled Procedures Name Priority Associated Diagnoses Date/Ti me INJECTION, FACET JOINT, W\FLUORO, LUMBAR, 2ND LEVEL (WRVU 1) Spondylosis of lumbar region without myelopathy or radiculopathy INJECTION, FACET JOINT, W\FLUORO, LUMBAR, SINGLE (WRVU 1.52) Spondylosis of lumbar region without myelopathy or radiculopathy documented as of this encounter Visit Diagnoses Not on filedocumented in this encounter Care Teams Director Of Outpatient Services Relationship Specialty Start Date End Date Dilan Hernandez MD [address] [place] [address] [place] [phone] PCP - General 04/30/10 documented as of this encounter
--- OUTSIDE RECORDS SUMMARY | 2024-07-07 20:07 | XMS_ITS | Encounter Summary ---
[place] [address] Care Team Providers Care Autocad Technician Name Role Phone Dilan Hernandez MD Primary Care Provider [phone] Reason for Referral * Consultation (Routine) - Authorized Specialty Diagnoses / Procedures Referred By Albert castaneda Referred To Contact [facility] Diagnoses Low back pain, unspecified back pain laterality, unspecified chronicity, unspecified whether sciatica present lumbar stenosis/ [place] hip pain/ MRI 12/28/23 in e[facility] FVE DOCKETING SPECIALIST Dilan Hernandez MD [address] [place] [address] [place] [address] [facility] [place] [address] Referral ID Status Reason Start Date Expiration Date Visits Requested Visits Authorized [id number] Authorized Consult, Test & Treat PCP Updated and/or Approved 10/16/2023 10/15/2024 6 6 Encounter Details Date Type Department Care Team (Latest Contact Info) Description 01/11/2024 Transcribe Orders eDH Incoming Referrals [phone] Dilan Hernandez MD [address] [place] [address] [place] [phone] Low back pain, unspecified back pain laterality, unspecified chronicity, unspecified whether sciatica present Social History Tobacco Use Types Packs/Day Years [...] st Contact Info) Description 07/12/2024 8:00 AM [facility] Hospital Encounter XRay at [address] [place] [address] [place] [address] Scheduled Procedures Name Priority Associated Diagnoses Date/Ti me INJECTION, FACET JOINT, W\FLUORO, LUMBAR, 2ND LEVEL (WRVU 1) Spondylosis of lumbar region without myelopathy or radiculopathy INJECTION, FACET JOINT, W\FLUORO, LUMBAR, SINGLE (WRVU 1.52) Spondylosis of lumbar region without myelopathy or radiculopathy Scheduled Referrals Name Type Priority Associated Diagnoses Orde r Schedule Referral to Spine Center Outpatient Referral Routine Low back pain, unspecified back pain laterality, unspecified chronicity, unspecified whether sciatica present Ordered: 01/11/2024 documented as of this encounter Visit Diagnoses Diagnosis Low back pain, unspecified back pain laterality, unspecified chronicity, unspecified whether sciatica present documented in this encounter Care Teams Autocad Technician Relationship Specialty Start Date End Date Dilan Hernandez MD [address] [place] [address] [place] [address] PCP - General 04/30/10 documented as of this encounter
--- OUTSIDE RECORDS SUMMARY | 2024-07-07 20:07 | XMS_ITS | Encounter Summary ---
Author Organization [facility] [place] [address] Care Team Providers Care Health Promotion Specialist Name Role Phone Dilan Hernandez MD Primary Care Provider [phone] Encounter Details Date Type Department Care Team (Late st Contact Info) Description 02/01/2024 Telephone [facility] [place] [phone] Unknown None Social History Tobacco Use Types Packs/Day Years Used Date Smoking Tobacco: Every Day Cigarettes Smokeless Tobacco: Never Alcohol Use Standard Drinks/Week Comments Yes 1 (1 standard drink = 0.6 oz pur e alcohol) 1 drink a day [facility] Inpatient Questions Answer Date Recorded [...] * Telephone Encounter - Maddy Tay - 02/01/2024 4:40 PM EDT Mallorie calling in again to get scheduled from the referral. She would like to get scheduled as soonas possible. Please call Mallorie back to schedule when available. * Telephone Encounter - Zara Tellez - 02/01/2024 11:43 AM EDT Clinic Coverage - Reason for Call: Returning a call PCP: Dilan Hernandez MD / Treating provider: Referral Reason for return call: returning a call from Antonia to schedule from referral, see note from 01/26/24 Did assembly instructions writer attempt to reach out to the clinic?: No Callback number: [phone] Best time you are available: Any Route Per Clinic Coverage Page documented in this encounter Plan of Treatment Upcoming Encounters Date Type Department Care Team (Late st Contact Info) Description 07/12/2024 8:00 AM [facility] Encounter XRay at [address] [place] [address] [place] [address] Scheduled Procedures Name Priority Associated Diagnoses Date/Ti me INJECTION, FACET JOINT, W\FLUORO, LUMBAR, 2ND LEVEL (WRVU 1) Spondylosis of lumbar region without myelopathy or radiculopathy INJECTION, FACET JOINT, W\FLUORO, LUMBAR, SINGLE (WRVU 1.52) Spondylosis of lumbar region without myelopathy or radiculopathy documented as of this encounter Visit Diagnoses Not on filedocumented in this encounter Care Teams Health Promotion Specialist Relationship Specialty Start Date End Date Dilan Hernandez MD [address] [place] [address] [place] [address] PCP - General 04/30/10 documented as of this encounter
--- OUTSIDE RECORDS SUMMARY | 2024-07-07 20:07 | XMS_ITS | Encounter Summary ---
Author Organization [facility] [place] [address] Care Team Providers Care Applied Biology Professor Name Role Phone Dilan Hernandez MD Primary Care Provider [phone] Encounter Details Date Type Department Care Team (Late st Contact Info) Description 02/01/2024 Telephone [place] [address] Epifanio Lau Social History Tobacco Use Types Packs/Day Years Used Date Smoking Tobacco: Every Day Cigarettes Smokeless Tobacco: Never Alcohol Use Standard Drinks/Week Comments Yes 1 (1 standard drink = 0.6 oz pur e alcohol) 1 drink a day [facility] Inpatient Questions Answer Date Recorded Does Anyone [...] encounter Miscellaneous Notes * Telephone Encounter - Epifanio Lau - 02/01/2024 3:35 PM EDT Inbound/Outbound: Outbound Spoke to Patient/Left Message: Left message Notes: Outbound call to patient to schedule motility lab testing from referral. Left message askingfor callback to schedule. Return calls can be handled by: Motility Lab Laser Beam Cutter documented in this encounter Plan of Treatment Upcoming Encounters Date Type Department Care Team (Late st Contact Info) Description 07/12/2024 8:00 AM [facility] Encounter XRay at [address] [place] [address] [place] [address] Scheduled Procedures Name Priority Associated Diagnoses Date/Ti me INJECTION, FACET JOINT, W\FLUORO, LUMBAR, 2ND LEVEL (WRVU 1) Spondylosis of lumbar region without myelopathy or radiculopathy INJECTION, FACET JOINT, W\FLUORO, LUMBAR, SINGLE (WRVU 1.52) Spondylosis of lumbar region without myelopathy or radiculopathy documented as of this encounter Visit Diagnoses Not on filedocumented in this encounter Care Teams Applied Biology Professor Relationship Specialty Start Date End Date Dilan Hernandez MD [address] [place] [address] [place] [phone] PCP - General 04/30/10 documented as of this encounter
--- OUTSIDE RECORDS SUMMARY | 2024-07-07 20:08 | XMS_ITS | Encounter Summary ---
[place] [address] Care Team Providers Care Distance Education Faculty Liaison Name Role Phone Dilan Hernandez MD Primary Care Provider [phone] Reason for Referral * Consultation (Routine) - Denied Specialty Diagnoses / Procedures Referred By Contrao castaneda Referred To Contact [facility] Diagnoses Low back pain, unspecified back pain laterality, unspecified chronicity, unspecified whether sciatica present Dilan Hernandez MD [address] [place] [phone] [facility] [place] [place] [address] Referral ID Status Reason Start Date Expiration Date V isits Requested Visits Authorized [id number] Denied Consult, Test & Treat PCP Updated and/or Approved 10/28/2023 10/27/2024 6 0 Encounter Details Date Type Department Care Team (Latest Contact Info) Description 10/28/2023 Transcribe Orders eDH Incoming Referrals [phone] Dilan Hernandez MD [address] [place] [phone] Low back pain, unspecified back pain laterality, unspecified chronicity, unspecified whether sciatica present Social History Tobacco Use Types Packs/Day Years Used Date Smoking Tobacco: Every Day Cigarettes Smokeless Tobacco: Never Sex and Gender Information Value Date Recorded Sex Assigned at Not on file Gender Identity Not on file Sexual Orientation Straight 09/21/2020 3: 34 PM EDT documented as of this encounter Plan of Treatment Upcoming Encounters Date Type Department Care Team (Late st Contact Info) Description 07/12/2024 8:00 AM [facility] Hospital Encounter XRay at [address] [place] [address] Eliane Peterson, [place] [address] Scheduled Procedures Name Priority Associated Diagnoses Date/Ti [...] unspecified chronicity, unspecified whether sciatica present Ordered: 10/28/2023 documented as of this encounter Visit Diagnoses Diagnosis Low back pain, unspecified back pain laterality, unspecified chronicity, unspecified whether sciatica present documented in this encounter Care Teams Distance Education Faculty Liaison Relationship Specialty Start Date End Date Dilan Hernandez MD [address] [place] [address] [place] [address] PCP - General 04/30/10 documented as of this encounter
--- OUTSIDE RECORDS SUMMARY | 2024-07-07 20:08 | XMS_ITS | Encounter Summary ---
Author Organization [facility] [place] [address] Care Team Providers Care Power Station Operator Name Role Phone Dilan Hernandez MD Primary Care Provider [phone] Encounter Details Date Type Department Care Team (Late st Contact Info) Description 08/03/2023 Telephone [place] [phone] Epifanio Lau Social History Tobacco Use Types Packs/Day Years Used Date Smoking Tobacco: Every Day Cigarettes Smokeless Tobacco: Never Sex and Gender Information Value Date Recorded Sex Assigned at Not on file Gender Identity Not on file Sexual Orientation Straight 09/21/2020 3: 34 PM EDT documented as of this encounter Miscellaneous Notes * Telephone Encounter - Epifanio Lau - 08/03/2023 10:58 AM EST RAC letter sent with scheduling information for ordered testing Pt needs: Fibroscan * Telephone Encounter - Epifanio Lau - 08/03/2023 10:58 AM EST ----- Message from Alberta Flores APRN sent at 08/03/2023 9:15 AM EST ----- RAC: please call to schedule fibroscan Thanks! documented in this encounter Plan of Treatment Upcoming Encounters Date Type Department Care Team (Late st Contact Info) Description 07/12/2024 8:00 AM EST Hospital Encounter XRay at [address] [place] [address] [place] [address] Scheduled Procedures Name Priority Associated Diagnoses Date/Ti me INJECTION, FACET JOINT, W\FLUORO, LUMBAR, 2ND LEVEL (WRVU 1) Spondylosis of lumbar region without myelopathy or radiculopathy INJECTION, FACET JOINT, W\FLUORO, LUMBAR, SINGLE (WRVU 1.52) Spondylosis of lumbar region without myelopathy or radiculopathy documented as of this encounter Visit Diagnoses Not on filedocumented in this encounter Care Teams Power Station Operator Relationship Specialty Start Date End Date Dilan Hernandez MD [address] [place] [address] [place] [phone] PCP - General 04/30/10 documented as of this encounter
--- OUTSIDE RECORDS SUMMARY | 2024-07-07 20:08 | XMS_ITS | Encounter Summary ---
Author Organization [facility] [place] [address] Care Team Providers Care Continuous Improvement Consultant Name Role Phone Dilan Hernandez MD Primary Care Provider [phone] Reason for Referral * Consultation (Routine) - Closed Specialty Diagnoses / Procedures Referred By Contrao t Referred To Contact Thoracic Surgery Diagnoses Cigarette smoker Cigarette smoker Manasa Robledo MD [facility] [place] [address] Ethel Perez APRN [facility] DR CARDIOTHORACIC [place] [address] Referral ID Status Reason Start Date Expiration Date V isits Requested Visits Authorized [id number] Closed Consult, Test & Treat 05/26/2019 05/25/2020 1 1 Reason for Visit * Reason Comments Establish Care * Consultation (Routine) - Closed Specialty Diagnoses / Procedures Referred By Contac t Referred To Contact General Surgery Diagnoses PYLORIC STENOSIS Michael Sullivan MD [address] [place] [address] [place] [address] [facility] [address] [place] [address] Referral ID Status Reason Start Date Expiration Date Visits Re quested Visits Authorized [id number] Closed 05/11/2019 05/10/2020 1 1 Encounter Details Date Type Department Care Team (Late st Contact Info) Description 05/26/2019 9:20 AM EST Office Visit [facility] [place] [address] Manasa Robledo MD [facility] [place] [address] Cigarette smoker; Pyloric stenosis in adult Social History Tobacco Use Types Packs/Day Years Used Date Smoking Tobacco: Every Day Smokeless Tobacco: Never Sex and Gender Information Value Date Recorded Sex Assigned at Not on file Gender Identity Not on file Sexual Orientation Straight 09/21/2020 3: 34 PM EDT documented as of this encounter Last Filed Vital Signs Vital Sign Reading Time Taken Comments Blood Pressure 114/59 05/26/2019 8:56 AM EST Pulse 73 05/26/2019 8:56 AM EST Temperature 36.4 ??C (97.6 ??F) 05/26/2019 8:56 AM ES T Respiratory Rate 16 05/26/2019 8:56 AM EST Oxygen Saturation 96% 05/26/2019 8:56 AM EST Inhaled Oxygen Concentration - - Weight 64 kg (141 lb 3.2 oz) 05/26/2019 8:56 AM EST Height 154.9 cm (5' 1) 05/26/2019 8:56 AM EST Body Mass Index 26.68 05/26/2019 8:56 AM EST documented in this encounter Progress Notes * Manasa Robledo MD - 05/26/2019 9:20 AM EST Mallorie Burgess is a 69 y.o. female referred by Dilan Hernandez MD for evaluation of chronic benign pyloric stenosis. She was previously seen [place] Dr. Patel of [place] [facility] [place]. The patient states that beginning in about 2008 she developed vomiting, postprandial bloating and severe reflux symptoms. She underwent a CT scan which revealed a distended stomach and a subsequent EGD showed benign-appearing pyloric stenosis with a 3 to 4 mm pyloric opening. She was found to have e sophagitis. She underwent dilation with initial improvement of symptoms however her symptoms would always recur. Initially she could go years between dilations, however more recently she is noted only brief improvement of symptoms. She is undergone an estimated 5 dilations over time. Her last EGD was performed on April 13, 2019 with findings of a 1 mm opening which was dilated to 10 mm. She hasbeen found to be H. pylori negative, and per report multiple biopsies have not shown evidence of malignancy. Because of her stenosis was thought to be prior heavy NSAID use. She states since around July she has developed vomiting about 2 times a week with associated diarrhea with 1-4 bowel movements a day. She states that her vomitus initially appears to be food, andthen will progress to acid and bile. She has postprandial bloating and abdominal pain. She thinks she has lost about 10 pounds over the last few months. She is eating primarily soft foods and avoiding meats. She eats things such as applesauce pudding or soups. Of note she is a chronic heavy smoker, currently smoking about 1.5 packs/day. She denies current NSAID use. She takes baking soda for her acid symptoms. She denies taking other antacids, although hasbeen on omeprazole in the past. Her most recent CT scan on 02/06/2019 did not show evidence of a dilated stomach. She does not tolerate reglan. ?? Past Medical History: COPD PSH: Hysterectomy Tubal ligation Oophorectomy Medications: Current Outpatient Medications: ??? PROAIR HFA 90 mcg/actuation HFA Aerosol Inhaler, INHALE TWO PUFFS BY MOUTH EVERY 4 HOURS NEEDED, Disp: , Rfl: ??? TRELEGY ELLIPTA 100-62.5-25 mcg Disk with Device, , Disp: , Rfl: ??? ranitidine (ZANTAC) 150 mg Capsule, Take 150 mg by mouth 2 times daily., Disp: , Rfl: ??? pramipexole (MIRAPEX) 1 mg Tablet, Take 2 mg by mouth nightly., Disp: , Rfl: Allergies: Patient has no known allergies. Family History: Non contributory Social History: reports that she has been smoking. She has never used smokeless tobacco. Rare Review of systems is notable for a 10 lb weight loss per patient. She states he can climb a flight of stairs and walk a mile. She denies any cough, chest pain or shortness on breath on exertion. She has no fevers, chills or night sweats. She denies headaches, dizziness, weakness, numbness or ataxia. She denies issues with bleeding, clotting or anesthesia. Bowel and bladder elimination is as per HPI. All other system reviews are negative. Most Recent Vitals: 05/26/19 0856 BP: 114/59 Pulse: 73 Resp: 16 Temp: 36.4 ??C (97.6 ??F) SpO2: 96% PainSc: 2 Body mass index is 26.68 kg/m??. On physical examination, this is a well appearing female. There is no scleral or skin icterus. Mucous membranes are moist and her pupils reactive. Her lungs are clear to auscultation. Heart is regular, rate, and rhythm and without murmurs. Her abdomen is without palpable masses. There is no abdominal distention. She is mildly tender in the epigastrium. Her extremity and neurological exam are gross ly normal. Impression. 69-year-old female with a history of COPD and current heavy smoking with history of chronic pyloric stenosis status post multiple dilations in the past, now with decreasing benefit post dilation. Biopsies in the past have never shown any evidence of malignancy, and her stenosis may be due to heavy NSAID use in the past. We discussed the relevant anatomy and that when dilations are no l onger effective, there are a few surgical options to consider. We discussed laparoscopic pyloroplasty, and if not feasible, doing a bypass of her pyloris by anastomosing small bowel to her stomach. We discussed the nature of both of these options and expected postoperative course. We reviewed that even after relief of her obstruction, she may continue to have poor gastric emptying given the chronicity of her obstruction. In either case, we discussed that her smoking use increases her operative risk, and increases the risk of restricture or ulceration post surgery, and thus I recommended smoking cessation prior to proceeding. She is willing to try. I provided her with the [facility] smoking cessation packet, and she agreed to meet with a smoking cessation counselor. She will follow up with me in a month to see how she is progressing. I offered to set up a repeat dilation for her, however she declined at this time. documented in this encounter Plan of Treatment Upcoming Encounters Date Type Department Care Team (Late st Contact Info) Description 07/12/2024 8:00 AM EST Hospital Encounter XRay at [address] [place] [address] [place] [address] Scheduled Procedures Name Priority Associated Diagnoses Date/Ti me INJECTION, FACET JOINT, W\FLUORO, LUMBAR, 2ND LEVEL (WRVU 1) Spondylosis of lumbar region without myelopathy or radiculopathy INJECTION, FACET JOINT, W\FLUORO, LUMBAR, SINGLE (WRVU 1.52) Spondylosis of lumbar region without myelopathy or radiculopathy Scheduled Referrals Name Type Priority Associated Diagnoses Orde r Schedule Referral to Smoking Cessation Program Outpatient Referral Routine Cigarette smoker Ordered: 05/26/2019 documented as of this encounter Visit Diagnoses Diagnosis Cigarette smoker Tobacco use disorder Pyloric stenosis in adult documented in this encounter Care Teams Continuous Improvement Consultant Relationship Specialty Start Date End Date Dilan Hernandez MD [address] [place] [address] [place] [address] PCP - General 04/30/10 documented as of this encounter
--- OUTSIDE RECORDS SUMMARY | 2024-07-07 20:08 | XMS_ITS | Encounter Summary ---
Author Organization [facility] [place] [address] Care Team Providers Care Tie Hacker Name Role Phone Dilan Hernandez MD Primary Care Provider [phone] Reason for Visit * Reason Comments Low Back Pain * Physical Therapy (Routine) - Specialty Diagnoses / Procedures Referred By Albert castaneda Referred To Contact Physical Therapy Diagnoses DDD (degenerative disc disease), lumbar Tabatha Fernández, [facility] [place] [address] Gerri Ruiz PT [facility] Referral ID Status Reason Start Date Expiration Date V isits Requested Visits Authorized [id number] Evaluate and Treat 08/23/2020 02/19/2021 12 12 Encounter Details Date Type Department Care Team (Late st Contact Info) Description 10/02/2020 1:00 PM EDT Office Visit [facility] [place] [address] Gerri Ruiz PT Low back pain, non-specific Social History Tobacco Use Types Packs/Day Years Used Date Smoking Tobacco: Every Day Cigarettes Smokeless Tobacco: Never Sex and Gender Information Value Date Recorded Sex Assigned at Not on file Gender Identity Not on file Sexual Orientation Straight 09/21/2020 3: 34 PM EDT documented as of this encounter Progress Notes * Gerri Ruiz PT - 10/02/2020 1:00 PM EDT PHYSICAL THERAPY INITIAL EXAMINATION Date of First Exam/ First Treatment: 10/02/2020 Referring Provider: Tabatha Fernández APRN Diagnosis: 1. Low back pain, non-specific 2. Multilevel degenerative disc and facet changes with a grade 1 anterolisthesis L4 on a transitional L5 3. 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 She was seen with the expectation to see if there is anything that can be done from an exercise perspective to ease the pain and improve her ability to function. History of Present Illness: Ms. Burgess reports the following gastric surgery she began to experiencegradually worsening low back pain. She does not attribute the pain to the surgery itself but the inactivity for 6 weeks following. Past treatments directed to the directed to the low back have included chiropractic adjustments, epidural steroid injection 06/26/2020, medications, heat, ice, home exercises, and salon pas patches. She notes the injection only provided her with pain relief for a few days and then the pain gradually worsened once again.. Ms. Burgess currently complains of low back painradiating to bilateral iliac crests and intermittent aching in the anterior aspect of bilateral thighs. The pain is rated 2/10 at its least and 10/10 at its worst. She denies numbness, tingling, and feels as if her legs are weak. Symptoms worsen when rising from sitting, rising from lying, standing, walking, standing at a counter, and lifting. Symptoms ease when sitting. Sleep is disturbed not only due to her low back pain but restless leg syndrome. When asked about a gait or balance disturbance she reports leaning forward and listing toward the right. Walking while pushing a shopping cart cha great deal more comfortable than walking without support. Functionally, she is able to sit 60 minutes, stand 5 minutes, and walk 2 to 5 minutes. Ms. Burgess's functional self care goal includes beingable to stand and walk without discomfort Patient Active Problem List Diagnosis Code ??? DDD (degenerative disc disease), lumbar M51.36 ??? Low back pain, non-specific M54.5 : No past surgical history on file.: Social History: Ms. 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 She smokes 1.5 packs of cigarettes per day, drinks alcohol rarely and exercises regularly. Her home exercise program consists of some back stretches and lunges. Physical Exam: Ms. Burgess is a very pleasant 70 y.o. female who moves about the exam room without difficulty and appears comfortable while sitting. Sitting posture is poor. She tends to stand with thelumbar spine in flexion and the hips and knees flexed to 20 degrees. Examination of the spine in a standing position reveals a loss of the usual lumbar lordosis and an evident scoliosis. Active rangeof motion of the lumbar spine is limited to 70 degrees flexion and 0 degrees extension. Endrange flexion and extension worsens the pain. Extension combined with right and left sidebending also worsens the pain. She walks with a significant forward lean and rightward list. She is able to heel/toe walk and squat through 1/3 of the range. Abdominal and trunk extensor strength is 3/5. Repeated movement testing of the lumbar spine did not reveal a clear directional preference. She appears to be mostcomfortable with her spine in the neutral position. Physical Therapy Assessment: Ms. Burgess is a woman with a long history of low back and buttock pain which is interfering with her ability to function. The physical exam is significant for loss of lumbar extension, trunk musculature weakness and no directional preference.. The history and exam is consistent with low back and leg symptoms likely related to underlying stenosis. I believe that these deficits can improve with physical therapy treatments directed to the low back consisting of strengthening and self mobilization exercises. Ms. Burgess has a guarded rehabilitation potential and I anticipate to meet with her today only at her request. Treatment Plan: The natural history of low back pain likely related to underlying degenerative changes and rational for exercise based treatment was reviewed. Ms. Burgess was given a home exercise program consisting of trunk rotation in supine, pelvic tilt, bridging, extension in lying through 1/3 ofthe range followed by the child's pose 2 times per day. She was strongly encouraged to begin a structured walking program using ski or trekking poles for support. Along with the prescribed exercises,we discussed the principles of symptom self monitoring and posture correction. She will call with any questions, concerns, or if the pain worsens. Ms. Burgess will return to [facility] for a follow up appointment as needed only. Physical Therapy Goals in 4 weeks: 1. Independent with home exercise program 2. Able to stand without discomfort 3. Able to walk without discomfort The plan has been discussed with Mallorie Burgess and she has agreed with the planned treatment. Expect with skilled physical therapy interventions she will be able to return to prior level of function. 50 minutes were spent interviewing, assessing, and instructing Mallorie Burgess in a home exercise program. Clinical Presentation: Stable Evolving Unstable x Notes: The patient's clinical presentation is Evolving due to gradually worsening low back pain Clinical decision making of low complexity using standardized patient assessment instrument and measurable assessment of functional outcome. documented in this encounter Plan of Treatment Upcoming Encounters Date Type Department Care Team (Late st Contact Info) Description 07/12/2024 8:00 AM [facility] Hospital Encounter XRay at [address] [place] [address] [place] [address] Scheduled Procedures Name Priority Associated Diagnoses Date/Ti me INJECTION, FACET JOINT, W\FLUORO, LUMBAR, 2ND LEVEL (WRVU 1) Spondylosis of lumbar region without myelopathy or radiculopathy INJECTION, FACET JOINT, W\FLUORO, LUMBAR, SINGLE (WRVU 1.52) Spondylosis of lumbar region without myelopathy or radiculopathy Scheduled Referrals Name Type Priority Associated Diagnoses Orde r Schedule Referral to Physical Therapy Outpatient Referral Routine DDD (degenerative disc disease), lumbar Ordered: 08/23/2020 documented as of this encounter Visit Diagnoses Diagnosis Low back pain, non-specific documented in this encounter Care Teams Tie Hacker Relationship Specialty Start Date End Date Dilan Hernandez MD [address] [place] [address] [place] [id number] PCP - General 04/30/10 documented as of this encounter
--- OUTSIDE RECORDS SUMMARY | 2024-07-07 20:08 | XMS_ITS | Encounter Summary ---
Author Organization [facility] Address [facility] [place] [address] Care Team Providers Care Retail Pricing Coordinator Name Role Phone Dilan Hernandez MD Primary Care Provider [phone] Encounter Details Date Type Department Care Team (Latest Contact Info) Description 12/07/2023 Travel Social History Tobacco Use Types Packs/Day [...] st Contact Info) Description 07/12/2024 8:00 AM [facility] Hospital Encounter XRay at [address] [place] [address] [place] [address] Scheduled Procedures Name Priority Associated Diagnoses Date/Ti me INJECTION, FACET JOINT, W\FLUORO, LUMBAR, 2ND LEVEL (WRVU 1) Spondylosis of lumbar region without myelopathy or radiculopathy INJECTION, FACET JOINT, W\FLUORO, LUMBAR, SINGLE (WRVU 1.52) Spondylosis of lumbar region without myelopathy or radiculopathy documented as of this encounter Visit Diagnoses Not on filedocumented in this encounter Care Teams Retail Pricing Coordinator Relationship Specialty Start Date End Date Dilan Hernandez MD [address] [place] [address] [place] [address] PCP - General 04/30/10 documented as of this encounter
--- OUTSIDE RECORDS SUMMARY | 2024-07-07 20:08 | XMS_ITS | Encounter Summary ---
Author Organization [facility] [place] [address] Care Team Providers Care Stave Cutter Name Role Phone Dilan Hernandez MD Primary Care Provider [phone] Encounter Details Date Type Department Care Team (Late st Contact Info) Description 11/18/2023 Telephone [place] [address] Suki Nickerson Social History Tobacco Use Types Packs/Day Years Used Date Smoking Tobacco: Every Day Cigarettes Smokeless Tobacco: Never Sex and Gender Information Value Date Recorded Sex Assigned at Not on file Gender Identity Not on file Sexual Orientation Straight 09/21/2020 3: 34 PM EDT documented as of this encounter Miscellaneous Notes * Telephone Encounter - Suki Nickerson - 11/18/2023 4:08 PM EDT LVM in regards to call back through [employer]. No message. Please call [phone]. documented in this encounter Plan of Treatment Upcoming Encounters Date Type Department Care Team (Late st Contact Info) Description 07/12/2024 8:00 AM EST Hospital Encounter XRay at [address] [place] [address] [place] [address] Scheduled Procedures Name Priority Associated Diagnoses Date/Ti me INJECTION, FACET JOINT, W\FLUORO, LUMBAR, 2ND LEVEL (WRVU 1) Spondylosis of lumbar region without myelopathy or radiculopathy INJECTION, FACET JOINT, W\FLUORO, LUMBAR, SINGLE (WRVU 1.52) Spondylosis of lumbar region without myelopathy or radiculopathy documented as of this encounter Visit Diagnoses Not on filedocumented in this encounter Care Teams Stave Cutter Relationship Specialty Start Date End Date Dilan Hernandez MD [address] [place] [address] [place] [phone] PCP - General 04/30/10 documented as of this encounter
--- OUTSIDE RECORDS SUMMARY | 2024-07-07 20:08 | XMS_ITS | Encounter Summary ---
Author Organization [facility] [place] [address] Care Team Providers Care Earth Mover Name Role Phone Dilan Hernandez MD Primary Care Provider [phone] Reason for Visit * Auth/Cert Specialty Diagnoses / Procedures Referred By Albert castaneda Referred To Contact Diagnoses L3-4 through L5-S1 facet arthropathy Procedures PRO INJ PARAVERTEBRAL FACET JT W/IMAGE GUID, LUMBAR/SACRAL, 3RD OR ADDL LEVEL PRO INJECTION PV FACET JOINT LUMBAR/SACRAL SINGLE LEVEL PRO INJECTION PV FACET JOINT LUMBAR/SACRAL SECOND LEVEL INJECTION, FACET JOINT, W\FLUORO, LUMBAR, 3RD LEVEL (WRVU 1) INJECTION, FACET JOINT, W\FLUORO, LUMBAR, SINGLE (WRVU 1.52) INJECTION, FACET JOINT, W\FLUORO, LUMBAR, 2ND LEVEL (WRVU 1) Referral ID Status Reason Start Date Expiration Date Visits Re quested Visits Authorized [id number] 1 1 Encounter Details Date Type Department Care Team (Late st Contact Info) Description 11/21/2020 8:30 AM EDT Ancillary Procedure [place] [address] Stephanie Vasquez MD Pain Social History Tobacco Use Types Packs/Day Years [...] st Contact Info) Description 07/12/2024 8:00 AM [facility] Hospital Encounter XRay at [address] [place] [address] [place] [address] Scheduled Procedures Name Priority Associated Diagnoses Date/Ti me INJECTION, FACET JOINT, W\FLUORO, LUMBAR, 2ND LEVEL (WRVU 1) Spondylosis of lumbar region without myelopathy or radiculopathy INJECTION, FACET JOINT, W\FLUORO, LUMBAR, SINGLE (WRVU 1.52) Spondylosis of lumbar region without myelopathy or radiculopathy documented as of this encounter Procedures Procedure Name Priority Date/Time Associated Diagnosis Comments FILM LIBRARY STORAGE ONLY PAIN CLINIC C ARM Routine 11/21/2020 10:22 AM EDT Pain documented in this encounter Results * Film Library- Storage Only pain Clinic C-Arm (11/21/2020 10:22 AM EDT) Narrative [facility] - 11/21/2020 10:22 AM EDT See PACS for result report. Stephanie Vasquez MD IMG FILM LIBRARY ORD ERABLES [place], [place] documented in this encounter Visit Diagnoses Diagnosis Pain Generalized pain documented in this encounter Care Teams Earth Mover Relationship Specialty Start Date End Date Dilan Hernandez MD [address] [place] [address] [place] [phone] PCP - General 04/30/10 documented as of this encounter
--- OUTSIDE RECORDS SUMMARY | 2024-07-07 20:08 | XMS_ITS | Encounter Summary ---
Author Organization Formerly [facility] [place] [address] Care Team Providers Care Human Resources Office Assistant Name Role Phone Dilan Hernandez MD Primary Care Provider [phone] Reason for Visit * Auth/Cert Specialty Diagnoses / Procedures Referred By Albert t Referred To Contact Diagnoses L3-4 through L5-S1 [...] Expiration Date Visits Re quested Visits Authorized [id number] 1 1 Encounter Details Date Type Department Care Team (Latest Contact Info) Description 11/21/2020 8:00 AM EDT - 11/21/2020 9:54 AM EDT Hospital [place] [phone] Stephanie Vasquez MD Facet arthropathy, lumbar; Spondylosis of lumbar region without myelopathy or radiculopathy; Facet arthropathy, lumbar Discharge Disposition: Home Social History Tobacco Use Types Packs/Day Years Used Date Smoking Tobacco: Every Day Cigarettes Smokeless Tobacco: Never Sex and Gender Information Value Date Recorded Sex Assigned at Not on file Gender Identity Not on file Sexual Orientation Straight 09/21/2020 3: 34 PM EDT documented as of this encounter Last Filed Vital Signs Vital Sign Reading Time Taken Comments Blood Pressure 121/73 11/21/2020 9:25 AM EDT Pulse - - Temperature - - Respiratory Rate - - Oxygen Saturation 97% 11/21/2020 9:30 AM EDT Inhaled Oxygen Concentration - - Weight 66.2 kg (146 lb) 11/21/2020 8:11 AM EDT Height 154.9 cm (5' 1) 11/21/2020 8:11 AM EDT Body Mass Index 27.59 11/21/2020 8:11 AM EDT documented in this encounter Discharge Instructions * Discharge Instructions* Cristian Dove - 11/21/2020 9:48 AM EDT Pain Management Center Discharge Instructions: You were seen today by Surgeon(s): Stephanie Vasquez MD Shah, Sunali, MD The following was performed: Procedure(s) (LRB): INJECTION, FACET JOINT, W\FLUORO, LUMBAR, 3RD LEVEL (WRVU 1) (Bilateral) INJECTION, FACET JOINT, W\FLUORO, LUMBAR, SINGLE (WRVU 1.52) (Bilateral) INJECTION, FACET JOINT, W\FLUORO, LUMBAR, 2ND LEVEL (WRVU 1) (Bilateral) It is normal that the injection site will be sore for up to 48 hours. [x] You may also experience mild stiffness in the joint near the injection site. You may resume your normal activities: today. You may shower today. DO NOT tub bathe, use whirlpools, hot tubs or pool therapy for 2 days. RemoveBand-Aid(s) later today/tomorrow. Do not drive until tomorrow. Use caution walking/climbing stairs as you may be unsteady on your feet. You may use your usual medications, including pain medications, as directed, unless otherwise instructed. You may use an ice pack as needed for the first 24 hours, on for 20 minutes then off for 20 minutes. Do not apply heat today. Attempt to empty your bladder 4-6 hours after your procedure. You received the following medications: Medications Given During Procedure Date/Time Order Dose Route Action {\field{\*\fldinst HYPERLINK ecmd:ord?[id number]}{\fldrslt \18 11/21/2020 0931}} BUpivacaine (pf) (Marcaine) (5 mg/mL) 0.5% injection 4 mL Epidural Given {\field{\*\fldinst HYPERLINK ecmd:ord?[id number]}{\fldrslt \18 11/21/2020 0931}} iohexoL (Omnipaque) (240 mg/mL) injection solution 2 mL Epidural Given During regular business hours, please phone the Pain Management Center at with any questions or if the following or other troubling symptoms develop: 1) Prolonged dizziness or weakness (more than 1 day). 2) Localized swelling, redness or drainage at the injection site(s). 3) Temperature of 101 degrees that lasts for more than 4 hours. After 5 PM or on weekends, call and ask for Pain Clinic provider on-call. If you are unable to reach the Pain Management Center and have a complication, please call your Primary Care Provider or proceed to your local emergency department. Cristian Dove Special instructions Pain Management Center Post -Procedure Pain Log Patient: Mallorie Burgess [id number] It is important for you to keep track of your pain after your procedure that took place 11/21/2020. This information will help your Provider to determine how to help reduce your pain. Today you had a procedure for pain in your back Your pain level before the procedure in this area was 9/10. Your pain level immediately after your procedure was 3/10. Time Pain Score # Comments % of pain relief 1 hour 10:30 2 hours 11:30 3 hours 12:30 4 hours 1:30 Please call the nurse in the Pain Management Center a day or two after your procedure and report the information above. She will assess your response to the procedure, and will recommend appropriate follow-up. documented in this encounter Medications at Time of Discharge Medication Sig Dispensed Refills Start Date End Date ferrous sulfate 324 mg (65 mg iron) [...] morning and two at night per patient celecoxib (CeleBREX) 200 mg Capsule daily. 09/25/2020 04/07/2024 UNABLE TO FIND 3 times daily. Med Name: *Restivin for Restless Leg Syndrome* 4 MAGNESIUM ORAL Take by mouth daily. *[place] Liquid form* 04/07/2024 UNABLE TO FIND 2 times daily as needed. Med Name:*Generic Arthritis Medication* 12/07/2023 ondansetron ODT (Zofran-ODT) 4 mg Tablet, Rapid Dissolve Take 4 mg by mouth Every 8 hours as needed. 03/02/2020 12/11/2020 omeprazole (PriLOSEC) 20 mg Capsule, Delayed Release(E.C.) Take 40 mg by mouth daily. 03/30/2024 cyclobenzaprine (Flexeril) 10 mg Tablet as needed. 08/20/2020 07/0 11/2020 TRELEGY ELLIPTA 100-62.5-25 mcg Disk with Device daily. 05/25/2019 12/07/2023 documented as of this encounter H&P Notes * Riley Fernandez MD - 11/21/2020 8:46 AM EDT Patient Name: Mallorie Burgess Patient Age: 70 y.o. Birthdate: 1950 Admit date: 11/21/2020 Attending Physician: Stephanie Vasquez MD PREPROCEDURE HISTORY AND PHYSICAL Date of Visit: November 21, 2020 Chief Complaint: Low back pain HPI: Subjective Mallorie Burgess is a 70 y.o. female who presents today for lumbar medial branch block, bilateral L3,L4, L5-DR referred by Tabatha Fernández (pain). S/p LESI L4-[address] Vasquez on 09/24/2020 The history is obtained from the patient, and I have reviewed medical records provided by the referring physician and located in the electronic medical record to fill in gaps in the patient's recollection of events, treatments and outcomes. LOCATION: Bilateral lumbar spine PAIN LEVEL KEMPS 9 PAST MEDICAL HISTORY: No past medical history on file. PAST SURGICAL HISTORY: No past surgical history on file. ALLERGIES: Patient has no known allergies. MEDICATIONS: No current facility-administered medications on file prior to encounter. Current Outpatient Medications on File Prior to Encounter Medication Sig Dispense Refill ??? celecoxib (CeleBREX) 200 mg Capsule daily. ??? UNABLE TO FIND 3 times daily. Med Name: *Restivin for Restless Leg Syndrome* ??? MAGNESIUM ORAL Take by mouth daily. *[place] Liquid form* ??? UNABLE TO FIND 2 times daily as needed. Med Name:*Generic Arthritis Medication* ??? ondansetron ODT (Zofran-ODT) 4 mg Tablet, Rapid Dissolve Take 4 mg by mouth Every 8 hours as needed. ??? omeprazole (PriLOSEC) 20 mg Capsule, Delayed Release(E.C.) Take 40 mg by mouth daily. ??? ferrous sulfate 324 mg (65 mg iron) Tablet, Delayed Release (E.C.) Take 324 mg by mouth as needed. ??? escitalopram (Lexapro) 10 mg Tablet Take 10 mg by mouth Daily. ??? cyclobenzaprine (Flexeril) 10 mg Tablet as needed. ??? PROAIR HFA 90 mcg/actuation HFA Aerosol Inhaler INHALE TWO PUFFS BY MOUTH EVERY 4 HOURS NEEDED ??? TRELEGY ELLIPTA 100-62.5-25 mcg Disk with Device daily. ??? pramipexole (MIRAPEX) 1 mg Tablet Take 1.5 mg by mouth 2 times daily. FAMILY HISTORY: No family history on file. SOCIAL HISTORY: Social History Socioeconomic History ??? Marital status: Spouse name: Not on file ??? Number of children: Not on file ??? Years of education: Not on file ??? Highest education level: Not on file Occupational History ??? Not on file Tobacco Use ??? Smoking status: Current Every Day Smoker Packs/day: 1.50 ??? Smokeless tobacco: Never Used Vaping Use ??? Vaping Use: Never used Substance and Sexual Activity ??? Alcohol use: Not on file ??? Drug use: Not on file ??? Sexual activity: Not on file Other Topics Concern ??? Not on file Social History Narrative ??? Not on file Social Determinants of Health Financial Resource Strain: ??? Difficulty of Paying Living Expenses: Food Insecurity: ??? Worried About Running Out of Food in the Last Year: ??? Ran Out of Food in the Last Year: Transportation Needs: ??? Lack of Transportation (Medical): ??? Lack of Transportation (Non-Medical): Physical Activity: ??? Days of Exercise per Week: ??? Minutes of Exercise per Session: ROS: Pt denies recent fever, chills, infection, wounds, hospitalizations, ED visits, use of antibiotics.Otherwise, as described above. PHYSICAL EXAM: BP 119/67 Ht 154.9 cm (5' 1) Wt 66.2 kg (146 lb) SpO2 96% BMI 27.59 kg/m?? Physical Exam Constitutional: Pt oriented to person, place, and time. Appears well-developed and well-nourished. No distress. HENT: Head: Normocephalic and atraumatic. Pulmonary/Chest: Effort normal. Neurological: Alert and oriented to person, place, and time. No cranial nerve deficit. Skin: Skin is warm and dry. No rash noted. Not diaphoretic. Psychiatric: Normal mood and affect. MSK: (+) Kemps bilaterally RADIOLOGIC DATA: Relevant imaging reviewed LABS/DX RESULTS: Last 3 wbc, hgb, hct plt No results for input(s): WBC, HGB, HCT, PLATELET in the last 7068 hours. Last 3 Lytes No results for input(s): NA, K, CL, CO2, BUN, CREATININE in the last 7068 hours. Last 3 LFTs No results for input(s): AST, ALT, ALKPHOS, BILITOT, BILIDIR in the last 7068 hours. Last 3 Coags No results for input(s): PT, INR, PTT in the last 168 hours. Last 3 HgbA1C No results for input(s): HA1C in the last 7068 hours. ASSESSMENT: Assessment 1. Facet arthropathy, lumbar 2. Spondylosis of lumbar region without myelopathy or radiculopathy 3. Facet arthropathy, lumbar PLAN: Proceed with planned lumbar medial branch block, bilateral L3, L4, L5-DRDoreen Addressed all questions and concerns. Risks and benefits discussed with patient. No contraindications to the procedure at this time, will proceed. Riley Fernandez MD Pain Management Fellow [facility] [address] [address] [email or web address] documented in this encounter Miscellaneous Notes * Op Note - Stephanie Vasquez MD - 11/21/2020 8:59 AM EDT Pain Management Operative Note Patient Name: Mallorie Burgess : [id number] MR#: [id number] Case Date: 11/21/2020 Surgeon: Surgeon(s) and Role: * Stephanie Vasquez MD - Primary * Riley Fernandez MD - Fellow Present on Admission: ??? Spondylosis of lumbar region without myelopathy or radiculopathy Postoperative diagnosis: same as above Procedure(s) (LRB): INJECTION, FACET JOINT, W\FLUORO, LUMBAR, 3RD LEVEL (WRVU 1) (Bilateral) INJECTION, FACET JOINT, W\FLUORO, LUMBAR, SINGLE (WRVU 1.52) (Bilateral) INJECTION, FACET JOINT, W\FLUORO, LUMBAR, 2ND LEVEL (WRVU 1) (Bilateral) PROCEDURE NOTE LUMBAR MEDIAL BRANCH DIAGNOSTIC BLOCKS Date of Service: 10/02/2020 Patient: Mallorie Burgess Referring Physician: No referring provider defined for this encounter. Diagnosis: 1. Facet arthropathy, lumbar 2. Spondylosis of lumbar region without myelopathy or radiculopathy 3. Facet arthropathy, lumbar Pre-procedure Note History and Exam: Patient demonstrates today moderate to severe non- radicular back pain without neurologic deficit aggravated by hyperextension Yes Back pain greater than leg pain Yes Patient today has tenderness over the suspected joint(s) Yes History of post-traumatic injury No Hypertrophic arthropathy Yes Back pain associated with suspected motion segment instability or Hypermobility or pseudoarthrosis No Pre-testing pain score (VAS): 9 Previous medial branch block testing?: No Today's Operative Note Mallorie Burgess was greeted by the nurse who verified the patients name and . Patient was then taken to the fluoroscopy suite. Ms. Burgess was interviewed and the medical record was reviewed. There were no medical contraindications to performing the bilateral lumbar medial branch nerve blocks. I first had a talk with the patient and discussed the potential risks, benefits, side effects, and alternatives of this procedure including but not limited to increased pain from the procedure, no pain relief, nerve damage, infection, and bleeding. she comprehended my conversation and accepts the risks and understands the goals of this diagnostic procedure. All questions and concerns from the patient were addressed. After I was comfortable that the patient was fully informed about this procedure, the printed consent form was signed. Standard time-out procedure was performed Ms. Burgess was placed in the prone position on the fluoroscopy table and automated blood pressure cuff and pulse oximeter were applied. The anatomic target points of the segmental medial branches of bilaterally L3, L4 and L5- DRwere identified with fluoroscopy. Following thorough Chlorhexadine preparation of the skin and draping, a 22 gauge 3.5 spinal needle was placed under fluoroscopic guidance down on to the target point for each respective segmental medial branch.Position was confirmed in A/P, oblique and lateral views. At each level we injected 0.5ml of Bupivacaine 0.5%. Ms. Burgess's vital signs were stable throughout the procedure and were as recorded in the docflowsheet by the nursing staff. Postoperatively, today patient demonstrates the following changes with hyperextension and with tenderness over the suspected joint(s). Provacative testing using the Mayers's facet loading test Right side Left side Directly before the block VAS (0-10) = 9 VAS (0-10) = 9 5 minutes after the block VAS (0-10) = 3 VAS (0-10) = 0 Percentage relief obtained with this diagnostic block 67% 100% Any improved physical functioning directly after the blocks? To be determined Next, she was asked to recordher percent pain relief and any changes in provocative maneuvers for the next 4 hours. She will report this information at the next business day to one of our nurses. Based on the medial branches blocked today, if the patient meets insurance criteria for radiofrequency, the treatment should result in the denervation of the bilaterally L3-L4, L4-L5 and L5-S1 facet joint nerves. We would expect to denervate a total of 6 facets during the radiofrequency ablation. Discharge plan:: She will call back with her 0-4 hour post-procedure pain scores. Riley Fernandez MD Pain Fellow I was the attending physician supervising the resident in the above care and I was present with theresident for the entire procedure. Stephanie Vasquez MD Auto Servicer of Anesthesiology Section of Pain Medicine ABPN-subspecialty board certification in Pain Medicine CC: No referring provider defined for this encounter. documented in this encounter Plan of Treatment Upcoming Encounters Date Type Department Care Team (Late st Contact Info) Description 07/12/2024 8:00 AM [facility] Hospital Encounter [address]Ray at [address] [place] [address] [place] [address] Scheduled Orders Name Type Priority Associated Diagnoses Orde r Schedule INJECTION, FACET JOINT,W\FLUORO, LUMBAR, 2ND LEVEL Procedures Routine Facet arthropathy, lumbar One Time for 1 Occurrences starting 11/21/2020 until 11/21/2020 INJECTION, FACET JOINT,W\FLUORO, LUMBAR, 3RD LEVEL Procedures Routine Facet arthropathy, lumbar One Time for 1 Occurrences starting 11/21/2020 until 11/21/2020 INJECTION, FACET JOINT,W\FLUORO, LUMBAR, SINGLE Procedures Routine Facet arthropathy, lumbar One Time for 1 Occurrences starting 11/21/2020 until 11/21/2020 Scheduled Procedures Name Priority Associated Diagnoses Date/Ti me INJECTION, FACET JOINT, W\FLUORO, LUMBAR, 2ND LEVEL (WRVU 1) Spondylosis of lumbar region without myelopathy or radiculopathy INJECTION, FACET JOINT, W\FLUORO, LUMBAR, SINGLE (WRVU 1.52) Spondylosis of lumbar region without myelopathy or radiculopathy documented as of this encounter Visit Diagnoses Diagnosis Spondylosis of lumbar region without myelopathy or radiculopathy- Primary Lumbosacral spondylosis without myelopathy Facet arthropathy, lumbar Lumbosacral spondylosis without myelopathy Spondylosis of lumbar region without myelopathy or radiculopathy Lumbosacral spondylosis without myelopathy Facet arthropathy, lumbar Lumbosacral spondylosis without myelopathy documented in this encounter Admitting Diagnoses Diagnosis Facet arthropathy, lumbar Lumbosacral spondylosis without myelopathy documented in this encounter Active and Recently Administered Medications Times are shown in EDT. PRN Medication Order 11/19/2020 11/20/2020 11/21/2020 BUpivacaine (pf) (Marcaine) (5 mg/mL) 0.5% injection (CANCELED) ONCE PRN, Starting on Thu11/21/20 at 0900, Until Thu11/21/20 at 1154, Intra-Operative (Intra-Procedure), Routine 0931 (Given - Provid er: Riley Fernandez MD) iohexoL (Omnipaque) (240 mg/mL) injection solution (CANCELED) ONCE PRN, Starting on Thu11/21/20 at 0859, Until Thu11/21/20 at 1154, Intra-Operative (Intra-Procedure), Routine 0931 (Given - Provid er: Riley Fernandez MD) documented in this encounter Care Teams Human Resources Office Assistant Relationship Specialty Start Date End Date Dilan Hernandez MD [address] [place] [address] [place] [phone] PCP - General 04/30/10 documented as of this encounter
--- OUTSIDE RECORDS SUMMARY | 2024-07-07 20:08 | XMS_ITS | Encounter Summary ---
Author Organization [facility] [place] [address] Care Team Providers Care Loom Fixer Name Role Phone Dilan Hernandez MD Primary Care Provider [phone] Encounter Details Date Type Department Care Team (Late st Contact Info) Description 12/28/2023 Interpretation Only Radiology Library at [facility] [place] [address] Micah Ortega MD [facility] [place] [address] Social History Tobacco Use Types Packs/Day Years [...] 8:00 AM EST Hospital Encounter XRay at [address] [place] [phone] Eliane Peterson APRN [facility] [place] [address] Scheduled Procedures Name Priority Associated Diagnoses Date/Ti me INJECTION, FACET JOINT, W\FLUORO, LUMBAR, 2ND LEVEL (WRVU 1) Spondylosis of lumbar region without myelopathy or radiculopathy INJECTION, FACET JOINT, W\FLUORO, LUMBAR, SINGLE (WRVU 1.52) Spondylosis of lumbar region without myelopathy or radiculopathy documented as of this encounter Procedures Procedure Name Priority Date/Time Associated Diagnosis Comments FILM LIBRARY STORAGE ONLY MR SPINE Routine 12/28/2023 10:20 AM EDT documented in this encounter Results * Film Library- Storage Only MR Spine (12/28/2023 10:20 AM EDT) 12/31/2023 2:46 AM EDT Narrative [facility] - 12/31/2023 2:46 AM EDT This exam is auto-finalizing. It's purpose is for storage only. Micah Ortega MD IMG FILM LIBRARY ORD ERABLES [place], [place] documented in this encounter Visit Diagnoses Not on filedocumented in this encounter Care Teams Loom Fixer Relationship Specialty Start Date End Date Dilan Hernandez MD [address] [place] [address] BRYCE Beltran [phone] PCP - General 04/30/10 documented as of this encounter
--- OUTSIDE RECORDS SUMMARY | 2024-07-07 20:08 | XMS_ITS | Encounter Summary ---
Author Organization [facility] [place] [address] Care Team Providers Care Ssis Ssrs Developer Name Role Phone Dilan Hernandez MD Primary Care Provider [phone] Encounter Details Date Type Department Care Team (Late st Contact Info) Description 07/09/2020 Ancillary Procedure Radiology Library at [facility] [place] [address] Dilan Hernandez MD [address] [place] [phone] Social History Tobacco Use Types Packs/Day Years [...] 8:00 AM EST Hospital Encounter XRay at [address] [place] [address] Eliane Peterson APRN [facility] [place] [address] Scheduled Procedures Name Priority Associated Diagnoses Date/Ti me INJECTION, FACET JOINT, W\FLUORO, LUMBAR, 2ND LEVEL (WRVU 1) Spondylosis of lumbar region without myelopathy or radiculopathy INJECTION, FACET JOINT, W\FLUORO, LUMBAR, SINGLE (WRVU 1.52) Spondylosis of lumbar region without myelopathy or radiculopathy documented as of this encounter Procedures Procedure Name Priority Date/Time Associated Diagnosis Comments FILM LIBRARY STORAGE ONLY DX SPINE Routine 07/09/2020 12:00 AM EST documented in this encounter Results * Film Library- Storage Only DX Spine (07/09/2020 12:00 AM EST) Narrative [facility] - 07/20/2020 5:00 PM EST This exam is auto-finalizing. It's purpose is for storage only. Dilan Hernandez MD G FILM LIBRARY ORD ERABLES [place], [place] documented in this encounter Visit Diagnoses Not on filedocumented in this encounter Care Teams Ssis Ssrs Developer Relationship Specialty Start Date End Date Dilan Hernandez MD [address] [place] [address] [place] [address] PCP - General 04/30/10 documented as of this encounter
--- OUTSIDE RECORDS SUMMARY | 2024-07-07 20:08 | XMS_ITS | Encounter Summary ---
Author Organization [facility] [place] [address] Care Team Providers Care Carrot Tier Name Role Phone Dilan Hernandez MD Primary Care Provider [phone] Encounter Details Date Type Department Care Team (Late st Contact Info) Description 08/31/2020 Telephone [facility] at [facility] [place] [address] Lucretia Lucero Social History Tobacco Use Types Packs/Day Years Used Date Smoking Tobacco: Every Day Smokeless Tobacco: Never Sex and Gender Information Value Date Recorded Sex Assigned at Not on file Gender Identity Not on file Sexual Orientation Straight 09/21/2020 3: 34 PM EDT documented as of this encounter Miscellaneous Notes * Telephone Encounter - Lucretia Lucero - 08/31/2020 1:07 PM EDT 08/31/2020 I attempted to contact Ms. Burgess to advise that her upcoming procedure will need to be postponed until she can have an L-spine MRI. Tabatha Fernández APRN, has entered the order. Ms. Burgess was not available. I left a message asking her to return my call. documented in this encounter Plan of Treatment Upcoming Encounters Date Type Department Care Team (Late st Contact Info) Description 07/12/2024 8:00 AM EST Hospital Encounter XRay at [address] [place] [address] Eliane Peterson, [place] [address] Scheduled Procedures Name Priority Associated Diagnoses Date/Ti me INJECTION, FACET JOINT, W\FLUORO, LUMBAR, 2ND LEVEL (WRVU 1) Spondylosis of lumbar region without myelopathy or radiculopathy INJECTION, FACET JOINT, W\FLUORO, LUMBAR, SINGLE (WRVU 1.52) Spondylosis of lumbar region without myelopathy or radiculopathy documented as of this encounter Visit Diagnoses Not on filedocumented in this encounter Care Teams Carrot Tier Relationship Specialty Start Date End Date Dilan Hernandez MD [address] [place] [address] [place] [address] PCP - General 04/30/10 documented as of this encounter
--- OUTSIDE RECORDS SUMMARY | 2024-07-07 20:08 | XMS_ITS | Encounter Summary ---
Author Organization [facility] [address] Care Team Providers Care Slot Floorperson Name Role Phone Dilan Hernandez MD Primary Care Provider [phone] Reason for Referral * Diagnostic Test (Routine) - Closed Specialty Diagnoses / Procedures Referred By Contac t Referred To Contact Radiology Diagnoses DDD (degenerative disc disease), lumbar Procedures MRI Lumbar Spine wo Contrast (Generic) Tabatha Fernández APRN [facility] [place] [address] [place] [address] Referral ID Status Reason Start Date Expiration Date V isits Requested Visits Authorized [id number] Closed Specialty Service Requested 09/19/2020 03/18/2021 1 1 Encounter Details Date Type Department Care Team (Late st Contact Info) Description 08/22/2020 Orders Only [facility] [place] [address] Lillie Olson LNA DDD (degenerative disc disease), lumbar (Primary Dx) Social History Tobacco Use Types [...] 8:00 AM EST Hospital Encounter XRay at [address] [place] [address] Eliane Peterson APRN [facility] [place] [address] Scheduled Procedures Name Priority Associated Diagnoses Date/Ti me INJECTION, FACET JOINT, W\FLUORO, LUMBAR, 2ND LEVEL (WRVU 1) Spondylosis of lumbar region without myelopathy or radiculopathy INJECTION, FACET JOINT, W\FLUORO, LUMBAR, SINGLE (WRVU 1.52) Spondylosis of lumbar region without myelopathy or radiculopathy documented as of this encounter Results * MRI Lumbar Spine wo Contrast (Generic) (09/21/2020 12:44 PM EDT) Anatomical Region Laterality Modality L-spine Magnetic Resonan ce Impressions 09/21/2020 2:40 PM EDT 1. Degenerative changes of primarily the lower 3 levels of the lumbar spine, with moderate to severe central canal stenosis right greater than left neural foraminal narrowing at L3/4 and L4/5. 2. Anterolisthesis of L5 on S1 contributes to moderate central canal stenosis and bilateral neural foraminal stenosis. Comment: The following findings are so common in people without low back pain that while we report their presence, they must be interpreted with caution and in context of the clinical situation (Reference- Redvik Et Al, Spine 2001). Findings: (Prevalence in patients without low back pain), disc degeneration (decreased T2 signal, height loss, bulge) (91%), disc T2-signal loss (83%), disc height loss (56%), disc bulge (64%), disc protrusion (32%), annular fissure (38%). Thank you for letting us participate in the care of this patient. ??If you are a health care provider and have any questions regarding this report, please contact the number below. ??For patients who have questions please contact the health home health care respiratory therapist that requested your imaging first. ? Electronically signed by: Carie Jorgensen MD, [facility] ([phone]), at 09/21/2020 2:40 PM Narrative 09/21/2020 2:40 PM EDT EXAMINATION: MRI LUMBAR SPINE WO CONTRAST (GENERIC) CLINICAL HISTORY: Lumbar radiculopathy, > 6 wks TECHNIQUE: MRI of the lumbar spine performed without intravenous contrast administration. COMPARISON: None FINDINGS: There is approximately 7 mm anterolisthesis of L5 on S1. There is convex left curvature of the lumbar spine with apex at L3/4. Vertebral body height, alignment and marrow signal otherwise preserved, except focal osseous lesion bone marrow edema. Distal spinal cord is normal in signal and morphology. The conus terminates in somewhat low position at the mid L2 level. Cauda equina nerve roots are mildly undulating in the distal spinal canal. T12/L1: Minimal disc bulge with minimal right foraminal component. No significant spinal canal or neural foraminal narrowing. L1/2: Minimal central disc protrusion, with no significant spinal canal or neural foraminal narrowing. Mild bilateral degenerative facet and ligamentous hypertrophy. L3/4: Moderate diffuse disc bulge, which flattens the ventral thecal sac. Moderate to severe bilateral degenerative facet hypertrophy and bilateral ligamentous hypertrophy, with moderate to severe central canal stenosis and narrowing of the right greater than left lateral recesses. There is moderate right and mild left L3/4 neural foraminal narrowing. L4/5: Moderate diffuse disc bulge slightly asymmetric right foraminal component. Moderate severe bilateral degenerative facet hypertrophy and ligamentous hypertrophy. Moderate to severe central spinal canal stenosis, moderate to severe right and moderate left neural foraminal narrowing. Right greater than left lateral recess stenosis. L5/S1: 7 mm anterolisthesis of L5 on S1 uncovers the intravertebral disc, which also bulges mildly. With moderate bilateral facet and ligamentous hypertrophy, there is moderate stenosis of the central spinal canal, bilateral lateral recess stenosis, moderate to severe bilateral neural foraminal narrowing. Procedure Note Carie Jorgensen MD - 09/21/2020 EXAMINATION: MRI LUMBAR SPINE WO CONTRAST (GENERIC) CLINICAL HISTORY: Lumbar radiculopathy, > 6 wks TECHNIQUE: MRI of the lumbar spine performed without intravenous contrastadministration. COMPARISON: None FINDINGS: There is approximately 7 mm anterolisthesis of L5 on S1. There is convexleft curvature of the lumbar spine with apex at L3/4. Vertebral body height, alignment and marrow signal otherwise preserved,except focal osseous lesion bone marrow edema. Distal spinal cord is normal insignal and morphology. The conus terminates in somewhat low position at the midL2 level. Cauda equina nerve roots are mildly undulating in the distalspinal canal. T12/L1: Minimal disc bulge with minimal right foraminal component. No significant spinal canal or neural foraminal narrowing. L1/2: Minimal central disc protrusion, with no significant spinal canalor neural foraminal narrowing. Mild bilateral degenerative facet andligamentous hypertrophy. L3/4: Moderate diffuse disc bulge, which flattens the ventral thecalsac. Moderate to severe bilateral degenerative facet hypertrophy andbilateral ligamentous hypertrophy, with moderate to severe central canal stenosisand narrowing of the right greater than left lateral recesses. There ismoderate right and mild left L3/4 neural foraminal narrowing. L4/5: Moderate diffuse disc bulge slightly asymmetric right foraminalcomponent. Moderate severe bilateral degenerative facet hypertrophy and ligamentous hypertrophy. Moderate to severe central spinal canal stenosis, moderateto severe right and moderate left neural foraminal narrowing. Right greaterthan left lateral recess stenosis. L5/S1: 7 mm anterolisthesis of L5 on S1 uncovers the intravertebral disc,which also bulges mildly. With moderate bilateral facet and ligamentoushypertrophy, there is moderate stenosis of the central spinal canal, bilateral lateralrecess stenosis, moderate to severe bilateral neural foraminal narrowing. IMPRESSION 1. Degenerative changes of primarily the lower 3 levels of the lumbarspine, with moderate to severe central canal stenosis right greater than leftneural foraminal narrowing at L3/4 and L4/5. 2. Anterolisthesis of L5 on S1 contributes to moderate central canalstenosis and bilateral neural foraminal stenosis. Comment: The following findings are so common in people without low backpain that while we report their presence, they must be interpreted with cautionand in context of the clinical situation (Reference- Jarvik Et Al, [id number]). Findings: (Prevalence in patients without low back pain), discdegeneration (decreased T2 signal, height loss, bulge) (91%), disc T2-signal loss(83%), disc height loss (56%), disc bulge (64%), disc protrusion (32%), annularfissure (38%). Thank you for letting us participate in the care of this patient. If youare a health care provider and have any questions regarding this report,please contact the number below. For patients who have questions please contactthe health home health care respiratory therapist that requested your imaging first. Electronically signed by: Carie Jorgensen MD, [facility]([phone]), at 09/21/2020 2:40 PM Tabatha Fernández APRN IMG MRI ORDERABLES documented in this encounter Visit Diagnoses Diagnosis DDD (degenerative disc disease), lumbar- Primary Degeneration of lumbar or lumbosacral intervertebral disc DDD (degenerative disc disease), lumbar Degeneration of lumbar or lumbosacral intervertebral disc documented in this encounter Care Teams Slot Floorperson Relationship Specialty Start Date End Date Dilan Hernandez MD [address] [place] [address] [place] [phone] PCP - General 04/30/10 documented as of this encounter
--- OUTSIDE RECORDS SUMMARY | 2024-07-07 20:08 | XMS_ITS | Encounter Summary ---
Author Organization [facility] [place] [address] Care Team Providers Care Clinical Neuropsychologist Name Role Phone Dilan Hernandez MD Primary Care Provider [phone] Encounter Details Date Type Department Care Team (Late st Contact Info) Description 10/02/2020 Orders Only [facility] [place] [address] Robert Sanchez, HISTOPATH TECH Social History Tobacco Use Types Packs/Day Years [...] 8:00 AM EST Hospital Encounter XRay at [address] [place] [address] Eliane Peterson APRN [facility] [place] [address] Scheduled Procedures Name Priority Associated Diagnoses Date/Ti me INJECTION, FACET JOINT, W\FLUORO, LUMBAR, 2ND LEVEL (WRVU 1) Spondylosis of lumbar region without myelopathy or radiculopathy INJECTION, FACET JOINT, W\FLUORO, LUMBAR, SINGLE (WRVU 1.52) Spondylosis of lumbar region without myelopathy or radiculopathy documented as of this encounter Visit Diagnoses Not on filedocumented in this encounter Care Teams Clinical Neuropsychologist Relationship Specialty Start Date End Date Dilan Hernandez MD [address] [place] [address] [place] [phone] PCP - General 04/30/10 documented as of this encounter
--- OUTSIDE RECORDS SUMMARY | 2024-07-07 20:08 | XMS_ITS | Encounter Summary ---
Author Organization [facility] [place] [address] Care Team Providers Care Corporate Administrator Name Role Phone Dilan Hernandez MD Primary Care Provider [phone] Encounter Details Date Type Department Care Team (Late st Contact Info) Description 11/22/2020 Telephone [facility] [place] [address] Elke Araya RN Social History Tobacco Use Types Packs/Day Years Used Date Smoking Tobacco: Every Day Cigarettes Smokeless Tobacco: Never Sex and Gender Information Value Date Recorded Sex Assigned at Not on file Gender Identity Not on file Sexual Orientation Straight 09/21/2020 3: 34 PM EDT documented as of this encounter Miscellaneous Notes * Telephone Encounter - Elke Araya RN - 11/22/2020 9:01 AM EDT This RN received an incoming call from patient wanting to report her MBB scores from yesterday. During conversation, patient reported her pain was a lot worse today, More intense and frequent. Patient asked if there was anything they could give her to help with the pain it is near unbearable. I really am having a difficult time. This RN suggested patient try ice to her lower back as that often helps patients, and that some people find alternating between ice and heat will often help. This RN also informed patient that the clinic providers do not write/prescribe opioids, but they may have other thoughts/suggestions to help g et her through the next few days. Patients message would be routed to Madan SCHAEFER for review and advice. RUPA Johnston documented in this encounter Plan of Treatment Upcoming Encounters Date Type Department Care Team (Late st Contact Info) Description 07/12/2024 8:00 AM [facility] Hospital Encounter XRay at [address] [place] [address] Eliane Peterson, [place] [address] Scheduled Procedures Name Priority Associated Diagnoses Date/Ti me INJECTION, FACET JOINT, W\FLUORO, LUMBAR, 2ND LEVEL (WRVU 1) Spondylosis of lumbar region without myelopathy or radiculopathy INJECTION, FACET JOINT, W\FLUORO, LUMBAR, SINGLE (WRVU 1.52) Spondylosis of lumbar region without myelopathy or radiculopathy documented as of this encounter Visit Diagnoses Not on filedocumented in this encounter Care Teams Corporate Administrator Relationship Specialty Start Date End Date Dilan Hernandez MD [address] [place] [address] [place] [phone] PCP - General 04/30/10 documented as of this encounter
--- OUTSIDE RECORDS SUMMARY | 2024-07-07 20:08 | XMS_ITS | Encounter Summary ---
Author Organization [facility] [place] [address] Care Team Providers Care Bi Architect Name Role Phone Dilan Hernandez MD Primary Care Provider [phone] Encounter Details Date Type Department Care Team (Late st Contact Info) Description 12/25/2023 Orders Only Radiology at [facility] [place] [address] Tania Hernandez MD [facility] [place] [address] Social History Tobacco Use Types Packs/Day Years [...] AM EST Hospital Encounter XRay at [address] [place] [phone] Eliane Peterson APRN [facility] [place] [address] Scheduled Procedures Name Priority Associated Diagnoses Date/Ti me INJECTION, FACET JOINT, W\FLUORO, LUMBAR, 2ND LEVEL (WRVU 1) Spondylosis of lumbar region without myelopathy or radiculopathy INJECTION, FACET JOINT, W\FLUORO, LUMBAR, SINGLE (WRVU 1.52) Spondylosis of lumbar region without myelopathy or radiculopathy documented as of this encounter Visit Diagnoses Not on filedocumented in this encounter Care Teams Bi Architect Relationship Specialty Start Date End Date Dilan Hernandez MD [address] [place] [address] [place] [phone] PCP - General 04/30/10 documented as of this encounter
--- OUTSIDE RECORDS SUMMARY | 2024-07-07 20:08 | XMS_ITS | Encounter Summary ---
Author Organization [facility] [place] [address] Care Team Providers Care Gag Writer Name Role Phone Dilan Hernandez MD Primary Care Provider [phone] Encounter Details Date Type Department Care Team (Late st Contact Info) Description 11/22/2020 Telephone [facility] [place] [address] Elke Araya RN Social History Tobacco Use Types Packs/Day Years Used Date Smoking Tobacco: Every Day Cigarettes Smokeless Tobacco: Never Sex and Gender Information Value Date Recorded Sex Assigned at Not on file Gender Identity Not on file Sexual Orientation Straight 09/21/2020 3: 34 PM EDT documented as of this encounter Miscellaneous Notes * Telephone Encounter - Elke Araya RN - 11/22/2020 8:45 AM EDT [facility] MBB/RF Risk Stratification Post-procedure phone call from patient to report her response to the lumbar medial branch block procedure performed on 11/21/20 [facility] by Stephanie Vasquez MD. This is patient's: first medial branch block. Patient reports that after the procedure she experienced: _X_ Patient reported post-block numeric pain scale: 6 /10 (average pain since procedure) _X_ Post-procedure pain has been reduced by 40%. (> 80% Medicare/MVP/Medicaid) _X_ If relief > 80% with ability to perform painful maneuvers; schedule 2nd MBB: no _X_ Post-procedure pain has been reduced by 40%. (> 50% all other insurers) _X_ Pain relief: minimal Pain is more intense and frequent If pain is reduced, it lasted: Yes less than 4 hours Changes in functional status post procedure: difficulty walking _X_ Patient does not meet criteria for radiofrequency and will follow-up with their referring provider, Madan SCHAEFER , to discuss other options for treatment of their pain. Patient has a FUV scheduled on 12/13/20 Patient's questions regarding requested procedure were answered and patient verbalized understanding. knows how to contact the [facility] and understands that she may do so atany time should she develop any questions or concerns. RUPA Johnston documented in this encounter Plan of Treatment Upcoming Encounters Date Type Department Care Team (Late st Contact Info) Description 07/12/2024 8:00 AM [facility] Hospital Encounter XRay at [address] [place] [address] Eliane Peterson, VARNISH[employer] [place] [address] Scheduled Procedures Name Priority Associated Diagnoses Date/Ti me INJECTION, FACET JOINT, W\FLUORO, LUMBAR, 2ND LEVEL (WRVU 1) Spondylosis of lumbar region without myelopathy or radiculopathy INJECTION, FACET JOINT, W\FLUORO, LUMBAR, SINGLE (WRVU 1.52) Spondylosis of lumbar region without myelopathy or radiculopathy documented as of this encounter Visit Diagnoses Not on filedocumented in this encounter Care Teams Gag Writer Relationship Specialty Start Date End Date Dilan Hernandez MD [address] [place] [address] Dr [place], [place] [phone] PCP - General 04/30/10 documented as of this encounter
--- OUTSIDE RECORDS SUMMARY | 2024-07-07 20:08 | XMS_ITS | Encounter Summary ---
Author Organization [facility] [place] [address] Care Team Providers Care Clean Up Helper Banquet Name Role Phone Dilan Hernandez MD Primary Care Provider Reason for Visit * Reason Comments Follow-up Encounter Details Date Type Department Care Team (Latest Contact Info) Description 12/13/2020 1:30 PM EDT TH Visit (TeleHealth) [facility] [place] [address] Tabatha Fernández APRN [facility] [place] [address] Low back pain, non-specific Social History Tobacco [...] - Inhaled Oxygen Concentration - - Weight 65.3 kg (144 lb) 12/11/2020 8:22 AM EDT Height 154.9 cm (5' 1) 12/11/2020 8:22 AM EDT Body Mass Index 27.21 12/11/2020 8:22 AM EDT documented in this encounter Progress Notes * Tabatha Fernández APRN - 12/13/2020 1:30 PM EDT [facility] [place] [id number] Phone: PAIN MANAGEMENT FOLLOW UP NOTE DATE OF VISIT 12/13/2020 Patient Mallorie Burgess 1950 REFERRING PROVIDER Dilan Hernandez MD [address] [place] [address] [place] [address] PRIMARY CARE PROVIDER Dilan Hernandez MD CHIEF COMPLAINT: Mallorie Burgess is a 70 y.o.female with Back pain, who is seen in consultation at the request of Dilan Hernandez MD [address] [place] [address] [place] [address]. for evaluation, recommendations, and management.The history is [...] is here for follow-up. She schedule a [id number] follow-up visit we needed to do a [...] are also going to review her MRI [id number] although we did look at it together [...] together as she does not experience themseparately. Most recent MRI or Xray: EXAMINATION: MRI LUMBAR SPINE WO CONTRAST (GENERIC) ?? CLINICAL HISTORY: Lumbar radiculopathy, > 6 wks ? TECHNIQUE: MRI of the lumbar spine performed without intravenous contrast administration. ?? COMPARISON: None ?? FINDINGS: There is approximately 7 mm anterolisthesis of L5 on S1. There is convex left curvature of the lumbar spine with apex at L3/4. ?? Vertebral body height, alignment and marrow signal otherwise preserved, except focal osseous lesion bone marrow edema. Distal spinal cord is normal in signal and morphology. The conus terminates in somewhat low position at the mid L2 level. Cauda equina nerve roots are mildly undulating in the distal spinal canal. ?? T12/L1: Minimal disc bulge with minimal right foraminal component. No significant spinal canal or neural foraminal narrowing. ?? L1/2: Minimal central disc protrusion, with no significant spinal canal or neural foraminal narrowing. Mild bilateral degenerative facet and ligamentous hypertrophy. ?? L3/4: Moderate diffuse disc bulge, which flattens the ventral thecal sac. Moderate to severe bilateral degenerative facet hypertrophy and bilateral ligamentous hypertrophy, with moderate to severe central canal stenosis and narrowing of the right greater than left lateral recesses. There is moderate right and mild left L3/4 neural foraminal narrowing. ?? L4/5: Moderate diffuse disc bulge slightly asymmetric right foraminal component. Moderate severe bilateral degenerative facet hypertrophy and ligamentous hypertrophy. Moderate to severe central spinal canal stenosis, moderate to severe right and moderate left neural foraminal narrowing. Right greater than left lateral recess stenosis. ?? L5/S1: 7 mm anterolisthesis of L5 on S1 uncovers the intravertebral disc, which also bulges mildly. With moderate bilateral facet and ligamentous hypertrophy, there is moderate stenosis of the central spinal canal, bilateral lateral recess stenosis, moderate to severe bilateral neural foraminal narrowing. ?? IMPRESSION ?? 1. Degenerative changes of primarily the lower 3 levels of the lumbar spine, with moderate to severe central canal stenosis right greater than left neural foraminal narrowing at L3/4 and L4/5. 2. Anterolisthesis of L5 on S1 contributes to moderate central canal stenosis and bilateral neural foraminal stenosis. ? PAIN ASSESSMENT: Description: Ache radiates to sides and Weakness, numbness, tingling: weakness in the legs in upper thighs, feels like cannot walk across the room, anterior thigh numbness Saddle Anesthesia: no Other associated symptoms: no, urgency Alleviating factors: moving, lying down and elevated legs while sitting Aggravating factors:standing still Ave past week: 10/15 No flowsheet data found. 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 Medications 12/11/20821 Medication Sig Taking? UNABLE TO FIND 3 times daily. Med Name: *Restivin for Restless Leg Syndrome* Yes MAGNESIUM ORAL Take by mouth daily. *[place] Liquid form* Yes UNABLE TO FIND 2 times daily as needed. Med Name:*Generic Arthritis Medication* Yes omeprazole (PriLOSEC) 20 mg Capsule, Delayed Release(E.C.) Take 40 mg by mouth daily. Yes ferrous sulfate 324 mg (65 mg iron) Tablet, Delayed Release (E.C.) Take 324 mg by mouth every otherday. Yes escitalopram (Lexapro) 10 mg Tablet Take 10 mg by mouth Daily. Yes PROAIR HFA 90 mcg/actuation HFA Aerosol Inhaler INHALE TWO PUFFS BY MOUTH EVERY 4 HOURS NEEDED Yes TRELEGY ELLIPTA 100-62.5-25 mcg Disk with Device daily. Yes pramipexole (MIRAPEX) 1 mg Tablet Take 1.5 mg by mouth 2 times daily. Yes celecoxib (CeleBREX) 200 mg Capsule daily. ADVERSE DRUG REACTIONS Allergies as of 12/13/2020 ??? (No Known Allergies) MEDICAL HISTORY No past medical history on file. SURGICAL HISTORY No past surgical history on file. FAMILY HISTORY No family history on file. Comments about ORT in relation to this patient: Opioid Risk Category: low risk 0-3 PHYSICAL EXAMINATION The patient walks with a nonantalgic gait and can walk on heels and toes. She has normal strength and sensation and reflexes. She has a positive Kemps maneuver bilaterally. ASSESSMENT . She has lumbar spinal stenosis at the lower 3 levels of the lumbar spine with associated facet arthropathy Plan: She and I discussed a consultation with a surgeon versus a bilateral transforaminal injection at L4-5 to see if that might address her symptoms of her leg symptoms. Since she did not respond to the RFA would not repeat that. The patient is interested in surgical consultation but wishes to go to [facility] and so she will contact her primary care provider for referral. She has had prior surgery at [facility]. For some reason that is not possible and she wishes to see a surgeon here, she will contact me and I will make the appropriate referrals and order the appropriate imaging Mallorie Burgess had the opportunity to ask questions and indicated that all questions were answered to her satisfaction. Tabatha Fernández MS EMBROIDERY MACHINE OPERATOR-BC, PHYSICIAN ASST Nurse Practitioner [facility] documented in this encounter Plan of Treatment Upcoming Encounters Date Type Department Care Team (Late st Contact Info) Description 07/12/2024 8:00 AM [facility] Hospital Encounter XRay at [address] [place] [address] [place] [address] Scheduled Procedures Name Priority Associated Diagnoses Date/Ti me INJECTION, FACET JOINT, W\FLUORO, LUMBAR, 2ND LEVEL (WRVU 1) Spondylosis of lumbar region without myelopathy or radiculopathy INJECTION, FACET JOINT, W\FLUORO, LUMBAR, SINGLE (WRVU 1.52) Spondylosis of lumbar region without myelopathy or radiculopathy documented as of this encounter Visit Diagnoses Diagnosis Low back pain, non-specific documented in this encounter Care Teams Clean Up Helper Banquet Relationship Specialty Start Date End Date Dilan Hernandez MD [address] [place] [address] [place] [address] PCP - General 04/30/10 documented as of this encounter
--- OUTSIDE RECORDS SUMMARY | 2024-07-07 20:08 | XMS_ITS | Encounter Summary ---
[place] [address] Care Team Providers Care Garden Center Manager Name Role Phone Dilan Hernandez MD Primary Care Provider [phone] Reason for Referral * Consultation (Routine) - Closed Specialty Diagnoses / Procedures Referred By Contrao t Referred To Contact Pulmonology Diagnoses Chronic obstructive pulmonary disease, unspecified COPD type COPD, NOCTURNAL HYPOXIA Dilan Hernandez MD [address] [place] [address] [place] [address] [facility] Pulmonology [address] [place] [phone] Referral ID Status Reason Start Date Expiration Date V isits Requested Visits Authorized [id number] Closed Consult, Test & Treat PCP Updated and/or Approved 10/16/2023 10/15/2024 12 12 Encounter Details Date Type Department Care Team (Latest Contact Info) Description 11/05/2023 Transcribe Orders eDH Incoming Referrals [phone] Dilan Hernandez MD [address] [place] [address] [place] [address] Chronic obstructive pulmonary disease, unspecified COPD [...] st Contact Info) Description 07/12/2024 8:00 AM [facility] Encounter XRay at [address] [place] [address] Eliane Peterson, FINANCIAL [place] [address] Scheduled Procedures Name Priority Associated Diagnoses Date/Ti me INJECTION, FACET JOINT, W\FLUORO, LUMBAR, 2ND LEVEL (WRVU 1) Spondylosis of lumbar region without myelopathy or radiculopathy INJECTION, FACET JOINT, W\FLUORO, LUMBAR, SINGLE (WRVU 1.52) Spondylosis of lumbar region without myelopathy or radiculopathy Scheduled Referrals Name Type Priority Associated Diagnoses Orde r Schedule Referral to Pulmonology Outpatient Referral Routine Chronic obstructive pulmonary disease, unspecified COPD type Ordered: 11/05/2023 documented as of this encounter Visit Diagnoses Diagnosis Chronic obstructive pulmonary disease, unspecified COPD type documented in this encounter Care Teams Garden Center Manager Relationship Specialty Start Date End Date Dilan Hernandez MD [address] [place] [address] [place] [address] PCP - General 04/30/10 documented as of this encounter
--- OUTSIDE RECORDS SUMMARY | 2024-07-07 20:08 | XMS_ITS | Encounter Summary ---
Author Organization [facility] [place] [address] Care Team Providers Care Trim Setter Helper Name Role Phone Dilan Hernandez MD Primary Care Provider [phone] Encounter Details Date Type Department Care Team (Late st Contact Info) Description 11/22/2020 Telephone [facility] [place] [phone] Carie Shaikh, RN Social History Tobacco Use Types Packs/Day Years Used Date Smoking Tobacco: Every Day Cigarettes Smokeless Tobacco: Never Sex and Gender Information Value Date Recorded Sex Assigned at Not on file Gender Identity Not on file Sexual Orientation Straight 09/21/2020 3: 34 PM EDT documented as of this encounter Miscellaneous Notes * Telephone Encounter - Carie Shaikh RN - 11/22/2020 3:32 PM EDT Outgoing call was made to pt per Madan Fernández NON PROFIT FINANCIAL CONTROLLER to ask pt if she has any signs or symptoms of infection after the lumbar MBB done 11/21/20. Pt denied fever or chills or any other signs or symptoms of infection. Pt was asked if the pain had gotten any better after talking to Vickie GOODE and pt states she had just woken up from a three hour nap so she wasn't sure'. Pt states she has been using heat on the area but is going to try ice.Pt was advised that per Madan Fernández PRN,if pain has not gotten bettershe can either go to the ED or make an appointment to see Madan Fernández APRN in the clinic. Pt states she will wait to see how she feels after rest and ice. documented in this encounter Plan of Treatment Upcoming Encounters Date Type Department Care Team (Late st Contact Info) Description 07/12/2024 8:00 AM [facility] Hospital Encounter XRay at [address] [place] [address] [place] [address] Scheduled Procedures Name Priority Associated Diagnoses Date/Ti me INJECTION, FACET JOINT, W\FLUORO, LUMBAR, 2ND LEVEL (WRVU 1) Spondylosis of lumbar region without myelopathy or radiculopathy INJECTION, FACET JOINT, W\FLUORO, LUMBAR, SINGLE (WRVU 1.52) Spondylosis of lumbar region without myelopathy or radiculopathy documented as of this encounter Visit Diagnoses Not on filedocumented in this encounter Care Teams Trim Setter Helper Relationship Specialty Start Date End Date Dilan Hernandez MD [address] [place] [address] [place] [phone] PCP - General 04/30/10 documented as of this encounter
--- OUTSIDE RECORDS SUMMARY | 2024-07-07 20:08 | XMS_ITS | Encounter Summary ---
Author Organization [facility] [place] [address] Care Team Providers Care Manager Competitive Intelligence Name Role Phone Dilan Hernandez MD Primary Care Provider [phone] Encounter Details Date Type Department Care Team (Latest Contact Info) Description 10/13/2023 8:30 AM EDT Procedure [place] [address] Sherin Gong APRN [facility] [place] [address] of the abdomen; Abdominal distention Social History Tobacco Use Types Packs/Day Years Used Date Smoking Tobacco: Every Day Cigarettes Smokeless Tobacco: Never Sex and Gender Information Value Date Recorded Sex Assigned at Not on file Gender Identity Not on file Sexual Orientation Straight 09/21/2020 3: 34 PM EDT documented as of this encounter Procedure Notes * Sherin Gong APRN - 10/13/2023 8:30 AM EDTAssociated Order(s): FIBROSCAN Procedure(s): FIBROSCAN Pre-Procedure Diagnose(s): Abnormal CT of the abdomen; Abdominal distention [facility] Liver Fibrosis Assessment Report Indication: Suspected hepatic fibrosis based on CT scan Performed by: SHERIN GONG APRN Procedure: Vibration Controlled Transient Elastography (VCTE) or Fibroscan [place] Protocol: Patient's identity, procedure and site were verified, confirmatory pause performed. Discussed procedure including risks and potential complications. Questions answered. Patient verbalizes understanding and wishes to proceed with Fibroscan assessment. Patient was placed in the supine position with right arm in maximum abduction to allow optimal exposure of right lateral abdomen. Patient was briefly assessed. Testing was performed in the mid-axillary location. 50Hz Shear Wave pulses were applied and the resulting Shear Wave and Propagation Speed was detected with a 3.5MHz ultrasonic signal, using the Fibroscan probe. Skin to liver capsule distance and liver parenchyma were accessed during the entire examination with the Fibroscan probe. Patient was instructed to breathe normally and abstain from sudden movements during the procedure. At least ten Sheer Waves were produced; individual measurements of each Shear Wave were calculated. Patient tolerated the procedure well with no complications. Fibroscan Results: Median kPa: 3.0 kPa Mean IQR: 13% (goal is <30 %) Number of valid measurements: 11 (at least 10 required) Number of invalid measurements: 1 Predicted fibrosis stage: F0-1 CAP (dB/m): 320 Estimated steatosis grade: 3/3 % hepatocytes affected: >66% Interpretation: Based on this Fibroscan result, history, clinical examination and review of laboratory and radiological data, this patient likely has stage 0-1 liver fibrosis and grade 3 steatosis affecting over 66%of hepatocytes. documented in this encounter Plan of Treatment Upcoming Encounters Date Type Department Care Team (Late st Contact Info) Description 07/12/2024 8:00 AM [facility] Hospital Encounter XRay at [address] [place] [address] [place] [address] Scheduled Procedures Name Priority Associated Diagnoses Date/Ti me INJECTION, FACET JOINT, W\FLUORO, LUMBAR, 2ND LEVEL (WRVU 1) Spondylosis of lumbar region without myelopathy or radiculopathy INJECTION, FACET JOINT, W\FLUORO, LUMBAR, SINGLE (WRVU 1.52) Spondylosis of lumbar region without myelopathy or radiculopathy documented as of this encounter Procedures Procedure Name Priority Date/Time Associated Diagnosis Comments [id number] Routine 10/13/2023 8:[address] of the abdomen Abdominal distention documented in this encounter Results * [id number] (10/13/2023 8:30 AM EDT) Narrative Sherin Gong APRN - 10/13/2023 8:30 AM EDT Sherin Gong APRN ? 10/13/2023 ??8:50 AM [facility] Liver Fibrosis Assessment Report Indication: ?? Suspected hepatic fibrosis based on CT scan Performed by: ??SHERIN GONG APRN Procedure: Vibration Controlled Transient Elastography (VCTE) or Fibroscan [place] Protocol: Patient's identity, procedure and site were verified, confirmatory pause performed. Discussed procedure including risks and potential complications. Questions answered. Patient verbalizes understanding and wishes to proceed with Fibroscan assessment. Patient was placed in the supine position with right arm in maximum abduction to allow optimal exposure of right lateral abdomen. Patient was briefly assessed. Testing was performed in the mid-axillary location. 50Hz Shear Wave pulses were applied and the resulting Shear Wave and Propagation Speed was detected with a 3.5MHz ultrasonic signal, using the Fibroscan probe. Skin to liver capsule distance and liver parenchyma were accessed during the entire examination with the Fibroscan probe. Patient was instructed to breathe normally and abstain from sudden movements during the procedure. At least ten Sheer Waves were produced; individual measurements of each Shear Wave were calculated. Patient tolerated the procedure well with no complications. Fibroscan Results: Median kPa: 3.0 kPa Mean IQR: 13% (goal is <30 %) Number of valid measurements: 11 (at least 10 required) Number of invalid measurements: 1 Predicted fibrosis stage: F0-1 CAP (dB/m): 320 Estimated steatosis grade: 3/3 % hepatocytes affected: >66% Interpretation: Based on this Fibroscan result, history, clinical examination and review of laboratory and radiological data, this patient likely has stage 0-1 liver fibrosis and grade 3 steatosis affecting over 66% of hepatocytes. ?? [place] Flores APRN PROCEDURE/MINOR CHERI GICAL ORDERABLES documented in this encounter Visit Diagnoses Diagnosis Abnormal CT of the abdomen Nonspecific (abnormal) findings on radiological and other examination of abdominal area, including retroperitoneum Abdominal distention Flatulence, eructation, and gas pain documented in this encounter Care Teams Manager Competitive Intelligence Relationship Specialty Start Date End Date Dilan Hernandez MD [address] [place] [address] [place] [phone] PCP - General 04/30/10 documented as of this encounter
--- OUTSIDE RECORDS SUMMARY | 2024-07-07 20:08 | XMS_ITS | Encounter Summary ---
Author Organization [facility] [place] [address] Care Team Providers Care Wall Scraper Name Role Phone Dlian Hernandez MD Primary Care Provider [phone] Encounter Details Date Type Department Care Team (Late st Contact Info) Description 10/02/2020 Notes Only [facility] [place] [address] Marge Perry Social History Tobacco Use Types Packs/Day Years Used Date Smoking Tobacco: Every Day Cigarettes Smokeless Tobacco: Never Sex and Gender Information Value Date Recorded Sex Assigned at Not on file Gender Identity Not on file Sexual Orientation Straight 09/21/2020 3: 34 PM EDT documented as of this encounter Progress Notes * Marge Perry - 10/02/2020 2:28 PM EDT Procedure: Lumbar MBB MRI required? no (If yes, verify that updated MRI is in eDH) ([place]-Axial Joint injection, NICOLE; 1 year or <)(Caudal PER, LESI, Thoracic PER, TFESI Lumbar & Cervical; 2 years or <) RISK LEVEL: Low Are you on any blood thinners? n/a (If yes, specify medication type and prescribing provider for anticoagulant hold request) Medication: n/a Prescribing provider: n/a Reminder: Coumadin requires an INR lab 1 hour prior to procedure Are you taking any NSAIDs? n/a Type of NSAID: n/a Are you currently taking any oral steroids (i.e. prednisone) or have you had a steroid injection within the past two weeks? no If YES to oral steroids: Have you been taking more than 40mg a day for more than 14 days? If no, okay to schedule. Are you currently taking or have you recently been treated with antibiotics? no Have you been in the ER or hospitalized recently? no If yes. Why? Do you have any allergies to anesthetics or steroids? no Are you diabetic? no (In the case of type I diabetes, steroids injections can make blood sugar spike) Is this being billed to workers comp or your regular insurance (verify insurance)? Worker's Comp no Insurance: [employer] and Medicare A Have you had or are you scheduled to have a COVID vaccine? Yes Date of First Dose 08/21/20 Date of Second Dose 09/17/20 Is this a STEROID injection (anything other than RFA, MBB, Lumbar Puncture, or Blood Patch)? Yes If you have a date set for your COVID vaccine -1st or 2nd dose-, please schedule your steroid injection at least 2 weeks before, or 1 week after your vaccine. If you already have a date set for your steroid injection, please schedule your vaccine, either at least 1 week before, or at least 2 weeks after the date of your injection. Spine Intervention Society Recommendation: Fact: There is currently no direct evidence to suggest that a corticosteroid injection before or after the administration of an mRNA COVID-19 vaccine decreases the efficacy of the vaccine. However, based on the known timeline of qpnhijeqbjlu-yysdnjuar-iviqvum (HPA) axis suppression following epidural and intraarticular corticosteroid injections, and the timeline of the reported peak efficacy of the Pfizer-BioNTech and Moderna vaccines, physicians should consider timing an elective corticosteroid injection such that it is administered no less than two weeks prior to a COVID-19 mRNA vaccine dose and no less than one week following a COVID-19 mRNA vaccine dose, whenever possible. documented in this encounter Plan of Treatment Upcoming Encounters Date Type Department Care Team (Late st Contact Info) Description 07/12/2024 8:00 AM [facility] Hospital Encounter XRay at [address] [place] [address] Eliane Peterson APRN [facility] [place] [address] Scheduled Procedures Name Priority Associated Diagnoses Date/Ti me INJECTION, FACET JOINT, W\FLUORO, LUMBAR, 2ND LEVEL (WRVU 1) Spondylosis of lumbar region without myelopathy or radiculopathy INJECTION, FACET JOINT, W\FLUORO, LUMBAR, SINGLE (WRVU 1.52) Spondylosis of lumbar region without myelopathy or radiculopathy documented as of this encounter Visit Diagnoses Not on filedocumented in this encounter Care Teams Wall Scraper Relationship Specialty Start Date End Date Dilan Hernandez MD [address] [place] [address] [place] [phone] PCP - General 04/30/10 documented as of this encounter
--- OUTSIDE RECORDS SUMMARY | 2024-07-07 20:08 | XMS_ITS | Encounter Summary ---
Author Organization [facility] [place] [address] Care Team Providers Care Blood Bank Worker Name Role Phone Dilan Hernandez MD Primary Care Provider Reason for Visit * Auth/Cert Specialty Diagnoses [...] Expiration Date Visits Re quested Visits Authorized [id number] 1 1 Encounter Details Date Type Department Care Team (Late st Contact Info) Description 11/21/2020 8:30 AM EDT - 11/21/2020 9:15 AM EDT [place] [phone] Stephanie Vasquez MD INJECTION, FACET JOINT, W\FLUORO, LUMBAR, 3RD LEVEL (WRVU 1) Social History Tobacco Use Types Packs/Day Years Used Date Smoking Tobacco: Every Day Cigarettes Smokeless Tobacco: Never Sex and Gender Information Value Date Recorded Sex Assigned at Not on file Gender Identity Not on file Sexual Orientation Straight 09/21/2020 3: 34 PM EDT documented as of this encounter Last Filed Vital Signs Vital Sign Reading Time Taken Comments Blood Pressure 123/74 11/21/2020 9:15 AM EDT Pulse - - Temperature - - Respiratory Rate - - Oxygen Saturation 100% 11/21/2020 9:15 AM EDT Inhaled Oxygen Concentration - - [...] Date/Time Order Dose Route Action {\field{\*\fldinst HYPERLINK ecmd:ord?as=[id number]}{\fldrslt \18 11/21/2020 0931}} BUpivacaine (pf) (Marcaine) (5 mg/mL) 0.5% injection 4 mL Epidural Given {\field{\*\fldinst HYPERLINK ecmd:ord?cf=[id number]}{\fldrslt \18 11/21/2020 0931}} iohexoL (Omnipaque) (240 mg/mL) [...] Post -Procedure Pain Log Patient: Mallorie Burgess [id number] It is important for you to keep [...] 4 MAGNESIUM ORAL Take by mouth daily. *Paoli Liquid form* 04/07/2024 UNABLE TO FIND 2 [...] ??? MAGNESIUM ORAL Take by mouth daily. *Paoli Liquid form* ??? UNABLE TO FIND 2 [...] lumbar medial branch block, bilateral L3, L4, L5- Addressed all questions and concerns. Risks and benefits discussed with patient. No contraindications to the procedure at this time, will proceed. Riley Fernandez MD Pain Management Fellow [facility] [address] [phone] [email or web address] documented in this encounter Miscellaneous Notes * Op Note - Stephanie Vasquez MD - 11/21/2020 8:59 AM EDT Pain Management Operative Note Patient Name: Mallorie Burgess : [id number] MR#: [id number] Case Date: 11/21/2020 Surgeon: Surgeon(s) and Role: [...] for the entire procedure. Stephanie Vasquez MD [employer] [facility] [employer] [facility] Anesthes[facility] Section of Pain Medicine ABPN-subspecialty board certification in Pain Medicine CC: No referring provider defined for this encounter. documented in this encounter Plan of Treatment Upcoming Encounters Date Type Department Care Team (Late st Contact Info) Description 07/12/2024 8:00 AM [facility] Hospital Encounter XRay at [address] [place] [address] [place] [address] Scheduled Orders Name Type Priority Associated Diagnoses [...] Facet arthropathy, lumbar Lumbosacral spondylosis without myelopathy Facet arthropathy, lumbar Lumbosacral spondylosis without myelopathy documented in this encounter Admitting Diagnoses Diagnosis Facet arthropathy, lumbar Lumbosacral spondylosis without myelopathy documented in this encounter Administered Medications Inactive Administered Medications - up to 3 most recent administrations Medication Order MAR Action Action Date Dose Rate Site BUpivacaine (pf) (Marcaine) (5 mg/mL) 0.5% injection ONCE PRN, Starting on Thu11/21/20 at 0900, Until Thu11/21/20 at 1154, Intra-Operative (Intra-Procedure), Routine Given 11/21/2020 9:31 AM EDT 4 mLs iohexoL (Omnipaque) (240 mg/mL) injection solution ONCE PRN, Starting on Thu11/21/20 at 0859, Until Thu11/21/20 at 1154, Intra-Operative (Intra-Procedure), Routine Given 11/21/2020 9:31 AM EDT 2 mLs documented in this encounter Active and Recently [...] MD) documented in this encounter Care Teams Blood Bank Worker Relationship Specialty Start Date End Date Dilan Hernandez MD [address] [place] [address] [place] [phone] PCP - General 04/30/10 documented as of this encounter
--- OUTSIDE RECORDS SUMMARY | 2024-07-07 20:08 | XMS_ITS | Encounter Summary ---
[facility] [place] [address] Care Team Providers Care Server Systems Administrator Name Role Phone Dilan Hernandez MD Primary Care Provider [phone] Encounter Details Date Type Department Care Team (Late st Contact Info) Description 11/20/2020 Telephone [facility] [place] [address] Rebecca Sanchez RN Social History Tobacco Use Types Packs/Day Years Used Date Smoking Tobacco: Every Day Cigarettes Smokeless Tobacco: Never Sex and Gender Information Value Date Recorded Sex Assigned at Not on file Gender Identity Not on file Sexual Orientation Straight 09/21/2020 3: 34 PM EDT documented as of this encounter Miscellaneous Notes * Telephone Encounter - Rebecca Sanchez RN - 11/20/2020 5:14 PM EDT Mallorie Burgess :1950 I spoke to Ms. Burgess at 5:14 PM regarding upcoming Bilateral lumbar radiofrequency scheduled on 11/21/20 (date) scheduled at 0830 (time) with Dr. Stephanie Vasquez MD. Medication and Allergy reconciliation: 1. Changes were made in the telephone encounter per patient; marked as reviewed, and closed. 3. Have you had any steroid injections anywhere in your body within the last two weeks? no Arrival time: The patient was instructed to arrive at 0800 (30 minutes prior to procedure start time - 60 minutesprior for RF patients with a pacemaker). Antibiotics/Skin assessment/Illness symptoms/Pain level assessment : 1. Are you currently taking an antibiotic for any active infections No 2. Do you currently have any rashes, blisters, skin breakdown or open wounds. No 3. Are you still experiencing pain? Yes 4. Have you received, or are you scheduled to received a COVID vaccination Yes . 2nd dose September perp Pain and Anti-anxiety Medications: 1. Nerve Block Procedure Patients: Patient was instructed NOT to take their pain medications on theday of the procedure and anti-anxiety medications are part of their daily medication regiment; theycan and should continue taking that medication. 2. All Other Procedure Patients: The patient was instructed that if they take daily pain or anti-anxiety medications, they can and should continue taking on the day of the procedure. Does patient have history of any diagnosed bleeding disorders: No Anticoagulants: No NPO instructions given to patient: 1. Last solid food intake until 0230 (6 hours prior to procedure). 2. Clear liquids (anne-marie johann, tea, black coffee, water, grape juice, apple juice, or cranberry juice) only intake until 0630 (2 hours prior to procedure). NSAIDs: Does the patient take Aspirin/ASA? No Does the patient take an NSAID? No Diabetic instructions: Patient was advised to inform their PCP regarding safe fasting and the NPO requirements for their upcoming procedure and given the Pain Management Center Nurse Triage Line . Implant: Patient has pacemaker/defibrillator: No Mamadou RN documented in this encounter Plan of Treatment Upcoming Encounters Date Type Department Care Team (Late st Contact Info) Description 07/12/2024 8:00 AM EST Hospital Encounter XRay at [address] [place] [address] Eliane Peterson APRN [facility] [address] Scheduled Procedures Name Priority Associated Diagnoses Date/Ti me INJECTION, FACET JOINT, W\FLUORO, LUMBAR, 2ND LEVEL (WRVU 1) Spondylosis of lumbar region without myelopathy or radiculopathy INJECTION, FACET JOINT, W\FLUORO, LUMBAR, SINGLE (WRVU 1.52) Spondylosis of lumbar region without myelopathy or radiculopathy documented as of this encounter Visit Diagnoses Not on filedocumented in this encounter Care Teams Server Systems Administrator Relationship Specialty Start Date End Date Dilan Hernandez MD [address] [place] [address] [place] [phone] PCP - General 04/30/10 documented as of this encounter
--- OUTSIDE RECORDS SUMMARY | 2024-07-07 20:08 | XMS_ITS | Encounter Summary ---
[place] [address] Care Team Providers Care Senior Branch Manager Name Role Phone Dilan Hernandez MD Primary Care Provider [phone] Reason for Visit * Auth/Cert Specialty Diagnoses / Procedures Referred By Albert t Referred To Contact Diagnoses facet arth, spinal stenosis, NC Procedures PRO INJECTION DX/THER SBST INTRLMNR LMBR/SAC W/IMG GDN INJECTION, EPIDURAL, LUMBAR OR SACRAL (CAUDAL), WITH IMAGING GUIDANCE (WRVU 1.8) Referral ID Status Reason Start Date Expiration Date Visits Re quested Visits Authorized [id number] 1 1 Encounter Details Date Type Department Care Team (Late st Contact Info) Description 09/24/2020 12:15 PM EDT - 09/24/2020 12:45 PM EDT [place] [phone] Stephanie Vasquez MD INJECTION, EPIDURAL, LUMBAR OR SACRAL (CAUDAL), [...] Sign Reading Time Taken Comments Blood Pressure 132/71 09/24/2020 12:20 PM EDT Pulse 85 09/24/2020 11:22 AM EDT Temperature - - Respiratory Rate 18 09/24/2020 12:20 PM EDT Oxygen Saturation 97% 09/24/2020 12:20 PM EDT Inhaled Oxygen Concentration - - Weight 68 kg (150 lb) 09/24/2020 11:22 AM EDT Height 154.9 cm (5' 1) 09/24/2020 11:22 AM EDT Body Mass Index 28.34 09/24/2020 11:22 AM EDT documented in this encounter Discharge Instructions * Discharge Instructions* Carie Shaikh RN - 09/24/2020 12:26 PM EDT Pain Management Center Discharge Instructions: You were seen today by Surgeon(s): Stephanie Vasquez MD The following was performed: Procedure(s) (LRB): INJECTION, EPIDURAL, LUMBAR OR SACRAL (CAUDAL), WITH IMAGING GUIDANCE (WRVU 1.8) (Midline) It is normal that the injection site will be sore for up to 48 hours. [x] You may also experience mild stiffness in the joint near the injection site. You may resume your normal activities: tomorrow. You may shower today. DO NOT tub [...] During Procedure Date/Time Order Dose Route Action 09/24/2020 1225 dexamethasone (PF) (Decadron) (10 mg/mL) injection 15 mg Epidural Given 09/24/2020 1222 iohexoL (Omnipaque) (240 mg/mL) injection solution 1 mL Epidural Given During regular business hours, [...] or proceed to your local emergency department. Carie Shaikh RN Special instructions documented in this encounter Medications at Time [...] morning and two at night per patient rOPINIRole (REQUIP) 0.5 mg Tablet Take 0.5 mg by mouth Twice daily. 10/02/2020 ondansetron ODT (Zofran-ODT) 4 mg Tablet, Rapid Dissolve Take 4 mg by mouth Every 8 hours as needed. 03/02/2020 12/11/2020 omeprazole (PriLOSEC) 20 mg Capsule, Delayed Release(E.C.) Take 40 mg by mouth daily. 03/30/2024 ferrous gluconate 324 mg (38 mg iron) Tablet 08/19/2020 10/03/19 cyclobenzaprine (Flexeril) 10 mg Tablet as needed. 08/20/2020 07/11/2020 TRELEGY ELLIPTA 100-62.5-25 mcg Disk with Device daily. 05/25/2019 12/07/2023 ranitidine (ZANTAC) 150 mg Capsule Take 150 mg by mouth 2 times daily. 10/02/2020 documented as of this encounter H&P Notes * Stephanie Vasquez MD - 09/24/2020 12:30 PM EDT Patient Name: Mallorie Burgess Patient Age: 70 y.o. Birthdate: 1950 Admit date: 09/24/2020 Attending Physician: Stephanie Vasquez MD PREPROCEDURE HISTORY AND PHYSICAL Date of Visit: September 24, 2020 Chief Complaint: Back and right more than left leg pain. HPI: Subjective Mallorie Burgess is a 70 y.o. female who presents today for trial of lumbar epidural steroid injection referred by Ms Tabatha Fernández APRN. Patient was evaluated via tele-health The history is obtained from the patient, and I have reviewed medical records provided by the referring physician and located in the electronic medical record to fill in gaps in the patient's recollection of events, treatments and outcomes. LOCATION: radiating to bilateral leg(s). PAIN LEVEL AT REST 7/10 PAST MEDICAL HISTORY: No past medical history on file. PAST SURGICAL HISTORY: No past surgical history on file. ALLERGIES: Patient has no known allergies. MEDICATIONS: No current facility-administered medications on file prior to encounter. Current Outpatient Medications on File Prior to Encounter Medication Sig Dispense Refill ??? rOPINIRole (REQUIP) 0.5 mg Tablet Take 0.5 mg by mouth Twice daily. ??? ondansetron ODT (Zofran-ODT) 4 mg Tablet, Rapid Dissolve Take 4 mg by mouth Every 8 hours as needed. ??? omeprazole (PriLOSEC) 20 mg Capsule, Delayed Release(E.C.) Take 40 mg by mouth. ??? ferrous sulfate 324 mg (65 mg iron) Tablet, Delayed Release (E.C.) Take 324 mg by mouth. ??? escitalopram (Lexapro) 10 mg Tablet Take 10 mg by mouth Daily. ??? ferrous gluconate 324 mg (38 mg iron) Tablet ??? cyclobenzaprine (Flexeril) 10 mg Tablet ??? PROAIR HFA 90 mcg/actuation HFA Aerosol Inhaler INHALE TWO PUFFS BY MOUTH EVERY 4 HOURS NEEDED ??? TRELEGY ELLIPTA 100-62.5-25 mcg Disk with Device ??? ranitidine (ZANTAC) 150 mg Capsule Take 150 mg by mouth 2 times daily. ??? pramipexole (MIRAPEX) 1 mg Tablet Take 2 mg by mouth nightly. FAMILY HISTORY: No family history on file. SOCIAL HISTORY: Social History Socioeconomic History ??? Marital status: Spouse name: Not on file ??? Number of children: Not on file ??? Years of education: Not on file ??? Highest education level: Not on file Occupational History ??? Not on file Tobacco Use ??? Smoking status: Current Every Day Smoker ??? Smokeless tobacco: Never Used Substance and Sexual Activity ??? Alcohol use: [...] Week: ??? Minutes of Exercise per Session: Stress: ??? Feeling of Stress : Social Connections: ??? Frequency of Communication with Friends and Family: ??? Frequency of Social Gatherings with Friends and Family: ??? Attends Sabianism Services: ??? Active Member of Clubs or Organizations: ??? Attends Club or Organization Meetings: ??? Marital Status: Intimate Partner Violence: ??? Fear of Current or Ex-Partner: ??? Emotionally Abused: ??? Physically Abused: ??? Sexually Abused: ROS: Denies fever, chills, SOB, abdominal pain, leg weakness/numbnes, arm weakness/numbness, bowel or bladder incontinence, balance issues PHYSICAL EXAM: BP 132/71 Pulse 85 Resp 18 Ht 154.9 cm (5' 1) Wt 68 kg (150 lb) SpO2 97% BMI 28.34 kg/m?? Physical Exam Vitals reviewed. Cardiovascular: Pulses: Normal pulses. Pulmonary: Effort: Pulmonary effort is normal. Musculoskeletal: General: No swelling or tenderness. Skin: General: Skin is warm and dry. Findings: No erythema. RADIOLOGIC DATA: MRI L spine reviewed with patient LABS/DX RESULTS: Last 3 wbc, hgb, hct [...] the last 7068 hours. ASSESSMENT: Assessment 1. DDD (degenerative disc disease), lumbar 2. DDD (degenerative disc disease), lumbar Lumbar radiculopathy PLAN: - proceed with JULIEN Vasquez MD Data Processing Auditor of Anesthesiology [facility] [address] [phone] / [facility] documented in this encounter Miscellaneous Notes * Op Note - Stephanie Vasquez MD - 09/24/2020 12:17 PM EDT Pain Management Operative Note Patient Name: Mallorie Burgess : [id number] MR#: [id number] Case Date: 09/24/2020 Surgeon: Surgeon(s) and Role: * Stephanie Vasquez MD - Primary * James Valentin MD - Secondary Procedure(s) (LRB): INJECTION, EPIDURAL, LUMBAR OR SACRAL (CAUDAL), WITH IMAGING GUIDANCE (WRVU 1.8) (Midline) LUMBAR INTERLAMINAR EPIDURAL STERIOID INJECTION PROCEDURE NOTE . Mallorie Burgess has been referred to the Pain Management Center for a lumbar epidural steroid injection by Tabatha Fernández APRN [facility] [place] [address]. The patient complains of low back pain with pain radiating down the right more than left leg. Patient had previously received TFESI in with good pain relief, review of previous fluoroscopic images from our record indicates L4 TFESI on the left. Patient reports right more than left leg pain. I reviewed the MRI L spine result with patient in the pre-operative area today. Ms. Burgess was greeted by the nurse [...] The skin entry point for entering/approaching the L4-L5 epidural space for the lumbar epidural steroid injection was marked. Following thorough chlorhexadine preparationof the skin and draping and 1% lidocaine infiltration of the skin entry point and subcutaneous tissues, an 18 gauge Touhy needle was placed and advanced under fluoroscopic guidance and with loss of resistance technique into the L4-L5 epidural space. Needle tip placement and depth were aided and confirmed by fluoroscopy. There was no paresthesia or return of blood or CSF through the needle. 3 cc'sof Omnipaque 240 was injected with clear epidural spread confirmed with fluoroscopy. 10 mg of preservative-free Dexamethasone (10 mg/cc) was injected. This was followed by 1 cc of preservative-free normal saline to flush the steroid out of the needle. There was not any unusual discomfort expressed by Ms. Burgess. Ms. Burgess's vital signs were stable throughout the procedure and were as recorded in nursing records. Follow up plans and appointments were discussed with Ms. Burgess. The patient is set to follow up with Ms Tabatha Fernández APRN. Post procedure instruction was given as documented in nursing records and having met discharge criteria he was discharged from the Pain Management Center. Comments: If this procedure is successful in helping with pain and improving her function, it can be completed a maximum of 3 times every 12 months. James Valentin MD Food Service Assistant Patient reports occasional leg weakness. BLE motor strength were intact today. I explained to patient that she may have pain limited leg weakness. If today's injection fails to achieve significant pian relief, then she should schedule a follow up clinic visit with Ms Tabatha Fernández APRN to discuss the next steps. I was the supervising attending for this procedure and I was present during the entire time. Stephanie Vasquez MD ABPN-subspecialty board certification in Pain Medicine Attending Physician - Pain Management CC: Tabatha Fernández PRECISION LATHE OPERATOR [facility] [place] [address] documented in this encounter Plan of Treatment Upcoming Encounters Date Type Department Care Team (Late st Contact Info) Description 07/12/2024 8:00 AM [facility] Hospital Encounter XRay at [address] [place] [address] Eliane Peterson PRECISION LATHE OPERATOR [facility] [place] [address] Scheduled Orders Name Type Priority Associated Diagnoses Orde r Schedule INJECTION, EPIDURAL, LUMBAR OR SACRAL (CAUDAL), WITH IMAGING GUIDANCE Procedures Routine DDD (degenerative disc disease), lumbar One Time for 1 Occurrences starting 09/24/2020 until 09/24/2020 Scheduled Procedures Name Priority Associated Diagnoses Date/Ti me INJECTION, FACET JOINT, W\FLUORO, LUMBAR, 2ND LEVEL (WRVU 1) Spondylosis of lumbar region without myelopathy or radiculopathy INJECTION, FACET JOINT, W\FLUORO, LUMBAR, SINGLE (WRVU 1.52) Spondylosis of lumbar region without myelopathy or radiculopathy documented as of this encounter Visit Diagnoses Diagnosis DDD (degenerative disc disease), lumbar- Primary Degeneration of lumbar or lumbosacral intervertebral disc DDD (degenerative disc disease), lumbar Degeneration of lumbar or lumbosacral intervertebral disc documented in this encounter Admitting Diagnoses Diagnosis DDD (degenerative disc disease), lumbar Degeneration of lumbar or lumbosacral intervertebral disc documented in this encounter Administered Medications Inactive Administered Medications - up to 3 most recent administrations Medication Order MAR Action Action Date Dose Rate Site dexamethasone (PF) (Decadron) (10 mg/mL) injection ONCE PRN, Starting on Thu09/24/20 at 1225, Until Thu09/24/20 at 1431, Intra-Operative (Intra-Procedure), Routine Given 09/24/2020 12:25 PM EDT 15 mg iohexoL (Omnipaque) (240 mg/mL) injection solution ONCE PRN, Starting on Thu09/24/20 at 1222, Until Thu09/24/20 at 1431, Intra-Operative (Intra-Procedure), Routine Given 09/24/2020 12:22 PM EDT 1 mL documented in this encounter Active and Recently Administered Medications Times are shown in EDT. PRN Medication Order 09/22/2020 09/23/2020 09/24/2020 dexamethasone (PF) (Decadron) (10 mg/mL) injection (CANCELED) ONCE PRN, Starting on Thu09/24/20 at 1225, Until Thu09/24/20 at 1431, Intra-Operative (Intra-Procedure), Routine 1225 (Given - Provid er: Stephanie Vasquez MD) iohexoL (Omnipaque) (240 mg/mL) injection solution (CANCELED) ONCE PRN, Starting on Thu09/24/20 at 1222, Until Thu09/24/20 at 1431, Intra-Operative (Intra-Procedure), Routine 1222 (Given - Provid er: Stephanie Vasquez MD) documented in this encounter Care Teams Senior Branch Manager Relationship Specialty Start Date End Date Dilan Hernandez MD [address] [place] [address] [place] [phone] PCP - General 04/30/10 documented as of this encounter
--- OUTSIDE RECORDS SUMMARY | 2024-07-07 20:08 | XMS_ITS | Encounter Summary ---
Author Organization [facility] Address [facility] [place] [address] Care Team Providers Care Special Effects Person Name Role Phone Dilan Hernandez MD Primary Care Provider [phone] Encounter Details Date Type Department Care Team (Late st Contact Info) Description 08/24/2023 Interpretation Only Radiology Library at [facility] [place] [address] Nino Ayala MD [address] [place] [address] [place] [address] Social History Tobacco Use Types Packs/Day Years [...] AM EST Hospital Encounter XRay at [address] [place] [address] Eliane Peterson APRN [facility] [place] [address] Scheduled Procedures Name Priority Associated Diagnoses Date/Ti me INJECTION, FACET JOINT, W\FLUORO, LUMBAR, 2ND LEVEL (WRVU 1) Spondylosis of lumbar region without myelopathy or radiculopathy INJECTION, FACET JOINT, W\FLUORO, LUMBAR, SINGLE (WRVU 1.52) Spondylosis of lumbar region without myelopathy or radiculopathy documented as of this encounter Procedures Procedure Name Priority Date/Time Associated Diagnosis Comments FILM LIBRARY STORAGE ONLY CT CHEST Routine 08/24/2023 9:45 AM EDT documented in this encounter Results * Film Library- Storage Only CT Chest (08/24/2023 9:45 AM EDT) 01/12/2024 12:2 3 PM EDT Narrative [facility] - 01/12/2024 12:23 PM EDT This exam is auto-finalizing. It's purpose is for storage only. Nino Ayala MD IMG FILM LIBRARY ORD ERABLES [place], [place] documented in this encounter Visit Diagnoses Not on filedocumented in this encounter Care Teams Special Effects Person Relationship Specialty Start Date End Date Dilan Hernandez MD [address] [place] [address] [place] [phone] PCP - General 04/30/10 documented as of this encounter
--- OUTSIDE RECORDS SUMMARY | 2024-07-07 20:08 | XMS_ITS | Encounter Summary ---
Author Organization [facility] [place] [address] Care Team Providers Care Safe And Vault Installer Name Role Phone Dilan Hernandez MD Primary Care Provider [phone] Encounter Details Date Type Department Care Team (Late st Contact Info) Description 12/25/2023 Telephone [place] [phone] Jeronimo Domínguez RN Social History Tobacco Use Types Packs/Day [...] encounter Miscellaneous Notes * Telephone Encounter - Jeronimo Domínguez RN - 12/28/2023 9:56 AM EDT Images from the original note were not included. Eliane Peterson APRN Harder, Eridana G, RN; P [facility] Gastro Motility Nurse Caller: Unspecified (3 days ago, 3:19 PM) I am not sure why they said that? Was it a different provider she saw that was going to order it? I have no indication to. Ferdinand ~ Called pt and left message requesting that pt return call to office. Msg left on pt identified voice mail. * Telephone Encounter - Jeronimo Domínguez RN - 12/25/2023 3:19 PM EDT TC from Radiology who leaves explaining that pt thought Ferdinand Peterson was going to order a CT-Scan and MRI for her. Review of last office note 12/16/23 does not mention ordering these tests. Forwarded to Provider to review and advise. documented in this encounter Plan of Treatment Upcoming Encounters Date Type Department Care Team (Late st Contact Info) Description 07/12/2024 8:00 AM [facility] Hospital Encounter XRay at [address] [place] [address] [place] [address] Scheduled Procedures Name Priority Associated Diagnoses Date/Ti me INJECTION, FACET JOINT, W\FLUORO, LUMBAR, 2ND LEVEL (WRVU 1) Spondylosis of lumbar region without myelopathy or radiculopathy INJECTION, FACET JOINT, W\FLUORO, LUMBAR, SINGLE (WRVU 1.52) Spondylosis of lumbar region without myelopathy or radiculopathy documented as of this encounter Visit Diagnoses Not on filedocumented in this encounter Care Teams Safe And Vault Installer Relationship Specialty Start Date End Date Dilan Hernandez MD [address] [place] [address] [place] [address] PCP - General 04/30/10 documented as of this encounter
--- OUTSIDE RECORDS SUMMARY | 2024-07-07 20:08 | XMS_ITS | Encounter Summary ---
Author Organization [facility] [place] [address] Care Team Providers Care Guest House Manager Name Role Phone Dilan Hernandez MD Primary Care Provider [phone] Encounter Details Date Type Department Care Team (Late st Contact Info) Description 12/28/2023 10:20 AM EDT Ancillary Procedure Radiology Library [facility] [place] [address] Micah Ortega MD [facility] [place] [address] Social History Tobacco Use Types Packs/Day Years [...] AM EST Hospital Encounter XRay at [address] [place] [address] Eliane Peterson APRN [facility] [place] [address] Scheduled Procedures Name Priority Associated Diagnoses Date/Ti [...] AM EDT) 12/31/2023 2:46 AM EDT Narrative [facility] - 12/31/2023 2:46 AM EDT This exam is auto-finalizing. It's purpose is for storage only. Micah Ortega MD IMG FILM LIBRARY ORD ERABLES Performing Organization Address City/State/[facility] Co de Phone Number [place], [place] documented in this encounter Visit Diagnoses Not on filedocumented in this encounter Care Teams Guest House Manager Relationship Specialty Start Date End Date Dilan Hernandez MD [address] [place] [address] BRYCE Beltran [phone] PCP - General 04/30/10 documented as of this encounter
--- OUTSIDE RECORDS SUMMARY | 2024-07-07 20:08 | XMS_ITS | Encounter Summary ---
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; Abnormal CT of the abdomen; Abdominal distention; History of peptic ulcer disease; Recurrent UTI (urinary tract infection); Chronic obstructive pulmonary disease, unspecified COPD type Social History Tobacco Use Types Packs/Day Years Used Date Smoking Tobacco: Every Day Cigarettes Smokeless Tobacco: Never Sex and Gender Information Value Date Recorded Sex Assigned at Not on file Gender Identity Not on file Sexual Orientation Straight 09/21/2020 3: 34 PM EDT documented as of this encounter Patient Instructions * Patient Instructions* Alberta Flores APRN - 08/03/2023 8:45 AM EST Images from the original note were not included. Mallorie Burgess It was nice to meet you today. The following orders were placed during our visit today: Orders Placed This Encounter Procedures FibroScan For procedures that have been ordered please call :Endoscopy Scheduling at [phone] As the results come back from your various tests, we will only contact you for results which require urgent attention. Otherwise, you will receive these results from our team either at a follow-up visit, phone call, letter, or through eDH. You will likely see the results through your [facility] portal several days before you get additional communication. This is normal. Please note: given the demand for gastrointestinal testing, there have been delays in the scheduling and completion of various investigative studies. We are working to improve this, and in the meantime, we appreciate your patience and cooperation. Feedback on the [facility] experience: Please help us improve our clinic by completing this brief 9 question survey: [email or web address] Sincerely, Alberta Flores APRN Department of Gastroenterology and Hepatology [facility] documented in this encounter Progress Notes * Alberta Flores APRN - 08/03/2023 8:45 AM EST Gastroenterology [facility] (telemedicine) Chief Complaint: Mallorie Burgess is a 73 y.o. patient referred for consultation by Dr. Darling petit. provider found for bloating History of Present Illness: 73 y.o. female with bloating for the past several months. End of September 2022: health changes. Got sick on way to visit sister in [place]: involuntary jerking of body, mental status changes. ICU stay. Breathing changes/SOB since then. Baseline COPD but something changed significantly. Abdominal distention: wasn't fluid from scans. Abdominal surgery: for delayed gastric emptying. Multiple stretching of abdomen ([facility]), Chest [facility] last week Small lung clot reported Cardiovascular evaluation unremarkable. Denies heartburn, dysphagia, nausea/vomiting. Increased frequency of BM. 08/03/2023 Q-RAPID ACCESS What gastrointestinal symptom is your biggest concern to discuss during your visit? bloating How long have you had this symptom? 2months What are some over the counter medications you have tried for your symptom? (Write none if you are not taking any over the counter medications) Omeprezole What are some supplements you have tried for this symptom? (Write none of you have not tried any supplements) None Have you been prescribed any medications by another provider outside of the [facility] for this symptom? No Have you been to the emergency room or urgent care for your symptom(s)? No Have you had surgery outside of the [facility] for your symptom(s)? No What testing have you completed for this symptom? none Does anyone else in your immediate family also struggle with this symptom? No Relevant prior GI evaluation Laboratory studies: none Imaging: Read off CT report by patient Umbilical hernia, left inguinal hernia (fat containing) Prominent gastric folds Possible hepatic fibrosis Endoscopy: 2019 [facility] gastro EGD for peptic ulcer disease Medications: Outpatient Medications Prior to Visit Medication Sig Dispense Refill celecoxib (CeleBREX) 200 mg Capsule daily. UNABLE TO FIND 3 times daily. Med Name: *Restivin for Restless Leg Syndrome* MAGNESIUM ORAL Take by mouth daily. *[place] Liquid form* UNABLE TO FIND 2 times daily as needed. Med Name:*Generic Arthritis Medication* omeprazole (PriLOSEC) 20 mg Capsule, Delayed Release(E.C.) Take 40 mg by mouth daily. ferrous sulfate 324 mg (65 mg iron) Tablet, Delayed Release (E.C.) Take 324 mg by mouth every otherday. escitalopram (Lexapro) 10 mg Tablet Take 10 mg by mouth Daily. PROAIR HFA 90 mcg/actuation HFA Aerosol Inhaler INHALE TWO PUFFS BY MOUTH EVERY 4 HOURS NEEDED TRELEGY ELLIPTA 100-62.5-25 mcg Disk with Device daily. pramipexole (MIRAPEX) 1 mg Tablet Take 1.5 mg by mouth 2 times daily. No facility-administered medications prior to visit. Allergies: has No Known Allergies. Relevant Past Medical History: Patient Active Problem List Diagnosis Code DDD (degenerative disc disease), lumbar M51.36 Low back pain, non-specific M54.50 Spondylosis of lumbar region without myelopathy or radiculopathy M47.816 Relevant Past Surgical History: No past surgical history on file. Family History: non-contributory Social History: reports that she has been smoking. She has been smoking an average of 1.5 packs perday. She has never used smokeless tobacco. Physical exam: No physical examination performed during this telemedicine visit Assessment/Plan: Ms. Burgess is a 73 y.o. patient with chronic abdominal bloating and evidence of hepatic fibrosis (reported) on [facility] CTAP. Chronic abdominal bloating suspected to prophylactic antibiotics for UTI. If she is able to hold eliquis for 48 hrs and if pulmonary says safe for sedation, plan for EGD/colo to rule out other etiology contributing to symptoms, especially with hx peptic ulcer disease and gastricthickening on CT scan. Also due for screening colonoscopy. Additionally, plan for fibroscan to evaluate degree of fibrosis/cirrhosis given CTAP report. Additional evaluation tbd pending results. -EGD/colo: will reach out if ok to hold -fibroscan Her primary concern of SOB has multiple possible etiologies including reported PE, COPD worsening. She finds the sudden decrease in activity tolerance disturbing. Gastrointestinal reason for symptomsless likely. 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 If testing is being performed the follow-up will be after these results are reviewed. Patient should continue to seek help from their primary care team while waiting for any relevant testing and results. They have not been assigned a gastroenterology provider as of this triage visit. Alberta Flores APRN [facility] [place] [address] documented in this encounter Plan of Treatment Upcoming Encounters Date Type Department Care Team (Late st Contact Info) Description 07/12/2024 8:00 AM EST Hospital Encounter XRay at [address] [place] [address] Eliane Peterson APRN [facility] [place] [address] Scheduled Procedures Name Priority Associated Diagnoses Date/Ti me INJECTION, FACET JOINT, W\FLUORO, LUMBAR, 2ND LEVEL (WRVU 1) Spondylosis of lumbar region without myelopathy or radiculopathy INJECTION, FACET JOINT, W\FLUORO, LUMBAR, SINGLE (WRVU 1.52) Spondylosis of lumbar region without myelopathy or radiculopathy documented as of this encounter Results * [id number] (10/13/2023 8:30 AM EDT) Narrative Sherin Gong APRN - 10/13/2023 8:30 AM EDT Sherin Gong APRN ? 10/13/2023 ??8:50 AM [facility] Liver Fibrosis Assessment Report Indication: ?? 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 Encounter for long-term (current) use of antibiotics Abnormal CT of the abdomen Nonspecific (abnormal) findings on radiological and other examination of abdominal area, including retroperitoneum Abdominal distention Flatulence, eructation, and gas pain History of peptic ulcer disease Personal history of peptic ulcer disease Recurrent UTI (urinary tract infection) Urinary tract infection, site not specified Chronic obstructive pulmonary disease, unspecified COPD type Abnormal CT of the abdomen Nonspecific (abnormal) findings on radiological and other examination of abdominal area, including retroperitoneum Abdominal distention Flatulence, eructation, and gas pain documented in this encounter Care Teams Thermodynamics Engineer Relationship Specialty Start Date End Date Dilan Hernandez MD [address] [place] [address] [place] [address] PCP - General 04/30/10 documented as of this encounter
--- OUTSIDE RECORDS SUMMARY | 2024-07-07 20:08 | XMS_ITS | Encounter Summary ---
Author Organization [facility] Address [facility] [place] [address] Care Team Providers Care Entry Level Account Executive Name Role Phone Dilan Hernandez MD Primary Care Provider [phone] Encounter Details Date Type Department Care Team (Latest Contact Info) Description 12/16/2023 Travel Social History Tobacco Use Types Packs/Day [...] HEALTH CARE SERVICES Hospital Encounter XRay at [address] [place] [address] Eliane Peterson APRN [facility] [address] Scheduled Procedures Name Priority Associated Diagnoses Date/Ti me INJECTION, FACET JOINT, W\FLUORO, LUMBAR, 2ND LEVEL (WRVU 1) Spondylosis of lumbar region without myelopathy or radiculopathy INJECTION, FACET JOINT, W\FLUORO, LUMBAR, SINGLE (WRVU 1.52) Spondylosis of lumbar region without myelopathy or radiculopathy documented as of this encounter Visit Diagnoses Not on filedocumented in this encounter Care Teams Entry Level Account Executive Relationship Specialty Start Date End Date Dilan Hernandez MD [address] [place] [address] [place] [phone] PCP - General 04/30/10 documented as of this encounter
--- OUTSIDE RECORDS SUMMARY | 2024-07-07 20:08 | XMS_ITS | Encounter Summary ---
Author Organization [facility] [place] [address] Care Team Providers Care Solar Installation Crew Supervisor Name Role Phone Eleanor Hernandez MD Primary Care Provider [phone] Reason for Visit * Consultation (Routine) - Closed Specialty Diagnoses / Procedures Referred By Contrao t Referred To Contact Pulmonology Diagnoses Chronic obstructive pulmonary disease, unspecified COPD type COPD, NOCTURNAL HYPOXIA Eleanor Hernandez MD [address] [place] [address] [place] [address] [facility] Pulmonology [address] [place] [phone] Referral ID Status Reason Start Date Expiration Date V isits Requested Visits Authorized [id number] Closed Consult, Test & Treat PCP Updated and/or Approved 10/16/2023 10/15/2024 12 12 Encounter Details Date Type Department Care Team (Late st Contact Info) Description 12/07/2023 9:00 AM EDT Office [place] [address] Yo Brusnon Jr., MD [facility] [place] [address] Chronic obstructive pulmonary disease, unspecified COPD type (Primary Dx) Social History Tobacco Use Types Packs/Day Years Used Date Smoking Tobacco: Every Day Cigarettes Smokeless Tobacco: Never Tobacco Cessation:Ready to Q uit: Not Asked; Counseling Given: Not Answered Sex and Gender Information Value Date Recorded Sex Assigned at Not on file Gender Identity Not on file Sexual Orientation Straight 09/21/2020 3: 34 PM EDT documented as of this encounter Last Filed Vital Signs Vital Sign Reading Time Taken Comments Blood Pressure 119/58 12/07/2023 8:44 AM EDT Pulse 73 12/07/2023 8:44 AM EDT Temperature 36.1 ??C (97 ??F) 12/07/2023 8:44 AM EDT Respiratory Rate 20 12/07/2023 8:44 AM EDT Oxygen Saturation 91% 12/07/2023 8:44 AM EDT Inhaled Oxygen Concentration - - Weight 81.9 kg (180 lb 9.6 oz) 12/07/2023 8:44 A M EDT Height 154.9 cm (5' 1) 12/07/2023 8:44 AM EDT Body Mass Index 34.12 12/07/2023 8:44 AM EDT documented in this encounter Progress Notes * Yo Brunson Jr., MD - 12/07/2023 9:00 AM EDT Pulmonary Consult Reason for Consult: I was asked by Dr. ELEANOR HERNANDEZ to evaluate this patient for COPD. I have personally interviewed and examined the patient, and reviewed her radiographic studies and laboratory data. HPI: Ms. Burgess is a 73 y.o. female who presents for evaluation of COPD. Unfortunately she arrived without outside imaging studies (including chest CT scans), pulmonary function test data, ECHO results, and laboratory results. She tells me she has a 6 year history of COPD, and is a current 1 1/2 ppdcigarette smoker. She quit once for six months following hypnosis, but relapsed when they moved away from the hypnotherapist. Her breathing has worsened after 09/2022 on a trip to [facility]. She experiencedwhole body jerking movements necessitating a stop at the [facility]. A LP was attempted, results of which are unavailable. Maroi breathing has been bad since. She reports having a CT scan donewhich showed a small blood clot (later determined to be an area of scar) and an area of mucus plugging. She was treated with three months of anticoagulation. She is currently on Breztri, propair, and a nebulizer. She uses supplemental oxygen at night and when needed during the day. She is on chronic cephalexin for urinary tract infections. She had COVID in 2019. She was recently seen at the [facility] ED for COPD exacerbation. Treated with prednisone taper with improvement. She has never been on chronic suppressive prednisone. She does not have a sick day action plan. No hemoptysis. 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 Medications Current Outpatient Medications on File Prior to Visit Medication Sig Dispense Refill ltwdljdjqx-zakfuzmwocyjso-pvgcpdkbda (Breztri Aerosphere) 160-9-4.8 mcg/actuation inhaler (HFA) 2 [...] Syndrome* MAGNESIUM ORAL Take by mouth daily. *[place] Liquid form* omeprazole (PriLOSEC) 20 mg Capsule, [...] 1.5 mg by mouth 2 times daily. UNABLE TO FIND 2 times daily as needed. Med Name:*Generic Arthritis Medication* TRELEGY ELLIPTA 100-62.5-25 mcg Disk with Device daily. No current facility-administered medications on file prior to visit. Social History Socioeconomic History Marital status: Spouse name: Not on file Number of children: Not on file Years of education: Not on file Highest education level: Not on file Occupational History Not on file Tobacco Use Smoking status: Every Day Current packs/day: 1.50 Types: Cigarettes Smokeless tobacco: Never Vaping Use Vaping status: Never Used Substance and Sexual Activity Alcohol use: Not on file Drug use: Not on file Sexual activity: Not on file Other Topics Concern Not on file Social History Narrative Not on file Social Determinants of Health Financial Resource Strain: Not on file Food Insecurity: Not on file Transportation Needs: Not on file Physical Activity: Not on file Intimate Partner Violence: Not on file Housing Stability: Not on file Family History Family history does not contribute to the HPI Review of Systems A complete review of systems was obtained. Positives are noted in the HPI. All remaining systems are negative. Physical Exam General Pleasant female in no acute respiratory distress. Vitals Pulse: 73 Resp: 20 BP: 119/58 Weight 81.9 kg (180 lb 9.6 oz). Body mass index is 34.12 kg/m??. O2 sat 91% on RA HEENT PER, EOMI. Neck Supple, no stridor. Trachea is midline. Lungs Coarse breath sounds (B) with expiratory airflow delay. No pleural rub Cardiac Regular rhythm, no murmurs. Abdomen Soft, non-tender, non-distended. Extremities No cyanosis, clubbing, or peripheral edema. Neuro Alert and oriented to name, time, and location. Objective Data Laboratory None available for review Radiology None available for review Cardiac Testing None available for review Pulmonary Function Testing None available for review Assessment / Plan Probable COPD unspecified severity. Current cigarette smoking. On appropriate medication. Will provide chronic suppressive prednisone at 10 mg daily until she returns. At that time will obtain PFT screen. Request data from [facility] and from [facility], particularly PFTs, Chest imaging, cardiac studies, laboratory studies. Sick day action plan: prednisone 40 mg daily x 5 days zpak x 5 days Follow-up in 3 months with PFT screen. --Nancie Brunson MD documented in this encounter Plan of Treatment Upcoming Encounters Date Type Department Care Team (Late st Contact Info) Description 07/12/2024 8:00 AM [facility] Hospital Encounter XRay at [address] [place] [address] [place] [address] Scheduled Procedures Name Priority Associated Diagnoses Date/Ti me INJECTION, FACET JOINT, W\FLUORO, LUMBAR, 2ND LEVEL (WRVU 1) Spondylosis of lumbar region without myelopathy or radiculopathy INJECTION, FACET JOINT, W\FLUORO, LUMBAR, SINGLE (WRVU 1.52) Spondylosis of lumbar region without myelopathy or radiculopathy documented as of this encounter Results * Common Pulmonary Function [...] PFT FEV1/FVC Pre-BD Z-Score -2.49 COMPAS PFT [id number] Actual Pre-BD 0.36 % COMPAS PFT MXW73-70 Predicted 1.58 % COMPAS PFT WPS31-51 Pre-BD % of Predicted 23 % COMPAS PFT [id number] Pre-BD Z-Score -2.66 COMPAS PFT DLCO Hb [...] obstructive pulmonary disease, unspecified COPD type- Primary Chronic obstructive pulmonary disease, unspecified COPD type documented in this encounter Care Teams Solar Installation Crew Supervisor Relationship Specialty Start Date End Date Eleanor Hernandez MD [address] [place] [address] [place] [address] PCP - General 04/30/10 documented as of this encounter
--- OUTSIDE RECORDS SUMMARY | 2024-07-07 20:08 | XMS_ITS | Encounter Summary ---
Author Organization [facility] [place] [address] Care Team Providers Care Canvas Goods Maker Name Role Phone Dilan Hernandez MD Primary Care Provider [phone] Reason for Referral * Consultation (Routine) - Closed Specialty Diagnoses / Procedures Referred By Contac t Referred To Contact Pain and Spine Center Diagnoses Facet arthropathy, lumbar APCS Welcome Group *?reschedule Tabatha Fernández APRN [facility] [place] [address] [facility] [place] [address] Referral ID Status Reason Start Date Expiration Date V isits Requested Visits Authorized [id number] Closed Consult, Test & Treat 10/02/2020 10/02/2021 1 1 Reason for Visit * Reason Comments Back Pain f/u s/p LESI Encounter Details Date Type Department Care Team (Late st Contact Info) Description 10/02/2020 2:00 PM EDT Office Visit [place] [address] Tabatha Fernández APRN [facility] [place] [address] Facet arthropathy, lumbar (Primary Dx) Social History Tobacco Use Types Packs/Day Years Used Date Smoking Tobacco: Every Day Cigarettes Smokeless Tobacco: Never Sex and Gender Information Value Date Recorded Sex Assigned at Not on file Gender Identity Not on file Sexual Orientation Straight 09/21/2020 3: 34 PM EDT documented as of this encounter Last Filed Vital Signs Vital Sign Reading Time Taken Comments Blood Pressure 128/81 10/02/2020 2:02 PM EDT Pulse 64 10/02/2020 2:02 PM EDT Temperature 36.6 ??C (97.8 ??F) 10/02/2020 2:02 PM ED T Respiratory Rate - - Oxygen Saturation 98% 10/02/2020 2:02 PM EDT Inhaled Oxygen Concentration - - Weight 68 kg (150 lb) 10/02/2020 2:02 PM EDT Height - - Body Mass Index 28.34 09/24/2020 11:22 AM EDT documented in this encounter Patient Instructions * Patient Instructions* Tabatha Fernández APRN - 10/02/2020 2:00 PM EDT LMBB to RFA APCS FU with me via telehealth 4 weeks after procedure documented in this encounter Progress Notes * Tabatha Fernández APRN - 10/02/2020 2:00 PM EDT [facility] [place] [address] Phone: PAIN MANAGEMENT FOLLOW UP NOTE DATE OF VISIT 10/02/2020 Patient Mallorie Burgess 1950 REFERRING PROVIDER Dilan Hernandez MD [address] [place] [address] [place] [address] PRIMARY CARE PROVIDER Dilan Hernandez MD CHIEF COMPLAINT: Mallorie Burgess is a 70 y.o.female with Back pain, who is seen in consultation at the request of Dilan Hernandez MD [address] [place] [address] [place] [address]. for evaluation, recommendations, and management.The history is [...] is here for follow-up. She schedule a [id number] follow-up visit we needed to do a [...] ability to do this. She has seen Doreen Jameson for some exercises and has gotten some [...] are also going to review her MRI [id number] although we did look at it together online Most recent MRI or Xray: EXAMINATION: MRI [...] no Illegal/prescription drug misuse past/present:no MEDICATIONS [facility] Prescription Monitoring Program was checked and no concerns were identified. Medications 09/24/20 1305 Medication Sig Taking? rOPINIRole (REQUIP) 0.5 mg Tablet Take 0.5 mg by mouth Twice daily. ondansetron ODT (Zofran-ODT) 4 mg Tablet, Rapid Dissolve Take 4 mg by mouth Every 8 hours as needed. omeprazole (PriLOSEC) 20 mg Capsule, Delayed Release(E.C.) Take 40 mg by mouth. ferrous sulfate 324 mg (65 mg iron) Tablet, Delayed Release (E.C.) Take 324 mg by mouth. escitalopram (Lexapro) 10 mg Tablet Take 10 mg by mouth Daily. ferrous gluconate 324 mg (38 mg iron) Tablet cyclobenzaprine (Flexeril) 10 mg Tablet PROAIR HFA 90 mcg/actuation HFA Aerosol Inhaler INHALE TWO PUFFS BY MOUTH EVERY 4 HOURS NEEDED TRELEGY ELLIPTA 100-62.5-25 mcg Disk with Device ranitidine (ZANTAC) 150 mg Capsule Take 150 mg by mouth 2 times daily. pramipexole (MIRAPEX) 1 mg Tablet Take 2 mg by mouth nightly. ADVERSE DRUG REACTIONS Allergies as of 10/02/2020 ??? (No Known Allergies) MEDICAL HISTORY No [...] arthropathy Plan: She and I discussed a trial of lumbar medial branch blocks with traction radiofrequency at L3-4, L4-5, L5-S1. I have reviewed the process with the computer monitor, model and given her printed materials to review and answered her questions. We also talked about the active pain care service and she is interested in at least going to the welcome groups have placed a referral for that. Finally she will continue her exercises as instructed by Ms. Barba and I have encouraged her to start walking again. I will follow-up with her 4 weeks after the procedure. I answered all her questions today. Mallorie Arian Burgess had the opportunity to ask questions and indicated that all questions were answered to her satisfaction. Tabatha Fernández MS WATCH COMMANDER-BC, TAP BUILDER Nurse Practitioner [facility] documented in this encounter Plan of Treatment Upcoming Encounters Date Type Department Care Team (Late st Contact Info) Description 07/12/2024 8:00 AM EST Hospital Encounter XRay at [address] [place] [address] [place] [address] Scheduled Procedures Name Priority Associated Diagnoses Date/Ti me INJECTION, FACET JOINT, W\FLUORO, LUMBAR, 2ND LEVEL (WRVU 1) Spondylosis of lumbar region without myelopathy or radiculopathy INJECTION, FACET JOINT, W\FLUORO, LUMBAR, SINGLE (WRVU 1.52) Spondylosis of lumbar region without myelopathy or radiculopathy Scheduled Referrals Name Type Priority Associated Diagnoses Orde r Schedule Amb Referral to Active Pain Care Services Outpatient Referral Routine Facet arthropathy, lumbar Ordered: 10/02/2020 documented as of this encounter Visit Diagnoses Diagnosis Facet arthropathy, lumbar- Primary Lumbosacral spondylosis without myelopathy documented in this encounter Care Teams Canvas Goods Maker Relationship Specialty Start Date End Date Dilan Hernandez MD [address] [place] [address] [place] [phone] PCP - General 04/30/10 documented as of this encounter
--- OUTSIDE RECORDS SUMMARY | 2024-07-07 20:08 | XMS_ITS | Encounter Summary ---
Author Organization [facility] [place] [address] Care Team Providers Care Sports Betting Manager Name Role Phone Dilan Hernandez MD Primary Care Provider [phone] Encounter Details Date Type Department Care Team (Late st Contact Info) Description 02/28/2021 Ancillary Procedure Radiology Library at [facility] [place] [address] Dilan Hernandez MD [address] [place] [phone] Social History Tobacco Use Types Packs/Day [...] 8:00 AM EST Hospital Encounter XRay at [address] [place] [address] Eliane Peterson APRN [facility] [place] [address] Scheduled Procedures Name Priority Associated Diagnoses Date/Ti me INJECTION, FACET JOINT, W\FLUORO, LUMBAR, 2ND LEVEL (WRVU 1) Spondylosis of lumbar region without myelopathy or radiculopathy INJECTION, FACET JOINT, W\FLUORO, LUMBAR, SINGLE (WRVU 1.52) Spondylosis of lumbar region without myelopathy or radiculopathy documented as of this encounter Procedures Procedure Name Priority Date/Time Associated Diagnosis Comments FILM LIBRARY STORAGE ONLY DX HIP Routine 02/28/2021 12:00 AM EDT documented in this encounter Results * Film Library- Storage Only DX Hip (02/28/2021 12:00 AM EDT) Narrative [facility] - 03/11/2021 10:38 AM EDT This exam is auto-finalizing. It's purpose is for storage only. Dilan Hernandez MD G FILM LIBRARY ORD ERABLES [place], [place] documented in this encounter Visit Diagnoses Not on filedocumented in this encounter Care Teams Sports Betting Manager Relationship Specialty Start Date End Date Dilan Hrenandez MD [address] [place] [address] [place] [address] PCP - General 04/30/10 documented as of this encounter
--- OUTSIDE RECORDS SUMMARY | 2024-07-07 20:08 | XMS_ITS | Encounter Summary ---
[place] [address] Care Team Providers Care Sluice Tender Name Role Phone Dilan Hernandez MD Primary Care Provider [phone] Reason for Visit * Auth/Cert Specialty Diagnoses / Procedures Referred By Albert t Referred To Contact Diagnoses facet arth, spinal stenosis, NC Procedures PRO INJECTION DX/THER SBST INTRLMNR LMBR/SAC W/IMG GDN INJECTION, EPIDURAL, LUMBAR OR SACRAL (CAUDAL), WITH IMAGING GUIDANCE (WRVU 1.8) Referral ID Status Reason Start Date Expiration Date Visits Re quested Visits Authorized [id number] 1 1 Encounter Details Date Type Department Care Team (Latest Contact Info) Description 09/24/2020 11:19 AM EDT - 09/24/2020 12:31 PM EDT Hospital En[place] [phone] Stephanie Vasquez MD DDD (degenerative disc disease), lumbar; DDD (degenerative disc disease), lumbar Discharge Disposition: Home Social History Tobacco [...] to bilateral leg(s). PAIN LEVEL AT REST /10 PAST MEDICAL HISTORY: No past medical history [...] Gatherings with Friends and Family: ??? Attends Denominational Services: ??? Active Member of Clubs or [...] PLAN: - proceed with JULIEN Vasquez MD Soft Sugar Operator Head of Anesthesiology [facility] [address] [address] / [facility] documented in this encounter Miscellaneous Notes * Op Note - Stephanie Vasquez MD - 09/24/2020 12:17 PM EDT Pain Management Operative Note Patient Name: Mallorie Burgess : [id number] MR#: [id number] Case Date: 09/24/2020 Surgeon: Surgeon(s) and Role: * Stephanie Vasquez MD - Primary * James Valentin MD - Secondary Procedure(s) (LRB): INJECTION, EPIDURAL, LUMBAR OR SACRAL (CAUDAL), WITH IMAGING GUIDANCE (WRVU 1.8) (Midline) LUMBAR INTERLAMINAR EPIDURAL STERIOID INJECTION PROCEDURE NOTE Ms. Mallorie Burgess has been referred to the Pain Management Center for a lumbar epidural steroid injection by Tabatha Fernández APRN [facility] [place] [address]. The patient complains of low back pain [...] times every 12 months. James Valentin MD Labor Contractor Patient reports occasional leg weakness. BLE motor [...] Physician - Pain Management CC: Tabatha Fernández BOX OFFICE AGENT [facility] [place] [address] documented in this encounter Plan of Treatment Upcoming Encounters Date Type Department Care Team (Late st Contact Info) Description 07/12/2024 8:00 AM [facility] Hospital Encounter XRay at [address] [place] [address] Eliane Peterson BOX OFFICE AGENT [facility] [place] [address] Scheduled Orders Name Type Priority Associated Diagnoses [...] lumbosacral intervertebral disc documented in this encounter Active and Recently [...] MD) documented in this encounter Care Teams Sluice Tender Relationship Specialty Start Date End Date Dilan Hernandez MD [address] [place] [address] [place] [phone] PCP - General 04/30/10 documented as of this encounter
--- OUTSIDE RECORDS SUMMARY | 2024-07-07 20:08 | XMS_ITS | Encounter Summary ---
Author Organization [facility] [place] [address] Care Team Providers Care Medical Facilities Section Director Name Role Phone Dilan Hernandez MD Primary Care Provider [phone] Reason for Visit * Diagnostic Test (Routine) - Closed Specialty Diagnoses / Procedures Referred By Contac t Referred To Contact Radiology Diagnoses DDD (degenerative disc disease), lumbar Procedures MRI Lumbar Spine wo Contrast (Generic) Tabatha Fernández APRN [facility] [address] [place] [address] [place] [address] Referral ID Status Reason Start Date Expiration Date V isits Requested Visits Authorized [id number] Closed Specialty Service Requested 09/19/2020 03/18/2021 1 1 Encounter Details Date Type Department Care Team (Latest Contact Info) Description 09/21/2020 10:47 AM EDT - 09/21/2020 11:59 PM EDT Hospital [place] [address] Tabatha Fernández APRN [facility] [place] [address] Discharge Disposition: Home Social History Tobacco Use [...] daily. 10/02/2020 documented as of this encounter Plan of Treatment Upcoming Encounters Date Type Department Care Team (Late st Contact Info) Description 07/12/2024 8:00 AM EST Hospital Encounter XRay at [address] [place] [address] Eliane Peterson APRN [facility] [place] [address] Scheduled Procedures Name Priority Associated Diagnoses Date/Ti me INJECTION, FACET JOINT, W\FLUORO, LUMBAR, 2ND LEVEL (WRVU 1) Spondylosis of lumbar region without myelopathy or radiculopathy INJECTION, FACET JOINT, W\FLUORO, LUMBAR, SINGLE (WRVU 1.52) Spondylosis of lumbar region without myelopathy or radiculopathy documented as of this encounter Procedures Procedure Name Priority Date/Time Associated Diagnosis Comments MRI LUMBAR SPINE WITHOUT CONTRAST Routine 09/21/2020 12:44 PM EDT DDD (degenerative disc disease), lumbar documented in this encounter Results * MRI Lumbar Spine [...] the clinical situation (Reference- Jarvik Et Al, Spine 2001). Findings: (Prevalence in [...] who have questions please contact the health housekeeper caregiver that requested your imaging first. ? Electronically signed by: Carie Jorgensen MD, [facility] ([phone]), at 09/21/2020 2:40 PM Narrative 09/21/2020 2:40 [...] the clinical situation (Reference- Redvik Et Al, [id number]). Findings: (Prevalence in patients without low back [...] patients who have questions please contactthe health housekeeper caregiver that requested your imaging first. Tabatha Fernández APRN IMG MRI ORDERABLES documented in this encounter Visit Diagnoses Not on filedocumented in this encounter Care Teams Medical Facilities Section Director Relationship Specialty Start Date End Date Dilan Hernandez MD [address] [place] [address] [place] [address] PCP - General 04/30/10 documented as of this encounter
--- OUTSIDE RECORDS SUMMARY | 2024-07-07 20:08 | XMS_ITS | Encounter Summary ---
Author Organization [facility] [place] [address] Care Team Providers Care Features Editor Name Role Phone Dilan Hernandez MD Primary Care Provider [phone] Encounter Details Date Type Department Care Team (Late st Contact Info) Description 08/28/2020 Notes Only [place] [address] Marge Perry Social History Tobacco Use Types Packs/Day Years Used Date Smoking Tobacco: Every Day Smokeless Tobacco: Never Sex and Gender Information Value Date Recorded Sex Assigned at Not on file Gender Identity Not on file Sexual Orientation Straight 09/21/2020 3: 34 PM EDT documented as of this encounter Progress Notes * Marge Perry - 08/28/2020 8:36 AM EDT Procedure: LESI MRI required? yes (If yes, verify that updated MRI is in eDH) (Atlanto-Axial Joint injection, NICOLE; 1 year or <)(Caudal PER, LESI, Thoracic PER, TFESI Lumbar & Cervical; 2 years or <) RISK LEVEL: Low Are you on any blood thinners? no (If yes, specify medication type and prescribing provider for anticoagulant hold request) Medication: n/a Prescribing provider: n/a Reminder: Coumadin requires an INR lab 1 hour prior to procedure Are you taking any NSAIDs? no Type of NSAID: denies Are you currently taking any oral steroids [...] insurance (verify insurance)? Worker's Comp no Insurance: [employer] Have you had or are you scheduled to have a COVID vaccine? Yes Date of First Dose 08/23/20 Date of Second Dose 09/17/20 Is this [...] However, based on the known timeline of unvybnkhqqow-getaivcxv-opjfmto (HPA) axis suppression following epidural and intraarticular [...] st Contact Info) Description 07/12/2024 8:00 AM [facility] Hospital Encounter XRay at [address] [place] [address] Eliane Peterson [facility]N [facility] [place] [address] Scheduled Procedures Name Priority Associated Diagnoses Date/Ti me INJECTION, FACET JOINT, W\FLUORO, LUMBAR, 2ND LEVEL (WRVU 1) Spondylosis of lumbar region without myelopathy or radiculopathy INJECTION, FACET JOINT, W\FLUORO, LUMBAR, SINGLE (WRVU 1.52) Spondylosis of lumbar region without myelopathy or radiculopathy documented as of this encounter Visit Diagnoses Not on filedocumented in this encounter Care Teams Features Editor Relationship Specialty Start Date End Date Dilan Hernandez MD [address] [place] [address] [place] [phone] PCP - General 04/30/10 documented as of this encounter
--- OUTSIDE RECORDS SUMMARY | 2024-07-07 20:08 | XMS_ITS | Encounter Summary ---
Author Organization [facility] [place] [address] Care Team Providers Care Narcotics Detective Name Role Phone Dilan Hernandez MD Primary Care Provider [phone] Reason for Referral * Physical Therapy (Routine) - Specialty Diagnoses / Procedures Referred By Contac t Referred To Contact Physical Therapy Diagnoses DDD (degenerative disc disease), lumbar Tabatha Fernández APRN [facility] [place] [address] Gerri Ruiz PT [facility] Referral ID Status Reason Start Date Expiration Date V isits Requested Visits Authorized [id number] Evaluate and Treat 08/23/2020 02/19/2021 12 12 Reason for Visit * Consultation (Routine) - Closed Specialty Diagnoses / Procedures Referred By Contac t Referred To Contact [facility] Sp[facility] Center Diagnoses Low back pain Lumbar spondylosis Pain - Low back pain/ ?injections/ XR(l) 07/09/20 @ [facility] Dilan Hernandez MD [address] [place] [address] [place] [address] [facility] [place] [address] Referral ID Status Reason Start Date Expiration Date Visits Re quested Visits Authorized [id number] Closed 07/25/2020 07/25/2021 1 1 Encounter Details Date Type Department Care Team (Latest Contact Info) Description 08/23/2020 7:30 AM EDT TH Visit (TeleHealth) [facility] at [facility] [place] [address] Tabatha Fernández APRN [facility] [place] [address] DDD (degenerative disc disease), lumbar (Primary Dx) Social History Tobacco Use Types Packs/Day Years Used Date Smoking Tobacco: Every Day Smokeless Tobacco: Never Sex and Gender Information Value Date Recorded Sex Assigned at Not on file Gender Identity Not on file Sexual Orientation Straight 09/21/2020 3: 34 PM EDT documented as of this encounter Patient Instructions * Patient Instructions* Tabatha Fernández APRN - 08/23/2020 7:30 AM EDT LESI, low risk no NSAIDS or anticoag. PT 2-3 weeks post injection with FU with me IN PERSON same day documented in this encounter Progress Notes * Tabatha Fernández APRN - 08/23/2020 7:30 AM EDT Images from the original note were not included. [facility] [place] [address] Phone: PAIN MANAGEMENT CONSULTATION NOTE DATE OF VISIT 08/23/2020 Patient Mallorie Burgess 1950 REFERRING PROVIDER Dilan Hernandez MD [address] [place] [address] [place] [address] PRIMARY CARE PROVIDER Dilan Hernandez MD CHIEF COMPLAINT: Mallorie Burgess is a 70 y.o.female with Back pain, who is seen in consultation at the request of Dilan Hernandez MD [address] [place] [address] [place] [address]. for evaluation, recommendations, and management.The history is [...] to the right without thinking about it. Most recent MRI or Xray: PAIN ASSESSMENT: [...] no Illegal/prescription drug misuse past/present:no MEDICATIONS [facility] Prescription Monitoring Program was checked and no concerns were identified. Medications 05/26/19 0959 Medication Sig Taking? rOPINIRole (REQUIP) 0.5 mg Tablet Take 0.5 mg by mouth Twice daily. oxyCODONE (Roxicodone) 5 mg/5 mL Solution Take 5 mg by mouth Every 4 hours as needed. ondansetron ODT (Zofran-ODT) 4 mg Tablet, Rapid Dissolve Take 4 mg by mouth Every 8 hours as needed. omeprazole (PriLOSEC) 20 mg Capsule, Delayed Release(E.C.) Take 40 mg by mouth. ferrous sulfate 324 mg (65 mg iron) Tablet, Delayed Release (E.C.) Take 324 mg by mouth. escitalopram (Lexapro) 10 mg Tablet Take 10 mg by mouth Daily. acetaminophen (Tylenol) 500 mg Tablet Take 500 mg by mouth Every 6 hours as needed. acetaminophen (Tylenol) 325 mg Tablet Take 650 mg by mouth Every 4 hours as needed. ferrous gluconate 324 mg (38 mg iron) Tablet cyclobenzaprine (Flexeril) 10 mg Tablet celecoxib (CeleBREX) 200 mg Capsule PROAIR HFA 90 mcg/actuation HFA Aerosol Inhaler INHALE TWO PUFFS BY MOUTH EVERY 4 HOURS NEEDED TRELEGY ELLIPTA 100-62.5-25 mcg Disk with Device ranitidine (ZANTAC) 150 mg Capsule Take 150 mg by mouth 2 times daily. pramipexole (MIRAPEX) 1 mg Tablet Take 2 mg by mouth nightly. ADVERSE DRUG REACTIONS Allergies as of 08/23/2020 ??? (No Known Allergies) MEDICAL HISTORY No past medical history on file. SURGICAL HISTORY No past surgical history on file. FAMILY HISTORY No family history on file. Opioid Risk Tool Female Male 1. Family history of Substance Abuse Alcohol [] 1 [] 3 Illegal Drugs [] 2 [] 3 Prescription Drugs [] 4 [] 4 2. Personal History of Substance Abuse Alcohol [] 3 [] 3 Illegal Drugs [] 4 [] 4 Prescription Drugs [] 5 [] 5 3. Age (davy box if 16-45) [] 1 [] 1 4. Psychological Disease Attention Deficit Disorder, Obsessive Compulsive D/o, Bipolar, Schizophrenia [] 2 [] 2 Depression [] 1 [] 1 TOTAL: 0 Comments about ORT in relation to this patient: Opioid Risk Category: low risk 0-3 PHYSICAL EXAMINATION No data found. There is no height or weight on file to calculate BMI. There were no vitals taken for this visit. No flowsheet data found. This was a telehealth visit and no physical exam was performed ASSESSMENT . 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 She also has a lateral shift to the left with some mild scoliosis curving with concavity to the right to my eye. She has significant facet arthropathy. A CT ofthe abdomen done last year revealed some stenosis at L3-4, 4 5 and 5 1. Plan: I discussed with the patient that unfortunately cannot do a physical exam today because this is a telehealth visit. We did discuss a trial of an epidural steroid injections and she has had such good results in the past and she is having some signs of neurogenic claudication as well as back pain. Ifthis does not help her we could consider a lumbar medial branch block with progression to radiofrequency at L3-L5 or S1. We have agreed to have her have the steroid injection and follow-up with the physical therapist and myself on the same day which will allow me to perform physical exam 2 to 3 weeks after the steroid injection and discussed her response to the first injection and make plans for n ext steps. I also discussed with her the active pain service and she will consider it. I am going to send her information about the steroid injection as well as the active pain service. Mallorie Arian Burgess had the opportunity to ask questions and indicated that all questions were answered to her satisfaction. Tabatha Fernández MS PAPER SORTER-BC, CLASS 1 OWNER OPERATOR Nurse Practitioner [facility] documented in this encounter Plan of Treatment Upcoming Encounters Date Type Department Care Team (Late st Contact Info) Description 07/12/2024 8:00 AM [facility] Hospital Encounter XRay at [address] [place] [address] [place] [address] Scheduled Procedures Name Priority Associated Diagnoses Date/Ti [...] disc documented in this encounter Care Teams Narcotics Detective Relationship Specialty Start Date End Date Dilan Hernandez MD [address] [place] [address] [place] [address] PCP - General 04/30/10 documented as of this encounter
--- OUTSIDE RECORDS SUMMARY | 2024-07-07 20:08 | XMS_ITS | Encounter Summary ---
Author Organization [facility] [place] [address] Care Team Providers Care Document Preparation Specialist Name Role Phone Dilan Hernandez MD Primary Care Provider [phone] Encounter Details Date Type Department Care Team (Late st Contact Info) Description 02/28/2021 12:05 AM EDT Ancillary Procedure Radiology Library at [facility] [place] [address] Dilan Hernandez MD [address] [place] [phone] Social History Tobacco Use Types Packs/Day [...] AM EST Hospital Encounter XRay at [address] [place] [address] Eliane Peterson APRN [facility] [place] [address] Scheduled Procedures Name Priority Associated Diagnoses Date/Ti me INJECTION, FACET JOINT, W\FLUORO, LUMBAR, 2ND LEVEL (WRVU 1) Spondylosis of lumbar region without myelopathy or radiculopathy INJECTION, FACET JOINT, W\FLUORO, LUMBAR, SINGLE (WRVU 1.52) Spondylosis of lumbar region without myelopathy or radiculopathy documented as of this encounter Procedures Procedure Name Priority Date/Time Associated Diagnosis Comments FILM LIBRARY STORAGE ONLY DX SPINE Routine 02/28/2021 12:05 AM EDT documented in this encounter Results * Film Library- Storage Only DX Spine (02/28/2021 12:05 AM EDT) Narrative [facility] - 03/11/2021 10:38 AM EDT This exam is auto-finalizing. It's purpose is for storage only. Dilan Hernandez MD IMG FILM LIBRARY ORD ERABLES Performing Organization Address City/State/[facility] Co de Phone Number [place], [place] documented in this encounter Visit Diagnoses Not on filedocumented in this encounter Care Teams Document Preparation Specialist Relationship Specialty Start Date End Date Dilan Hernandez MD [address] [place] [address] [place] [address] PCP - General 04/30/10 documented as of this encounter
--- OUTSIDE RECORDS SUMMARY | 2024-07-07 20:08 | XMS_ITS | Encounter Summary ---
Author Organization [facility] Address [facility] [place] [address] Care Team Providers Care Print Press Operator Name Role Phone Dilan Hernandez MD Primary Care Provider [phone] Encounter Details Date Type Department Care Team (Late st Contact Info) Description 08/24/2023 9:45 AM EDT Ancillary Procedure Radiology Library at [facility] [place] [address] Nino Ayala MD [address] [place] [address] [place] [address] Social History Tobacco Use Types Packs/Day Years [...] 8:00 AM EST Hospital Encounter XRay at [address] [place] [address] Eliane Peterson APRN [facility] [place] [address] Scheduled Procedures Name Priority Associated Diagnoses Date/Ti [...] EDT) 01/12/2024 12:2 3 PM EDT Narrative [facility] - 01/12/2024 12:23 PM EDT This exam is auto-finalizing. It's purpose is for storage only. Nino Ayala MD IMG FILM LIBRARY ORD ERABLES [place], [place] documented in this encounter Visit Diagnoses Not on filedocumented in this encounter Care Teams Print Press Operator Relationship Specialty Start Date End Date Dilan Hernandez MD [address] [place] [address] BRY[place] Beltran [phone] PCP - General 04/30/10 documented as of this encounter
--- OUTSIDE RECORDS SUMMARY | 2024-07-07 20:08 | XMS_ITS | Encounter Summary ---
Author Organization [facility] Address [facility] [place] [address] Care Team Providers Care Director Safety Council Name Role Phone Dilan Hernandez MD Primary Care Provider Encounter Details Date Type Department Care Team (Latest Contact Info) Description 10/12/2023 Travel Social History Tobacco Use Types Packs/Day [...] st Contact Info) Description 07/12/2024 8:00 AM [facility] Hospital Encounter XRay at [address] [place] [address] [place] [address] Scheduled Procedures Name Priority Associated Diagnoses Date/Ti me INJECTION, FACET JOINT, W\FLUORO, LUMBAR, 2ND LEVEL (WRVU 1) Spondylosis of lumbar region without myelopathy or radiculopathy INJECTION, FACET JOINT, W\FLUORO, LUMBAR, SINGLE (WRVU 1.52) Spondylosis of lumbar region without myelopathy or radiculopathy documented as of this encounter Visit Diagnoses Not on filedocumented in this encounter Care Teams Director Safety Council Relationship Specialty Start Date End Date Dilan Hernandez MD [address] [place] [address] [place] [address] PCP - General 04/30/10 documented as of this encounter
--- OUTSIDE RECORDS SUMMARY | 2024-07-07 20:08 | XMS_ITS | Encounter Summary ---
Author Organization [facility] [place] [address] Care Team Providers Care Dairy Processing Equipment Operator Name Role Phone Dilan Hernandez MD Primary Care Provider [phone] Encounter Details Date Type Department Care Team (Late st Contact Info) Description 10/22/2020 Telephone [facility] Sp[facility] at [facility] [place] [address] Kamila Barnhart, RN Social History Tobacco Use Types Packs/Day Years Used Date Smoking Tobacco: Every Day Cigarettes Smokeless Tobacco: Never Sex and Gender Information Value Date Recorded Sex Assigned at Not on file Gender Identity Not on file Sexual Orientation Straight 09/21/2020 3: 34 PM EDT documented as of this encounter Miscellaneous Notes * Telephone Encounter - Kamila Barnhart RN - 10/22/2020 1:11 PM EDT Outgoing call to Mallorie to tell her that I saw that she was scheduled for the RFA procedure. Malloriestated that she sent the message prior to them calling to get her scheduled. documented in this encounter Plan of Treatment Upcoming Encounters Date Type Department Care Team (Late st Contact Info) Description 07/12/2024 8:00 AM [facility] Hospital Encounter XRay at [address] [place] [address] [place] [address] Scheduled Procedures Name Priority Associated Diagnoses Date/Ti me INJECTION, FACET JOINT, W\FLUORO, LUMBAR, 2ND LEVEL (WRVU 1) Spondylosis of lumbar region without myelopathy or radiculopathy INJECTION, FACET JOINT, W\FLUORO, LUMBAR, SINGLE (WRVU 1.52) Spondylosis of lumbar region without myelopathy or radiculopathy documented as of this encounter Visit Diagnoses Not on filedocumented in this encounter Care Teams Dairy Processing Equipment Operator Relationship Specialty Start Date End Date Dilan Hernandez MD [address] [place] [address] [place] [phone] PCP - General 04/30/10 documented as of this encounter
--- OUTSIDE RECORDS SUMMARY | 2024-07-07 20:08 | XMS_ITS | Encounter Summary ---
Author Organization [facility] [place] [address] Care Team Providers Care Esol Teacher Name Role Phone Dilan Hernandez MD Primary Care Provider [phone] Encounter Details Date Type Department Care Team (Late st Contact Info) Description 07/31/2023 Telephone [place] [phone] Steph Álvarez Social History Tobacco Use Types Packs/Day Years Used Date Smoking Tobacco: Every Day Cigarettes Smokeless Tobacco: Never Sex and Gender Information Value Date Recorded Sex Assigned at Not on file Gender Identity Not on file Sexual Orientation Straight 09/21/2020 3: 34 PM EDT documented as of this encounter Miscellaneous Notes * Telephone Encounter - Steph Álvarez - 07/31/2023 3:38 PM EST Patient called saying she just had a CT and is having bloating. Got patient scheduled in the [facility] Patient History Review Have you seen a GI specialist for this problem before? no Have you had any Motility Testing done: Anal Rectal Manometry, Esophageal Manometry, PH Impedance, Leavitt, or Hydrogen Breath Test? no What: When: Where: Have you had any radiology testing done for this issue? (US/MRI/CT/Barium Swallow or Enema, GastricEmptying Study, etc) yes What: CT pelvis & CT When: Where:[facility] Have you had any blood work drawn for this problem? yes When: Where: [facility], [facility] Have you ever had a liver biopsy? no When: Where: Have you had a colonoscopy or upper endoscopy in the past? yes When: Where: [facility]- colo & EGD Have you had any hospital admissions or ER visits for this problem? no When: Where: documented in this encounter Plan of Treatment Upcoming Encounters Date Type Department Care Team (Late st Contact Info) Description 07/12/2024 8:00 AM EST Hospital Encounter XRay at [address] [place] [place] [address] [place] [address] Scheduled Procedures Name Priority Associated Diagnoses Date/Ti me INJECTION, FACET JOINT, W\FLUORO, LUMBAR, 2ND LEVEL (WRVU 1) Spondylosis of lumbar region without myelopathy or radiculopathy INJECTION, FACET JOINT, W\FLUORO, LUMBAR, SINGLE (WRVU 1.52) Spondylosis of lumbar region without myelopathy or radiculopathy documented as of this encounter Visit Diagnoses Not on filedocumented in this encounter Care Teams Esol Teacher Relationship Specialty Start Date End Date Dilan Hernandez MD [address] [place] [address] [place] [address] PCP - General 04/30/10 documented as of this encounter
--- OUTSIDE RECORDS SUMMARY | 2024-07-07 20:08 | XMS_ITS | Encounter Summary ---
Author Organization [facility] [place] [address] Care Team Providers Care Clerk Of Scales Name Role Phone Dilan Hernandez MD Primary Care Provider [phone] Reason for Visit * Auth/Cert Specialty Diagnoses / Procedures Referred By Albert t Referred To Contact Diagnoses facet arth, spinal stenosis, NC Procedures PRO INJECTION DX/THER SBST INTRLMNR LMBR/SAC W/IMG GDN INJECTION, EPIDURAL, LUMBAR OR SACRAL (CAUDAL), WITH IMAGING GUIDANCE (WRVU 1.8) Referral ID Status Reason Start Date Expiration Date Visits Re quested Visits Authorized [id number] 1 1 Encounter Details Date Type Department Care Team (Late st Contact Info) Description 09/24/2020 12:15 PM EDT Ancillary Procedure [place] [address] Stephanie Vasquez MD Pain Social History Tobacco [...] AM EST Hospital Encounter XRay at [address] [place] [address] Eliane Peterson, [place] [address] Scheduled Procedures Name Priority Associated Diagnoses Date/Ti me INJECTION, FACET JOINT, W\FLUORO, LUMBAR, 2ND LEVEL (WRVU 1) Spondylosis of lumbar region without myelopathy or radiculopathy INJECTION, FACET JOINT, W\FLUORO, LUMBAR, SINGLE (WRVU 1.52) Spondylosis of lumbar region without myelopathy or radiculopathy documented as of this encounter Procedures Procedure Name Priority Date/Time Associated Diagnosis Comments FILM LIBRARY STORAGE ONLY PAIN CLINIC C ARM Routine 09/24/2020 4:31 PM EDT Pain documented in this encounter Results * Film Library- Storage Only pain Clinic C-Arm (09/24/2020 4:31 PM EDT) Narrative [facility] - 09/24/2020 4:31 PM EDT See PACS for result report. Stephanie Vasquez MD G FILM LIBRARY ORD ERABLES Performing Organization Address City/State/[facility] Co de Phone Number [place], [place] documented in this encounter Visit Diagnoses Diagnosis Pain Generalized pain documented in this encounter Care Teams Clerk Of Scales Relationship Specialty Start Date End Date Dilan Hernandez MD [address] [place] [address] BRY[place] Beltran [phone] PCP - General 04/30/10 documented as of this encounter
--- OUTSIDE RECORDS SUMMARY | 2024-07-07 20:08 | XMS_ITS | Encounter Summary ---
[place] [address] Care Team Providers Care Digital Media Planner Name Role Phone Dilan Hernandez MD Primary Care Provider [phone] Reason for Referral * Diagnostic Test (Routine) - Closed Specialty Diagnoses / Procedures Referred By Albert castaneda Referred To Contact Gastroenterology Diagnoses Bloating HBT - lactulose - bloating Procedures Breath Hydrogen Test [place] [address] [place] [address] Referral ID Status Reason Start Date Expiration Date V isits Requested Visits Authorized [id number] Closed Consult, Test & Treat 12/16/2023 12/15/2024 1 1 * Diagnostic Test (Routine) - Closed Specialty Diagnoses / Procedures Referred By Albert castaneda Referred To Contact Gastroenterology Diagnoses Altered bowel function ARM for constipation Procedures High Definition Anal Manometry PRG ANORECTAL MANOMETRY PRG RECTAL SESATION TONE & COMPLIANCE TEST Eliane [place] [address] [facility] [address] [place] [address] Referral ID Status Reason Start Date Expiration Date V isits Requested Visits Authorized [id number] Closed Consult, Test & Treat 12/16/2023 12/15/2024 1 1 Encounter Details Date Type Department Care Team (Late st Contact Info) Description 12/16/2023 2:00 PM EDT [place] [address] [place] [address] Altered bowel function; Bloating; Encounter for colorectal cancer screening Social History Tobacco Use Types Packs/Day Years [...] Sign Reading Time Taken Comments Blood Pressure 125/66 12/16/2023 2:10 PM EDT Pulse 84 12/16/2023 2:10 PM EDT Temperature - - Respiratory Rate - - Oxygen Saturation 93% 12/16/2023 2:10 PM EDT Inhaled Oxygen Concentration - - Weight 81.8 kg (180 lb 4.8 oz) 12/16/2023 2:10 P M EDT Height 154.9 cm (5' 1) 12/16/2023 2:10 PM EDT Body Mass Index 34.07 12/16/2023 2:10 PM EDT documented in this encounter Patient Instructions * Patient Instructions* Eliane Peterson APRN - 12/16/2023 2:00 PM EDT Please call the GI department to schedule the investigations if you do not hear from us within 1 week: Clinic [phone] Motility Lab scheduling [phone] Endoscopy scheduling- [phone] Mrs. Burgess, It was a pleasure to meet you. The plan is as follows: Diagnostics: Endoscopy Colonoscopy Hydrogen Breath Test Upper GI Series Labs: Celiac Panel and TSH Therapeutics: Miralax daily: Begin with 1/2 capful daily at night. You will titrate the dosage according to the consistency and frequency of stool. If you experience loose stools decrease dosage. If you experiencediarrhea stop MiraLAX and restart when stool is formed again. May increase to up to 2 capfuls daily, as tolerated. Continue to follow up with heat treater helper Follow up with PCP and/or PAD MACHINE OFFBEARER to discuss gynecological causes of bloating. Work with PCP on glycemic control for pre-diabetes. We will follow up via telehealth 3 weeks after testing. Functional Bowel Disorders: Information Handout for Patients and Primary Care Providers [facility] Gastrointestinal Motility, Esophageal, and Swallowing Disorders [facility] What are functional bowel disorders? These are the most common type of gastrointestinal disorders in the [facility] The most common functional bowel disorder in the [facility] is irritable bowel syndrome (IBS) Irritable bowel syndrome affects the lower GI tract and can cause bloating, abdominal pain, diarrhea, and constipation Functional dyspepsia (FD) affects the upper GI tract and can cause bloating, burping, heartburn, nausea, fullness and stomach discomfort In functional disorders the gut is structurally/anatomically normal but is not functioning properlydue to abnormalities in the enteric (gut) nervous system Two mechanisms - heightened sensitivity of the gut to normal sensations (sensory nerves) and abnormal gut motility (motor nerves) These disorders are caused by a combination of a genetic factors, changes to the gut microbiota (intestinal bacteria) and environmental triggers How common are these disorders and what is the impact? 15-20% of general [place] population has IBS or FD or both 2nd most common cause for lost work days (after common cold) in [place] Estimated $30 billion dollar cost to [place] economy per year These disorders can have a significant impact on quality of life How is the diagnosis made? The diagnosis of a functional disorder is NOT a ???diagnosis of exclusion?? (common misconception) Investigations may be necessary to look for other disorders (such as celiac disease) if the diagnosis is unclear Work-up may include history (description of symptoms), physical exam, bloodwork, stool studies, diagnostic imaging and endoscopy What is the prognosis? Functional bowel disorders are unfortunately chronic disorders and often have a major impact on patient quality of life, function, and relationships Symptoms may gradually resolve is a small proportion of patients (highest rate in patients with immediate onset of symptoms after infection); care home symptoms are expected in most patients however Intermittent exacerbations (i.e. ???flares?? ) are common and may be caused by stress, infections, antibiotic exposure, and lack of adherence to treatment plans When should a patient be re-evaluated? Patients with stable symptoms do NOT need episodic re-evaluation Subtle changes in symptoms and symptom flares are common Patients should be re-evaluated if they have progression or dramatic changes in symptoms, severe abdominal pain, swallowing difficulties, unexplained weight loss, anemia (low blood counts), or bleeding If you have concerns be sure to talk to your doctor What are the goals of therapy? Ultimately we hope that you to able to achieve prolonged periods of stability with minimal daily symptoms and have a decrease in the frequency/severity of ???flares?? However, we believe the most important goal is to help you improve your overall quality of life. For most patients this means doing the things that are important in your life despite having symptoms. This is generally achieved by helping you develop coping skills and helping you achieve a greater understanding of your disorder. Remember, generally complete resolution of symptoms is NOT a realistic goal. How do I use this information? Talk to you primary care provider and/or local air valve mechanic and share this document. Treatment of functional disorders is a team effort! Set realistic goals! Remember it is unlikely that any one measure will completely eliminate all symptoms ???Start low and go slow?? with all measures to avoid potential side effects Do ONE measure at a time - add measures as needed in a ???step-oliva fashion?? - this will help determine if a particular measure is helpful or not Stay on any measure continuously for at least 4-6 weeks prior to assessing whether or not it is helping (improvements are often slow to occur) After an adequate trial ask yourself if the benefit is worth continuing the treatment Remember there are a limited number of treatment options available. We want to be absolutely sure that a measure is not effective or intolerable before stopping it and considering other options Often patients will need several ???layers?? or ???steps?? of therapy - finding the right combination for you takes time and patience We specifically recommend all patients to do ALL lifestyle and dietary measures AND try using Metamucil (or other psyllium fiber supplement) and probiotics together - this approach benefits most patients OTC (ixcb-wsa-gnjubbv) medications can be used for ongoing bothersome symptoms as listed below Your provider (PCP or local Gastroenterology provider or [facility] provider) may decide to use prescription medications if you have ongoing symptoms despite strict adherence to lifestyle and dietary measures and OTC medications Your provider will give you advice on treatments but it is your responsibility to work on these measures to improve your symptoms. Lack of adherence to recommendations is one of the most common causefor ongoing symptoms. If symptoms are controlled try easing back or stepping down on measures - remember the main goal isto improve quality of life (not necessarily eliminate symptoms). Non-Pharmacologic General Treatments Lifestyle measures Many lifestyle factors can worsen IBS symptoms However, IBS is not caused by these factors (common misconception) These lifestyle factors include the following: Inadequate sleep Weight gain Inadequate exercise Stress Depression/anxiety - this should be brought up to your Primary Care Provider (if left untreated it is unlikely the functional bowel disorder will improve) Dietary measures Trigger food avoidance - you should re-introduce foods once symptoms settle as overly restrictive diet can be unhealthy and even harmful Fatty foods, spicy foods, alcohol, and caffeine can worsen symptoms Consider a 2 week dairy-free trial for possible lactose-intolerance Your PCP or GI provider can refer you to a dietitian to discuss specialized diets. The overall dietary goal is to allow you to have a well-balanced and nutritious diet Fiber and Fluid Adequate fiber and fluid intake is essential for optimal functioning of the human digestive tract Aim for a fluid intake goal of 8-10 glasses of water a day (caffeine and alcohol count as minus onein calculation) Aim for a fiber intake goal of 30 grams per day - some patients may require more or less Increase fiber by 5 grams per week (remember ???start low and go slow?? ) Fiber can be from multiple dietary sources but supplemental is often helpful Fiber intake should include psyllium fiber; this is the type of fiber used in research studies for treatment of functional disorders Sources of psyllium include All-Bran psyllium buds, Metamucil, Konsyl, bulk psyllium (health food stores and bulk stores) Specifically we recommend starting Metamucil or Konsyl at a low dosage - start at one teaspoon a day for one week then gradually increase by one teaspoon per week until no further benefit is achieved. Some patients may get bloating when they start a fiber supplement. This generally goes away after 1-2 weeks of daily therapy. Try backing off to a lower dose or trying an alternate version (such as sweetener-free Metamucil) If persistent issues try Citrucel (methylcellulose) as an alternate fiber supplement Probiotics Measures aimed at improving the microbiome such as probiotics are a promising area but convincing medical evidence is still lacking Wcys-whl-nzdhjim supplements including probiotics are not typically evaluated by FDA. The quality and even safety is often unclear and many products (despite being very expensive) actually do not contain any active ingredients at all! Live-culture yogurts, kombucha, sauerkraut and other dietary sources may help improve your microbiome Laura, TuNelson, and Visbiome are the three probiotics that are supported by medical research to have benefit for IBS Florastor has been shown to decrease antibiotic-associated diarrhea and post- infectious diarrhea BioK Plus has been shown to decrease antibiotic-associated diarrhea and antibiotic-related infections Jrwt-bwj-Hvimtnc Medications for Functional Gut Disorders Based on Symptoms Diarrhea Loperamide (Imodium) should be considered first for mild and intermittent symptoms - start with small doses and take several hours before needed (or even before bed) (it is generally considered safe for long-term use) Constipation Patients with mild constipation can use laxatives ???as needed?? (in other words, if you feel constipated or haven't had a regular bowel movement). However, patients with more severe constipation generally need laxatives on a regular schedule (every day or every second day for example). This is called ???maintenance therapy?? . PEG 3350 (Miralax) is a stool softener that is safe for braille duplicating machine operator usage (no risk of dependency) andthe dosage can be adjusted to achieve 1-2 soft bowel movements per day; you can take a capful (17g)twice daily if needed Milk of magnesia and lactulose are alternate stool softeners that are generally safe for regular use in most patients (you should ask your provider first). Bisacodyl (Dulcolax) and senna (Senokot) are stimulant laxatives for occasional use only as they may lead to dependency with regular long-term use. Enemas and bowel preparations (e.g. Colyte or Golytely) can be used to treat severe stool impaction---- this is called ???rescue therapy?? . Drink 2 litres in 4 hours in the evening then take another 2 litres over 4 hours the next morning. Another option is to mix up 14 capfuls of Miralax with 64 oz of Gatorade. After rescue therapy immediately begin aggressive ???maintenance therapy?? with the therapies above. Bloating/Pain Ensure constipation adequately treated - impacted stool can create a partial obstruction and contribute to pain Peppermint oil may also be useful; a capsule form exists as well (IBgard) Simethicone (Gas-X) can be helpful for occasional usage for ???gas spasms?? Acetominophen (Tylenol) is safest analgesic (pain killer) on the gut NSAIDs (e.g. ibuprofen) can cause gut irritation/inflammation - it's best to avoid or use in low doses only Medical cannabis has been used to treat various chronic pain disorders; it has been reported to benefit some patients with pain but has not be rigorously studied and may actually worsen symptoms in some patients with functional disorders. At this point we generally do NOT recommend using medical cannabis to treat functional disorders AVOID narcotics/opioids as they typically make symptoms much worse and there is a risk of addictionand/or dependence Exercise, hot-water bottle/heating pad, warm bath/shower, and warm beverages are also good treatments for painful bloating episodes Heartburn/Nausea/Vomiting/Dyspepsia Acid reducing medications such as proton-pump inhibitors (PPIs) and H2 blockers may be helpful especially if you have gastroesophageal reflux disease (GERD) Often a combination of anti-nausea medications (ynqi-rqe-gpgzrqi or prescription) works better thanhigh doses of only one medication A herbal product called STW5 (Iberogast) is supported by some studies to help dyspepsia but data onlong-term effectiveness and safety is limited L-carnitine and coenzyme Q10 supplements have been reported to be beneficial to some patients with chronic nausea and vomiting If using cannabis (recreational or medical) consider stopping for at least two weeks (ideally a full month). While cannabis has been reported to help some patients with nausea it may actually be contributing to symptoms. Disclaimer This information is intended for education purposes only It is not meant to replace direct patient-provider care All medications should be used under the supervision of a Gastroenterology provider or Primary CareProvider Authors are not liable for misuse/misinterpretation of this information Patient Resources [place] [employer] https://www.gastro.org/practice-guidance/ca-jcxxkvz-fbyhrj/ topic/zxwmrgqur-aedbe-juvwdtkr-ibs Badgut.org https://badgut.org/information-centre/j-x-whpsyxzeq-topics/ibs/ AboutIBS.org https://www.aboutibs.org/ Uptodate.com https://www.Forterra Systemsdate.com/contents/cwlxtvqao-qiixu-dwmjnyyf-vajjnq-psp-wtkevy documented in this encounter Progress Notes * Eliane Peterson APRN - 12/16/2023 2:00 PM EDT Images from the original note were not included. Chief Complaint: Mallorie Burgess is a 73 y.o. patient referred for consultation for bloating 08/03/2023: Assessment/Plan (Alberta Flores) Ms. Burgess is a 73 y.o. patient with chronic abdominal bloating and evidence of hepatic fibrosis (reported) on [facility] CT[facility]. Chronic abdominal bloating suspected to [...] reach out if ok to hold -fibroscan History of Present Illness: 73 y.o. female with a history of COPD, prediabetes, and many abdominal surgeries (colon/bladder, tubal ligation, ovarian surgery) who presents for consultation for bloating. Patient presents with abdominal bloating and abdominal distension for close to 1 year,and is has caused difficulty breathing. Patient reports she has to push down on her diaphragm to breath better. No dysphagia. Pt is conscientious when swallowing. Patient reports heartburn and acid reflux is controlled on omeprazole. She gets breakthrough episodes once every couple of months. Patient reports occasional nausea with dry heaves since being on the Semaglutide No vomiting. No early satiety. No post-prandial fullness. Patient had abdominal pain x1 (1 month ago) with constipation. It had been a week without a BM. Patient skips a bowel movement once a week. Pt is taking a stool softener. Patient will then have a couple bowel movements once she does go. It will take a couple days to feel complete evacuation of stool. No blood in stools or melena. Patient has gained 40-50lbs since 2019. Appetite stable. Current Regimen: Omeprazole 40mg daily Stool softener-unsure of the name Past Therapies: N/A Lifestyle NSAID use: Occasionally ibuprofen Caffeine/Soda: Soda and Flavored Water Diet: Regular Exercise: Active as can be Child Births: 3: Vaginally Depression/Anxiety/Stress: Anxiety H/O abuse: No Disordered Eatin following mother's Work: Retired: [employer] Review of systems: 14-system ROS reviewed and negative except as above Medications: Outpatient Medications Prior to Visit Medication Sig Dispense Refill dqrrvfyisf-nyazgkmkjvmbfp-rfcfmspiac (Breztri Aerosphere) 160-9-4.8 mcg/actuation inhaler (HFA) 2 puffs, Inhale, BID, rinse mouth and throat after use, # 5.9 g, 0 Refill(s) traMADoL (Ultram) 50 mg tablet Take 50 mg by mouth every 6 hours as needed for Pain. Takes once a day cephALEXin (Keflex) 250 mg capsule Take 1 capsule by mouth Daily at Noon. predniSONE (Deltasone) 10 mg tablet Take 1 tablet by mouth daily. 30 tablet 3 celecoxib (CeleBREX) 200 mg Capsule daily. UNABLE TO FIND 3 times daily. Med Name: *Restivin for Restless Leg Syndrome* omeprazole (PriLOSEC) 20 mg Capsule, Delayed Release(E.C.) [...] 1.5 mg by mouth 2 times daily. MAGNESIUM ORAL Take by mouth daily. *[place] Liquid form* No facility-administered medications prior to visit. Allergies: has No Known Allergies. Past Medical History: has a past medical history of COPD (chronic obstructive pulmonary disease) and Pre-diabetes. Past Surgical History: has a past surgical history that includes Ectopic surgery; Ovariancyst surgery; Tubal ligation; and Colon surgery. Family History: family history is not on file. denies family history of colon cancer, IBD, or celiac disease in mother father or other family members Social History: reports that she has been smoking cigarettes. She has never used smokeless tobacco.She reports current alcohol use of about 1.0 standard drink of alcohol per week. She reports that she does not currently use drugs. Physical Exam: VITAL SIGNS: BP 125/66 Pulse 84 Ht 154.9 cm (5' 1) Wt 81.8 kg (180 lb 4.8 oz) SpO2 93% BMI 34.07 kg/m?? BMI: Body mass index is 34.07 kg/m??. Questionnaire: No data to display Laboratory studies, imaging, and procedures (my review of prior records): 10/13/2023: Fibroscan Assessment/Plan: Ms. Burgess is a 73 y.o. patient with a history of COPD, prediabetes, and many abdominal surgeries (colon/bladder, tubal ligation, ovarian surgery) who presents for consultation for bloating. #Heartburn and Acid Reflux Patient reports heartburn and acid reflux is controlled on omeprazole. She gets breakthrough episodes once every couple of months. #Occasional Nausea Patient reports occasional nausea with dry heaves since being on the Semuglutide. #Bloating Patient presents with abdominal bloating and abdominal distension for close to 1 year,and it causesdifficulty breathing. Patient reports she has to push down on her diaphragm to breath better. Will obtain a hydrogen breath test to rule out SIBO given that patient has a history of abdominal surgeries and is prediabetic. Will obtain an endoscopy to look for any structural abnormalities. Recommend the patient continue to follow-up with pulmonology regarding difficulty breathing with bloating. Recommend the patient follow-up with PCP and/or PAD MACHINE OFFBEARER to rule out gynecological causes of bloating. Will obtain celiac panel. 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 #Altered Bowel Pattern Patient skips a bowel movement once a week. Pt is taking a stool softener. Patient will then have a couple bowel movements once she does go. It will take a couple days to feel complete evacuation of stool. No blood in stools or melena. Patient had abdominal pain x1 (1 month ago) with constipation. It had been a week without a BM. Patient should continue to work with PCP to manage glycemic control with prediabetes We discussed the role of dyssynergic defecation and constipation. Will proceed with anorectal manometry. Recommend the patient add MiraLAX to her nightly regimen. #Colorectal Screening Patient is unsure when her last colonoscopy was. Will proceed with colonoscopy for colorectal screening. We discussed that complete symptom relief may not be a fully achievable goal for this chronic condition, but that improvement in quality of life, healthy days at work and family functions, and also general symptom improvement may be more reasonable goals. We discussed that treatments should be tried individually and for periods of at least 4-8 weeks to truly assess symptom response. I did my bestto answer questions to the fullest ability. We discussed that recommended treatments should be tried individually for at least three months at a time to truly assess for a meaningful response, or as long as tolerated, before changing therapy. Recommendations: We discussed GI functional/motility disorders in depth today including pathophysiology, expected course, impact and treatment categories We also discussed realistic goals (with emphasis on improved quality of life) and patient responsibilities. Please see the patient handout for recommendations on general treatment measures including lifestyle, dietary, and non-prescription pharmacologic options. I will arrange a comprehensive evaluation of the structure and function of the patient's GI tract including the following investigations +/- referrals: Diagnostics: Endoscopy Colonoscopy Upper GI series with small bowel follow through Hydrogen breath test Anorectal manometry Labs: TSH and Celiac Panel Therapeutics: Follow up with Paperback Machine Operator regarding difficulty breathing Follow up with PCP and/or PAD MACHINE OFFBEARER to discuss gynecological causes of bloating Continue to work with PCP to manage glycemic control with prediabetes Miralax daily: Begin with 1/2 to 1 capful daily at night. You will titrate the dosage according to the consistency and frequency of stool. If you experience loose stools decrease dosage. If you experience diarrhea stop MiraLAX and restart when stool is formed again. May increase to up to 2 capfuls daily, as tolerated. Functional Bowel Handout We also discussed the collaborative care model of the [facility] GI motility program. The patient should continue to work with their PCP +/- local GI as the primary point(s) of contact for urgent issues, medication refills and adjustments as needed for continuity of care purposes in between visits to our center based on the recommendations above. Recommend PCP to refer to local GI if patient does not have a local GI currently (if outside the [facility] area). Yearly or bi-yearly visits with a member of the motility team may be available for co- management purposes depending upon the specific circumstances of the patient's medical condition. RTC with me in 3 weeks after testing Time spent reviewing records prior to this encounter on day of appointment: 0 minutes Time spent during encounter with patient including counselin minutes Time spent documenting encounter after office visit on day of appointment: 20 minutes Eliane Peterson APRN [facility] [place] [address] documented in this encounter Plan of Treatment Upcoming Encounters Date Type Department Care Team (Late st Contact Info) Description 07/12/2024 8:00 AM [facility] Hospital Encounter XRay at [address] [place] [address] Eliane Peterson APRN [facility] [place] [place] [address] Scheduled Orders Name Type Priority Associated Diagnoses Orde r Schedule High Definition Anal Manometry GI Routine Altered bowel function Expected: 12/16/2023 (Approximate), Expires: 06/16/2024 Breath Hydrogen Test GI Routine Bloating Expected: 12/16/2023, Expires: 06/16/2024 ENDOSCOPY CASE REQUEST: EGD, UPPER GI ENDOSCOPY (WRVU 2.09), COLONOSCOPY, DIAGNOSTIC (WRVU 3.26) Procedures Routine Bloating Encounter for colorectal cancer screening Ordered: 12/16/2023 XR Fluoro Upper GI With Small Bowel Follow Thru Imaging Routine Bloating Expected: 05/11/2024, Expires: 09/05/2024 Scheduled Procedures Name Priority Associated Diagnoses Date/Ti me INJECTION, FACET JOINT, W\FLUORO, LUMBAR, 2ND LEVEL (WRVU 1) Spondylosis of lumbar region without myelopathy or radiculopathy INJECTION, FACET JOINT, W\FLUORO, LUMBAR, SINGLE (WRVU 1.52) Spondylosis of lumbar region without myelopathy or radiculopathy documented as of this encounter Procedures Procedure Name Priority Date/Time Associated Diagnosis Comments TISSUE TRANSGLUTAMINASE, IGA Routine 12/16/2023 3:19 PM EDT Altered bowel function Bloating TSH Routine 12/16/2023 3:19 PM EDT Altered bowel function IGA Routine 12/16/2023 3:19 PM EDT Altered bowel function Bloating IGG Routine 12/16/2023 3:19 PM EDT Altered bowel function Bloating documented in this encounter Results * TSH (12/16/2023 3:19 PM EDT) Thyroid Stimulating Hormone 0.91 0.27 - 4.20 mcIU/mL [facility] Comment: Reference Interval (mcIU/mL): Females: ??First Trimester: 0.23-3.88 ??Second Trimester: 0.22-3.90 ??Third Trimester: 0.44-4.66 Blood 12/16/2023 3:19 PM EDT 12/16/2023 3:27 PM EDT Narrative Resulting Agency Comment Spec In Lab Eliane Peterson COURT OFFICER CHEMISTRY ORDERABL ES [facility] [place] [address] * Tissue transglutaminase, IgA (12/16/2023 3:19 PM EDT) TTG IgA Ab <0.4 <=10.0 u/ml [facility] Comment: Negative: ??<7 units/mL Indeterminate: 7-10 units/mL Positive: ??>10 units/mL Blood 12/16/2023 3:19 PM EDT 12/17/2023 7:31 AM EDT Narrative Resulting Agency Comment Spec In Lab Eliane Minerflori COURT OFFICER IMMUNOLOGY ORDERAB LES Performing Organization Address [facility] Co de Phone Number [facility] [place] [address] * IgG (12/16/2023 3:19 PM EDT) IgG 1,021 700 - 1,600 mg/dL [facility] Comment: Pediatric Reference Intervals obtained from the Caliper Reference Interval project. http://www.ZapMe.ca/caliperproject/index.html Blood 12/16/2023 3:19 PM EDT 12/16/2023 3:27 PM EDT Narrative Resulting Agency Comment Spec In Lab Eliane Minerflori COURT OFFICER CHEMISTRY ORDERABL ES Performing Organization Address [facility] Co de Phone Number [facility] [place] [address] * IgA (12/16/2023 3:19 PM EDT) IgA 125 70 - 400 mg/dL [facility] Blood 12/16/2023 3:19 PM EDT 12/16/2023 3:27 PM EDT Narrative Resulting Agency Comment Spec In Lab Eliane Minerflori COURT OFFICER CHEMISTRY ORDERABL ES Performing Organization Address [facility] Co de Phone Number [facility] [place] [address] documented in this encounter Visit Diagnoses Diagnosis Altered bowel function Other symptoms involving digestive system Bloating Flatulence, eructation, and gas pain Encounter for colorectal cancer screening Special screening for malignant neoplasms, colon documented in this encounter Care Teams Digital Media Planner Relationship Specialty Start Date End Date Dilan Hernandez MD [address] [place] [address] [place] [address] PCP - General 04/30/10 documented as of this encounter
--- OUTSIDE RECORDS SUMMARY | 2024-07-07 20:08 | XMS_ITS | Encounter Summary ---
Author Organization [facility] [place] [address] Care Team Providers Care Commissary Steward Name Role Phone Dilan Hernandez MD Primary Care Provider [phone] Reason for Referral * Diagnostic Test (Routine) - Closed Specialty Diagnoses / Procedures Referred By Contac t Referred To Contact Radiology Diagnoses DDD (degenerative disc disease), lumbar Procedures MRI Lumbar Spine wo Contrast (Generic) Tabatha Fernández APRN [facility] [place] [address] [place] [address] Referral ID Status Reason Start Date Expiration Date V isits Requested Visits Authorized [id number] Closed Specialty Service Requested 09/19/2020 03/18/2021 1 1 Reason for Visit * Diagnostic Test (Routine) - Closed Specialty Diagnoses / Procedures Referred By Contac t Referred To Contact Radiology Diagnoses DDD (degenerative disc disease), lumbar Procedures MRI Lumbar Spine wo Contrast (Generic) Tabatha Fernández APRN [facility] [place] [address] [place] [address] Referral ID Status Reason Start Date Expiration Date V isits Requested Visits Authorized [id number] Closed Specialty Service Requested 09/19/2020 03/18/2021 1 1 Encounter Details Date Type Department Care Team (Latest Contact Info) Description 09/21/2020 10:45 AM EDT - 09/21/2020 10:46 AM EDT [facility] [place] [address] Tabatha Fernández, [facility] [place] [address] DDD (degenerative disc disease), lumbar Discharge Disposition: [...] daily. 10/02/2020 documented as of this encounter Progress Notes * Kaleigh Alvarado RN - 09/18/2020 8:53 AM EDT MRI PRE-SEDATION ASSESSMENT NOTE NAME: Mallorie Burgess AGE: 70 y.o. : [address] [place] [address] Female [phone] (home) Telephone Information: Dilan Hernandez MD None No Known Allergies Date/Time of call: September 18, 2020/8:53 AM/ PREVIOUS MRI SCAN? Yes, the only way I could do it was if my came in and held my hand. HEIGHT: 5'1 WEIGHT: 150lbs SCHEDULED SCAN: MRI LUMBAR SPINE WITHOUT CONTRAST [[id number]] Order Questions Answers Where will study be performed? [facility] Radiology [120] SUBJECTIVE: I'm wicked claustrophobic. CAN YOU LAY FLAT? Most of the time. AIRWAY/BREATHING ISSUES? I have COPD. DO YOU HAVE ANY INVOLUNTARY MOVEMENTS? Restless leg. DO YOU HAVE ANY PAIN? Yes, my back. DO YOU TAKE PAIN MED ON A DAILY BASIS? Flexeril, Mirapex and Requip. ASSESSMENT: Appropriate for PO sedation. PLAN: Valium 5-10 mg PO (JLT) You must have a superintendent drivers present when you check in. This patient has been informed that they require a superintendent drivers to drive them home after this procedure. In the absence of a superintendent drivers, IR will not be able to sedate for your scan. Pt verbalized understanding of these instructions during the pre-procedure education via phone. Yes [place] of superintendent drivers: Robbie Phone number: PRIOR SCAN DATE/S SEDATION TYPE SUCCESSFUL 09/21/20 MRI Lumbar Spine wo Valium 5mg PO x2 yes Revised 11/03/17 documented in this encounter Plan of Treatment Upcoming Encounters Date Type Department Care Team (Late st Contact Info) Description 07/12/2024 8:00 AM [facility] Hospital Encounter XRay at [address] [place] [address] Eliane Peterson APRN [facility] [place] [address] Scheduled Procedures Name Priority Associated Diagnoses Date/Ti [...] in context of the clinical situation (Reference- Pamelak Et Al, Spine 2001). Findings: (Prevalence in [...] who have questions please contact the health daycare provider that requested your imaging first. ? Electronically signed by: Carie Jorgensen MD, [facility] ([phone]), at 09/21/2020 2:40 PM Narrative 09/21/2020 2:40 [...] the clinical situation (Reference- Jarvik Et Al, [id number]). Findings: (Prevalence in patients without low back [...] patients who have questions please contactthe health daycare provider that requested your imaging first. Tabatha Fernández APRN IMG MRI ORDERABLES documented in this encounter Visit Diagnoses Diagnosis DDD (degenerative disc disease), lumbar Degeneration of lumbar or lumbosacral intervertebral disc documented in this encounter Administered Medications Inactive Administered Medications - up to 3 most recent administrations Medication Order MAR Action Action Date Dose Rate Site diazePAM (Valium) tablet 5 mg 5 mg, Oral, EVERY 30 MIN PRN, 2 doses, Starting on Thu09/21/20 at 0756, Until Thu09/21/20 at 1148, Anxiety, MRI, Angio/IR (Day of Procedure), Routine Given 09/21/2020 11:48 AM EDT 5 mg Given 09/21/2020 11:12 AM EDT 5 mg documented in this encounter Care Teams Commissary Steward Relationship Specialty Start Date End Date Dilan Hernandez MD [address] [place] [address] [place] [address] PCP - General 04/30/10 documented as of this encounter
--- OUTSIDE RECORDS SUMMARY | 2024-07-07 20:09 | XMS_ITS | Encounter Summary ---
Author Organization [facility] Address [address] [place] [address] Care Team Providers Care Towel Hemmer Name Role Phone Dilan Hernandez MD Primary Care Provider [phone] Encounter Details Date Type Department Care Team (Latest Contact Info) Description 02/29/2020 Travel Social History Tobacco Use Types Packs/Day Years Used Date Smoking Tobacco: Every Day Cigarettes 1.5 40 Smokeless Tobacco: Current Comments:will cut down by us ing her Ecig - down to 1 pack a day PHQ-2 Answer Date Recorded PHQ-2 SUBTOTAL 0 02/29/2020 Interpersonal Safety Answer Date Record ed Physically Hurt Never 01/08/2020 Verbally Threaten Not on file 01/08/2020 Comments No Sex and Gender Information Value Date Recorded Sex Assigned at Female 03/25/2020 22:02 EDT Legal Sex Female 18:12 EST Gender Identity Female 08/02/2019 11:38 EST Sexual Orientation Asexual 03/25/2020 22 :02 EDT COVID-19 Exposure Response Date Recorded In the last month, have you been in contact with someone who was confirmed or suspected to have Coronavirus / COVID-19? No / Unsure 02/29/2020 5:59 EDT documented as of this encounter Functional Status * Are you deaf or do you have serious difficulty hearing? Answer Date of Assessment Author No 02/29/2020 14:00 Kristen Arriaga RN * Are you blind or do you have serious difficulty seeing, even when wearing glasses? Answer Date of Assessment Author No 02/29/2020 14:00 Kristen Arriaga RN * Do you have serious difficulty walking or climbing stairs? (5 years old or older) Answer Date of Assessment Author No 02/29/2020 14:00 Kristen Arriaga RN * Do you have difficulty dressing or bathing? (5 years old or older) Answer Date of Assessment Author No 02/29/2020 14:00 Kristen Arriaga RN * Because of a physical, mental, or emotional condition, do you have difficulty doing errands alone such as visiting a doctor's office or shopping? (15 years old or older) Answer Date of Assessment Author No 02/29/2020 14:00 Kristen Arriaga RN documented as of this encounter Mental Status * Because of a physical, mental, or emotional condition, do you have serious difficulty concentrating, remembering, or making decisions? (5 years old or older) Answer Entry Date Author No 02/29/2020 14:00 Kristen Arriaga RN documented in this encounter Plan of Treatment Not on file documented as of this encounter Visit Diagnoses Not on filedocumented in this encounter Care Teams Towel Hemmer Relationship Specialty Start Date End Date Dilan Hernandez MD [address] [place] [address],[address] [place] [address] PCP - General 07/28/19 documented as of this encounter
--- OUTSIDE RECORDS SUMMARY | 2024-07-07 20:09 | XMS_ITS | Encounter Summary ---
Author Organization [facility] Address [address] [place] [address] Care Team Providers Care Regulatory Affairs Director Name Role Phone Dilan Hernandez MD Primary Care Provider [phone] Reason for Visit * Reason Onset Date Comments Appointment Related 11/12/2022 Encounter Details Date Type Department Care Team (Late st Contact Info) Description 11/12/2022 Telephone [facility] [address] [place], [place] [phone] Gigi Perkins MD [address] [facility] [address] [place] [address] Appointment Related (/) Social History Tobacco Use Types Packs/Day Years [...] Sexual Orientation Asexual 03/25/2020 22 :02 EDT documented as of this encounter Functional Status * Are you deaf or do you have serious difficulty hearing? Answer Date of Assessment Author No 02/29/2020 14:00 EDT Kristen Dillon RN * Are you blind or do you have serious difficulty seeing, even when wearing glasses? Answer Date of Assessment Author No 02/29/2020 14:00 EDT Kristen Dillon RN * Do you have serious difficulty walking or climbing stairs? (5 years old or older) Answer Date of Assessment Author No 02/29/2020 14:00 EDT Kristen Dillon RN * Do you have difficulty dressing or bathing? (5 years old or older) Answer Date of Assessment Author No 02/29/2020 14:00 EDKristen Boles RN * Because of a physical, mental, or emotional condition, do you have difficulty doing errands alone such as visiting a doctor's office or shopping? (15 years old or older) Answer Date of Assessment Author No 02/29/2020 14:00 EDT Kristen Dillon RN documented as of this encounter Mental Status * Because of a physical, mental, or emotional condition, do you have serious difficulty concentrating, remembering, or making decisions? (5 years old or older) Answer Entry Date Author No 02/29/2020 14:00 Kristen Arriaga RN documented in this encounter Miscellaneous Notes * Telephone Encounter - Faviola Anne - 11/12/2022 1414 EDT Images from the original note were not included. Received a call from Mallorie to schedule her appointment with Dr. Perkins. Booked as per below; she is aware to arrive at 1:30pm at [facility] for an x-ray before her 2:15pm office visit. She had no questions at this time. documented in this encounter Plan of Treatment Not on file documented as of this encounter Visit Diagnoses Not on filedocumented in this encounter Care Teams Regulatory Affairs Director Relationship Specialty Start Date End Date Dilan Hernandez MD [address] [place] [address],[address] [place] [address] PCP - General 07/28/19 documented as of this encounter
--- OUTSIDE RECORDS SUMMARY | 2024-07-07 20:09 | XMS_ITS | Encounter Summary ---
Author Organization [facility] Address [address] [place] [address] Care Team Providers Care Special Education Kindergarten Teacher Name Role Phone Dilan Hernandez MD Primary Care Provider [phone] Reason for Visit * Radiology Services (Routine) - Closed Specialty Diagnoses / Procedures Referred By Contrao t Referred To Contact Diagnoses Gastric outlet obstruction Procedures FL UGI WO AIR W COSMETICS PRESSER FL UGI AIR W COSMETICS PRESSER Hollis Salgado MD Phone: tel: fax: Referral ID Status Reason Start Date Expiration Date Visits Re quested Visits Authorized [id number] Closed 05/17/2020 1 1 Encounter Details Date Type Department Care Team (Latest Contact Info) Description 06/15/2020 9:57 EST - 06/15/2020 23:59 EST Hospital Encounter [facility] Radiology Fluoroscopy - [facility] [place] [address] [place] [address] Gastric outlet obstruction Discharge Disposition: Home or Self Care Social History Tobacco Use Types Packs/Day Years [...] have Coronavirus / COVID-19? No / Unsure 06/15/2020 9:54 EST documented as of this encounter Functional Status [...] Kristen Arriaga RN documented in this encounter Medications at Time of Discharge acetaminophen (TYLENOL) 325 mg tablet Take 2 Tabs by mouth every 4 hours as needed for Pain. 03/02/2020 acetaminophen (TYLENOL) 500 mg tablet Take 1 Tablet by mouth every 6 hours as needed for Pain. albuterol 90 mcg/actuation inhaler Inhale 2 Puffs as directed every 4 hours as needed for Wheezing. Uses 1 x day escitalopram oxalate (LEXAPRO) 10 mg tablet Take 1 Tablet by mouth daily. ferrous sulfate 324 mg (65 mg iron) tablet,delayed release (DR/EC) Take 1 Tablet by mouth daily with breakfast. fluticasone-umeclidi n-vilanter (TRELEGY ELLIPTA) 100-62.5-25 mcg Inhale 1 Puff as directed daily before breakfast. omeprazole (PRILOSEC) 20 mg capsule Take 2 Capsules by mouth daily before breakfast. ondansetron (ZOFRAN-ODT) 4 mg disintegrating tablet Take 1 Tab by mouth every 8 hours as needed for Nausea. 12 Tab 1 03/02/2020 oxyCODONE (ROXICODONE) 5 mg/5 mL solution Take 5 mL by mouth every 4 hours as needed for Pain. Daily Max: 30 mg 80 mL 03/02/2020 pramipexole (MIRAPEX) 1 mg tablet Take 1 Tablet by mouth 2 times daily. rOPINIRole (REQUIP) 0.5 mg tablet Take 1 Tablet by mouth 2 times daily. Restless Legs documented as of this encounter Discharge Disposition Disposition Code Departure Means Destination Home or Self Care documented in this encounter Plan of Treatment Not on file documented as of this encounter Procedures Procedure Name Priority Date/Time Associated Diagnosis Comments FL UGI WO AIR W COSMETICS PRESSER Routine 06/15/2020 10:21 EST Gastric outlet obstruction documented in this encounter Results * FL UGI WO AIR W COSMETICS PRESSER (06/15/2020 10:21 EST) Anatomical Region Laterality Modality Body Radio Fluoroscop y 06/15/2020 10:4 4 EST Narrative 06/15/2020 10:44 EST FL UGI WO AIR W COSMETICS PRESSER ??06/15/2020 10:30 AM Clinical History/Comments: evaluate gastrojejunostomy site. Findings: Single contrast upper GI with sales audit clerk Brush Polisher film shows evidence of a gastrojejunostomy air is noted in the: Single contrast esophagram is within normal limits Images through the stomach show no evidence of stomach through the normal gastric pylorus and no visualization the duodenum is seen. Of note is a widely patent [id number] gastrojejunostomy. No marginal ulceration is noted for single- contrast techniques. Procedure Note James Yun MD - 06/15/2020 FL UGI WO AIR W COSMETICS PRESSER 06/15/2020 10:30 AM Clinical History/Comments: evaluate gastrojejunostomy site. Findings: Single contrast upper GI with sales audit clerk Brush Polisher film shows evidence of a gastrojejunostomy air is noted in the: Single contrast esophagram is within normal limits Images through the stomach show no evidence of stomach through the normalgastric pylorus and no visualization the duodenum is seen. Of note is awidely patent [id number] gastrojejunostomy. No marginal ulceration isnoted for single- contrast techniques. Hollis Salgado MD IMG FLUOROSCOPY O RDERABLES Final Result documented in this encounter Visit Diagnoses Diagnosis Gastric outlet obstruction Acquired hypertrophic pyloric stenosis documented in this encounter Care Teams Special Education Kindergarten Teacher Relationship Specialty Start Date End Date iDlan Hernandez MD [address] [place] [address] ,[address] [place] [address] PCP - General 07/28/19 documented as of this encounter
--- OUTSIDE RECORDS SUMMARY | 2024-07-07 20:09 | XMS_ITS | Encounter Summary ---
Author Organization [facility] Address [address] [place] [address] Care Team Providers Care Butter Printer Name Role Phone Dilan Hernandez MD Primary Care Provider [phone] Reason for Visit * Reason Onset Date Comments Post-op Problem 03/07/2020 Encounter Details Date Type Department Care Team (Late st Contact Info) Description 03/07/2020 Telephone [facility] [address] [place], [place] [phone] Hollis Salgado MD [address] [facility] [address] [place] [address] Post-op Problem Social History Tobacco Use Types Packs/Day Years [...] Date of Assessment Author No 02/29/2020 14:00 LAT Kristen Dillon RN * Do you have difficulty dressing or bathing? (5 years old or older) Answer Date of Assessment Author No 02/29/2020 14:00 EDT Kristen Dillon RN * Because of a physical, mental, [...] Answer Entry Date Author No 02/29/2020 14:00 EDT Kristen Dillon RN documented in this encounter Miscellaneous Notes * Telephone Encounter - Danielle Foster RN - 03/07/2020 1141 EDT Mallorie is calling as she felt nauseous this morning, took a zofran but threw up before it dissolved. She tells me she did not eat breakfast this morning and had mashed potatoes and squash for dinner last night. She tells me she is sipping on an Ensure currently and is feeling better. I have encouraged her to push the fluids and to call back if she is continuing to vomit on a regular basis. * Telephone Encounter - Talisha York - 03/07/2020 1046 EDT S/p lap gastrojejunostomy 02/28. Delavan nauseated this AM and took a anti nausea pill. Shortly after she vomited. ? Is this normal. documented in this encounter Plan of Treatment Not on file documented as of this encounter Visit Diagnoses Not on filedocumented in this encounter Care Teams Butter Printer Relationship Specialty Start Date End Date Dilan Hernandez MD [address] [place] [address],[address] [place] [address] PCP - General 07/28/19 documented as of this encounter
--- OUTSIDE RECORDS SUMMARY | 2024-07-07 20:09 | XMS_ITS | Encounter Summary ---
Author Organization [facility] Address [address] [place] [address] Care Team Providers Care Electro Mechanical Engineer Name Role Phone Dilan Hernandez MD Primary Care Provider Reason for Referral * Radiology Services (Routine/Next Available) - Authorization Not Required Specialty Diagnoses / Procedures [facility] Referred To Contact Diagnoses Lumbar radiculopathy Procedures XR LUMBAR SPINE 4+ VIEWS Aster Whiteside NP Phone: tel: fax: [facility] Referral ID Status Reason Start Date Expiration Date Visits Requested Visits Authorized [id number] Authorization Not Required 10/31/2022 1 1 Encounter Details Date Type Department Care Team (Late st Contact Info) Description 10/31/2022 Orders Only [facility] [address], [place] [address] Aster Whiteside NP [address] [facility], [address] [place] [id number] Lumbar radiculopathy (Primary Dx) Social History Tobacco Use [...] on file documented as of this encounter Results * XR LUMBAR SPINE 4+ VIEWS (12/02/2022 13:33 EDT) Anatomical Region Laterality Modality Computed Radiogr aphy 12/03/2022 6:14 EDT Impressions 12/03/2022 6:14 EDT Degenerative changes and malalignment with slight dynamic motion at L3-L4. Transitional lumbosacral anatomy, as above. [id number] Narrative 12/03/2022 6:14 EDT LUMBAR SPINE, 4 VIEWS HISTORY: Lumbar radiculopathy. TECHNIQUE: AP, lateral, flexion, extension views lumbar spine. COMPARISON: Lumbar spine MRI 10/22/2022. FINDINGS: Redemonstrated transitional anatomy with sacralization of L5 and a rudimentary L5-S1 intervertebral disc. Of note, this appears to be discordant with spinal numbering on the prior MRI report from 10/22/2022. Relative to the sacrum, there is rightward curvature of the lower thoracic and upper lumbar spine and leftward curvature of the lower lumbar spine. There is slight rightward listhesis of L2 on L3 and leftward listhesis of L3 on L4. Left superior pelvic tilt and minor pelvic rotation. Maintained lordosis with grade 1 anterolisthesis L3 on L4 and L4 on L5. Anterolisthesis of L3 on L4 appears slightly increased in flexion compared to extension. Anterolisthesis of L4 on L5 appears unchanged between positions (measuring approximately 7.5 in both positions). No significant vertebral body height loss. Multilevel disc degeneration with height loss and bony proliferative changes. Multilevel degenerative facet arthropathy, most pronounced at L3-L4 and L4-L5. Diffuse bony demineralization. Scattered atherosclerotic calcifications are present throughout the abdominal aorta and its major branches. Degenerative changes noted in the sacroiliac joints, hips, pubic symphysis. Procedure Note Dwayne Castellon MD - 12/03/2022 LUMBAR SPINE, 4 VIEWS HISTORY: Lumbar radiculopathy. TECHNIQUE: AP, lateral, flexion, extension views lumbar spine. COMPARISON: Lumbar spine MRI 10/22/2022. FINDINGS: Redemonstrated transitional anatomy with sacralization of L5 and arudimentary L5-S1 intervertebral disc. Of note, this appears to bediscordant with spinal numbering on the prior MRI report from 10/22/2022. Relative to the sacrum, there is rightward curvature of the lower thoracicand upper lumbar spine and leftward curvature of the lower lumbar spine.There is slight rightward listhesis of L2 on L3 and leftward listhesis ofL3 on L4. Left superior pelvic tilt and minor pelvic rotation. Maintainedlordosis with grade 1 anterolisthesis L3 on L4 and L4 on L5.Anterolisthesis of L3 on L4 appears slightly increased in flexion comparedto extension. Anterolisthesis of L4 on L5 appears unchanged betweenpositions (measuring approximately 7.5 in both positions). No significant vertebral body height loss. Multilevel disc degeneration with height loss and bony proliferativechanges. Multilevel degenerative facet arthropathy, most pronounced atL3-L4 and L4-L5. Diffuse bony demineralization. Scattered atherosclerotic calcificationsare present throughout the abdominal aorta and its major branches.Degenerative changes noted in the sacroiliac joints, hips, pubicsymphysis. IMPRESSION Degenerative changes and malalignment with slight dynamic motion atL3-L4. Transitional lumbosacral anatomy, as above. [id number] Aster Whiteside WIRE FRAME DIPPER IMG DIAGNOSTIC IMAGING ORDERABLES Final Result documented in this encounter Visit Diagnoses Diagnosis Lumbar radiculopathy- Primary Thoracic or lumbosacral neuritis or radiculitis, unspecified Lumbar radiculopathy Thoracic or lumbosacral neuritis or radiculitis, unspecified documented in this encounter Care Teams Electro Mechanical Engineer Relationship Specialty Start Date End Date Dilan Hernandez MD [address] [place] [address],[address] [place] [address] PCP - General 07/28/19 documented as of this encounter
--- OUTSIDE RECORDS SUMMARY | 2024-07-07 20:09 | XMS_ITS | Encounter Summary ---
Author Organization [facility] Address [address] [place] [address] Care Team Providers Care Rolfer Name Role Phone Dilan Hernandez MD Primary Care Provider [phone] Reason for Referral * Test (Routine/Next Available) - Authorization Not Required Specialty Diagnoses / Procedures Referred By Contac t Referred To Contact Diagnoses SOB (shortness of breath) Procedures PULMONARY FUNCTION TESTING Brandon Traylor MD Phone: tel: fax: Referral ID Status Reason Start Date Expiration Date Visits Requested Visits Authorized [id number] Authorization Not Required 11/13/2022 1 1 Reason for Visit * Test (Routine/Next Available) - Authorization Not Required Specialty Diagnoses / Procedures Referred By Contac t Referred To Contact Diagnoses SOB (shortness of breath) Procedures PULMONARY FUNCTION TESTING Brandon Traylor MD Phone: tel: fax: Referral ID Status Reason Start Date Expiration Date Visits Requested Visits Authorized [id number] Authorization Not Required 11/13/2022 1 1 Encounter Details Date Type Department Care Team (Latest Contact Info) Description 02/18/2023 10:30 EDT - 02/18/2023 23:59 EDT Hospital Encounter [facility] Pulmonary Function Lab - [address] [address] [facility] Ped[facility], [facility] Pft Lab SOB (shortness of breath) Discharge Disposition: Home or Self Care Social [...] of Assessment Author No 02/29/2020 14:00 Kristen Arriaga, RUPA * Do you have serious difficulty walking or climbing stairs? (5 years old or older) Answer Date of Assessment Author No 02/29/2020 14:00 Kristen Arriaga RN * Do you have difficulty dressing or bathing? (5 years old or older) Answer Date of Assessment Author No 02/29/2020 14:00 Kristen Arriaga RN * Because of a physical, mental, or emotional condition, does this person have difficulty doing errands alone such as visiting a doctor's office or shopping? Answer Date of Assessment Author No 12/02/2022 14:55 Kristen Arriaga, RN documented as of this encounter Mental Status * Because of a physical, mental, or emotional condition, does this person have serious difficulty concentrating, remembering, or making decisions? Answer Entry Date Author No 12/02/2022 14:55 EDT Kristen Dillon RN documented in this encounter Medications at [...] or Self Care documented in this encounter Progress Notes * Adrienne Willis PFT - 02/18/2023 1030 EDT Testing was performed and recorded in [facility]. See complete report in Procedures. documented in this encounter Plan of Treatment Not on file documented as of this encounter Procedures Procedure Name Priority Date/Time Associated Diagnosis Comments PULMONARY FUNCTION TESTING Routine 02/18/2023 10:50 EDT SOB (shortness of breath) documented in this encounter Results * PULMONARY FUNCTION TESTING (02/18/2023 10:50 EDT) 02/18/2023 10:5 0 EDT us Brandon Traylor MD PFT ORDERABLES Final Result [facility] PFT documented in this encounter Visit Diagnoses Diagnosis SOB (shortness of breath) Shortness of breath documented in this encounter Care Teams Rolfer Relationship Specialty Start Date End Date Dilan Hernandez MD [address] [place] [address],[address] [place] [phone] PCP - General 07/28/19 documented as of this encounter
--- OUTSIDE RECORDS SUMMARY | 2024-07-07 20:09 | XMS_ITS | Encounter Summary ---
Author Organization [facility] Address [address] [place] [address] Care Team Providers Care Asbestos Textile Supervisor Name Role Phone Dilan Hernandez MD Primary Care Provider [phone] Reason for Visit * (Routine/Next Available) - Receiving Office to Obtain Authorization Specialty Diagnoses / Procedures Referred By Contrao t Referred To Contact Procedures XR OUTSIDE IMAGES MSK Unknown, Provider, MD Referral ID Status Reason Start Date Expiration Date Visits Requested Visits Authorized [id number] Receiving Office to Obtain Authorization 1 1 1 Encounter Details Date Type Department Care Team (Latest Contact Info) Description 02/28/2021 0:05 EDT - 02/28/2021 23:59 EDT Hospital Encounter [facility] [place] Discharge Disposition: Home or Self Care Social [...] Procedure Name Priority Date/Time Associated Diagnosis Comments XR OUTSIDE IMAGES MSK Routine 03/20/2021 12:42 EDT documented in this encounter Results * XR OUTSIDE IMAGES MSK (03/20/2021 12:42 EDT) Narrative 03/20/2021 12:42 EDT This is a non-reportable exam. us Provider Unknown MD [facility] OTHER IMAGING ORDERABLES Final Result documented in this encounter Visit Diagnoses Not on filedocumented in this encounter Care Teams Asbestos Textile Supervisor Relationship Specialty Start Date End Date Dilan Hernandez MD [address] [place] [address] ,[address] [place] [phone] PCP - General 07/28/19 documented as of this encounter
--- OUTSIDE RECORDS SUMMARY | 2024-07-07 20:09 | XMS_ITS | Encounter Summary ---
Author Organization [facility] Address [address] [place] [address] Care Team Providers Care Security Patrol Officer Name Role Phone Dilan Hernandez MD Primary Care Provider [phone] Encounter Details Date Type Department Care Team (Late st Contact Info) Description 08/21/2021 Lab Requisition [facility] Pathology & Laboratory Medicine - [facility] [address] [place] [address] Outr Resulting Lab, Provider Social History Tobacco Use Types Packs/Day Years [...] No 02/29/2020 14:00 EDKristen Boles RN * Are you blind or do [...] Procedure Name Priority Date/Time Associated Diagnosis Comments T3 FREE Routine 08/21/2021 17:01 EDT documented in this encounter Results * T3 FREE (08/21/2021 17:01 EDT) T3, Free 4.0 2.8 - 5.3 pg/mL 08/22/2021 21:46 EDT [facility] Blood VENOUS BLOOD / Unknown 08/21/2021 17:01 EDT 08/22/2021 21:01 EDT us Provider Outr Resulting Lab CHEMISTRY & BLOOD GA S ORDERABLES Final Result [facility] [address] [place] [address] documented in this encounter Visit Diagnoses Not on filedocumented in this encounter Additional Health Concerns Infection Onset Date Last Indicated Resolved Time R/O COVID-19 12/03/2023 12/03/2023 12/03/2023 19:0 4 EDT documented as of this encounter Care Teams Security Patrol Officer Relationship Specialty Start Date End Date Dilan Hernandez MD [address] [place] [address],[address] [place] [phone] PCP - General 07/28/19 documented as of this encounter
--- OUTSIDE RECORDS SUMMARY | 2024-07-07 20:09 | XMS_ITS | Referral Summary ---
Author Organization [facility] Address [address] [place] [address] Care Team Providers Care Automation Machine Builder Name Role Phone Dilan Hernandez MD Primary Care Provider [phone] Allergies No known active allergies Medications albuterol 90 mcg/actuation inhaler Inhale 2 Puffs as directed every 4 hours as needed for Wheezing. Uses 1 x day Active fluticasone-umeclid in-vilanter (TRELEGY ELLIPTA) 100-62.5-25 mcg Inhale 1 Puff as directed daily before breakfast. Active pramipexole (MIRAPEX) 1 mg tablet Take 1 Tablet by mouth 2 times daily. Active escitalopram oxalate (LEXAPRO) 10 mg tablet Take 1 Tablet by mouth daily. Active rOPINIRole (REQUIP) 0.5 mg tablet Take 1 Tablet by mouth 2 times daily. Restless Legs Active omeprazole (PRILOSEC) 20 mg capsule Take 2 Capsules by mouth daily before breakfast. Active ferrous sulfate 324 mg (65 mg iron) tablet,delayed release (DR/EC) Take 1 Tablet by mouth daily with breakfast. Active acetaminophen (TYLENOL) 500 mg tablet Take 1 Tablet by mouth every 6 hours as needed for Pain. Active acetaminophen (TYLENOL) 325 mg tablet Take 2 Tabs by mouth every 4 hours as needed for Pain. 0 Active ondansetron (ZOFRAN-ODT) 4 mg disintegrating tablet Take 1 Tab by mouth every 8 hours as needed for Nausea. 12 Tab 1 0 Active oxyCODONE (ROXICODONE) 5 mg/5 mL solution Take 5 mL by mouth every 4 hours as needed for Pain. Daily Max: 30 mg 80 mL 0 Active Active Problems Problem Noted Date Diagnosed Date Gastric outlet obstruction 07/28/2019 COPD (chronic obstructive pulmonary disease) ( [facility]) Tobacco abuse Gastric outlet obstruction Overview (08/09/2019): Documented by EGD 12/2014 for [facility]. Peptic ulcer disease Social History Tobacco Use Types Packs/Day Years [...] Sexual Orientation Asexual 03/25/2020 22 :02 EDT Last Filed Vital Signs Vital Sign Reading Time Taken Comments Blood Pressure 137/77 12/03/2023 181 EDT Pulse 92 12/03/20231811 EDT Temperature 36.7 ??C (98.1 ??F) 12/03/2023 181 EDT Respiratory Rate 26 12/03/20231811 EDT Oxygen Saturation 94% 12/03/20231811 EDT Inhaled Oxygen Concentration - - Weight 81.6 kg (180 lb) 12/03/2023 181 EDT Height 154.9 cm (5' 1) 12/03/2023 181 EDT Body Mass Index 34.01 12/03/2023 181 EDT Functional Status * Are you deaf or [...] Date of Assessment Author No 12/02/2022 14:55 EDKristen Boles RN Mental Status * Because of a physical, mental, or emotional condition, does this person have serious difficulty concentrating, remembering, or making decisions? Answer Entry Date Author No 12/02/2022 14:55 Kristen Arriaga RN Plan of Treatment Not on file Procedures Procedure Name Priority Date/Time Associated Diagnosis Comments HCV RNA DETECT QUANT Routine 07/24/2023 13:25 EST PULMONARY FUNCTION TESTING Routine 02/18/2023 10:50 EDT SOB (shortness of breath) from Last 3 Months or Most Recently Relevant to Health Maintenance Results * HCV RNA DETECT QUANT (07/24/2023 13:25 EST) HCV RNA Qualitative Undetected Undetected 07/27/2023 13:09 EST [facility] Blood VENOUS BLOOD / Unknown 07/24/2023 13:25 EST 07/24/2023 21:17 EST Narrative [facility] - 07/27/2023 13:09 EST The quantification range of this assay is 15 IU/mL to 100,000,000 IU/mL. Testing was performed using the Valery HCV test ([employer] with the valery [id number] System. us Provider Outr Resulting Lab CHEMISTRY & BLOOD GA S ORDERABLES Final Result [facility] [address] [place] [address] * PULMONARY FUNCTION TESTING (02/18/2023 10:50 EDT) 02/18/2023 10:5 0 EDT Brandon Traylor MD PFT ORDERABLES Final Result [facility] PFT from Last 3 Months or Most Recently Relevant to Health Maintenance Insurance [employer] Advance Directives For more information, please contact: [phone] * Full Code (Latest Code Status on File) Date Activated Date Inactivated Comments 02/29/2020 6:42 02/29/2020 13:01 Question Answer Comments Reason for decision includes: Full code consistent with overall plan of care Who participated in the discussion? Not Discusse d Care Teams Automation Machine Builder Relationship Specialty Start Date End Date Dilan Hernandez MD [address] [place] [address],[address] [place] [address] PCP - General 07/28/19
--- OUTSIDE RECORDS SUMMARY | 2024-07-07 20:09 | XMS_ITS | Encounter Summary ---
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 * (Routine) - Receiving Office to Obtain Authorization Specialty Diagnoses / Procedures Referred By Contac t Referred To Contact Silva Salazar NP Phone: tel: fax: Referral ID Status Reason Start Date Expiration Date Visits Requested Visits Authorized [id number] Receiving Office to Obtain Authorization Specialty Services Required 0 1 1 Comments Chest pain (angina) Dizziness or fainting Decreased urine output Fever greater than 101 or chills Inability to swallow or increasing difficulty swallowing Increased or new pain Nausea or vomiting Pain unrelieved by medication Recurrence of symptoms that brought you to the hospital Severe or increasing headache Shortness of breath or rapid breathing Skin rash Signs of infection such as pain, redness, swelling or drainage at procedure or wound site Swelling in your legs * (Routine) - Receiving Office to Obtain Authorization Specialty Diagnoses / Procedures Referred By Albert castaneda Referred To Contact Silva Salazar NP Phone: tel: fax: Referral ID Status Reason Start Date Expiration Date Visits Requested Visits Authorized [id number] Receiving Office to Obtain Authorization Specialty Services Required 0 1 1 Comments We are currently collecting quality data on patients having surgery. You may receive a phone call, email, and/or letter about your surgery asking you a series of follow up questions to evaluate specifics aspects of your care. Thank you for your participation. Reason for Visit * Auth/Cert Specialty Diagnoses / Procedures Referred By Albert castaneda Referred To Contact Diagnoses Gastric outlet obstruction Procedures [facility] GASTROJEJUNOSTOMY Laparoscopic gastrojejunostomy Referral ID Status Reason Start Date Expiration Date Visits Re quested Visits Authorized [id number] 1 1 Encounter Details Date Type Department Care Team (Late st Contact Info) Description 02/29/2020 6:04 EDT - 03/03/2020 10:23 EDT Hospital Encounter [facility] General Surgery Unit [address] [place] [address] [id number] Hollis Salgado MD [address] [place] [address], [facility] [address] [place] [address] Discharge Disposition: Home or Self Care Social [...] 5:59 EDT documented as of this encounter Last Filed Vital Signs Vital Sign Reading Time Taken Comments Blood Pressure 102/61 03/03/2020 0548 EDT Pulse 69 03/03/2020 0136 EDT Temperature 36.1 ??C (97 ??F) 03/03/2020 0548 EDT Respiratory Rate 14 03/03/2020 0548 EDT Oxygen Saturation 93% 03/03/2020 0548 EDT Inhaled Oxygen Concentration - - Weight 62.5 kg (137 lb 11.2 oz) 03/02/2020 0935 EDT Height 154.9 cm (5' 1) 02/29/2020 1400 EDT Body Mass Index 26.02 02/29/2020 1400 EDT documented in this encounter Functional Status * Are you [...] Assessment Author No 02/29/2020 14:00 EDT Kristen Dillon, RPUA * Because of a physical, mental, or [...] Answer Entry Date Author No 02/29/2020 14:00 EDKirsten Boles RN documented in this encounter Discharge Summaries * Dwayne Parks MD - 03/02/2020 1555 EDT Surgery Discharge Summary Primary Care Provider: Dilan Hernandez Attending Physician: Hollis Salgado* Admit Date: 02/29/2020 Discharge Date: 03/03/20 Disposition: Home or self care Problems and Procedures Admitting Diagnosis: Gastric outlet obstruction Principal/Final Diagnosis: Gastric outlet obstruction Additional Problems Managed in the Hospital Active Hospital Problems Diagnosis Date Noted ??? *Gastric outlet obstruction Documented by EGD 12/2014 for [facility]. Resolved Hospital Problems No resolved problems to display. Principal Procedure: Laparoscopic gastrojejunostomy Date: 02/29/20 Hospital Course Mallorie Burgess is a 70 year old female with a past medical history of gastric outlet syndrome secondary to NSAID use and peptic ulceration. She had workup including upper endoscopy and biopsies negative for neoplasia. She underwent several dilations in the past but were largely unsuccessful in relieving her symptoms. An UGI showed high grade gastric outlet obstruction. She agreed to move forwardwith a surgical bypass procedure. A laparoscopic gastrojejunostomy was performed on 02/29/20 withoutcomplication. She was transferred to the PACU in good condition with a nasogastric tube in place. The nasogastric tube was removed on 03/02/20 and she tolerated this without any nausea or vomiting. Her diet was advanced and was tolerating PO, pain well-controlled with PO pain medications, and able to ambulate without difficulty. She was discharged on 03/03/2020 and will follow-up with Dr. Salgado in his outpatient clinic. Allergies and Immunizations No Known Allergies There is no immunization history on file for this patient. Transition of Care Plans Condition at Discharge Improved Assessment at Discharge Vital signs: At the time of discharge the patient's vitals were stable within normal limits, she was oxygenatingwell on room air, tolerating a liquid diet and ambulating independently. Results Pending at Discharge Test results still pending from this admission None Discharge Follow Up Future Appointments Date Time Provider Department Center 03/26/2020 11:30 Hollis Salgado MD [facility] Gen Surg None Cosigned by Hollis Salgado MD at 03/15/2020 12:55 EDT documented in this encounter Medications at Time [...] Restless Legs documented as of this encounter Ordered Prescriptions Prescription Sig Dispense Quantity Refills Last Filled Start Date End Date oxyCODONE (ROXICODONE) 5 mg/5 mL solution Take 5 mL by mouth every 4 hours as needed for Pain. Daily Max: 30 mg 80 mL 03/02/2020 ondansetron (ZOFRAN-ODT) 4 mg disintegrating tablet Take 1 Tab by mouth every 8 hours as needed for Nausea. 12 Tab 1 03/02/2020 acetaminophen (TYLENOL) 325 mg tablet Take 2 Tabs by mouth every 4 hours as needed for Pain. 03/02/2020 documented in this encounter Discharge Disposition Disposition Code Departure Means Destination Home or Self Half[place] documented in this encounter Progress Notes * Dwayne Parks MD - 03/03/2020 0127 EDT Surgery Daily Progress Note Date of Service: 03/03/2020 Admit Date: 02/29/2020 POD: 3 (02/29/2020) laparoscopic gastrojejunostomy CC: pyloric outlet obstruction, secondary to PUD 24 Hour Events: -NG tube removed, tolerated clear liquids Subjective: Hungry, wants to try full liquids and go home, minimal pain, no nausea since NG out, passing gas Objective: Temp: [35.7 ??C (96.3 ??F)-36.4 ??C (97.5 ??F)] Heart Rate: -- Pulse: [70-72] Pulse From Oximetry: [62 BPM-67 BPM] Resp: [16-18] BP: (97-104)/(57-67) SpO2: [90 %-100 %] Exam: General Appearance: Alert, oriented, and cooperative. Lung: Good air movement throughout Heart: regular rate and rhythm Abdomen: Abdomen is soft, non-distended, non tender Incision(s)/Wound(s): Laproscopic incision sites clean, dry, intact. No erythema. No swelling. Assessment: Mallorie Burgess is a 70 y.o. female with history of PUD and pyloric outlet obstruction now POD# 3 (02/29/2020) s/p laparoscopic gastrojejunosomy. Recovering well, tolerated clear liquids yesterday, if tolerates full liquids this am can d/c home. Plan: Full liquid diet D/c home if tolerates fulls Dwayne Parks MD 03/03/2020, 7:59 General Surgery PGY-5 Pager [phone] * Veronica Smith, RT - 03/02/2020 1226 EDT Respiratory Consult/Progress Note Indications for Respiratory therapy: COPD history Data Vitals: Heart Rate: 59 BPM, Resp: 16, SpO2: 92 % FIO2/O2 Device: , O2 Device: None, RT Orders: BID flovent PRN albuterol MDI Protocol Scoring: Bronchodilator/Inhalation Therapy Frequency Bronchodialator - Clinical Indications: Home regimen Breath Sounds: Any abnormal BS decreased Response: No change / no treatment Pulse: <100 Resp Rate: <18 SOB: None Total Score: 1 Airway Clearance Therapy Frequency Airway Clearance - Clinical Indications: No clinical indications Breath Sounds: Clear / diminished Sputum: Small (tsp) / None Consistency: None Cough Effort: Strong/ non-productive Color: None Total Score: 0 Hyperinflation Therapy Frequency Hyperinflation - Clinical Indications: No clinical indications Breath Sounds: Diminished / crackles Surgery: No X-Ray / Atelectasis: No O2 Requirements: 0-2 L above baseline Mobility Status: Mobile / at baseline Total: 3 Action/Events Patient has been up and walking with and has not been SOB. Her breath sounds are clear, diminished and she is on room air. She is able to use her inhalers with good technique and is appropriate for RN to admin. She is not indicted for any additional respiratory interventions at this time. Response/Results Keep MDIs as RN to admin. VERONICA SMITH, 03/02/20 * Sujey Nichole MD - 03/02/2020 0512 EDT Surgery Daily Progress Note Patient: Mallorie Burgess Date of Service: 03/02/2020 Admit Date: 02/29/2020 POD: 2 Procedure: laparoscopic gastrojejunostomy CC: pyloric outlet obstruction, secondary to PUD 24 Hour Events: -NAEO Subjective: Doing well overall. Did not sleep well, and woke several times SOB from nasal congestion. She also has increased phlegm that is non-productive. She has mild pain and is sore in the LLQ, but manageable under current regime. Reports flatus, no BM. Ice chips for comfort. Ambulating without light headedness to the bathroom. Voiding spontaneously without difficulty. Denies shortness of breath, CP, N/V, F/C, or lower extremity pain. NGT is very bothersome and her throat is sore, eager for its removal. Up and walking x 6 with her . All positive ROS noted in subjective Objective: Temp: [35.6 ??C (96.1 ??F)-36.8 ??C (98.2 ??F)] Heart Rate: -- Pulse: [60-80] Pulse From Oximetry: [57 BPM-73 BPM] Resp: [16-17] BP: (92-104)/(51-83) SpO2: [90 %-98 %] Exam: General Appearance: NAD. Alert, oriented, and cooperative. Lung: Diffuse expiratory wheeze noted on R posterior lung goncalves. Clear to auscultation anteriorly on the right and on the left goncalves. Heart: regular rate and rhythm, S1, S2 normal, no murmur, click, rub or gallop Abdomen: Abdomen is soft, non-distended, tender to palpation of epigastric region and LLQ. No rebound, guarding. Extremities: WWP, no edema. Skin: Skin color, temperature, turgor normal. No rashes or lesions Incision(s)/Wound(s): Laproscopic incision sites clean, dry, intact. No erythema. No swelling. Drains: NGT with bilious output Intake/Output Summary (Last 24 hours) at 03/02/2020 0745 Last data filed at 03/02/2020 0300 Gross per 24 hour Intake 1333.99 ml Output 3975 ml Net -2641.01 ml I&O By Type - 3 Shifts Including Current In: 807 [P.O.:75; I.V.:732] Out: 2700 [Urine:450; Emesis/NG output:2250] Assessment: Active Hospital Problems Diagnosis ??? *Gastric outlet obstruction Priority: Medium Documented by EGD 12/2014 for [facility]. Mallorie Burgess is a 70 y.o. female with history of PUD and pyloric outlet obstruction now POD# 2 s/p laparoscopic gastrojejunosomy. Recovering well on the floor but with persistently high NGT output,at this point thought secondary to reflux of bowel contents through gastrojejunostomy. Appropriate for clamping trial today. Plan: Pain: - Pain is currently well-controlled on current regimen of dilaudid q4 PRN, rectal tylenol 650 mg q4PRN. CV: - no current issues Resp: - Continue home COPD medications, titrate to SpO2 >88% - Incentive spirometer provided and use encouraged. - RT consult today GI: - NGT glove trial today - Sips of clears and ice chips for comfort until removal of NGT. Can then advance diet to clears. - Zofran 4 mg q4 PRN for nausea. : - No current issues. Heme: - DVT Prophylaxis: Ambulate, SCD's, Enoxaparin DVT prophylaxis 40mg started 03/01. FEN: - plasmalyte mIVF 80ml/hr to continue until diet advanced ID: - Afebrile and with no active issues. Home medications to continue: PPI, ropinirole, pramipexole, escitalopram. Disposition: D/c pending NGT removal and diet progression to clears. Pain needs to be well controlled with PO medications. Will transition to full diet once home. Kimberly Hatch 03/02/2020 7:45 Pager #[phone] I was present with the medical student for the history, exam, medical decision making documented byhim/her. I have personally performed my own physical exam and medical decision making. I have verified and agree with (or, as indicated, have edited) the medical student's documentation. Patient overall recovering well and demonstrating return of bowel function. High NGT output thought2/2 reflux from gastrojejunostomy- will clamp NGT this AM and remove later today if tolerating. Diet advancement to clears when NGT removed. Possible d/c tomorrow on fulls if able to advance diet appropriately. Sujey Nichole MD, PGY-2 03/02/2020 12:32 #[phone] * Emily Stapleton - 03/01/2020 0948 EDT Initial Case Management/Social Work Assessment and Discharge Plan/Readmission Risk Assessment REASON FOR ADMISSION: Gastric outlet obstruction now POD 1 lap gastrojejunostomy Patient understands reason for admission: Yes PATIENT CONTACT INFO VERIFIED: Yes PATIENT ADDRESS VERIFIED: Yes Type of housing (single family, condo, apartment, penitentiary, single room occupancy, [facility] funded hotel room, group fpc) - single family Who does the patient live with? family Does the patient have access to their own bedroom/bathroom/kitchen - or is it shared with others? shared LIVING ARRANGEMENTS AND ACCESSIBILITY ISSUES: Living Arrangements: Family members What in home social supports are available to the patient? Family member(s) Is 29/12 care available? No ADVANCED DIRECTIVES, POA &/or COLST IN PLACE: Healthcare Directive: No, patient does not have advance directive for healthcare treatment DIRECTIVES FOR FINANCES: TRANSPORTATION: Transportation: Family CULTURAL, ALEVISM and/or LANGUAGE factors affecting health care/discharge planning: Spiritual/Cultural Requests: None Any factors affecting health care/discharge planning?: No Insurance in Place: Yes Medical Insurance: Yes Type of insurance: Commercial insurance Commercial coverage: [facility] Medicare Advantage plan Nutrition: DISCHARGE RISK ASSESSMENT: History of anxiety/depression; Diagnosis of COPD; Incontinent; Polypharmacy, > 7 medications Total # selected above: Score of 2 - 4: This patient is at MODERATE RISK for re-hospitalization Tentative plan to address the risk of re-hospitalization for those at HIGH MODERATE RISK: Bring risk factors to attention of team to be addressed RAPT TOOL: Age: 66-75 Gender: Female Ambulation distance: 2 or more blocks (600ft) Gait device: None Community Services: Home health, [facility], [facility]-none Will you live with someone who will care for you?: Yes RAPT Tool Score: 10 Patient expects to be discharged to: home SBIRT: SASQ (Single Alcohol Screening Question) How many times in the past year have you had 4 or more drinks in a single day?: Never How many times in the past year have you used an illegal drug or used a prescription medication fornon-medical reasons?: Never Intervention in place/initiated?: No, not indicated FUNCTIONAL STATUS: Activities patient requires assistance: None Assistive Device: None COMMUNITY RESOURCES/SUPPORTS: Primary Care Provider: Dilan Hernandez MD PCP Verified: Yes Specialists: Type of Home Health Services: None DME Provider: Pharmacy: [id number] - [place], [place] - [address] [facility] [address] [facility] [address] Home Health: Other: POST HOSPITAL TRANSITION PLAN: Anticipate dc home to self care when medically ready. Pt with supportive family who lives nearby and will assist as needed. Carie Stapleton RN [facility] [phone] 03/01/2020 * Dilan Mcnally MD - 03/01/2020 0800 EDT Surgery Progress Note Service Date: 03/01/2020 Admit Date: 02/29/2020 6:04 POD: 1 (02/29/2020) Procedure: Laparoscopic gastrojejunostomy (02/29/20) Chief Complaint: Gastric outlet syndrome 24 Hour Events: ?? OR for above Subjective/Objective Subjective Feels like she is returning to her baseline. Ambulated to bathroom overnight, voiding. No BM/flatus yet. Hopes to get NG tube out soon. Denies fevers/chills, CP/SOB, N/V. Objective Vital Signs Temp: [35.6 ??C (96.1 ??F)-36.4 ??C (97.5 ??F)] , Heart Rate: [59 BPM-81 BPM] , Pulse: [58-70] , Pulse From Oximetry: [59 BPM-76 BPM] , Resp: [11-22] , BP: (88-127)/(49-79) , SpO2: [94 %-100 %] Physical Exam General Appearance: alert, cooperative, no distress Lung: clear to auscultation bilaterally, non labored breathing Heart: regular rate and rhythm Abdomen: Soft, appropriately mildly tender to palpation; laparoscopic incisions C/D/I with Dermabond. NG in place with scant brown fluid in canister. Extremities: Warm and well perfused, no edema Skin: Skin color, temperature, turgor normal. No rashes or lesions Assessment/Plan Assessment 70 y.o. female with history of gastric outlet obstruction secondary to NSAID use and peptic ulceration/stenosis, now POD# 1 s/p laparoscopic gastrojejunostomy (02/29/20). Continues with NG decompression, appropriate post-operative convalescence. Plan Principal Problem: Gastric outlet obstruction HM IV; Tylenol [facility] for pain ctrl Home meds: escitalopram, pramipexole, ropinirole; PPI; albuterol, fluticasone inhalers Diet: NPO except meds Continue NGT low continuous wall suction, gentle flush PRN sumping OOB, AAT, encourage IS Wean off O2 PPX: SCDs; ambulate; enoxaparin hs 03/01/20 8:04 Dilan Mcnally MD, PGY-5 Surgery, [phone] * Kimberly Hatch - 03/01/2020 0609 EDT Surgery Daily Progress Note Patient: Mallorie Burgess Date of Service: 03/01/2020 Admit Date: 02/29/2020 POD: 1 Procedure: laparoscopic gastrojejunostomy CC: pyloric outlet obstruction, secondary to PUD 24 Hour Events: - Procedure completed, admitted to the floor. - NAEO Subjective: Doing well overall. Did not sleep well, but explains this is usual for her. She has pain with movement, but manageable under current regime. Reports flatus, no BM. Ice chips for comfort. Ambulating without light headedness to the bathroom. Voiding spontaneously without difficulty. Denies shortness of breath, N/V, F/C, or lower extremity pain. Reports mild chest pain when she has gas. Eager for rem oval of NGT. Plans to walk today with her . All positive ROS noted in subjective Objective: Temp: [35.6 ??C (96.1 ??F)-36.4 ??C (97.5 ??F)] Heart Rate: [59 BPM-81 BPM] Pulse: [58-70] Pulse From Oximetry: [59 BPM-76 BPM] Resp: [11-22] BP: (88-127)/(49-79) SpO2: [94 %-100 %] Exam: General Appearance: NAD. Alert, oriented, and cooperative. Lung: clear to auscultation bilaterally Heart: regular rate and rhythm, S1, S2 normal, no murmur, click, rub or gallop, regular rate and rhythm, S1, S2 normal, no murmur, rub or gallop Abdomen: Abdomen is soft, mildly distended, mildly tender to palpation. No rebound, guarding. Extremities: WWP, no edema. 2+ pedal pulses bilaterally. Skin: Skin color, temperature, turgor normal. No rashes or lesions Incision(s)/Wound(s): Laproscopic incision sites clean, dry, intact. Mild local erythema. No swelling. Drains: NGT with clear brown fluid Intake/Output Summary (Last 24 hours) at 03/01/2020 0936 Last data filed at 03/01/2020 0921 Gross per 24 hour Intake 2668.17 ml Output 3575 ml Net -906.83 ml I&O By Type - 3 Shifts Including Current In: 1430 [P.O.:77; I.V.:1323; NG/GT:30] Out: 2150 [Urine:975; Emesis/NG output:1175] Assessment: Active Hospital Problems Diagnosis ??? *Gastric outlet obstruction Priority: Medium Documented by EGD 12/2014 for [facility]. Mallorie Burgess is a 70 y.o. female with history of PUD and pyloric outlet obstruction now POD# 1 s/p laparoscopic gastrojejunosomy. She is stable and recovering well. Afeb VSS. Adeq UOP. Plan: Pain: Pain is currently well-controlled on current regimen of dilaudid q4 PRN, rectal tylenol 650 mg q4 PRN. CV: no current issues Resp: - Currently on NC, will work towards weaning off. Continue at home meds fluticasone and albuterol for COPD. - Incentive spirometer provided and use encouraged. GI: - Sips of clears and ice chips for comfort until removal of NGT, likely tomorrow morning 03/02 if output has decreased. Can then advance diet to clears. - Zofran 4 mg q4 PRN for nausea. : No current issues. Heme: DVT Prophylaxis: Ambulate, SCD's, Enoxaparin DVT prophylaxis 40mg starting this evening. FEN: plasmalyte mIVF 80ml/hr. ID: Afebrile and with no active issues. Home medications to continue: PPI, ropinirole, pramipexole, escitalopram. Disposition: pending NGT removal and diet progression to clears. Pain needs to be well controlled with PO medications. Will transition to full diet once home. Kimberly Hatch 03/01/2020 9:36 Pager #[phone] * Aravind Greenfield, RT - 02/29/2020 0085 EDT Images from the original note were not included. Respiratory Consult/Progress Note Indications for Respiratory therapy: Hx of COPD Data Vitals: Heart Rate: 59 BPM, Resp: 16, SpO2: 96 % FIO2/O2 Device: O2 Flow Rate (L/min): 2 l/min, , O2 Device: Nasal cannula, FIO2 %: 28 % RT Orders: Protocol Scoring: Bronchodilator/Inhalation Therapy Frequency Bronchodialator - Clinical Indications: Home regimen Breath Sounds: Any abnormal BS decreased Response: No change / no treatment Pulse: <100 Resp Rate: <18 SOB: None Total Score: 1 Airway Clearance Therapy Frequency Airway Clearance - Clinical Indications: No clinical indications Breath Sounds: Clear / diminished Sputum: Small (tsp) / None Consistency: None Cough Effort: Strong/ non-productive Color: None Total Score: 0 Hyperinflation Therapy Frequency Hyperinflation - Clinical Indications: No clinical indications Breath Sounds: Diminished / crackles Surgery: No X-Ray / Atelectasis: No O2 Requirements: 0-2 L above baseline Mobility Status: Mobile / at baseline Total: 3 Action/Events Respiratory events; PT is current 1 x PPD smoker who does wear home O2 nor CPAP/BiPAP. BS jose elias dim but CTA with nonproductive cough. Nursing to admin any MDI's. Response/Results Weaning and Toleration of treatments; 2 L/M RT [facility] 02/29/20 * Lauren Mock RN - 02/29/2020 1467 EDT Preop Covid DOS screening questionnaire Please document by exception (only check those that apply). Have you had any of the following symptoms recently? - No Yes Chronic ? Cough Shortness of breath or difficulty breathing Fever Chills Fatigue Muscle or body aches Severe Headache New loss of taste or smell Sore throat Congestion or runny nose Rash Nausea, vomiting, or diarrhea (rare in adults. More common in children) Were you covid tested? Yes If yes, have you self-isolated/quarantined since your test? - Yes See admission vital signs documentation for admission temperature. documented in this encounter H&P Notes * Dilan Mcnally MD - 02/29/2020 0717 EDT Division of General Surgery Date of Service: 02/29/20 PROBLEM: HISTORY OF PRESENT ILLNESS: This is a 70 y.o. female with a PMH of gastric outlet syndrome secondary to NSAID use and peptic ulceration. She had workup including upper endoscopy and biopsies negative for neoplasia. She underwent several dilations in the past but were largely unsuccessful in relieving her symptoms. An UGI showed high grade gastric outlet obstruction. She has agreed to move forward with a surgical bypass procedure. She otherwise feels well today. Social History Tobacco Use ??? Smoking status: Current Every Day Smoker Packs/day: 1.50 Years: 40.00 Pack years: 60.00 Types: Cigarettes ??? Smokeless tobacco: Current User ??? Tobacco comment: will cut down by using her Ecig - down to 1 pack a day Substance Use Topics ??? Alcohol use: Not on file Comment: very rarely Past Medical History: Diagnosis Date ??? Activity, other involving cardiorespiratory exercise Yard work, painting ??? Anemia slight anemic - takes iron ??? Cataracts, bilateral ??? Colon polyp ??? COPD (chronic obstructive pulmonary disease) ([facility]) inhalers 2 bid ??? Depression lexapro works well ??? Exercise involving housework ??? Exercise involving walking walks the dog .1 mile 3x week ??? Gastric outlet obstruction Documented by EGD 12/2014 for [facility]. ??? Generalized anxiety disorder lexapro works well ??? GERD (gastroesophageal reflux disease) Acid does comes up when she lay flat or stressed - about 1x week ??? High risk medications (not anticoagulants) long-term use Nonsteroidal anti-inflammatory drugs ??? History of general anesthesia ??? Lung disease ? ? Nausea & vomiting ??? Peptic ulcer disease 11/21/2019 Dr. Salgado note 11/21/19 -This likely is a pyloric outlet obstruction related to peptic ulcer disease. ??? Pyloric stenosis 01/19/2019 ??? Restless leg syndrome uses 2 meds ??? Tobacco abuse ??? Wears dentures full upper, partial lower Past Surgical History: Procedure Laterality Date ??? BLADDER SUSPENSION ??? COLONOSCOPY 04/2019 Negative colonic biopsies; port not available ??? OVARY REMOVAL 1979 ??? ALICIA AND BSO GA- antiemetic works well ??? TUBAL LIGATION ??? UPPER GASTROINTESTINAL ENDOSCOPY 12/2014 Pyloric channel stenosis; dilation to 15 mm; Helicobacter pylori negative dilatation total x7 ??? UPPER GASTROINTESTINAL ENDOSCOPY 01/2015 Pyloric channel stenosis; dilation to 15 mm; Helicobacter pylori negative ??? UPPER GASTROINTESTINAL ENDOSCOPY 05/2018 Report not available; Helicobacter pylori negative biopsies Current Facility-Administered Medications Medication Route Frequency ??? ceFAZolin (ANCEF) syringe 2 g intravenous PRE-OP ONCE ??? chlorhexidine gluconate 2 % cloth 1 Each topical PRE-OP MULTIPLE ??? lactated ringers (LR) infusion intravenous CONTINUOUS ??? lidocaine (PF) 10 mg/mL (1 %) injection 2 mg intradermal PRN No Known Allergies REVIEW OF SYSTEMS: A ten point review of systems was performed and all were negative except as listed per hpi. Patient Active Problem List Diagnosis ??? Gastric outlet obstruction ??? COPD (chronic obstructive pulmonary disease) ([facility]) ??? Tobacco abuse ??? Gastric outlet obstruction ??? Peptic ulcer disease OBJECTIVE: Vitals: 02/29/20 0642 BP: 112/72 BP Cuff Location: Right arm Pulse: 72 Resp: 18 Temp: 36.7 ??C (98.1 ??F) TempSrc: Oral SpO2: 95% Weight: 66.2 kg (145 lb 15.1 oz) Body mass index is 27.58 kg/m??. She is afebrile. General: No acute distress. HEENT: Normal. Neck: Supple. Skin: Normal. Lungs: Clear, bilaterally. Heart: Regular rate and rhythm. Abdomen: Soft, nondistended, nontender, no masses, no organomegaly. Vascular: Normal. Musculoskeletal: Normal. Neurologic: Normal. ASSESSMENT & PLAN: A 70 y.o. female with pyloric outlet obstruction related to peptic ulcer disease. She has had this biopsied by Dr Sullivan in [facility] for many years, always been benign. Dr Pepe thought that this area was also benign-appearing as there was no mucosal abnormality. This is likely related to previous heavy NSAID use, which she no longer does but I think there is enough scarring from previous peptic ulcer that now is causing a gastric outlet obstruction for her. A myotomy would not work here as this is mostly just scar tissue. She will need a bypass of this segment. A laparoscopic gastrojejunostomy was described to the patient with risks of infection, bleeding, anastomotic leak, and reflux gastritis. She verbalized understanding and agrees to proceed. All questions answered. 2g Ancef OR for above 02/29/20 7:18 Dilan Mcnally MD, PGY-5 Surgery, [phone] Cosigned by Hollis Salgado MD at 03/02/2020 16:58 EDT documented in this encounter OR Notes * OR Surgeon - Hollis Salgado MD - 02/29/2020 0604 EDT OPERATIVE REPORT SERVICE DATE: 02/29/2020 PREOPERATIVE DIAGNOSES: 1. Gastric outlet obstruction. 2. Peptic ulcer disease. POSTOPERATIVE DIAGNOSES: 1. Gastric outlet obstruction. 2. Peptic ulcer disease. PROCEDURE: Laparoscopic gastrojejunostomy. SURGEON: Hollis Salgado MD, FACS MORTARMAN: Dilan Mcnally MD ANESTHESIA: General endotracheal and local. ESTIMATED BLOOD LOSS: Minimal. FLUIDS: 800 mL of crystalloid. URINE OUTPUT: 150 mL DRAINS: None. COMPLICATIONS: None. INDICATIONS: This is a 70-year-old woman with a long history of peptic ulcer disease. She has developed a gastric outlet obstruction related to that. She has had multiple biopsies in the past, which showed only benign disease. This has been going on for at least a decade. She has never had a mucosal abnormality. Dilatations only work temporarily and she now presents for a gastrojejunostomy to bypass the segment. FINDINGS: Airtight anastomosis. Some scarring at the pylorus, but it was still mobile and there wasno external scar that was seen. NARRATIVE: The patient was taken to the operating room and placed supine on the operating table, identified as Mallorie Burgess. I was present for the entire case. After induction of general anesthesia, the abdomen was prepped and draped in the usual sterile fashion. A 10 mm incision was made at the umbilicus. A Veress needle was used to access the peritoneal cavity, which was insufflated to 14 mmHg using carbon dioxide. A 10 mm port was placed in this case, followed by a 10 mm 3D laparoscope used to examine the abdomen. We then placed a 5 mm and a 12 mm port on the right abdomen under direct vision and another 5 mm and 10 mm port in the left abdomen under direct vision. The transverse colon was lifted superiorly along with the omentum. We were able to see the ligament of Treitz. In a spot approximately 30 cm distal to the ligament of Treitz, we chose as the site for a gastrojejunostomy. A loop of jejunum was then brought up in an isoperistaltic fashion with the stomach along the greater curvature. We placed 2 stay sutures approximating the jejunum to the greater curvature of the stomach. An enterotomy was made in the antimesenteric side of the jejunum as well as along the greater curvature of the stomach anteriorly. A purple load of the Endo stapler was then passed in each limb andan anastomosis was then created. The first stapler was a 60 mm long stapler. To elongate the anastomosis, we then placed a 45 mm stapler with a limb in each side (jejunum and stomach) and elongated the anastomosis by firing the stapler again. The common enterotomy was then closed by offsetting the staple lines using stay sutures to pull up the stomach and jejunum including the mucosa on both sides. A purple load of the Endo stapler was then used to come across the common enterotomy and close it. That extra piece of bowel and stomach was placed in an EndoCatch bag and removed through the rightsided 12 mm port. The port was replaced. A clip was placed on the corner of the common enterotomy staple line and another spot that was bleeding. Crotch stitches of 3-0 Polysorb were then placed to reinforce the anastomosis. An endoscope was then passed. The anastomosis was inspected. It appeared wide open. The scope could pass into the efferent limb. There was no bleeding from the anastomosis. It appeared airtight. The stomach was then suctioned and the endoscope was removed. There was no tension on the anastomosis. Of note, the jejunal limb was antecolic. The bowels were inspected. There was no injury. The pneumoperitoneum was released. The ports were removed. The fascia at each 10 mm and12 mm port site was closed with an 0 Vicryl suture. Each wound was then irrigated and infiltrated with local anesthesia, and the skin at each site was then closed with subcuticular stitch of 4-0 Monocryl. Dermabond was used to cover each incision. Sponge, needle and instrument counts were correct at the end of the case. The patient was awoken from anesthesia, extubated and taken to the recovery room in stable condition. Unless otherwise noted, there were no complications, no blood loss, no cultures obtained, no specimens removed, and no drains retained. Hollis Salgado MD [facility] / AW Confirmation: [id number] Dictation ID: [id number] cc: Dilan Hernandez MD, [facility], [address] [place] [address], [address], [place] [address] Michael Sullivan MD, [facility], [address] [place] [id number] Dilan Mcnally MD, [facility], [address] [place] [id number] documented in this encounter Miscellaneous Notes * Plan of Care - Phu Stapletoniana - 03/03/2020 1023 EDT CM Discharge Note DISCHARGE DATE/TIME: 03/03/2020 DESTINATION: Home Transportation: Private vehicle ACCEPTING MD AND NUMBER: NA RN REPORT/UNIT: NA 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 IM notice given at discharge? Yes Carie Stapleton RN CCM [id number] * Plan of Care - Scott Covington RN - 03/03/2020 1004 EDT Problem: Daily Care Plan Goals Goal: Care Plan Documentation Flowsheets (Taken 03/03/2020 0850) Area of Focus: Discharge Plan Goal This Shift: dc today Note: Nursing Discharge Note D: Patient noted with discharge orders to: home. A: Prescriptions sent to pharmacy. Reviewed discharge instructions and prescriptions with Patient IV d/c'd. Belongings collected and sent home with patient. R: Patient verbalized understanding of discharge instructions and denied further questions. SCOTT COVINGTON RN 03/03/2020 10:02 * Plan of Care - Rocío Arredondo RN - 03/03/2020 0332 EDT Data: Pt POD 3 s/p lap jejunostomy. AAOx3, complains of 0-6/10 pain/abdominal cramps after jello. VSS on RA. Independently ambulating throughout unit. Voiding appropriately, (-) BM. IVF d/c'ed. Action: Scheduled & PRN administered. Clustered care + frequent rounds. Response: At time of note, patient ambulating in unit requesting PRN for pain. PAZ. ROCÍO ARREDONDO RN 03/03/2020 3:32 * Plan of Care - Anaya Dillon RN - 03/02/2020 1733 EDT Problem: Daily Care Plan Goals Goal: Care Plan Documentation Outcome: Met This Shift Flowsheets (Taken 03/02/2020 0846) Area of Focus: GI//Elimination Goal This Shift: pt will pass gas today Data: pod#2 lap gastrojejunostomy. High NGT output due to reflux of bowels. Pain well controlled. Ambulating independently. plasmaltye @ 80 ml. No reports of N/V. Action: Medicated for pain (see MAR). NGT removed. Diet advanced to clear liquids. Response: pt has passed flatus. Voiding. Tolerating clear liquid diet. Pt is very happy to rid of NGT. ANAYA DILLON RN 03/02/2020 17:34 * Plan of Care - Pat Baca RN - 03/01/2020 1959 EDT Data: POD# 1 s/p laparoscopic gastrojejunostomy. NGT intact and draining brown/green output. Action: Medications administered per MAR. See flowsheet for assessment details. Hourly checks completed. Response: Patient is resting at this time. Call cobb is within reach and patient is able to make needs known. * Plan of Care - Yareli Clayton RN - 03/01/2020 0421 EDT Data: s/p Lap Gastrojejunostomy pod1. NGT to suction Action: Patient denies pain/nausea Response: Patient is w/o complaint YARELI CLAYTON RN 03/01/2020 4:21 * Brief Op Note - Dilan Mcnally MD - 02/29/2020 1044 EDT Brief Op Note Date of Surgery: 02/29/2020 Surgeon: Hollis Salgado MD Assistants: Dilan Mcnally MD; Kimberly Hatch MS-III Pre-Op Diagnosis: Gastric outlet obstruction Post-Op Diagnosis: Same Procedure(s): Laparoscopic gastrojejunostomy Findings: Isoperistaltic gastrojejunostomy performed with stapled anastomosis. No bleeding noted onintraoperative endoscopy. Anesthesia Type: General Estimated Blood Loss: Unless otherwise noted, there was no blood loss, specimens removed, cultures obtained, or drains retained. The estimated blood loss was Minimal Fluids: Mallorie Burgess received Crystalloids 800 mL of fluid replacement. Urine Output: 150 mL Specimens/Cultures: None Drains/Packs: 16-Fr Nasogastric Tube inserted. Complications: None Disposition and Condition: Mallorie Burgess was sent to PACU in Stable condition. Plan: NPO, NGT Plasmalyte 80 cc/hr Johnson removed - DTV POC in 4 hrs 02/29/20 10:46 Dilan Mcnally MD, PGY-5 Surgery, [phone] documented in this encounter Plan of Treatment Scheduled Referrals Name Type Priority Associated Diagnoses Order Schedule PROVIDER FOLLOW-UP INSTRUCTIONS Outpatient Referral Routine Ordered: 03/02/2020 PROVIDER FOLLOW-UP INSTRUCTIONS Outpatient Referral Routine Ordered: 03/02/2020 PROVIDER FOLLOW-UP INSTRUCTIONS Outpatient Referral Routine Ordered: 03/02/2020 documented as of this encounter Procedures Procedure Name Priority Date/Time Associated Diagnosis Comments BUN Routine 03/03/2020 5:51 EDT CREATININE Routine 03/03/2020 5:51 EDT ELECTROLYTES Routine 03/03/2020 5:51 EDT COMPLETE BLOOD COUNT Routine 03/02/2020 8:24 EDT PHOSPHORUS Routine 03/02/2020 8:24 EDT MAGNESIUM Routine 03/02/2020 8:24 EDT CREATININE Routine 03/02/2020 8:24 EDT ELECTROLYTES Routine 03/02/2020 8:24 EDT GASTROJEJUNOSTOMY, WITHOUT VAGOTOMY 02/29/2020 7:22 EDT Gastric outlet obstruction documented in this encounter Results * CREATININE (03/03/2020 5:51 EDT) Creatinine 0.76 0.52 - 1.04 mg/dL 03/03/2020 7:24 EDT [facility] eGFR 81 >60 mL/min/1.7 3m2 03/03/2020 7:24 EDT [facility] Comment:eGFR calculated jeremias denney CKD-EPI equation for non- Americans. Multiply eGFR by 1.16 for patients. Blood VENOUS BLOOD / Unknown Venipuncture / Unknown 03/03/2020 5:51 EDT 03/03/2020 6:53 EDT Silva Alfaroia CROP CONSULTANT CHEMISTRY & BLOOD GAS ORDERAB LES Final Result Performing Organization Address City/Va Hospital/ZIP Co de Phone Number [facility] [address] [place] [address] * BUN (03/03/2020 5:51 EDT) BUN 20 10 - 26 mg/dL 03/03/2020 7:24 EDT [facility] Blood VENOUS BLOOD / Unknown Venipuncture / Unknown 03/03/2020 5:51 EDT 03/03/2020 6:53 EDT Silva Alfaroia CROP CONSULTANT CHEMISTRY & BLOOD GAS ORDERAB LES Final Result Performing Organization Address [facility] de Phone Number [facility] [address] [place] [address] * (ABNORMAL) ELECTROLYTES (03/03/2020 5:51 EDT) Sodium 137 136 - 145 mEq/L 03/03/2020 7:24 EDT [facility] Potassium 3.8 3.5 - 5.0 mEq/L 03/03/2020 7:24 EDT [facility] Chloride 94(L) 96 - 110 mEq/L 03/03/2020 7:24 EDT [facility] CO2 Total 31 22 - 32 mEq/L 03/03/2020 7:24 EDT [facility] Blood VENOUS BLOOD / Unknown Venipuncture / Unknown 03/03/2020 5:51 EDT 03/03/2020 6:53 EDT Silva N Mucia CROP CONSULTANT CHEMISTRY & BLOOD GAS ORDERAB LES Final Result Performing Organization Address City/Va Hospital/ZIP Co de Phone Number [facility] [address] [place] [address] * (ABNORMAL) COMPLETE BLOOD COUNT (03/02/2020 8:24 EDT) [facility] Signature WBC 9.39 4.00 - 12.40 K/cmm 03/02/2020 8:52 EDT [facility] RBC 4.02 3.86 - 5.04 M/cmm 03/02/2020 8:52 EDT [facility] Hemoglobin 12.2 11.6 - 15.2 gm/dL 03/02/2020 8:52 EDT [facility] HCT 36.1 34.9 - 44.4 % 03/02/2020 8:52 EDT [facility] MCV 90 81 - 98 fl 03/02/2020 8:52 EDT [facility] MCH 30.3 26.7 - 33.3 pg 03/02/2020 8:52 EDT [facility] MCHC 33.8 32.1 - 35.9 gm/dL 03/02/2020 8:52 EDT [facility] RDW-CV 14.6 <14.7 % 03/02/2020 8:52 EDT [facility] RDW-SD 48.4 <50.4 fl 03/02/2020 8:52 EDT [facility] PLT 301 141 - 377 K/cmm 03/02/2020 8:52 EDT [facility] MPV 9.2(L) 9.5 - 12.7 fl 03/02/2020 8:52 EDT [facility] Blood VENOUS BLOOD / Unknown Venipuncture / Unknown 03/02/2020 8:24 EDT 03/02/2020 8:43 EDT us Dwayne Neely MD HEMATOLOGY & PF4 ORDERABLES Fin al Result Performing Organization Address City/Va Hospital/ZIP Co de Phone Number [facility] [address] [place] [address] * CREATININE (03/02/2020 8:24 EDT) Creatinine 0.71 0.52 - 1.04 mg/dL 03/02/2020 10:06 EDT [facility] eGFR 88 >60 mL/min/1.7 3m2 03/02/2020 10:06 EDT [facility] Comment:eGFR calculated jeremias denney CKD-EPI equation for non- Americans. Multiply eGFR by 1.16 for patients. Blood VENOUS BLOOD / Unknown Venipuncture / Unknown 03/02/2020 8:24 EDT 03/02/2020 8:46 EDT us Dwayne Neely MD CHEMISTRY & BLOOD GAS ORDERABLE S Final Result [facility] [address] [place] [address] * PHOSPHORUS (03/02/2020 8:24 EDT) Phosphorus 3.7 2.5 - 4.5 mg/dL 03/02/2020 10:06 EDT [facility] Blood VENOUS BLOOD / Unknown Venipuncture / Unknown 03/02/2020 8:24 EDT 03/02/2020 8:46 EDT us Dwayne Neely MD CHEMISTRY & BLOOD GAS ORDERABLE S Final Result Performing Organization Address City/Va Hospital/ZIP Co de Phone Number [facility] [address] [place] [phone] * MAGNESIUM (03/02/2020 8:24 EDT) Magnesium 2.0 1.7 - 2.8 mg/dL 03/02/2020 10:06 EDT [facility] Blood VENOUS BLOOD / Unknown Venipuncture / Unknown 03/02/2020 8:24 EDT 03/02/2020 8:46 EDT us Dwayne Neely MD CHEMISTRY & BLOOD GAS ORDERABLE S Final Result [facility] [address] [place] [address] * (ABNORMAL) ELECTROLYTES (03/02/2020 8:24 EDT) Sodium 138 136 - 145 mEq/L 03/02/2020 10:06 EDT [facility] Potassium 3.7 3.5 - 5.0 mEq/L 03/02/2020 10:06 EDT [facility] Chloride 95(L) 96 - 110 mEq/L 03/02/2020 10:06 EDT [facility] CO2 Total 30 22 - 32 mEq/L 03/02/2020 10:06 EDT [facility] Blood VENOUS BLOOD / Unknown Venipuncture / Unknown 03/02/2020 8:24 EDT 03/02/2020 8:46 EDT us Dwayne Neely MD CHEMISTRY & BLOOD GAS ORDERABLE S Final Result [facility] [address] [place] [address] documented in this encounter Visit Diagnoses Diagnosis Gastric outlet obstruction- Primary Acquired hypertrophic pyloric stenosis documented in this encounter Admitting Diagnoses Diagnosis Gastric outlet obstruction Acquired hypertrophic pyloric stenosis documented in this encounter Administered Medications Inactive Administered Medications - up to 3 most recent administrations Medication Order MAR Action Action Date Dose Rate Site acetaminophen (OFIRMEV) IV solution 1,000 mg 1,000 mg, intravenous, NOW X1, 1 dose, On Thu02/29/20 at 1130, Is the patient NPO? If No, state reason why oral acetaminophen cannot be used in Comment field. Yes, Is this patient nothing by rectum? If No, state why rectal acetaminophen cannot be used in the Comment field. Yes, Are NSAIDs contraindicated in this patient? No, Is the patient in ED, PACU or ICU? Yes, Routine, Recovery (only) Given 02/29/2020 11:49 EDT 1,000 mg acetaminophen (TYLENOL) solution unit dose cup 650 mg 650 mg, oral, EVERY 4 HOURS PRN, Starting on Thu03/02/20 at 1340, Until 03/03/20 at 1223, Pain, Routine Given 03/03/2020 9:07 EDT 650 mg Given 03/03/2020 3:37 EDT 650 mg Given 03/02/2020 18:48 EDT 650 mg chlorhexidine gluconate 2 % cloth 1 Each 1 Each, topical, PRE-OP MULTIPLE, Starting on Thu02/29/20 at 0640, Until Thu02/29/20 at 1056, Other, Routine, Preprocedure Given 02/29/2020 7:21 EDT 1 Each electrolyte-A (PLASMALYTE-A) solution 80 mL/hr, intravenous, CONTINUOUS, Starting on Thu02/29/20 at 1215, Until Thu03/02/20 at 2036, Routine New Bag 03/02/2020 11:05 EDT 80 mL/hr 80 mL/hr Rate Documented 03/02/2020 7:09 EDT 80 mL/hr 80 mL/hr Rate Documented 03/01/2020 22:05 EDT 80 mL/hr 80 mL/hr enoxaparin (LOVENOX) injection 40 mg 40 mg, subcutaneous, AT BEDTIME, First dose on Carolyn 03/01/20 at 2100, Until Discontinued, Routine Given 03/02/2020 21:55 EDT 40 mg Given 03/01/2020 20:16 EDT 40 mg escitalopram oxalate (LEXAPRO) tablet 10 mg 10 mg, oral, DAILY, First dose on Carolyn 03/01/20 at 0900, Until Discontinued, Routine Given 03/03/2020 9:07 EDT 10 mg Given 03/02/2020 8:36 EDT 10 mg Given 03/01/2020 8:49 EDT 10 mg fentaNYL citrate (PF) injection 25-50 mcg 25-50 mcg, intravenous, EVERY 5 MIN PRN, Starting on Thu02/29/20 at 1034, Until Thu02/29/20 at 1301, Pain, Routine, Recovery (only) Given 02/29/2020 1 1:11 EDT 25 mcg fluticasone propionate (FLOVENT) 110 mcg/actuation inhaler 1 Puff 1 Puff, inhalation, 2 TIMES DAILY, First dose on Thu02/29/20 at 2100, Until Discontinued, Routine Given 03/03/2020 9:07 EDT 1 Puff Given 03/02/2020 21:55 EDT 1 Puff Given 03/02/2020 8:35 EDT 1 Puff HYDROmorphone (PF) (DILAUDID) 0.5 mg/0.5 mL syringe 0.2-0.4 mg 0.2-0.4 mg, intravenous, EVERY 4 HOURS PRN, Starting on Thu02/29/20 at 1301, Until Thu03/02/20 at 1339, Pain, Routine Given 03/02/2020 11:35 EDT 0.2 mg Given 03/02/2020 4:08 EDT 0.2 mg Given 03/01/2020 18:55 EDT 0.2 mg HYDROmorphone (PF) (DILAUDID) 0.5 mg/0.5 mL syringe 0.3-0.5 mg 0.3-0.5 mg, intravenous, EVERY 10 MINUTES PRN, Starting on Thu02/29/20 at 1034, Until Thu02/29/20 at 1301, Pain, Routine, Recovery (only) Given 02/29/2020 11:12 EDT 0.3 mg lactated ringers (LR) infusion 25 mL/hr, intravenous, CONTINUOUS, Starting on Thu02/29/20 at 0700, Until Thu02/29/20 at 1301, Routine, Preprocedure New Bag 02/29/2020 7:31 EDT New Bag 02/29/2020 7:21 EDT 25 mL/hr 25 mL/hr lactated ringers (LR) infusion at 75 mL/hr, intravenous, CONTINUOUS, Starting on Thu02/29/20 at 1100, Until Thu02/29/20 at 1443, Routine, Recovery (only) Rate Documented 02/29/2020 10:57 EDT 75 mL/hr lidocaine (PF) 10 mg/mL (1 %) injection 2 mg 2 mg, intradermal, PRN, 4 doses, Starting on Thu02/29/20 at 0640, Until Thu02/29/20 at 1056, peripheral intravenous catheter placement, Routine, Preprocedure Given 02/29/2020 7:29 EDT 2 mg oxyCODONE (ROXICODONE) solution 5 mg 5 mg, oral, EVERY 4 HOURS PRN, Starting on Thu03/02/20 at 1339, Until Thu03/03/20 at 1223, Pain, Routine Given 03/03/2020 3:37 EDT 5 mg Given 03/02/2020 18:48 EDT 5 mg pantoprazole (PROTONIX) injection 40 mg 40 mg, intravenous, DAILY, First dose on Carolyn 03/01/20 at 0945, Until Discontinued, Routine Given 03/03/2020 9:08 EDT 40 mg Given 03/02/2020 8:36 EDT 40 mg Given 03/01/2020 10:01 EDT 40 mg potassium chloride SA (K-DUR) tablet 20 mEq 20 mEq, oral, NOW X1, 1 dose, On Thu03/02/20 at 1645, Routine Given 03/02/2020 17:05 EDT 20 mEq pramipexole (MIRAPEX) tablet 1 mg 1 mg, oral, 2 TIMES DAILY, First dose on Carolyn 03/01/20 at 0900, Until Discontinued, Routine Given 03/03/2020 9:08 EDT 1 mg Given 03/02/2020 21:55 EDT 1 mg Given 03/02/2020 8:36 EDT 1 mg rOPINIRole (REQUIP) tablet 0.5 mg 0.5 mg, oral, 2 TIMES DAILY, First dose on Thu03/01/20 at 0900, Until Discontinued, Routine Given 03/03/2020 9:07 EDT 0. 5 mg Given 03/02/2020 21:55 EDT 0.5 mg Given 03/02/2020 8:36 EDT 0.5 mg documented in this encounter Active and Recently Administered Medications Times are shown in EDT. Scheduled Medication Order 03/01/2020 03/02/2020 03/03/2020 enoxaparin (LOVENOX) injection 40 mg 40 mg, subcutaneous, AT BEDTIME, First dose on Thu03/01/20 at 2100, Until Discontinued, Routine 2015 (Given - Provider: Pat Baca RN) 2154 (Given - Provider: Rocío Arredondo RN) escitalopram oxalate (LEXAPRO) tablet 10 mg 10 mg, oral, DAILY, First dose on Thu03/01/20 at 0900, Until Discontinued, Routine 0849 (Given - Provider: Uma Restrepo) 0836 (Given - Provider: Anaya Dillon, RUPA) 0907 (Given - Provider: Scott Covington RN) fluticasone propionate (FLOVENT) 110 mcg/actuation inhaler 1 Puff 1 Puff, inhalation, 2 TIMES DAILY, First dose on Thu02/29/20 at 2100, Until Discontinued, Routine 0850 (Given - Provider: Uma Restrepo)2014 (Given - Provider: Pat Baca RN) 0835 (Given - Provider: Anaya Dillon, RN)2154 (Given - Provider: Rocío Arredondo, RUPA) 09 (Given - Provider: Scott Covington, RUPA) pantoprazole (PROTONIX) injection 40 mg 40 mg, intravenous, DAILY, First dose on Carolyn 03/01/20 at 0945, Until Discontinued, Routine 1001 (Given - Provider: Anaya Dillon RN) 0836 (Given - Provider: Anaya Dillon, RUPA) 0908 (Given - Provider: Scott Covington, RN) potassium chloride SA (K-DUR) tablet 20 mEq (COMPLETED) 20 mEq, oral, NOW X1, 1 dose, On Thu03/02/20 at 1645, Routine 1705 (Given - Provider: Anaya Dillon, RUPA) pramipexole (MIRAPEX) tablet 1 mg 1 mg, oral, 2 TIMES DAILY, First dose on Thu03/01/20 at 0900, Until Discontinued, Routine 0850 (Given - Provider: Uma Restrepo)2014 (Given - Provider: Pat Baca RN) 0836 (Given - Provider: Anaya Dillon, RUPA)2154 (Given - Provider: Rocío Arredodno, RUPA) 0908 (Given - Provider: Scott Covington, RUPA) rOPINIRole (REQUIP) tablet 0.5 mg 0.5 mg, oral, 2 TIMES DAILY, First dose on Carolyn 03/01/20 at 0900, Until Discontinued, Routine 0850 (Given - Provider: Uma Restrepo)2014 (Given - Provider: Pat Baca RN) 0836 (Given - Provider: Anaya Dillon, RUPA)2154 (Given - Provider: oRcío Arredondo, RUPA) 09 (Given - Provider: Scott Covington, RN) Continuous Medication Order 03/01/2020 03/02/2020 03/03/2020 electrolyte-A (PLASMALYTE-A) solution (CANCELED) 80 mL/hr, intravenous, CONTINUOUS, Starting on Thu02/29/20 at 1215, Until Thu03/02/20 at 2036, Routine 0710 (Rate Documented - Provider: Anaya Dillon RN)1258 (New Bag - Provider: Anaya Dillon RN)1600 (Rate Documented - Provider: Pat Baca RN)1800 (Rate Documented - Provider: Pat Baca RN)2205 (Rate Documented - Provider: Pat Baca RN) 0709 (Rate Documented - Provider: Anaya Dillon RN)1105 (New Bag - Provider: Anaya Dillon RN) PRN Medication Order 03/01/2020 03/02/2020 03/03/2020 acetaminophen (TYLENOL) solution unit dose cup 650 mg 650 mg, oral, EVERY 4 HOURS PRN, Starting on Thu03/02/20 at 1340, Until 03/03/20 at 1223, Pain, Routine 1848 (Given - Provider: Anaya Dillon RN) 0337 (Given - Provider: Rocío Arredondo RN)0907 (Given - Provider: Scott Covington RN) albuterol inhaler 90 mcg 90 mcg (1 Puff), inhalation, EVERY 4 HOURS PRN, Starting on Thu02/29/20 at 1301, Until 03/03/20 at 1223, Wheezing, Routine HYDROmorphone (PF) (DILAUDID) 0.5 mg/0.5 mL syringe 0.2-0.4 mg (CANCELED) 0.2-0.4 mg, intravenous, EVERY 4 HOURS PRN, Starting on Thu02/29/20 at 1301, Until Thu03/02/20 at 1339, Pain, Routine 0912 (Given - Provider: Uma Restrepo - Comment: given in preperation of walking)1313 (Given - Provider: Anaya Dillon RN)1855 (Given - Provider: Pat Baca RN) 0408 (Given - Provider: Juanito Abdi, RUPA)1135 (Given - Provider: Anaya Dillon, RUPA) ondansetron (PF) (ZOFRAN) injection 4 mg 4 mg, intravenous, EVERY 4 HOURS PRN, Starting on Thu02/29/20 at 1301, Until 03/03/20 at 1223, Nausea, Routine oxyCODONE (ROXICODONE) solution 5 mg 5 mg, oral, EVERY 4 HOURS PRN, Starting on Thu03/02/20 at 1339, Until 03/03/20 at 1223, Pain, Routine 1848 (Given - Provider: Anaya Dillon, RN) 0337 (Given - Provider: Rocío Arredondo, RUPA) documented in this encounter Orders Medications Ordered That Pravin ht Not Have Been Administered Count Last Ordered Date First Ordered Date acetaminophen (TYLENOL) suppository 650 mg 1 02/29/2020 albuterol inhaler 90 mcg 1 02/29/2020 atropine 0.1 mg/mL syringe 0.5 mg 1 020 bupivacaine (PF) (MARCAINE) 0.5% injection 1 02/29/2020 ceFAZolin (ANCEF) syringe 2 g 1 02/29/2020 diphenhydrAMINE (BENADRYL) i njection 12.5 mg 1 02/29/2020 naloxone (NARCAN) injection 0.2 mg 1 2019 ondansetron (PF) (ZOFRAN) injection 4 mg 2 02/29/2020 pantoprazole (PROTONIX) tablet 40 mg 1 02/07 sodium chloride 0.9 % irrigation 1 02/29/20 20 Diet Count Last Ordered Date First Orde red Date DISCHARGE DIET 1 03/02/2020 Nursing Count Last Ordered Date First Orde red Date ACTIVITY INSTRUCTIONS 1 03/02/2020 BATHING INSTRUCTIONS 1 03/02/2020 DRIVING INSTRUCTIONS 1 03/02/2020 WOUND CARE INSTRUCTIONS 1 03/02/2020 Admission Count Last Ordered Date First Orde red Date ADMIT TO INPATIENT 1 02/29/2020 Transfer Count Last Ordered Date First Orde red Date TEACHING SERVICE 1 02/29/2020 Discharge Count Last Ordered Date First Orde red Date DISCHARGE PATIENT 1 03/03/2020 documented in this encounter Care Teams Water Meter Mechanic Relationship Specialty Start Date End Date Dilan Hernandez MD [address] [place] [address],[address] [place] [address] PCP - General 07/28/19 documented as of this encounter
--- OUTSIDE RECORDS SUMMARY | 2024-07-07 20:09 | XMS_ITS | Encounter Summary ---
Author Organization [facility] Address [address] [place] [address] Care Team Providers Care Dial Mounter Name Role Phone Dilan Hernandez MD Primary Care Provider [phone] Reason for Visit * Reason Onset Date Comments Other 03/26/2020 Encounter Details Date Type Department Care Team (Late st Contact Info) Description 03/26/2020 Telephone [facility] General Surgery - [facility] [address], [place] [id number] Hollis Salgado MD [address] [facility], [address] [place] [address] Other Social History Tobacco Use Types Packs/Day Years [...] Answer Entry Date Author No 02/29/2020 14:00 Kritsen Arriaga RN documented in this encounter Miscellaneous Notes * Telephone Encounter - Veronica Coulter RN - 03/26/2020 1024 EDT Mallorie is calling complaining of back pain. She states that she had lower back pain prior to her surgery, but a week post op she noticed her pain worsening. She describes it as reaching across her entire lower back. She takes Tylenol, which is not helping. She does find heat somewhat helpful. Explained that this pain is likely musculoskeletal exacerbated by compensating post abdominal surgery. She has made her PCP aware of this and will discuss further at her post op with Dr. Salgado. She alsowonders if she can go into her jacuzzi tub. She will wait until her incisions are checked on prior to using. * Telephone Encounter - Yola Vanegas - 03/26/2020 0896 EDT Pt states she is having back pain, and wants to know if it is caused by her surgery/ Please call documented in this encounter Plan of Treatment Not on file documented as of this encounter Visit Diagnoses Not on filedocumented in this encounter Care Teams Dial Mounter Relationship Specialty Start Date End Date Dilan Hernandez MD [address] [place] [address],[address] [place] [address] PCP - General 07/28/19 documented as of this encounter
--- OUTSIDE RECORDS SUMMARY | 2024-07-07 20:09 | XMS_ITS | Encounter Summary ---
Author Organization [facility] Address [address] [place] [address] Care Team Providers Care Wet Pour Supervisor Name Role Phone Dilan Hernandez MD Primary Care Provider [phone] Reason for Visit * Reason Onset Date Comments Results 02/26/2023 Encounter Details Date Type Department Care Team (Late st Contact Info) Description 02/26/2023 Telephone [facility] Pulmonology & Critical Care - [facility] [address] [place], [place] [id number] Unknown, Provider, Results Social History Tobacco Use Types Packs/Day Years [...] Date of Assessment Author No 12/02/2022 14:55 EDT Kristen Dillon RN documented as of this encounter Mental Status * Because of a physical, mental, or emotional condition, does this person have serious difficulty concentrating, remembering, or making decisions? Answer Entry Date Author No 12/02/2022 14:55 EDT Kristen Dillon RN documented in this encounter Miscellaneous Notes * Telephone Encounter - Ro Bower RN - 02/26/2023 0943 EDT Faxed PFT results as requested. * Telephone Encounter - Danielle Gordon - 02/26/2023 0935 EDT Juan from sleep clinic at [facility] asking to have PFT results faxed to them at [phone] documented in this encounter Plan of Treatment Not on file documented as of this encounter Visit Diagnoses Not on filedocumented in this encounter Care Teams Wet Pour Supervisor Relationship Specialty Start Date End Date Dilan Hernandez MD [address] [place] [address],[address] [place] [phone] PCP - General 07/28/19 documented as of this encounter
--- OUTSIDE RECORDS SUMMARY | 2024-07-07 20:09 | XMS_ITS | Clinical Summary ---
Author Organization [facility] Address [address] [place] [address] Care Team Providers Care Wing Commander Name Role Phone Dilan Hernandez MD Primary Care Provider [phone] Allergies No known active allergies Medications albuterol [...] obstruction 07/28/2019 COPD (chronic obstructive pulmonary disease) ([facility]) Tobacco abuse Gastric outlet obstruction Overview (08/09/2019): Documented by EGD 12/2014 for [facility]. Peptic ulcer disease Surgical History Surgery Date Site/Laterality Comments UPPER GASTROINTESTINAL ENDOSCOPY 12/06/2014 - 01/05/2015 Pyloric channel stenosis; dilation to 15 mm; Helicobacter pylori negative dilatation total x7 UPPER GASTROINTESTINAL ENDOSCOPY 01/06/2015 - 02/05/2015 Pyloric channel stenosis; dilation to 15 mm; Helicobacter pylori negative UPPER GASTROINTESTINAL ENDOSCOPY 05/08/2018 - 06/07/2018 Report not available; Helicobacter pylori negative biopsies COLONOSCOPY 04/08/2019 - 05/07/2019 Negative colonic biopsies; port not available ALICIA AND BSO GA- antiemetic works well BLADDER SUSPENSION TUBAL LIGATION OVARY REMOVAL 06/08/1979 - 06/07/1980 Medical History Medical History Date Comments Tobacco abuse Gastric outlet obstruction Docum ented by EGD 12/2014 for [facility]. Peptic ulcer disease 11/21/2019 Dr. Alcazar o note 11/21/19 -This likely is a pyloric outlet obstruction related to peptic ulcer disease. Cataracts, bilateral High risk medications (not anticoagulants) long-term use Nonsteroidal anti-inflam matory drugs Lung disease Colon polyp Pyloric stenosis 01/19/2019 Wears dentures full upper, part ial lower Nausea & vomiting History of general anesthesia Exercise involving housework Activity, other involving cardiorespiratory exercise Yard work, painting Exercise involving walking walks the dog .1 mile 3x week COPD (chronic obstructive pu lmonary disease) ([facility]) inhalers 2 bid GERD (gastroesophageal reflux disease) Acid does comes up when she lay flat or stressed - about 1x week Anemia slight anemic - takes iron Restless leg syndrome uses 2 med s Generalized anxiety disorder michelle apro works well Depression lexapro works we ll Family History Medical History Relation Comments Lung Cancer Father Colon Cancer Mother Kidney Cancer Sister Esophageal Cancer Neg Hx Pancreatic Cancer Neg Hx Rectal Cancer Neg Hx Stomach Cancer Neg Hx Relation Status Comments Father Mother Sister Alive Social History Tobacco Use Types Packs/Day Years [...] Sexual Orientation Asexual 03/25/2020 22 :02 EDT Obstetrics History Last Filed Vital Signs Vital Sign Reading Time Taken Comments Blood Pressure 137/77 12/03/2023 1812 EDT Pulse 92 12/03/2023 1812 EDT Temperature 36.7 ??C (98.1 ??F) 12/03/2023 1812 EDT Respiratory Rate 26 12/03/2023 1812 EDT Oxygen Saturation 94% 12/03/2023 1812 EDT Inhaled Oxygen Concentration - - Weight 81.6 kg (180 lb) 12/03/2023 1812 EDT Height 154.9 cm (5' 1) 12/03/2023 1812 EDT Body Mass Index 34.01 12/03/2023 1812 EDT Plan of Treatment Health Maintenance Due Date Last Done Comments Copd Action Plan 1950 Lung Cancer Screening 1950 RSV Immunization ( o r 60+ Years) (1 - Risk 60-74 years 1-dose series) 2012 Fall Risk Screening 02/24/2017 COVID-19 Vaccine ( season) 02/07/202405/2021, 08/21/2020 Lung Function Test (Spirometry) Completed Hepatitis C Screen Completed 07/24/2023 Procedures Procedure Name Priority Date/Time Associated Diagnosis Comments HCV RNA DETECT QUANT Routine 07/24/2023 13:25 EST PULMONARY FUNCTION TESTING Routine 02/18/2023 10:50 EDT SOB (shortness of breath) from Last 3 Months or Most Recently Relevant to Health Maintenance Results * HCV RNA DETECT QUANT (07/24/2023 13:25 EST) HCV RNA Qualitative Undetected Undetected 07/27/2023 13:09 EST [facility] Blood VENOUS BLOOD / Unknown 07/24/2023 13:25 EST 07/24/2023 21:17 EST Narrative [facility] - 07/27/2023 13:09 EST The quantification range of this assay is 15 IU/mL to 100,000,000 IU/mL. Testing was performed using the Valery HCV test ([employer] with the valery 6800 System. us Provider Outr Resulting Lab CHEMISTRY & BLOOD GA S ORDERABLES Final Result Performing Organization Address City/[facility]/ZIP Co de Phone Number [facility] [address] [place] [id number] * PULMONARY FUNCTION TESTING (02/18/2023 10:50 EDT) 02/18/2023 10:5 0 EDT us Brandon Traylor MD PFT ORDERABLES Final Result [facility] PFT from Last 3 Months or Most Recently Relevant to Health Maintenance [place] [address] [place] [address] MEDICARE Advance Directives For more information, please contact: [phone] * Full Code (Latest Code Status on File) Date Activated Date Inactivated Comments 02/29/2020 6:42 02/29/2020 13:01 Question Answer Comments Reason for decision includes: Full code consistent with overall plan of care Who participated in the discussion? Not Discusse d Care Teams Wing Commander Relationship Specialty Start Date End Date Dilan Hernandez MD [address] [place] [address],[address] [place] [address] [facility] - General 07/28/19
--- OUTSIDE RECORDS SUMMARY | 2024-07-07 20:09 | XMS_ITS | Encounter Summary ---
[place] [address] Care Team Providers Care Textile Conversion Manager Name Role Phone Eleanor Hernandez MD Primary Care Provider [phone] Reason for Visit * Reason Comments GI Problem Encounter Details Date Type Department Care Team (Late st Contact Info) Description 03/22/2015 10:00 AM EDT Office Visit [place] [address] Kat Patel MD Pyloric stenosis Social History Tobacco Use Types Packs/Day Years Used Date Smoking Tobacco: Never Assessed Sex and Gender Information Value Date Recorded Sex Assigned at Not on file Gender Identity Not on file Sexual Orientation Straight 09/21/2020 3: 34 PM EDT documented as of this encounter Last Filed Vital Signs Vital Sign Reading Time Taken Comments Blood Pressure 122/71 03/22/2015 9:49 AM EDT Pulse 69 03/22/2015 9:49 AM EDT Temperature - - Respiratory Rate - - Oxygen Saturation - - Inhaled Oxygen Concentration - - Weight 63 kg (139 lb) 03/22/2015 9:49 AM EDT Height 154.9 cm (5' 1) 03/22/2015 9:49 AM EDT Body Mass Index 26.26 03/22/2015 9:49 AM EDT documented in this encounter Progress Notes * Kat Patel MD - 03/22/2015 9:52 AM EDT [facility] Section of Gastroenterology and Hepatology Outpatient Consultation Reason for Visit: benign recurrent pyloric stenosis Referred by Eleanor Hernandez Dr. Sisson (surgery) History of Present Illness: Mallorie Burgess is a 65 y.o. female, past medical history significant of peptic ulcer disease, COPD, family hx of colon cancer, hysterectomy, active heavy tobaccouse, who presents for opinion regarding management of persistent benign pyloric stenosis. Per patient, recalls in 2008 noted vomiting, stomach bloating post prandially, and severe reflux symptoms. Underwent CT scan which revealed a distended stomach, subsequent EGD with 3-4 mm pyloric opening stenosis, benign appearing with esophagitis. S/p dilation with improvement in symptoms.Noted recurrent symptoms over past several months. Underwent two EGD's (12/20, 01/20) unable to pass gastroscope, s/p 15 mm dilation. Biopsies taken of pyloric channel with no indication of malignancy. H pylorinegative. S/p dilation, reports mild symptoms, notes improvement. Only if she eats a large amount, will feel bloated. Denies dysphagia, reflux symptoms currently. On Omeprazole daily. Eats an averageof 2 meals, medium sized meals. Avoids spicy foods. Smaller meals are better. Weight stable. Excedrin occasionally, twice a week, remote hx of heavy NSAID use. Denies other NSAID use currently. Taking Omeprazole daily. 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 traMADol (ULTRAM) 50 mg tablet ??? piroxicam (FELDENE) 10 mg capsule ??? FLUTICASONE/SALMETEROL (ADVAIR HFA INHL) ??? tiotropium (SPIRIVA WITH HANDIHALER) 18 mcg inhalation capsule ??? omeprazole (PRILOSEC) 40 mg capsule No current facility-administered medications for this visit. No Known Allergies Physical Examination: Ht 154.9 cm (5' 1) Wt 63.05 kg (139 lb) BMI 26.28 kg/m2 General:Pleasant, cooperative, NAD, WN/WD HEENT: NC/AT, PERRL, anicteric sclera, MMM, no erythema or exudate Neck: soft, supple, no cervical LAD Chest: CTA bilaterally, no wheeze, rale or rhonchi CVS: Regular rate and rhythm, normal s1/s2, no murmur, rub or gallop ABD: soft, non-tender, non-distended, normal active bowel sounds. No hepatosplenomegaly appreciated Extremities: Warm and well perfused. No clubbing, cynanosis or edema Skin:No rash or lesion Neuro: AAOx3, Grossly non-focal. IMPRESSION: Mallorie Burgess is a 65 y.o. female, past medical history significant of peptic ulcer disease, COPD, family hx of colon cancer, hysterectomy, active heavy tobacco use, who presents for opinion regarding management of persistent benign pyloric stenosis despite endoscopic pyloric balloon dilation (15 mm). Remote hx of heavy NSAID use, denies alarming symptoms today. H pylori negative, pyloric channel biopsies negative for malignancy, reports mention of benign appearing stenosis. We had a lengthy discussion today of work up thus far, symptoms, and management of a benign pyloricstenosis which was likely 2/2 NSAID use in past. We discussed given persistent stenosis despite endoscopic dilation, surgery should be entertained if symptoms recur. Likely due to distended stomach, functional dysmotility may be playing a minor role in overall symptoms. Recommendations as outlined below: RECOMMENDATIONS: -small meals encouraged, avoid eating 3 hours before sleeping -avoid NSAIDs -discussed obtaining small bowel follow through if symptoms recur with timed transit to assess stomach and small bowel clearance as well as distal stenosis -highly encouraged smoking cessation, as she will likely need surgical revision of her persistent pyloric stenosis -continue Omeprazole daily (1/2 hour before breakfast) I have answered all of Mallorie's questions today, she was happy with plan as outlined. Should she have any concerns or questions she is aware to contact me at anytime. She would like to see Dr. Sullivanregarding surgical management if her symptoms recur. Kat Patel MD [place] [address] P: [phone] F: [phone] CC ELEANOR HERNANDEZ MD (General) [address] [place] [address] [place] [address] Eleanor Hernandez MD [address] [place] [address] [place] [id number] documented in this encounter Plan of Treatment Upcoming Encounters Date Type Department Care Team (Late st Contact Info) Description 07/12/2024 8:00 AM [facility] Hospital Encounter XRay at [address] [place] [address] [place] [address] Scheduled Procedures Name Priority Associated Diagnoses Date/Ti me INJECTION, FACET JOINT, W\FLUORO, LUMBAR, 2ND LEVEL (WRVU 1) Spondylosis of lumbar region without myelopathy or radiculopathy INJECTION, FACET JOINT, W\FLUORO, LUMBAR, SINGLE (WRVU 1.52) Spondylosis of lumbar region without myelopathy or radiculopathy documented as of this encounter Visit Diagnoses Diagnosis Pyloric stenosis Acquired hypertrophic pyloric stenosis documented in this encounter Care Teams Textile Conversion Manager Relationship Specialty Start Date End Date Eleanor Hernandez MD [address] [place] [address] [place] [id number] PCP - General 04/30/10 documented as of this encounter
--- OUTSIDE RECORDS SUMMARY | 2024-07-07 20:09 | XMS_ITS | Encounter Summary ---
Author Organization [facility] Address [address] [place] [address] Care Team Providers Care Food Safety Field Specialist Name Role Phone Dilan Hernandez MD Primary Care Provider [phone] Reason for Referral * Radiology Services (Routine/Next Available) - Authorization Not Required Specialty Diagnoses / Procedures Referred By Contac t Referred To Contact Diagnoses Lumbar radiculopathy Procedures XR LUMBAR SPINE 4+ VIEWS Aster Whiteside NP Phone: tel: fax: [facility] Referral ID Status Reason Start Date Expiration Date Visits Requested Visits Authorized [id number] Authorization Not Required 10/31/2022 1 1 Reason for Visit * Radiology Services (Routine/Next Available) - Authorization Not Required Specialty Diagnoses / Procedures Referred By Contac t Referred To Contact Diagnoses Lumbar radiculopathy Procedures XR LUMBAR SPINE 4+ VIEWS Aster Whiteside NP Phone: tel: fax: [facility] Referral ID Status Reason Start Date Expiration Date Visits Requested Visits Authorized [id number] Authorization Not Required 10/31/2022 1 1 Encounter Details Date Type Department Care Team (Latest Contact Info) Description 12/02/2022 13:12 EDT - 12/02/2022 23:59 EDT Hospital Encounter [facility] [address] [place], [place] [id number] Lumbar radiculopathy Discharge Disposition: Home or Self Care Social [...] Date of Assessment Author No 02/29/2020 14:00 EDKritsen Boles RN * Because of a physical, mental, or emotional condition, does this person have difficulty doing errands alone such as visiting a doctor's office or shopping? Answer Date of Assessment Author No 12/02/2022 14:55 Kristen Arriaga RN documented as of this encounter Mental Status * Because of a physical, mental, or emotional condition, does this person have serious difficulty concentrating, remembering, or making decisions? Answer Entry Date Author No 12/02/2022 14:55 Kristen Arriaga RN documented in this encounter [...] Name Priority Date/Time Associated Diagnosis Comments XR LUMBAR SPINE 4+ VIEWS Routine 12/02/2022 13:33 EDT Lumbar radiculopathy documented in this encounter Results * XR LUMBAR SPINE 4+ VIEWS (12/02/2022 13:33 EDT) Anatomical Region Laterality Modality Computed Radiogr aphy 12/03/2022 6:14 EDT Impressions 12/03/2022 6:14 EDT Degenerative changes and malalignment with slight dynamic motion at L3-L4. Transitional lumbosacral anatomy, as above. [id number] Narrative 12/03/2022 6:14 EDT LUMBAR SPINE, 4 [...] motion atL3-L4. Transitional lumbosacral anatomy, as above. [id number] us Aster Whiteside NP IMG DIAGNOSTIC IMAGING ORDERABLES Final Result documented in this encounter Visit Diagnoses Diagnosis Lumbar radiculopathy Thoracic or lumbosacral neuritis or radiculitis, unspecified documented in this encounter Care Teams Food Safety Field Specialist Relationship Specialty Start Date End Date Dilan Hernandez MD [address] [place] [address] ,[address] [place] [phone] PCP - General 07/28/19 documented as of this encounter
--- OUTSIDE RECORDS SUMMARY | 2024-07-07 20:09 | XMS_ITS | Encounter Summary ---
Author Organization [facility] Address [address] [place] [address] Care Team Providers Care Residential Door Unit Installer Name Role Phone Dilan Hernandez MD Primary Care Provider [phone] Reason for Referral * Test (Routine/Next Available) - Authorization Not Required Specialty Diagnoses / Procedures [facility]erred To Contact Diagnoses SOB (shortness of breath) Procedures PULMONARY FUNCTION TESTING Brandon Traylor MD Phone: tel: fax: Referral ID Status Reason Start Date Expiration Date Visits Requested Visits Authorized [id number] Authorization Not Required 11/13/2022 1 1 Encounter Details Date Type Department Care Team (Late st Contact Info) Description 11/13/2022 Orders Only [facility] Pulmonology & Critical Care - Main [place] [address] [place], [place] [address] Dilan Hernandez MD [address] [place] [address],[address] [place] [address] SOB (shortness of breath) (Primary Dx) Social History Tobacco Use Types [...] Author No 02/29/2020 14:00 EDKristen Boles RN documented as of this encounter Mental Status * Because of a physical, mental, or emotional condition, do you have serious difficulty concentrating, remembering, or making decisions? (5 years old or older) Answer Entry Date Author No 02/29/2020 14:00 Kristen Arriaga RN documented in this encounter Plan of Treatment Not on file documented as of this encounter Results * PULMONARY FUNCTION TESTING (02/18/2023 10:50 EDT) 02/18/2023 10:5 0 EDT Brandon Traylor MD PFT ORDERABLES Final Result [facility] PFT documented in this encounter Visit Diagnoses Diagnosis SOB (shortness of breath)- Primary Shortness of breath documented in this encounter Care Teams Residential Door Unit Installer Relationship Specialty Start Date End Date Dilan Hernandez MD [address] [place] [address],[address] [place] [address] PCP - General 07/28/19 documented as of this encounter
--- OUTSIDE RECORDS SUMMARY | 2024-07-07 20:09 | XMS_ITS | Encounter Summary ---
Author Organization [facility] Address [address] [place] [address] Care Team Providers Care Tutor Name Role Phone Dilan Hernandez MD Primary Care Provider [phone] Reason for Visit * (Routine/Next Available) - Receiving Office to Obtain Authorization Specialty Diagnoses / Procedures Referred By Contac t Referred To Contact Procedures MR OUTSIDE IMAGES LUMBAR SPINE Unknown, Provider, MD Referral ID Status Reason Start Date Expiration Date Visits Requested Visits Authorized [id number] Receiving Office to Obtain Authorization 10/30/2022 1 1 Encounter Details Date Type Department Care Team (Latest Contact Info) Description 10/22/2022 - 10/22/2022 23:59 EDT Hospital Encounter [facility] Secondary Reads [place] Discharge Disposition: Home or [...] Procedure Name Priority Date/Time Associated Diagnosis Comments MR OUTSIDE IMAGES LUMBAR SPINE Routine 10/22/2022 19:00 EDT documented in this encounter Results * MR OUTSIDE IMAGES LUMBAR SPINE (10/22/2022 19:00 EDT) Narrative 10/30/2022 19:00 EDT This is a non-reportable exam. us Provider Unknown IMMary OTHER IMAGING ORDERABLES Final Result documented in this encounter Visit Diagnoses Not on filedocumented in this encounter Care Teams Tutor Relationship Specialty Start Date End Date Dilan Hernandez MD [address] [place] [address],[address] [place] [phone] PCP - General 07/28/19 documented as of this encounter
--- OUTSIDE RECORDS SUMMARY | 2024-07-07 20:09 | XMS_ITS | Encounter Summary ---
Author Organization [facility] Address [address] [place] [address] Care Team Providers Care Family Intervention Specialist Name Role Phone Dilan Hernandez MD Primary Care Provider [phone] Encounter Details Date Type Department Care Team (Latest Contact Info) Description 12/03/2023 Travel Social History Tobacco Use Types Packs/Day [...] Kristen Dillon RN documented in this encounter Plan of Treatment Not on file documented as of this encounter Visit Diagnoses Not on filedocumented in this encounter Additional Health Concerns Infection Onset Date Last Indicated Resolved Time R/O COVID-19 12/03/2023 12/03/2023 12/03/2023 19:0 4 EDT documented as of this encounter Care Teams Family Intervention Specialist Relationship Specialty Start Date End Date Dilan Hernandez MD [address] [place] [address],[address] [place] [address] PCP - General 07/28/19 documented as of this encounter
--- OUTSIDE RECORDS SUMMARY | 2024-07-07 20:09 | XMS_ITS | Encounter Summary ---
Author Organization [facility] Address [address] [place] [address] Care Team Providers Care Gold Plater Name Role Phone Dilan Hernandez MD Primary Care Provider [phone] Encounter Details Date Type Department Care Team (Latest Contact Info) Description 06/15/2020 Travel Social History Tobacco Use Types Packs/Day [...] on filedocumented in this encounter Care Teams Gold Plater Relationship Specialty Start Date End Date Dilan Hernandez MD [address] [place] [address],[address] [place] [address] PCP - General 07/28/19 documented as of this encounter
--- OUTSIDE RECORDS SUMMARY | 2024-07-07 20:09 | XMS_ITS | Encounter Summary ---
Author Organization [facility] [place] [address] Care Team Providers Care Smelter Charger Name Role Phone Dilan Hernandez MD Primary Care Provider [phone] Encounter Details Date Type Department Care Team (Late st Contact Info) Description 02/06/2019 Ancillary Procedure Radiology Library at [facility] [place] [address] Dilan Hernandez MD [address] [place] [phone] Social History Tobacco Use Types Packs/Day [...] Contact Info) Description 07/12/2024 8:00 AM [facility] Hospital Encounter XRay at [address] [place] [address] Eliane Peterson APRN [facility] [place] [address] Scheduled Procedures Name Priority Associated Diagnoses Date/Ti me INJECTION, FACET JOINT, W\FLUORO, LUMBAR, 2ND LEVEL (WRVU 1) Spondylosis of lumbar region without myelopathy or radiculopathy INJECTION, FACET JOINT, W\FLUORO, LUMBAR, SINGLE (WRVU 1.52) Spondylosis of lumbar region without myelopathy or radiculopathy documented as of this encounter Procedures Procedure Name Priority Date/Time Associated Diagnosis Comments FILM LIBRARY STORAGE ONLY CT ABDOMEN AND PELVIS Routine 02/06/2019 12:00 AM EDT documented in this encounter Results * Film Library- Storage Only CT Abdomen & Pelvis (02/06/2019 12:00 AM EDT) Narrative RICARDO - 05/12/2019 11:27 AM EST This exam is auto-finalizing. It's purpose is for storage only. Dilan Hernandez MD IMG FILM LIBRARY ORD ERABLES Performing Organization Address City/State/[facility] Co de Phone Number [place], [place] documented in this encounter Visit Diagnoses Not on filedocumented in this encounter Care Teams Smelter Charger Relationship Specialty Start Date End Date Dilan Hernandez MD [address] [place] [address] [place] [phone] PCP - General 04/30/10 documented as of this encounter
--- OUTSIDE RECORDS SUMMARY | 2024-07-07 20:09 | XMS_ITS | Encounter Summary ---
Author Organization [facility] Address [address] [place] [address] Care Team Providers Care House Decorator Name Role Phone Dilan Hernandez MD Primary Care Provider [phone] Reason for Visit * Reason Onset Date Comments Other 05/16/2020 Encounter Details Date Type Department Care Team (Late st Contact Info) Description 05/16/2020 Telephone [facility] General Surgery - [facility] [address] [place], [place] [phone] Hollis Salgado MD [address] [facility], [address] [place] [address] Other Social History Tobacco Use [...] Telephone Encounter - Veronica Coulter RN - 05/21/2020 1142 EST Call out to Mallorie. She complains of food regurgitation and abdominal distention. She does not complain of nausea/vomiting. She states that it feels like food is sitting in her throat. She states that her surgery is no longer working. Reviewed with Dr. Salgado- plan for UGI test here followed by office visit. No urgency per MD. Patient voiced understanding. Will follow up as needed. * Telephone Encounter - Talisha York - 05/16/2020 1137 EST Patient asking to speak to nurse regarding continued problems post surgery in February. Stomach ishuge and hard. documented in this encounter Plan of Treatment Not on file documented as of this encounter Visit Diagnoses Diagnosis Gastric outlet obstruction- Primary Acquired hypertrophic pyloric stenosis documented in this encounter Care Teams House Decorator Relationship Specialty Start Date End Date Dilan Hernandez MD [address] [place] [address],[address] [place] [phone] PCP - General 07/28/19 documented as of this encounter
--- OUTSIDE RECORDS SUMMARY | 2024-07-07 20:09 | XMS_ITS | Encounter Summary ---
Author Organization [facility] Address [address] [place] [address] Care Team Providers Care Stone Grader Name Role Phone Dilan Hernandez MD Primary Care Provider Reason for Visit * Reason Onset Date Comments Other 05/01/2020 Encounter Details Date Type Department Care Team (Late st Contact Info) Description 05/01/2020 Telephone [facility] General Surgery - [facility] [address] [place], [place] [phone] Hollis Salgado MD [address] [facility], [address] [place] [address] Other Social History Tobacco Use [...] No 02/29/2020 14:00 EDKristen Boles RN * Do you have serious difficulty [...] Telephone Encounter - Veronica Coulter RN - 05/01/2020 1442 EST Date of Surgery: 02/29/2020 ?? Surgeon: Hollis Salgado MD ?? Assistants: Dilan Mcnally MD; Kimberly Hatch MS-III ?? Pre-Op Diagnosis: Gastric outlet obstruction ?? Post-Op Diagnosis: Same ?? Procedure(s): Laparoscopic gastrojejunostomy ?? Findings: Isoperistaltic gastrojejunostomy performed with stapled anastomosis. No bleeding noted onintraoperative endoscopy. Mallorie is calling concerned about a weight gain following her surgery in February. She states thatjerrell has gained 25lbs since her surgery in February. She otherwise feels well; she is eating and drinking, she is having regular bowel movements. She also complains of stomach distention and a pouch underneath her incision, which she feels is fluid related. Reviewed with Dr. Salgado- weight gainis expected after this surgery, as her gastric outlet obstruction has been resolved. He will see her in the office to assess her swelling. She accepted an appointment for 05/28 @ 1430 for follow up. She will call back prior if she has further questions or concerns. * Telephone Encounter - Talisha York - 05/01/2020 1010 EST Patient spoke to nurse here about 2 weeks ago regarding weight gain and she said she was told that her body is getting more nutrition now.Asking to speak to nurse again about this. She said there is a pouch below incision that is filled with fluid and her stomach is distended. Patient said she can send a picture if we want. documented in this encounter Plan of Treatment Not on file documented as of this encounter Visit Diagnoses Not on filedocumented in this encounter Care Teams Stone Grader Relationship Specialty Start Date End Date Dilan Hernandez MD [address] [place] [address],[address] [place] [phone] PCP - General 07/28/19 documented as of this encounter
--- OUTSIDE RECORDS SUMMARY | 2024-07-07 20:09 | XMS_ITS | Encounter Summary ---
Author Organization [facility] Address [address] [place] [address] Care Team Providers Care Movie Operator Name Role Phone Dilan Hernandez MD Primary Care Provider [phone] Reason for Visit * Reason Comments Follow-up ugi sameday Encounter Details Date Type Department Care Team (Late st Contact Info) Description 06/15/2020 11:15 EST Office Visit [facility] General Surgery - [facility] [address] [place], [place] [phone] Hollis Salgado MD [address] [facility] [address] [place] [address] Peptic ulcer disease (Primary Dx) Social History Tobacco Use Types [...] 9:54 EST documented as of this encounter Last Filed Vital Signs Vital Sign Reading Time Taken Comments Blood Pressure 123/57 06/15/2020 1053 EST Pulse 70 06/15/2020 1053 EST Temperature - - Respiratory Rate - - Oxygen Saturation - - Inhaled Oxygen Concentration - - Weight 71.7 kg (158 lb 1.6 oz) 06/15/[address] Height 154.9 cm (5' 0.98) 06/15/2020 1053 EST Body Mass Index 29.89 06/15/2020 1053 EST documented in this encounter Functional Status * [...] Kristen Arriaga RN documented in this encounter Progress Notes * BorHollis bazzi MD - 06/15/2020 1115 EST Subjective: I am seeing Mallorie Burgess in the office today at her request it has been almost 4 months since her laparoscopic gastrojejunostomy for 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 Objective: On exam her abdomen is soft and nondistended. Incisions well-healed. her weight was 158 pounds which is up about 20 pounds from her preoperative weight We reviewed her upper GI study that she had today which showed a widely patent gastrojejunostomy. She had no flow through the pylorus. She remains on omeprazole daily she is having no abdominal pain and therefore I do not think that she has a marginal ulcer. Assessment and plan: Widely patent gastrojejunostomy no obstruction to flow she wanted her bowels to be thickened I told her she should use fiber supplement as well as bananas twice daily if she should develop abdominal pain or more vomiting she will come back and see me. Otherwise I think currently she has no gastric outlet obstruction should be able to eat. Objectively she is gaining weight Eric think she is doing well. Some of this note was transcribed with [employer] dictating software. While it was proofread, it may still contain unnoticed grammatical or word errors due to incorrect transcribing. I spent a total of 25 minutes with this patient, 20 minutes of which was spent in direct counselingand coordination of care. --Hollis Salgado MD CC: Dilan Hernandez MD CC: Michael Sullivan MD documented in this encounter Plan of Treatment Not on file documented as of this encounter Visit Diagnoses Diagnosis Peptic ulcer disease- Primary Peptic ulcer, unspecified site, unspecified as acute or chronic, without mention of hemorrhage, perforation, or obstruction documented in this encounter Care Teams Movie Operator Relationship Specialty Start Date End Date Dilan Hernandez MD [address] [place] [address] ,[address] [place] [phone] PCP - General 07/28/19 documented as of this encounter
--- OUTSIDE RECORDS SUMMARY | 2024-07-07 20:09 | XMS_ITS | Encounter Summary ---
Author Organization [facility] Address [address] [place] [address] Care Team Providers Care Lead Clinical Research Coordinator Name Role Phone Dilan Hernandez MD Primary Care Provider [phone] Reason for Visit * Reason Comments Shortness of Breath Brought into triage via WC. Seen at [facility] 1 week ago for similar, 4 day prednisone taper with minimal relief. Hx of COPD - on nebulizer QID at home, 2L NC O2 while sleeping, but wearing O2 during the day recently d/t increased WOB. +Tachypnea, SpO2 94% on RA. +Wheezing. Encounter Details Date Type Department Care Team (Late st Contact Info) Description 12/03/2023 19:02 EDT - 12/03/2023 21:00 EDT Emergency [facility] Emergency Department - Main [place] [address] [place], [place] [address] Discharge Disposition: Left Against Medical Advice Social History Tobacco Use Types Packs/Day Years [...] :02 EDT documented as of this encounter Last Filed Vital Signs Vital Sign Reading Time Taken Comments Blood Pressure 137/77 12/03/2023 181 EDT Pulse 92 12/03/20231811 EDT Temperature 36.7 ??C (98.1 ??F) 12/03/2023 181 EDT Respiratory Rate 26 12/03/20231811 EDT Oxygen Saturation 94% 12/03/20231811 EDT Inhaled Oxygen Concentration - - Weight 81.6 kg (180 lb) 12/03/20231811 EDT Height 154.9 cm (5' 1) 12/03/20231811 EDT Body Mass Index 34.01 12/03/2023 181 EDT documented in this encounter Functional Status [...] Discharge Disposition Disposition Code Departure Means Destination Comment s Left Against Medical Advice Home documented in this encounter ED Notes * Mayur Potter RN - 12/03/20232058 EDT Pt stated she didn't want to wait anymore and feels a little better after her duoneb. Pt left to waiting room. States chang will get her car documented in this encounter Plan of Treatment Not on file documented as of this encounter Procedures Procedure Name Priority Date/Time Associated Diagnosis Comments ECG REPORT - SCANNED 12/09/2023 9:05 EDT EKG 12-LEAD STAT 12/03/2023 18:20 EDT SARS COV2, FLU A/B, RSV DETECT BY PCR STAT 12/03/2023 18:15 EDT documented in this encounter Results * ECG REPORT - SCANNED (12/09/2023 9:05 EDT) 12/09/2023 9:05 EDT us Scan 2 Geospatial Information Scientist PROCEDURE/MINOR SURGICAL OR DERABLES Final Result * EKG 12-LEAD (12/03/2023 18:20 EDT) 12/03/2023 18:2 0 EDT Narrative [facility] EKG - 12/09/2023 8:53 EDT ?[facility] Emergency ? Test Date: ?2023-12-03 Pat Name: ? MALLORIE COUCH ? Department: ?? ED ? Room: ? Gender: ? Female ? Traffic I Manager: ?? [id number] : ?1950 ? Requested By: ZARIA Terrell Number: [id number] ? Reading : ?? MEKHI PETER MD ? Measurements Intervals ?[place] ? Rate: ? 87 ? P: ?59 VT: ? 163 ?QRS: ?58 QRSD: ? 86 ? T: ?62 QT: ? 340 ? QTc: ?410 ? Interpretive Statements SINUS RHYTHM No previous ECG available for comparison I reviewed the tracing and have either agreed or edited the findings in this report. Electronically Signed On 12-09-2023 08:53:05 EDT by MEKHI PETER MD. Procedure Note Mekhi Peter MD PhD - 12/09/2023 [facility] Emergency Test Date: 2023-12-03 Pat Name: MALLORIE COUCH Department: ED Room: Gender: Female Traffic I Manager: [id number] : 1950 Requested By: ZARIA MOORE Order Number: [id number] Tino MD: MEKHI BURLESON Measurements Intervals [place] Rate: 87 P: 59 VT: 163 QRS: 58 QRSD: 86 T: 62 QT: 340 QTc: 410 Interpretive Statements SINUS RHYTHM No previous ECG available for comparison I reviewed the tracing and have either agreed or edited the findings inthis report. Electronically Signed On 12-09-2023 08:53:05 EDT by GUILLAUME KEYES. Carlos Parker MD CARDIAC ECG ORDERABLES Fi nal Result Performing Organization Address [facility]/ZIP Co de Phone Number [facility] EKG * SARS COV2, FLU A/B, RSV DETECT BY PCR (12/03/2023 18:15 EDT) FLU A RNA Result (FLARES) Negative Negative 12/03/2023 19:04 EDT [facility] FLU B RNA Result (FLBRES) Negative Negative 12/03/2023 19:04 EDT [facility] RSV RNA Result (RSVRES) Negative Negative 12/03/2023 19:04 EDT [facility] COVID-19 rt-PCR Result Negative Negative 12/03/2023 19:04 EDT [facility] Comment: Negative results do not preclude 2019-nCoV infection and should not be used as the sole basis for treatment or other patient management decisions. Negative results must be combined with clinical observations, patient history, and epidemiological information. Performed on the [employer] GeneXpert Instrument Swab NASOPHARYNGEAL STRUCTURE / Unknown Swab / Unknown 12/03/2023 18:15 EDT 12/03/2023 18:18 EDT Carlos Parker MD MICROBIOLOGY - GENERAL OR DERABLES Final Result [facility] [address] [place], [place] [phone] documented in this encounter Visit Diagnoses Not on filedocumented in this encounter Administered Medications Inactive Administered Medications - up to 3 most recent administrations Medication Order MAR Action Action Date Dose Rate Site ipratropium-albuteroL (DUONEB) 0.5 mg-3 mg(2.5 mg base)/3 mL nebulizer solution 3 mL 3 mL, nebulization, NOW X1, 1 dose, On Carolyn 12/03/23 at 1815, STAT Given 12/03/2023 19:25 EDT 3 mL documented in this encounter Active and Recently Administered Medications Times are shown in EDT. Scheduled Medication Order 12/01/2023 12/02/2023 12/03/2023 ipratropium-albuteroL (DUONEB) 0.5 mg-3 mg(2.5 mg base)/3 mL nebulizer solution 3 mL (COMPLETED) 3 mL, nebulization, NOW X1, 1 dose, On Carolyn 12/03/23 at 1815, STAT 1925 (Given - Provid er: Mayur Potter RN) documented in this encounter Orders Medications Ordered That Pravin ht Not Have Been Administered Count Last Ordered Date First Ordered Date ipratropium-albuteroL (DUONE B) 0.5 mg-3 mg(2.5 mg base)/3 mL nebulizer solution 3 mL 1 12/03/2023 documented in this encounter Additional Health Concerns Infection Onset Date Last Indicated Resolved Time R/O COVID-19 12/03/2023 12/03/2023 12/03/2023 19:0 4 EDT documented as of this encounter Care Teams Lead Clinical Research Coordinator Relationship Specialty Start Date End Date Dilan Hernandez MD [address] [place] [address] ,[address] [place] [address] PCP - General 07/28/19 documented as of this encounter
--- OUTSIDE RECORDS SUMMARY | 2024-07-07 20:09 | XMS_ITS | Encounter Summary ---
Author Organization [facility] Address [address] [place] [address] Care Team Providers Care Assistant Credit Manager Name Role Phone Dilan Hernandez MD Primary Care Provider [phone] Reason for Visit * (Routine/Next Available) - Receiving Office to Obtain Authorization Specialty Diagnoses / Procedures Referred By Contac t Referred To Contact Procedures XR OUTSIDE IMAGES NEURO Unknown, Provider, MD Referral ID Status Reason Start Date Expiration Date Visits Requested Visits Authorized [id number] Receiving Office to Obtain Authorization 1 1 1 Encounter Details Date Type Department Care Team (Latest Contact Info) Description 02/28/2021 - 02/28/2021 0:04 EDT Hospital Encounter [facility] Secondary Reads [place] Discharge Disposition: Home or [...] Date/Time Associated Diagnosis Comments XR OUTSIDE IMAGES NEURO Routine 03/20/2021 12:41 EDT documented in this encounter Results * XR OUTSIDE IMAGES NEURO (03/20/2021 12:41 EDT) Narrative 03/20/2021 12:41 EDT This is a non-reportable exam. us Provider Unknown IMMary OTHER IMAGING ORDERABLES Final Result documented in this encounter Visit Diagnoses Not on filedocumented in this encounter Care Teams Assistant Credit Manager Relationship Specialty Start Date End Date Dilan Hernandez MD [address] [place] [address],[address] [place] [phone] PCP - General 07/28/19 documented as of this encounter
--- OUTSIDE RECORDS SUMMARY | 2024-07-07 20:09 | XMS_ITS | Encounter Summary ---
Author Organization [facility] Address [address] [place] [address] Care Team Providers Care Lens Shaper Grinder Name Role Phone Dilan Hernandez MD Primary Care Provider [phone] Reason for Visit * (Routine/Next Available) - Receiving Office to Obtain Authorization Specialty Diagnoses / Procedures Referred By Contac t Referred To Contact Procedures XR OUTSIDE IMAGES NEURO Unknown, Provider, MD Referral ID Status Reason Start Date Expiration Date Visits Requested Visits Authorized [id number] Receiving Office to Obtain Authorization 1 1 1 Encounter Details Date Type Department Care Team (Latest Contact Info) Description 07/09/2020 - 07/09/2020 23:59 EST Hospital Encounter [facility] Secondary Reads [place] Discharge Disposition: Home [...] Comments XR OUTSIDE IMAGES NEURO Routine 03/20/2021 12:40 EDT documented in this encounter Results * XR OUTSIDE IMAGES NEURO (03/20/2021 12:40 EDT) Narrative 03/20/2021 12:40 EDT This is a non-reportable exam. us Provider Unknown IMMary OTHER IMAGING ORDERABLES Final Result documented in this encounter Visit Diagnoses Not on filedocumented in this encounter Care Teams Lens Shaper Grinder Relationship Specialty Start Date End Date Dilan Hernandez MD [address] [place] [address] ,[address] [place] [address] PCP - General 07/28/19 documented as of this encounter
--- OUTSIDE RECORDS SUMMARY | 2024-07-07 20:09 | XMS_ITS | Encounter Summary ---
Author Organization [facility] Address [address] [place] [address] Care Team Providers Care Tape Machine Tailer Name Role Phone Dilan Hernandez MD Primary Care Provider [phone] Encounter Details Date Type Department Care Team (Late st Contact Info) Description 07/24/2023 Lab Requisition [facility] Pathology & Laboratory Medicine - [facility] [address] [place] [address] Outr Resulting Lab, Provider Social History Tobacco [...] RNA DETECT QUANT Routine 07/24/2023 13:25 EST documented in this encounter Results * HCV RNA DETECT QUANT (07/24/2023 13:25 EST) HCV RNA Qualitative Undetected Undetected 07/27/2023 13:09 EST [facility] Blood VENOUS BLOOD / Unknown 07/24/2023 13:25 EST 07/24/2023 21:17 EST Narrative [facility] - 07/27/2023 13:09 EST The quantification range of this assay is 15 IU/mL to 100,000,000 IU/mL. Testing was performed using the Valery HCV test ([employer] with the valery [id number] System. us Provider Outr Resulting Lab CHEMISTRY & BLOOD GA S ORDERABLES Final Result [facility] [address] [place] [address] documented in this encounter Visit Diagnoses Not on filedocumented in this encounter Additional Health Concerns Infection Onset Date Last Indicated Resolved Time R/O COVID-19 12/03/2023 12/03/2023 12/03/2023 19:0 4 EDT documented as of this encounter Care Teams Tape Machine Tailer Relationship Specialty Start Date End Date Dilan Hernandez MD [address] [place] [address],[address] [place] [address] PCP - General 07/28/19 documented as of this encounter
--- OUTSIDE RECORDS SUMMARY | 2024-07-07 20:09 | XMS_ITS | Encounter Summary ---
Author Organization [facility] Address [address] [place] [address] Care Team Providers Care Mixing Machine Tender Cork Gasket Name Role Phone Dilan Hernandez MD Primary Care Provider [phone] Reason for Visit * Reason Comments Follow-up Hernia Encounter Details Date Type Department Care Team (Late st Contact Info) Description 03/29/2020 13:00 EDT Post-op Visit [facility] General Surgery - [facility] [address] [place], [place] [id number] Hollis Salgado MD [address] [facility], [address] [place] [address] Peptic ulcer disease (Primary Dx); Gastric outlet obstruction Social History Tobacco Use Types Packs/Day Years [...] - Inhaled Oxygen Concentration - - Weight 66.7 kg (147 lb) 03/29/2020 1310 EDT Height 154.9 cm (5' 1) 03/29/2020 1310 EDT Body Mass Index 27.78 03/29/2020 1310 EDT documented in this encounter Functional Status [...] documented in this encounter Progress Notes * Hollis Salgado MD - 03/29/2020 1300 EDT I saw Mallorie Burgess in the office today about a month out from her gastrojejunostomy for chronic peptic ulcer disease with stricture. she has been doing well she had an uneventful postoperative recovery. she is complaining of some swelling in her lower abdomen. she feels well. she is eating well andis very happy with the results of her surgery. objective: on exam her abdomen is soft nondistended incisions are all well-healed She has been complaining of some back pain but does have a history of this in the past Doing well. She after gastrojejunostomy for gastric outlet obstruction related to peptic ulcer disease (chronic). She feels well and that she have a good long- term result continue on PPI follow-up with me as needed --Hollis Salgado MD Copies to Dilan Hernandez MD and Michael Sullivan MD documented in this encounter Plan of Treatment Not on file documented as of this encounter Visit Diagnoses Diagnosis Peptic ulcer disease- Primary Peptic ulcer, unspecified site, unspecified as acute or chronic, without mention of hemorrhage, perforation, or obstruction Gastric outlet obstruction Acquired hypertrophic pyloric stenosis documented in this encounter Care Teams Mixing Machine Tender Cork Gasket Relationship Specialty Start Date End Date Dilan Hernandez MD [address] [place] [address] ,[address] [place] [address] PCP - General 07/28/19 documented as of this encounter
--- OUTSIDE RECORDS SUMMARY | 2024-07-07 20:09 | XMS_ITS | Encounter Summary ---
Author Organization [facility] Address [address] [place] [address] Care Team Providers Care Compressor House Operator Name Role Phone Dilan Hernandez MD Primary Care Provider [phone] Reason for Visit * Reason Comments Back Problem LBP Encounter Details Date Type Department Care Team (Late st Contact Info) Description 12/02/2022 14:15 EDT Office Visit [facility] Neurosurgery - [address] [address] Gigi Perkins MD 111 [facility], [facility] [address] [place] [address] Degenerative scoliosis in adult patient (Primary Dx) Social History Tobacco Use Types [...] Author No 12/02/2022 14:55 EDKristen Boles RN documented as of this encounter Mental Status * Because of a physical, mental, or emotional condition, does this person have serious difficulty concentrating, remembering, or making decisions? Answer Entry Date Author No 12/02/2022 14:55 Kristen Arriaga RN documented in this encounter Progress Notes * Gigi Perkins MD - 12/02/2022 1415 EDT Patient is referred by Dr. Hernandez for evaluation of back pain. Ms. Burgess is a 72-year-old woman with a history of COPD using supplemental oxygen at night, depression, gastrojejunostomy. She presents with 3 years of progressive low back pain. This is worse with activity or forward flexion. It is partly relieved with sitting. She has intermittent pain in the legs, particularly the anterior thighs and the lateral thighs, but this is a relatively minor componentof her overall pain syndrome. Current Oswestry disability index is 19 out of 50. Pain scores of 5/7/3/9. She currently manages her pain with a TENS unit and ibuprofen. She has tried gabapentin but did not tolerate it. She is done physical therapy. I reviewed her imaging personally. She has transitional anatomy with a partially sacralized L5. Mobile degenerative spondylolisthesis is seen at L3-4 and L4-5. There is degenerative scoliosis with a left lateral listhesis at L3-4. MRI reveals some bilateral lateral recess stenosis in the lower lumbar spine but this is generally not impressive. 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 Social history: The patient is a pack and 1/2/day smoker. She drinks alcohol rarely. Physical examination reveals a mildly obese woman in no outward distress. She has about a centimeter of coronal imbalance to the left. She has a slightly stooped posture. She has a normal gait and isable to walk on her toes and on her heels. She has full strength at the upper extremities as well as in the iliopsoas, quadriceps, dorsiflexors, EHL, plantar flexors. She denies any dermatomal numbness. Reflexes are globally diminished. Impression: Ms. Burgess is a 72-year-old woman with a history of COPD and current cigarette smoking who presents with mechanical back pain in the setting of degenerative scoliosis. We discussed the nonoperative treatment of spinal deformity, which principally consists of weight loss and core muscle st rengthening. Nonnarcotic pain medication such as tramadol or muscle relaxants can be used for periods of increased pain. While surgery is sometimes entertained for advanced degenerative deformity causing disabling pain, I am generally not enthusiastic about surgery in this patient. Surgical intervention would require extensive multilevel lumbar fusion which would have significant risk in a patient with oxygen dependent COPD. Moreover, this could not even be considered for as long as she was smoking cigarettes because of the effects of cigarette smoking on bony fusion. The patient is in full agreement and does not wish to pursue any sort of surgical intervention. She will redouble her efforts at weight loss and core strengthening. She will follow-up on an as-needed basis. I spent a total of 40 minutes on the date of this encounter meeting with the patient and reviewing documentation/coordinating care as described in the above note. documented in this encounter Plan of Treatment Not on file documented as of this encounter Visit Diagnoses Diagnosis Degenerative scoliosis in adult patient- Primary documented in this encounter Care Teams Compressor House Operator Relationship Specialty Start Date End Date Dilan Hernandez MD [address] [place] [address],[address] [place] [address] PCP - General 07/28/19 documented as of this encounter
--- OUTSIDE RECORDS SUMMARY | 2024-07-07 20:10 | XMS_ITS | Encounter Summary ---
Author Organization [facility] Address [address] [place] [address] Care Team Providers Care Product Manager E Commerce Name Role Phone Dilan Hernandez MD Primary Care Provider [phone] Encounter Details Date Type Department Care Team (Latest Contact Info) Description 10/19/2019 Travel Social History Tobacco Use Types Packs/Day Years Used Date Smoking Tobacco: Every Day Cigarettes Smokeless Tobacco: Never Comments Unknown Sex and Gender Information Value Date Recorded Sex Assigned at Female 03/25/2020 22:02 EDT Legal Sex Female 18:12 EST Gender Identity Female 08/02/2019 11:38 EST Sexual Orientation Asexual 03/25/2020 22 :02 EDT COVID-19 Exposure Response Date Recorded In the last month, have you been in contact with someone who was confirmed or suspected to have Coronavirus / COVID-19? No / Unsure 10/19/2019 7:11 EDT documented as of this encounter Plan of Treatment Not on file documented as of this encounter Visit Diagnoses Not on filedocumented in this encounter Care Teams Product Manager E Commerce Relationship Specialty Start Date End Date Dilan Hernandez MD [address] [place] [address],[address] [place] [address] PCP - General 07/28/19 documented as of this encounter
--- OUTSIDE RECORDS SUMMARY | 2024-07-07 20:10 | XMS_ITS | Encounter Summary ---
Author Organization [facility] Address [address] [place] [address] Care Team Providers Care Assistant Field Hockey Coach Name Role Phone Unknown, Provider Primary Care Provider Unava ilable Encounter Details Date Type Department Care Team (Late st Contact Info) Description 06/02/2018 Results Only [facility] [phone] Will Sullivan MD [address] [place] [address] Social History Tobacco Use Types Packs/Day Years Used Date Smoking Tobacco: Never Assessed Comments Unknown Sex and Gender Information Value Date Recorded Sex Assigned at Female 03/25/2020 22:02 EDT Legal Sex Female 18:12 EST Gender Identity Female 08/02/2019 11:38 EST Sexual Orientation Asexual 03/25/2020 22 :02 EDT documented as of this encounter Plan of Treatment Not on file documented as of this encounter Procedures Procedure Name Priority Date/Time Associated Diagnosis Comments SURGICAL PATHOLOGY Routine 06/02/2018 21 :43 EST documented in this encounter Results * SURGICAL PATHOLOGY (06/02/2018 21:43 EST) Pathology Report: SURGICAL PATHOLOGY REPORT Reports generated via electronic interface contain original data; however they are lacking the format of the original report. Caution should be taken when reading/interpret ing unformatted reports. Name: ? MALLORIE COUCH ? Accession #: ? [id number] ? : ? 1950 (Age: 68) ??F ? Collect Date: ? 06/02/2018 ? Location: ? [facility] ? Receive Date: ? 06/02/2018 ? Provider: WILL SULLIVAN MD Copy to: ELEANOR ORNELAS MD ? Final Pathologic Diagnosis: STOMACH, PYLORUS, BIOPSY: - ??Gastric antral mucosa with reactive/regenera tive foveolar hyperplasia. - ??No Helicobacter pylori-like organisms identified on H&E stained sections. Document reviewed and electronically signed by: RUDDY ARTEAGA MD Report ??Date: 06/04/2018 11:00 By the signature above, the attending physician certifies that he/she has personally conducted a gross and/or microscopic examination of the described specimens and rendered or confirmed the above diagnosis. Specimen(s) Received: Biopsy of pylorus Clinical History: Pyloric stenosis, longstanding; H. pylori Gross Description: ? Received in formalin labelled with proper patient identification (initials W, S) and biopsy of pylorus is a light katz biopsy measuring 0.3 x 0.2 x 0.1 cm. Submitted intact in block 1. SARA Bingham ([facility]) 06/03/2018 7:34 AM End of Report [facility] 06/02/2018 21:4 3 EST 06/02/2018 21:43 EST us Will Sullivan MD PATHOLOGY ORDERABLES Final Res ult [facility] [address] [place] [address] documented in this encounter Visit Diagnoses Not on filedocumented in this encounter Care Teams Assistant Field Hockey Coach Relationship Specialty Start Date End Date Unknown, Provider, PCP - General 04/10/10 07/27/19 documented as of this encounter
--- OUTSIDE RECORDS SUMMARY | 2024-07-07 20:10 | XMS_ITS | Encounter Summary ---
Author Organization [facility] Address [address] [place] [address] Care Team Providers Care Title I Assistant Name Role Phone Unavailable Primary Care Provider Unavailabl e Encounter Details Date Type Department Care Team (Late st Contact Info) Description 03/23/2006 Results Only [facility] [address] [place] [address] Dawson Walker MD Social History Tobacco Use Types Packs/Day Years [...] Procedure Name Priority Date/Time Associated Diagnosis Comments CYTOPATHOLOGY Routine 03/23/2006 0:00 EDT documented in this encounter Results * CYTOPATHOLOGY (03/23/2006 0:00 EDT) Pathology Report: CYTOPATHOLOGY REPORT Reports generated via electronic interface contain original data; however they are lacking the format of the original report. Caution should be taken when reading/interpreti ng unformatted reports. Name: ? MALLORIE PEÑA ? Accession #: ? [id number] : ? 1950 (Age: 56) ??F ?Collect Date: ? 03/23/2006 Location: ? [facility] ? Receive Date: ? 03/24/2006 Provider: ? DAWSON WALKER MD Copy to: ? CYTOLOGIC DIAGNOSIS: ? Urine, voided, cytologic evaluation: - No malignant cells identified. Document reviewed and electronically signed by: ? BROCK ANTHONY MD Report Date: ??03/24/2006 16:09 By the signature above, the attending physician certifies that he/she has personally conducted a gross and/or microscopic examination of the described specimens and rendered or confirmed the above diagnosis. Specimen Type: ? Urine, Voided Clinical History: ? Hematuria ? Gross Description: ? 10 cc' s of clear caity fluid were received and processed by selective cellular enhancement technique. ? End of Report [facility] 03/23/2006 03/24/2006 8:2 2 EDT us Dawson Walker MD PATHOLOGY ORDERABLES Final Res ult [facility] [address] [place] [address] documented in this encounter Visit Diagnoses Not on filedocumented in this encounter
--- OUTSIDE RECORDS SUMMARY | 2024-07-07 20:10 | XMS_ITS | Encounter Summary ---
Author Organization [facility] Address [address] [place] [address] Care Team Providers Care Jewelry Appraiser Name Role Phone Dilan Hernandez MD Primary Care Provider [phone] Reason for Visit * Reason Onset Date Comments Other 08/12/2019 Encounter Details Date Type Department Care Team (Late st Contact Info) Description 08/12/2019 Telephone [facility] General Surgery - [facility] [address] [place], [place] [id number] Hollis Salgado MD [address] [facility], [address] [place] [address] Other Social History Tobacco Use Types Packs/Day Years Used Date Smoking Tobacco: Every Day Cigarettes Smokeless Tobacco: Never Comments Unknown Sex and Gender Information Value Date Recorded Sex Assigned at Female 03/25/2020 22:02 EDT Legal Sex Female 18:12 EST Gender Identity Female 08/02/2019 11:38 EST Sexual Orientation Asexual 03/25/2020 22 :02 EDT documented as of this encounter Miscellaneous Notes * Telephone Encounter - Carie Purdy RN - 08/12/2019 0195 EST Patient is asking if she needs to have the gastric emptying test that has been ordered. She was advised that Dr. Salgado needs to have the results of this test to help plan her care. She will keep her appointment for above test. * Telephone Encounter - Aliza Man - 08/12/2019 1044 EST Calling to ask if she really needs the Gastric Emptying test? She was told she already needed surgery by Dr. Pepe. documented in this encounter Plan of Treatment Not on file documented as of this encounter Visit Diagnoses Not on filedocumented in this encounter Care Teams Jewelry Appraiser Relationship Specialty Start Date End Date Dilan Hernandez MD [address] [place] [address],[address] [place] [address] PCP - General 07/28/19 documented as of this encounter
--- OUTSIDE RECORDS SUMMARY | 2024-07-07 20:10 | XMS_ITS | Encounter Summary ---
Author Organization [facility] Address [address] [place] [address] Care Team Providers Care Spring Coiler Name Role Phone Unknown, Provider Primary Care Provider Unava ilable Encounter Details Date Type Department Care Team (Latest Contact Info) Description 01/23/2015 14:16 EDT - 01/23/2015 23:59 EDT Hospital Encounter [address] [address] Unknown, ProviderMD Discharge Disposition: Home or Self Care Social History Tobacco Use Types Packs/Day Years Used Date Smoking Tobacco: Never Assessed Comments Unknown Sex and Gender Information Value Date Recorded Sex Assigned at Female 03/25/2020 22:02 EDT Legal Sex Female 18:12 EST Gender Identity Female 08/02/2019 11:38 EST Sexual Orientation Asexual 03/25/2020 22 :02 EDT documented as of this encounter Discharge Disposition Disposition Code Departure Means Destination Home or Self Assisted documented in this encounter Plan of Treatment Not on file documented as of this encounter Visit Diagnoses Not on filedocumented in this encounter Care Teams Spring Coiler Relationship Specialty Start Date End Date Unknown, ProviderMD PCP - General 04/10/10 07/27/19 documented as of this encounter
--- OUTSIDE RECORDS SUMMARY | 2024-07-07 20:10 | XMS_ITS | Encounter Summary ---
Author Organization [facility] Address [address] [place] [address] Care Team Providers Care Dinkey Motor Operator Name Role Phone Dilan Hernandez MD Primary Care Provider [phone] Reason for Visit * Reason Onset Date Comments COVID-19 01/30/2020 Encounter Details Date Type Department Care Team (Late st Contact Info) Description 01/30/2020 Telephone [facility] General Surgery - [facility] [address] [place], [place] [id number] Hollis Salgado MD [address] [facility], [address] [place] [address] COVID-19 Social History Tobacco Use Types Packs/Day Years Used Date Smoking Tobacco: Every Day Cigarettes Smokeless Tobacco: Never Interpersonal Safety Answer Date Record ed Physically Hurt Never 01/08/2020 Verbally Threaten Not on file 01/08/2020 Comments Unknown Sex and Gender Information Value Date Recorded Sex Assigned at Female 03/25/2020 22:02 EDT Legal Sex Female 18:12 EST Gender Identity Female 08/02/2019 11:38 EST Sexual Orientation Asexual 03/25/2020 22 :02 EDT documented as of this encounter Miscellaneous Notes * Telephone Encounter - Michelle Esquivel - 02/10/2020 1204 EDT Patient called to discuss when she should get covid testing done for procedure on 02/28. Chemical Engineering Technician advised that the latest the test could be done is 02/24 before noon. Patient would like testing done at [facility]. Chemical Engineering Technician advised that [facility] does not do testing on the weekend so Mallorie agreed that 02/23 would be acceptable. Chemical Engineering Technician did not see order in chart, so called clinic and spoke with Yuriy who entered the order in. Then called [facility] Covid line and left message for Rochelle to advise the patient needs to bescheduled for covid testing. Faxed order to [phone]. * Telephone Encounter - Funmilayo Browne - 01/30/2020 1227 EDT Spoke with patient, and patient would like covid pre procedure testing done at [facility], but order from surgeon was not put in yet, so order is unable to be faxed to [place]. Patient procedure not until 02/28. documented in this encounter Plan of Treatment Not on file documented as of this encounter Visit Diagnoses Not on filedocumented in this encounter Care Teams Dinkey Motor Operator Relationship Specialty Start Date End Date Dilan Hernandez MD [address] [place] [address],[address] [place] [address] PCP - General 07/28/19 documented as of this encounter
--- OUTSIDE RECORDS SUMMARY | 2024-07-07 20:10 | XMS_ITS | Encounter Summary ---
Author Organization [facility] Address [address] [place] [address] Care Team Providers Care Nursing Agency Manager Name Role Phone Dilan Hernandez MD Primary Care Provider [phone] Encounter Details Date Type Department Care Team (Late st Contact Info) Description 02/24/2020 Lab Requisition [facility] Pathology & Laboratory Medicine - [facility] [address] [place] [address] Outr Resulting Lab, Provider Social History Tobacco Use Types Packs/Day Years Used Date Smoking Tobacco: Every Day Cigarettes 1.5 40 Smokeless Tobacco: Current Comments:will cut down by us ing her Ecig - down to 1 pack a day Interpersonal Safety Answer Date Record ed Physically [...] Procedure Name Priority Date/Time Associated Diagnosis Comments DO NOT ORDER STANDALONE - BROAD COVID TEST Today 02/24/2020 11:03 EDT COVID-19 TESTING Routine 02/24/2020 11:0 3 EDT documented in this encounter Results * DO NOT ORDER STANDALONE - BROAD COVID TEST (02/24/2020 11:03 EDT) COVID-19 rt-PCR Result NEGATIVE Negative 2020 16:54 EDT [facility] Comment: 2019-novel Coronavirus (2019-nCoV) not detected by the qRT-PCR assay. Consider testing for other respiratory viruses or re-collecting for 2019-nCoV testing. Note: Optimum timing for peak viral levels during infections caused by 2019-nCoV have not been determined. Collection of multiple specimens from the same patient may be necessary to detect the virus. Limitations Positive results are indicative of active infection with SARS-CoV-2 but do not rule out bacterial infection or co-infection with other viruses. The agent detected may not be the definite cause of disease. In addition, detection of viral RNA may not indicate the presence of infectious virus or that SARS-CoV-2 is the causative agent for clinical symptoms. Negative results do not preclude SARS-CoV-2 infection and should not be used as the sole basis for patient management decisions. Negative results must be combined with clinical observations, patient history, and epidemiological information. False negative results may also occur if amplification inhibitors are present in the specimen or if inadequate numbers of organisms are present in the specimen. Optimum specimen types and timing for peak viral levels during infections caused by SARS-CoV-2 have not been fully determined. Collection of multiple specimens (types and time points) from the same patient may be necessary to detect the virus. The test was validated for use with upper respiratory specimens obtained via nasopharyngeal or oropharyngeal swabs in VTM, UTM, M4, M5, M6, saline, and MTM media. The performance of this test has not been established for other specimens. Specimens collected using other FDA recommended Specimen Collection Materials listed in the FDA COVID-19 Diagnostic [employer] communication (September 01, 2019) are processed with the caveat that they were not all validated for use with this test and the result must be interpreted in this context. Furthermore, a false negative results may occur if a specimen is improperly collected, transported or handled. If the virus mutates in the RT-PCR target region, SARS-CoV-2 may not be detected or may be detected less predictably. Inhibitors or other types of interference may produce a false negative result. An interference study evaluating the effect of common cold medications was not performed. This test is not FDA-cleared but its performance characteristics were established by our CLIA-certified, CAP-accredited, high complexity laboratory in accordance with CLIA regulations, [employer] (CAP) guidelines (Aug 25, 2019), and FDA guidance (Aug 06, 2019). This test is only for use under the Food and Drug Administration's Emergency Use Authorization. Swab ENTIRE NASOPHARYNX / Unknown 02/24/2020 11:03 EDT 02/24/2020 22:34 EDT us Provider Outr Resulting Lab MICROBIOLOGY - GENER AL ORDERABLES Final Result [facility] [place], [place] * COVID-19 TESTING (02/24/2020 11:03 EDT) COVID-19 rt-PCR Result NEGATIVE Negative 2020 18:01 EDT [facility] Comment: 2019-novel Coronavirus (2019-nCoV) not detected by the qRT-PCR assay. Consider testing for other respiratory viruses or re-collecting for 2019-nCoV testing. Note: Optimum timing for peak viral levels during infections caused by 2019-nCoV have not been determined. Collection of multiple specimens from the same patient may be necessary to detect the virus. Limitations Positive results are indicative of active infection with SARS-CoV-2 but do not rule out bacterial infection or co-infection with other viruses. The agent detected may not be the definite cause of disease. In addition, detection of viral RNA may not indicate the presence of infectious virus or that SARS-CoV-2 is the causative agent for clinical symptoms. Negative results do not preclude SARS-CoV-2 infection and should not be used as the sole basis for patient management decisions. Negative results must be combined with clinical observations, patient history, and epidemiological information. False negative results may also occur if amplification inhibitors are present in the specimen or if inadequate numbers of organisms are present in the specimen. Optimum specimen types and timing for peak viral levels during infections caused by SARS-CoV-2 have not been fully determined. Collection of multiple specimens (types and time points) from the same patient may be necessary to detect the virus. The test was validated for use with upper respiratory specimens obtained via nasopharyngeal or oropharyngeal swabs in VTM, UTM, M4, M5, M6, saline, and MTM media. The performance of this test has not been established for other specimens. Specimens collected using other FDA recommended Specimen Collection Materials listed in the FDA COVID-19 [employer] communication (September 01, 2019) are processed with the caveat that they were not all validated for use with this test and the result must be interpreted in this context. Furthermore, a false negative results may occur if a specimen is improperly collected, transported or handled. If the virus mutates in the RT-PCR target region, SARS-CoV-2 may not be detected or may be detected less predictably. Inhibitors or other types of interference may produce a false negative result. An interference study evaluating the effect of common cold medications was not performed. This test is not FDA-cleared but its performance characteristics were established by our CLIA-certified, CAP-accredited, high complexity laboratory in accordance with CLIA regulations, [employer] (CAP) guidelines (Aug 25, 2019), and FDA guidance (Aug 06, 2019). This test is only for use under the Food and Drug Administration's Emergency Use Authorization. Performing Lab [facility] [place] 2020 18:01 EDT [facility] Swab 02/24/2020 11:0 3 EDT 02/24/2020 22:34 EDT us Provider Outr Resulting Lab MICROBIOLOGY - GENER AL ORDERABLES Final Result [facility] [address] [place] [address] [facility] [place], [place] documented in this encounter Visit Diagnoses Not on filedocumented in this encounter Additional Health Concerns Infection Onset Date Last Indicated Resolved Time R/O COVID-19 12/03/2023 12/03/2023 12/03/2023 19:0 4 EDT documented as of this encounter Care Teams Nursing Agency Manager Relationship Specialty Start Date End Date Dilan Hernandez MD [address] [place] [address],[address] [place] [id number] PCP - General 07/28/19 documented as of this encounter
--- OUTSIDE RECORDS SUMMARY | 2024-07-07 20:10 | XMS_ITS | Encounter Summary ---
Author Organization [facility] Address [address] [place] [address] Care Team Providers Care Utility Worker Forge Name Role Phone Dilan Hernandez MD Primary Care Provider Reason for Visit * Reason Comments Follow-up gastic emptying Encounter Details Date Type Department Care Team (Late st Contact Info) Description 11/21/2019 15:15 EDT Office Visit [facility] General Surgery - [facility] [address] [place], [place] [id number] Hollis Salgado MD [address] [facility], [address] [place] [address] Gastric outlet obstruction (Primary Dx) Social History Tobacco Use Types [...] Sign Reading Time Taken Comments Blood Pressure 106/62 11/21/2019 1513 EDT Pulse 71 11/21/2019 1513 EDT Temperature - - Respiratory Rate - - Oxygen Saturation - - Inhaled Oxygen Concentration - - Weight 62.3 kg (137 lb 4.8 oz) 11/21/2019 1513 E DT Height 154.9 cm (5' 0.98) 11/21/2019 1513 EDT Body Mass Index 25.96 11/21/2019 1513 EDT documented in this encounter Patient Instructions * Patient Instructions* Hollis Salgado MD - 11/21/2019 15:15 EDT 1 documented in this encounter Progress Notes * Hollis Salgado MD - 11/21/2019 1515 EDT SUBJECTIVE: I am seeing Mallorie Burgess in the office today in followup. She continues to have symptoms of abdominal bloating and pain. She had an upper endoscopy and dilatation with Dr Pepe. It helped for a day or 2. He dilated up the 15 mm diameter. After dilatation, he was able to pass an upper endoscope through into the duodenum. There was also some gastritis and retained food. Gastric emptying scan was borderline, but did show delayed gastric emptying. The upper GI study showed the same. She has been complaining of foul-smelling belches. Weight has been stable. Body mass index is about26. OBJECTIVE: On exam, weight is 137 pounds, height 5 feet 1 inch. Body mass index about 26. Lungs were clear. Heart: Regular rate and rhythm. Abdomen is soft. Epigastrium is distended and tympanitic, nontender. ASSESSMENT: This likely is a pyloric outlet obstruction related to peptic ulcer disease. She has had this biopsied by Dr Sullivan in [facility] for many years, always been benign. Dr Pepethought that this area was also benign- appearing as there was no mucosal abnormality. This is likely related to previous heavy NSAID use, which she no longer does but I think there is enough scarringfrom previous peptic ulcer that now is causing a gastric outlet obstruction for her. A myotomy would not work here as this is mostly just scar tissue. She will need a bypass of this segment. PLAN: Laparoscopic gastrojejunostomy was described to the patient. Risks include infection, bleeding, and anastomotic leak, bile reflux gastritis. She understands that sometimes the stomach does not work well because it has been so distended and needs about 6 to 8 weeks before it retains its function and starts to empty the stomach well. That could be something that keeps her in the hospital. We will not place feeding tubes in at that time We will not perform a vagotomy as this can decrease motility in the stomach. She may need to take a PPI at least in the short-term. We will avoid a Osmel-en-Y reconstruction as this will just increase the risk of anastomotic leak. Some people develop some bile reflux gastritis but most do not and usually it is not a problem. If it needs to be converted from a Billroth II to Osmel-en-Y later, that always can be done. She wanted to wait until the fall to have this done and I think that is reasonable as it has been going on for a long time. We will regroup then and she will schedule surgery for some time this fall. --Hollis Salgado MD CC: Dilan Hernandez MD documented in this encounter Plan of Treatment Not on file documented as of this encounter Visit Diagnoses Diagnosis Gastric outlet obstruction- Primary Acquired hypertrophic pyloric stenosis documented in this encounter Orders Case Request Count Last Ordered Date First Orde red Date CASE REQUEST OPERATING ROOM 1 11/21/2019 documented in this encounter Care Teams Utility Worker Forge Relationship Specialty Start Date End Date Dilan Hernandez MD [address] [place] [address] ,[address] [place] [address] PCP - General 07/28/19 documented as of this encounter
--- OUTSIDE RECORDS SUMMARY | 2024-07-07 20:10 | XMS_ITS | Encounter Summary ---
Author Organization [facility] Address [address] [place] [address] Care Team Providers Care Leg Man Name Role Phone Unavailable Primary Care Provider Unavailabl e Encounter Details Date Type Department Care Team (Late st Contact Info) Description 03/23/2007 Results Only [facility] - [facility] [address] [place] [address] Dawson Walker MD Social History Tobacco Use [...] Procedure Name Priority Date/Time Associated Diagnosis Comments HPV DETECTION, HIGH RISK TYPES Routine 03/23/2007 15:09 EDT CYTOPATHOLOGY Routine 03/23/2007 0:00 EDT documented in this encounter Results * HUMAN PAPILLOMA VIRUS DNA TEST (03/23/2007 15:09 EDT) Specimen Description Cervix, ThinPrep vial [facility] Result Negative for HPV types 16, 18, 31, 33, 35, 39, 45, 51, 52, 56, 58, 59, and 68. [facility] Report Status Final [id number] [facility] 03/23/2007 15:0 9 EDT 04/01/2007 15:09 EDT us Dawosn Walker MD MICROBIOLOGY - GENERAL ORDERAB LES Final Result [facility] [address] [place] [address] * CYTOPATHOLOGY (03/23/2007 0:00 EDT) Pathology Report: CYTOPATHOLOGY REPORT Reports generated via electronic interface contain original data; however they are lacking the format of the original report. Caution should be taken when reading/interpreti ng unformatted reports. Name: ? MALLORIE PEÑA ? Accession #: ? [id number] : ? 1950 (Age: 57) ??F ?Collect Date: ? 03/23/2007 Location: ? [facility] ? Receive Date: ? 03/25/2007 Provider: ?DAWSON WALKER MD Copy to: ? Specimen/Source: ?ThinPrep Pap Test, Cervix/Endocervix, processed on Macoscope ThinPrep Imaging System, with manual evaluation Last Menstrual Period: ? Previous Gynecologic Pathology: ? Yes: + HR HPV 03/13 Other: ? Additional clinical information: previous pap WNL HPVDX - HPV testing requested regardless of diagnosis on current ThinPrep Pap test. ? SPECIMEN ADEQUACY ? Satisfactory for Evaluation - transformation zone component present GENERAL CATEGORIZATION ? Negative for Intraepithelial Lesion or Malignancy INTERPRETATION ? Reactive cellular changes associated with inflammation present (includes repair). ? Document reviewed and electronically signed by: ? TANGELA VELASCO MD ? Report Date: ??04/01/2007 13:03 End of Report [facility] 03/23/2007 03/25/2007 us Dawson Walker MD PATHOLOGY ORDERABLES Final Res ult [facility] [address] [place] [address] documented in this encounter Visit Diagnoses Not on filedocumented in this encounter
--- OUTSIDE RECORDS SUMMARY | 2024-07-07 20:10 | XMS_ITS | Encounter Summary ---
Author Organization [facility] Address [address] [place] [address] Care Team Providers Care Turf Grower Name Role Phone Dilan Hernandez MD Primary Care Provider [phone] Reason for Visit * Reason Onset Date Comments Other 09/15/2019 Encounter Details Date Type Department Care Team (Late st Contact Info) Description 09/15/2019 Telephone [facility] Gastroenterology - [facility] [address] [place], [place] [id number] Chandrakant Pepe MD Other Social History Tobacco Use Types Packs/Day Years Used Date Smoking Tobacco: Every Day Cigarettes Smokeless Tobacco: Never Comments Unknown Sex and Gender Information Value Date Recorded Sex Assigned at Female 03/25/2020 22:02 EDT Legal Sex Female 18:12 EST Gender Identity Female 08/02/2019 11:38 EST Sexual Orientation Asexual 03/25/2020 22 :02 EDT documented as of this encounter Miscellaneous Notes * Telephone Encounter - Sherry Jones RN - 09/16/2019 1022 EDT Per guicho Flores for Mallorie to take protonix twice daily. He would like to set up a video visit with her in order to discuss her symptoms and therapy. Email sent to SAEID HUMPHREY to schedule Mallorie with Dr. Schuler. Mallorie will await schedulers phone call. * Telephone Encounter - Sherry Jones RN - 09/15/2019 1542 EDT Mallorie is wondering if she can take her 40 mg protonix twice daily as it is not working for her once daily. Originally prescribed by Dr. Pepe who is no longer with the institution. Had to sleep sitting up in her recliner last night as the acid coming up into her throat was unbearable. * Telephone Encounter - Yola Vanegas - 09/15/[address] Dawson scribbed is not doing the trick. Pt is wondering if she can take two pills daily? Please call documented in this encounter Plan of Treatment Not on file documented as of this encounter Visit Diagnoses Not on filedocumented in this encounter Care Teams Turf Grower Relationship Specialty Start Date End Date Dilan Hernandez MD [address] [place] [address],[address] [place] [address] PCP - General 07/28/19 documented as of this encounter
--- OUTSIDE RECORDS SUMMARY | 2024-07-07 20:10 | XMS_ITS | Encounter Summary ---
Author Organization [facility] Address [address] [place] [address] Care Team Providers Care Data Integration Analyst Name Role Phone Unknown, Provider Primary Care Provider Unava ilable Encounter Details Date Type Department Care Team (Late st Contact Info) Description 04/09/2010 Results Only [facility] Laboratory Services - [facility] [address] [place], [place] [id number] Dawson Walker MD Social History Tobacco Use [...] Priority Date/Time Associated Diagnosis Comments CYTOPATHOLOGY Routine 04/09/2010 0:00 EDT documented in this encounter Results * CYTOPATHOLOGY (04/09/2010 0:00 EDT) Pathology Report: CYTOPATHOLOGY REPORT ? Reports generated via electronic interface contain original data; ? however they are lacking the format of the original report. ? Caution should be taken when reading/interpreti ng unformatted reports. ? Name: ? MALLORIE COUCH ? Accession #: ? [id number] ? : ? 1950 (Age: 60) ??F ?Collect Date: ? 04/09/2010 ? Location: ? [facility] ? Receive Date: ? 04/10/2010 ? Provider: DAWSON B WALKER MD ? Copy to: ? Final Report ? SPECIMEN ADEQUACY ? Satisfactory for Evaluation ? - transformation zone component present ? GENERAL CATEGORIZATION ? Negative for Intraepithelial Lesion or Malignancy ? Specimen/Source: ??Pap Test, Cervix/Endocervix, ThinPrep Imaging System with ? manual evaluation ? Document reviewed and electronically signed by: ? MELIA Andujar(ASCP) ? Report ??Date: 04/12/2010 10:21 ? HPV with Pap Test ? Date Ordered: ? 04/12/2010 ? Status: ?? Signed Out ?Date Complete: ? 04/16/2010 ? By: ??System Interface ? Date Reported: ? 04/16/2010 ? Interpretation ? RESULT: Negative for HPV types 16, 18, 31, 33, 35, 39, 45, 51, 52, ? 56, 58, 59, and 68. ? Comments ? Document reviewed and electronically signed by: ? System Interface ? Report date: 04/16/2010 ? By the signature above, the attending physician certifies that he/she has ? personally conducted a gross and/or microscopic examination of the described ? specimens and rendered or confirmed the above diagnosis. ? End of Report ? [facility] 04/09/2010 04/10/2010 us Dawson Walker MD PATHOLOGY ORDERABLES Final Res ult Performing Organization Address City/State/[facility] Co de Phone Number [facility] [address] [place] [address] documented in this encounter Visit Diagnoses Not on filedocumented in this encounter Care Teams Data Integration Analyst Relationship Specialty Start Date End Date Unknown, Provider, PCP - General 04/10/10 07/27/19 documented as of this encounter
--- OUTSIDE RECORDS SUMMARY | 2024-07-07 20:10 | XMS_ITS | Encounter Summary ---
Author Organization [facility] Address [address] [place] [address] Care Team Providers Care Case Aide Name Role Phone Unknown, Provider MD Primary Care Provider Unava ilable Encounter Details Date Type Department Care Team (Late st Contact Info) Description 04/13/2019 13:51 EST Hospital Encounter [place] [id number] [place] [address] Unknown, Provider, Social History Tobacco Use Types Packs/Day Years [...] 9:54 EST documented as of this encounter Plan of Treatment Not on file documented as of this encounter Visit Diagnoses Not on filedocumented in this encounter Additional Health Concerns Infection Onset Date Last Indicated Resolved Time R/O COVID-19 12/03/2023 12/03/2023 12/03/2023 19:0 4 EDT documented as of this encounter Care Teams Case Aide Relationship Specialty Start Date End Date Unknown, Provider, PCP - General 04/10/10 07/27/19 documented as of this encounter
--- OUTSIDE RECORDS SUMMARY | 2024-07-07 20:10 | XMS_ITS | Encounter Summary ---
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 Role Phone Dilan Hernandez MD Primary Care Provider [phone] Reason for Referral * Radiology Services (Routine) - Closed Specialty Diagnoses / Procedures Referred By Contac t Referred To Contact Nuclear Medicine Diagnoses Gastric outlet obstruction Procedures NM GASTRIC EMPTYING SOLID Hollis Salgado MD Phone: tel: fax: Referral ID Status Reason Start Date Expiration Date Visits Re quested Visits Authorized [id number] Closed 07/28/2019 1 1 Reason for Visit * Radiology Services (Routine) - Closed Specialty Diagnoses / Procedures Referred By Contac t Referred To Contact Nuclear Medicine Diagnoses Gastric outlet obstruction Procedures NM GASTRIC EMPTYING SOLID Hollis Salgado MD Phone: tel: fax: Referral ID Status Reason Start Date Expiration Date Visits Re quested Visits Authorized [id number] Closed 07/28/2019 1 1 Encounter Details Date Type Department Care Team (Latest Contact Info) Description 08/18/2019 7:26 EDT - 08/18/2019 23:59 EDT Hospital Encounter [facility] Radiology Nuclear Medicine [place] [address] Gastric outlet obstruction Discharge Disposition: Home or [...] :02 EDT documented as of this encounter Medications at Time of Discharge albuterol 90 mcg/actuation inhaler Inhale 2 Puffs as directed every 4 hours as needed for Wheezing. Uses 1 x day escitalopram oxalate (LEXAPRO) 10 mg tablet Take 1 Tablet by mouth daily. fluticasone-umec lidin-vilanter (TRELEGY ELLIPTA) 100-62.5-25 mcg Inhale 1 Puff as directed daily before breakfast. pramipexole (MIRAPEX) 1 mg tablet Take 1 Tablet by mouth 2 times daily. fluticasone/umec lidin/vilanter (TRELEGY ELLIPTA INHALATION) Inhale as directed. 02/22/2020 pantoprazole (PROTONIX) 40 mg tablet Take 1 Tab by mouth daily for 90 days. Take 30 minutes prior to breakfast. 30 Tab 2 08/09/2019 11/07/2019 documented as of this encounter Discharge Disposition Disposition Code Departure Means Destination Home or Self Care documented in this encounter Plan of Treatment Not on file documented as of this encounter Procedures Procedure Name Priority Date/Time Associated Diagnosis Comments NM GASTRIC EMPTYING SOLID Routine 08/18/2019 12:40 EDT Gastric outlet obstruction documented in this encounter Results * NM GASTRIC EMPTYING SOLID (08/18/2019 12:40 EDT) Anatomical Region Laterality Modality Body Nuclear Medicine 09/07/2019 13:5 2 EDT Impressions 09/07/2019 13:54 EDT Delayed gastric emptying for solid food. References: Tereza et al. [place] Journal of Gastroenterology 2000. Emilie et al. Gastroenterology 2006 [place]. [place] Journal of Gastroenterology 2006. I have personally reviewed the images and the above interpretation and agree with the findings. Narrative 09/07/2019 13:54 EDT NM GASTRIC EMPTYING SOLID ??08/18/2019 4:25 PM Technique: One mCi Tc-99m Sulfur Colloid tagged with egg whites with 2 slices of white bread, 30 grams of jam, and 120 ml of water was ingested by the patient. ??1 minute anterior and posterior mages were obtained immediately after completion of the meal, at 30 minutes, 60 minutes, 90 minutes, 120 minutes, 180 minutes and 240 minutes or up to 90 % of gastric emptying. ??Percent gastric emptying was calculated for each time point. T1/2 of gastric emptying was calculated using a geometric mean curve fit method. Findings: Time to half emptyin minutes. Retention at ??30 minutes: 92 %. ?( Rapid under 70% ) Retention at ??60 minutes: 74 %. ?( Rapid under 30%, Delayed over 90% ) Retention at ??90 minutes: 77 %. ? Retention at 120 minutes: 67 %. ? ( Delayed over 60% ) Retention at 180 minutes: 42 %. Retention at 240 minutes: 21 %. ? ( Delayed over 10% ) Procedure Note Michel Wilkinson MD - 09/07/2019 NM GASTRIC EMPTYING SOLID 08/18/2019 4:25 PM Technique: One mCi Tc-99m Sulfur Colloid tagged with egg whites with 2 slices ofwhite bread, 30 grams of jam, and 120 ml of water was ingested by thepatient. 1 minute anterior and posterior mages were obtained immediatelyafter completion of the meal, at 30 minutes, 60 minutes, 90 minutes, 120minutes, 180 minutes and 240 minutes or up to 90 % of gastric emptying.Percent gastric emptying was calculated for each time point. T1/2 ofgastric emptying was calculated using a geometric mean curve fit method. Findings: Time to half emptyin minutes. Retention at 30 minutes: 92 %. ( Rapid under 70% ) Retention at 60 minutes: 74 %. ( Rapid under 30%, Delayed over 90%) Retention at 90 minutes: 77 %. Retention at 120 minutes: 67 %. ( Delayed over 60% ) Retention at 180 minutes: 42 %. Retention at 240 minutes: 21 %. ( Delayed over 10% ) IMPRESSION Delayed gastric emptying for solid food. References: Tereza et al. [place] Journal of Gastroenterology 2000. Emilie et al. Gastroenterology 2006 Kassie et al. [place] Journal of Gastroenterology 2006. I have personally reviewed the images and the above interpretation andagree with the findings. Hollis Salgado MD [facility] NM ORDERABLES Final Result documented in this encounter Visit Diagnoses Diagnosis Gastric outlet obstruction Acquired hypertrophic pyloric stenosis documented in this encounter Administered Medications Inactive Administered Medications - up to 3 most recent administrations Medication Order MAR Action Action Date Dose Rate Site technetium (Tc-99m) sulfur colloid injection 1 millicurie 1 millicurie, intravenous, NOW X1, 1 dose, On Carolyn 08/18/19 at 0815, Routine, Imaging Protocol Orders Given 08/18/2019 8:08 EDT 0.55 millicuries documented in this encounter Orders Medications Ordered That Pravin ht Not Have Been Administered Count Last Ordered Date First Ordered Date technetium (Tc-99m) sulfur c olloid injection 1 millicurie 1 08/18/2019 documented in this encounter Care Teams Tablet Making Machine Operator Helper Relationship Specialty Start Date End Date Dilan Hernandez MD [address] [place] [place] [address],[address] [place] [id number] PCP - General 07/28/19 documented as of this encounter
--- OUTSIDE RECORDS SUMMARY | 2024-07-07 20:10 | XMS_ITS | Encounter Summary ---
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 Role Phone Unavailable Primary Care Provider Unavailabl e Encounter Details Date Type Department Care Team (Late st Contact Info) Description 03/18/2006 Results Only [facility] [address] [place] [address] Dawson Walker MD Social History Tobacco Use [...] Comments HPV DETECTION, HIGH RISK TYPES Routine 03/18/2006 8:14 EDT CYTOPATHOLOGY Routine 03/18/2006 0:00 EDT documented in this encounter Results * HUMAN PAPILLOMA VIRUS DNA TEST (03/18/2006 8:14 EDT) Specimen Description Cervix, ThinPrep vial [facility] Result Positive for one or more of HPV types 16,18,31,33,35 ,39,45,51,52,5 6,58,59, or 68. These high/intermedi ate risk HPV types are associated with dysplasia and some cervical cancers. [facility] Report Status Final [id number] [facility] 03/18/2006 8:14 EDT 03/27/2006 8:14 EDT us Dawson Walker MD MICROBIOLOGY - GENERAL ORDERAB LES Final Result [facility] [address] [place] [address] * CYTOPATHOLOGY (03/18/2006 0:00 EDT) Pathology Report: CYTOPATHOLOGY REPORT Reports generated via electronic interface contain original data; however they are lacking the format of the original report. Caution should be taken when reading/interpreti ng unformatted reports. Name: ? MARIANA MALLORIE ? Accession #: ? [id number] : ? 1950 (Age: 56) ??F ?Collect Date: ? 03/18/2006 Location: ? [facility] ? Receive Date: ? 03/23/2006 Provider: ?DAWSON WALKER MD Copy to: ? Specimen/Source: ?ThinPrep Pap Test, Cervix/Endocervix, processed on [employer] ThinPrep Imaging System, with manual evaluation Last Menstrual Period: ? 1997 Other: ? Additional clinical information: Previous paps WNL HPVDX - HPV testing requested regardless of diagnosis on current ThinPrep Pap test. ? SPECIMEN ADEQUACY ? Satisfactory for Evaluation - transformation zone component present GENERAL CATEGORIZATION ? Negative for Intraepithelial Lesion or Malignancy ? Document reviewed and electronically signed by: ? Blanka Paiz, CT(ASCP) ? Report Date: ??03/26/2006 11:07 End of Report [facility] 03/18/2006 03/23/2006 us Dawson Walker MD PATHOLOGY ORDERABLES Final Res ult [facility] [address] [place] [address] documented in this encounter Visit Diagnoses Not on filedocumented in this encounter
--- OUTSIDE RECORDS SUMMARY | 2024-07-07 20:10 | XMS_ITS | Encounter Summary ---
Author Organization [facility] Address [address] [place] [address] Care Team Providers Care Cheese Specialist Name Role Phone Dilan Hernandez MD Primary Care Provider [phone] Encounter Details Date Type Department Care Team (Latest Contact Info) Description 08/09/2019 10:21 EST - 08/09/2019 13:40 EST Hospital En[place] [facility] [place] [facility] [address], [place] [id number] Chandrakant Pepe MD Discharge Disposition: Home or Self Care Social [...] Sign Reading Time Taken Comments Blood Pressure 108/67 08/09/2019 1315 EST Pulse - - Temperature 36.6 ??C (97.9 ??F) 08/09/2019 1211 EST Respiratory Rate 24 08/09/2019 1315 EST Oxygen Saturation 95% 08/09/2019 1315 EST Inhaled Oxygen Concentration - - Weight 59 kg (130 lb) 08/09/2019 1042 EST Height 154.9 cm (5' 1) 08/09/2019 1042 EST Body Mass Index 24.56 08/09/2019 1042 EST documented in this encounter Medications at Time [...] 08/09/2019 11/07/2019 documented as of this encounter Ordered Prescriptions Prescription Sig Dispense Quantity Refills Last Filled Start Date End Date pantoprazole (PROTONIX) 40 mg tablet Take 1 Tab by mouth daily for 90 days. Take 30 minutes prior to breakfast. 30 Tab 2 08/09/2019 0 documented in this encounter Discharge Disposition Disposition Code Departure Means Destination Home or Self Care Wheelchair Home documented in this encounter H&P Notes * Chandrakant Pepe MD - 08/09/2019 0922 EST Endoscopy Sedation for Procedure History & Physical Date: 08/09/2019 Time: 14:13 Location: [facility] GI/ENDO Planned Procedure: Procedure(s): UPPER ENDOSCOPY PROCEDURE-GI/ Poss dilation Chief Complaint/Indications for Procedure: Acquired pyloric channel stenosis. 69-year-old female previously evaluated at [facility] for a lower channel stenosis. She was seen at [facility] in 2014. At that time, GI consultation documented a history of CT scanshowing a dilated, fluid-filled stomach. Upper endoscopy in December 2014 showed nonspecific esophagitis, Helicobacter pylori negative biopsies and a pyloric channel stenosis. Per report, this was dilated using a Savary dilation technique to 15 mm. 1 month later, EGD and dilation were again repeated. Pyloric channel was dilated to 15 mm. She underwent an upper endoscopy in May,. Pathology report indicates Helicobacter pylori negative biopsies. Specific report is not available. It is unknown if the pylorus was dilated. In April 2019 colonoscopy was performed. Report not available. Pathology indicates normal colon biopsies. In 2018, she was again seen at [facility] by the general surgical service. At that time, she reported increasing symptoms of nausea and vomiting with intermittent diarrhea since July,. She has lost 10 pounds that time. She continues to smoke tobacco but denied any nonsteroidal anti- inflammatory drugs (positive previous history). She was taking baking soda for relief of dyspeptic symptoms. She had discontinued her proton pump inhibitors. CT scan in February 2019 revealed no dilated gastric contour. July 28, 2019 she was seen by Dr. Leonard from the general surgical service at [facility]. EGD possible pyloric channel dilation was ordered. History Previous Complication with Sedation and/or Anesthesia? Complication of Sedation: None no Allergies: No Known Allergies Current Medications: Current Facility-Administered Medications: diphenhydrAMINE (BENADRYL) injection 25 mg intravenous Once PRN lactated ringers (LR) infusion intravenous CONTINUOUS lidocaine (PF) 10 mg/mL (1 %) injection 2 mg intradermal PRN lidocaine (PF) 10 mg/mL (1 %) injection 2 mg intradermal PRN sodium chloride 0.9 % (flush) flush 3 mL intravenous PRN Current Outpatient Medications: albuterol 90 mcg/actuation inhaler escitalopram oxalate (LEXAPRO) 10 mg tablet joxrwvryjzr-fmzifqgfc-eclppzsc (TRELEGY ELLIPTA) 100-62.5-25 mcg fluticasone/umeclidin/vilanter (TRELEGY ELLIPTA INHALATION) pantoprazole (PROTONIX) 40 mg tablet pramipexole (MIRAPEX) 1 mg tablet Past Medical History: Past Medical History: Diagnosis Date ??? Cataracts, bilateral ??? Colon polyp ??? COPD (chronic obstructive pulmonary disease) ([facility]) ??? Gastric outlet obstruction Documented by EGD 12/2014 for [facility]. ??? GERD (gastroesophageal reflux disease) ??? High risk medications (not anticoagulants) long-term use Nonsteroidal anti-inflammatory drugs ??? Lung disease ??? Peptic ulcer disease ??? Tobacco abuse Social History: Past Surgical History: Procedure Laterality Date ??? BLADDER SUSPENSION ??? COLONOSCOPY 04/2019 Negative colonic biopsies; port not available ??? OVARY REMOVAL ??? ALICIA AND BSO ??? TUBAL LIGATION ??? UPPER GASTROINTESTINAL ENDOSCOPY 12/2014 Pyloric channel stenosis; dilation to 15 mm; Helicobacter pylori negative ??? UPPER GASTROINTESTINAL ENDOSCOPY 01/2015 Pyloric channel stenosis; dilation to 15 mm; Helicobacter pylori negative ??? UPPER GASTROINTESTINAL ENDOSCOPY 05/2018 Report not available; Helicobacter pylori negative biopsies Social History Tobacco Use ??? Smoking status: Current Every Day Smoker Packs/day: 1.50 Types: Cigarettes ??? Smokeless tobacco: Never Used Substance Use Topics ??? Alcohol use: Not on file Comment: very rarely Family History: Family History Problem Relation Age of Onset ??? Colon Cancer Mother ??? Lung Cancer Father ??? Kidney Cancer Sister ??? Esophageal Cancer Neg Hx ??? Pancreatic Cancer Neg Hx ??? Rectal Cancer Neg Hx ??? Stomach Cancer Neg Hx Review of Systems as pertinent: Negative for cardiac, pulmonary and gastrointestinal systems except as outlined above. Physical Exam Vital Signs: BP 108/67 Temp 36.6 ??C (97.9 ??F) (Tympanic) Resp 24 Ht 154.9 cm (61) Wt 59 kg (130 lb) SpO2 95% BMI 24.56 kg/m?? Heart Examination: RRR Respiratory Examination: CTA Abdominal Examination: Benign, no HSM Additional physical exam related to the proposed procedure, patient activity, disease state and treatment as pertinent: Assessment EGD with possible pyloric channel dilation/biopsies. History of acquired pyloric channel stenosis likely secondary to NSAID induced peptic ulcer disease-date unknown. Plan: Proceed with sedation for procedure Fasting Time: Date of Last Liquid: 08/09/19 Time of Last Liquid: 0515 Date of Last Solid: 08/08/19 Time of Last Solid: 2350 Chandrakant Pepe MD 08/09/2019 14:13 documented in this encounter Plan of Treatment Not on file documented as of this encounter Procedures Procedure Name Priority Date/Time Associated Diagnosis Comments UPPER ENDOSCOPY PROCEDURE Routine 08/09/2019 12:24 EST SURGICAL PATHOLOGY Routine 08/09/2019 12 :02 EST ENDOSCOPY, UPPER GI TRACT 08/09/2019 11:24 EST Gastric outlet obstruction documented in this encounter Results * UPPER ENDOSCOPY PROCEDURE (08/09/2019 12:24 EST) Anatomical Region Laterality Modality Endoscopy Narrative 08/09/2019 12:24 EST Procedure Performed EGD - biopsy EGD - balloon dialation ??< 30cm Indications for Exam pyloric channel stenosis Procedure Technique A physical exam was performed. Informed consent was obtained from the patient after explaining all the risks (perforation, bleeding, infection and adverse effects to the medicine), benefits and alternatives to the procedure which the patient appeared to understand and so stated. ??The patient was connected to the monitoring devices and placed in the left lateral position. Continuous oxygen was provided with a nasal cannula and IV medicine administered through a indwelling cannula. A time out was performed with all members of the team present. The endoscopy equipment was noted to be good working order. After adequate sedation was achieved the gastroscope was inserted under direct vision into the esophagus and then carefully advanced to the third part of duodenum.The scope was subsequently removed slowly while carefully examining the color, texture, anatomy, and integrity of the mucosa on withdrawal. ?? Retroflexion in the gastric lumen was performed with careful inspection of the GE junction in retroflexion. The gastric gomez were then carefully inspected. The scope was then withdrawn into the esophagus. Three traversals from proximal esophagus to GE junction were then completed. Pertinent findings as outlined. The patient was subsequently transferred to the recovery area in satisfactory condition. Estimated Blood Loss: None Complications None Medications Fentanyl 100 mcg Versed 5 mg Benadryl 25 mg Returned to recovery room is good condition. No complications. I was in continuous face to face attendance during the administration of moderate sedation services that were monitored by an independent trained observer who had no other duties during the procedure. ??Total sedation time was ??25 ??minutes. Findings Diaphragmatic impression and squamocolumar junction ??is located at 38 cm from the incisors. The proximal, mid and distal esophagus appear normal. 200 cc of clear fluid aspirated from gastric lumen. Semi solid food then aspirated clear. Underlying gastritis from prepyloric region to proximal greater curvature examined. Bx sent. No ulcers. Rugal pattern appears normal size. No portal gastropathy or gastric varices. Normal GEJ in retroflexed position. The pyloric channel is 3-4 mm in diameter. Progressive TTS balloon dilation with guidewire was then performed starting with the CRE 6-7-8 and then to CRE 8-9-10 mm. The 10 mm diameter offered little resistance - balloon dilation increased with further dilation but was discontinued with rupture of balloon. No pyloric channel rent produced. ??Balloon dilation continued with 12>13.5 (minimal resistance but no rent) >15.0 mm dilations. After 15 mm accomplished, scope was advanced through to the bulb. Bulb shows no ulcers but some fresh heme from guidewire passage. D2 and D3 are normal. The TTS CRE 12>15 mm balloon was then repositioned under endoscopic control to dilate the distal waist of the pyloric channel stenosis. Good rent was produced with 15 mm diameter. The pyloric channel is thick - measuring 0.5 to 0.75 cm in length. Benign appearing. The scope and instruments were then removed and the procedure terminated. Normal small bowel to D3. Diagnosis Gastritis- bx sent. Gastric outlet obstruction due to pyloric channel stenosis requiring progressive dilation up to 15 mm as described. Recommendations Resume all prev ious medications and diet. Follow-up with PCP. The pathology report will be available within the next 7 days. This report will be reviewed in conjunction with your EGD report. A letter will be sent to you and your PCP with the pertinent results and any new recommendations at that time. Start pantoprazole 40 mg po qam. F/U with General surgery as planned. Avoid all NSAIDs for the next 10 days. This electronic signature authenticates all electronic and/or handwritten documentation, including orders, generated by the signer during the episode of care contained in this record. 08/09/2019 12:24:57 PM By Chandrakant Pepe MD us Chandrakant Pepe MD GI PROCEDURE ORDERABLE S Final Result * SURGICAL PATHOLOGY (08/09/2019 12:02 EST) Amendment Comment This report is reissued to correct the biopsy location due to a database developer error. 08/10/2019 10:55 [facility] Final Diagnosis A. STOMACH, BODY, BIOPSY: - Gastric antral mucosa with reactive (chemical) gastropathy. - Negative for Helicobacter pylori microorganisms on H&E stained sections. 08/10/2019 10:55 [facility] Amendment electronically signed by Jatin Apple MD on 08/10/2019 at 1055 at 1052 Clinical History 08/10/2019 10:55 [facility] Attestation By the signature below, the attending physician certifies that they have 1) personally conducted a gross and/or microscopic examination of the described specimen(s), and/or personally interpreted the results of laboratory testing of the described specimen(s), and 2) personally rendered or confirmed the above diagnosis. 08/10/2019 10:55 [facility] Amendment electronically signed by Jatin Apple MD on 08/10/2019 at 1055 at 1052 Gross Description Received in formalin labelled with proper patient identification (initials W, S) and body Bx for gastritis are 4 fragments of pink-katz soft tissue (ranging from 0.2 cm to 0.4 cm in greatest dimension). The specimen is submitted in toto in A 1-A2. Sammi Jimi 08/09/2019 15:43 08/10/2019 10:55 [facility] Scanned Images 08/10/2019 10:55 [facility] Tissue SPECIMEN FROM STOMACH OBTAINED BY TOTAL GASTRECTOMY / Unknown 08/09/2019 12:02 EST 08/09/2019 14:50 EST us Chandrakant Pepe MD PATHOLOGY ORDERABLES E dited Result - Final [facility] [address] [place] [address] documented in this encounter Visit Diagnoses Diagnosis COPD (chronic obstructive pulmonary disease) ([facility]) Chronic airway obstruction, not elsewhere classified Tobacco abuse Tobacco use disorder Gastric outlet obstruction Acquired hypertrophic pyloric stenosis Peptic ulcer disease Peptic ulcer, unspecified site, unspecified as acute or chronic, without mention of hemorrhage, perforation, or obstruction documented in this encounter Admitting Diagnoses Diagnosis Gastric outlet obstruction Acquired hypertrophic pyloric stenosis documented in this encounter Administered Medications Inactive Administered Medications - up to 3 most recent administrations Medication Order MAR Action Action Date Dose Rate Site diphenhydrAMINE (BENADRYL) injection 25 mg 25 mg, intravenous, ONCE PRN, 1 dose, Starting on 08/09/19 at 1031, Until 08/09/19 at 1551, Sleep, Routine, Preprocedure diphenhydrAMINE (BENADRYL) injection PRN, Starting on 08/09/19 at 1141, Until 08/09/19 at 1141, Routine Given 08/09/2019 11:41 EST 25 mg fentaNYL citrate (PF) injection intravenous, PRN, Starting on 08/09/19 at 1135, Until 08/09/19 at 1139, Routine Given 08/09/2019 11:39 EST 50 mcg Given 08/09/2019 11:35 EST 50 mcg lactated ringers (LR) infusion 30 mL/hr, intravenous, CONTINUOUS, Starting on 08/09/19 at 1100, Until 08/09/19 at 1551, Routine, Preprocedure New Bag 08/09/2019 10:59 EST 30 mL/hr 30 mL/hr lidocaine (PF) 10 mg/mL (1 %) injection 2 mg 2 mg, intradermal, PRN, 4 doses, Starting on 08/09/19 at 1031, Until 08/09/19 at 1551, peripheral intravenous catheter placement, Routine, Preprocedure lidocaine (PF) 10 mg/mL (1 %) injection 2 mg 2 mg, intradermal, PRN, 2 doses, Starting on 08/09/19 at 1031, Until 08/09/19 at 1551, line access, Routine, Preprocedure lidocaine (XYLOCAINE) 2 % viscous solution oral, PRN, Starting on 08/09/19 at 1132, Until 08/09/19 at 1132, Routine Given 08/09/2019 11:32 EST 10 mL midazolam (MDV) (VERSED) injection intravenous, PRN, Starting on 08/09/19 at 1135, Until 08/09/19 at 1157, Routine Given 08/09/2019 11:57 EST 1 mg Given 08/09/2019 11:51 EST 1 mg Given 08/09/2019 11:39 EST 1 mg sodium chloride 0.9 % (flush) flush 3 mL 3 mL, intravenous, PRN, Starting on 08/09/19 at 1031, Until 08/09/19 at 1551, Line Care, Routine, Preprocedure documented in this encounter Discontinued Medications Medication Sig Discontinue Reason Start Date End Da te ranitidine (ZANTAC) 150 mg tablet Take 150 mg by mouth 2 times daily. 08/09/2019 documented as of this encounter Active and Recently Administered Medications Times are shown in EST. Continuous Medication Order 08/07/2019 08/08/2019 08/09/2019 lactated ringers (LR) infusion 30 mL/hr, intravenous, CONTINUOUS, Starting on 08/09/19 at 1100, Until 08/09/19 at 1551, Routine, Preprocedure 1059 (New Bag - Prov ider: Keaton York RN)1326 (Completed - Provider: Keaton York RN) PRN Medication Order 08/07/2019 08/08/2019 08/09/2019 diphenhydrAMINE (BENADRYL) injection 25 mg 25 mg, intravenous, ONCE PRN, 1 dose, Starting on 08/09/19 at 1031, Until 08/09/19 at 1551, Sleep, Routine, Preprocedure diphenhydrAMINE (BENADRYL) injection (COMPLETED) PRN, Starting on 08/09/19 at 1141, Until Tue 320 at 1141, Routine 1141 (Given - Provid er: Luann Gonzales RN) fentaNYL citrate (PF) injection (COMPLETED) intravenous, PRN, Starting on 08/09/19 at 1135, Until Tue 320 at 1139, Routine 1135 (Given - Provid er: Luann Gonzales, RUPA)1139 (Given - Provider: Luann Gonzales, RUPA) lidocaine (PF) 10 mg/mL (1 %) injection 2 mg 2 mg, intradermal, PRN, 4 doses, Starting on 08/09/19 at 1031, Until 08/09/19 at 1551, peripheral intravenous catheter placement, Routine, Preprocedure lidocaine (PF) 10 mg/mL (1 %) injection 2 mg 2 mg, intradermal, PRN, 2 doses, Starting on 08/09/19 at 1031, Until 08/09/19 at 1551, line access, Routine, Preprocedure lidocaine (XYLOCAINE) 2 % viscous solution (COMPLETED) oral, PRN, Starting on 08/09/19 at 1132, Until 08/09/19 at 1132, Routine 1132 (Given - Provid er: Luann Gonzales RN) midazolam (FRANCINE) (VERSED) injection (COMPLETED) intravenous, PRN, Starting on 08/09/19 at 1135, Until 08/09/19 at 1157, Routine 1135 (Given - Provid er: Luann Gonzales RN)1139 (Given - Provider: Luann Gonzales RN)1151 (Given - Provider: Luann Gonzales RN)1157 (Given - Provider: Luann Gonzales RN) sodium chloride 0.9 % (flush) flush 3 mL 3 mL, intravenous, PRN, Starting on 08/09/19 at 1031, Until 08/09/19 at 1551, Line Care, Routine, Preprocedure documented in this encounter Orders Medications Ordered That Pravin ht Not Have Been Administered Count Last Ordered Date First Ordered Date diphenhydrAMINE (BENADRYL) injection 25 mg 1 08/09/2019 lidocaine (PF) 10 mg/mL (1 % ) injection 2 mg 2 08/09/2019 sodium chloride 0.9 % (flush) flush 3 mL 1 08/09/2019 documented in this encounter Care Teams Cheese Specialist Relationship Specialty Start Date End Date Dilan Hernandez MD [address] [place] [address],[address] [place] [address] PCP - General 07/28/19 documented as of this encounter
--- OUTSIDE RECORDS SUMMARY | 2024-07-07 20:10 | XMS_ITS | Encounter Summary ---
Author Organization [facility] Address [address] [place] [address] Care Team Providers Care Commodity Director Name Role Phone Unknown, Provider Primary Care Provider Unava ilable Encounter Details Date Type Department Care Team (Late st Contact Info) Description 01/23/2015 Results Only [facility] [phone] Will Sullivan MD [address] [place] [address] Social History Tobacco Use Types [...] Date/Time Associated Diagnosis Comments SURGICAL PATHOLOGY Routine 01/23/2015 8:29 EDT documented in this encounter Results * SURGICAL PATHOLOGY (01/23/2015 8:29 EDT) Pathology Report: SURGICAL PATHOLOGY REPORT Reports generated via electronic interface contain original data; however they are lacking the format of the original report. Caution should be taken when reading/interpret ing unformatted reports. Name: ? MALLORIE COUCH ? Accession #: ? [id number] ? : ? 1950 (Age: 64) ??F ? Collect Date: ? 01/23/2015 ? Location: ? [facility] ? Receive Date: ? 01/24/2015 ? Provider: WILL SULLIVAN MD Copy to: ELEANOR ORNELAS MD ? Final Pathologic Diagnosis: STOMACH, PYLORIC STENOSIS, BIOPSY: - ??Superficial antral mucosa with no diagnostic abnormality. ??See comment - ??No evidence of Helicobacter pylori on H&E. Comment: Deeper sections examined. Document reviewed and electronically signed by: ALEXX HENSLEY MD Report ??Date: 01/26/2015 14:24 By the signature above, the attending physician certifies that he/she has personally conducted a gross and/or microscopic examination of the described specimens and rendered or confirmed the above diagnosis. Specimen(s) Received: Bx pylorus Clinical History: Pyloric stenosis Gross Description: ? Received in formalin labelled with proper patient identification (initials W, S) and pylorus are two pink-katz tissues (0.2 x 0.2 x 0.1 cm and 0.4 x 0.2 x 0.1 cm). Entirely submitted in 1. Viraj Alvarez 01/25/2015 10:50 AM End of Report [facility] 01/23/2015 8:29 EDT 01/24/2015 8:29 EDT us Will Sullivan MD PATHOLOGY ORDERABLES Final Res ult [facility] [address] [place] [address] documented in this encounter Visit Diagnoses Not on filedocumented in this encounter Care Teams Commodity Director Relationship Specialty Start Date End Date Unknown, Provider, PCP - General 04/10/10 07/27/19 documented as of this encounter
--- OUTSIDE RECORDS SUMMARY | 2024-07-07 20:10 | XMS_ITS | Encounter Summary ---
Author Organization [facility] Address [address] [place] [address] Care Team Providers Care Degreasing Wheel Operator Name Role Phone Dilan Hernandez MD Primary Care Provider [phone] Encounter Details Date Type Department Care Team (Late st Contact Info) Description 07/28/2019 Orders Only [facility] Radiology - Main [place] [address] [place], [place] [id number] Bianca Heller, DO [address] [place] [phone] Social History Tobacco Use Types Packs/Day Years [...] on filedocumented in this encounter Care Teams Degreasing Wheel Operator Relationship Specialty Start Date End Date Dilan Hernandez MD [address] [place] [address],[address] [place] [address] PCP - General 07/28/19 documented as of this encounter
--- OUTSIDE RECORDS SUMMARY | 2024-07-07 20:10 | XMS_ITS | Encounter Summary ---
Author Organization [facility] Address [address] [place] [address] Care Team Providers Care Kinesiotherapist Name Role Phone Unknown, Provider Primary Care Provider Unava ilable Encounter Details Date Type Department Care Team (Latest Contact Info) Description 01/03/2015 7:55 EDT - 01/03/2015 23:59 EDT Hospital Encounter [address] [address] Unknown, ProviderMD Discharge Disposition: Home or Self [...] Code Departure Means Destination Home or Self [facility] documented in this encounter Plan of Treatment Not on file documented as of this encounter Visit Diagnoses Not on filedocumented in this encounter Care Teams Kinesiotherapist Relationship Specialty Start Date End Date Unknown, ProviderMD PCP - General 04/10/10 07/27/19 documented as of this encounter
--- OUTSIDE RECORDS SUMMARY | 2024-07-07 20:10 | XMS_ITS | Encounter Summary ---
Author Organization [facility] Address [address] [place] [address] Care Team Providers Care Shield Operator Name Role Phone Dilan Hernandez MD Primary Care Provider [phone] Encounter Details Date Type Department Care Team (Late st Contact Info) Description 08/09/2019 11:20 EST - 08/09/2019 12:[address] [facility] Endoscopy - [facility] [place] [address] [place], [place] [id number] Chandrakant Pepe MD UPPER ENDOSCOPY PROCEDURE-GI/ Poss dilation Surgery Details Date/Time Status Location OR Service Patient Class Case Class Case Type Trauma Case? 08/09/2019 1120 Posted [facility] GI/ENDO ENDO [facility] Outpatient Procedure H - Elective Panel 1 Procedure LRB Anes Op Region Wound Class Comments UPPER ENDOSCOPY PROCEDURE-GI/ Poss dilation N/A Nurse Moderate Sedation Surgeon Surgeon Role Service Panel Chandrakant Pepe MD Primary Gastroenterol ogy 1 documented in this encounter Social History Tobacco [...] Sign Reading Time Taken Comments Blood Pressure 105/72 08/09/2019 1200 EST Pulse - - Temperature 35.5 ??C (95.9 ??F) 08/09/2019 1042 EST Respiratory Rate 21 08/09/2019 1200 EST Oxygen Saturation 99% 08/09/2019 1200 EST Inhaled Oxygen Concentration - - Weight [...] & Physical Date: 08/09/2019 Time: 14:13 Location: [facility] GI/ENDO Planned Procedure: Procedure(s): UPPER ENDOSCOPY PROCEDURE-GI/ [...] In 2018, she was again seen at [facility] by the general surgical service. At [...] Leonard from the general surgical service at [facility]. EGD possible pyloric channel dilation [...] inhaler escitalopram oxalate (LEXAPRO) 10 mg tablet swnxydtatyy-qyridfskh-quglzkle (TRELEGY ELLIPTA) 100-62.5-25 mcg fluticasone/umeclidin/vilanter (TRELEGY ELLIPTA INHALATION) pantoprazole (PROTONIX) 40 mg tablet pramipexole (MIRAPEX) 1 mg tablet Past Medical History: Past Medical History: Diagnosis Date ??? Cataracts, bilateral ??? Colon polyp ??? COPD (chronic obstructive pulmonary disease) (HCC-CMS) ??? Gastric outlet obstruction Documented by EGD 12/2014 for [facility]. ??? GERD (gastroesophageal reflux disease) ??? [...] correct the biopsy location due to a data migration consultant error. 08/10/2019 10:55 [facility] Final Diagnosis A. STOMACH, BODY, BIOPSY: - Gastric antral mucosa with reactive (chemical) gastropathy. - Negative for Helicobacter pylori microorganisms on H&E stained sections. 08/10/2019 10:55 [facility] Amendment electronically signed by Jatin Apple MD on 08/10/2019 at 1055 at 1052 Clinical History 08/10/2019 10:55 [facility] Attestation By the signature below, the attending physician certifies that they have 1) personally conducted a gross and/or microscopic examination of the described specimen(s), and/or personally interpreted the results of laboratory testing of the described specimen(s), and 2) personally rendered or confirmed the above diagnosis. 08/10/2019 10:55 [facility] Amendment electronically signed by [...] 1-A2. Sammi Jimi 08/09/2019 15:43 08/10/2019 10:55 [facility] Scanned Images 08/10/2019 10:55 [facility] Tissue SPECIMEN FROM STOMACH OBTAINED BY TOTAL GASTRECTOMY / Unknown 08/09/2019 12:02 EST 08/09/2019 14:50 EST us Chandrakant Pepe MD PATHOLOGY ORDERABLES E dited Result - Final [facility] [address] [place] [address] documented in this encounter Visit Diagnoses Diagnosis COPD (chronic obstructive pulmonary disease) ([facility]-CMS) Chronic airway obstruction, not elsewhere classified Tobacco [...] mg, intradermal, PRN, 2 doses, Starting on 3/3/20 at 1031, Until 08/09/19 at 1551, line [...] Starting on 08/09/19 at 1141, Until Tue 20 at 1141, Routine 1141 (Given - Provid er: Luann Gonzaels RN) fentaNYL citrate (PF) injection (COMPLETED) intravenous, PRN, Starting on 08/09/19 at 1135, Until Tue 320 at 1139, Routine 1135 (Given - Provid er: Luann Gonzales RN)1139 (Given - Provider: Luann Gonzales RN) lidocaine (PF) 10 mg/mL (1 %) injection 2 mg 2 mg, intradermal, PRN, 4 doses, Starting on 08/09/19 at 1031, Until Tue 20 at 1551, peripheral intravenous catheter placement, Routine, [...] - Provid er: Luann Gonzales RN) midazolam (MDV) (VERSED) injection (COMPLETED) intravenous, PRN, Starting on [...] 08/09/2019 documented in this encounter Care Teams Shield Operator Relationship Specialty Start Date End Date Dilan Hernandez MD [address] [place] [address],[address] [place] [phone] PCP - General 07/28/19 documented as of this encounter
--- OUTSIDE RECORDS SUMMARY | 2024-07-07 20:10 | XMS_ITS | Encounter Summary ---
Author Organization [facility] Address [address] [place] [address] Care Team Providers Care Town Manager Name Role Phone Unknown, Provider Primary Care Provider Unava ilable Encounter Details Date Type Department Care Team (Latest Contact Info) Description 06/02/2018 10:46 EST - 06/02/2018 23:59 EST Hospital Encounter [address] [address] Unknown, ProviderMD Discharge Disposition: Home or Self [...] on filedocumented in this encounter Care Teams Town Manager Relationship Specialty Start Date End Date Unknown, ProviderMD PCP - General 04/10/10 07/27/19 documented as of this encounter
--- OUTSIDE RECORDS SUMMARY | 2024-07-07 20:10 | XMS_ITS | Encounter Summary ---
Author Organization [facility] Address [address] [place] [address] Care Team Providers Care Ship Engineer Name Role Phone Unavailable Primary Care Provider Unavailabl e Encounter Details Date Type Department Care Team (Late st Contact Info) Description 10/08/2001 Results Only [facility] [address] [place] [address] Dawson Walker MD Social History Tobacco Use [...] Priority Date/Time Associated Diagnosis Comments CYTOPATHOLOGY Routine 10/08/2001 0:00 EDT documented in this encounter Results * CYTOPATHOLOGY (10/08/2001 0:00 EDT) Pathology Report: CYTOPATHOLOGY REPORT Reports generated via electronic interface contain original data; however they are lacking the format of the original report. Caution should be taken when reading/interpreti ng unformatted reports. Name: ? MALLOREI PEÑA ? Accession #: ? [id number] : ? 1950 (Age: 51) ??F ?Collect Date: ? 10/08/2001 Location: ? [facility] ? Receive Date: ? 10/11/2001 Provider: ?DAWSON WALKER MD Copy to: ? Specimen/Source: ?ThinPrep Pap Test, Cervix/Endocervix Last Menstrual Period: ? 1998 Other: ? Client ID#: [id number] ? SPECIMEN ADEQUACY ? Satisfactory for Evaluation - transformation zone component present GENERAL CATEGORIZATION ? Negative for Intraepithelial Lesion or Malignancy ? Document reviewed and electronically signed by: ? MELIA Mcclelland(ASCP) ? Report Date: ??10/13/2001 11:41 End of Report [facility] 10/08/2001 10/11/2001 us Dawson Walker MD PATHOLOGY ORDERABLES Final Res ult [facility] [address] [place] [address] documented in this encounter Visit Diagnoses Not on filedocumented in this encounter
--- OUTSIDE RECORDS SUMMARY | 2024-07-07 20:10 | XMS_ITS | Encounter Summary ---
Author Organization [facility] Address [address] [place] [address] Care Team Providers Care Deburring Machine Operator Name Role Phone Unavailable Primary Care Provider Unavailabl e Encounter Details Date Type Department Care Team (Late st Contact Info) Description 03/18/2005 Results Only [facility] [address] [place] [address] Dawson Walker MD Social History Tobacco Use [...] Priority Date/Time Associated Diagnosis Comments CYTOPATHOLOGY Routine 03/18/2005 0:00 EDT documented in this encounter Results * CYTOPATHOLOGY (03/18/2005 0:00 EDT) Pathology Report: CYTOPATHOLOGY REPORT Reports generated via electronic interface contain original data; however they are lacking the format of the original report. Caution should be taken when reading/interpreti ng unformatted reports. Name: ? MALLORIE PEÑA ? Accession #: ? [id number] : ? 1950 (Age: 55) ??F ?Collect Date: ? 03/18/2005 Location: ? [facility] ? Receive Date: ? 03/20/2005 Provider: ?DAWSON WALKER MD Copy to: ? Specimen/Source: ?ThinPrep Pap Test, Cervix/Endocervix, processed on [employer] ThinPrep Imaging System, with manual evaluation Last Menstrual Period: ? Other: ? Additional clinical information: Previous paps WNL HPVA - HPV testing requested if ASC-US on the current ThinPrep Pap test. ? SPECIMEN ADEQUACY ? Satisfactory for Evaluation - transformation zone component present GENERAL CATEGORIZATION ? Negative for Intraepithelial Lesion or Malignancy INTERPRETATION ? Reactive cellular changes associated with inflammation present (includes repair). ? Document reviewed and electronically signed by: ? YANG BOLANOS MD ? Report Date: ??03/28/2005 12:30 End of Report [facility] 03/18/2005 03/20/2005 us Dawson Walker MD PATHOLOGY ORDERABLES Final Res ult [facility] [address] [place] [address] documented in this encounter Visit Diagnoses Not on filedocumented in this encounter
--- OUTSIDE RECORDS SUMMARY | 2024-07-07 20:10 | XMS_ITS | Encounter Summary ---
Author Organization [facility] Address [address] [place] [address] Care Team Providers Care Play Writer Name Role Phone Dilan Hernandez MD Primary Care Provider [phone] Reason for Visit * Reason Onset Date Comments Other 08/05/2019 Encounter Details Date Type Department Care Team (Late st Contact Info) Description 08/05/2019 Telephone [facility] General Surgery - [facility] [address] [place], [place] [id number] Hollis Salgado MD [address] [facility], [address] [place] [address] Other Social History Tobacco Use [...] encounter Miscellaneous Notes * Telephone Encounter - Talisha York - 08/05/2019 2594 EST pcp requesting Note from 07/28- note in Epic. documented in this encounter Plan of Treatment Not on file documented as of this encounter Visit Diagnoses Not on filedocumented in this encounter Additional Health Concerns Infection Onset Date Last Indicated Resolved Time R/O COVID-19 12/03/2023 12/03/2023 12/03/2023 19:0 4 EDT documented as of this encounter Care Teams Play Writer Relationship Specialty Start Date End Date Dilan Hernandez MD [address] [place] [address],[address] [place] [phone] PCP - General 07/28/19 documented as of this encounter
--- OUTSIDE RECORDS SUMMARY | 2024-07-07 20:10 | XMS_ITS | Encounter Summary ---
Author Organization [facility] Address [address] [place] [address] Care Team Providers Care Banana Loader Name Role Phone Unknown, Provider Primary Care Provider Unava ilable Encounter Details Date Type Department Care Team (Late st Contact Info) Description 01/03/2015 Results Only [facility] [phone] Will Sullivan MD [address] [place] [address] Social History Tobacco Use Types [...] Date/Time Associated Diagnosis Comments SURGICAL PATHOLOGY Routine 01/03/2015 9:15 EDT documented in this encounter Results * SURGICAL PATHOLOGY (01/03/2015 9:15 EDT) Pathology Report: SURGICAL PATHOLOGY REPORT Reports generated via electronic interface contain original data; however they are lacking the format of the original report. Caution should be taken when reading/interpret ing unformatted reports. Name: ? MALLORIE COUCH ? Accession #: ? [id number] ? : ? 1950 (Age: 64) ??F ? Collect Date: ? 01/03/2015 ? Location: ? [facility] ? Receive Date: ? 01/04/2015 ? Provider: WILL SULLIVAN MD Copy to: AUNDREA BLANCO THERAPY TEACHER ? Final Pathologic Diagnosis: ESOPHAGUS, GE JUNCTION, BIOPSY: - ??Esophageal squamous mucosa with basal cell hyperplasia. - ??No columnar mucosa is seen. Document reviewed and electronically signed by: KASI SOUZA MD Report ??Date: 01/04/2015 19:11 By the signature above, the attending physician certifies that he/she has personally conducted a gross and/or microscopic examination of the described specimens and rendered or confirmed the above diagnosis. Specimen(s) Received: Bx GE junction Clinical History: Reflux Gross Description: ? Received in formalin labelled with proper patient identification (initials W, S) and GE junction are two pink-katz tissues (0.2 x 0.2 x 0.2 cm and 0.2 x 0.2 x 0.2 cm). Entirely submitted in block 1. Jovita Aparicio 01/04/2015 9:42 AM End of Report [facility] 01/03/2015 9:15 EDT 01/04/2015 9:15 EDT us Will Sullivan MD PATHOLOGY ORDERABLES Final Res ult [facility] [address] [place] [address] documented in this encounter Visit Diagnoses Not on filedocumented in this encounter Care Teams Banana Loader Relationship Specialty Start Date End Date Unknown, Provider, PCP - General 04/10/10 07/27/19 documented as of this encounter
--- OUTSIDE RECORDS SUMMARY | 2024-07-07 20:10 | XMS_ITS | Encounter Summary ---
Author Organization [facility] Address [address] [place] [address] Care Team Providers Care Community Liaison Officer Name Role Phone Unavailable Primary Care Provider Unavailabl e Encounter Details Date Type Department Care Team (Late st Contact Info) Description 04/16/2007 Results Only [facility] [address] [place] [address] Dawson Walker MD Social History Tobacco Use [...] Priority Date/Time Associated Diagnosis Comments CYTOPATHOLOGY Routine 04/16/2007 0:00 EST documented in this encounter Results * CYTOPATHOLOGY (04/16/2007 0:00 EST) Pathology Report: CYTOPATHOLOGY REPORT Reports generated via electronic interface contain original data; however they are lacking the format of the original report. Caution should be taken when reading/interpreti ng unformatted reports. Name: ? MALLORIE PEÑA ? Accession #: ? [id number] : ? 1950 (Age: 57) ??F ?Collect Date: ? 04/16/2007 Location: ? [facility] ? Receive Date: ? 04/19/2007 Provider: ? DAWSON WALKER MD Copy to: ? CYTOLOGIC DIAGNOSIS: ? Urine, voided, cytologic evaluation: 1. ?No malignant cells identified. Document reviewed and electronically signed by: ? TANGELA VELASCO MD Report Date: ??04/21/2007 08:59 By the signature above, the attending physician certifies that he/she has personally conducted a gross and/or microscopic examination of the described specimens and rendered or confirmed the above diagnosis. Specimen Type: ? Urine, Voided Clinical History: ? Hematuria. ? Gross Description: ? 60 cc of clear yellow fluid were received and processed by selective cellular enhancement technique. ? End of Report [facility] FAG[facility] 04/16/2007 04/19/2007 9:0 4 EST us Dawson Walker MD PATHOLOGY ORDERABLES Final Res ult [facility] [address] [place] [address] documented in this encounter Visit Diagnoses Not on filedocumented in this encounter
--- OUTSIDE RECORDS SUMMARY | 2024-07-07 20:10 | XMS_ITS | Encounter Summary ---
Author Organization [facility] Address [address] [place] [address] Care Team Providers Care Hoop Driving Machine Operator Name Role Phone Dilan Hernandez MD Primary Care Provider [phone] Reason for Visit * Auth/Cert Specialty Diagnoses / Procedures Referred By Albert castaneda Referred To Contact Diagnoses Gastric outlet obstruction Procedures [place] GASTROJEJUNOSTOMY Laparoscopic gastrojejunostomy Referral ID Status Reason Start Date Expiration Date Visits Re quested Visits Authorized [id number] 1 1 Encounter Details Date Type Department Care Team (Late st Contact Info) Description 02/29/2020 7:31 EDT Anesthesia Event [facility] [place] [facility] [address] [place], [place] [id number] Layne Feliz MD [address] [facility], Level 2 [place] [phone] Sonny Suárez MD [address] [place] [phone] Anesthesia Record Procedure Summary Procedure Name Responsible Anesthesiologist Anesthesia Start Time Anesthesia Stop Time Laparoscopic gastrojejunostomy (Abdomen) Layne Feliz MD 02/29/20 0731 02/29/20 1100 Events Date Time Event Comment 02/29/2020 0731 An Start The patient was re-evaluated immediately before moderate or deep sedation use, before anesthesia induction, or before the anesthesia procedure. 0737 An Start Data 0739 An Induction The patient was reevaluated immediately before moderate or deep sedation use and before anesthesia induction. 0746 An Intubation 0753 Anesthesia Ready 1053 An Extubation 1053 an stop data 1058 Handoff to RN I completed my handoff to the receiving nurse during which we: 1. Identified the patient 2. Identified the responsible provider 3. Reviewed the pertinent medical history 4. Discussed the surgical course 5. Reviewed intra-op anesthesia management and issues during anesthesia 6. Set expectations for post-procedure period 7. Allowed opportunity for questions and acknowledgement of understanding. 1100 An Stop Meds Name Total dexaMETHasone 4 mg/mL injection 4 mg fentanyl citrate (PF) injection 62.5 mcg lidocaine 2% (PF) injection glass vial 6 0 mg ketAMINE 5 mL prefilled syringe 25 mg midazolam 1 mg/mL 2 mL vial 2 mg ondansetron (PF) (ZOFRAN) injection 4 mg propOFol (DIPRIVAN) injection 110 mg rocuronium 10 mg/mL vial 50 mg sugammadex 100 mg/mL 2 mL vial 140 mg ceFAZolin (ANCEF) syringe 2 g 2,000 mg phenylephrine pre-made bag 20 mg/250 mL 3,000 mcg vecuronium 10 mg vial 6,163.22 mcg lactated ringers (LR) infusion 200 mL lactated ringers (LR) infusion 600 mL * Agents Name Insp Sevoflurane Exp Sevoflurane O2 N2O Air * Blood No blood administrations on file. Lines, Drains, and Airways Type Details Placement Removal Wound 02/29/20; 0816; Inci ivan; Abdomen; 5 trocar sites; N; Full thickness 02/29/20 0816 by Chelsey Flores, RUPA NG/OG Tube 02/29/20; In OR by M D; Left nostril; 03/02/20; 1330 02/29/20 0000 by Ivone Mandel RN 03/02/20 1330 by Isis Ramirez RN Peripheral IV 02/29/20; 0713; 20; 1.25; B Hobbs Introcan; Right, Anterior; Forearm; Inserted by RN; 1; 1% Lido, Intradermal; 03/02/20; 2207; Per protocol; No complications, Catheter intact, Dressing applied 02/29/20 0713 by Lauren Mock RN 03/02/20 2207 by Lissette Wan RN Peripheral IV 02/29/20; 0745 (crea travis via procedure documentation); Left; Hand; hand; In OR by MD; 03/03/20; 0937; Discharged; No complications 02/29/20 0745 by Jaimee Starks MD 03/03/20 0937 by Otis Pimentel RN Urethral Catheter 02/29/20; 0748; In O R by MD; Selected surgical procedures/Epidural; Non-latex; 16 fr; 10 ml; Yes; 02/29/20; 1050 02/29/20 0748 by Chelsey Flores RN 02/29/20 1050 by Chelsey Flores RN Non-Surgical Airway 02/29/20; 0824 (crea travis via procedure documentation); 02/29/20; 1053 02/29/20 0824 by Jaimee Starks MD 02/29/20 1053 by Jaimee Starks MD documented in this encounter Social History Tobacco [...] 5:59 EDT documented as of this encounter Mental Status * Because of a physical, mental, or emotional condition, do you have serious difficulty concentrating, remembering, or making decisions? (5 years old or older) Answer Entry Date Author No 02/29/2020 14:00 EDT Kristen Dillon RN documented in this encounter OR Notes * Anesthesia Postprocedure Evaluation - Jaimee Starks MD - 02/29/2020 1100 EDT Patient: Mallorie Burgess Vital signs were reviewed with the recovery nurse. Complete vitals history is available in the Epicflowsheets. Vitals Value Taken Time BP 127/60 02/29/20 1057 Temp 36.4 02/29/20 1100 Resp 20 02/29/20 1100 Pulse From Oximetry 75 BPM 02/29/20 1100 SpO2 98 % 02/29/20 1100 Vitals shown include unvalidated device data. Last Pain Score - Type of Anesthesia - general Anesthesia Post Evaluation Post-procedure vitals reviewed and are stable. Level of consciousness: sedated Temperature status: normothermia Respiratory status: airway patent and nasal cannula Cardiovascular status: acceptable Hydration status: adequate Nausea/Vomiting: none Pain management: adequate Post-Op Assessment: patient tolerated procedure well with no complications Patient participation: unable to participate due to sedation Disposition: inpatient Anesthesia Complications: No apparent anesthesia complications * Anesthesia Procedure Notes - Jaimee Starks MD - 02/29/2020 0824 EDT Associated Order(s): Peripheral IV Placement Peripheral IV Placement Date/Time: 02/29/2020 7:45 Inserted by: Jazlyn Ortega MD Placement Needle size: 18 G Laterality: left Location: hand Local anesthetic: none Site prep: alcohol Technique: anatomical landmarks Attempts: 1 * Anesthesia Procedure Notes - Jaimee Starks MD - 02/29/2020 0824 EDT Associated Order(s): Airway Airway Date/Time: 02/29/2020 7:46 Urgency: elective Airway not difficult General Information and Staff Patient location during procedure: OR Anesthesiologist: Layne Feliz MD Resident/COMPUTER GRAPHIC DESIGNER: Jaimee Starks MD Performed: resident/COMPUTER GRAPHIC DESIGNER/AA Indications and Patient Condition Indications for airway management: anesthesia Sedation level: GA Preoxygenated: yes Patient position: sniffing Ventilation assessment: 2 - Oral airway inserted Final Airway Details Final airway type: endotracheal airway Successful airway: ETT Cuffed: yes Successful intubation technique: direct laryngoscopy Facilitating devices/methods: intubating stylet Endotracheal tube insertion site: oral Blade: Juan David Blade size: #3 ETT size (mm): 7.0 Cormack-Lehane Classification: grade IIb - view of arytenoids or posterior of glottis only Placement verified by: capnometry and palpation of cuff Measured from: teeth ETT to teeth (cm): 20 Number of attempts at approach: 1 * Anesthesia Preprocedure Evaluation - Layne Feliz MD - 02/29/2020 0712 EDT Anesthesia Preprocedure Evaluation Patient Medical History, including Anesthesia History reviewed. Chart and Nursing Notes reviewed, including NPO status and Medication History. Additional ROS/History Findings: No Known Allergies Review of Systems Constitutional: Negative. Eyes: Negative. Respiratory: Negative. Cardiovascular: Negative. Gastrointestinal: Positive for heartburn. Genitourinary: Negative. Musculoskeletal: Positive for back pain. Skin: Negative. Neurological: Negative. Past Medical History: Diagnosis Date ??? Activity, other involving cardiorespiratory exercise Yard work, painting ??? Anemia slight anemic - takes iron ??? Cataracts, bilateral ??? Colon polyp ??? COPD (chronic obstructive pulmonary disease) ([facility]) inhalers 2 bid ??? Depression lexapro works well ??? Exercise involving housework ??? Exercise involving walking walks the dog .1 mile 3x week ??? Gastric outlet obstruction Documented by EGD 12/2014 for [facility]. ??? Generalized anxiety disorder lexapro works [...] ??? Wears dentures full upper, partial lower Relevant Problems PULMONARY (+) COPD (chronic obstructive pulmonary disease) (HCC-CMS) GASTROINTESTINAL (+) Peptic ulcer disease Physical Exam Airway Mallampati: II TM distance: <3 FB Neck ROM: full Cardiovascular Rhythm: regular Rate: normal Dental (+) upper dentures, lower dentures Pulmonary Breath sounds clear to auscultation Abdominal Other findings: Edentulous Anesthesia Plan ASA 3 Anesthesia Type - general Anesthesia plan and risks discussed. Informed consent obtained from patient. Specific risks discussed were bleeding, vomiting and nausea. The preoperative history and physical which was performed within 30 days of this procedure, has been reviewed and the clinically appropriate elements of the physical examination have been repeated. There are no changes to the documented history and physical or, if so, such changes are documented inthis note POSTOP BLOCK/EPIDURAL IF needed postop if surgery requires open procedure. Pt understands risk of infection and nerve injury if has postop block PAT Note (Notes from 01/30/20 through 02/29/20) No notes of this type exist for this encounter. documented in this encounter Plan of Treatment Not on file documented as of this encounter Procedures Procedure Name Priority Date/Time Associated Diagnosis Comments ANESTHESIA PERIPHERAL IV PLACEMENT Routine 02/29/2020 8:24 EDT ANESTHESIA INTUBATION Routine 02/29/2020 8:24 EDT documented in this encounter Results * Peripheral IV Placement (02/29/2020 8:24 EDT) Narrative Jaimee Starks MD - 02/29/2020 8:24 EDT Jaimee Starks MD ? 02/29/2020 ??8:36 Peripheral IV Placement Date/Time: 02/29/2020 7:45 Inserted by: Jazlyn Ortega MD Placement Needle size: 18 G Laterality: left Location: hand Local anesthetic: none Site prep: alcohol Technique: anatomical landmarks Attempts: 1 Layne Feliz MD ANESTHESIA ORDERABLES Final Result * WI AN ELECTIVE ENDOTRACHEAL AIRWAY (02/29/2020 8:24 EDT) Narrative Jaimee Starks MD - 02/29/2020 8:24 EDT Jaimee Starks MD ? 02/29/2020 ??8:24 Airway Date/Time: 02/29/2020 7:46 Urgency: elective Airway not difficult General Information and Staff Patient location during procedure: OR Anesthesiologist: Layne Feliz MD Resident/COMPUTER GRAPHIC DESIGNER: Jaimee Starks MD Performed: resident/COMPUTER GRAPHIC DESIGNER/AA Indications and Patient Condition Indications for airway management: anesthesia Sedation level: GA Preoxygenated: yes Patient position: sniffing Ventilation assessment: 2 - Oral airway inserted Final Airway Details Final airway type: endotracheal airway Successful airway: ETT Cuffed: yes Successful intubation technique: direct laryngoscopy Facilitating devices/methods: intubating stylet Endotracheal tube insertion site: oral Blade: Juan David Blade size: #3 ETT size (mm): 7.0 Cormack-Lehane Classification: grade IIb - view of arytenoids or posterior of glottis only Placement verified by: capnometry and palpation of cuff Measured from: teeth ETT to teeth (cm): 20 Number of attempts at approach: 1 Layne Feliz MD ANESTHESIA ORDERABLES Final Result documented in this encounter Visit Diagnoses Not on filedocumented in this encounter Administered Medications Inactive Administered Medications - up to 3 most recent administrations Medication Order MAR Action Action Date Dose Rate Site ceFAZolin (ANCEF) syringe 2 g 2 g, intravenous, Administer over 10 Minutes, PRE-OP ONCE, 1 dose, On Thu02/29/20 at 0700, Routine, Preprocedure Given 02/29/2020 7:50 EDT 2,000 mg dexaMETHasone (DECADRON) injection PRN, Starting on Thu02/29/20 at 0847, Until Thu02/29/20 at 1100, Routine, Anesthesia Intraprocedure Given 02/29/2020 8:47 EDT 4 mg fentaNYL citrate (PF) injection PRN, Starting on Thu02/29/20 at 0817, Until Thu02/29/20 at 1036, Routine, Anesthesia Intraprocedure Given 02/29/2020 9:21 EDT 12.5 mcg Given 02/29/2020 8:23 EDT 25 mcg Given 02/29/2020 8:17 EDT 25 mcg ketAMINE in NaCl, iso-osmotic (KETALAR) 50 mg/5 mL (10 mg/mL) IV injection PRN, Starting on Thu02/29/20 at 0741, Until Thu02/29/20 at 1100, Routine, Anesthesia Intraprocedure Given 02/29/2020 9:21 EDT 5 mg Given 02/29/2020 7:41 EDT 20 mg lactated ringers (LR) infusion 25 mL/hr, intravenous, CONTINUOUS, Starting on Thu02/29/20 at 0700, Until Thu02/29/20 at 1301, Routine, Preprocedure New Bag 02/29/2020 7:31 EDT New Bag 02/29/2020 7:21 EDT 25 mL/hr 25 mL/hr lactated ringers (LR) infusion FA IP EQF CONTINUOUS PRN FOR ONE STEP MEDS, Starting on Thu02/29/20 at 0748, Until Thu02/29/20 at 1100, Routine, Anesthesia Intraprocedure New Bag 02/29/2020 7:48 EDT lidocaine (PF) 20 mg/mL (2 %) injection PRN, Starting on Thu02/29/20 at 0743, Until Thu02/29/20 at 1100, Routine, Anesthesia Intraprocedure Given 02/29/2020 7:43 EDT 60 mg midazolam (PF) (VERSED) injection PRN, Starting on Thu02/29/20 at 0739, Until Thu02/29/20 at 1100, Routine, Anesthesia Intraprocedure Given 02/29/2020 7:39 EDT 2 mg ondansetron (PF) (ZOFRAN) injection PRN, Starting on Thu02/29/20 at 1037, Until Thu02/29/20 at 1100, Routine, Anesthesia Intraprocedure Given 02/29/2020 10:37 EDT 4 mg phenylephrine HCl in 0.9% NaCl (NEO_SYNEPHRINE) 20 mg/250 mL (80 mcg/mL) infusion solution FA IP EQF CONTINUOUS PRN FOR ONE STEP MEDS, Starting on Thu02/29/20 at 0743, Until Thu02/29/20 at 1100, Routine, Anesthesia Intraprocedure Rate Change 02/29/2020 9:05 EDT 15 mcg/min 11.3 mL/ hr Restarted 02/29/2020 8:50 EDT 10 mcg/min 7.5 mL/hr Rate Change 02/29/2020 8:25 EDT 15 mcg/min 11.3 mL/hr propOFol (DIPRIVAN) injection PRN, Starting on Thu02/29/20 at 0743, Until Thu02/29/20 at 1100, Routine, Anesthesia Intraprocedure Given 02/29/2020 7:43 EDT 110 mg rocuronium (ZEMURON) injection PRN, Starting on Thu02/29/20 at 0743, Until Thu02/29/20 at 1100, Routine, Anesthesia Intraprocedure Given 02/29/2020 8:20 EDT 10 mg Given 02/29/2020 7:43 EDT 40 mg sugammadex (BRIDION) injection PRN, Starting on Thu02/29/20 at 1037, Until Thu02/29/20 at 1100, Routine, Anesthesia Intraprocedure Given 02/29/2020 10:37 EDT 140 mg vecuronium (NORCURON) injection FA IP EQF CONTINUOUS PRN FOR ONE STEP MEDS, Starting on Thu02/29/20 at 0820, Until Thu02/29/20 at 1100, Routine, Anesthesia Intraprocedure New Bag 02/29/2020 8:20 EDT 0.7 mcg/kg/m in documented in this encounter Care Teams Hoop Driving Machine Operator Relationship Specialty Start Date End Date Dilan Hernandez MD [address] [place] [address],[address] [place] [id number] PCP - General 07/28/19 documented as of this encounter
--- OUTSIDE RECORDS SUMMARY | 2024-07-07 20:10 | XMS_ITS | Encounter Summary ---
Author Organization [facility] Address [address] [place] [address] Care Team Providers Care Switchboard Wirer Name Role Phone Dilan Hernandez MD Primary Care Provider [phone] Encounter Details Date Type Department Care Team (Latest Contact Info) Description 08/18/2019 Travel Social History Tobacco Use Types Packs/Day [...] on filedocumented in this encounter Care Teams Switchboard Wirer Relationship Specialty Start Date End Date Dilan Hernandez MD [address] [place] [address],[address] [place] [phone] PCP - General 07/28/19 documented as of this encounter
--- OUTSIDE RECORDS SUMMARY | 2024-07-07 20:10 | XMS_ITS | Encounter Summary ---
Author Organization [facility] Address [address] [place] [address] Care Team Providers Care Change Over Name Role Phone Dilan Hernandez MD Primary Care Provider [phone] Reason for Referral * Radiology Services (Routine) - Closed Specialty Diagnoses / Procedures Referred By Contac t Referred To Contact Diagnoses Gastric outlet obstruction Procedures FL UGI AIR W Hollis Amin MD Phone: tel: fax: Referral ID Status Reason Start Date Expiration Date Visits Re quested Visits Authorized [id number] Closed 07/28/2019 1 1 Reason for Visit * Radiology Services (Routine) - Closed Specialty Diagnoses / Procedures Referred By Contac t Referred To Contact Diagnoses Gastric outlet obstruction Procedures FL UGI AIR W Hollis Amin MD Phone: tel: fax: Referral ID Status Reason Start Date Expiration Date Visits Re quested Visits Authorized [id number] Closed 07/28/2019 1 1 Encounter Details Date Type Department Care Team (Latest Contact Info) Description 10/19/2019 7:13 EDT - 10/19/2019 23:59 EDT Hospital Encounter [facility] Radiology Fluoroscopy - [address] [address] Gastric outlet obstruction Discharge Disposition: Home or [...] 7:11 EDT documented as of this encounter Medications [...] Priority Date/Time Associated Diagnosis Comments FL UGI AIR W CASINO BEVERAGE SERVER Routine 10/19/2019 10 :04 EDT Gastric outlet obstruction documented in this encounter Results * FL UGI AIR W CASINO BEVERAGE SERVER (10/19/2019 10:04 EDT) Anatomical Region Laterality Modality Body Radio Fluoroscop y 10/19/2019 13:3 5 EDT Impressions 10/19/2019 13:35 EDT High-grade gastric outlet obstruction. Narrative 10/19/2019 13:35 EDT FL UGI AIR W CASINO BEVERAGE SERVER ??10/19/2019 8:00 AM Clinical History/Comments: evaluate transit though stomach into duodenum. Findings: Upper GI. Single double contrast views of the thoracic esophagus and stomach were obtained. Thoracic esophagus within normal limits. Of note is a mild to moderately dilated stomach with a large amount of residual material within it. Stomach shows normal changeability throughout the study. Gastric mucosa cannot be evaluated due to residual food. After 1 1/2 hour delay imaging only a minimal amount of contrast is noted within the duodenum. The anatomy of the pylorus and duodenum cannot be evaluated. Procedure Note James Yun MD - 10/19/2019 FL UGI AIR W CASINO BEVERAGE SERVER 10/19/2019 8:00 AM Clinical History/Comments: evaluate transit though stomach into duodenum. Findings: Upper GI. Single double contrast views of the thoracic esophagus and stomach wereobtained. Thoracic esophagus within normal limits. Of note is a mild to moderately dilated stomach with a large amount ofresidual material within it. Stomach shows normal changeability throughoutthe study. Gastric mucosa cannot be evaluated due to residual food. After 1 1/2 hour delay imaging only a minimal amount of contrast is notedwithin the duodenum. The anatomy of the pylorus and duodenum cannot beevaluated. IMPRESSION High-grade gastric outlet obstruction. Hollis Salgado MD IMG FLUOROSCOPY O RDERABLES Final Result documented in this encounter Visit Diagnoses Diagnosis Gastric outlet obstruction Acquired hypertrophic pyloric stenosis documented in this encounter Care Teams Change Over Relationship Specialty Start Date End Date Dilan Hernandez MD [address] [place] [address],[address] [place] [address] PCP - General 07/28/19 documented as of this encounter
--- OUTSIDE RECORDS SUMMARY | 2024-07-07 20:10 | XMS_ITS | Encounter Summary ---
Author Organization [facility] Address [address] [place] [address] Care Team Providers Care Shoveler Name Role Phone Dilan Hernandez MD Primary Care Provider [phone] Reason for Visit * Reason Onset Date Comments Follow-up Diagnostic PSG 02/27/2020 Encounter Details Date Type Department Care Team (Late st Contact Info) Description 02/27/[address] [facility] General Surgery - 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
--- OUTSIDE RECORDS SUMMARY | 2024-07-07 20:10 | XMS_ITS | Encounter Summary ---
Author Organization [facility] Address [address] [place] [address] Care Team Providers Care Ur Coordinator Name Role Phone Dilan Hernandez MD Primary Care Provider [phone] Reason for Visit * Auth/Cert Specialty Diagnoses / Procedures Referred By Albert castaneda Referred To Contact Diagnoses Gastric outlet obstruction Procedures ND GASTROJEJUNOSTOMY Laparoscopic gastrojejunostomy Referral ID Status Reason Start Date Expiration Date Visits Re quested Visits Authorized [id number] 1 1 Encounter Details Date Type Department Care Team (Late st Contact Info) Description 02/29/2020 7:25 EDT - 02/29/2020 11:25 EDT Surgery [facility] OR [address] [place] [address] [id number] Hollis Salgado MD [address] [facility], [address] [place] [id number] Laparoscopic gastrojejunostomy [86170 (CPT??)] Surgery Details Date/Time Status Location OR Service Patient Class Case Class Case Type Trauma Case? 02/29/2020 0725 Posted [facility] OR MOR 14 General Surgery Admit H - Elective Panel 1 Procedure LRB Anes Op Region Wound Class Comments Laparoscopic gastrojejunostomy N/A General Abdom en Class II/ Clean Contaminated Surgeon Surgeon Role Service Panel Hollis Salgado MD Primary General 1 Dilan Mcnally MD Resident - Assisting General 1 documented in this encounter Social History [...] Sign Reading Time Taken Comments Blood Pressure 105/54 02/29/2020 1115 EDT Pulse 72 02/29/2020 0642 EDT Temperature 36.4 ??C (97.5 ??F) 02/29/2020 1057 EDT Respiratory Rate 21 02/29/2020 1115 EDT Oxygen Saturation 94% 02/29/2020 1115 EDT Inhaled Oxygen Concentration - - Weight 66.2 kg (145 lb 15.1 oz) 02/29/2020 0642 EDT Height - - Body Mass Index 26.02 02/29/2020 1400 EDT [...] Kristen Arriaga RN documented in this encounter Discharge Summaries [...] outlet obstruction Documented by EGD 12/2014 for [facility]. Resolved Hospital Problems No resolved problems to [...] Code Departure Means Destination Home or Self Alf documented in this encounter Progress Notes * [...] MD 03/03/2020, 7:59 General Surgery PGY-5 Pager [phone] * Veronica Smith, - 03/02/2020 1226 EDT Respiratory Consult/Progress Note [...] Response/Results Keep MDIs as RN to admin. RT RONNIE 03/02/20 * Sujey Nichole MD - 03/02/2020 [...] Priority: Medium Documented by EGD 12/2014 for [facility]. Mallorie Burgess is a 70 y.o. female [...] once home. Kimberly Hatch 03/02/2020 7:45 Pager #[phone] I was present with the medical student [...] 12:32 #[phone] * Emily Stapleton - 03/01/2020 1406 EDT Initial Case Management/Social Work Assessment and Discharge Plan/Readmission Risk Assessment REASON FOR ADMISSION: Gastric outlet obstruction now POD 1 lap gastrojejunostomy Patient understands reason for admission: Yes PATIENT CONTACT INFO VERIFIED: Yes PATIENT ADDRESS VERIFIED: Yes Type of housing (single family, condo, apartment, half-way, single room occupancy, [facility] funded hotel room, group penitentiary) - single family Who does the patient [...] DIRECTIVES FOR FINANCES: TRANSPORTATION: Transportation: Family CULTURAL, SPIRITISM and/or LANGUAGE factors affecting health care/discharge planning: Spiritual/Cultural Requests: None Any factors affecting health care/discharge planning?: No Insurance in Place: Yes Medical Insurance: Yes Type of insurance: Commercial insurance Commercial coverage: [facility] Medicare Advantage plan Nutrition: DISCHARGE RISK ASSESSMENT: [...] device: None Community Services: Home health, MOW, SASH-none Will you live with someone who will [...] Home Health Services: None DME Provider: Pharmacy: [id number] - [place], [place] - [address] [facility] [address] [facility] [address] Home Health: Other: POST HOSPITAL TRANSITION PLAN: Anticipate dc home to self care when medically ready. Pt with supportive family who lives nearby and will assist as needed. Carie Stapleton RN [facility] [phone] 03/01/2020 * Dilan Mcnally MD - [...] Problem: Gastric outlet obstruction HM IV; Tylenol ND for pain ctrl Home meds: escitalopram, pramipexole, [...] Priority: Medium Documented by EGD 12/2014 for [facility]. Mallorie Burgess is a 70 y.o. female [...] once home. Kimberly Hatch 03/01/2020 9:36 Pager #[phone] * Aravind Greenfield RT - 02/29/2020 4552 EDT Images from the original note were [...] 02/29/20 * Lauren Mock RN - 02/29/2020 0738 EDT Preop Covid DOS screening questionnaire Please [...] polyp ??? COPD (chronic obstructive pulmonary disease) ([facility]) inhalers 2 bid ??? Depression lexapro works well ??? Exercise involving housework ??? Exercise involving walking walks the dog .1 mile 3x week ??? Gastric outlet obstruction Documented by EGD 12/2014 for [facility]. ??? Generalized anxiety disorder lexapro works well [...] obstruction ??? COPD (chronic obstructive pulmonary disease) ([facility]) ??? Tobacco abuse ??? Gastric outlet obstruction [...] had this biopsied by Dr [place] in [facility] for many years, always been benign. [...] Laparoscopic gastrojejunostomy. SURGEON: Hollis Salgado MD, FACS CONSUMER RELATIONS SPECIALIST: Dilan Mcnally MD ANESTHESIA: General endotracheal and [...] and no drains retained. Hollis Salgado MD FACS / AW Confirmation: [id number] Dictation ID: [id number] cc: Dilan Hernandez MD, [facility], [address] [place] [address], [address], [place] [address] Mcihael [place] MD, [facility], [address] [place] [phone] Dilan Mcnally MD, [facility] Mail, [address] [place] [id number] documented in this encounter Miscellaneous Notes * Plan of Care - Emily Stapleton - 03/03/2020 1023 EDT CM Discharge Note DISCHARGE DATE/TIME: 03/03/2020 DESTINATION: Home Transportation: Private vehicle ACCEPTING MD AND NUMBER: NA RN REPORT/UNIT: NA CHIROPRACTIC ASSISTANT/CHARGE/MD NOTIFIED (Y/N): NA Forms: (Acute to acute, [...] Salgado MD Assistants: Dilan Mcnally MD; Kimberly Hatch, MS-III Pre-Op Diagnosis: Gastric outlet obstruction Post-Op [...] 0.52 - 1.04 mg/dL 03/03/2020 7:24 EDT [facility] eGFR 81 >60 mL/min/1.7 3m2 03/03/2020 7:24 EDT [facility] Comment:eGFR calculated jeremias denney CKD-EPI equation for non- Americans. Multiply eGFR by 1.16 for patients. Blood VENOUS BLOOD / Unknown Venipuncture / Unknown 03/03/2020 5:51 EDT 03/03/2020 6:53 EDT Silva Salazar GEOTHERMAL HVAC TECHNICIAN CHEMISTRY & BLOOD GAS ORDERAB LES Final Result Performing Organization Address [facility] Co de Phone Number [facility] [address] [place] [address] * BUN (03/03/2020 5:51 EDT) BUN 20 10 - 26 mg/dL 03/03/2020 7:24 EDT [facility] Blood VENOUS BLOOD / Unknown Venipuncture / Unknown 03/03/2020 5:51 EDT 03/03/2020 6:53 EDT Silva Salazar GEOTHERMAL HVAC TECHNICIAN CHEMISTRY & BLOOD GAS ORDERAB LES Final Result Performing Organization Address City/[facility]/ZIP Co de Phone Number [facility] [address] [place] [address] * (ABNORMAL) ELECTROLYTES (03/03/2020 5:51 EDT) Sodium 137 136 - 145 mEq/L 03/03/2020 7:24 EDT [facility] Potassium 3.8 3.5 - 5.0 mEq/L 03/03/2020 7:24 EDT [facility] Chloride 94(L) 96 - 110 mEq/L 03/03/2020 7:24 EDT [facility] CO2 Total 31 22 - 32 mEq/L 03/03/2020 7:24 EDT [facility] Blood VENOUS BLOOD / Unknown Venipuncture / Unknown 03/03/2020 5:51 EDT 03/03/2020 6:53 EDT us Silva Salazar GEOTHERMAL HVAC TECHNICIAN CHEMISTRY & BLOOD GAS ORDERAB LES Final Result [facility] [address] [place] [address] * (ABNORMAL) COMPLETE BLOOD COUNT (03/02/2020 8:24 EDT) WBC 9.39 4.00 - 12.40 K/cmm 03/02/2020 8:52 EDT [facility] RBC 4.02 3.86 - 5.04 M/cmm 03/02/2020 8:52 [facility] Hemoglobin 12.2 11.6 - 15.2 gm/dL 03/02/2020 8:52 T [facility] HCT 36.1 34.9 - 44.4 % 03/02/2020 8:52 [facility] MCV 90 81 - 98 fl 03/02/2020 8:52 T [facility] MCH 30.3 26.7 - 33.3 pg 03/02/2020 8:52 [facility] MCHC 33.8 32.1 - 35.9 gm/dL 03/02/2020 8:52 [facility] RDW-CV 14.6 <14.7 % 03/02/2020 8:52 T [facility] RDW-SD 48.4 <50.4 fl 03/02/2020 8:52 [facility] PLT 301 141 - 377 K/cmm 03/02/2020 8:52 T [facility] MPV 9.2(L) 9.5 - 12.7 fl 03/02/2020 8:52 T [facility] Blood VENOUS BLOOD / Unknown Venipuncture / Unknown 03/02/2020 8:24 EDT 03/02/2020 8:43 EDT Dwayne Neely MD HEMATOLOGY & PF4 ORDERABLES Fin al Result [facility] [address] [place] [address] * CREATININE (03/02/2020 8:24 EDT) Creatinine 0.71 0.52 - 1.04 mg/dL 03/02/2020 10:06 EDT [facility] eGFR 88 >60 mL/min/1.7 3m2 03/02/2020 10:06 EDT [facility] Comment:eGFR calculated jeremias denney CKD-EPI equation for non- Americans. Multiply eGFR by 1.16 for patients. Blood VENOUS BLOOD / Unknown Venipuncture / Unknown 03/02/2020 8:24 EDT 03/02/2020 8:46 EDT Dwayne Neely MD CHEMISTRY & BLOOD GAS ORDERABLE S Final Result [facility] [address] [place] [address] * PHOSPHORUS (03/02/2020 8:24 EDT) Phosphorus 3.7 2.5 - 4.5 mg/dL 03/02/2020 10:06 EDT [facility] Blood VENOUS BLOOD / Unknown Venipuncture / Unknown 03/02/2020 8:24 EDT 03/02/2020 8:46 EDT Dwayne Neely MD CHEMISTRY & BLOOD GAS ORDERABLE S Final Result [facility] [address] [place] [address] * MAGNESIUM (03/02/2020 8:24 EDT) Magnesium 2.0 1.7 - 2.8 mg/dL 03/02/2020 10:06 EDT [facility] Blood VENOUS BLOOD / Unknown Venipuncture / Unknown 03/02/2020 8:24 EDT 03/02/2020 8:46 EDT Dwayne Neely MD CHEMISTRY & BLOOD GAS ORDERABLE S Final Result Performing Organization Address [facility] Co de Phone Number [facility] [address] [place] [address] * (ABNORMAL) ELECTROLYTES (03/02/2020 8:24 EDT) Sodium 138 136 - 145 mEq/L 03/02/2020 10:06 EDT [facility] Potassium 3.7 3.5 - 5.0 mEq/L 03/02/2020 10:06 EDT [facility] Chloride 95(L) 96 - 110 mEq/L 03/02/2020 10:06 EDT [facility] CO2 Total 30 22 - 32 mEq/L 03/02/2020 10:06 EDT [facility] Blood VENOUS BLOOD / Unknown Venipuncture / Unknown 03/02/2020 8:24 EDT 03/02/2020 8:46 EDT Dwayne Neely MD CHEMISTRY & BLOOD GAS ORDERABLE S Final Result Performing Organization Address [facility] Co de Phone Number [facility] [address] [place] [address] documented in this encounter Visit Diagnoses Diagnosis Gastric outlet obstruction- Primary Acquired hypertrophic pyloric stenosis Gastric outlet obstruction Acquired hypertrophic pyloric stenosis documented in this encounter Admitting Diagnoses Diagnosis Gastric outlet obstruction Acquired hypertrophic pyloric stenosis documented in this encounter Administered Medications Inactive Administered Medications - up to 3 most recent administrations Medication Order MAR Action Action Date Dose Rate Site acetaminophen (TYLENOL) solution unit dose cup 650 mg 650 mg, oral, EVERY 4 HOURS PRN, Starting on 03/02/20 at 1340, Until 03/03/20 at 1223, Pain, Routine Given 03/03/2020 9:07 EDT 650 mg Given 03/03/2020 3:37 EDT 650 mg Given 03/02/2020 18:48 EDT 650 mg bupivacaine (PF) (MARCAINE) 0.5% injection As needed, Starting on Thu02/29/20 at 1041, Until 02/29/20 at 1041, Routine, Intraprocedure Given 02/29/2020 10:41 EDT 20 mL enoxaparin (LOVENOX) injection 40 mg 40 mg, subcutaneous, AT BEDTIME, First dose on Thu03/01/20 at 2100, Until Discontinued, Routine Given 03/02/2020 21:55 EDT 40 mg Given 03/01/2020 20:16 EDT 40 mg escitalopram oxalate (LEXAPRO) tablet 10 mg 10 mg, oral, DAILY, First dose on Thu03/01/20 at 0900, Until Discontinued, Routine Given 03/03/2020 9:07 EDT 10 mg Given 03/02/2020 8:36 EDT 10 mg Given 03/01/2020 8:49 EDT 10 mg fluticasone propionate (FLOVENT) 110 mcg/actuation inhaler 1 Puff 1 Puff, inhalation, 2 TIMES DAILY, First dose on Thu02/29/20 at 2100, Until Discontinued, Routine Given 03/03/2020 9:07 EDT 1 Puff Given 03/02/2020 21:55 EDT 1 Puff Given 03/02/2020 8:35 EDT 1 Puff oxyCODONE (ROXICODONE) solution 5 mg 5 mg, oral, EVERY 4 HOURS PRN, Starting on Thu03/02/20 at 1339, Until Thu03/03/20 at 1223, Pain, Routine Given 03/03/2020 3:37 EDT 5 mg Given 03/02/2020 18:48 EDT 5 mg pantoprazole (PROTONIX) injection 40 mg 40 mg, intravenous, DAILY, First dose on Thu03/01/20 at 0945, Until Discontinued, Routine Given 03/03/2020 9:08 EDT 40 mg Given 03/02/2020 8:36 EDT 40 mg Given 03/01/2020 10:01 EDT 40 mg pramipexole (MIRAPEX) tablet 1 mg 1 mg, [...] mg Given 03/02/2020 8:36 EDT 0.5 mg sodium chloride 0.9 % irrigation As needed, Starting on Thu02/29/20 at 0825, Until Thu02/29/20 at 0825, Routine, Intraprocedure Given 02/29/2020 8:25 EDT 2,000 mL documented in this encounter Active and Recently Administered Medications Times are shown in EDT. Scheduled Medication Order 03/01/2020 03/02/2020 03/03/2020 enoxaparin (LOVENOX) injection 40 mg 40 mg, subcutaneous, AT BEDTIME, First dose on Thu03/01/20 at 2100, Until Discontinued, Routine 2015 (Given - Provider: Pat Baca RN) 2154 (Given - Provider: Rocío Arredondo, RUPA) escitalopram oxalate (LEXAPRO) tablet 10 mg 10 mg, oral, DAILY, First dose on Thu03/01/20 at 0900, Until Discontinued, Routine 0849 (Given - Provider: Uma Restrepo) 0836 (Given - Provider: Anaya Dillon, RUPA) 0907 (Given - Provider: Scott Covington, RUPA) fluticasone propionate (FLOVENT) 110 mcg/actuation inhaler 1 Puff 1 Puff, inhalation, 2 TIMES DAILY, First dose on Thu02/29/20 at 2100, Until Discontinued, Routine 0850 (Given - Provider: Uma Restrepo)2014 (Given - Provider: Pat Baca RN) 0835 (Given - Provider: Anaya Dillon, RUPA)2154 (Given - Provider: Rocío Arredondo, RUPA) 0907 (Given - Provider: Soctt Covington, RUPA) pantoprazole (PROTONIX) injection 40 mg 40 mg, intravenous, DAILY, First dose on Thu03/01/20 at 0945, Until Discontinued, Routine 1001 (Given - Provider: Anaya Dillon, RUPA) 0836 (Given - Provider: Anaya Dillon, RUPA) 0908 (Given - Provider: Scott Covington, RUPA) potassium chloride SA (K-DUR) tablet 20 mEq (COMPLETED) 20 mEq, oral, NOW X1, 1 dose, On Thu03/02/20 at 1645, Routine 1705 (Given - Provider: Anaya Dillon, RN) pramipexole (MIRAPEX) tablet 1 mg 1 mg, oral, 2 TIMES DAILY, First dose on Thu03/01/20 at 0900, Until Discontinued, Routine 0850 (Given - Provider: Uma Restrepo)2014 (Given - Provider: Pat Baca RN) 08 (Given - Provider: Anaya Dillon, RN)2154 (Given - Provider: Rocío Arredondo, RN) 0908 (Given - Provider: Scott Covington, RUPA) rOPINIRole (REQUIP) tablet 0.5 mg 0.5 mg, oral, 2 TIMES DAILY, First dose on Carolyn 03/01/20 at 0900, Until Discontinued, Routine 0850 (Given - Provider: Uma Restrepo)2014 (Given - Provider: Pat Baca RN) 0836 (Given - Provider: Anaya Dillon, RUPA)2154 (Given - Provider: Rocío Arredondo, RN) 0907 (Given - Provider: Scott Covington, RN) Continuous Medication Order 03/01/2020 03/02/2020 03/03/2020 electrolyte-A (PLASMALYTE-A) solution (CANCELED) 80 mL/hr, intravenous, CONTINUOUS, Starting on Thu02/29/20 at 1215, Until Thu03/02/20 at 2036, Routine 0710 (Rate Documented - Provider: Anaya Dillon RN)1258 (New Bag - Provider: Anaya Dillon, RN)1600 (Rate Documented - Provider: Pat Baca, RN)1800 (Rate Documented - Provider: Pat Baca, RN)2205 (Rate Documented - Provider: Pat Baca, RN) 0709 (Rate Documented - Provider: Anaya Dillon, RN)1105 (New Bag - Provider: Anaya Dillon, RN) PRN Medication Order 03/01/2020 03/02/2020 03/03/2020 acetaminophen (TYLENOL) solution unit dose cup 650 mg 650 mg, oral, EVERY 4 HOURS PRN, Starting on Thu03/02/20 at 1340, Until 03/03/20 at 1223, Pain, Routine 1848 (Given - Provider: Anaya Dillon, RN) 033 (Given - Provider: Rocío Arredondo, RN)0907 (Given - Provider: Scott Covington, RUPA) albuterol inhaler 90 mcg 90 mcg (1 [...] Routine 1848 (Given - Provider: Anaya Dillon, RUPA) 033 (Given - Provider: Rocío Arredondo, RN) documented in this encounter Orders Medications Ordered That Pravin ht Not Have Been Administered Count Last Ordered Date First Ordered Date acetaminophen (TYLENOL) solu tion unit dose cup 650 mg 1 03/02/2020 oxyCODONE (ROXICODONE) solution 5 mg 1 02/07 potassium chloride SA (K-DUR ) tablet 20 mEq 1 03/02/2020 pantoprazole (PROTONIX) injection 40 mg 1 0 03/01/2020 acetaminophen (OFIRMEV) IV s olution 1,000 mg 1 02/29/2020 acetaminophen (TYLENOL) suppository 650 mg 1 02/29/2020 albuterol inhaler 90 mcg 1 02/29/2020 atropine 0.1 mg/mL syringe 0.5 mg 1 020 ceFAZolin (ANCEF) syringe 2 g 1 02/29/2020 chlorhexidine gluconate 2 % cloth 1 Each 1 02/29/2020 diphenhydrAMINE (BENADRYL) i njection 12.5 mg 1 02/29/2020 electrolyte-A (PLASMALYTE-A) solution 1 enoxaparin (LOVENOX) injection 40 mg 1 02/07 escitalopram oxalate (LEXAPR O) tablet 10 mg 1 02/29/2020 fentaNYL citrate (PF) injection 25-50 mcg 1 02/29/2020 fluticasone propionate (FLOV ENT) 110 mcg/actuation inhaler 1 Puff 1 02/29/2020 HYDROmorphone (PF) (DILAUDID ) 0.5 mg/0.5 mL syringe 0.2-0.4 mg 1 02/29/2020 HYDROmorphone (PF) (DILAUDID ) 0.5 mg/0.5 mL syringe 0.3-0.5 mg 1 02/29/2020 lactated ringers (LR) infusion 2 02/29/2020 lidocaine (PF) 10 mg/mL (1 % ) injection 2 mg 1 02/29/2020 naloxone (NARCAN) injection 0.2 mg 1 2019 ondansetron (PF) (ZOFRAN) injection 4 mg 2 02/29/2020 pantoprazole (PROTONIX) tablet 40 mg 1 02/07 pramipexole (MIRAPEX) tablet 1 mg 1 020 rOPINIRole (REQUIP) tablet 0.5 mg 1 020 Diet Count Last Ordered Date First Orde [...] 03/03/2020 documented in this encounter Care Teams Ur Coordinator Relationship Specialty Start Date End Date Dilan Hernandez MD [address] [place] [address],[address] [place] [address] PCP - General 07/28/19 documented as of this encounter
--- OUTSIDE RECORDS SUMMARY | 2024-07-07 20:10 | XMS_ITS | Encounter Summary ---
Author Organization [facility] Address [address] [place] [address] Care Team Providers Care Plate Printer Name Role Phone Unavailable Primary Care Provider Unavailabl e Encounter Details Date Type Department Care Team (Late st Contact Info) Description 12/25/2003 Results Only [facility] [address] [place] [address] Dawson Walker MD Social History Tobacco Use [...] Priority Date/Time Associated Diagnosis Comments CYTOPATHOLOGY Routine 12/25/2003 0:00 EDT documented in this encounter Results * CYTOPATHOLOGY (12/25/2003 0:00 EDT) Pathology Report: CYTOPATHOLOGY REPORT Reports generated via electronic interface contain original data; however they are lacking the format of the original report. Caution should be taken when reading/interpreti ng unformatted reports. Name: ? MALLORIE PEÑA ? Accession #: ? [id number] : ? 1950 (Age: 53) ??F ?Collect Date: ? 12/25/2003 Location: ? [facility] ? Receive Date: ? 12/27/2003 Provider: ?DAWSON WALEKR MD Copy to: ? Specimen/Source: ?ThinPrep Pap Test, Cervix/Endocervix Last Menstrual Period: ? Other: ? HPVA - HPV testing requested if ASC-US on the current ThinPrep Pap test. ? SPECIMEN ADEQUACY ? Satisfactory for Evaluation - transformation zone component present GENERAL CATEGORIZATION ? Negative for Intraepithelial Lesion or Malignancy ? Document reviewed and electronically signed by: ? MELIA Mccurdy(ASCP) ? Report Date: ??01/02/2004 11:23 End of Report [facility] 12/25/2003 12/27/2003 us Dawson Walker MD PATHOLOGY ORDERABLES Final Res ult [facility] [address] [place] [address] documented in this encounter Visit Diagnoses Not on filedocumented in this encounter
--- OUTSIDE RECORDS SUMMARY | 2024-07-07 20:10 | XMS_ITS | Encounter Summary ---
Author Organization [facility] Address [address] [place] [address] Care Team Providers Care Tray Drier Name Role Phone Unavailable Primary Care Provider Unavailabl e Encounter Details Date Type Department Care Team (Late st Contact Info) Description 07/27/2000 Results Only [facility] [address] [place] [address] Dawson Walker MD Social History Tobacco Use [...] Priority Date/Time Associated Diagnosis Comments CYTOPATHOLOGY Routine 07/27/2000 0:00 EST documented in this encounter Results * CYTOPATHOLOGY (07/27/2000 0:00 EST) Pathology Report: CYTOPATHOLOGY REPORT Reports generated via electronic interface contain original data; however they are lacking the format of the original report. Caution should be taken when reading/interpreti ng unformatted reports. Name: ? MALLORIE PEÑA ? Accession #: ? [id number] : ? 1950 (Age: 50) ??F ?Collect Date: ? 07/27/2000 Location: ? [facility] ? Receive Date: ? 07/29/2000 Provider: ?DAWSON WALKER MD Copy to: ? Specimen/Source: ?ThinPrep Pap Test, Cervix/Endocervix Last Menstrual Period: ? 1998 Hormonal/Contracep tive Status: ? Yes ? SPECIMEN ADEQUACY ? Satisfactory for evaluation. GENERAL CATEGORIZATION ? Within Normal Limits ? Document reviewed and electronically signed by: ? Lizeth Hilario, ??CT(ASCP) ? Report Date: ??07/29/2000 14:36 End of Report [facility] 07/27/2000 07/29/2000 us Dawson Walker MD PATHOLOGY ORDERABLES Final Res ult [facility] [address] [place] [address] documented in this encounter Visit Diagnoses Not on filedocumented in this encounter
--- OUTSIDE RECORDS SUMMARY | 2024-07-07 20:10 | XMS_ITS | Encounter Summary ---
Author Organization [facility] Address [address] [place] [address] Care Team Providers Care Inspector Aluminum Boat Name Role Phone Dilan Hernandez MD Primary Care Provider [phone] Reason for Referral * Radiology Services (Routine) - Closed Specialty Diagnoses / Procedures Referred By Contac t Referred To Contact Nuclear Medicine Diagnoses Gastric outlet obstruction Procedures NM GASTRIC EMPTYING SOLID Hollis Salgado MD Phone: tel: fax: Referral ID Status Reason Start Date Expiration Date Visits Re quested Visits Authorized [id number] Closed 07/28/2019 1 1 * Radiology Services (Routine) - Closed Specialty Diagnoses / Procedures Referred By Contac t Referred To Contact Diagnoses Gastric outlet obstruction Procedures FL UGI AIR W RUBBER CUTTER AND SHAPE CARVER Hollis Salgado MD Phone: tel: fax: Referral ID Status Reason Start Date Expiration Date Visits Re quested Visits Authorized [id number] Closed 07/28/2019 1 1 Reason for Visit * Reason Comments New Patient Visit adult hypertrophic p yloric stenosis * Consult (Routine) - Closed Specialty Diagnoses / Procedures Referred By Contac t Referred To Contact General Surgery Diagnoses Adult hypertrophic pyloric stenosis Michael Sullivan MD [address] [place] [address] [place] [address] Phone: tel: fax: [address] [address] Phone: tel: fax: Referral ID Status Reason Start Date Expiration Date Visits Re quested Visits Authorized [id number] Closed 1 1 Encounter Details Date Type Department Care Team (Late st Contact Info) Description 07/28/2019 15:00 EST Office Visit [address] [id number] Hollis Salgado MD [address] [place] [address] [address] [place] [address] Gastric outlet obstruction (Primary Dx) [...] 7:11 EDT documented as of this encounter Last Filed Vital Signs Vital Sign Reading Time Taken Comments Blood Pressure 97/63 07/28/2019 1508 EST Pulse 72 07/28/2019 1508 EST Temperature - - Respiratory Rate - - Oxygen Saturation - - Inhaled Oxygen Concentration - - Weight 59 kg (130 lb) 07/28/2019 1508 EST Height 154.9 cm (5' 1) 07/28/2019 1508 EST Body Mass Index 24.56 07/28/2019 1508 EST documented in this encounter Progress Notes * Hollis Salgado MD - 07/28/2019 1500 EST Division of General Surgery Date of Service: 07/28/2019 PROBLEM: 1. Gastric outlet obstruction HISTORY OF PRESENT ILLNESS: I am seeing Mallorie Burgess in the office today in consultation by Michael Sullivan MD for 1. Gastric outlet obstruction This is a 69 y.o. female Who has had a long history of peptic ulcer disease . She said that back [id number], she started to develop vomiting and postprandial bloating. CT scan showed a distended stomach. She had subsequent endoscopies which showed a stenosis with a very small pyloric opening at 3 to 4mm. She underwent dilatation, and this would help for a period of time, and then it would eventually recur. She has had at least 5 dilatations. Last upper endoscopy was performed in April, which showed a very small opening that was dilated to 10 mm. She was H. pylori negative. She used to use NSAIDs for headaches, but she does not use them now. She is also a chronic, heavy smoker at 1-2 packs a day for 40 years. Of note, CT scan back in February showed no evidence of cancer, and it did not show a dilated stomach. She has a 13-pound weight loss in the past year. She describes 3 hours of postprandial pain and bloating with nausea within the last week. She denies diarrhea. Social History Tobacco Use ??? Smoking status: Current Every Day Smoker Packs/day: 1.50 Types: Cigarettes ??? Smokeless tobacco: Never Used Substance Use Topics ??? Alcohol use: Not on file Comment: very rarely Past Medical History: Diagnosis Date ??? Cataracts, bilateral ??? Colon polyp ??? COPD (chronic obstructive pulmonary disease) (HCC-CMS) ??? Gastric outlet obstruction Documented by EGD 12/2014 for [facility]. ??? GERD (gastroesophageal reflux disease) ??? High risk medications (not anticoagulants) long-term use Nonsteroidal anti-inflammatory drugs ??? Lung disease ??? Peptic ulcer disease ??? Tobacco abuse Past Surgical History: Procedure Laterality Date ??? [...] not available; Helicobacter pylori negative biopsies Current Outpatient Medications: albuterol 90 mcg/actuation inhaler escitalopram oxalate (LEXAPRO) 10 mg tablet qaphsqnblxd-aznzopmug-ekymeosk (TRELEGY ELLIPTA) 100-62.5-25 mcg fluticasone/umeclidin/vilanter (TRELEGY ELLIPTA INHALATION) pramipexole (MIRAPEX) 1 mg tablet No current facility-administered medications for this visit. No Known Allergies REVIEW OF SYSTEMS: A ten point review of systems was performed and all were negative except as listed below. Patient Active Problem List Diagnosis ??? Gastric outlet obstruction ??? COPD (chronic obstructive pulmonary disease) ([facility]) ??? Tobacco abuse ??? Gastric outlet obstruction ??? Peptic ulcer disease OBJECTIVE: Vitals: 07/28/19 1508 BP: 97/63 Pulse: 72 Weight: 59 kg (130 lb) Height: 154.9 cm (61) Body mass index is 24.56 kg/m??. She is afebrile. General: No acute distress. HEENT: Normal. Neck: Supple. Skin: Normal. Lungs: Clear, bilaterally. Heart: Regular rate and rhythm. Abdomen: Soft, nondistended, nontender, no masses, no organomegaly. Vascular: Normal. Musculoskeletal: Normal. Neurologic: Normal. ASSESSMENT & PLAN: A 69 y.o. female With likely a gastric outlet obstruction from chronic ulcer disease. She has lost some weight as well. She likely at some point will need surgery, if she cannot have a dilatation to open this area. She does not have pyloric stenosis amenable to a myotomy. This is more likely scarring from chronic peptic ulcer disease. She will need either resection or potentially just a bypass. She does not have anypain and, therefore, bypass could work on the stricture. But first, we will try to perform endoscopic dilatation. Will send her to our combine operator and may need to be a series of dilatations. If that does not look like it will work long-term, then she will need surgery. We will see her back after the dilatations are performed. --Hollis Salgado MD CC: Primary Care Provider: Dilan Hernandez MD Referring Provider: Michael Sullivan MD . documented in this encounter Plan of Treatment Not on file documented as of this encounter Results * FL UGI AIR W RUBBER CUTTER AND SHAPE CARVER (10/19/2019 10:04 EDT) Anatomical Region Laterality Modality Body Radio Fluoroscop y 10/19/2019 13:3 5 EDT Impressions 10/19/2019 13:35 EDT High-grade gastric outlet obstruction. Narrative 10/19/2019 13:35 EDT FL UGI AIR W RUBBER CUTTER AND SHAPE CARVER ??10/19/2019 8:00 AM Clinical History/Comments: evaluate transit [...] MD - 10/19/2019 FL UGI AIR W RUBBER CUTTER AND SHAPE CARVER 10/19/2019 8:00 AM Clinical History/Comments: evaluate transit [...] MD IMG FLUOROSCOPY O RDERABLES Final Result * NM GASTRIC EMPTYING SOLID (08/18/2019 12:40 EDT) Anatomical Region Laterality Modality Body Nuclear Medicine 09/07/2019 13:5 2 EDT Impressions 09/07/2019 13:54 EDT Delayed gastric emptying for solid food. References: Tereza et al. [place] Journal of Gastroenterology 2000. Emilie et al. Gastroenterology [address] [place] Journal of Gastroenterology 2006. I have personally [...] for solid food. References: Tereza et al. [place] Journal of Gastroenterology 2000. Emilie et al. Gastroenterology [address] [place] Journal of Gastroenterology 2006. I have personally reviewed the images and the above interpretation andagree with the findings. Hollis Salgado MD IMG NM ORDERABLES Final Result documented in this encounter Visit Diagnoses Diagnosis Gastric outlet obstruction- Primary Acquired hypertrophic pyloric stenosis Gastric outlet obstruction Acquired hypertrophic pyloric stenosis Gastric outlet obstruction Acquired hypertrophic pyloric stenosis documented in this encounter Historical Medications * This list may reflect changes made after this encounter. escitalopram oxalate (LEXAPRO) 10 mg tablet Take 1 Tablet by mouth daily. pramipexole (MIRAPEX) 1 mg tablet Take 1 Tablet by mouth 2 times daily. fluticasone-umec lidin-vilanter (TRELEGY ELLIPTA) 100-62.5-25 mcg Inhale 1 Puff as directed daily before breakfast. albuterol 90 mcg/actuation inhaler Inhale 2 Puffs as directed every 4 hours as needed for Wheezing. Uses 1 x day ranitidine (ZANTAC) 150 mg tablet Take 150 mg by mouth 2 times daily. 08/09/2019 fluticasone/umec lidin/vilanter (TRELEGY ELLIPTA INHALATION) Inhale as directed. 02/22/2020 added in this encounter Care Teams Inspector Aluminum Boat Relationship Specialty Start Date End Date Dilan Hernandez MD [address] [place] [address],[address] [place] [address] PCP - General 07/28/19 documented as of this encounter
--- OUTSIDE RECORDS SUMMARY | 2024-07-07 20:10 | XMS_ITS | Encounter Summary ---
Author Organization [facility] Address [address] [place] [address] Care Team Providers Care Skills Instructor Name Role Phone Unknown, Provider Primary Care Provider Unava ilable Encounter Details Date Type Department Care Team (Late st Contact Info) Description 10/12/2002 Results Only [facility] [address] [place] [address] Dawson Walker MD Social History Tobacco Use [...] Priority Date/Time Associated Diagnosis Comments CYTOPATHOLOGY Routine 10/12/2002 0:00 EDT documented in this encounter Results * CYTOPATHOLOGY (10/12/2002 0:00 EDT) Pathology Report: CYTOPATHOLOGY REPORT Reports generated via electronic interface contain original data; however they are lacking the format of the original report. Caution should be taken when reading/interpreti ng unformatted reports. Name: ? MALLORIE COUCH ? Accession #: ? [id number] : ? 1950 (Age: 52) ??F ?Collect Date: ? 10/12/2002 Location: ? [facility] ? Receive Date: ? 10/14/2002 Provider: ?DAWSON WALKER MD Copy to: ? Specimen/Source: ?ThinPrep Pap Test, Cervix/Endocervix Last Menstrual Period: ? Hormonal/Contracep tive Status: ? Yes Other: ? HPVA - HPV testing requested if ASC-US on the current ThinPrep Pap test. ? SPECIMEN ADEQUACY ? Satisfactory for Evaluation - transformation zone component present GENERAL CATEGORIZATION ? Negative for Intraepithelial Lesion or Malignancy ? Document reviewed and electronically signed by: ? MELIA Mccurdy(ASCP) ? Report Date: ??10/20/2002 15:19 End of Report [facility] 10/12/2002 10/14/2002 us Dawson Walker MD PATHOLOGY ORDERABLES Final Res ult [facility] [address] [place] [address] documented in this encounter Visit Diagnoses Not on filedocumented in this encounter Care Teams Skills Instructor Relationship Specialty Start Date End Date Unknown, Provider, PCP - General 04/10/10 07/27/19 documented as of this encounter
--- OUTSIDE RECORDS SUMMARY | 2024-07-07 20:10 | XMS_ITS | Encounter Summary ---
Author Organization [facility] Address [address] [place] [address] Care Team Providers Care National Sales Executive Name Role Phone Dilan Hernandez MD Primary Care Provider [phone] Encounter Details Date Type Department Care Team (Late st Contact Info) Description 02/10/2020 Orders Only [facility] General Surgery - [facility] [address] [place], [place] [phone] Hollis Salgado MD [address] [facility], [address] [place] [phone] Encounter for preprocedure screening laboratory testing for COVID-19 (Primary Dx) Social History Tobacco Use Types [...] as of this encounter Visit Diagnoses Diagnosis Encounter for preprocedure screening laboratory testing for COVID-19- Primary documented in this encounter Care Teams National Sales Executive Relationship Specialty Start Date End Date Dilan Hernandez MD [address] [place] [address],[address] [place] [id number] PCP - General 07/28/19 documented as of this encounter
--- OUTSIDE RECORDS SUMMARY | 2024-07-07 20:10 | XMS_ITS | Encounter Summary ---
Author Organization [facility] Address [address] [place] [address] Care Team Providers Care Technical Documentation Specialist Name Role Phone Dilan Hernandez MD Primary Care Provider [phone] Reason for Visit * Reason Onset Date Comments Follow-up Diagnostic PSG 07/29/2019 Encounter Details Date Type Department Care Team (Late st Contact Info) Description 07/29/2019 Telephone [facility] General Surgery - [facility] [address] [place], [place] [phone] Hollis Salgado MD [address] [facility], [facility] [address] [place] [address] Follow-up Diagnostic PSG Social History [...] * Telephone Encounter - Joselyn Fulton - 07/29/2019 0846 EST Called patient gastric emptying scan scheduled 08/17 prep nothing to eat or drink after midnight,, Patient will call back once GI contacts her then we will schedule ugi same day with . documented in this encounter Plan of Treatment Not on file documented as of this encounter Visit Diagnoses Not on filedocumented in this encounter Care Teams Technical Documentation Specialist Relationship Specialty Start Date End Date Dilan Hernandez MD [address] [place] [address] ,[address] [place] [address] PCP - General 07/28/19 documented as of this encounter
--- OUTSIDE RECORDS SUMMARY | 2024-07-07 20:10 | XMS_ITS | Encounter Summary ---
Author Organization [facility] Address [address] [place] [address] Care Team Providers Care Breed To Wean Production Technician Name Role Phone Unknown, Provider Primary Care Provider Unava ilable Encounter Details Date Type Department Care Team (Late st Contact Info) Description 04/13/2019 Results Only [facility] [phone] Will Sullivan MD [address] [place] [phone] Social History Tobacco Use Types Packs/Day [...] Date/Time Associated Diagnosis Comments SURGICAL PATHOLOGY Routine 04/13/2019 23 :07 EST documented in this encounter Results * SURGICAL PATHOLOGY (04/13/2019 23:07 EST) Pathology Report: SURGICAL PATHOLOGY REPORT Reports generated via electronic interface contain original data; however they are lacking the format of the original report. Caution should be taken when reading/interpret ing unformatted reports. Name: ? MALLORIE COUCH ? Accession #: ? [id number] ? : ? 1950 (Age: 69) ??F ? Collect Date: ? 04/13/2019 ? Location: ? [facility] ? Receive Date: ? 04/13/2019 ? Provider: WLIL SULLIVAN MD Copy to: ? Final Pathologic Diagnosis: A. COLON, RIGHT, POLYP, BIOPSY: - Colonic mucosa with no significant diagnostic abnormality. - No definite polyp identified. - Deeper sections x3 examined. B. COLON, RANDOM, BIOPSIES: - Colonic mucosa with no significant diagnostic abnormality. Document reviewed and electronically signed by: KATIE VANG MD Report ??Date: 04/15/2019 10:29 By the signature above, the attending physician certifies that he/she has personally conducted a gross and/or microscopic examination of the described specimens and rendered or confirmed the above diagnosis. Specimen(s) Received: A. ??Right colon polyp B. ??Random colon biopsies Clinical History: Diarrhea, diverticulosis, R colon polyp Gross Description: A. ?Received in formalin labelled with proper patient identification (initials W, S) and right colon polyp is a single pink-katz tissue fragment (0.3 x 0.3 x 0.2 cm). Submitted intact in block A1. B. ?Received in formalin labelled with proper patient identification (initials W, S) and random colon biopsies are two pink-katz tissues (0.2 x 0.2 x 0.2 cm and 0.4 x 0.3 x 0.2 cm). Entirely submitted in block B1. SARA Bingham (ASCP) 04/14/2019 8:08 AM End of Report [facility] 04/13/2019 23:0 7 EST 04/13/2019 23:07 EST us Will Sullivan MD PATHOLOGY ORDERABLES Final Res ult [facility] [address] [place] [address] documented in this encounter Visit Diagnoses Not on filedocumented in this encounter Care Teams Breed To Wean Production Technician Relationship Specialty Start Date End Date Unknown, Provider, PCP - General 04/10/10 07/27/19 documented as of this encounter
--- OUTSIDE RECORDS SUMMARY | 2024-07-07 20:10 | XMS_ITS | Encounter Summary ---
Author Organization [facility] Address [address] [place] [address] Care Team Providers Care Education Director Name Role Phone Unknown, Provider Primary Care Provider Unava ilable Reason for Visit * Reason Onset Date Comments Medication Problem 07/08/2012 Encounter Details Date Type Department Care Team (Late st Contact Info) Description 07/08/2012 Refill [facility] Family Medicine [address] [phone] Cha Lopez LPN Medication Problem Social History Tobacco Use Types Packs/Day Years Used Date Smoking Tobacco: Never Assessed Comments Unknown Sex and Gender Information Value Date Recorded Sex Assigned at Female 03/25/2020 22:02 EDT Legal Sex Female 18:12 EST Gender Identity Female 08/02/2019 11:38 EST Sexual Orientation Asexual 03/25/2020 22 :02 EDT documented as of this encounter Miscellaneous Notes * Telephone Encounter - Cha Lopez LPN - 09/09/2012 1003 EDT Left message to call back documented in this encounter Plan of Treatment Not on file documented as of this encounter Visit Diagnoses Not on filedocumented in this encounter Care Teams Education Director Relationship Specialty Start Date End Date Unknown, Provider, PCP - General 04/10/10 07/27/19 documented as of this encounter
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
[2024-07-07] MEDS: HYDROmorphone 2 MG/ML SYR 0.5 MG IVP ×2 (20:24→21:53)
[2024-07-07] MEDS: Omnipaque 350 MG/ML 100 ML BTL IJ (20:32)
[2024-07-07] MEDS: Normal Saline - Diluent 50 ML VIAL IJ (20:38)
[2024-07-07] MEDS: Normal Saline Flush 10 ML SYR IVP (20:39)
[2024-07-07 20:41] LABS: Lipase 31 U/L (<78)
[2024-07-07 21:23] LABS: Abs Immature Grans 0.12 10^3/uL (0.0-0.06); Absolute Basophil Count 0.06 10^3/uL (0.0-0.2); Absolute Lymphocyte Count 1.46 10^3/uL (1.2-3.4); Absolute Monocyte Count 0.89 10^3/uL (0.1-0.8); Absolute Neutrophil Count 17.75 10^3/uL (1.2-6.7); Basophils % 0.3 %; Eosinophils % 0.2 %; HCT 44.2 % (36.0-46.0); HGB 14.7 g/dL (11.2-15.7); Immature Grans % 0.6 %; Lymphocytes % 7.2 %; MCHC 33.3 % (32.0-36.0); MCV 87 fL (80-95); MPV 9.3 fL (8.0-11.0); Monocytes % 4.4 %; Neutrophils % 87.3 %; Platelet Count 436 10^3/uL (130-400); RBC 5.07 10^6/uL (3.93-5.22); RDW 14.5 % (11.7-14.6); RDW-SD 46.5 fL; WBC 20.33 10^3/uL (4.4-10.8)
[2024-07-07 21:24] LABS: Absolute Eosinophil Count 0.04 10^3/uL (0.0-0.7)
[2024-07-07 21:30] LABS: Lactate 0.7 mmol/L (<or=2.0)
--- NOTE | 2024-07-07 21:31 | DI.VRAD_ITS ---
PROCEDURE INFORMATION: Exam: CT Abdomen And Pelvis With Contrast Exam date and time: 07/07/2024 8:30 PM Age: 74 years old Clinical indication: Left abdominal pain; Prior surgery; date: 6+ months: Hyst, bypass gastrojejunostomy, tubal ligation, pyloroplasty TECHNIQUE: Imaging protocol: Computed tomography of the abdomen and pelvis with contrast. Contrast material: OMNIPAQUE 350; Contrast volume: 75 ml; Contrast route: INTRAVENOUS (IV); COMPARISON: CT ABD/PELVIS W/ CONTR NO PO 05/24/2024 7:04 PM FINDINGS: Lungs: No acute infiltrate in either lung base. Liver: 4 mm cyst within the lateral right lobe of the liver, otherwise normal liver. Gallbladder and biliary ducts: Normal. No calcified stones. No ductal dilation. Pancreas: Normal. No ductal dilation. Spleen: Normal. No splenomegaly. Adrenal glands: Normal. No mass. Kidneys and ureters: No hydronephrosis. No calcified renal or ureteral stones. No perinephric stranding or perinephric fluid. Stomach and bowel: Left abdominal wall spigelian hernia containing small incarcerated small bowel loop with associated small bowel obstruction (coronal images 16-25 / axial images 47-57, series 8 / sagittal images 52-60). Distal small bowel and colon are non-dilated. A few scattered colon diverticuli without evidence of diverticulitis. Interposition of bowel anterior to the liver. Prior gastric surgery. Appendix: Normal appendix. Intraperitoneal space: No free air. No significant fluid collection. Vasculature: The abdominal aorta is normal in caliber without aneurysm or dissection. Scattered arterial calcifications. Lymph nodes: No enlarged lymph nodes. Urinary bladder: Unremarkable as visualized. Reproductive: Prior hysterectomy. Bones/joints: Mild spinal degenerative changes. Retrolisthesis of L5 with respect to L4. Lumbar levoscoliosis. Soft tissues: Left abdominal wall spigelian hernia containing small incarcerated small bowel loop with associated small bowel obstruction (coronal images 16-25 / axial images 47-57, series 8 / sagittal images 52-60). Small fat-containing umbilical hernia. IMPRESSION: 1. Left abdominal wall spigelian hernia containing small incarcerated small bowel loop with associated small bowel obstruction (coronal images 16-25 / axial images 47-57, series 8 / sagittal images 52-60). 2. A few scattered colon diverticuli without evidence of diverticulitis. 3. THIS REPORT CONTAINS FINDINGS THAT MAY BE CRITICAL TO PATIENT CARE. The findings were verbally communicated via telephone conference with Aravind Stoddard at 9:26 PM EST on 07/07/2024. The findings were acknowledged and understood. Dictated and Authenticated by: Juan C Monique MD. Orderin Arlyn Nazario MD
[2024-07-07 21:37] LABS: Magnesium 2.1 mg/dL (1.8-2.4)
[2024-07-07 21:41] LABS: ALT 29 U/L (14-59); AST 19 U/L (15-37); Albumin 3.8 g/dL (3.4-5.0); Alkaline Phosphatase 123 U/L (46-116); BUN 17 mg/dL (7-18); Bilirubin, Total 0.38 mg/dL (0.2-1.0); CREATININE 1.1 mg/dL (0.55-1.02); Calcium 11.2 mg/dL (8.5-10.1); Chloride 92 mmol/L (98-107); Estimated GFR 53.39 (mL/min/1.73m2); Glucose 174 mg/dL (74-106); Sodium 139 mmol/L (136-145); Total Protein 8.1 g/dL (6.4-8.2)
[2024-07-07 21:42] LABS: Anion Gap 1.99999 mmol/L (3-11); CO2 > 45.0 mmol/L (21.0-32.0)
[2024-07-07 21:43] LABS: PTT Activated 22.6 sec (20.6-30.2); Prothrombin Time 9.9 sec (9.1-11.1)
[2024-07-07 21:43] LABS: Potassium 2.9 mmol/L (3.5-5.1)
[2024-07-07] MEDS: PIPERACILLIN/TAZO 4.5 GM in Normal Saline 100 ML IVPB (21:54)
== END 2024-07-07 22:26 | disposition critical access hospital (66) ==
PROVIDERS: Emergency Provider Emergency Medicine; PCP Nurse Practitioner Family
DX: K56.609 Unspecified intestinal obstruction, unspecified as to partial versus complete obstruction (principal); K43.9 Ventral hernia without obstruction or gangrene; J44.9 Chronic obstructive pulmonary disease, unspecified; Z99.81 Dependence on supplemental oxygen; Z86.73 Personal history of transient ischemic attack (TIA), and cerebral infarction without residual deficits; F17.210 Nicotine dependence, cigarettes, uncomplicated
CPT/HCPCS: 36415; 80053; 83690; 96374; 96375; 96376; 99285; 74177; 83605; 83735; 85025; 85610; 85730; J1171; J2543; J3490